=== PATIENT | female | born 1975 | race Caucasian/White ===

== ENCOUNTER 2023-11-01 10:47 | Emergency (ER) | payer OTHER, SELFPAY ==
[2023-11-01 12:23] VITALS: BP 115/62; PULSE 84; RESP 16; TEMP 35.8; O2SAT 97; BMI 22.6
--- NOTE | 2023-11-01 12:26 | ED_ITS ---
HPI - General Adult General Chief complaint: Nausea/Vomiting/Diarrhea Stated complaint: Chest pressure, vomiting Related Data Home Medications Medication Instructions Recorded Confirmed acamprosate 333 mg tablet,delayed 666 mg PO TID 11/01/23 11/01/23 release bupropion HCl 150 mg 24 hr tablet, 150 mg PO QAM 11/01/23 11/01/23 extended release cholecalciferol (vitamin D3) 50 50 mcg PO DAILY 11/01/23 11/01/23 mcg (2,000 unit) tablet citalopram 40 mg tablet 40 mg PO DAILY 11/01/23 11/01/23 clonidine HCl 0.1 mg tablet 0.1 mg PO TID PRN Anxiety 11/01/23 11/01/23 folic acid 1 mg tablet 1 mg PO DAILY 11/01/23 11/01/23 hydroxyzine HCl 25 mg tablet 25 mg PO Q6H PRN anxiety 11/01/23 11/01/23 lipase 2,600-protease 2 cap PO DAILY@1600 11/01/23 11/01/23 8,800-amylase 15,200 unit capsule, delayed rel (Pancreaze) losartan 50 mg tablet 50 mg PO DAILY 11/01/23 11/01/23 magnesium oxide 400 mg (241.3 mg 400 mg PO BID 11/01/23 11/01/23 magnesium) tablet pantoprazole 40 mg tablet,delayed 40 mg PO DAILY 11/01/23 11/01/23 release thiamine HCl (vitamin B1) 100 mg 100 mg PO DAILY 11/01/23 11/01/23 tablet trazodone 100 mg tablet 100 mg PO BEDTIME 11/01/23 11/01/23 Allergies Allergy/AdvReac Type Severity Reaction Status Date / Time No Known Allergies Allergy Verified 11/01/23 10:54 REPLACED BY [facility] Past Medical History Onset Date is defined in the Problem List Problems that require an onset date and time if occurred within 24 hrs of arrival to the ED Aortic Dissection and Rupture; Neurologic impairment; Cardiopulmonary Arrest; Endotracheal Intubation; Insertion or Replacement of Mechanical Circulatory Assist Device Medical History Pancreatic insufficiency Gastroesophageal reflux disease Essential hypertension Mood disorder Cannabis use disorder Hepatitis C Tobacco use disorder Alcohol use disorder Social History Social History Alcohol intake: current Alcohol intake frequency: 3 or more drinks per day Alcohol type: hard liquor Patient Tobacco Use Status: Never used Tobacco Smoked in Last 30 Days: Yes Use of substances other than those prescribed or required for medical reasons: Yes Substance Use Type: Crack/Cocaine and Marijuana Advance Directives: No Advance Directives Information Provided: No Nutrition Risks: No Nutritional Risk Patient : No Physical Exam ED Vital Signs: Vital Signs - 24 hr 11/01/23 12:23 Temperature 96.5 F L Pulse Rate 84 Respiratory Rate 16 Blood Pressure 115/62 Pulse Oximetry 97 Oxygen Delivery Method Room Air BMI result Body Mass Index 22.6 Course Course Course Narrative: rMe: 48-YEAR-OLD FEMALE WITH PMH OF ALCOHOL ABUSE, PANCREATITIS, HYPOMAGNEMIA, HYPOKALEMIA PRESENTS TO ED FOR VOMITING DIARRHEA FOR COUPLE OF DAYS AND ALSO EPIGASTRIC PAIN FOR A COUPLE OF DAYS. EKG READY ORDERED. LABS ORDERED. VITAL SIGNS STABLE PAIN 2:43pm: Patient labs shows transaminitis. Charge nurse Audra made aware to bring patient back into the ED. 6:06pm: Patient left the ED. patient was called and informed she should return to ED immediately due to elevated liver enzymes and also possibility or ultrasound stating cholecystitis. Patient states she will come back to the ER. Medical Decision Making Lab Data 11/01/23 13:24 11/01/23 13:24 Labs: Lab Results 11/01/23 11/01/23 Range/Units 13:24 15:45 WBC 5.8 (4.8-10.8) X10*3/uL RBC 3.88 L (4.20-5.50) X10*6/uL Hgb 12.8 (12.0-16.0) g/dl Hct 36.9 L (37.0-47.0) % MCV 95.1 (80.0-98.0) fL MCH 33.0 (27.0-33.0) pg MCHC 34.7 (31.0-35.0) g/dl RDW 14.5 (11.0-16.0) % Plt Count 189 (160-400) X10*3/uL MPV 9.5 (9.4-12.3) fL Immature Gran % (Auto) 0.2 (0.0-0.4) % Neut % (Auto) 60.5 (45-73) % Lymph % (Auto) 31.1 (20-40) % [place] % (Auto) 6.0 (2-11) % Eos % (Auto) 1.2 (0-4) % Baso % (Auto) 1.0 (0-2) % Lymph # (Auto) 1.8 (1.2-4.9) X10*3/uL [place] # (Auto) 0.4 (0.1-1.2) X10*3/uL Eos # (Auto) 0.1 (0.0-0.4) X10*3/uL Baso # (Auto) 0.1 (0.0-0.2) X10*3/uL Abs Immat Gran (auto) 0.01 (0.00-0.03) X10*3/uL Absolute Neuts (auto) 3.5 (2.0-8.3) x10*3/uL Absolute Nucleated RBC 0.000 (0.0-0.012) X10*3/uL Nucleated RBC % (auto) 0.0 (0.0-0.2) /100WBC PT 15.9 H (11.1-13.3) SEC INR 1.3 H (0.9-1.1) APTT 24.8 L (26.0-36.4) SEC Sodium 139 (135-145) mmol/L Potassium 3.7 (3.3-5.1) mmol/L Chloride 106 (96-108) mmol/L Carbon Dioxide 22 (22-29) mmol/L Anion Gap 15 (12-20) BUN 16 (9-16) mg/dL Creatinine 0.73 (0.5-1.4) mg/dL Estim Creat Clear Calc 73.7 Estimated GFR > 60 Random Glucose 114 (60-115) mg/dL Calcium 8.6 (8.4-10.2) mg/dL Magnesium 1.3 L* (1.6-2.6) mg/dL Total Bilirubin 1.9 H (0.0-1.0) mg/dL AST 1294 H (5-31) U/L ALT 1283 H (0-31) U/L Alkaline Phosphatase 225 H (39-117) U/L Total Creatine Kinase 75 (26-140) U/L Troponin I High Sens < 2.7 (<3.5-17.0) ng/L Total Protein 6.6 (6.5-8.0) g/dL Albumin 3.5 (3.5-5.0) g/dL Lipase 38 (8-78) U/L Ethyl Alcohol 172 mg/dL Hepatitis A IgM Ab Nonreactive (Nonreactive) Hep Bs Antigen Negative (Negative) Hep Bs Antibody REACTIVE (Nonreactive) Hep B Core Total Ab Nonreactive (Nonreactive) Hepatitis C Ab (EIA) Reactive H (Nonreactive) Discharge Plan Discharge Clinical Impression: Transaminitis Patient Disposition: Left W/O Completing Treatment Prescriptions: No Action losartan 50 mg tablet 50 mg PO DAILY clonidine HCl 0.1 mg tablet 0.1 mg PO TID PRN (Reason: Anxiety) citalopram 40 mg tablet 40 mg PO DAILY thiamine HCl (vitamin B1) 100 mg tablet 100 mg PO DAILY magnesium oxide 400 mg (241.3 mg magnesium) tablet 400 mg PO BID trazodone 100 mg tablet 100 mg PO BEDTIME pantoprazole 40 mg tablet,delayed release (DR/EC) 40 mg PO DAILY folic acid 1 mg tablet 1 mg PO DAILY hydroxyzine HCl 25 mg tablet 25 mg PO Q6H PRN (Reason: anxiety) bupropion HCl 150 mg tablet extended release 24 hr 150 mg PO QAM acamprosate 333 mg tablet,delayed release (DR/EC) 666 mg PO TID cholecalciferol (vitamin D3) 50 mcg (2,000 unit) tablet 50 mcg PO DAILY Pancreaze 2,600-8,800- 15,200 unit Capsule,Delayed Release(Dr/Ec) 2 cap PO DAILY@1600 Discharge Date/Time: 11/01/23 18:05
--- NOTE | 2023-11-01 13:55 | PC.NURSE ---
rec crit lab for pt Mg 1.3. Wilbert aware, Charge aware as pt is currently in [facility]
--- NOTE | 2023-11-01 18:03 | PC.NURSE ---
Spoke with patient to return to ER- wanting to hold the bed for over an hour- unable to accommodate- pt is not returning
== END 2023-11-01 18:05 | disposition left against medical advice (07) ==
PROVIDERS: Emergency Provider Emergency Medicine; PCP Internal Medicine
DX: R74.01 Elevation of levels of liver transaminase levels (principal); F10.10 Alcohol abuse, uncomplicated; Y90.6 Blood alcohol level of 120-199 mg/100 ml; R11.2 Nausea with vomiting, unspecified; B19.20 Unspecified viral hepatitis C without hepatic coma; I10 Essential (primary) hypertension; F17.200 Nicotine dependence, unspecified, uncomplicated; Z79.899 Other long term (current) drug therapy
CPT/HCPCS: 36415; 76705; 80053; 80307; 82550; 83690; 83735; 84484; 85025; 85610; 85730; 86704; 86706; 86709; 86803; 87340; 93005; 99283; 99284

== ENCOUNTER → 2023-11-01 10:54 | Outpatient (BNV) | payer OTHER, SELFPAY | PROVIDERS: PCP Internal Medicine; Visit Provider Internal Medicine Cardiovascular Disease | DX: R94.31 Abnormal electrocardiogram [ECG] [EKG] (principal); R07.9 Chest pain, unspecified | CPT/HCPCS: 93010 ==

== ENCOUNTER 2023-11-01 18:34 | Inpatient (IN) | payer OTHER, SELFPAY ==
[2023-11-01 19:20] VITALS: BP 111/77; PULSE 78; RESP 18; TEMP 36.3; O2SAT 96; BMI 22.3
--- NOTE | 2023-11-01 19:27 | ED.GENADULT ---
HPI - General Adult General Chief complaint: Recheck/Abnormal Lab/Rx Stated complaint: abnormal labs, lwt told to return Time Seen by Provider: 11/01/23 19:51 Source: patient Mode of arrival: ambulatory Limitations: no limitations History of Present Illness HPI narrative: 48 yold female with pmh of Hepataitis and Alcohol abuse presents to the ED for epigastric abdominal pain, nausea, vomitting, and diarrhea. Patient last drink was this morning. patient drinks daily. Related Data Home Medications Medication Instructions Recorded Confirmed acamprosate 333 mg tablet,delayed 666 mg PO TID 11/01/23 11/01/23 release bupropion HCl 150 mg 24 hr tablet, 150 mg PO QAM 11/01/23 11/01/23 extended release cholecalciferol (vitamin D3) 50 50 mcg PO DAILY 11/01/23 11/01/23 mcg (2,000 unit) tablet citalopram 40 mg tablet 40 mg PO DAILY 11/01/23 11/01/23 clonidine HCl 0.1 mg tablet 0.1 mg PO TID PRN Anxiety 11/01/23 11/01/23 folic acid 1 mg tablet 1 mg PO DAILY 11/01/23 11/01/23 hydroxyzine HCl 25 mg tablet 25 mg PO Q6H PRN anxiety 11/01/23 11/01/23 lipase 2,600-protease 2 cap PO DAILY@1600 11/01/23 11/01/23 8,800-amylase 15,200 unit capsule, delayed rel (Pancreaze) losartan 50 mg tablet 50 mg PO DAILY 11/01/23 11/01/23 magnesium oxide 400 mg (241.3 mg 400 mg PO BID 11/01/23 11/01/23 magnesium) tablet pantoprazole 40 mg tablet,delayed 40 mg PO DAILY 11/01/23 11/01/23 release thiamine HCl (vitamin B1) 100 mg 100 mg PO DAILY 11/01/23 11/01/23 tablet trazodone 100 mg tablet 100 mg PO BEDTIME 11/01/23 11/01/23 Allergies Allergy/AdvReac Type Severity Reaction Status Date / Time No Known Allergies Allergy Verified 11/01/23 10:54 Review of Systems Review of Systems: Epigastric pain, abdominal pain, nausea, vomitting, Yes all other systems are reviewed and are negative PMFSH Past Medical History Onset Date is defined in the Problem List Problems that require an onset date and time if occurred within 24 hrs of arrival to the ED Aortic Dissection and Rupture; Neurologic impairment; Cardiopulmonary Arrest; Endotracheal Intubation; Insertion or Replacement of Mechanical Circulatory Assist Device Medical History Pancreatic insufficiency Gastroesophageal reflux disease Essential hypertension Mood disorder Cannabis use disorder Hepatitis C Tobacco use disorder Alcohol use disorder Social History Social History Alcohol intake: current Alcohol intake frequency: 3 or more drinks per day Alcohol type: hard liquor Patient Tobacco Use Status: Never used Tobacco Smoked in Last 30 Days: Yes Use of substances other than those prescribed or required for medical reasons: Yes Substance Use Type: Crack/Cocaine and Marijuana Advance Directives: No Advance Directives Information Provided: No Nutrition Risks: No Nutritional Risk Patient : No Physical Exam ED Vital Signs: Vital Signs - 24 hr 11/01/23 19:20 11/01/23 19:50 Temperature 97.4 F 98.1 F Pulse Rate 78 77 Respiratory Rate 18 18 Blood Pressure 111/77 116/59 L Pulse Oximetry 96 98 Oxygen Delivery Method Room Air Room Air BMI result Body Mass Index 22.3 Const General: cooperative, healthy appearing, comfortable, no acute distress, well developed, alert and awake Orientation/consciousness: oriented to person, oriented to place, oriented to time and patient oriented x3 HENMT Head: Yes normal to inspection, Yes No palpable skull fracture present, Yes normocephalic and Yes atraumatic Eyes General: appearance normal, both eyes and all related structures Neck Neck: Yes normal visual inspection, Yes full ROM, Yes no lymphadenopathy, Yes no meningeal signs, Yes trachea midline, Yes supple, No anterior neck swelling and No tender Chest Chest palpation & inspection: normal inspection of the chest and normal palpation of entire chest wall Resp Effort & Inspection: normal respiratory effort and able to speak in complete sentences Auscultation: clear to auscultation bilaterally Cardio Jugular venous distension: no JVD Heart sounds: S1 normal heart sound present and S2 normal heart sound present GI Inspection: Yes normal to inspection Palpation (GI): Soft to palpation, not firm, Tenderness to palpation present (GI) in the epigastrum, no guarding and not rigid General: Yes no CVA tenderness Back/Spine/Pelvis Back: no CVA tenderness Skin General skin exam: no rashes or lesions noted, elasticity normal and turgor normal Neuro General: oriented to person, oriented to place, oriented to time, patient oriented x3, gait normal, tone normal, moves all extremities, Normal light touch and pain sensation, no meningeal signs, no focal motor deficits, CN's II-XI intact bilaterally and normal sensation to monofilament Extrem General: Yes normal to inspection and Yes full ROM Psych Appearance: grossly normal, well kempt and not disheveled Course Course Course Narrative: NILE; 48-year-old female return to the ED after being informed of elevated liver enzymes and abnormal ultrasound which shows possible cholecystitis. Patient is in transaminitis. Patient will be placed in bed. Will consult construction administrative assistant. Medications Administered Generic Name Dose Route Start Last Admin Trade Name Freq PRN Reason Stop Dose Admin Piperacillin Sod/Tazobactam 100 mls @ 200 mls/hr 11/01/23 22:00 11/02/23 04:21 Sod 4.5 gm/ Sodium Chloride IV Infused Q6H SAMANTHA Infusion Sodium Chloride 3 ml 11/02/23 00:00 11/02/23 00:57 0.9 % Sodium Chloride Flush 3 Ml Syringe IVFLUSH 3 ml QSHIFT SAMANTHA Administration Discontinued Medications Generic Name Dose Route Start Last Admin Trade Name Freq PRN Reason Stop Dose Admin Magnesium Sulfate 2 gm in 50 mls @ 25 mls/hr 11/01/23 21:03 11/01/23 23:35 Magnesium Sulfate/H2o IV 11/01/23 23:02 Infused ONCE ONE Infusion Sodium Chloride 1,000 mls @ 999 mls/hr 11/01/23 21:10 11/01/23 22:51 Ns IV 11/01/23 22:10 Infused .Q1H1M ONE Infusion Phenobarbital Sodium 200.4 mg 11/01/23 21:30 11/01/23 21:42 Phenobarbital Sodium 130 Mg/Ml Im Once IM 11/01/23 21:31 200.4 mg ONCE ONE Administration Protocol Phenobarbital Sodium 150.3 mg 11/02/23 00:30 11/02/23 03:45 Phenobarbital Sodium 130 Mg/Ml Vial Im Q3hx2 IM 11/02/23 03:31 150.3 mg Q3H SAMANTHA Administration Protocol Thiamine HCl 100 mg 11/01/23 21:04 11/01/23 21:45 Thiamine Hcl 100 Mg Tablet PO 11/01/23 21:05 100 mg ONCE ONE Administration Medical Decision Making Medical Decision Making [facility] Narrative: 48 yold female with pmh of hepatitis and alcohol abuse presents to the ED epigastric pain, nausea, vomitting, and diarrhea. Labs shows transimitis and Ultrasound shows possible cholecysitis. Case Discussed with Dr. Jerez of Technical Support Analyst who recommends patient be admitted to hospitatlists for MRCP. Spoke with Dr. Tilley of Surgery recommends patient be admitted to hospiatlists and he will follow the case. Phenobarbital and Abdominal CT scan ordered as recommend by Dr. Kam Differential Diagnosis Differential Diagnoses: The differential diagnosis associated with the presentation includes (pancreatitis, cholecytiitis, alcohol abuse, ) Admission/Observation Consideration of admission/observation: Escalation of care including admission/observation considered Consult Healthcare Provider Management of the patient was discussed with: Hospitalist (Dr. Kam) and Type Copy Examiner (Dr. tilley oF surgery, Dr. Jerez oF Gastroenterolgoy) Lab Data [facility] Lab Attestation statement: I reviewed the patient's lab results. 11/02/23 07:01 11/02/23 07:01 Labs: Lab Results 11/01/23 Range/Units 20:36 Acetaminophen < 3 (<30) mcg/mL Independent Interpretation I performed an independent interpretation of an: Ultrasound Radiology Impression Discussion of test interpretation with radiology: I have reviewed the radiologist's reading. External Record Review External record reviewed: Other (Prior ED visit) Discharge Plan Discharge Clinical Impression: Transaminitis Patient Disposition: Admitted As Inpatient
[2023-11-01 19:50] VITALS: BP 116/59; PULSE 77; RESP 18; TEMP 36.7; O2SAT 98
--- NOTE | 2023-11-01 20:45 | PM.IMHP ---
History of Present Illness Date of Service: 11/01/23 Chief Complaint: Abdominal pain This is a 48-year-old female with pertinent history of mood disorder, alcohol use disorder, tobacco use disorder, marijuana use disorder, history of hepatitis-C status post outpatient treatment, gastroesophageal reflux disease, pancreatic insufficiency on p.o. supplementation who presents to the emergency department for evaluation of generalized weakness and abdominal pain. Patient states she has been weak for the last 1 month. Also has been having epigastric and right upper quadrant abdominal pain on and off which is intermittently worse with p.o. intake. Does endorse multiple episodes of nonbloody vomiting and nonbloody diarrhea over the last 1 month. States her last alcoholic drink was on the day of presentation. Does have a history of alcohol withdrawal. Patient states she completed outpatient treatment for hepatitis-C. Denied IV drug use. Patient denies fever, chills, chest discomfort, palpitations, shortness of breath, changes in urinary habits. In the emergency department, patient was found to have elevated transaminases. Imaging concerning for acute cholecystitis. Review of Systems Constitutional: Constitutional: Reports fatigue, Reports lethargy, Reports poor appetite and Reports weakness Cardiovascular: Cardiovascular: Reports no additional cardiovascular complaints Respiratory: Respiratory: Reports no additional respiratory complaints Gastrointestinal: Gastrointestinal: Reports abdominal pain, Reports loose stools, Reports nausea and Reports vomiting Genitourinary: Genitourinary: Reports no additional female genitourinary complaints Neurologic: Reports weakness Endocrine: Endocrine: Reports fatigue [facility] Medical History Pancreatic insufficiency Gastroesophageal reflux disease Essential hypertension Mood disorder Cannabis use disorder Hepatitis C Tobacco use disorder Alcohol use disorder Pertinent family history: No family history of early CAD Social History Alcohol intake: current Alcohol intake frequency: 3 or more drinks per day Alcohol type: hard liquor Smoked in Last 30 Days: Yes Use of substances other than those prescribed or required for medical reasons: Yes Substance Use Type: Crack/Cocaine and Marijuana Advance Directives: No Advance Directives Information Provided: No Patient : No Meds Allergies Allergy/AdvReac Type Severity Reaction Status Date / Time No Known Allergies Allergy Verified 11/01/23 10:54 Home Medications Medication Instructions Recorded Confirmed Last Taken Type acamprosate 333 mg tablet,delayed 666 mg PO TID 11/01/23 11/01/23 11/01/23 History release bupropion HCl 150 mg 24 hr tablet, 150 mg PO QAM 11/01/23 11/01/23 11/01/23 History extended release cholecalciferol (vitamin D3) 50 50 mcg PO DAILY 11/01/23 11/01/23 11/01/23 History mcg (2,000 unit) tablet citalopram 40 mg tablet 40 mg PO DAILY 11/01/23 11/01/23 11/01/23 History clonidine HCl 0.1 mg tablet 0.1 mg PO TID PRN Anxiety 11/01/23 11/01/23 10/31/23 History folic acid 1 mg tablet 1 mg PO DAILY 11/01/23 11/01/23 11/01/23 History hydroxyzine HCl 25 mg tablet 25 mg PO Q6H PRN anxiety 11/01/23 11/01/23 Unknown History lipase 2,600-protease 2 cap PO DAILY@1600 11/01/23 11/01/23 10/31/23 History 8,800-amylase 15,200 unit capsule, delayed rel (Pancreaze) losartan 50 mg tablet 50 mg PO DAILY 11/01/23 11/01/23 11/01/23 History magnesium oxide 400 mg (241.3 mg 400 mg PO BID 11/01/23 11/01/23 11/01/23 History magnesium) tablet pantoprazole 40 mg tablet,delayed 40 mg PO DAILY 11/01/23 11/01/23 11/01/23 History release thiamine HCl (vitamin B1) 100 mg 100 mg PO DAILY 11/01/23 11/01/23 11/01/23 History tablet trazodone 100 mg tablet 100 mg PO BEDTIME 11/01/23 11/01/23 10/31/23 History Physical Exam Vital Signs and Narrative: Vital Signs: Last Vital Signs Temp 98.1 F 11/01/23 19:50 Pulse 77 11/01/23 19:50 Resp 18 11/01/23 19:50 BP 116/59 L 11/01/23 19:50 Pulse Ox 98 11/01/23 19:50 O2 Del Method Room Air 11/01/23 19:50 BMI result Body Mass Index 22.3 Middle-aged female lying in bed in no distress Neck supple, no JVD Regular rate and rhythm, S1-S2 heard Regular breath sounds bilaterally, no wheezing or crackles appreciated Abdomen with right upper quadrant tenderness, no guarding, no rebound tenderness, no rigidity Patient is awake, alert and oriented to self, place, time and person ; no focal motor deficit Psych: Normal mood No pedal edema Assessment and Plan (1) Abdominal pain: Status: Acute (2) Elevated AST (SGOT): Status: Acute (3) Elevated alanine aminotransferase (ALT) level: Status: Acute Plan This is a 48-year-old female with pertinent history of mood disorder, alcohol use disorder, tobacco use disorder, marijuana use disorder, history of hepatitis-C status post outpatient treatment, gastroesophageal reflux disease, pancreatic insufficiency on p.o. supplementation who presents to the emergency department for evaluation of generalized weakness and abdominal pain. #. Abdominal pain: Imaging concerning for acute cholecystitis. Will admit patient and initiate empiric IV antibiotics. No sepsis. Will obtain HIDA scan. Consulting general surgery, appreciate assistance. CBD normal #. Elevated serum aminotransferases: Unclear etiology. Obtaining Tylenol level, hepatitis viral serology, toxicology screen , autoimmune markers and CPK. Consider GI consult if continues to be elevated #. Alcohol use disorder with concerns for withdrawal: Initiated on phenobarb protocol in the ER. Consulting Addiction Team and care team. Patient is on folate and thiamine. #. Tobacco use disorder: Counseled regarding cessation. Patient refused nicotine patch. #. Hepatitis-C: States she completed outpatient treatment #. Gastroesophageal reflux disease: On PPI #. Pancreatic insufficiency: Continue enzyme supplementation #. Hypomagnesemia: Repleted Med rec pending DVT prophylaxis: Mechanical Full Code Admit as inpatient and will require two night minimum hospital stay for IV antibiotics, monitoring of liver function and evaluation for abdominal pain (as above), which is not possible in a lesser acute setting. Specialist consult pending Quality Stroke Does the patient have a stroke diagnosis?: No VTE Prior VTE?: No VTE Risk Level:: Medical - moderate - high VTE Device Contraindication: N/A - Device Ordered VTE Drug Contraindication: Treatment Not Indicated
--- NOTE | 2023-11-01 21:00 | PHA.MEDREC ---
Pharmacy Consult ? Medication Reconciliation Pharmacy has completed the medication reconciliation. Patient had rx bottles. Kimberly Ortiz, JenaroD
[2023-11-01 22:56] VITALS: BP 117/56; PULSE 85; RESP 12; TEMP 36.6; O2SAT 95
--- NOTE | 2023-11-02 01:56 | PC.NURSE ---
pt resting comfortably in bed, eyes closed, breathing even and unlabored. no apparent distress at this time. awaiting bed assignment
--- NOTE | 2023-11-02 04:55 | PC.NURSE ---
pt ambulated to bathroom independently, provided urine sample at this time
[2023-11-02 05:16] VITALS: BP 149/86; PULSE 66; RESP 16; TEMP 36.4; O2SAT 98
--- NOTE | 2023-11-02 06:28 | PC.NURSE ---
17 bottles of pills taken out of pt's bag, all non- controlled medications. meds stored in pharmacy bag and brought to pharmacy
--- NOTE | 2023-11-02 07:55 | PM.CNGS ---
History of Present Illness Consult details Consult date: 11/02/23 Requesting physician: Tabby Kam Narrative: 48-year-old female patient with history of alcohol abuse, hepatitis-C, GERD, pancreatic insufficiency present to the emergency department with complaints of generalized weakness and abdominal pain. Patient was seen in emergency department was found to be extremely sleepy but would arouse to voice. She reports the abdominal pain mainly in the right upper quadrant with associated nausea and vomiting. She also reports diarrhea for the past month. She continues to drink alcohol. She denies fever, chills, or bloody stool. Workup in the emergency department revealed markedly elevated transaminases. Total bilirubin was also elevated. CT abdomen and pelvis revealed a normal appearing gallbladder without calcified stones or evidence of wall thickening. Ultrasound however revealed possible trabeculation of the gallbladder wall again with no stones appreciated. No CBD dilatation was identified. There was however a sonographic Lockett sign. She is admitted to the hospital service and is awaiting MRCP. Review of Systems Review of Systems: Yes Unobtainable due to mental status PMFSH Past Medical History Medical History Pancreatic insufficiency Gastroesophageal reflux disease Essential hypertension Mood disorder Cannabis use disorder Hepatitis C Tobacco use disorder Alcohol use disorder Social History Social History Alcohol intake: current Alcohol intake frequency: 3 or more drinks per day Alcohol type: hard liquor Patient Tobacco Use Status: Never used Tobacco Smoked in Last 30 Days: Yes Use of substances other than those prescribed or required for medical reasons: Yes Substance Use Type: Crack/Cocaine and Marijuana Advance Directives: No Advance Directives Information Provided: No Nutrition Risks: No Nutritional Risk Patient : No Meds Allergies Allergy/AdvReac Type Severity Reaction Status Date / Time No Known Allergies Allergy Verified 11/01/23 10:54 Active Medications: Current Medications Acetaminophen (Acetaminophen 325 Mg Tablet) 650 mg PO Q6H PRN PRN Reason: Pain, Mild (Pain Scale 1-3) Bupropion HCl (Bupropion Hcl Xl 150 Mg Tab.Er.24h) 150 mg PO DAILY [facility] Enoxaparin Sodium (Enoxaparin Sodium 40 Mg/0.4 Ml Syringe) 40 mg SUBCUT Q24H [facility] Escitalopram Oxalate (Escitalopram Oxalate 20 Mg Tablet) 20 mg PO DAILY [facility] Folic Acid (Folic Acid 1 Mg Tablet) 1 mg PO DAILY [facility] Hydroxyzine HCl (Hydroxyzine Hcl 25 Mg Tablet) 25 mg PO Q6H PRN PRN Reason: anxiety Piperacillin Sod/Tazobactam (Sod 4.5 gm/ Sodium Chloride) 100 mls @ 200 mls/hr IV Q6H [facility] Last Infusion: 11/02/23 04:21 Dose: Infused Losartan Potassium (Losartan Potassium 50 Mg Tablet) 50 mg PO DAILY [facility]; Protocol Magnesium Oxide (Magnesium Oxide 400 Mg Tablet) 400 mg PO BID [facility] Melatonin (Melatonin 3 Mg Tablet) 6 mg PO BEDTIME PRN PRN Reason: Insomnia Ondansetron HCl (Ondansetron Hcl 4 Mg/2 Ml Vial) 4 mg IVPUSH Q8H PRN PRN Reason: Nausea and Vomiting Pharmacy Consult (Consult Rx Etoh Phenob Im/Po) 1 each MISCELLANE ONCE PRN; Protocol PRN Reason: Consult order Phenobarbital (Phenobarbital 15 Mg Tablet) 45 mg PO BID [facility]; Protocol Stop: 11/03/23 21:01 Phenobarbital (Phenobarbital 15 Mg Tablet) 15 mg PO BID [facility]; Protocol Stop: 11/05/23 21:01 Phenobarbital (Phenobarbital 15 Mg Tablet) 15 mg PO DAILY [facility]; Protocol Stop: 11/07/23 09:01 Sodium Chloride (0.9 % Sodium Chloride Flush 3 Ml Syringe) 3 ml IVFLUSH QSHIFT [facility] Last Admin: 11/02/23 00:57 Dose: 3 ml Thiamine HCl (Thiamine Hcl 100 Mg Tablet) 100 mg PO DAILY [facility] Trazodone HCl (Trazodone Hcl 100 Mg Tablet) 100 mg PO BEDTIME [facility] Home Medications Medication Instructions Recorded Confirmed Last Taken Type acamprosate 333 mg tablet,delayed 666 mg PO TID 11/01/23 11/01/23 11/01/23 History release bupropion HCl 150 mg 24 hr tablet, 150 mg PO QAM 11/01/23 11/01/23 11/01/23 History extended release cholecalciferol (vitamin D3) 50 50 mcg PO DAILY 11/01/23 11/01/23 11/01/23 History mcg (2,000 unit) tablet citalopram 40 mg tablet 40 mg PO DAILY 11/01/23 11/01/23 11/01/23 History clonidine HCl 0.1 mg tablet 0.1 mg PO TID PRN Anxiety 11/01/23 11/01/23 10/31/23 History folic acid 1 mg tablet 1 mg PO DAILY 11/01/23 11/01/23 11/01/23 History hydroxyzine HCl 25 mg tablet 25 mg PO Q6H PRN anxiety 11/01/23 11/01/23 Unknown History lipase 2,600-protease 2 cap PO DAILY@1600 11/01/23 11/01/23 10/31/23 History 8,800-amylase 15,200 unit capsule, delayed rel (Pancreaze) losartan 50 mg tablet 50 mg PO DAILY 11/01/23 11/01/23 11/01/23 History magnesium oxide 400 mg (241.3 mg 400 mg PO BID 11/01/23 11/01/23 11/01/23 History magnesium) tablet pantoprazole 40 mg tablet,delayed 40 mg PO DAILY 11/01/23 11/01/23 11/01/23 History release thiamine HCl (vitamin B1) 100 mg 100 mg PO DAILY 11/01/23 11/01/23 11/01/23 History tablet trazodone 100 mg tablet 100 mg PO BEDTIME 11/01/23 11/01/23 10/31/23 History Physical Exam Vital Signs: Vital Signs: Last Vital Signs Temp 97.5 F 11/02/23 05:16 Pulse 66 11/02/23 05:16 Resp 16 11/02/23 05:16 BP 149/86 H 11/02/23 05:16 Pulse Ox 98 11/02/23 05:16 O2 Del Method Room Air 11/02/23 05:16 BMI result Body Mass Index 22.3 Const: General: no acute distress and lethargic Nutritional Appearance: average body habitus Orientation/consciousness: lethargic Limitations: altered mental status HEENT: Head: Yes normocephalic and Yes atraumatic Ears: hearing grossly normal bilaterally Eyes: Sclerae: sclerae normal Resp: Effort & Inspection: normal respiratory effort, no audible wheezes, no cough and no respiratory distress GI: Inspection: Yes normal to inspection Palpation (GI): Soft to palpation, Tenderness to palpation present (GI) in the RUQ; Lockett's sign negative, no guarding, not rigid and Hepatomegaly present Percussion: Yes normal to percussion Auscultation: normal bowel sounds Rectal Exam - Female: deferred Skin: General skin exam: no rashes or lesions noted Extrem: General: Yes no clubbing, cyanosis or edema Results Labs 11/02/23 07:01 11/02/23 07:01 Labs: Abnormal lab results 11/01/23 11/02/23 11/02/23 Range/Units 22:29 05:01 07:01 WBC 4.1 L (4.8-10.8) X10*3/uL RBC 3.32 L (4.20-5.50) X10*6/uL Hgb 11.1 L (12.0-16.0) g/dl Hct 31.5 L (37.0-47.0) % MCH 33.4 H (27.0-33.0) pg MCHC 35.2 H (31.0-35.0) g/dl Plt Count 137 L D (160-400) X10*3/uL Lymph % (Auto) 42.3 H (20-40) % Absolute Neuts (auto) 1.9 L (2.0-8.3) x10*3/uL Potassium 3.1 L (3.3-5.1) mmol/L Anion Gap 11 L (12-20) Calcium 7.9 L D (8.4-10.2) mg/dL Magnesium 1.5 L (1.6-2.6) mg/dL Total Bilirubin 1.6 H (0.0-1.0) mg/dL AST 790 H (5-31) U/L ALT 889 H (0-31) U/L Alkaline Phosphatase 217 H (39-117) U/L Total Protein 5.6 L (6.5-8.0) g/dL Albumin 2.9 L (3.5-5.0) g/dL Ur Leukocyte Esterase Small (1+) H (Negative) Urine WBC 6-10 H (0-5) /HPF Ur Barbiturates Screen POSITIVE H (Not Detect) U Benzodiazepines Scrn POSITIVE H (Not Detect) U Marijuana (THC) Screen POSITIVE H (Not Detect) Hepatitis C Ab (EIA) Reactive H (Nonreactive) Short CBC 11/02/23 Range/Units 07:01 WBC 4.1 L (4.8-10.8) X10*3/uL Hgb 11.1 L (12.0-16.0) g/dl Hct 31.5 L (37.0-47.0) % Plt Count 137 L D (160-400) X10*3/uL BMP 11/02/23 07:01 Sodium 139 Potassium 3.1 L Chloride 108 Carbon Dioxide 23 BUN 13 Creatinine 0.72 Calcium 7.9 L D Cardiac Enzymes 11/01/23 Range/Units 22:29 Total Creatine Kinase 124 (26-140) U/L Liver Function 11/02/23 Range/Units 07:01 Total Bilirubin 1.6 H (0.0-1.0) mg/dL AST 790 H (5-31) U/L ALT 889 H (0-31) U/L Alkaline Phosphatase 217 H (39-117) U/L Albumin 2.9 L (3.5-5.0) g/dL Urine 11/02/23 Range/Units 05:01 Urine Color Yellow Urine Appearance Clear Urine pH 6.0 (5.0-9.0) Ur Specific [place] 1.020 (1.005-1.025) Urine Protein Negative (Neg-Trace) mg/dL Urine Glucose (UA) Negative (Negative) mg/dL All other labs normal. Imaging Abdomen CT scan report/results: image reviewed Abdominal ultrasound report/results: image reviewed Assessment and Plan (1) Transaminitis: Status: Acute (2) Pancreatic insufficiency: Status: Acute (3) Abdominal pain: Qualifiers: Abdominal location: right upper quadrant Qualified Code(s): R10.11 - Right upper quadrant pain Status: Acute Plan 48-year-old female patient presenting with history of alcohol use, hepatitis-C found to have elevated transaminase levels and abdominal pain in the right upper quadrant. Workup with CT is negative for cholelithiasis or wall thickening however ultrasound reveals trabeculation of the gallbladder wall possibly due to cholecystitis. Patient's examination at this time is unreliable due to her somnolence. There is not currently a Lockett sign to indicate acute cholecystitis. Suspect this is more related to her underlying liver disease and alcohol dependence. If cholecystitis is still suspected a recommend HIDA scan to check for normal filling of the gallbladder. Procedures Date of Service Date of Service: 11/02/23
--- NOTE | 2023-11-02 07:59 | PC.NURSE ---
pt resting, calm, coop, ciwa 5, rails padded- ok'd by boni hill. to use non-standard seizure padding as no more seizure pads left. no seizure activity
--- NOTE | 2023-11-02 08:00 | PC.NURSE ---
pt resting, calm, coop, ciwa 5, rails padded- ok'd by boni hill. to use non-standard seizure padding as no more seizure pads left. no seizure activity. pt going off floor to [facility].
--- NOTE | 2023-11-02 08:26 | PM.GICN ---
History of Present Illness Data of Consult Service Date: 11/02/23 Primary Care Provider: Ayala Patton MD [facility] Reason for consult: elevated LFTs 48 YF with mood disorder, alcohol use disorder, tobacco use disorder, marijuana use disorder, history of hepatitis-C status post outpatient treatment, gastroesophageal reflux disease, pancreatic insufficiency (on pancreatic enzyme replacement) [place] [facility] [place] with generalized weakness and abdominal pain for the past 3-4 weeks. Pt complains of epigastric and right upper quadrant abdominal pain (upto 8/10 in intesnsity) on and off which is intermittently worse with p.o. intake and when she has a BM. Pt also complains of anal discomfort which resolves after she has a BM. Does endorse multiple episodes of nonbloody vomiting and nonbloody diarrhea over the last 1 month. Patient admits to chills and sweating and denies fever, chest discomfort, palpitations, shortness of breath, changes in urinary habits. Pt is followed by Dr Sheets ([facility]) and takes Pantoprazole for GERD symptoms and pancreatic enzymes for pancreatic insufficiency. Pt reports she has been diagnosed with hemochromatosis and is not on any treatment at present. She admits to smoking 1/2 PPD of cigarettes since age 16 and also smokes marijuana. States her last alcoholic drink was at 4 pm on the day of presentation. Does have a history of alcohol withdrawal complicated by seizures in the past. Pt admits to being treated at inpatient rehab (at [facility]) several times and longest she could stay sober was 24 days. She had an appt today which has been rescheduled to Nov, 2023. Pt notes poor appetite with wt loss from 120 to 104 lbs. She admits to drinking 6 shots of vodka per day for the past 7-8 years (was drinking beer prior to that). Patient is single and lives with her son. 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 Per patient she was fired from her job and she applied for [place] due to her illness. Family hx is positive for alcoholism in her Mom and Mom's side of the family. Dad of colon or prostate cancer (?related to agent orange) in his 70s Patient states she completed outpatient treatment for hepatitis-C in 2004 or ? 2015 (interfereon and Ribavarin x 6 months). Denied IV drug use. Pt reports having a colonoscopy in January 2023 and 9 polyps were removed. In the emergency department, patient was found to have elevated transaminases. Imaging concerning for acute cholecystitis. 11/01/[address] SCAN SHOWED: 1. Mild hepatomegaly with probable hepatic steatosis. 2. Colonic diverticulosis without diverticulitis. 3. IUD in good position in the uterus. 4. Other incidental findings as described above. 5. The gallbladder appears normal on the CT scan Review of Systems Review of Systems: Yes all other systems are reviewed and are negative [facility] Past Medical History Medical History Pancreatic insufficiency Gastroesophageal reflux disease Essential hypertension Mood disorder Cannabis use disorder Hepatitis C Tobacco use disorder Alcohol use disorder Social History Social History Household Members: Family and None Housing: House Alcohol intake: current Alcohol intake frequency: 0-2 drinks per day Alcohol type: hard liquor Patient Tobacco Use Status: Current everyday Tobacco user Tobacco use type: Cigarette Cigarettes Per Day: 11 e-Cigarette/Vaping Use: Currently Using Second Hand Smoke Exposure: No Substance Use Type: Marijuana Advance Directives Date on File: 12/10/23 service: No Meds Allergies Allergy/AdvReac Type Severity Reaction Status Date / Time No Known Allergies Allergy Verified 12/09/23 22:55 Active Medications: Current Medications Acetaminophen (Acetaminophen 325 Mg Tablet) 650 mg PO Q6H PRN PRN Reason: Pain, Mild (Pain Scale 1-3) Bupropion HCl (Bupropion Hcl Xl 150 Mg Tab.Er.24h) 150 mg PO DAILY [facility] Enoxaparin Sodium (Enoxaparin Sodium 40 Mg/0.4 Ml Syringe) 40 mg SUBCUT Q24H [facility] Escitalopram Oxalate (Escitalopram Oxalate 20 Mg Tablet) 20 mg PO DAILY [facility] Folic Acid (Folic Acid 1 Mg Tablet) 1 mg PO DAILY [facility] Hydroxyzine HCl (Hydroxyzine Hcl 25 Mg Tablet) 25 mg PO Q6H PRN PRN Reason: anxiety Piperacillin Sod/Tazobactam (Sod 4.5 gm/ Sodium Chloride) 100 mls @ 200 mls/hr IV Q6H [facility] Last Infusion: 11/02/23 04:21 Dose: Infused Losartan Potassium (Losartan Potassium 50 Mg Tablet) 50 mg PO DAILY [facility]; Protocol Magnesium Oxide (Magnesium Oxide 400 Mg Tablet) 400 mg PO BID [facility] Melatonin (Melatonin 3 Mg Tablet) 6 mg PO BEDTIME PRN PRN Reason: Insomnia Ondansetron HCl (Ondansetron Hcl 4 Mg/2 Ml Vial) 4 mg IVPUSH Q8H PRN PRN Reason: Nausea and Vomiting Pharmacy Consult (Consult Rx Etoh Phenob Im/Po) 1 each MISCELLANE ONCE [facility]; Protocol PRN Reason: Consult order Phenobarbital (Phenobarbital 15 Mg Tablet) 45 mg PO BID [facility]; Protocol Stop: 11/03/23 21:01 Phenobarbital (Phenobarbital 15 Mg Tablet) 15 mg PO BID [facility]; Protocol Stop: 11/05/23 21:01 Phenobarbital (Phenobarbital 15 Mg Tablet) 15 mg PO DAILY [facility]; Protocol Stop: 11/07/23 09:01 Sodium Chloride (0.9 % Sodium Chloride Flush 3 Ml Syringe) [facility] Last Admin: 11/02/23 00:57 Dose: 3 ml Thiamine HCl (Thiamine Hcl 100 Mg Tablet) 100 mg PO DAILY [facility] Trazodone HCl (Trazodone Hcl 100 Mg Tablet) 100 mg PO BEDTIME [facility] Home Medications Medication Instructions Recorded Confirmed Last Taken Type acamprosate 333 mg tablet,delayed 666 mg PO TID 11/01/23 12/10/23 11/01/23 History release cholecalciferol (vitamin D3) 50 50 mcg PO DAILY 11/01/23 12/10/23 11/01/23 History mcg (2,000 unit) tablet folic acid 1 mg tablet 1 mg PO DAILY 11/01/23 12/10/23 11/01/23 History hydroxyzine HCl 25 mg tablet 25 mg PO Q6H PRN anxiety 11/01/23 12/10/23 Unknown History losartan 50 mg tablet 50 mg PO DAILY 11/01/23 12/10/23 11/01/23 History magnesium oxide 400 mg (241.3 mg 400 mg PO BID 11/01/23 12/10/23 11/01/23 History magnesium) tablet pantoprazole 40 mg tablet,delayed 40 mg PO DAILY 11/01/23 12/10/23 11/01/23 History release thiamine HCl (vitamin B1) 100 mg 100 mg PO DAILY 11/01/23 12/10/23 11/01/23 History tablet trazodone 100 mg tablet 100 mg PO BEDTIME 11/01/23 12/10/23 10/31/23 History clonidine HCl 0.1 mg tablet 0.1 mg PO TID PRN Anxiety 12/10/23 12/10/23 Unknown History [id number] 1 cap PO TID 12/10/23 12/10/23 Unknown History 6,000-19,000-30,000 unit capsule,delayed rel (Creon) metoprolol succinate 25 mg 100 mg PO DAILY 12/10/23 12/10/23 Unknown History tablet,extended release 24 hr Physical Exam Vital Signs: Vital Signs: Last Vital Signs Temp 97.5 F 11/02/23 05:16 Pulse 66 11/02/23 05:16 Resp 16 11/02/23 05:16 BP 149/86 H 11/02/23 05:16 Pulse Ox 98 11/02/23 05:16 O2 Del Method Room Air 11/02/23 05:16 BMI result Body Mass Index 22.3 General: AO X 3, no acute distress Resp: CTA bilateral, no accessory muscles used CVS: S1,S2,RRR GI: soft, ruq tender, non distended Neuro: motor grossly intact, alert, mild tremor Psych: appropriate affect, appropriate insight Results Labs 11/05/23 05:49 11/05/23 05:49 Labs: Short CBC 11/02/23 Range/Units 07:01 WBC 4.1 L (4.8-10.8) X10*3/uL Hgb 11.1 L (12.0-16.0) g/dl Hct 31.5 L (37.0-47.0) % Plt Count 137 L D (160-400) X10*3/uL BMP 11/02/23 07:01 Sodium 139 Potassium 3.1 L Chloride 108 Carbon Dioxide 23 BUN 13 Creatinine 0.72 Calcium 7.9 L D Cardiac Enzymes 11/01/23 Range/Units 22:29 Total Creatine Kinase 124 (26-140) U/L Liver Function 11/02/23 Range/Units 07:01 Total Bilirubin 1.6 H (0.0-1.0) mg/dL AST 790 H (5-31) U/L ALT 889 H (0-31) U/L Alkaline Phosphatase 217 H (39-117) U/L Albumin 2.9 L (3.5-5.0) g/dL Urine 11/02/23 Range/Units 05:01 Urine Color Yellow Urine Appearance Clear Urine pH 6.0 (5.0-9.0) Ur Specific [place] 1.020 (1.005-1.025) Urine Protein Negative (Neg-Trace) mg/dL Urine Glucose (UA) Negative (Negative) mg/dL Assessment and Plan (1) Abdominal pain: Qualifiers: Abdominal location: right upper quadrant Qualified Code(s): R10.11 - Right upper quadrant pain Status: Resolved (2) Pancreatic insufficiency: Status: Acute (3) Gastroesophageal reflux disease: Status: Resolved (4) Alcohol use disorder: Status: Acute (5) Elevated LFTs: Status: Resolved Plan 48 YF with mood disorder, alcohol use disorder, tobacco use disorder, marijuana use disorder, history of hepatitis-C status post outpatient treatment, gastroesophageal reflux disease, pancreatic insufficiency (on pancreatic enzyme replacement) [place] [facility] [place] with generalized weakness and abdominal pain for the past 3-4 weeks. Pt is followed by Dr Sheets ([facility]) and takes Pantoprazole for GERD symptoms and pancreatic enzymes for pancreatic insufficiency. Pt reports she has been diagnosed with hemochromatosis and is not on any treatment at present. She admits to drinking 6 shots of vodka per day for the past 7-8 years (was drinking beer prior to that States her last alcoholic drink was at 4 pm on the day of presentation. Does have a history of alcohol withdrawal complicated by seizures in the past. Pt admits to being treated at inpatient rehab (at [facility]) several times and longest she could stay sober was 24 days. She had an appt today which has been rescheduled to Nov, 2023. Patient states she completed outpatient treatment for hepatitis-C in 2004 or ? 2015 (interfereon and Ribavarin x 6 months). Denied IV drug use. Elevated LFTs likely due to a combination of ETOH abuse +/- hemochromatosis. Need to rule out viral or drug induced hepatitis (of note acetaminiphen level was not elevated on admission). Repeat LFTs today are improving. RECOMMENDATIONS: 1. Agree with IV fluids, IV antiemetics and CIWA protocol for ETOH withdrawl 2. Iron studies and Hep C Viral load (added to am labs) 3. HIDA scan as advised by General Surgery, 4. Continue pancreatic enzymes with meals ADDENDUM: 11/05/23 HOSPITAL COURSE Patient was admitted for alcohol dependence with acute alcoholic hepatitis and withdrawal. She was initially evaluated for acute cholecystitis, however felt to be clinically unlikely and height and not consistent with cholecystitis. Her LFTs improved as did her appetite and p.o. tolerance. She was given phenobarbital for withdrawal and symptoms resolved. For chronic pancreatic insufficiency she was continued on pancreatic enzymes. For hypertension was continue losartan. For hypokalemia she received replacement for hypomagnesemia she received replacement. Patient is feeling better will be discharged home. Procedures Date of Service Date of Service: 12/10/23
--- NOTE | 2023-11-02 11:15 | PC.NURSE ---
[place] [facility]
--- NOTE | 2023-11-02 11:28 | HO.PM.IMPN ---
Subjective Subjective Date of Service: 11/02/23 Interval History: ruq pain, hungry, tremor Physical Exam Vital Signs: Vital Signs: Last Vital Signs Temp 97.5 F 11/02/23 05:16 Pulse 66 11/02/23 05:16 Resp 16 11/02/23 05:16 BP 149/86 H 11/02/23 05:16 Pulse Ox 98 11/02/23 05:16 O2 Del Method Room Air 11/02/23 05:16 BMI result Body Mass Index 22.3 General: AO X 3, no acute distress Resp: CTA bilateral, no accessory muscles used CVS: S1,S2,RRR GI: soft, ruq tender, non distended Neuro: motor grossly intact, alert, mild tremor Psych: appropriate affect, appropriate insight Objective Data Active Medications Acetaminophen (Acetaminophen 325 Mg Tablet) 650 mg PO Q6H PRN PRN Reason: Pain, Mild (Pain Scale 1-3) Bupropion HCl (Bupropion Hcl Xl 150 Mg Tab.Er.24h) 150 mg PO DAILY [facility] Enoxaparin Sodium (Enoxaparin Sodium 40 Mg/0.4 Ml Syringe) 40 mg SUBCUT Q24H [facility] Escitalopram Oxalate (Escitalopram Oxalate 20 Mg Tablet) 20 mg PO DAILY [facility] Folic Acid (Folic Acid 1 Mg Tablet) 1 mg PO DAILY [facility] Hydroxyzine HCl (Hydroxyzine Hcl 25 Mg Tablet) 25 mg PO Q6H PRN PRN Reason: anxiety Piperacillin Sod/Tazobactam (Sod 4.5 gm/ Sodium Chloride) 100 mls @ 200 mls/hr IV Q6H [facility] Last Infusion: 11/02/23 04:21 Dose: Infused Documented By: JOSH Losartan Potassium (Losartan Potassium 50 Mg Tablet) 50 mg PO DAILY [facility]; Protocol Magnesium Oxide (Magnesium Oxide 400 Mg Tablet) 400 mg PO BID [facility] Melatonin (Melatonin 3 Mg Tablet) 6 mg PO BEDTIME PRN PRN Reason: Insomnia Ondansetron HCl (Ondansetron Hcl 4 Mg/2 Ml Vial) 4 mg IVPUSH Q8H PRN PRN Reason: Nausea and Vomiting Pharmacy Consult (Consult Rx Etoh Phenob Im/Po) 1 each MISCELLANE ONCE PRN; Protocol PRN Reason: Consult order Phenobarbital (Phenobarbital 15 Mg Tablet) 45 mg PO BID [facility]; Protocol Stop: 11/03/23 21:01 Phenobarbital (Phenobarbital 15 Mg Tablet) 15 mg PO BID [facility]; Protocol Stop: 11/05/23 21:01 Phenobarbital (Phenobarbital 15 Mg Tablet) 15 mg PO DAILY [facility]; Protocol Stop: 11/07/23 09:01 Potassium Chloride (Potassium Chloride Er 20 Meq Tab.Er.Prt) 40 meq PO ONCE ONE Stop: 11/02/23 11:18 Sodium Chloride (0.9 % Sodium Chloride Flush 3 Ml Syringe) 3 ml IVFLUSH QSHIFT [facility] Last Admin: 11/02/23 00:57 Dose: 3 ml Documented By: JOSH Thiamine HCl (Thiamine Hcl 100 Mg Tablet) 100 mg PO DAILY [facility] Trazodone HCl (Trazodone Hcl 100 Mg Tablet) 100 mg PO BEDTIME [facility] Labs 11/02/23 07:01 11/02/23 07:01 Labs: Laboratory Results - last 24 hr 11/01/23 11/01/23 11/02/23 20:36 22:29 05:01 MCV MCH MCHC RDW Plt Count MPV Immature Gran % (Auto) Neut % (Auto) Lymph % (Auto) [place] % (Auto) Eos % (Auto) Baso % (Auto) Lymph # (Auto) [place] # (Auto) Eos # (Auto) Baso # (Auto) Abs Immat Gran (auto) Absolute Neuts (auto) Absolute Nucleated RBC Nucleated RBC % (auto) Anion Gap Estim Creat Clear Calc Estimated GFR Random Glucose Calcium Magnesium Total Bilirubin AST ALT Alkaline Phosphatase Total Creatine Kinase 124 Total Protein Albumin Beta HCG, Quant < 2 Urine Color Yellow Urine Appearance Clear Urine pH 6.0 Ur Specific [place] 1.020 Urine Protein Negative Urine Glucose (UA) Negative Urine Ketones Negative Urine Blood Negative Urine Nitrite Negative Ur Leukocyte Esterase Small (1+) H Urine RBC 0-2 Urine WBC 6-10 H Ur Squamous Epith Cells 11-20 Urine Bacteria 2+ Hyaline Casts 0-2 Urine Opiates Screen Not Detected Urine Fentanyl Screen Not Detected Acetaminophen < 3 Ur Barbiturates Screen POSITIVE H Ur Phencyclidine Scrn Not Detected Ur Amphetamines Screen Not Detected U Benzodiazepines Scrn POSITIVE H Urine Cocaine Screen Not Detected U Marijuana (THC) Screen POSITIVE H Hepatitis A IgM Ab Nonreactive Hep Bs Antigen Negative Hep Bs Antibody REACTIVE Hep B Core Total Ab Nonreactive Hepatitis C Ab (EIA) Reactive H 11/02/23 07:01 MCV 94.9 MCH 33.4 H MCHC 35.2 H RDW 14.4 Plt Count 137 L D MPV 9.5 Immature Gran % (Auto) 0.2 Neut % (Auto) 46.3 Lymph % (Auto) 42.3 H [place] % (Auto) 6.8 Eos % (Auto) 3.4 Baso % (Auto) 1.0 Lymph # (Auto) 1.8 [place] # (Auto) 0.3 Eos # (Auto) 0.1 Baso # (Auto) 0.0 Abs Immat Gran (auto) 0.01 Absolute Neuts (auto) 1.9 L Absolute Nucleated RBC 0.000 Nucleated RBC % (auto) 0.0 Anion Gap 11 L Estim Creat Clear Calc 74.7 Estimated GFR > 60 Random Glucose 97 Calcium 7.9 L D Magnesium 1.5 L Total Bilirubin 1.6 H AST 790 H ALT 889 H Alkaline Phosphatase 217 H Total Creatine Kinase Total Protein 5.6 L Albumin 2.9 L Beta HCG, Quant Urine Color Urine Appearance Urine pH Ur Specific [place] Urine Protein Urine Glucose (UA) Urine Ketones Urine Blood Urine Nitrite Ur Leukocyte Esterase Urine RBC Urine WBC Ur Squamous Epith Cells Urine Bacteria Hyaline Casts Urine Opiates Screen Urine Fentanyl Screen Acetaminophen Ur Barbiturates Screen Ur Phencyclidine Scrn Ur Amphetamines Screen U Benzodiazepines Scrn Urine Cocaine Screen U Marijuana (THC) Screen Hepatitis A IgM Ab Hep Bs Antigen Hep Bs Antibody Hep B Core Total Ab Hepatitis C Ab (EIA) Assessment and Plan (1) Transaminitis: Status: Acute Plan 48F PMH etoh dependence, htn, chronic pancreatic insufficiency, hcv s/p treatment, mood disorder, presented with abd pain Alcohol dependence with acute alcoholic hepatitis and withdrawal Monitor LFTs, encourage p.o. intake Surgery appreciated, acute cholecystitis unlikely Will DC IV antibiotic Continue phenobarbital, monitor CIWA Chronic Pancreatic insufficiency Continue pancreatic enzymes Hypertension Losartan Hypomagnesemia Replace and monitor DVT prophylaxis with Lovenox Full Code reason for continued hospitalization: awaiting po tolerance Quality Stroke Does the patient have a stroke diagnosis?: No VTE Prior VTE?: No VTE Risk Level:: Medical - moderate - high VTE Device Contraindication: N/A - Device Ordered VTE Drug Contraindication: Treatment Not Indicated
[2023-11-02 11:49] VITALS: BP 163/97; PULSE 64; RESP 16; TEMP 36.1; O2SAT 98
--- NOTE | 2023-11-02 12:03 | PC.NURSE ---
provider sundar Bejarano
[2023-11-02 14:00] VITALS: TEMP 36.1
--- NOTE | 2023-11-02 14:36 | MHC.CM.PN ---
PATIENT IS NOT RESPONDING TO THIS PAPER SAMPLE CLERK'S ATTEMPTS TO ASSESS. SHE IS SLEEPING (EQUAL AND BILATERAL CHEST RISE AND FALL WITH NO RESPIRATORY DISTRESS NOTED) PLAN IS FOR ADMIT CASE MANAGEMENT AVAILABLE TO ASSESS AT A MORE APPROPRIATE TIME
[2023-11-02 15:10] VITALS: BP 143/78; PULSE 66; RESP 16; O2SAT 98
--- NOTE | 2023-11-02 15:37 | PC.NURSE ---
report given to kahlil
--- NOTE | 2023-11-02 15:38 | PC.NURSE ---
transport tere[address] on way
[2023-11-02 17:04] VITALS: BP 161/86; PULSE 68; RESP 18; TEMP 36.8; O2SAT 97
[2023-11-02 19:46] VITALS: BP 149/74; PULSE 66; RESP 18; TEMP 36.9; O2SAT 96
[2023-11-03 04:00] VITALS: BP 153/74; PULSE 54; RESP 14; TEMP 37.2; O2SAT 96
[2023-11-03 08:00] VITALS: BP 146/74; PULSE 60; RESP 16; TEMP 36.1; O2SAT 97
--- NOTE | 2023-11-03 10:10 | HO.PM.IMPN ---
Subjective Subjective Date of Service: 11/03/23 Interval History: improving, tolerated solids Physical Exam Vital Signs: Vital Signs: Last Vital Signs Temp 96.9 F 11/03/23 08:00 Pulse 60 11/03/23 08:00 Resp 16 11/03/23 08:00 BP 146/74 H 11/03/23 08:00 Pulse Ox 97 11/03/23 08:00 O2 Del Method Room Air 11/03/23 08:00 BMI result Body Mass Index 22.3 General: AO X 3, no acute distress Resp: CTA bilateral, no accessory muscles used CVS: S1,S2,RRR GI: soft, non tender, non distended Neuro: motor grossly intact, alert Psych: appropriate affect, appropriate insight Objective Data Active Medications Acetaminophen (Acetaminophen 325 Mg Tablet) 650 mg PO Q6H PRN PRN Reason: Pain, Mild (Pain Scale 1-3) Lipase/Protease/Amylase (Lipase/Prot/Amylase 12/38/60k Capsule.Dr) 1 cap PO TIDWM [facility] Last Admin: 11/03/23 08:34 Dose: 1 cap Documented By: JESSICA Bupropion HCl (Bupropion Hcl Xl 150 Mg Tab.Er.24h) 150 mg PO DAILY [facility] Last Admin: 11/03/23 08:34 Dose: 150 mg Documented By: JESSICA Enoxaparin Sodium (Enoxaparin Sodium 40 Mg/0.4 Ml Syringe) 40 mg SUBCUT Q24H [facility] Last Admin: 11/03/23 08:33 Dose: 40 mg Documented By: JESSICA Escitalopram Oxalate (Escitalopram Oxalate 20 Mg Tablet) 20 mg PO DAILY [facility] Last Admin: 11/03/23 08:34 Dose: 20 mg Documented By: JESSICA Folic Acid (Folic Acid 1 Mg Tablet) 1 mg PO DAILY [facility] Last Admin: 11/03/23 08:34 Dose: 1 mg Documented By: JESSICA Hydroxyzine HCl (Hydroxyzine Hcl 25 Mg Tablet) 25 mg PO Q6H PRN PRN Reason: anxiety Last Admin: 11/02/23 20:11 Dose: 25 mg Documented By: KURTIS Losartan Potassium (Losartan Potassium 50 Mg Tablet) 50 mg PO DAILY [facility]; Protocol Last Admin: 11/03/23 08:34 Dose: 50 mg Documented By: JESSICA Magnesium Oxide (Magnesium Oxide 400 Mg Tablet) 400 mg PO BID [facility] Last Admin: 11/03/23 08:34 Dose: 400 mg Documented By: JESSICA Melatonin (Melatonin 3 Mg Tablet) 6 mg PO BEDTIME PRN PRN Reason: Insomnia Ondansetron HCl (Ondansetron Hcl 4 Mg/2 Ml Vial) 4 mg IVPUSH Q8H PRN PRN Reason: Nausea and Vomiting Pharmacy Consult (Consult Rx Etoh Phenob Im/Po) 1 each MISCELLANE ONCE PRN; Protocol PRN Reason: Consult order Phenobarbital (Phenobarbital 15 Mg Tablet) 45 mg PO BID [facility]; Protocol Stop: 11/03/23 21:01 Last Admin: 11/03/23 08:34 Dose: 45 mg Documented By: JESSICA Phenobarbital (Phenobarbital 15 Mg Tablet) 15 mg PO BID [facility]; Protocol Stop: 11/05/23 21:01 Phenobarbital (Phenobarbital 15 Mg Tablet) 15 mg PO DAILY [facility]; Protocol Stop: 11/07/23 09:01 Sodium Chloride (0.9 % Sodium Chloride Flush 3 Ml Syringe) [facility] Last Admin: 11/03/23 08:35 Dose: 3 ml Documented By: JESSICA Thiamine HCl (Thiamine Hcl 100 Mg Tablet) 100 mg PO DAILY [facility] Last Admin: 11/03/23 08:34 Dose: 100 mg Documented By: JESSICA Trazodone HCl (Trazodone Hcl 100 Mg Tablet) 100 mg PO BEDTIME [facility] Last Admin: 11/02/23 22:26 Dose: 100 mg Documented By: DEONTEYESAN Labs 11/02/23 07:01 11/02/23 07:01 Assessment and Plan (1) Transaminitis: Status: Acute Plan 48F PMH etoh dependence, htn, chronic pancreatic insufficiency, hcv s/p treatment, mood disorder, presented with abd pain Alcohol dependence with acute alcoholic hepatitis and withdrawal Monitor LFTs, encourage p.o. intake Surgery appreciated, acute cholecystitis unlikely Continue phenobarbital, monitor CIWA Chronic Pancreatic insufficiency Continue pancreatic enzymes Hypertension Losartan Hypomagnesemia Replaced DVT prophylaxis with Lovenox Full Code reason for continued hospitalization: still with withdrawal Quality Stroke Does the patient have a stroke diagnosis?: No VTE Prior VTE?: No VTE Risk Level:: Medical - moderate - high VTE Device Contraindication: N/A - Device Ordered VTE Drug Contraindication: Treatment Not Indicated
--- NOTE | 2023-11-03 15:26 | MHC.RECOVRN ---
Met with pt in 351 after consult placed to Addiction Medicine for alcohol use. Pt had been in the ED, left due to wait time, and was called to come back due to abnormal liver enzymes and US. Upon evaluation, pt admitted for elevated AST/ALT and abdominal pain. Pt sitting in bed, awake, alert, easily engages in conversation. Pt reports alcohol use, 4-5 shots vodka daily x years. Pt reports she has reduced the amount she drinks over the past year, had been drinking up to 2 sleeves daily. Pt reports previous alcohol related hospital admissions as well as at least 9 ATS admissions. Pt reports she has been to [facility], [facility], [facility], and [place]. Pt denies further levels of care including CSS or TSS. Pt does report hx campral after a hospital admission, does not currently have an outpatient provider. Discussed [facility], pt would like to initiate care. Pt currently owns her home and lives with her son who also has AUD. Pt endorses family hx AUD. Pt reports she is not currently working, last worked January 2023 but lost her job due to taking too much time off. Pt tearful at times, reports she is bored in a house I can't take care of. Discussed other resources, including inpatient and outpatient treatment. Pt not currently interested in inpatient LOC. Pt reports taking campral currently, once per day. Discussed typical dosing guidelines. Pt feels as though campral has played a part in reducing the amount of alcohol she consumes and would like to be connected to the [facility]. Pt provided with written resources as well as t/w contact information. Plan for [facility] to call pt Sunday to schedule intake appt. Pt denies questions or concerns for t/w.
[2023-11-03 15:44] VITALS: BP 122/75; PULSE 80; RESP 18; TEMP 36.1; O2SAT 97
[2023-11-03 19:34] VITALS: BP 140/70; PULSE 84; RESP 16; TEMP 36.2; O2SAT 96
[2023-11-04 04:00] VITALS: BP 142/83; PULSE 76; RESP 16; TEMP 36.8; O2SAT 96
--- NOTE | 2023-11-04 04:42 | PC.NURSE ---
c/o nausea. CIWA 1 at 0430, patient requested antiemetic to [employer] [facility], patient asleep when checked on.
[2023-11-04 07:56] LABS: Alanine Aminotransferase 475 U/L (0-31); Albumin Level 3.1 g/dL (3.5-5.0); Alkaline Phosphatase 272 U/L (39-117); Anion Gap 13 (12-20); Aspartate Amino Transferase 241 U/L (5-31); Bilirubin Direct 0.7 mg/dL (0.0-0.5); Bilirubin Total 1.4 mg/dL (0.0-1.0); Blood Urea Nitrogen 9 mg/dL (9-16); Calcium 8.7 mg/dL (8.4-10.2); Carbon Dioxide 24 mmol/L (22-29); Chloride 103 mmol/L (96-108); Creatinine Clr Calc Pharmacy 88.2; Estimated Glomerular Filt Rate > 60; Glucose Fasting 89 mg/dL (60-99); Magnesium 1.5 mg/dL (1.6-2.6); Potassium 3.1 mmol/L (3.3-5.1); Sodium 137 mmol/L (135-145); Total Protein 5.8 g/dL (6.5-8.0)
[2023-11-04 08:00] VITALS: PULSE 84; O2SAT 97
[2023-11-04 08:28] VITALS: BP 136/78; PULSE 84; RESP 18; TEMP 37; O2SAT 94
--- NOTE | 2023-11-04 09:20 | HO.PM.IMPN ---
Subjective Subjective Date of Service: 11/04/23 Interval History: n/v Physical Exam Vital Signs: Vital Signs: Last Vital Signs Temp 98.6 F 11/04/23 08:28 Pulse 84 11/04/23 08:28 Resp 18 11/04/23 08:28 BP 136/78 11/04/23 08:28 Pulse Ox 94 11/04/23 08:28 O2 Del Method Room Air 11/04/23 08:28 BMI result Body Mass Index 22.3 General: AO X 3, no acute distress Resp: CTA bilateral, no accessory muscles used CVS: S1,S2,RRR GI: soft, non tender, non distended Neuro: motor grossly intact, alert Psych: appropriate affect, appropriate insight Objective Data Active Medications Acetaminophen (Acetaminophen 325 Mg Tablet) 650 mg PO Q6H PRN PRN Reason: Pain, Mild (Pain Scale 1-3) Lipase/Protease/Amylase (Lipase/Prot/Amylase 12/38/60k Capsule.Dr) 1 cap PO TIDWM [facility] Last Admin: 11/04/23 08:07 Dose: 1 cap Documented By: ERICK Bupropion HCl (Bupropion Hcl Xl 150 Mg Tab.Er.24h) 150 mg PO DAILY [facility] Last Admin: 11/04/23 08:07 Dose: 150 mg Documented By: ERICK Clonidine HCl (Clonidine Hcl 0.1 Mg Tablet) 0.1 mg PO TID PRN; Protocol PRN Reason: Anxiety Last Admin: 11/04/23 08:07 Dose: 0.1 mg Documented By: ERICK Enoxaparin Sodium (Enoxaparin Sodium 40 Mg/0.4 Ml Syringe) 40 mg SUBCUT Q24H [facility] Last Admin: 11/04/23 07:28 Dose: 40 mg Documented By: ERICK Escitalopram Oxalate (Escitalopram Oxalate 20 Mg Tablet) 20 mg PO DAILY [facility] Last Admin: 11/04/23 08:07 Dose: 20 mg Documented By: ERICK Folic Acid (Folic Acid 1 Mg Tablet) 1 mg PO DAILY [facility] Last Admin: 11/04/23 08:07 Dose: 1 mg Documented By: ERICK Hydroxyzine HCl (Hydroxyzine Hcl 25 Mg Tablet) 25 mg PO Q6H PRN PRN Reason: anxiety Last Admin: 11/03/23 14:11 Dose: 25 mg Documented By: JESSICA Losartan Potassium (Losartan Potassium 50 Mg Tablet) 50 mg PO DAILY [facility]; Protocol Last Admin: 11/04/23 08:07 Dose: 50 mg Documented By: ERICK Magnesium Oxide (Magnesium Oxide 400 Mg Tablet) 400 mg PO BID [facility] Last Admin: 11/04/23 08:07 Dose: 400 mg Documented By: ERICK Melatonin (Melatonin 3 Mg Tablet) 6 mg PO BEDTIME PRN PRN Reason: Insomnia Ondansetron HCl (Ondansetron Hcl 4 Mg/2 Ml Vial) 4 mg IVPUSH Q8H PRN PRN Reason: Nausea and Vomiting Last Admin: 11/04/23 07:27 Dose: 4 mg Documented By: ERICK Pharmacy Consult (Consult Rx Etoh Phenob Im/Po) 1 each MISCELLANE ONCE PRN; Protocol PRN Reason: Consult order Phenobarbital (Phenobarbital 15 Mg Tablet) 15 mg PO BID [facility]; Protocol Stop: 11/05/23 21:01 Last Admin: 11/04/23 08:07 Dose: 15 mg Documented By: ERICK Phenobarbital (Phenobarbital 15 Mg Tablet) 15 mg PO DAILY [facility]; Protocol Stop: 11/07/23 09:01 Sodium Chloride (0.9 % Sodium Chloride Flush 3 Ml Syringe) [facility] Last Admin: 11/04/23 07:27 Dose: 3 ml Documented By: ERICK Thiamine HCl (Thiamine Hcl 100 Mg Tablet) 100 mg PO DAILY [facility] Last Admin: 11/04/23 08:07 Dose: 100 mg Documented By: ERICK Trazodone HCl (Trazodone Hcl 100 Mg Tablet) 100 mg PO BEDTIME [facility] Last Admin: 11/03/23 21:39 Dose: 100 mg Documented By: MASONM Labs 11/04/23 06:38 11/04/23 06:38 Labs: Laboratory Results - last 24 hr 11/03/23 11/04/23 10:26 06:38 MCV 95.1 97.0 MCH 33.4 H 32.5 MCHC 35.2 H 33.5 RDW 14.6 15.1 Plt Count 122 L 97 L MPV 9.8 10.9 Absolute Nucleated RBC 0.020 H 0.000 Nucleated RBC % (auto) 0.5 H 0.0 PT 12.8 INR 1.1 Anion Gap 14 13 Estim Creat Clear Calc 85.4 88.2 Estimated GFR > 60 > 60 Fasting Glucose 107 H 89 Calcium 8.8 D 8.7 Magnesium 1.3 L* 1.5 L Iron 163 H TIBC 241 % Saturation 68 H Unsat Iron Binding 78 Ferritin 1621 H Total Bilirubin 1.6 H 1.4 H Direct Bilirubin 0.9 H 0.7 H AST 467 H 241 H ALT 676 H 475 H Alkaline Phosphatase 286 H 272 H Total Protein 6.1 L 5.8 L Albumin 3.1 L 3.1 L Microbiology Microbiology Results: Microbiology 11/02/23 Unknown Urine Culture - Final Urine clean catch - Clean Catch Midstream No growth. Assessment and Plan (1) Transaminitis: Status: Acute Plan 48F PMH etoh dependence, htn, chronic pancreatic insufficiency, hcv s/p treatment, mood disorder, presented with abd pain Alcohol dependence with acute alcoholic hepatitis and withdrawal Monitor LFTs, encourage p.o. intake Surgery appreciated, acute cholecystitis unlikely Continue phenobarbital, monitor CIWA Chronic Pancreatic insufficiency Continue pancreatic enzymes Hypertension Losartan hypokalemia replace monitor Hypomagnesemia Replaced DVT prophylaxis with Lovenox Full Code reason for continued hospitalization: not tolerating po Quality Stroke Does the patient have a stroke diagnosis?: No VTE Prior VTE?: No VTE Risk Level:: Medical - moderate - high VTE Device Contraindication: N/A - Device Ordered VTE Drug Contraindication: Treatment Not Indicated
[2023-11-04 15:12] VITALS: BP 137/74; PULSE 74; RESP 18; TEMP 36.1; O2SAT 97
[2023-11-04 20:00] VITALS: BP 147/71; PULSE 72; RESP 18; TEMP 37.1; O2SAT 96
--- NOTE | 2023-11-04 22:51 | PC.NURSE ---
pt independent in room. pt wanted IV removed despite education on keeping IV in place. Pt c/o md pablito informed and med administered as ordered.
[2023-11-05 03:00] VITALS: BP 153/92; PULSE 65; RESP 17; TEMP 36.7; O2SAT 96
[2023-11-05 07:29] LABS: Alanine Aminotransferase 349 U/L (0-31); Albumin Level 3.4 g/dL (3.5-5.0); Alkaline Phosphatase 247 U/L (39-117); Anion Gap 13 (12-20); Aspartate Amino Transferase 126 U/L (5-31); Bilirubin Direct 0.5 mg/dL (0.0-0.5); Bilirubin Total 1.1 mg/dL (0.0-1.0); Blood Urea Nitrogen 11 mg/dL (9-16); Calcium 9.1 mg/dL (8.4-10.2); Carbon Dioxide 26 mmol/L (22-29); Chloride 102 mmol/L (96-108); Creatinine Clr Calc Pharmacy 84.1; Estimated Glomerular Filt Rate > 60; Glucose Fasting 91 mg/dL (60-99); Potassium 3.7 mmol/L (3.3-5.1); Sodium 137 mmol/L (135-145); Total Protein 6.1 g/dL (6.5-8.0)
[2023-11-05 07:50] VITALS: BP 127/69; PULSE 89; RESP 16; TEMP 35.9; O2SAT 98
--- NOTE | 2023-11-05 08:28 | PM.DS ---
DS: Providers Provider Date of Service: 11/05/23 Date of admission: 11/01/23 20:44 Primary care physician: Ayala Patton MD Consults: 11/01/23 21:16 Addiction Medicine Routine Consulting Provider: Addiction Covering Reason for consultation: alcohol use disorder Consult to Care Team Routine Comment: Reason for consultation: alcohol use disorder Consult to General Surgery Routine Consulting Provider: [facility] General Surgeons Reason for consultation: ?cholecystitis DS: Diagnosis Discharge Diagnosis (1) Transaminitis: Status: Acute DS: Summary Hospital Course Hospital Course: from initial hpi: 48-year-old female with pertinent history of mood disorder, alcohol use disorder, tobacco use disorder, marijuana use disorder, history of hepatitis-C status post outpatient treatment, gastroesophageal reflux disease, pancreatic insufficiency on p.o. supplementation who presents to the emergency department for evaluation of generalized weakness and abdominal pain. Patient states she has been weak for the last 1 month. Also has been having epigastric and right upper quadrant abdominal pain on and off which is intermittently worse with p.o. intake. Does endorse multiple episodes of nonbloody vomiting and nonbloody diarrhea over the last 1 month. States her last alcoholic drink was on the day of presentation. Does have a history of alcohol withdrawal. Patient states she completed outpatient treatment for hepatitis-C. Denied IV drug use. Patient denies fever, chills, chest discomfort, palpitations, shortness of breath, changes in urinary habits. hospital course: Patient was admitted for alcohol dependence with acute alcoholic hepatitis and withdrawal. She was initially evaluated for acute cholecystitis, however felt to be clinically unlikely and height and not consistent with cholecystitis. Her LFTs improved as did her appetite and p.o. tolerance. She was given phenobarbital for withdrawal and symptoms resolved. For chronic pancreatic insufficiency she was continued on pancreatic enzymes. For hypertension was continue losartan. For hypokalemia she received replacement for hypomagnesemia she received replacement. Patient is feeling better will be discharged home. Time Attestation Discharge coordination time: Greater than 30 minutes Quality: Safe Use of Opioids Does Pt have an Active Cancer Diagnosis on the Problem List?: No Quality: Stroke Does the patient have a stroke diagnosis?: No Physical Exam Vital Signs: Vital Signs: Last Vital Signs Temp 96.6 F L 11/05/23 07:50 Pulse 89 11/05/23 07:50 Resp 16 11/05/23 07:50 BP 127/69 11/05/23 07:50 Pulse Ox 98 11/05/23 07:50 O2 Del Method Room Air 11/05/23 07:50 BMI result Body Mass Index 22.3 General: AO X 3, no acute distress Resp: CTA bilateral, no accessory muscles used CVS: S1,S2,RRR GI: soft, non tender, non distended Neuro: motor grossly intact, alert Psych: appropriate affect, appropriate insight DS: Data Data Completed and Pending Labs on day of discharge: Laboratory Results - last 24 hr 11/02/23 11/05/23 20:09 05:49 WBC 4.8 RBC 3.30 L Hgb 10.8 L Hct 32.4 L MCV 98.2 H MCH 32.7 MCHC 33.3 RDW 15.6 Plt Count 82 L MPV 10.8 Absolute Nucleated RBC 0.000 Nucleated RBC % (auto) 0.0 Sodium 137 Potassium 3.7 Chloride 102 Carbon Dioxide 26 Anion Gap 13 BUN 11 Creatinine 0.64 Estim Creat Clear Calc 84.1 Estimated GFR > 60 Fasting Glucose 91 Calcium 9.1 Total Bilirubin 1.1 H Direct Bilirubin 0.5 AST 126 H ALT 349 H Alkaline Phosphatase 247 H Total Protein 6.1 L Albumin 3.4 L Stl C. cayetanensis PCR Not Detected Stool Rotavirus A PCR Not Detected Stl Adenov F 40/41 PCR Not Detected Stool Astrovirus (PCR) Not Detected Stool Campylobacter PCR Not Detected Stool Cryptosporidium PCR Not Detected Stl Sh Tox Pr E STEC PCR Not Detected Stool E coli O157 PCR Not applicable Stl Enterotoxigenic E PCR Not Detected Stool EPEC (PCR) Not Detected Stool EAEC (PCR) Not Detected Stl E. histolytica PCR Not Detected Stool Giardia Lamblia PCR Not Detected Stl P. shigelloides PCR Not Detected Stool Salmonella PCR Not Detected Stool Sapovirus (PCR) Not Detected Stl Shigella/EIEC PCR Not Detected St Y.enterocolitica PCR Not Detected Stool Vibrio (PCR) Not Detected Stl Vibrio cholerae PCR Not Detected Stl Norovirus GI/GII PCR Not Detected Discharge Plan Discharge Anticipated Discharge Date/Time: 11/05/23 08:27 Patient Disposition: Home, Self-Care Discharge Diagnosis: etoh hepatitis, withdrawal Referrals: Ayala Patton MD [Primary Care Provider] - 1 Week Discharge Medications: Continued losartan 50 mg tablet 50 mg PO DAILY clonidine HCl 0.1 mg tablet 0.1 mg PO TID PRN (Reason: Anxiety) citalopram 40 mg tablet 40 mg PO DAILY thiamine HCl (vitamin B1) 100 mg tablet 100 mg PO DAILY magnesium oxide 400 mg (241.3 mg magnesium) tablet 400 mg PO BID trazodone 100 mg tablet 100 mg PO BEDTIME pantoprazole 40 mg tablet,delayed release (DR/EC) 40 mg PO DAILY folic acid 1 mg tablet 1 mg PO DAILY hydroxyzine HCl 25 mg tablet 25 mg PO Q6H PRN (Reason: anxiety) bupropion HCl 150 mg tablet extended release 24 hr 150 mg PO QAM acamprosate 333 mg tablet,delayed release (DR/EC) 666 mg PO TID cholecalciferol (vitamin D3) 50 mcg (2,000 unit) tablet 50 mcg PO DAILY Pancreaze 2,600-8,800- 15,200 unit Capsule,Delayed Release(Dr/Ec) 2 cap PO DAILY@1600 Discharge Orders: Discharge Order (Routine); Ordered 11/05/23 Ordered By: Carlos Lerma Diet: Advance to usual diet Activity on Discharge: As tolerated Stand Alone Forms: Patient Portal Discharge page Care Plan Goals: recovery Health Concerns: etoh Plan of Treatment: avoid etoh Assessment: see above
--- NOTE | 2023-11-05 08:45 | MHC.CM.PN ---
Patient is from home with her adult son. She is functionally independent. No services or equipment. Hx alcohol abuse - see criminal justice lawyer note. PCP: Ayala Patton MD HCP: Patient reports HCP is her son Tc Kolb [phone]. Copy requested DP: Per EMR patient is medically cleared for dc home self care. Has resources from criminal justice lawyer at bedside, and is considering outpatient services. Does not wish to meet with criminal justice lawyer again before dc. Boyfriend to transport home ~10:30am. RN aware.
[2023-11-07 07:33] LABS: Smooth Muscle Antibody <20 U (<20)
[2023-11-07 15:53] LABS: HCV Log PCR <1.18 NOT DETECTED Log IU/mL (NOT DETECTED); HepC Viral Load <15 NOT DETECTED IU/mL (NOT DETECTED)
[2023-11-09 15:39] LABS: Anti Nuclear Antibody Screen POSITIVE (NEGATIVE); Anti Nuclear Antibody Titer 1:40 titer
[2023-11-10 12:38] LABS: Liver Kidney Microsomal Ab <=20.0 U (<=20.0)
== END 2023-11-05 10:49 | disposition home or self-care (01) | DRG 280 ==
LOC: HO.ED 19:55 → HO.EDOVER 20:48 → HO.S3 11-02 14:09
PROVIDERS: Internal Medicine Gastroenterology; Admitting Provider Student in an Organized Health Care Education/Training Program; Emergency Provider Emergency Medicine; PCP Internal Medicine; Visit Provider Internal Medicine
DX: K70.10 Alcoholic hepatitis without ascites (principal); K86.89 Other specified diseases of pancreas; F17.210 Nicotine dependence, cigarettes, uncomplicated; F10.239 Alcohol dependence with withdrawal, unspecified; K21.9 Gastro-esophageal reflux disease without esophagitis; Z71.6 Tobacco abuse counseling; E83.42 Hypomagnesemia; Z20.822 Contact with and (suspected) exposure to COVID-19; Z79.899 Other long term (current) drug therapy
CPT/HCPCS: 36415; 74176; 78227; 80048; 80053; 80076; 80143; 80307; 81001; 82550; 82728; 83540; 83735; 84702; 85025; 85027; 85610; 86015; 86038; 86039; 86376; 86704; 86706; 86709; 86803; 87086; 87340; 87507; 87522; 99221; 99285; A9537; J1650; J2405; J2543; J2560; J2805; J3475

== ENCOUNTER → 2023-11-01 20:44 | Outpatient (BNV) | payer OTHER, SELFPAY | PROVIDERS: Admitting Provider Student in an Organized Health Care Education/Training Program; Emergency Provider Emergency Medicine; PCP Internal Medicine; Visit Provider Student in an Organized Health Care Education/Training Program | DX: R74.01 Elevation of levels of liver transaminase levels (principal) | CPT/HCPCS: 99223; 99232; 99233; 99239 ==

== ENCOUNTER → 2023-11-01 20:44 | Outpatient (BNV) | payer OTHER, SELFPAY | PROVIDERS: Admitting Provider Student in an Organized Health Care Education/Training Program; Emergency Provider Emergency Medicine; PCP Internal Medicine; Visit Provider Internal Medicine Gastroenterology | DX: K86.89 Other specified diseases of pancreas (principal); K21.9 Gastro-esophageal reflux disease without esophagitis; F10.90 Alcohol use, unspecified, uncomplicated; R79.89 Other specified abnormal findings of blood chemistry | CPT/HCPCS: 99222 ==

== ENCOUNTER → 2023-11-01 20:44 | Outpatient (BNV) | payer OTHER, SELFPAY | PROVIDERS: Admitting Provider Student in an Organized Health Care Education/Training Program; Emergency Provider Emergency Medicine; PCP Internal Medicine; Visit Provider Surgery | DX: R74.01 Elevation of levels of liver transaminase levels (principal); K86.89 Other specified diseases of pancreas; R10.11 Right upper quadrant pain | CPT/HCPCS: 99222 ==

== ENCOUNTER 2023-11-30 20:53 | Inpatient (IN) | payer OTHER, SELFPAY ==
--- NOTE | ~2023-11-30 | XR_ITS ---
EXAMINATION: XR CHEST CLINICAL INFORMATION: Cough COMPARISON: None available. TECHNIQUE: Frontal view of the chest was obtained. FINDINGS: No significant abnormality is noted involving the heart, lungs, mediastinum, bony thorax or soft tissues. XR/XR chest 1V IMPRESSION: Unremarkable chest examination.
[2023-11-30 20:56] VITALS: BP 155/87; PULSE 89; RESP 16; TEMP 36.9; O2SAT 96; BMI 22.5
[2023-11-30 21:31] LABS: Basophils Absolute Auto 0.1 X10*3/uL (0.0-0.2); Basophils Percent Auto 1.1 % (0-2); Eosinophils Percent Auto 0.2 % (0-4); Imm Gran Abs Auto 0.01 X10*3/uL (0.00-0.03); Imm Gran Pct Auto 0.2 % (0.0-0.4); Lymphocytes Absolute Auto 2.5 X10*3/uL (1.2-4.9); Lymphocytes Percent Auto 46.8 % (20-40); MANUAL DIFF FLAG NO; Mean Corpuscular HGB Conc 34.3 g/dl (31.0-35.0); Mean Corpuscular Hemoglobin 33.3 pg (27.0-33.0); Mean Corpuscular Volume 97.2 fL (80.0-98.0); Mean Platelet Volume 9.2 fL (9.4-12.3); Monocytes Absolute Auto 0.3 X10*3/uL (0.1-1.2); NRBC Pct Auto 0.4 /100WBC (0.0-0.2); Neutrophils Absolute Auto 2.4 x10*3/uL (2.0-8.3); Neutrophils Percent Auto 45.7 % (45-73); Platelet Count 198 X10*3/uL (160-400); Red Cell Distribution Width 15.9 % (11.0-16.0); White Blood Count 5.3 X10*3/uL (4.8-10.8)
[2023-11-30 21:52] LABS: Alanine Aminotransferase 24 U/L (0-31); Albumin Level 4.3 g/dL (3.5-5.0); Alkaline Phosphatase 111 U/L (39-117); Anion Gap 17 (12-20); Aspartate Amino Transferase 31 U/L (5-31); Bilirubin Total 0.4 mg/dL (0.0-1.0); Blood Urea Nitrogen 11 mg/dL (9-16); Calcium 9.3 mg/dL (8.4-10.2); Carbon Dioxide 26 mmol/L (22-29); Chloride 106 mmol/L (96-108); Creatinine Clr Calc Pharmacy 102.3; Estimated Glomerular Filt Rate > 60; Ethanol 210 mg/dL; Glucose Random 112 mg/dL (60-115); IDNOW Serial# 55D5AD1C; Influenza A Negative (Negative); Influenza B2 Negative (Negative); Lipase 15 U/L (8-78); Potassium 2.9 mmol/L (3.3-5.1); Sodium 146 mmol/L (135-145); Total Protein 7.4 g/dL (6.5-8.0)
[2023-11-30 21:53] LABS: COVID-19 Test Negative (Negative); IDNOW Serial# 16C4AD1C
--- NOTE | 2023-11-30 21:56 | ECG_ITS ---
Test Reason : ABD PAIN Blood Pressure : / mmHG Vent. Rate : 080 BPM Atrial Rate : 080 BPM P-R Int : 140 ms QRS Dur : 092 ms QT Int : 396 ms P-R-T Axes : 056 044 059 degrees QTc Int : 456 ms Normal sinus rhythm Normal ECG When compared with ECG of 01-NOV-2023 11:12, Criteria for Septal infarct are no longer Present Nonspecific T wave abnormality no longer evident in Anterior leads Referred By: Zainab Ramirez Electronically Signed By:DESMOND HILL MD
[2023-11-30 22:32] LABS: Magnesium 1.4 mg/dL (1.6-2.6)
[2023-11-30] MEDS: Thiamine HCL 200 MG in 0.9 % Sodium Chloride 100 ML 204 MG IV (22:35)
[2023-11-30] MEDS: ondansetron HCL 4 MG/2 ML VIAL IVPUSH (22:35)
[2023-11-30] MEDS: Midazolam HCl/PF 2 MG/2 ML VIAL IVPUSH (22:35)
[2023-11-30] MEDS: Potassium Chloride Packet 20 MEQ PACKET 40 MEQ PO (22:36)
[2023-11-30] MEDS: 0.9 % Sodium Chloride 1,000 ML 999 ML IV ×2 (22:39→23:10)
[2023-11-30] MEDS: Pantoprazole Sodium 40 MG/10 ML VIAL IVPUSH (22:59)
[2023-11-30] MEDS: Magnesium Sulfate/H2O 2 GM/50 ML PIGGYBACK IV (23:02)
--- NOTE | 2023-11-30 23:04 | ED_ITS ---
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 Has had similiar episodes in past. No GIB symptoms reported. MD elicited complaint: nausea and vomiting Pertinent past history: alcohol abuse Onset (ago): hour(s) (several) Description of vomiting: watery and bilious Associated nausea: No Associated abdominal pain: No Severity: severe Exacerbating factors: eating Relieving factors: none Context: alcohol abuse Associated symptoms: myalgias, cough, loss of appetite, malaise, nausea/vomiting and anxiety Related Data Home Medications Medication Instructions Recorded Confirmed acamprosate 333 mg tablet,delayed 666 mg PO TID 11/01/23 11/01/23 release bupropion HCl 150 mg 24 hr tablet, 150 mg PO QAM 11/01/23 11/01/23 extended release cholecalciferol (vitamin D3) 50 50 mcg PO DAILY 11/01/23 11/01/23 mcg (2,000 unit) tablet citalopram 40 mg tablet 40 mg PO DAILY 11/01/23 11/01/23 clonidine HCl 0.1 mg tablet 0.1 mg PO TID PRN Anxiety 11/01/23 11/01/23 folic acid 1 mg tablet 1 mg PO DAILY 11/01/23 11/01/23 hydroxyzine HCl 25 mg tablet 25 mg PO Q6H PRN anxiety 11/01/23 11/01/23 lipase 2,600-protease 2 cap PO DAILY@1600 11/01/23 11/01/23 8,800-amylase 15,200 unit capsule, delayed rel (Pancreaze) losartan 50 mg tablet 50 mg PO DAILY 11/01/23 11/01/23 magnesium oxide 400 mg (241.3 mg 400 mg PO BID 11/01/23 11/01/23 magnesium) tablet pantoprazole 40 mg tablet,delayed 40 mg PO DAILY 11/01/23 11/01/23 release thiamine HCl (vitamin B1) 100 mg 100 mg PO DAILY 11/01/23 11/01/23 tablet trazodone 100 mg tablet 100 mg PO BEDTIME 11/01/23 11/01/23 Allergies Allergy/AdvReac Type Severity Reaction Status Date / Time No Known Allergies Allergy Verified 11/30/23 20:56 Review of Systems 2 Review of Systems: Constitutional : No Weight loss, No Fever, No Chills ENT/Mouth : No sore throat, No Rhinorrhea Eyes: No Swelling, No Redness Cardiovascular : No Chest Pain, No SOB, NoEdema Respiratory : No Cough, No Sputum, No Wheezing Gastrointestinal : Positive Nausea, Positive Vomiting, no Diarrhea, no abdominal Pain, No Hematochezia, No Melena Genitourinary : No Dysuria, No Urinary Frequency, No Hematuria, No Urgency Musculoskeletal : No joint pain, No Myalgias, No Joint Swelling Skin : No Skin Lesions, No rash Neuro :pos Weakness, No Numbness, No Dizziness, No Headache Psych : pos Anxiety/Panic, No Depression Heme/Lymph: No Bruising, No Lymphadenopathy Endocrine : No Polyuria, No Polydipsia All other systems reviewed and are negative. Gastrointestinal: Gastrointestinal: Denies nausea PMFSH Past Medical History Attestation statement: The following information was validated with the patient. Source: old records reviewed Medical History Pancreatic insufficiency Gastroesophageal reflux disease Essential hypertension Mood disorder Cannabis use disorder Hepatitis C Tobacco use disorder Alcohol use disorder Social History Social History Household Members: Family and None Housing: House Alcohol intake: current Alcohol intake frequency: 3 or more drinks per day Alcohol type: hard liquor Patient Tobacco Use Status: Current everyday Tobacco user Tobacco use type: Cigarette Smoked in Last 30 Days: No e-Cigarette/Vaping Use: Never Used Second Hand Smoke Exposure: No Use of substances other than those prescribed or required for medical reasons: Yes Substance Use Type: Marijuana Substance Use Frequency: Daily Advance Directives: No Advance Directives Information Provided: No Patient : No service: No Physical Exam 2 Vital Signs: Vital Signs: Last Vital Signs Temp 98.4 F 11/30/23 20:56 Pulse 89 11/30/23 20:56 Resp 16 11/30/23 20:56 BP 155/87 H 11/30/23 20:56 Pulse Ox 96 11/30/23 20:56 O2 Del Method Room Air 11/30/23 20:56 BMI result Body Mass Index 22.5 Appearance: Alert. Oriented X3. Mild acute distress. despite ETOH level does not appear intoxicated, she is annoyed with questions Eyes: Pupils equal, round and reactive to light. ENT: Pharynx dry MM Neck: Normal inspection. Neck supple. CVS: Normal heart rate and rhythm. Pulses normal. Respiratory: No respiratory distress. Breath sounds normal. Abdomen: Soft and nontender. Skin: Skin warm and dry. Normal skin color. Normal skin turgor. Extremities: No lower extremity edema. No calf ttp Neuro: Oriented X 3. No motor deficit. No sensory deficit. anxious tremors noted Course Course Course Narrative: improved with IV magnesium, IV versed Medications Administered Discontinued Medications Generic Name Dose Route Start Last Admin Trade Name Freq PRN Reason Stop Dose Admin Thiamine HCl 200 mg/ Sodium 102 mls @ 204 mls/hr 11/30/23 21:55 11/30/23 22:35 Chloride IV 11/30/23 22:24 204 mls/hr ONCE ONE Administration Sodium Chloride 1,000 mls @ 999 mls/hr 11/30/23 22:00 11/30/23 22:39 Ns IV 11/30/23 23:00 999 mls/hr .Q1H1M SAMANTHA Administration Midazolam HCl 2 mg 11/30/23 21:55 11/30/23 22:35 Midazolam Hcl/Pf 2 Mg/2 Ml Vial IVPUSH 11/30/23 21:56 2 mg ONCE ONE Administration Ondansetron HCl 4 mg 11/30/23 22:08 11/30/23 22:35 Ondansetron Hcl 4 Mg/2 Ml Vial IVPUSH 11/30/23 22:09 4 mg ONCE ONE Administration Potassium Chloride 40 meq 11/30/23 21:54 11/30/23 22:36 Potassium Chloride Packet 20 Meq Packet PO 11/30/23 21:55 40 meq ONCE ONE Administration Medical Decision Making Medical Decision Making MDM Narrative: 48 yo female with PMH of hypokalemia and hypomagnesemia, HTN, ETOH abuse 5 nips a day here with c/o n/v and anxiety/tremors she is presenting with concerns for ETOH withdrawal along with hx of low K and magnesium at this time will start on IVF, phenobarb, IV versed, K and magnesium and thiamine given vomiting and she is not able to keep much down will admit for ETOH withdrawal and lyte repletion Differential Diagnosis Differential Diagnoses: The differential diagnosis associated with the presentation includes ETOH withdrawal, lyte repletion Admission/Observation Consideration of admission/observation: Escalation of care including admission/observation considered admit for lyte repletion Consult Healthcare Provider Management of the patient was discussed with: Hospitalist (will admit) Lab Data MDM Lab Attestation statement: I reviewed the patient's lab results. 11/30/23 21:22 11/30/23 21:22 Labs: Lab Results 11/30/23 Range/Units 21:22 WBC 5.3 (4.8-10.8) X10*3/uL RBC 3.60 L (4.20-5.50) X10*6/uL Hgb 12.0 (12.0-16.0) g/dl Hct 35.0 L (37.0-47.0) % MCV 97.2 (80.0-98.0) fL MCH 33.3 H (27.0-33.0) pg MCHC 34.3 (31.0-35.0) g/dl RDW 15.9 (11.0-16.0) % Plt Count 198 D (160-400) X10*3/uL MPV 9.2 L (9.4-12.3) fL Immature Gran % (Auto) 0.2 (0.0-0.4) % Neut % (Auto) 45.7 (45-73) % Lymph % (Auto) 46.8 H (20-40) % [place] % (Auto) 6.0 (2-11) % Eos % (Auto) 0.2 (0-4) % Baso % (Auto) 1.1 (0-2) % Lymph # (Auto) 2.5 (1.2-4.9) X10*3/uL [place] # (Auto) 0.3 (0.1-1.2) X10*3/uL Eos # (Auto) 0.0 (0.0-0.4) X10*3/uL Baso # (Auto) 0.1 (0.0-0.2) X10*3/uL Abs Immat Gran (auto) 0.01 (0.00-0.03) X10*3/uL Absolute Neuts (auto) 2.4 (2.0-8.3) x10*3/uL Absolute Nucleated RBC 0.020 H (0.0-0.012) X10*3/uL Nucleated RBC % (auto) 0.4 H (0.0-0.2) /100WBC Sodium 146 H (135-145) mmol/L Potassium 2.9 L* (3.3-5.1) mmol/L Chloride 106 (96-108) mmol/L Carbon Dioxide 26 (22-29) mmol/L Anion Gap 17 (12-20) BUN 11 (9-16) mg/dL Creatinine 0.55 (0.5-1.4) mg/dL Estim Creat Clear Calc 102.3 Estimated GFR > 60 Random Glucose 112 (60-115) mg/dL Calcium 9.3 (8.4-10.2) mg/dL Magnesium 1.4 L* (1.6-2.6) mg/dL Total Bilirubin 0.4 (0.0-1.0) mg/dL AST 31 (5-31) U/L ALT 24 (0-31) U/L Alkaline Phosphatase 111 (39-117) U/L Total Protein 7.4 (6.5-8.0) g/dL Albumin 4.3 (3.5-5.0) g/dL Lipase 15 (8-78) U/L Ethyl Alcohol 210 mg/dL COVID-19 (JIN) Negative (Negative) COVID-19 Clin Com See Note Influenza Type A (HOLDEN) Negative (Negative) Influenza Type B (HOLDEN) Negative (Negative) Influenza A & B Note See Note Independent Interpretation I performed an independent interpretation of an: EKG and Plain X-Ray (no pneumonia) Interpretation: Rate: 80 Rhythm: NSR [place]: normal Normal P waves. Normal OG. Normal QRS complex. ST T wave : normal no PROSPER qTC: 456 prior studies: no acute ischemia The study has been interpreted contemporaneously by me. . Radiology Impression Discussion of test interpretation with radiology: I have reviewed the radiologist's reading. Critical Care Time Critical Care Time Critical Care Time: Yes Total Critical Care Time: 60 Attestation: repletion of IV magnesium, IV potassium, IV versed improvement of symptoms I attest to this time spent taking care of the patient Discharge Plan Discharge Clinical Impression: Alcohol use disorder, Acute hypokalemia, Hypomagnesemia Vomiting Qualifiers: Vomiting type: unspecified Nausea presence: with nausea Qualified Code(s): R 11.2 - Nausea with vomiting, unspecified Patient Disposition: Admitted As Inpatient Prescriptions: No Action losartan 50 mg tablet 50 mg PO DAILY clonidine HCl 0.1 mg tablet 0.1 mg PO TID PRN (Reason: Anxiety) citalopram 40 mg tablet 40 mg PO DAILY thiamine HCl (vitamin B1) 100 mg tablet 100 mg PO DAILY magnesium oxide 400 mg (241.3 mg magnesium) tablet 400 mg PO BID trazodone 100 mg tablet 100 mg PO BEDTIME pantoprazole 40 mg tablet,delayed release (DR/EC) 40 mg PO DAILY folic acid 1 mg tablet 1 mg PO DAILY hydroxyzine HCl 25 mg tablet 25 mg PO Q6H PRN (Reason: anxiety) bupropion HCl 150 mg tablet extended release 24 hr 150 mg PO QAM acamprosate 333 mg tablet,delayed release (DR/EC) 666 mg PO TID cholecalciferol (vitamin D3) 50 mcg (2,000 unit) tablet 50 mcg PO DAILY Pancreaze 2,600-8,800- 15,200 unit Capsule,Delayed Release(Dr/Ec) 2 cap PO DAILY@1600
[2023-11-30] MEDS: Potassium Chloride/H20 10 MEQ/100 ML PIGGYBACK 66.67 MEQ IV (23:10)
--- NOTE | 2023-11-30 23:11 | P.HPHOSP_ITS ---
History of Present Illness Date of Service: 11/30/23 Chief Complaint: Alcohol use disorder This is a 48-year-old female with pertinent history of alcohol use disorder with history of alcohol withdrawal seizures, mood disorder, tobacco use disorder, marijuana use disorder, history of hepatitis-C status post outpatient treatment, chronic pancreatic insufficiency, gastroesophageal reflux disease, essential hypertension who presents to the emergency department for evaluation of nausea and vomiting. Patient states she started having nausea and vomiting, nonbloody on the day of presentation. Also complains of associated weakness and generalized abdominal discomfort. Had 1 episode of loose stools. Her last alcoholic drink was on the day of presentation. Patient states she drinks about 5 nips per day. No fever, chills, chest discomfort, palpitations, shortness of breath, changes in urinary habits. In the emergency department, patient was found to have low potassium and low magnesium. Review of Systems 2 Constitutional: Constitutional: Reports lethargy and Reports malaise Cardiovascular: Cardiovascular: Reports no additional cardiovascular complaints Respiratory: Respiratory: Reports no additional respiratory complaints Gastrointestinal: Gastrointestinal: Reports abdominal pain, Reports nausea and Reports vomiting Genitourinary: Genitourinary: Reports no additional female genitourinary complaints [facility] Medical History Pancreatic insufficiency Gastroesophageal reflux disease Essential hypertension Mood disorder Cannabis use disorder Hepatitis C Tobacco use disorder Alcohol use disorder Pertinent family history: No family history of early CAD Social History Household Members: Family and None Housing: House Alcohol intake: current Alcohol intake frequency: 3 or more drinks per day Alcohol type: hard liquor Patient Tobacco Use Status: Never used Tobacco Tobacco use type: Cigarette Cigarettes Per Day: 10 Smoked in Last 30 Days: No e-Cigarette/Vaping Use: Never Used Patient Interested in Nicotine Replacement: No Patient Given Instructions on How to Stop Smoking: No Second Hand Smoke Exposure: No Use of substances other than those prescribed or required for medical reasons: Yes Substance Use Type: Marijuana Substance Use Frequency: Daily Advance Directives: No Advance Directives Information Provided: No Patient : No service: No Meds Allergies Allergy/AdvReac Type Severity Reaction Status Date / Time No Known Allergies Allergy Verified 11/30/23 20:56 Active Medications: Current Medications Potassium Chloride (Potassium Chloride/H20) 10 meq in 100 mls @ 100 mls/hr IV Q1H [facility] Stop: 11/30/23 23:59 Last Admin: 11/30/23 23:10 Dose: 66.67 mls/hr Magnesium Sulfate (Magnesium Sulfate/H2o) 2 gm in 50 mls @ 25 mls/hr IV ONCE ONE Stop: 11/30/23 23:54 Last Admin: 11/30/23 23:02 Dose: 25 mls/hr Sodium Chloride (Ns) 1,000 mls @ 999 mls/hr IV .Q1H1M [facility] Stop: 11/30/23 23:30 Last Admin: 11/30/23 23:10 Dose: 999 mls/hr Pharmacy Consult (Consult Rx Etoh Phenob Im/Po) 1 each MISCELLANE ONCE PRN; Protocol PRN Reason: Consult order Home Medications Medication Instructions Recorded Confirmed Last Taken Type acamprosate 333 mg tablet,delayed 666 mg PO TID 11/01/23 11/01/23 11/01/23 History release bupropion HCl 150 mg 24 hr tablet, 150 mg PO QAM 11/01/23 11/01/23 11/01/23 History extended release cholecalciferol (vitamin D3) 50 50 mcg PO DAILY 11/01/23 11/01/23 11/01/23 History mcg (2,000 unit) tablet citalopram 40 mg tablet 40 mg PO DAILY 11/01/23 11/01/23 11/01/23 History clonidine HCl 0.1 mg tablet 0.1 mg PO TID PRN Anxiety 11/01/23 11/01/23 10/31/23 History folic acid 1 mg tablet 1 mg PO DAILY 11/01/23 11/01/23 11/01/23 History hydroxyzine HCl 25 mg tablet 25 mg PO Q6H PRN anxiety 11/01/23 11/01/23 Unknown History lipase 2,600-protease 2 cap PO DAILY@1600 11/01/23 11/01/23 10/31/23 History 8,800-amylase 15,200 unit capsule, delayed rel (Pancreaze) losartan 50 mg tablet 50 mg PO DAILY 11/01/23 11/01/23 11/01/23 History magnesium oxide 400 mg (241.3 mg 400 mg PO BID 11/01/23 11/01/23 11/01/23 History magnesium) tablet pantoprazole 40 mg tablet,delayed 40 mg PO DAILY 11/01/23 11/01/23 11/01/23 History release thiamine HCl (vitamin B1) 100 mg 100 mg PO DAILY 11/01/23 11/01/23 11/01/23 History tablet trazodone 100 mg tablet 100 mg PO BEDTIME 11/01/23 11/01/23 10/31/23 History Physical Exam 2 Vital Signs and Narrative: Vital Signs: Last Vital Signs Temp 98.4 F 11/30/23 20:56 Pulse 89 11/30/23 20:56 Resp 16 11/30/23 20:56 BP 155/87 H 11/30/23 20:56 Pulse Ox 96 11/30/23 20:56 O2 Del Method Room Air 11/30/23 20:56 BMI result Body Mass Index 22.5 Middle-aged female lying in bed in no distress Neck supple, no JVD Regular rate and rhythm, S1-S2 heard Regular breath sounds bilaterally, no wheezing or crackles appreciated Abdomen soft nontender, no guarding, no rigidity Patient is awake, alert and oriented to self, place, time and person ; no focal motor deficit Psych: Drowsy No pedal edema Results Labs 11/30/23 21:22 11/30/23 21:22 Labs: Laboratory Results - last 24 hr 11/30/23 21:22 MCV 97.2 MCH 33.3 H MCHC 34.3 RDW 15.9 Plt Count 198 D MPV 9.2 L Immature Gran % (Auto) 0.2 Neut % (Auto) 45.7 Lymph % (Auto) 46.8 H [place] % (Auto) 6.0 Eos % (Auto) 0.2 Baso % (Auto) 1.1 Lymph # (Auto) 2.5 [place] # (Auto) 0.3 Eos # (Auto) 0.0 Baso # (Auto) 0.1 Abs Immat Gran (auto) 0.01 Absolute Neuts (auto) 2.4 Absolute Nucleated RBC 0.020 H Nucleated RBC % (auto) 0.4 H Anion Gap 17 Estim Creat Clear Calc 102.3 Estimated GFR > 60 Random Glucose 112 Calcium 9.3 Magnesium 1.4 L* Total Bilirubin 0.4 AST 31 ALT 24 Alkaline Phosphatase 111 Total Protein 7.4 Albumin 4.3 Lipase 15 Ethyl Alcohol 210 COVID-19 (JIN) Negative COVID-19 Clin Com See Note Influenza Type A (HOLDEN) Negative Influenza Type B (HOLDEN) Negative Influenza A & B Note See Note Imaging Radiologist's Impressions: Impressions Chest X-Ray 11/30/23 22:30 IMPRESSION: Unremarkable chest examination. Assessment and Plan (1) Hypomagnesemia: Status: Acute (2) Acute hypokalemia: Status: Acute (3) Vomiting: Qualifiers: Nausea presence: with nausea Vomiting type: unspecified Qualified Code(s): R11.2 - Nausea with vomiting, unspecified Status: Acute Plan This is a 48-year-old female with pertinent history of alcohol use disorder with history of alcohol withdrawal seizures, mood disorder, tobacco use disorder, marijuana use disorder, history of hepatitis-C status post outpatient treatment, chronic pancreatic insufficiency, gastroesophageal reflux disease, essential hypertension who presents to the emergency department for evaluation of nausea and vomiting. #. Nausea/vomiting: Likely alcoholic gastritis. Supportive care for now. #. Hypokalemia and hypomagnesemia due to GI losses: Repleted #. Alcohol use disorder: Initiated on phenobarb protocol in the ER. Consulting Addiction Team. Continue thiamine and folic acid. Monitor CIWA #. Gastroesophageal reflux disease: On PPI #. Chronic pancreatic insufficiency: Continue enzyme supplementation #. Mood disorder: Continue home mood stabilizers #. Essential hypertension: On losartan #. Asymptomatic bacteriuria/pyuria: Defer treatment Med rec pending DVT prophylaxis: Lovenox Full code Quality Stroke Does the patient have a stroke diagnosis?: No VTE Prior VTE?: No VTE Risk Level:: Medical - moderate - high VTE Device Contraindication: Treatment Not Indicated VTE Drug Contraindication: N/A - Med Ordered
[2023-11-30] MEDS: Enoxaparin Sodium 40 MG/0.4 ML SYRINGE SUBCUT (23:30)
[2023-11-30] MEDS: PHENobarbitaL sodium 130 MG/ML IM ONCE 210 MG IM (23:30)
[2023-11-30 23:40] LABS: Appearance Urine Cloudy; Color Urine Yellow; Glucose Urine UA Negative (Negative); Leukocyte Esterase Urine Trace (Negative); Nitrite Urine Negative (Negative); PH 6.5 (5.0-9.0); UMIC TRIGGER UACC YES; Urine Blood Negative (Negative); Urine Ketones Negative (Negative); Urine Protein Negative (Neg-Trace)
[2023-11-30 23:42] LABS: Bacteria Urine 2+ (None Seen); Hyaline Casts Urine 0-2 /LPF (0-2); RBC Urine 0-2 /HPF (0-2); UACC Culture Trigger YES
[2023-12-01] VITALS (8 sets, daily range): BP systolic 161–190; BP diastolic 82–98; PULSE 77–91; RESP 17–20; TEMP 36.2–36.7; O2SAT 94–99; BMI 23.5
--- NOTE | 2023-12-01 00:35 | PC.NURSE ---
Pt ambulated to bathroom independently. Pt is A&Ox4, GCS 15. Pt has been resting in bed comfortably since.
[2023-12-01] MEDS: Potassium Chloride/H20 10 MEQ/100 ML PIGGYBACK 66.67 MEQ IV (01:03)
[2023-12-01] MEDS: PHENobarbitaL sodium 130 MG/ML VIAL IM Q3Hx2 157 MG IM ×2 (03:25→06:17)
[2023-12-01] MEDS: Potassium Chloride/H20 10 MEQ/100 ML PIGGYBACK 100 MEQ IV ×4 (03:26→06:16)
--- NOTE | 2023-12-01 03:35 | PC.NURSE ---
Pt admitted to [facility] for observation. A&Ox3, vague with responses and slow to respond. Needed to repeat questions multiple times for patient to answer. On CIWA, phenobarb protocol followed. Replacing potassium via IV. asked if patient needed to be monitored as electrolytes were being replaced. Per MD Kam no need for tele at this time. OOB with 1-2 assist to bathroom for void.
[2023-12-01 06:14] LABS: MANUAL DIFF FLAG NO
[2023-12-01 06:22] LABS: Basophils Absolute Auto 0.1 X10*3/uL (0.0-0.2); Basophils Percent Auto 0.9 % (0-2); Eosinophils Percent Auto 0.6 % (0-4); Hematocrit 31.4 % (37.0-47.0); Hemoglobin 10.7 g/dl (12.0-16.0); Imm Gran Abs Auto 0.02 X10*3/uL (0.00-0.03); Imm Gran Pct Auto 0.4 % (0.0-0.4); Lymphocytes Absolute Auto 2.6 X10*3/uL (1.2-4.9); Lymphocytes Percent Auto 48.8 % (20-40); Mean Corpuscular HGB Conc 34.1 g/dl (31.0-35.0); Mean Corpuscular Hemoglobin 34.3 pg (27.0-33.0); Mean Corpuscular Volume 100.6 fL (80.0-98.0); Mean Platelet Volume 9.6 fL (9.4-12.3); Monocytes Absolute Auto 0.5 X10*3/uL (0.1-1.2); Monocytes Percent Auto 8.9 % (2-11); Neutrophils Absolute Auto 2.1 x10*3/uL (2.0-8.3); Neutrophils Percent Auto 40.4 % (45-73); Platelet Count 162 X10*3/uL (160-400); Red Blood Count 3.12 X10*6/uL (4.20-5.50); Red Cell Distribution Width 15.9 % (11.0-16.0); White Blood Count 5.3 X10*3/uL (4.8-10.8)
[2023-12-01 06:53] LABS: Anion Gap 18 (12-20); Blood Urea Nitrogen 9 mg/dL (9-16); Carbon Dioxide 20 mmol/L (22-29); Chloride 108 mmol/L (96-108); Creatinine Clr Calc Pharmacy 106.2; Estimated Glomerular Filt Rate > 60; Glucose Random 83 mg/dL (60-115); Magnesium 1.5 mg/dL (1.6-2.6); Potassium 3.6 mmol/L (3.3-5.1); Sodium 142 mmol/L (135-145)
--- NOTE | 2023-12-01 07:15 | PHA.MEDREC ---
Pharmacy Consult ? Medication Reconciliation Pharmacy has completed the medication reconciliation.
--- NOTE | 2023-12-01 08:25 | MHC.CM.PN ---
CM met with Patient at bedside and addressed PERRY with her, providing Patient with the original and a copy has been placed on the chart. 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 Home/self care vs Recovery Team interventions is the tentative plan and CM has initiated and will follow for dc planning. PCP is Dr. Mala Patton.
[2023-12-01] MEDS: Omeprazole 20 MG CAPSULE.DR PO (08:32)
[2023-12-01] MEDS: Magnesium Oxide 400 MG TABLET PO ×2 (08:32→16:42)
[2023-12-01] MEDS: buPROPion HCl XL 150 MG TAB.ER.24H PO (08:32)
[2023-12-01] MEDS: Magnesium Sulfate/H2O 2 GM/50 ML PIGGYBACK IV (08:33)
[2023-12-01] MEDS: Escitalopram Oxalate 20 MG TABLET PO (08:33)
[2023-12-01] MEDS: Thiamine HCL 100 MG TABLET PO (08:33)
[2023-12-01] MEDS: Losartan Potassium 50 MG TABLET PO (08:33)
[2023-12-01] MEDS: Folic Acid 1 MG TABLET PO (08:33)
[2023-12-01] MEDS: 0.9 % Sodium Chloride Flush 3 ML SYRINGE IVFLUSH ×2 (08:33→15:33)
[2023-12-01] MEDS: Cholecalciferol (Vitamin D3) 25 MCG TABLET 50 MCG PO (08:33)
--- NOTE | 2023-12-01 08:57 | MHC.CM.PN ---
Per Nurse CM, Patient is now Inpatient.
--- NOTE | 2023-12-01 09:41 | HO.PM.IMPN ---
Subjective Subjective Date of Service: 12/01/23 Interval History: denies tremors/N/V/abd pain Mg 1.5 Review of Systems Review of Systems: Yes all other systems are reviewed and are negative Physical Exam Vital Signs: Vital Signs: Last Vital Signs Temp 97.1 F 12/01/23 07:25 Pulse 83 12/01/23 07:25 Resp 19 12/01/23 07:25 BP 190/90 H 12/01/23 07:25 Pulse Ox 94 12/01/23 07:25 O2 Del Method Room Air 12/01/23 07:25 BMI result Body Mass Index 23.5 Gen: in no acute distress HEENT: sclera anicteric, moist mucus membranes Neck: supple Lungs: clear to auscultation bilaterally Heart: regular rate and rhythm, no murmurs Abd: soft, non-tender, non-distended Ext: no edema Skin: warm/well-perfused Neuro: alert and oriented x3, no focal findings Psych: restricted affect Objective Data Active Medications Acamprosate (Acamprosate Calcium 333 Mg Tablet.) 666 mg PO TID [facility] Last Admin: 12/01/23 08:33 Dose: Not Given Documented By: ZENAIDA Non-Admin Reason: Med Not Available Acetaminophen (Acetaminophen 325 Mg Tablet) 650 mg PO Q6H PRN PRN Reason: Pain, Mild (Pain Scale 1-3) Lipase/Protease/Amylase (Lipase/Prot/Amylase 12/38/60k Capsule.) 1 cap PO TIDWM [facility] Bupropion HCl (Bupropion Hcl Xl 150 Mg Tab.Er.24h) 150 mg PO DAILY [facility] Last Admin: 12/01/23 08:32 Dose: 150 mg Documented By: ZENAIDA Clonidine HCl (Clonidine Hcl 0.1 Mg Tablet) 0.1 mg PO TID PRN; Protocol PRN Reason: Anxiety Enoxaparin Sodium (Enoxaparin Sodium 40 Mg/0.4 Ml Syringe) 40 mg SUBCUT Q24H [facility] Last Admin: 11/30/23 23:30 Dose: 40 mg Documented By: LISA Escitalopram Oxalate (Escitalopram Oxalate 20 Mg Tablet) 20 mg PO DAILY [facility] Last Admin: 12/01/23 08:33 Dose: 20 mg Documented By: ZENAIDA Folic Acid (Folic Acid 1 Mg Tablet) 1 mg PO DAILY [facility] Last Admin: 12/01/23 08:33 Dose: 1 mg Documented By: ZENAIDA Hydroxyzine HCl (Hydroxyzine Hcl 25 Mg Tablet) 25 mg PO Q6H PRN PRN Reason: anxiety Losartan Potassium (Losartan Potassium 50 Mg Tablet) 50 mg PO DAILY [facility]; Protocol Last Admin: 12/01/23 08:33 Dose: 50 mg Documented By: ZENAIDA Magnesium Oxide (Magnesium Oxide 400 Mg Tablet) 400 mg PO BIDPC [facility] Last Admin: 12/01/23 08:32 Dose: 400 mg Documented By: ZENAIDA Melatonin (Melatonin 3 Mg Tablet) 6 mg PO BEDTIME PRN PRN Reason: Insomnia Omeprazole (Omeprazole 20 Mg Capsule.Dr) 20 mg PO DAILY@0630 [facility] Last Admin: 12/01/23 08:32 Dose: 20 mg Documented By: ZENAIDA Ondansetron HCl (Ondansetron Hcl 4 Mg/2 Ml Vial) 4 mg IVPUSH Q8H PRN PRN Reason: Nausea and Vomiting Pharmacy Consult (Consult Rx Etoh Phenob Im/Po) 1 each MISCELLANE ONCE PRN; Protocol PRN Reason: Consult order Phenobarbital (Phenobarbital 15 Mg Tablet) 45 mg PO BID [facility]; Protocol Stop: 12/03/23 09:01 Phenobarbital (Phenobarbital 30 Mg Tablet) 30 mg PO BID [facility]; Protocol Stop: 12/05/23 09:01 Phenobarbital (Phenobarbital 30 Mg Tablet) 30 mg PO DAILY [facility]; Protocol Stop: 12/07/23 09:01 Sodium Chloride (0.9 % Sodium Chloride Flush 3 Ml Syringe) [address] [facility] Last Admin: 12/01/23 08:33 Dose: 3 ml Documented By: ZENAIDA Thiamine HCl (Thiamine Hcl 100 Mg Tablet) 100 mg PO DAILY [facility] Last Admin: 12/01/23 08:33 Dose: 100 mg Documented By: ZENAIDA Trazodone HCl (Trazodone Hcl 100 Mg Tablet) 100 mg PO BEDTIME [facility] Vitamin D (Cholecalciferol (Vitamin D3) 25 Mcg Tablet) 50 mcg PO DAILY [facility] Last Admin: 12/01/23 08:33 Dose: 50 mcg Documented By: ZENAIDA Labs 12/01/23 05:51 12/01/23 05:51 Labs: Laboratory Results - last 24 hr 11/30/23 11/30/23 12/01/23 21:22 23:35 05:51 MCV 97.2 100.6 H MCH 33.3 H 34.3 H MCHC 34.3 34.1 RDW 15.9 15.9 Plt Count 198 D 162 MPV 9.2 L 9.6 Immature Gran % (Auto) 0.2 0.4 Neut % (Auto) 45.7 40.4 L Lymph % (Auto) 46.8 H 48.8 H [place] % (Auto) 6.0 8.9 Eos % (Auto) 0.2 0.6 Baso % (Auto) 1.1 0.9 Lymph # (Auto) 2.5 2.6 [place] # (Auto) 0.3 0.5 Eos # (Auto) 0.0 0.0 Baso # (Auto) 0.1 0.1 Abs Immat Gran (auto) 0.01 0.02 Absolute Neuts (auto) 2.4 2.1 Absolute Nucleated RBC 0.020 H 0.000 Nucleated RBC % (auto) 0.4 H 0.0 Anion Gap 17 18 Estim Creat Clear Calc 102.3 106.2 Estimated GFR > 60 > 60 Random Glucose 112 83 Calcium 9.3 8.0 L D Magnesium 1.4 L* 1.5 L Total Bilirubin 0.4 AST 31 ALT 24 Alkaline Phosphatase 111 Total Protein 7.4 Albumin 4.3 Lipase 15 Urine Color Yellow Urine Appearance Cloudy Urine pH 6.5 Ur Specific [place] 1.020 Urine Protein Negative Urine Glucose (UA) Negative Urine Ketones Negative Urine Blood Negative Urine Nitrite Negative Ur Leukocyte Esterase Trace H Urine RBC 0-2 Urine WBC 6-10 H Ur Squamous Epith Cells 11-20 Urine Bacteria 2+ Hyaline Casts 0-2 Ethyl Alcohol 210 COVID-19 (JIN) Negative COVID-19 Clin Com See Note Influenza Type A (HOLDEN) Negative Influenza Type B (HOLDEN) Negative Influenza A & B Note See Note Assessment and Plan (1) Hypomagnesemia: Status: Acute (2) Alcohol use disorder: Status: Acute Plan d2 48yo F with AUD with hx EtOH withdrawal seizures, chronic pancreatic insufficiency, GERD, HTN presenting with N/V, high risk for EtOH withdrawal AUD with high risk for withdrawal - phenobarbital taper, Addiction Medicine, thiamine, acamprosate EtOH gastritis GERD - PPI hypoMg - replete, recheck level in AM pancreatic insufficiency - pancreatic enzymes mood disorder - trazodone, bupropion, escitalopram, hydroxyzine, clonidine HTN - losartan VTE ppx - LMWH dispo - eventual home In my clinical judgment, the patient requires continued inpatient hospitalization for the following reasons: high-risk EtOH withdrawal Total time managing care of this patient today: 35 minutes. Quality Stroke Does the patient have a stroke diagnosis?: No VTE Prior VTE?: No VTE Risk Level:: Medical - moderate - high VTE Device Contraindication: Treatment Not Indicated VTE Drug Contraindication: N/A - Med Ordered
[2023-12-01] MEDS: Lipase/Prot/Amylase 12/38/60K CAPSULE.DR 1 CAP PO ×2 (11:05→15:30)
[2023-12-01] MEDS: Acamprosate Calcium 333 MG TABLET.DR 666 MG PO ×2 (15:30→20:32)
[2023-12-01] MEDS: cloNIDine HCL 0.1 MG TABLET PO (15:33)
[2023-12-01] MEDS: hydrOXYzine HCL 25 MG TABLET PO (16:42)
[2023-12-01] MEDS: amLODIPine Besylate 5 MG TABLET PO (17:06)
[2023-12-01] MEDS: PHENobarbitaL 15 MG TABLET 45 MG PO (20:33)
[2023-12-01] MEDS: traZODone HCL 100 MG TABLET PO (20:33)
[2023-12-01] MEDS: PHENobarbitaL 30 MG TABLET PO (21:09)
[2023-12-02] MEDS: 0.9 % Sodium Chloride Flush 3 ML SYRINGE IVFLUSH ×3 (00:02→22:21)
[2023-12-02] MEDS: Enoxaparin Sodium 40 MG/0.4 ML SYRINGE SUBCUT ×2 (00:02→22:20)
[2023-12-02 03:40] VITALS: BP 167/80; PULSE 67; RESP 20; TEMP 36.3; O2SAT 95
[2023-12-02] MEDS: Omeprazole 20 MG CAPSULE.DR PO (06:40)
[2023-12-02 07:13] VITALS: BP 159/89; PULSE 76; RESP 18; TEMP 36.3; O2SAT 98
[2023-12-02 07:21] LABS: Anion Gap 15 (12-20); Blood Urea Nitrogen 7 mg/dL (9-16); Chloride 105 mmol/L (96-108); Creatinine Clr Calc Pharmacy 85.3; Estimated Glomerular Filt Rate > 60; Glucose Random 93 mg/dL (60-115); Magnesium 1.6 mg/dL (1.6-2.6); Potassium 3.6 mmol/L (3.3-5.1); Sodium 143 mmol/L (135-145)
[2023-12-02 07:35] LABS: Calcium 9.2 mg/dL (8.4-10.2); Carbon Dioxide 27 mmol/L (22-29)
[2023-12-02] MEDS: PHENobarbitaL 15 MG TABLET 45 MG PO ×2 (08:39→20:51)
[2023-12-02] MEDS: Magnesium Oxide 400 MG TABLET PO ×2 (08:39→17:19)
[2023-12-02] MEDS: Losartan Potassium 50 MG TABLET PO (08:40)
[2023-12-02] MEDS: buPROPion HCl XL 150 MG TAB.ER.24H PO (08:40)
[2023-12-02] MEDS: amLODIPine Besylate 5 MG TABLET PO (08:40)
[2023-12-02] MEDS: Thiamine HCL 100 MG TABLET PO (08:40)
[2023-12-02] MEDS: Cholecalciferol (Vitamin D3) 25 MCG TABLET 50 MCG PO (08:40)
[2023-12-02] MEDS: cloNIDine HCL 0.1 MG TABLET PO ×3 (08:40→22:20)
[2023-12-02] MEDS: Escitalopram Oxalate 20 MG TABLET PO (08:40)
[2023-12-02] MEDS: Folic Acid 1 MG TABLET PO (08:40)
[2023-12-02] MEDS: Acamprosate Calcium 333 MG TABLET.DR 666 MG PO ×3 (08:40→20:51)
[2023-12-02] MEDS: Lipase/Prot/Amylase 12/38/60K CAPSULE.DR 1 CAP PO ×3 (08:40→17:19)
--- NOTE | 2023-12-02 09:55 | P.PNIM_ITS ---
Subjective Subjective Date of Service: 12/02/23 Interval History: Complaining of persistent tremors, unsteady gait left heel pain, tolerating diet no nausea, no vomiting, no abdominal pain, no diarrhea no other acute issues overnight. Review of Systems All other system reviewed and negative Physical Exam 2 Vital Signs: Vital Signs: Last Vital Signs Temp 97.3 F 12/02/23 07:13 Pulse 76 12/02/23 07:13 Resp 18 12/02/23 07:13 BP 159/89 H 12/02/23 07:13 Pulse Ox 98 12/02/23 07:13 O2 Del Method Room Air 12/02/23 07:13 BMI result Body Mass Index 23.5 Const: Other: Gen: Resting comfortably, in no acute distress HEENT: sclera anicteric, moist mucus membranes Neck: supple Lungs: clear to auscultation bilaterally Heart: regular rate and rhythm, no murmurs Abd: soft, non-tender, non-distended, bowel sounds audible Ext: no edema, left heel tenderness to palpation, no open sores, no redness, no warmth Skin: warm/well-perfused Neuro: alert and oriented x3, no focal findings Psych: restricted affect Objective Data Active Medications Acamprosate (Acamprosate Calcium 333 Mg Tablet.) 666 mg PO TID [facility] Last Admin: 12/02/23 08:40 Dose: 666 mg Documented By: SHERIDAN Acetaminophen (Acetaminophen 325 Mg Tablet) 650 mg PO Q6H PRN PRN Reason: Pain, Mild (Pain Scale 1-3) Amlodipine Besylate (Amlodipine Besylate 5 Mg Tablet) 5 mg PO DAILY [facility]; Protocol Last Admin: 12/02/23 08:40 Dose: 5 mg Documented By: SHERIDAN Lipase/Protease/Amylase (Lipase/Prot/Amylase 12/38/60k Capsule.) 1 cap PO TIDWM [facility] Last Admin: 12/02/23 08:40 Dose: 1 cap Documented By: SHERIDAN Bupropion HCl (Bupropion Hcl Xl 150 Mg Tab.Er.24h) 150 mg PO DAILY [facility] Last Admin: 12/02/23 08:40 Dose: 150 mg Documented By: SHERIDAN Clonidine HCl (Clonidine Hcl 0.1 Mg Tablet) 0.1 mg PO TID PRN; Protocol PRN Reason: Anxiety Last Admin: 12/02/23 08:40 Dose: 0.1 mg Documented By: SHERIDAN Enoxaparin Sodium (Enoxaparin Sodium 40 Mg/0.4 Ml Syringe) 40 mg SUBCUT Q24H [facility] Last Admin: 12/02/23 00:02 Dose: 40 mg Documented By: CARLOS Escitalopram Oxalate (Escitalopram Oxalate 20 Mg Tablet) 20 mg PO DAILY [facility] Last Admin: 12/02/23 08:40 Dose: 20 mg Documented By: SHERIDAN Folic Acid (Folic Acid 1 Mg Tablet) 1 mg PO DAILY [facility] Last Admin: 12/02/23 08:40 Dose: 1 mg Documented By: SHERIDAN Hydroxyzine HCl (Hydroxyzine Hcl 25 Mg Tablet) 25 mg PO Q6H PRN PRN Reason: anxiety Last Admin: 12/01/23 16:42 Dose: 25 mg Documented By: ZENAIDA Losartan Potassium (Losartan Potassium 50 Mg Tablet) 50 mg PO DAILY [facility]; Protocol Last Admin: 12/02/23 08:40 Dose: 50 mg Documented By: SHERIDAN Magnesium Oxide (Magnesium Oxide 400 Mg Tablet) 400 mg PO BIDPC [facility] Last Admin: 12/02/23 08:39 Dose: 400 mg Documented By: SHERIDAN Melatonin (Melatonin 3 Mg Tablet) 6 mg PO BEDTIME PRN PRN Reason: Insomnia Omeprazole (Omeprazole 20 Mg Capsule.Dr) 20 mg PO DAILY@0630 [facility] Last Admin: 12/02/23 06:40 Dose: 20 mg Documented By: CARLOS Ondansetron HCl (Ondansetron Hcl 4 Mg/2 Ml Vial) 4 mg IVPUSH Q8H PRN PRN Reason: Nausea and Vomiting Pharmacy Consult (Consult Rx Etoh Phenob Im/Po) 1 each MISCELLANE ONCE PRN; Protocol PRN Reason: Consult order Phenobarbital (Phenobarbital 15 Mg Tablet) 45 mg PO BID [facility]; Protocol Stop: 12/03/23 09:01 Last Admin: 12/02/23 08:39 Dose: 45 mg Documented By: SHERIDAN Phenobarbital (Phenobarbital 30 Mg Tablet) 30 mg PO BID [facility]; Protocol Stop: 12/05/23 09:01 Phenobarbital (Phenobarbital 30 Mg Tablet) 30 mg PO DAILY [facility]; Protocol Stop: 12/07/23 09:01 Sodium Chloride (0.9 % Sodium Chloride Flush 3 Ml Syringe) 3 ml IVFLUSH QSHIFT [facility] Last Admin: 12/02/23 08:43 Dose: 3 ml Documented By: SHERIDAN Thiamine HCl (Thiamine Hcl 100 Mg Tablet) 100 mg PO DAILY [facility] Last Admin: 12/02/23 08:40 Dose: 100 mg Documented By: SHERIDAN Trazodone HCl (Trazodone Hcl 100 Mg Tablet) 100 mg PO BEDTIME [facility] Last Admin: 12/01/23 20:33 Dose: 100 mg Documented By: CARLOS Vitamin D (Cholecalciferol (Vitamin D3) 25 Mcg Tablet) 50 mcg PO DAILY [facility] Last Admin: 12/02/23 08:40 Dose: 50 mcg Documented By: SHERIDAN Labs 12/01/23 05:51 12/02/23 06:30 Labs: Laboratory Results - last 24 hr 12/02/23 06:30 Hold Purple Top SEE NOTE Anion Gap 15 Estim Creat Clear Calc 85.3 Estimated GFR > 60 Random Glucose 93 Calcium 9.2 D Magnesium 1.6 Assessment and Plan (1) Hypomagnesemia: Status: Acute (2) Alcohol use disorder: Status: Acute Plan 48yo F with AUD with hx EtOH withdrawal seizures, chronic pancreatic insufficiency, GERD, HTN presenting with N/V, high risk for EtOH withdrawal AUD with high risk for withdrawal - persistent withdrawal symptoms, continue phenobarbital taper, Addiction Medicine consult pending, continue thiamine, acamprosate tid EtOH gastritis/GERD no symptoms - PPI hypoMg - replete, repeat level 1.6 continue oral magnesium supplement pancreatic insufficiency - pancreatic enzymes mood disorder -on trazodone, bupropion, escitalopram, hydroxyzine, clonidine HTN - stable BP continue amlodipine and losartan - left heel pain question plantar fasciitis will place ice as needed NSAIDs follow clinical course VTE ppx - LMWH dispo - eventual home In my clinical judgment, the patient requires continued inpatient hospitalization for the following reasons: high-risk EtOH withdrawal Total time managing care of this patient today: 35 minutes. Quality Stroke Does the patient have a stroke diagnosis?: No VTE Prior VTE?: No VTE Risk Level:: Medical - moderate - high VTE Device Contraindication: Treatment Not Indicated VTE Drug Contraindication: N/A - Med Ordered
[2023-12-02 11:08] VITALS: BP 156/91; PULSE 78; RESP 18; TEMP 36.2; O2SAT 97
[2023-12-02] MEDS: hydrOXYzine HCL 25 MG TABLET PO ×2 (13:34→22:23)
[2023-12-02] MEDS: Butalb/Acetamin/Caff 50/325/40 TABLET 1 TAB PO (13:34)
[2023-12-02 15:13] VITALS: BP 161/85; PULSE 82; RESP 18; TEMP 36.2; O2SAT 98
--- NOTE | 2023-12-02 16:14 | MHC.RECOVRN ---
Met with pt in 482 after consult placed to Addiction Medicine for alcohol use. Pt had presented to the ED reporting vomiting, weakness, and alcohol use. Upon evaluation, pt admitted for hypomagnesemia, hypokalemia, and vomiting. Pt currently on phenobarb protocol. Pt sitting in bed, awake, alert, easily engages in conversation, appears comfortable. Pts son present with pts permission. Pt familiar with t/w from consult on 11/03/23. Pt reports alcohol use after discharge, currently drinking 6-7 vodka nips daily. Pt reports she did not take acamprosate at home due to bottle stating must abstain from alcohol for 5 days prior to starting. Pt continues to be interested in campral and [facility] services as she has had success with campral in the past. Discussed other recovery supports and provided pt with written resources. Pt denies questions or concerns at this time. Plan to make [facility] appt prior to discharge.
[2023-12-02 19:53] VITALS: BP 134/71; PULSE 84; RESP 20; TEMP 36.7; O2SAT 98
[2023-12-02] MEDS: traZODone HCL 100 MG TABLET PO (20:51)
[2023-12-02] MEDS: Simethicone 80 MG TAB.CHEW PO (22:20)
[2023-12-03 02:51] VITALS: BP 138/78; PULSE 68; RESP 16; TEMP 36; O2SAT 96
[2023-12-03] MEDS: Omeprazole 20 MG CAPSULE.DR PO (06:10)
[2023-12-03 06:54] VITALS: BP 146/79; PULSE 71; RESP 17; TEMP 36.1; O2SAT 99
[2023-12-03] MEDS: Lipase/Prot/Amylase 12/38/60K CAPSULE.DR 1 CAP PO ×2 (08:11→11:54)
[2023-12-03] MEDS: PHENobarbitaL 15 MG TABLET 45 MG PO (08:11)
[2023-12-03] MEDS: buPROPion HCl XL 150 MG TAB.ER.24H PO (08:11)
[2023-12-03] MEDS: amLODIPine Besylate 5 MG TABLET PO (08:11)
[2023-12-03] MEDS: Cholecalciferol (Vitamin D3) 25 MCG TABLET 50 MCG PO (08:11)
[2023-12-03] MEDS: Escitalopram Oxalate 20 MG TABLET PO (08:11)
[2023-12-03] MEDS: Thiamine HCL 100 MG TABLET PO (08:11)
[2023-12-03] MEDS: Losartan Potassium 50 MG TABLET PO (08:11)
[2023-12-03] MEDS: Folic Acid 1 MG TABLET PO (08:11)
[2023-12-03] MEDS: Acamprosate Calcium 333 MG TABLET.DR 666 MG PO ×2 (08:11→13:59)
[2023-12-03] MEDS: Magnesium Oxide 400 MG TABLET PO (08:11)
[2023-12-03] MEDS: 0.9 % Sodium Chloride Flush 3 ML SYRINGE IVFLUSH (08:12)
[2023-12-03] MEDS: cloNIDine HCL 0.1 MG TABLET PO (08:15)
[2023-12-03 09:29] LABS: Magnesium 1.3 mg/dL (1.6-2.6)
--- NOTE | 2023-12-03 09:39 | MHC.RECOVRN ---
Pt has [facility] appt sheduled for 12/06/23 at 1:30PM. Pt and CM aware.
[2023-12-03 10:03] LABS: Folate > 20.0 ng/mL (> or = 4.0); Vitamin B12 200 pg/mL (200-900)
[2023-12-03] MEDS: Magnesium Sulfate/H2O 2 GM/50 ML PIGGYBACK IV (10:27)
[2023-12-03] MEDS: Cyanocobalamin (Vitamin B-12) 1,000 MCG TABLET 1000 MCG PO (10:35)
--- NOTE | 2023-12-03 13:27 | MHC.CM.PN ---
Per MD rounds discharge today. DP home self care. An appointment has been scheduled for follow up @ the [facility] 12/06 1:30 pm. Patient has arranged for transport home.
[2023-12-03] MEDS: hydrOXYzine HCL 25 MG TABLET PO (13:59)
[2023-12-03 14:06] LABS: Magnesium 1.8 mg/dL (1.6-2.6)
--- NOTE | 2023-12-03 14:15 | PM.DS ---
DS: Providers Provider Date of Service: 12/03/23 Date of admission: 12/01/23 08:47 Primary care physician: Ayala Patton MD Consults: 12/01/23 02:30 Addiction Medicine Routine Consulting Provider: Addiction Covering Reason for consultation: alcohol use disorder DS: Diagnosis Discharge Diagnosis (1) Hypomagnesemia: Status: Acute (2) Alcohol use disorder: Status: Acute DS: Summary Hospital Course Hospital Course: History of presenting illness: Date of Service: 11/30/23 Chief Complaint: Alcohol use disorder This is a 48-year-old female with pertinent history of alcohol use disorder with history of alcohol withdrawal seizures, mood disorder, tobacco use disorder, marijuana use disorder, history of hepatitis-C status post outpatient treatment, chronic pancreatic insufficiency, gastroesophageal reflux disease, essential hypertension who presents to the emergency department for evaluation of nausea and vomiting. Patient states she started having nausea and vomiting, nonbloody on the day of presentation. Also complains of associated weakness and generalized abdominal discomfort. Had 1 episode of loose stools. Her last alcoholic drink was on the day of presentation. Patient states she drinks about 5 nips per day. No fever, chills, chest discomfort, palpitations, shortness of breath, changes in urinary habits. In the emergency department, patient was found to have low potassium and low magnesium. Hospital course: 48yo F with alcohol use disorder, with hx EtOH withdrawal seizures, chronic pancreatic insufficiency, GERD, HTN presenting with nausea vomiting and high risk for EtOH withdrawal and admitted to medical floor placed on phenobarb protocol, thiamine, folic acid and was continued on acamprosate tid, patient responded well to above treatment her tremors have resolved, she is walking with steady gait she was seen by Addiction team and has been scheduled to have outpatient comprehensive care appointment on December 06. EtOH gastritis/GERD no symptoms continue prilosec. Hypo magnesemia due to poor by mouth intake repleted and normalized continue magnesium supplement pancreatic insufficiency -continue pancreatic enzymes mood disorder -continue home medications trazodone, bupropion, escitalopram, hydroxyzine and clonidine. HTN - stable BP continue amlodipine and losartan Left heel pain resolved. Time Attestation Discharge coordination time: Greater than 30 minutes Quality: Safe Use of Opioids Does Pt have an Active Cancer Diagnosis on the Problem List?: No Quality: Stroke Does the patient have a stroke diagnosis?: No Physical Exam Vital Signs: Vital Signs: Last Vital Signs Temp 97 F 12/03/23 06:54 Pulse 71 12/03/23 06:54 Resp 17 12/03/23 06:54 BP 146/79 H 12/03/23 06:54 Pulse Ox 99 12/03/23 06:54 O2 Del Method Room Air 12/03/23 06:54 BMI result Body Mass Index 23.5 Const: Other: Gen: Resting comfortably, in no acute distress HEENT: sclera anicteric, moist mucus membranes Neck: supple Lungs: clear to auscultation bilaterally Heart: regular rate and rhythm, no murmurs Abd: soft, non-tender, non-distended, bowel sounds audible Ext: no edema Skin: warm/well-perfused Neuro: alert and oriented x3, no focal findings Psych: appropriate affect DS: Data Data Completed and Pending Completed studies during hospitalization [Text1]: Procedures Detoxification Services for Substance Abuse Treatment (11/01/23) Labs on day of discharge: Laboratory Results - last 24 hr 12/03/23 12/03/23 08:53 13:08 Hold Purple Top SEE NOTE Magnesium 1.3 L* 1.8 Vitamin B12 200 Folate > 20.0 Hold Yellow Top See Note Discharge Plan Discharge Anticipated Discharge Date/Time: 12/03/23 10:16 Patient Disposition: Home, Self-Care Discharge Diagnosis: Hypo magnesemia Hypokalemia Alcohol use disorder/withdrawal Referrals: [facility] [Other] - [address] [place] [address] [Other] - [address] [place] [id number] [Other] - 1 Week (You have an appointment scheduled at the [facility] 12/06/23 @ 1:30pm) Ayala Patton MD [Primary Care Provider] - 1 Week Discharge Medications: Continued losartan 50 mg tablet 50 mg PO DAILY clonidine HCl 0.1 mg tablet 0.1 mg PO TID PRN (Reason: Anxiety) citalopram 40 mg tablet 40 mg PO DAILY thiamine HCl (vitamin B1) 100 mg tablet 100 mg PO DAILY magnesium oxide 400 mg (241.3 mg magnesium) tablet 400 mg PO BID trazodone 100 mg tablet 100 mg PO BEDTIME pantoprazole 40 mg tablet,delayed release (DR/EC) 40 mg PO DAILY folic acid 1 mg tablet 1 mg PO DAILY hydroxyzine HCl 25 mg tablet 25 mg PO Q6H PRN (Reason: anxiety) bupropion HCl 150 mg tablet extended release 24 hr 150 mg PO QAM acamprosate 333 mg tablet,delayed release (DR/EC) 666 mg PO TID cholecalciferol (vitamin D3) 50 mcg (2,000 unit) tablet 50 mcg PO DAILY Pancreaze 2,600-8,800- 15,200 unit Capsule,Delayed Release(Dr/Ec) 2 cap PO DAILY@1600 Discharge Orders: Discharge Order (Routine); Ordered 12/03/23 Ordered By: Javon Moy Diet: Advance to usual diet Activity on Discharge: As tolerated Stand Alone Forms: Patient Portal Discharge page Care Plan Goals: Recommend to take diet rich in magnesium and potassium like avocado, nuts, bananas, dark chocolate, spinach, beans and legumes Health Concerns: Strongly recommend to abstain from alcohol Plan of Treatment: Outpatient follow-up with primary care physician [facility] appointment scheduled for 12/06/23 at 1:30 am Assessment: As above Discharge Date/Time: 12/03/23 14:34
== END 2023-12-03 14:34 | disposition home or self-care (01) | DRG 241 ==
LOC: HO.ED 23:06 → HO.EDOVER 23:58 → HO.IMC 12-01 00:29 → HO.S3 12-02 20:38
PROVIDERS: Family Medicine; Admitting Provider Student in an Organized Health Care Education/Training Program; Emergency Provider Emergency Medicine; PCP Internal Medicine; Visit Provider Hospitalist
DX: K29.20 Alcoholic gastritis without bleeding (principal); K86.89 Other specified diseases of pancreas; E83.42 Hypomagnesemia; E87.6 Hypokalemia; M72.2 Plantar fascial fibromatosis; F10.139 Alcohol abuse with withdrawal, unspecified; Y90.7 Blood alcohol level of 200-239 mg/100 ml; Z86.19 Personal history of other infectious and parasitic diseases; K21.9 Gastro-esophageal reflux disease without esophagitis; F39 Unspecified mood [affective] disorder; I10 Essential (primary) hypertension; R82.71 Bacteriuria; Z20.822 Contact with and (suspected) exposure to COVID-19; Z79.899 Other long term (current) drug therapy
CPT/HCPCS: 36415; 71045; 80048; 80053; 80307; 81001; 82607; 82746; 83690; 83735; 85025; 87086; 87502; 87635; 93005; 99285; C9113; J1650; J2250; J2405; J2560; J3411; J3475; J3480

== ENCOUNTER → 2023-11-30 21:56 | Outpatient (BNV) | payer OTHER, SELFPAY | PROVIDERS: Admitting Provider Student in an Organized Health Care Education/Training Program; Emergency Provider Emergency Medicine; PCP Internal Medicine; Visit Provider Internal Medicine Cardiovascular Disease | DX: R10.9 Unspecified abdominal pain (principal) | CPT/HCPCS: 93010 ==

== ENCOUNTER → 2023-11-30 23:09 | Outpatient (BNV) | payer OTHER, SELFPAY | PROVIDERS: Admitting Provider Student in an Organized Health Care Education/Training Program; Emergency Provider Emergency Medicine; PCP Internal Medicine; Visit Provider Student in an Organized Health Care Education/Training Program | DX: E83.42 Hypomagnesemia (principal); F10.90 Alcohol use, unspecified, uncomplicated | CPT/HCPCS: 99222; 99232; 99233; 99239 ==

== ENCOUNTER 2023-12-06 13:32 | Outpatient (AMB) | payer OTHER, SELFPAY ==
--- NOTE | 2023-12-06 13:39 | A.OFFVISCC_ITS ---
Intake Vital Signs 12/06/23 13:48 BP 118/74 Blood Pressure Location Lt radial Position Sitting Pulse 88 Pulse Source Pulse Oximeter Pulse Oximetry (%) 97 Oxygen Delivery Method Room Air 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: mat intake Intake Note: the patient presents for a mat visit Post Office Manager Required: No Allergies No Known Allergies Allergy (Verified 12/06/23 13:49) Do you need a note to return to daycare/school/sports/work: No HPI mat intake HPI Details Patient presents for intake Referred by [facility] PCP- Mala Palacios through [place], last appt 3 months ago She is stably housed and lives with her 27yo son She reports her boyfriend will be a support to her for recovery She identifies GI discomfort (nausea, vomiting, diarrhea) as a big barrier to recovery She started using alcohol 10 years ago, she reports 6 years ago her father and that was a trigger for her that escalated the ETOH use She drinks 4 nips daily which she reports is a recent decrease from 7 nips daily. [place] [facility] [place], she was successfully detoxed with a phenobarb taper, but reports she resumed alcohol use upon discharge. Past substance use includes: cocaine ( rarely ), occasional marijuana use, and 1/2 pack cigarettes a day for 32 years She reports she experiences stomach pain, shakes , and lethargy when she attempts to stop drinking. Longest period of recovery she can identify is for a stretch of 24 days when she was in a detox facility 2 yrs ago She reports going to detox 9 times, she has never participated in an outpatient program She has previously trialed naltrexone/vivitrol and reports she had a bad reaction to the vivitrol that required hospitalization She is currently prescribed acamprosate that she intermittently takes She has no current providers, is interested in referral for [facility] SHe reports she has depression and anxiety Was hospitalized psychiatrically one time, 3 yrs ago at [facility] Denies hx of self injurious behavior/thoughts Denies hx or current SI/HI NKA PMHx: HTN (uncontrolled runs high ), complicated ETOH withdrawal, ETOH induced pancreatitis, and Hep C (she reports she was treated and cleared of virus), she has chronic hypomagnesemia that she takes magnesium oxide for Surgical hx of , multiple cyst removals to face/wrist She has an IUD, LMP approx 6 yrs ago [facility] Medical History Pancreatic insufficiency Gastroesophageal reflux disease Essential hypertension Mood disorder Cannabis use disorder Hepatitis C Tobacco use disorder Alcohol use disorder Social History Household Members: Family and None Housing: House Alcohol intake: current Alcohol intake frequency: 3 or more drinks per day Alcohol type: hard liquor Patient Tobacco Use Status: Never used Tobacco Tobacco use type: Cigarette Cigarettes Per Day: 10 e-Cigarette/Vaping Use: Never Used Second Hand Smoke Exposure: No Substance Use Type: Marijuana service: No Review of Systems Const Reports as per HPI GI Reports abdominal pain, Denies coffee ground emesis, Reports dyspepsia, Reports nausea, Reports vomiting and Denies hematemesis Psych Reports depression Physical Exam Vital Signs: Last Vital Signs Pulse 88 12/06/23 13:48 BP 118/74 12/06/23 13:48 Pulse Ox 97 12/06/23 13:48 Oxygen Delivery Method Room Air 12/06/23 13:48 Const General: no acute distress and tired appearing Resp Effort & Inspection: normal respiratory effort Psych Appearance: grossly normal Mental Status: mental status grossly normal Speech and movement: Normal speech and movement present Affect: Sad affect present Attitude: Guarded attititude/behavior present Thought content: suicidality, no homicidality and Depressive thoughts present Assessment & Plan Assessment & Plan (1) Alcohol use disorder: Code(s): F10.90 - Alcohol use, unspecified, uncomplicated Plan: -She is not a candidate for outpatient detox due to her hx of complicated withdrawal -Discussed with her to start measuring her alcohol use and begin cutting down this week by 1 oz -Reviewed with her the risks of stopping alcohol use suddenly -Sent rx for comfort meds to address GI symptoms patient is experiencing (dicyclomine - abd cramping, zofran for n/v, and sucralfate for dyspepsia) med education provided -Referral to [facility] for AUD/Depression -Encouraged her to consider detox with a step down to [facility], she is resistant to this at this time due to not wanting to be away from her house for an extended time -Clonidine refilled upon pt request -Labwork ordered for patient to complate on Sunday to check lfts, electrolytes -Follow up 1 week Orders: Orders Comprehensive Met. Panel 12/10/23 F10.90 - Alcohol use, unspecified, uncomplicated Referrals Counseling Referral F10.90 - Alcohol use, unspecified, uncomplicated, F39 - Unspecified mood [affective] disorder Medications: New sucralfate swish in mouth and swallow; use after food/drink 10 mL PO QID 1,000 mL 0RF ondansetron 4 mg PO Q8H PRN 30 tabs 0RF nausea and vomiting clonidine HCl 0.1 mg PO TID PRN 90 tabs 0RF Anxiety dicyclomine 20 mg PO TID 90 tabs 0RF Coding Level of Care Code New Pt Level 4 (94351) Diagnoses Alcohol use disorder F10.90
[2023-12-06 13:48] VITALS: BP 118/74; PULSE 88; O2SAT 97
== END 2023-12-06 15:11 | disposition home or self-care (01) ==
PROVIDERS: PCP Internal Medicine; Visit Provider Nurse Practitioner Family
DX: F10.90 Alcohol use, unspecified, uncomplicated (principal)
CPT/HCPCS: 99204

== ENCOUNTER → 2023-12-06 13:32 | Outpatient (BNVA) | payer OTHER, SELFPAY | PROVIDERS: PCP Internal Medicine; Visit Provider Nurse Practitioner Family | DX: F10.20 Alcohol dependence, uncomplicated (principal) | CPT/HCPCS: 99202 ==

== ENCOUNTER 2023-12-09 22:36 | Inpatient (IN) | payer OTHER, SELFPAY ==
--- NOTE | ~2023-12-09 | CT_ITS ---
EXAMINATION: CT HEAD WITHOUT CONTRAST CLINICAL INFORMATION: Altered mental status. Fall. COMPARISON: None available. TECHNIQUE: Contiguous axial imaging was performed from the skull base to vertex without intravenous administration of contrast. This CT examination was performed using dose optimization techniques as appropriate, variously including the following: *Automated exposure control *Adjustment of mA and/or kV according to patient size (this includes techniques or standardized protocols for targeted exams where dose is matched to indication/reason for exam; i.e. extremities or head) *Use of iterative reconstruction technique DLP: 572 mGy-cm FINDINGS: The lateral, third and fourth ventricles are normally outlined. The cortical sulci and basal cisterns are normally outlined as well. There is no acute territorial defect, hemorrhage or midline shift. The extra-axial spaces are unremarkable. Calvarium: Intact. Maxillofacial sinuses and mastoids: Clear as visualized. CT/CT head/brain wo IV con IMPRESSION: No acute intracranial pathology.
[2023-12-09 22:51] VITALS: BP 175/88; PULSE 84; RESP 18; TEMP 36.9; O2SAT 97; BMI 21.4
--- NOTE | 2023-12-09 22:59 | PC.NURSE ---
pt yesifrienelias Min T# [phone] please call with any questions
--- NOTE | 2023-12-09 23:10 | PC.NURSE ---
This RN speaking to pts son Ken on the phone. Pts son very concerned, states this is her second episode in 4 days. Per son, she has become violent, aggressive and has been hallucinating. Son states she is a long time alcoholic and drinks a sleeve of vodka/day. Son states she has been consistently drinking, no chance of withdrawals. Per son, she was recently seen at [facility] yesterday, had a CT of head/brain but left AMA. Pt screaming in room, requesting to use the bathroom. This RN and emission technician assisted pt into the bathroom where she became uncooperative and started trying to strike staff. Pt assisted back to room 13 by staff and security, pt continued being violent with staff, hitting/kicking. Pt medicated with Haldol, Ativan and Benadryl IM (see MAR) @ 2320 and placed into restraints for staff/patient safety.
--- NOTE | 2023-12-09 23:11 | ED_ITS ---
HPI - Alcohol General Chief Complaint: ETOH/Substance Use Stated Complaint: ETOH/vomiting Time Seen by Provider: 12/09/23 23:02 Source: family and EMS Mode of arrival: EMS Limitations: other (Intoxicated) History of Present Illness HPI narrative: Patient alcoholic with history of hypertension, hyperlipidemia, anxiety been drinking heavily lately was at [facility] on 12/07/23 afternoon for hallucinations and alcoholism left against medical advise on 12/08/23 came home knocked over a space heater no head injury started drinking again per son on arrival patient is very belligerent and uncooperative. Patient's son was questioning about ammonia level but patient never had elevated ammonia level in the past , according to son patient did not fall after coming from [facility] and had CT scan of head done at [facility] Related Data Home Medications Medication Instructions Recorded Confirmed acamprosate 333 mg tablet,delayed 666 mg PO TID 11/01/23 12/01/23 release bupropion HCl 150 mg 24 hr tablet, 150 mg PO QAM 11/01/23 12/01/23 extended release cholecalciferol (vitamin D3) 50 50 mcg PO DAILY 11/01/23 12/01/23 mcg (2,000 unit) tablet citalopram 40 mg tablet 40 mg PO DAILY 11/01/23 12/01/23 folic acid 1 mg tablet 1 mg PO DAILY 11/01/23 12/01/23 hydroxyzine HCl 25 mg tablet 25 mg PO Q6H PRN anxiety 11/01/23 12/01/23 lipase 2,600-protease 2 cap PO DAILY@1600 11/01/23 12/01/23 8,800-amylase 15,200 unit capsule, delayed rel (Pancreaze) losartan 50 mg tablet 50 mg PO DAILY 11/01/23 12/01/23 magnesium oxide 400 mg (241.3 mg 400 mg PO BID 11/01/23 12/01/23 magnesium) tablet pantoprazole 40 mg tablet,delayed 40 mg PO DAILY 11/01/23 12/01/23 release thiamine HCl (vitamin B1) 100 mg 100 mg PO DAILY 11/01/23 12/01/23 tablet trazodone 100 mg tablet 100 mg PO BEDTIME 11/01/23 12/01/23 losartan 50 mg tablet 50 mg PO DAILY 12/10/23 12/10/23 metoprolol succinate 25 mg 50 mg PO BID 12/10/23 12/10/23 tablet,extended release 24 hr Previous Rx's Medication Instructions Recorded clonidine HCl 0.1 mg tablet 0.1 mg PO TID PRN Anxiety #90 tabs 12/06/23 dicyclomine 20 mg tablet 20 mg PO TID #90 tabs 12/06/23 ondansetron 4 mg disintegrating 4 mg PO Q8H PRN nausea and 12/06/23 tablet vomiting #30 tabs sucralfate 100 mg/mL oral 10 ml PO QID #1,000 mL 12/06/23 suspension Allergies Allergy/AdvReac Type Severity Reaction Status Date / Time No Known Allergies Allergy Verified 12/09/23 22:55 Review of Systems 2 Review of Systems: Yes Unobtainable due to mental condition [facility] Past Medical History Medical History Pancreatic insufficiency Gastroesophageal reflux disease Essential hypertension Mood disorder Cannabis use disorder Hepatitis C Tobacco use disorder Alcohol use disorder Social History Social History Household Members: Family and None Housing: House Alcohol intake: current Alcohol intake frequency: 0-2 drinks per day Alcohol type: hard liquor Patient Tobacco Use Status: Never used Tobacco Tobacco use type: Cigarette Cigarettes Per Day: 10 e-Cigarette/Vaping Use: Never Used Second Hand Smoke Exposure: No Substance Use Type: Marijuana Advance Directives: No Advance Directives Information Provided: Yes Nutrition Risks: No Nutritional Risk service: No Physical Exam ED Vital Signs: Vital Signs - 24 hr 12/09/23 22:51 12/09/23 23:50 12/10/23 00:05 Temperature 98.5 F 97.0 F 97.1 F Pulse Rate 84 91 79 Respiratory Rate 18 16 16 Blood Pressure 175/88 H 169/78 H 115/60 Pulse Oximetry 97 96 95 Oxygen Delivery Method Room Air Room Air Room Air 12/10/23 00:20 Temperature 97.0 F Pulse Rate 79 Respiratory Rate 16 Blood Pressure 118/63 Pulse Oximetry 94 Oxygen Delivery Method Room Air BMI result Body Mass Index 21.4 Appearance: Alert. . No acute distress intoxicated. Eyes: PERRLA, No Nystagmus ENT: Pharynx normal. Oral Mucosa moist Neck: Normal inspection. Neck supple. CVS: Normal heart rate and rhythm. Pulses normal. Respiratory: No respiratory distress. Equal air entry bilateral, no wheezing/rales/rhonchi Abdomen: Soft and nontender. Bowel sounds are present, no mass palpable, no CVA tenderness Skin: Skin warm and dry. Normal skin color. Normal skin turgor. Extremities: No lower extremity edema. No calf tenderness Neuro: Intoxicated No motor deficit. Medical Decision Making Medical Decision Making [facility] Narrative: Patient's history of alcoholism been to detox multiple times been hallucinating can confused for last few days was seen at [facility] on 12/07 at workup done including CT scan of the head which was negative ammonia was 87, on arrival in the ED patient was very agitated no recent fall workup showed ammonia level of 369 will give patient rectal lactulose Differential Diagnosis Differential Diagnoses: The differential diagnosis associated with the presentation includes Hepatic encephalopathy/alcoholic encephalopathy/Wernicke's encephalopathy/metabolic Admission/Observation Consideration of admission/observation: Escalation of care including admission/observation considered Consult Healthcare Provider Management of the patient was discussed with: Hospitalist Lab Data [facility] Lab Attestation statement: I reviewed the patient's lab results. 12/10/23 05:48 12/10/23 05:48 Labs: Lab Results 12/10/23 Range/Units 00:03 WBC 5.3 (4.8-10.8) X10*3/uL RBC 3.26 L (4.20-5.50) X10*6/uL Hgb 11.1 L (12.0-16.0) g/dl Hct 32.8 L (37.0-47.0) % MCV 100.6 H (80.0-98.0) fL MCH 34.0 H (27.0-33.0) pg MCHC 33.8 (31.0-35.0) g/dl RDW 16.2 H (11.0-16.0) % Plt Count 194 (160-400) X10*3/uL MPV 9.4 (9.4-12.3) fL Immature Gran % (Auto) 0.4 (0.0-0.4) % Neut % (Auto) 47.1 (45-73) % Lymph % (Auto) 42.6 H (20-40) % [place] % (Auto) 7.2 (2-11) % Eos % (Auto) 1.9 (0-4) % Baso % (Auto) 0.8 (0-2) % Lymph # (Auto) 2.2 (1.2-4.9) X10*3/uL [place] # (Auto) 0.4 (0.1-1.2) X10*3/uL Eos # (Auto) 0.1 (0.0-0.4) X10*3/uL Baso # (Auto) 0.0 (0.0-0.2) X10*3/uL Abs Immat Gran (auto) 0.02 (0.00-0.03) X10*3/uL Absolute Neuts (auto) 2.5 (2.0-8.3) x10*3/uL Absolute Nucleated RBC 0.000 (0.0-0.012) X10*3/uL Nucleated RBC % (auto) 0.0 (0.0-0.2) /100WBC PT 12.5 (11.1-13.3) SEC INR 1.0 (0.9-1.1) Sodium 147 H (135-145) mmol/L Potassium 3.4 (3.3-5.1) mmol/L Chloride 110 H (96-108) mmol/L Carbon Dioxide 22 (22-29) mmol/L Anion Gap 18 (12-20) BUN 9 (9-16) mg/dL Creatinine 0.68 (0.5-1.4) mg/dL Estim Creat Clear Calc 71.8 Estimated GFR > 60 Random Glucose 107 (60-115) mg/dL Calcium 9.2 (8.4-10.2) mg/dL Magnesium 1.6 (1.6-2.6) mg/dL Total Bilirubin 0.3 (0.0-1.0) mg/dL AST 75 H (5-31) U/L ALT 55 H (0-31) U/L Alkaline Phosphatase 101 (39-117) U/L Ammonia 369 H (13-55) umol/L Total Protein 6.8 (6.5-8.0) g/dL Albumin 4.0 (3.5-5.0) g/dL Lipase 18 (8-78) U/L Ethyl Alcohol 152 mg/dL Independent Interpretation I performed an independent interpretation of an: EKG and CT Scan Interpretation: Normal sinus rhythm heart rate 80 beats per minute normal interval normal axis no acute ST T wave changes Medications Administered Generic Name Dose Route Start Last Admin Trade Name Freq PRN Reason Stop Dose Admin Dextrose 1,000 mls @ 100 mls/hr 12/10/23 03:00 12/10/23 03:25 D5w IVCONT 100 mls/hr .Q10H SAMANTHA Administration Phenobarbital Sodium 69 mg 12/10/23 06:30 12/10/23 06:10 Phenobarbital Sodium 130 Mg/Ml Vial Im Q3hx2 IM 12/10/23 09:31 69 mg Q3H SAMANTHA Administration Discontinued Medications Generic Name Dose Route Start Last Admin Trade Name Darnellq PRN Reason Stop Dose Admin Diphenhydramine HCl 50 mg 12/09/23 23:17 12/09/23 23:20 Diphenhydramine Hcl 50 Mg/Ml Vial IM 12/09/23 23:18 50 mg ONCE ONE Administration Haloperidol Lactate 5 mg 12/09/23 23:17 12/09/23 23:20 Haloperidol Lactate 5 Mg/Ml Vial IM 12/09/23 23:18 5 mg STAT STA Administration Sodium Chloride 1,000 mls @ 999 mls/hr 12/09/23 23:22 12/10/23 01:21 Ns IV 12/10/23 00:22 Infused .Q1H1M ONE Infusion Thiamine HCl 500 mg/ Sodium 105 mls @ 210 mls/hr 12/10/23 03:11 12/10/23 04:58 Chloride IV 12/10/23 03:40 Infused ONCE ONE Infusion Lactulose 200 gm 12/10/23 01:46 12/10/23 02:54 Lactulose 320 Gm/480 Ml Solution CA 12/10/23 01:47 Not Given ONCE ONE Lactulose 200 gm 12/10/23 02:15 12/10/23 02:27 Lactulose 20 Gm/30 Ml Solution CA 12/10/23 02:16 200 gm ONCE ONE Administration Lorazepam 2 mg 12/09/23 23:24 12/09/23 23:20 Lorazepam 2 Mg/Ml Vial IM 12/09/23 23:25 2 mg STAT STA Administration Phenobarbital Sodium 92 mg 12/10/23 03:30 12/10/23 03:50 Phenobarbital Sodium 130 Mg/Ml Im Once IM 12/10/23 03:31 92 mg ONCE ONE Administration Critical Care Time Critical Care Time Critical Care Time: Yes Total Critical Care Time: 55 Attestation: The patient was critically ill with a high probability of imminent or life threatening deterioration. I spent greater than 60?minutes of discontinuous time evaluating the patient,delivering critical care at the bedside, discussing and evaluating pertinent data with consultants. Critical care time does not include time spent performing separately billable procedures or teaching. Total time spent performing critical care was ?55??minutes. Discharge Plan Discharge Clinical Impression: Acute hepatic encephalopathy, Alcohol use disorder Patient Disposition: Admitted As Inpatient
[2023-12-09] MEDS: Haloperidol Lactate 5 MG/ML VIAL IM (23:20)
[2023-12-09] MEDS: diphenhydrAMINE HCL 50 MG/ML VIAL IM (23:20)
[2023-12-09] MEDS: LORazepam 2 MG/ML VIAL IM (23:20)
[2023-12-09 23:50] VITALS: BP 169/78; PULSE 91; RESP 16; TEMP 36.1; O2SAT 96
[2023-12-10] VITALS (7 sets, daily range): BP systolic 115–187; BP diastolic 60–96; PULSE 69–87; RESP 15–28; TEMP 36.1–36.9; O2SAT 92–98
[2023-12-10] MEDS: 0.9 % Sodium Chloride 1,000 ML 999 ML IV (00:05)
--- NOTE | 2023-12-10 00:05 | PC.NURSE ---
Pt sleeping in bed, bilat leg restraints removed @ this time. IV established, labs obtained, IVF infusing per MAR. 1:1 sitter at bedside.
[2023-12-10 00:09] LABS: MANUAL DIFF FLAG NO
[2023-12-10 00:10] LABS: Basophils Percent Auto 0.8 % (0-2); Eosinophils Absolute Auto 0.1 X10*3/uL (0.0-0.4); Eosinophils Percent Auto 1.9 % (0-4); Hematocrit 32.8 % (37.0-47.0); Hemoglobin 11.1 g/dl (12.0-16.0); Imm Gran Abs Auto 0.02 X10*3/uL (0.00-0.03); Imm Gran Pct Auto 0.4 % (0.0-0.4); Lymphocytes Absolute Auto 2.2 X10*3/uL (1.2-4.9); Lymphocytes Percent Auto 42.6 % (20-40); Mean Corpuscular HGB Conc 33.8 g/dl (31.0-35.0); Mean Corpuscular Volume 100.6 fL (80.0-98.0); Mean Platelet Volume 9.4 fL (9.4-12.3); Monocytes Absolute Auto 0.4 X10*3/uL (0.1-1.2); Monocytes Percent Auto 7.2 % (2-11); Neutrophils Absolute Auto 2.5 x10*3/uL (2.0-8.3); Neutrophils Percent Auto 47.1 % (45-73); Platelet Count 194 X10*3/uL (160-400); Red Blood Count 3.26 X10*6/uL (4.20-5.50); Red Cell Distribution Width 16.2 % (11.0-16.0); White Blood Count 5.3 X10*3/uL (4.8-10.8)
[2023-12-10 00:15] LABS: Prothrombin Time 12.5 SEC (11.1-13.3)
--- NOTE | 2023-12-10 00:15 | PC.NURSE ---
Assumed care of pt. Pt currently restrained w/bilat wrists, VSS, 1:1 at bedside for safety. Pt eyes closed, snoring. Barring acute changes in agitation, plan to remove all restraints at 0020 per policy.
[2023-12-10 00:25] LABS: Alanine Aminotransferase 55 U/L (0-31); Alkaline Phosphatase 101 U/L (39-117); Anion Gap 18 (12-20); Aspartate Amino Transferase 75 U/L (5-31); Bilirubin Total 0.3 mg/dL (0.0-1.0); Blood Urea Nitrogen 9 mg/dL (9-16); Calcium 9.2 mg/dL (8.4-10.2); Carbon Dioxide 22 mmol/L (22-29); Chloride 110 mmol/L (96-108); Creatinine Clr Calc Pharmacy 71.8; Estimated Glomerular Filt Rate > 60; Ethanol 152 mg/dL; Glucose Random 107 mg/dL (60-115); Lipase 18 U/L (8-78); Magnesium 1.6 mg/dL (1.6-2.6); Potassium 3.4 mmol/L (3.3-5.1); Sodium 147 mmol/L (135-145); Total Protein 6.8 g/dL (6.5-8.0)
[2023-12-10 00:31] LABS: Ammonia 369 umol/L (13-55)
[2023-12-10] MEDS: Lactulose 20 GM/30 ML SOLUTION 200 GM PR (02:27)
--- NOTE | 2023-12-10 02:47 | PC.NURSE ---
Pt able to tolerate lactulose enema for approximately 15 minutes of 30-60 minute order. MD made aware.
--- NOTE | 2023-12-10 03:01 | P.HPHOSP_ITS ---
History of Present Illness Date of Service: 12/10/23 Attending physician on admission: Jimena Pina Chief Complaint: Agitation Jackelyn Bledsoe is a 48 years old woman with past medical history significant for alcohol abuse, chronic hepatitis-C infection, GERD and pancreatic insufficiency was brought to the hospital by her son due to severe agitation. HPI was provided by ED provider, ED staff and ED triage note as the patient was sedated and unable to provide her HPI at the time evaluation. It seems like the patient left [facility] against medical advice because she felt they were not helping her. She was therefore alcohol detox. It seems like the patient went home, and not over space heater and began to have visual hallucination. She started to drink again -six nips tonight. The patient needed physical and chemical restraints in order to control her agitation. In the ED, her vital signs were found to be stable. Blood workup is remarkable for elevated AST and ALT. Bilirubin and alk phos are normal. INR is normal. Ammonia is 369. Sodium level is 147. Ethanol level 152. Renal function is normal. ED tx: Haldol 5 mg IM, Benadryl 50 mg IM, Ativan 2 mg IM NS 1 L bolus. Lactulose 200 mg MT (retention enema)/ Review of Systems 2 Review of Systems: Yes Unobtainable due to mental status [facility] Medical History Pancreatic insufficiency Gastroesophageal reflux disease Essential hypertension Mood disorder Cannabis use disorder Hepatitis C Tobacco use disorder Alcohol use disorder Social History Household Members: Family and None Housing: House Alcohol intake: current Alcohol intake frequency: 0-2 drinks per day Alcohol type: hard liquor Patient Tobacco Use Status: Never used Tobacco Tobacco use type: Cigarette Cigarettes Per Day: 10 e-Cigarette/Vaping Use: Never Used Second Hand Smoke Exposure: No Substance Use Type: Marijuana Advance Directives: No Advance Directives Information Provided: Yes Nutrition Risks: No Nutritional Risk service: No Meds Allergies Allergy/AdvReac Type Severity Reaction Status Date / Time No Known Allergies Allergy Verified 12/09/23 22:55 Active Medications: Current Medications Heparin Sodium (Porcine) (Heparin Sodium,Porcine 5,000 Unit/Ml Vial) 5,000 unit SUBCUT Q8H SAMANTHA Dextrose (D5w) 1,000 mls @ 100 mls/hr IVCONT .Q10H [facility] Pharmacy Consult (Consult Rx Etoh Phenob Im/Po) 1 each MISCELLANE ONCE PRN; Protocol PRN Reason: Consult order Sodium Chloride (0.9 % Sodium Chloride Flush 3 Ml Syringe) 3 ml IVFLUSH QSHIFT [facility] Home Medications Medication Instructions Recorded Confirmed Last Taken Type acamprosate 333 mg tablet,delayed 666 mg PO TID 11/01/23 12/01/23 11/01/23 History release bupropion HCl 150 mg 24 hr tablet, 150 mg PO QAM 11/01/23 12/01/23 11/01/23 History extended release cholecalciferol (vitamin D3) 50 50 mcg PO DAILY 11/01/23 12/01/23 11/01/23 History mcg (2,000 unit) tablet citalopram 40 mg tablet 40 mg PO DAILY 11/01/23 12/01/23 11/01/23 History folic acid 1 mg tablet 1 mg PO DAILY 11/01/23 12/01/23 11/01/23 History hydroxyzine HCl 25 mg tablet 25 mg PO Q6H PRN anxiety 11/01/23 12/01/23 Unknown History lipase 2,600-protease 2 cap PO DAILY@1600 11/01/23 12/01/23 10/31/23 History 8,800-amylase 15,200 unit capsule, delayed rel (Pancreaze) losartan 50 mg tablet 50 mg PO DAILY 11/01/23 12/01/23 11/01/23 History magnesium oxide 400 mg (241.3 mg 400 mg PO BID 11/01/23 12/01/23 11/01/23 History magnesium) tablet pantoprazole 40 mg tablet,delayed 40 mg PO DAILY 11/01/23 12/01/23 11/01/23 History release thiamine HCl (vitamin B1) 100 mg 100 mg PO DAILY 11/01/23 12/01/23 11/01/23 History tablet trazodone 100 mg tablet 100 mg PO BEDTIME 11/01/23 12/01/23 10/31/23 History losartan 50 mg tablet 50 mg PO DAILY 12/10/23 12/10/23 Unknown History metoprolol succinate 25 mg 50 mg PO BID 12/10/23 12/10/23 Unknown History tablet,extended release 24 hr Physical Exam 2 Vital Signs and Narrative: Vital Signs: Last Vital Signs Temp 97.0 F 12/10/23 00:20 Pulse 79 12/10/23 00:20 Resp 16 12/10/23 00:20 BP 118/63 12/10/23 00:20 Pulse Ox 94 12/10/23 00:20 O2 Del Method Room Air 12/10/23 00:20 BMI result Body Mass Index 21.4 Const: General: other (Sedated. Awakens to painful stimuli ) HEENT: Head: Yes normocephalic and Yes atraumatic Mouth: mucous membranes dry Eyes: Sclerae: sclerae normal Direct Ophthalmoscopy: normal light reflex Resp: Auscultation: clear to auscultation bilaterally Cardio: Rate: tachycardic Rhythm: regular rhythm GI: Inspection: Yes normal to inspection and No distended Palpation (GI): H epatosplenomegaly present Auscultation: normal bowel sounds Skin: General skin exam: no rashes or lesions noted, dry skin and other (No jaundice) Neuro: General: other (Sedated. No asterixis. ) Extrem: General: Yes normal to inspection Psych: Mental Status: other (Sedated) Speech and movement: Slurred speech present Results Labs 12/10/23 00:03 12/10/23 00:03 Labs: Laboratory Results - last 24 hr 12/10/23 00:03 MCV 100.6 H MCH 34.0 H MCHC 33.8 RDW 16.2 H Plt Count 194 MPV 9.4 Immature Gran % (Auto) 0.4 Neut % (Auto) 47.1 Lymph % (Auto) 42.6 H Coal % (Auto) 7.2 Eos % (Auto) 1.9 Baso % (Auto) 0.8 Lymph # (Auto) 2.2 Coal # (Auto) 0.4 Eos # (Auto) 0.1 Baso # (Auto) 0.0 Abs Immat Gran (auto) 0.02 Absolute Neuts (auto) 2.5 Absolute Nucleated RBC 0.000 Nucleated RBC % (auto) 0.0 PT 12.5 INR 1.0 Anion Gap 18 Estim Creat Clear Calc 71.8 Estimated GFR > 60 Random Glucose 107 Calcium 9.2 Magnesium 1.6 Total Bilirubin 0.3 AST 75 H ALT 55 H Alkaline Phosphatase 101 Ammonia 369 H Total Protein 6.8 Albumin 4.0 Lipase 18 Ethyl Alcohol 152 Assessment and Plan (1) Alcoholic encephalopathy: Status: Acute (2) Hypernatremia: Status: Acute (3) Alcohol use disorder: Status: Acute (4) Essential hypertension: Status: Acute (5) Pancreatic insufficiency: Status: Acute (6) Hyperammonemia: Status: Acute (7) Hepatitis C: Qualifiers: Viral hepatitis chronicity: chronic Hepatic coma status: without hepatic coma Qualified Code(s): B18.2 - Chronic viral hepatitis C Status: Acute Plan Jackelyn Bledsoe is a 48 years old woman admitted with: * Acute encephalopathy likely secondary to alcohol withdrawal symptoms: Agitation, confusion, hallucinations. Admit to hospitalist service. Keep NPO. Telemetry. Start CIWA protocol: Thiamine, folic acid and multivitamins + phenobarbital. Start IV fluids with D5 (after Thiamine administration). Check urine drug screen. Aspiration precautions. * Hyperammonemia. Likely due to alcohol. Could be hepatic encephalopathy but no stigmata of chronic liver disease noted. No asterixis. Lactulose enema given in the ED. Continue to monitor ammonia. * Hypernatremia secondary to poor water intake. Might be contributing to patient's encephalopathy. Start IV fluids: D5. Continue to monitor sodium level. * Elevated AST and LFT likely multifactorial: Chronic hepatitis-C infection and alcoholic-induced. Continue to monitor. * GERD. Pepcid IV. * Chronic hepatitis-C infection. Treated? * History of pancreatic insufficiency. Taking Creon? * Essential hypertension. Continue losartan and metoprolol when able. BP is controlled. DVT prophylaxis: Heparin subcut Code status: Full Patient will need hospitalization for acute encephalopathy likely secondary to alcohol withdrawal symptoms. Patient will need close monitoring (CIWA), phenobarbital protocol, thiamine and IV fluids. Quality Stroke Does the patient have a stroke diagnosis?: No VTE Prior VTE?: No VTE Risk Level:: Medical - moderate - high VTE Device Contraindication: Treatment Not Indicated VTE Drug Contraindication: N/A - Med Ordered
--- NOTE | 2023-12-10 03:14 | ECG_ITS ---
Test Reason : ALT MENTAL STATUS Blood Pressure : / mmHG Vent. Rate : 080 BPM Atrial Rate : 080 BPM P-R Int : 140 ms QRS Dur : 088 ms QT Int : 402 ms P-R-T Axes : 059 052 056 degrees QTc Int : 463 ms Normal sinus rhythm Normal ECG When compared with ECG of 30-NOV-2023 22:05, No significant change was found Referred By: Luis Bernstein Electronically Signed By:Louie Last
[2023-12-10] MEDS: Dextrose 5 % 1,000 ML 100 ML IVCONT ×2 (03:25→15:10)
[2023-12-10] MEDS: PHENobarbitaL sodium 130 MG/ML IM ONCE 92 MG IM (03:50)
[2023-12-10] MEDS: Thiamine HCL 500 MG in 0.9 % Sodium Chloride 100 ML 210 MG IV (03:51)
[2023-12-10 05:54] LABS: MANUAL DIFF FLAG NO
[2023-12-10 05:55] LABS: Basophils Percent Auto 0.8 % (0-2); Eosinophils Absolute Auto 0.1 X10*3/uL (0.0-0.4); Eosinophils Percent Auto 1.2 % (0-4); Hematocrit 33.3 % (37.0-47.0); Imm Gran Abs Auto 0.01 X10*3/uL (0.00-0.03); Imm Gran Pct Auto 0.2 % (0.0-0.4); Lymphocytes Percent Auto 41.9 % (20-40); Mean Corpuscular Volume 102.8 fL (80.0-98.0); Mean Platelet Volume 9.3 fL (9.4-12.3); Monocytes Absolute Auto 0.4 X10*3/uL (0.1-1.2); Monocytes Percent Auto 7.6 % (2-11); Neutrophils Absolute Auto 2.3 x10*3/uL (2.0-8.3); Neutrophils Percent Auto 48.3 % (45-73); Platelet Count 192 X10*3/uL (160-400); Red Blood Count 3.24 X10*6/uL (4.20-5.50); White Blood Count 4.9 X10*3/uL (4.8-10.8)
[2023-12-10 06:09] LABS: Alanine Aminotransferase 50 U/L (0-31); Albumin Level 3.9 g/dL (3.5-5.0); Alkaline Phosphatase 96 U/L (39-117); Anion Gap 16 (12-20); Aspartate Amino Transferase 65 U/L (5-31); Bilirubin Total 0.2 mg/dL (0.0-1.0); Blood Urea Nitrogen 10 mg/dL (9-16); Calcium 8.7 mg/dL (8.4-10.2); Carbon Dioxide 23 mmol/L (22-29); Chloride 114 mmol/L (96-108); Creatinine Clr Calc Pharmacy 80.1; Estimated Glomerular Filt Rate > 60; Glucose Random 91 mg/dL (60-115); Magnesium 1.5 mg/dL (1.6-2.6); Potassium 3.6 mmol/L (3.3-5.1); Sodium 149 mmol/L (135-145); Total Protein 6.3 g/dL (6.5-8.0)
[2023-12-10] MEDS: PHENobarbitaL sodium 130 MG/ML VIAL IM Q3Hx2 69 MG IM ×2 (06:10→08:05)
[2023-12-10] MEDS: Multivitamin TABLET 1 TAB PO (08:06)
[2023-12-10] MEDS: Famotidine/PF 20 MG/2 ML VIAL IVPUSH ×2 (08:06→20:46)
[2023-12-10] MEDS: Heparin Sodium,Porcine 5,000 UNIT/ML VIAL 5000 UNIT SUBCUT ×2 (08:06→20:45)
[2023-12-10] MEDS: Magnesium Sulfate/H2O 2 GM/50 ML PIGGYBACK IV (08:06)
[2023-12-10] MEDS: Folic Acid 1 MG TABLET PO (08:06)
--- NOTE | 2023-12-10 09:02 | MHC.CM.PN ---
Attempted to meet with patient in regards to discharge planning. Patient currently sleeping. No family present. Will attempt to meet again. Copy of HCP obtained from [facility]. Continue to monitor for d/c needs.
--- NOTE | 2023-12-10 09:10 | PC.NURSE ---
Patient with intermittent periods of agitation when needing to go to the bathroom. Assited to bathroom multiple times, patient with multiple episodes of loose stools. 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
--- NOTE | 2023-12-10 09:14 | PHA.MEDREC ---
Pharmacy Consult ? Medication Reconciliation Pharmacy has completed the medication reconciliation. Confirmed patient medications from claim history and with son over the phone.
--- NOTE | 2023-12-10 10:28 | PC.NURSE ---
Patient resting comfortably, able to be placed on monitor. Denies pain or discomfort, son at bedside.
[2023-12-10 14:11] LABS: Amphetamine Screen Urine Not Detected (Not Detect); Barbiturates, Urine POSITIVE (Not Detect); Benzodiazepines Screen Urine Not Detected (Not Detect); Cannabinoid Screen Urine POSITIVE (Not Detect); Cocaine Screen Urine Not Detected (Not Detect); Fentanyl, urine Not Detected (Not Detect); Opiate Screen Urine Not Detected (Not Detect); Phencyclidine Screen Urine Not Detected (Not Detect)
--- NOTE | 2023-12-10 14:14 | PM.EVENT ---
Event Note Date of Service: 12/10/23 Event Note: 48 years old woman admitted with acute alcoholic encephalopathy Acute hepatic encephalopathy Agitation, confusion, hallucinations. Telemetry. Thiamine, folic acid and multivitamins phenobarbital protocol IV fluids with D5W Aspiration precautions Hyperammonemia. Likely due to alcohol use. hepatic encephalopathy but no stigmata of chronic liver disease noted. No asterixis. Lactulose enema given in the ED. Continue to monitor ammonia. Hypernatremia secondary to poor water intake. D5W. Continue to monitor sodium level. Hypomagenesemia secondary to alcohol abuse replete Transaminitis Chronic hepatitis-C infection and alcoholic-induced. Continue to monitor. GERD. Pepcid IV. Chronic hepatitis-C infection. unknown if treated History of pancreatic insufficiency Taking Creon Essential hypertension. Continue losartan and metoprolol DVT prophylaxis: Heparin subcut Attending Dr. Randhawa Code status: Full Patient will need hospitalization for acute encephalopathy likely secondary to alcohol withdrawal symptoms. Patient will need close monitoring (CIWA), phenobarbital protocol, thiamine and IV fluids. Time Spent With Patient Time: Total time managing care of this patient today ____ minutes.
[2023-12-10 15:07] LABS: Anion Gap 16 (12-20); Blood Urea Nitrogen 7 mg/dL (9-16); Calcium 9.8 mg/dL (8.4-10.2); Carbon Dioxide 25 mmol/L (22-29); Chloride 107 mmol/L (96-108); Creatinine Clr Calc Pharmacy 76.3; Estimated Glomerular Filt Rate > 60; Glucose Random 92 mg/dL (60-115); Magnesium 1.6 mg/dL (1.6-2.6); Potassium 3.3 mmol/L (3.3-5.1); Sodium 145 mmol/L (135-145)
[2023-12-10] MEDS: Losartan Potassium 50 MG TABLET PO (15:53)
[2023-12-10] MEDS: Metoprolol Succinate ER 100 MG TAB.ER.24H PO (15:53)
[2023-12-10] MEDS: Dicyclomine HCl 10 MG CAPSULE 20 MG PO ×2 (15:53→20:41)
[2023-12-10] MEDS: Sucralfate Oral Suspension 1 GM/10 ML ORAL.SUSP PO ×2 (15:54→20:41)
[2023-12-10] MEDS: Lactulose 20 GM/30 ML SOLUTION 40 GM PO ×3 (15:54→20:39)
[2023-12-10 15:56] LABS: Ammonia 38 umol/L (13-55)
[2023-12-10] MEDS: cloNIDine HCL 0.1 MG TABLET PO (16:09)
[2023-12-10] MEDS: PHENobarbitaL 15 MG TABLET 45 MG PO (20:40)
[2023-12-10] MEDS: Magnesium Oxide 400 MG TABLET PO (20:41)
[2023-12-10] MEDS: traZODone HCL 100 MG TABLET PO (21:29)
[2023-12-10] MEDS: ondansetron HCL 4 MG/2 ML VIAL IVPUSH (21:29)
[2023-12-11] VITALS (7 sets, daily range): BP systolic 147–188; BP diastolic 72–96; PULSE 55–73; RESP 16–20; TEMP 36–36.8; O2SAT 96–99
[2023-12-11] MEDS: 0.9 % Sodium Chloride Flush 3 ML SYRINGE IVFLUSH ×3 (02:03→16:53)
[2023-12-11] MEDS: cloNIDine HCL 0.1 MG TABLET PO ×3 (02:28→19:43)
[2023-12-11] MEDS: Omeprazole 20 MG CAPSULE.DR PO (04:49)
[2023-12-11] MEDS: hydrOXYzine HCL 25 MG TABLET PO ×3 (04:49→19:43)
[2023-12-11] MEDS: Dextrose 5 % 1,000 ML 100 ML IVCONT (07:27)
[2023-12-11] MEDS: Heparin Sodium,Porcine 5,000 UNIT/ML VIAL 5000 UNIT SUBCUT ×2 (08:20→20:35)
[2023-12-11] MEDS: Lactulose 20 GM/30 ML SOLUTION 40 GM PO ×3 (08:20→20:35)
[2023-12-11] MEDS: Dicyclomine HCl 10 MG CAPSULE 20 MG PO ×3 (08:21→20:35)
[2023-12-11] MEDS: Metoprolol Succinate ER 100 MG TAB.ER.24H PO (08:22)
[2023-12-11] MEDS: PHENobarbitaL 15 MG TABLET 45 MG PO ×2 (08:23→20:34)
[2023-12-11] MEDS: Magnesium Oxide 400 MG TABLET PO ×2 (08:24→20:35)
[2023-12-11] MEDS: Losartan Potassium 50 MG TABLET PO (08:24)
[2023-12-11] MEDS: Thiamine HCL 100 MG TABLET PO (08:24)
[2023-12-11] MEDS: Sucralfate Oral Suspension 1 GM/10 ML ORAL.SUSP PO ×4 (08:24→20:34)
[2023-12-11] MEDS: Cholecalciferol (Vitamin D3) 25 MCG TABLET 50 MCG PO (08:24)
[2023-12-11] MEDS: Multivitamin TABLET 1 TAB PO (08:24)
[2023-12-11] MEDS: Famotidine/PF 20 MG/2 ML VIAL IVPUSH ×2 (08:48→20:35)
[2023-12-11] MEDS: Thiamine HCL 100 MG in 0.9 % Sodium Chloride 100 ML 202 MG IV (08:48)
--- NOTE | 2023-12-11 11:25 | P.PNIM_ITS ---
Subjective Subjective Date of Service: 12/11/23 Interval History: Follow up encephalopathy, ETOH better and more awake today Review of Systems All other system reviewed and negative Physical Exam 2 Vital Signs: Vital Signs: Last Vital Signs Temp 98.2 F 12/11/23 07:32 Pulse 73 12/11/23 07:32 Resp 18 12/11/23 07:32 BP 159/77 H 12/11/23 07:32 Pulse Ox 97 12/11/23 07:32 O2 Del Method Room Air 12/11/23 07:32 BMI result Body Mass Index 21.4 Appearing in no acute distress lung sounds are clear to auscultation heart regular rate rhythm, clear S1, S2 positive bowel sounds, abdomen is soft, nontender neuro patient is alert x3, no focal deficits Objective Data Active Medications Clonidine HCl (Clonidine Hcl 0.1 Mg Tablet) 0.1 mg PO TID PRN; Protocol PRN Reason: Anxiety Last Admin: 12/11/23 02:28 Dose: 0.1 mg Documented By: KEIKO Dicyclomine HCl (Dicyclomine Hcl 10 Mg Capsule) 20 mg PO TID [facility] Last Admin: 12/11/23 08:21 Dose: 20 mg Documented By: JAROD Famotidine (Famotidine/Pf 20 Mg/2 Ml Vial) 20 mg IVPUSH BID [facility] Last Admin: 12/11/23 08:48 Dose: 20 mg Documented By: JAROD Folic Acid (Folic Acid 1 Mg Tablet) 1 mg PO DAILY [facility] Stop: 12/13/23 08:59 Last Admin: 12/11/23 08:21 Dose: Not Given Documented By: JAROD Non-Admin Reason: Physician Held Med Folic Acid (Folic Acid 1 Mg Tablet) 1 mg PO DAILY [facility] Heparin Sodium (Porcine) (Heparin Sodium,Porcine 5,000 Unit/Ml Vial) 5,000 unit SUBCUT Q12H [facility] Last Admin: 12/11/23 08:20 Dose: 5,000 unit Documented By: JAROD Hydroxyzine HCl (Hydroxyzine Hcl 25 Mg Tablet) 25 mg PO Q6H PRN PRN Reason: anxiety Last Admin: 12/11/23 04:49 Dose: 25 mg Documented By: KEIKO Thiamine HCl 100 mg/ Sodium (Chloride) 101 mls @ 202 mls/hr IV DAILY [facility] Last Infusion: 12/11/23 10:08 Dose: Infused Documented By: JAROD Lactulose (Lactulose 20 Gm/30 Ml Solution) 40 gm PO TID [facility] Last Admin: 12/11/23 08:20 Dose: 40 gm Documented By: JAROD Losartan Potassium (Losartan Potassium 50 Mg Tablet) 50 mg PO DAILY [facility]; Protocol Last Admin: 12/11/23 08:24 Dose: 50 mg Documented By: JAROD Magnesium Oxide (Magnesium Oxide 400 Mg Tablet) 400 mg PO BID [facility] Last Admin: 12/11/23 08:24 Dose: 400 mg Documented By: JAROD Metoprolol Succinate (Metoprolol Succinate Er 100 Mg Tab.Er.24h) 100 mg PO DAILY [facility]; Protocol Last Admin: 12/11/23 08:22 Dose: 100 mg Documented By: JAROD Multivitamins/Vitamin C (Multivitamin Tablet) 1 tab PO DAILY [facility] Stop: 12/13/23 08:59 Last Admin: 12/11/23 08:24 Dose: 1 tab Documented By: JAROD Non-Formulary Medication ([id number]-[id number]-Cyojkxr [Creon]) 1 cap PO TID [facility] Last Admin: 12/10/23 16:09 Dose: Not Given Documented By: MATT Non-Admin Reason: Med Not Available Omeprazole (Omeprazole 20 Mg Capsule.Dr) 20 mg PO DAILY@0630 [facility] Last Admin: 12/11/23 04:49 Dose: 20 mg Documented By: KEIKO Ondansetron HCl (Ondansetron Hcl 4 Mg/2 Ml Vial) 4 mg IVPUSH Q4H PRN PRN Reason: Nausea and Vomiting Last Admin: 12/10/23 21:29 Dose: 4 mg Documented By: KEIKO Pharmacy Consult (Consult Rx Etoh Phenob Im/Po) 1 each MISCELLANE ONCE PRN; Protocol PRN Reason: Consult order Phenobarbital (Phenobarbital 15 Mg Tablet) 45 mg PO BID [facility]; Protocol Stop: 12/12/23 09:01 Last Admin: 12/11/23 08:23 Dose: 45 mg Documented By: JAROD Phenobarbital (Phenobarbital 15 Mg Tablet) 15 mg PO BID [facility]; Protocol Stop: 12/14/23 09:01 Phenobarbital (Phenobarbital 15 Mg Tablet) 15 mg PO DAILY [facility]; Protocol Stop: 12/16/23 09:01 Sodium Chloride (0.9 % Sodium Chloride Flush 3 Ml Syringe) 3 ml IVFLUSH QSHIFT [facility] Last Admin: 12/11/23 08:26 Dose: 3 ml Documented By: JAROD Sucralfate (Sucralfate Oral Suspension 1 Gm/10 Ml Oral.Susp) 1 gm PO QID [facility] Last Admin: 12/11/23 08:24 Dose: 1 gm Documented By: JAROD Thiamine HCl (Thiamine Hcl 100 Mg Tablet) 100 mg PO DAILY [facility] Last Admin: 12/11/23 08:24 Dose: 100 mg Documented By: JAROD Trazodone HCl (Trazodone Hcl 100 Mg Tablet) 100 mg PO BEDTIME [facility] Last Admin: 12/10/23 21:29 Dose: 100 mg Documented By: KEIKO Vitamin D (Cholecalciferol (Vitamin D3) 25 Mcg Tablet) 50 mcg PO DAILY [facility] Last Admin: 12/11/23 08:24 Dose: 50 mcg Documented By: JAROD Labs 12/10/23 05:48 12/10/23 14:44 Labs: Laboratory Results - last 24 hr 12/10/23 12/10/23 13:52 14:44 Anion Gap 16 Estim Creat Clear Calc 76.3 Estimated GFR > 60 Random Glucose 92 Calcium 9.8 D Magnesium 1.6 Ammonia 38 Urine Opiates Screen Not Detected Urine Fentanyl Screen Not Detected Ur Barbiturates Screen POSITIVE H Ur Phencyclidine Scrn Not Detected Ur Amphetamines Screen Not Detected U Benzodiazepines Scrn Not Detected Urine Cocaine Screen Not Detected U Marijuana (THC) Screen POSITIVE H Assessment and Plan (1) Acute hepatic encephalopathy: Status: Acute Plan 48 years old woman admitted with acute alcoholic encephalopathy Acute hepatic encephalopathy secondary to alcohol use. Resolved Agitation, confusion, hallucinations, resolved Thiamine, folic acid and multivitamins phenobarbital protocol s/p IV fluids with D5W addiction team consultation Hyperammonemia. Likely due to alcohol use. hepatic encephalopathy but no stigmata of chronic liver disease noted. No asterixis. Lactulose enema given in the ED. ammonia down to 38 Hypernatremia . Resolved secondary to poor water intake. s/p D5W. Hypomagenesemia. Resolved secondary to alcohol abuse replete Transaminitis Chronic hepatitis-C infection and alcoholic-induced. Continue to monitor. GERD. Pepcid IV, changed to oral omeprazole Chronic hepatitis-C infection. Treated History of pancreatic insufficiency Taking Creon Essential hypertension. Continue losartan and metoprolol DVT prophylaxis: Heparin subcut Attending Dr. Randhawa Code status: Full Patient will need hospitalization for acute encephalopathy likely secondary to alcohol withdrawal symptoms. Patient will need close monitoring (CIWA), phenobarbital protocol, thiamine and IV fluids. Quality Stroke Does the patient have a stroke diagnosis?: No VTE Prior VTE?: No VTE Risk Level:: Medical - moderate - high VTE Device Contraindication: Treatment Not Indicated VTE Drug Contraindication: N/A - Med Ordered
--- NOTE | 2023-12-11 12:31 | MHC.CM.PN ---
EMR REVIEWED, PT ADMITTED W/HEPATIC ENCEPHALOPATHY, CM MET W/PT WHO REPORTS SHE LIVES W/HER ADULT SON, IS FULLY INDEP W/CARE, DENIES USE OF DME AND REPORTS SHE DID ATTEND HER INTAKE FOR MAT W/CCC ON 12/06, PT REPORTS SHE WOULD LIKE TO SPEAK W/[employer] HOWEVER IS AWARE THAT SHE IS NOT IN TODAY. PT VERIFIES HCP ON FILE IS CORRECT, PCP IS BRENNEN SOUZA NOT THE PCP ON FILE, TASK SENT TO CM OFFICE.
[2023-12-11] MEDS: LORazepam 0.5 MG TABLET PO (14:41)
[2023-12-11] MEDS: traZODone HCL 100 MG TABLET PO (21:16)
[2023-12-12 03:05] VITALS: BP 165/74; PULSE 63; RESP 18; TEMP 36.5; O2SAT 99
[2023-12-12] MEDS: Omeprazole 20 MG CAPSULE.DR PO (05:04)
[2023-12-12] MEDS: hydrOXYzine HCL 25 MG TABLET PO (05:10)
[2023-12-12] MEDS: cloNIDine HCL 0.1 MG TABLET PO (05:10)
[2023-12-12 07:43] VITALS: BP 163/76; PULSE 63; RESP 20; TEMP 36; O2SAT 98
[2023-12-12] MEDS: Cholecalciferol (Vitamin D3) 25 MCG TABLET 50 MCG PO (08:59)
[2023-12-12] MEDS: Magnesium Oxide 400 MG TABLET PO (08:59)
[2023-12-12] MEDS: Multivitamin TABLET 1 TAB PO (08:59)
[2023-12-12] MEDS: Metoprolol Succinate ER 100 MG TAB.ER.24H PO (08:59)
[2023-12-12] MEDS: Thiamine HCL 100 MG TABLET PO (08:59)
[2023-12-12] MEDS: PHENobarbitaL 15 MG TABLET 45 MG PO (08:59)
[2023-12-12] MEDS: Dicyclomine HCl 10 MG CAPSULE 20 MG PO (08:59)
[2023-12-12] MEDS: Sucralfate Oral Suspension 1 GM/10 ML ORAL.SUSP PO (09:00)
[2023-12-12] MEDS: Losartan Potassium 50 MG TABLET PO (09:00)
[2023-12-12] MEDS: Lactulose 20 GM/30 ML SOLUTION 40 GM PO (09:00)
[2023-12-12] MEDS: Heparin Sodium,Porcine 5,000 UNIT/ML VIAL 5000 UNIT SUBCUT (09:00)
[2023-12-12] MEDS: Folic Acid 1 MG TABLET PO (09:00)
[2023-12-12] MEDS: 0.9 % Sodium Chloride Flush 3 ML SYRINGE IVFLUSH (09:01)
[2023-12-12] MEDS: Famotidine/PF 20 MG/2 ML VIAL IVPUSH (09:01)
--- NOTE | 2023-12-12 09:59 | PM.DS ---
DS: Providers Provider Date of Service: 12/12/23 Date of admission: 12/10/23 02:42 Primary care physician: Ayala Patton MD Consults: 12/11/23 11:29 Addiction Medicine Routine Consulting Provider: Addiction Covering Reason for consultation: alcohol abuse DS: Diagnosis Discharge Diagnosis (1) Acute hepatic encephalopathy: Status: Acute DS: Summary Hospital Course Hospital Course: History and physical as per admitting provider. Jackelyn Bledsoe is a 48 years old woman with past medical history significant for alcohol abuse, chronic hepatitis-C infection, GERD and pancreatic insufficiency was brought to the hospital by her son due to severe agitation. HPI was provided by ED provider, ED staff and ED triage note as the patient was sedated and unable to provide her HPI at the time evaluation. It seems like the patient left [facility] against medical advice because she felt they were not helping her. She was therefore alcohol detox. It seems like the patient went home, and not over space heater and began to have visual hallucination. She started to drink again -six nips tonight. The patient needed physical and chemical restraints in order to control her agitation. In the ED, her vital signs were found to be stable. Blood workup is remarkable for elevated AST and ALT. Bilirubin and alk phos are normal. INR is normal. Ammonia is 369. Sodium level is 147. Ethanol level 152. Renal function is normal. ED tx: Haldol 5 mg IM, Benadryl 50 mg IM, Ativan 2 mg IM NS 1 L bolus. Lactulose 200 mg VA (retention enema)/ 48-year-old woman admitted for acute hepatic encephalopathy secondary to alcohol abuse. Treated with phenobarbital protocol, IV fluids, thiamine, folic acid and multivitamin. Initial ammonia was over 300, received lactulose and ammonia down to 38. Symptoms related to alcohol abuse. She also had hypernatremia likely from hypovolemia from poor oral intake. Received IV fluids and resolved. Hypomagnesemia was also repleted secondary to alcohol abuse. Transaminitis was also noted due to alcohol use. At this time patient is alert and oriented, good appetite. Seen evaluated by addiction team and plans for follow-up outpatient. She will be discharged home. GERD. Continue PPI Chronic hepatitis-C infection. Treated History of pancreatic insufficiency. Continue Creon Hypertension. Continue losartan and metoprolol Time Attestation Discharge coordination time: Greater than 30 minutes Quality: Safe Use of Opioids Does Pt have an Active Cancer Diagnosis on the Problem List?: No Quality: Stroke Does the patient have a stroke diagnosis?: No Physical Exam Vital Signs: Vital Signs: Last Vital Signs Temp 96.8 F 12/12/23 07:43 Pulse 63 12/12/23 07:43 Resp 20 12/12/23 07:43 BP 163/76 H 12/12/23 07:43 Pulse Ox 98 12/12/23 07:43 O2 Del Method Room Air 12/12/23 07:43 BMI result Body Mass Index 21.4 Appearing in no acute distress head is normocephalic atraumatic eyes pupils are PERRLA sclera is anicteric mouth throat mucous membranes are intact and moist neck is supple no lymphadenopathy, no JVD noted lung sounds are clear to auscultation heart regular rate rhythm, clear S1, S2 positive bowel sounds, abdomen is soft, nontender neuro patient is alert x3, no focal deficits DS: Data Data Completed and Pending Completed studies during hospitalization [Text1]: Procedures Detoxification Services for Substance Abuse Treatment (12/01/23) Discharge Plan Discharge Anticipated Discharge Date/Time: 12/12/23 09:57 Patient Disposition: Home, Self-Care Discharge Diagnosis: Acute hepatic encephalopathy secondary to alcohol use Hyperammonemia Hypernatremia Hypomagnesemia Transaminitis Referrals: Ayala Patton MD [Primary Care Provider] - 1 Week Discharge Medications: Continued losartan 50 mg tablet 50 mg PO DAILY thiamine HCl (vitamin B1) 100 mg tablet 100 mg PO DAILY magnesium oxide 400 mg (241.3 mg magnesium) tablet 400 mg PO BID trazodone 100 mg tablet 100 mg PO BEDTIME pantoprazole 40 mg tablet,delayed release (DR/EC) 40 mg PO DAILY folic acid 1 mg tablet 1 mg PO DAILY hydroxyzine HCl 25 mg tablet 25 mg PO Q6H PRN (Reason: anxiety) acamprosate 333 mg tablet,delayed release (DR/EC) 666 mg PO TID cholecalciferol (vitamin D3) 50 mcg (2,000 unit) tablet 50 mcg PO DAILY metoprolol succinate 25 mg tablet extended release 24 hr 100 mg PO DAILY Creon 6,000-19,000 -30,000 unit capsule,delayed release(DR/EC) 1 cap PO TID clonidine HCl 0.1 mg tablet 0.1 mg PO TID PRN (Reason: Anxiety) dicyclomine 20 mg tablet 20 mg PO TID Qty: 90 0RF sucralfate 100 mg/mL suspension 10 ml PO QID Qty: 1000 0RF Rx Instructions: swish in mouth and swallow; use after food/drink ondansetron 4 mg tablet,disintegrating 4 mg PO Q8H PRN (Reason: nausea and vomiting) Qty: 30 0RF Discharge Orders: Discharge Order (Routine); Ordered 12/12/23 Ordered By: Ellen Neumann Diet: Advance to usual diet Activity on Discharge: As tolerated Stand Alone Forms: Patient Portal Discharge page Care Plan Goals: Stop drinking alcohol Health Concerns: Acute hepatic encephalopathy secondary to alcohol use Hyperammonemia Hypernatremia Hypomagnesemia Transaminitis Plan of Treatment: Follow-up with primary care provider as needed Take all medications as prescribed Follow-up with addiction team for help with alcohol cessation Assessment: See discharge summary
--- NOTE | 2023-12-12 10:34 | MHC.CM.PN ---
Pt medically cleared for D/C home self-care, pt has arranged for her own transportation home.
--- NOTE | 2023-12-12 10:46 | MHC.RECOVRN ---
Met with pt in 483 prior to discharge after consult placed to Addiction Medicine for alcohol use. Pt had presented to the ED reporting alcohol use and visual hallucinations. Upon evaluation, pt admitted for acute encephalopathy and hyperammonemia. Pt sitting in bed, awake, alert, easily engages in conversation, preparing for discharge. Pt unsure how she wants to proceed with recovery now that acute detox is complete. Discussed inpatient and outpatient level of care. Pt interested in PHP. Pt did have intake appt at the [facility] on 10/05 and has a follow up today after discharge. Plan for pt to dc and present to [facility] to further discuss WEI/recovery plan. Pt denies questions or concerns at this time.
== END 2023-12-12 10:26 | disposition home or self-care (01) ==
LOC: HO.ED 12-10 02:43 → HO.EDOVER 12-10 02:49 → HO.IMC 12-10 17:44
PROVIDERS: Admitting Provider Internal Medicine; Emergency Provider Internal Medicine; PCP Internal Medicine; Visit Provider Nurse Practitioner Acute Care
DX: K76.82 Hepatic encephalopathy (principal); E72.20 Disorder of urea cycle metabolism, unspecified; K86.89 Other specified diseases of pancreas; Y90.6 Blood alcohol level of 120-199 mg/100 ml; F10.129 Alcohol abuse with intoxication, unspecified; F10.139 Alcohol abuse with withdrawal, unspecified; E86.1 Hypovolemia; B18.2 Chronic viral hepatitis C; I10 Essential (primary) hypertension; K21.9 Gastro-esophageal reflux disease without esophagitis; E83.42 Hypomagnesemia; F17.210 Nicotine dependence, cigarettes, uncomplicated; Z71.6 Tobacco abuse counseling; Z79.899 Other long term (current) drug therapy
CPT/HCPCS: 36415; 70450; 80048; 80053; 80307; 82140; 83690; 83735; 85025; 85610; 93005; 99285; 99499; J1200; J1630; J1644; J2060; J2405; J2560; J3411; J3475

== ENCOUNTER 2023-12-10 02:42 | Outpatient (BNV) | payer OTHER, SELFPAY | END 2023-12-10 03:14 | PROVIDERS: Admitting Provider Internal Medicine; Emergency Provider Internal Medicine; PCP Nurse Practitioner Pediatrics; Visit Provider Internal Medicine Cardiovascular Disease | DX: R41.82 Altered mental status, unspecified (principal) | CPT/HCPCS: 93010 ==

== ENCOUNTER → 2023-12-10 02:42 | Outpatient (BNV) | payer OTHER, SELFPAY | PROVIDERS: Admitting Provider Internal Medicine; Emergency Provider Internal Medicine; PCP Nurse Practitioner Pediatrics; Visit Provider Internal Medicine | DX: F10.239 Alcohol dependence with withdrawal, unspecified (principal); G31.2 Degeneration of nervous system due to alcohol; E87.0 Hyperosmolality and hypernatremia; I10 Essential (primary) hypertension; K86.89 Other specified diseases of pancreas; E72.20 Disorder of urea cycle metabolism, unspecified; B18.2 Chronic viral hepatitis C | CPT/HCPCS: 99223; 99232; 99239 ==

== ENCOUNTER 2023-12-12 10:36 | Outpatient (AMB) | payer OTHER, SELFPAY ==
--- NOTE | 2023-12-12 10:37 | MHC.AM.SUB ---
Intake Vital Signs 12/12/23 10:52 BP 130/84 Blood Pressure Location Lt radial Position Sitting Pulse 74 Pulse Source Pulse Oximeter Pulse Oximetry (%) 99 Oxygen Delivery Method Room Air 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: mat visit Intake Note: The patient is here for a mat visit Client Success Manager Required: No Allergies No Known Allergies Allergy (Verified 12/12/23 10:54) Do you need a note to return to daycare/school/sports/work: No HPI mat visit HPI Details Patient presents for follow up - AUD She was just d/c from [facility] [place] today, was hospitalized for elevated ammonia levels/hepatic encephalopathy She is currently interested PHP referral She is planning on going home and having a shot She appears less depressed today, pale, but more engaged in conversation than prior visit [facility] Medical History (Updated 12/12/23 @ 14:45 by Mikayla Smith NP) Alcohol use disorder Pancreatic insufficiency Gastroesophageal reflux disease Essential hypertension Mood disorder Cannabis use disorder Hepatitis C Tobacco use disorder Social History Household Members: Family and None Housing: House Alcohol intake: current Alcohol intake frequency: 0-2 drinks per day Alcohol type: hard liquor Patient Tobacco Use Status: Current everyday Tobacco user Tobacco use type: Cigarette Cigarettes Per Day: 11 e-Cigarette/Vaping Use: Currently Using Second Hand Smoke Exposure: No Substance Use Type: Marijuana Advance Directives Date on File: 12/10/23 service: No Review of Systems Const Reports as per HPI Physical Exam Vital Signs: Last Vital Signs Pulse 74 12/12/23 10:52 BP 130/84 12/12/23 10:52 Pulse Ox 99 12/12/23 10:52 Oxygen Delivery Method Room Air 12/12/23 10:52 Const General: no acute distress Nutritional Appearance: average body habitus Resp Effort & Inspection: normal respiratory effort Psych Appearance: grossly normal Mental Status: mental status grossly normal Speech and movement: Normal speech and movement present Affect: normal affect Attitude: cooperative Assessment & Plan Assessment & Plan (1) Alcohol use disorder, severe, dependence: Code(s): F10.20 - Alcohol dependence, uncomplicated Plan: -Provided patient with education regarding PHP program and instructed her to call for intake -Harm reduction discussed, discussed with her limiting her alcohol intake to 1 shot only if she absolutely is going to drink alcohol -Reviewed risks to restarting alcohol -Relapse prevention discussed -Follow up 1 week Coding Level of Care Code Est Pt Level 3 (88849) Diagnoses Alcohol use disorder, severe, dependence F10.20
[2023-12-12 10:52] VITALS: BP 130/84; PULSE 74; O2SAT 99
== END 2023-12-12 11:12 | disposition home or self-care (01) ==
PROVIDERS: PCP Internal Medicine; Visit Provider Nurse Practitioner Family
DX: F10.20 Alcohol dependence, uncomplicated (principal)
CPT/HCPCS: 99213

== ENCOUNTER → 2023-12-12 10:36 | Outpatient (BNVA) | payer OTHER, SELFPAY | PROVIDERS: PCP Internal Medicine; Visit Provider Nurse Practitioner Family | DX: F10.20 Alcohol dependence, uncomplicated (principal) | CPT/HCPCS: 99212 ==

== ENCOUNTER 2023-12-21 11:21 | Emergency (ER) | payer OTHER, SELFPAY ==
--- NOTE | 2023-12-21 11:30 | ED.GENADULT ---
HPI - General Adult General Chief complaint: General Medical Stated complaint: difficulty walking Related Data Home Medications Medication Instructions Recorded Confirmed acamprosate 333 mg tablet,delayed 666 mg PO TID 11/01/23 12/10/23 release cholecalciferol (vitamin D3) 50 50 mcg PO DAILY 11/01/23 12/10/23 mcg (2,000 unit) tablet folic acid 1 mg tablet 1 mg PO DAILY 11/01/23 12/10/23 hydroxyzine HCl 25 mg tablet 25 mg PO Q6H PRN anxiety 11/01/23 12/10/23 losartan 50 mg tablet 50 mg PO DAILY 11/01/23 12/10/23 magnesium oxide 400 mg (241.3 mg 400 mg PO BID 11/01/23 12/10/23 magnesium) tablet pantoprazole 40 mg tablet,delayed 40 mg PO DAILY 11/01/23 12/10/23 release thiamine HCl (vitamin B1) 100 mg 100 mg PO DAILY 11/01/23 12/10/23 tablet trazodone 100 mg tablet 100 mg PO BEDTIME 11/01/23 12/10/23 clonidine HCl 0.1 mg tablet 0.1 mg PO TID PRN Anxiety 12/10/23 12/10/23 [id number] 1 cap PO TID 12/10/23 12/10/23 6,000-19,000-30,000 unit capsule,delayed rel (Creon) metoprolol succinate 25 mg 100 mg PO DAILY 12/10/23 12/10/23 tablet,extended release 24 hr Previous Rx's Medication Instructions Recorded dicyclomine 20 mg tablet 20 mg PO TID #90 tabs 12/06/23 ondansetron 4 mg disintegrating 4 mg PO Q8H PRN nausea and 12/06/23 tablet vomiting #30 tabs sucralfate 100 mg/mL oral 10 ml PO QID #1,000 mL 12/06/23 suspension Allergies Allergy/AdvReac Type Severity Reaction Status Date / Time No Known Allergies Allergy Verified 12/21/23 11:32 [facility] [place] Past Medical History Medical History (Updated 12/21/23 @ 12:21 by VICTORIANO Sherman) Alcohol use disorder Pancreatic insufficiency Gastroesophageal reflux disease Essential hypertension Mood disorder Cannabis use disorder Hepatitis C Tobacco use disorder Social History Social History Household Members: Family and None Housing: House Alcohol intake: current Alcohol intake frequency: 0-2 drinks per day Alcohol type: hard liquor Patient Tobacco Use Status: Current everyday Tobacco user Tobacco use type: Cigarette Cigarettes Per Day: 11 e-Cigarette/Vaping Use: Currently Using Second Hand Smoke Exposure: No Substance Use Type: Marijuana Advance Directives: Yes Advance Directives on File: Yes Advance Directives Date on File: 12/10/23 service: No Physical Exam ED Vital Signs: Vital Signs - 24 hr 12/21/23 11:32 Temperature 98 F Pulse Rate 83 Respiratory Rate 16 Blood Pressure 99/57 L Pulse Oximetry 96 Oxygen Delivery Method Room Air BMI result Body Mass Index 23.1 Course Course Course Narrative: RME:?48 yo female hx of transaminitis, etoh use disorder, mood disorder, HTN, here for eval of LE weakness and pain x2 days. able to walk but has difficulty climbing up her basement stairs. admits to drinking 4 nips of vodka today. did not take any of her home meds today. admitted here from 12/09-12/12 for acute hepatic encephalopathy. discharged home. exam: appears intoxicated. ambulated into ED, now in wheel chair. /5 LE strength. 4/5 UE strength. labs, ekg ordered Full HPI, ROS and PE to be performed by the primary ED provider. Reevaluation(s) Reevaluation #1: Patient left the ED without completing treatment. Discharge Plan Discharge Clinical Impression: Generalized weakness Patient Disposition: Left W/O Completing Treatment Prescriptions: No Action losartan 50 mg tablet 50 mg PO DAILY thiamine HCl (vitamin B1) 100 mg tablet 100 mg PO DAILY magnesium oxide 400 mg (241.3 mg magnesium) tablet 400 mg PO BID trazodone 100 mg tablet 100 mg PO BEDTIME pantoprazole 40 mg tablet,delayed release (DR/EC) 40 mg PO DAILY folic acid 1 mg tablet 1 mg PO DAILY hydroxyzine HCl 25 mg tablet 25 mg PO Q6H PRN (Reason: anxiety) acamprosate 333 mg tablet,delayed release (DR/EC) 666 mg PO TID cholecalciferol (vitamin D3) 50 mcg (2,000 unit) tablet 50 mcg PO DAILY metoprolol succinate 25 mg tablet extended release 24 hr 100 mg PO DAILY Creon 6,000-19,000 -30,000 unit capsule,delayed release(DR/EC) 1 cap PO TID clonidine HCl 0.1 mg tablet 0.1 mg PO TID PRN (Reason: Anxiety) dicyclomine 20 mg tablet 20 mg PO TID Qty: 90 0RF sucralfate 100 mg/mL suspension 10 ml PO QID Qty: 1000 0RF Rx Instructions: swish in mouth and swallow; use after food/drink ondansetron 4 mg tablet,disintegrating 4 mg PO Q8H PRN (Reason: nausea and vomiting) Qty: 30 0RF
[2023-12-21 11:32] VITALS: BP 99/57; PULSE 83; RESP 16; TEMP 36.6; O2SAT 96; BMI 23.1
--- NOTE | 2023-12-21 11:43 | MHC.EDTECH ---
This pct attempted to draw labs and attempted to perform and EKG but she refused me stating she didnt want me taking care of her. RN Aware
--- NOTE | 2023-12-21 11:51 | MHC.EDTECH ---
Patient left without being seen. RN Aware
== END 2023-12-21 12:38 | disposition left against medical advice (07) ==
PROVIDERS: Emergency Provider Emergency Medicine; PCP Internal Medicine
DX: R53.1 Weakness (principal); I10 Essential (primary) hypertension; F39 Unspecified mood [affective] disorder; K76.82 Hepatic encephalopathy
CPT/HCPCS: 99281

== ENCOUNTER 2024-01-09 00:04 | Emergency (ER) | payer OTHER, SELFPAY ==
--- NOTE | ~2024-01-09 | CT_ITS ---
EXAMINATION: CT HEAD WITHOUT CONTRAST CLINICAL INFORMATION: Fall. Hallucinations. COMPARISON: 12/10/2023 TECHNIQUE: Contiguous axial imaging was performed from the skull base to vertex without intravenous administration of contrast. This CT examination was performed using dose optimization techniques as appropriate, variously including the following: *Automated exposure control *Adjustment of mA and/or kV according to patient size (this includes techniques or standardized protocols for targeted exams where dose is matched to indication/reason for exam; i.e. extremities or head) *Use of iterative reconstruction technique DLP: 554 mGy-cm FINDINGS: The lateral, third and fourth ventricles are normally outlined. The cortical sulci and basal cisterns are normally outlined as well. There is no acute territorial defect, hemorrhage or midline shift. The extra-axial spaces are unremarkable. Calvarium: Intact. Maxillofacial sinuses and mastoids: Clear as visualized. CT/CT head/brain wo IV con IMPRESSION: No acute intracranial pathology.
--- NOTE | ~2024-01-09 | XR_ITS ---
EXAMINATION: XR CHEST CLINICAL INFORMATION: Cough. COMPARISON: None available. TECHNIQUE: Frontal view of the chest was obtained. FINDINGS: No significant abnormality is noted involving the heart, lungs, mediastinum, bony thorax or soft tissues. XR/XR chest 1V IMPRESSION: Unremarkable examination.
[2024-01-09 00:23] VITALS: BP 152/71; PULSE 66; RESP 18; TEMP 36.7; O2SAT 90; BMI 22.5
[2024-01-09 01:18] LABS: COVID-19 Test Negative (Negative); IDNOW Serial# 6674DD1D
[2024-01-09 01:41] LABS: Basophils Percent Auto 0.6 % (0-2); Eosinophils Percent Auto 0.6 % (0-4); Hematocrit 33.7 % (37.0-47.0); Imm Gran Abs Auto 0.01 X10*3/uL (0.00-0.03); Imm Gran Pct Auto 0.2 % (0.0-0.4); Lymphocytes Absolute Auto 3.3 X10*3/uL (1.2-4.9); Lymphocytes Percent Auto 51.3 % (20-40); MANUAL DIFF FLAG SCAN; Mean Corpuscular Volume 97.1 fL (80.0-98.0); Mean Platelet Volume 11.5 fL (9.4-12.3); Monocytes Absolute Auto 0.2 X10*3/uL (0.1-1.2); Monocytes Percent Auto 3.3 % (2-11); Neutrophils Absolute Auto 2.8 x10*3/uL (2.0-8.3); Platelet Count 118 X10*3/uL (160-400); Red Blood Count 3.47 X10*6/uL (4.20-5.50); SCAN SMEAR FLAG 1; White Blood Count 6.4 X10*3/uL (4.8-10.8)
[2024-01-09 01:46] LABS: Hemoglobin 11.3 g/dl (12.0-16.0); Mean Corpuscular HGB Conc 33.6 g/dl (31.0-35.0); Mean Corpuscular Hemoglobin 32.6 pg (27.0-33.0)
[2024-01-09 01:55] LABS: SLIDE REVIEW VERIFIED
[2024-01-09 02:33] LABS: Alanine Aminotransferase 144 U/L (0-31); Albumin Level 3.3 g/dL (3.5-5.0); Alkaline Phosphatase 351 U/L (39-117); Anion Gap 17 (12-20); Aspartate Amino Transferase 160 U/L (5-31); Bilirubin Total 0.8 mg/dL (0.0-1.0); Blood Urea Nitrogen 7 mg/dL (9-16); Carbon Dioxide 24 mmol/L (22-29); Chloride 104 mmol/L (96-108); Creatinine Clr Calc Pharmacy 79.4; Estimated Glomerular Filt Rate > 60; Ethanol 292 mg/dL; Glucose Random 96 mg/dL (60-115); Magnesium 1.5 mg/dL (1.6-2.6); Potassium 3.8 mmol/L (3.3-5.1); Sodium 141 mmol/L (135-145); Total Protein 7.1 g/dL (6.5-8.0)
--- NOTE | 2024-01-09 02:44 | ED.ALCOHOL ---
HPI - Alcohol General Chief Complaint: ETOH/Substance Use Stated Complaint: hallucinating, cant walk, vomiting Time Seen by Provider: 01/09/24 02:39 Source: patient and old records reviewed Mode of arrival: ambulatory Limitations: other (intoxication) History of Present Illness HPI narrative: 48 yo female with PMH Of mood disorder, ETOH dependence 1 prior withdrawal seizure, here with c/o talking to a little girl today who wasn't there. She fell last week and hit her head but nothing today. She notes she normally drinks 4 nips a day and today hit is hard and drank 10 nips. She does not want detox and has no SI MD complaint: alcohol intoxication Last drink: Just prior to admission Chronic alcohol use: Yes Previous visits for alcohol intoxication: Yes Recent trauma: Yes Associated symptoms: denies other symptoms Treatments prior to arrival: none Related Data Home Medications Medication Instructions Recorded Confirmed acamprosate 333 mg tablet,delayed 666 mg PO TID 11/01/23 12/10/23 release cholecalciferol (vitamin D3) 50 50 mcg PO DAILY 11/01/23 12/10/23 mcg (2,000 unit) tablet folic acid 1 mg tablet 1 mg PO DAILY 11/01/23 12/10/23 hydroxyzine HCl 25 mg tablet 25 mg PO Q6H PRN anxiety 11/01/23 12/10/23 losartan 50 mg tablet 50 mg PO DAILY 11/01/23 12/10/23 magnesium oxide 400 mg (241.3 mg 400 mg PO BID 11/01/23 12/10/23 magnesium) tablet pantoprazole 40 mg tablet,delayed 40 mg PO DAILY 11/01/23 12/10/23 release thiamine HCl (vitamin B1) 100 mg 100 mg PO DAILY 11/01/23 12/10/23 tablet trazodone 100 mg tablet 100 mg PO BEDTIME 11/01/23 12/10/23 clonidine HCl 0.1 mg tablet 0.1 mg PO TID PRN Anxiety 12/10/23 12/10/23 [id number] 1 cap PO TID 12/10/23 12/10/23 6,000-19,000-30,000 unit capsule,delayed rel (Creon) metoprolol succinate 25 mg 100 mg PO DAILY 12/10/23 12/10/23 tablet,extended release 24 hr Previous Rx's Medication Instructions Recorded dicyclomine 20 mg tablet 20 mg PO TID #90 tabs 12/06/23 ondansetron 4 mg disintegrating 4 mg PO Q8H PRN nausea and 12/06/23 tablet vomiting #30 tabs sucralfate 100 mg/mL oral 10 ml PO QID #1,000 mL 12/06/23 suspension Allergies Allergy/AdvReac Type Severity Reaction Status Date / Time No Known Allergies Allergy Verified 01/09/24 00:27 Review of Systems Review of Systems: ROS unable to be obtained due to intoxication COUNTS INCLUDE 234 BEDS AT THE [facility] Past Medical History Attestation statement: The following information was validated with the patient. Source: old records reviewed Medical History Alcohol use disorder Pancreatic insufficiency Gastroesophageal reflux disease Essential hypertension Mood disorder Cannabis use disorder Hepatitis C Tobacco use disorder Social History Social History Household Members: Family and None Housing: House Alcohol intake: current Alcohol intake frequency: 0-2 drinks per day Alcohol type: hard liquor Patient Tobacco Use Status: Current everyday Tobacco user Tobacco use type: Cigarette Cigarettes Per Day: 11 Smoked in Last 30 Days: Yes e-Cigarette/Vaping Use: Currently Using Second Hand Smoke Exposure: No Use of substances other than those prescribed or required for medical reasons: No Substance Use Type: Marijuana Advance Directives: Yes Advance Directives on File: Yes Advance Directives Date on File: 12/10/23 Patient : No service: No Physical Exam ED Vital Signs: Vital Signs - 24 hr 01/09/24 00:23 01/09/24 03:47 Temperature 98.1 F Pulse Rate 66 68 Respiratory Rate 18 14 Blood Pressure 152/71 H 114/68 Pulse Oximetry 90 L 98 Oxygen Delivery Method Room Air Nasal Cannula Oxygen Flow Rate 2 BMI result Body Mass Index 22.5 Appearance: somnolent appears intoxicated Oriented X3. No acute distress. ETOH odor, slurred speech Eyes: Pupils equal, round and reactive to light. ENT: Pharynx normal. atraumatic Neck: Normal inspection. Neck supple. CVS: Normal heart rate and rhythm. Pulses normal. Respiratory: No respiratory distress. Breath sounds normal. Abdomen: Soft and nontender. Skin: Skin warm and dry. Normal skin color. Normal skin turgor. Extremities: No lower extremity edema. No calf ttp Neuro: Oriented X 3. No motor deficit. No sensory deficit. no tremors no tongue fasciculations Course Course Course Narrative: will place in physician observation 441am until more sober and can be reassessed Reevaluation(s) Reevaluation #1: obinna has been very sleepy since arrival no signs of withdrawal Medical Decision Making Medical Decision Making [facility] Narrative: 48 yo female with PMH of mood disorder, ETOH abuse who normally drinks 4 nips today and then drank 10 nips today. She reports a head trauma last week. States she was hallucinating and thought she was in withdrawal but in fact she appears very intoxicated. At this time labs, IVF, thiamine, magnesium, CXR for aspiration though I suspect her low O2 is due to intoxication, CT head given trauma last week to rule out ICH as cause of hallucinations. Will monitor. Her ETOH level today is the highest it has ever been Differential Diagnosis Differential Diagnoses: The differential diagnosis associated with the presentation includes intoxication, alcohol use disorder, lyte abnormality Admission/Observation Consideration of admission/observation: Escalation of care including admission/observation considered observe until more sober she refuses care team or addiction medicine input Lab Data [facility] Lab Attestation statement: I reviewed the patient's lab results. 01/09/24 01:00 01/09/24 01:00 Labs: Lab Results 01/09/24 Range/Units 01:00 WBC 6.4 (4.8-10.8) X10*3/uL RBC 3.47 L (4.20-5.50) X10*6/uL Hgb 11.3 L (12.0-16.0) g/dl Hct 33.7 L (37.0-47.0) % MCV 97.1 (80.0-98.0) fL MCH 32.6 (27.0-33.0) pg MCHC 33.6 (31.0-35.0) g/dl RDW 15.0 (11.0-16.0) % Plt Count 118 L D (160-400) X10*3/uL MPV 11.5 (9.4-12.3) fL Immature Gran % (Auto) 0.2 (0.0-0.4) % Neut % (Auto) 44.0 L (45-73) % Lymph % (Auto) 51.3 H (20-40) % Ferry % (Auto) 3.3 (2-11) % Eos % (Auto) 0.6 (0-4) % Baso % (Auto) 0.6 (0-2) % Lymph # (Auto) 3.3 (1.2-4.9) X10*3/uL Ferry # (Auto) 0.2 (0.1-1.2) X10*3/uL Eos # (Auto) 0.0 (0.0-0.4) X10*3/uL Baso # (Auto) 0.0 (0.0-0.2) X10*3/uL Abs Immat Gran (auto) 0.01 (0.00-0.03) X10*3/uL Absolute Neuts (auto) 2.8 (2.0-8.3) x10*3/uL Absolute Nucleated RBC 0.000 (0.0-0.012) X10*3/uL Nucleated RBC % (auto) 0.0 (0.0-0.2) /100WBC Smear Tech's Comments VERIFIED Sodium 141 (135-145) mmol/L Potassium 3.8 (3.3-5.1) mmol/L Chloride 104 (96-108) mmol/L Carbon Dioxide 24 (22-29) mmol/L Anion Gap 17 (12-20) BUN 7 L (9-16) mg/dL Creatinine 0.74 (0.5-1.4) mg/dL Estim Creat Clear Calc 79.4 Estimated GFR > 60 Random Glucose 96 (60-115) mg/dL Calcium 9.0 D (8.4-10.2) mg/dL Magnesium 1.5 L (1.6-2.6) mg/dL Total Bilirubin 0.8 (0.0-1.0) mg/dL AST 160 H (5-31) U/L ALT 144 H (0-31) U/L Alkaline Phosphatase 351 H (39-117) U/L Total Protein 7.1 (6.5-8.0) g/dL Albumin 3.3 L (3.5-5.0) g/dL Ethyl Alcohol 292 mg/dL COVID-19 (JIN) Negative (Negative) COVID-19 Clin Com See Note Independent Interpretation I performed an independent interpretation of an: Plain X-Ray (no pneumonia) and CT Scan Radiology Impression Discussion of test interpretation with radiology: I have reviewed the radiologist's reading. External Record Review External record reviewed: Inpatient record Medications Administered Discontinued Medications Generic Name Dose Route Start Last Admin Trade Name Freq PRN Reason Stop Dose Admin Sodium Chloride 1,000 mls @ 999 mls/hr 01/09/24 03:00 01/09/24 03:41 Ns IV 01/09/24 04:00 999 mls/hr .Q1H1M SAMANTHA Administration Thiamine HCl 200 mg/ Sodium 102 mls @ 204 mls/hr 01/09/24 02:54 01/09/24 04:11 Chloride IV 01/09/24 03:23 Infused ONCE ONE Infusion Magnesium Sulfate 2 gm in 50 mls @ 25 mls/hr 01/09/24 02:54 01/09/24 04:20 Magnesium Sulfate/H2o IV 01/09/24 04:53 25 mls/hr ONCE ONE Administration Discharge Plan Discharge Clinical Impression: Alcohol use disorder, severe, dependence, Hypomagnesemia Alcoholic intoxication Qualifiers: Complication of substance-induced condition: uncomplicated Qualified Code(s): F10.920 - Alcohol use, unspecified with intoxication, uncomplicated Patient Disposition: Still a Patient Instructions: Abuse of Alcohol (ED), Hypomagnesemia (ED), Alcohol Dependence (ED) Prescriptions: No Action losartan 50 mg tablet 50 mg PO DAILY thiamine HCl (vitamin B1) 100 mg tablet 100 mg PO DAILY magnesium oxide 400 mg (241.3 mg magnesium) tablet 400 mg PO BID trazodone 100 mg tablet 100 mg PO BEDTIME pantoprazole 40 mg tablet,delayed release (DR/EC) 40 mg PO DAILY folic acid 1 mg tablet 1 mg PO DAILY hydroxyzine HCl 25 mg tablet 25 mg PO Q6H PRN (Reason: anxiety) acamprosate 333 mg tablet,delayed release (DR/EC) 666 mg PO TID cholecalciferol (vitamin D3) 50 mcg (2,000 unit) tablet 50 mcg PO DAILY metoprolol succinate 25 mg tablet extended release 24 hr 100 mg PO DAILY Creon 6,000-19,000 -30,000 unit capsule,delayed release(DR/EC) 1 cap PO TID clonidine HCl 0.1 mg tablet 0.1 mg PO TID PRN (Reason: Anxiety) dicyclomine 20 mg tablet 20 mg PO TID Qty: 90 0RF sucralfate 100 mg/mL suspension 10 ml PO QID Qty: 1000 0RF Rx Instructions: swish in mouth and swallow; use after food/drink ondansetron 4 mg tablet,disintegrating 4 mg PO Q8H PRN (Reason: nausea and vomiting) Qty: 30 0RF
[2024-01-09] MEDS: Thiamine HCL 200 MG in 0.9 % Sodium Chloride 100 ML 204 MG IV (03:41)
[2024-01-09] MEDS: 0.9 % Sodium Chloride 1,000 ML 999 ML IV (03:41)
[2024-01-09 03:47] VITALS: BP 114/68; PULSE 68; RESP 14; O2SAT 98
[2024-01-09] MEDS: Magnesium Sulfate/H2O 2 GM/50 ML PIGGYBACK IV (04:20)
[2024-01-09 06:22] VITALS: BP 131/71; PULSE 64; RESP 14; O2SAT 98
[2024-01-09 08:04] VITALS: BP 151/86; PULSE 68; RESP 16; O2SAT 95
--- NOTE | 2024-01-09 08:27 | PC.NURSE ---
this RN resumed care of pt at this time. vss and up to date at this time. pt resting comfortably w/ eyes closed in no apparent distress. no sob/wob noted. respirations even and unlabored. plan of care ongoing. call yarbrough placed within reach.
[2024-01-09 11:07] VITALS: BP 149/98; PULSE 68; RESP 16; TEMP 36.9; O2SAT 98
== END 2024-01-09 11:24 | disposition home or self-care (01) ==
PROVIDERS: Emergency Medicine; Emergency Provider Emergency Medicine Emergency Medical Services
DX: F10.229 Alcohol dependence with intoxication, unspecified (principal); R51.9 Headache, unspecified; R11.2 Nausea with vomiting, unspecified; R05.9 Cough, unspecified; E83.42 Hypomagnesemia; R44.3 Hallucinations, unspecified; Y90.8 Blood alcohol level of 240 mg/100 ml or more; Z11.52 Encounter for screening for COVID-19; Z79.899 Other long term (current) drug therapy
CPT/HCPCS: 70450; 71045; 80053; 80307; 83735; 85025; 87635; 96361; 96365; 96375; 99284; 99285; J3411; J3475

== ENCOUNTER 2024-02-08 16:57 | Emergency (ER) | payer OTHER, SELFPAY ==
--- NOTE | 2024-02-08 17:17 | ED_ITS ---
HPI - Abdominal Pain General Chief Complaint: General Medical Stated Complaint: Abdominal pain/Vomiting Time Seen by Provider: 02/08/24 19:09 Source: patient Mode of arrival: ambulatory History of Present Illness HPI narrative: 48-year-old female who presents with bilateral upper extremity numbness and tingling also complaining of bilateral lower extremity pain and is an everyday alcohol user, has been seen by [facility] yesterday and noted at that time to have low blood pressures that resolved and patient was discharged, last drink was this morning, patient reports that she also has underlying high blood pressure but has not taken her medications today due to the nausea and vomiting and epigastric discomfort she otherwise denies any fevers or chills. Related Data Home Medications ?Medication ?Instructions ?Recorded ?Confirmed acamprosate 333 mg tablet,delayed 666 mg PO TID 11/01/23 12/10/23 release cholecalciferol (vitamin D3) 50 50 mcg PO DAILY 11/01/23 12/10/23 mcg (2,000 unit) tablet folic acid 1 mg tablet 1 mg PO DAILY 11/01/23 12/10/23 hydroxyzine HCl 25 mg tablet 25 mg PO Q6H PRN anxiety 11/01/23 12/10/23 losartan 50 mg tablet 50 mg PO DAILY 11/01/23 12/10/23 magnesium oxide 400 mg (241.3 mg 400 mg PO BID 11/01/23 12/10/23 magnesium) tablet pantoprazole 40 mg tablet,delayed 40 mg PO DAILY 11/01/23 12/10/23 release thiamine HCl (vitamin B1) 100 mg 100 mg PO DAILY 11/01/23 12/10/23 tablet trazodone 100 mg tablet 100 mg PO BEDTIME 11/01/23 12/10/23 clonidine HCl 0.1 mg tablet 0.1 mg PO TID PRN Anxiety 12/10/23 12/10/23 okutcc-[id number] 1 cap PO TID 12/10/23 12/10/23 6,000-19,000-30,000 unit capsule,delayed rel (Creon) metoprolol succinate 25 mg 100 mg PO DAILY 12/10/23 12/10/23 tablet,extended release 24 hr Previous Rx's ?Medication ?Instructions ?Recorded dicyclomine 20 mg tablet 20 mg PO TID #90 tabs 12/06/23 ondansetron 4 mg disintegrating 4 mg PO Q8H PRN nausea and 12/06/23 tablet vomiting #30 tabs sucralfate 100 mg/mL oral 10 ml PO QID #1,000 mL 12/06/23 suspension Allergies Allergy/AdvReac Type Severity Reaction Status Date / Time No Known Allergies Allergy Verified 02/08/24 17:25 Review of Systems Review of Systems Pertinent positives and negatives as stated in HPI [facility] Past Medical History Source: nursing notes reviewed Medical History Alcohol use disorder Pancreatic insufficiency Gastroesophageal reflux disease Essential hypertension Mood disorder Cannabis use disorder Hepatitis C Tobacco use disorder Social History Social History Household Members: Family and None Housing: House Alcohol intake: current Alcohol intake frequency: 3 or more drinks per day Alcohol type: hard liquor Patient Tobacco Use Status: Current everyday Tobacco user Tobacco use type: Cigarette Cigarettes Per Day: 11 Smoked in Last 30 Days: Yes e-Cigarette/Vaping Use: Currently Using Second Hand Smoke Exposure: No Use of substances other than those prescribed or required for medical reasons: Yes Substance Use Type: Marijuana Substance Use Frequency: Daily Advance Directives: Yes Advance Directives on File: Yes Advance Directives Date on File: 12/10/23 service: No Physical Exam ED Vital Signs: Vital Signs - 24 hr 02/08/24 17:18 02/08/24 19:43 02/08/24 20:32 Temperature 98.5 F 97.9 F 97.9 F Pulse Rate 88 93 105 H Respiratory Rate 20 16 19 Blood Pressure 177/91 H 196/101 H 185/94 H Pulse Oximetry 99 98 Oxygen Delivery Method Room Air Room Air Room Air 02/08/24 22:52 Temperature 98.7 F Pulse Rate 98 Respiratory Rate 24 H Blood Pressure 172/91 H Pulse Oximetry 99 Oxygen Delivery Method Room Air BMI result Body Mass Index 21.6 VITAL SIGNS: Reviewed. GENERAL: Well developed, well nourished, in no acute distress. HEAD: Normocephalic/atraumatic EYES: PERRLA, EOMI EARS: Ext canals without abnormality NOSE: Nares patent bilateral OROPHARYNX: no oral lesions noted, posterior pharynx clear NECK: Supple, no adenopathy LUNGS: Normal breath sounds. No adventitious sounds or accessory muscle use. CARDIOVASCULAR: Regular rate and rhythm without noted murmurs, no JVD or lower extremity edema. ABDOMEN: Soft, epigastric discomfort without rebound, non-distended with bowel sounds. MUSCULOSKELETAL: No tenderness, deformities, or effusions noted on gross inspection. EXTREMITIES: No cyanosis, clubbing or edema. SKIN: Inspection of the skin reveals no rashes NEUROLOGIC: Alert and oriented x 4. Strength and sensation to light touch were grossly intact x 4. Course Course Course Narrative: This is an RME: Additional HPI, ROS, PE not included below will be deferred to primary provider. Patient is a 48-year-old female who presents to the emergency department cough, upper/epigastric ABD pain, nausea, vomiting, myalgias, L arm pain/ tingling, near syncope at home, reports symptom onset approximatey 24 hours ago, has history of alcoholic pancreatitis, last drink this AM. Reports was at [facility] ED yesterday, states she was given IV Saline, potassium, magnesium and maybe an x-ray. States she took zofran [employer], no relief Plan: labs, urinalysis Medical Decision Making Medical Decision Making MDM Narrative: 48-year-old female with history and clinical presentation, DDX: Alcohol use disorder, alcoholic pancreatitis, alcoholic gastritis, no hematemesis or neuro symptoms in suspect that numbness and tingling is likely secondary to vitamin deficiency. I reviewed all investigations in patient's hematologic indices are grossly stable without leukocytosis and a noted macrocytic anemia with thrombocytopenia. Chemistry indices are significant for low magnesium/low potassium but no AMRIT and liver enzymes reflective of current alcohol use disorder and lipase is noted be within normal limits but this is likely secondary to chronic symptoms and/or that patient is presenting with alcoholic gastritis instead of alcoholic pancreatitis. INTERVENTION: IV fluids, Zofran, magnesium, and discharge, but in the meantime will place on CIWA. 2200: On re-evaluation patient reports that she still feels mildly nauseous and vomiting, she will be provide her with Reglan/Benadryl and re-evaluated, when offered a prescription for Carafate for the alcoholic gastritis she states that she has some home. Patient is no longer vomiting and will otherwise be discharged home with instructions to follow-up with her primary care doctor on Sunday morning and encouraged to use her Carafate and Zofran at home for continued hydration and stomach relief. Differential Diagnosis Differential Diagnoses: The differential diagnosis associated with the presentation includes Please see the discussion above Admission/Observation Consideration of admission/observation: Escalation of care including admission/observation considered Please see the discussion above Lab Data MDM Lab Attestation statement: I reviewed the patient's lab results. Please see the discussion above 02/08/24 17:32 02/08/24 17:32 Labs: Lab Results 02/08/24 02/08/24 Range/Units 17:32 21:21 WBC 9.0 (4.8-10.8) X10*3/uL RBC 2.96 L (4.20-5.50) X10*6/uL Hgb 10.7 L (12.0-16.0) g/dl Hct 30.2 L (37.0-47.0) % MCV 102.0 H (80.0-98.0) fL MCH 36.1 H (27.0-33.0) pg MCHC 35.4 H (31.0-35.0) g/dl RDW 16.1 H (11.0-16.0) % Plt Count 98 L (160-400) X10*3/uL MPV 9.8 (9.4-12.3) fL Immature Gran % (Auto) 0.3 (0.0-0.4) % Neut % (Auto) 75.8 H (45-73) % Lymph % (Auto) 19.2 L (20-40) % Haines % (Auto) 3.7 (2-11) % Eos % (Auto) 0.4 (0-4) % Baso % (Auto) 0.6 (0-2) % Lymph # (Auto) 1.7 (1.2-4.9) X10*3/uL Haines # (Auto) 0.3 (0.1-1.2) X10*3/uL Eos # (Auto) 0.0 (0.0-0.4) X10*3/uL Baso # (Auto) 0.1 (0.0-0.2) X10*3/uL Abs Immat Gran (auto) 0.03 (0.00-0.03) X10*3/uL Absolute Neuts (auto) 6.8 (2.0-8.3) x10*3/uL Absolute Nucleated RBC 0.030 H (0.0-0.012) X10*3/uL Nucleated RBC % (auto) 0.3 H (0.0-0.2) /100WBC Sodium 139 (135-145) mmol/L Potassium 3.2 L (3.3-5.1) mmol/L Chloride 102 (96-108) mmol/L Carbon Dioxide 20 L (22-29) mmol/L Anion Gap 20 (12-20) BUN 7 L (9-16) mg/dL Creatinine 0.64 (0.5-1.4) mg/dL Estim Creat Clear Calc 87.9 Estimated GFR > 60 Random Glucose 132 H (60-115) mg/dL Calcium 8.8 (8.4-10.2) mg/dL Magnesium 1.1 L* (1.6-2.6) mg/dL Total Bilirubin 1.1 H (0.0-1.0) mg/dL AST 57 H (5-31) U/L ALT 22 (0-31) U/L Alkaline Phosphatase 150 H (39-117) U/L Total Protein 6.9 (6.5-8.0) g/dL Albumin 4.1 (3.5-5.0) g/dL Lipase 33 (8-78) U/L Urine Color Yellow Urine Appearance Cloudy Urine pH 5.5 (5.0-9.0) Ur Specific [place]coe 1.015 (1.005-1.025) Urine Protein Negative (Neg-Trace) mg/dL Urine Glucose (UA) Negative (Negative) mg/dL Urine Ketones 15 (Negative) mg/dL Urine Blood Negative (Negative) Urine Nitrite Negative (Negative) Ur Leukocyte Esterase Small (1+) H (Negative) Urine RBC 0-2 (0-2) /HPF Urine WBC >50 H (0-5) /HPF Ur Squamous Epith Cells 3-5 (0-2) /HPF Urine Bacteria 4+ (None Seen) Hyaline Casts 0-2 (0-2) /LPF Urine Opiates Screen Not Detected (Not Detect) Urine Fentanyl Screen Not Detected (Not Detect) Ur Barbiturates Screen POSITIVE H (Not Detect) Ur Phencyclidine Scrn Not Detected (Not Detect) Ur Amphetamines Screen Not Detected (Not Detect) U Benzodiazepines Scrn POSITIVE H (Not Detect) Urine Cocaine Screen Not Detected (Not Detect) U Marijuana (THC) Screen POSITIVE H (Not Detect) Ethyl Alcohol < 10 mg/dL Influenza Type A (PCR) NEGATIVE (Negative) Influenza Type B (PCR) NEGATIVE (Negative) RSV RNA Qual (PCR) NEGATIVE (Negative) SARS-CoV-2 RNA (RT-PCR) NEGATIVE (Negative) Independent Interpretation I performed an independent interpretation of an: EKG Interpretation: Normal sinus rhythm, HR-79, no STEMI, [place]/QRS/QTC is within normal limits. External Record Review External record reviewed: Outpatient record, Prior outpatient labs and Prior outpatient radiology Chronic Conditions Patient?s care impacted by: Hypertension Social Determinants Patient?s care significantly limited by Social Determinants of Health including: Alcoholism and drug addiction in family Medications Administered Discontinued Medications Generic Name Dose Route Start Last Admin Trade Name Freq PRN Reason Stop Dose Admin Al Hydroxide/Mg Hydroxide 30 ml 02/08/24 19:22 02/08/24 20:29 Magnesium Hydrox/Alum Hydrox 30 Ml Oral.Susp PO 02/08/24 19:23 30 ml ONCE ONE Administration Diphenhydramine HCl 25 mg 02/08/24 22:13 02/08/24 22:32 Diphenhydramine Hcl 50 Mg/Ml Vial IVPUSH 02/08/24 22:14 25 mg ONCE ONE Administration Magnesium Sulfate 2 gm in 50 mls @ 150 mls/hr 02/08/24 19:09 02/08/24 19:44 Magnesium Sulfate/H2o IV 02/08/24 19:28 Infused ONCE ONE Infusion Sodium Chloride 1,000 mls @ 999 mls/hr 02/08/24 19:15 02/08/24 20:32 Ns IV 02/08/24 20:15 Infused .Q1H1M SAMANTHA Infusion Labetalol HCl 5 mg 02/08/24 20:19 02/08/24 20:32 Labetalol Hcl 100 Mg/20 Ml Vial IVPUSH 02/08/24 20:20 5 mg ONCE ONE Administration Lidocaine HCl 10 ml 02/08/24 19:22 02/08/24 20:29 Lidocaine Hcl Viscous 2 % 15 Ml Solution MUCOUS MEM 02/08/24 19:23 10 ml ONCE ONE Administration Metoclopramide HCl 10 mg 02/08/24 22:13 02/08/24 22:32 Metoclopramide Hcl 10 Mg/2 Ml Vial IVPUSH 02/08/24 22:14 10 mg ONCE ONE Administration Ondansetron HCl 4 mg 02/08/24 19:22 02/08/24 19:27 Ondansetron Hcl 4 Mg/2 Ml Vial IVPUSH 02/08/24 19:23 4 mg ONCE ONE Administration Sucralfate 1 gm 02/08/24 19:22 02/08/24 20:30 Sucralfate Oral Suspension 1 Gm/10 Ml Oral.Susp PO 02/08/24 19:23 1 gm ONCE ONE Administration Critical Care Time Critical Care Time Critical Care Time: Yes Total Critical Care Time: 60 Attestation: I personally attest to this time spent taking care of the patient. Discharge Plan Discharge Clinical Impression: Alcoholic gastritis, Alcohol use disorder Patient Disposition: Home, Self-Care Instructions: Abuse of Alcohol (ED), Diet for Stomach Ulcers and Gastritis (ED), Gastritis (ED) Additional Instructions: 1. Resume all home medications as prescribed. 2. I highly encourage you to use the Carafate that you have available at home in combination with your Zofran to help resolve the inflammation of your stomach lining that you are experiencing. Do not hesitate to return to the emergency room should you wish to pursue any detox. Prescriptions: No Action losartan 50 mg tablet 50 mg PO DAILY thiamine HCl (vitamin B1) 100 mg tablet 100 mg PO DAILY magnesium oxide 400 mg (241.3 mg magnesium) tablet 400 mg PO BID trazodone 100 mg tablet 100 mg PO BEDTIME pantoprazole 40 mg tablet,delayed release (DR/EC) 40 mg PO DAILY folic acid 1 mg tablet 1 mg PO DAILY hydroxyzine HCl 25 mg tablet 25 mg PO Q6H PRN (Reason: anxiety) acamprosate 333 mg tablet,delayed release (DR/EC) 666 mg PO TID cholecalciferol (vitamin D3) 50 mcg (2,000 unit) tablet 50 mcg PO DAILY metoprolol succinate 25 mg tablet extended release 24 hr 100 mg PO DAILY Creon 6,000-19,000 -30,000 unit capsule,delayed release(DR/EC) 1 cap PO TID clonidine HCl 0.1 mg tablet 0.1 mg PO TID PRN (Reason: Anxiety) dicyclomine 20 mg tablet 20 mg PO TID Qty: 90 0RF sucralfate 100 mg/mL suspension 10 ml PO QID Qty: 1000 0RF Rx Instructions: swish in mouth and swallow; use after food/drink ondansetron 4 mg tablet,disintegrating 4 mg PO Q8H PRN (Reason: nausea and vomiting) Qty: 30 0RF Referrals: Ayala Patton MD [Primary Care Provider] - Print Language: Telugu
[2024-02-08 17:18] VITALS: BP 177/91; PULSE 88; RESP 20; TEMP 36.9; BMI 21.6
[2024-02-08 17:37] LABS: Basophils Absolute Auto 0.1 X10*3/uL (0.0-0.2); Basophils Percent Auto 0.6 % (0-2); Eosinophils Percent Auto 0.4 % (0-4); Hematocrit 30.2 % (37.0-47.0); Hemoglobin 10.7 g/dl (12.0-16.0); Imm Gran Abs Auto 0.03 X10*3/uL (0.00-0.03); Imm Gran Pct Auto 0.3 % (0.0-0.4); Lymphocytes Absolute Auto 1.7 X10*3/uL (1.2-4.9); Lymphocytes Percent Auto 19.2 % (20-40); MANUAL DIFF FLAG NO; Mean Corpuscular HGB Conc 35.4 g/dl (31.0-35.0); Mean Corpuscular Hemoglobin 36.1 pg (27.0-33.0); Mean Platelet Volume 9.8 fL (9.4-12.3); Monocytes Absolute Auto 0.3 X10*3/uL (0.1-1.2); Monocytes Percent Auto 3.7 % (2-11); NRBC Pct Auto 0.3 /100WBC (0.0-0.2); Neutrophils Absolute Auto 6.8 x10*3/uL (2.0-8.3); Neutrophils Percent Auto 75.8 % (45-73); Red Blood Count 2.96 X10*6/uL (4.20-5.50); Red Cell Distribution Width 16.1 % (11.0-16.0)
[2024-02-08 17:53] LABS: Ethanol < 10 mg/dL
[2024-02-08 17:57] LABS: Alanine Aminotransferase 22 U/L (0-31); Albumin Level 4.1 g/dL (3.5-5.0); Alkaline Phosphatase 150 U/L (39-117); Anion Gap 20 (12-20); Aspartate Amino Transferase 57 U/L (5-31); Bilirubin Total 1.1 mg/dL (0.0-1.0); Blood Urea Nitrogen 7 mg/dL (9-16); Calcium 8.8 mg/dL (8.4-10.2); Carbon Dioxide 20 mmol/L (22-29); Chloride 102 mmol/L (96-108); Creatinine Clr Calc Pharmacy 87.9; Estimated Glomerular Filt Rate > 60; Glucose Random 132 mg/dL (60-115); Lipase 33 U/L (8-78); Magnesium 1.1 mg/dL (1.6-2.6); Platelet Count 98 X10*3/uL (160-400); Potassium 3.2 mmol/L (3.3-5.1); Sodium 139 mmol/L (135-145); Total Protein 6.9 g/dL (6.5-8.0)
--- NOTE | 2024-02-08 17:57 | ECG_ITS ---
Test Reason : ELETROLYTE ABNORMALITY Blood Pressure : / mmHG Vent. Rate : 079 BPM Atrial Rate : 079 BPM P-R Int : 132 ms QRS Dur : 090 ms QT Int : 420 ms P-R-T Axes : 037 047 055 degrees QTc Int : 481 ms Normal sinus rhythm Septal infarct , age undetermined Abnormal ECG When compared with ECG of 10-DEC-2023 03:08, Septal infarct is now Present T wave inversion now evident in Anterior leads Referred By: Goldie Noriega Electronically Signed By:Louie Last
[2024-02-08 18:19] LABS: Influenza A PCR NEGATIVE (Negative); Influenza B PCR NEGATIVE (Negative); Resp Syncy Virus RNA Qual PCR NEGATIVE (Negative); SARS COV2 PCR INHOUSE NEGATIVE (Negative)
[2024-02-08] MEDS: 0.9 % Sodium Chloride 1,000 ML 999 ML IV (19:24)
[2024-02-08] MEDS: Magnesium Sulfate/H2O 2 GM/50 ML PIGGYBACK IV (19:24)
[2024-02-08] MEDS: ondansetron HCL 4 MG/2 ML VIAL IVPUSH (19:27)
--- NOTE | 2024-02-08 19:31 | PC.NURSE ---
pt from home, a&ox4, respirations even and unlabored, reporting onset of epigastric burning, nausea, vomiting and diarrhea since this morning. pt reports having 7-8 shots of liquor this morning and reports the pain did not subside. pt reports daily etoh use and reports hx of alcohol withdrawl but denies seizures. pt denies chest pain and ambulated onto stretcher with steady gait. pt normal sinus on tele 80-85.
[2024-02-08 19:43] VITALS: BP 196/101; PULSE 93; RESP 16; TEMP 36.6; O2SAT 99
--- NOTE | 2024-02-08 20:02 | PC.NURSE ---
delay in PO medications due to pt actively throwing up and nausea.
[2024-02-08] MEDS: Lidocaine HCl Viscous 2 % 15 ML SOLUTION 10 ML MUCOUS MEM (20:29)
[2024-02-08] MEDS: Magnesium Hydrox/Alum Hydrox 30 ML ORAL.SUSP PO (20:29)
[2024-02-08] MEDS: Sucralfate Oral Suspension 1 GM/10 ML ORAL.SUSP PO (20:30)
[2024-02-08 20:32] VITALS: BP 185/94; PULSE 105; RESP 19; TEMP 36.6; O2SAT 98
[2024-02-08] MEDS: Labetalol HCL 100 MG/20 ML VIAL IVPUSH (20:32)
--- NOTE | 2024-02-08 20:34 | PC.NURSE ---
pt medicated per mar, pt tolerated well with, denies nausea.
[2024-02-08 21:28] LABS: Appearance Urine Cloudy; Color Urine Yellow; Glucose Urine UA Negative (Negative); Leukocyte Esterase Urine Small (1+) (Negative); Nitrite Urine Negative (Negative); PH 5.5 (5.0-9.0); Specific Gravity - Urine 1.015 (1.005-1.025); UMIC TRIGGER UACC YES; Urine Blood Negative (Negative); Urine Ketones 15 mg/dL (Negative); Urine Protein Negative (Neg-Trace)
[2024-02-08 21:33] LABS: Bacteria Urine 4+ (None Seen); Hyaline Casts Urine 0-2 /LPF (0-2); RBC Urine 0-2 /HPF (0-2); UACC Culture Trigger YES; WBC Urine >50 /HPF (0-5)
[2024-02-08 21:37] LABS: Amphetamine Screen Urine Not Detected (Not Detect); Barbiturates, Urine POSITIVE (Not Detect); Benzodiazepines Screen Urine POSITIVE (Not Detect); Cannabinoid Screen Urine POSITIVE (Not Detect); Cocaine Screen Urine Not Detected (Not Detect); Fentanyl, urine Not Detected (Not Detect); Opiate Screen Urine Not Detected (Not Detect); Phencyclidine Screen Urine Not Detected (Not Detect)
[2024-02-08] MEDS: diphenhydrAMINE HCL 50 MG/ML VIAL 25 MG IVPUSH (22:32)
[2024-02-08] MEDS: Metoclopramide HCl 10 MG/2 ML VIAL IVPUSH (22:32)
[2024-02-08 22:52] VITALS: BP 172/91; PULSE 98; RESP 24; TEMP 37.1; O2SAT 99
--- NOTE | 2024-02-08 23:38 | PC.NURSE ---
pt allowed to sleep, respirations even and unlabored,normal sinus on tele 98-99bpm
[2024-02-09 00:39] VITALS: BP 172/91; PULSE 98; RESP 24; TEMP 37.1; O2SAT 99
== END 2024-02-09 00:47 | disposition home or self-care (01) ==
PROVIDERS: Nurse Practitioner Family; Emergency Provider Student in an Organized Health Care Education/Training Program; PCP Internal Medicine
DX: K29.20 Alcoholic gastritis without bleeding (principal); F10.90 Alcohol use, unspecified, uncomplicated; Y90.0 Blood alcohol level of less than 20 mg/100 ml; N39.0 Urinary tract infection, site not specified; I10 Essential (primary) hypertension
CPT/HCPCS: 0241U; 36415; 80053; 80307; 81001; 83690; 83735; 85025; 87086; 87088; 87186; 93005; 96361; 96374; 96375; 99284; 99285; J1200; J1920; J2405; J2765; J3475

== ENCOUNTER → 2024-02-08 17:57 | Outpatient (BNV) | payer OTHER, SELFPAY | PROVIDERS: Emergency Provider Student in an Organized Health Care Education/Training Program; PCP Internal Medicine; Visit Provider Internal Medicine Cardiovascular Disease | DX: R94.31 Abnormal electrocardiogram [ECG] [EKG] (principal) | CPT/HCPCS: 93010 ==

== ENCOUNTER 2024-02-25 19:59 | Inpatient (IN) | payer OTHER, SELFPAY ==
[2024-02-25 20:44] VITALS: BP 175/92; PULSE 88; RESP 18; TEMP 36.6; O2SAT 96; BMI 22.9
--- NOTE | 2024-02-25 20:48 | ED_ITS ---
HPI - General Adult General Chief complaint: Nausea/Vomiting/Diarrhea Stated complaint: Vomiting blood Time Seen by Provider: 02/25/24 22:07 Source: patient, family and old records reviewed Mode of arrival: ambulatory Limitations: no limitations History of Present Illness HPI narrative: 48 yo female with ETOH abuse last drink today withdrawal seizure 2 years ago frequent admissions is supposed to be on acamprosate here with c/o last drink sometime today no trauma or falls no SI but reports n/v non stop and some pink tinge no vanesa blood but now has cramps and persistent nausea with shakes. Hx of same in past. asking about her Mag and K. MCMAHON complaint: alcohol withdrawal Onset (ago): day(s) (1) Radiation: non-radiation Severity: moderate Quality: dull Pain Consistency: intermittent Relieving factors: rest Exacerbating factors: movement Associated symptoms: loss of appetite, malaise and other (shakes, cramps, tremors) Treatments prior to arrival: none Related Data Home Medications ?Medication ?Instructions ?Recorded ?Confirmed acamprosate 333 mg tablet,delayed 666 mg PO TID 11/01/23 12/10/23 release cholecalciferol (vitamin D3) 50 50 mcg PO DAILY 11/01/23 12/10/23 mcg (2,000 unit) tablet folic acid 1 mg tablet 1 mg PO DAILY 11/01/23 12/10/23 hydroxyzine HCl 25 mg tablet 25 mg PO Q6H PRN anxiety 11/01/23 12/10/23 losartan 50 mg tablet 50 mg PO DAILY 11/01/23 12/10/23 magnesium oxide 400 mg (241.3 mg 400 mg PO BID 11/01/23 12/10/23 magnesium) tablet pantoprazole 40 mg tablet,delayed 40 mg PO DAILY 11/01/23 12/10/23 release thiamine HCl (vitamin B1) 100 mg 100 mg PO DAILY 11/01/23 12/10/23 tablet trazodone 100 mg tablet 100 mg PO BEDTIME 11/01/23 12/10/23 clonidine HCl 0.1 mg tablet 0.1 mg PO TID PRN Anxiety 12/10/23 12/10/23 vybqft-ehhrcddn-fbaihns 1 cap PO TID 12/10/23 12/10/23 6,000-19,000-30,000 unit capsule,delayed rel (Creon) metoprolol succinate 25 mg 100 mg PO DAILY 12/10/23 12/10/23 tablet,extended release 24 hr Previous Rx's ?Medication ?Instructions ?Recorded dicyclomine 20 mg tablet 20 mg PO TID #90 tabs 12/06/23 ondansetron 4 mg disintegrating 4 mg PO Q8H PRN nausea and 12/06/23 tablet vomiting #30 tabs sucralfate 100 mg/mL oral 10 ml PO QID #1,000 mL 12/06/23 suspension cefuroxime axetil 250 mg tablet 250 mg PO BID 7 days #14 tabs 02/13/24 Allergies Allergy/AdvReac Type Severity Reaction Status Date / Time No Known Allergies Allergy Verified 02/25/24 20:48 Review of Systems 2 Review of Systems: Constitutional : No Fever, No Chills, No Fatigue ENT/Mouth : No sore throat, No Rhinorrhea Eyes: No Eye Pain, No Swelling, No Redness Cardiovascular : No Chest Pain, No SOB, No Dyspnea on Exertion Respiratory : No Cough, No Sputum Gastrointestinal : pos Nausea, pos Vomiting, No Diarrhea, No abdominal Pain Genitourinary : No Dysuria, No Urinary Frequency, No Hematuria, Musculoskeletal : No joint pain, pos Myalgias, No Joint Swelling Skin : No Skin Lesions, No rash Neuro : No Weakness, No Numbness, No Dizziness, no Headache, pos tremors Psych : No Anxiety/Panic, No Depression Heme/Lymph: No Bruising, No Bleeding,No Lymphadenopathy Endocrine : No Polyuria, No Polydipsia All other systems reviewed and are negative COUNTS INCLUDE 234 BEDS AT THE [facility] Past Medical History Attestation statement: The following information was validated with the patient. Source: old records reviewed Medical History Alcohol use disorder Pancreatic insufficiency Gastroesophageal reflux disease Essential hypertension Mood disorder Cannabis use disorder Hepatitis C Tobacco use disorder Social History Social History Household Members: Family and None Housing: House Alcohol intake: current Alcohol intake frequency: 3 or more drinks per day Alcohol type: hard liquor Patient Tobacco Use Status: Current everyday Tobacco user Tobacco use type: Cigarette Cigarettes Per Day: 11 e-Cigarette/Vaping Use: Currently Using Second Hand Smoke Exposure: No Substance Use Type: Marijuana Advance Directives: Yes Advance Directives on File: Yes Advance Directives Date on File: 12/10/23 Do you have a plan to hurt others: No Plan service: No Physical Exam ED Vital Signs: Vital Signs - 24 hr 02/25/24 20:44 Temperature 97.8 F Pulse Rate 88 Respiratory Rate 18 Blood Pressure 175/92 H Pulse Oximetry 96 Oxygen Delivery Method Room Air BMI result Body Mass Index 22.9 Appearance: Alert. Oriented X3. anxious, tremors, moderate acute distress. Eyes: Pupils equal, round and reactive to light. ENT: Pharynx dry MM. atraumatic Neck: Normal inspection. Neck supple. CVS: tachycardic heart rate and rhythm. Pulses normal. Respiratory: No respiratory distress. Breath sounds normal. Abdomen: Soft and nontender. Skin: Skin warm and dry. Normal skin color. Normal skin turgor. Extremities: No lower extremity edema. No calf ttp Neuro: Oriented X 3. No motor deficit. No sensory deficit. tremors noted Course Course Course Narrative: This is an RME: Additional HPI, ROS, PE not included below will be deferred to primary provider. 48 yo f hx of alcohol abuse, cannabis use disorder, hepatic encephalopathy, alcohol w/drawl seizures presents w/ fatigue, malaise, nausea, abd pain and hallucinations X 1 day. Hx of pancreatitis. Last drink 7:30 om Plan- labs- Medications Administered Generic Name Dose Route Start Last Admin Trade Name Freq PRN Reason Stop Dose Admin Magnesium Sulfate 2 gm in 50 mls @ 50 mls/hr 02/25/24 22:08 02/25/24 22:53 Magnesium Sulfate/H2o IV 02/25/24 23:07 50 mls/hr ONCE ONE Administration Sodium Chloride 1,000 mls @ 999 mls/hr 02/25/24 22:15 02/25/24 22:38 Ns IV 02/25/24 23:15 999 mls/hr .Q1H1M SAMANTHA Administration Sodium Chloride 1,000 mls @ 999 mls/hr 02/25/24 22:15 02/25/24 22:39 Ns IV 02/25/24 23:15 999 mls/hr .Q1H1M SAMANTHA Administration Discontinued Medications Generic Name Dose Route Start Last Admin Trade Name Freq PRN Reason Stop Dose Admin Thiamine HCl 200 mg/ Sodium 102 mls @ 204 mls/hr 02/25/24 22:34 02/25/24 22:39 Chloride IV 02/25/24 23:03 204 mls/hr ONCE ONE Administration Lorazepam 2 mg 02/25/24 22:08 02/25/24 22:40 Lorazepam 2 Mg/Ml Vial IVPUSH 02/25/24 22:09 2 mg ONCE ONE Administration Ondansetron HCl 4 mg 02/25/24 20:48 02/25/24 20:51 Ondansetron Odt 4 Mg Tab.Rapdis TRANSLINGU 02/25/24 20:49 4 mg ONCE ONE Administration Pantoprazole Sodium 40 mg 02/25/24 22:08 02/25/24 22:39 Pantoprazole Sodium 40 Mg/10 Ml Vial IVPUSH 02/25/24 22:09 40 mg ONCE ONE Administration Procedures EJ/Peripheral Line Arm L: Time Out Performed: Yes Skin Cleansed in Sterile Fashion: Yes Size (gauge): 20 IV Secured and Dressing Applied: Yes Patient Tolerated Procedure: well and no complications Medical Decision Making Medical Decision Making MDM Narrative: 48 yo female well known to us with hx of ETOH withdrawal and prior seizures here with c/o tremors, n/v and concern for K and Mag abnormality given muscle cramps at this time will need labs, IVF, ativan and start on lytes, thiamine and empiric phenobarb plan to admit given presentation Differential Diagnosis Differential Diagnoses: The differential diagnosis associated with the presentation includes alcohol withdrawal, lyte abnormality, dehydration Admission/Observation Consideration of admission/observation: Escalation of care including admission/observation considered admit given low magnesium, weakness, n/v and alcohol withdrawal Consult Healthcare Provider Management of the patient was discussed with: Hospitalist (will admit) Lab Data [facility] Lab Attestation statement: I reviewed the patient's lab results. 02/25/24 20:59 02/25/24 20:59 Labs: Lab Results 02/25/24 Range/Units 20:59 WBC 7.9 (4.8-10.8) X10*3/uL RBC 3.64 L D (4.20-5.50) X10*6/uL Hgb 13.5 D (12.0-16.0) g/dl Hct 37.7 D (37.0-47.0) % MCV 103.6 H (80.0-98.0) fL MCH 37.1 H (27.0-33.0) pg MCHC 35.8 H (31.0-35.0) g/dl RDW 15.2 (11.0-16.0) % Plt Count 187 D (160-400) X10*3/uL MPV 9.8 (9.4-12.3) fL Immature Gran % (Auto) 0.3 (0.0-0.4) % Neut % (Auto) 55.0 (45-73) % Lymph % (Auto) 38.7 (20-40) % [place] % (Auto) 4.4 (2-11) % Eos % (Auto) 0.3 (0-4) % Baso % (Auto) 1.3 (0-2) % Lymph # (Auto) 3.1 (1.2-4.9) X10*3/uL [place] # (Auto) 0.4 (0.1-1.2) X10*3/uL Eos # (Auto) 0.0 (0.0-0.4) X10*3/uL Baso # (Auto) 0.1 (0.0-0.2) X10*3/uL Abs Immat Gran (auto) 0.02 (0.00-0.03) X10*3/uL Absolute Neuts (auto) 4.4 (2.0-8.3) x10*3/uL Absolute Nucleated RBC 0.020 H (0.0-0.012) X10*3/uL Nucleated RBC % (auto) 0.3 H (0.0-0.2) /100WBC Sodium 139 (135-145) mmol/L Potassium 3.3 (3.3-5.1) mmol/L Chloride 95 L (96-108) mmol/L Carbon Dioxide 19 L (22-29) mmol/L Anion Gap 28 H (12-20) BUN 9 (9-16) mg/dL Creatinine 0.66 (0.5-1.4) mg/dL Estim Creat Clear Calc 81.5 Estimated GFR > 60 Random Glucose 109 (60-115) mg/dL Calcium 9.0 (8.4-10.2) mg/dL Magnesium 1.0 L* (1.6-2.6) mg/dL Total Bilirubin 0.7 (0.0-1.0) mg/dL AST 83 H (5-31) U/L ALT 35 H (0-31) U/L Alkaline Phosphatase 169 H (39-117) U/L Total Protein 7.4 (6.5-8.0) g/dL Albumin 4.0 (3.5-5.0) g/dL Lipase 14 (8-78) U/L Salicylates < 5.0 L (15-30) mg/dL Acetaminophen < 3 (<30) mcg/mL Ethyl Alcohol 159 mg/dL Independent Interpretation I performed an independent interpretation of an: EKG Interpretation: Rate: 101 Rhythm: sinus tachycardia [place]: normal Normal P waves. Normal OG. Normal QRS complex. ST T wave : nonspecific ST T wave changes inf leads, no PROSPER qTC: 516 prior studies: no acute ischemia The study has been interpreted contemporaneously by me. . External Record Review External record reviewed: Inpatient record Critical Care Time Critical Care Time Critical Care Time: Yes Total Critical Care Time: 45 Attestation: IVF x 2L, IV magnesium, phenobarb protocol, review of records. I attest to this time spent taking care of the patient Discharge Plan Discharge Clinical Impression: Hypomagnesemia, Alcoholic ketoacidosis Alcohol withdrawal Qualifiers: Complication of substance-induced condition: uncomplicated Qualified Code(s): F 10930 - Alcohol use, unspecified with withdrawal, uncomplicated Nausea & vomiting Qualifiers: Vomiting type: unspecified Qualified Code(s): R11.2 - Nausea with vomiting, unspecified Patient Disposition: Admitted As Inpatient
[2024-02-25] MEDS: Ondansetron ODT 4 MG TAB.RAPDIS TRANSLINGU (20:51)
[2024-02-25 21:05] LABS: MANUAL DIFF FLAG NO
[2024-02-25 21:07] LABS: Basophils Absolute Auto 0.1 X10*3/uL (0.0-0.2); Basophils Percent Auto 1.3 % (0-2); Eosinophils Percent Auto 0.3 % (0-4); Hematocrit 37.7 % (37.0-47.0); Hemoglobin 13.5 g/dl (12.0-16.0); Imm Gran Abs Auto 0.02 X10*3/uL (0.00-0.03); Imm Gran Pct Auto 0.3 % (0.0-0.4); Lymphocytes Absolute Auto 3.1 X10*3/uL (1.2-4.9); Lymphocytes Percent Auto 38.7 % (20-40); Mean Corpuscular HGB Conc 35.8 g/dl (31.0-35.0); Mean Corpuscular Hemoglobin 37.1 pg (27.0-33.0); Mean Corpuscular Volume 103.6 fL (80.0-98.0); Mean Platelet Volume 9.8 fL (9.4-12.3); Monocytes Absolute Auto 0.4 X10*3/uL (0.1-1.2); Monocytes Percent Auto 4.4 % (2-11); NRBC Pct Auto 0.3 /100WBC (0.0-0.2); Neutrophils Absolute Auto 4.4 x10*3/uL (2.0-8.3); Platelet Count 187 X10*3/uL (160-400); Red Blood Count 3.64 X10*6/uL (4.20-5.50); Red Cell Distribution Width 15.2 % (11.0-16.0); White Blood Count 7.9 X10*3/uL (4.8-10.8)
[2024-02-25 21:23] LABS: Acetaminophen LAB < 3 mcg/mL (<30); Salicylate < 5.0 mg/dL (15-30)
[2024-02-25 21:27] LABS: Alanine Aminotransferase 35 U/L (0-31); Alkaline Phosphatase 169 U/L (39-117); Anion Gap 28 (12-20); Aspartate Amino Transferase 83 U/L (5-31); Bilirubin Total 0.7 mg/dL (0.0-1.0); Blood Urea Nitrogen 9 mg/dL (9-16); Carbon Dioxide 19 mmol/L (22-29); Chloride 95 mmol/L (96-108); Creatinine Clr Calc Pharmacy 81.5; Estimated Glomerular Filt Rate > 60; Ethanol 159 mg/dL; Glucose Random 109 mg/dL (60-115); Lipase 14 U/L (8-78); Potassium 3.3 mmol/L (3.3-5.1); Sodium 139 mmol/L (135-145); Total Protein 7.4 g/dL (6.5-8.0)
[2024-02-25] MEDS: 0.9 % Sodium Chloride 1,000 ML 999 ML IV ×2 (22:38→22:39)
[2024-02-25] MEDS: Thiamine HCL 200 MG in 0.9 % Sodium Chloride 100 ML 204 MG IV (22:39)
[2024-02-25] MEDS: Pantoprazole Sodium 40 MG/10 ML VIAL IVPUSH (22:39)
[2024-02-25] MEDS: LORazepam 2 MG/ML VIAL IVPUSH (22:40)
--- NOTE | 2024-02-25 22:47 | ECG_ITS ---
Test Reason : LOW MAG Blood Pressure : / mmHG Vent. Rate : 101 BPM Atrial Rate : 101 BPM P-R Int : 172 ms QRS Dur : 088 ms QT Int : 398 ms P-R-T Axes : 063 058 042 degrees QTc Int : 516 ms Sinus tachycardia Nonspecific ST abnormality Abnormal ECG When compared with ECG of 08-FEB-2024 18:15, Criteria for Septal infarct are no longer Present Nonspecific ST and T wave abnormality more prominent Referred By: Zainab Ramirez Electronically Signed By:MIKA JENNINGS
[2024-02-25] MEDS: Magnesium Sulfate/H2O 2 GM/50 ML PIGGYBACK IV (22:53)
--- NOTE | 2024-02-25 22:53 | PM.IMHP ---
History of Present Illness Date of Service: 02/25/24 Chief Complaint: Nausea/vomiting This is a 48-year-old female with pertinent history of alcohol use disorder with history of alcohol withdrawal seizures, mood disorder, tobacco use disorder, marijuana use disorder, history of hepatitis-C status post outpatient treatment, chronic pancreatic insufficiency, gastroesophageal reflux disease, essential hypertension who presents to the emergency department for concerns of alcohol withdrawal and evaluation of nausea and vomiting. Frequent admissions to the hospital with alcohol withdrawal. Her last drink was on the day of presentation. Patient has been having multiple episodes of nausea and vomiting. Her last episode of vomiting was with pink tinge, no vanesa blood. No abdominal discomfort or change in bowel habits. Patient states she drinks about 5 nips per day. No fever, chills, chest discomfort, palpitations, shortness of breath, changes in urinary habits. In the emergency department, patient was found to have low magnesium. Review of Systems Constitutional: Constitutional: Reports fatigue Cardiovascular: Cardiovascular: Reports no additional cardiovascular complaints Respiratory: Respiratory: Reports no additional respiratory complaints Gastrointestinal: Gastrointestinal: Reports nausea and Reports vomiting Endocrine: Endocrine: Reports fatigue [facility] Medical History Alcohol use disorder Pancreatic insufficiency Gastroesophageal reflux disease Essential hypertension Mood disorder Cannabis use disorder Hepatitis C Tobacco use disorder Pertinent family history: No family history of early CAD Social History Household Members: Children Housing: House Do you presently have visiting nurse or other home services: No Alcohol intake: current Alcohol intake frequency: 3 or more drinks per day Alcohol type: hard liquor Patient Tobacco Use Status: Current everyday Tobacco user Tobacco use type: Cigarette Cigarettes Per Day: 10 Smoked in Last 30 Days: Yes e-Cigarette/Vaping Use: Currently Using Patient Interested in Nicotine Replacement: No Patient Given Instructions on How to Stop Smoking: No Second Hand Smoke Exposure: No Use of substances other than those prescribed or required for medical reasons: Yes Substance Use Type: Marijuana Substance Use Frequency: Occasionally Last Used Substance: Days (ago) Currently Displaying Signs/Symptoms of Drug Intoxication Withdrawal: No Any prior treatment program specific to substance use: No Have you been hit, kicked, punched, or otherwise hurt by someone within the past year? If so, by whom?: No Do you feel safe in your current relationship?: No Current Relationship Is there a partner from a previous relationship who is making you feel unsafe now?: No Are you made to feel afraid or neglected: No Advance Directives: Yes Advance Directives on File: Yes Advance Directives Date on File: 12/10/23 Do you have a plan to hurt others: No Plan Recently lost weight without trying: No How much weight loss: Not applicable Eating poorly because of decreased appetite: No Nutrition screen score: 0 Nutrition Risks: No Nutritional Risk Patient : No : No Poor oral hygiene: No service: No Meds Allergies Allergy/AdvReac Type Severity Reaction Status Date / Time No Known Allergies Allergy Verified 02/25/24 20:48 Active Medications: Current Medications Acetaminophen (Acetaminophen 325 Mg Tablet) 650 mg PO Q6H PRN PRN Reason: Pain, Mild (Pain Scale 1-3) Magnesium Sulfate (Magnesium Sulfate/H2o) 2 gm in 50 mls @ 50 mls/hr IV ONCE ONE Stop: 02/25/24 23:07 Sodium Chloride (Ns) 1,000 mls @ 999 mls/hr IV .Q1H1M SAMANTHA Stop: 02/25/24 23:15 Last Admin: 02/25/24 22:38 Dose: 999 mls/hr Sodium Chloride (Ns) 1,000 mls @ 999 mls/hr IV .Q1H1M SAMANTHA Stop: 02/25/24 23:15 Last Admin: 02/25/24 22:39 Dose: 999 mls/hr Thiamine HCl 200 mg/ Sodium (Chloride) 102 mls @ 204 mls/hr IV ONCE ONE Stop: 02/25/24 23:03 Last Admin: 02/25/24 22:39 Dose: 204 mls/hr Melatonin (Melatonin 3 Mg Tablet) 6 mg PO BEDTIME PRN PRN Reason: Insomnia Ondansetron HCl (Ondansetron Hcl 4 Mg/2 Ml Vial) 4 mg IVPUSH Q8H PRN PRN Reason: Nausea and Vomiting Pharmacy Consult (Consult Rx Etoh Phenob Im/Po) 1 each MISCELLANE ONCE PRN; Protocol PRN Reason: Consult order Phenobarbital (Phenobarbital 30 Mg Tablet) 30 mg PO BID [facility]; Protocol Stop: 02/27/24 21:01 Phenobarbital (Phenobarbital 15 Mg Tablet) 15 mg PO BID [facility]; Protocol Stop: 05/03/24 21:01 Phenobarbital (Phenobarbital 15 Mg Tablet) 15 mg PO DAILY [facility]; Protocol Stop: 03/02/24 09:01 Phenobarbital Sodium (Phenobarbital Sodium 130 Mg/Ml Im Once) 200.2 mg IM ONCE ONE; Protocol Stop: 02/26/24 00:01 Phenobarbital Sodium (Phenobarbital Sodium 130 Mg/Ml Vial Im Q3hx2) 150.8 mg IM Q3H SAMANTHA; Protocol Stop: 02/26/24 06:01 Sodium Chloride (0.9 % Sodium Chloride Flush 3 Ml Syringe) 3 ml IVFLUSH QSHIFT [facility] Home Medications ?Medication ?Instructions ?Recorded ?Confirmed ?Last Taken ?Type acamprosate 333 mg tablet,delayed 666 mg PO TID 11/01/23 12/10/23 11/01/23 History release cholecalciferol (vitamin D3) 50 50 mcg PO DAILY 11/01/23 12/10/23 11/01/23 History mcg (2,000 unit) tablet folic acid 1 mg tablet 1 mg PO DAILY 11/01/23 12/10/23 11/01/23 History hydroxyzine HCl 25 mg tablet 25 mg PO Q6H PRN anxiety 11/01/23 12/10/23 Unknown History losartan 50 mg tablet 50 mg PO DAILY 11/01/23 12/10/23 11/01/23 History magnesium oxide 400 mg (241.3 mg 400 mg PO BID 11/01/23 12/10/23 11/01/23 History magnesium) tablet pantoprazole 40 mg tablet,delayed 40 mg PO DAILY 11/01/23 12/10/23 11/01/23 History release thiamine HCl (vitamin B1) 100 mg 100 mg PO DAILY 11/01/23 12/10/23 11/01/23 History tablet trazodone 100 mg tablet 100 mg PO BEDTIME 11/01/23 12/10/23 10/31/23 History clonidine HCl 0.1 mg tablet 0.1 mg PO TID PRN Anxiety 12/10/23 12/10/23 Unknown History vogelw-cyuzadra-ozupgws 1 cap PO TID 12/10/23 12/10/23 Unknown History 6,000-19,000-30,000 unit capsule,delayed rel (Creon) metoprolol succinate 25 mg 100 mg PO DAILY 12/10/23 12/10/23 Unknown History tablet,extended release 24 hr Physical Exam Vital Signs and Narrative: Vital Signs: Last Vital Signs Temp 97.8 F 02/25/24 20:44 Pulse 88 02/25/24 20:44 Resp 18 02/25/24 20:44 BP 175/92 H 02/25/24 20:44 Pulse Ox 96 02/25/24 20:44 O2 Del Method Room Air 02/25/24 20:44 BMI result Body Mass Index 22.9 Middle-aged female lying in bed in no distress Neck supple, no JVD Regular rate and rhythm, S1-S2 heard Regular breath sounds bilaterally, no wheezing or crackles appreciated Abdomen soft nontender, no guarding, no rigidity Patient is awake, alert and oriented to self, place, time and person ; no focal motor deficit Psych: Drowsy No pedal edema Results Labs 02/25/24 20:59 02/25/24 20:59 Labs: Laboratory Results - last 24 hr 02/25/24 20:59 MCV 103.6 H MCH 37.1 H MCHC 35.8 H RDW 15.2 Plt Count 187 D MPV 9.8 Immature Gran % (Auto) 0.3 Neut % (Auto) 55.0 Lymph % (Auto) 38.7 [place] % (Auto) 4.4 Eos % (Auto) 0.3 Baso % (Auto) 1.3 Lymph # (Auto) 3.1 [place] # (Auto) 0.4 Eos # (Auto) 0.0 Baso # (Auto) 0.1 Abs Immat Gran (auto) 0.02 Absolute Neuts (auto) 4.4 Absolute Nucleated RBC 0.020 H Nucleated RBC % (auto) 0.3 H Anion Gap 28 H Estim Creat Clear Calc 81.5 Estimated GFR > 60 Random Glucose 109 Calcium 9.0 Magnesium 1.0 L* Total Bilirubin 0.7 AST 83 H ALT 35 H Alkaline Phosphatase 169 H Total Protein 7.4 Albumin 4.0 Lipase 14 Salicylates < 5.0 L Acetaminophen < 3 Ethyl Alcohol 159 Assessment and Plan (1) Alcohol withdrawal: Qualifiers: Complication of substance-induced condition: uncomplicated Qualified Code(s): F10.930 - Alcohol use, unspecified with withdrawal, uncomplicated Status: Acute Plan This is a 48-year-old female with pertinent history of alcohol use disorder with history of alcohol withdrawal seizures, mood disorder, tobacco use disorder, marijuana use disorder, history of hepatitis-C status post outpatient treatment, chronic pancreatic insufficiency, gastroesophageal reflux disease, essential hypertension who presents to the emergency department for concerns of alcohol withdrawal and evaluation of nausea and vomiting. #. Alcohol withdrawal in a patient with alcohol use disorder: Initiated on phenobarb protocol in the ER. Consulting Addiction Team. Continue thiamine and folic acid. Monitor CIWA #. Alcoholic ketoacidosis: Ordered dextrose infused crystalloids. #. Nausea/vomiting: due to alcoholic gastritis. Supportive care for now. On PPI. Last episode of vomitus with pink tinge, no vanesa blood. Monitor H and H. Will need GI if vanesa hematemesis #. Hypomagnesemia due to GI losses: Repleted #. Chronic pancreatic insufficiency: Continue enzyme supplementation #. Mood disorder: Continue home mood stabilizers #. Essential hypertension: On losartan Med rec pending DVT prophylaxis: Lovenox Full code Admit as inpatient and will require two night minimum hospital stay for alcohol withdrawal, monitoring of electrolytes (as above), which is not possible in a lesser acute setting. Quality Stroke Does the patient have a stroke diagnosis?: No VTE Prior VTE?: No VTE Risk Level:: Medical - moderate - high VTE Device Contraindication: Treatment Not Indicated VTE Drug Contraindication: N/A - Med Ordered
--- NOTE | 2024-02-25 23:15 | PC.NURSE ---
pt from home, a&ox4, respirations even and unlabored. pt reporting nausea and vomiting since 730pm, pt reporting chronic etoh use, reports last drink was 730pm and reports she had 7 vodka nips. 20G placed in left wrist, pt medicated per dec. pt sinus tachy on tele 100-102bpm. pt reports she would not like a consult to addiction for alcohol use.
[2024-02-25 23:17] VITALS: BP 131/73; PULSE 104; RESP 21; TEMP 36.4; O2SAT 93
[2024-02-26] VITALS (9 sets, daily range): BP systolic 132–180; BP diastolic 69–95; PULSE 82–105; RESP 16–19; TEMP 36–36.8; O2SAT 93–95; BMI 22.3
[2024-02-26] MEDS: PHENobarbitaL sodium 130 MG/ML IM ONCE 200.2 MG IM (00:17)
[2024-02-26 00:33] LABS: Ammonia 41 umol/L (13-55)
[2024-02-26] MEDS: Dextrose 5 % and 0.9 % NaCl 1,000 ML 125 ML IVCONT (01:52)
[2024-02-26] MEDS: PHENobarbitaL sodium 130 MG/ML VIAL IM Q3Hx2 150.8 MG IM ×2 (02:40→05:40)
[2024-02-26 03:56] LABS: Appearance Urine Clear; Color Urine Yellow; Glucose Urine UA Negative (Negative); Leukocyte Esterase Urine Negative (Negative); Nitrite Urine Negative (Negative); PH 6.5 (5.0-9.0); Urine Blood Negative (Negative); Urine Ketones 15 mg/dL (Negative); Urine Protein Negative (Neg-Trace)
[2024-02-26] MEDS: ondansetron HCL 4 MG/2 ML VIAL IVPUSH ×2 (05:01→08:34)
--- NOTE | 2024-02-26 05:48 | PC.NURSE ---
pt is NPO and asking for ice chips, tiger text to Dr. aKm and he said OK to give pt ice chips.
[2024-02-26 07:01] LABS: MANUAL DIFF FLAG NO
[2024-02-26 07:07] LABS: Basophils Absolute Auto 0.1 X10*3/uL (0.0-0.2); Basophils Percent Auto 0.8 % (0-2); Eosinophils Percent Auto 0.2 % (0-4); Hematocrit 29.8 % (37.0-47.0); Hemoglobin 10.6 g/dl (12.0-16.0); Imm Gran Abs Auto 0.03 X10*3/uL (0.00-0.03); Imm Gran Pct Auto 0.5 % (0.0-0.4); Lymphocytes Percent Auto 31.9 % (20-40); Mean Corpuscular HGB Conc 35.6 g/dl (31.0-35.0); Mean Corpuscular Hemoglobin 37.5 pg (27.0-33.0); Mean Corpuscular Volume 105.3 fL (80.0-98.0); Mean Platelet Volume 10.2 fL (9.4-12.3); Monocytes Absolute Auto 0.4 X10*3/uL (0.1-1.2); Monocytes Percent Auto 6.1 % (2-11); Neutrophils Absolute Auto 3.9 x10*3/uL (2.0-8.3); Neutrophils Percent Auto 60.5 % (45-73); Platelet Count 114 X10*3/uL (160-400); Red Blood Count 2.83 X10*6/uL (4.20-5.50); White Blood Count 6.4 X10*3/uL (4.8-10.8)
[2024-02-26 07:54] LABS: Anion Gap 20 (12-20); Blood Urea Nitrogen 4 mg/dL (9-16); Carbon Dioxide 22 mmol/L (22-29); Chloride 100 mmol/L (96-108); Creatinine Clr Calc Pharmacy 86.8; Estimated Glomerular Filt Rate > 60; Glucose Random 123 mg/dL (60-115); Sodium 139 mmol/L (135-145)
[2024-02-26 08:20] LABS: Calcium 7.1 mg/dL (8.4-10.2); Potassium 2.6 mmol/L (3.3-5.1)
[2024-02-26 08:21] LABS: Magnesium 0.9 mg/dL (1.6-2.6)
[2024-02-26] MEDS: cloNIDine HCL 0.1 MG TABLET PO (08:35)
[2024-02-26] MEDS: PHENobarbitaL 30 MG TABLET PO ×2 (08:35→19:13)
[2024-02-26] MEDS: Magnesium Sulfate/H2O 2 GM/50 ML PIGGYBACK IV ×2 (08:39→20:20)
[2024-02-26] MEDS: Pantoprazole Sodium 40 MG/10 ML VIAL IVPUSH ×2 (08:54→16:54)
[2024-02-26] MEDS: Magnesium Oxide 400 MG TABLET 800 MG PO (08:55)
[2024-02-26] MEDS: Potassium Chloride ER 20 MEQ TAB.ER.PRT 40 MEQ PO ×2 (08:55→11:20)
--- NOTE | 2024-02-26 09:10 | PHA.MEDREC ---
Pharmacy Consult ? Medication Reconciliation Pharmacy has completed the medication reconciliation. Spoke with patient in her room. Patient knew all medicaitons.
--- NOTE | 2024-02-26 09:46 | MHC.CM.PN ---
pt lives with and son,she has no services prior to admission she has a ride home dc plan home
[2024-02-26] MEDS: Potassium Chloride/H20 10 MEQ/100 ML PIGGYBACK 100 MEQ IV ×4 (11:21→22:07)
[2024-02-26] MEDS: Dicyclomine HCl 10 MG CAPSULE 20 MG PO (13:18)
[2024-02-26] MEDS: Sucralfate Oral Suspension 1 GM/10 ML ORAL.SUSP PO ×3 (13:18→19:12)
[2024-02-26] MEDS: hydrOXYzine HCL 25 MG TABLET PO (13:18)
[2024-02-26] MEDS: Calcium Gluconate/NaCl,Iso-Osm 1 GM/50 ML PLAST..BAG IV ×3 (15:49→19:13)
--- NOTE | 2024-02-26 16:15 | P.PNIM_ITS ---
Subjective Subjective Date of Service: 02/26/24 Interval History: alcohol withdrawals , multiple electrolyte abnormalities Review of Systems possible b/l hands spasm vs tetany Physical Exam 2 Vital Signs: Vital Signs: Last Vital Signs Temp 97.4 F 02/26/24 15:04 Pulse 82 02/26/24 15:04 Resp 16 02/26/24 15:04 BP 148/85 H 02/26/24 15:04 Pulse Ox 93 02/26/24 15:04 O2 Del Method Room Air 02/26/24 15:04 BMI result Body Mass Index 22.3 Appearance: Alert.? Oriented X3.? not in distress.? cvs: [id number], [id number] , no murmur res: clear to auscultation ,no rhonchii or wheezing abd: no rebound or guarding ,nt, bs present. ext pulses present , no cyanosis, b/l hands spasm ,possible tetany. neuro: axo3 , nonfocal. Objective Data Active Medications Acetaminophen (Acetaminophen 325 Mg Tablet) 650 mg PO Q6H PRN PRN Reason: Pain, Mild (Pain Scale 1-3) Bupropion HCl (Bupropion Hcl Xl 150 Mg Tab.Er.24h) 150 mg PO DAILY [facility]A Clonidine HCl (Clonidine Hcl 0.1 Mg Tablet) 0.1 mg PO TID PRN; Protocol PRN Reason: Anxiety Cyanocobalamin (Cyanocobalamin (Vitamin B-12) 1,000 Mcg Tablet) 1,000 mcg PO DAILY [facility] Dicyclomine HCl (Dicyclomine Hcl 10 Mg Capsule) 20 mg PO TID PRN PRN Reason: Abdominal Pain Last Admin: 02/26/24 13:18 Dose: 20 mg Documented By: PAULINA Escitalopram Oxalate (Escitalopram Oxalate 20 Mg Tablet) 20 mg PO DAILY [facility]A Folic Acid (Folic Acid 1 Mg Tablet) 1 mg PO DAILY [facility] Hydroxyzine HCl (Hydroxyzine Hcl 25 Mg Tablet) 25 mg PO TID PRN PRN Reason: anxiety Last Admin: 02/26/24 13:18 Dose: 25 mg Documented By: PAULINA Thiamine HCl 100 mg/ Sodium (Chloride) 101 mls @ 202 mls/hr IV BEDTIME [facility]A Calcium Gluconate (Calcium Gluconate) 1 gm in 50 mls @ 50 mls/hr IV ONCE ONE Stop: 02/26/24 16:24 Last Admin: 02/26/24 15:49 Dose: 50 mls/hr Documented By: PAULINA Calcium Gluconate (Calcium Gluconate) 1 gm in 50 mls @ 50 mls/hr IV ONCE ONE Stop: 02/26/24 17:29 Losartan Potassium (Losartan Potassium 50 Mg Tablet) 50 mg PO DAILY [facility]; Protocol Magnesium Oxide (Magnesium Oxide 400 Mg Tablet) 800 mg PO DAILY [facility] Last Admin: 02/26/24 08:55 Dose: 800 mg Documented By: PAULINA Melatonin (Melatonin 3 Mg Tablet) 6 mg PO BEDTIME PRN PRN Reason: Insomnia Metoprolol Succinate (Metoprolol Succinate Er 100 Mg Tab.Er.24h) 100 mg PO DAILY [facility]; Protocol Ondansetron HCl (Ondansetron Hcl 4 Mg/2 Ml Vial) 4 mg IVPUSH Q8H PRN PRN Reason: Nausea and Vomiting Last Admin: 02/26/24 05:01 Dose: 4 mg Documented By: YARELI Pantoprazole Sodium (Pantoprazole Sodium 40 Mg/10 Ml Vial) 40 mg IVPUSH BID@0630,1630 [facility] Last Admin: 02/26/24 08:54 Dose: 40 mg Documented By: PAULINA Pharmacy Consult (Consult Rx Etoh Phenob Im/Po) 1 each MISCELLANE ONCE PRN; Protocol PRN Reason: Consult order Phenobarbital (Phenobarbital 30 Mg Tablet) 30 mg PO BID [facility]; Protocol Stop: 02/27/24 21:01 Last Admin: 02/26/24 08:35 Dose: 30 mg Documented By: PAULINA Phenobarbital (Phenobarbital 15 Mg Tablet) 15 mg PO BID [facility]; Protocol Stop: 02/29/24 21:01 Phenobarbital (Phenobarbital 15 Mg Tablet) 15 mg PO DAILY [facility]; Protocol Stop: 03/02/24 09:01 Sodium Chloride (0.9 % Sodium Chloride Flush 3 Ml Syringe) 3 ml IVFLUSH QSHIFT [facility] Last Admin: 02/26/24 07:51 Dose: Not Given Documented By: PAULINA Non-Admin Reason: IV Running Sucralfate (Sucralfate Oral Suspension 1 Gm/10 Ml Oral.Susp) 1 gm PO QID [facility] Last Admin: 02/26/24 13:18 Dose: 1 gm Documented By: PAULINA Trazodone HCl (Trazodone Hcl 100 Mg Tablet) 100 mg PO BEDTIME [facility] Vitamin D (Cholecalciferol (Vitamin D3) 25 Mcg Tablet) 50 mcg PO DAILY [facility] Labs 02/26/24 05:33 02/26/24 05:33 Labs: Laboratory Results - last 24 hr 02/25/24 02/25/24 02/26/24 20:59 23:21 00:13 MCV 103.6 H MCH 37.1 H MCHC 35.8 H RDW 15.2 Plt Count 187 D MPV 9.8 Immature Gran % (Auto) 0.3 Neut % (Auto) 55.0 Lymph % (Auto) 38.7 [place] % (Auto) 4.4 Eos % (Auto) 0.3 Baso % (Auto) 1.3 Lymph # (Auto) 3.1 [place] # (Auto) 0.4 Eos # (Auto) 0.0 Baso # (Auto) 0.1 Abs Immat Gran (auto) 0.02 Absolute Neuts (auto) 4.4 Absolute Nucleated RBC 0.020 H Nucleated RBC % (auto) 0.3 H Anion Gap 28 H Estim Creat Clear Calc 81.5 Estimated GFR > 60 Random Glucose 109 Calcium 9.0 Magnesium 1.0 L* Total Bilirubin 0.7 AST 83 H ALT 35 H Alkaline Phosphatase 169 H Ammonia TNP TNP 41 Total Protein 7.4 Albumin 4.0 Lipase 14 Urine Color Urine Appearance Urine pH Ur Specific [place] Urine Protein Urine Glucose (UA) Urine Ketones Urine Blood Urine Nitrite Ur Leukocyte Esterase Salicylates < 5.0 L Acetaminophen < 3 Ethyl Alcohol 159 02/26/24 02/26/24 03:49 05:33 MCV 105.3 H MCH 37.5 H MCHC 35.6 H RDW 15.0 Plt Count 114 L D MPV 10.2 Immature Gran % (Auto) 0.5 H Neut % (Auto) 60.5 Lymph % (Auto) 31.9 [place] % (Auto) 6.1 Eos % (Auto) 0.2 Baso % (Auto) 0.8 Lymph # (Auto) 2.0 [place] # (Auto) 0.4 Eos # (Auto) 0.0 Baso # (Auto) 0.1 Abs Immat Gran (auto) 0.03 Absolute Neuts (auto) 3.9 Absolute Nucleated RBC 0.000 Nucleated RBC % (auto) 0.0 Anion Gap 20 Estim Creat Clear Calc 86.8 Estimated GFR > 60 Random Glucose 123 H Calcium 7.1 L D Magnesium 0.9 L* Total Bilirubin AST ALT Alkaline Phosphatase Ammonia Total Protein Albumin Lipase Urine Color Yellow Urine Appearance Clear Urine pH 6.5 Ur Specific [place] 1.010 Urine Protein Negative Urine Glucose (UA) Negative Urine Ketones 15 Urine Blood Negative Urine Nitrite Negative Ur Leukocyte Esterase Negative Salicylates Acetaminophen Ethyl Alcohol Assessment and Plan (1) Acute hepatic encephalopathy: Status: Resolved Plan 48-year-old female with pertinent history of alcohol use disorder with history of alcohol withdrawal seizures, mood disorder, tobacco use disorder, marijuana use disorder, history of hepatitis-C status post outpatient treatment, chronic pancreatic insufficiency, gastroesophageal reflux disease, essential hypertension who presents to the emergency department for concerns of alcohol withdrawal and evaluation of nausea and vomiting. Alcohol withdrawal in a patient with alcohol use disorder: Initiated on phenobarb protocol in the ER. Consulting Addiction Team. Continue thiamine and folic acid. Monitor CIWA. Alcoholic ketoacidosis: resolved with fluids . Nausea/vomiting: due to alcoholic gastritis. Supportive care for now. On PPI. ?episode of vomitus with pink tinge, no vanesa blood. basline h/h 10 to 11 range . no bleeding or vomiting so far moniter h/h Possible Tetany: added iv calcium gluconate and po calcium carbonate. Hypomagnesemia due to GI losses: Repleted,added iv and po. Chronic pancreatic insufficiency: Continue enzyme supplementation. Mood disorder: Continue home mood stabilizers. Essential hypertension: On losartan DVT prophylaxis: Lovenox . Full code ongoing hospital stay for alcohol withdrawal, monitoring of electrolytes (as above), which is not possible in a lesser acute setting Quality Stroke Does the patient have a stroke diagnosis?: No VTE Prior VTE?: No VTE Risk Level:: Medical - moderate - high VTE Device Contraindication: Treatment Not Indicated VTE Drug Contraindication: N/A - Med Ordered
[2024-02-26] MEDS: Acetaminophen 325 MG TABLET 650 MG PO (16:54)
[2024-02-26] MEDS: 0.9 % Sodium Chloride Flush 3 ML SYRINGE IVFLUSH ×2 (16:54→19:13)
[2024-02-26] MEDS: Multivitamin TABLET 1 TAB PO (16:54)
[2024-02-26 18:09] LABS: Hematocrit 33.2 % (37.0-47.0); Hemoglobin 11.8 g/dl (12.0-16.0)
[2024-02-26 18:39] LABS: Anion Gap 18 (12-20); Blood Urea Nitrogen < 3 mg/dL (9-16); Calcium 8.7 mg/dL (8.4-10.2); Carbon Dioxide 25 mmol/L (22-29); Chloride 97 mmol/L (96-108); Creatinine Clr Calc Pharmacy 86.8; Estimated Glomerular Filt Rate > 60; Glucose Random 113 mg/dL (60-115); Phosphorus 0.8 mg/dL (2.7-4.5); Potassium 3.4 mmol/L (3.3-5.1); Sodium 137 mmol/L (135-145)
[2024-02-26] MEDS: oxyCODONE HCl Immed Release 5 MG TABLET PO (19:13)
[2024-02-26] MEDS: Sodium,Potassium Phosphates POWD.PACK 1 PACKET PO (19:14)
[2024-02-26 19:35] LABS: Magnesium 1.4 mg/dL (1.6-2.6)
[2024-02-26] MEDS: Thiamine HCL 100 MG in 0.9 % Sodium Chloride 100 ML 202 MG IV (20:20)
[2024-02-26] MEDS: traZODone HCL 100 MG TABLET PO (21:02)
--- NOTE | 2024-02-26 22:47 | PC.NURSE ---
Around 1900 pt's diet was changed from NPO to clear liquids, pt stated that when she spoke to the MD he said she could have crackers too. [place] text sent to Dr. Browning and he said OK to pt having crackers.
[2024-02-26 22:55] LABS: Anion Gap 18 (12-20); Blood Urea Nitrogen < 3 mg/dL (9-16); Calcium 8.8 mg/dL (8.4-10.2); Carbon Dioxide 25 mmol/L (22-29); Chloride 98 mmol/L (96-108); Creatinine Clr Calc Pharmacy 92.7; Estimated Glomerular Filt Rate > 60; Glucose Random 116 mg/dL (60-115); Potassium 3.5 mmol/L (3.3-5.1); Sodium 137 mmol/L (135-145)
[2024-02-27] VITALS (9 sets, daily range): BP systolic 120–177; BP diastolic 58–90; PULSE 78–88; RESP 16–18; TEMP 36–36.4; O2SAT 93–96
[2024-02-27] MEDS: Pantoprazole Sodium 40 MG/10 ML VIAL IVPUSH ×2 (05:39→15:54)
[2024-02-27 06:03] LABS: Anion Gap 15 (12-20); Blood Urea Nitrogen < 3 mg/dL (9-16); Calcium 8.8 mg/dL (8.4-10.2); Carbon Dioxide 28 mmol/L (22-29); Chloride 100 mmol/L (96-108); Creatinine Clr Calc Pharmacy 91.2; Estimated Glomerular Filt Rate > 60; Glucose Random 102 mg/dL (60-115); Sodium 139 mmol/L (135-145)
[2024-02-27 06:09] LABS: Parathyroid Hormone Intact 60.1 pg/mL (8.7-77.1)
[2024-02-27 08:02] LABS: Magnesium 1.5 mg/dL (1.6-2.6); Phosphorus 1.7 mg/dL (2.7-4.5)
[2024-02-27] MEDS: 0.9 % Sodium Chloride Flush 3 ML SYRINGE IVFLUSH ×4 (09:08→23:36)
[2024-02-27] MEDS: Sodium,Potassium Phosphates POWD.PACK 1 PACKET PO ×4 (09:14→20:57)
[2024-02-27] MEDS: Cholecalciferol (Vitamin D3) 25 MCG TABLET 50 MCG PO (09:16)
[2024-02-27] MEDS: Escitalopram Oxalate 20 MG TABLET PO (09:16)
[2024-02-27] MEDS: Folic Acid 1 MG TABLET PO (09:16)
[2024-02-27] MEDS: Cyanocobalamin (Vitamin B-12) 1,000 MCG TABLET 1000 MCG PO (09:16)
[2024-02-27] MEDS: Sucralfate Oral Suspension 1 GM/10 ML ORAL.SUSP PO ×4 (09:17→20:57)
[2024-02-27] MEDS: Magnesium Oxide 400 MG TABLET 800 MG PO (09:17)
[2024-02-27] MEDS: Losartan Potassium 50 MG TABLET PO (09:18)
[2024-02-27] MEDS: cloNIDine HCL 0.1 MG TABLET PO ×2 (09:18→17:55)
[2024-02-27] MEDS: buPROPion HCl XL 150 MG TAB.ER.24H PO (09:18)
[2024-02-27] MEDS: PHENobarbitaL 30 MG TABLET PO ×2 (09:19→20:57)
[2024-02-27] MEDS: Metoprolol Succinate ER 100 MG TAB.ER.24H PO (09:19)
[2024-02-27] MEDS: Multivitamin TABLET 1 TAB PO (09:19)
[2024-02-27] MEDS: Magnesium Sulfate/D5W 1 GM/100 ML PIGGYBACK IV (11:09)
--- NOTE | 2024-02-27 11:49 | MHC.RECOVRN ---
Met with pt to check in and provide support. Pt laying in bed, awake, alert, easily engages in conversation, reports feeling better. Pt reports prior to presentation drinking 7-8 vodka drinks daily. Pt had been to the [facility] in Dec 22, would like to return. Pt reports boyfriend or son will transport. Appt made for 03/03 at 11AM. Pt denies questions or concerns for t/w. Discussed with Heide Paul APRN.
--- NOTE | 2024-02-27 12:36 | P.PNIM_ITS ---
Subjective Subjective Date of Service: 02/27/24 Interval History: hypocalcemia ,alcohol withdrawal Review of Systems Hand spasm seems to be improved, Denies any chest pain shortness on breath or fever or chills. Physical Exam 2 Vital Signs: Vital Signs: Last Vital Signs Temp 96.8 F 02/27/24 12:00 Pulse 81 02/27/24 12:00 Resp 18 02/27/24 12:00 BP 132/73 02/27/24 12:00 Pulse Ox 95 02/27/24 12:00 O2 Del Method Room Air 02/27/24 12:00 BMI result Body Mass Index 22.3 Appearance: Alert.? Oriented X3.? anxious ,weak.? cvs: rrr, [id number] , no murmur res: clear to auscultation ,no rhonchii or wheezing abd: no rebound or guarding ,nt, bs present. ext pulses present , no cyanosis . neuro: axo3 , nonfocal. Objective Data Active Medications Acetaminophen (Acetaminophen 325 Mg Tablet) 650 mg PO Q6H PRN PRN Reason: Pain, Mild (Pain Scale 1-3) Last Admin: 02/26/24 16:54 Dose: 650 mg Documented By: PAULINA Bupropion HCl (Bupropion Hcl Xl 150 Mg Tab.Er.24h) 150 mg PO DAILY [facility] Last Admin: 02/27/24 09:18 Dose: 150 mg Documented By: JUAN A Calcium Carbonate (Calcium Carbonate 500 Mg Tablet) 500 mg PO TID [facility] Last Admin: 02/27/24 09:16 Dose: 500 mg Documented By: JUAN A Clonidine HCl (Clonidine Hcl 0.1 Mg Tablet) 0.1 mg PO TID PRN; Protocol PRN Reason: Anxiety Last Admin: 02/27/24 09:18 Dose: 0.1 mg Documented By: JUAN A Cyanocobalamin (Cyanocobalamin (Vitamin B-12) 1,000 Mcg Tablet) 1,000 mcg PO DAILY [facility] Last Admin: 02/27/24 09:16 Dose: 1,000 mcg Documented By: JUAN A Dicyclomine HCl (Dicyclomine Hcl 10 Mg Capsule) 20 mg PO TID PRN PRN Reason: Abdominal Pain Last Admin: 02/26/24 13:18 Dose: 20 mg Documented By: PAULINA Escitalopram Oxalate (Escitalopram Oxalate 20 Mg Tablet) 20 mg PO DAILY [facility] Last Admin: 02/27/24 09:16 Dose: 20 mg Documented By: JUAN A Folic Acid (Folic Acid 1 Mg Tablet) 1 mg PO DAILY [facility] Last Admin: 02/27/24 09:16 Dose: 1 mg Documented By: JUAN A Hydroxyzine HCl (Hydroxyzine Hcl 25 Mg Tablet) 25 mg PO TID PRN PRN Reason: anxiety Last Admin: 02/26/24 13:18 Dose: 25 mg Documented By: PAULINA Thiamine HCl 100 mg/ Sodium (Chloride) 101 mls @ 202 mls/hr IV BEDTIME [facility] Last Infusion: 02/26/24 21:12 Dose: Infused Documented By: YARELI Losartan Potassium (Losartan Potassium 50 Mg Tablet) 50 mg PO DAILY [facility]; Protocol Last Admin: 02/27/24 09:18 Dose: 50 mg Documented By: JUAN A Magnesium Oxide (Magnesium Oxide 400 Mg Tablet) 800 mg PO DAILY [facility] Last Admin: 02/27/24 09:17 Dose: 800 mg Documented By: JUAN A Melatonin (Melatonin 3 Mg Tablet) 6 mg PO BEDTIME PRN PRN Reason: Insomnia Metoprolol Succinate (Metoprolol Succinate Er 100 Mg Tab.Er.24h) 100 mg PO DAILY [facility]; Protocol Last Admin: 02/27/24 09:19 Dose: 100 mg Documented By: JUAN A Multivitamins/Vitamin C (Multivitamin Tablet) 1 tab PO DAILY [facility] Last Admin: 02/27/24 09:19 Dose: 1 tab Documented By: JUAN A Ondansetron HCl (Ondansetron Hcl 4 Mg/2 Ml Vial) 4 mg IVPUSH Q8H PRN PRN Reason: Nausea and Vomiting Last Admin: 02/26/24 05:01 Dose: 4 mg Documented By: YARELI Pantoprazole Sodium (Pantoprazole Sodium 40 Mg/10 Ml Vial) 40 mg IVPUSH BID@0630,1630 [facility] Last Admin: 02/27/24 05:39 Dose: 40 mg Documented By: YARELI Pharmacy Consult (Consult Rx Etoh Phenob Im/Po) 1 each MISCELLANE ONCE PRN; Protocol PRN Reason: Consult order Phenobarbital (Phenobarbital 30 Mg Tablet) 30 mg PO BID [facility]; Protocol Stop: 02/27/24 21:01 Last Admin: 02/27/24 09:19 Dose: 30 mg Documented By: JUAN A Phenobarbital (Phenobarbital 15 Mg Tablet) 15 mg PO BID [facility]; Protocol Stop: 02/29/24 21:01 Phenobarbital (Phenobarbital 15 Mg Tablet) 15 mg PO DAILY [facility]; Protocol Stop: 03/02/24 09:01 Potassium Phos/Sodium Phos (Sodium,Potassium Phosphates Powd.Pack) 1 packet PO QID [facility] Last Admin: 02/27/24 09:14 Dose: 1 packet Documented By: JUAN A Sodium Chloride (0.9 % Sodium Chloride Flush 3 Ml Syringe) 3 ml IVFLUSH QSHIFT [facility] Last Admin: 02/27/24 09:10 Dose: 3 ml Documented By: PAULINA Sucralfate (Sucralfate Oral Suspension 1 Gm/10 Ml Oral.Susp) 1 gm PO QID [facility] Last Admin: 02/27/24 09:17 Dose: 1 gm Documented By: JUAN A Trazodone HCl (Trazodone Hcl 100 Mg Tablet) 100 mg PO BEDTIME [facility] Last Admin: 02/26/24 21:02 Dose: 100 mg Documented By: YARELI Vitamin D (Cholecalciferol (Vitamin D3) 25 Mcg Tablet) 50 mcg PO DAILY [facility] Last Admin: 02/27/24 09:16 Dose: 50 mcg Documented By: JUAN A Labs 02/26/24 17:40 02/27/24 05:19 Labs: Laboratory Results - last 24 hr 02/26/24 02/26/24 02/27/24 17:40 21:59 05:19 Anion Gap 18 18 15 Estim Creat Clear Calc 86.8 92.7 91.2 Estimated GFR > 60 > 60 > 60 Random Glucose 113 116 H 102 Calcium 8.7 D 8.8 8.8 Phosphorus 0.8 L* 1.7 L Magnesium 1.4 L* 1.5 L PTH Intact 60.1 Assessment and Plan (1) Nausea & vomiting: Status: Acute (2) Hypomagnesemia: Status: Acute (3) Alcohol withdrawal: Status: Acute Plan 48-year-old female with pertinent history of alcohol use disorder with history of alcohol withdrawal seizures, mood disorder, tobacco use disorder, marijuana use disorder, history of hepatitis-C status post outpatient treatment, chronic pancreatic insufficiency, gastroesophageal reflux disease, essential hypertension who presents to the emergency department for concerns of alcohol withdrawal and evaluation of nausea and vomiting. Alcohol withdrawal in a patient with alcohol use disorder: continue phenobarb protocol , Continue thiamine and folic acid. Monitor CIWA. Alcoholic ketoacidosis: resolved with fluids . Nausea/vomiting: due to alcoholic gastritis. Supportive care for now. On PPI. ?episode of vomitus with pink tinge, no vanesa blood. basline h/h 10 to 11 range . no bleeding or vomiting so far Possible Tetany: ? related to renal/gi losses /alcohol use. pth normal vitamin d levels pwnding po calcium carbonate. Hypomagnesemia/hypophos- due to GI losses: Repleted,added iv and po. Chronic pancreatic insufficiency: Continue enzyme supplementation. Mood disorder: Continue home mood stabilizers. Essential hypertension: On losartan DVT prophylaxis: Lovenox . Full code ongoing hospital stay for alcohol withdrawal, monitoring of electrolytes (as above), which is not possible in a lesser acute setting Quality Stroke Does the patient have a stroke diagnosis?: No VTE Prior VTE?: No VTE Risk Level:: Medical - moderate - high VTE Device Contraindication: Treatment Not Indicated VTE Drug Contraindication: N/A - Med Ordered
[2024-02-27] MEDS: hydrOXYzine HCL 25 MG TABLET PO (19:26)
--- NOTE | 2024-02-27 19:55 | PM.CNNEP ---
History of Present Illness Reason for Consult Consult date: 02/27/24 Reason for consult: Electrolyte abnormalities Chief Complaint Chief complaint: Nausea/Vomiting History of Present Illness Narrative: 48-year-old female with history of alcohol use disorder with history of alcohol withdrawal seizures, chronic pancreatic insufficiency, among other morbidities presented to the emergency department for concerns of alcohol withdrawal and evaluation of nausea and vomiting. She has H/O frequent admissions to the hospital with alcohol withdrawal. Her last drink was on the day of presentation. she drinks about 5 nips per day. No fever, chills, chest discomfort, palpitations, shortness of breath, changes in urinary habits. She was also found to have multiple electrolyte abnormalities. She was admitted for further management. Nephrology has been consulted to assist in her care during her current hospital stay Review of Systems Review of Systems Yes all other systems are reviewed and are negative PMFSH Past Medical History Medical History Alcohol use disorder Pancreatic insufficiency Gastroesophageal reflux disease Essential hypertension Mood disorder Cannabis use disorder Hepatitis C Tobacco use disorder Social History Social History Household Members: Children Housing: House Do you presently have visiting nurse or other home services: No Alcohol intake: current Alcohol intake frequency: 3 or more drinks per day Alcohol type: hard liquor Patient Tobacco Use Status: Current everyday Tobacco user Tobacco use type: Cigarette Cigarettes Per Day: 10 e-Cigarette/Vaping Use: Currently Using Second Hand Smoke Exposure: No Substance Use Type: Marijuana Advance Directives Date on File: 12/10/23 service: No Meds Allergies Allergy/AdvReac Type Severity Reaction Status Date / Time No Known Allergies Allergy Verified 02/25/24 20:48 Active Medications: Current Medications Acetaminophen (Acetaminophen 325 Mg Tablet) 650 mg PO Q6H PRN PRN Reason: Pain, Mild (Pain Scale 1-3) Last Admin: 02/26/24 16:54 Dose: 650 mg Bupropion HCl (Bupropion Hcl Xl 150 Mg Tab.Er.24h) 150 mg PO DAILY [facility] Last Admin: 02/27/24 09:18 Dose: 150 mg Calcium Carbonate (Calcium Carbonate 500 Mg Tablet) 500 mg PO TID [facility] Last Admin: 02/27/24 15:54 Dose: 500 mg Clonidine HCl (Clonidine Hcl 0.1 Mg Tablet) 0.1 mg PO TID PRN; Protocol PRN Reason: Anxiety Last Admin: 02/27/24 17:55 Dose: 0.1 mg Cyanocobalamin (Cyanocobalamin (Vitamin B-12) 1,000 Mcg Tablet) 1,000 mcg PO DAILY [facility] Last Admin: 02/27/24 09:16 Dose: 1,000 mcg Dicyclomine HCl (Dicyclomine Hcl 10 Mg Capsule) 20 mg PO TID PRN PRN Reason: Abdominal Pain Last Admin: 02/26/24 13:18 Dose: 20 mg Escitalopram Oxalate (Escitalopram Oxalate 20 Mg Tablet) 20 mg PO DAILY [facility] Last Admin: 02/27/24 09:16 Dose: 20 mg Folic Acid (Folic Acid 1 Mg Tablet) 1 mg PO DAILY [facility] Last Admin: 02/27/24 09:16 Dose: 1 mg Hydroxyzine HCl (Hydroxyzine Hcl 25 Mg Tablet) 25 mg PO TID PRN PRN Reason: anxiety Last Admin: 02/27/24 19:26 Dose: 25 mg Thiamine HCl 100 mg/ Sodium (Chloride) 101 mls @ 202 mls/hr IV BEDTIME [facility] Last Infusion: 02/26/24 21:12 Dose: Infused Losartan Potassium (Losartan Potassium 50 Mg Tablet) 50 mg PO DAILY [facility]; Protocol Last Admin: 02/27/24 09:18 Dose: 50 mg Magnesium Oxide (Magnesium Oxide 400 Mg Tablet) 800 mg PO DAILY [facility] Last Admin: 02/27/24 09:17 Dose: 800 mg Melatonin (Melatonin 3 Mg Tablet) 6 mg PO BEDTIME PRN PRN Reason: Insomnia Metoprolol Succinate (Metoprolol Succinate Er 100 Mg Tab.Er.24h) 100 mg PO DAILY [facility]; Protocol Last Admin: 02/27/24 09:19 Dose: 100 mg Multivitamins/Vitamin C (Multivitamin Tablet) 1 tab PO DAILY [facility] Last Admin: 02/27/24 09:19 Dose: 1 tab Ondansetron HCl (Ondansetron Hcl 4 Mg/2 Ml Vial) 4 mg IVPUSH Q8H PRN PRN Reason: Nausea and Vomiting Last Admin: 02/26/24 05:01 Dose: 4 mg Pantoprazole Sodium (Pantoprazole Sodium 40 Mg/10 Ml Vial) 40 mg IVPUSH BID@0630,1630 [facility] Last Admin: 02/27/24 15:54 Dose: 40 mg Pharmacy Consult (Consult Rx Etoh Phenob Im/Po) 1 each MISCELLANE ONCE PRN; Protocol PRN Reason: Consult order Phenobarbital (Phenobarbital 30 Mg Tablet) 30 mg PO BID [facility]; Protocol Stop: 02/27/24 21:01 Last Admin: 02/27/24 09:19 Dose: 30 mg Phenobarbital (Phenobarbital 15 Mg Tablet) 15 mg PO BID [facility]; Protocol Stop: 02/29/24 21:01 Phenobarbital (Phenobarbital 15 Mg Tablet) 15 mg PO DAILY [facility]; Protocol Stop: 03/02/24 09:01 Potassium Phos/Sodium Phos (Sodium,Potassium Phosphates Powd.Pack) 1 packet PO QID [facility] Last Admin: 02/27/24 16:00 Dose: 1 packet Sodium Chloride (0.9 % Sodium Chloride Flush 3 Ml Syringe) 3 ml IVFLUSH QSHIFT [facility] Last Admin: 02/27/24 15:55 Dose: 3 ml Sucralfate (Sucralfate Oral Suspension 1 Gm/10 Ml Oral.Susp) 1 gm PO QID [facility] Last Admin: 02/27/24 16:00 Dose: 1 gm Trazodone HCl (Trazodone Hcl 100 Mg Tablet) 100 mg PO BEDTIME [facility] Last Admin: 02/26/24 21:02 Dose: 100 mg Vitamin D (Cholecalciferol (Vitamin D3) 25 Mcg Tablet) 50 mcg PO DAILY [facility] Last Admin: 02/27/24 09:16 Dose: 50 mcg Home Medications ?Medication ?Instructions ?Recorded ?Confirmed ?Last Taken ?Type cholecalciferol (vitamin D3) 50 50 mcg PO DAILY 11/01/23 02/26/24 02/25/24 History mcg (2,000 unit) tablet folic acid 1 mg tablet 1 mg PO DAILY 11/01/23 02/26/24 02/25/24 History hydroxyzine HCl 25 mg tablet 25 mg PO TID PRN anxiety 11/01/23 02/26/24 Unknown History losartan 50 mg tablet 50 mg PO DAILY 11/01/23 02/26/24 02/25/24 History magnesium oxide 400 mg (241.3 mg 400 mg PO DAILY 11/01/23 02/26/24 02/25/24 History magnesium) tablet pantoprazole 40 mg tablet,delayed 40 mg PO DAILY@0630 11/01/23 02/26/24 02/25/24 History release thiamine HCl (vitamin B1) 100 mg 100 mg PO DAILY 11/01/23 02/26/24 02/25/24 History tablet trazodone 100 mg tablet 100 mg PO BEDTIME 11/01/23 02/26/24 02/25/24 History clonidine HCl 0.1 mg tablet 0.1 mg PO TID PRN Anxiety 12/10/23 02/26/24 Unknown History metoprolol succinate 25 mg 100 mg PO DAILY 12/10/23 02/26/24 02/25/24 History tablet,extended release 24 hr bupropion HCl 150 mg 24 hr tablet, 150 mg PO DAILY 02/26/24 02/26/24 02/25/24 History extended release citalopram 40 mg tablet 40 mg PO DAILY 02/26/24 02/26/24 02/25/24 History cyanocobalamin (vitamin B-12) 1,000 mcg PO DAILY 02/26/24 02/26/24 02/25/24 History 1,000 mcg tablet dicyclomine 20 mg tablet 20 mg PO TID PRN Abdominal Pain 02/26/24 02/26/24 Unknown History Physical Exam Vital Signs: Last Vital Signs Temp 97 F 02/27/24 18:00 Pulse 78 02/27/24 18:00 Resp 16 02/27/24 18:00 BP 144/80 H 02/27/24 18:00 Pulse Ox 96 02/27/24 18:00 O2 Del Method Room Air 02/27/24 18:00 O2 Flow Rate 3 02/27/24 14:07 BMI result Body Mass Index 22.3 Const General: comfortable and no acute distress Orientation/consciousness: patient oriented x3 HEENT Head: Yes normocephalic Mouth: Normal oral and palatal mucosa present Eyes EOM: EOMs intact bilaterally Neck Neck: Yes supple Resp Auscultation: clear to auscultation bilaterally Cardio Jugular venous distension: no JVD Rate: regular rate GI Palpation (GI): Soft to palpation Auscultation: normal bowel sounds General: Yes no CVA tenderness Back/Spine/Pelvis Back: no CVA tenderness Skin General skin exam: no rashes or lesions noted Neuro General: patient oriented x3 and moves all extremities Extrem General: Yes no pedal edema Results Lab Results 02/26/24 17:40 02/27/24 05:19 Lab results: Chemistry 02/25/24 02/26/24 02/26/24 20:59 05:33 17:40 Sodium 139 139 137 Potassium 3.3 2.6 L* D 3.4 D Carbon Dioxide 19 L 22 25 BUN 9 4 L < 3 L Creatinine 0.66 0.62 0.62 Calcium 9.0 7.1 L D 8.7 D Phosphorus 0.8 L* 02/26/24 02/27/24 21:59 05:19 Sodium 137 139 Potassium 3.5 4.0 Carbon Dioxide 25 28 BUN < 3 L < 3 L Creatinine 0.58 0.59 Calcium 8.8 8.8 Phosphorus 1.7 L Hematology 02/25/24 02/26/24 02/26/24 20:59 05:33 17:40 WBC 7.9 6.4 Hgb 13.5 D 10.6 L D 11.8 L Plt Count 187 D 114 L D Urinalysis 02/26/24 03:49 Urine Color Yellow Urine Appearance Clear Urine pH 6.5 Ur Specific [place] 1.010 Urine Protein Negative Urine Glucose (UA) Negative Urine Ketones 15 Urine Blood Negative Urine Nitrite Negative Ur Leukocyte Esterase Negative Assessment and Plan (1) Hypomagnesemia: Status: Acute (2) Hypophosphatemia: Status: Acute Plan Electrolyte abnormalities likely due to tubular wasting Serum calcium/PTH OK. Phosphorus/ Mg improving Renal functions normal.C/W current management Shall follow up closely in office ( [facility] )after hospital D/C Procedures Date of Service Date of Service: 02/27/24
[2024-02-27] MEDS: Thiamine HCL 100 MG in 0.9 % Sodium Chloride 100 ML 202 MG IV (20:57)
[2024-02-27] MEDS: traZODone HCL 100 MG TABLET PO (20:57)
[2024-02-28] VITALS (11 sets, daily range): BP systolic 137–176; BP diastolic 68–92; PULSE 60–96; RESP 16–20; TEMP 36–36.9; O2SAT 94–96
[2024-02-28] MEDS: 0.9 % Sodium Chloride Flush 3 ML SYRINGE IVFLUSH ×3 (06:30→23:35)
[2024-02-28] MEDS: Pantoprazole Sodium 40 MG/10 ML VIAL IVPUSH ×2 (06:30→17:13)
[2024-02-28 08:50] LABS: Anion Gap 16 (12-20); Blood Urea Nitrogen 3 mg/dL (9-16); Calcium 9.4 mg/dL (8.4-10.2); Carbon Dioxide 26 mmol/L (22-29); Chloride 101 mmol/L (96-108); Creatinine Clr Calc Pharmacy 82.8; Estimated Glomerular Filt Rate > 60; Glucose Random 141 mg/dL (60-115); Sodium 140 mmol/L (135-145)
[2024-02-28] MEDS: PHENobarbitaL 15 MG TABLET PO ×2 (08:55→19:48)
[2024-02-28] MEDS: Sucralfate Oral Suspension 1 GM/10 ML ORAL.SUSP PO ×4 (08:55→19:48)
[2024-02-28] MEDS: buPROPion HCl XL 150 MG TAB.ER.24H PO (08:56)
[2024-02-28] MEDS: Cholecalciferol (Vitamin D3) 25 MCG TABLET 50 MCG PO (08:56)
[2024-02-28] MEDS: Escitalopram Oxalate 20 MG TABLET PO (08:56)
[2024-02-28] MEDS: Magnesium Oxide 400 MG TABLET 800 MG PO (08:56)
[2024-02-28] MEDS: Cyanocobalamin (Vitamin B-12) 1,000 MCG TABLET 1000 MCG PO (08:56)
[2024-02-28] MEDS: Sodium,Potassium Phosphates POWD.PACK 1 PACKET PO ×4 (08:56→19:49)
[2024-02-28] MEDS: Metoprolol Succinate ER 100 MG TAB.ER.24H PO (08:56)
[2024-02-28] MEDS: Folic Acid 1 MG TABLET PO (08:57)
[2024-02-28] MEDS: Multivitamin TABLET 1 TAB PO (08:57)
[2024-02-28] MEDS: Losartan Potassium 50 MG TABLET PO (08:57)
[2024-02-28] MEDS: cloNIDine HCL 0.1 MG TABLET PO ×2 (09:02→17:21)
[2024-02-28 11:05] LABS: Phosphorus 2.7 mg/dL (2.7-4.5)
[2024-02-28 11:07] LABS: Magnesium 1.1 mg/dL (1.6-2.6)
[2024-02-28] MEDS: Potassium Chloride ER 20 MEQ TAB.ER.PRT 40 MEQ PO (11:23)
[2024-02-28] MEDS: Magnesium Sulfate/H2O 2 GM/50 ML PIGGYBACK IV (11:24)
[2024-02-28] MEDS: hydrOXYzine HCL 25 MG TABLET PO ×2 (11:30→19:48)
--- NOTE | 2024-02-28 11:34 | P.PNNP_ITS ---
Subjective Subjective Date of Service: 02/28/24 Interval history: 48-year-old female with history of alcohol use disorder with history of alcohol withdrawal seizures, chronic pancreatic insufficienc Physical Exam 2 Vital Signs: Vital Signs: Last Vital Signs Temp 98.4 F 02/28/24 08:02 Pulse 70 02/28/24 08:56 Resp 18 02/28/24 08:02 BP 154/80 H 02/28/24 09:02 Pulse Ox 96 02/28/24 08:02 O2 Del Method Room Air 02/28/24 08:02 O2 Flow Rate 3 02/27/24 14:07 BMI result Body Mass Index 22.3 Awake. Comfortable. Neck is supple. Mucosa moist. Lungs bilateral scattered rhonchi. Heart S1-S2 heard no gallop. Abdomen soft. Extremities no edema. No involuntary movements. No myoclonus. Const: General: comfortable and no acute distress O rientation/consciousness: patient oriented x3 HEENT: Head: Yes normocephalic Mouth: Normal oral and palatal mucosa present Eyes: EOM: EOMs intact bilaterally Neck: Neck: Yes supple Resp: Auscultation: clear to auscultation bilaterally Cardio: Jugular venous distension: no JVD Rate: regular rate GI: Palpation (GI): Soft to palpation Auscultation: normal bowel sounds : General: Yes no CVA tenderness Back/Spine/Pelvis: Back: no CVA tenderness Skin: General skin exam: no rashes or lesions noted Neuro: General: patient oriented x3 and moves all extremities Extrem: General: Yes no pedal edema Objective Data Labs 02/26/24 17:40 02/28/24 07:52 Labs: Laboratory Results - last 24 hr 02/28/24 07:52 Hold Purple Top SEE NOTE Sodium 140 Potassium 3.0 L D Chloride 101 Carbon Dioxide 26 Anion Gap 16 BUN 3 L Creatinine 0.65 Estim Creat Clear Calc 82.8 Estimated GFR > 60 Random Glucose 141 H Calcium 9.4 D Phosphorus 2.7 Magnesium 1.1 L* Procedures Date of Service Date of Service: 02/28/24 Assessment & Plan Assessment and plan (1) Hypomagnesemia: Status: Acute (2) Hypophosphatemia: Status: Acute Plan Electrolyte abnormalities likely due to tubular wasting Serum calcium/PTH OK. Phosphorus/ Mg improving Renal functions normal.C/W current management Continue replacement as needed. Needs p.o. potassium and magnesium Vitamin-D levels are pending Next abstain from alcohol Shall follow up in office ( [facility] )after hospital D/C Time Spent With Patient Time: Total time managing care of this patient today ____ minutes. Progress Note: Quality Stroke Does the patient have a stroke diagnosis?: No
--- NOTE | 2024-02-28 14:01 | P.PNIM_ITS ---
Subjective Subjective Date of Service: 02/28/24 Interval History: hypokalemia/hypomagnesemia alcohol withdrawal Review of Systems denies new c/o hand spaasm improving Physical Exam 2 Vital Signs: Vital Signs: Last Vital Signs Temp 98.4 F 02/28/24 08:02 Pulse 70 02/28/24 08:56 Resp 18 02/28/24 08:02 BP 154/80 H 02/28/24 09:02 Pulse Ox 96 02/28/24 08:02 O2 Del Method Room Air 02/28/24 08:02 O2 Flow Rate 3 02/27/24 14:07 BMI result Body Mass Index 22.3 Appearance: Alert.? Oriented X3.? anxious ,weak.? cvs: rrr, [id number] , no murmur res: clear to auscultation ,no rhonchii or wheezing abd: no rebound or guarding ,nt, bs present. ext pulses present , no cyanosis . neuro: axo3 , nonfocal. Objective Data Active Medications Acetaminophen (Acetaminophen 325 Mg Tablet) 650 mg PO Q6H PRN PRN Reason: Pain, Mild (Pain Scale 1-3) Last Admin: 02/26/24 16:54 Dose: 650 mg Documented By: PAULINA Bupropion HCl (Bupropion Hcl Xl 150 Mg Tab.Er.24h) 150 mg PO DAILY [facility] Last Admin: 02/28/24 08:56 Dose: 150 mg Documented By: JAROD Calcium Carbonate (Calcium Carbonate 500 Mg Tablet) 500 mg PO TID [facility] Last Admin: 02/28/24 08:57 Dose: 500 mg Documented By: JAROD Clonidine HCl (Clonidine Hcl 0.1 Mg Tablet) 0.1 mg PO TID PRN; Protocol PRN Reason: Anxiety Last Admin: 02/28/24 09:02 Dose: 0.1 mg Documented By: JAROD Cyanocobalamin (Cyanocobalamin (Vitamin B-12) 1,000 Mcg Tablet) 1,000 mcg PO DAILY [facility] Last Admin: 02/28/24 08:56 Dose: 1,000 mcg Documented By: JAROD Dicyclomine HCl (Dicyclomine Hcl 10 Mg Capsule) 20 mg PO TID PRN PRN Reason: Abdominal Pain Last Admin: 02/26/24 13:18 Dose: 20 mg Documented By: PAULINA Escitalopram Oxalate (Escitalopram Oxalate 20 Mg Tablet) 20 mg PO DAILY [facility] Last Admin: 02/28/24 08:56 Dose: 20 mg Documented By: JAROD Folic Acid (Folic Acid 1 Mg Tablet) 1 mg PO DAILY [facility] Last Admin: 02/28/24 08:57 Dose: 1 mg Documented By: JAROD Hydroxyzine HCl (Hydroxyzine Hcl 25 Mg Tablet) 25 mg PO TID PRN PRN Reason: anxiety Last Admin: 02/28/24 11:30 Dose: 25 mg Documented By: JAROD Thiamine HCl 100 mg/ Sodium (Chloride) 101 mls @ 202 mls/hr IV BEDTIME [facility] Last Infusion: 02/27/24 21:27 Dose: Infused Documented By: EVIE Losartan Potassium (Losartan Potassium 50 Mg Tablet) 50 mg PO DAILY [facility]; Protocol Last Admin: 02/28/24 08:57 Dose: 50 mg Documented By: JAROD Magnesium Oxide (Magnesium Oxide 400 Mg Tablet) 800 mg PO DAILY [facility] Last Admin: 02/28/24 08:56 Dose: 800 mg Documented By: JAROD Melatonin (Melatonin 3 Mg Tablet) 6 mg PO BEDTIME PRN PRN Reason: Insomnia Metoprolol Succinate (Metoprolol Succinate Er 100 Mg Tab.Er.24h) 100 mg PO DAILY [facility]; Protocol Last Admin: 02/28/24 08:56 Dose: 100 mg Documented By: JAROD Multivitamins/Vitamin C (Multivitamin Tablet) 1 tab PO DAILY [facility] Last Admin: 02/28/24 08:57 Dose: 1 tab Documented By: JAROD Ondansetron HCl (Ondansetron Hcl 4 Mg/2 Ml Vial) 4 mg IVPUSH Q8H PRN PRN Reason: Nausea and Vomiting Last Admin: 02/26/24 05:01 Dose: 4 mg Documented By: YARELI Pantoprazole Sodium (Pantoprazole Sodium 40 Mg/10 Ml Vial) 40 mg IVPUSH BID@0630,1630 [facility] Last Admin: 02/28/24 06:30 Dose: 40 mg Documented By: JAROD Pharmacy Consult (Consult Rx Etoh Phenob Im/Po) 1 each MISCELLANE ONCE PRN; Protocol PRN Reason: Consult order Phenobarbital (Phenobarbital 15 Mg Tablet) 15 mg PO BID [facility]; Protocol Stop: 02/29/24 21:01 Last Admin: 02/28/24 08:55 Dose: 15 mg Documented By: JAROD Phenobarbital (Phenobarbital 15 Mg Tablet) 15 mg PO DAILY [facility]; Protocol Stop: 03/02/24 09:01 Potassium Phos/Sodium Phos (Sodium,Potassium Phosphates Powd.Pack) 1 packet PO QID [facility] Last Admin: 02/28/24 13:08 Dose: 1 packet Documented By: JAROD Sodium Chloride (0.9 % Sodium Chloride Flush 3 Ml Syringe) 3 ml IVFLUSH QSHIFT [facility] Last Admin: 02/28/24 06:30 Dose: 3 ml Documented By: JAROD Sucralfate (Sucralfate Oral Suspension 1 Gm/10 Ml Oral.Susp) 1 gm PO QID [facility] Last Admin: 02/28/24 13:08 Dose: 1 gm Documented By: JAROD Trazodone HCl (Trazodone Hcl 100 Mg Tablet) 100 mg PO BEDTIME [facility] Last Admin: 02/27/24 20:57 Dose: 100 mg Documented By: EVIE Vitamin D (Cholecalciferol (Vitamin D3) 25 Mcg Tablet) 50 mcg PO DAILY [facility] Last Admin: 02/28/24 08:56 Dose: 50 mcg Documented By: JAROD Labs 02/26/24 17:40 02/28/24 07:52 Labs: Laboratory Results - last 24 hr 02/28/24 07:52 Hold Purple Top SEE NOTE Anion Gap 16 Estim Creat Clear Calc 82.8 Estimated GFR > 60 Random Glucose 141 H Calcium 9.4 D Phosphorus 2.7 Magnesium 1.1 L* Assessment and Plan (1) Nausea & vomiting: Status: Acute (2) Hypomagnesemia: Status: Acute (3) Alcohol withdrawal: Status: Acute Plan 48-year-old female with pertinent history of alcohol use disorder with history of alcohol withdrawal seizures, mood disorder, tobacco use disorder, marijuana use disorder, history of hepatitis-C status post outpatient treatment, chronic pancreatic insufficiency, gastroesophageal reflux disease, essential hypertension who presents to the emergency department for concerns of alcohol withdrawal and evaluation of nausea and vomiting. Alcohol withdrawal in a patient with alcohol use disorder: continue phenobarb protocol , Continue thiamine and folic acid. Monitor CIWA. Alcoholic ketoacidosis: resolved with fluids . Nausea/vomiting: due to alcoholic gastritis. Supportive care for now. On PPI. ?episode of vomitus with pink tinge, no vanesa blood. basline h/h 10 to 11 range . no bleeding or vomiting so far Possible [place]: ? related to renal/gi losses /alcohol use. pth normal vitamin d levels pending po calcium carbonate. hypokalemia : repleted , moniter bmp. Hypomagnesemia/hypophos- due to GI losses: Repleted,added iv and po. Chronic pancreatic insufficiency: Continue enzyme supplementation. Mood disorder: Continue home mood stabilizers. Essential hypertension: On losartan DVT prophylaxis: Lovenox . Full code ongoing hospital stay for alcohol withdrawal, monitoring of electrolytes (as above)-need close electrolytic monitering and replacements , which is not possible in a lesser acute setting Quality Stroke Does the patient have a stroke diagnosis?: No VTE Prior VTE?: No VTE Risk Level:: Medical - moderate - high VTE Device Contraindication: Treatment Not Indicated VTE Drug Contraindication: N/A - Med Ordered
[2024-02-28] MEDS: Thiamine HCL 100 MG TABLET PO (19:48)
[2024-02-28] MEDS: traZODone HCL 100 MG TABLET PO (21:03)
[2024-02-29] VITALS (7 sets, daily range): BP systolic 162–176; BP diastolic 68–97; PULSE 64–92; RESP 16–20; TEMP 36.3; O2SAT 95–99
[2024-02-29] MEDS: Pantoprazole Sodium 40 MG/10 ML VIAL IVPUSH (06:25)
[2024-02-29] MEDS: Sucralfate Oral Suspension 1 GM/10 ML ORAL.SUSP PO ×2 (08:02→13:56)
[2024-02-29] MEDS: Magnesium Sulfate/D5W 1 GM/100 ML PIGGYBACK IV ×2 (08:02→11:27)
[2024-02-29] MEDS: Magnesium Oxide 400 MG TABLET 800 MG PO (08:02)
[2024-02-29] MEDS: PHENobarbitaL 15 MG TABLET PO (08:03)
[2024-02-29] MEDS: Cholecalciferol (Vitamin D3) 25 MCG TABLET 50 MCG PO (08:03)
[2024-02-29] MEDS: Metoprolol Succinate ER 100 MG TAB.ER.24H PO (08:03)
[2024-02-29] MEDS: Escitalopram Oxalate 20 MG TABLET PO (08:03)
[2024-02-29] MEDS: Losartan Potassium 50 MG TABLET PO (08:03)
[2024-02-29] MEDS: Multivitamin TABLET 1 TAB PO (08:04)
[2024-02-29] MEDS: 0.9 % Sodium Chloride Flush 3 ML SYRINGE IVFLUSH (08:04)
[2024-02-29] MEDS: Cyanocobalamin (Vitamin B-12) 1,000 MCG TABLET 1000 MCG PO (08:04)
[2024-02-29] MEDS: Sodium,Potassium Phosphates POWD.PACK 1 PACKET PO ×2 (08:04→13:56)
[2024-02-29] MEDS: amLODIPine Besylate 5 MG TABLET PO (08:04)
[2024-02-29] MEDS: Folic Acid 1 MG TABLET PO (08:04)
[2024-02-29] MEDS: buPROPion HCl XL 150 MG TAB.ER.24H PO (08:04)
[2024-02-29] MEDS: hydrOXYzine HCL 25 MG TABLET PO (08:18)
[2024-02-29] MEDS: Loperamide HCl 2 MG CAPSULE PO (08:18)
[2024-02-29 08:52] LABS: Blood Urea Nitrogen 6 mg/dL (9-16); Calcium 9.6 mg/dL (8.4-10.2); Creatinine Clr Calc Pharmacy 82.8; Estimated Glomerular Filt Rate > 60; Glucose Random 103 mg/dL (60-115)
[2024-02-29 09:08] LABS: Anion Gap 16 (12-20); Carbon Dioxide 30 mmol/L (22-29); Chloride 99 mmol/L (96-108); Potassium 4.1 mmol/L (3.3-5.1); Sodium 141 mmol/L (135-145)
[2024-02-29 10:19] LABS: Magnesium 1.2 mg/dL (1.6-2.6)
--- NOTE | 2024-02-29 10:36 | MHC.CM.PN ---
pt dcd home self care
[2024-02-29 11:03] LABS: Magnesium 1.5 mg/dL (1.6-2.6)
[2024-02-29] MEDS: cloNIDine HCL 0.1 MG TABLET PO (11:41)
--- NOTE | 2024-02-29 13:32 | PM.DS ---
DS: Providers Provider Date of Service: 02/29/24 Date of admission: 02/25/24 22:52 Date of discharge: 02/29/24 Primary care physician: Ayala Patton MD Consults: 02/25/24 22:53 Addiction Medicine Routine Consulting Provider: Addiction Covering Reason for consultation: alcohol use disorder 02/26/24 18:40 Consult to Nephrology Routine Consulting Provider: [facility] [place] [facility] Reason for consultation: hypocalcemia , tetany, multiple electrolytic abnormalities Has provider been notified: Yes Attending physician on discharge: Luis Carlos Browning Discharging clinician: Luis Carlos Browning DS: Diagnosis Discharge Diagnosis (1) Nausea & vomiting: Status: Acute (2) Hypomagnesemia: Status: Acute (3) Alcohol withdrawal: Status: Acute DS: Summary Hospital Course Hospital Course: 48-year-old female with pertinent history of alcohol use disorder with history of alcohol withdrawal seizures, mood disorder, tobacco use disorder, marijuana use disorder, history of hepatitis-C status post outpatient treatment, chronic pancreatic insufficiency, gastroesophageal reflux disease, essential hypertension who presents to the emergency department for concerns of alcohol withdrawal and evaluation of nausea and vomiting. Frequent admissions to the hospital with alcohol withdrawal. Her last drink was on the day of presentation. Patient has been having multiple episodes of nausea and vomiting. Her last episode of vomiting was with pink tinge, no vanesa blood. No abdominal discomfort or change in bowel habits. Patient states she drinks about 5 nips per day. No fever, chills, chest discomfort, palpitations, shortness of breath, changes in urinary habits. In the emergency department, patient was found to have low magnesium. hopsital course: alcohol withdrawals -treated with pheonbarbital,strongly advised to abstain from alcohol. Multiple electrolytic abnormalities possible related to alcohol use and decreased p.o. intake:hypokalemia ,hypophostemia ,hypomagnesemia ,hypocalcemia : repleted iv and po - seems to be improved ,still has mild hypomagnesemia . patient has mild tetany episode due to likely hypocalcemia workup -pth seems fine,vitamin D levels pending patient will go home with po calcium, potassium ,magnesium .since po intake improving and patient saying she will quit alcohol ,electrolytic abnormalities are expected to improve. moniter bmp ,magnesium levels outpatient. Htn: added amlodipine 5 mg daily in addition to atenolol. Further management outpatient with PCP, follow-up with Nephrology outpatient. plan continue calcium carbonate (oscald ) 500 mg daily ,vitamin d levels pendinf also potassium po 10 meq daily for 7 days ,magnesium 400 mg po bid . moniter bmp outpatient follow up with pcp and nephrology outpatient Above management discussed with the patient in detail length she understand and in agreement with the above plan, time spent 40 minutes and 50% time spent on counseling. Time Attestation Total time managing care of this patient today: 40 mintues. Discharge Coordination Time (in mins): 40 min Quality: Safe Use of Opioids Does Pt have an Active Cancer Diagnosis on the Problem List?: No Quality: Stroke Does the patient have a stroke diagnosis?: No Physical Exam Vital Signs: Vital Signs: Last Vital Signs Temp 97.4 F 02/29/24 10:37 Pulse 92 02/29/24 10:37 Resp 18 02/29/24 10:37 BP 172/97 H 02/29/24 11:41 Pulse Ox 98 02/29/24 10:37 O2 Del Method Room Air 02/29/24 10:37 O2 Flow Rate 3 02/27/24 14:07 BMI result Body Mass Index 22.3 Appearance: Alert.? Oriented X3.? anxious ,weak.? cvs: rrr, [id number] , no murmur res: clear to auscultation ,no rhonchii or wheezing abd: no rebound or guarding ,nt, bs present. ext pulses present , no cyanosis . neuro: axo3 , nonfocal. DS: Data Data Completed and Pending Completed studies during hospitalization [Text1]: Procedures Detoxification Services for Substance Abuse Treatment (12/10/23) Labs on day of discharge: Laboratory Results - last 24 hr 02/29/24 02/29/24 02/29/24 07:41 07:44 10:27 Hold Purple Top SEE NOTE Sodium 141 Potassium 4.1 D Chloride 99 Carbon Dioxide 30 H Anion Gap 16 BUN 6 L Creatinine 0.65 Estim Creat Clear Calc 82.8 Estimated GFR > 60 Random Glucose 103 Calcium 9.6 Magnesium 1.2 L* 1.5 L Discharge Plan Discharge Anticipated Discharge Date/Time: 02/29/24 13:13 Patient Disposition: Home, Self-Care Discharge Diagnosis: multiple electrolytic abnormalities Referrals: Rudy Garcia MD [Physician] - 1 Week Ayala Patton MD [Primary Care Provider] - 1 Week Discharge Medications: New potassium chloride 10 mEq capsule, extended release 10 meq PO DAILY Qty: 7 0RF thiamine mononitrate (vit B1) 100 mg Tablet 100 mg PO BEDTIME Qty: 30 0RF calcium carbonate [Oyster Shell Calcium 500] 500 mg calcium (1,250 mg) Tablet 500 mg PO DAILY Qty: 30 0RF amlodipine 5 mg Tablet 5 mg PO DAILY Qty: 30 0RF Protocol: Hold for SBP< HOLD for SBP < : 90 Continued losartan 50 mg tablet 50 mg PO DAILY thiamine HCl (vitamin B1) 100 mg tablet 100 mg PO DAILY trazodone 100 mg tablet 100 mg PO BEDTIME pantoprazole 40 mg tablet,delayed release (DR/EC) 40 mg PO DAILY@0630 folic acid 1 mg tablet 1 mg PO DAILY hydroxyzine HCl 25 mg tablet 25 mg PO TID PRN (Reason: anxiety) cholecalciferol (vitamin D3) 50 mcg (2,000 unit) tablet 50 mcg PO DAILY metoprolol succinate 25 mg tablet extended release 24 hr 100 mg PO DAILY clonidine HCl 0.1 mg tablet 0.1 mg PO TID PRN (Reason: Anxiety) citalopram 40 mg tablet 40 mg PO DAILY cyanocobalamin (vitamin B-12) 1,000 mcg tablet 1,000 mcg PO DAILY bupropion HCl 150 mg tablet extended release 24 hr 150 mg PO DAILY dicyclomine 20 mg tablet 20 mg PO TID PRN (Reason: Abdominal Pain) sucralfate 100 mg/mL suspension 10 ml PO QID Qty: 1000 0RF Rx Instructions: swish in mouth and swallow; use after food/drink ondansetron 4 mg tablet,disintegrating 4 mg PO Q8H PRN (Reason: nausea and vomiting) Qty: 30 0RF Changed magnesium oxide 400 mg (241.3 mg magnesium) tablet 400 mg PO BID Qty: 60 0RF Discharge Orders: Discharge Order (Routine); Ordered 02/29/24 Ordered By: Luis Carlos Browning Diet: Advance to usual diet Activity on Discharge: As tolerated Stand Alone Forms: Patient Portal Discharge page Print Language: Kyrgyz Other Ambulatory Orders: Basic Metabolic Panel (Routine) Timeframe: 1 Week Facility: [facility] - Location: Laboratory Ordered By: Luis Carlos Brownnig Magnesium (Routine) Timeframe: 1 Week Facility: [facility] - Location: Laboratory Ordered By: Luis Carlos Browning Phosphorus (Routine) Timeframe: 1 Week Facility: [facility] - Location: Laboratory Ordered By: Luis Carlos Browning Care Plan Goals: alcohol withdrawals -treated with pheonbarbital,strongly advised to abstain from alcohol. Multiple electrolytic abnormalities:hypokalemia ,hypophostemia ,hypomagnesemia ,hypocalcemia : repleted iv and po - seems to be improved ,still has mild hypomagnesemia . hypocalcemia workup -pth seems fine,vitamin D levels pending patient will go home with po calcium, potassium ,magnesium .since po intake improving and patient saying she will quit alcohol ,electrolytic abnormalities are expected to improve. moniter bmp ,magnesium levels outpatient. Htn: added amlodipine 5 mg daily in addition to atenolol. Further management outpatient with PCP, follow-up with Nephrology outpatient. Health Concerns: as above. Plan of Treatment: as above. Assessment: as above.
[2024-03-01 13:04] LABS: VITAMIN D (1,25 OH) D3 107 pg/mL; Vit D (1,25-Dihydroxy) Total 107 pg/mL (18-72); Vitamin D (1,25 OH) D2 <8 pg/mL
== END 2024-02-29 14:20 | disposition home or self-care (01) | DRG 241 ==
LOC: HO.ED 22:55 → HO.EDOVER 23:01 → HO.S3 23:50
PROVIDERS: Physician Assistant; Admitting Provider Student in an Organized Health Care Education/Training Program; Emergency Provider Emergency Medicine; PCP Internal Medicine; Visit Provider Internal Medicine
DX: K29.20 Alcoholic gastritis without bleeding (principal); E87.29 Other acidosis; E83.39 Other disorders of phosphorus metabolism; F17.210 Nicotine dependence, cigarettes, uncomplicated; F10.939 Alcohol use, unspecified with withdrawal, unspecified; Y90.6 Blood alcohol level of 120-199 mg/100 ml; I10 Essential (primary) hypertension; Z86.19 Personal history of other infectious and parasitic diseases; E83.42 Hypomagnesemia; F39 Unspecified mood [affective] disorder; K86.89 Other specified diseases of pancreas; Z71.6 Tobacco abuse counseling; Z79.899 Other long term (current) drug therapy
CPT/HCPCS: 36415; 80048; 80053; 80143; 80179; 80307; 81003; 82140; 82652; 83690; 83735; 83970; 84100; 85014; 85018; 85025; 93005; 99285; C9113; J0613; J2060; J2405; J2560; J3411; J3475; J3480

== ENCOUNTER → 2024-02-25 22:47 | Outpatient (BNV) | payer OTHER, SELFPAY | PROVIDERS: Admitting Provider Student in an Organized Health Care Education/Training Program; Emergency Provider Emergency Medicine; PCP Internal Medicine; Visit Provider Internal Medicine | DX: R00.0 Tachycardia, unspecified (principal) | CPT/HCPCS: 93010 ==

== ENCOUNTER → 2024-02-25 22:52 | Outpatient (BNV) | payer OTHER, SELFPAY | PROVIDERS: Admitting Provider Student in an Organized Health Care Education/Training Program; Emergency Provider Emergency Medicine; PCP Internal Medicine; Visit Provider Internal Medicine Nephrology | DX: E83.42 Hypomagnesemia (principal); E83.39 Other disorders of phosphorus metabolism; E87.29 Other acidosis; F10.930 Alcohol use, unspecified with withdrawal, uncomplicated | CPT/HCPCS: 99222; 99232 ==

== ENCOUNTER → 2024-02-25 22:52 | Outpatient (BNV) | payer OTHER, SELFPAY | PROVIDERS: Admitting Provider Student in an Organized Health Care Education/Training Program; Emergency Provider Emergency Medicine; PCP Internal Medicine; Visit Provider Student in an Organized Health Care Education/Training Program | DX: R11.2 Nausea with vomiting, unspecified (principal); E83.42 Hypomagnesemia; F10.930 Alcohol use, unspecified with withdrawal, uncomplicated | CPT/HCPCS: 99223; 99231; 99232; 99239 ==

== ENCOUNTER 2024-04-02 10:08 | Outpatient (AMB) | payer OTHER, SELFPAY ==
--- NOTE | 2024-03-31 09:39 | HO.NEPHOV_ITS ---
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 Allergies No Known Allergies Allergy (Verified 02/25/24 20:48) [facility] Medical History Alcohol use disorder Pancreatic insufficiency Gastroesophageal reflux disease Essential hypertension Mood disorder Cannabis use disorder Hepatitis C Tobacco use disorder Social History Household Members: Children Housing: House Do you presently have visiting nurse or other home services: No Alcohol intake: current Alcohol intake frequency: 3 or more drinks per day Alcohol type: hard liquor Patient Tobacco Use Status: Current everyday Tobacco user Tobacco use type: Cigarette Cigarettes Per Day: 10 e-Cigarette/Vaping Use: Currently Using Second Hand Smoke Exposure: No Substance Use Type: Marijuana Advance Directives Date on File: 12/10/23 service: No Results Reviewed Nephrology Results: Hgb 11.8 g/dl (12.0-16.0) L 02/26/24 WBC 6.4 X10*3/uL (4.8-10.8) 02/26/24 Plt Count 114 X10*3/uL (160-400) L 02/26/24 Sodium 141 mmol/L (135-145) 02/29/24 Potassium 4.1 mmol/L (3.3-5.1) 02/29/24 Chloride 99 mmol/L (96-108) 02/29/24 Carbon Dioxide 30 mmol/L (22-29) H 02/29/24 BUN 6 mg/dL (9-16) L 02/29/24 Creatinine 0.65 mg/dL (0.5-1.4) 02/29/24 Calcium 9.6 mg/dL (8.4-10.2) 02/29/24 Phosphorus 2.7 mg/dL (2.7-4.5) 02/28/24 PTH Intact 60.1 pg/mL (8.7-77.1) 02/27/24 Urine Protein Negative mg/dL (Neg-Trace) 02/26/24 Coding
[2024-04-02 10:11] VITALS: BP 104/74; PULSE 68; O2SAT 97; BMI 22.5
--- NOTE | 2024-04-02 10:11 | HO.NEPHOV ---
Vital Signs 04/02/24 10:11 Height 5 ft 2 in Weight 123 lb BMI 22.5 BP 104/74 Blood Pressure Location Lt brachial Position Sitting Pulse 68 Pulse Source Pulse Oximeter Pulse Oximetry (%) 97 Oxygen Delivery Method Room Air 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 [facility] Confirmed Medication Administration Professional Required: No Accompanied by: Self / Same As Patient Allergies No Known Allergies Allergy (Verified 04/02/24 10:12) Medication List - Last Reconciled 04/02/24 by Rudy Garcia MD bupropion HCl XL 150 mg PO DAILY calcium carbonate (Oyster Shell Calcium 500) 500 mg PO DAILY cholecalciferol (vitamin D3) 50 mcg PO DAILY citalopram 40 mg PO DAILY clonidine HCl 0.1 mg PO TID PRN cyanocobalamin (vitamin B-12) 1,000 mcg PO DAILY folic acid 1 mg PO DAILY hydroxyzine HCl 25 mg PO TID PRN losartan 50 mg PO DAILY magnesium oxide 400 mg PO BID metoprolol succinate ER 100 mg PO DAILY ondansetron 4 mg PO Q8H PRN pantoprazole 40 mg PO DAILY@0630 potassium chloride ER 10 mEq PO DAILY sucralfate 10 mL PO QID thiamine mononitrate (vit B1) 100 mg PO BEDTIME trazodone 100 mg PO BEDTIME HPI Comments Details: 48-year-old woman with history of alcohol use disorder with history of alcohol withdrawal seizures, chronic pancreatic insufficiency, among other morbidities presented to the emergency department for concerns of alcohol withdrawal and evaluation of nausea and vomiting. Nephrology was consulted for med will electrolyte abnormalities. At the time of discharge calcium, magnesium, phosphorus were replenished and they were close to normal range. She under went to rehab for 3 days. While in the hospital blood pressure is suboptimal. Amlodipine was added to this regimen. Prior to this she was on losartan and metoprolol. She is here for further follow-up regarding electrolyte abnormalities. Currently she is drinking 6 nips of vodka a day. She used to drink up to 12 nips in the past. [facility] Medical History Alcohol use disorder Pancreatic insufficiency Gastroesophageal reflux disease Essential hypertension Mood disorder Cannabis use disorder Hepatitis C Tobacco use disorder Social History Household Members: Children Housing: House Do you presently have visiting nurse or other home services: No Alcohol intake: current Alcohol intake frequency: 3 or more drinks per day Alcohol type: hard liquor Patient Tobacco Use Status: Current everyday Tobacco user Tobacco use type: Cigarette Cigarettes Per Day: 10 e-Cigarette/Vaping Use: Currently Using Second Hand Smoke Exposure: No Substance Use Type: Marijuana Advance Directives Date on File: 12/10/23 service: No Physical Exam Vital Signs: Last Vital Signs Pulse 68 04/02/24 10:11 BP 104/74 04/02/24 10:11 Pulse Ox 97 04/02/24 10:11 Oxygen Delivery Method Room Air 04/02/24 10:11 BMI result Body Mass Index 22.5 Last Vital Signs Temp 97.4 F 02/29/24 10:37 Pulse 92 02/29/24 10:37 Resp 18 02/29/24 10:37 BP 172/97 H 02/29/24 11:41 Pulse Ox 98 02/29/24 10:37 O2 Del Method Room Air 02/29/24 10:37 O2 Flow Rate 3 02/27/24 14:07 BMI result Body Mass Index 22.3 Appearance: Alert.? Oriented X3.? anxious ,weak.? cvs: rrr, [id number] , no murmur res: clear to auscultation ,no rhonchii or wheezing abd: no rebound or guarding ,nt, bs present. ext pulses present , no cyanosis . neuro: axo3 , nonfocal. Results Reviewed Nephrology Results: Hgb 11.8 g/dl (12.0-16.0) L 02/26/24 WBC 6.4 X10*3/uL (4.8-10.8) 02/26/24 Plt Count 114 X10*3/uL (160-400) L 02/26/24 Sodium 141 mmol/L (135-145) 02/29/24 Potassium 4.1 mmol/L (3.3-5.1) 02/29/24 Chloride 99 mmol/L (96-108) 02/29/24 Carbon Dioxide 30 mmol/L (22-29) H 02/29/24 BUN 6 mg/dL (9-16) L 02/29/24 Creatinine 0.65 mg/dL (0.5-1.4) 02/29/24 Calcium 9.6 mg/dL (8.4-10.2) 02/29/24 Phosphorus 2.7 mg/dL (2.7-4.5) 02/28/24 PTH Intact 60.1 pg/mL (8.7-77.1) 02/27/24 Urine Protein Negative mg/dL (Neg-Trace) 02/26/24 Assessment & Plan Assessment & Plan (1) Hypophosphatemia: Code(s): E83.39 - Other disorders of phosphorus metabolism Category: Medical (2) Hypomagnesemia: Code(s): E83.42 - Hypomagnesemia Category: Medical (3) HTN (hypertension): Code(s): I10 - Essential (primary) hypertension Category: Medical Plan .. 48-year-old woman with hypertension and significant electrolyte imbalance in the setting of alcohol abuse. Hypertension Blood pressure rather low today. I will discontinue amlodipine Keep her on same dose of losartan metoprolol and monitor blood pressure at home. Hypophosphatemia, hypo calcemia, hypokalemia. She will recheck all these levels today. She is currently on supplementation. The supplementation can be adjusted based on the lab values. I have encouraged her to abstain from alcohol. Orders: Orders Comprehensive Met. Panel Today E83.39 - Other disorders of phosphorus metabolism, E83.42 - Hypomagnesemia, N18.9 - Chronic kidney disease, unspecified Complete Blood Count Auto Diff Today E83.39 - Other disorders of phosphorus metabolism, E83.42 - Hypomagnesemia, N18.30 - Chronic kidney disease, stage 3 unspecified IRON PROFILE Today E83.39 - Other disorders of phosphorus metabolism, E83.42 - Hypomagnesemia, N18.5 - Chronic kidney disease, stage 5 Vitamin B12 and Folate Today E83.39 - Other disorders of phosphorus metabolism, E83.42 - Hypomagnesemia Vitamin D 25-OH (D2 and D3) Today E83.39 - Other disorders of phosphorus metabolism, E83.42 - Hypomagnesemia Magnesium Today E83.39 - Other disorders of phosphorus metabolism, E83.42 - Hypomagnesemia Phosphorus Today E83.39 - Other disorders of phosphorus metabolism, E83.42 - Hypomagnesemia Medications: Discontinued amlodipine Discontinued Reason: Doctor's Order 5 mg See Protocol PO DAILY 30 tabs 0RF Coding Level of Care Code Est Pt Level 4 (87675) Diagnoses Hypophosphatemia E83.39 Hypomagnesemia E83.42 HTN (hypertension) I10
== END 2024-04-02 10:25 | disposition home or self-care (01) ==
PROVIDERS: PCP Internal Medicine; Visit Provider Internal Medicine Hypertension Specialist
DX: E83.39 Other disorders of phosphorus metabolism (principal); E83.42 Hypomagnesemia; I10 Essential (primary) hypertension
CPT/HCPCS: 99214

== ENCOUNTER → 2024-04-02 10:08 | Outpatient (BNVA) | payer OTHER, SELFPAY | PROVIDERS: PCP Internal Medicine; Visit Provider Internal Medicine Hypertension Specialist | DX: E83.39 Other disorders of phosphorus metabolism (principal); E83.42 Hypomagnesemia; I10 Essential (primary) hypertension | CPT/HCPCS: 99212 ==

== ENCOUNTER 2024-04-02 10:36 | Outpatient (REF) | payer OTHER, SELFPAY ==
[2024-04-02 18:43] LABS: MANUAL DIFF FLAG NO
[2024-04-02 18:49] LABS: Basophils Absolute Auto 0.1 X10*3/uL (0.0-0.2); Basophils Percent Auto 0.9 % (0-2); Eosinophils Absolute Auto 0.2 X10*3/uL (0.0-0.4); Eosinophils Percent Auto 2.1 % (0-4); Hematocrit 34.9 % (37.0-47.0); Hemoglobin 11.7 g/dl (12.0-16.0); Imm Gran Abs Auto 0.02 X10*3/uL (0.00-0.03); Imm Gran Pct Auto 0.3 % (0.0-0.4); Lymphocytes Absolute Auto 2.7 X10*3/uL (1.2-4.9); Mean Corpuscular HGB Conc 33.5 g/dl (31.0-35.0); Mean Corpuscular Hemoglobin 34.5 pg (27.0-33.0); Mean Corpuscular Volume 102.9 fL (80.0-98.0); Mean Platelet Volume 10.6 fL (9.4-12.3); Monocytes Absolute Auto 0.6 X10*3/uL (0.1-1.2); Monocytes Percent Auto 7.6 % (2-11); Neutrophils Absolute Auto 4.3 x10*3/uL (2.0-8.3); Neutrophils Percent Auto 55.1 % (45-73); Platelet Count 225 X10*3/uL (160-400); Red Blood Count 3.39 X10*6/uL (4.20-5.50); Red Cell Distribution Width 14.7 % (11.0-16.0); White Blood Count 7.8 X10*3/uL (4.8-10.8)
[2024-04-02 19:04] LABS: Alanine Aminotransferase 56 U/L (0-31); Alkaline Phosphatase 119 U/L (39-117); Anion Gap 15 (12-20); Aspartate Amino Transferase 41 U/L (5-31); Bilirubin Total 0.3 mg/dL (0.0-1.0); Blood Urea Nitrogen 18 mg/dL (9-16); Calcium 9.2 mg/dL (8.4-10.2); Carbon Dioxide 26 mmol/L (22-29); Chloride 106 mmol/L (96-108); Estimated Glomerular Filt Rate > 60; Glucose Random 84 mg/dL (60-115); Iron 149 mcg/dL (30-160); Magnesium 1.5 mg/dL (1.6-2.6); Percent Iron Saturation 45 % (15-50); Phosphorus 4.7 mg/dL (2.7-4.5); Potassium 3.9 mmol/L (3.3-5.1); Sodium 143 mmol/L (135-145); Total Iron Binding Capacity 333 mcg/dL (228-428); Total Protein 6.7 g/dL (6.5-8.0); Unsaturated Iron Binding 184 ug/dL
[2024-04-02 19:30] LABS: Folate 13.1 ng/mL (> or = 4.0); Vitamin B12 416 pg/mL (200-900)
[2024-04-06 17:10] LABS: Vitamin D 25-OH, D2 <4 ng/mL; Vitamin D 25-OH, D3 51 ng/mL; Vitamin D 25-OH, Total 51 ng/mL (30-100)
== END 2024-04-02 10:37 | disposition home or self-care (01) ==
LOC: HO.HKASLDS 10:36
PROVIDERS: Visit Provider Internal Medicine Hypertension Specialist
DX: N18.30 Chronic kidney disease, stage 3 unspecified (principal); E83.39 Other disorders of phosphorus metabolism; E83.42 Hypomagnesemia; N18.9 Chronic kidney disease, unspecified; N18.5 Chronic kidney disease, stage 5
CPT/HCPCS: 36415; 80053; 82306; 82607; 82746; 83540; 83735; 84100; 85025

== ENCOUNTER 2024-05-05 13:01 | Inpatient (IN) | payer OTHER, SELFPAY ==
--- NOTE | ~2024-05-05 | US_ITS ---
EXAMINATION: US ABDOMEN LIMITED CLINICAL INFORMATION: Right upper quadrant pain, pancreatitis, question biliary disease. COMPARISON: Same day CT TECHNIQUE: Real-time imaging of the right upper quadrant abdominal viscera. FINDINGS: PANCREAS: Pancreatic body appears enlarged and pancreatic duct is prominent at 3 mm. LIVER: Liver is enlarged, right lobe measures 16.8 cm, left, 13.7 cm. Diffuse increased echogenicity to the hepatic parenchyma. Liver surface appears smooth. No focal hepatic lesion. There is no intrahepatic biliary duct dilatation seen. GALLBLADDER: Normal. The gallbladder is physiologically distended without evidence of stones, sludge, polyps, wall thickening or pericholecystic fluid. No tenderness elicited. COMMON BILE DUCT: Normal in caliber measuring between 5 and 7 mm in diameter. RIGHT KIDNEY: Normal. No hydronephrosis. No renal calculi. 1 cm upper pole renal cyst. The kidney measures 10.7 cm in maximum dimension. FREE FLUID: None. US/US abdomen limited IMPRESSION: Enlarged pancreatic body with visualization of 3 mm pancreatic duct. Together with CT findings, suspect pancreatitis. Enlarged fatty liver.
--- NOTE | ~2024-05-05 | CT_ITS ---
EXAMINATION: CT ABDOMEN AND PELVIS WITH CONTRAST CLINICAL INFORMATION: Pancreatitis COMPARISON: 11/01/2023 TECHNIQUE: Multidetector volumetric images were obtained from the superior aspect of the liver through the pubic symphysis following administration 85 mL of Omnipaque 350 intravenous contrast. Sagittal and coronal reformatted images were obtained on the technologist's workstation. Oral contrast: No This CT examination was performed using dose optimization techniques as appropriate, variously including the following: *Automated exposure control *Adjustment of mA and/or kV according to patient size (this includes techniques or standardized protocols for targeted exams where dose is matched to indication/reason for exam; i.e. extremities or head) *Use of iterative reconstruction technique DLP: 414 mGy-cm FINDINGS: INTERNAL SALESPERSON: Unremarkable. LUNG BASES: The visualized lung bases are unremarkable. LIVER, GALLBLADDER, AND BILIARY TREE: The liver is normal in size, shape, and attenuation. Multiple hepatic hypodensities, not seen previously largest in the range of 6 mm. No biliary ductal dilatation is present. The gallbladder wall is mildly thickened but no surrounding inflammatory changes or gallstones. PANCREAS: Mild stranding about the pancreatic head. SPLEEN: Unremarkable. Splenule. ADRENAL GLANDS: Unremarkable. KIDNEYS AND URETERS: The kidneys are normal in size, shape, and attenuation. No hydronephrosis, hydroureter, or calculi seen. No perinephric stranding. BLADDER: Distended but otherwise unremarkable. GASTROINTESTINAL TRACT: Stomach is not ideally distended with questionable thickened folds in the fundus and body. Mild duodenal wall thickening also questioned. Nonobstructive bowel pattern. Terminal ileum is thickened in appearance. Unremarkable appendix. Cecum is under distended likely accounting for wall thickening. Diverticulosis with stranding about the descending colon. Decompressed sigmoid and rectosigmoid likely accounting for wall thickening. ABDOMINAL WALL: No significant hernia is appreciated. LYMPH NODES: Normal. VASCULAR: Atherosclerotic calcifications nonaneurysmal aorta. Normal caliber inferior vena cava. Portal system. PELVIC VISCERA: IUD. OSSEOUS STRUCTURES: No suspicious osseous lesions. Degenerative changes. CT/CT abdomen pelvis w IV con IMPRESSION: CT findings suspicious for descending colonic diverticulitis. Mild peripancreatic head stranding could represent mild pancreatitis, correlate with laboratory values. Adjacent duodenal wall thickening may be reactive. Gastric wall thickening, possibly reactive, gastritis not excluded. Mild gallbladder wall thickening without other signs of acute cholecystitis. Interval appearing hepatic hypodensities. Consider ultrasound. Fleischner guidelines were followed.
[2024-05-05 13:47] VITALS: BP 129/81; PULSE 87; RESP 18; TEMP 36.9; O2SAT 96; BMI 22.5
[2024-05-05 14:03] LABS: MANUAL DIFF FLAG NO
[2024-05-05 14:25] LABS: Basophils Absolute Auto 0.1 X10*3/uL (0.0-0.2); Basophils Percent Auto 1.4 % (0-2); Eosinophils Absolute Auto 0.1 X10*3/uL (0.0-0.4); Eosinophils Percent Auto 1.4 % (0-4); Hematocrit 32.4 % (37.0-47.0); Imm Gran Abs Auto 0.04 X10*3/uL (0.00-0.03); Imm Gran Pct Auto 0.8 % (0.0-0.4); Lymphocytes Absolute Auto 2.3 X10*3/uL (1.2-4.9); Lymphocytes Percent Auto 47.1 % (20-40); Monocytes Absolute Auto 0.3 X10*3/uL (0.1-1.2); Monocytes Percent Auto 5.2 % (2-11); Neutrophils Absolute Auto 2.2 x10*3/uL (2.0-8.3); Neutrophils Percent Auto 44.1 % (45-73); Red Blood Count 3.24 X10*6/uL (4.20-5.50); Red Cell Distribution Width 16.2 % (11.0-16.0)
[2024-05-05 14:51] LABS: Mean Platelet Volume 10.5 fL (9.4-12.3); Platelet Count 129 X10*3/uL (160-400)
[2024-05-05 16:43] LABS: Alanine Aminotransferase 29 U/L (0-31); Albumin Level 3.9 g/dL (3.5-5.0); Alkaline Phosphatase 157 U/L (39-117); Anion Gap 20 (12-20); Aspartate Amino Transferase 99 U/L (5-31); Bilirubin Direct < 0.1 mg/dL (0.0-0.5); Bilirubin Total 0.3 mg/dL (0.0-1.0); Blood Urea Nitrogen 13 mg/dL (9-16); Calcium 9.2 mg/dL (8.4-10.2); Carbon Dioxide 18 mmol/L (22-29); Chloride 106 mmol/L (96-108); Creatinine Clr Calc Pharmacy 74.7; Estimated Glomerular Filt Rate > 60; Glucose Random 99 mg/dL (60-115); Magnesium 1.3 mg/dL (1.6-2.6); Potassium 3.1 mmol/L (3.3-5.1); Sodium 141 mmol/L (135-145)
[2024-05-05 18:32] VITALS: BP 160/87; PULSE 78; RESP 16; TEMP 36.7; O2SAT 96
--- NOTE | 2024-05-05 18:56 | ED_ITS ---
HPI - General Adult General Chief complaint: General Medical Stated complaint: Bilateral leg swelling Time Seen by Provider: 05/05/24 18:34 Source: patient Mode of arrival: ambulatory Limitations: no limitations History of Present Illness ED Provider: Dr. Aga Byers HPI narrative: Patient comes to the emergency room complaining of lower extremity edema. Patient states that for the last 3 days she has been having nausea vomiting diarrhea, admits that she has been drinking alcohol lately. Patient denies chest pain or shortness of breath. Patient states that every time she comes, her magnesium and potassium are low. Related Data Home Medications ?Medication ?Instructions ?Recorded ?Confirmed cholecalciferol (vitamin D3) 50 50 mcg PO DAILY 11/01/23 04/02/24 mcg (2,000 unit) tablet folic acid 1 mg tablet 1 mg PO DAILY 11/01/23 04/02/24 hydroxyzine HCl 25 mg tablet 25 mg PO TID PRN anxiety 11/01/23 04/02/24 losartan 50 mg tablet 50 mg PO DAILY 11/01/23 04/02/24 pantoprazole 40 mg tablet,delayed 40 mg PO DAILY@0630 11/01/23 04/02/24 release trazodone 100 mg tablet 100 mg PO BEDTIME 11/01/23 04/02/24 clonidine HCl 0.1 mg tablet 0.1 mg PO TID PRN Anxiety 12/10/23 04/02/24 metoprolol succinate 25 mg 100 mg PO DAILY 12/10/23 04/02/24 tablet,extended release 24 hr bupropion HCl 150 mg 24 hr tablet, 150 mg PO DAILY 02/26/24 04/02/24 extended release citalopram 40 mg tablet 40 mg PO DAILY 02/26/24 04/02/24 cyanocobalamin (vitamin B-12) 1,000 mcg PO DAILY 02/26/24 04/02/24 1,000 mcg tablet Previous Rx's ?Medication ?Instructions ?Recorded ondansetron 4 mg disintegrating 4 mg PO Q8H PRN nausea and 12/06/23 tablet vomiting #30 tabs sucralfate 100 mg/mL oral 10 ml PO QID #1,000 mL 12/06/23 suspension calcium carbonate (Oyster Shell 500 mg PO DAILY #30 tabs 02/29/24 Calcium 500) magnesium oxide 400 mg (241.3 mg 400 mg PO BID #60 tabs 02/29/24 magnesium) tablet potassium chloride 10 mEq 10 meq PO DAILY #7 caps 02/29/24 capsule,extended release thiamine mononitrate (vit B1) 100 100 mg PO BEDTIME #30 tabs 02/29/24 mg tablet Allergies Allergy/AdvReac Type Severity Reaction Status Date / Time No Known Allergies Allergy Verified 05/05/24 13:51 Review of Systems 2 Review of Systems: Constitutional : No Weight loss, No Fever, No Chills, No Night Sweats, No Fatigue, No Malaise ENT/Mouth : No Hearing loss, No Ear Pain, No Nasal Congestion, No Sinus Pain, No Hoarseness, No sore throat, No Rhinorrhea, No Swallowing Difficulty Eyes: No Eye Pain, No Swelling, No Redness, No Foreign Body, No Discharge, No Vision Changes Cardiovascular : No Chest Pain, No SOB, No Dyspnea on Exertion, No Orthopnea, no palpitations, complaining of lower extremity edema Respiratory : No Cough, No Sputum, No Wheezing, No Smoke Exposure, No Dyspnea Gastrointestinal : No Nausea, No Vomiting, No Diarrhea, No Constipation, No abdominal Pain, No Hematochezia, No Melena Genitourinary : no irregular bleeding, No Dysuria, No Urinary Frequency, No Hematuria, No Urinary Incontinence, No Urgency, No Flank Pain, No Urinary Flow Changes, No Hesitancy Musculoskeletal : No joint pain, No Myalgias, No Joint Swelling Skin : No Skin Lesions, No rash Neuro : No Weakness, No Numbness, No Paresthesias, No Loss of Consciousness, No Dizziness, No Headache Psych : No Anxiety/Panic, No Depression, No SI/HI/AH/VH, admits to alcohol dependence Heme/Lymph: No Bruising, No Bleeding,No Lymphadenopathy Endocrine : No Polyuria, No Polydipsia, No Temperature Intolerance PMFSH Past Medical History Medical History Alcohol use disorder Pancreatic insufficiency Gastroesophageal reflux disease Essential hypertension Mood disorder Cannabis use disorder Hepatitis C Tobacco use disorder Social History Social History Household Members: Children Housing: House Do you presently have visiting nurse or other home services: No Alcohol intake: current Alcohol intake frequency: 3 or more drinks per day Alcohol type: hard liquor Patient Tobacco Use Status: Current everyday Tobacco user Tobacco use type: Cigarette Cigarettes Per Day: 10 e-Cigarette/Vaping Use: Currently Using Second Hand Smoke Exposure: No Substance Use Type: Marijuana Advance Directives: Yes Advance Directives on File: Yes Advance Directives Date on File: 12/10/23 Do you have a plan to hurt others: No Plan Patient : No service: No Physical Exam ED Vital Signs: Vital Signs - 24 hr 05/05/24 13:47 05/05/24 18:32 05/05/24 20:48 Temperature 98.5 F 98.1 F 97.6 F Pulse Rate 87 78 78 Respiratory Rate 18 16 16 Blood Pressure 129/81 160/87 H 172/81 H Pulse Oximetry 96 96 97 Oxygen Delivery Method Room Air Room Air Room Air 05/05/24 22:45 05/06/24 01:24 Temperature 98.0 F 98.3 F Pulse Rate 72 77 Respiratory Rate 15 16 Blood Pressure 169/85 H 197/107 H Pulse Oximetry 96 100 Oxygen Delivery Method Room Air Room Air BMI result Body Mass Index 22.5 Const Other: Appearance: Alert. Oriented X3. No acute distress. Eyes: Pupils equal, round and reactive to light. ENT: Pharynx normal. Neck: Normal inspection. Neck supple. No lymph nodes noted. No crepitus CVS: Normal heart rate and rhythm. Pulses normal. Normal S1 and S2 Respiratory: No respiratory distress. Breath sounds normal. No Wheezing. No rales Abdomen: Soft and nontender. No rigidity. No distention. Skin: Skin warm and dry. Normal skin color. Normal skin turgor. Extremities: Patient has barely noticeable nonpitting edema in both legs, not even +1, no calf pain on palpation bilaterally No Lacerations. No Rash Neuro: Oriented X 3. No motor deficit. No sensory deficit. Moving all extremities. No slurred speech. CN 2 through 12 grossly intact Psych: calm, cooperative, normal affect Medications Administered Generic Name Dose Route Start Last Admin Trade Name Freq PRN Reason Stop Dose Admin Dextrose/Sodium Chloride 1,000 mls @ 999 mls/hr 05/06/24 01:15 05/06/24 01:18 D5ns IVCONT 05/06/24 02:15 999 mls/hr .Q1H1M ONE Administration Discontinued Medications Generic Name Dose Route Start Last Admin Trade Name Freq PRN Reason Stop Dose Admin Al Hydroxide/Mg Hydroxide 30 ml 05/06/24 01:27 05/06/24 01:31 Magnesium Hydrox/Alum Hydrox 30 Ml Oral.Susp PO 05/06/24 01:28 30 ml ONCE ONE Administration Magnesium Sulfate 2 gm in 50 mls @ 25 mls/hr 05/05/24 18:49 05/05/24 21:13 Magnesium Sulfate/H2o IV 05/05/24 20:48 Infused ONCE ONE Infusion Lactated Ringer's 1,000 mls @ 999 mls/hr 05/05/24 19:00 05/05/24 22:29 Lr IVCONT Not Given .Q1H1M SAMANTHA Potassium Chloride 10 meq in 100 mls @ 100 mls/hr 05/05/24 19:30 05/06/24 00:07 Potassium Chloride/H20 IV 05/05/24 23:29 Infused Q1H SAMANTHA Infusion Dextrose/Sodium Chloride 1,000 mls @ 999 mls/hr 05/06/24 00:15 05/06/24 01:18 D5ns IVCONT 05/06/24 00:16 999 mls/hr .Q1H1M SAMANTHA Administration Losartan Potassium 50 mg 05/06/24 01:28 05/06/24 01:31 Losartan Potassium 50 Mg Tablet PO 05/06/24 01:29 50 mg ONCE ONE Administration Protocol Potassium Chloride 60 meq 05/05/24 18:49 05/05/24 19:07 Potassium Chloride Packet 20 Meq Packet PO 05/05/24 18:50 60 meq ONCE ONE Administration Sodium Bicarbonate 50 meq 05/06/24 01:02 05/06/24 01:18 Sodium Bicarbonate 8.4% 50 Meq/50 Ml Syringe IVPUSH 05/06/24 01:03 50 meq ONCE ONE Administration Medical Decision Making Medical Decision Making MDM Narrative: -my interpretation of labs: Hematology at baseline, low platelet count 129, chronic to ETOH, potassium 3.1, magnesium 1.3, chronically elevated LFTs in ETOH abuse pattern -after receiving IV fluids, potassium and magnesium, labs were rechecked. Patient's potassium and magnesium improved. However, patient now has low bicarb, secondary to alcoholic ketoacidosis. Patient receiving D5 normal saline -at 03:00, we will repeat patient's labs, check for PH, bicarb, electrolytes -I spoke with Dr. Bond, pending improvement of bicarb levels and pH , if pH is above 7.2 and bicarb is improving, patient can be admitted to the floor -I discussed the patient with Dr. Bernstein Differential Diagnosis Differential Diagnoses: The differential diagnosis associated with the presentation includes (Alcoholic ketoacidosis, gastritis, gastroenteritis, alcohol intoxication) Admission/Observation Consideration of admission/observation: Escalation of care including admission/observation considered (Considering patient's 2nd set of labs, observation considered.) Consult Healthcare Provider Management of the patient was discussed with: Hospitalist Lab Data [facility] Lab Attestation statement: I reviewed the patient's lab results. 05/05/24 13:59 05/05/24 23:34 Labs: Lab Results 05/05/24 05/05/24 Range/Units 13:59 23:34 WBC 5.0 (4.8-10.8) X10*3/uL RBC 3.24 L (4.20-5.50) X10*6/uL Hgb 12.0 (12.0-16.0) g/dl Hct 32.4 L (37.0-47.0) % MCV 100.0 H (80.0-98.0) fL MCH 37.0 H (27.0-33.0) pg MCHC 37.0 H (31.0-35.0) g/dl RDW 16.2 H (11.0-16.0) % Plt Count 129 L D (160-400) X10*3/uL MPV 10.5 (9.4-12.3) fL Immature Gran % (Auto) 0.8 H (0.0-0.4) % Neut % (Auto) 44.1 L (45-73) % Lymph % (Auto) 47.1 H (20-40) % Mills % (Auto) 5.2 (2-11) % Eos % (Auto) 1.4 (0-4) % Baso % (Auto) 1.4 (0-2) % Lymph # (Auto) 2.3 (1.2-4.9) X10*3/uL Mills # (Auto) 0.3 (0.1-1.2) X10*3/uL Eos # (Auto) 0.1 (0.0-0.4) X10*3/uL Baso # (Auto) 0.1 (0.0-0.2) X10*3/uL Abs Immat Gran (auto) 0.04 H (0.00-0.03) X10*3/uL Absolute Neuts (auto) 2.2 (2.0-8.3) x10*3/uL Absolute Nucleated RBC 0.000 (0.0-0.012) X10*3/uL Nucleated RBC % (auto) 0.0 (0.0-0.2) /100WBC Sodium 141 138 (135-145) mmol/L Potassium 3.1 L D 3.6 (3.3-5.1) mmol/L Chloride 106 103 (96-108) mmol/L Carbon Dioxide 18 L 10 L* D (22-29) mmol/L Anion Gap 20 29 H (12-20) BUN 13 11 (9-16) mg/dL Creatinine 0.72 0.59 (0.5-1.4) mg/dL Estim Creat Clear Calc 74.7 91.2 Estimated GFR > 60 > 60 Random Glucose 99 87 (60-115) mg/dL Calcium 9.2 8.3 L D (8.4-10.2) mg/dL Magnesium 1.3 L* 1.6 (1.6-2.6) mg/dL Total Bilirubin 0.3 (0.0-1.0) mg/dL Direct Bilirubin < 0.1 (0.0-0.5) mg/dL AST 99 H (5-31) U/L ALT 29 (0-31) U/L Alkaline Phosphatase 157 H (39-117) U/L B-Natriuretic Peptide < 10 (<100) pg/mL Total Protein 7.0 (6.5-8.0) g/dL Albumin 3.9 (3.5-5.0) g/dL Beta HCG, Quant 3 mIU/mL Critical Care Time Critical Care Time Critical Care Time: Yes Total Critical Care Time: 75 Attestation: I have personally provided critical care time. Time includes review of lab data, radiology results, discussion with consultants, and monitoring for potential decompensation. Intervention performed as documented. Discharge Plan Discharge Clinical Impression: Alcoholic ketoacidosis, Hypomagnesemia, Acute hypokalemia Patient Disposition: Still a Patient Prescriptions: No Action losartan 50 mg tablet 50 mg PO DAILY trazodone 100 mg tablet 100 mg PO BEDTIME pantoprazole 40 mg tablet,delayed release (DR/EC) 40 mg PO DAILY@0630 folic acid 1 mg tablet 1 mg PO DAILY hydroxyzine HCl 25 mg tablet 25 mg PO TID PRN (Reason: anxiety) cholecalciferol (vitamin D3) 50 mcg (2,000 unit) tablet 50 mcg PO DAILY metoprolol succinate 25 mg tablet extended release 24 hr 100 mg PO DAILY clonidine HCl 0.1 mg tablet 0.1 mg PO TID PRN (Reason: Anxiety) citalopram 40 mg tablet 40 mg PO DAILY cyanocobalamin (vitamin B-12) 1,000 mcg tablet 1,000 mcg PO DAILY bupropion HCl 150 mg tablet extended release 24 hr 150 mg PO DAILY potassium chloride 10 mEq capsule, extended release 10 meq PO DAILY Qty: 7 0RF calcium carbonate [Oyster Shell Calcium 500] 500 mg calcium (1,250 mg) Tablet 500 mg PO DAILY Qty: 30 0RF thiamine mononitrate (vit B1) 100 mg Tablet 100 mg PO BEDTIME Qty: 30 0RF magnesium oxide 400 mg (241.3 mg magnesium) tablet 400 mg PO BID Qty: 60 0RF sucralfate 100 mg/mL suspension 10 ml PO QID Qty: 1000 0RF Rx Instructions: swish in mouth and swallow; use after food/drink ondansetron 4 mg tablet,disintegrating 4 mg PO Q8H PRN (Reason: nausea and vomiting) Qty: 30 0RF Print Language: Jordanian
[2024-05-05] MEDS: Magnesium Sulfate/H2O 2 GM/50 ML PIGGYBACK IV (19:07)
[2024-05-05] MEDS: Potassium Chloride Packet 20 MEQ PACKET 60 MEQ PO (19:07)
[2024-05-05] MEDS: Lactated Ringers 1,000 ML 999 ML IVCONT (19:16)
[2024-05-05] MEDS: Potassium Chloride/H20 10 MEQ/100 ML PIGGYBACK 100 MEQ IV ×4 (19:39→23:07)
--- NOTE | 2024-05-05 19:45 | PC.NURSE ---
pt unable to tolerate PO potassium, aware, pt requesting IV. first bag of IV potassium infusing
[2024-05-05 19:52] LABS: HCG Quantitative 3 mIU/mL
[2024-05-05 20:48] VITALS: BP 172/81; PULSE 78; RESP 16; TEMP 36.4; O2SAT 97
[2024-05-05 22:45] VITALS: BP 169/85; PULSE 72; RESP 15; TEMP 36.7; O2SAT 96
[2024-05-06] VITALS (25 sets, daily range): BP systolic 130–223; BP diastolic 64–115; PULSE 67–83; RESP 10–20; TEMP 36.2–37.1; O2SAT 92–100; BMI 22.5
[2024-05-06 00:03] LABS: B Type Natriuretic Peptide < 10 pg/mL (<100)
[2024-05-06 00:04] LABS: Anion Gap 29 (12-20); Blood Urea Nitrogen 11 mg/dL (9-16); Calcium 8.3 mg/dL (8.4-10.2); Carbon Dioxide 10 mmol/L (22-29); Chloride 103 mmol/L (96-108); Creatinine Clr Calc Pharmacy 91.2; Estimated Glomerular Filt Rate > 60; Glucose Random 87 mg/dL (60-115); Magnesium 1.6 mg/dL (1.6-2.6); Potassium 3.6 mmol/L (3.3-5.1); Sodium 138 mmol/L (135-145)
[2024-05-06] MEDS: Dextrose 5 % and 0.9 % NaCl 1,000 ML 999 ML IVCONT ×2 (01:18)
[2024-05-06] MEDS: Sodium Bicarbonate 8.4% 50 MEQ/50 ML SYRINGE IVPUSH ×2 (01:18→02:26)
[2024-05-06] MEDS: Losartan Potassium 50 MG TABLET PO ×2 (01:31→10:10)
[2024-05-06] MEDS: Magnesium Hydrox/Alum Hydrox 30 ML ORAL.SUSP PO (01:31)
--- NOTE | 2024-05-06 01:32 | PC.NURSE ---
pt reports upper abd pain 9/10 and bp 197/107. MD made aware. pt medicated per mar. pt denies CROW/dizziness/blurry vision. repeat labs after ivf infused.
[2024-05-06] MEDS: ondansetron HCL 4 MG/2 ML VIAL IVPUSH (02:09)
[2024-05-06] MEDS: Famotidine/PF 20 MG/2 ML VIAL IVPUSH (02:09)
[2024-05-06] MEDS: Labetalol HCL 100 MG/20 ML VIAL 10 MG IVPUSH ×2 (02:26→05:42)
[2024-05-06 03:15] LABS: Venous Blood Gas Refer to POC result
[2024-05-06 03:19] LABS: VBG Base Excess 9.9 mmol/L; VBG HCO3 34 mmol/L (22-26); VBG pCO2 43 mmHg; VBG pH 7.49 (7.32-7.43); VBG pO2 65 mmHg
[2024-05-06 03:37] LABS: Anion Gap 32 (12-20); Blood Urea Nitrogen 8 mg/dL (9-16); Calcium 7.6 mg/dL (8.4-10.2); Carbon Dioxide 8 mmol/L (22-29); Chloride 101 mmol/L (96-108); Creatinine Clr Calc Pharmacy 82.8; Estimated Glomerular Filt Rate > 60; Glucose Random 295 mg/dL (60-115); Potassium 2.5 mmol/L (3.3-5.1); Sodium 138 mmol/L (135-145)
[2024-05-06] MEDS: Piperacillin Sodium/Tazobactam 3.375 GM in 0.9 % Sodium Chloride 50 ML IV ×3 (03:58→20:25)
[2024-05-06 04:04] LABS: Lactic Acid 3.7 mmol/L (0.5-2.0)
[2024-05-06 04:04] LABS: Lipase 945 U/L (8-78)
--- NOTE | 2024-05-06 04:04 | PC.NURSE ---
aware of bp awaiting further orders. pt continues to report 8/10 abd pain. pt denies n/v at this time, tolerating po intake. pt educated to remain npo at this time. awaiting abd ct scan. labs sent iv abx infusing. critical lactic 3.7 Dr. Bernstein made aware.
[2024-05-06] MEDS: Sodium Bicarbonate 8.4% 150 MEQ in Dextrose 5 % 850 ML 100 MEQ IV (04:19)
[2024-05-06] MEDS: Morphine Sulfate 4 MG/ML CARTRIDGE IVPUSH ×2 (04:19→14:13)
[2024-05-06] MEDS: Potassium Chloride/H20 10 MEQ/100 ML PIGGYBACK 100 MEQ IV ×10 (04:41→23:42)
[2024-05-06] MEDS: iohexoL 350 MG/ML 100 ML INFUS..BTL 85 ML IV (04:43)
--- NOTE | 2024-05-06 04:56 | PC.NURSE ---
LATE ENTRY: assumed care of pt 2315. per providers plan of care to repeat labs upon completion of iv replacements and ?d/c. 0124 - pt reporting upper abd pain and bp 197/107. made aware. pt medicated per dec with losartan and maalox, tolerating po intake. pt denied n/v at that time. 021 - pt found to be vomiting. bp 223/109. MD made aware. pt medicated per dec with zofran, pepcid, ivp labetolol and bicarb. ivf continue infusing. 0300- repeat labs being drawn. 033 & 0403 - MD made aware of BP. no further orders at that time. 2nd iv established blood cultures and lactic acid drawn. iv abx infusing per dec 418 - pt medicated per dec for pain. sodium bicarb drip infusing per dec. pt to ct scan. 044 - delay of potassium administration d/t verification process and not stocked in pyxis. potassium iv infusing per dec. pt is axox4 independent reporting has been experiencing diarrhea daily for a long time. pt reports abd pain worsening started 05/05/24, 6 episodes since arrival to ed. abd tender to palpation. pt denies urinary sx. pt reports daily alcohol use, last drink at 1900 (3 nips). security called to bedside to ensure no alcohol on pt. held ativan at this time as pt reports she feels too sleepy after receiving morphine for pain. ciwa 0 at this time.
[2024-05-06 05:21] LABS: Venous Blood Gas Refer to POC result
[2024-05-06 05:25] LABS: VBG Base Excess 15.2 mmol/L; VBG HCO3 40 mmol/L (22-26); VBG pCO2 48 mmHg; VBG pH 7.52 (7.32-7.43); VBG pO2 100 mmHg
[2024-05-06 05:39] LABS: Alanine Aminotransferase 37 U/L (0-31); Albumin Level 3.5 g/dL (3.5-5.0); Alkaline Phosphatase 161 U/L (39-117); Anion Gap 28 (12-20); Aspartate Amino Transferase 144 U/L (5-31); Bilirubin Total 0.7 mg/dL (0.0-1.0); Blood Urea Nitrogen 7 mg/dL (9-16); Calcium 7.5 mg/dL (8.4-10.2); Carbon Dioxide 15 mmol/L (22-29); Chloride 97 mmol/L (96-108); Creatinine Clr Calc Pharmacy 99.6; Estimated Glomerular Filt Rate > 60; Glucose Random 107 mg/dL (60-115); Magnesium 1.1 mg/dL (1.6-2.6); Phosphorus 1.5 mg/dL (2.7-4.5); Potassium 2.5 mmol/L (3.3-5.1); Sodium 137 mmol/L (135-145); Total Protein 6.8 g/dL (6.5-8.0)
--- NOTE | 2024-05-06 05:41 | PC.NURSE ---
pt met addiction medicine criteria on admission sheet however pt reports she has a coordinator outpatient already and refuses meeting with addiction medicine in hospital at this time.
[2024-05-06 05:47] LABS: Reflex Lactate? Lactic Acid Added
--- NOTE | 2024-05-06 05:48 | PM.CCHP ---
History of Present Illness Date of Service: 05/06/24 Attending physician on admission: Ida Siddiqi Chief Complaint: Lower extremity edema The patient is a 48-year-old female with a past medical history of alcohol abuse, ? alcohol withdrawal seizures, hepatitis-C s/p? outpatient treatment,? pancreatic sufficiency, hypertension, GERD who presented to the emergency department with complaints of lower extremity edema. ? Patient reported last drink was before she came to the hospital ?On arrival to emergency department? patient?s vital signs stable,? laboratory data? initially showing slight decrease in potassium to 3.1 and magnesium 1.3. ? Later throughout the night, patient patient? reported worsening abdominal pain, repeat labs showing potassium 2.5, serum bicarb 8, anion gap 32, lipase 945. Vbg:? 7.49/43/65/34.? Her blood pressure became elevated to systolic over 200s despite administration of labetalol and pain medication.? IMAGING:? ?Abdominal CT concerning for pancreatitis ED Course:? ?Patient received 3 L? bolus, potassium 60 mEq p.o., magnesium 2 g, bicarb IV push, losartan 50 mg,? Ativan 2 mg? IV.? ?Patient will be admitted to ICU for? hemodynamically? management of acute pancreatitis with alcohol ketoacidosis as well as hypertensive emergency Review of Systems Review of Systems: Yes all other systems are reviewed and are negative Gastrointestinal: Gastrointestinal: Reports abdominal pain, Denies melena, Reports loose stools, Reports nausea, Reports vomiting and Denies hematemesis PMFSH Past Medical History Medical History Alcohol use disorder Pancreatic insufficiency Gastroesophageal reflux disease Essential hypertension Mood disorder Cannabis use disorder Hepatitis C Tobacco use disorder Social History Social History Household Members: Family Housing: House Do you presently have visiting nurse or other home services: No Alcohol intake: current Alcohol intake frequency: 3 or more drinks per day Alcohol type: hard liquor Patient Tobacco Use Status: Current someday Tobacco user Tobacco use type: Cigarette Cigarettes Per Day: 10 e-Cigarette/Vaping Use: Currently Using Second Hand Smoke Exposure: No Use of substances other than those prescribed or required for medical reasons: Yes Substance Use Type: Crack/Cocaine Substance Use Frequency: Occasionally Last Used Substance: Unknown Currently Displaying Signs/Symptoms of Drug Intoxication Withdrawal: No Advance Directives: Yes Advance Directives on File: Yes Advance Directives Date on File: 12/10/23 Do you have a plan to hurt others: No Plan Nutrition Risks: Acute nausea or vomiting x1 week and Poor intake 0-25% >4 days Patient : No service: No Meds Allergies Allergy/AdvReac Type Severity Reaction Status Date / Time No Known Allergies Allergy Verified 05/05/24 13:51 Active Medications: Current Medications Enoxaparin Sodium (Enoxaparin Sodium 40 Mg/0.4 Ml Syringe) 40 mg SUBCUT Q24H [facility] Potassium Chloride (Potassium Chloride/H20) 10 meq in 100 mls @ 100 mls/hr IV Q1H [facility] Stop: 05/06/24 07:59 Last Admin: 05/06/24 05:45 Dose: 100 mls/hr Sodium Bicarbonate 150 meq/ (Dextrose) 1,000 mls @ 100 mls/hr IV .Q10H [facility] Last Admin: 05/06/24 04:19 Dose: 100 mls/hr Potassium Phosphate (Kphos) 15 mmol in 250 mls @ 62.5 mls/hr IV Q4H [facility] Stop: 05/06/24 13:44 Magnesium Sulfate (Magnesium Sulfate/H2o) 2 gm in 50 mls @ 25 mls/hr IV ONCE ONE Stop: 05/06/24 07:42 Calcium Gluconate (Calcium Gluconate) 2 gm in 100 mls @ 50 mls/hr IV ONCE ONE Stop: 05/06/24 07:42 Morphine Sulfate (Morphine Sulfate 4 Mg/Ml Cartridge) 4 mg IVPUSH Q4H PRN; Protocol PRN Reason: Pain, Severe (Pain Scale 7-10) Pharmacy Consult (Consult Rx Etoh Phenob Im/Po) 1 each MISCELLANE ONCE PRN; Protocol PRN Reason: Consult order Sodium Chloride (0.9 % Sodium Chloride Flush 3 Ml Syringe) [facility] Medications ?Medication ?Instructions ?Recorded ?Confirmed ?Last Taken ?Type cholecalciferol (vitamin D3) 50 50 mcg PO DAILY 11/01/23 04/02/24 02/25/24 History mcg (2,000 unit) tablet folic acid 1 mg tablet 1 mg PO DAILY 11/01/23 04/02/24 02/25/24 History hydroxyzine HCl 25 mg tablet 25 mg PO TID PRN anxiety 11/01/23 04/02/24 Unknown History losartan 50 mg tablet 50 mg PO DAILY 11/01/23 04/02/24 02/25/24 History pantoprazole 40 mg tablet,delayed 40 mg PO DAILY@0630 11/01/23 04/02/24 02/25/24 History release trazodone 100 mg tablet 100 mg PO BEDTIME 11/01/23 04/02/24 02/25/24 History clonidine HCl 0.1 mg tablet 0.1 mg PO TID PRN Anxiety 12/10/23 04/02/24 Unknown History metoprolol succinate 25 mg 100 mg PO DAILY 12/10/23 04/02/24 02/25/24 History tablet,extended release 24 hr bupropion HCl 150 mg 24 hr tablet, 150 mg PO DAILY 02/26/24 04/02/24 02/25/24 History extended release citalopram 40 mg tablet 40 mg PO DAILY 02/26/24 04/02/24 02/25/24 History cyanocobalamin (vitamin B-12) 1,000 mcg PO DAILY 02/26/24 04/02/24 02/25/24 History 1,000 mcg tablet Physical Exam Vital Signs: Vital Signs: Last Vital Signs Temp 98.3 F 05/06/24 01:24 Pulse 72 05/06/24 05:42 Resp 20 05/06/24 04:47 BP 180/115 H 05/06/24 05:42 Pulse Ox 97 05/06/24 04:47 O2 Del Method Room Air 05/06/24 04:47 BMI result Body Mass Index 22.5 ?General:? Alert oriented x3 no acute distress. In no acute distress,? Speaking full sentences. Following all commands. ?HEENT:? Head is normocephalic, atraumatic, pupils equal round reactive to light accommodation bilaterally. Mild jaundiced in sclre? Extraocular movements appear intact.? Buccal mucosa is dry, Neck is supple ?Cardiac:? Clear S1-S2, no murmurs rubs or gallops. ?Pulmonary:? Clear to auscultation, no wheezes, rales or rhonchi. ?Abdomen:? ?Abdomen mildly distended, tender to touch in all quadrants. Normal bowel sounds. No pulsatile mass. ?Musculoskeletal:? Moving all 4 extremities upon request a major joints, there is no crepitus or tenderness.? The strength is 5/5 bilaterally and throughout all 4 extremities.? Gait not assessed at this point. ?Neurologic:? cranial nerves 2-12 are grossly intact.? No focal deficits noted.Motor strength as above.?? ?Skin:? Intact, no lesions, edema, erythema, clubbing or cyanosis.? No ulcers. Vascular:? 2+ pulses upper and lower extremities distally. Results Labs 05/05/24 13:59 05/06/24 05:15 Labs: Laboratory Results - last 24 hr 05/05/24 05/05/24 05/06/24 13:59 23:34 03:10 MCV 100.0 H MCH 37.0 H MCHC 37.0 H RDW 16.2 H Plt Count 129 L D MPV 10.5 Immature Gran % (Auto) 0.8 H Neut % (Auto) 44.1 L Lymph % (Auto) 47.1 H [place] % (Auto) 5.2 Eos % (Auto) 1.4 Baso % (Auto) 1.4 Lymph # (Auto) 2.3 [place] # (Auto) 0.3 Eos # (Auto) 0.1 Baso # (Auto) 0.1 Abs Immat Gran (auto) 0.04 H Absolute Neuts (auto) 2.2 Absolute Nucleated RBC 0.000 Nucleated RBC % (auto) 0.0 VBG pH 7.49 H VBG pCO2 43 VBG pO2 65 VBG HCO3 34 H VBG O2 Saturation 85.0 VBG Base Excess 9.9 Anion Gap 20 29 H Estim Creat Clear Calc 74.7 91.2 Estimated GFR > 60 > 60 Random Glucose 99 87 Lactic Acid Calcium 9.2 8.3 L D Phosphorus Magnesium 1.3 L* 1.6 Total Bilirubin 0.3 Direct Bilirubin < 0.1 AST 99 H ALT 29 Alkaline Phosphatase 157 H B-Natriuretic Peptide < 10 Total Protein 7.0 Albumin 3.9 Lipase Beta-Hydroxybutyrate Beta HCG, Quant 3 05/06/24 05/06/24 05/06/24 03:11 03:41 05:15 MCV MCH MCHC RDW Plt Count MPV Immature Gran % (Auto) Neut % (Auto) Lymph % (Auto) [place] % (Auto) Eos % (Auto) Baso % (Auto) Lymph # (Auto) [place] # (Auto) Eos # (Auto) Baso # (Auto) Abs Immat Gran (auto) Absolute Neuts (auto) Absolute Nucleated RBC Nucleated RBC % (auto) VBG pH VBG pCO2 VBG pO2 VBG HCO3 VBG O2 Saturation VBG Base Excess Anion Gap 32 H 28 H Estim Creat Clear Calc 82.8 99.6 Estimated GFR > 60 > 60 Random Glucose 295 H 107 Lactic Acid 3.7 H* Calcium 7.6 L D 7.5 L Phosphorus 1.5 L Magnesium 1.1 L* Total Bilirubin 0.7 Direct Bilirubin AST 144 H ALT 37 H Alkaline Phosphatase 161 H B-Natriuretic Peptide Total Protein 6.8 Albumin 3.5 Lipase 945 H Beta-Hydroxybutyrate 0.10 Beta HCG, Quant 05/06/24 05:18 MCV MCH MCHC RDW Plt Count MPV Immature Gran % (Auto) Neut % (Auto) Lymph % (Auto) [place] % (Auto) Eos % (Auto) Baso % (Auto) Lymph # (Auto) [place] # (Auto) Eos # (Auto) Baso # (Auto) Abs Immat Gran (auto) Absolute Neuts (auto) Absolute Nucleated RBC Nucleated RBC % (auto) VBG pH 7.52 H VBG pCO2 48 VBG pO2 100 VBG HCO3 40 H VBG O2 Saturation 98.0 VBG Base Excess 15.2 Anion Gap Estim Creat Clear Calc Estimated GFR Random Glucose Lactic Acid Calcium Phosphorus Magnesium Total Bilirubin Direct Bilirubin AST ALT Alkaline Phosphatase B-Natriuretic Peptide Total Protein Albumin Lipase Beta-Hydroxybutyrate Beta HCG, Quant Assessment and Plan (1) Alcoholic ketoacidosis: Status: Acute (2) Acute alcoholic pancreatitis: Status: Acute (3) Increased anion gap metabolic acidosis: Status: Acute (4) Hypertensive emergency: Status: Acute (5) Acute hypokalemia: Status: Acute (6) Hypomagnesemia: Status: Acute (7) Hypophosphatemia: Status: Acute (8) Hypomagnesemia: Status: Acute (9) Alcohol use disorder, severe, dependence: Status: Acute (10) Nausea & vomiting: Qualifiers: Vomiting type: unspecified Qualified Code(s): R11.2 - Nausea with vomiting, unspecified Status: Acute (11) Elevated lactic acid level: Status: Acute Plan 48-year-old female with a past medical history of alcohol abuse, ? alcohol withdrawal seizures, hepatitis-C s/p? outpatient treatment,? pancreatic sufficiency, hypertension, GERD who presented with concerns of alcohol ketoacidosis and acute pancreatitis Neuro:? ?No acute issues Cardiac:?? ?Elevated lactic- ? no evidence of septic shock,? elevated lactic is due to alcohol ketoacidosis. ?Hypertensive emergency:? patient was unable to tolerate home p.o. Hypertensive agents.? Received couple of doses of labetalol,? will initiate? cardene drip if patient continue to sustain systolics >180s Pulmonary:? ?No acute issue Renal:?No acute issues GI:?? ?Alcohol ketoacidosis: serum bicarb down to 8 ? with? hypokalemia, hypocalcemia, hypomagnesemia, hypophosphatemia.? Patient reports last drink was before she came to the hospital,? but according to nursing staff patient had couple nips of alcohol while in the emergency department.? EKG was stable.? She was placed on bicarb drip. We will cont to replace electrolytes.? ?Acute Pancreatitis- Lipase elevated,? patient endorsing significant amount of? diffuse, abdominal painCT of abdomen with evidence of acute pancreatitis.? We will continue with fluids.? NPO nausea and vomiting from ? alcoholic ketoacidosis. ? Continue Zofran p.r.n., Endo:?? ?No acute issues Heme/Onc:? ?No acute? issues ID:? ?No acute issues Psych:?? alcohol abuse:? patient has history of alcohol withdrawal seizures,? we will initiate phenobarb protocol Diet: NPO Prophylaxis: ? Lovenox Subcut? Code? status: ? ? FULL CODE.? Critical care time: x 60 min of critical care time?
[2024-05-06] MEDS: Magnesium Sulfate/H2O 2 GM/50 ML PIGGYBACK IV ×2 (06:26→20:25)
[2024-05-06] MEDS: Calcium Gluconate/NaCl,Iso-Osm 2 GM/100 ML PLAST..BAG IV (06:32)
[2024-05-06] MEDS: PHENobarbitaL sodium 130 MG/ML IM ONCE 240 MG IM (07:28)
[2024-05-06 07:30] LABS: MANUAL DIFF FLAG NO
[2024-05-06] MEDS: 0.9 % Sodium Chloride Flush 3 ML SYRINGE IVFLUSH ×2 (07:31→16:36)
[2024-05-06] MEDS: Enoxaparin Sodium 40 MG/0.4 ML SYRINGE SUBCUT (07:31)
[2024-05-06 07:51] LABS: Basophils Absolute Auto 0.1 X10*3/uL (0.0-0.2); Basophils Percent Auto 0.8 % (0-2); Eosinophils Percent Auto 0.4 % (0-4); Hematocrit 31.3 % (37.0-47.0); Hemoglobin 11.6 g/dl (12.0-16.0); Imm Gran Abs Auto 0.03 X10*3/uL (0.00-0.03); Imm Gran Pct Auto 0.4 % (0.0-0.4); Lymphocytes Absolute Auto 1.3 X10*3/uL (1.2-4.9); Lymphocytes Percent Auto 16.4 % (20-40); Mean Corpuscular HGB Conc 37.1 g/dl (31.0-35.0); Mean Corpuscular Hemoglobin 36.9 pg (27.0-33.0); Mean Corpuscular Volume 99.7 fL (80.0-98.0); Monocytes Absolute Auto 0.3 X10*3/uL (0.1-1.2); Monocytes Percent Auto 4.2 % (2-11); Neutrophils Absolute Auto 5.9 x10*3/uL (2.0-8.3); Neutrophils Percent Auto 77.8 % (45-73); Platelet Count 102 X10*3/uL (160-400); Red Blood Count 3.14 X10*6/uL (4.20-5.50); Red Cell Distribution Width 15.9 % (11.0-16.0); White Blood Count 7.6 X10*3/uL (4.8-10.8)
[2024-05-06 07:52] LABS: ~Lactic Acid-LAB USE ONLY 2.9 mmol/L (0.5-2.0)
[2024-05-06] MEDS: Thiamine HCL 100 MG in 0.9 % Sodium Chloride 100 ML 202 MG IV ×2 (08:57→20:54)
[2024-05-06] MEDS: Potassium Phosphate/NS 15 MMOL/250 ML PLAST..BAG 62.5 MMOL IV ×2 (08:58→13:11)
[2024-05-06 09:26] LABS: Amphetamine Screen Urine Not Detected (Not Detect); Barbiturates, Urine Not Detected (Not Detect); Benzodiazepines Screen Urine Not Detected (Not Detect); Buprenorphine Scr Not Detected (Not Detect); Cannabinoid Screen Urine Not Detected (Not Detect); Cocaine Screen Urine POSITIVE (Not Detect); Fentanyl, urine Not Detected (Not Detect); Methadone Screen, Urine Not Detected (Not Detect); Opiate Screen Urine POSITIVE (Not Detect); Oxycodone Screen Urine Not Detected (Not Detect); Phencyclidine Screen Urine Not Detected (Not Detect)
--- NOTE | 2024-05-06 09:26 | PHA.MEDREC ---
Pharmacy Consult ? Medication Reconciliation Pharmacy has completed the medication reconciliation. Confirmed medications with patient. She states she was prescribed Amlodipine 5mg but said her Dr told her to stop in the last month. She also stated she should be taking Calcium Carbonate 500mg, Vitamin B1 100mg, and a Vitamin D3 2,000 unit tabs; but for the last few weeks to over a month now she states she has had no refills and has been contacting Dr with no luck. Pt states she is taking both Clonidine 0.1mg and Hydroxizine 25 mg as needed for anxiety.
[2024-05-06 09:29] LABS: Reflex Lactate? 2 Y
[2024-05-06] MEDS: Metoprolol Succinate ER 100 MG TAB.ER.24H PO (10:10)
[2024-05-06] MEDS: Folic Acid 1 MG in 0.9 % Sodium Chloride 50 ML 100.4 MG IV (10:12)
--- NOTE | 2024-05-06 10:17 | MHC.CM.PN ---
Pt receiving care in ICU for pancreatitis, electrolyte derangement and BP issues. Pt resides w/son who assists w/care needs. He is also her HCP - on file and verified. Pt has no services or DME and may need transportation to home if son cannot. Pt very sleepy - CM will reapproach when more awake for finalization of d/c plans.
[2024-05-06] MEDS: PHENobarbitaL sodium 130 MG/ML VIAL IM Q3Hx2 180 MG IM ×2 (10:33→13:24)
[2024-05-06 10:35] LABS: ~Lactic Acid-LAB USE ONLY 3.3 mmol/L (0.5-2.0)
[2024-05-06 12:27] LABS: VBG Base Excess 13.2 mmol/L; VBG HCO3 36 mmol/L (22-26); VBG pCO2 41 mmHg; VBG pH 7.55 (7.32-7.43); VBG pO2 81 mmHg
[2024-05-06 12:28] LABS: Venous Blood Gas Refer to POC result
[2024-05-06 12:47] LABS: Anion Gap 24 (12-20); Blood Urea Nitrogen 4 mg/dL (9-16); Calcium 8.1 mg/dL (8.4-10.2); Chloride 91 mmol/L (96-108); Creatinine Clr Calc Pharmacy 92.7; Estimated Glomerular Filt Rate > 60; Glucose Random 99 mg/dL (60-115); Magnesium 1.4 mg/dL (1.6-2.6); Phosphorus 3.2 mg/dL (2.7-4.5); Sodium 135 mmol/L (135-145)
[2024-05-06] MEDS: Magnesium Sulfate/D5W 1 GM/100 ML PIGGYBACK IV (13:11)
[2024-05-06 13:16] LABS: Carbon Dioxide 22 mmol/L (22-29); Potassium 3.3 mmol/L (3.3-5.1)
[2024-05-06] MEDS: Calcium Gluconate/NaCl,Iso-Osm 1 GM/50 ML PLAST..BAG IV (13:24)
[2024-05-06] MEDS: Potassium Chloride ER 20 MEQ TAB.ER.PRT PO (14:07)
[2024-05-06 19:02] LABS: Anion Gap 23 (12-20); Blood Urea Nitrogen 4 mg/dL (9-16); Calcium 8.1 mg/dL (8.4-10.2); Carbon Dioxide 22 mmol/L (22-29); Chloride 95 mmol/L (96-108); Creatinine Clr Calc Pharmacy 75.7; Estimated Glomerular Filt Rate > 60; Glucose Random 114 mg/dL (60-115); Magnesium 1.6 mg/dL (1.6-2.6); Phosphorus 2.9 mg/dL (2.7-4.5); Sodium 137 mmol/L (135-145)
[2024-05-06 19:33] LABS: Lactic Acid 2.9 mmol/L (0.5-2.0)
[2024-05-06] MEDS: Potassium Chloride Packet 20 MEQ PACKET PO (20:24)
[2024-05-06 20:29] LABS: Reflex Lactate? Lactic Acid Added
[2024-05-06] MEDS: PHENobarbitaL 15 MG TABLET 45 MG PO (20:54)
[2024-05-06 21:07] LABS: ~Lactic Acid-LAB USE ONLY 1.6 mmol/L (0.5-2.0)
[2024-05-06] MEDS: traZODone HCL 50 MG TABLET PO (22:44)
[2024-05-07] VITALS (15 sets, daily range): BP systolic 133–178; BP diastolic 65–99; PULSE 65–95; RESP 11–18; TEMP 36.1–36.7; O2SAT 91–97; BMI 22.5
[2024-05-07] MEDS: Piperacillin Sodium/Tazobactam 3.375 GM in 0.9 % Sodium Chloride 50 ML IV ×4 (01:25→20:00)
[2024-05-07 05:51] LABS: MANUAL DIFF FLAG NO
[2024-05-07 05:53] LABS: Basophils Percent Auto 0.8 % (0-2); Eosinophils Absolute Auto 0.2 X10*3/uL (0.0-0.4); Eosinophils Percent Auto 3.4 % (0-4); Hematocrit 32.1 % (37.0-47.0); Hemoglobin 11.2 g/dl (12.0-16.0); Imm Gran Abs Auto 0.02 X10*3/uL (0.00-0.03); Imm Gran Pct Auto 0.4 % (0.0-0.4); Lymphocytes Absolute Auto 1.5 X10*3/uL (1.2-4.9); Lymphocytes Percent Auto 30.2 % (20-40); Mean Corpuscular HGB Conc 34.9 g/dl (31.0-35.0); Mean Corpuscular Hemoglobin 35.7 pg (27.0-33.0); Mean Corpuscular Volume 102.2 fL (80.0-98.0); Mean Platelet Volume 10.5 fL (9.4-12.3); Monocytes Absolute Auto 0.2 X10*3/uL (0.1-1.2); Monocytes Percent Auto 4.3 % (2-11); Neutrophils Percent Auto 60.9 % (45-73); Red Blood Count 3.14 X10*6/uL (4.20-5.50); Red Cell Distribution Width 16.6 % (11.0-16.0); White Blood Count 4.9 X10*3/uL (4.8-10.8)
[2024-05-07 05:54] LABS: Platelet Count 70 X10*3/uL (160-400)
--- NOTE | 2024-05-07 08:07 | PM.CCPN ---
Subjective Subjective Date of Service: 05/07/24 Interval History: no significant overnight events Critical Care Time (minutes): 0 Physical Exam Vital Signs: Vital Signs: Last Vital Signs Temp 97.3 F 05/07/24 04:00 Pulse 65 05/07/24 07:00 Resp 15 05/07/24 07:00 BP 161/82 H 05/07/24 07:00 Pulse Ox 95 05/07/24 07:00 O2 Del Method Room Air 05/07/24 07:00 BMI result Body Mass Index 22.5 Const: General: cooperative, healthy appearing, comfortable, no acute distress, well developed, alert, awake and Physically active Orientation/consciousness: patient oriented x3 HEENT: Head: Yes normal to inspection, Yes normocephalic and Yes atraumatic Eyes: General: appearance normal, both eyes and all related structures Neck: Neck: Yes normal visual inspection, Yes full ROM, Yes no meningeal signs, Yes trachea midline and Yes supple Chest: Chest palpation & inspection: normal inspection of the chest Resp: Other: no appreciable rales, rhonchi, wheezing Effort & Inspection: normal respiratory effort Cardio: Rate: regular rate Rhythm: regular rhythm GI: Inspection: Yes normal to inspection, No Abdominal wall edema and No distended Palpation (GI): Soft to palpation, not firm, nontender, no guarding and not rigid Skin: General skin exam: no rashes or lesions noted Neuro: General: patient oriented x3, tone normal, moves all extremities, no meningeal signs and no focal motor deficits Extrem: General: Yes normal to inspection, Yes capillary refill normal and Yes no clubbing, cyanosis or edema Psych: Appearance: grossly normal Objective Data Labs 05/07/24 05:26 05/06/24 18:25 Labs: Laboratory Results - last 24 hr 05/06/24 05/06/24 05/06/24 08:29 09:48 12:16 WBC RBC Hgb Hct MCV MCH MCHC RDW Plt Count MPV Immature Gran % (Auto) Neut % (Auto) Lymph % (Auto) [place] % (Auto) Eos % (Auto) Baso % (Auto) Lymph # (Auto) [place] # (Auto) Eos # (Auto) Baso # (Auto) Abs Immat Gran (auto) Absolute Neuts (auto) Absolute Nucleated RBC Nucleated RBC % (auto) VBG pH VBG pCO2 VBG pO2 VBG HCO3 VBG O2 Saturation VBG Base Excess Sodium 135 Potassium 3.3 D Chloride 91 L Carbon Dioxide 22 Anion Gap 24 H BUN 4 L Creatinine 0.58 Estim Creat Clear Calc 92.7 Estimated GFR > 60 Random Glucose 99 Lactic Acid Lactic Acid F/U @ 2Hr Lactic Acid F/U @ 4Hr 3.3 H* Calcium 8.1 L D Phosphorus 3.2 Magnesium 1.4 L* Urine Opiates Screen POSITIVE H Ur Buprenorphine Scrn Not Detected Ur Oxycodone Screen Not Detected Urine Methadone Screen Not Detected Urine Fentanyl Screen Not Detected Ur Barbiturates Screen Not Detected Ur Phencyclidine Scrn Not Detected Ur Amphetamines Screen Not Detected U Benzodiazepines Scrn Not Detected Urine Cocaine Screen POSITIVE H U Marijuana (THC) Screen Not Detected 05/06/24 05/06/24 05/06/24 12:19 18:25 20:51 WBC RBC Hgb Hct MCV MCH MCHC RDW Plt Count MPV Immature Gran % (Auto) Neut % (Auto) Lymph % (Auto) [place] % (Auto) Eos % (Auto) Baso % (Auto) Lymph # (Auto) [place] # (Auto) Eos # (Auto) Baso # (Auto) Abs Immat Gran (auto) Absolute Neuts (auto) Absolute Nucleated RBC Nucleated RBC % (auto) VBG pH 7.55 H VBG pCO2 41 VBG pO2 81 VBG HCO3 36 H VBG O2 Saturation 97.0 VBG Base Excess 13.2 Sodium 137 Potassium 3.0 L Chloride 95 L Carbon Dioxide 22 Anion Gap 23 H BUN 4 L Creatinine 0.71 Estim Creat Clear Calc 75.7 Estimated GFR > 60 Random Glucose 114 Lactic Acid 2.9 H* Lactic Acid F/U @ 2Hr 1.6 Lactic Acid F/U @ 4Hr Calcium 8.1 L Phosphorus 2.9 Magnesium 1.6 Urine Opiates Screen Ur Buprenorphine Scrn Ur Oxycodone Screen Urine Methadone Screen Urine Fentanyl Screen Ur Barbiturates Screen Ur Phencyclidine Scrn Ur Amphetamines Screen U Benzodiazepines Scrn Urine Cocaine Screen U Marijuana (THC) Screen 05/07/24 05:26 WBC 4.9 RBC 3.14 L Hgb 11.2 L Hct 32.1 L MCV 102.2 H MCH 35.7 H MCHC 34.9 RDW 16.6 H Plt Count 70 L D MPV 10.5 Immature Gran % (Auto) 0.4 Neut % (Auto) 60.9 Lymph % (Auto) 30.2 [place] % (Auto) 4.3 Eos % (Auto) 3.4 Baso % (Auto) 0.8 Lymph # (Auto) 1.5 [place] # (Auto) 0.2 Eos # (Auto) 0.2 Baso # (Auto) 0.0 Abs Immat Gran (auto) 0.02 Absolute Neuts (auto) 3.0 Absolute Nucleated RBC 0.000 Nucleated RBC % (auto) 0.0 VBG pH VBG pCO2 VBG pO2 VBG HCO3 VBG O2 Saturation VBG Base Excess Sodium Potassium Chloride Carbon Dioxide Anion Gap BUN Creatinine Estim Creat Clear Calc Estimated GFR Random Glucose Lactic Acid Lactic Acid F/U @ 2Hr Lactic Acid F/U @ 4Hr Calcium Phosphorus Magnesium Urine Opiates Screen Ur Buprenorphine Scrn Ur Oxycodone Screen Urine Methadone Screen Urine Fentanyl Screen Ur Barbiturates Screen Ur Phencyclidine Scrn Ur Amphetamines Screen U Benzodiazepines Scrn Urine Cocaine Screen U Marijuana (THC) Screen Microbiology Microbiology Results: Microbiology 05/06/24 03:42 Blood - Venous Blood Culture - Preliminary No growth after 24 hours. 05/06/24 03:41 Blood - Venous Blood Culture - Preliminary No growth after 24 hours. Progress Note: A&P Assessment and plan (1) Acute alcoholic pancreatitis: Status: Acute (2) Alcohol use disorder, severe, dependence: Status: Acute (3) Diverticulitis: Status: Acute (4) Hypertension: Status: Acute Plan Patient?is a 48 Y F w/ hypertension, prior hepatitis C, s/p treatment, alcohol misuse, c/b withdrawal seizure, and prior pancreatitis presenting?initially on 05/06 w/ abdominal pain, found to have pancreatitis, c/b electrolyte derangements including anion-gap metabolic acidosis; admitted ICU for further management N: no acute issues CV: hypertensive; re-started home metoprolol, losartan R: no acute issues GI: pancreatitis; possible diverticulitis; tolerating regular diet; diarrhea, to follow-up c. diff : electrolyte derangements, improving; anion gap metabolic acidosis, likely?d/t lactic acid, ketoacidosis, improving H: thrombocytopenia; to hold chemical CVT prophylaxis until PLT > 100; SCDs ID: possible?diverticulitis; zosyn E: no acute issues; to monitor glucose S: alcohol misuse, on CIWA protocol; addiction medicine consult Quality Stroke Does the patient have a stroke diagnosis?: No VTE Prior VTE?: No VTE Risk Level:: Medical - moderate - high VTE Device Contraindication: N/A - Device Ordered VTE Drug Contraindication: Treatment Not Tolerated
[2024-05-07] MEDS: Thiamine HCL 100 MG in 0.9 % Sodium Chloride 100 ML 202 MG IV (08:38)
[2024-05-07] MEDS: Losartan Potassium 50 MG TABLET PO (08:39)
[2024-05-07] MEDS: PHENobarbitaL 15 MG TABLET 45 MG PO ×2 (08:39→20:01)
[2024-05-07] MEDS: Metoprolol Succinate ER 100 MG TAB.ER.24H PO (08:39)
[2024-05-07 09:16] LABS: Anion Gap 15 (12-20); Blood Urea Nitrogen 3 mg/dL (9-16); Calcium 8.5 mg/dL (8.4-10.2); Carbon Dioxide 27 mmol/L (22-29); Chloride 98 mmol/L (96-108); Creatinine Clr Calc Pharmacy 92.7; Estimated Glomerular Filt Rate > 60; Glucose Random 105 mg/dL (60-115); Phosphorus 2.9 mg/dL (2.7-4.5); Sodium 137 mmol/L (135-145)
[2024-05-07] MEDS: Folic Acid 1 MG in 0.9 % Sodium Chloride 50 ML 100.4 MG IV (09:34)
[2024-05-07] MEDS: Potassium Chloride ER 20 MEQ TAB.ER.PRT PO (09:34)
[2024-05-07] MEDS: 0.9 % Sodium Chloride Flush 3 ML SYRINGE IVFLUSH ×2 (09:35→20:00)
[2024-05-07] MEDS: Morphine Sulfate 2 MG/ML CARTRIDGE IVPUSH ×3 (12:22→20:35)
[2024-05-07] MEDS: Lactated Ringers 1,000 ML 100 ML IVCONT ×2 (12:23→22:19)
--- NOTE | 2024-05-07 12:25 | MHC.CM.PN ---
EMR reviewed and per MD rounds, pt is not medically cleared for discharge today due to ongoing management of acute pancreatitis, and monitoring her electrolytes.
[2024-05-07] MEDS: Sucralfate Oral Suspension 1 GM/10 ML ORAL.SUSP PO ×3 (13:23→22:18)
[2024-05-07] MEDS: Magnesium Oxide 400 MG TABLET PO (20:01)
[2024-05-07] MEDS: traZODone HCL 50 MG TABLET PO (22:18)
[2024-05-08] MEDS: Piperacillin Sodium/Tazobactam 3.375 GM in 0.9 % Sodium Chloride 50 ML IV ×4 (01:08→20:07)
--- NOTE | 2024-05-08 03:36 | PC.NURSE ---
Pt is AOx3, able to make her needs known. Ambulating to bathroom, stby assist. ABD remains distended and tender. CIWAs have been zero this shift. Call yarbrough within reach. Bed alarm on.
[2024-05-08 03:40] VITALS: BP 155/65; PULSE 70; RESP 16; TEMP 36.3; O2SAT 94
[2024-05-08 07:03] VITALS: BP 152/72; PULSE 63; RESP 16; TEMP 36.1; O2SAT 96
[2024-05-08 07:13] LABS: Blood Urea Nitrogen 4 mg/dL (9-16); Calcium 8.4 mg/dL (8.4-10.2); Creatinine Clr Calc Pharmacy 91.2; Estimated Glomerular Filt Rate > 60; Glucose Random 110 mg/dL (60-115); Magnesium 1.5 mg/dL (1.6-2.6); Phosphorus 3.3 mg/dL (2.7-4.5)
[2024-05-08 07:22] LABS: Hematocrit 28.6 % (37.0-47.0); Hemoglobin 9.6 g/dl (12.0-16.0); Mean Corpuscular HGB Conc 33.6 g/dl (31.0-35.0); Mean Corpuscular Hemoglobin 35.6 pg (27.0-33.0); Mean Corpuscular Volume 105.9 fL (80.0-98.0); Mean Platelet Volume 11.6 fL (9.4-12.3); Red Cell Distribution Width 16.9 % (11.0-16.0); White Blood Count 4.9 X10*3/uL (4.8-10.8)
[2024-05-08 07:23] LABS: Platelet Count 64 X10*3/uL (160-400)
[2024-05-08 07:33] LABS: Anion Gap 12 (12-20); Carbon Dioxide 28 mmol/L (22-29); Chloride 102 mmol/L (96-108); Potassium 3.3 mmol/L (3.3-5.1); Sodium 139 mmol/L (135-145)
[2024-05-08] MEDS: Lactated Ringers 1,000 ML 100 ML IVCONT ×2 (07:58→17:03)
[2024-05-08 08:02] VITALS: BP 152/72; PULSE 63
[2024-05-08] MEDS: Magnesium Oxide 400 MG TABLET PO ×2 (08:02→20:08)
[2024-05-08] MEDS: Sucralfate Oral Suspension 1 GM/10 ML ORAL.SUSP PO ×4 (08:02→20:07)
[2024-05-08] MEDS: Cholecalciferol (Vitamin D3) 25 MCG TABLET 50 MCG PO (08:02)
[2024-05-08] MEDS: Thiamine HCL 100 MG TABLET PO (08:02)
[2024-05-08] MEDS: Losartan Potassium 50 MG TABLET PO (08:02)
[2024-05-08] MEDS: Metoprolol Succinate ER 100 MG TAB.ER.24H PO (08:02)
[2024-05-08] MEDS: buPROPion HCl XL 150 MG TAB.ER.24H PO (08:02)
[2024-05-08] MEDS: Escitalopram Oxalate 20 MG TABLET PO (08:02)
[2024-05-08] MEDS: Folic Acid 1 MG TABLET PO (08:03)
[2024-05-08] MEDS: PHENobarbitaL 15 MG TABLET 45 MG PO (08:03)
[2024-05-08] MEDS: Morphine Sulfate 2 MG/ML CARTRIDGE IVPUSH ×3 (08:18→20:16)
--- NOTE | 2024-05-08 11:43 | MHC.RECOVRN ---
Met with pt in 353 after consult placed to Addiction Medicine for alcohol use. Pt presented?initially on 05/06 w/ abdominal pain, found to have pancreatitis, c/b electrolyte derangements including anion-gap metabolic acidosis and had been admitted ICU for further management. Pt downgraded to S3 on 05/07. Pt sitting in bed, awake, alert, easily engages in conversation, pts partner Dada present with pts permission. Pt reports after last admission returning to alcohol use immediately, had been drinking 4-5 vodka shots daily with an increase to 7-8 approx 2 weeks ago. Pt also reports occasional cocaine use, approx once per month. Pt reports she has been going to [facility] x 1.5 weeks but does not plan on returning due to not being able to identify with other participants. Pt reports she had been taking acamprosate with positive effect but has run out of the medication. Pts goal is to decrease use. Discussed returning to the [facility] as pt has had a couple appts there in the past. Pt would like to return. Discussed other recovery resources and supports, including [facility]'s PHP/IOP. Provided pt with written resources as well as t/w contact information if needed. Pt denies questions or concerns at this time. [facility] appt made for 06/06/24 at 10:30AM.
--- NOTE | 2024-05-08 12:54 | HO.PM.IMPN ---
Subjective Subjective Date of Service: 05/08/24 Interval History: seen and evaluated this morning reporting abdominal pain having diarrhea no other events Review of Systems Review of Systems: Yes all other systems are reviewed and are negative Physical Exam Vital Signs: Vital Signs: Last Vital Signs Temp 97 F 05/08/24 07:03 Pulse 63 05/08/24 08:02 Resp 16 05/08/24 07:03 BP 152/72 H 05/08/24 08:02 Pulse Ox 96 05/08/24 07:03 O2 Del Method Room Air 05/08/24 07:03 BMI result Body Mass Index 22.5 Const: Other: Constitutional : Awake, interactive, not in distress Neck : Normal inspection, Supple Cardiovascular : RRR, no JVP, no lower extremity edema Respiratory : good bilateral air entry, no crackles, wheezes or rhonchi Gastrointestinal: soft, lax, Normal bowel sounds, epigastric tenderness Skin : Warm, Dry Neurological : Alert & oriented x3, No focal deficit , CN 2-12 within normal Objective Data Active Medications Acetaminophen (Acetaminophen 325 Mg Tablet) 650 mg PO Q6H PRN PRN Reason: Pain, Mild (Pain Scale 1-3) Bupropion HCl (Bupropion Hcl Xl 150 Mg Tab.Er.24h) 150 mg PO DAILY [facility] Last Admin: 05/08/24 08:02 Dose: 150 mg Documented By: DIVINE Clonidine HCl (Clonidine Hcl 0.1 Mg Tablet) 0.1 mg PO TID PRN; Protocol PRN Reason: Anxiety Escitalopram Oxalate (Escitalopram Oxalate 20 Mg Tablet) 20 mg PO DAILY [facility] Last Admin: 05/08/24 08:02 Dose: 20 mg Documented By: DIVINE Folic Acid (Folic Acid 1 Mg Tablet) 1 mg PO DAILY [facility] Last Admin: 05/08/24 08:03 Dose: 1 mg Documented By: DIVINE Hydroxyzine HCl (Hydroxyzine Hcl 25 Mg Tablet) 25 mg PO Q8H PRN PRN Reason: Anxiety Piperacillin Sod/Tazobactam (Sod 3.375 gm/ Sodium Chloride) 50 mls @ 100 mls/hr IV Q6H [facility] Last Infusion: 05/08/24 08:29 Dose: Infused Documented By: DIVINE Lactated Ringer's (Lr) 1,000 mls @ 100 mls/hr IVCONT .Q10H [facility] Last Admin: 05/08/24 07:58 Dose: 100 mls/hr Documented By: DIVINE Losartan Potassium (Losartan Potassium 50 Mg Tablet) 50 mg PO DAILY [facility]; Protocol Last Admin: 05/08/24 08:02 Dose: 50 mg Documented By: DIVINE Magnesium Oxide (Magnesium Oxide 400 Mg Tablet) 400 mg PO BID [facility] Last Admin: 05/08/24 08:02 Dose: 400 mg Documented By: DIVINE Metoprolol Succinate (Metoprolol Succinate Er 100 Mg Tab.Er.24h) 100 mg PO DAILY [facility]; Protocol Last Admin: 05/08/24 08:02 Dose: 100 mg Documented By: DIVINE Morphine Sulfate (Morphine Sulfate 2 Mg/Ml Cartridge) 2 mg IVPUSH Q4H PRN; Protocol PRN Reason: Pain, Severe (Pain Scale 7-10) Last Admin: 05/08/24 08:18 Dose: 2 mg Documented By: DIVINE Ondansetron HCl (Ondansetron Hcl 4 Mg/2 Ml Vial) 4 mg IVPUSH Q8H PRN PRN Reason: Nausea and Vomiting Pharmacy Consult (Consult Rx Etoh Phenob Im/Po) 1 each MISCELLANE ONCE PRN; Protocol PRN Reason: Consult order Phenobarbital (Phenobarbital 30 Mg Tablet) 30 mg PO BID [facility] Stop: 05/10/24 09:01 Phenobarbital (Phenobarbital 30 Mg Tablet) 30 mg PO DAILY [facility] Stop: 05/12/24 09:01 Sodium Chloride (0.9 % Sodium Chloride Flush 3 Ml Syringe) 3 ml IVFLUSH QSHIFT [facility] Last Admin: 05/08/24 07:33 Dose: Not Given Documented By: DIVINE Non-Admin Reason: IV Running Sucralfate (Sucralfate Oral Suspension 1 Gm/10 Ml Oral.Susp) 1 gm PO QID [facility] Last Admin: 05/08/24 08:02 Dose: 1 gm Documented By: DIVINE Thiamine HCl (Thiamine Hcl 100 Mg Tablet) 100 mg PO DAILY [facility] Last Admin: 05/08/24 08:02 Dose: 100 mg Documented By: DIVINE Trazodone HCl (Trazodone Hcl 50 Mg Tablet) 50 mg PO BEDTIME PRN PRN Reason: Insomnia Last Admin: 07/10/24 22:18 Dose: 50 mg Documented By: NELSY Vitamin D (Cholecalciferol (Vitamin D3) 25 Mcg Tablet) 50 mcg PO DAILY [facility] Last Admin: 05/08/24 08:02 Dose: 50 mcg Documented By: DIVINE Labs 05/08/24 05:39 05/08/24 05:39 Labs: Laboratory Results - last 24 hr 05/08/24 05:39 MCV 105.9 H MCH 35.6 H MCHC 33.6 RDW 16.9 H Plt Count 64 L MPV 11.6 Absolute Nucleated RBC 0.000 Nucleated RBC % (auto) 0.0 Anion Gap 12 Estim Creat Clear Calc 91.2 Estimated GFR > 60 Random Glucose 110 Calcium 8.4 Phosphorus 3.3 Magnesium 1.5 L Microbiology Microbiology Results: Microbiology 05/06/24 03:42 Blood Culture - Preliminary Blood - Venous No growth after 48 hours. 05/06/24 03:41 Blood Culture - Preliminary Blood - Venous No growth after 48 hours. Assessment and Plan (1) Diverticulitis: Status: Acute (2) Elevated lactic acid level: Status: Acute (3) Acute alcoholic pancreatitis: Status: Acute (4) Hypomagnesemia: Status: Acute Plan Patient?is a 48 Y F w/ hypertension, prior hepatitis C, s/p treatment, alcohol misuse, c/b withdrawal seizure, and prior pancreatitis presenting?initially on 05/06 w/ abdominal pain, found to have pancreatitis, c/b electrolyte derangements including anion-gap metabolic acidosis; monitored in ICU on IVF with improvement. Acute Pancreatitis Pain management IVF advnace diet HTN metoprolol, losartan Acute diverticulitis negative c. diff contionue Zosyn anion gap metabolic acidosis, electrolyte imbalance likely?d/t lactic acid, ketoacidosis resolved alcohol misuse on CIWA protocol; addiction medicine consult acute hypomagnesemia give replacement thrombocytopenia stable hold chemical CVT prophylaxis until PLT > 100; DVT PPx SCDs Quality Stroke Does the patient have a stroke diagnosis?: No VTE Prior VTE?: No VTE Risk Level:: Medical - moderate - high VTE Device Contraindication: N/A - Device Ordered VTE Drug Contraindication: Treatment Not Tolerated
[2024-05-08] MEDS: Magnesium Sulfate/H2O 2 GM/50 ML PIGGYBACK IV (13:28)
[2024-05-08 15:09] VITALS: BP 148/89; PULSE 65; RESP 16; TEMP 36.3; O2SAT 95
[2024-05-08] MEDS: Simethicone 80 MG TAB.CHEW 160 MG PO (15:14)
[2024-05-08 19:13] VITALS: BP 145/77; PULSE 65; RESP 16; TEMP 36.2; O2SAT 96
[2024-05-08] MEDS: PHENobarbitaL 30 MG TABLET PO (20:08)
[2024-05-08 20:16] VITALS: RESP 18
[2024-05-08] MEDS: traZODone HCL 50 MG TABLET PO (21:57)
--- NOTE | 2024-05-08 22:46 | PC.NURSE ---
Patient re educated on high fall risk precautions, patient continues to refuse bed alarm for safety. Patient is alert and oriented, ambulates with a steady gait.
[2024-05-09] MEDS: Piperacillin Sodium/Tazobactam 3.375 GM in 0.9 % Sodium Chloride 50 ML IV ×2 (01:27→07:45)
[2024-05-09] MEDS: Morphine Sulfate 2 MG/ML CARTRIDGE IVPUSH (01:33)
[2024-05-09] MEDS: Lactated Ringers 1,000 ML 100 ML IVCONT (01:58)
[2024-05-09 04:00] VITALS: BP 178/86; PULSE 66; RESP 16; TEMP 36.4; O2SAT 95
[2024-05-09 06:19] LABS: MANUAL DIFF FLAG NO
[2024-05-09 06:23] LABS: Basophils Percent Auto 0.8 % (0-2); Eosinophils Absolute Auto 0.2 X10*3/uL (0.0-0.4); Eosinophils Percent Auto 3.8 % (0-4); Hematocrit 30.4 % (37.0-47.0); Hemoglobin 10.2 g/dl (12.0-16.0); Imm Gran Abs Auto 0.02 X10*3/uL (0.00-0.03); Imm Gran Pct Auto 0.4 % (0.0-0.4); Lymphocytes Absolute Auto 1.7 X10*3/uL (1.2-4.9); Lymphocytes Percent Auto 31.6 % (20-40); Mean Corpuscular HGB Conc 33.6 g/dl (31.0-35.0); Mean Corpuscular Hemoglobin 35.9 pg (27.0-33.0); Mean Platelet Volume 11.4 fL (9.4-12.3); Monocytes Absolute Auto 0.3 X10*3/uL (0.1-1.2); Monocytes Percent Auto 4.7 % (2-11); NRBC Pct Auto 0.4 /100WBC (0.0-0.2); Neutrophils Absolute Auto 3.1 x10*3/uL (2.0-8.3); Neutrophils Percent Auto 58.7 % (45-73); Red Blood Count 2.84 X10*6/uL (4.20-5.50); Red Cell Distribution Width 16.6 % (11.0-16.0); White Blood Count 5.3 X10*3/uL (4.8-10.8)
[2024-05-09 06:29] LABS: Platelet Count 75 X10*3/uL (160-400)
[2024-05-09 06:37] VITALS: BP 170/90
[2024-05-09 06:47] LABS: Anion Gap 13 (12-20); Blood Urea Nitrogen 6 mg/dL (9-16); Calcium 8.8 mg/dL (8.4-10.2); Carbon Dioxide 29 mmol/L (22-29); Chloride 101 mmol/L (96-108); Creatinine Clr Calc Pharmacy 97.8; Estimated Glomerular Filt Rate > 60; Glucose Random 118 mg/dL (60-115); Magnesium 1.5 mg/dL (1.6-2.6); Phosphorus 3.8 mg/dL (2.7-4.5); Potassium 3.7 mmol/L (3.3-5.1); Sodium 139 mmol/L (135-145)
[2024-05-09] MEDS: Cholecalciferol (Vitamin D3) 25 MCG TABLET 50 MCG PO (07:42)
[2024-05-09] MEDS: Metoprolol Succinate ER 100 MG TAB.ER.24H PO (07:42)
[2024-05-09] MEDS: Sucralfate Oral Suspension 1 GM/10 ML ORAL.SUSP PO (07:42)
[2024-05-09] MEDS: Magnesium Oxide 400 MG TABLET PO (07:43)
[2024-05-09] MEDS: buPROPion HCl XL 150 MG TAB.ER.24H PO (07:43)
[2024-05-09] MEDS: Thiamine HCL 100 MG TABLET PO (07:43)
[2024-05-09] MEDS: Losartan Potassium 50 MG TABLET PO (07:43)
[2024-05-09] MEDS: PHENobarbitaL 30 MG TABLET PO (07:43)
[2024-05-09] MEDS: Folic Acid 1 MG TABLET PO (07:43)
[2024-05-09] MEDS: Escitalopram Oxalate 20 MG TABLET PO (07:43)
[2024-05-09 07:48] VITALS: BP 185/98; PULSE 63; RESP 16; TEMP 36.1; O2SAT 97
[2024-05-09 09:15] VITALS: BP 180/90
[2024-05-09] MEDS: traMADoL HCL 50 MG TABLET 25 MG PO (09:27)
[2024-05-09] MEDS: Magnesium Sulfate/H2O 2 GM/50 ML PIGGYBACK IV (09:28)
--- NOTE | 2024-05-09 10:43 | PM.DS ---
DS: Providers Provider Date of Service: 05/09/24 Date of admission: 05/06/24 05:11 Primary care physician: Ayala Patton MD Consults: 05/06/24 08:27 Addiction Medicine Routine Consulting Provider: Addiction Covering Reason for consultation: Alcohol Misuse, Desires to Quit DS: Diagnosis Discharge Diagnosis (1) Diverticulitis: Status: Acute (2) Elevated lactic acid level: Status: Acute (3) Acute alcoholic pancreatitis: Status: Acute (4) Hypomagnesemia: Status: Acute (5) Hypertensive emergency: Status: Acute (6) Increased anion gap metabolic acidosis: Status: Acute (7) Acute hypokalemia: Status: Acute (8) Hypertension: Status: Acute DS: Summary Hospital Course Hospital Course: Admission note HPI The patient is a 48-year-old female with a past medical history of alcohol abuse, ? alcohol withdrawal seizures, hepatitis-C s/p? outpatient treatment,? pancreatic sufficiency, hypertension, GERD who presented to the emergency department with complaints of lower extremity edema. ? Patient reported last drink was before she came to the hospital ?On arrival to emergency department? patient?s vital signs stable,? laboratory data? initially showing slight decrease in potassium to 3.1 and magnesium 1.3. ? Later throughout the night, patient patient? reported worsening abdominal pain, repeat labs showing potassium 2.5, serum bicarb 8, anion gap 32, lipase 945. Vbg:? 7.49/43/65/34.? Her blood pressure became elevated to systolic over 200s despite administration of labetalol and pain medication.? ?Abdominal CT concerning for pancreatitis.?Patient received 3 L? bolus, potassium 60 mEq p.o., magnesium 2 g, bicarb IV push, losartan 50 mg,? Ativan 2 mg? IV.? Patient will be admitted to ICU for? hemodynamically? management of acute pancreatitis with alcohol ketoacidosis as well as hypertensive emergency Hospital course The patient was admitted for treatment of Acute Pancreatitis complicated with metabolic acidosis and electrolytes imbalance requiring ICU placement for close monitoring. Treated with IV fluids, nausea meds and advancing diet as tolerated with good response. pain was fairly controlled with morphine as her diet was upgraded to regular with good tolerance. For the anion gap metabolic acidosis, electrolyte imbalance likely?d/t lactic acid, ketoacidosis all resolved with IV fluids. She was kept on CIWA protocol and started on phenobarbital with consult placed to addiciton medicine who supported her with outpatient resources. kept on Thiamine and Folic acid. She had elevated HTN readings while on her home medications of metoprolol, losartan with addition of PRN Clonidine. Treated for Acute diverticulitis as showed on CT scan with IV Zosyn. blood cultures remained negative. diarrhea resolved. she will be discharged on 3 more days of Augmentin. acute hypomagnesemia treated by giving replacement IV and PO. to be discharged on PO Magnesium. Discharge plan Advance your diet slowly over the next few days Continue Augmentin as prescribed Drink plenty of fluids Avoid alcohol Take your daily supplements and magnesium Time Attestation Discharge Coordination Time (in mins): 37 Quality: Safe Use of Opioids Does Pt have an Active Cancer Diagnosis on the Problem List?: No Quality: Stroke Does the patient have a stroke diagnosis?: No Physical Exam Vital Signs: Vital Signs: Last Vital Signs Temp 96.9 F 05/09/24 07:48 Pulse 63 05/09/24 07:48 Resp 16 05/09/24 07:48 BP 180/90 H 05/09/24 09:15 Pulse Ox 97 05/09/24 07:48 O2 Del Method Room Air 05/09/24 07:48 BMI result Body Mass Index 22.5 Const: Other: Constitutional : Awake, interactive, not in distress Neck : Normal inspection, Supple Cardiovascular : RRR, no JVP, no lower extremity edema Respiratory : good bilateral air entry, no crackles, wheezes or rhonchi Gastrointestinal: soft, lax, Normal bowel sounds, no tenderness Skin : Warm, Dry Neurological : Alert & oriented x3, No focal deficit DS: Data Data Completed and Pending Completed studies during hospitalization [Text1]: Procedures Detoxification Services for Substance Abuse Treatment (02/25/24) Labs on day of discharge: Laboratory Results - last 24 hr 05/09/24 05:13 WBC 5.3 RBC 2.84 L Hgb 10.2 L Hct 30.4 L MCV 107.0 H MCH 35.9 H MCHC 33.6 RDW 16.6 H Plt Count 75 L MPV 11.4 Immature Gran % (Auto) 0.4 Neut % (Auto) 58.7 Lymph % (Auto) 31.6 [place] % (Auto) 4.7 Eos % (Auto) 3.8 Baso % (Auto) 0.8 Lymph # (Auto) 1.7 [place] # (Auto) 0.3 Eos # (Auto) 0.2 Baso # (Auto) 0.0 Abs Immat Gran (auto) 0.02 Absolute Neuts (auto) 3.1 Absolute Nucleated RBC 0.020 H Nucleated RBC % (auto) 0.4 H Sodium 139 Potassium 3.7 Chloride 101 Carbon Dioxide 29 Anion Gap 13 BUN 6 L Creatinine 0.55 Estim Creat Clear Calc 97.8 Estimated GFR > 60 Random Glucose 118 H Calcium 8.8 Phosphorus 3.8 Magnesium 1.5 L Preliminary micro results at discharge 05/06/24 03:42 Blood Culture - Preliminary Blood - Venous No growth after 48 hours. 05/06/24 03:41 Blood Culture - Preliminary Blood - Venous No growth after [address] scan - abdomen: Radiologist's impression: ITS Impressions Abdomen/Pelvis CT 05/06/24 04:35 IMPRESSION: CT findings suspicious for descending colonic diverticulitis. Mild peripancreatic head stranding could represent mild pancreatitis, correlate with laboratory values. Adjacent duodenal wall thickening may be reactive. Gastric wall thickening, possibly reactive, gastritis not excluded. Mild gallbladder wall thickening without other signs of acute cholecystitis. Interval appearing hepatic hypodensities. Consider ultrasound. Fleischner guidelines were followed. Abdomen Ultrasound 05/06/24 10:13 IMPRESSION: Enlarged pancreatic body with visualization of 3 mm pancreatic duct. Together with CT findings, suspect pancreatitis. Enlarged fatty liver. Discharge Plan Discharge Anticipated Discharge Date/Time: 05/09/24 10:29 Patient Disposition: Home, Self-Care Discharge Diagnosis: Alcoholic pancreatitis Electrolytes imbalance Referrals: [facility] [Other] - 06/06/24 10:30 am (Appt 06/06/24 at 10:30AM) Ayala Patton MD [Primary Care Provider] - 1 Week Discharge Medications: New ondansetron 4 mg tablet,disintegrating 4 mg PO Q8H PRN (Reason: nausea and vomiting) Qty: 20 0RF amoxicillin-pot clavulanate 875-125 mg tablet 1 tab PO BID Qty: 6 0RF Continued sucralfate 100 mg/mL suspension 10 ml PO QID Rx Instructions: swish in mouth and swallow; use after food/drink thiamine mononitrate (vit B1) 100 mg tablet 100 mg PO DAILY losartan 50 mg tablet 50 mg PO DAILY trazodone 100 mg tablet 100 mg PO BEDTIME pantoprazole 40 mg tablet,delayed release (DR/EC) 40 mg PO DAILY@0630 folic acid 1 mg tablet 1 mg PO DAILY hydroxyzine HCl 25 mg tablet 25 mg PO TID PRN (Reason: anxiety) cholecalciferol (vitamin D3) 50 mcg (2,000 unit) tablet 50 mcg PO DAILY metoprolol succinate 25 mg tablet extended release 24 hr 100 mg PO DAILY clonidine HCl 0.1 mg tablet 0.1 mg PO TID PRN (Reason: Anxiety) citalopram 40 mg tablet 40 mg PO DAILY cyanocobalamin (vitamin B-12) 1,000 mcg tablet 1,000 mcg PO DAILY bupropion HCl 150 mg tablet extended release 24 hr 150 mg PO DAILY calcium carbonate [Oyster Shell Calcium 500] 500 mg calcium (1,250 mg) Tablet 500 mg PO DAILY Qty: 30 0RF magnesium oxide 400 mg (241.3 mg magnesium) tablet 400 mg PO BID Qty: 60 0RF ondansetron 4 mg tablet,disintegrating 4 mg PO Q8H PRN (Reason: nausea and vomiting) Qty: 30 0RF Discharge Orders: Discharge Order (Routine); Ordered 05/09/24 Ordered By: Inge Cleaning Diet: Advance to usual diet Activity on Discharge: As tolerated Stand Alone Forms: Patient Portal Discharge page Print Language: Lithuanian Care Plan Goals: Advance your diet slowly over the next few days Continue Augmentin as prescribed Drink plenty of fluids Avoid alcohol Take your daily supplements and magnesium Health Concerns: Read below Plan of Treatment: Read below Assessment: Read below
--- NOTE | 2024-05-09 10:46 | MHC.CM.PN ---
DP: PT HAS BEEN MEDICALLY CLEARED FOR DC HOME, NO SERVICES. SON WILL TRANSPORT HOME
[2024-05-09 10:50] VITALS: BP 180/90
[2024-05-09] MEDS: cloNIDine HCL 0.1 MG TABLET PO (10:50)
[2024-05-09 12:48] VITALS: BP 150/70
== END 2024-05-09 13:19 | disposition home or self-care (01) | DRG 282 ==
LOC: HO.ED 05-06 05:03 → HO.EDOVER 05-06 05:16 → HO.ICU 05-06 05:56 → HO.S3 05-07 11:21
PROVIDERS: Internal Medicine; Internal Medicine Critical Care Medicine; Admitting Provider Registered Nurse Community Health; Emergency Provider Emergency Medicine; PCP Internal Medicine; Visit Provider Student in an Organized Health Care Education/Training Program
DX: K85.20 Alcohol induced acute pancreatitis without necrosis or infection (principal); E87.29 Other acidosis; E83.42 Hypomagnesemia; F17.210 Nicotine dependence, cigarettes, uncomplicated; E87.6 Hypokalemia; F10.20 Alcohol dependence, uncomplicated; K57.32 Diverticulitis of large intestine without perforation or abscess without bleeding; I16.1 Hypertensive emergency; Z71.6 Tobacco abuse counseling; Z79.899 Other long term (current) drug therapy
CPT/HCPCS: 36415; 74177; 76705; 80048; 80053; 80307; 82010; 82248; 82803; 83605; 83690; 83735; 83880; 84100; 84702; 85025; 85027; 87040; 87147; 87205; 99285; J0613; J1650; J1920; J2060; J2270; J2405; J2543; J2560; J3411; J3475; J3480; J7120; Q9967

== ENCOUNTER → 2024-05-06 05:11 | Outpatient (BNV) | payer OTHER, SELFPAY | PROVIDERS: Admitting Provider Registered Nurse Community Health; Emergency Provider Emergency Medicine; PCP Internal Medicine; Visit Provider Registered Nurse Community Health | DX: K85.20 Alcohol induced acute pancreatitis without necrosis or infection (principal); F10.20 Alcohol dependence, uncomplicated; K57.92 Diverticulitis of intestine, part unspecified, without perforation or abscess without bleeding; I10 Essential (primary) hypertension | CPT/HCPCS: 99233; 99291 ==

== ENCOUNTER → 2024-05-06 05:11 | Outpatient (BNV) | payer OTHER, SELFPAY | PROVIDERS: Admitting Provider Registered Nurse Community Health; Emergency Provider Emergency Medicine; PCP Internal Medicine; Visit Provider Student in an Organized Health Care Education/Training Program | DX: K57.92 Diverticulitis of intestine, part unspecified, without perforation or abscess without bleeding (principal); R79.89 Other specified abnormal findings of blood chemistry; K85.20 Alcohol induced acute pancreatitis without necrosis or infection; E83.42 Hypomagnesemia; I16.1 Hypertensive emergency; E87.29 Other acidosis; E87.6 Hypokalemia; I10 Essential (primary) hypertension | CPT/HCPCS: 99232; 99239 ==

== ENCOUNTER 2024-05-23 13:59 | Emergency (ER) | payer OTHER, SELFPAY ==
--- NOTE | ~2024-05-23 | XR_ITS ---
EXAMINATION: XR CHEST CLINICAL INFORMATION: Shortness of breath, Covid exposure COMPARISON: Chest x-ray on 01/09/2024 TECHNIQUE: 2 views of the chest were obtained. FINDINGS: No significant abnormality is noted involving the heart, lungs, mediastinum, bony thorax or soft tissues. XR/XR chest 2V IMPRESSION: Unremarkable examination.
[2024-05-23 14:15] VITALS: BP 153/92; PULSE 76; RESP 18; TEMP 36.1; O2SAT 96; BMI 21.8
--- NOTE | 2024-05-23 14:17 | ED.GENADULT ---
HPI - General Adult General Chief complaint: Weakness Stated complaint: exposed to Covid, weakness, vomiting Time Seen by Provider: 05/23/24 17:42 Source: patient, RN notes reviewed and old records reviewed Mode of arrival: ambulatory Limitations: no limitations History of Present Illness ED Provider: Kathy HPI narrative: 48-year-old female with past medical history significant for alcohol abuse, hypertension, hypokalemia and hypomagnesemia presents for evaluation of body aches, cough Patient reports that her son had COVID last week. The patient reports waking up this morning with lower body aches, backaches and feeling fatigued. She reports drinking 4 shots of vodka today. She admits to a history of alcohol abuse and electrolyte abnormalities related to alcohol abuse. She reports occasional shortness of breath but denies chest pain The triage note documents the patient was admitting to occasional hallucinations, she denies this to me Related Data Home Medications ?Medication ?Instructions ?Recorded ?Confirmed cholecalciferol (vitamin D3) 50 50 mcg PO DAILY 11/01/23 05/06/24 mcg (2,000 unit) tablet folic acid 1 mg tablet 1 mg PO DAILY 11/01/23 05/06/24 hydroxyzine HCl 25 mg tablet 25 mg PO TID PRN anxiety 11/01/23 05/06/24 losartan 50 mg tablet 50 mg PO DAILY 11/01/23 05/06/24 pantoprazole 40 mg tablet,delayed 40 mg PO DAILY@0630 11/01/23 05/06/24 release trazodone 100 mg tablet 100 mg PO BEDTIME 11/01/23 05/06/24 clonidine HCl 0.1 mg tablet 0.1 mg PO TID PRN Anxiety 12/10/23 05/06/24 metoprolol succinate 25 mg 100 mg PO DAILY 12/10/23 05/06/24 tablet,extended release 24 hr bupropion HCl 150 mg 24 hr tablet, 150 mg PO DAILY 02/26/24 05/06/24 extended release citalopram 40 mg tablet 40 mg PO DAILY 02/26/24 05/06/24 cyanocobalamin (vitamin B-12) 1,000 mcg PO DAILY 02/26/24 05/06/24 1,000 mcg tablet sucralfate 100 mg/mL oral 10 ml PO QID 07/09/24 07/09/24 suspension thiamine mononitrate (vit B1) 100 100 mg PO DAILY 05/06/24 05/06/24 mg tablet Previous Rx's ?Medication ?Instructions ?Recorded ondansetron 4 mg disintegrating 4 mg PO Q8H PRN nausea and 12/06/23 tablet vomiting #30 tabs calcium carbonate (Oyster Shell 500 mg PO DAILY #30 tabs 02/29/24 Calcium 500) magnesium oxide 400 mg (241.3 mg 400 mg PO BID #60 tabs 02/29/24 magnesium) tablet amoxicillin 875 mg-potassium 1 tab PO BID #6 tabs 05/09/24 clavulanate 125 mg tablet ondansetron 4 mg disintegrating 4 mg PO Q8H PRN nausea and 05/09/24 tablet vomiting #20 tabs Allergies Allergy/AdvReac Type Severity Reaction Status Date / Time No Known Allergies Allergy Verified 05/23/24 14:21 Review of Systems Constitutional: Constitutional: Reports body ache(s), Reports chills, Reports fever(s), Reports headache(s), Reports lethargy, Reports malaise and Reports weakness Eyes: Eyes: Denies blurry vision ENT: Denies vertigo, Denies dizziness and Reports headache(s) Cardiovascular: Cardiovascular: Denies chest pain and Reports dyspnea Respiratory: Respiratory: Reports cough and Reports dyspnea Gastrointestinal: Gastrointestinal: Denies abdominal pain, Denies nausea and Denies vomiting Musculoskeletal: Musculoskeletal: Reports back pain and Reports muscle weakness Integumentary/Breasts: Skin/Breast: Denies rash Neurologic: Denies vertigo, Denies dizziness, Reports headache(s) and Reports weakness PMFSH Past Medical History Medical History Alcohol use disorder Pancreatic insufficiency Gastroesophageal reflux disease Essential hypertension Mood disorder Cannabis use disorder Hepatitis C Tobacco use disorder Social History Social History Household Members: Family Housing: House Do you presently have visiting nurse or other home services: No Alcohol intake: current Alcohol intake frequency: 3 or more drinks per day Alcohol type: hard liquor Comment: refused bed alarm Patient Tobacco Use Status: Current someday Tobacco user Tobacco use type: Cigarette Cigarettes Per Day: 10 Smoked in Last 30 Days: Yes e-Cigarette/Vaping Use: Currently Using Second Hand Smoke Exposure: No Use of substances other than those prescribed or required for medical reasons: Yes Substance Use Type: Marijuana Substance Use Frequency: Daily Advance Directives: Yes Advance Directives on File: Yes Advance Directives Date on File: 12/10/23 Do you have a plan to hurt others: No Plan Patient : No service: No Physical Exam ED Vital Signs: Vital Signs - 24 hr 05/23/24 14:15 05/23/24 18:39 05/23/24 20:26 Temperature 97 F 98.9 F Pulse Rate 76 72 75 Respiratory Rate 18 16 6 L Blood Pressure 153/92 H 178/106 H 173/90 H Pulse Oximetry 96 95 96 Oxygen Delivery Method Room Air Room Air Room Air 05/23/24 22:25 05/24/24 00:50 Temperature Pulse Rate 86 75 Respiratory Rate 12 14 Blood Pressure 145/76 H 174/87 H Pulse Oximetry 95 95 Oxygen Delivery Method Room Air Room Air BMI result Body Mass Index 21.8 Const General: healthy appearing, comfortable, no acute distress, alert and awake Nutritional Appearance: well nourished Orientation/consciousness: patient oriented x3 HENMT Head: Yes normocephalic and Yes atraumatic Eyes Eyelids: Yes eyelids normal Conjunctivae: conjunctivae normal Sclerae: sclerae normal Corneas: corneas normal Pupils: Equal, round and reactive pupils present EOM: EOMs intact bilaterally Neck Neck: Yes full ROM Resp Effort & Inspection: normal respiratory effort, able to speak in complete sentences, no audible wheezes and not labored Auscultation: clear to auscultation bilaterally Cardio Rate: regular rate Rhythm: regular rhythm GI Inspection: No distended Palpation (GI): Soft to palpation, not firm, nontender, no guarding and not rigid Skin General skin exam: elasticity normal Neuro General: patient oriented x3 Cranial nerves: Yes Equal, round and reactive pupils present and Yes Bilaterally intact EOM present Cognition (Neuro): normal cognition Extrem Other: Moving all extremities well without any obvious deformities Course Course Course Narrative: This is a Rapid Medical Examination (RME) performed by Vishal Maria PA-C in triage. Full HPI, ROS, assessment and treatment plan per primary provider in the Main ED. 48 yo female hx of HTN, etoh use disorder, mood disorder, cannabis use disorder, tobacco dependence here w/ generalized weakness, myalgias, cough, SOB, sore throat, nausea and one episode of vomiting this morning. endorses exposure to covid 1 week ago. did not test herself for covid at home. reports hx of magnesium deficiency secondary to etoh abuse. has been out of her magnesium supplements. Admits to 6 shots of vodka daily. endorses taking 4 shots today. patient tells me she has been out of all of her home medications x1 mo. has called her PCP regarding this and is unsure why they are not filling her prescriptions. denies chest pain, palpitations, fever, chills. Plan: labs, cxr, viral testing Medications Administered Discontinued Medications Generic Name Dose Route Start Last Admin Trade Name Frechristianne PRN Reason Stop Dose Admin Cyclobenzaprine HCl 10 mg 05/23/24 20:36 05/23/24 20:52 Cyclobenzaprine Hcl 10 Mg Tablet PO 05/23/24 20:37 10 mg ONCE ONE Administration Potassium Chloride/Sodium Chloride 20 meq in 1,000 mls @ 250 mls/hr 05/23/24 18:00 05/24/24 01:04 Kcl 20 Meq In 0.9 % Sodium Chl IVCONT Infused .Q4H SAMANTHA Infusion Magnesium Sulfate 2 gm in 50 mls @ 25 mls/hr 05/23/24 17:59 05/23/24 20:30 Magnesium Sulfate/H2o IV 05/23/24 19:58 Infused ONCE ONE Infusion Potassium Chloride/Sodium Chloride 20 meq in 1,000 mls @ 250 mls/hr 05/23/24 21:44 05/23/24 21:53 Kcl 20 Meq In 0.9 % Sodium Chl IVCONT 05/24/24 01:03 Not Given .Q4H ONE Lorazepam 1 mg 05/23/24 20:36 05/23/24 20:52 Lorazepam 2 Mg/Ml Vial IVPUSH 05/23/24 20:37 1 mg ONCE ONE Administration Ondansetron HCl 4 mg 05/23/24 19:33 05/23/24 19:39 Ondansetron Hcl 4 Mg/2 Ml Vial IVPUSH 05/23/24 19:34 4 mg ONCE ONE Administration Potassium Chloride 40 meq 05/23/24 17:59 05/23/24 18:28 Potassium Chloride Er 20 Meq Tab.Er.Prt PO 05/23/24 18:00 40 meq ONCE ONE Administration Medical Decision Making Medical Decision Making MDM Narrative: 48-year-old female with past medical history as documented above presents for evaluation of flu-like symptoms. She is in fact COVID positive. Missed explains her cough and occasional shortness of breath. The patient's potassium and magnesium were both low and will be replenished. She has mild transaminitis which is likely related to her heavy alcohol abuse. The patient's alcohol level was 220, she is not in any severe withdrawals at this time. Differential Diagnosis Differential Diagnoses: The differential diagnosis associated with the presentation includes Alcohol abuse Alcohol withdrawal Hypokalemia Hypomagnesemia COVID-19 Influenza Lab Data [facility] Lab Attestation statement: I reviewed the patient's lab results. No leukocytosis. The patient does have a chronic anemia but is actually improved compared to her baseline. A normal platelet count. Potassium magnesium are both low as documented above. Sodium is within normal limits, renal function within normal limits, mild transaminitis as documented above 05/23/24 14:43 05/23/24 14:43 Labs: Lab Results 05/23/24 Range/Units 14:43 WBC 6.2 (4.8-10.8) X10*3/uL RBC 3.50 L D (4.20-5.50) X10*6/uL Hgb 12.5 D (12.0-16.0) g/dl Hct 34.5 L (37.0-47.0) % MCV 98.6 H (80.0-98.0) fL MCH 35.7 H (27.0-33.0) pg MCHC 36.2 H (31.0-35.0) g/dl RDW 14.4 (11.0-16.0) % Plt Count 225 D (160-400) X10*3/uL MPV 9.6 (9.4-12.3) fL Immature Gran % (Auto) 0.3 (0.0-0.4) % Neut % (Auto) 58.9 (45-73) % Lymph % (Auto) 34.0 (20-40) % [place] % (Auto) 5.5 (2-11) % Eos % (Auto) 0.5 (0-4) % Baso % (Auto) 0.8 (0-2) % Lymph # (Auto) 2.1 (1.2-4.9) X10*3/uL [place] # (Auto) 0.3 (0.1-1.2) X10*3/uL Eos # (Auto) 0.0 (0.0-0.4) X10*3/uL Baso # (Auto) 0.1 (0.0-0.2) X10*3/uL Abs Immat Gran (auto) 0.02 (0.00-0.03) X10*3/uL Absolute Neuts (auto) 3.6 (2.0-8.3) x10*3/uL Absolute Nucleated RBC 0.000 (0.0-0.012) X10*3/uL Nucleated RBC % (auto) 0.0 (0.0-0.2) /100WBC Sodium 142 (135-145) mmol/L Potassium 2.9 L* D (3.3-5.1) mmol/L Chloride 105 (96-108) mmol/L Carbon Dioxide 21 L (22-29) mmol/L Anion Gap 19 (12-20) BUN 13 (9-16) mg/dL Creatinine 0.64 (0.5-1.4) mg/dL Estim Creat Clear Calc 87.9 Estimated GFR > 60 Random Glucose 108 (60-115) mg/dL Calcium 8.7 (8.4-10.2) mg/dL Magnesium 1.2 L* (1.6-2.6) mg/dL Total Bilirubin 0.4 (0.0-1.0) mg/dL AST 91 H (5-31) U/L ALT 41 H (0-31) U/L Alkaline Phosphatase 130 H (39-117) U/L Total Protein 6.8 (6.5-8.0) g/dL Albumin 4.0 (3.5-5.0) g/dL Lipase 24 (8-78) U/L Ethyl Alcohol 220 mg/dL Influenza Type A (PCR) NEGATIVE (Negative) Influenza Type B (PCR) NEGATIVE (Negative) RSV RNA Qual (PCR) NEGATIVE (Negative) SARS-CoV-2 RNA (RT-PCR) POSITIVE A (Negative) Discharge Plan Discharge Clinical Impression: Alcohol use disorder, Acute hypokalemia, Hypomagnesemia, COVID-19 Patient Disposition: Home, Self-Care Instructions: Hypokalemia (ED), Abuse of Alcohol (ED), Hypomagnesemia (ED) Additional Instructions: Avoid excessive consumption of alcohol Follow-up with your primary doctor, return for new or worsening symptoms You tested positive for COVID-19 Your potassium and magnesium were low today and these were repleted You should have repeat labs next work at your primary doctor Prescriptions: No Action sucralfate 100 mg/mL suspension 10 ml PO QID Rx Instructions: swish in mouth and swallow; use after food/drink thiamine mononitrate (vit B1) 100 mg tablet 100 mg PO DAILY ondansetron 4 mg tablet,disintegrating 4 mg PO Q8H PRN (Reason: nausea and vomiting) Qty: 20 0RF amoxicillin-pot clavulanate 875-125 mg tablet 1 tab PO BID Qty: 6 0RF losartan 50 mg tablet 50 mg PO DAILY trazodone 100 mg tablet 100 mg PO BEDTIME pantoprazole 40 mg tablet,delayed release (DR/EC) 40 mg PO DAILY@0630 folic acid 1 mg tablet 1 mg PO DAILY hydroxyzine HCl 25 mg tablet 25 mg PO TID PRN (Reason: anxiety) cholecalciferol (vitamin D3) 50 mcg (2,000 unit) tablet 50 mcg PO DAILY metoprolol succinate 25 mg tablet extended release 24 hr 100 mg PO DAILY clonidine HCl 0.1 mg tablet 0.1 mg PO TID PRN (Reason: Anxiety) citalopram 40 mg tablet 40 mg PO DAILY cyanocobalamin (vitamin B-12) 1,000 mcg tablet 1,000 mcg PO DAILY bupropion HCl 150 mg tablet extended release 24 hr 150 mg PO DAILY calcium carbonate [Oyster Shell Calcium 500] 500 mg calcium (1,250 mg) Tablet 500 mg PO DAILY Qty: 30 0RF magnesium oxide 400 mg (241.3 mg magnesium) tablet 400 mg PO BID Qty: 60 0RF ondansetron 4 mg tablet,disintegrating 4 mg PO Q8H PRN (Reason: nausea and vomiting) Qty: 30 0RF Print Language: Vietnamese
--- NOTE | 2024-05-23 14:22 | ECG_ITS ---
Test Reason : weakness Blood Pressure : / mmHG Vent. Rate : 073 BPM Atrial Rate : 073 BPM P-R Int : 154 ms QRS Dur : 090 ms QT Int : 410 ms P-R-T Axes : 063 025 041 degrees QTc Int : 451 ms Normal sinus rhythm Nonspecific ST abnormality Abnormal ECG When compared with ECG of 25-FEB-2024 22:59, ST no longer depressed in Anterior leads QT has shortened Referred By: Angeline Maria Electronically Signed By:MIKA JENNINGS
[2024-05-23 14:52] LABS: MANUAL DIFF FLAG NO
[2024-05-23 14:54] LABS: Basophils Absolute Auto 0.1 X10*3/uL (0.0-0.2); Basophils Percent Auto 0.8 % (0-2); Eosinophils Percent Auto 0.5 % (0-4); Hematocrit 34.5 % (37.0-47.0); Hemoglobin 12.5 g/dl (12.0-16.0); Imm Gran Abs Auto 0.02 X10*3/uL (0.00-0.03); Imm Gran Pct Auto 0.3 % (0.0-0.4); Lymphocytes Absolute Auto 2.1 X10*3/uL (1.2-4.9); Mean Corpuscular HGB Conc 36.2 g/dl (31.0-35.0); Mean Corpuscular Hemoglobin 35.7 pg (27.0-33.0); Mean Corpuscular Volume 98.6 fL (80.0-98.0); Mean Platelet Volume 9.6 fL (9.4-12.3); Monocytes Absolute Auto 0.3 X10*3/uL (0.1-1.2); Monocytes Percent Auto 5.5 % (2-11); Neutrophils Absolute Auto 3.6 x10*3/uL (2.0-8.3); Neutrophils Percent Auto 58.9 % (45-73); Platelet Count 225 X10*3/uL (160-400); Red Cell Distribution Width 14.4 % (11.0-16.0); White Blood Count 6.2 X10*3/uL (4.8-10.8)
[2024-05-23 15:04] LABS: Ethanol 220 mg/dL
[2024-05-23 15:13] LABS: Alanine Aminotransferase 41 U/L (0-31); Alkaline Phosphatase 130 U/L (39-117); Anion Gap 19 (12-20); Aspartate Amino Transferase 91 U/L (5-31); Bilirubin Total 0.4 mg/dL (0.0-1.0); Blood Urea Nitrogen 13 mg/dL (9-16); Calcium 8.7 mg/dL (8.4-10.2); Carbon Dioxide 21 mmol/L (22-29); Chloride 105 mmol/L (96-108); Creatinine Clr Calc Pharmacy 87.9; Estimated Glomerular Filt Rate > 60; Glucose Random 108 mg/dL (60-115); Lipase 24 U/L (8-78); Sodium 142 mmol/L (135-145); Total Protein 6.8 g/dL (6.5-8.0)
[2024-05-23 15:15] LABS: Magnesium 1.2 mg/dL (1.6-2.6); Potassium 2.9 mmol/L (3.3-5.1)
[2024-05-23 15:31] LABS: Influenza A PCR NEGATIVE (Negative); Influenza B PCR NEGATIVE (Negative); Resp Syncy Virus RNA Qual PCR NEGATIVE (Negative); SARS COV2 PCR INHOUSE POSITIVE (Negative)
--- NOTE | 2024-05-23 18:20 | PC.NURSE ---
Pt. on crester at this time.
[2024-05-23] MEDS: Magnesium Sulfate/H2O 2 GM/50 ML PIGGYBACK IV (18:28)
[2024-05-23] MEDS: Potassium Chloride ER 20 MEQ TAB.ER.PRT 40 MEQ PO (18:28)
[2024-05-23 18:39] VITALS: BP 178/106; PULSE 72; RESP 16; O2SAT 95
--- NOTE | 2024-05-23 18:40 | PC.NURSE ---
Awaiting 18:00 Potassium order per pharmacy.
--- NOTE | 2024-05-23 19:30 | PC.NURSE ---
Patient reports nausea with 1 episode of vomiting around 18:30. Colt, ED provider notified, verbal order received for Zofran 4 mg IV push.
[2024-05-23] MEDS: ondansetron HCL 4 MG/2 ML VIAL IVPUSH (19:39)
[2024-05-23 20:26] VITALS: BP 173/90; PULSE 75; RESP 6; TEMP 37.2; O2SAT 96
[2024-05-23] MEDS: LORazepam 2 MG/ML VIAL 1 MG IVPUSH (20:52)
[2024-05-23] MEDS: Cyclobenzaprine HCl 10 MG TABLET PO (20:52)
[2024-05-23] MEDS: KCl 20 mEq in 0.9 % Sodium ChL 20 MEQ/1,000 ML IV.SOLN 250 MEQ IVCONT (21:04)
[2024-05-23 22:25] VITALS: BP 145/76; PULSE 86; RESP 12; O2SAT 95
[2024-05-24 00:50] VITALS: BP 174/87; PULSE 75; RESP 14; O2SAT 95
[2024-05-24 02:07] VITALS: BP 190/106; PULSE 83; RESP 14; O2SAT 97
[2024-05-24 03:22] VITALS: BP 178/91; PULSE 79; RESP 16; TEMP 37.1; O2SAT 97
== END 2024-05-24 03:26 | disposition home or self-care (01) ==
PROVIDERS: Physician Assistant Medical; Emergency Provider Internal Medicine; PCP Internal Medicine
DX: U07.1 COVID-19 (principal); F10.10 Alcohol abuse, uncomplicated; Y90.7 Blood alcohol level of 200-239 mg/100 ml; E87.6 Hypokalemia; E83.42 Hypomagnesemia; R06.02 Shortness of breath; R11.2 Nausea with vomiting, unspecified; R51.9 Headache, unspecified
CPT/HCPCS: 0241U; 36415; 71046; 80053; 80307; 83690; 83735; 85025; 93005; 96365; 96366; 96367; 96375; 99285; J2060; J2405; J3475; J3480

== ENCOUNTER → 2024-05-23 14:22 | Outpatient (BNV) | payer OTHER, SELFPAY | PROVIDERS: PCP Internal Medicine; Visit Provider Internal Medicine | DX: R94.31 Abnormal electrocardiogram [ECG] [EKG] (principal) | CPT/HCPCS: 93010 ==

== ENCOUNTER 2024-06-07 17:01 | Inpatient (IN) | payer OTHER, SELFPAY ==
--- NOTE | ~2024-06-07 | XR_ITS ---
EXAMINATION: XR CHEST CLINICAL INFORMATION: Cough COMPARISON: 05/23/2024 TECHNIQUE: Frontal view of the chest was obtained. FINDINGS: No significant abnormality is noted involving the heart, lungs, mediastinum, bony thorax or soft tissues. XR/XR chest 1V IMPRESSION: Unremarkable examination.
--- NOTE | ~2024-06-07 | CT_ITS ---
EXAMINATION: CT ABDOMEN AND PELVIS WITH CONTRAST CLINICAL INFORMATION: Abdominal pain, nausea vomiting, history COMPARISON: 05/06/2024 TECHNIQUE: Multidetector volumetric images were obtained from the superior aspect of the liver through the pubic symphysis following administration 85 mL of Omnipaque 350 intravenous contrast. Sagittal and coronal reformatted images were obtained on the technologist's workstation. Oral contrast: No This CT examination was performed using dose optimization techniques as appropriate, variously including the following: *Automated exposure control *Adjustment of mA and/or kV according to patient size (this includes techniques or standardized protocols for targeted exams where dose is matched to indication/reason for exam; i.e. extremities or head) *Use of iterative reconstruction technique DLP: 384 mGy-cm FINDINGS: LUNG BASES: Unremarkable. ABDOMINAL AND PELVIC WALL: Unremarkable. LIVER AND BILIARY TREE: Hepatic steatosis. Multiple hepatic hypoattenuating subcentimeter lesions are too small to characterize but remain unchanged. GALLBLADDER: Unremarkable. PANCREAS: Unremarkable. SPLEEN: Unremarkable. ADRENAL GLANDS: Unremarkable. KIDNEYS AND URETERS: Unremarkable. GASTROINTESTINAL TRACT: Focal thickening and stranding of the distal rectosigmoid colon with mildly prominent vasa recta. There is scattered colonic diverticulosis without discrete evidence of diverticulitis. Sagittal infiltration of the ileocecal valve. Appendix is within normal limits. VASCULAR: Unremarkable. LYMPH NODES/PERITONEUM: No lymphadenopathy. FREE FLUID: None. BLADDER: Unremarkable. PELVIC VISCERA: Intrauterine device is centered within the endometrium. OSSEOUS STRUCTURES: Degenerative changes of the spine. CT/CT abdomen pelvis w IV con IMPRESSION: * Focal thickening and stranding of the distal rectosigmoid colon with mildly prominent vasa recta. Appearance is favored to reflect colitis, including inflammatory or infectious. Diverticulitis may be considered in the setting of diverticulosis, but is favored to be less likely. * Hepatic steatosis.
[2024-06-07 17:14] VITALS: BP 106/62; PULSE 106; RESP 18; TEMP 36.4; O2SAT 94; BMI 19.8
--- NOTE | 2024-06-07 17:14 | ED_ITS ---
HPI - General Adult General Chief complaint: Nausea/Vomiting/Diarrhea Stated complaint: mag def/not feeling well Time Seen by Provider: 06/07/24 17:55 Source: patient, EMS, RN notes reviewed and old records reviewed Mode of arrival: EMS History of Present Illness ED Provider: Jaqueline Bryson PA-C HPI narrative: 48-year-old female with a past medical history of EtOH abuse, EtOH withdrawal seizures, hepatitis-C, pancreatic insufficiency, HTN, GERD, mood disorder, presenting to ED complaining of myalgias, generalized fatigue, epigastric abdominal pain, nausea, vomiting, diarrhea and inability to tolerate p.o. x 4 days. Also reports brbpr when wiping. Was recently diagnosed with COVID-19 on 05/23. Admits to drinking 6 shots today, is daily drinker, last drink 4 hours [employer]. Reports THC use, denies other illicit drugs. Denies fever, dysuria/hematuria, CP Related Data Home Medications ?Medication ?Instructions ?Recorded ?Confirmed cholecalciferol (vitamin D3) 50 50 mcg PO DAILY 11/01/23 05/06/24 mcg (2,000 unit) tablet folic acid 1 mg tablet 1 mg PO DAILY 11/01/23 05/06/24 hydroxyzine HCl 25 mg tablet 25 mg PO TID PRN anxiety 11/01/23 05/06/24 losartan 50 mg tablet 50 mg PO DAILY 11/01/23 05/06/24 pantoprazole 40 mg tablet,delayed 40 mg PO DAILY@0630 11/01/23 05/06/24 release trazodone 100 mg tablet 100 mg PO BEDTIME 11/01/23 05/06/24 clonidine HCl 0.1 mg tablet 0.1 mg PO TID PRN Anxiety 12/10/23 05/06/24 metoprolol succinate 25 mg 100 mg PO DAILY 12/10/23 05/06/24 tablet,extended release 24 hr bupropion HCl 150 mg 24 hr tablet, 150 mg PO DAILY 02/26/24 05/06/24 extended release citalopram 40 mg tablet 40 mg PO DAILY 02/26/24 05/06/24 cyanocobalamin (vitamin B-12) 1,000 mcg PO DAILY 02/26/24 05/06/24 1,000 mcg tablet sucralfate 100 mg/mL oral 10 ml PO QID 05/06/24 05/06/24 suspension thiamine mononitrate (vit B1) 100 100 mg PO DAILY 05/06/24 05/06/24 mg tablet Previous Rx's ?Medication ?Instructions ?Recorded ondansetron 4 mg disintegrating 4 mg PO Q8H PRN nausea and 12/06/23 tablet vomiting #30 tabs calcium carbonate (Oyster Shell 500 mg PO DAILY #30 tabs 02/29/24 Calcium 500) magnesium oxide 400 mg (241.3 mg 400 mg PO BID #60 tabs 02/29/24 magnesium) tablet amoxicillin 875 mg-potassium 1 tab PO BID #6 tabs 05/09/24 clavulanate 125 mg tablet ondansetron 4 mg disintegrating 4 mg PO Q8H PRN nausea and 05/09/24 tablet vomiting #20 tabs benzonatate 200 mg capsule 200 mg PO TID PRN cough #20 caps 05/24/24 Allergies Allergy/AdvReac Type Severity Reaction Status Date / Time No Known Allergies Allergy Verified 06/07/24 17:17 Review of Systems 2 Review of Systems: Constitutional: No Fever, No Chills ENT/Mouth: No Ear Pain, No Nasal Congestion, No sore throat, + Rhinorrhea, No Swallowing Difficulty Cardiovascular: No Chest Pain, + SOB Respiratory: No Cough, No Sputum, No Wheezing Gastrointestinal:+ Nausea, +Vomiting, +Diarrhea, No Constipation, +Abdominal pain Genitourinary: No Dysuria, No Urinary Frequency, No Hematuria, No Urinary Incontinence/retention, No Urgency, No Flank Pain Musculoskeletal: +joint pain, + Myalgias, No Joint Swelling Skin: No Skin Lesions, No rash Neuro: + Weakness, No Numbness, No Paresthesias Yes all other systems are reviewed and are negative Constitutional: Constitutional: Reports as per [facility] Past Medical History Attestation statement: The following information was validated with the patient. Source: old records reviewed Medical History Hypertension Alcohol use disorder, severe, dependence Alcohol use disorder Pancreatic insufficiency Gastroesophageal reflux disease Essential hypertension Mood disorder Cannabis use disorder Hepatitis C Tobacco use disorder Social History Social History Household Members: Family Housing: House Do you presently have visiting nurse or other home services: No Alcohol intake: current Alcohol intake frequency: 3 or more drinks per day Alcohol type: hard liquor Comment: refused bed alarm Patient Tobacco Use Status: Current everyday Tobacco user Tobacco use type: Cigarette Cigarettes Per Day: 10 e-Cigarette/Vaping Use: Currently Using Second Hand Smoke Exposure: No Substance Use Type: Marijuana Advance Directives Date on File: 12/10/23 service: No Physical Exam ED Vital Signs: Vital Signs - 24 hr 06/07/24 17:14 06/07/24 17:48 06/07/24 18:31 Temperature 97.5 F 97.1 F 98.1 F Pulse Rate 106 H 102 H 97 Respiratory Rate 18 20 15 Blood Pressure 106/62 119/76 144/78 H Pulse Oximetry 94 94 92 Oxygen Delivery Method Room Air Room Air Room Air BMI result Body Mass Index 19.8 Const Other: + EtOH odor on breath General: cooperative and no acute distress Orientation/consciousness: patient oriented x3 HENMT Head: Yes normal to inspection and Yes atraumatic Ears: hearing grossly normal bilaterally General nose exam: Normal external nose present Face and sinus: Yes normal facial exam Eyes General: appearance normal, both eyes and all related structures EOM: EOMs intact bilaterally Neck Neck: Yes normal visual inspection and Yes no meningeal signs Resp Effort & Inspection: normal respiratory effort and no respiratory distress Auscultation: clear to auscultation bilaterally Cardio Rate: regular rate Heart sounds: S1 normal heart sound present and S2 normal heart sound present GI Inspection: Yes normal to inspection Palpation (GI): Soft to palpation, Tenderness to palpation present (GI) in the epigastrum; with no rebound tenderness, no guarding and not rigid Other: refused rectal exam General: Yes no CVA tenderness Back/Spine/Pelvis Back: no CVA tenderness Skin Rashes: no rashes Wounds: no wounds Neuro General: patient oriented x3, tone normal and no meningeal signs Cranial nerves: Yes CN's II-XII intact bilaterally Gait exam (Neuro): Normal gait present Extrem General: Yes normal to inspection Course Course Course Narrative: This is a rapid medical exam performed by Lew Mcgee NP: Additional HPI, ROS, PE not included below will be deferred to primary provider. Patient is a 48-year-old female with history of alcohol use disorder, cannabis use disorder, HTN, pancreatic insufficiency, GERD, mood disorder, hepatitis C presenting to the emergency department with complaint of vomiting, diarrhea and leg pain. Seen here on 05/23 and diagnosed with Covid. States her magnesium and potassium were low at that visit. Plan: EKG, labs -1845--no leukocytosis. H&H at patient's baseline. Potassium low at 3.1 will give p.o. repletion. Magnesium low 1.4 > will give 2 g IV. No anion gap -T bili mildly elevated. Troponin 4.1 -ethanol 243 > no evidence of withdrawal -2004--lactic acidosis of 3.5 > likely alcoholic ketosis rather than severe sepsis XR chest 1V IMPRESSION: Unremarkable examination. -2058--CT abdomen pelvis w IV con IMPRESSION: * Focal thickening and stranding of the distal rectosigmoid colon with mildly prominent vasa recta. Appearance is favored to reflect colitis, including inflammatory or infectious. Diverticulitis may be considered in the setting of diverticulosis, but is favored to be less likely. * Hepatic steatosis. > patient is still complaining of abdominal pain/diffusely tender. Unable to tolerate p.o. >> Plan to admit for further management. Medications Administered Generic Name Dose Route Start Last Admin Trade Name Freq PRN Reason Stop Dose Admin Enoxaparin Sodium 40 mg 06/07/24 22:00 06/07/24 21:47 Enoxaparin Sodium 40 Mg/0.4 Ml Syringe SUBCUT 40 mg Q24H SAMANTHA Administration Morphine Sulfate 2 mg 06/08/24 00:48 06/08/24 01:14 Morphine Sulfate 2 Mg/Ml Cartridge IVPUSH 2 mg Q4H PRN Administration Pain, Severe (Pain Scale 7-10) Protocol Phenobarbital Sodium 157 mg 06/08/24 01:00 06/08/24 01:13 Phenobarbital Sodium 130 Mg/Ml Vial Im Q3hx2 IM 06/08/24 04:01 157 mg Q3H SAMANTHA Administration Sodium Chloride 3 ml 06/08/24 00:00 06/08/24 01:14 0.9 % Sodium Chloride Flush 3 Ml Syringe IVFLUSH 3 ml QSHIFT SAMANTHA Administration Discontinued Medications Generic Name Dose Route Start Last Admin Trade Name Freq PRN Reason Stop Dose Admin Famotidine 20 mg 06/07/24 18:26 06/07/24 18:43 Famotidine/Pf 20 Mg/2 Ml Vial IVPUSH 06/07/24 18:27 20 mg ONCE ONE Administration Sodium Chloride 1,000 mls @ 999 mls/hr 06/07/24 18:15 06/07/24 19:57 Ns IV 06/07/24 19:15 Infused .Q1H1M SAMANTHA Infusion Lactated Ringer's 1,000 mls @ 999 mls/hr 06/07/24 18:30 06/07/24 20:00 Lr IV 06/07/24 19:30 Infused .Q1H1M SAMANTHA Infusion Magnesium Sulfate 2 gm in 50 mls @ 25 mls/hr 06/07/24 18:38 06/07/24 20:45 Magnesium Sulfate/H2o IV 06/07/24 20:37 Infused ONCE ONE Infusion Piperacillin Sod/Tazobactam 50 mls @ 100 mls/hr 06/07/24 20:57 06/07/24 21:43 Sod 3.375 gm/ Sodium Chloride IV 06/07/24 21:26 Infused ONCE ONE Infusion Thiamine HCl 100 mg/ Sodium 101 mls @ 202 mls/hr 06/07/24 22:33 06/07/24 23:12 Chloride IV 06/07/24 23:02 Infused ONCE ONE Infusion Iohexol 85 ml 06/07/24 19:11 06/07/24 19:11 Iohexol 350 Mg/Ml 100 Ml Infus..Btl IV 06/07/24 19:12 85 ml ONCE ONE Administration Ketorolac Tromethamine 15 mg 06/07/24 18:26 06/07/24 18:42 Ketorolac Tromethamine 15 Mg/Ml Vial IVPUSH 06/07/24 18:27 15 mg ONCE ONE Administration Ondansetron HCl 4 mg 06/07/24 18:47 06/07/24 18:55 Ondansetron Hcl 4 Mg/2 Ml Vial IVPUSH 06/07/24 18:48 4 mg ONCE ONE Administration Phenobarbital Sodium 209 mg 06/07/24 21:30 06/07/24 21:47 Phenobarbital Sodium 130 Mg/Ml Im Once IM 06/07/24 21:31 209 mg ONCE ONE Administration Potassium Chloride 60 meq 06/07/24 18:47 06/07/24 18:55 Potassium Chloride Er 20 Meq Tab.Er.Prt PO 06/07/24 18:48 60 meq ONCE ONE Administration Medical Decision Making Medical Decision Making MDM Narrative: 48-year-old female with a past medical history of EtOH abuse, EtOH withdrawal seizures, hepatitis-C, pancreatic insufficiency, HTN, GERD, mood disorder, presenting to ED complaining of myalgias, generalized fatigue, epigastric abdominal pain, nausea, vomiting, diarrhea and inability to tolerate p.o. x 4 days. On exam initially tachycardic, EtOH odor on breath, abdomen soft with epigastric tenderness, no rebound or guarding. Concern for ETOH intoxication/dependence vs pancreatitis vs metabolic abnormalities. No evidence of ETOH withdrawal at this time. Low suspicion for severe sepsis. Concern for GI bleed vs hemorrhoidal bleeding. Patient refused rectal exam, will try to get stool sample Plan: EKG, labs, UA, tox screen, CT AP, viral studies, IVF, re-evaluate, +/- admission Please refer to course for remaining clinical decision making, interpretation of labs/imaging results, and discussions with consultants and/or family members. Differential Diagnosis Differential Diagnoses: The differential diagnosis associated with the presentation includes As above Admission/Observation Consideration of admission/observation: Escalation of care including admission/observation considered Lab Data [facility] Lab Attestation statement: I reviewed the patient's lab results. 06/07/24 17:43 06/07/24 17:43 Labs: Lab Results 06/07/24 06/07/24 06/07/24 Range/Units 17:42 17:43 19:30 WBC 5.0 (4.8-10.8) X10*3/uL RBC 3.23 L (4.20-5.50) X10*6/uL Hgb 11.7 L (12.0-16.0) g/dl Hct 32.8 L (37.0-47.0) % MCV 101.5 H (80.0-98.0) fL MCH 36.2 H (27.0-33.0) pg MCHC 35.7 H (31.0-35.0) g/dl RDW 14.8 (11.0-16.0) % Plt Count 113 L D (160-400) X10*3/uL MPV 9.8 (9.4-12.3) fL Immature Gran % (Auto) 0.4 (0.0-0.4) % Neut % (Auto) 48.8 (45-73) % Lymph % (Auto) 41.7 H (20-40) % [place] % (Auto) 8.3 (2-11) % Eos % (Auto) 0.2 (0-4) % Baso % (Auto) 0.6 (0-2) % Lymph # (Auto) 2.1 (1.2-4.9) X10*3/uL [place] # (Auto) 0.4 (0.1-1.2) X10*3/uL Eos # (Auto) 0.0 (0.0-0.4) X10*3/uL Baso # (Auto) 0.0 (0.0-0.2) X10*3/uL Abs Immat Gran (auto) 0.02 (0.00-0.03) X10*3/uL Absolute Neuts (auto) 2.4 (2.0-8.3) x10*3/uL Absolute Nucleated RBC 0.050 H (0.0-0.012) X10*3/uL Nucleated RBC % (auto) 1.0 H (0.0-0.2) /100WBC VBG pH (7.32-7.43) VBG pCO2 mmHg VBG pO2 mmHg VBG HCO3 (22-26) mmol/L VBG O2 Saturation % VBG Base Excess mmol/L Sodium 141 (135-145) mmol/L Potassium 3.1 L (3.3-5.1) mmol/L Chloride 99 (96-108) mmol/L Carbon Dioxide 26 (22-29) mmol/L Anion Gap 19 (12-20) BUN 5 L (9-16) mg/dL Creatinine 0.69 (0.5-1.4) mg/dL Estim Creat Clear Calc 81.5 Estimated GFR > 60 Random Glucose 102 (60-115) mg/dL Lactic Acid 3.5 H* (0.5-2.0) mmol/L Calcium 8.8 (8.4-10.2) mg/dL Magnesium 1.4 L* (1.6-2.6) mg/dL Total Bilirubin 1.1 H (0.0-1.0) mg/dL AST 37 H (5-31) U/L ALT 19 (0-31) U/L Alkaline Phosphatase 164 H (39-117) U/L Ammonia 34 (13-55) umol/L Total Creatine Kinase 79 (26-140) U/L Troponin I High Sens 4.1 D (<3.5-17.0) ng/L Total Protein 6.7 (6.5-8.0) g/dL Albumin 4.0 (3.5-5.0) g/dL Amylase 8 L (28-100) U/L Lipase 13 (8-78) U/L Beta HCG, Quant < 2 mIU/mL Urine Color Yellow Urine Appearance Clear Urine pH 6.5 (5.0-9.0) Ur Specific [place] 1.010 (1.005-1.025) Urine Protein Negative (Neg-Trace) mg/dL Urine Glucose (UA) Negative (Negative) mg/dL Urine Ketones Negative (Negative) mg/dL Urine Blood Negative (Negative) Urine Nitrite Negative (Negative) Ur Leukocyte Esterase Negative (Negative) Urine Opiates Screen Not Detected (Not Detect) Ur Buprenorphine Scrn Not Detected (Not Detect) ng/mL Ur Oxycodone Screen Not Detected (Not Detect) ng/mL Urine Methadone Screen Not Detected (Not Detect) ng/mL Urine Fentanyl Screen Not Detected (Not Detect) Ur Barbiturates Screen Not Detected (Not Detect) Ur Phencyclidine Scrn Not Detected (Not Detect) Ur Amphetamines Screen Not Detected (Not Detect) U Benzodiazepines Scrn Not Detected (Not Detect) Urine Cocaine Screen Not Detected (Not Detect) U Marijuana (THC) Screen POSITIVE H (Not Detect) Ethyl Alcohol 243 mg/dL 06/07/24 Range/Units 19:48 WBC (4.8-10.8) X10*3/uL RBC (4.20-5.50) X10*6/uL Hgb (12.0-16.0) g/dl Hct (37.0-47.0) % MCV (80.0-98.0) fL MCH (27.0-33.0) pg MCHC (31.0-35.0) g/dl RDW (11.0-16.0) % Plt Count (160-400) X10*3/uL MPV (9.4-12.3) fL Immature Gran % (Auto) (0.0-0.4) % Neut % (Auto) (45-73) % Lymph % (Auto) (20-40) % [place] % (Auto) (2-11) % Eos % (Auto) (0-4) % Baso % (Auto) (0-2) % Lymph # (Auto) (1.2-4.9) X10*3/uL [place] # (Auto) (0.1-1.2) X10*3/uL Eos # (Auto) (0.0-0.4) X10*3/uL Baso # (Auto) (0.0-0.2) X10*3/uL Abs Immat Gran (auto) (0.00-0.03) X10*3/uL Absolute Neuts (auto) (2.0-8.3) x10*3/uL Absolute Nucleated RBC (0.0-0.012) X10*3/uL Nucleated RBC % (auto) (0.0-0.2) /100WBC VBG pH 7.42 (7.32-7.43) VBG pCO2 40 mmHg VBG pO2 65 mmHg VBG HCO3 26 (22-26) mmol/L VBG O2 Saturation 89.0 % VBG Base Excess 2.3 mmol/L Sodium (135-145) mmol/L Potassium (3.3-5.1) mmol/L Chloride (96-108) mmol/L Carbon Dioxide (22-29) mmol/L Anion Gap (12-20) BUN (9-16) mg/dL Creatinine (0.5-1.4) mg/dL Estim Creat Clear Calc Estimated GFR Random Glucose (60-115) mg/dL Lactic Acid (0.5-2.0) mmol/L Calcium (8.4-10.2) mg/dL Magnesium (1.6-2.6) mg/dL Total Bilirubin (0.0-1.0) mg/dL AST (5-31) U/L ALT (0-31) U/L Alkaline Phosphatase (39-117) U/L Ammonia (13-55) umol/L Total Creatine Kinase (26-140) U/L Troponin I High Sens (<3.5-17.0) ng/L Total Protein (6.5-8.0) g/dL Albumin (3.5-5.0) g/dL Amylase (28-100) U/L Lipase (8-78) U/L Beta HCG, Quant mIU/mL Urine Color Urine Appearance Urine pH (5.0-9.0) Ur Specific [place] (1.005-1.025) Urine Protein (Neg-Trace) mg/dL Urine Glucose (UA) (Negative) mg/dL Urine Ketones (Negative) mg/dL Urine Blood (Negative) Urine Nitrite (Negative) Ur Leukocyte Esterase (Negative) Urine Opiates Screen (Not Detect) Ur Buprenorphine Scrn (Not Detect) ng/mL Ur Oxycodone Screen (Not Detect) ng/mL Urine Methadone Screen (Not Detect) ng/mL Urine Fentanyl Screen (Not Detect) Ur Barbiturates Screen (Not Detect) Ur Phencyclidine Scrn (Not Detect) Ur Amphetamines Screen (Not Detect) U Benzodiazepines Scrn (Not Detect) Urine Cocaine Screen (Not Detect) U Marijuana (THC) Screen (Not Detect) Ethyl Alcohol mg/dL Independent Interpretation I performed an independent interpretation of an: EKG, Plain X-Ray and CT Scan Radiology Impression Discussion of test interpretation with radiology: I have reviewed the radiologist's reading. External Record Review External record reviewed: Inpatient record, Office record, Outpatient record, Prior outpatient labs, Prior outpatient radiology, Primary care record and Outside ED record Tests considered The following testing was considered but not selected: As above Prescription Management I considered prescription management with: Pain Medication Chronic Conditions Patient?s care impacted by: Other Social Determinants Patient?s care significantly limited by Social Determinants of Health including: Low income, Alcoholism and drug addiction in family and Problems related to primary support group Critical Care Time Critical Care Time Critical Care Time: Yes Total Critical Care Time: 40 Attestation: I have personally provided critical care time exclusive of time spent on separately billable procedures. Time includes review of lab data, radiology results, discussion with consultants, and monitoring for potential decompensation. Intervention performed as documented. Discharge Plan Discharge Clinical Impression: Acute colitis, Hypokalemia, Hypomagnesemia, Alcohol dependence Patient Disposition: Admitted As Inpatient Interventions: Admission Worksheet (ED) Last Done: 06/07/24 23:29 Discharge Date/Time: 06/07/24 23:58
--- NOTE | 2024-06-07 17:17 | ECG_ITS ---
Test Reason : nausea/vomiting Blood Pressure : / mmHG Vent. Rate : 096 BPM Atrial Rate : 096 BPM P-R Int : 146 ms QRS Dur : 100 ms QT Int : 386 ms P-R-T Axes : 063 026 049 degrees QTc Int : 487 ms Normal sinus rhythm Minimal voltage criteria for LVH, may be normal variant ( [place] product ) Prolonged QT Abnormal ECG When compared with ECG of 23-MAY-2024 14:31, No significant change was found Referred By: Lorrie Mcgee Electronically Signed By:DESMOND HILL MD
--- NOTE | 2024-06-07 17:36 | MHC.EDTECH ---
Patient ekg taken and was read by Provider .
[2024-06-07 17:48] VITALS: BP 119/76; PULSE 102; RESP 20; TEMP 36.2; O2SAT 94
[2024-06-07 17:54] LABS: MANUAL DIFF FLAG NO
[2024-06-07 18:02] LABS: Basophils Percent Auto 0.6 % (0-2); Eosinophils Percent Auto 0.2 % (0-4); Hematocrit 32.8 % (37.0-47.0); Hemoglobin 11.7 g/dl (12.0-16.0); Imm Gran Abs Auto 0.02 X10*3/uL (0.00-0.03); Imm Gran Pct Auto 0.4 % (0.0-0.4); Lymphocytes Absolute Auto 2.1 X10*3/uL (1.2-4.9); Lymphocytes Percent Auto 41.7 % (20-40); Mean Corpuscular HGB Conc 35.7 g/dl (31.0-35.0); Mean Corpuscular Hemoglobin 36.2 pg (27.0-33.0); Mean Corpuscular Volume 101.5 fL (80.0-98.0); Mean Platelet Volume 9.8 fL (9.4-12.3); Monocytes Absolute Auto 0.4 X10*3/uL (0.1-1.2); Monocytes Percent Auto 8.3 % (2-11); Neutrophils Absolute Auto 2.4 x10*3/uL (2.0-8.3); Neutrophils Percent Auto 48.8 % (45-73); Platelet Count 113 X10*3/uL (160-400); Red Blood Count 3.23 X10*6/uL (4.20-5.50); Red Cell Distribution Width 14.8 % (11.0-16.0)
--- NOTE | 2024-06-07 18:12 | PC.NURSE ---
Patient reports drank 6 nips today , remote hx of etoh withdrawal seizures
[2024-06-07 18:15] LABS: Amylase 8 U/L (28-100)
[2024-06-07] MEDS: 0.9 % Sodium Chloride 1,000 ML 999 ML IV (18:17)
[2024-06-07 18:21] LABS: Ammonia 34 umol/L (13-55)
[2024-06-07 18:31] VITALS: BP 144/78; PULSE 97; RESP 15; TEMP 36.7; O2SAT 92
[2024-06-07 18:31] LABS: Troponin-I High Sensitivity 4.1 ng/L (<3.5-17.0)
[2024-06-07 18:36] LABS: Alanine Aminotransferase 19 U/L (0-31); Alkaline Phosphatase 164 U/L (39-117); Anion Gap 19 (12-20); Aspartate Amino Transferase 37 U/L (5-31); Bilirubin Total 1.1 mg/dL (0.0-1.0); Blood Urea Nitrogen 5 mg/dL (9-16); Calcium 8.8 mg/dL (8.4-10.2); Carbon Dioxide 26 mmol/L (22-29); Chloride 99 mmol/L (96-108); Creatinine Clr Calc Pharmacy 81.5; Estimated Glomerular Filt Rate > 60; Ethanol 243 mg/dL; Glucose Random 102 mg/dL (60-115); HCG Quantitative < 2 mIU/mL; Lipase 13 U/L (8-78); Magnesium 1.4 mg/dL (1.6-2.6); Potassium 3.1 mmol/L (3.3-5.1); Sodium 141 mmol/L (135-145); Total Protein 6.7 g/dL (6.5-8.0)
[2024-06-07] MEDS: Ketorolac Tromethamine 15 MG/ML VIAL IVPUSH (18:42)
[2024-06-07] MEDS: Famotidine/PF 20 MG/2 ML VIAL IVPUSH (18:43)
[2024-06-07] MEDS: Magnesium Sulfate/H2O 2 GM/50 ML PIGGYBACK IV (18:45)
[2024-06-07] MEDS: Lactated Ringers 1,000 ML 999 ML IV (18:52)
[2024-06-07] MEDS: Potassium Chloride ER 20 MEQ TAB.ER.PRT 60 MEQ PO (18:55)
[2024-06-07] MEDS: ondansetron HCL 4 MG/2 ML VIAL IVPUSH (18:55)
[2024-06-07] MEDS: iohexoL 350 MG/ML 100 ML INFUS..BTL 85 ML IV (19:11)
[2024-06-07 19:39] LABS: Appearance Urine Clear; Color Urine Yellow; Glucose Urine UA Negative (Negative); Leukocyte Esterase Urine Negative (Negative); Nitrite Urine Negative (Negative); PH 6.5 (5.0-9.0); Urine Blood Negative (Negative); Urine Ketones Negative (Negative); Urine Protein Negative (Neg-Trace)
[2024-06-07 19:49] LABS: Amphetamine Screen Urine Not Detected (Not Detect); Barbiturates, Urine Not Detected (Not Detect); Benzodiazepines Screen Urine Not Detected (Not Detect); Buprenorphine Scr Not Detected (Not Detect); Cannabinoid Screen Urine POSITIVE (Not Detect); Cocaine Screen Urine Not Detected (Not Detect); Fentanyl, urine Not Detected (Not Detect); Methadone Screen, Urine Not Detected (Not Detect); Opiate Screen Urine Not Detected (Not Detect); Oxycodone Screen Urine Not Detected (Not Detect); Phencyclidine Screen Urine Not Detected (Not Detect)
[2024-06-07 19:56] LABS: VBG Base Excess 2.3 mmol/L; VBG HCO3 26 mmol/L (22-26); VBG pCO2 40 mmHg; VBG pH 7.42 (7.32-7.43); VBG pO2 65 mmHg
[2024-06-07 19:57] LABS: Lactic Acid 3.5 mmol/L (0.5-2.0)
[2024-06-07 19:59] LABS: Venous Blood Gas Refer to POC result
[2024-06-07] MEDS: Piperacillin Sodium/Tazobactam 3.375 GM in 0.9 % Sodium Chloride 50 ML IV (21:13)
--- NOTE | 2024-06-07 21:15 | PM.IMHP ---
History of Present Illness Date of Service: 06/07/24 Chief Complaint: Abdominal pain This is a 48-year-old female with pertinent history of alcohol use disorder with history of alcohol withdrawal seizures, mood disorder, tobacco use disorder, marijuana use disorder, history of hepatitis-C status post outpatient treatment, chronic pancreatic insufficiency, gastroesophageal reflux disease, essential hypertension who presents to the emergency department for evaluation of abdominal pain. Patient states her symptoms started 2 days prior to presentation. She has been having upper abdominal discomfort that has been constant, progressive and without any relieving factors. Also has associated nausea and multiple episodes of nonbloody emesis. Does report multiple episodes of nonbloody diarrhea. Unable to tolerate p.o. intake. States her last drink was on the day of presentation. Frequent admissions to the hospital with alcohol withdrawal. Patient states she drinks about 5 nips per day. No fever, chills, chest discomfort, palpitations, shortness of breath, changes in urinary habits. In the emergency department, imaging with colitis and questionable diverticulitis. Serum magnesium and potassium found to be low. Lactic acid found to be elevated Review of Systems Constitutional: Constitutional: Reports fatigue, Reports malaise, Reports poor appetite and Reports weakness Cardiovascular: Cardiovascular: Reports no additional cardiovascular complaints Respiratory: Respiratory: Reports no additional respiratory complaints Gastrointestinal: Gastrointestinal: Reports abdominal pain, Reports loose stools, Reports nausea and Reports vomiting Genitourinary: Genitourinary: Reports no additional female genitourinary complaints Neurologic: Reports weakness Endocrine: Endocrine: Reports fatigue [facility] Medical History Hypertension Alcohol use disorder, severe, dependence Alcohol use disorder Pancreatic insufficiency Gastroesophageal reflux disease Essential hypertension Mood disorder Cannabis use disorder Hepatitis C Tobacco use disorder Social History Household Members: Family Housing: House Do you presently have visiting nurse or other home services: No Alcohol intake: current Alcohol intake frequency: 3 or more drinks per day Alcohol type: hard liquor Comment: refused bed alarm Patient Tobacco Use Status: Current someday Tobacco user Tobacco use type: Cigarette Cigarettes Per Day: 10 Smoked in Last 30 Days: Yes e-Cigarette/Vaping Use: Currently Using Second Hand Smoke Exposure: No Use of substances other than those prescribed or required for medical reasons: Yes Substance Use Type: Marijuana Substance Use Frequency: Chronic Longstanding Advance Directives: Yes Advance Directives on File: Yes Advance Directives Date on File: 12/10/23 Do you have a plan to hurt others: No Plan service: No Meds Allergies Allergy/AdvReac Type Severity Reaction Status Date / Time No Known Allergies Allergy Verified 06/07/24 17:17 Active Medications: Current Medications Acetaminophen (Acetaminophen 325 Mg Tablet) 650 mg PO Q6H PRN PRN Reason: Pain, Mild (Pain Scale 1-3), fever or headache Calcium Carbonate (Calcium Carbonate 750 Mg Tab.Chew) 750 mg PO Q4H PRN PRN Reason: Heartburn Piperacillin Sod/Tazobactam (Sod 3.375 gm/ Sodium Chloride) 50 mls @ 100 mls/hr IV ONCE ONE Stop: 06/07/24 21:26 Last Admin: 06/07/24 21:13 Dose: 100 mls/hr Magnesium Hydroxide (Milk Of Magnesia 30 Ml Oral.Susp) 30 ml PO DAILY PRN PRN Reason: Constipation Melatonin (Melatonin 3 Mg Tablet) 6 mg PO BEDTIME PRN PRN Reason: Insomnia Sodium Chloride (0.9 % Sodium Chloride Flush 3 Ml Syringe) [address] [facility] Home Medications ?Medication ?Instructions ?Recorded ?Confirmed ?Last Taken ?Type cholecalciferol (vitamin D3) 50 50 mcg PO DAILY 11/01/23 05/06/24 02/25/24 History mcg (2,000 unit) tablet folic acid 1 mg tablet 1 mg PO DAILY 11/01/23 05/06/24 05/05/24 History hydroxyzine HCl 25 mg tablet 25 mg PO TID PRN anxiety 11/01/23 05/06/24 Unknown History losartan 50 mg tablet 50 mg PO DAILY 11/01/23 05/06/24 05/05/24 History pantoprazole 40 mg tablet,delayed 40 mg PO DAILY@0630 11/01/23 05/06/24 05/05/24 History release trazodone 100 mg tablet 100 mg PO BEDTIME 11/01/23 05/06/24 05/05/24 History clonidine HCl 0.1 mg tablet 0.1 mg PO TID PRN Anxiety 12/10/23 05/06/24 Unknown History metoprolol succinate 25 mg 100 mg PO DAILY 12/10/23 05/06/24 05/05/24 History tablet,extended release 24 hr bupropion HCl 150 mg 24 hr tablet, 150 mg PO DAILY 02/26/24 05/06/24 05/05/24 History extended release citalopram 40 mg tablet 40 mg PO DAILY 02/26/24 05/06/24 05/05/24 History cyanocobalamin (vitamin B-12) 1,000 mcg PO DAILY 02/26/24 05/06/24 05/05/24 History 1,000 mcg tablet sucralfate 100 mg/mL oral 10 ml PO QID 05/06/24 05/06/24 05/05/24 History suspension thiamine mononitrate (vit B1) 100 100 mg PO DAILY 05/06/24 05/06/24 Unknown History mg tablet Physical Exam Vital Signs and Narrative: Vital Signs: Last Vital Signs Temp 98.1 F 06/07/24 18:31 Pulse 97 06/07/24 18:31 Resp 15 06/07/24 18:31 BP 144/78 H 06/07/24 18:31 Pulse Ox 92 06/07/24 18:31 O2 Del Method Room Air 06/07/24 18:31 BMI result Body Mass Index 19.8 Middle-aged female lying in bed in no distress Neck supple, no JVD Regular rate and rhythm, S1-S2 heard Regular breath sounds bilaterally, no wheezing or crackles appreciated Abdomen with generalized tenderness, no guarding, no rebound tenderness Patient is awake, alert and oriented to self, place, time and person ; no focal motor deficit Psych: Drowsy No pedal edema Results Labs 06/07/24 17:43 06/07/24 17:43 Labs: Laboratory Results - last 24 hr 06/07/24 06/07/24 06/07/24 17:42 17:43 19:30 MCV 101.5 H MCH 36.2 H MCHC 35.7 H RDW 14.8 Plt Count 113 L D MPV 9.8 Immature Gran % (Auto) 0.4 Neut % (Auto) 48.8 Lymph % (Auto) 41.7 H Ford % (Auto) 8.3 Eos % (Auto) 0.2 Baso % (Auto) 0.6 Lymph # (Auto) 2.1 Ford # (Auto) 0.4 Eos # (Auto) 0.0 Baso # (Auto) 0.0 Abs Immat Gran (auto) 0.02 Absolute Neuts (auto) 2.4 Absolute Nucleated RBC 0.050 H Nucleated RBC % (auto) 1.0 H VBG pH VBG pCO2 VBG pO2 VBG HCO3 VBG O2 Saturation VBG Base Excess Anion Gap 19 Estim Creat Clear Calc 81.5 Estimated GFR > 60 Random Glucose 102 Lactic Acid 3.5 H* Calcium 8.8 Magnesium 1.4 L* Total Bilirubin 1.1 H AST 37 H ALT 19 Alkaline Phosphatase 164 H Ammonia 34 Total Creatine Kinase 79 Troponin I High Sens 4.1 D Total Protein 6.7 Albumin 4.0 Amylase 8 L Lipase 13 Beta HCG, Quant < 2 Urine Color Yellow Urine Appearance Clear Urine pH 6.5 Ur Specific [place] 1.010 Urine Protein Negative Urine Glucose (UA) Negative Urine Ketones Negative Urine Blood Negative Urine Nitrite Negative Ur Leukocyte Esterase Negative Urine Opiates Screen Not Detected Ur Buprenorphine Scrn Not Detected Ur Oxycodone Screen Not Detected Urine Methadone Screen Not Detected Urine Fentanyl Screen Not Detected Ur Barbiturates Screen Not Detected Ur Phencyclidine Scrn Not Detected Ur Amphetamines Screen Not Detected U Benzodiazepines Scrn Not Detected Urine Cocaine Screen Not Detected U Marijuana (THC) Screen POSITIVE H Ethyl Alcohol 243 06/07/24 19:48 MCV MCH MCHC RDW Plt Count MPV Immature Gran % (Auto) Neut % (Auto) Lymph % (Auto) [place] % (Auto) Eos % (Auto) Baso % (Auto) Lymph # (Auto) [place] # (Auto) Eos # (Auto) Baso # (Auto) Abs Immat Gran (auto) Absolute Neuts (auto) Absolute Nucleated RBC Nucleated RBC % (auto) VBG pH 7.42 VBG pCO2 40 VBG pO2 65 VBG HCO3 26 VBG O2 Saturation 89.0 VBG Base Excess 2.3 Anion Gap Estim Creat Clear Calc Estimated GFR Random Glucose Lactic Acid Calcium Magnesium Total Bilirubin AST ALT Alkaline Phosphatase Ammonia Total Creatine Kinase Troponin I High Sens Total Protein Albumin Amylase Lipase Beta HCG, Quant Urine Color Urine Appearance Urine pH Ur Specific [place] Urine Protein Urine Glucose (UA) Urine Ketones Urine Blood Urine Nitrite Ur Leukocyte Esterase Urine Opiates Screen Ur Buprenorphine Scrn Ur Oxycodone Screen Urine Methadone Screen Urine Fentanyl Screen Ur Barbiturates Screen Ur Phencyclidine Scrn Ur Amphetamines Screen U Benzodiazepines Scrn Urine Cocaine Screen U Marijuana (THC) Screen Ethyl Alcohol Imaging Radiologist's Impressions: Impressions Chest X-Ray 06/07/24 19:00 IMPRESSION: Unremarkable examination. Abdomen/Pelvis CT 06/07/24 19:15 IMPRESSION: * Focal thickening and stranding of the distal rectosigmoid colon with mildly prominent vasa recta. Appearance is favored to reflect colitis, including inflammatory or infectious. Diverticulitis may be considered in the setting of diverticulosis, but is favored to be less likely. * Hepatic steatosis. Assessment and Plan (1) Acute colitis: Status: Acute Plan This is a 48-year-old female with pertinent history of alcohol use disorder with history of alcohol withdrawal seizures, mood disorder, tobacco use disorder, marijuana use disorder, history of hepatitis-C status post outpatient treatment, chronic pancreatic insufficiency, gastroesophageal reflux disease, essential hypertension who presents to the emergency department for concerns of alcohol withdrawal and evaluation of nausea and vomiting. #. Sepsis due to acute colitis: Resuscitated with IV crystalloids. Lactic acid and blood culture obtained. Initiating empiric IV Zosyn. Also question of diverticulitis on imaging. Will keep patient NPO for bowel rest. GI panel and C diff pending #. Alcohol withdrawal in a patient with alcohol use disorder: Initiated on phenobarb protocol in the ER. Consulting Addiction Team. Continue thiamine and folic acid. Monitor CIWA #. Hypomagnesemia and hypokalemia due to GI losses: Repleted #. Acute lactic acidosis due to sepsis #. Chronic pancreatic insufficiency: Continue enzyme supplementation #. Mood disorder: Continue home mood stabilizers #. Essential hypertension: On losartan Med rec pending DVT prophylaxis: Lovenox Full code Admit as inpatient and will require two night minimum hospital stay for IV antibiotics, alcohol withdrawal, monitoring of electrolytes (as above), which is not possible in a lesser acute setting. Quality Stroke Does the patient have a stroke diagnosis?: No VTE Prior VTE?: No VTE Risk Level:: Medical - moderate - high VTE Device Contraindication: Treatment Not Indicated VTE Drug Contraindication: N/A - Med Ordered
[2024-06-07 21:35] LABS: Reflex Lactate? Lactic Acid Added
[2024-06-07 21:40] VITALS: BP 136/90; PULSE 78; RESP 16; O2SAT 93
[2024-06-07] MEDS: PHENobarbitaL sodium 130 MG/ML IM ONCE 209 MG IM (21:47)
[2024-06-07] MEDS: Enoxaparin Sodium 40 MG/0.4 ML SYRINGE SUBCUT (21:47)
[2024-06-07 21:53] VITALS: O2SAT 100
--- NOTE | 2024-06-07 21:53 | PC.NURSE ---
Pt satting 89-90 % while sleeping. Pt placed on NC at 2L with good effect to 100%.
[2024-06-07 22:09] LABS: ~Lactic Acid-LAB USE ONLY 3.3 mmol/L (0.5-2.0)
[2024-06-07 22:35] VITALS: BP 123/64; PULSE 84; RESP 14; O2SAT 99
[2024-06-07] MEDS: Thiamine HCL 100 MG in 0.9 % Sodium Chloride 100 ML 202 MG IV (22:42)
[2024-06-07 23:51] LABS: Reflex Lactate? 2 Y
[2024-06-08] VITALS: BP 180/90; PULSE 82; RESP 16; TEMP 36.1; O2SAT 98
[2024-06-08 00:05] VITALS: BMI 19.6
[2024-06-08 00:52] LABS: ~Lactic Acid-LAB USE ONLY 2.2 mmol/L (0.5-2.0)
[2024-06-08] MEDS: PHENobarbitaL sodium 130 MG/ML VIAL IM Q3Hx2 157 MG IM ×2 (01:13→04:11)
[2024-06-08] MEDS: 0.9 % Sodium Chloride Flush 3 ML SYRINGE IVFLUSH ×2 (01:14→14:41)
[2024-06-08] MEDS: Morphine Sulfate 2 MG/ML CARTRIDGE IVPUSH ×3 (01:14→14:38)
[2024-06-08] MEDS: Piperacillin Sodium/Tazobactam 4.5 GM in 0.9 % Sodium Chloride 100 ML IV ×4 (02:19→21:15)
[2024-06-08 02:35] LABS: CDiff Gene PCR POSITIVE (Negative)
[2024-06-08 03:26] LABS: CDIFF Internal ctrl Dots and bkg OK (V); CDiff Toxin Negative (Negative)
[2024-06-08 06:55] LABS: MANUAL DIFF FLAG NO
[2024-06-08 07:06] LABS: Basophils Percent Auto 0.9 % (0-2); Eosinophils Percent Auto 1.2 % (0-4); Hematocrit 28.6 % (37.0-47.0); Hemoglobin 9.8 g/dl (12.0-16.0); Imm Gran Abs Auto 0.03 X10*3/uL (0.00-0.03); Imm Gran Pct Auto 0.9 % (0.0-0.4); Lymphocytes Absolute Auto 0.9 X10*3/uL (1.2-4.9); Lymphocytes Percent Auto 26.2 % (20-40); Mean Corpuscular HGB Conc 34.3 g/dl (31.0-35.0); Mean Corpuscular Hemoglobin 36.2 pg (27.0-33.0); Mean Corpuscular Volume 105.5 fL (80.0-98.0); Mean Platelet Volume 9.9 fL (9.4-12.3); Monocytes Absolute Auto 0.3 X10*3/uL (0.1-1.2); Monocytes Percent Auto 7.9 % (2-11); NRBC Pct Auto 0.6 /100WBC (0.0-0.2); Neutrophils Absolute Auto 2.1 x10*3/uL (2.0-8.3); Neutrophils Percent Auto 62.9 % (45-73); Red Blood Count 2.71 X10*6/uL (4.20-5.50); Red Cell Distribution Width 14.6 % (11.0-16.0); White Blood Count 3.3 X10*3/uL (4.8-10.8)
[2024-06-08 07:17] LABS: Platelet Count 82 X10*3/uL (160-400)
[2024-06-08 07:25] LABS: Anion Gap 14 (12-20); Blood Urea Nitrogen 3 mg/dL (9-16); Calcium 8.2 mg/dL (8.4-10.2); Carbon Dioxide 26 mmol/L (22-29); Chloride 106 mmol/L (96-108); Creatinine Clr Calc Pharmacy 84.2; Estimated Glomerular Filt Rate > 60; Glucose Random 97 mg/dL (60-115); Magnesium 1.5 mg/dL (1.6-2.6); Sodium 143 mmol/L (135-145)
[2024-06-08] MEDS: Potassium Chloride ER 20 MEQ TAB.ER.PRT 40 MEQ PO (07:39)
[2024-06-08] MEDS: Potassium Chloride/H20 10 MEQ/100 ML PIGGYBACK 100 MEQ IV ×4 (07:39→10:31)
[2024-06-08] MEDS: Lactated Ringers 1,000 ML 100 ML IVCONT ×2 (07:39→14:39)
[2024-06-08] MEDS: Magnesium Oxide 400 MG TABLET PO ×2 (07:39→16:31)
[2024-06-08 07:52] LABS: Potassium 2.7 mmol/L (3.3-5.1)
[2024-06-08 07:57] VITALS: BP 142/78; PULSE 84; RESP 16; TEMP 35.9; O2SAT 94
[2024-06-08 08:14] LABS: C Reactive Protein 0.63 mg/dL (< or = 0.50)
[2024-06-08] MEDS: PHENobarbitaL 15 MG TABLET 45 MG PO ×2 (08:26→19:39)
[2024-06-08 09:41] LABS: Adenovirus F 40/41 Not Detected (Not Detect.); Astrovirus Not Detected (Not Detect.); Campylobacter Not Detected (Not Detect.); Cryptosporidium Not Detected (Not Detect.); Cyclospora cayetanensis Not Detected (Not Detect.); E. coli EAEC Not Detected (Not Detect.); E. coli EPEC Not Detected (Not Detect.); E. coli ETEC Not Detected (Not Detect.); E. coli STEC Not Detected (Not Detect.); Entamoeba histolytica Not Detected (Not Detect.); Giardia lamblia Not Detected (Not Detect.); Norovirus GI/GII Not Detected (Not Detect.); Plesiomonas shigelloides Not Detected (Not Detect.); Rotavirus A Not Detected (Not Detect.); Salmonella Not Detected (Not Detect.); Sapovirus Not Detected (Not Detect.); Shigella sp./EIEC Not Detected (Not Detect.); Vibrio Not Detected (Not Detect.); Vibrio Cholerae Not Detected (Not Detect.); Yersinia enterocolitica Not Detected (Not Detect.)
[2024-06-08] MEDS: Thiamine HCL 100 MG in 0.9 % Sodium Chloride 100 ML 202 MG IV (09:59)
--- NOTE | 2024-06-08 10:52 | PHA.MEDREC ---
Addendum entered by Mala Johnson RPh 06/08/24 12:09: MED REC COMPLETE BY PROGRAM PROPOSALS COORDINATOR, REVIEWED BY ILIR Original Note: Pharmacy Consult ? Medication Reconciliation Pharmacy has completed the medication reconciliation.
[2024-06-08 10:58] LABS: Leukocytes Stool Qualitative NEGATIVE (NEGATIVE)
[2024-06-08 11:13] VITALS: BP 162/80; PULSE 73
[2024-06-08] MEDS: Folic Acid 1 MG TABLET PO (11:20)
[2024-06-08] MEDS: Losartan Potassium 50 MG TABLET PO (11:20)
[2024-06-08] MEDS: buPROPion HCl XL 150 MG TAB.ER.24H PO (11:20)
[2024-06-08] MEDS: Cyanocobalamin (Vitamin B-12) 1,000 MCG TABLET 1000 MCG PO (11:20)
[2024-06-08] MEDS: Sucralfate Oral Suspension 1 GM/10 ML ORAL.SUSP PO ×3 (11:20→19:39)
[2024-06-08] MEDS: Metoprolol Succinate ER 100 MG TAB.ER.24H PO (11:20)
[2024-06-08] MEDS: Escitalopram Oxalate 5 MG TABLET PO (11:20)
--- NOTE | 2024-06-08 13:43 | HO.PM.IMPN ---
Subjective Subjective Date of Service: 06/08/24 Interval History: c/o abd pain + diarrhea nausea improved K 2.7, Mg 1.5 Review of Systems Review of Systems: Yes all other systems are reviewed and are negative Physical Exam Vital Signs: Vital Signs: Last Vital Signs Temp 96.7 F L 06/08/24 07:57 Pulse 73 06/08/24 11:13 Resp 16 06/08/24 07:57 BP 162/80 H 06/08/24 11:13 Pulse Ox 94 06/08/24 07:57 O2 Del Method Nasal Cannula 06/08/24 07:57 O2 Flow Rate 2 06/08/24 07:57 BMI result Body Mass Index 19.6 Gen: in no acute distress HEENT: sclera anicteric, moist mucus membranes Neck: supple Lungs: clear to auscultation bilaterally Heart: regular rate and rhythm, no murmurs Abd: soft, LLQ tender, non-distended Ext: no edema Skin: warm/well-perfused Neuro: alert and oriented x3, no focal findings Psych: appropriate affect Objective Data Active Medications Acetaminophen (Acetaminophen 325 Mg Tablet) 650 mg PO Q6H PRN PRN Reason: Pain, Mild (Pain Scale 1-3), fever or headache Benzonatate (Benzonatate 100 Mg Capsule) 200 mg PO TID PRN PRN Reason: cough Bupropion HCl (Bupropion Hcl Xl 150 Mg Tab.Er.24h) 150 mg PO DAILY [facility] Last Admin: 06/08/24 11:20 Dose: 150 mg Documented By: KATY Calcium Carbonate (Calcium Carbonate 750 Mg Tab.Chew) 750 mg PO Q4H PRN PRN Reason: Heartburn Clonidine HCl (Clonidine Hcl 0.1 Mg Tablet) 0.1 mg PO TID PRN; Protocol PRN Reason: Anxiety Cyanocobalamin (Cyanocobalamin (Vitamin B-12) 1,000 Mcg Tablet) 1,000 mcg PO DAILY [facility] Last Admin: 06/08/24 11:20 Dose: 1,000 mcg Documented By: KATY Enoxaparin Sodium (Enoxaparin Sodium 40 Mg/0.4 Ml Syringe) 40 mg SUBCUT Q24H [facility] Last Admin: 06/07/24 21:47 Dose: 40 mg Documented By: JENNI Escitalopram Oxalate (Escitalopram Oxalate 5 Mg Tablet) 5 mg PO DAILY [facility] Last Admin: 06/08/24 11:20 Dose: 5 mg Documented By: KATY Folic Acid (Folic Acid 1 Mg Tablet) 1 mg PO DAILY [facility] Last Admin: 06/08/24 11:20 Dose: 1 mg Documented By: KATY Hydroxyzine HCl (Hydroxyzine Hcl 25 Mg Tablet) 25 mg PO TID PRN PRN Reason: anxiety Piperacillin Sod/Tazobactam (Sod 4.5 gm/ Sodium Chloride) 100 mls @ 200 mls/hr IV Q6H [facility] Last Infusion: 06/08/24 10:06 Dose: Infused Documented By: KATY Lactated Ringer's (Lr) 1,000 mls @ 100 mls/hr IVCONT .Q10H [facility] Last Admin: 06/08/24 07:39 Dose: 100 mls/hr Documented By: KATY Thiamine HCl 100 mg/ Sodium (Chloride) 101 mls @ 202 mls/hr IV DAILY [facility] Last Infusion: 06/08/24 10:31 Dose: Infused Documented By: KATY Losartan Potassium (Losartan Potassium 50 Mg Tablet) 50 mg PO DAILY [facility]; Protocol Last Admin: 06/08/24 11:20 Dose: 50 mg Documented By: KATY Magnesium Hydroxide (Milk Of Magnesia 30 Ml Oral.Susp) 30 ml PO DAILY PRN PRN Reason: Constipation Magnesium Oxide (Magnesium Oxide 400 Mg Tablet) 400 mg PO BIDPC [facility] Last Admin: 06/08/24 07:39 Dose: 400 mg Documented By: KATY Melatonin (Melatonin 3 Mg Tablet) 6 mg PO BEDTIME PRN PRN Reason: Insomnia Metoprolol Succinate (Metoprolol Succinate Er 100 Mg Tab.Er.24h) 100 mg PO DAILY [facility]; Protocol Last Admin: 06/08/24 11:20 Dose: 100 mg Documented By: KATY Morphine Sulfate (Morphine Sulfate 2 Mg/Ml Cartridge) 2 mg IVPUSH Q4H PRN; Protocol PRN Reason: Pain, Severe (Pain Scale 7-10) Last Admin: 06/08/24 05:28 Dose: 2 mg Documented By: PING Omeprazole (Omeprazole 20 Mg Capsule.Dr) 20 mg PO DAILY@0630 [facility] Ondansetron HCl (Ondansetron Hcl 4 Mg/2 Ml Vial) 4 mg IVPUSH Q8H PRN PRN Reason: Nausea and Vomiting Pharmacy Consult (Consult Rx Etoh Phenob Im/Po) 1 each MISCELLANE ONCE PRN; Protocol PRN Reason: Consult order Phenobarbital (Phenobarbital 15 Mg Tablet) 45 mg PO BID [facility] Stop: 06/09/24 21:01 Last Admin: 06/08/24 08:26 Dose: 45 mg Documented By: KATY Phenobarbital (Phenobarbital 30 Mg Tablet) 30 mg PO BID [facility] Stop: 06/11/24 21:01 Phenobarbital (Phenobarbital 15 Mg Tablet) 15 mg PO DAILY [facility] Stop: 06/13/24 09:01 Sodium Chloride (0.9 % Sodium Chloride Flush 3 Ml Syringe) 3 ml IVFLUSH QSHIFT [facility] Last Admin: 06/08/24 07:39 Dose: Not Given Documented By: KATY Non-Admin Reason: IV Running Sucralfate (Sucralfate Oral Suspension 1 Gm/10 Ml Oral.Susp) 1 gm PO QIDACHS [facility] Last Admin: 06/08/24 11:20 Dose: 1 gm Documented By: KATY Trazodone HCl (Trazodone Hcl 50 Mg Tablet) 50 mg PO BEDTIME PRN PRN Reason: Insomnia Vitamin D (Cholecalciferol (Vitamin D3) 25 Mcg Tablet) 50 mcg PO DAILY [facility] Labs 06/08/24 06:33 06/08/24 06:33 Labs: Laboratory Results - last 24 hr 06/07/24 06/07/24 06/07/24 17:42 17:43 19:30 MCV 101.5 H MCH 36.2 H MCHC 35.7 H RDW 14.8 Plt Count 113 L D MPV 9.8 Immature Gran % (Auto) 0.4 Neut % (Auto) 48.8 Lymph % (Auto) 41.7 H [place] % (Auto) 8.3 Eos % (Auto) 0.2 Baso % (Auto) 0.6 Lymph # (Auto) 2.1 [place] # (Auto) 0.4 Eos # (Auto) 0.0 Baso # (Auto) 0.0 Abs Immat Gran (auto) 0.02 Absolute Neuts (auto) 2.4 Absolute Nucleated RBC 0.050 H Nucleated RBC % (auto) 1.0 H VBG pH VBG pCO2 VBG pO2 VBG HCO3 VBG O2 Saturation VBG Base Excess Anion Gap 19 Estim Creat Clear Calc 81.5 Estimated GFR > 60 Random Glucose 102 Lactic Acid 3.5 H* Lactic Acid F/U @ 2Hr Lactic Acid F/U @ 4Hr Calcium 8.8 Magnesium 1.4 L* Total Bilirubin 1.1 H AST 37 H ALT 19 Alkaline Phosphatase 164 H Ammonia 34 Total Creatine Kinase 79 Troponin I High Sens 4.1 D C-Reactive Protein Total Protein 6.7 Albumin 4.0 Amylase 8 L Lipase 13 Beta HCG, Quant < 2 Urine Color Yellow Urine Appearance Clear Urine pH 6.5 Ur Specific [place] 1.010 Urine Protein Negative Urine Glucose (UA) Negative Urine Ketones Negative Urine Blood Negative Urine Nitrite Negative Ur Leukocyte Esterase Negative Stool Leukocytes, Qual Stl C. cayetanensis PCR Stool Rotavirus A PCR Stl Adenov F 40/41 PCR Stool Astrovirus (PCR) Stool Campylobacter PCR Stool Cryptosporidium PCR Stl Sh Tox Pr E STEC PCR Stool E coli O157 PCR Stl Enterotoxigenic E PCR Stool EPEC (PCR) Stool EAEC (PCR) Stl E. histolytica PCR Stool Giardia Lamblia PCR Stl P. shigelloides PCR Stool Salmonella PCR Stool Sapovirus (PCR) Stl Shigella/EIEC PCR St Y.enterocolitica PCR Stool Vibrio (PCR) Stl Vibrio cholerae PCR Stl Norovirus GI/GII PCR Urine Opiates Screen Not Detected Ur Buprenorphine Scrn Not Detected Ur Oxycodone Screen Not Detected Urine Methadone Screen Not Detected Urine Fentanyl Screen Not Detected Ur Barbiturates Screen Not Detected Ur Phencyclidine Scrn Not Detected Ur Amphetamines Screen Not Detected U Benzodiazepines Scrn Not Detected Urine Cocaine Screen Not Detected U Marijuana (THC) Screen POSITIVE H Ethyl Alcohol 243 C. difficile Tox B Gene C. difficile Toxin A&B C. difficile Interpret 06/07/24 06/07/24 06/08/24 19:48 21:46 00:20 MCV MCH MCHC RDW Plt Count MPV Immature Gran % (Auto) Neut % (Auto) Lymph % (Auto) [place] % (Auto) Eos % (Auto) Baso % (Auto) Lymph # (Auto) [place] # (Auto) Eos # (Auto) Baso # (Auto) Abs Immat Gran (auto) Absolute Neuts (auto) Absolute Nucleated RBC Nucleated RBC % (auto) VBG pH 7.42 VBG pCO2 40 VBG pO2 65 VBG HCO3 26 VBG O2 Saturation 89.0 VBG Base Excess 2.3 Anion Gap Estim Creat Clear Calc Estimated GFR Random Glucose Lactic Acid Lactic Acid F/U @ 2Hr 3.3 H* Lactic Acid F/U @ 4Hr 2.2 H* Calcium Magnesium Total Bilirubin AST ALT Alkaline Phosphatase Ammonia Total Creatine Kinase Troponin I High Sens C-Reactive Protein Total Protein Albumin Amylase Lipase Beta HCG, Quant Urine Color Urine Appearance Urine pH Ur Specific [place] Urine Protein Urine Glucose (UA) Urine Ketones Urine Blood Urine Nitrite Ur Leukocyte Esterase Stool Leukocytes, Qual Stl C. cayetanensis PCR Stool Rotavirus A PCR Stl Adenov F 40 PCR Stool Astrovirus (PCR) Stool Campylobacter PCR Stool Cryptosporidium PCR Stl Sh Tox Pr E STEC PCR Stool E coli O157 PCR Stl Enterotoxigenic E PCR Stool EPEC (PCR) Stool EAEC (PCR) Stl E. histolytica PCR Stool Giardia Lamblia PCR Stl P. shigelloides PCR Stool Salmonella PCR Stool Sapovirus (PCR) Stl Shigella/EIEC PCR St Y.enterocolitica PCR Stool Vibrio (PCR) Stl Vibrio cholerae PCR Stl Norovirus GI/GII PCR Urine Opiates Screen Ur Buprenorphine Scrn Ur Oxycodone Screen Urine Methadone Screen Urine Fentanyl Screen Ur Barbiturates Screen Ur Phencyclidine Scrn Ur Amphetamines Screen U Benzodiazepines Scrn Urine Cocaine Screen U Marijuana (THC) Screen Ethyl Alcohol C. difficile Tox B Gene C. difficile Toxin A&B C. difficile Interpret 06/08/24 06/08/24 06/08/24 01:11 06:33 Unknown MCV 105.5 H MCH 36.2 H MCHC 34.3 RDW 14.6 Plt Count 82 L D MPV 9.9 Immature Gran % (Auto) 0.9 H Neut % (Auto) 62.9 Lymph % (Auto) 26.2 [place] % (Auto) 7.9 Eos % (Auto) 1.2 Baso % (Auto) 0.9 Lymph # (Auto) 0.9 L [place] # (Auto) 0.3 Eos # (Auto) 0.0 Baso # (Auto) 0.0 Abs Immat Gran (auto) 0.03 Absolute Neuts (auto) 2.1 Absolute Nucleated RBC 0.020 H Nucleated RBC % (auto) 0.6 H VBG pH VBG pCO2 VBG pO2 VBG HCO3 VBG O2 Saturation VBG Base Excess Anion Gap 14 Estim Creat Clear Calc 84.2 Estimated GFR > 60 Random Glucose 97 Lactic Acid Lactic Acid F/U @ 2Hr Lactic Acid F/U @ 4Hr Calcium 8.2 L D Magnesium 1.5 L Total Bilirubin AST ALT Alkaline Phosphatase Ammonia Total Creatine Kinase Troponin I High Sens C-Reactive Protein 0.63 H Total Protein Albumin Amylase Lipase Beta HCG, Quant Urine Color Urine Appearance Urine pH Ur Specific [place] Urine Protein Urine Glucose (UA) Urine Ketones Urine Blood Urine Nitrite Ur Leukocyte Esterase Stool Leukocytes, Qual NEGATIVE Stl C. cayetanensis PCR Not Detected Stool Rotavirus A PCR Not Detected Stl Adenov F 40/41 PCR Not Detected Stool Astrovirus (PCR) Not Detected Stool Campylobacter PCR Not Detected Stool Cryptosporidium PCR Not Detected Stl Sh Tox Pr E STEC PCR Not Detected Stool E coli O157 PCR Not applicable Stl Enterotoxigenic E PCR Not Detected Stool EPEC (PCR) Not Detected Stool EAEC (PCR) Not Detected Stl E. histolytica PCR Not Detected Stool Giardia Lamblia PCR Not Detected Stl P. shigelloides PCR Not Detected Stool Salmonella PCR Not Detected Stool Sapovirus (PCR) Not Detected Stl Shigella/EIEC PCR Not Detected St Y.enterocolitica PCR Not Detected Stool Vibrio (PCR) Not Detected Stl Vibrio cholerae PCR Not Detected Stl Norovirus GI/GII PCR Not Detected Urine Opiates Screen Ur Buprenorphine Scrn Ur Oxycodone Screen Urine Methadone Screen Urine Fentanyl Screen Ur Barbiturates Screen Ur Phencyclidine Scrn Ur Amphetamines Screen U Benzodiazepines Scrn Urine Cocaine Screen U Marijuana (THC) Screen Ethyl Alcohol C. difficile Tox B Gene POSITIVE A* C. difficile Toxin A&B Negative C. difficile Interpret SEE NOTE Assessment and Plan (1) Alcohol dependence: Status: Acute Plan d2 48yo F with AUD + hx withdrawal seizures, tobacco abuse + marijuana use, mood disorder, hx HCV s/p treatment, chronic pancreatic insufficiency, HTN, GERD admitted for EtOH withdrawal but also found to be septic due to colitis sepsis due to colitis - 06/07- pip-chay, advance to clears, GI panel negative Cdiff colonization - start vanco 06/08- given on pip-chay hypoK - replete IV/PO, recheck level in AM hypoMg - replete PO, recheck level in AM acute lactic acidosis - improved after fluid resuscitation EtOH withdrawal/AUD - phenobarbital taper, thiamine, folic acid, Addiction Medicine HTN - losartan mood disorder - continue bupropion, escitalopram, trazodone, clonidine, hydroxyzine VTE ppx - enoxaparin dispo - eventual home In my clinical judgment, the patient requires continued inpatient hospitalization for the following reasons: IV ABX + electrolyte repletion + inpt EtOH withdrawal treatment Total time managing care of this patient today: 45 minutes. Quality Stroke Does the patient have a stroke diagnosis?: No VTE Prior VTE?: No VTE Risk Level:: Medical - moderate - high VTE Device Contraindication: Treatment Not Indicated VTE Drug Contraindication: N/A - Med Ordered
[2024-06-08] MEDS: vancomycin HCL 125 MG CAPSULE PO ×2 (14:38→19:39)
[2024-06-08] MEDS: hydrOXYzine HCL 25 MG TABLET PO (14:54)
[2024-06-08 15:50] VITALS: BP 142/78; PULSE 70; RESP 16; TEMP 36.1; O2SAT 95
--- NOTE | 2024-06-08 16:14 | MHC.CM.PN ---
PT REPORTS SHE LIVES AT HOME WITH HER ADULT SON SHE IS INDEPENDENT WITH CARE AND USES NO DME HCP ON FILE PCP: BRENNEN SOUZA DCP: HOME NO SERVICES VIA PRIVATE TRANSPORT
[2024-06-08] MEDS: Calcium Carbonate 750 MG TAB.CHEW PO (18:23)
[2024-06-08] MEDS: cloNIDine HCL 0.1 MG TABLET PO (18:25)
[2024-06-08] MEDS: Enoxaparin Sodium 40 MG/0.4 ML SYRINGE SUBCUT (21:04)
[2024-06-08] MEDS: traZODone HCL 50 MG TABLET PO (22:29)
[2024-06-08 23:37] VITALS: BP 127/68; PULSE 63; RESP 20; TEMP 36.2; O2SAT 96
[2024-06-09] MEDS: 0.9 % Sodium Chloride Flush 3 ML SYRINGE IVFLUSH ×2 (01:07→19:37)
[2024-06-09] MEDS: vancomycin HCL 125 MG CAPSULE PO ×4 (02:05→19:36)
[2024-06-09] MEDS: Piperacillin Sodium/Tazobactam 4.5 GM in 0.9 % Sodium Chloride 100 ML IV ×4 (02:06→21:39)
--- NOTE | 2024-06-09 02:31 | PC.NURSE ---
Pt resting quietly, tolerating crackers and daneil-juani. Denies N/V at this time, still reporting loose stools. Respirations even an non-labored, no apparent distress noted. Pt calm and cooperative. Call yarbrough within reach.
[2024-06-09] MEDS: Lactated Ringers 1,000 ML 100 ML IVCONT (02:42)
[2024-06-09] MEDS: Omeprazole 20 MG CAPSULE.DR PO (06:14)
[2024-06-09 07:47] VITALS: BP 176/86; PULSE 74; RESP 12; TEMP 36.4; O2SAT 97
[2024-06-09] MEDS: Metoprolol Succinate ER 100 MG TAB.ER.24H PO (08:05)
[2024-06-09] MEDS: Losartan Potassium 50 MG TABLET PO (08:05)
[2024-06-09] MEDS: Sucralfate Oral Suspension 1 GM/10 ML ORAL.SUSP PO ×4 (08:05→21:39)
[2024-06-09] MEDS: PHENobarbitaL 15 MG TABLET 45 MG PO ×2 (08:05→21:39)
[2024-06-09] MEDS: Folic Acid 1 MG TABLET PO (08:06)
[2024-06-09] MEDS: Cholecalciferol (Vitamin D3) 25 MCG TABLET 50 MCG PO (08:06)
[2024-06-09] MEDS: Cyanocobalamin (Vitamin B-12) 1,000 MCG TABLET 1000 MCG PO (08:06)
[2024-06-09] MEDS: Magnesium Oxide 400 MG TABLET PO ×2 (08:06→09:13)
[2024-06-09] MEDS: buPROPion HCl XL 150 MG TAB.ER.24H PO (08:06)
[2024-06-09] MEDS: Thiamine HCL 100 MG in 0.9 % Sodium Chloride 100 ML 202 MG IV (08:06)
[2024-06-09] MEDS: Escitalopram Oxalate 5 MG TABLET PO (08:06)
[2024-06-09] MEDS: Morphine Sulfate 2 MG/ML CARTRIDGE IVPUSH ×3 (08:07→19:36)
[2024-06-09 08:17] LABS: Alanine Aminotransferase 16 U/L (0-31); Alkaline Phosphatase 134 U/L (39-117); Anion Gap 13 (12-20); Aspartate Amino Transferase 37 U/L (5-31); Bilirubin Total 0.8 mg/dL (0.0-1.0); Blood Urea Nitrogen < 3 mg/dL (9-16); Calcium 8.4 mg/dL (8.4-10.2); Carbon Dioxide 25 mmol/L (22-29); Chloride 107 mmol/L (96-108); Creatinine Clr Calc Pharmacy 97.4; Estimated Glomerular Filt Rate > 60; Glucose Random 85 mg/dL (60-115); Magnesium 1.2 mg/dL (1.6-2.6); Potassium 3.4 mmol/L (3.3-5.1); Sodium 142 mmol/L (135-145); Total Protein 5.2 g/dL (6.5-8.0)
[2024-06-09] MEDS: Magnesium Sulfate/H2O 2 GM/50 ML PIGGYBACK IV (09:13)
--- NOTE | 2024-06-09 10:13 | HO.PM.IMPN ---
Subjective Subjective Date of Service: 06/09/24 Interval History: watery, non-bloody diarrhea; abd pain improved; tremulousness improved tolerating clears; no N/V Review of Systems Review of Systems: Yes all other systems are reviewed and are negative Physical Exam Vital Signs: Vital Signs: Last Vital Signs Temp 97.6 F 06/09/24 07:47 Pulse 74 06/09/24 07:47 Resp 12 06/09/24 07:47 BP 176/86 H 06/09/24 07:47 Pulse Ox 97 06/09/24 07:47 O2 Del Method Room Air 06/09/24 07:47 O2 Flow Rate 2 06/08/24 15:50 BMI result Body Mass Index 19.6 Gen: in no acute distress HEENT: sclera anicteric, moist mucus membranes Neck: supple Lungs: clear to auscultation bilaterally Heart: regular rate and rhythm, no murmurs Abd: soft, LLQ tender, non-distended Ext: no edema Skin: warm/well-perfused Neuro: alert and oriented x3, no focal findings Psych: appropriate affect Objective Data Active Medications Acetaminophen (Acetaminophen 325 Mg Tablet) 650 mg PO Q6H PRN PRN Reason: Pain, Mild (Pain Scale 1-3), fever or headache Benzonatate (Benzonatate 100 Mg Capsule) 200 mg PO TID PRN PRN Reason: cough Bupropion HCl (Bupropion Hcl Xl 150 Mg Tab.Er.24h) 150 mg PO DAILY [facility] Last Admin: 06/09/24 08:06 Dose: 150 mg Documented By: PAPI Calcium Carbonate (Calcium Carbonate 750 Mg Tab.Chew) 750 mg PO Q4H PRN PRN Reason: Heartburn Last Admin: 06/08/24 18:23 Dose: 750 mg Documented By: KATY Clonidine HCl (Clonidine Hcl 0.1 Mg Tablet) 0.1 mg PO TID PRN; Protocol PRN Reason: Anxiety Last Admin: 06/08/24 18:25 Dose: 0.1 mg Documented By: KATY Cyanocobalamin (Cyanocobalamin (Vitamin B-12) 1,000 Mcg Tablet) 1,000 mcg PO DAILY [facility] Last Admin: 06/09/24 08:06 Dose: 1,000 mcg Documented By: PAPI Enoxaparin Sodium (Enoxaparin Sodium 40 Mg/0.4 Ml Syringe) 40 mg SUBCUT Q24H [facility] Last Admin: 06/08/24 21:04 Dose: 40 mg Documented By: PING Escitalopram Oxalate (Escitalopram Oxalate 5 Mg Tablet) 5 mg PO DAILY [facility] Last Admin: 06/09/24 08:06 Dose: 5 mg Documented By: PAPI Folic Acid (Folic Acid 1 Mg Tablet) 1 mg PO DAILY [facility] Last Admin: 06/09/24 08:06 Dose: 1 mg Documented By: PAPI Hydroxyzine HCl (Hydroxyzine Hcl 25 Mg Tablet) 25 mg PO TID PRN PRN Reason: anxiety Last Admin: 06/08/24 14:54 Dose: 25 mg Documented By: KATY Piperacillin Sod/Tazobactam (Sod 4.5 gm/ Sodium Chloride) 100 mls @ 200 mls/hr IV Q6H [facility] Last Infusion: 06/09/24 08:53 Dose: Infused Documented By: PAPI Thiamine HCl 100 mg/ Sodium (Chloride) 101 mls @ 202 mls/hr IV DAILY [facility] Last Infusion: 06/09/24 08:53 Dose: Infused Documented By: PAPI Losartan Potassium (Losartan Potassium 50 Mg Tablet) 50 mg PO DAILY [facility]; Protocol Last Admin: 06/09/24 08:05 Dose: 50 mg Documented By: PAPI Magnesium Hydroxide (Milk Of Magnesia 30 Ml Oral.Susp) 30 ml PO DAILY PRN PRN Reason: Constipation Magnesium Oxide (Magnesium Oxide 400 Mg Tablet) 800 mg PO BIDPC [facility] Last Admin: 06/09/24 09:17 Dose: Not Given Documented By: PAPI Non-Admin Reason: Physician Approved Melatonin (Melatonin 3 Mg Tablet) 6 mg PO BEDTIME PRN PRN Reason: Insomnia Metoprolol Succinate (Metoprolol Succinate Er 100 Mg Tab.Er.24h) 100 mg PO DAILY [facility]; Protocol Last Admin: 06/09/24 08:05 Dose: 100 mg Documented By: PAPI Morphine Sulfate (Morphine Sulfate 2 Mg/Ml Cartridge) 2 mg IVPUSH Q4H PRN; Protocol PRN Reason: Pain, Severe (Pain Scale 7-10) Last Admin: 06/09/24 08:07 Dose: 2 mg Documented By: PAPI Omeprazole (Omeprazole 20 Mg Capsule.) 20 mg PO DAILY@0630 [facility] Last Admin: 06/09/24 06:14 Dose: 20 mg Documented By: PING Ondansetron HCl (Ondansetron Hcl 4 Mg/2 Ml Vial) 4 mg IVPUSH Q8H PRN PRN Reason: Nausea and Vomiting Pharmacy Consult (Consult Rx Etoh Phenob Im/Po) 1 each MISCELLANE ONCE PRN; Protocol PRN Reason: Consult order Phenobarbital (Phenobarbital 15 Mg Tablet) 45 mg PO BID [facility] Stop: 06/09/24 21:01 Last Admin: 06/09/24 08:05 Dose: 45 mg Documented By: PAPI Phenobarbital (Phenobarbital 30 Mg Tablet) 30 mg PO BID [facility] Stop: 06/11/24 21:01 Phenobarbital (Phenobarbital 15 Mg Tablet) 15 mg PO DAILY [facility] Stop: 06/13/24 09:01 Sodium Chloride (0.9 % Sodium Chloride Flush 3 Ml Syringe) 3 ml IVFLUSH QSHIFT [facility] Last Admin: 06/09/24 08:20 Dose: Not Given Documented By: PAPI Non-Admin Reason: IV Running Sucralfate (Sucralfate Oral Suspension 1 Gm/10 Ml Oral.Susp) 1 gm PO QIDACHS [facility] Last Admin: 06/09/24 08:05 Dose: 1 gm Documented By: PAPI Trazodone HCl (Trazodone Hcl 50 Mg Tablet) 50 mg PO BEDTIME PRN PRN Reason: Insomnia Last Admin: 06/08/24 22:29 Dose: 50 mg Documented By: PING Vancomycin HCl (Vancomycin Hcl 125 Mg Capsule) 125 mg PO Q6H [facility] Last Admin: 06/09/24 08:05 Dose: 125 mg Documented By: PAPI Vitamin D (Cholecalciferol (Vitamin D3) 25 Mcg Tablet) 50 mcg PO DAILY [facility] Last Admin: 06/09/24 08:06 Dose: 50 mcg Documented By: PAPI Labs 06/08/24 06:33 06/09/24 05:13 Labs: Laboratory Results - last 24 hr 06/08/24 06/08/24 06/09/24 01:11 Unknown 05:13 Anion Gap 13 Estim Creat Clear Calc 97.4 Estimated GFR > 60 Random Glucose 85 Calcium 8.4 Magnesium 1.2 L* Total Bilirubin 0.8 AST 37 H ALT 16 Alkaline Phosphatase 134 H Total Protein 5.2 L Albumin 3.0 L Stool Leukocytes, Qual NEGATIVE C. difficile Interpret SEE NOTE Microbiology Microbiology Results: Microbiology 06/07/24 15:40 Blood Culture - Preliminary Blood - Venous No growth after 24 hours. 06/07/24 19:30 Blood Culture - Preliminary Blood - Venous No growth after 24 hours. Assessment and Plan (1) Alcohol dependence: Status: Acute Plan d3 48yo F with AUD + hx withdrawal seizures, tobacco abuse + marijuana use, mood disorder, hx HCV s/p treatment, chronic pancreatic insufficiency, HTN, GERD admitted for EtOH withdrawal but also found to be septic due to colitis sepsis due to colitis - pip-chay 06/07-, GI panel negative, stool WBCs negative; advance to regular diet Cdiff colonization - started vanco 06/08- while on pip-chay hypoK - repleted hypoMg - replete IV + increase PO maintenance; recheck level in AM acute lactic acidosis - improved after fluid resuscitation EtOH withdrawal/AUD - phenobarbital taper, thiamine, folic acid, Addiction Medicine HTN - losartan mood disorder - continue bupropion, escitalopram, trazodone, clonidine, hydroxyzine VTE ppx - enoxaparin dispo - eventual home In my clinical judgment, the patient requires continued inpatient hospitalization for the following reasons: IV ABX + electrolyte repletion + inpt EtOH withdrawal treatment Total time managing care of this patient today: 35 minutes. Quality Stroke Does the patient have a stroke diagnosis?: No VTE Prior VTE?: No VTE Risk Level:: Medical - moderate - high VTE Device Contraindication: Treatment Not Indicated VTE Drug Contraindication: N/A - Med Ordered
[2024-06-09] MEDS: cloNIDine HCL 0.1 MG TABLET PO ×2 (10:23→19:36)
[2024-06-09 15:27] VITALS: BP 177/99; PULSE 71; RESP 16; TEMP 36.4; O2SAT 98
[2024-06-09] MEDS: hydrOXYzine HCL 25 MG TABLET PO (15:33)
--- NOTE | 2024-06-09 15:59 | MHC.RECOVRN ---
AUDIT-C Brief Intervention Pt had positive screen for unhealthy alcohol use on admission, subsequently met with t/w to discuss alcohol use and recovery supports/options. Pt voices concern regarding alcohol use and is aware that drinking at unhealthy levels is known to increase risk of alcohol related health problems. Pt reports 6 mixed drinks daily since last admission. Pt expresses how alcohol use has impacted health, including negative impact on physical wellbeing. Discussed risk reduction strategies including drinking below the recommended limit. Provided pt with written resources including information on inpatient and outpatient treatment, WEI, harm reduction, and recovery coaching. Pt plans to present to [facility] as a walk in after discharge. Pt provided with t/w contact information if questions or concerns arise. Denies other questions or concerns at this time.
--- NOTE | 2024-06-09 16:23 | MHC.CM.PN ---
PT NOT YET MEDICALLY CLEARED DCP: HOME VIA PRIVATE TRANSPORT
[2024-06-09] MEDS: Magnesium Oxide 400 MG TABLET 800 MG PO (16:51)
[2024-06-09] MEDS: Enoxaparin Sodium 40 MG/0.4 ML SYRINGE SUBCUT (21:42)
[2024-06-09] MEDS: traZODone HCL 50 MG TABLET PO (21:42)
[2024-06-09 23:21] VITALS: BP 178/87; PULSE 74; RESP 18; TEMP 36.1; O2SAT 96
[2024-06-10] MEDS: vancomycin HCL 125 MG CAPSULE PO ×4 (03:12→20:51)
[2024-06-10] MEDS: Piperacillin Sodium/Tazobactam 4.5 GM in 0.9 % Sodium Chloride 100 ML IV ×3 (03:12→14:06)
[2024-06-10] MEDS: Omeprazole 20 MG CAPSULE.DR PO (05:45)
[2024-06-10] MEDS: cloNIDine HCL 0.1 MG TABLET PO ×2 (06:34→18:16)
[2024-06-10 06:50] LABS: Hematocrit 31.2 % (37.0-47.0); Hemoglobin 10.5 g/dl (12.0-16.0); Mean Corpuscular HGB Conc 33.7 g/dl (31.0-35.0); Mean Corpuscular Hemoglobin 35.7 pg (27.0-33.0); Mean Corpuscular Volume 106.1 fL (80.0-98.0); Mean Platelet Volume 10.7 fL (9.4-12.3); NRBC Pct Auto 0.4 /100WBC (0.0-0.2); Red Blood Count 2.94 X10*6/uL (4.20-5.50); Red Cell Distribution Width 13.9 % (11.0-16.0); White Blood Count 5.5 X10*3/uL (4.8-10.8)
[2024-06-10 06:53] LABS: Platelet Count 85 X10*3/uL (160-400)
[2024-06-10] MEDS: Morphine Sulfate 2 MG/ML CARTRIDGE IVPUSH ×4 (07:19→20:52)
[2024-06-10 07:31] LABS: Anion Gap 14 (12-20); Blood Urea Nitrogen < 3 mg/dL (9-16); Calcium 9.1 mg/dL (8.4-10.2); Carbon Dioxide 29 mmol/L (22-29); Chloride 100 mmol/L (96-108); Creatinine Clr Calc Pharmacy 94.1; Estimated Glomerular Filt Rate > 60; Glucose Random 99 mg/dL (60-115); Magnesium 1.2 mg/dL (1.6-2.6); Sodium 140 mmol/L (135-145)
[2024-06-10] MEDS: Sucralfate Oral Suspension 1 GM/10 ML ORAL.SUSP PO ×4 (07:37→20:50)
[2024-06-10] MEDS: Cholecalciferol (Vitamin D3) 25 MCG TABLET 50 MCG PO (07:37)
[2024-06-10] MEDS: Escitalopram Oxalate 5 MG TABLET PO (07:37)
[2024-06-10] MEDS: buPROPion HCl XL 150 MG TAB.ER.24H PO (07:37)
[2024-06-10] MEDS: Magnesium Sulfate/H2O 2 GM/50 ML PIGGYBACK IV (07:37)
[2024-06-10] MEDS: Folic Acid 1 MG TABLET PO (07:37)
[2024-06-10] MEDS: Magnesium Oxide 400 MG TABLET 800 MG PO ×2 (07:37→18:01)
[2024-06-10] MEDS: Cyanocobalamin (Vitamin B-12) 1,000 MCG TABLET 1000 MCG PO (07:38)
[2024-06-10] MEDS: Losartan Potassium 50 MG TABLET PO (07:38)
[2024-06-10] MEDS: Metoprolol Succinate ER 100 MG TAB.ER.24H PO (07:38)
[2024-06-10] MEDS: 0.9 % Sodium Chloride Flush 3 ML SYRINGE IVFLUSH ×2 (07:38→21:44)
[2024-06-10] MEDS: PHENobarbitaL 30 MG TABLET PO ×2 (07:38→20:52)
[2024-06-10 07:47] VITALS: BP 190/90; PULSE 69; RESP 14; TEMP 36.6; O2SAT 100
[2024-06-10] MEDS: Thiamine HCL 100 MG in 0.9 % Sodium Chloride 100 ML 202 MG IV (09:27)
[2024-06-10] MEDS: Potassium Chloride Packet 20 MEQ PACKET 40 MEQ PO ×2 (09:28→20:50)
--- NOTE | 2024-06-10 10:16 | P.PNIM_ITS ---
Subjective Subjective Date of Service: 06/10/24 Interval History: Still with diarrhea, c/o abdominal pain, anxious, tremulous Physical Exam 2 Vital Signs: Vital Signs: Selected Entries 06/10/24 16:00 Temperature 98 F Pulse Rate 67 Respiratory Rate 14 Blood Pressure 180/80 H Pulse Oximetry 98 Oxygen Delivery Me thod Room Air Const: Other: alert, no distress seemed anxious abdomen--non-specific tenderness, no guarding Objective Data Active Medications Acetaminophen (Acetaminophen 325 Mg Tablet) 650 mg PO Q6H PRN PRN Reason: Pain, Mild (Pain Scale 1-3), fever or headache Benzonatate (Benzonatate 100 Mg Capsule) 200 mg PO TID PRN PRN Reason: cough Bupropion HCl (Bupropion Hcl Xl 150 Mg Tab.Er.24h) 150 mg PO DAILY [facility] Last Admin: 06/10/24 07:37 Dose: 150 mg Documented By: PAPI Calcium Carbonate (Calcium Carbonate 750 Mg Tab.Chew) 750 mg PO Q4H PRN PRN Reason: Heartburn Last Admin: 06/08/24 18:23 Dose: 750 mg Documented By: KATY Clonidine HCl (Clonidine Hcl 0.1 Mg Tablet) 0.1 mg PO TID PRN; Protocol PRN Reason: Anxiety Last Admin: 06/10/24 06:34 Dose: 0.1 mg Documented By: NELSY Cyanocobalamin (Cyanocobalamin (Vitamin B-12) 1,000 Mcg Tablet) 1,000 mcg PO DAILY [facility] Last Admin: 06/10/24 07:38 Dose: 1,000 mcg Documented By: PAPI Enoxaparin Sodium (Enoxaparin Sodium 40 Mg/0.4 Ml Syringe) 40 mg SUBCUT Q24H [facility] Last Admin: 06/09/24 21:42 Dose: 40 mg Documented By: NELSY Escitalopram Oxalate (Escitalopram Oxalate 5 Mg Tablet) 5 mg PO DAILY [facility] Last Admin: 06/10/24 07:37 Dose: 5 mg Documented By: PAPI Folic Acid (Folic Acid 1 Mg Tablet) 1 mg PO DAILY [facility] Last Admin: 06/10/24 07:37 Dose: 1 mg Documented By: PAPI Hydroxyzine HCl (Hydroxyzine Hcl 25 Mg Tablet) 25 mg PO TID PRN PRN Reason: anxiety Last Admin: 06/09/24 15:33 Dose: 25 mg Documented By: PAPI Piperacillin Sod/Tazobactam (Sod 4.5 gm/ Sodium Chloride) 100 mls @ 200 mls/hr IV Q6H [facility] Last Infusion: 06/10/24 10:12 Dose: Infused Documented By: PAPI Thiamine HCl 100 mg/ Sodium (Chloride) 101 mls @ 202 mls/hr IV DAILY [facility] Last Infusion: 06/10/24 10:12 Dose: Infused Documented By: PAPI Losartan Potassium (Losartan Potassium 50 Mg Tablet) 50 mg PO DAILY [facility]; Protocol Last Admin: 06/10/24 07:38 Dose: 50 mg Documented By: PAPI Magnesium Hydroxide (Milk Of Magnesia 30 Ml Oral.Susp) 30 ml PO DAILY PRN PRN Reason: Constipation [facility]esium [facility] ([facility] 400 Mg [facility]t) [facility] Last Admin: 06/10/24 07:37 Dose: 800 mg Documented By: PAPI Melatonin (Melatonin 3 Mg Tablet) 6 mg PO BEDTIME PRN PRN Reason: Insomnia Metoprolol Succinate (Metoprolol Succinate Er 100 Mg Tab.Er.24h) 100 mg PO DAILY [facility]; Protocol Last Admin: 06/10/24 07:38 Dose: 100 mg Documented By: PAPI Morphine Sulfate (Morphine Sulfate 2 Mg/Ml Cartridge) 2 mg IVPUSH Q4H PRN; Protocol PRN Reason: Pain, Severe (Pain Scale 7-10) Last Admin: 06/10/24 07:19 Dose: 2 mg Documented By: PAPI Omeprazole (Omeprazole 20 Mg Capsule.) 20 mg PO DAILY@0630 [facility] Last Admin: 06/10/24 05:45 Dose: 20 mg Documented By: NELSY Ondansetron HCl (Ondansetron Hcl 4 Mg/2 Ml Vial) 4 mg IVPUSH Q8H PRN PRN Reason: Nausea and Vomiting Pharmacy Consult (Consult Rx Etoh Phenob Im/Po) 1 each MISCELLANE ONCE PRN; Protocol PRN Reason: Consult order Phenobarbital (Phenobarbital 30 Mg Tablet) 30 mg PO BID [facility] Stop: 06/11/24 21:01 Last Admin: 06/10/24 07:38 Dose: 30 mg Documented By: PAPI Phenobarbital (Phenobarbital 15 Mg Tablet) 15 mg PO DAILY [facility] Stop: 06/13/24 09:01 Potassium Chloride (Potassium Chloride Packet 20 Meq Packet) 40 meq PO BID [facility] Stop: 06/11/24 09:01 Last Admin: 06/10/24 09:28 Dose: 40 meq Documented By: PAPI Sodium Chloride (0.9 % Sodium Chloride Flush 3 Ml Syringe) 3 ml IVFLUSH QSHIFT [facility] Last Admin: 06/10/24 07:38 Dose: 3 ml Documented By: PAPI Sucralfate (Sucralfate Oral Suspension 1 Gm/10 Ml Oral.Susp) 1 gm PO QIDACHS [facility] Last Admin: 06/10/24 07:37 Dose: 1 gm Documented By: PAPI Trazodone HCl (Trazodone Hcl 50 Mg Tablet) 50 mg PO BEDTIME PRN PRN Reason: Insomnia Last Admin: 06/09/24 21:42 Dose: 50 mg Documented By: NELSY Vancomycin HCl (Vancomycin Hcl 125 Mg Capsule) 125 mg PO Q6H [facility] Last Admin: 06/10/24 07:37 Dose: 125 mg Documented By: PAPI Vitamin D (Cholecalciferol (Vitamin D3) 25 Mcg Tablet) 50 mcg PO DAILY [facility] Last Admin: 06/10/24 07:37 Dose: 50 mcg Documented By: PAPI Labs 06/10/24 05:45 06/10/24 05:45 Labs: Laboratory Results - last 24 hr 06/10/24 05:45 MCV 106.1 H MCH 35.7 H MCHC 33.7 RDW 13.9 Plt Count 85 L MPV 10.7 Absolute Nucleated RBC 0.020 H Nucleated RBC % (auto) 0.4 H Anion Gap 14 Estim Creat Clear Calc 94.1 Estimated GFR > 60 Random Glucose 99 Calcium 9.1 D Magnesium 1.2 L* Microbiology Microbiology Results: Microbiology 06/07/24 15:40 Blood Culture - Preliminary Blood - Venous No growth after 48 hours. 06/07/24 19:30 Blood Culture - Preliminary Blood - Venous No growth after 48 hours. Assessment and Plan (1) Alcohol dependence: Status: Acute Plan 48yo F with AUD + hx withdrawal seizures, tobacco abuse + marijuana use, mood disorder, hx HCV s/p treatment, chronic pancreatic insufficiency, HTN, GERD admitted for EtOH withdrawal but also found to be septic due to colitis sepsis due to colitis, still with symptoms Severe sepsis on 06/07 as evidenced by lactate of 3.5 @ 1930 on 06/07 - continue Zosyn 06/07-, GI panel negative, stool WBCs negative, advance diet Cdiff colonization - started vanco 06/08- while on zosyn, stop zosyn, continue vanco hypoK - repleted, recehck Chronic thrmobocytopenia--d/t chronic liver disease, level may have dropped from IvF and Lovenox hypoMg - replete with IV + PO; recheck level in AM acute lactic acidosis - improved after fluid resuscitation EtOH withdrawal/AUD - phenobarbital taper, thiamine, folic acid, Addiction Medicine HTN - losartan mood disorder - continue bupropion, escitalopram, trazodone, clonidine, hydroxyzine VTE ppx - enoxaparin dispo - eventual home In my clinical judgment, the patient requires continued inpatient hospitalization for the following reasons: IV ABX + electrolyte repletion + inpt EtOH withdrawal treatment Total time managing care of this patient today: 35 minutes. Total time managing care of this patient today: 35 minutes. Quality Stroke Does the patient have a stroke diagnosis?: No VTE Prior VTE?: No VTE Risk Level:: Medical - moderate - high VTE Device Contraindication: Treatment Not Indicated VTE Drug Contraindication: N/A - Med Ordered
[2024-06-10 11:27] VITALS: BP 177/79; PULSE 67; RESP 14; TEMP 36.4; O2SAT 97
--- NOTE | 2024-06-10 13:25 | MHC.CM.PN ---
EMR reviewed and per MD rounds, pt is not medically cleared for discharge due to management of ETOH W/D electrolyte repletion, and IV antibiotics.
--- NOTE | 2024-06-10 15:22 | P.CDIM_ITS ---
PROVIDER RESPONSE TEXT: To clarify, the appropriate diagnosis supported by the clinical indicators: Underweight QUERY TEXT: PHYSICIAN'S DOCUMENTATION REQUEST Date of Query: 06/10/2024 11:52 AM EDT Patient Name: Jackelyn Bldesoe Admit Date: 06/08/2024 Dear Gavino Epperson MD, A review of the medical record indicates additional documentation may be needed. Please review below and update the documentation accordingly. Clinical Indicators: Height: ( ) 5'4 Weight: ( ) 51.7 kg BMI: ( ) 19.6 Other Clinical Notes Supporting Significance of the BMI: Per Nutritional Risk Assessment 06/09/24: PO intake < 50% x5 days If possible, please provide an associated diagnosis related to the abnormal BMI, such as: Underweight Weight loss Cachexia Anorexia BMI is not significant Other (explain) Clinically unable to determine (explain) Thank you, Patricia Szymanski RN Use of terms such as suspected, likely, concern for, or probable (associated with a specific diagnosi s that is being evaluated, monitored, or treated as if it exists) are acceptable and can be coded in the inpatient se tting, when documented at the time of discharge. Please use your independent medical judgment in providing your response. THIS QUERY IS PART OF THE PERMANENT MEDICAL RECORD
[2024-06-10 16:00] VITALS: BP 180/80; PULSE 67; RESP 14; TEMP 36.6; O2SAT 98
[2024-06-10] MEDS: amLODIPine Besylate 5 MG TABLET PO (16:46)
[2024-06-10] MEDS: Enoxaparin Sodium 40 MG/0.4 ML SYRINGE SUBCUT (20:49)
[2024-06-10] MEDS: traZODone HCL 50 MG TABLET PO (21:44)
[2024-06-10 22:08] VITALS: BP 163/81; PULSE 65; RESP 18; O2SAT 95
--- NOTE | 2024-06-10 23:35 | PC.NURSE ---
This RN assumed care at 1900, pt reporting some pain 8/ abd & legs, Meds given per DEC. Pt calm. cooperative, resting quietly in room. Denies N/V, still having diarrhea at this time. Call yarbrough within reach.
[2024-06-10 23:45] VITALS: BP 178/80; PULSE 73; RESP 16; TEMP 36; O2SAT 93
[2024-06-11 00:01] VITALS: BP 178/80
[2024-06-11] MEDS: cloNIDine HCL 0.1 MG TABLET PO ×2 (00:01→12:42)
[2024-06-11] MEDS: vancomycin HCL 125 MG CAPSULE PO ×4 (01:10→20:01)
[2024-06-11] MEDS: Omeprazole 20 MG CAPSULE.DR PO (06:20)
[2024-06-11 07:34] VITALS: BP 174/82; PULSE 62; RESP 16; TEMP 36; O2SAT 96
[2024-06-11] MEDS: PHENobarbitaL 30 MG TABLET PO ×2 (08:23→20:01)
[2024-06-11] MEDS: Morphine Sulfate 2 MG/ML CARTRIDGE IVPUSH ×3 (08:23→20:02)
[2024-06-11] MEDS: Losartan Potassium 50 MG TABLET PO (08:23)
[2024-06-11] MEDS: Sucralfate Oral Suspension 1 GM/10 ML ORAL.SUSP PO ×4 (08:23→20:01)
[2024-06-11] MEDS: Thiamine HCL 100 MG in 0.9 % Sodium Chloride 100 ML 202 MG IV (08:23)
[2024-06-11] MEDS: buPROPion HCl XL 150 MG TAB.ER.24H PO (08:24)
[2024-06-11] MEDS: Cyanocobalamin (Vitamin B-12) 1,000 MCG TABLET 1000 MCG PO (08:24)
[2024-06-11] MEDS: Metoprolol Succinate ER 100 MG TAB.ER.24H PO (08:24)
[2024-06-11] MEDS: Escitalopram Oxalate 5 MG TABLET PO (08:24)
[2024-06-11] MEDS: Cholecalciferol (Vitamin D3) 25 MCG TABLET 50 MCG PO (08:24)
[2024-06-11] MEDS: Folic Acid 1 MG TABLET PO (08:24)
[2024-06-11] MEDS: amLODIPine Besylate 5 MG TABLET PO (08:24)
[2024-06-11] MEDS: Magnesium Oxide 400 MG TABLET 800 MG PO ×2 (08:24→18:23)
[2024-06-11] MEDS: Potassium Chloride Packet 20 MEQ PACKET 40 MEQ PO (08:25)
[2024-06-11] MEDS: 0.9 % Sodium Chloride Flush 3 ML SYRINGE IVFLUSH ×3 (08:25→20:01)
--- NOTE | 2024-06-11 09:40 | P.PNIM_ITS ---
Subjective Subjective Date of Service: 06/11/24 Interval History: still with diarrhea, withdrawal improved Physical Exam 2 Vital Signs: Vital Signs: Last Vital Signs Temp 96.8 F 06/11/24 07:34 Pulse 62 06/11/24 07:34 Resp 16 06/11/24 07:34 BP 174/82 H 06/11/24 07:34 Pulse Ox 96 06/11/24 07:34 O2 Del Method Room Air 06/11/24 07:34 O2 Flow Rate 2 06/10/24 07:47 BMI result Body Mass Index 19.6 Const: Other: alert, no distress abdomen--non-specific tenderness, no guarding Objective Data Active Medications Acetaminophen (Acetaminophen 325 Mg Tablet) 650 mg PO Q6H PRN PRN Reason: Pain, Mild (Pain Scale 1-3), fever or headache Amlodipine Besylate (Amlodipine Besylate 5 Mg Tablet) 5 mg PO DAILY [facility]; Protocol Last Admin: 06/11/24 08:24 Dose: 5 mg Documented By: HARI Benzonatate (Benzonatate 100 Mg Capsule) 200 mg PO TID PRN PRN Reason: cough Bupropion HCl (Bupropion Hcl Xl 150 Mg Tab.Er.24h) 150 mg PO DAILY [facility] Last Admin: 06/11/24 08:24 Dose: 150 mg Documented By: HARI Calcium Carbonate (Calcium Carbonate 750 Mg Tab.Chew) 750 mg PO Q4H PRN PRN Reason: Heartburn Last Admin: 06/08/24 18:23 Dose: 750 mg Documented By: KATY Clonidine HCl (Clonidine Hcl 0.1 Mg Tablet) 0.1 mg PO TID PRN; Protocol PRN Reason: Anxiety Last Admin: 06/11/24 00:01 Dose: 0.1 mg Documented By: PING Cyanocobalamin (Cyanocobalamin (Vitamin B-12) 1,000 Mcg Tablet) 1,000 mcg PO DAILY [facility] Last Admin: 06/11/24 08:24 Dose: 1,000 mcg Documented By: HARI Enoxaparin Sodium (Enoxaparin Sodium 40 Mg/0.4 Ml Syringe) 40 mg SUBCUT Q24H [facility] Last Admin: 06/10/24 20:49 Dose: 40 mg Documented By: PING Escitalopram Oxalate (Escitalopram Oxalate 5 Mg Tablet) 5 mg PO DAILY [facility] Last Admin: 06/11/24 08:24 Dose: 5 mg Documented By: HARI Folic Acid (Folic Acid 1 Mg Tablet) 1 mg PO DAILY [facility] Last Admin: 06/11/24 08:24 Dose: 1 mg Documented By: HARI Hydroxyzine HCl (Hydroxyzine Hcl 25 Mg Tablet) 25 mg PO TID PRN PRN Reason: anxiety Last Admin: 06/09/24 15:33 Dose: 25 mg Documented By: PAPI Thiamine HCl 100 mg/ Sodium (Chloride) 101 mls @ 202 mls/hr IV DAILY [facility] Last Admin: 06/11/24 08:23 Dose: 202 mls/hr Documented By: HARI Losartan Potassium (Losartan Potassium 50 Mg Tablet) 50 mg PO DAILY [facility]; Protocol Last Admin: 06/11/24 08:23 Dose: 50 mg Documented By: HARI Magnesium Hydroxide (Milk Of Magnesia 30 Ml Oral.Susp) 30 ml PO DAILY PRN PRN Reason: Constipation Magnesium Oxide (Magnesium Oxide 400 Mg Tablet) 800 mg PO BIDPC [facility] Last Admin: 06/11/24 08:24 Dose: 800 mg Documented By: HARI Melatonin (Melatonin 3 Mg Tablet) 6 mg PO BEDTIME PRN PRN Reason: Insomnia Metoprolol Succinate (Metoprolol Succinate Er 100 Mg Tab.Er.24h) 100 mg PO DAILY [facility]; Protocol Last Admin: 06/11/24 08:24 Dose: 100 mg Documented By: HARI Morphine Sulfate (Morphine Sulfate 2 Mg/Ml Cartridge) 2 mg IVPUSH Q4H PRN; Protocol PRN Reason: Pain, Severe (Pain Scale 7-10) Last Admin: 06/11/24 08:23 Dose: 2 mg Documented By: HARI Omeprazole (Omeprazole 20 Mg Capsule.Dr) 20 mg PO DAILY@0630 [facility] Last Admin: 06/11/24 06:20 Dose: 20 mg Documented By: PING Ondansetron HCl (Ondansetron Hcl 4 Mg/2 Ml Vial) 4 mg IVPUSH Q8H PRN PRN Reason: Nausea and Vomiting Pharmacy Consult (Consult Rx Etoh Phenob Im/Po) 1 each MISCELLANE ONCE PRN; Protocol PRN Reason: Consult order Phenobarbital (Phenobarbital 30 Mg Tablet) 30 mg PO BID [facility] Stop: 06/11/24 21:01 Last Admin: 06/11/24 08:23 Dose: 30 mg Documented By: HARI Phenobarbital (Phenobarbital 15 Mg Tablet) 15 mg PO DAILY [facility] Stop: 06/13/24 09:01 Sodium Chloride (0.9 % Sodium Chloride Flush 3 Ml Syringe) 3 ml IVFLUSH QSHIFT [facility] Last Admin: 06/11/24 08:25 Dose: 3 ml Documented By: HARI Sucralfate (Sucralfate Oral Suspension 1 Gm/10 Ml Oral.Susp) 1 gm PO QIDACHS [facility] Last Admin: 06/11/24 08:23 Dose: 1 gm Documented By: HARI Trazodone HCl (Trazodone Hcl 50 Mg Tablet) 50 mg PO BEDTIME PRN PRN Reason: Insomnia Last Admin: 06/10/24 21:44 Dose: 50 mg Documented By: PING Vancomycin HCl (Vancomycin Hcl 125 Mg Capsule) 125 mg PO Q6H [facility] Last Admin: 06/11/24 08:24 Dose: 125 mg Documented By: HARI Vitamin D (Cholecalciferol (Vitamin D3) 25 Mcg Tablet) 50 mcg PO DAILY [facility] Last Admin: 06/11/24 08:24 Dose: 50 mcg Documented By: HARI Labs 06/10/24 05:45 06/10/24 05:45 Assessment and Plan (1) Alcohol dependence: Status: Acute Plan 48yo F with AUD + hx withdrawal seizures, tobacco abuse + marijuana use, mood disorder, hx HCV s/p treatment, chronic pancreatic insufficiency, HTN, GERD admitted for EtOH withdrawal but also found to be septic due to colitis sepsis due to cdif colitis, still with diarrhea initially treated with zosyn and po vanc, ID appreciated, zosyn stopped, continue vanco hypoK - repleted, recehck Chronic thrmobocytopenia--d/t chronic liver disease, level may have dropped from IvF and Lovenox hypoMg - replete with IV + PO; recheck level in AM acute lactic acidosis - improved after fluid resuscitation EtOH withdrawal/AUD - phenobarbital taper, thiamine, folic acid, Addiction Medicine HTN - losartan mood disorder - continue bupropion, escitalopram, trazodone, clonidine, hydroxyzine VTE ppx - enoxaparin dispo - eventual home reason for continued hospitalization:awaiting formed stools Total time managing care of this patient today: 35 minutes. Quality Stroke Does the patient have a stroke diagnosis?: No VTE Prior VTE?: No VTE Risk Level:: Medical - moderate - high VTE Device Contraindication: Treatment Not Indicated VTE Drug Contraindication: N/A - Med Ordered
[2024-06-11 09:58] LABS: Anion Gap 15 (12-20); Blood Urea Nitrogen 3 mg/dL (9-16); Calcium 9.1 mg/dL (8.4-10.2); Carbon Dioxide 30 mmol/L (22-29); Chloride 97 mmol/L (96-108); Creatinine Clr Calc Pharmacy 99.1; Estimated Glomerular Filt Rate > 60; Glucose Random 142 mg/dL (60-115); Potassium 3.7 mmol/L (3.3-5.1); Sodium 138 mmol/L (135-145)
[2024-06-11 10:01] LABS: Magnesium 1.3 mg/dL (1.6-2.6)
[2024-06-11] MEDS: Magnesium Sulfate/H2O 2 GM/50 ML PIGGYBACK IV (12:51)
[2024-06-11 15:28] VITALS: BP 155/75; PULSE 57; RESP 18; TEMP 36.3; O2SAT 96
--- NOTE | 2024-06-11 15:58 | W.PM.IDCN ---
History of Present Illness Data of Consult Service Date: 06/10/24 Requesting physician: Gavino Epperson Primary Care Provider: Ayala Patton MD HPI Reason for consult: nausea,vomiting ,diarrhea She presents with nausea,vomiting and diarrhea for four days. She drinks alcohol to excess. She has positive Cdiff gene,but negative toxin. Review of Systems Review of Systems: Yes all other systems are reviewed and are negative [facility] Past Medical History Medical History (Updated 06/11/24 @ 16:00 by Yojana Nation MD) Clostridium difficile colitis Hypertension Alcohol use disorder, severe, dependence Alcohol use disorder Pancreatic insufficiency Gastroesophageal reflux disease Essential hypertension Mood disorder Cannabis use disorder Hepatitis C Tobacco use disorder Family History Family history: reviewed and not pertinent Social History Social History Household Members: Family Housing: House Do you presently have visiting nurse or other home services: No Alcohol intake: current Alcohol intake frequency: 3 or more drinks per day Alcohol type: hard liquor Comment: refused bed alarm Patient Tobacco Use Status: Current everyday Tobacco user Tobacco use type: Cigarette Cigarettes Per Day: 10 e-Cigarette/Vaping Use: Currently Using Second Hand Smoke Exposure: No Substance Use Type: Marijuana Advance Directives Date on File: 12/10/23 service: No Meds Allergies Allergy/AdvReac Type Severity Reaction Status Date / Time No Known Allergies Allergy Verified 06/07/24 17:17 Active Medications: Current Medications Acetaminophen (Acetaminophen 325 Mg Tablet) 650 mg PO Q6H PRN PRN Reason: Pain, Mild (Pain Scale 1-3), fever or headache Amlodipine Besylate (Amlodipine Besylate 5 Mg Tablet) 5 mg PO DAILY [facility]; Protocol Last Admin: 06/11/24 08:24 Dose: 5 mg Benzonatate (Benzonatate 100 Mg Capsule) 200 mg PO TID PRN PRN Reason: cough Bupropion HCl (Bupropion Hcl Xl 150 Mg Tab.Er.24h) 150 mg PO DAILY [facility] Last Admin: 06/11/24 08:24 Dose: 150 mg Calcium Carbonate (Calcium Carbonate 750 Mg Tab.Chew) 750 mg PO Q4H PRN PRN Reason: Heartburn Last Admin: 06/08/24 18:23 Dose: 750 mg Clonidine HCl (Clonidine Hcl 0.1 Mg Tablet) 0.1 mg PO TID PRN; Protocol PRN Reason: Anxiety Last Admin: 06/11/24 12:42 Dose: 0.1 mg Cyanocobalamin (Cyanocobalamin (Vitamin B-12) 1,000 Mcg Tablet) 1,000 mcg PO DAILY [facility] Last Admin: 06/11/24 08:24 Dose: 1,000 mcg Enoxaparin Sodium (Enoxaparin Sodium 40 Mg/0.4 Ml Syringe) 40 mg SUBCUT Q24H [facility] Last Admin: 06/10/24 20:49 Dose: 40 mg Escitalopram Oxalate (Escitalopram Oxalate 5 Mg Tablet) 5 mg PO DAILY [facility] Last Admin: 06/11/24 08:24 Dose: 5 mg Folic Acid (Folic Acid 1 Mg Tablet) 1 mg PO DAILY [facility] Last Admin: 06/11/24 08:24 Dose: 1 mg Hydroxyzine HCl (Hydroxyzine Hcl 25 Mg Tablet) 25 mg PO TID PRN PRN Reason: anxiety Last Admin: 06/09/24 15:33 Dose: 25 mg Thiamine HCl 100 mg/ Sodium (Chloride) 101 mls @ 202 mls/hr IV DAILY [facility] Last Infusion: 06/11/24 09:49 Dose: Infused Losartan Potassium (Losartan Potassium 50 Mg Tablet) 50 mg PO DAILY [facility]; Protocol Last Admin: 06/11/24 08:23 Dose: 50 mg Magnesium Hydroxide (Milk Of Magnesia 30 Ml Oral.Susp) 30 ml PO DAILY PRN PRN Reason: Constipation Magnesium Oxide (Magnesium Oxide 400 Mg Tablet) 800 mg PO BIDPC [facility] Last Admin: 06/11/24 08:24 Dose: 800 mg Melatonin (Melatonin 3 Mg Tablet) 6 mg PO BEDTIME PRN PRN Reason: Insomnia Metoprolol Succinate (Metoprolol Succinate Er 100 Mg Tab.Er.24h) 100 mg PO DAILY [facility]; Protocol Last Admin: 06/11/24 08:24 Dose: 100 mg Morphine Sulfate (Morphine Sulfate 2 Mg/Ml Cartridge) 2 mg IVPUSH Q4H PRN; Protocol PRN Reason: Pain, Severe (Pain Scale 7-10) Last Admin: 06/11/24 15:06 Dose: 2 mg Omeprazole (Omeprazole 20 Mg Capsule.Dr) 20 mg PO DAILY@0630 [facility] Last Admin: 06/11/24 06:20 Dose: 20 mg Ondansetron HCl (Ondansetron Hcl 4 Mg/2 Ml Vial) 4 mg IVPUSH Q8H PRN PRN Reason: Nausea and Vomiting Pharmacy Consult (Consult Rx Etoh Phenob Im/Po) 1 each MISCELLANE ONCE PRN; Protocol PRN Reason: Consult order Phenobarbital (Phenobarbital 30 Mg Tablet) 30 mg PO BID [facility] Stop: 06/11/24 21:01 Last Admin: 06/11/24 08:23 Dose: 30 mg Phenobarbital (Phenobarbital 15 Mg Tablet) 15 mg PO DAILY [facility] Stop: 06/13/24 09:01 Sodium Chloride (0.9 % Sodium Chloride Flush 3 Ml Syringe) 3 ml IVFLUSH QSHIFT [facility] Last Admin: 06/11/24 08:25 Dose: 3 ml Sucralfate (Sucralfate Oral Suspension 1 Gm/10 Ml Oral.Susp) 1 gm PO QIDACHS [facility] Last Admin: 06/11/24 12:52 Dose: 1 gm Trazodone HCl (Trazodone Hcl 50 Mg Tablet) 50 mg PO BEDTIME PRN PRN Reason: Insomnia Last Admin: 06/10/24 21:44 Dose: 50 mg Vancomycin HCl (Vancomycin Hcl 125 Mg Capsule) 125 mg PO Q6H [facility] Last Admin: 06/11/24 15:06 Dose: 125 mg Vitamin D (Cholecalciferol (Vitamin D3) 25 Mcg Tablet) 50 mcg PO DAILY [facility] Last Admin: 06/11/24 08:24 Dose: 50 mcg Home Medications ?Medication ?Instructions ?Recorded ?Confirmed ?Last Taken ?Type cholecalciferol (vitamin D3) 50 50 mcg PO DAILY 11/01/23 06/08/24 06/06/24 History mcg (2,000 unit) tablet folic acid 1 mg tablet 1 mg PO DAILY 11/01/23 06/08/24 06/06/24 History hydroxyzine HCl 25 mg tablet 25 mg PO TID PRN anxiety 11/01/23 06/08/24 Unknown History losartan 50 mg tablet 50 mg PO DAILY 11/01/23 06/08/24 06/06/24 History pantoprazole 40 mg tablet,delayed 40 mg PO DAILY@0630 11/01/23 06/08/24 06/06/24 History release trazodone 100 mg tablet 50 mg PO BEDTIME PRN Insomnia 11/01/23 06/08/24 05/05/24 History clonidine HCl 0.1 mg tablet 0.1 mg PO TID PRN Anxiety 12/10/23 06/08/24 Unknown History metoprolol succinate 25 mg 100 mg PO DAILY 12/10/23 06/08/24 06/06/24 History tablet,extended release 24 hr bupropion HCl 150 mg 24 hr tablet, 150 mg PO DAILY 02/26/24 06/08/24 06/06/24 History extended release citalopram 40 mg tablet 40 mg PO DAILY 02/26/24 06/08/24 06/06/24 History cyanocobalamin (vitamin B-12) 1,000 mcg PO DAILY 02/26/24 06/08/24 06/06/24 History 1,000 mcg tablet sucralfate 100 mg/mL oral 10 ml PO QIDACHS 05/06/24 06/08/24 06/06/24 History suspension thiamine mononitrate (vit B1) 100 100 mg PO DAILY 05/06/24 06/08/24 06/06/24 History mg tablet Physical Exam Vital Signs: Vital Signs: Last Vital Signs Temp 97.4 F 06/11/24 15:28 Pulse 57 06/11/24 15:28 Resp 18 06/11/24 15:28 BP 155/75 H 06/11/24 15:28 Pulse Ox 96 06/11/24 15:28 O2 Del Method Room Air 06/11/24 15:28 O2 Flow Rate 2 06/10/24 07:47 BMI result Body Mass Index 19.6 Const: General: cooperative HEENT: Head: Yes normal to inspection Face and sinus: Yes normal facial exam Mouth: Normal oral and palatal mucosa present Teeth and gingiva: dentition normal Eyes: General: appearance normal, both eyes and all related structures Pupils: Equal, round and reactive pupils present Resp: Effort & Inspection: normal respiratory effort Cardio: Rate: regular rate Rhythm: regular rhythm GI: Palpation (GI): Soft to palpation and nontender : General: Yes no CVA tenderness Back/Spine/Pelvis: Back: no CVA tenderness Skin: General skin exam: no rashes or lesions noted Neuro: General: moves all extremities Cranial nerves: Yes Equal, round and reactive pupils present Extrem: General: Yes normal to inspection Psych: Appearance: grossly normal Results Labs 06/10/24 05:45 06/11/24 09:23 Labs: BMP 06/11/24 09:23 Sodium 138 Potassium 3.7 D Chloride 97 Carbon Dioxide 30 H BUN 3 L Creatinine 0.56 Calcium 9.1 Microbiology Microbiology Results: Microbiology 06/07/24 15:40 Blood - Venous Blood Culture - Preliminary No growth after 48 hours. 06/07/24 19:30 Blood - Venous Blood Culture - Preliminary No growth after 48 hours. Assessment and Plan (1) Alcohol dependence: Status: Acute (2) Clostridium difficile colitis: Status: Acute Plan There is Cdiff gene and possible toxin too low for detection. She has diarrhea more likely due to alcohol withdrawal ,but would treat for Cdiff anyway cover all, This is first episode Would give po Vancomycin 125 mg qid for 10 days. Consider check HIV test.
--- NOTE | 2024-06-11 16:17 | P.CNID_ITS ---
History of Present Illness Data of Consult Service Date: 06/10/24 Requesting physician: Gavino Epperson Primary Care Provider: Ayala Patton MD HPI Reason for consult: diarrhea,nausea vomiting She has diarrhea,nausea,vomiting for four days. She has no fever or chills. She has Cdiff positive but negative toxin Review of Systems 2 Review of Systems: Yes all other systems are reviewed and are negative [facility] Past Medical History Medical History Clostridium difficile colitis Hypertension Alcohol use disorder, severe, dependence Alcohol use disorder Pancreatic insufficiency Gastroesophageal reflux disease Essential hypertension Mood disorder Cannabis use disorder Hepatitis C Tobacco use disorder Social History Social History Household Members: Family Housing: House Do you presently have visiting nurse or other home services: No Alcohol intake: current Alcohol intake frequency: 3 or more drinks per day Alcohol type: hard liquor Comment: refused bed alarm Patient Tobacco Use Status: Current everyday Tobacco user Tobacco use type: Cigarette Cigarettes Per Day: 10 e-Cigarette/Vaping Use: Currently Using Second Hand Smoke Exposure: No Substance Use Type: Marijuana Advance Directives Date on File: 12/10/23 service: No Meds Allergies Allergy/AdvReac Type Severity Reaction Status Date / Time No Known Allergies Allergy Verified 06/07/24 17:17 Active Medications: Current Medications Acetaminophen (Acetaminophen 325 Mg Tablet) 650 mg PO Q6H PRN PRN Reason: Pain, Mild (Pain Scale 1-3), fever or headache Amlodipine Besylate (Amlodipine Besylate 5 Mg Tablet) 5 mg PO DAILY SAMANTHA; Protocol Last Admin: 06/11/24 08:24 Dose: 5 mg Benzonatate (Benzonatate 100 Mg Capsule) 200 mg PO TID PRN PRN Reason: cough Bupropion HCl (Bupropion Hcl Xl 150 Mg Tab.Er.24h) 150 mg PO DAILY SAMANTHA Last Admin: 06/11/24 08:24 Dose: 150 mg Calcium Carbonate (Calcium Carbonate 750 Mg Tab.Chew) 750 mg PO Q4H PRN PRN Reason: Heartburn Last Admin: 06/08/24 18:23 Dose: 750 mg Clonidine HCl (Clonidine Hcl 0.1 Mg Tablet) 0.1 mg PO TID PRN; Protocol PRN Reason: Anxiety Last Admin: 06/11/24 12:42 Dose: 0.1 mg Cyanocobalamin (Cyanocobalamin (Vitamin B-12) 1,000 Mcg Tablet) 1,000 mcg PO DAILY [facility] Last Admin: 06/11/24 08:24 Dose: 1,000 mcg Enoxaparin Sodium (Enoxaparin Sodium 40 Mg/0.4 Ml Syringe) 40 mg SUBCUT Q24H [facility] Last Admin: 06/10/24 20:49 Dose: 40 mg Escitalopram Oxalate (Escitalopram Oxalate 5 Mg Tablet) 5 mg PO DAILY [facility] Last Admin: 06/11/24 08:24 Dose: 5 mg Folic Acid (Folic Acid 1 Mg Tablet) 1 mg PO DAILY [facility] Last Admin: 06/11/24 08:24 Dose: 1 mg Hydroxyzine HCl (Hydroxyzine Hcl 25 Mg Tablet) 25 mg PO TID PRN PRN Reason: anxiety Last Admin: 06/09/24 15:33 Dose: 25 mg Thiamine HCl 100 mg/ Sodium (Chloride) 101 mls @ 202 mls/hr IV DAILY [facility] Last Infusion: 06/11/24 09:49 Dose: Infused Losartan Potassium (Losartan Potassium 50 Mg Tablet) 50 mg PO DAILY [facility]; Protocol Last Admin: 06/11/24 08:23 Dose: 50 mg Magnesium Hydroxide (Milk Of Magnesia 30 Ml Oral.Susp) 30 ml PO DAILY PRN PRN Reason: Constipation Magnesium Oxide (Magnesium Oxide 400 Mg Tablet) 800 mg PO BIDPC [facility] Last Admin: 06/11/24 08:24 Dose: 800 mg Melatonin (Melatonin 3 Mg Tablet) 6 mg PO BEDTIME PRN PRN Reason: Insomnia Metoprolol Succinate (Metoprolol Succinate Er 100 Mg Tab.Er.24h) 100 mg PO DAILY [facility]; Protocol Last Admin: 06/11/24 08:24 Dose: 100 mg Morphine Sulfate (Morphine Sulfate 2 Mg/Ml Cartridge) 2 mg IVPUSH Q4H PRN; Protocol PRN Reason: Pain, Severe (Pain Scale 7-10) Last Admin: 06/11/24 15:06 Dose: 2 mg Omeprazole (Omeprazole 20 Mg Capsule.Dr) 20 mg PO DAILY@0630 [facility] Last Admin: 06/11/24 06:20 Dose: 20 mg Ondansetron HCl (Ondansetron Hcl 4 Mg/2 Ml Vial) 4 mg IVPUSH Q8H PRN PRN Reason: Nausea and Vomiting Pharmacy Consult (Consult Rx Etoh Phenob Im/Po) 1 each MISCELLANE ONCE PRN; Protocol PRN Reason: Consult order Phenobarbital (Phenobarbital 30 Mg Tablet) 30 mg PO BID [facility] Stop: 06/11/24 21:01 Last Admin: 06/11/24 08:23 Dose: 30 mg Phenobarbital (Phenobarbital 15 Mg Tablet) 15 mg PO DAILY [facility] Stop: 06/13/24 09:01 Sodium Chloride (0.9 % Sodium Chloride Flush 3 Ml Syringe) 3 ml IVFLUSH QSHIFT [facility] Last Admin: 06/11/24 08:25 Dose: 3 ml Sucralfate (Sucralfate Oral Suspension 1 Gm/10 Ml Oral.Susp) 1 gm PO QIDACHS [facility] Last Admin: 06/11/24 12:52 Dose: 1 gm Trazodone HCl (Trazodone Hcl 50 Mg Tablet) 50 mg PO BEDTIME PRN PRN Reason: Insomnia Last Admin: 06/10/24 21:44 Dose: 50 mg Vancomycin HCl (Vancomycin Hcl 125 Mg Capsule) 125 mg PO Q6H [facility] Last Admin: 06/11/24 15:06 Dose: 125 mg Vitamin D (Cholecalciferol (Vitamin D3) 25 Mcg Tablet) 50 mcg PO DAILY [facility] Last Admin: 06/11/24 08:24 Dose: 50 mcg Home Medications ?Medication ?Instructions ?Recorded ?Confirmed ?Last Taken ?Type cholecalciferol (vitamin D3) 50 50 mcg PO DAILY 11/01/23 06/08/24 06/06/24 History mcg (2,000 unit) tablet folic acid 1 mg tablet 1 mg PO DAILY 11/01/23 06/08/24 06/06/24 History hydroxyzine HCl 25 mg tablet 25 mg PO TID PRN anxiety 11/01/23 06/08/24 Unknown History losartan 50 mg tablet 50 mg PO DAILY 11/01/23 06/08/24 06/06/24 History pantoprazole 40 mg tablet,delayed 40 mg PO DAILY@0630 11/01/23 06/08/24 06/06/24 History release trazodone 100 mg tablet 50 mg PO BEDTIME PRN Insomnia 11/01/23 06/08/24 05/05/24 History clonidine HCl 0.1 mg tablet 0.1 mg PO TID PRN Anxiety 12/10/23 06/08/24 Unknown History metoprolol succinate 25 mg 100 mg PO DAILY 12/10/23 06/08/24 06/06/24 History tablet,extended release 24 hr bupropion HCl 150 mg 24 hr tablet, 150 mg PO DAILY 02/26/24 06/08/24 06/06/24 History extended release citalopram 40 mg tablet 40 mg PO DAILY 02/26/24 06/08/24 06/06/24 History cyanocobalamin (vitamin B-12) 1,000 mcg PO DAILY 02/26/24 06/08/24 06/06/24 History 1,000 mcg tablet sucralfate 100 mg/mL oral 10 ml PO QIDACHS 05/06/24 06/08/24 06/06/24 History suspension thiamine mononitrate (vit B1) 100 100 mg PO DAILY 05/06/24 06/08/24 06/06/24 History mg tablet Physical Exam 2 Vital Signs: Vital Signs: Last Vital Signs Temp 97.4 F 06/11/24 15:28 Pulse 57 06/11/24 15:28 Resp 18 06/11/24 15:28 BP 155/75 H 06/11/24 15:28 Pulse Ox 96 06/11/24 15:28 O2 Del Method Room Air 06/11/24 15:28 O2 Flow Rate 2 06/10/24 07:47 BMI result Body Mass Index 19.6 Const: General: cooperative HEENT: Head: Yes normal to inspection Face and sinus: Yes normal facial exam Mouth: Normal oral and palatal mucosa present Teeth and gingiva: d entition normal Eyes: General: appearance normal, both eyes and all related structures P upils: Equal, round and reactive pupils present Resp: Effort & Inspection: normal respiratory effort Cardio: Rate: regular rate Rhythm: regular rhythm GI: Palpation (GI): Soft to palpation and nontender : General: Yes no CVA tenderness Back/Spine/Pelvis: Back: no CVA tenderness Skin: General skin exam: no rashes or lesions noted Neuro: General: moves all extremities Cranial nerves: Yes Equal, round and reactive pupils present Extrem: General: Yes normal to inspection Psych: Appearance: grossly normal Results Labs 06/10/24 05:45 06/11/24 09:23 Labs: BMP 06/11/24 09:23 Sodium 138 Potassium 3.7 D Chloride 97 Carbon Dioxide 30 H BUN 3 L Creatinine 0.56 Calcium 9.1 Microbiology Microbiology Results: Microbiology 06/07/24 15:40 Blood - Venous Blood Culture - Preliminary No growth after 48 hours. 06/07/24 19:30 Blood - Venous Blood Culture - Preliminary No growth after 48 hours. Assessment and Plan (1) Clostridium difficile colitis: Status: Acute (2) Alcohol dependence: Status: Acute Plan She may have toxin below limit detection. She has positive alcohol score Would continue po Vancomycin 125 mg qid for 10 days. Consider check HIV test.
--- NOTE | 2024-06-11 16:41 | P.DS_ITS ---
DS: Providers Provider Date of Service: 06/12/24 Date of admission: 06/07/24 21:13 Date of discharge: 06/12/24 Primary care physician: Ayala Patton MD Consults: 06/07/24 22:56 Addiction Medicine Routine Consulting Provider: Addiction Covering Reason for consultation: alcohol use disorder 06/10/24 12:45 Consult to Infectious Diseases Routine Consulting Provider: [facility] [place] [facility] Reason for consultation: colitis, c dif Has provider been notified: No DS: Diagnosis Discharge Diagnosis (1) Clostridium difficile colitis: Status: Acute (2) Alcohol dependence: Status: Acute DS: Summary Hospital Course Hospital Course: from initial hpi: 48-year-old female with pertinent history of alcohol use disorder with history of alcohol withdrawal seizures, mood disorder, tobacco use disorder, marijuana use disorder, history of hepatitis-C status post outpatient treatment, chronic pancreatic insufficiency, gastroesophageal reflux disease, essential hypertension who presents to the emergency department for evaluation of abdominal pain. Patient states her symptoms started 2 days prior to presentation. She has been having upper abdominal discomfort that has been constant, progressive and without any relieving factors. Also has associated nausea and multiple episodes of nonbloody emesis. Does report multiple episodes of nonbloody diarrhea. Unable to tolerate p.o. intake. States her last drink was on the day of presentation. Frequent admissions to the hospital with alcohol withdrawal. Patient states she drinks about 5 nips per day. No fever, chills, chest discomfort, palpitations, shortness of breath, changes in urinary habits. In the emergency department, imaging with colitis and questionable divertic ulitis. Serum magnesium and potassium found to be low. Lactic acid found to be elevated hospital course: Patient was admitted for sepsis secondary to Clostridium difficile colitis. She was initially treated with IV Zosyn and p.o. vancomycin, seen by infectious disease who recommended completing course of p.o. vancomycin only. Patient's diarrhea resolved. She will complete course outpatient. For acute hypokalemia and hypomagnesemia she received replacement and will continue with magnesium supplements on discharge. For alcoholic fatty liver with chronic thrombocytopenia she remained stable. For alcohol dependence with withdrawal she was treated with phenobarbital protocol and withdrawal symptoms resolved. For hypertension she was continued on losartan but remained hypotensive so a mlodipine 5 mg daily was added. For mood disorder was continued on bupropion, Lexapro, trazodone, clonidine, hydroxyzine. Patient is feeling better will be discharged home. Time Attestation Discharge Coordination Time (in mins): 37 Quality: Safe Use of Opioids Does Pt have an Active Cancer Diagnosis on the Problem List?: No Quality: Stroke Does the patient have a stroke diagnosis?: No Physical Exam Vital Signs: Vital Signs: Last Vital Signs Temp 97.4 F 06/11/24 15:28 Pulse 57 06/11/24 15:28 Resp 18 06/11/24 15:28 BP 155/75 H 06/11/24 15:28 Pulse Ox 96 06/11/24 15:28 O2 Del Method Room Air 06/11/24 15:28 O2 Flow Rate 2 06/10/24 07:47 BMI result Body Mass Index 19.6 Const: General: cooperative HEENT: Head: Yes normal to inspection Face and sinus: Yes normal facial exam Mouth: Normal oral and palatal mucosa present Teeth and gingiva: dentition normal Eyes: General: appearance normal, both eyes and all related structures Pupils: Equal, round and reactive pupils present Resp: Effort & Inspection: normal respiratory effort Cardio: Rate: regular rate Rhythm: regular rhythm GI: Palpation (GI): Soft to palpation and nontender : General: Yes no CVA tenderness Back/Spine/Pelvis: Back: no CVA tenderness Skin: General skin exam: no rashes or lesions noted Neuro: General: moves all extremities Cranial nerves: Yes Equal, round and reactive pupils present Extrem: General: Yes normal to inspection Psych: Appearance: grossly normal DS: Data Data Completed and Pending Completed studies during hospitalization [Text1]: Procedures Detoxification Services for Substance Abuse Treatment (05/06/24) Labs on day of discharge: Laboratory Results - last 24 hr 06/11/24 09:23 Sodium 138 Potassium 3.7 D Chloride 97 Carbon Dioxide 30 H Anion Gap 15 BUN 3 L Creatinine 0.56 Estim Creat Clear Calc 99.1 Estimated GFR > 60 Random Glucose 142 H Calcium 9.1 Magnesium 1.3 L* Preliminary micro results at discharge 06/07/24 15:40 Blood Culture - Preliminary Blood - Venous No growth after 48 hours. 06/07/24 19:30 Blood Culture - Preliminary Blood - Venous No growth after 48 hours. Discharge Plan Discharge Anticipated Discharge Date/Time: 06/11/24 16:38 Patient Disposition: Home, Self-Care Discharge Diagnosis: cdif, low mag, alcohol dependence Referrals: Ayala Patton MD [Primary Care Provider] - 1 Week Discharge Medications: New amlodipine 5 mg Tablet 5 mg PO DAILY Qty: 90 0RF Protocol: Hold for SBP< HOLD for SBP < : 90 vancomycin 125 mg Capsule 125 mg PO Q6H Qty: 40 0RF Continued sucralfate 100 mg/mL suspension 10 ml PO QIDACHS Rx Instructions: swish in mouth and swallow thiamine mononitrate (vit B1) 100 mg tablet 100 mg PO DAILY ondansetron 4 mg tablet,disintegrating 4 mg PO Q8H PRN (Reason: nausea and vomiting) Qty: 20 0RF benzonatate 200 mg capsule 200 mg PO TID PRN (Reason: cough) Qty: 20 0RF losartan 50 mg tablet 50 mg PO DAILY trazodone 100 mg tablet 50 mg PO BEDTIME PRN (Reason: Insomnia) pantoprazole 40 mg tablet,delayed release (DR/EC) 40 mg PO DAILY@0630 folic acid 1 mg tablet 1 mg PO DAILY hydroxyzine HCl 25 mg tablet 25 mg PO TID PRN (Reason: anxiety) cholecalciferol (vitamin D3) 50 mcg (2,000 unit) tablet 50 mcg PO DAILY metoprolol succinate 25 mg tablet extended release 24 hr 100 mg PO DAILY clonidine HCl 0.1 mg tablet 0.1 mg PO TID PRN (Reason: Anxiety) citalopram 40 mg tablet 40 mg PO DAILY cyanocobalamin (vitamin B-12) 1,000 mcg tablet 1,000 mcg PO DAILY bupropion HCl 150 mg tablet extended release 24 hr 150 mg PO DAILY magnesium oxide 400 mg (241.3 mg magnesium) tablet 400 mg PO BID Qty: 60 0RF Discharge Orders: Discharge Order (Routine); Ordered 06/11/24 Ordered By: Carlos Lerma Diet: Advance to usual diet Activity on Discharge: As tolerated Stand Alone Forms: Patient Portal Discharge page Print Language: Mongolian Care Plan Goals: recovery Health Concerns: cdif, etoh, low mag Plan of Treatment: 10 more days po vancomycin, continue mag supplement, avoid alcohol Assessment: see above
[2024-06-11] MEDS: hydrOXYzine HCL 25 MG TABLET PO (17:17)
[2024-06-11] MEDS: traZODone HCL 50 MG TABLET PO (21:57)
[2024-06-12] VITALS: BP 124/78; PULSE 68; RESP 16; TEMP 36.9; O2SAT 97
[2024-06-12] MEDS: vancomycin HCL 125 MG CAPSULE PO ×3 (02:47→13:39)
[2024-06-12] MEDS: Omeprazole 20 MG CAPSULE.DR PO (05:34)
[2024-06-12] MEDS: Morphine Sulfate 2 MG/ML CARTRIDGE IVPUSH ×2 (05:56→10:22)
[2024-06-12 06:46] LABS: Hematocrit 33.5 % (37.0-47.0); Hemoglobin 11.1 g/dl (12.0-16.0); Mean Corpuscular HGB Conc 33.1 g/dl (31.0-35.0); Mean Corpuscular Hemoglobin 35.5 pg (27.0-33.0); Mean Platelet Volume 10.2 fL (9.4-12.3); NRBC Pct Auto 0.6 /100WBC (0.0-0.2); Platelet Count 130 X10*3/uL (160-400); Red Blood Count 3.13 X10*6/uL (4.20-5.50); Red Cell Distribution Width 14.5 % (11.0-16.0); White Blood Count 5.1 X10*3/uL (4.8-10.8)
[2024-06-12 07:01] LABS: Anion Gap 11 (12-20); Blood Urea Nitrogen 9 mg/dL (9-16); Calcium 9.6 mg/dL (8.4-10.2); Carbon Dioxide 32 mmol/L (22-29); Chloride 102 mmol/L (96-108); Creatinine Clr Calc Pharmacy 89.5; Estimated Glomerular Filt Rate > 60; Glucose Fasting 111 mg/dL (60-99); Magnesium 1.4 mg/dL (1.6-2.6); Potassium 3.4 mmol/L (3.3-5.1); Sodium 142 mmol/L (135-145)
[2024-06-12 07:33] VITALS: BP 132/80; PULSE 68; RESP 16; TEMP 36.3; O2SAT 98
[2024-06-12] MEDS: Magnesium Sulfate/H2O 2 GM/50 ML PIGGYBACK IV (08:08)
[2024-06-12] MEDS: Metoprolol Succinate ER 100 MG TAB.ER.24H PO (08:08)
[2024-06-12] MEDS: Escitalopram Oxalate 5 MG TABLET PO (08:08)
[2024-06-12] MEDS: Magnesium Oxide 400 MG TABLET 800 MG PO (08:08)
[2024-06-12] MEDS: PHENobarbitaL 15 MG TABLET PO (08:08)
[2024-06-12] MEDS: Cyanocobalamin (Vitamin B-12) 1,000 MCG TABLET 1000 MCG PO (08:08)
[2024-06-12] MEDS: Cholecalciferol (Vitamin D3) 25 MCG TABLET 50 MCG PO (08:08)
[2024-06-12] MEDS: Sucralfate Oral Suspension 1 GM/10 ML ORAL.SUSP PO ×2 (08:08→10:22)
[2024-06-12] MEDS: Folic Acid 1 MG TABLET PO (08:09)
[2024-06-12] MEDS: buPROPion HCl XL 150 MG TAB.ER.24H PO (08:09)
[2024-06-12] MEDS: Losartan Potassium 50 MG TABLET PO (08:09)
[2024-06-12] MEDS: amLODIPine Besylate 5 MG TABLET PO (08:09)
[2024-06-12] MEDS: 0.9 % Sodium Chloride Flush 3 ML SYRINGE IVFLUSH (08:09)
[2024-06-12] MEDS: cloNIDine HCL 0.1 MG TABLET PO (08:15)
--- NOTE | 2024-06-12 08:26 | MHC.CM.PN ---
PT WILL DC HOME TODAY WITH NO SERVICES VIA PRIVATE TRANSPORT
[2024-06-12] MEDS: Thiamine HCL 100 MG in 0.9 % Sodium Chloride 100 ML 202 MG IV (09:45)
--- NOTE | 2024-06-12 10:44 | HO.PM.IMPN ---
Subjective Subjective Date of Service: 06/12/24 Interval History: still with diarrhea, withdrawal improved Physical Exam Vital Signs: Vital Signs: Last Vital Signs Temp 97.4 F 06/12/24 07:33 Pulse 68 06/12/24 07:33 Resp 16 06/12/24 07:33 BP 132/80 06/12/24 07:33 Pulse Ox 98 06/12/24 07:33 O2 Del Method Room Air 06/12/24 07:33 O2 Flow Rate 2 06/10/24 07:47 BMI result Body Mass Index 19.6 Const: General: cooperative HEENT: Head: Yes normal to inspection Face and sinus: Yes normal facial exam Mouth: Normal oral and palatal mucosa present Teeth and gingiva: dentition normal Eyes: General: appearance normal, both eyes and all related structures Pupils: Equal, round and reactive pupils present Resp: Effort & Inspection: normal respiratory effort Cardio: Rate: regular rate Rhythm: regular rhythm GI: Palpation (GI): Soft to palpation and nontender : General: Yes no CVA tenderness Back/Spine/Pelvis: Back: no CVA tenderness Skin: General skin exam: no rashes or lesions noted Neuro: General: moves all extremities Cranial nerves: Yes Equal, round and reactive pupils present Extrem: General: Yes normal to inspection Psych: Appearance: grossly normal Objective Data Active Medications Acetaminophen (Acetaminophen 325 Mg Tablet) 650 mg PO Q6H PRN PRN Reason: Pain, Mild (Pain Scale 1-3), fever or headache Amlodipine Besylate (Amlodipine Besylate 5 Mg Tablet) 5 mg PO DAILY SAMANTHA; Protocol Last Admin: 06/12/24 08:09 Dose: 5 mg Documented By: KATY Benzonatate (Benzonatate 100 Mg Capsule) 200 mg PO TID PRN PRN Reason: cough Bupropion HCl (Bupropion Hcl Xl 150 Mg Tab.Er.24h) 150 mg PO DAILY SAMANTHA Last Admin: 06/12/24 08:09 Dose: 150 mg Documented By: KATY Calcium Carbonate (Calcium Carbonate 750 Mg Tab.Chew) 750 mg PO Q4H PRN PRN Reason: Heartburn Last Admin: 06/08/24 18:23 Dose: 750 mg Documented By: KATY Clonidine HCl (Clonidine Hcl 0.1 Mg Tablet) 0.1 mg PO TID PRN; Protocol PRN Reason: Anxiety Last Admin: 06/12/24 08:15 Dose: 0.1 mg Documented By: KATY Cyanocobalamin (Cyanocobalamin (Vitamin B-12) 1,000 Mcg Tablet) 1,000 mcg PO DAILY [facility] Last Admin: 06/12/24 08:08 Dose: 1,000 mcg Documented By: KATY Enoxaparin Sodium (Enoxaparin Sodium 40 Mg/0.4 Ml Syringe) 40 mg SUBCUT Q24H [facility] Last Admin: 06/11/24 18:26 Dose: Not Given Documented By: HARI Non-Admin Reason: hold per md Comments: plt low Escitalopram Oxalate (Escitalopram Oxalate 5 Mg Tablet) 5 mg PO DAILY [facility] Last Admin: 06/12/24 08:08 Dose: 5 mg Documented By: KATY Folic Acid (Folic Acid 1 Mg Tablet) 1 mg PO DAILY [facility] Last Admin: 06/12/24 08:09 Dose: 1 mg Documented By: KATY Hydroxyzine HCl (Hydroxyzine Hcl 25 Mg Tablet) 25 mg PO TID PRN PRN Reason: anxiety Last Admin: 06/11/24 17:17 Dose: 25 mg Documented By: HARI Thiamine HCl 100 mg/ Sodium (Chloride) 101 mls @ 202 mls/hr IV DAILY [facility] Last Infusion: 06/12/24 10:25 Dose: Infused Documented By: KATY Losartan Potassium (Losartan Potassium 50 Mg Tablet) 50 mg PO DAILY [facility]; Protocol Last Admin: 06/12/24 08:09 Dose: 50 mg Documented By: KATY Magnesium Hydroxide (Milk Of Magnesia 30 Ml Oral.Susp) 30 ml PO DAILY PRN PRN Reason: Constipation Magnesium Oxide (Magnesium Oxide 400 Mg Tablet) 800 mg PO BIDPC [facility] Last Admin: 06/12/24 08:08 Dose: 800 mg Documented By: KATY Melatonin (Melatonin 3 Mg Tablet) 6 mg PO BEDTIME PRN PRN Reason: Insomnia Metoprolol Succinate (Metoprolol Succinate Er 100 Mg Tab.Er.24h) 100 mg PO DAILY [facility]; Protocol Last Admin: 06/12/24 08:08 Dose: 100 mg Documented By: KATY Morphine Sulfate (Morphine Sulfate 2 Mg/Ml Cartridge) 2 mg IVPUSH Q4H PRN; Protocol PRN Reason: Pain, Severe (Pain Scale 7-10) Last Admin: 06/12/24 10:22 Dose: 2 mg Documented By: KATY Omeprazole (Omeprazole 20 Mg Capsule.) 20 mg PO DAILY@0630 [facility] Last Admin: 06/12/24 05:34 Dose: 20 mg Documented By: TONY Ondansetron HCl (Ondansetron Hcl 4 Mg/2 Ml Vial) 4 mg IVPUSH Q8H PRN PRN Reason: Nausea and Vomiting Pharmacy Consult (Consult Rx Etoh Phenob Im/Po) 1 each MISCELLANE ONCE PRN; Protocol PRN Reason: Consult order Phenobarbital (Phenobarbital 15 Mg Tablet) 15 mg PO DAILY [facility] Stop: 06/13/24 09:01 Last Admin: 06/12/24 08:08 Dose: 15 mg Documented By: KATY Sodium Chloride (0.9 % Sodium Chloride Flush 3 Ml Syringe) 3 ml IVFLUSH QSHIFT [facility] Last Admin: 06/12/24 08:09 Dose: 3 ml Documented By: KATY Sucralfate (Sucralfate Oral Suspension 1 Gm/10 Ml Oral.Susp) 1 gm PO QIDACHS [facility] Last Admin: 06/12/24 10:22 Dose: 1 gm Documented By: KATY Trazodone HCl (Trazodone Hcl 50 Mg Tablet) 50 mg PO BEDTIME PRN PRN Reason: Insomnia Last Admin: 06/11/24 21:57 Dose: 50 mg Documented By: TONY Vancomycin HCl (Vancomycin Hcl 125 Mg Capsule) 125 mg PO Q6H [facility] Last Admin: 06/12/24 08:09 Dose: 125 mg Documented By: KATY Vitamin D (Cholecalciferol (Vitamin D3) 25 Mcg Tablet) 50 mcg PO DAILY [facility] Last Admin: 06/12/24 08:08 Dose: 50 mcg Documented By: KATY Labs 06/12/24 05:37 06/12/24 05:37 Labs: Laboratory Results - last 24 hr 06/12/24 05:37 MCV 107.0 H MCH 35.5 H MCHC 33.1 RDW 14.5 Plt Count 130 L D MPV 10.2 Absolute Nucleated RBC 0.030 H Nucleated RBC % (auto) 0.6 H Anion Gap 11 L Estim Creat Clear Calc 89.5 Estimated GFR > 60 Fasting Glucose 111 H Calcium 9.6 Magnesium 1.4 L* Assessment and Plan (1) Alcohol dependence: Status: Acute Plan 48yo F with AUD + hx withdrawal seizures, tobacco abuse + marijuana use, mood disorder, hx HCV s/p treatment, chronic pancreatic insufficiency, HTN, GERD admitted for EtOH withdrawal but also found to be septic due to colitis sepsis due to cdif colitis, still with diarrhea initially treated with zosyn and po vanc, ID appreciated, zosyn stopped, continue vanco hypoK - repleted, recehck Chronic thrmobocytopenia--d/t chronic liver disease, level may have dropped from IvF and Lovenox hypoMg - replete with IV + PO; recheck level in AM acute lactic acidosis - improved after fluid resuscitation EtOH withdrawal/AUD - phenobarbital taper, thiamine, folic acid, Addiction Medicine HTN - losartan mood disorder - continue bupropion, escitalopram, trazodone, clonidine, hydroxyzine VTE ppx - enoxaparin dispo - eventual home reason for continued hospitalization:awaiting formed stools, low mag Total time managing care of this patient today: 35 minutes. Quality Stroke Does the patient have a stroke diagnosis?: No VTE Prior VTE?: No VTE Risk Level:: Medical - moderate - high VTE Device Contraindication: Treatment Not Indicated VTE Drug Contraindication: N/A - Med Ordered
[2024-06-12 14:06] LABS: Appearance Urine Cloudy; Color Urine Dark Yellow; Glucose Urine UA Negative (Negative); Leukocyte Esterase Urine Small (1+) (Negative); Nitrite Urine Negative (Negative); UMIC TRIGGER UA YES; Urine Blood Negative (Negative); Urine Ketones Trace mg/dL (Negative); Urine Protein Trace mg/dL (Neg-Trace)
[2024-06-12 14:22] LABS: Bacteria Urine 1+ (None Seen); Hyaline Casts Urine 0-2 /LPF (0-2); RBC Urine 0-2 /HPF (0-2); WBC Urine 0-5 /HPF (0-5)
== END 2024-06-12 15:31 | disposition home or self-care (01) | DRG 720 ==
LOC: HO.ED 21:13 → HO.EDOVER 21:19 → HO.S3 23:12
PROVIDERS: Family Medicine; Physician Assistant; Registered Nurse Emergency; Admitting Provider Student in an Organized Health Care Education/Training Program; Emergency Provider Emergency Medicine Emergency Medical Services; PCP Internal Medicine; Visit Provider Internal Medicine
DX: A41.4 Sepsis due to anaerobes (principal); E87.21 Acute metabolic acidosis; A04.72 Enterocolitis due to Clostridium difficile, not specified as recurrent; K70.0 Alcoholic fatty liver; K86.89 Other specified diseases of pancreas; D69.59 Other secondary thrombocytopenia; E83.42 Hypomagnesemia; Z22.1 Carrier of other intestinal infectious diseases; F10.239 Alcohol dependence with withdrawal, unspecified; R63.6 Underweight; Z68.1 Body mass index [BMI] 19.9 or less, adult; F17.210 Nicotine dependence, cigarettes, uncomplicated; Y90.8 Blood alcohol level of 240 mg/100 ml or more; E87.6 Hypokalemia; I10 Essential (primary) hypertension; F39 Unspecified mood [affective] disorder; Z71.6 Tobacco abuse counseling; Z79.899 Other long term (current) drug therapy
CPT/HCPCS: 36415; 71045; 74177; 80048; 80053; 80307; 81001; 81003; 82140; 82150; 82550; 82803; 83605; 83690; 83735; 84484; 84702; 85025; 85027; 86140; 87040; 87324; 87493; 87507; 89055; 93005; 99285; J1650; J1885; J2270; J2405; J2543; J2560; J3411; J3475; J3480; J7120; Q9967

== ENCOUNTER → 2024-06-07 17:17 | Outpatient (BNV) | payer OTHER, SELFPAY | PROVIDERS: Admitting Provider Student in an Organized Health Care Education/Training Program; Emergency Provider Emergency Medicine Emergency Medical Services; PCP Internal Medicine; Visit Provider Internal Medicine Cardiovascular Disease | DX: R94.31 Abnormal electrocardiogram [ECG] [EKG] (principal) | CPT/HCPCS: 93010 ==

== ENCOUNTER → 2024-06-07 21:13 | Outpatient (BNV) | payer OTHER, SELFPAY | PROVIDERS: Admitting Provider Student in an Organized Health Care Education/Training Program; Emergency Provider Emergency Medicine Emergency Medical Services; PCP Internal Medicine; Visit Provider Student in an Organized Health Care Education/Training Program | DX: A04.72 Enterocolitis due to Clostridium difficile, not specified as recurrent (principal); F10.20 Alcohol dependence, uncomplicated | CPT/HCPCS: 99223; 99232; 99239 ==

== ENCOUNTER → 2024-06-07 21:13 | Outpatient (BNV) | payer OTHER, SELFPAY | PROVIDERS: Admitting Provider Student in an Organized Health Care Education/Training Program; Emergency Provider Emergency Medicine Emergency Medical Services; PCP Internal Medicine; Visit Provider Internal Medicine | DX: A04.72 Enterocolitis due to Clostridium difficile, not specified as recurrent (principal); F10.20 Alcohol dependence, uncomplicated | CPT/HCPCS: 99222 ==

== ENCOUNTER 2024-06-25 00:45 | Emergency (ER) | payer OTHER, SELFPAY ==
[2024-06-25 00:53] VITALS: BP 114/67; PULSE 114; RESP 18; TEMP 36.6; O2SAT 93; BMI 20.9
[2024-06-25 01:13] LABS: MANUAL DIFF FLAG NO
[2024-06-25 01:14] LABS: Basophils Absolute Auto 0.1 X10*3/uL (0.0-0.2); Basophils Percent Auto 1.4 % (0-2); Eosinophils Absolute Auto 0.1 X10*3/uL (0.0-0.4); Eosinophils Percent Auto 0.9 % (0-4); Hematocrit 32.4 % (37.0-47.0); Hemoglobin 11.8 g/dl (12.0-16.0); Imm Gran Abs Auto 0.01 X10*3/uL (0.00-0.03); Imm Gran Pct Auto 0.2 % (0.0-0.4); Lymphocytes Absolute Auto 2.7 X10*3/uL (1.2-4.9); Lymphocytes Percent Auto 42.2 % (20-40); Mean Corpuscular HGB Conc 36.4 g/dl (31.0-35.0); Mean Corpuscular Hemoglobin 36.2 pg (27.0-33.0); Mean Corpuscular Volume 99.4 fL (80.0-98.0); Mean Platelet Volume 8.9 fL (9.4-12.3); Monocytes Absolute Auto 0.3 X10*3/uL (0.1-1.2); Monocytes Percent Auto 4.3 % (2-11); Neutrophils Absolute Auto 3.3 x10*3/uL (2.0-8.3); Platelet Count 142 X10*3/uL (160-400); Red Blood Count 3.26 X10*6/uL (4.20-5.50); Red Cell Distribution Width 14.2 % (11.0-16.0); White Blood Count 6.5 X10*3/uL (4.8-10.8)
--- NOTE | 2024-06-25 01:20 | ED_ITS ---
HPI - Dizziness General Chief Complaint: Dizziness Stated Complaint: dizzy, leg pain Time Seen by Provider: 06/25/24 01:19 Source: patient and old records reviewed Mode of arrival: ambulatory Limitations: no limitations History of Present Illness ED Provider: JORGE A GALDAMEZ Narrative: 49 yo female with PMH of ETOH abuse, mood disorder, hypomagnesemia, here with c/o dizziness, poor PO intake, leg cramps has hx of low K and magnesium. She has chronic diarrhea. She has cut down her drinking. She has not vomited. She denies withdrawal symptoms she is drinking daily. Her partner and her deny falls. She is not eating as much as she should. She feels weak and dizzy when she stands because she is mostly just drinking. MD elicited complaint: dizziness and lightheadedness Onset (ago): day(s) (Sunday) Timing: gradual onset and intermittent Severity: moderate Description: lightheadedness Context: change in body position History of similar symptoms: Yes Exacerbating factors: movement/ambulation and change in body position Relieving factors: remaining still Associated symptoms: malaise and weakness Related Data Home Medications ?Medication ?Instructions ?Recorded ?Confirmed cholecalciferol (vitamin D3) 50 50 mcg PO DAILY 11/01/23 06/08/24 mcg (2,000 unit) tablet folic acid 1 mg tablet 1 mg PO DAILY 11/01/23 06/08/24 hydroxyzine HCl 25 mg tablet 25 mg PO TID PRN anxiety 11/01/23 06/08/24 losartan 50 mg tablet 50 mg PO DAILY 11/01/23 06/08/24 pantoprazole 40 mg tablet,delayed 40 mg PO DAILY@0630 11/01/23 06/08/24 release trazodone 100 mg tablet 50 mg PO BEDTIME PRN Insomnia 11/01/23 06/08/24 clonidine HCl 0.1 mg tablet 0.1 mg PO TID PRN Anxiety 12/10/23 06/08/24 metoprolol succinate 25 mg 100 mg PO DAILY 12/10/23 06/08/24 tablet,extended release 24 hr bupropion HCl 150 mg 24 hr tablet, 150 mg PO DAILY 02/26/24 06/08/24 extended release citalopram 40 mg tablet 40 mg PO DAILY 02/26/24 06/08/24 cyanocobalamin (vitamin B-12) 1,000 mcg PO DAILY 02/26/24 06/08/24 1,000 mcg tablet sucralfate 100 mg/mL oral 10 ml PO QIDACHS 05/06/24 06/08/24 suspension thiamine mononitrate (vit B1) 100 100 mg PO DAILY 05/06/24 06/08/24 mg tablet Previous Rx's ?Medication ?Instructions ?Recorded magnesium oxide 400 mg (241.3 mg 400 mg PO BID #60 tabs 02/29/24 magnesium) tablet ondansetron 4 mg disintegrating 4 mg PO Q8H PRN nausea and 05/09/24 tablet vomiting #20 tabs benzonatate 200 mg capsule 200 mg PO TID PRN cough #20 caps 05/24/24 amlodipine 5 mg tablet 5 mg PO DAILY #90 tabs 06/11/24 vancomycin 125 mg capsule 125 mg PO Q6H #40 caps 06/11/24 Allergies Allergy/AdvReac Type Severity Reaction Status Date / Time No Known Allergies Allergy Verified 06/25/24 00:58 Review of Systems 2 Review of Systems: Constitutional : No Fever, No Chills, No Fatigue ENT/Mouth : No sore throat, No Rhinorrhea Eyes: No Eye Pain, No Swelling, No Redness Cardiovascular : No Chest Pain, No SOB, No Dyspnea on Exertion Respiratory : No Cough, No Sputum Gastrointestinal : No Nausea, No Vomiting, pos Diarrhea, No abdominal Pain Genitourinary : No Dysuria, No Urinary Frequency, No Hematuria, Musculoskeletal : No joint pain, pos Myalgias, No Joint Swelling Skin : No Skin Lesions, No rash Neuro : No Weakness, No Numbness, pos Dizziness, no Headache Psych : No Anxiety/Panic, No Depression All other systems reviewed and are negative [facility] Past Medical History Attestation statement: The following information was validated with the patient. Source: old records reviewed Medical History Clostridium difficile colitis Hypertension Alcohol use disorder, severe, dependence Alcohol use disorder Pancreatic insufficiency Gastroesophageal reflux disease Essential hypertension Mood disorder Cannabis use disorder Hepatitis C Tobacco use disorder Social History Social History Household Members: Family Housing: House Do you presently have visiting nurse or other home services: No Alcohol intake: current Alcohol intake frequency: 3 or more drinks per day Alcohol type: hard liquor Comment: refused bed alarm Patient Tobacco Use Status: Current everyday Tobacco user Tobacco use type: Cigarette Cigarettes Per Day: 10 Smoked in Last 30 Days: Yes e-Cigarette/Vaping Use: Currently Using Second Hand Smoke Exposure: No Use of substances other than those prescribed or required for medical reasons: Yes Substance Use Type: Crack/Cocaine and Marijuana Last Used Substance: Hours (ago) Advance Directives: Yes Advance Directives on File: Yes Advance Directives Date on File: 12/10/23 service: No Physical Exam 2 Vital Signs: Vital Signs: Last Vital Signs Temp 98.0 F 06/25/24 04:56 Pulse 97 06/25/24 04:56 Resp 16 06/25/24 04:56 BP 133/69 06/25/24 04:56 Pulse Ox 95 06/25/24 04:56 O2 Del Method Room Air 06/25/24 04:56 BMI result Body Mass Index 20.9 Appearance: Alert. Oriented X3. No acute distress. no signs of withdrawal, steady gait Eyes: Pupils equal, round and reactive to light. ENT: Pharynx normal. atraumatic Neck: Normal inspection. Neck supple. CVS: mildly tachycardic heart rate and rhythm. Pulses normal. Respiratory: No respiratory distress. Abdomen: Soft and atraumatic Skin: Skin warm and dry. Normal skin color. Normal skin turgor. Extremities: No lower extremity edema. Neuro: Oriented X 3. No motor deficit. No sensory deficit. Course Course Course Narrative: steady gait to and from bathroom Medications Administered Discontinued Medications Generic Name Dose Route Start Last Admin Trade Name Freq PRN Reason Stop Dose Admin Magnesium Sulfate 2 gm in 50 mls @ 25 mls/hr 06/25/24 01:31 06/25/24 03:45 Magnesium Sulfate/H2o IV 06/25/24 03:30 Infused ONCE ONE Infusion Sodium Chloride 1,000 mls @ 999 mls/hr 06/25/24 01:43 06/25/24 02:56 Ns IV 06/25/24 02:43 Infused .Q1H1M ONE Infusion Thiamine HCl 200 mg/ Sodium 102 mls @ 204 mls/hr 06/25/24 01:47 06/25/24 03:24 Chloride IV 06/25/24 02:16 Infused ONCE ONE Infusion Potassium Chloride 40 meq 06/25/24 01:38 06/25/24 01:44 Potassium Chloride Packet 20 Meq Packet PO 06/25/24 01:39 40 meq ONCE ONE Administration Medical Decision Making Medical Decision Making [facility] Narrative: 49 yo female with PMH of ETOH abuse, mood disorder, hypomagnesemia, here with c/o positional dizziness, not feeling well, muscle cramps - she is not in withdrawal right now she likely has low K and magnesium. She has had this multiple times, no trauma reported, no SI. At this time labs, IVF, thiamine ordered. Suspect poor PO intake in setting of ETOH abuse. Repletion and hydration ordered. No GIB symptoms or infectious symptoms reported. Has magnesium at home. Patient at 1.3 IV 2 grams will get her loaded and her qtc is normal. Patient will get repleted and DC home. Does not want detox. Differential Diagnosis Differential Diagnoses: The differential diagnosis associated with the presentation includes hypomag and hypokalemia, ETOH abuse, dehydration Admission/Observation Consideration of admission/observation: Escalation of care including admission/observation considered feels better stable for DC, steady gait, clinically sober Lab Data [facility] Lab Attestation statement: I reviewed the patient's lab results. 06/25/24 01:09 06/25/24 01:09 Labs: Lab Results 06/25/24 Range/Units 01:09 WBC 6.5 (4.8-10.8) X10*3/uL RBC 3.26 L (4.20-5.50) X10*6/uL Hgb 11.8 L (12.0-16.0) g/dl Hct 32.4 L (37.0-47.0) % MCV 99.4 H (80.0-98.0) fL MCH 36.2 H (27.0-33.0) pg MCHC 36.4 H (31.0-35.0) g/dl RDW 14.2 (11.0-16.0) % Plt Count 142 L (160-400) X10*3/uL MPV 8.9 L (9.4-12.3) fL Immature Gran % (Auto) 0.2 (0.0-0.4) % Neut % (Auto) 51.0 (45-73) % Lymph % (Auto) 42.2 H (20-40) % Carver % (Auto) 4.3 (2-11) % Eos % (Auto) 0.9 (0-4) % Baso % (Auto) 1.4 (0-2) % Lymph # (Auto) 2.7 (1.2-4.9) X10*3/uL Carver # (Auto) 0.3 (0.1-1.2) X10*3/uL Eos # (Auto) 0.1 (0.0-0.4) X10*3/uL Baso # (Auto) 0.1 (0.0-0.2) X10*3/uL Abs Immat Gran (auto) 0.01 (0.00-0.03) X10*3/uL Absolute Neuts (auto) 3.3 (2.0-8.3) x10*3/uL Absolute Nucleated RBC 0.000 (0.0-0.012) X10*3/uL Nucleated RBC % (auto) 0.0 (0.0-0.2) /100WBC Sodium 134 L (135-145) mmol/L Potassium 3.0 L (3.3-5.1) mmol/L Chloride 100 (96-108) mmol/L Carbon Dioxide 19 L (22-29) mmol/L Anion Gap 18 (12-20) BUN 11 (9-16) mg/dL Creatinine 0.68 (0.5-1.4) mg/dL Estim Creat Clear Calc 81.9 Estimated GFR > 60 Random Glucose 91 (60-115) mg/dL Calcium 8.6 D (8.4-10.2) mg/dL Magnesium 1.3 L* (1.6-2.6) mg/dL Total Bilirubin 0.2 (0.0-1.0) mg/dL AST 109 H (5-31) U/L ALT 44 H (0-31) U/L Alkaline Phosphatase 163 H (39-117) U/L Total Protein 7.3 (6.5-8.0) g/dL Albumin 4.0 (3.5-5.0) g/dL Ethyl Alcohol 215 mg/dL Independent Interpretation I performed an independent interpretation of an: EKG Interpretation: Rate: 96 Rhythm: NSR [place]: normal Normal P waves. Normal OG. Normal QRS complex. ST T wave : normal no PROSPER qTC: 475 prior studies: no acute ischemia The study has been interpreted contemporaneously by me. . Independent Historian Clinical information obtained from an independent historian. History obtained from or confirmed by: Spouse External Record Review External record reviewed: Inpatient record Critical Care Time Critical Care Time Critical Care Time: Yes Total Critical Care Time: 45 Attestation: IV magnesium to repletion, review of records, IV thiamine, IVF bolus I attest to this time spent taking care of the patient Discharge Plan Discharge Clinical Impression: Hypomagnesemia, Acute hypokalemia Alcohol dependence Qualifiers: Substance use status: with intoxication Complication of substance-induced condition: uncomplicated Qualified Code(s): F10.220 - Alcohol dependence with intoxication, uncomplicated Patient Disposition: Home, Self-Care Instructions: Hypokalemia (ED), Abuse of Alcohol (ED), Hypomagnesemia (ED) Additional Instructions: continue your medications please follow up with your primary care doctor return for any worsening symptoms or concerns decrease your alcohol intake Prescriptions: No Action sucralfate 100 mg/mL suspension 10 ml PO QIDACHS Rx Instructions: swish in mouth and swallow thiamine mononitrate (vit B1) 100 mg tablet 100 mg PO DAILY ondansetron 4 mg tablet,disintegrating 4 mg PO Q8H PRN (Reason: nausea and vomiting) Qty: 20 0RF benzonatate 200 mg capsule 200 mg PO TID PRN (Reason: cough) Qty: 20 0RF losartan 50 mg tablet 50 mg PO DAILY trazodone 100 mg tablet 50 mg PO BEDTIME PRN (Reason: Insomnia) pantoprazole 40 mg tablet,delayed release (DR/EC) 40 mg PO DAILY@0630 folic acid 1 mg tablet 1 mg PO DAILY hydroxyzine HCl 25 mg tablet 25 mg PO TID PRN (Reason: anxiety) cholecalciferol (vitamin D3) 50 mcg (2,000 unit) tablet 50 mcg PO DAILY metoprolol succinate 25 mg tablet extended release 24 hr 100 mg PO DAILY clonidine HCl 0.1 mg tablet 0.1 mg PO TID PRN (Reason: Anxiety) citalopram 40 mg tablet 40 mg PO DAILY cyanocobalamin (vitamin B-12) 1,000 mcg tablet 1,000 mcg PO DAILY bupropion HCl 150 mg tablet extended release 24 hr 150 mg PO DAILY magnesium oxide 400 mg (241.3 mg magnesium) tablet 400 mg PO BID Qty: 60 0RF amlodipine 5 mg Tablet 5 mg PO DAILY Qty: 90 0RF Protocol: Hold for SBP< HOLD for SBP < : 90 vancomycin 125 mg Capsule 125 mg PO Q6H Qty: 40 0RF Interventions: ED Discharge Assessment Last Done: 06/25/24 04:56 Discharge Date/Time: 06/25/24 04:57 Print Language: Paraguayan
--- NOTE | 2024-06-25 01:20 | ECG_ITS ---
Test Reason : hypomagnesemia Blood Pressure : / mmHG Vent. Rate : 096 BPM Atrial Rate : 096 BPM P-R Int : 160 ms QRS Dur : 094 ms QT Int : 376 ms P-R-T Axes : 050 047 055 degrees QTc Int : 475 ms Normal sinus rhythm Normal ECG When compared with ECG of 07-JUN-2024 17:27, No significant change was found Referred By: Zainab Ramirez Electronically Signed By:SINGH PELAEZ
[2024-06-25 01:31] LABS: Alanine Aminotransferase 44 U/L (0-31); Alkaline Phosphatase 163 U/L (39-117); Anion Gap 18 (12-20); Aspartate Amino Transferase 109 U/L (5-31); Bilirubin Total 0.2 mg/dL (0.0-1.0); Blood Urea Nitrogen 11 mg/dL (9-16); Calcium 8.6 mg/dL (8.4-10.2); Carbon Dioxide 19 mmol/L (22-29); Chloride 100 mmol/L (96-108); Creatinine Clr Calc Pharmacy 81.9; Estimated Glomerular Filt Rate > 60; Glucose Random 91 mg/dL (60-115); Magnesium 1.3 mg/dL (1.6-2.6); Sodium 134 mmol/L (135-145); Total Protein 7.3 g/dL (6.5-8.0)
[2024-06-25] MEDS: Magnesium Sulfate/H2O 2 GM/50 ML PIGGYBACK IV (01:44)
[2024-06-25] MEDS: 0.9 % Sodium Chloride 1,000 ML 999 ML IV (01:44)
[2024-06-25] MEDS: Potassium Chloride Packet 20 MEQ PACKET 40 MEQ PO (01:44)
[2024-06-25 01:54] LABS: Ethanol 215 mg/dL
--- NOTE | 2024-06-25 01:56 | PC.NURSE ---
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 pt also reports used marijuana and cocaine earlier today, reports has narcan at home. refuses detox for all above. pt denies si/hi. pt is axox4, fiance at bedside. placed on heart monitor nsr 96 bpm. iv established, ivf and mag infusing per mar. call yarbrough within reach.
[2024-06-25] MEDS: Thiamine HCL 200 MG in 0.9 % Sodium Chloride 100 ML 204 MG IV (02:54)
[2024-06-25 04:31] VITALS: BP 133/69; PULSE 97; RESP 16; TEMP 36.7; O2SAT 95
--- NOTE | 2024-06-25 04:54 | PC.NURSE ---
pt is axox4 ambulatory with steady gait. pt educated on d/c by RN and MD. pt stated concerns to this RN as i cant believe im being discharged right now when my magnesium is low. pt educated as received IV replenishment and has Magnesium supplements at home. pt educated to stop drinking alcohol and offered detox help, pt refused. asked if wanted to speak to MD again about discharge/further testing/interventions and pt refused. pt stated just take the IV out im leaving. educated pt to return to ED if any worsening or new symptoms. pt verbalized understanding. d/c with jose david.
[2024-06-25 04:56] VITALS: BP 133/69; PULSE 97; RESP 16; TEMP 36.7; O2SAT 95
== END 2024-06-25 04:57 | disposition home or self-care (01) ==
PROVIDERS: Emergency Provider Emergency Medicine; PCP Internal Medicine
DX: E83.42 Hypomagnesemia (principal); E87.6 Hypokalemia; F10.220 Alcohol dependence with intoxication, uncomplicated; Y90.7 Blood alcohol level of 200-239 mg/100 ml; R42 Dizziness and giddiness; I10 Essential (primary) hypertension; Z79.899 Other long term (current) drug therapy
CPT/HCPCS: 36415; 80053; 80307; 83735; 85025; 93005; 96361; 96365; 99284; J3411; J3475

== ENCOUNTER 2024-07-03 22:45 | Inpatient (IN) | payer OTHER, SELFPAY ==
--- NOTE | ~2024-07-03 | CT_ITS ---
EXAMINATION: CT ABDOMEN AND PELVIS WITH CONTRAST CLINICAL INFORMATION: Reason for Exam upper abdo pain, pls eval for pancreatitis COMPARISON: 06/07/2024 TECHNIQUE: Multidetector volumetric images were obtained from the superior aspect of the liver through the pubic symphysis following administration 85 mL of Omnipaque 350 intravenous contrast. Sagittal and coronal reformatted images were obtained on the technologist's workstation. Oral contrast: No This CT examination was performed using dose optimization techniques as appropriate, variously including the following: *Automated exposure control *Adjustment of mA and/or kV according to patient size (this includes techniques or standardized protocols for targeted exams where dose is matched to indication/reason for exam; i.e. extremities or head) *Use of iterative reconstruction technique DLP: 355 mGy-cm FINDINGS: LUNG BASES: The visualized lung bases are unremarkable. LIVER, GALLBLADDER, AND BILIARY TREE: The liver demonstrates hypoattenuation consistent with steatosis. There is redemonstration of a few scattered small hypoattenuating foci in the liver, too small to adequately characterize. No biliary ductal dilatation is identified. The gallbladder is unremarkable with no evidence of radiopaque gallstones, gallbladder wall thickening, or obvious pericholecystic inflammatory changes. PANCREAS: Unremarkable. SPLEEN: Unremarkable. ADRENAL GLANDS: Unremarkable. KIDNEYS AND URETERS: Bilateral nephrograms are symmetric. No hydronephrosis or obstructing calculus identified. BLADDER: Unremarkable. GASTROINTESTINAL TRACT: No evidence of bowel obstruction. Colonic diverticulosis is noted. Although suboptimally assessed due to incomplete distention, there is mural prominence throughout most of the colon, which could reflect a mild colitis in the proper clinical setting. The appendix is unremarkable. No free air or significant free fluid is identified. ABDOMINAL WALL: No significant hernia is appreciated. LYMPH NODES: Normal. VASCULAR: There is atherosclerotic calcification along the aorta. PELVIC VISCERA: IUD is present in the uterus. OSSEOUS STRUCTURES: Facet arthropathy of the lower lumbar spine. Degenerative endplate changes of the lower thoracic spine. CT/CT abdomen pelvis w IV con IMPRESSION: Although not well distended, there is mural prominence throughout most of the colon, which could reflect a mild colitis in the proper clinical setting. No findings of pancreatitis. Electronically signed by: Louie Iqbal MD 07/04/2024 06:10 AM EDT
[2024-07-03 22:50] VITALS: BP 162/87; PULSE 103; RESP 20; TEMP 36.3; O2SAT 99; BMI 20.6
[2024-07-03 23:32] LABS: MANUAL DIFF FLAG NO
[2024-07-03 23:35] LABS: Basophils Percent Auto 0.5 % (0-2); Eosinophils Percent Auto 0.5 % (0-4); Hematocrit 33.1 % (37.0-47.0); Hemoglobin 11.6 g/dl (12.0-16.0); Imm Gran Abs Auto 0.03 X10*3/uL (0.00-0.03); Imm Gran Pct Auto 0.5 % (0.0-0.4); Lymphocytes Absolute Auto 1.1 X10*3/uL (1.2-4.9); Lymphocytes Percent Auto 20.1 % (20-40); Mean Corpuscular Hemoglobin 35.3 pg (27.0-33.0); Mean Corpuscular Volume 100.6 fL (80.0-98.0); Mean Platelet Volume 10.3 fL (9.4-12.3); Monocytes Absolute Auto 0.4 X10*3/uL (0.1-1.2); Monocytes Percent Auto 6.7 % (2-11); NRBC Pct Auto 0.7 /100WBC (0.0-0.2); Neutrophils Absolute Auto 3.9 x10*3/uL (2.0-8.3); Neutrophils Percent Auto 71.7 % (45-73); Platelet Count 123 X10*3/uL (160-400); Red Blood Count 3.29 X10*6/uL (4.20-5.50); Red Cell Distribution Width 15.6 % (11.0-16.0); White Blood Count 5.5 X10*3/uL (4.8-10.8)
[2024-07-03 23:55] LABS: Alanine Aminotransferase 17 U/L (0-31); Albumin Level 4.2 g/dL (3.5-5.0); Alkaline Phosphatase 163 U/L (39-117); Anion Gap 20 (12-20); Aspartate Amino Transferase 32 U/L (5-31); Blood Urea Nitrogen 4 mg/dL (9-16); Calcium 9.7 mg/dL (8.4-10.2); Carbon Dioxide 25 mmol/L (22-29); Chloride 98 mmol/L (96-108); Creatinine Clr Calc Pharmacy 75.1; Estimated Glomerular Filt Rate > 60; Glucose Random 149 mg/dL (60-115); Lipase 13 U/L (8-78); Potassium 2.7 mmol/L (3.3-5.1); Sodium 140 mmol/L (135-145); Total Protein 7.4 g/dL (6.5-8.0)
[2024-07-04] VITALS (13 sets, daily range): BP systolic 113–205; BP diastolic 70–100; PULSE 75–102; RESP 14–20; TEMP 35.8–37; O2SAT 93–100; BMI 20.9
--- NOTE | 2024-07-04 02:00 | PC.NURSE ---
pt from [facility], with c/o of abd pain. Pt states, she has been short of breath at times, states she had c diff recently, she has been having loose dark brown stools, at times. Pt requested pain medicine. Pt states she was at [facility] about a week and half ago, and they gave her po mag, and potassium and sent her home.
--- NOTE | 2024-07-04 02:28 | PC.NURSE ---
pt requested crackers, ok by , pt given crackers, and gingerale. Waiting on US results
--- NOTE | 2024-07-04 03:53 | PC.NURSE ---
pt asking how much longer and states she is in pain, informed the pt, the doctor was working through the patients and would be in to see her as soon as he could. Understanding voiced
--- NOTE | 2024-07-04 05:06 | ED.GENADULT ---
HPI - General Adult General Chief complaint: Abdominal Pain Stated complaint: abd pain ,vomiting Time Seen by Provider: 07/04/24 05:06 History of Present Illness ED Provider: Gray GALDAMEZ narrative: The patient is a 49-year-old woman with a history of alcoholism. She says that she often has problems with the low magnesium. She says she has also had problems with pancreatitis. She says that for the past 2 weeks she has had pains in her legs. She went to [facility] and was prescribed oral magnesium. She comes to the emergency room today because over the last 24 hours she has developed abdominal pain that she feels is similar to previous pancreatitis. She has also had nausea and vomiting. Related Data Home Medications ?Medication ?Instructions ?Recorded ?Confirmed cholecalciferol (vitamin D3) 50 50 mcg PO DAILY 11/01/23 06/08/24 mcg (2,000 unit) tablet folic acid 1 mg tablet 1 mg PO DAILY 11/01/23 06/08/24 hydroxyzine HCl 25 mg tablet 25 mg PO TID PRN anxiety 11/01/23 06/08/24 losartan 50 mg tablet 50 mg PO DAILY 11/01/23 06/08/24 pantoprazole 40 mg tablet,delayed 40 mg PO DAILY@0630 11/01/23 06/08/24 release trazodone 100 mg tablet 50 mg PO BEDTIME PRN Insomnia 11/01/23 06/08/24 clonidine HCl 0.1 mg tablet 0.1 mg PO TID PRN Anxiety 12/10/23 06/08/24 metoprolol succinate 25 mg 100 mg PO DAILY 12/10/23 06/08/24 tablet,extended release 24 hr bupropion HCl 150 mg 24 hr tablet, 150 mg PO DAILY 02/26/24 06/08/24 extended release citalopram 40 mg tablet 40 mg PO DAILY 02/26/24 06/08/24 cyanocobalamin (vitamin B-12) 1,000 mcg PO DAILY 02/26/24 06/08/24 1,000 mcg tablet sucralfate 100 mg/mL oral 10 ml PO QIDACHS 05/06/24 06/08/24 suspension thiamine mononitrate (vit B1) 100 100 mg PO DAILY 05/06/24 06/08/24 mg tablet Previous Rx's ?Medication ?Instructions ?Recorded magnesium oxide 400 mg (241.3 mg 400 mg PO BID #60 tabs 02/29/24 magnesium) tablet ondansetron 4 mg disintegrating 4 mg PO Q8H PRN nausea and 05/09/24 tablet vomiting #20 tabs benzonatate 200 mg capsule 200 mg PO TID PRN cough #20 caps 05/24/24 amlodipine 5 mg tablet 5 mg PO DAILY #90 tabs 06/11/24 vancomycin 125 mg capsule 125 mg PO Q6H #40 caps 06/11/24 Allergies Allergy/AdvReac Type Severity Reaction Status Date / Time No Known Allergies Allergy Verified 07/03/24 22:52 Review of Systems Review of Systems: Yes all other systems are reviewed and are negative [facility] Past Medical History Medical History Clostridium difficile colitis Hypertension Alcohol use disorder, severe, dependence Alcohol use disorder Pancreatic insufficiency Gastroesophageal reflux disease Essential hypertension Mood disorder Cannabis use disorder Hepatitis C Tobacco use disorder Social History Social History Household Members: Family Housing: House Do you presently have visiting nurse or other home services: No Alcohol intake: current Alcohol intake frequency: 3 or more drinks per day Alcohol type: hard liquor Comment: refused bed alarm Patient Tobacco Use Status: Current everyday Tobacco user Tobacco use type: Cigarette Cigarettes Per Day: 10 Smoked in Last 30 Days: Yes e-Cigarette/Vaping Use: Currently Using Second Hand Smoke Exposure: No Use of substances other than those prescribed or required for medical reasons: Yes Substance Use Type: Crack/Cocaine and Marijuana Substance Use Frequency: Chronic Longstanding Advance Directives: Yes Advance Directives on File: Yes Advance Directives Date on File: 12/10/23 Do you have a plan to hurt others: No Plan Patient : No (IUD) service: No Physical Exam ED Vital Signs: Vital Signs - 24 hr 07/03/24 22:50 07/04/24 01:49 07/04/24 04:35 Temperature 97.4 F 98.6 F 98.3 F Pulse Rate 103 H 91 90 Respiratory Rate 20 14 16 Blood Pressure 162/87 H 205/100 H 153/82 H Pulse Oximetry 99 96 98 Oxygen Delivery Method Room Air Room Air Room Air Oxygen Flow Rate 07/04/24 05:46 07/04/24 06:31 07/04/24 08:00 Temperature 98.6 F Pulse Rate 102 H 95 94 Respiratory Rate 15 20 18 Blood Pressure 187/97 H 158/90 H 162/92 H Pulse Oximetry 99 93 100 Oxygen Delivery Method Room Air Room Air Nasal Cannula Oxygen Flow Rate 2 BMI result Body Mass Index 20.6 Const Other: The patient is a chronically ill looking 49-year-old woman. She looks older than her age. She was retching. HENMT Head: Yes normal to inspection Face and sinus: Yes normal facial exam Mouth: Normal oral and palatal mucosa present and moist mucous membranes Eyes General: appearance normal, both eyes and all related structures Neck Neck: Yes no JVD Resp Effort & Inspection: normal respiratory effort Auscultation: clear to auscultation bilaterally Cardio Rate: regular rate Rhythm: regular rhythm Heart sounds: S1 normal heart sound present and S2 normal heart sound present GI Other: There is some mild generalized abdominal tenderness without focal tenderness or rebound Skin Other: Skin is pale and dry Neuro Other: The patient is awake and alert. She seems reasonably well oriented. Cranial nerves are grossly intact. She moves her extremities symmetrically. She seems grossly neurologically intact although she is mildly tremulous. Extrem Other: No calf swelling or tenderness. No peripheral edema. Medications Administered Generic Name Dose Route Start Last Admin Trade Name Freq PRN Reason Stop Dose Admin Lactated Ringer's 1,000 mls @ 100 mls/hr 07/04/24 08:45 07/04/24 08:51 Lr IVCONT 07/05/24 04:44 100 mls/hr .Q10H SAMANTHA Administration Morphine Sulfate 2 mg 07/04/24 08:41 07/04/24 08:54 Morphine Sulfate 4 Mg/Ml Cartridge IVPUSH 2 mg Q4H PRN Administration Pain, Severe (Pain Scale 7-10) Protocol Discontinued Medications Generic Name Dose Route Start Last Admin Trade Name Freq PRN Reason Stop Dose Admin Droperidol 1.25 mg 07/04/24 05:10 07/04/24 05:37 Droperidol 5 Mg/2 Ml Vial IVPUSH 07/04/24 05:11 1.25 mg ONCE ONE Administration Magnesium Sulfate 2 gm in 50 mls @ 25 mls/hr 07/04/24 05:15 07/04/24 06:44 Magnesium Sulfate/H2o IV 07/04/24 07:14 Infused ONCE ONE Infusion Potassium Chloride 10 meq in 100 mls @ 100 mls/hr 07/04/24 05:15 07/04/24 07:56 Potassium Chloride/H20 IV 07/04/24 07:14 Infused Q1H SAMANTHA Infusion Sodium Chloride 1,000 mls @ 999 mls/hr 07/04/24 05:30 07/04/24 07:56 Ns IV 07/04/24 06:30 Infused .Q1H1M SAMANTHA Infusion Iohexol 85 ml 07/04/24 05:23 07/04/24 05:23 Iohexol 350 Mg/Ml 100 Ml Infus..Btl IV 07/04/24 05:24 85 ml ONCE ONE Administration Morphine Sulfate 4 mg 07/04/24 05:10 07/04/24 05:38 Morphine Sulfate 4 Mg/Ml Cartridge IVPUSH 07/04/24 05:11 4 mg ONCE ONE Administration Protocol Pantoprazole Sodium 80 mg 07/04/24 06:19 07/04/24 06:35 Pantoprazole Sodium 40 Mg/10 Ml Vial IVPUSH 07/04/24 06:20 80 mg ONCE ONE Administration Phenobarbital Sodium 260 mg 07/04/24 08:00 07/04/24 08:08 Phenobarbital Sodium 130 Mg/Ml Im Once IM 07/04/24 08:01 260 mg ONCE ONE Administration Protocol Medical Decision Making Medical Decision Making [facility] Narrative: The patient is a 49-year-old woman with a history of alcoholism who has had alcoholic pancreatitis in the past. She also has had multiple episodes of potassium and magnesium disturbances related to her alcohol use. She presents today complaining of epigastric pain, nausea, and vomiting. Her abdominal exam does not seem surgical. Her lipase is normal. A CT of the abdomen and pelvis does not show any acute findings. Perhaps she has gastritis as a cause of her abdominal discomfort and nausea. The patient was treated with 4 mg of morphine IV and 1.25 mg of droperidol IV. This seemed to stop the retching. Her CT scan was negative. I re-examined the patient. She seemed more tremulous. Her potassium is low. Her magnesium was low. She was given 2 g of IV magnesium. I have also ordered supplemental potassium. I think given her electrolyte disorder she will likely need hospitalization. The patient was admitted to the hospitalist service. Lab Data 07/03/24 23:27 07/03/24 23:27 Labs: Lab Results 07/03/24 Range/Units 23:27 WBC 5.5 (4.8-10.8) X10*3/uL RBC 3.29 L (4.20-5.50) X10*6/uL Hgb 11.6 L (12.0-16.0) g/dl Hct 33.1 L (37.0-47.0) % MCV 100.6 H (80.0-98.0) fL MCH 35.3 H (27.0-33.0) pg MCHC 35.0 (31.0-35.0) g/dl RDW 15.6 (11.0-16.0) % Plt Count 123 L (160-400) X10*3/uL MPV 10.3 (9.4-12.3) fL Immature Gran % (Auto) 0.5 H (0.0-0.4) % Neut % (Auto) 71.7 (45-73) % Lymph % (Auto) 20.1 (20-40) % [place] % (Auto) 6.7 (2-11) % Eos % (Auto) 0.5 (0-4) % Baso % (Auto) 0.5 (0-2) % Lymph # (Auto) 1.1 L (1.2-4.9) X10*3/uL [place] # (Auto) 0.4 (0.1-1.2) X10*3/uL Eos # (Auto) 0.0 (0.0-0.4) X10*3/uL Baso # (Auto) 0.0 (0.0-0.2) X10*3/uL Abs Immat Gran (auto) 0.03 (0.00-0.03) X10*3/uL Absolute Neuts (auto) 3.9 (2.0-8.3) x10*3/uL Absolute Nucleated RBC 0.040 H (0.0-0.012) X10*3/uL Nucleated RBC % (auto) 0.7 H (0.0-0.2) /100WBC Sodium 140 (135-145) mmol/L Potassium 2.7 L* (3.3-5.1) mmol/L Chloride 98 (96-108) mmol/L Carbon Dioxide 25 (22-29) mmol/L Anion Gap 20 (12-20) BUN 4 L (9-16) mg/dL Creatinine 0.77 (0.5-1.4) mg/dL Estim Creat Clear Calc 75.1 Estimated GFR > 60 Random Glucose 149 H (60-115) mg/dL Calcium 9.7 D (8.4-10.2) mg/dL Magnesium 1.1 L* (1.6-2.6) mg/dL Total Bilirubin 1.0 (0.0-1.0) mg/dL AST 32 H (5-31) U/L ALT 17 (0-31) U/L Alkaline Phosphatase 163 H (39-117) U/L Total Protein 7.4 (6.5-8.0) g/dL Albumin 4.2 (3.5-5.0) g/dL Lipase 13 (8-78) U/L Ethyl Alcohol < 10 mg/dL Discharge Plan Discharge Clinical Impression: Acute hypokalemia, Hypomagnesemia, Alcoholism, Abdominal pain with vomiting Patient Disposition: Admitted As Inpatient
[2024-07-04] MEDS: iohexoL 350 MG/ML 100 ML INFUS..BTL 85 ML IV (05:23)
[2024-07-04 05:26] LABS: Ethanol < 10 mg/dL; Magnesium 1.1 mg/dL (1.6-2.6)
[2024-07-04] MEDS: droPERidol 5 MG/2 ML VIAL 1.25 MG IVPUSH (05:37)
[2024-07-04] MEDS: Morphine Sulfate 4 MG/ML CARTRIDGE IVPUSH (05:38)
[2024-07-04] MEDS: 0.9 % Sodium Chloride 1,000 ML 999 ML IV (05:38)
[2024-07-04] MEDS: Magnesium Sulfate/H2O 2 GM/50 ML PIGGYBACK IV (05:39)
[2024-07-04] MEDS: Potassium Chloride/H20 10 MEQ/100 ML PIGGYBACK 100 MEQ IV ×6 (05:40→13:59)
--- NOTE | 2024-07-04 06:03 | PC.NURSE ---
pt's O2 sat kept dropping to 88-89%, pt placed on O2/2L/NC, informed MD
[2024-07-04] MEDS: Pantoprazole Sodium 40 MG/10 ML VIAL 80 MG IVPUSH (06:35)
--- NOTE | 2024-07-04 07:02 | PC.NURSE ---
report given to Muna RAY
[2024-07-04] MEDS: PHENobarbitaL sodium 130 MG/ML IM ONCE 260 MG IM (08:08)
--- NOTE | 2024-07-04 08:45 | P.HPHOSP_ITS ---
History of Present Illness Date of Service: 07/04/24 Chief Complaint: nausea/vomiting/abdominal pain The patient is a 49-year-old female with a past medical history of hypertension, depression/anxiety, alcohol abuse and dependence who presents to the emergency room with a several day history of intractable nausea and vomiting plus epigastric sharp abdominal pain. Patient denies any hematemesis or coffee- grounds. She reports no rectal bleeding. She reports that her last drink was on the day prior to admission. She reports drinking 5 shots of spirits this past week, which is decreased from her typical 10 drinks daily. She reports prior pancreatitis as well as prior alcohol withdrawal. She indicates desire for alcohol cessation. In the emergency room the patient was found to have multiple electrolyte abnormalities including hypomagnesemia and hypokalemia both of which have been repleted with IV. Her lipase is within normal limits and her CT imaging does not show concerns for pancreatitis. She has been treated with IV fluids, IV analgesics and antiemetics. She continues to endorse epigastric abdominal pain. Her CIWA is starting to rise and she has been initiated on phenobarbital for alcohol withdrawal. She will now be admitted for further care. Review of Systems 2 Review of Systems: Negative except HPI/interval history. [facility] Medical History Clostridium difficile colitis Hypertension Alcohol use disorder, severe, dependence Alcohol use disorder Pancreatic insufficiency Gastroesophageal reflux disease Essential hypertension Mood disorder Cannabis use disorder Hepatitis C Tobacco use disorder Social History Household Members: Family Housing: House Do you presently have visiting nurse or other home services: No Alcohol intake: current Alcohol intake frequency: 3 or more drinks per day Alcohol type: hard liquor Comment: refused bed alarm Patient Tobacco Use Status: Current everyday Tobacco user Tobacco use type: Cigarette Cigarettes Per Day: 10 Smoked in Last 30 Days: Yes e-Cigarette/Vaping Use: Currently Using Second Hand Smoke Exposure: No Use of substances other than those prescribed or required for medical reasons: Yes Substance Use Type: Crack/Cocaine and Marijuana Substance Use Frequency: Chronic Longstanding Advance Directives: Yes Advance Directives on File: Yes Advance Directives Date on File: 12/10/23 Do you have a plan to hurt others: No Plan Patient : No (IUD) service: No Meds Allergies Allergy/AdvReac Type Severity Reaction Status Date / Time No Known Allergies Allergy Verified 07/03/24 22:52 Active Medications: Current Medications Pharmacy Consult (Consult Rx Etoh Phenob Im/Po) 1 each MISCELLANE ONCE PRN; Protocol PRN Reason: Consult order Phenobarbital (Phenobarbital 15 Mg Tablet) 45 mg PO BID SAMANTHA; Protocol Stop: 07/06/24 09:01 Phenobarbital (Phenobarbital 15 Mg Tablet) 15 mg PO BID SAMANTHA; Protocol Stop: 07/08/24 09:01 Phenobarbital (Phenobarbital 15 Mg Tablet) 15 mg PO DAILY SAMANTHA; Protocol Stop: 07/10/24 09:01 Phenobarbital Sodium (Phenobarbital Sodium 130 Mg/Ml Vial Im Q3hx2) 195 mg IM Q3H SAMANTHA; Protocol Stop: 07/04/24 14:01 Home Medications ?Medication ?Instructions ?Recorded ?Confirmed ?Last Taken ?Type cholecalciferol (vitamin D3) 50 50 mcg PO DAILY 11/01/23 06/08/24 06/06/24 History mcg (2,000 unit) tablet folic acid 1 mg tablet 1 mg PO DAILY 11/01/23 06/08/24 06/06/24 History hydroxyzine HCl 25 mg tablet 25 mg PO TID PRN anxiety 11/01/23 06/08/24 Unknown History losartan 50 mg tablet 50 mg PO DAILY 11/01/23 06/08/24 06/06/24 History pantoprazole 40 mg tablet,delayed 40 mg PO DAILY@0630 11/01/23 06/08/24 06/06/24 History release trazodone 100 mg tablet 50 mg PO BEDTIME PRN Insomnia 11/01/23 06/08/24 05/05/24 History clonidine HCl 0.1 mg tablet 0.1 mg PO TID PRN Anxiety 12/10/23 06/08/24 Unknown History metoprolol succinate 25 mg 100 mg PO DAILY 12/10/23 06/08/24 06/06/24 History tablet,extended release 24 hr bupropion HCl 150 mg 24 hr tablet, 150 mg PO DAILY 02/26/24 06/08/24 06/06/24 History extended release citalopram 40 mg tablet 40 mg PO DAILY 02/26/24 06/08/24 06/06/24 History cyanocobalamin (vitamin B-12) 1,000 mcg PO DAILY 02/26/24 06/08/24 06/06/24 History 1,000 mcg tablet sucralfate 100 mg/mL oral 10 ml PO QIDACHS 05/06/24 06/08/24 06/06/24 History suspension thiamine mononitrate (vit B1) 100 100 mg PO DAILY 05/06/24 06/08/24 06/06/24 History mg tablet Physical Exam 2 Vital Signs and Narrative: Vital Signs: Last Vital Signs Temp 98.6 F 07/04/24 06:31 Pulse 94 07/04/24 08:00 Resp 18 07/04/24 08:00 BP 162/92 H 07/04/24 08:00 Pulse Ox 100 07/04/24 08:00 O2 Del Method Nasal Cannula 07/04/24 08:00 O2 Flow Rate 2 07/04/24 08:00 BMI result Body Mass Index 20.6 Const: Other: Constitutional - Awake and Alert, No apparent distress Eyes - PERRLA, EOMI Cardiovascular - S1S2, RRR, No edema Respiratory - Normal lung expansion, Normal respiratory effort, No respiratory distress, CTA bilaterally Gastrointestinal - +ttp epigastric region; without rebound or guarding - No CVA tenderness Extremities - no calf tenderness bilaterally, no swelling Musculoskeletal - Normal inspection, normal ROM Skin - Warm/Dry Neurological - Alert & oriented x3, No focal deficit Psychological - Appropriate affect Results Labs 07/03/24 23:27 07/03/24 23:27 Labs: Laboratory Results - last 24 hr 07/03/24 23:27 MCV 100.6 H MCH 35.3 H MCHC 35.0 RDW 15.6 Plt Count 123 L MPV 10.3 Immature Gran % (Auto) 0.5 H Neut % (Auto) 71.7 Lymph % (Auto) 20.1 [place] % (Auto) 6.7 Eos % (Auto) 0.5 Baso % (Auto) 0.5 Lymph # (Auto) 1.1 L [place] # (Auto) 0.4 Eos # (Auto) 0.0 Baso # (Auto) 0.0 Abs Immat Gran (auto) 0.03 Absolute Neuts (auto) 3.9 Absolute Nucleated RBC 0.040 H Nucleated RBC % (auto) 0.7 H Anion Gap 20 Estim Creat Clear Calc 75.1 Estimated GFR > 60 Random Glucose 149 H Calcium 9.7 D Magnesium 1.1 L* Total Bilirubin 1.0 AST 32 H ALT 17 Alkaline Phosphatase 163 H Total Protein 7.4 Albumin 4.2 Lipase 13 Ethyl Alcohol < 10 Imaging Radiologist's Impressions: Impressions Abdomen/Pelvis CT 07/04/24 05:10 IMPRESSION: Although not well distended, there is mural prominence throughout most of the colon, which could reflect a mild colitis in the proper clinical setting. No findings of pancreatitis. Electronically signed by: Louie Iqbal MD 07/04/2024 06:10 AM EDT Assessment and Plan (1) Abdominal pain with vomiting: Status: Acute (2) Hypomagnesemia: Status: Acute (3) Acute hypokalemia: Status: Acute Plan 49-year-old female with a past medical history of hypertension, depression/anxiety, alcohol abuse and dependence who presents with a several day history of intractable nausea and vomiting with associated epigastric abdominal pain. She is also exhibiting signs of alcohol withdrawal and is found to have multiple electrolyte abnormalities. She was admitted for further treatment. 1. Epigastric abdominal pain, likely secondary to alcoholic gastritis We will treat with PPI and antiemetics IV fluids Diet as tolerated, we will start with clears If not improved may need a GI evaluation 2. Hypokalemia/hypomagnesemia Given 20 mEq of IV K and 2 g of IV Mag in the ED; will repeat labs now and suspect she will need further replacement 3. Alcohol abuse and dependence with acute alcohol withdrawal Patient's CIWA rising, has been initiated on phenobarb Continue phenobarb per protocol, monitor for electrolyte abnormalities Patient has been educated on alcohol cessation 4. HTN continue baseline meds 5. Mood continue baseline meds 6. Thrombocytopenia chronic and intermittently low - likely due to alcoholic liver disease monitor Full Code DVT pptx -- mechanical due to #1 and concern over GI bleed (if h/h stable, consider pharmacologic Pt with alcoholic gastritis and intractable n/v resulting in severe electrolyte abnormalities + signs of alcohol withdrawal -- therefore expected to require at least 2 midnights in the hospital, hence will be admitted as inpatient. Quality Stroke Does the patient have a stroke diagnosis?: No VTE Prior VTE?: No VTE Risk Level:: Medical - moderate - high VTE Device Contraindication: Treatment Not Indicated VTE Drug Contraindication: N/A - Med Ordered
[2024-07-04] MEDS: Lactated Ringers 1,000 ML 100 ML IVCONT ×2 (08:51→18:48)
[2024-07-04] MEDS: Morphine Sulfate 4 MG/ML CARTRIDGE 2 MG IVPUSH ×3 (08:54→20:34)
[2024-07-04] MEDS: Thiamine HCL 100 MG TABLET PO (09:28)
[2024-07-04] MEDS: Folic Acid 1 MG TABLET PO (09:28)
--- NOTE | 2024-07-04 09:33 | PC.NURSE ---
SPO2 on RA noted to be 90-94, does report hx of smoking daily, no known COPD hx. Denies SOB. Admitting provider alerted, no changes
[2024-07-04 09:50] LABS: Potassium 2.1 mmol/L (3.3-5.1)
[2024-07-04] MEDS: Potassium Chloride ER 20 MEQ TAB.ER.PRT 40 MEQ PO (10:11)
--- NOTE | 2024-07-04 10:25 | MHC.CM.PN ---
PT REPORTS SHE LIVES AT HOME WITH HER ADULT SON AND IS INDEPENDENT WITH CARE PT HAS NO DME AND NO SERVICES HCP ON FILE PCP: BRENNEN SOUZA DCP: HOME NO SERVICES VIA PRIVATE TRANSPORT
--- NOTE | 2024-07-04 10:33 | PC.NURSE ---
Admitting provider alerted about potassium critical lab, 2.1. Orders placed by provider and followed
--- NOTE | 2024-07-04 11:01 | PHA.MEDREC ---
Addendum entered by Bharath Figueroa [facility] 07/04/24 11:49: Med Rec checked by [facility] Original Note: Pharmacy Consult ? Medication Reconciliation Pharmacy has completed the medication reconciliation. Confirmed medications with patient. Patient confirmed she is still taking Clonidine 0.1mg 1 tab TID prn Anxiety confirmed with [facility] she last got that filled 03/12 qty 90 for 15 days, and she states she ran out of that medication last Saturday 06/23. She confirmed Folic Acid 1mg 1 tab daily, I confirmed with [facility] and they state she picked that up 03/24/24 for 90 qty for 90 days. Patient confirmed she is still taking Hydroxizine 25mg TID PRN for Anxiety and she states she ran out of that 3 weeks ago, [facility] confirmed she has not filled that with them since 12/27/23. Patient states she is still on Metoprolol 100mg 1 tab daily, [facility] states she has not picked that up since 02/28 qty 360 for 90 days. Patient states she is till on Pantoprazole 40mg 1 tab daily and in claims and per [facility] she last got that 03/20 qty 90 for 90 days. Patient confirmed she is taking Sucralfate 100mg/mL patient taking 10mg QIDACHS, [facility] confirmed she last got that 04/17 under the name brand Carafate 04/17/24 for 30 days. Patient confirmed she started Vancymycin 125mg originally suppose to go it 1 tab Q6H and patient is taking it once a day, [facility] had no history of it so I called [facility] and they confirmed we filled that for the patient on her Discharge 06/12 qty 40 for 10 days and patient confirmed she started this medication 06/12 when she was discharged from us. She states she last took her medications Monday 07/02.
[2024-07-04] MEDS: PHENobarbitaL sodium 130 MG/ML VIAL IM Q3Hx2 195 MG IM ×2 (11:33→14:01)
[2024-07-04] MEDS: Escitalopram Oxalate 20 MG TABLET PO (12:25)
[2024-07-04] MEDS: cloNIDine HCL 0.1 MG TABLET PO ×2 (13:21→22:26)
[2024-07-04 17:09] LABS: Potassium 3.4 mmol/L (3.3-5.1)
[2024-07-04] MEDS: Sucralfate Oral Suspension 1 GM/10 ML ORAL.SUSP PO ×2 (17:20→20:33)
[2024-07-04] MEDS: Omeprazole 20 MG CAPSULE.DR PO (17:20)
[2024-07-04] MEDS: PHENobarbitaL 15 MG TABLET 45 MG PO (20:33)
[2024-07-04] MEDS: Magnesium Oxide 400 MG TABLET PO (20:33)
[2024-07-04] MEDS: traZODone HCL 100 MG TABLET PO (22:28)
[2024-07-05] VITALS (7 sets, daily range): BP systolic 136–173; BP diastolic 52–92; PULSE 69–81; RESP 16–18; TEMP 35.7–36.6; O2SAT 92–99
[2024-07-05] MEDS: Sucralfate Oral Suspension 1 GM/10 ML ORAL.SUSP PO ×4 (05:47→20:39)
[2024-07-05] MEDS: Omeprazole 20 MG CAPSULE.DR PO ×2 (05:47→16:06)
[2024-07-05 07:29] LABS: PLT CLUMP 1
[2024-07-05 07:33] LABS: Hematocrit 27.9 % (37.0-47.0); Hemoglobin 9.8 g/dl (12.0-16.0); Mean Corpuscular HGB Conc 35.1 g/dl (31.0-35.0); Mean Corpuscular Volume 102.6 fL (80.0-98.0); Mean Platelet Volume 11.4 fL (9.4-12.3); Red Blood Count 2.72 X10*6/uL (4.20-5.50); Red Cell Distribution Width 16.4 % (11.0-16.0)
[2024-07-05 07:34] LABS: Platelet Count 93 X10*3/uL (160-400)
[2024-07-05 07:52] LABS: Alanine Aminotransferase 14 U/L (0-31); Albumin Level 3.2 g/dL (3.5-5.0); Alkaline Phosphatase 123 U/L (39-117); Anion Gap 14 (12-20); Aspartate Amino Transferase 28 U/L (5-31); Bilirubin Total 0.4 mg/dL (0.0-1.0); Blood Urea Nitrogen < 3 mg/dL (9-16); Calcium 8.9 mg/dL (8.4-10.2); Carbon Dioxide 28 mmol/L (22-29); Chloride 105 mmol/L (96-108); Creatinine Clr Calc Pharmacy 101.9; Estimated Glomerular Filt Rate > 60; Glucose Random 98 mg/dL (60-115); Potassium 3.4 mmol/L (3.3-5.1); Sodium 144 mmol/L (135-145); Total Protein 5.6 g/dL (6.5-8.0)
[2024-07-05] MEDS: 0.9 % Sodium Chloride Flush 3 ML SYRINGE IVFLUSH ×3 (08:33→20:39)
[2024-07-05] MEDS: Thiamine HCL 100 MG TABLET PO (08:35)
[2024-07-05] MEDS: Cyanocobalamin (Vitamin B-12) 1,000 MCG TABLET 1000 MCG PO (08:35)
[2024-07-05] MEDS: buPROPion HCl XL 150 MG TAB.ER.24H PO (08:35)
[2024-07-05] MEDS: Escitalopram Oxalate 20 MG TABLET PO (08:35)
[2024-07-05] MEDS: PHENobarbitaL 15 MG TABLET 45 MG PO ×2 (08:35→20:39)
[2024-07-05] MEDS: Cholecalciferol (Vitamin D3) 25 MCG TABLET 50 MCG PO (08:35)
[2024-07-05] MEDS: Folic Acid 1 MG TABLET PO (08:35)
[2024-07-05] MEDS: amLODIPine Besylate 5 MG TABLET PO (08:35)
[2024-07-05] MEDS: Magnesium Oxide 400 MG TABLET PO ×2 (08:35→20:38)
[2024-07-05] MEDS: cloNIDine HCL 0.1 MG TABLET PO ×3 (08:52→20:38)
[2024-07-05 12:12] LABS: Folate > 20.0 ng/mL (> or = 4.0); Vitamin B12 1386 pg/mL (200-900)
--- NOTE | 2024-07-05 12:28 | HO.PM.IMPN ---
Subjective Subjective Date of Service: 07/05/24 Interval History: seen and examined this morning follow up for etoh withdrawal, electrolyte abnormalities reporting b/l leg cramping, pain from both hips down front of legs, back to the heels and to the top of the foot and all 5 toes Review of Systems Review of Systems: Yes all other systems are reviewed and are negative Constitutional Constitutional: Denies chills and Denies fever(s) Cardiovascular Cardiovascular: Denies chest pain and Denies palpitations Endocrine Endocrine: Denies palpitations Physical Exam Vital Signs: Vital Signs: Last Vital Signs Temp 97.8 F 07/05/24 11:41 Pulse 76 07/05/24 11:41 Resp 18 07/05/24 11:41 BP 158/52 H 07/05/24 11:41 Pulse Ox 99 07/05/24 11:41 O2 Del Method Room Air 07/05/24 11:41 O2 Flow Rate 2 07/04/24 08:00 BMI result Body Mass Index 20.9 Const: General: alert and awake Nutritional Appearance: average body habitus Orientation/consciousness: patient oriented x3 Resp: Effort & Inspection: normal respiratory effort, able to speak in complete sentences, no respiratory distress and no use of accessory muscles Cardio: Rate: regular rate GI: Inspection: No distended Palpation (GI): Soft to palpation Neuro: General: patient oriented x3, moves all extremities and CN's II-XI intact bilaterally Objective Data Active Medications Acetaminophen (Acetaminophen 325 Mg Tablet) 650 mg PO Q6H PRN PRN Reason: Pain, Mild (Pain Scale 1-3), fever or headache Amlodipine Besylate (Amlodipine Besylate 5 Mg Tablet) 5 mg PO DAILY SAMANTHA; Protocol Last Admin: 07/05/24 08:35 Dose: 5 mg Documented By: MOLINA Bupropion HCl (Bupropion Hcl Xl 150 Mg Tab.Er.24h) 150 mg PO DAILY SAMANTHA Last Admin: 07/05/24 08:35 Dose: 150 mg Documented By: MOLINA Calcium Carbonate (Calcium Carbonate 750 Mg Tab.Chew) 750 mg PO Q4H PRN PRN Reason: Heartburn Clonidine HCl (Clonidine Hcl 0.1 Mg Tablet) 0.1 mg PO TID PRN; Protocol PRN Reason: Anxiety Last Admin: 07/05/24 08:52 Dose: 0.1 mg Documented By: MOLINA Cyanocobalamin (Cyanocobalamin (Vitamin B-12) 1,000 Mcg Tablet) 1,000 mcg PO DAILY [facility] Last Admin: 07/05/24 08:35 Dose: 1,000 mcg Documented By: MOLINA Escitalopram Oxalate (Escitalopram Oxalate 20 Mg Tablet) 20 mg PO DAILY [facility] Last Admin: 07/05/24 08:35 Dose: 20 mg Documented By: MOLINA Folic Acid (Folic Acid 1 Mg Tablet) 1 mg PO DAILY [facility] Last Admin: 07/05/24 08:35 Dose: 1 mg Documented By: MOLINA Hydroxyzine HCl (Hydroxyzine Hcl 25 Mg Tablet) 25 mg PO TID PRN PRN Reason: anxiety Magnesium Hydroxide (Milk Of Magnesia 30 Ml Oral.Susp) 30 ml PO DAILY PRN PRN Reason: Constipation Magnesium Oxide (Magnesium Oxide 400 Mg Tablet) 400 mg PO BID [facility] Last Admin: 07/05/24 08:35 Dose: 400 mg Documented By: MOLINA Melatonin (Melatonin 3 Mg Tablet) 6 mg PO BEDTIME PRN PRN Reason: Insomnia Omeprazole (Omeprazole 20 Mg Capsule.Dr) 20 mg PO BID@0630,1630 [facility] Last Admin: 07/05/24 05:47 Dose: 20 mg Documented By: SKYLAR Ondansetron HCl (Ondansetron Hcl 4 Mg/2 Ml Vial) 4 mg IVPUSH Q8H PRN PRN Reason: Nausea and Vomiting Pharmacy Consult (Consult Rx Etoh Phenob Im/Po) 1 each MISCELLANE ONCE PRN; Protocol PRN Reason: Consult order Phenobarbital (Phenobarbital 15 Mg Tablet) 45 mg PO BID [facility]; Protocol Stop: 07/06/24 09:01 Last Admin: 07/05/24 08:35 Dose: 45 mg Documented By: MOLINA Phenobarbital (Phenobarbital 15 Mg Tablet) 15 mg PO BID [facility]; Protocol Stop: 07/08/24 09:01 Phenobarbital (Phenobarbital 15 Mg Tablet) 15 mg PO DAILY [facility]; Protocol Stop: 07/10/24 09:01 Sodium Chloride (0.9 % Sodium Chloride Flush 3 Ml Syringe) 3 ml IVFLUSH QSHI Last Admin: 07/05/24 08:33 Dose: 3 ml Documented By: MOLINA Sucralfate (Sucralfate Oral Suspension 1 Gm/10 Ml Oral.Susp) 1 gm PO QIDACHS [facility] Last Admin: 07/05/24 11:43 Dose: 1 gm Documented By: MOLINA Thiamine HCl (Thiamine Hcl 100 Mg Tablet) 100 mg PO DAILY [facility] Last Admin: 07/05/24 08:35 Dose: 100 mg Documented By: MOLINA Trazodone HCl (Trazodone Hcl 100 Mg Tablet) 100 mg PO BEDTIME [facility] Last Admin: 07/04/24 22:28 Dose: 100 mg Documented By: SKYLAR Comments: pt requested for insomnia Vitamin D (Cholecalciferol (Vitamin D3) 25 Mcg Tablet) 50 mcg PO DAILY [facility] Last Admin: 07/05/24 08:35 Dose: 50 mcg Documented By: MOLINA Labs 07/05/24 06:59 07/05/24 06:59 Labs: Laboratory Results - last 24 hr 07/05/24 07/05/24 06:59 10:59 MCV 102.6 H MCH 36.0 H MCHC 35.1 H RDW 16.4 H Plt Count 93 L MPV 11.4 Absolute Nucleated RBC 0.030 H Nucleated RBC % (auto) 1.0 H Anion Gap 14 Estim Creat Clear Calc 101.9 Estimated GFR > 60 Random Glucose 98 Calcium 8.9 D Total Bilirubin 0.4 AST 28 ALT 14 Alkaline Phosphatase 123 H Total Protein 5.6 L Albumin 3.2 L Vitamin B12 1386 H Folate > 20.0 Assessment and Plan (1) Alcoholism: Status: Acute (2) Hypomagnesemia: Status: Acute (3) Acute hypokalemia: Status: Acute Plan 49-year-old female with a past medical history of hypertension, depression/anxiety, alcohol abuse and dependence who presents with a several day history of intractable nausea and vomiting with associated epigastric abdominal pain. She is also exhibiting signs of alcohol withdrawal and is found to have multiple electrolyte abnormalities. She was admitted for further treatment. Epigastric abdominal pain, likely secondary to alcoholic gastritis improving PPI and antiemetics requesting diet advancement Hypokalemia/hypomagnesemia resolved with replacement Alcohol abuse and dependence with acute alcohol withdrawal continue phenobarbital protocol follow CIWA Continue supplementation with thiamine, folic acid HTN continue baseline meds Mood continue baseline meds Thrombocytopenia chronic likely due to alcoholic liver disease Full Code DVT pptx -- mechanical Pt requires ongoing inpatient stay for ongoing signs of acitve alcohol withdrawal with alcoholic gastritis and intractable n/v resulting in severe electrolyte abnormalities + signs of alcohol withdrawal nt. Quality Stroke Does the patient have a stroke diagnosis?: No VTE Prior VTE?: No VTE Risk Level:: Medical - moderate - high VTE Device Contraindication: Treatment Not Indicated VTE Drug Contraindication: N/A - Med Ordered
[2024-07-05] MEDS: hydrOXYzine HCL 25 MG TABLET PO (16:37)
[2024-07-05] MEDS: oxyCODONE HCl Immed Release 5 MG TABLET PO (18:04)
[2024-07-05] MEDS: traZODone HCL 100 MG TABLET PO (21:09)
[2024-07-06 03:18] VITALS: BP 160/100; PULSE 63; RESP 19; TEMP 35.8; O2SAT 95
[2024-07-06 05:24] LABS: Hematocrit 30.8 % (37.0-47.0); Hemoglobin 10.4 g/dl (12.0-16.0); Mean Corpuscular HGB Conc 33.8 g/dl (31.0-35.0); Mean Corpuscular Hemoglobin 35.1 pg (27.0-33.0); Mean Corpuscular Volume 104.1 fL (80.0-98.0); Mean Platelet Volume 10.4 fL (9.4-12.3); NRBC Pct Auto 0.5 /100WBC (0.0-0.2); Red Blood Count 2.96 X10*6/uL (4.20-5.50); Red Cell Distribution Width 16.4 % (11.0-16.0); White Blood Count 3.7 X10*3/uL (4.8-10.8)
[2024-07-06 05:25] LABS: Platelet Count 99 X10*3/uL (160-400)
[2024-07-06] MEDS: cloNIDine HCL 0.1 MG TABLET PO (05:26)
[2024-07-06] MEDS: Sucralfate Oral Suspension 1 GM/10 ML ORAL.SUSP PO (05:26)
[2024-07-06 08:00] VITALS: BP 138/86; PULSE 59; RESP 18; TEMP 35.8; O2SAT 94
[2024-07-06] MEDS: Folic Acid 1 MG TABLET PO (08:30)
[2024-07-06] MEDS: Thiamine HCL 100 MG TABLET PO (08:30)
[2024-07-06] MEDS: Cholecalciferol (Vitamin D3) 25 MCG TABLET 50 MCG PO (08:30)
[2024-07-06] MEDS: buPROPion HCl XL 150 MG TAB.ER.24H PO (08:30)
[2024-07-06] MEDS: amLODIPine Besylate 5 MG TABLET PO (08:30)
[2024-07-06] MEDS: Magnesium Oxide 400 MG TABLET PO (08:30)
[2024-07-06] MEDS: 0.9 % Sodium Chloride Flush 3 ML SYRINGE IVFLUSH (08:31)
[2024-07-06] MEDS: Cyanocobalamin (Vitamin B-12) 1,000 MCG TABLET 1000 MCG PO (08:31)
[2024-07-06] MEDS: Escitalopram Oxalate 20 MG TABLET PO (08:31)
[2024-07-06] MEDS: PHENobarbitaL 15 MG TABLET 45 MG PO (08:31)
[2024-07-06] MEDS: oxyCODONE HCl Immed Release 5 MG TABLET PO (09:32)
--- NOTE | 2024-07-06 09:42 | P.DS_ITS ---
DS: Providers Provider Date of Service: 07/06/24 Date of admission: 07/04/24 08:41 Date of discharge: 07/06/24 Primary care physician: Ayala Patton MD Consults: 07/04/24 20:18 Addiction Medicine Routine Consulting Provider: Addiction Covering Reason for consultation: Alcohol Has provider been notified: Yes Attending physician on discharge: Javon Moy Discharging clinician: Casandra Birmingham DS: Diagnosis Discharge Diagnosis (1) Alcoholism: Status: Acute (2) Hypomagnesemia: Status: Acute (3) Acute hypokalemia: Status: Acute DS: Summary Hospital Course Hospital Course: From H&P on the day of admission The patient is a 49-year-old female with a past medical history of hypertension, depression/anxiety, alcohol abuse and dependence who presents to the emergency room with a several day history of intractable nausea and vomiting plus epigastric sharp abdominal pain. Patient denies any hematemesis or coffee-grounds. She reports no rectal bleeding. She reports that her last drink was on the day prior to admission. She reports drinking 5 shots of spirits this past week, which is decreased from her typical 10 drinks daily. She reports prior pancreatitis as well as prior alcohol withdrawal. She indicates desire for alcohol cessation. In the emergency room the patient was found to have multiple electrolyte abnormalities including hypomagnesemia and hypokalemia both of which have been repleted with IV. Her lipase is within normal limits and her CT imaging does not show concerns for pancreatitis. She has been treated with IV fluids, IV analgesics and antiemetics. She continues to endorse epigastric abdominal pain. Her CIWA is starting to rise and she has been initiated on phenobarbital for alcohol withdrawal. She will now be admitted for further care. Epigastric abdominal pain, likely secondary to alcoholic gastritis improved with PPI and antiemetics. Now tolerating regular diet Hypokalemia/hypomagnesemia Likely due to underlying alcoholism. resolved with replacement. repeat levels in one wek Alcohol abuse and dependence with acute alcohol withdrawal Treated with phenobarbital protocol. CIWA score low this a.m. Continue supplementation with thiamine, folic acid. Has been seen in [facility]. Discussed with the Addiction medicine provider they will contact her early next week for follow-up discussed importance of alcohol cessation. Thrombocytopenia chronic likely due to alcoholic liver disease. recommend outpatient follow up Time Attestation Discharge Coordination Time (in mins): 35 Quality: Safe Use of Opioids Does Pt have an Active Cancer Diagnosis on the Problem List?: No Quality: Stroke Does the patient have a stroke diagnosis?: No Physical Exam Vital Signs: Vital Signs: Last Vital Signs Temp 96.4 F L 07/06/24 08:00 Pulse 59 07/06/24 08:00 Resp 18 07/06/24 08:00 BP 138/86 07/06/24 08:00 Pulse Ox 94 07/06/24 08:00 O2 Del Method Room Air 07/06/24 08:00 O2 Flow Rate 2 07/04/24 08:00 BMI result Body Mass Index 20.9 Const: General: alert and awake Nutritional Appearance: average body habitus Orientation/consciousness: patient oriented x3 Resp: Effort & Inspection: normal respiratory effort, able to speak in complete sentences, no respiratory distress and no use of accessory muscles Cardio: Rate: regular rate GI: Inspection: No distended Palpation (GI): Soft to palpation Neuro: General: patient oriented x3, moves all extremities and CN's II-XI intact bilaterally Extrem: Other: strength 5/5 b/l LE, sensation intact, no edema DS: Data Data Completed and Pending Completed studies during hospitalization [Text1]: Procedures Detoxification Services for Substance Abuse Treatment (06/07/24) Labs on day of discharge: Laboratory Results - last 24 hr 07/05/24 07/06/24 10:59 05:07 WBC 3.7 L RBC 2.96 L Hgb 10.4 L Hct 30.8 L MCV 104.1 H MCH 35.1 H MCHC 33.8 RDW 16.4 H Plt Count 99 L MPV 10.4 Absolute Nucleated RBC 0.020 H Nucleated RBC % (auto) 0.5 H Vitamin B12 1386 H Folate > 20.0 Discharge Plan Discharge Anticipated Discharge Date/Time: 07/06/24 10:10 Patient Disposition: Home, Self-Care Discharge Diagnosis: Hypomagnesemia via/hypokalemia Alcohol use disorder Abdominal pain due to Probable alcoholic gastritis Referrals: Ayala Patton MD [Primary Care Provider] - 1 Week Discharge Medications: New tramadol 25 mg tablet 25 mg PO BID PRN (Reason: pain) Qty: 14 0RF potassium chloride 10 mEq capsule, extended release 10 meq PO DAILY Qty: 7 0RF Continued thiamine mononitrate (vit B1) 100 mg tablet 100 mg PO DAILY ondansetron 4 mg tablet,disintegrating 4 mg PO Q8H PRN (Reason: nausea and vomiting) Qty: 20 0RF benzonatate 200 mg capsule 200 mg PO TID PRN (Reason: cough) Qty: 20 0RF trazodone 100 mg tablet 50 mg PO BEDTIME PRN (Reason: Insomnia) pantoprazole 40 mg tablet,delayed release (DR/EC) 40 mg PO DAILY@0630 folic acid 1 mg tablet 1 mg PO DAILY hydroxyzine HCl 25 mg tablet 25 mg PO TID PRN (Reason: anxiety) cholecalciferol (vitamin D3) 50 mcg (2,000 unit) tablet 50 mcg PO DAILY clonidine HCl 0.1 mg tablet 0.1 mg PO TID PRN (Reason: Anxiety) citalopram 40 mg tablet 40 mg PO DAILY bupropion HCl 150 mg tablet extended release 24 hr 150 mg PO DAILY magnesium oxide 400 mg (241.3 mg magnesium) tablet 400 mg PO BID Qty: 60 0RF amlodipine 5 mg Tablet 5 mg PO DAILY Qty: 90 0RF Protocol: Hold for SBP< HOLD for SBP < : 90 sucralfate [Carafate] 100 mg/mL suspension 10 ml PO QIDACHS Held cyanocobalamin (vitamin B-12) 1,000 mcg tablet 1,000 mcg PO DAILY Hold Instructions: b12 levels 1386, hold until follow up with PCP Discontinued losartan 50 mg tablet 50 mg PO DAILY metoprolol succinate 25 mg tablet extended release 24 hr 100 mg PO DAILY vancomycin 125 mg capsule 125 mg PO Q6H Discharge Orders: Discharge Order (Routine); Ordered 07/06/24 Ordered By: Casandra Birmingham Activity on Discharge: As tolerated Stand Alone Forms: Patient Portal Discharge page Print Language: Bulgarian Other Ambulatory Orders: Basic Metabolic Panel (Routine) Timeframe: 1 Week Facility: [facility] - Location: Laboratory Ordered By: Casandra Birmingham Magnesium (Routine) Timeframe: 1 Week Facility: [facility] - Location: Laboratory Ordered By: Casandra Birmingham Care Plan Goals: see below Health Concerns: low potassium low magnesium abdominal pain due to alcoholic gastritis Alcohol use disorder with withdrawal Plan of Treatment: Take magnesium supplementation as prescribed Take potassium supplementation as prescribed Repeat labs in 1 week Call to schedule follow-up appointment with PCP Call to schedule follow-up appointment in [facility] Recommend to abstain from alcohol you should have completed course of vancomycin take norvasc for blood pressure - stop losartan and metoprolol and follow up with PCP take all medications as prescribed Assessment: see discharge summary
--- NOTE | 2024-07-06 10:27 | MHC.CM.PN ---
PT WILL DC HOME TODAY, WITH NO SERVICES, VIA PRIVATE TRANSPORT
--- NOTE | 2024-07-07 14:45 | MHC.RECOVRN ---
Briefly spoke with pt on the phone to follow up after discharge. Pt reports she is doing well, is currently drinking 4-5 mixed drinks daily and has been decreasing use. Pt reports she would like to come to the [facility] as a walk in sometime next week. Pt provided with [facility] information and will call if questions or concerns arise.
== END 2024-07-06 11:03 | disposition home or self-care (01) | DRG 241 ==
LOC: HO.ED 07-04 07:58 → HO.EDOVER 07-04 08:49 → HO.IMC 07-04 19:28
PROVIDERS: Student in an Organized Health Care Education/Training Program; Admitting Provider Family Medicine; Emergency Provider Emergency Medicine; PCP Internal Medicine; Visit Provider Physician Assistant Medical
DX: K29.20 Alcoholic gastritis without bleeding (principal); D69.59 Other secondary thrombocytopenia; E87.6 Hypokalemia; F39 Unspecified mood [affective] disorder; F41.9 Anxiety disorder, unspecified; F10.239 Alcohol dependence with withdrawal, unspecified; F17.210 Nicotine dependence, cigarettes, uncomplicated; I10 Essential (primary) hypertension; Z71.6 Tobacco abuse counseling; Z79.899 Other long term (current) drug therapy
CPT/HCPCS: 36415; 74177; 80053; 80307; 82607; 82746; 83690; 83735; 84132; 85025; 85027; 99285; J1790; J2270; J2470; J2560; J3475; J3480; J7120; Q9967

== ENCOUNTER → 2024-07-04 08:41 | Outpatient (BNV) | payer OTHER, SELFPAY | PROVIDERS: Admitting Provider Family Medicine; Emergency Provider Emergency Medicine; PCP Internal Medicine; Visit Provider Family Medicine | DX: E83.42 Hypomagnesemia (principal); E87.6 Hypokalemia; F10.20 Alcohol dependence, uncomplicated | CPT/HCPCS: 99223; 99232; 99239 ==

== ENCOUNTER 2024-07-09 11:30 | Outpatient (AMB) | payer OTHER, SELFPAY ==
--- NOTE | 2024-07-09 11:31 | HO.NEPHOV ---
Vital Signs 07/09/24 11:32 Height 5 ft 4 in Weight 121 lb BMI 20.8 BP 140/86 H Blood Pressure Location Lt brachial Position Sitting Pulse 76 Pulse Source Pulse Oximeter Pulse Oximetry (%) 96 Oxygen Delivery Method Room Air 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: Follow up/ Conf Special Procedure Tech Required: No Accompanied by: Self / Same As Patient Allergies No Known Allergies Allergy (Verified 07/09/24 11:34) Medication List - Last Reconciled 07/09/24 by Rudy Garcia MD amlodipine 5 mg See Protocol PO DAILY benzonatate 200 mg PO TID PRN bupropion HCl XL 150 mg PO DAILY cholecalciferol (vitamin D3) 50 mcg PO DAILY citalopram 40 mg PO DAILY clonidine HCl 0.1 mg PO BID PRN clonidine HCl 0.1 mg PO TID PRN cyanocobalamin (vitamin B-12) 1,000 mcg PO DAILY folic acid 1 mg PO DAILY magnesium oxide 400 mg PO BID ondansetron 4 mg PO Q8H PRN pantoprazole 40 mg PO DAILY@0630 potassium chloride ER 10 mEq PO DAILY sucralfate (Carafate) 10 mL PO QIDACHS tramadol 25 mg PO BID PRN trazodone 50 mg PO BEDTIME PRN HPI Comments Details: 48-year-old woman with history of alcohol use disorder with history of alcohol withdrawal seizures, chronic pancreatic insufficiency, among other morbidities presented to the emergency department for concerns of alcohol withdrawal and evaluation of nausea and vomiting. Nephrology was consulted for med will electrolyte abnormalities. At the time of discharge calcium, magnesium, phosphorus were replenished and they were close to normal range. She under went to rehab for 3 days. While in the hospital blood pressure is suboptimal. Amlodipine was added to this regimen. Prior to this she was on losartan and metoprolol. She is here for further follow-up regarding electrolyte abnormalities. Currently she is drinking 6 nips of vodka a day. She used to drink up to 12 nips in the past. 07/09/2024. Recently hospitalized for electrolyte abnormality and severe vomiting. She uses pot every day. [facility] Medical History Clostridium difficile colitis Hypertension Alcohol use disorder, severe, dependence Alcohol use disorder Pancreatic insufficiency Gastroesophageal reflux disease Essential hypertension Mood disorder Cannabis use disorder Hepatitis C Tobacco use disorder Surgical History (Updated 07/09/24 @ 11:34 by ANTELMO Carlson) H/O colonoscopy (~01/2023) Social History Household Members: Children Household Members Other:: Adult son Housing: House Do you presently have visiting nurse or other home services: No Alcohol intake: current Alcohol intake frequency: 3 or more drinks per day Alcohol type: hard liquor Comment: refused bed alarm Patient Tobacco Use Status: Current everyday Tobacco user Tobacco use type: Cigarette Cigarettes Per Day: 5 e-Cigarette/Vaping Use: Currently Using Second Hand Smoke Exposure: No Substance Use Type: Crack/Cocaine Advance Directives Date on File: 12/10/23 service: No Physical Exam Vital Signs: Last Vital Signs Pulse 76 07/09/24 11:32 BP 140/86 H 07/09/24 11:32 Pulse Ox 96 07/09/24 11:32 Oxygen Delivery Method Room Air 07/09/24 11:32 BMI result Body Mass Index 20.8 Last Vital Signs Temp 97.4 F 02/29/24 10:37 Pulse 92 02/29/24 10:37 Resp 18 02/29/24 10:37 BP 172/97 H 02/29/24 11:41 Pulse Ox 98 02/29/24 10:37 O2 Del Method Room Air 02/29/24 10:37 O2 Flow Rate 3 02/27/24 14:07 BMI result Body Mass Index 22.3 Appearance: Alert.? Oriented X3.? anxious ,weak.? cvs: rrr, [id number] , no murmur res: clear to auscultation ,no rhonchii or wheezing abd: no rebound or guarding ,nt, bs present. ext pulses present , no cyanosis . neuro: axo3 , nonfocal. Results Reviewed Nephrology Results: Hgb 10.4 g/dl (12.0-16.0) L 07/06/24 WBC 3.7 X10*3/uL (4.8-10.8) L 07/06/24 Plt Count 99 X10*3/uL (160-400) L 07/06/24 Sodium 144 mmol/L (135-145) 07/05/24 Potassium 3.4 mmol/L (3.3-5.1) 07/05/24 Chloride 105 mmol/L (96-108) 07/05/24 Carbon Dioxide 28 mmol/L (22-29) 07/05/24 BUN < 3 mg/dL (9-16) L 07/05/24 Creatinine 0.57 mg/dL (0.5-1.4) 07/05/24 Calcium 8.9 mg/dL (8.4-10.2) 07/05/24 Phosphorus 3.8 mg/dL (2.7-4.5) 05/09/24 Urine Protein Trace mg/dL (Neg-Trace) 06/12/24 Assessment & Plan Assessment & Plan (1) Hypophosphatemia: Code(s): E83.39 - Other disorders of phosphorus metabolism Category: Medical (2) Hypomagnesemia: Code(s): E83.42 - Hypomagnesemia Category: Medical (3) HTN (hypertension): Code(s): I10 - Essential (primary) hypertension Category: Medical Plan .. 48-year-old woman with hypertension and significant electrolyte imbalance in the setting of alcohol abuse. Hypertension Blood pressure well controlled. No change in medication Hypophosphatemia, hypo calcemia, hypokalemia. She is currently on supplementation. The supplementation can be adjusted based on the lab values. I have encouraged her to abstain from alcohol. Avoid marijuana Coding Level of Care Code Est Pt Level 4 (20188) Diagnoses Hypophosphatemia E83.39 Hypomagnesemia E83.42 HTN (hypertension) I10
[2024-07-09 11:32] VITALS: BP 140/86; PULSE 76; O2SAT 96; BMI 20.8
== END 2024-07-09 11:53 | disposition home or self-care (01) ==
PROVIDERS: PCP Internal Medicine; Visit Provider Internal Medicine Hypertension Specialist
DX: E83.39 Other disorders of phosphorus metabolism (principal); E83.42 Hypomagnesemia; I10 Essential (primary) hypertension
CPT/HCPCS: 99214

== ENCOUNTER → 2024-07-09 11:30 | Outpatient (BNVA) | payer OTHER, SELFPAY | PROVIDERS: PCP Internal Medicine; Visit Provider Internal Medicine Hypertension Specialist | DX: E83.39 Other disorders of phosphorus metabolism (principal); E83.42 Hypomagnesemia; I10 Essential (primary) hypertension | CPT/HCPCS: 99212 ==

== ENCOUNTER 2024-09-25 20:05 | Inpatient (IN) | payer OTHER, SELFPAY ==
--- NOTE | ~2024-09-25 | US_ITS ---
EXAMINATION: US ABDOMEN LIMITED CLINICAL INFORMATION: Right upper quadrant abdominal pain. Elevated LFTs. COMPARISON: CT abdomen/pelvis dated 09/25/2024. TECHNIQUE: Real-time imaging of the right upper quadrant abdominal viscera. FINDINGS: PANCREAS: Visualized portions are unremarkable. LIVER: Mildly enlarged measuring up to 18.2 cm. The liver contour is normal. Increased parenchymal echogenicity, consistent with steatosis. No focal hepatic lesion. There is no intrahepatic biliary duct dilatation seen. GALLBLADDER: Mildly contracted. No gallstones. No gallbladder wall thickening or pericholecystic free fluid to suggest acute cholecystitis. Positive sonographic Lockett's sign. COMMON BILE DUCT: Normal in caliber measuring 0.3 cm in diameter. RIGHT KIDNEY: No hydronephrosis. No renal calculi or focal parenchymal lesions. The kidney measures 11 cm in maximum dimension. FREE FLUID: None. US/US abdomen limited IMPRESSION: 1. Mild hepatomegaly. Hepatic steatosis. No hepatic parenchymal lesion or biliary ductal dilatation. 2. Contracted gallbladder without cholelithiasis, wall thickening, or pericholecystic free fluid to suggest acute cholecystitis. Positive sonographic Lockett's sign. Electronically signed by: Shay Abbasi MD 09/28/2024 01:59 PM [facility] [place]
--- NOTE | ~2024-09-25 | US_ITS ---
EXAMINATION: US TRIPLEX LOWER EXTREMITY, BILATERAL CLINICAL INFORMATION: Pain. Evaluate for deep vein thrombosis. COMPARISON: None available. TECHNIQUE: Color-flow triplex imaging with spectral analysis and compression Doppler were performed on the bilateral lower extremities. FINDINGS: Respiratory variation, normal compression and augmented flow are noted throughout the bilateral lower extremities. The visualized common femoral vein, superficial femoral vein, profunda femoral vein, popliteal vein and midcalf peroneal and posterior tibial venous segments show no evidence of deep venous thrombosis bilaterally. There is no Wu's cyst. Unremarkable left inguinal lymph node. US/US venous duplex LE BI IMPRESSION: No evidence of deep venous thrombosis involving the bilateral lower extremities. Electronically signed by: Shay Abbasi MD 09/27/2024 12:09 PM [facility]
--- NOTE | ~2024-09-25 | CT_ITS ---
EXAMINATION: CT ABDOMEN AND PELVIS WITH CONTRAST CLINICAL INFORMATION: Abdominal pain. Right upper quadrant tenderness. Abnormal LFTs. COMPARISON: CT abdomen pelvis dated July 04, 2024. TECHNIQUE: Multidetector volumetric images were obtained from the superior aspect of the liver through the pubic symphysis following administration 85 mL of Omnipaque 350 intravenous contrast. Sagittal and coronal reformatted images were obtained on the technologist's workstation. Oral contrast: No This CT examination was performed using dose optimization techniques as appropriate, variously including the following: *Automated exposure control *Adjustment of mA and/or kV according to patient size (this includes techniques or standardized protocols for targeted exams where dose is matched to indication/reason for exam; i.e. extremities or head) *Use of iterative reconstruction technique DLP: 509 mGy-cm FINDINGS: LUNG BASES: The visualized lung bases are unremarkable. LIVER, GALLBLADDER, AND BILIARY TREE: The liver is enlarged and steatotic. No biliary ductal dilatation is present. There is a stable 5 mm low-attenuation lesion within the medial aspect of the right lobe, too small for definitive characterization. The gallbladder is unremarkable with no evidence of radiopaque gallstones, gallbladder wall thickening, or obvious pericholecystic inflammatory changes. PANCREAS: Unremarkable. SPLEEN: Unremarkable. ADRENAL GLANDS: Unremarkable. KIDNEYS AND URETERS: The kidneys are normal in size, shape, and attenuation. No hydronephrosis, hydroureter, or calculi seen. No perinephric stranding. BLADDER: Unremarkable. GASTROINTESTINAL TRACT: The small and large bowel are normal in caliber. There is mild, scattered colonic diverticulosis. There is no evidence of acute diverticulitis. The appendix is unremarkable. ABDOMINAL WALL: No significant hernia is appreciated. LYMPH NODES: No lymphadenopathy. VASCULAR: No abdominal aortic aneurysm. There is moderate atherosclerotic disease. PELVIC VISCERA: There is an intrauterine device, unchanged in position when compared with the prior study. No adnexal mass. OSSEOUS STRUCTURES: There is mild multilevel degenerative disease of the spine. CT/CT abdomen pelvis w IV con IMPRESSION: No acute intra-abdominal/intrapelvic abnormality. The liver is enlarged and steatotic. Fleischner guidelines were followed. Electronically signed by: Kai Mahmood DO 09/25/2024 11:07 PM [facility]
--- NOTE | ~2024-09-25 | CT_ITS ---
EXAMINATION: CT HEAD WITHOUT CONTRAST CT FACIAL BONES WITHOUT CONTRAST CLINICAL INFORMATION: Trauma. Left ecchymoses/tenderness. COMPARISON: January 09, 2024 TECHNIQUE: Contiguous axial imaging was performed through the head and facial bones without intravenous administration of contrast. Sagittal and coronal reformatted images also obtained. This CT examination was performed using dose optimization techniques as appropriate, variously including the following: *Automated exposure control *Adjustment of mA and/or kV according to patient size (this includes techniques or standardized protocols for targeted exams where dose is matched to indication/reason for exam; i.e. extremities or head) *Use of iterative reconstruction technique DLP: 833 mGy-cm FINDINGS: The lateral, third and fourth ventricles are normally outlined. The cortical sulci and basal cisterns are normally outlined as well. There is no acute territorial defects, hemorrhage or midline shift. The extra-axial spaces are unremarkable. Calvarium/scalp: Intact. Facial bones/maxillofacial sinuses: No facial bone fracture is seen. The maxillofacial sinuses are clear. There is mild left periorbital soft tissue swelling. Intraorbital structures are within normal limits. The mastoids are clear. CT/CT facial bones wo IV con IMPRESSION: 1. No acute intracranial pathology. 2. No facial bone fracture. 3. Mild left periorbital soft tissue swelling. Electronically signed by: Daniel Albert MD 09/25/2024 11:25 PM [facility]
--- NOTE | ~2024-09-25 | NM_ITS ---
EXAMINATION: BILIARY TRACT IMAGING STUDY CLINICAL INDICATION: Question of acute cholecystitis. Right upper quadrant abdominal pain and elevated LFT. COMPARISON: Right upper quadrant abdominal ultrasound done on 09/28/2024 and scintigraphic biliary imaging/HIDA scan done on 11/02/2023. TECHNIQUE: Scintillation camera images were obtained over the abdomen for an observation of 60 minutes following the intravenous administration of 5.0 millicuries technetium 99m mebrofenin. The radiotracer was injected through a right antecubital superficial vein without complications. Subsequent delayed images were also obtained up to 2 hours post injection. FINDINGS: There is good concentration of activity in the liver by 5 minutes post injection. Biliary activity is well visualized by 5 minutes, and there is good visualization of small bowel activity by 10 minutes. The gallbladder is well visualized by 55 minutes. NM/NM hepatobiliary w pharm IMPRESSION: Normal biliary scan. Visualization of the gallbladder is evidence of a patent cystic duct and strong evidence against the diagnosis of acute cholecystitis. The common bile duct is patent. Liver function appears normal. Please note that CCK was not administered at the gallbladder appears contracted on the initial images, appear concordant with prior right upper quadrant abdominal ultrasound done on 09/28/2024. Electronically signed by: Shi Vilchis MD 09/30/2024 03:59 PM [facility]
--- NOTE | ~2024-09-25 | XR_ITS ---
EXAMINATION: XR CHEST CLINICAL INFORMATION: Lateral chest wall pain. COMPARISON: Most recent chest radiograph dated 06/07/2024. TECHNIQUE: Frontal view of the chest was obtained. FINDINGS: The lungs are clear. The cardiomediastinal silhouette is normal in size. There is no pleural effusion or pneumothorax. No acute osseous abnormality. XR/XR chest 1V IMPRESSION: No acute cardiopulmonary findings. Electronically signed by: Shay Abbasi MD 09/28/2024 09:43 AM [facility] [place]
--- NOTE | ~2024-09-25 | CT_ITS ---
EXAMINATION: CT HEAD WITHOUT CONTRAST CT FACIAL BONES WITHOUT CONTRAST CLINICAL INFORMATION: Trauma. Left ecchymoses/tenderness. COMPARISON: January 09, 2024 TECHNIQUE: Contiguous axial imaging was performed through the head and facial bones without intravenous administration of contrast. Sagittal and coronal reformatted images also obtained. This CT examination was performed using dose optimization techniques as appropriate, variously including the following: *Automated exposure control *Adjustment of mA and/or kV according to patient size (this includes techniques or standardized protocols for targeted exams where dose is matched to indication/reason for exam; i.e. extremities or head) *Use of iterative reconstruction technique DLP: 833 mGy-cm FINDINGS: The lateral, third and fourth ventricles are normally outlined. The cortical sulci and basal cisterns are normally outlined as well. There is no acute territorial defects, hemorrhage or midline shift. The extra-axial spaces are unremarkable. Calvarium/scalp: Intact. Facial bones/maxillofacial sinuses: No facial bone fracture is seen. The maxillofacial sinuses are clear. There is mild left periorbital soft tissue swelling. Intraorbital structures are within normal limits. The mastoids are clear. CT/CT head/brain wo IV con IMPRESSION: 1. No acute intracranial pathology. 2. No facial bone fracture. 3. Mild left periorbital soft tissue swelling. Electronically signed by: Daniel Albert MD 09/25/2024 11:25 PM [facility]
--- NOTE | 2024-09-25 20:07 | ECG_ITS ---
Test Reason : CHEST PAIN Blood Pressure : / mmHG Vent. Rate : 116 BPM Atrial Rate : 116 BPM P-R Int : 130 ms QRS Dur : 086 ms QT Int : 326 ms P-R-T Axes : 060 029 057 degrees QTc Int : 453 ms Sinus tachycardia Nonspecific ST abnormality Abnormal ECG When compared with ECG of 25-JUN-2024 01:29, No significant change was found Referred By: Generic ED Physician Electronically Signed By:MIKA JENNINGS
[2024-09-25 20:20] VITALS: BP 137/86; PULSE 126; RESP 18; TEMP 37.1; O2SAT 98; BMI 19.6
--- NOTE | 2024-09-25 20:26 | ED_ITS ---
HPI - General Adult General Chief complaint: ETOH/Substance Use Stated complaint: vomiting ,body aches,chest pain Time Seen by Provider: 09/25/24 21:48 History of Present Illness ED Provider: Gray GALDAMEZ narrative: The patient is a 49-year-old female with a history of alcoholism who says that she woke up this morning feeling unwell. She had nausea and abdominal pain. She was unable to drink her a custom the mount of alcohol. She also developed tremors that she feels are a result of alcohol withdrawal because she has had some little alcohol today. She has had vomiting. No definite fever. The patient has a history of pancreatitis and says that her abdominal discomfort feels similar to previous episodes of pancreatitis. She has had C-sections but no other surgeries. The patient has ecchymotic skin changes the skin under her left eye. She says that she hit her head about 3 days ago. She does not think that she had loss of consciousness at the time. She says that she has pain in the left eye when she moves her eyes. Related Data Home Medications ?Medication ?Instructions ?Recorded ?Confirmed cholecalciferol (vitamin D3) 50 50 mcg PO DAILY 11/01/23 07/09/24 mcg (2,000 unit) tablet folic acid 1 mg tablet 1 mg PO DAILY 11/01/23 07/09/24 pantoprazole 40 mg tablet,delayed 40 mg PO DAILY@0630 11/01/23 07/09/24 release trazodone 100 mg tablet 50 mg PO BEDTIME PRN Insomnia 11/01/23 07/09/24 clonidine HCl 0.1 mg tablet 0.1 mg PO TID PRN Anxiety 12/10/23 07/09/24 bupropion HCl 150 mg 24 hr tablet, 150 mg PO DAILY 02/26/24 07/09/24 extended release citalopram 40 mg tablet 40 mg PO DAILY 02/26/24 07/09/24 cyanocobalamin (vitamin B-12) 1,000 mcg PO DAILY 02/26/24 07/09/24 1,000 mcg tablet sucralfate 100 mg/mL oral 10 ml PO QIDACHS 07/04/24 07/09/24 suspension (Carafate) Previous Rx's ?Medication ?Instructions ?Recorded magnesium oxide 400 mg (241.3 mg 400 mg PO BID #60 tabs 02/29/24 magnesium) tablet ondansetron 4 mg disintegrating 4 mg PO Q8H PRN nausea and 05/09/24 tablet vomiting #20 tabs benzonatate 200 mg capsule 200 mg PO TID PRN cough #20 caps 05/24/24 amlodipine 5 mg tablet 5 mg PO DAILY #90 tabs 06/11/24 clonidine HCl 0.1 mg tablet 0.1 mg PO BID PRN anxiety #14 tabs 07/06/24 potassium chloride 10 mEq 10 meq PO DAILY #7 caps 07/06/24 capsule,extended release tramadol 25 mg tablet 25 mg PO BID PRN pain #14 tabs 07/06/24 Allergies Allergy/AdvReac Type Severity Reaction Status Date / Time No Known Allergies Allergy Verified 09/25/24 20:22 Review of Systems 2 Review of Systems: Yes all other systems are reviewed and are negative [facility] Past Medical History Medical History (Updated 09/26/24 @ 00:43 by Lucas Castellano MD) Clostridium difficile colitis Hypertension Alcohol use disorder, severe, dependence Alcohol use disorder Pancreatic insufficiency Gastroesophageal reflux disease Essential hypertension Mood disorder Cannabis use disorder Hepatitis C Tobacco use disorder Surgical History (Updated 07/09/24 @ 11:34 by ANTELMO Carlson) H/O colonoscopy (~01/2023) Social History Social History Household Members: Children Household Members Other:: Adult son Housing: House Do you presently have visiting nurse or other home services: No Alcohol intake: current Alcohol intake frequency: 3 or more drinks per day Alcohol type: hard liquor Comment: refused bed alarm Patient Tobacco Use Status: Current everyday Tobacco user Tobacco use type: Cigarette Cigarettes Per Day: 5 Smoked in Last 30 Days: Yes e-Cigarette/Vaping Use: Currently Using Second Hand Smoke Exposure: No Use of substances other than those prescribed or required for medical reasons: Yes Substance Use Type: Crack/Cocaine and Marijuana Substance Use Frequency: Chronic Longstanding Last Used Substance: Unknown Advance Directives: Yes Advance Directives on File: Yes Advance Directives Date on File: 12/10/23 Patient : No service: No Physical Exam ED Vital Signs: Vital Signs - 24 hr 09/25/24 20:20 09/26/24 00:21 Temperature 98.7 F 98.6 F Pulse Rate 126 H 105 H Respiratory Rate 18 15 Blood Pressure 137/86 166/86 H Pulse Oximetry 98 94 Oxygen Delivery Method Room Air Room Air BMI result Body Mass Index 19.6 Const Other: The patient is a chronically ill-appearing 49-year-old woman who was awake and alert. Mental status is clear. She looks chronically ill and mildly acutely unwell. HENMT Other: Face is symmetrical. There is ecchymosis to the left cheek below the left eye. She reports tenderness to the bones of the left cheek. Eyes Other: Pupils are round equal. She is able to put her eyes through a full range of motion including full upward gaze. She reports discomfort with moving her eyes but does not seem to have any limitation of range of motion of the eyes. Conjunctivae are clear. Neck Other: No posterior midline C-spine tenderness. No pain with moving the neck. C-spine is clinically clear. Resp Effort & Inspection: normal respiratory effort Auscultation: clear to auscultation bilaterally Cardio Rate: tachycardic Rhythm: regular rhythm Heart sounds: S1 normal heart sound present and S2 normal heart sound present GI Other: Patient has diffuse abdominal tenderness that seems most prominent in the right upper quadrant. Skin Other: The skin is pale and dry. She has a ecchymosis to the skin below left eye. Neuro Other: The patient is awake and alert. Mental status is clear. She seems appropriately oriented. She seems somewhat tremulous. Cranial nerves are intact. She has symmetrical strength in her extremities. Aside from her tremulousness she seems neurologically intact. Extrem Other: No trauma to the extremities. No peripheral edema. Course Course Course Narrative: This is a rapid medical exam performed by Lew Mcgee NP: Additional HPI, ROS, PE not included below will be deferred to primary provider. Patient is a 49-year-old female with history of alcohol use disorder, HTN, withdrawal seizures presenting with complaint of abdominal pain, nausea and vomiting since this morning. Feels like prior episodes of pancreatitis. Drinks vodka daily, last drink 3 hrs [employer]. Plan: labs Medications Administered Discontinued Medications Generic Name Dose Route Start Last Admin Trade Name Freq PRN Reason Stop Dose Admin Diphenhydramine HCl 25 mg 09/25/24 22:01 09/25/24 22:45 Diphenhydramine Hcl 50 Mg/Ml Vial IVPUSH 09/25/24 22:02 25 mg ONCE ONE Administration Magnesium Sulfate 2 gm in 50 mls @ 25 mls/hr 09/25/24 22:01 09/26/24 00:20 Magnesium Sulfate/H2o IV 09/26/24 00:00 Infused ONCE ONE Infusion Sodium Chloride 1,000 mls @ 999 mls/hr 09/25/24 22:15 09/26/24 00:20 Ns IV 09/25/24 23:15 Infused .Q1H1M SAMANTHA Infusion Iohexol 85 ml 09/25/24 22:32 09/25/24 22:32 Iohexol 350 Mg/Ml 100 Ml Infus..Btl IV 09/25/24 22:33 85 ml ONCE ONE Administration Lorazepam 2 mg 09/25/24 22:01 09/25/24 22:45 Lorazepam 2 Mg/Ml Vial IVPUSH 09/25/24 22:02 2 mg ONCE ONE Administration Ondansetron HCl 4 mg 09/25/24 21:34 09/25/24 21:38 Ondansetron Hcl 4 Mg/2 Ml Vial IVPUSH 09/25/24 21:35 4 mg ONCE ONE Administration Medical Decision Making Medical Decision Making [facility] Narrative: The patient is a 49-year-old woman with significant alcoholism. She reports a history of alcohol withdrawal seizures although not recently. She has been hospitalized for alcohol withdrawal. She reports a history of alcoholic pancreatitis in the past. The patient seemed to be quite tender in her upper abdomen. She has abnormal LFTs. A CT scan was done to evaluate for possible cholecystitis. The CT scan did not show any acute findings. Given her alcoholism I suspect that perhaps her abdominal pain may be alcoholic gastritis. The patient had facial bruising that she attributes to a fall a few days ago. This is mostly in the left cheek area under the left eye. She reports facial tenderness and she also reported pain with eye movements although there was no clinical entrapment. A CT of the brain and a CT of the facial bones is negative. I felt the patient has cervical spine was clinically clear. The patient has mild hypokalemia with a potassium at 3.0 and hypomagnesemia with a magnesium of 1.4. She was given magnesium replacement potassium replacement. The patient was initially given 2 mg of IV lorazepam with some improvement in her subjective symptoms and some improvement (but not resolution) of her tachycardia. However she did develop worsening hypertension. In case the patient's abdominal pain is related to gastritis she was given a dose of pantoprazole. I felt she was showing ongoing signs of alcohol withdrawal and so she was also started on intramuscular phenobarbital. The patient will be admitted for further care. Lab Data 09/25/24 21:14 09/25/24 21:14 Labs: Lab Results 09/25/24 09/25/24 Range/Units 20:45 21:14 WBC 9.4 (4.8-10.8) X10*3/uL RBC 3.65 L D (4.20-5.50) X10*6/uL Hgb 12.6 D (12.0-16.0) g/dl Hct 35.8 L (37.0-47.0) % MCV 98.1 H (80.0-98.0) fL MCH 34.5 H (27.0-33.0) pg MCHC 35.2 H (31.0-35.0) g/dl RDW 14.7 (11.0-16.0) % Plt Count 136 L D (160-400) X10*3/uL MPV 10.0 (9.4-12.3) fL Immature Gran % (Auto) 0.2 (0.0-0.4) % Neut % (Auto) 78.8 H (45-73) % Lymph % (Auto) 16.0 L (20-40) % Henderson % (Auto) 4.4 (2-11) % Eos % (Auto) 0.1 (0-4) % Baso % (Auto) 0.5 (0-2) % Lymph # (Auto) 1.5 (1.2-4.9) X10*3/uL Henderson # (Auto) 0.4 (0.1-1.2) X10*3/uL Eos # (Auto) 0.0 (0.0-0.4) X10*3/uL Baso # (Auto) 0.1 (0.0-0.2) X10*3/uL Abs Immat Gran (auto) 0.02 (0.00-0.03) X10*3/uL Absolute Neuts (auto) 7.4 (2.0-8.3) x10*3/uL Absolute Nucleated RBC 0.000 (0.0-0.012) X10*3/uL Nucleated RBC % (auto) 0.0 (0.0-0.2) /100WBC PT 13.3 H (10.9-12.4) SEC INR 1.1 (0.9-1.1) Sodium 139 (135-145) mmol/L Potassium 3.0 L (3.3-5.1) mmol/L Chloride 98 (96-108) mmol/L Carbon Dioxide 23 (22-29) mmol/L Anion Gap 21 H (12-20) BUN 8 L (9-16) mg/dL Creatinine 0.84 (0.5-1.4) mg/dL Estim Creat Clear Calc 65.4 Estimated GFR > 60 Random Glucose 128 H (60-115) mg/dL Calcium 9.2 (8.4-10.2) mg/dL Magnesium 1.4 L* (1.6-2.6) mg/dL Total Bilirubin 1.7 H (0.0-1.0) mg/dL Direct Bilirubin 0.7 H (0.0-0.5) mg/dL AST 226 H (5-31) U/L ALT 126 H (0-31) U/L Alkaline Phosphatase 256 H (39-117) U/L Ammonia 46 (13-55) umol/L Troponin I High Sens < 2.7 (<3.5-17.0) ng/L Total Protein 7.4 (6.5-8.0) g/dL Albumin 4.3 (3.5-5.0) g/dL Amylase Cancelled 16 L Lipase 29 (8-78) U/L Ethyl Alcohol < 10 mg/dL Influenza Type A (PCR) NEGATIVE (Negative) Influenza Type B (PCR) NEGATIVE (Negative) RSV RNA Qual (PCR) NEGATIVE (Negative) SARS-CoV-2 RNA (RT-PCR) NEGATIVE (Negative) Independent Interpretation I performed an independent interpretation of an: EKG Interpretation: EKG at 20:03 shows sinus tachycardia at 116 beats per minute. QTC is 453. Nonspecific ST abnormalities. No significant change from previous. Critical Care Time Critical Care Time Critical Care Time: Yes Total Critical Care Time: 35 Attestation: The patient was critically ill with a high probability of imminent or life- threatening deterioration. ?I spent greater than 30 minutes of discontinuous time evaluating the patient, delivering critical care at the bedside, discussing evaluating data with consultants. ?Critical care time does not include time spent performing separately billable procedures or teaching. ?Time spent performing critical care with 35 minutes. Discharge Plan Discharge Patient Disposition: Admitted As Inpatient Prescriptions: No Action ondansetron 4 mg tablet,disintegrating 4 mg PO Q8H PRN (Reason: nausea and vomiting) Qty: 20 0RF benzonatate 200 mg capsule 200 mg PO TID PRN (Reason: cough) Qty: 20 0RF trazodone 100 mg tablet 50 mg PO BEDTIME PRN (Reason: Insomnia) pantoprazole 40 mg tablet,delayed release (DR/EC) 40 mg PO DAILY@0630 folic acid 1 mg tablet 1 mg PO DAILY cholecalciferol (vitamin D3) 50 mcg (2,000 unit) tablet 50 mcg PO DAILY clonidine HCl 0.1 mg tablet 0.1 mg PO TID PRN (Reason: Anxiety) citalopram 40 mg tablet 40 mg PO DAILY cyanocobalamin (vitamin B-12) 1,000 mcg tablet 1,000 mcg PO DAILY bupropion HCl 150 mg tablet extended release 24 hr 150 mg PO DAILY magnesium oxide 400 mg (241.3 mg magnesium) tablet 400 mg PO BID Qty: 60 0RF amlodipine 5 mg Tablet 5 mg PO DAILY Qty: 90 0RF Protocol: Hold for SBP< HOLD for SBP < : 90 sucralfate [Carafate] 100 mg/mL suspension 10 ml PO QIDACHS tramadol 25 mg tablet 25 mg PO BID PRN (Reason: pain) Qty: 14 0RF potassium chloride 10 mEq capsule, extended release 10 meq PO DAILY Qty: 7 0RF clonidine HCl 0.1 mg tablet 0.1 mg PO BID PRN (Reason: anxiety ) Qty: 14 0RF Print Language: Kyrgyz
[2024-09-25 21:22] LABS: Basophils Absolute Auto 0.1 X10*3/uL (0.0-0.2); Basophils Percent Auto 0.5 % (0-2); Eosinophils Percent Auto 0.1 % (0-4); Hematocrit 35.8 % (37.0-47.0); Hemoglobin 12.6 g/dl (12.0-16.0); Imm Gran Abs Auto 0.02 X10*3/uL (0.00-0.03); Imm Gran Pct Auto 0.2 % (0.0-0.4); Lymphocytes Absolute Auto 1.5 X10*3/uL (1.2-4.9); Mean Corpuscular HGB Conc 35.2 g/dl (31.0-35.0); Mean Corpuscular Hemoglobin 34.5 pg (27.0-33.0); Mean Corpuscular Volume 98.1 fL (80.0-98.0); Monocytes Absolute Auto 0.4 X10*3/uL (0.1-1.2); Monocytes Percent Auto 4.4 % (2-11); Neutrophils Absolute Auto 7.4 x10*3/uL (2.0-8.3); Neutrophils Percent Auto 78.8 % (45-73); Platelet Count 136 X10*3/uL (160-400); Red Blood Count 3.65 X10*6/uL (4.20-5.50); Red Cell Distribution Width 14.7 % (11.0-16.0); White Blood Count 9.4 X10*3/uL (4.8-10.8)
[2024-09-25 21:28] LABS: INTERNATIONAL NORM RATIO 1.1 (0.9-1.1); Prothrombin Time 13.3 SEC (10.9-12.4)
[2024-09-25 21:29] LABS: MANUAL DIFF FLAG NO
[2024-09-25] MEDS: ondansetron HCL 4 MG/2 ML VIAL IVPUSH (21:38)
[2024-09-25 21:41] LABS: Alanine Aminotransferase 126 U/L (0-31); Albumin Level 4.3 g/dL (3.5-5.0); Alkaline Phosphatase 256 U/L (39-117); Amylase 16 U/L (28-100); Anion Gap 21 (12-20); Aspartate Amino Transferase 226 U/L (5-31); Bilirubin Total 1.7 mg/dL (0.0-1.0); Blood Urea Nitrogen 8 mg/dL (9-16); Calcium 9.2 mg/dL (8.4-10.2); Carbon Dioxide 23 mmol/L (22-29); Chloride 98 mmol/L (96-108); Creatinine Clr Calc Pharmacy 65.4; Estimated Glomerular Filt Rate > 60; Ethanol < 10 mg/dL; Glucose Random 128 mg/dL (60-115); Lipase 29 U/L (8-78); Magnesium 1.4 mg/dL (1.6-2.6); Sodium 139 mmol/L (135-145); Total Protein 7.4 g/dL (6.5-8.0)
[2024-09-25 21:46] LABS: Troponin-I High Sensitivity < 2.7 ng/L (<3.5-17.0)
[2024-09-25 21:49] LABS: Influenza A PCR NEGATIVE (Negative); Influenza B PCR NEGATIVE (Negative); Resp Syncy Virus RNA Qual PCR NEGATIVE (Negative); SARS COV2 PCR INHOUSE NEGATIVE (Negative)
[2024-09-25 22:01] LABS: Ammonia 46 umol/L (13-55)
[2024-09-25 22:09] LABS: Bilirubin Direct 0.7 mg/dL (0.0-0.5)
[2024-09-25] MEDS: iohexoL 350 MG/ML 100 ML INFUS..BTL 85 ML IV (22:32)
[2024-09-25] MEDS: 0.9 % Sodium Chloride 1,000 ML 999 ML IV (22:44)
[2024-09-25] MEDS: diphenhydrAMINE HCL 50 MG/ML VIAL 25 MG IVPUSH (22:45)
[2024-09-25] MEDS: Magnesium Sulfate/H2O 2 GM/50 ML PIGGYBACK IV (22:45)
[2024-09-25] MEDS: LORazepam 2 MG/ML VIAL IVPUSH (22:45)
[2024-09-26] VITALS (9 sets, daily range): BP systolic 115–166; BP diastolic 70–95; PULSE 81–108; RESP 13–18; TEMP 36.1–37; O2SAT 91–98; BMI 19.6
[2024-09-26] MEDS: Pantoprazole Sodium 40 MG/10 ML VIAL IVPUSH (00:25)
--- NOTE | 2024-09-26 00:46 | PM.IMHP ---
History of Present Illness Date of Service: 09/26/24 Chief Complaint: Abdominal pain, alcohol withdrawal A 49-year-old female with a medical history of hypertension, depression/anxiety, and alcohol abuse/dependence, who reports consuming approximately 10 drinks daily, presents with abdominal pain that started this morning. The pain has prevented her from consuming her usual amount of alcohol, resulting in symptoms of alcohol withdrawal, including tremors, tachycardia, and elevated blood pressure. She was treated with Ativan, leading to an improvement in her symptoms, and was subsequently started on a phenobarbital protocol. Laboratory results reveal a potassium level of 3.0 and magnesium level of 1.4 , for which she has received supplementation. A CT scan of the abdomen shows no acute findings. Of note, she sustained a fall several days prior, resulting in facial bruising. CT imaging of the head and face reveals no acute findings or fractures. Review of Systems Review of Systems: Gen: no fever Resp: no sob, no cough CV: no chest, no GONZALES, no leg edema GI: No n/v, + abd pain Neuro: No confusion. no seizure, tremors Yes all other systems are reviewed and are negative [facility] Medical History Clostridium difficile colitis Hypertension Alcohol use disorder, severe, dependence Alcohol use disorder Pancreatic insufficiency Gastroesophageal reflux disease Essential hypertension Mood disorder Cannabis use disorder Hepatitis C Tobacco use disorder Surgical History H/O colonoscopy (~01/2023) Social History Household Members: Children Household Members Other:: Adult son Housing: House Do you presently have visiting nurse or other home services: No Alcohol intake: current Alcohol intake frequency: 3 or more drinks per day Alcohol type: hard liquor Comment: Pt refusing alarms, steady gait Patient Tobacco Use Status: Current everyday Tobacco user Tobacco use type: Cigarette Cigarettes Per Day: 9 e-Cigarette/Vaping Use: Currently Using Second Hand Smoke Exposure: No Substance Use Type: Crack/Cocaine and Marijuana Advance Directives Date on File: 12/10/23 service: No Meds Allergies Allergy/AdvReac Type Severity Reaction Status Date / Time No Known Allergies Allergy Verified 09/25/24 20:22 Active Medications: Current Medications Potassium Chloride/Dextrose/Sod Cl (Kcl 40 Meq In 5% Dex/0.9% Sod) 40 meq in 1,000 mls @ 250 mls/hr IV .Q4H SAMANTHA Stop: 09/26/24 03:44 Pharmacy Consult (Consult Rx Etoh Phenob Im/Po) 1 each MISCELLANE ONCE PRN; Protocol PRN Reason: Consult order Home Medications ?Medication ?Instructions ?Recorded ?Confirmed ?Last Taken ?Type cholecalciferol (vitamin D3) 50 50 mcg PO DAILY 11/01/23 09/26/24 09/25/24 History mcg (2,000 unit) tablet folic acid 1 mg tablet 1 mg PO DAILY 11/01/23 09/26/24 09/25/24 History pantoprazole 40 mg tablet,delayed 40 mg PO DAILY@0630 11/01/23 09/26/24 09/25/24 History release trazodone 100 mg tablet 50 mg PO BEDTIME PRN Insomnia 11/01/23 09/26/24 07/02/24 History clonidine HCl 0.1 mg tablet 0.1 mg PO TID PRN Anxiety 12/10/23 09/26/24 06/23/24 History citalopram 40 mg tablet 40 mg PO DAILY 02/26/24 09/26/24 09/25/24 History cyanocobalamin (vitamin B-12) 1,000 mcg PO DAILY 02/26/24 09/26/24 09/25/24 History 1,000 mcg tablet losartan 50 mg tablet 50 mg PO DAILY 09/26/24 09/26/24 09/25/24 History thiamine HCl (vitamin B1) 100 mg 100 mg PO DAILY 09/26/24 09/26/24 09/25/24 History tablet Physical Exam Vital Signs and Narrative: Vital Signs: Last Vital Signs Temp 98.6 F 09/26/24 00:21 Pulse 105 H 09/26/24 00:21 Resp 15 09/26/24 00:21 BP 166/86 H 09/26/24 00:21 Pulse Ox 94 09/26/24 00:21 O2 Del Method Room Air 09/26/24 00:21 BMI result Body Mass Index 19.6 Const: Other: General: AO X 3, no acute distress Heent: normal eye movment, no sclerea icteris, she has periorbital echymosis most prominent on the left side Resp: CTA bilateral CVS: S1,S2,RRR GI: +BS, NT, no distention Skin: No rash Neuro: motor grossly intact, no Psychomotor agitation, has some tremors, no confusion, CN 2 to 12 intact Psych: appropriate affect Results Labs 09/25/24 21:14 09/28/24 07:22 Labs: Laboratory Results - last 24 hr 09/25/24 09/25/24 20:45 21:14 MCV 98.1 H MCH 34.5 H MCHC 35.2 H RDW 14.7 Plt Count 136 L D MPV 10.0 Immature Gran % (Auto) 0.2 Neut % (Auto) 78.8 H Lymph % (Auto) 16.0 L Barton % (Auto) 4.4 Eos % (Auto) 0.1 Baso % (Auto) 0.5 Lymph # (Auto) 1.5 Barton # (Auto) 0.4 Eos # (Auto) 0.0 Baso # (Auto) 0.1 Abs Immat Gran (auto) 0.02 Absolute Neuts (auto) 7.4 Absolute Nucleated RBC 0.000 Nucleated RBC % (auto) 0.0 PT 13.3 H INR 1.1 Anion Gap 21 H Estim Creat Clear Calc 65.4 Estimated GFR > 60 Random Glucose 128 H Calcium 9.2 Magnesium 1.4 L* Total Bilirubin 1.7 H Direct Bilirubin 0.7 H AST 226 H ALT 126 H Alkaline Phosphatase 256 H Ammonia 46 Troponin I High Sens < 2.7 Total Protein 7.4 Albumin 4.3 Amylase Cancelled 16 L Lipase 29 Ethyl Alcohol < 10 Influenza Type A (PCR) NEGATIVE Influenza Type B (PCR) NEGATIVE RSV RNA Qual (PCR) NEGATIVE SARS-CoV-2 RNA (RT-PCR) NEGATIVE Imaging Radiologist's Impressions: Impressions Head CT 09/25/24 22:07 IMPRESSION: 1. No acute intracranial pathology. 2. No facial bone fracture. 3. Mild left periorbital soft tissue swelling. Electronically signed by: Daniel Albert MD 09/25/2024 11:25 PM [facility] Abdomen/Pelvis CT 09/25/24 22:37 IMPRESSION: No acute intra-abdominal/intrapelvic abnormality. The liver is enlarged and steatotic. Fleischner guidelines were followed. Electronically signed by: Kai Mahmood DO 09/25/2024 11:07 PM EST RP Face CT 09/25/24 22:38 IMPRESSION: 1. No acute intracranial pathology. 2. No facial bone fracture. 3. Mild left periorbital soft tissue swelling. Electronically signed by: Daniel Albert MD 09/25/2024 11:25 PM EST RP Assessment and Plan (1) Hypomagnesemia: Status: Acute (2) Acute hypokalemia: Status: Acute (3) Alcohol withdrawal: Status: Acute Plan A 49-year-old female with a history of alcohol abuse and dependence presents with alcohol withdrawal and abdominal pain likely secondary to alcoholic gastritis. Labs reveal hypokalemia (K: 3.0) and hypomagnesemia (M.4) , for which supplementation has been initiated. Alcohol withdrawal, high risk for DTs phenobarbital protocol folic acid and thiamine supplement addiction med consult HypOkalemia IV replacement and repeat level HypOmagenesemia IV Mag sulfate replacement and repeat level Alcoholic gastritis as cause of abdominal pain -PPI HTN, resume home meds once verified Mood disorder resume meds once verified DVT prophylaxis--lovenox, monitor platlets full code admission for at least 2 midnights for management of acute alcohol withdrawal Quality Stroke Does the patient have a stroke diagnosis?: No VTE Prior VTE?: No VTE Risk Level:: Medical - moderate - high VTE Device Contraindication: Treatment Not Indicated VTE Drug Contraindication: N/A - Med Ordered
[2024-09-26] MEDS: KCl 40 mEq in 5% Dex/0.9% Sod 40 MEQ/1,000 ML IV.SOLN 250 MEQ IV (01:02)
[2024-09-26] MEDS: PHENobarbitaL sodium 130 MG/ML VIAL 207 MG IM (01:16)
[2024-09-26] MEDS: PHENobarbitaL sodium 130 MG/ML VIAL 155 MG IM ×2 (05:38→08:28)
[2024-09-26] MEDS: ondansetron HCL 4 MG/2 ML VIAL IVPUSH (06:19)
[2024-09-26 06:50] LABS: Appearance Urine Clear; Color Urine Yellow; Glucose Urine UA Negative (Negative); Leukocyte Esterase Urine Negative (Negative); Nitrite Urine Negative (Negative); PH 6.5 (5.0-9.0); Specific Gravity - Urine >= 1.030 (1.005-1.025); Urine Blood Negative (Negative); Urine Ketones Trace mg/dL (Negative); Urine Protein Trace mg/dL (Neg-Trace)
[2024-09-26 07:03] LABS: Amphetamine Screen Urine Not Detected (Not Detect); Barbiturates, Urine POSITIVE (Not Detect); Benzodiazepines Screen Urine Not Detected (Not Detect); Buprenorphine Scr Not Detected (Not Detect); Cannabinoid Screen Urine POSITIVE (Not Detect); Cocaine Screen Urine POSITIVE (Not Detect); Fentanyl, urine Not Detected (Not Detect); Methadone Screen, Urine Not Detected (Not Detect); Opiate Screen Urine Not Detected (Not Detect); Oxycodone Screen Urine Not Detected (Not Detect); Phencyclidine Screen Urine Not Detected (Not Detect)
[2024-09-26 07:08] LABS: Anion Gap 16 (12-20); Blood Urea Nitrogen 4 mg/dL (9-16); Calcium 8.4 mg/dL (8.4-10.2); Carbon Dioxide 23 mmol/L (22-29); Chloride 108 mmol/L (96-108); Creatinine Clr Calc Pharmacy 72.3; Estimated Glomerular Filt Rate > 60; Glucose Random 86 mg/dL (60-115); Potassium 3.6 mmol/L (3.3-5.1); Sodium 143 mmol/L (135-145)
[2024-09-26 08:16] LABS: Alanine Aminotransferase 102 U/L (0-31); Albumin Level 3.7 g/dL (3.5-5.0); Aspartate Amino Transferase 177 U/L (5-31); Bilirubin Direct 0.6 mg/dL (0.0-0.5); Bilirubin Total 1.4 mg/dL (0.0-1.0); Total Protein 6.3 g/dL (6.5-8.0)
[2024-09-26] MEDS: Enoxaparin Sodium 40 MG/0.4 ML SYRINGE SUBCUT (08:29)
[2024-09-26] MEDS: 0.9 % Sodium Chloride Flush 3 ML SYRINGE IVFLUSH ×3 (08:29→21:07)
[2024-09-26] MEDS: Folic Acid 1 MG in 0.9 % Sodium Chloride 50 ML 100.4 MG IV (08:29)
[2024-09-26] MEDS: Thiamine HCL 100 MG in 0.9 % Sodium Chloride 100 ML 202 MG IV (08:30)
[2024-09-26 08:40] LABS: Alkaline Phosphatase 213 U/L (39-117)
[2024-09-26] MEDS: Famotidine 20 MG TABLET PO ×2 (08:55→19:34)
--- NOTE | 2024-09-26 10:41 | PHA.MEDREC ---
Addendum entered by Hazel Meyer [facility] 09/26/24 11:31: OF NOTE: patient splits trazodone in half when needed. Addendum entered by Hazel Meyer RP 09/26/24 11:30: reviewed Original Note: Pharmacy Consult ? Medication Reconciliation Pharmacy has completed the medication reconciliation. Spoke with patient and she states she has been in and out of the hospitals around here for the last few months now but she was able to confirm her medications. She confirmed she stopped taking the Bupropion 150mg tab about 1 month ago and states she stopped that per a [facility]. She confirmed her Vitamin B-12 tablet was put on hold 07/07 until she had a follow up appt with her Dr, and she confirmed she saw the Dr within the week of being discharged then and he put her back on the Vitamin B-12 once daily. She confirmed was taking the Sucralfate 1GM/10mL and stated it made her feel better but has not taken it since 09/06 due to running out and the patient states no Dr's will refill it for her. She also states she never started nor picked up the Tramadol 25mg tabs when they were prescribed to her. She confirmed she took her medications yesterday morning.
--- NOTE | 2024-09-26 12:45 | PM.EVENT ---
Event Note Date of Service: 09/26/24 Event Note: Patient seen and examined by hospitalist team this morning seen and exmained again-denies new c/o,seems anxious Physical exam and assessment and plan coordinated in h&P note, Agree with the plan in addition: alcohol withdrawal: continue ciwa , phenobarbital elevated lft,as well as abd pain( likely due to alcohol use.) :improving hypoklameia/hypomagnesium: s/p replcements will continue to moniter Time Spent With Patient Time: Total time managing care of this patient today ____ minutes.
--- NOTE | 2024-09-26 12:52 | MHC.CM.PN ---
PT REPORTS SHE LIVES WITH HER SON AND IS INDEPENDENT WITH CARE PT HAS NO DME AND NO SERVICES HCP ON FILE PCP: BRENNEN SOUZA DCP: HOME NO SERVICES VIA PRIVATE TRANSPORT
--- NOTE | 2024-09-26 14:24 | MHC.RECOVRN ---
AUDIT-C Brief Intervention Pt had positive screen for unhealthy alcohol use on admission, subsequently met with t/w to discuss alcohol use and recovery supports/options. This proposal writer met with patient to discuss current alcohol use and concerns related to increased risk of alcohol related problems.? Pt reports 3-5 vodka drinks daily since discharge from [facility] on September 06. Discussed how alcohol use has impacted health, including negative impact on overall physical wellbeing. Withdrawal History: reports history of withdrawal seizures Treatment History: numerous hospitalizations related to alcohol use, has tried naltrexone and Vivitrol-does not like the injection due to pain at the injection site Supports:?jose david Discussed risk reduction strategies including drinking below the recommended limit. Provided pt with written resources including information on inpatient and outpatient treatment, WEI, harm reduction, and recovery coaching. Pt plans to review resources and follow [facility]. Pt provided with t/w contact information if questions or concerns arise. Denies other questions or concerns at this time.?
[2024-09-26] MEDS: cloNIDine HCL 0.1 MG TABLET PO ×2 (14:33→19:34)
[2024-09-26] MEDS: PHENobarbitaL 30 MG, PHENobarbitaL 15 MG 45 MG PO ×2 (14:35→19:34)
[2024-09-26] MEDS: oxyCODONE HCl Immed Release 5 MG TABLET PO ×2 (14:38→23:38)
[2024-09-26] MEDS: Sucralfate Oral Suspension 1 GM/10 ML ORAL.SUSP PO (21:06)
[2024-09-26] MEDS: traZODone HCL 50 MG TABLET PO (21:06)
[2024-09-26] MEDS: Magnesium Oxide 400 MG TABLET PO (21:06)
[2024-09-27 03:34] VITALS: BP 124/75; PULSE 80; RESP 17; TEMP 36.9; O2SAT 95
[2024-09-27] MEDS: Melatonin 3 MG TABLET 6 MG PO (04:08)
[2024-09-27 07:01] LABS: Magnesium 1.5 mg/dL (1.6-2.6)
[2024-09-27 08:00] VITALS: BP 113/68; PULSE 77; RESP 20; TEMP 37.6; O2SAT 95
[2024-09-27 08:54] LABS: Alanine Aminotransferase 80 U/L (0-31); Albumin Level 3.6 g/dL (3.5-5.0); Alkaline Phosphatase 214 U/L (39-117); Anion Gap 14 (12-20); Aspartate Amino Transferase 114 U/L (5-31); Bilirubin Total 1.1 mg/dL (0.0-1.0); Blood Urea Nitrogen 4 mg/dL (9-16); Calcium 8.5 mg/dL (8.4-10.2); Carbon Dioxide 28 mmol/L (22-29); Chloride 101 mmol/L (96-108); Creatinine Clr Calc Pharmacy 88.7; Estimated Glomerular Filt Rate > 60; Glucose Random 113 mg/dL (60-115); Sodium 140 mmol/L (135-145); Total Protein 6.1 g/dL (6.5-8.0)
[2024-09-27] MEDS: Thiamine HCL 100 MG in 0.9 % Sodium Chloride 100 ML 202 MG IV (09:36)
[2024-09-27] MEDS: Magnesium Sulfate/D5W 1 GM/100 ML PIGGYBACK IV (09:36)
[2024-09-27] MEDS: Folic Acid 1 MG in 0.9 % Sodium Chloride 50 ML 100.4 MG IV (09:36)
[2024-09-27] MEDS: Escitalopram Oxalate 20 MG TABLET PO (09:37)
[2024-09-27] MEDS: Enoxaparin Sodium 40 MG/0.4 ML SYRINGE SUBCUT (09:37)
[2024-09-27] MEDS: Cholecalciferol (Vitamin D3) 25 MCG TABLET 50 MCG PO (09:37)
[2024-09-27] MEDS: 0.9 % Sodium Chloride Flush 3 ML SYRINGE IVFLUSH ×3 (09:37→21:19)
[2024-09-27] MEDS: Cyanocobalamin (Vitamin B-12) 1,000 MCG TABLET 1000 MCG PO (09:37)
[2024-09-27] MEDS: Sucralfate Oral Suspension 1 GM/10 ML ORAL.SUSP PO ×2 (09:37→21:15)
[2024-09-27] MEDS: Famotidine 20 MG TABLET PO ×2 (09:37→21:15)
[2024-09-27] MEDS: PHENobarbitaL 30 MG, PHENobarbitaL 15 MG 45 MG PO ×2 (09:37→21:15)
[2024-09-27] MEDS: Magnesium Oxide 400 MG TABLET PO ×2 (09:37→21:15)
[2024-09-27] MEDS: amLODIPine Besylate 5 MG TABLET PO (09:37)
[2024-09-27] MEDS: cloNIDine HCL 0.1 MG TABLET PO ×3 (10:02→22:52)
[2024-09-27] MEDS: Gabapentin 100 MG CAPSULE PO ×2 (10:03→21:15)
[2024-09-27] MEDS: oxyCODONE HCl Immed Release 5 MG TABLET PO ×3 (10:03→22:52)
[2024-09-27] MEDS: Potassium Chloride ER 20 MEQ TAB.ER.PRT 40 MEQ PO (10:03)
[2024-09-27 11:33] VITALS: BP 112/59; PULSE 68; RESP 20; TEMP 36.7; O2SAT 93
--- NOTE | 2024-09-27 13:32 | HO.PM.IMPN ---
Subjective Subjective Date of Service: 09/27/24 Interval History: alcohol withdrawal hypokalemia /hypomagnesemia Review of Systems seems anxious has leg pain s Physical Exam Vital Signs: Vital Signs: Last Vital Signs Temp 98.1 F 09/27/24 11:33 Pulse 68 09/27/24 11:33 Resp 20 09/27/24 11:33 BP 112/59 L 09/27/24 11:33 Pulse Ox 93 09/27/24 11:33 O2 Del Method Room Air 09/27/24 11:33 BMI result Body Mass Index 19.6 Appearance: Alert.? Oriented X3. cvs: rrr, [id number]. res: clear to auscultation ,no rhonchii or wheezing abd: no rebound or guarding ,nt, bs present. ext pulses present , no cyanosis. ms: has leg/calf pains neuro: axo3 , nonfocal. Objective Data Active Medications Acetaminophen (Acetaminophen 325 Mg Tablet) 650 mg PO Q6H PRN PRN Reason: Pain, Mild (Pain Scale 1-3), fever or headache Amlodipine Besylate (Amlodipine Besylate 5 Mg Tablet) 5 mg PO DAILY [facility]; Protocol Last Admin: 09/27/24 09:37 Dose: 5 mg Documented By: RAJESH Calcium Carbonate (Calcium Carbonate 750 Mg Tab.Chew) 750 mg PO Q4H PRN PRN Reason: Heartburn Clonidine HCl (Clonidine Hcl 0.1 Mg Tablet) 0.1 mg PO TID PRN; Protocol PRN Reason: Anxiety Last Admin: 09/27/24 10:02 Dose: 0.1 mg Documented By: YAIR Cyanocobalamin (Cyanocobalamin (Vitamin B-12) 1,000 Mcg Tablet) 1,000 mcg PO DAILY [facility] Last Admin: 09/27/24 09:37 Dose: 1,000 mcg Documented By: RAJESH Enoxaparin Sodium (Enoxaparin Sodium 40 Mg/0.4 Ml Syringe) 40 mg SUBCUT DAILY [facility] Last Admin: 09/27/24 09:37 Dose: 40 mg Documented By: RAJESH Escitalopram Oxalate (Escitalopram Oxalate 20 Mg Tablet) 20 mg PO DAILY [facility] Last Admin: 09/27/24 09:37 Dose: 20 mg Documented By: RAJESH Famotidine (Famotidine 20 Mg Tablet) 20 mg PO BID [facility] Last Admin: 09/27/24 09:37 Dose: 20 mg Documented By: RAJESH Gabapentin (Gabapentin 100 Mg Capsule) 100 mg PO BID [facility] Last Admin: 09/27/24 10:03 Dose: 100 mg Documented By: YAIR Folic Acid 1 mg/ Sodium (Chloride) 50.2 mls @ 100.4 mls/hr IV DAILY [facility] Last Infusion: 09/27/24 10:07 Dose: Infused Documented By: YAIR Thiamine HCl 100 mg/ Sodium (Chloride) 101 mls @ 202 mls/hr IV DAILY [facility] Last Infusion: 09/27/24 11:09 Dose: Infused Documented By: RAJESH Magnesium Hydroxide (Milk Of Magnesia 30 Ml Oral.Susp) 30 ml PO DAILY PRN PRN Reason: Constipation Magnesium Oxide (Magnesium Oxide 400 Mg Tablet) 400 mg PO BID [facility] Last Admin: 09/27/24 09:37 Dose: 400 mg Documented By: RAJESH Melatonin (Melatonin 3 Mg Tablet) 6 mg PO BEDTIME PRN PRN Reason: Insomnia Last Admin: 09/27/24 04:08 Dose: 6 mg Documented By: NELSY Ondansetron HCl (Ondansetron Hcl 4 Mg/2 Ml Vial) 4 mg IVPUSH Q8H PRN PRN Reason: Nausea and Vomiting Last Admin: 09/26/24 06:19 Dose: 4 mg Documented By: RAMON Oxycodone HCl (Oxycodone Hcl Immed Release 5 Mg Tablet) 5 mg PO Q6H PRN PRN Reason: Pain, Severe (Pain Scale 7-10) Last Admin: 09/27/24 10:03 Dose: 5 mg Documented By: YAIR Pharmacy Consult (Consult Rx Etoh Phenob Im/Po) 1 each MISCELLANE ONCE PRN; Protocol PRN Reason: Consult order Phenobarbital 30 mg/ (Phenobarbital 15 mg) 45 mg PO BID [facility] Stop: 09/27/24 21:01 Last Admin: 09/27/24 09:37 Dose: 45 mg Documented By: RAJESH Phenobarbital (Phenobarbital 15 Mg Tablet) 15 mg PO BID [facility] Stop: 09/29/24 21:01 Phenobarbital (Phenobarbital 15 Mg Tablet) 15 mg PO DAILY [facility] Polyethylene Glycol (Polyethylene Glycol 3350 17 Gm Powd.Pack) 17 gm PO DAILY PRN PRN Reason: Constipation Sodium Chloride (0.9 % Sodium Chloride Flush 3 Ml Syringe) 3 ml IVFLUSH QSHIFT [facility] Last Admin: 09/27/24 10:03 Dose: 3 ml Documented By: YAIR Sucralfate (Sucralfate Oral Suspension 1 Gm/10 Ml Oral.Susp) 1 gm PO BID [facility] Last Admin: 09/27/24 09:37 Dose: 1 gm Documented By: RAJESH Trazodone HCl (Trazodone Hcl 50 Mg Tablet) 50 mg PO BEDTIME PRN PRN Reason: Insomnia Last Admin: 09/26/24 21:06 Dose: 50 mg Documented By: NELSY Vitamin D (Cholecalciferol (Vitamin D3) 25 Mcg Tablet) 50 mcg PO DAILY [facility] Last Admin: 09/27/24 09:37 Dose: 50 mcg Documented By: RAJESH Labs 09/25/24 21:14 09/27/24 08:13 Labs: Laboratory Results - last 24 hr 09/27/24 09/27/24 06:15 08:13 Anion Gap 14 Estim Creat Clear Calc 88.7 Estimated GFR > 60 Random Glucose 113 Calcium 8.5 Magnesium 1.5 L Total Bilirubin 1.1 H AST 114 H ALT 80 H Alkaline Phosphatase 214 H Total Protein 6.1 L Albumin 3.6 Assessment and Plan (1) Alcoholism: Status: Acute (2) Hypomagnesemia: Status: Acute (3) Acute hypokalemia: Status: Acute Plan 49-year-old female with a past medical history of hypertension, depression/anxiety, alcohol abuse and dependence who presents with a several day history of intractable nausea and vomiting with associated epigastric abdominal pain. She is also exhibiting signs of alcohol withdrawal and is found to have multiple electrolyte abnormalities. She was admitted for further treatment. Epigastric abdominal pain, likely secondary to alcoholic gastritis improving PPI and antiemetics requesting diet advancement Hypokalemia/hypomagnesemia added replacements Alcohol abuse and dependence with acute alcohol withdrawal continue phenobarbital protocol follow CIWA Continue supplementation with thiamine, folic acid HTN continue baseline meds Mood:continue baseline meds Thrombocytopenia:chronic likely due to alcoholic liver disease. leg pains : dvt studies -negative encouarged to ambualte. Full Code. DVT pptx -- mechanical Pt requires ongoing inpatient stay for ongoing signs of acitve alcohol withdrawal with alcoholic gastritis and intractable n/v resulting in severe electrolyte abnormalities + signs of alcohol withdrawal nt. Quality Stroke Does the patient have a stroke diagnosis?: No VTE Prior VTE?: No VTE Risk Level:: Medical - moderate - high VTE Device Contraindication: N/A - Device Ordered VTE Drug Contraindication: N/A - Med Ordered
[2024-09-27 15:17] VITALS: BP 127/55; PULSE 72; RESP 20; TEMP 36.4; O2SAT 95
[2024-09-27 19:34] VITALS: BP 118/57; PULSE 73; RESP 16; TEMP 36.3; O2SAT 97
[2024-09-27] MEDS: traZODone HCL 50 MG TABLET PO (21:15)
[2024-09-27 22:53] VITALS: BP 128/66; PULSE 77; RESP 20; TEMP 36.5; O2SAT 96
[2024-09-28 03:05] VITALS: BP 116/58; PULSE 69; RESP 18; TEMP 36.3; O2SAT 97
[2024-09-28] MEDS: oxyCODONE HCl Immed Release 5 MG TABLET PO ×3 (06:13→20:47)
[2024-09-28 08:00] VITALS: BP 129/68; PULSE 64; RESP 18; TEMP 36.3; O2SAT 96
[2024-09-28 08:18] LABS: Anion Gap 13 (12-20)
[2024-09-28 08:21] LABS: Blood Urea Nitrogen 5 mg/dL (9-16); Carbon Dioxide 27 mmol/L (22-29); Chloride 101 mmol/L (96-108); Creatinine Clr Calc Pharmacy 101.9; Estimated Glomerular Filt Rate > 60; Glucose Random 103 mg/dL (60-115); Potassium 3.3 mmol/L (3.3-5.1); Sodium 138 mmol/L (135-145)
[2024-09-28 08:27] LABS: Magnesium 1.4 mg/dL (1.6-2.6)
[2024-09-28 08:49] LABS: Alanine Aminotransferase 67 U/L (0-31); Albumin Level 3.5 g/dL (3.5-5.0); Alkaline Phosphatase 232 U/L (39-117); Aspartate Amino Transferase 85 U/L (5-31); Bilirubin Direct 0.2 mg/dL (0.0-0.5); Bilirubin Total 0.4 mg/dL (0.0-1.0); Lipase 45 U/L (8-78); Total Protein 6.1 g/dL (6.5-8.0)
[2024-09-28] MEDS: Magnesium Sulfate/H2O 2 GM/50 ML PIGGYBACK IV (09:18)
[2024-09-28] MEDS: Sucralfate Oral Suspension 1 GM/10 ML ORAL.SUSP PO ×4 (09:40→20:47)
[2024-09-28] MEDS: Enoxaparin Sodium 40 MG/0.4 ML SYRINGE SUBCUT (09:40)
[2024-09-28] MEDS: Folic Acid 1 MG TABLET PO (09:41)
[2024-09-28] MEDS: Escitalopram Oxalate 20 MG TABLET PO (09:41)
[2024-09-28] MEDS: Cholecalciferol (Vitamin D3) 25 MCG TABLET 50 MCG PO (09:41)
[2024-09-28] MEDS: cloNIDine HCL 0.1 MG TABLET PO ×2 (09:41→17:20)
[2024-09-28] MEDS: Magnesium Oxide 400 MG TABLET PO ×2 (09:41→20:47)
[2024-09-28] MEDS: Gabapentin 100 MG CAPSULE PO ×2 (09:41→20:47)
[2024-09-28] MEDS: amLODIPine Besylate 5 MG TABLET PO (09:41)
[2024-09-28] MEDS: Potassium Chloride ER 20 MEQ TAB.ER.PRT PO (09:41)
[2024-09-28] MEDS: Cyanocobalamin (Vitamin B-12) 1,000 MCG TABLET 1000 MCG PO (09:41)
[2024-09-28] MEDS: PHENobarbitaL 15 MG TABLET PO ×2 (09:41→20:47)
[2024-09-28] MEDS: Famotidine 20 MG TABLET PO ×2 (09:41→20:47)
[2024-09-28] MEDS: 0.9 % Sodium Chloride Flush 3 ML SYRINGE IVFLUSH ×2 (09:42→15:11)
[2024-09-28] MEDS: Thiamine HCL 100 MG TABLET PO (09:42)
[2024-09-28 12:00] VITALS: BP 123/66; PULSE 60; RESP 20; TEMP 36.7; O2SAT 98
--- NOTE | 2024-09-28 12:00 | HO.PM.IMPN ---
Subjective Subjective Date of Service: 09/28/24 Interval History: diarrhae ,hypomagnesmia Review of Systems patient has some abd pain Physical Exam Vital Signs: Vital Signs: Last Vital Signs Temp 97.4 F 09/28/24 08:00 Pulse 64 09/28/24 08:00 Resp 18 09/28/24 08:00 BP 129/68 09/28/24 08:00 Pulse Ox 96 09/28/24 08:00 O2 Del Method Room Air 09/28/24 08:00 BMI result Body Mass Index 19.6 Appearance: Alert.? Oriented X3. cvs: rrr, [id number]. res: clear to auscultation ,no rhonchii or wheezing abd: no rebound or guarding ,lateral right upper quadrent pain, bs present. ext pulses present , no cyanosis. ms:pain improving neuro: axo3 , nonfocal. Objective Data Active Medications Acetaminophen (Acetaminophen 325 Mg Tablet) 650 mg PO Q6H PRN PRN Reason: Pain, Mild (Pain Scale 1-3), fever or headache Amlodipine Besylate (Amlodipine Besylate 5 Mg Tablet) 5 mg PO DAILY [facility]; Protocol Last Admin: 09/28/24 09:41 Dose: 5 mg Documented By: RAJESH Calcium Carbonate (Calcium Carbonate 750 Mg Tab.Chew) 750 mg PO Q4H PRN PRN Reason: Heartburn Clonidine HCl (Clonidine Hcl 0.1 Mg Tablet) 0.1 mg PO TID PRN; Protocol PRN Reason: Anxiety Last Admin: 09/28/24 09:41 Dose: 0.1 mg Documented By: RAJESH Cyanocobalamin (Cyanocobalamin (Vitamin B-12) 1,000 Mcg Tablet) 1,000 mcg PO DAILY [facility] Last Admin: 09/28/24 09:41 Dose: 1,000 mcg Documented By: RAJESH Enoxaparin Sodium (Enoxaparin Sodium 40 Mg/0.4 Ml Syringe) 40 mg SUBCUT DAILY [facility] Last Admin: 09/28/24 09:40 Dose: 40 mg Documented By: RAJESH Escitalopram Oxalate (Escitalopram Oxalate 20 Mg Tablet) 20 mg PO DAILY [facility] Last Admin: 09/28/24 09:41 Dose: 20 mg Documented By: RAJESH Famotidine (Famotidine 20 Mg Tablet) 20 mg PO BID [facility] Last Admin: 09/28/24 09:41 Dose: 20 mg Documented By: RAJESH Folic Acid (Folic Acid 1 Mg Tablet) 1 mg PO DAILY [facility] Last Admin: 09/28/24 09:41 Dose: 1 mg Documented By: RAJESH Gabapentin (Gabapentin 100 Mg Capsule) 100 mg PO BID [facility] Last Admin: 09/28/24 09:41 Dose: 100 mg Documented By: RAJESH Magnesium Hydroxide (Milk Of Magnesia 30 Ml Oral.Susp) 30 ml PO DAILY PRN PRN Reason: Constipation Magnesium Oxide (Magnesium Oxide 400 Mg Tablet) 400 mg PO BID [facility] Last Admin: 09/28/24 09:41 Dose: 400 mg Documented By: RAJESH Melatonin (Melatonin 3 Mg Tablet) 6 mg PO BEDTIME PRN PRN Reason: Insomnia Last Admin: 09/27/24 04:08 Dose: 6 mg Documented By: NELSY Ondansetron HCl (Ondansetron Hcl 4 Mg/2 Ml Vial) 4 mg IVPUSH Q8H PRN PRN Reason: Nausea and Vomiting Last Admin: 09/26/24 06:19 Dose: 4 mg Documented By: RAMON Oxycodone HCl (Oxycodone Hcl Immed Release 5 Mg Tablet) 5 mg PO Q6H PRN PRN Reason: Pain, Severe (Pain Scale 7-10) Last Admin: 09/28/24 06:13 Dose: 5 mg Documented By: SKYLAR Pharmacy Consult (Consult Rx Etoh Phenob Im/Po) 1 each MISCELLANE ONCE PRN; Protocol PRN Reason: Consult order Phenobarbital (Phenobarbital 15 Mg Tablet) 15 mg PO BID [facility] Stop: 09/29/24 21:01 Last Admin: 09/28/24 09:41 Dose: 15 mg Documented By: RAJESH Phenobarbital (Phenobarbital 15 Mg Tablet) 15 mg PO DAILY [facility] Polyethylene Glycol (Polyethylene Glycol 3350 17 Gm Powd.Pack) 17 gm PO DAILY PRN PRN Reason: Constipation Sodium Chloride (0.9 % Sodium Chloride Flush 3 Ml Syringe) 3 ml IVFLUSH QSHIFT [facility] Last Admin: 09/28/24 09:42 Dose: 3 ml Documented By: RAJESH Sucralfate (Sucralfate Oral Suspension 1 Gm/10 Ml Oral.Susp) 1 gm PO QID [facility] Thiamine HCl (Thiamine Hcl 100 Mg Tablet) 100 mg PO DAILY [facility] Last Admin: 09/28/24 09:42 Dose: 100 mg Documented By: RAJESH Trazodone HCl (Trazodone Hcl 50 Mg Tablet) 50 mg PO BEDTIME PRN PRN Reason: Insomnia Last Admin: 09/27/24 21:15 Dose: 50 mg Documented By: SKYLAR Comments: requested for sleep Vitamin D (Cholecalciferol (Vitamin D3) 25 Mcg Tablet) 50 mcg PO DAILY [facility] Last Admin: 09/28/24 09:41 Dose: 50 mcg Documented By: RAJESH Labs 09/25/24 21:14 09/28/24 07:22 Labs: Laboratory Results - last 24 hr 09/27/24 09/28/24 08:13 07:22 Anion Gap 13 Estim Creat Clear Calc 101.9 Estimated GFR > 60 Random Glucose 103 Calcium 9.0 Magnesium 1.4 L* Total Bilirubin 0.4 Direct Bilirubin 0.2 AST 85 H ALT 67 H Alkaline Phosphatase 232 H Total Creatine Kinase 171 H Total Protein 6.1 L Albumin 3.5 Lipase 45 Assessment and Plan (1) Hypomagnesemia: Status: Acute (2) Abdominal pain: Status: Acute (3) Diarrhea: Status: Acute Plan 49-year-old female with a history of alcohol abuse and dependence presents with alcohol withdrawal and abdominal pain likely secondary to alcoholic gastritis. Labs reveal hypokalemia (K: 3.0) and hypomagnesemia (M.4) , for which supplementation has been initiated. Alcohol withdrawal, high risk for DTs phenobarbital protocol folic acid and thiamine supplement addiction med consult HypOkalemia/HypOmagenesemia IV Mag sulfate replacement and repeat level also added po potassium abd pain ? ruq lateral cxr negative eleavted lft/alk phos,normal lipase abd us added surgery eval. diarrhae :? component of will check cdiff /gippanel was in [facility] recently for above ,? left ama Alcoholic gastritis as cause of abdominal pain -PPI HTN, resume home meds once verified Mood disorder resume meds once verified DVT prophylaxis--lovenox, monitor platlets full code ongoing need for hospitlisation for management of acute alcohol withdrawal, abd pain -need further workup, lft's monitering ,aggressive electrolytic replacements and monitering of renal function as well as electrolytes , surgery eval. Quality Stroke Does the patient have a stroke diagnosis?: No VTE Prior VTE?: No VTE Risk Level:: Medical - moderate - high VTE Device Contraindication: N/A - Device Ordered VTE Drug Contraindication: N/A - Med Ordered
[2024-09-28 14:17] LABS: CDiff Gene PCR POSITIVE (Negative); CDiff Toxin Negative (Negative)
[2024-09-28 14:38] LABS: CDIFF Internal ctrl Dots and bkg OK (V)
[2024-09-28 15:00] LABS: Adenovirus F 40/41 Not Detected (Not Detect.); Astrovirus Not Detected (Not Detect.); Campylobacter Not Detected (Not Detect.); Cryptosporidium Not Detected (Not Detect.); Cyclospora cayetanensis Not Detected (Not Detect.); E. coli EAEC Not Detected (Not Detect.); E. coli EPEC Not Detected (Not Detect.); E. coli ETEC Not Detected (Not Detect.); E. coli STEC Not Detected (Not Detect.); Entamoeba histolytica Not Detected (Not Detect.); Giardia lamblia Not Detected (Not Detect.); Norovirus GI/GII Not Detected (Not Detect.); Plesiomonas shigelloides Not Detected (Not Detect.); Rotavirus A Not Detected (Not Detect.); Salmonella Not Detected (Not Detect.); Sapovirus Not Detected (Not Detect.); Shigella sp./EIEC Not Detected (Not Detect.); Vibrio Not Detected (Not Detect.); Vibrio Cholerae Not Detected (Not Detect.); Yersinia enterocolitica Not Detected (Not Detect.)
[2024-09-28 15:28] VITALS: BP 137/69; PULSE 56; RESP 18; TEMP 36.4; O2SAT 96
--- NOTE | 2024-09-28 17:18 | P.CONGS_ITS ---
History of Present Illness Consult details Consult date: 09/28/24 Narrative: the pt is a 49 year old female with known etoh issues and substance abuse and hx of Hep C and who comes in with ruq pain. She has had this in the past and ? GB issues - HIDA done last time and showed no acute guillermina but 0% EF of GB. Pt improved without any need for surgical intervention. Comes in now with similar complaints. also with nausea dn vomiting. Improved now. no fevers or chills, no sick contacts. Review of Systems 2 Review of Systems: Yes all other systems are reviewed and are negative [facility] Past Medical History Medical History Clostridium difficile colitis Hypertension Alcohol use disorder, severe, dependence Alcohol use disorder Pancreatic insufficiency Gastroesophageal reflux disease Essential hypertension Mood disorder Cannabis use disorder Hepatitis C Tobacco use disorder Surgical History Surgical History H/O colonoscopy (~01/2023) Social History Social History Household Members: Children Household Members Other:: Adult son Housing: House Do you presently have visiting nurse or other home services: No Alcohol intake: current Alcohol intake frequency: 3 or more drinks per day Alcohol type: hard liquor Comment: Pt refusing alarms, steady gait Patient Tobacco Use Status: Current everyday Tobacco user Tobacco use type: Cigarette Cigarettes Per Day: 9 e-Cigarette/Vaping Use: Currently Using Second Hand Smoke Exposure: No Substance Use Type: Crack/Cocaine and Marijuana Advance Directives Date on File: 12/10/23 service: No Meds Allergies Allergy/AdvReac Type Severity Reaction Status Date / Time No Known Allergies Allergy Verified 09/25/24 20:22 Active Medications: Current Medications Acetaminophen (Acetaminophen 325 Mg Tablet) 650 mg PO Q6H PRN PRN Reason: Pain, Mild (Pain Scale 1-3), fever or headache Amlodipine Besylate (Amlodipine Besylate 5 Mg Tablet) 5 mg PO DAILY SAMANTHA; Protocol Last Admin: 09/28/24 09:41 Dose: 5 mg Calcium Carbonate (Calcium Carbonate 750 Mg Tab.Chew) 750 mg PO Q4H PRN PRN Reason: Heartburn Clonidine HCl (Clonidine Hcl 0.1 Mg Tablet) 0.1 mg PO TID PRN; Protocol PRN Reason: Anxiety Last Admin: 09/28/24 09:41 Dose: 0.1 mg Cyanocobalamin (Cyanocobalamin (Vitamin B-12) 1,000 Mcg Tablet) 1,000 mcg PO DAILY [facility] Last Admin: 09/28/24 09:41 Dose: 1,000 mcg Enoxaparin Sodium (Enoxaparin Sodium 40 Mg/0.4 Ml Syringe) 40 mg SUBCUT DAILY [facility] Last Admin: 09/28/24 09:40 Dose: 40 mg Escitalopram Oxalate (Escitalopram Oxalate 20 Mg Tablet) 20 mg PO DAILY [facility] Last Admin: 09/28/24 09:41 Dose: 20 mg Famotidine (Famotidine 20 Mg Tablet) 20 mg PO BID [facility] Last Admin: 09/28/24 09:41 Dose: 20 mg Folic Acid (Folic Acid 1 Mg Tablet) 1 mg PO DAILY [facility] Last Admin: 09/28/24 09:41 Dose: 1 mg Gabapentin (Gabapentin 100 Mg Capsule) 100 mg PO BID [facility] Last Admin: 09/28/24 09:41 Dose: 100 mg Magnesium Hydroxide (Milk Of Magnesia 30 Ml Oral.Susp) 30 ml PO DAILY PRN PRN Reason: Constipation Magnesium Oxide (Magnesium Oxide 400 Mg Tablet) 400 mg PO BID [facility] Last Admin: 09/28/24 09:41 Dose: 400 mg Melatonin (Melatonin 3 Mg Tablet) 6 mg PO BEDTIME PRN PRN Reason: Insomnia Last Admin: 09/27/24 04:08 Dose: 6 mg Ondansetron HCl (Ondansetron Hcl 4 Mg/2 Ml Vial) 4 mg IVPUSH Q8H PRN PRN Reason: Nausea and Vomiting Last Admin: 09/26/24 06:19 Dose: 4 mg Oxycodone HCl (Oxycodone Hcl Immed Release 5 Mg Tablet) 5 mg PO Q6H PRN PRN Reason: Pain, Severe (Pain Scale 7-10) Last Admin: 09/28/24 13:50 Dose: 5 mg Pharmacy Consult (Consult Rx Etoh Phenob Im/Po) 1 each MISCELLANE ONCE PRN; Protocol PRN Reason: Consult order Phenobarbital (Phenobarbital 15 Mg Tablet) 15 mg PO BID [facility] Stop: 09/29/24 21:01 Last Admin: 09/28/24 09:41 Dose: 15 mg Phenobarbital (Phenobarbital 15 Mg Tablet) 15 mg PO DAILY [facility] Polyethylene Glycol (Polyethylene Glycol 3350 17 Gm Powd.Pack) 17 gm PO DAILY PRN PRN Reason: Constipation Sodium Chloride (0.9 % Sodium Chloride Flush 3 Ml Syringe) 3 ml IVFLUSH QSHIFT [facility] Last Admin: 09/28/24 15:11 Dose: 3 ml Sucralfate (Sucralfate Oral Suspension 1 Gm/10 Ml Oral.Susp) 1 gm PO QID [facility] Last Admin: 09/28/24 13:50 Dose: 1 gm Thiamine HCl (Thiamine Hcl 100 Mg Tablet) 100 mg PO DAILY [facility] Last Admin: 09/28/24 09:42 Dose: 100 mg Trazodone HCl (Trazodone Hcl 50 Mg Tablet) 50 mg PO BEDTIME PRN PRN Reason: Insomnia Last Admin: 09/27/24 21:15 Dose: 50 mg Vancomycin HCl (Vancomycin Hcl 125 Mg Capsule) 125 mg PO Q6H [facility] Vitamin D (Cholecalciferol (Vitamin D3) 25 Mcg Tablet) 50 mcg PO DAILY [facility] Last Admin: 09/28/24 09:41 Dose: 50 mcg Home Medications ?Medication ?Instructions ?Recorded ?Confirmed ?Last Taken ?Type cholecalciferol (vitamin D3) 50 50 mcg PO DAILY 11/01/23 09/26/24 09/25/24 History mcg (2,000 unit) tablet folic acid 1 mg tablet 1 mg PO DAILY 11/01/23 09/26/24 09/25/24 History pantoprazole 40 mg tablet,delayed 40 mg PO DAILY@0630 11/01/23 09/26/24 09/25/24 History release trazodone 100 mg tablet 50 mg PO BEDTIME PRN Insomnia 11/01/23 09/26/24 07/02/24 History clonidine HCl 0.1 mg tablet 0.1 mg PO TID PRN Anxiety 12/10/23 09/26/24 06/23/24 History citalopram 40 mg tablet 40 mg PO DAILY 02/26/24 09/26/24 09/25/24 History cyanocobalamin (vitamin B-12) 1,000 mcg PO DAILY 02/26/24 09/26/24 09/25/24 History 1,000 mcg tablet losartan 50 mg tablet 50 mg PO DAILY 09/26/24 09/26/24 09/25/24 History thiamine HCl (vitamin B1) 100 mg 100 mg PO DAILY 09/26/24 09/26/24 09/25/24 History tablet Physical Exam 2 Vital Signs: Vital Signs: Last Vital Signs Temp 97.6 F 09/28/24 15:28 Pulse 56 09/28/24 15:28 Resp 18 09/28/24 15:28 BP 137/69 09/28/24 15:28 Pulse Ox 96 09/28/24 15:28 O2 Del Method Room Air 09/28/24 15:28 BMI result Body Mass Index 19.6 Const: General: cooperative, healthy appearing, comfortable and no acute distress Eyes: Other: nonicteric GI: Other: abdomen soft nondistended some tenderness right upper quadrant with mild guarding Results Labs 09/25/24 21:14 09/28/24 07:22 Labs: Abnormal lab results 09/28/24 09/28/24 Range/Units 07:22 10:23 BUN 5 L (9-16) mg/dL Magnesium 1.4 L* (1.6-2.6) mg/dL AST 85 H (5-31) U/L ALT 67 H (0-31) U/L Alkaline Phosphatase 232 H (39-117) U/L Total Protein 6.1 L (6.5-8.0) g/dL C. difficile Tox B Gene POSITIVE A* (Negative) BMP 09/28/24 07:22 Sodium 138 Potassium 3.3 Chloride 101 Carbon Dioxide 27 BUN 5 L Creatinine 0.54 Calcium 9.0 Liver Function 09/28/24 Range/Units 07:22 Total Bilirubin 0.4 (0.0-1.0) mg/dL Direct Bilirubin 0.2 (0.0-0.5) mg/dL AST 85 H (5-31) U/L ALT 67 H (0-31) U/L Alkaline Phosphatase 232 H (39-117) U/L Albumin 3.5 (3.5-5.0) g/dL Urine 09/26/24 Range/Units 06:15 Urine Color Yellow Urine Appearance Clear Urine pH 6.5 (5.0-9.0) Ur Specific [place] >= 1.030 H (1.005-1.025) Urine Protein Trace (Neg-Trace) mg/dL Urine Glucose (UA) Negative (Negative) mg/dL All other labs normal. Imaging Abdomen CT scan report/results: report reviewed and image reviewed CT scan - pelvis: report reviewed and image reviewed Additional studies: Chart - [facility] ? Diagnostics Subcategory All Activity ??:?? All Time ??:?? All Subcategories Filter Laboratory Imaging Microbiology Pathology Blood Bank Tests Cardiovascular Other Specialty DATE TYPE STATUS REF RANGE/AUTHOR Hx Today 12:43 Abdomen Ultrasound Signed Shay Abbasi Today 08:40 Chest X-Ray Signed Shay Abbasi 09/27/24 11:15 Venous Duplex Signed Shay Abbasi 09/25/24 22:[address] Signed Daniel Albert 09/25/24 22:37 Abdomen/Pelvis CT Signed Kai Mahmood Jr 09/25/24 22:[address] Signed Daniel Albert 07/04/24 05:10 Abdomen/Pelvis CT Signed Louie Iqbal 06/07/24 19:15 Abdomen/Pelvis CT Signed Pattie Burk 06/07/24 19:00 Chest X-Ray Signed Pattie Burk 05/23/24 15:10 Chest X-Ray Signed Samantha Hart 05/06/24 10:13 Abdomen Ultrasound Signed Adriana Abbott 05/06/24 04:35 Abdomen/Pelvis CT Signed Adriana Abbott 01/09/24 03:[address] Signed Daniel Albert 01/09/24 03:02 Chest X-Ray Signed Daniel Albert 12/10/23 03:[address] Signed Daniel Albert 11/30/23 22:30 Chest X-Ray Signed Yaw Jimenez 11/02/23 10:00 Hepatobiliary Scan Nuclear Medicine Signed Yaw Jimenez 11/01/23 21:15 Abdomen/Pelvis CT Signed Carlos Flower 11/01/23 15:33 Abdomen Ultrasound Signed Kai Mahmood Jr, Shannon Acute 49, F?1975 MRN#? [id number] ADM IN,?HO.IMC??453?-1? 5ft 4in 114lb 3.191oz BSA: 1.53m? BMI: 19.6kg/m? Acc#? [id number] Full Code Allergies No Known Allergies Problems ? ONSET Diarrhea Hypokalemia Nausea & vomiting Abdominal pain Hypomagnesemia Alcohol withdrawal Abdominal pain with vomiting Alcoholism Hypomagnesemia Acute hypokalemia Clostridium difficile colitis Alcohol dependence Hypomagnesemia COVID-19 HTN (hypertension) Alcohol withdrawal Mood disorder Cannabis use disorder Tobacco use disorder Vital Signs Today 19:35 BP 138/64? Pulse 62? Resp 18? Temp 97.5 F? O2 Sat 96? Delivery Room Air? Home Meds Confirmed Prescription Monitoring Program MEDICATIONS (INSTRUCTIONS) LAST TAKEN Active amlodipine 5 mgPODAILY#90 tabs 09/25/24 benzonatate 200 mgPOTIDPRNcough#20 caps Unknown cholecalciferol (vitamin D3) 50 mcgPODAILY 09/25/24 citalopram 40 mgPODAILY 09/25/24 clonidine HCl 0.1 mgPOTIDPRNAnxiety Unknown cyanocobalamin (vitamin B-12) 1,000 mcgPODAILY On Hold 09/25/24 folic acid 1 mgPODAILY 09/25/24 losartan 50 mgPODAILY 09/25/24 magnesium oxide 400 mgPOBID#60 tabs 09/25/24 ondansetron 4 [id number] and vomiting#20 tabs Unknown pantoprazole 40 mgPODAILY@0630 09/25/24 thiamine HCl (vitamin B1) 100 mgPODAILY 09/25/24 trazodone 50 mgPOBEDTIMEPRNInsomnia Unknown My Widget No Data to Display Diagnostics Reports Jackelyn Bledsoe??49??F??1975 ? Allergy/Adv: No Known Allergies Close Abdomen Ultrasound (Signed) Shay Abbasi - 09/28/24 Chest X-Ray (Signed) Shay Abbasi - 09/28/24 Venous Duplex (Signed) Shay Abbasi - 09/27/[address] (Signed) Daniel Albert - 09/25/24 Abdomen/Pelvis CT (Signed) Kai Mahmood Jr - 09/25/[address] (Signed) Daniel Albert - 09/25/24 Abdomen/Pelvis CT (Signed) Louie Iqbal - 07/04/24 Abdomen/Pelvis CT (Signed) Pattie Burk - 06/07/24 Chest X-Ray (Signed) Pattie Burk - 06/07/24 Chest X-Ray (Signed) Samantha Hart - 05/23/24 Abdomen Ultrasound (Signed) Adriana Abbott - 05/06/24 Abdomen/Pelvis CT (Signed) Adriana Abbott - 05/06/[address] (Signed) Daniel Albert - 01/09/24 Chest X-Ray (Signed) Daniel Albert - 01/09/[address] (Signed) Daniel Albert - 12/10/23 Chest X-Ray (Signed) Yaw Jimenez - 11/30/23 Hepatobiliary Scan Nuclear Medicine (Signed) Dawna Jimeneznal - 11/02/23 Abdomen/Pelvis CT (Signed) Carlos Flower - 11/01/23 Abdomen Ultrasound (Signed) Kai Mahmood Jr - 11/01/23 Launch?Image [address] [address] XRay Report Signed Patient: Jackelyn Bledsoe MR#: [id number] : 1975 Acct:[id number] Age/Sex: 49 / F ADM Date: 09/26/24 Loc: [facility] 453-[address]: Luis Carlos Browning MD Ordering Physician: Luis Carlos Browning MD Date of Service: 09/28/24 Procedure(s): XR chest 1V Accession Number(s): [id number] cc: Ayala Patton MD; Luis Carlos Browning MD~ EXAMINATION: XR CHEST CLINICAL INFORMATION: Lateral chest wall pain. COMPARISON: Most recent chest radiograph dated 06/07/2024. TECHNIQUE: Frontal view of the chest was obtained. FINDINGS: The lungs are clear. The cardiomediastinal silhouette is normal in size. There is no pleural effusion or pneumothorax. No acute osseous abnormality. XR/XR chest 1V IMPRESSION: No acute cardiopulmonary findings. Electronically signed by: Shay Abbasi MD 09/28/2024 09:43 AM EST Dictated By: Shay Abbasi MD Signed By: <Electronically signed by Shay Abbasi MD in OV> 09/28/24942 DD/ 0840 TD/TT: 09/28/24 0852 Senior User Experience Architect: [facility] ? Diagnostics Subcategory All Activity ??:?? All Time ??:?? All Subcategories Filter Laboratory Imaging Microbiology Pathology Blood Bank Tests Cardiovascular Other Specialty DATE TYPE STATUS REF RANGE/AUTHOR Hx Today 12:43 Abdomen Ultrasound Signed Shay Abbasi Today 08:40 Chest X-Ray Signed Shay Abbasi 09/27/24 11:15 Venous Duplex Signed Shay Abbasi 09/25/24 22:[address] Signed Daniel Albert 09/25/24 22:37 Abdomen/Pelvis CT Signed aKi Mahmood Jr 09/25/24 22:[address] Signed Daniel Albert 07/04/24 05:10 Abdomen/Pelvis CT Signed Louie Iqbal 06/07/24 19:15 Abdomen/Pelvis CT Signed Pattie Burk 06/07/24 19:00 Chest X-Ray Signed Pattie Burk 05/23/24 15:10 Chest X-Ray Signed Samantha Hart 05/06/24 10:13 Abdomen Ultrasound Signed Adriana Abbott 05/06/24 04:35 Abdomen/Pelvis CT Signed Adriana Abbott 01/09/24 03:[address] Signed Daniel Albert 01/09/24 03:02 Chest X-Ray Signed Daniel Albert 12/10/23 03:[address] Signed Daniel Albert 11/30/23 22:30 Chest X-Ray Signed Yaw Jimenez 11/02/23 10:00 Hepatobiliary Scan Nuclear Medicine Signed Yaw Jimenez 11/01/23 21:15 Abdomen/Pelvis CT Signed Carlos Flower 11/01/23 15:33 Abdomen Ultrasound Signed Kai Mahmood Jr, Shannon Acute 49, F?1975 MRN#? [id number] ADM IN,?HO.IMC??453?-1? 5ft 4in 114lb 3.191oz BSA: 1.53m? BMI: 19.6kg/m? Acc#? [id number] Full Code Allergies No Known Allergies Problems ? ONSET Diarrhea Hypokalemia Nausea & vomiting Abdominal pain Hypomagnesemia Alcohol withdrawal Abdominal pain with vomiting Alcoholism Hypomagnesemia Acute hypokalemia Clostridium difficile colitis Alcohol dependence Hypomagnesemia COVID-19 HTN (hypertension) Alcohol withdrawal Mood disorder Cannabis use disorder Tobacco use disorder Vital Signs Today 19:35 BP 138/64? Pulse 62? Resp 18? Temp 97.5 F? O2 Sat 96? Delivery Room Air? Home Meds Confirmed Prescription Monitoring Program MEDICATIONS (INSTRUCTIONS) LAST TAKEN Active amlodipine 5 mgPODAILY#90 tabs 09/25/24 benzonatate 200 mgPOTIDPRNcough#20 caps Unknown cholecalciferol (vitamin D3) 50 mcgPODAILY 09/25/24 citalopram 40 mgPODAILY 09/25/24 clonidine HCl 0.1 mgPOTIDPRNAnxiety Unknown cyanocobalamin (vitamin B-12) 1,000 mcgPODAILY On Hold 09/25/24 folic acid 1 mgPODAILY 09/25/24 losartan 50 mgPODAILY 09/25/24 magnesium oxide 400 mgPOBID#60 tabs 09/25/24 ondansetron 4 [id number] and vomiting#20 tabs Unknown pantoprazole 40 mgPODAILY@0630 09/25/24 thiamine HCl (vitamin B1) 100 mgPODAILY 09/25/24 trazodone 50 mgPOBEDTIMEPRNInsomnia Unknown My Widget No Data to Display Diagnostics Reports Jackelyn Bledsoe??49??F??1975 ? Allergy/Adv: No Known Allergies Close Abdomen Ultrasound (Signed) Shay Abbasi - 09/28/24 Chest X-Ray (Signed) Shay Abbasi - 09/28/24 Venous Duplex (Signed) Shay Abbasi - 09/27/[address] (Signed) Daniel Albert - 09/25/24 Abdomen/Pelvis CT (Signed) Kai Mahmood Jr - 09/25/[address] (Signed) Daniel Albert - 09/25/24 Abdomen/Pelvis CT (Signed) Louie Iqbal - 07/04/24 Abdomen/Pelvis CT (Signed) Pattie Burk - 06/07/24 Chest X-Ray (Signed) Pattie Burk - 06/07/24 Chest X-Ray (Signed) Samantha Hart - 05/23/24 Abdomen Ultrasound (Signed) Adriana Abbott - 05/06/24 Abdomen/Pelvis CT (Signed) Adriana Abbott - 05/06/[address] (Signed) Daniel Albert - 01/09/24 Chest X-Ray (Signed) Daniel Albert - 01/09/[address] (Signed) Daniel Albert - 12/10/23 Chest X-Ray (Signed) Yaw Jimenez - 11/30/23 Hepatobiliary Scan Nuclear Medicine (Signed) Yaw Jimenez - 11/02/23 Abdomen/Pelvis CT (Signed) Carlos Flower - 11/01/23 Abdomen Ultrasound (Signed) Kai Mahmood - 11/01/23 Launch?Image [address] [address] Ultrasound Report Signed Patient: Jackelyn Bledsoe MR#: [id number] : 1975 Acct:[id number] Age/Sex: 49 / F ADM Date: 09/26/24 Loc: [facility] 453-[address]: Luis Carlos Browning MD Ordering Physician: Luis Carlos Browning MD Date of Service: 09/28/24 Procedure(s): US abdomen limited Accession Number(s): [id number] cc: Ayala Patton MD; Luis Carlos Browning MD~ EXAMINATION: US ABDOMEN LIMITED CLINICAL INFORMATION: Right upper quadrant abdominal pain. Elevated LFTs. COMPARISON: CT abdomen/pelvis dated 09/25/2024. TECHNIQUE: Real-time imaging of the right upper quadrant abdominal viscera. FINDINGS: PANCREAS: Visualized portions are unremarkable. LIVER: Mildly enlarged measuring up to 18.2 cm. The liver contour is normal. Increased parenchymal echogenicity, consistent with steatosis. No focal hepatic lesion. There is no intrahepatic biliary duct dilatation seen. GALLBLADDER: Mildly contracted. No gallstones. No gallbladder wall thickening or pericholecystic free fluid to suggest acute cholecystitis. Positive sonographic Lockett's sign. COMMON BILE DUCT: Normal in caliber measuring 0.3 cm in diameter. RIGHT KIDNEY: No hydronephrosis. No renal calculi or focal parenchymal lesions. The kidney measures 11 cm in maximum dimension. FREE FLUID: None. US/US abdomen limited IMPRESSION: 1. Mild hepatomegaly. Hepatic steatosis. No hepatic parenchymal lesion or biliary ductal dilatation. 2. Contracted gallbladder without cholelithiasis, wall thickening, or pericholecystic free fluid to suggest acute cholecystitis. Positive sonographic Lockett's sign. Electronically signed by: Shay Abbasi MD 09/28/2024 01:59 PM EST Dictated By: Shay Abbasi MD Signed By: <Electronically signed by Shay Abbasi MD in OV> 09/28/24 1359 DD/ 1243 TD/TT: 09/28/24 1248 Senior User Experience Architect: Assessment and Plan (1) Abdominal pain with vomiting: Status: Acute Plan 49 yo female with etoh and hep C hx substance abuse issues - ruq pain-? liver/hep issues vs GB - last time similar sx - plan repeat HIDA in am and eval function. will follow along . Procedures Date of Service Date of Service: 09/28/24
[2024-09-28] MEDS: vancomycin HCL 125 MG CAPSULE PO (17:19)
[2024-09-28 19:35] VITALS: BP 138/64; PULSE 62; RESP 18; TEMP 36.4; O2SAT 96
[2024-09-28] MEDS: traZODone HCL 50 MG TABLET PO (20:50)
[2024-09-28 23:15] VITALS: BP 147/76; PULSE 70; RESP 16; TEMP 36.4; O2SAT 98
[2024-09-29] MEDS: cloNIDine HCL 0.1 MG TABLET PO ×3 (00:53→18:08)
[2024-09-29] MEDS: vancomycin HCL 125 MG CAPSULE PO ×4 (00:53→18:08)
[2024-09-29] MEDS: Melatonin 3 MG TABLET 6 MG PO ×2 (00:54→22:16)
[2024-09-29 03:47] VITALS: BP 110/57; PULSE 56; RESP 16; TEMP 36.8; O2SAT 97
[2024-09-29] MEDS: oxyCODONE HCl Immed Release 5 MG TABLET PO ×3 (04:25→18:08)
[2024-09-29] MEDS: 0.9 % Sodium Chloride Flush 3 ML SYRINGE IVFLUSH ×4 (06:08→20:11)
[2024-09-29 07:14] LABS: Magnesium 1.4 mg/dL (1.6-2.6)
[2024-09-29 07:38] VITALS: BP 160/86; PULSE 55; RESP 18; TEMP 36; O2SAT 98
[2024-09-29] MEDS: Thiamine HCL 100 MG TABLET PO (08:56)
[2024-09-29] MEDS: Escitalopram Oxalate 20 MG TABLET PO (08:56)
[2024-09-29] MEDS: amLODIPine Besylate 5 MG TABLET PO (08:56)
[2024-09-29] MEDS: Famotidine 20 MG TABLET PO ×2 (08:56→20:11)
[2024-09-29] MEDS: Gabapentin 100 MG CAPSULE PO ×2 (08:56→20:11)
[2024-09-29] MEDS: Folic Acid 1 MG TABLET PO (08:57)
[2024-09-29] MEDS: Cyanocobalamin (Vitamin B-12) 1,000 MCG TABLET 1000 MCG PO (08:57)
[2024-09-29] MEDS: Cholecalciferol (Vitamin D3) 25 MCG TABLET 50 MCG PO (08:57)
[2024-09-29] MEDS: Magnesium Oxide 400 MG TABLET PO ×2 (08:57→20:11)
[2024-09-29] MEDS: PHENobarbitaL 15 MG TABLET PO ×2 (08:57→20:11)
[2024-09-29] MEDS: Magnesium Sulfate/H2O 2 GM/50 ML PIGGYBACK IV (08:58)
[2024-09-29] MEDS: Sucralfate Oral Suspension 1 GM/10 ML ORAL.SUSP PO ×4 (08:58→20:11)
[2024-09-29] MEDS: Enoxaparin Sodium 40 MG/0.4 ML SYRINGE SUBCUT (08:58)
--- NOTE | 2024-09-29 10:44 | HO.PM.IMPN ---
Subjective Subjective Date of Service: 09/29/24 Physical Exam Vital Signs: Vital Signs: Last Vital Signs Temp 96.8 F 09/29/24 07:38 Pulse 55 09/29/24 07:38 Resp 18 09/29/24 07:38 BP 160/86 H 09/29/24 07:38 Pulse Ox 98 09/29/24 07:38 O2 Del Method Room Air 09/29/24 07:38 BMI result Body Mass Index 19.6 Const: Other: General: AO X 3, no acute distress Resp: CTA bilateral CVS: S1,S2,RRR GI: +BS, NT, no distention Skin: No rash Neuro: motor grossly intact Psych: appropriate affect Objective Data Active Medications Acetaminophen (Acetaminophen 325 Mg Tablet) 650 mg PO Q6H PRN PRN Reason: Pain, Mild (Pain Scale 1-3), fever or headache Amlodipine Besylate (Amlodipine Besylate 5 Mg Tablet) 5 mg PO DAILY [facility]; Protocol Last Admin: 09/29/24 08:56 Dose: 5 mg Documented By: PARVEEN Calcium Carbonate (Calcium Carbonate 750 Mg Tab.Chew) 750 mg PO Q4H PRN PRN Reason: Heartburn Clonidine HCl (Clonidine Hcl 0.1 Mg Tablet) 0.1 mg PO TID PRN; Protocol PRN Reason: Anxiety Last Admin: 09/29/24 08:57 Dose: 0.1 mg Documented By: PARVEEN Cyanocobalamin (Cyanocobalamin (Vitamin B-12) 1,000 Mcg Tablet) 1,000 mcg PO DAILY [facility] Last Admin: 09/29/24 08:57 Dose: 1,000 mcg Documented By: PARVEEN Enoxaparin Sodium (Enoxaparin Sodium 40 Mg/0.4 Ml Syringe) 40 mg SUBCUT DAILY [facility] Last Admin: 09/29/24 08:58 Dose: 40 mg Documented By: PARVEEN Escitalopram Oxalate (Escitalopram Oxalate 20 Mg Tablet) 20 mg PO DAILY [facility] Last Admin: 09/29/24 08:56 Dose: 20 mg Documented By: PARVEEN Famotidine (Famotidine 20 Mg Tablet) 20 mg PO BID [facility] Last Admin: 09/29/24 08:56 Dose: 20 mg Documented By: PARVEEN Folic Acid (Folic Acid 1 Mg Tablet) 1 mg PO DAILY [facility] Last Admin: 09/29/24 08:57 Dose: 1 mg Documented By: PARVEEN Gabapentin (Gabapentin 100 Mg Capsule) 100 mg PO BID [facility] Last Admin: 09/29/24 08:56 Dose: 100 mg Documented By: PARVEEN Magnesium Hydroxide (Milk Of Magnesia 30 Ml Oral.Susp) 30 ml PO DAILY PRN PRN Reason: Constipation Magnesium Oxide (Magnesium Oxide 400 Mg Tablet) 400 mg PO BID [facility] Last Admin: 09/29/24 08:57 Dose: 400 mg Documented By: PARVEEN Melatonin (Melatonin 3 Mg Tablet) 6 mg PO BEDTIME PRN PRN Reason: Insomnia Last Admin: 09/29/24 00:54 Dose: 6 mg Documented By: SKYLAR Ondansetron HCl (Ondansetron Hcl 4 Mg/2 Ml Vial) 4 mg IVPUSH Q8H PRN PRN Reason: Nausea and Vomiting Last Admin: 09/26/24 06:19 Dose: 4 mg Documented By: RAMON Oxycodone HCl (Oxycodone Hcl Immed Release 5 Mg Tablet) 5 mg PO Q6H PRN PRN Reason: Pain, Severe (Pain Scale 7-10) Last Admin: 09/29/24 04:25 Dose: 5 mg Documented By: SKYLAR Pharmacy Consult (Consult Rx Etoh Phenob Im/Po) 1 each MISCELLANE ONCE PRN; Protocol PRN Reason: Consult order Phenobarbital (Phenobarbital 15 Mg Tablet) 15 mg PO BID [facility] Stop: 09/29/24 21:01 Last Admin: 09/29/24 08:57 Dose: 15 mg Documented By: PARVEEN Phenobarbital (Phenobarbital 15 Mg Tablet) 15 mg PO DAILY [facility] Polyethylene Glycol (Polyethylene Glycol 3350 17 Gm Powd.Pack) 17 gm PO DAILY PRN PRN Reason: Constipation Sodium Chloride (0.9 % Sodium Chloride Flush 3 Ml Syringe) 3 ml IVFLUSH QSHIFT [facility] Last Admin: 09/29/24 08:58 Dose: 3 ml Documented By: PARVEEN Sucralfate (Sucralfate Oral Suspension 1 Gm/10 Ml Oral.Susp) 1 gm PO QID [facility] Last Admin: 09/29/24 08:58 Dose: 1 gm Documented By: PARVEEN Thiamine HCl (Thiamine Hcl 100 Mg Tablet) 100 mg PO DAILY [facility] Last Admin: 09/29/24 08:56 Dose: 100 mg Documented By: PARVEEN Trazodone HCl (Trazodone Hcl 50 Mg Tablet) 50 mg PO BEDTIME PRN PRN Reason: Insomnia Last Admin: 09/28/24 20:50 Dose: 50 mg Documented By: SKYLAR Comments: requested for sleep Vancomycin HCl (Vancomycin Hcl 125 Mg Capsule) 125 mg PO Q6H [facility] Last Admin: 09/29/24 06:07 Dose: 125 mg Documented By: SKYLAR Vitamin D (Cholecalciferol (Vitamin D3) 25 Mcg Tablet) 50 mcg PO DAILY [facility] Last Admin: 09/29/24 08:57 Dose: 50 mcg Documented By: PARVEEN Labs 09/25/24 21:14 09/28/24 07:22 Labs: Laboratory Results - last 24 hr 09/28/24 09/29/24 10:23 06:29 Hold Purple Top SEE NOTE Magnesium 1.4 L* Stl C. cayetanensis PCR Not Detected Stool Rotavirus A PCR Not Detected Stl Adenov F 40/41 PCR Not Detected Stool Astrovirus (PCR) Not Detected Stool Campylobacter PCR Not Detected Stool Cryptosporidium PCR Not Detected Stl Sh Tox Pr E STEC PCR Not Detected Stool E coli O157 PCR Not applicable Stl Enterotoxigenic E PCR Not Detected Stool EPEC (PCR) Not Detected Stool EAEC (PCR) Not Detected Stl E. histolytica PCR Not Detected Stool Giardia Lamblia PCR Not Detected Stl P. shigelloides PCR Not Detected Stool Salmonella PCR Not Detected Stool Sapovirus (PCR) Not Detected Stl Shigella/EIEC PCR Not Detected St Y.enterocolitica PCR Not Detected Stool Vibrio (PCR) Not Detected Stl Vibrio cholerae PCR Not Detected Stl Norovirus GI/GII PCR Not Detected C. difficile Tox B Gene POSITIVE A* C. difficile Toxin A&B Negative C. difficile Interpret SEE NOTE Assessment and Plan (1) Hypomagnesemia: Status: Acute (2) Abdominal pain: Status: Acute (3) Diarrhea: Status: Acute Plan 49-year-old female with a history of alcohol abuse and dependence presents with alcohol withdrawal and abdominal pain likely secondary to alcoholic gastritis. Labs reveal hypokalemia (K: 3.0) and hypomagnesemia (M.4) , for which supplementation has been initiated. Alcohol withdrawal, high risk for DTs phenobarbital protocol folic acid and thiamine supplement addiction med consult HypOkalemia/HypOmagenesemia IV Mag sulfate replacement and repeat level Oral mag as well abd pain ? ruq lateral cxr negative eleavted lft/alk phos,normal lipase surgery recommend HIDA planned for today diarrhae :? component of ch will check cdiff /gippanel was in [facility] recently for above ,? left ama Alcoholic gastritis as cause of abdominal pain -PPI HTN, norvasc Mood disorder continue home meds DVT prophylaxis--lovenox, monitor platlets full code ongoing need for hospitlisation for management of acute alcohol withdrawal, abd pain -need further workup, lft's monitering ,aggressive electrolytic replacements and monitering of renal function as well as electrolytes , surgery eval. Quality Stroke Does the patient have a stroke diagnosis?: No VTE Prior VTE?: No VTE Risk Level:: Medical - moderate - high VTE Device Contraindication: N/A - Device Ordered VTE Drug Contraindication: N/A - Med Ordered
[2024-09-29 11:37] VITALS: BP 135/60; PULSE 58; RESP 20; TEMP 36.1; O2SAT 97
[2024-09-29] MEDS: hydrOXYzine HCL 25 MG TABLET PO ×2 (12:45→20:11)
[2024-09-29] MEDS: ondansetron HCL 4 MG/2 ML VIAL IVPUSH (15:27)
[2024-09-29 15:38] VITALS: BP 159/71; PULSE 57; RESP 17; TEMP 37; O2SAT 99
--- NOTE | 2024-09-29 15:40 | MHC.CM.PN ---
EMR reviewed and per MD rounds, pt is not medically cleared for discharge due to management of ETOH W/D.
--- NOTE | 2024-09-29 16:03 | MHC.RECOVRN ---
Met with pt to check in and provide support. Pts fiance and son present with pts permission. Pt reports feeling okay, reports abdominal pain. Continued discussion regarding [facility], pt would like to return to [facility] upon discharge. Denies other questions or concerns at this time. Discussed with Hedie Paul APRN.
[2024-09-29 19:18] VITALS: BP 128/62; PULSE 68; RESP 16; TEMP 36.4; O2SAT 99
[2024-09-29] MEDS: traZODone HCL 50 MG TABLET PO (22:16)
[2024-09-29] MEDS: Magnesium Sulfate/D5W 1 GM/100 ML PIGGYBACK IV (22:22)
[2024-09-29 23:37] VITALS: BP 123/67; PULSE 55; RESP 18; TEMP 36; O2SAT 98
[2024-09-30] MEDS: cloNIDine HCL 0.1 MG TABLET PO ×3 (00:04→20:14)
[2024-09-30] MEDS: oxyCODONE HCl Immed Release 5 MG TABLET PO ×2 (00:04→06:24)
[2024-09-30] MEDS: vancomycin HCL 125 MG CAPSULE PO ×4 (00:05→18:06)
[2024-09-30 03:01] VITALS: BP 114/71; PULSE 65; RESP 18; TEMP 36; O2SAT 98
--- NOTE | 2024-09-30 05:25 | PC.NURSE ---
per pt request new working iv removed d/t position change discomfort she will let us know when ready for new iv
[2024-09-30] MEDS: hydrOXYzine HCL 25 MG TABLET PO ×3 (06:25→20:14)
[2024-09-30 07:35] VITALS: BP 148/70; PULSE 54; RESP 14; TEMP 36.7; O2SAT 98
[2024-09-30] MEDS: Sucralfate Oral Suspension 1 GM/10 ML ORAL.SUSP PO ×4 (08:42→20:14)
[2024-09-30] MEDS: Cyanocobalamin (Vitamin B-12) 1,000 MCG TABLET 1000 MCG PO (08:42)
[2024-09-30] MEDS: PHENobarbitaL 15 MG TABLET PO (08:42)
[2024-09-30] MEDS: Folic Acid 1 MG TABLET PO (08:42)
[2024-09-30] MEDS: Famotidine 20 MG TABLET PO ×2 (08:42→20:14)
[2024-09-30] MEDS: Magnesium Oxide 400 MG TABLET PO ×2 (08:43→20:14)
[2024-09-30] MEDS: Thiamine HCL 100 MG TABLET PO (08:43)
[2024-09-30] MEDS: Enoxaparin Sodium 40 MG/0.4 ML SYRINGE SUBCUT (08:43)
[2024-09-30] MEDS: Gabapentin 100 MG CAPSULE PO ×2 (08:43→20:14)
[2024-09-30] MEDS: Escitalopram Oxalate 20 MG TABLET PO (08:43)
[2024-09-30] MEDS: Cholecalciferol (Vitamin D3) 25 MCG TABLET 50 MCG PO (08:43)
[2024-09-30] MEDS: amLODIPine Besylate 5 MG TABLET PO (08:43)
[2024-09-30 11:59] VITALS: BP 133/71; PULSE 61; RESP 20; TEMP 36.3; O2SAT 97
[2024-09-30 13:07] LABS: Magnesium 1.6 mg/dL (1.6-2.6)
--- NOTE | 2024-09-30 14:47 | P.PNIM_ITS ---
Subjective Subjective Date of Service: 10/01/24 Interval History: abd pain Review of Systems seems abd and diarrhae improving no fevers Physical Exam 2 Vital Signs: Vital Signs: Last Vital Signs Temp 97.3 F 09/30/24 11:59 Pulse 61 09/30/24 11:59 Resp 20 09/30/24 11:59 BP 133/71 09/30/24 11:59 Pulse Ox 97 09/30/24 11:59 O2 Del Method Room Air 09/30/24 11:59 BMI result Body Mass Index 19.6 General: AO X 3, no acute distress Resp: CTA bilateral CVS: S1,S2,RRR GI: +BS, NT, no distention Skin: No rash Neuro: motor grossly intact Psych: appropriate affect Objective Data Active Medications Acetaminophen (Acetaminophen 325 Mg Tablet) 650 mg PO Q6H PRN PRN Reason: Pain, Mild (Pain Scale 1-3), fever or headache Amlodipine Besylate (Amlodipine Besylate 5 Mg Tablet) 5 mg PO DAILY [facility]; Protocol Last Admin: 09/30/24 08:43 Dose: 5 mg Documented By: LANETTE Calcium Carbonate (Calcium Carbonate 750 Mg Tab.Chew) 750 mg PO Q4H PRN PRN Reason: Heartburn Clonidine HCl (Clonidine Hcl 0.1 Mg Tablet) 0.1 mg PO TID PRN; Protocol PRN Reason: Anxiety Last Admin: 09/30/24 10:59 Dose: 0.1 mg Documented By: LANETTE Cyanocobalamin (Cyanocobalamin (Vitamin B-12) 1,000 Mcg Tablet) 1,000 mcg PO DAILY [facility] Last Admin: 09/30/24 08:42 Dose: 1,000 mcg Documented By: LANETTE Enoxaparin Sodium (Enoxaparin Sodium 40 Mg/0.4 Ml Syringe) 40 mg SUBCUT DAILY [facility] Last Admin: 09/30/24 08:43 Dose: 40 mg Documented By: LANETTE Escitalopram Oxalate (Escitalopram Oxalate 20 Mg Tablet) 20 mg PO DAILY [facility] Last Admin: 09/30/24 08:43 Dose: 20 mg Documented By: LANETTE Famotidine (Famotidine 20 Mg Tablet) 20 mg PO BID [facility] Last Admin: 09/30/24 08:42 Dose: 20 mg Documented By: LANETTE Folic Acid (Folic Acid 1 Mg Tablet) 1 mg PO DAILY [facility] Last Admin: 09/30/24 08:42 Dose: 1 mg Documented By: LANETTE Gabapentin (Gabapentin 100 Mg Capsule) 100 mg PO BID [facility] Last Admin: 09/30/24 08:43 Dose: 100 mg Documented By: LANETTE Hydroxyzine HCl (Hydroxyzine Hcl 25 Mg Tablet) 25 mg PO Q6H PRN PRN Reason: Anxiety Last Admin: 09/30/24 12:51 Dose: 25 mg Documented By: LANETTE Magnesium Hydroxide (Milk Of Magnesia 30 Ml Oral.Susp) 30 ml PO DAILY PRN PRN Reason: Constipation Magnesium Oxide (Magnesium Oxide 400 Mg Tablet) 400 mg PO BID [facility] Last Admin: 09/30/24 08:43 Dose: 400 mg Documented By: LANETTE Melatonin (Melatonin 3 Mg Tablet) 6 mg PO BEDTIME PRN PRN Reason: Insomnia Last Admin: 09/29/24 22:16 Dose: 6 mg Documented By: JORGE Ondansetron HCl (Ondansetron Hcl 4 Mg/2 Ml Vial) 4 mg IVPUSH Q8H PRN PRN Reason: Nausea and Vomiting Last Admin: 09/29/24 15:27 Dose: 4 mg Documented By: LESSARAdrienne Oxycodone HCl (Oxycodone Hcl Immed Release 5 Mg Tablet) 5 mg PO Q6H PRN PRN Reason: Pain, Severe (Pain Scale 7-10) Last Admin: 09/30/24 06:24 Dose: 5 mg Documented By: JORGE Pharmacy Consult (Consult Rx Etoh Phenob Im/Po) 1 each MISCELLANE ONCE PRN; Protocol PRN Reason: Consult order Phenobarbital (Phenobarbital 15 Mg Tablet) 15 mg PO DAILY [facility] Last Admin: 09/30/24 08:42 Dose: 15 mg Documented By: LANETTE Polyethylene Glycol (Polyethylene Glycol 3350 17 Gm Powd.Pack) 17 gm PO DAILY PRN PRN Reason: Constipation Sodium Chloride (0.9 % Sodium Chloride Flush 3 Ml Syringe) 3 ml IVFLUSH QSHIFT [facility] Last Admin: 09/30/24 08:43 Dose: Not Given Documented By: LANETTE Non-Admin Reason: No Access Sucralfate (Sucralfate Oral Suspension 1 Gm/10 Ml Oral.Susp) 1 gm PO QID [facility] Last Admin: 09/30/24 12:51 Dose: 1 gm Documented By: LANETTE Thiamine HCl (Thiamine Hcl 100 Mg Tablet) 100 mg PO DAILY [facility] Last Admin: 09/30/24 08:43 Dose: 100 mg Documented By: LANETTE Trazodone HCl (Trazodone Hcl 50 Mg Tablet) 50 mg PO BEDTIME PRN PRN Reason: Insomnia Last Admin: 09/29/24 22:16 Dose: 50 mg Documented By: JORGE Vancomycin HCl (Vancomycin Hcl 125 Mg Capsule) 125 mg PO Q6H [facility] Last Admin: 09/30/24 12:51 Dose: 125 mg Documented By: LANETTE Vitamin D (Cholecalciferol (Vitamin D3) 25 Mcg Tablet) 50 mcg PO DAILY [facility] Last Admin: 09/30/24 08:43 Dose: 50 mcg Documented By: LANETTE Labs 09/25/24 21:14 10/01/24 06:24 Labs: Laboratory Results - last 24 hr 09/30/24 09/30/24 12:25 12:46 Hold Purple Top SEE NOTE Magnesium 1.6 Assessment and Plan (1) Diarrhea: Status: Acute (2) Hypokalemia: Status: Acute (3) Abdominal pain: Status: Acute Assessment and Plan: 49-year-old female with a history of alcohol abuse and dependence presents with alcohol withdrawal and abdominal pain likely secondary to alcoholic gastritis. Labs reveal hypokalemia (K: 3.0) and hypomagnesemia (M.4) , for which supplementation has been initiated. Alcohol withdrawal, high risk for DTs phenobarbital protocol folic acid and thiamine supplement addiction med consult HypOkalemia/HypOmagenesemia IV Mag sulfate replacement and repeat level Oral mag as well abd pain ? ruq lateral cxr negative eleavted lft/alk phos,normal lipase HIDA scan pending suregry followup diarrhae :? component of will check cdiff /gippanel was in [facility] recently for above ,? left ama Alcoholic gastritis as cause of abdominal pain -PPI HTN, norvasc Mood disorder continue home meds DVT prophylaxis--lovenox, monitor platlets full code ongoing need for hospitlisation for management of acute alcohol withdrawal, abd pain -need further workup, lft's monitering ,aggressive electrolytic replacements and monitering of renal function as well as electrolytes , surgery eval. Quality Stroke Does the patient have a stroke diagnosis?: No VTE Prior VTE?: No VTE Risk Level:: Medical - moderate - high VTE Device Contraindication: N/A - Device Ordered VTE Drug Contraindication: N/A - Med Ordered
[2024-09-30 15:33] VITALS: BP 142/70; PULSE 62; RESP 18; TEMP 36.7; O2SAT 97
[2024-09-30] MEDS: Magnesium Sulfate/D5W 1 GM/100 ML PIGGYBACK IV (16:14)
[2024-09-30 20:00] VITALS: BP 140/79; PULSE 57; RESP 16; TEMP 36.2; O2SAT 98
[2024-09-30] MEDS: Melatonin 3 MG TABLET 6 MG PO (22:04)
[2024-09-30] MEDS: traZODone HCL 50 MG TABLET PO (22:05)
[2024-10-01] VITALS: BP 113/64; PULSE 62; RESP 16; TEMP 36.8; O2SAT 96
[2024-10-01] MEDS: vancomycin HCL 125 MG CAPSULE PO ×3 (01:19→12:07)
[2024-10-01 04:00] VITALS: BP 153/87; PULSE 54; RESP 16; TEMP 36.6; O2SAT 98
[2024-10-01] MEDS: hydrOXYzine HCL 25 MG TABLET PO (06:13)
[2024-10-01 06:58] LABS: Alanine Aminotransferase 58 U/L (0-31); Albumin Level 3.8 g/dL (3.5-5.0); Alkaline Phosphatase 185 U/L (39-117); Anion Gap 16 (12-20); Aspartate Amino Transferase 51 U/L (5-31); Bilirubin Total 0.2 mg/dL (0.0-1.0); Blood Urea Nitrogen 12 mg/dL (9-16); Calcium 9.7 mg/dL (8.4-10.2); Carbon Dioxide 24 mmol/L (22-29); Chloride 106 mmol/L (96-108); Creatinine Clr Calc Pharmacy 87.3; Estimated Glomerular Filt Rate > 60; Glucose Random 126 mg/dL (60-115); Potassium 4.3 mmol/L (3.3-5.1); Sodium 142 mmol/L (135-145); Total Protein 6.7 g/dL (6.5-8.0)
[2024-10-01 07:17] VITALS: BP 128/60; PULSE 60; RESP 18; TEMP 36.4; O2SAT 100
--- NOTE | 2024-10-01 07:48 | MHC.CM.PN ---
Patient has been medically cleared for dc to home today, self care.
[2024-10-01] MEDS: Famotidine 20 MG TABLET PO (08:43)
[2024-10-01] MEDS: Escitalopram Oxalate 20 MG TABLET PO (08:44)
[2024-10-01] MEDS: Folic Acid 1 MG TABLET PO (08:44)
[2024-10-01] MEDS: Thiamine HCL 100 MG TABLET PO (08:44)
[2024-10-01] MEDS: Sucralfate Oral Suspension 1 GM/10 ML ORAL.SUSP PO ×2 (08:44→12:07)
[2024-10-01] MEDS: Cyanocobalamin (Vitamin B-12) 1,000 MCG TABLET 1000 MCG PO (08:44)
[2024-10-01] MEDS: Cholecalciferol (Vitamin D3) 25 MCG TABLET 50 MCG PO (08:44)
[2024-10-01] MEDS: PHENobarbitaL 15 MG TABLET PO (08:44)
[2024-10-01] MEDS: Magnesium Oxide 400 MG TABLET PO (08:44)
[2024-10-01] MEDS: Gabapentin 100 MG CAPSULE PO (08:44)
[2024-10-01] MEDS: amLODIPine Besylate 5 MG TABLET PO (08:44)
[2024-10-01] MEDS: Enoxaparin Sodium 40 MG/0.4 ML SYRINGE SUBCUT (08:45)
--- NOTE | 2024-10-01 09:41 | PM.DS ---
DS: Providers Provider Date of Service: 10/01/24 Date of admission: 09/26/24 01:26 Date of discharge: 10/01/24 Primary care physician: Ayala Patton MD Consults: 09/26/24 01:25 Addiction Medicine Routine Consulting Provider: Addiction Covering Reason for consultation: alcohol dependence Has provider been notified: No 09/28/24 12:03 Consult to General Surgery Routine Consulting [place] [facility] Reason for consultation: ruq pain, elevated lft Has provider been notified: No Attending physician on discharge: Luis Carlos Browning Discharging clinician: Luis Carlos Browning DS: Diagnosis Discharge Diagnosis (1) Diarrhea: Status: Acute (2) Hypokalemia: Status: Acute (3) Abdominal pain: Status: Acute DS: Summary Hospital Course Hospital Course: hpi:49-year-old female with a medical history of hypertension, depression/anxiety, and alcohol abuse/dependence, who reports consuming approximately 10 drinks daily, presents with abdominal pain that started this morning. The pain has prevented her from consuming her usual amount of alcohol, resulting in symptoms of alcohol withdrawal, including tremors, tachycardia, and elevated blood pressure. She was treated with Ativan, leading to an improvement in her symptoms, and was subsequently started on a phenobarbital protocol. Laboratory results reveal a potassium level of 3.0 and magnesium level of 1.4 , for which she has received supplementation. A CT scan of the abdomen shows no acute findings. Of note, she sustained a fall several days prior, resulting in facial bruising. CT imaging of the head and face reveals no acute findings or fractures. Hospital course: 49-year-old female who was admitted to the hospital because of alcohol withdrawal, electrolyte abnormalities and abdominal pain with diarrhea: Patient was treated with phenobarb protocol, aggressive electrolyte replacement and monitoring, in addition her stool studies came out to be possible C diff started on vanco-diarrhea improving as well as abdominal pain. Patient will be going home with p.o. vanco 125 mg po qid for 10 days . elevated lfts-likely in the setting of alcohol use, improving, monitor LFT outpatient and further management as per PCP. Patient was strongly advised to abstain from alcohol. Initially patient had some question of abdominal pain which is resolved after started on p.o. vanco for C diff treatment, ultrasound initially showed question of cholecystitis but HIDA scan was done which is negative. Patient was advised to follow-up with PCP if he has new pains than may need further evaluation for above. Electrolytic abnormalities improved, will give limited supply potassium 10 mEq daily for 4 more days. Repeat BMP outpatient in 1 week. plan: Patient was strongly advised to abstain from alcohol. limited supply potassium 10 mEq daily for 4 more days. Repeat BMP and lft's outpatient in 1 week. p.o. vanco 125 mg po qid for 10 days . moniter bmp . Above management discussed with the patient detail length she understand and in agreement with the above plan, time spent 40 minute. Time Attestation Total time managing care of this patient today: 40 mintues. Discharge Coordination Time (in mins): 40 min Quality: Safe Use of Opioids Does Pt have an Active Cancer Diagnosis on the Problem List?: No Quality: Stroke Does the patient have a stroke diagnosis?: No Physical Exam Vital Signs: Vital Signs: Last Vital Signs Temp 97.5 F 10/01/24 07:17 Pulse 60 10/01/24 07:17 Resp 18 10/01/24 07:17 BP 128/60 10/01/24 07:17 Pulse Ox 100 10/01/24 07:17 O2 Del Method Room Air 10/01/24 07:17 BMI result Body Mass Index 19.6 General: AO X 3, no acute distress Resp: CTA bilateral CVS: S1,S2,RRR GI: +BS, NT, no distention Skin: No rash Neuro: motor grossly intact Psych: appropriate affect DS: Data Data Completed and Pending Completed studies during hospitalization [Text1]: Procedures Detoxification Services for Substance Abuse Treatment (06/07/24) Labs on day of discharge: Laboratory Results - last 24 hr 09/30/24 09/30/24 10/01/24 12:25 12:46 06:24 Hold Purple Top SEE NOTE Sodium 142 Potassium 4.3 D Chloride 106 Carbon Dioxide 24 Anion Gap 16 BUN 12 Creatinine 0.63 Estim Creat Clear Calc 87.3 Estimated GFR > 60 Random Glucose 126 H Calcium 9.7 D Magnesium 1.6 Total Bilirubin 0.2 AST 51 H ALT 58 H Alkaline Phosphatase 185 H Total Protein 6.7 Albumin 3.8 Imaging Chest x-ray: Radiologist's impression: ITS Impressions Head CT 09/25/24 22:07 IMPRESSION: 1. No acute intracranial pathology. 2. No facial bone fracture. 3. Mild left periorbital soft tissue swelling. Electronically signed by: Daniel Albert MD 09/25/2024 11:25 PM EST RP Abdomen/Pelvis CT 09/25/24 22:37 IMPRESSION: No acute intra-abdominal/intrapelvic abnormality. The liver is enlarged and steatotic. Fleischner guidelines were followed. Electronically signed by: Kai Mahmood DO 09/25/2024 11:07 PM EST RP Face CT 09/25/24 22:38 IMPRESSION: 1. No acute intracranial pathology. 2. No facial bone fracture. 3. Mild left periorbital soft tissue swelling. Electronically signed by: Daniel Albert MD 09/25/2024 11:25 PM EST RP Venous Duplex 09/27/24 11:15 IMPRESSION: No evidence of deep venous thrombosis involving the bilateral lower extremities. Electronically signed by: Shay Abbasi MD 09/27/2024 12:09 PM EST RP Chest X-Ray 09/28/24 08:40 IMPRESSION: No acute cardiopulmonary findings. Electronically signed by: Shay Abbasi MD 09/28/2024 09:43 AM EST RP Abdomen Ultrasound 09/28/24 12:43 IMPRESSION: 1. Mild hepatomegaly. Hepatic steatosis. No hepatic parenchymal lesion or biliary ductal dilatation. 2. Contracted gallbladder without cholelithiasis, wall thickening, or pericholecystic free fluid to suggest acute cholecystitis. Positive sonographic Lockett's sign. Electronically signed by: Shay Abbasi MD 09/28/2024 01:59 PM EST RP Hepatobiliary Scan Nuclear Medicine 09/29/24 15:30 IMPRESSION: Normal biliary scan. Visualization of the gallbladder is evidence of a patent cystic duct and strong evidence against the diagnosis of acute cholecystitis. The common bile duct is patent. Liver function appears normal. Please note that CCK was not administered at the gallbladder appears contracted on the initial images, appear concordant with prior right upper quadrant abdominal ultrasound done on 09/28/2024. Electronically signed by: Shi Vilchis MD 09/30/2024 03:59 PM EST RP Discharge Plan Discharge Anticipated Discharge Date/Time: 10/01/24 07:38 Patient Disposition: Home, Self-Care Discharge Diagnosis: possible cdiff diarrhae, abd pain,hypokalemia/hypomagnesemia Referrals: Ayala Patton MD [Primary Care Provider] - 1 Week Discharge Medications: New vancomycin 125 mg Capsule 125 mg PO Q6H Qty: 40 0RF potassium chloride 10 mEq capsule, extended release 10 meq PO DAILY Qty: 4 0RF sucralfate 100 mg/mL Suspension 1 g PO BID Qty: 50 0RF Continued ondansetron 4 mg tablet,disintegrating 4 mg PO Q8H PRN (Reason: nausea and vomiting) Qty: 20 0RF benzonatate 200 mg capsule 200 mg PO TID PRN (Reason: cough) Qty: 20 0RF trazodone 100 mg tablet 50 mg PO BEDTIME PRN (Reason: Insomnia) pantoprazole 40 mg tablet,delayed release (DR/EC) 40 mg PO DAILY@0630 folic acid 1 mg tablet 1 mg PO DAILY cholecalciferol (vitamin D3) 50 mcg (2,000 unit) tablet 50 mcg PO DAILY clonidine HCl 0.1 mg tablet 0.1 mg PO TID PRN (Reason: Anxiety) citalopram 40 mg tablet 40 mg PO DAILY cyanocobalamin (vitamin B-12) 1,000 mcg tablet 1,000 mcg PO DAILY magnesium oxide 400 mg (241.3 mg magnesium) tablet 400 mg PO BID Qty: 60 0RF amlodipine 5 mg Tablet 5 mg PO DAILY Qty: 90 0RF Protocol: Hold for SBP< HOLD for SBP < : 90 losartan 50 mg tablet 50 mg PO DAILY thiamine HCl (vitamin B1) 100 mg tablet 100 mg PO DAILY Discharge Orders: Discharge Order (Routine); Ordered 10/01/24 Ordered By: Luis Carlos Browning Diet: Advance to usual diet Activity on Discharge: As tolerated Stand Alone Forms: Patient Portal Discharge page Print Language: Japanese Care Plan Goals: 49-year-old female who was admitted to the hospital because of alcohol withdrawal, electrolyte abnormalities and abdominal pain with diarrhea: Patient was treated with phenobarb protocol, aggressive electrolyte replacement and monitoring, in addition her stool studies came out to be possible C diff started on vanco-diarrhea improving as well as abdominal pain. HIDA scan was done which is negative. Patient will be going home with p.o. vanco 125 mg po qid for 10 days . elevated lfts-likely in the setting of alcohol use, improving, monitor LFT outpatient and further management as per PCP. Patient was strongly advised to abstain from alcohol. Electrolytic abnormalities improved, will give limited supply potassium 10 mEq daily for 4 more days. Repeat BMP outpatient in 1 week. Health Concerns: as above. If diarrhea or abdominal pain worsen or new fever please go to nearest emergency room. Plan of Treatment: p.o. vanco 125 mg po qid for 10 days . moniter bmp . Assessment: as above. Patient Instructions: C. Diff (Clostridioides Difficile) Infection (DC), Abdominal Pain (ED)
== END 2024-10-01 14:01 | disposition home or self-care (01) | DRG 241 ==
LOC: HO.ED 09-26 00:42 → HO.EDOVER 09-26 01:32 → HO.IMC 09-26 17:11
PROVIDERS: Registered Nurse Emergency; Admitting Provider Internal Medicine; Emergency Provider Emergency Medicine; PCP Internal Medicine; Visit Provider Internal Medicine
DX: K29.20 Alcoholic gastritis without bleeding (principal); A04.72 Enterocolitis due to Clostridium difficile, not specified as recurrent; D69.59 Other secondary thrombocytopenia; F10.239 Alcohol dependence with withdrawal, unspecified; F17.210 Nicotine dependence, cigarettes, uncomplicated; E83.42 Hypomagnesemia; I10 Essential (primary) hypertension; E87.6 Hypokalemia; Z71.6 Tobacco abuse counseling; Z79.899 Other long term (current) drug therapy
CPT/HCPCS: 0241U; 36415; 70450; 70486; 71045; 74177; 76705; 78227; 80048; 80053; 80076; 80307; 81003; 82140; 82150; 82248; 82550; 83690; 83735; 84484; 85025; 85610; 87324; 87493; 87507; 93005; 93970; 99285; A9537; J1200; J1650; J2060; J2405; J2470; J2560; J3411; J3475; J3480; Q9967

== ENCOUNTER → 2024-09-25 20:07 | Outpatient (BNV) | payer OTHER, SELFPAY | PROVIDERS: Admitting Provider Internal Medicine; Emergency Provider Emergency Medicine; PCP Internal Medicine; Visit Provider Internal Medicine | DX: R00.0 Tachycardia, unspecified (principal) | CPT/HCPCS: 93010 ==

== ENCOUNTER → 2024-09-26 01:26 | Outpatient (BNV) | payer OTHER, SELFPAY | PROVIDERS: Admitting Provider Internal Medicine; Emergency Provider Emergency Medicine; PCP Internal Medicine; Visit Provider Internal Medicine | DX: R19.7 Diarrhea, unspecified (principal); E87.6 Hypokalemia; R10.9 Unspecified abdominal pain | CPT/HCPCS: 99223; 99231; 99232; 99239; 99499 ==

== ENCOUNTER → 2024-09-26 01:26 | Outpatient (BNV) | payer OTHER, SELFPAY | PROVIDERS: Admitting Provider Internal Medicine; Emergency Provider Emergency Medicine; PCP Internal Medicine; Visit Provider Surgery | DX: R10.9 Unspecified abdominal pain (principal); R11.10 Vomiting, unspecified | CPT/HCPCS: 99222 ==

== ENCOUNTER 2024-10-12 11:35 | Emergency (ER) | payer OTHER, SELFPAY ==
--- NOTE | 2024-10-12 11:48 | ED_ITS ---
HPI - General Adult General Chief complaint: Recheck/Abnormal Lab/Rx Stated complaint: Abnormal labs Time Seen by Provider: 10/12/24 12:43 Source: patient and old records reviewed Mode of arrival: ambulatory Limitations: no limitations History of Present Illness ED Provider: JORGE A GALDAMEZ narrative: 49 yo female with PMH of ETOH abuse, mood disorder, hypomagnesemia, here with c/o recent n/v/d which happens frequently in setting of continued ETOH use disorder though she does drink less. No trauma, has baseline intermittent abdominal pain, no fevers, no GIB reported came today after her PCP told her on routine labs Sunday were low though I do not see them in the system she states her K and magnesium were low. She came in today to get them repleted. She does take magnesium at home. She states she is not in ETOH withdrawal MD complaint: abnormal lab Onset (ago): day(s) (2) Radiation: non-radiation Severity: moderate Relieving factors: none Exacerbating factors: none Associated symptoms: malaise, nausea/vomiting and other (diarrhea, intermittent abdominal pain) Treatments prior to arrival: none Related Data Home Medications ?Medication ?Instructions ?Recorded ?Confirmed cholecalciferol (vitamin D3) 50 50 mcg PO DAILY 11/01/23 09/26/24 mcg (2,000 unit) tablet folic acid 1 mg tablet 1 mg PO DAILY 11/01/23 09/26/24 pantoprazole 40 mg tablet,delayed 40 mg PO DAILY@0630 11/01/23 09/26/24 release trazodone 100 mg tablet 50 mg PO BEDTIME PRN Insomnia 11/01/23 09/26/24 clonidine HCl 0.1 mg tablet 0.1 mg PO TID PRN Anxiety 12/10/23 09/26/24 citalopram 40 mg tablet 40 mg PO DAILY 02/26/24 09/26/24 cyanocobalamin (vitamin B-12) 1,000 mcg PO DAILY 02/26/24 09/26/24 1,000 mcg tablet losartan 50 mg tablet 50 mg PO DAILY 09/26/24 09/26/24 thiamine HCl (vitamin B1) 100 mg 100 mg PO DAILY 09/26/24 09/26/24 tablet Previous Rx's ?Medication ?Instructions ?Recorded magnesium oxide 400 mg (241.3 mg 400 mg PO BID #60 tabs 02/29/24 magnesium) tablet ondansetron 4 mg disintegrating 4 mg PO Q8H PRN nausea and 05/09/24 tablet vomiting #20 tabs benzonatate 200 mg capsule 200 mg PO TID PRN cough #20 caps 05/24/24 amlodipine 5 mg tablet 5 mg PO DAILY #90 tabs 06/11/24 potassium chloride 10 mEq 10 meq PO DAILY #4 caps 10/01/24 capsule,extended release sucralfate 100 mg/mL oral 1 g (10 mL) PO BID #50 mL 10/01/24 suspension vancomycin 125 mg capsule 125 mg PO Q6H #40 caps 10/01/24 naltrexone 50 mg tablet 50 mg PO DAILY #90 tabs 10/07/24 potassium chloride 10 mEq 10 meq PO DAILY #20 caps 10/12/24 capsule,extended release Allergies Allergy/AdvReac Type Severity Reaction Status Date / Time No Known Allergies Allergy Verified 10/12/24 11:51 Review of Systems 2 Review of Systems: Constitutional : No Weight loss, No Fever, No Chills ENT/Mouth : No sore throat, No Rhinorrhea Eyes: No Swelling, No Redness Cardiovascular : No Chest Pain, No SOB, NoEdema Respiratory : No Cough, No Sputum, No Wheezing Gastrointestinal : Positive Nausea, Positive Vomiting, positive Diarrhea, positive abdominal Pain, No Hematochezia, No Melena Genitourinary : No Dysuria, No Urinary Frequency, No Hematuria, No Urgency Musculoskeletal : No joint pain, No Myalgias, No Joint Swelling Skin : No Skin Lesions, No rash Neuro : No Weakness, No Numbness, No Dizziness, No Headache All other systems reviewed and are negative. [facility] Past Medical History Attestation statement: The following information was validated with the patient. Source: old records reviewed Medical History Clostridium difficile colitis Hypertension Alcohol use disorder, severe, dependence Alcohol use disorder Pancreatic insufficiency Gastroesophageal reflux disease Essential hypertension Mood disorder Cannabis use disorder Hepatitis C Tobacco use disorder Surgical History H/O colonoscopy (~01/2023) Social History Social History Household Members: Children Household Members Other:: Adult son Housing: House Do you presently have visiting nurse or other home services: No Alcohol intake: current Alcohol intake frequency: 3 or more drinks per day Alcohol type: hard liquor Comment: Pt refusing alarms, steady gait Patient Tobacco Use Status: Current everyday Tobacco user Tobacco use type: Cigarette Cigarettes Per Day: 9 Smoked in Last 30 Days: No e-Cigarette/Vaping Use: Currently Using Second Hand Smoke Exposure: No Use of substances other than those prescribed or required for medical reasons: No Substance Use Type: Crack/Cocaine and Marijuana Advance Directives: Yes Advance Directives on File: Yes Advance Directives Date on File: 12/10/23 Do you have a plan to hurt others: No Plan Patient : No service: No Physical Exam ED Vital Signs: Vital Signs - 24 hr 10/12/24 11:49 Temperature 97.9 F Pulse Rate 110 H Respiratory Rate 18 Blood Pressure 123/70 Pulse Oximetry 95 Oxygen Delivery Method Room Air BMI result Body Mass Index 20.6 Appearance: Alert. Oriented X3. No acute distress. Eyes: Pupils equal, round and reactive to light. ENT: Pharynx mild dry mouth no fasciculations Neck: Normal inspection. Neck supple. CVS: Normal heart rate and rhythm. Pulses normal. Respiratory: No respiratory distress. Breath sounds normal. Abdomen: Soft and mild epigastric ttp no rebound Skin: Skin warm and dry. Normal skin color. Normal skin turgor. Extremities: No lower extremity edema. No calf ttp Neuro: Oriented X 3. No motor deficit. No sensory deficit. no tremors Course Course Course Narrative: This is an RME performed by Harry Noriega CNP: Additional HPI, ROS, PE not included below will be deferred to primary provider. patient is a 49-year-old female who presents emergency department for evaluation. she reports that she saw her primary care doctor Ayala Patton through [place] on Sunday for hospital follow-up (discharge from [facility] 10/01), she was called Sunday night and was advised that her potassium and magnesium were very low and was advised to go to the emergency department. She states that she has been experiencing diarrhea, is feeling quite unwell at this point which prompted her coming to emergency department at this time plan: Serum labs, EKG Medications Administered Generic Name Dose Route Start Last Admin Trade Name Freq PRN Reason Stop Dose Admin Magnesium Sulfate 2 gm in 50 mls @ 25 mls/hr 10/12/24 12:33 10/12/24 13:10 Magnesium Sulfate/H2o IV 10/12/24 14:32 25 mls/hr ONCE ONE Administration Discontinued Medications Generic Name Dose Route Start Last Admin Trade Name Aminah PRN Reason Stop Dose Admin Famotidine 20 mg 10/12/24 12:57 10/12/24 13:07 Famotidine/Pf 20 Mg/2 Ml Vial IVPUSH 10/12/24 12:58 20 mg ONCE ONE Administration Thiamine HCl 200 mg/ Sodium 102 mls @ 204 mls/hr 10/12/24 12:43 10/12/24 13:06 Chloride IV 10/12/24 13:12 Infused ONCE ONE Infusion Ondansetron HCl 4 mg 10/12/24 12:57 10/12/24 13:07 Ondansetron Hcl 4 Mg/2 Ml Vial IVPUSH 10/12/24 12:58 4 mg ONCE ONE Administration Medical Decision Making Medical Decision Making MDM Narrative: 49 yo female with PMH of ETOH abuse, mood disorder, hypomagnesemia, here with c/o abnormal lytes on Sunday came today to get them checked out she has mild upper abdominal pain which she states is not abnormal, intermittent n/v/d in setting of continued vomiting. At this time repeat labs, IVF, zofran, thiamine and empiric magnesium Differential Diagnosis Differential Diagnoses: The differential diagnosis associated with the presentation includes chronic lyte abnormality, ETOH use disorder, dehydration, gastritis, pancreatitis Admission/Observation Consideration of admission/observation: Escalation of care including admission/observation considered labs repleted states she feels much better Lab Data [facility] Lab Attestation statement: I reviewed the patient's lab results. K normal mag 1.5 10/12/24 12:07 10/12/24 12:07 Labs: Lab Results 10/12/24 Range/Units 12:07 WBC 7.3 (4.8-10.8) X10*3/uL RBC 3.87 L (4.20-5.50) X10*6/uL Hgb 13.6 (12.0-16.0) g/dl Hct 38.9 (37.0-47.0) % MCV 100.5 H (80.0-98.0) fL MCH 35.1 H (27.0-33.0) pg MCHC 35.0 (31.0-35.0) g/dl RDW 14.0 (11.0-16.0) % Plt Count 290 D (160-400) X10*3/uL MPV 9.3 L (9.4-12.3) fL Immature Gran % (Auto) 0.3 (0.0-0.4) % Neut % (Auto) 55.7 (45-73) % Lymph % (Auto) 35.7 (20-40) % Wirt % (Auto) 4.3 (2-11) % Eos % (Auto) 2.5 (0-4) % Baso % (Auto) 1.5 (0-2) % Lymph # (Auto) 2.6 (1.2-4.9) X10*3/uL Wirt # (Auto) 0.3 (0.1-1.2) X10*3/uL Eos # (Auto) 0.2 (0.0-0.4) X10*3/uL Baso # (Auto) 0.1 (0.0-0.2) X10*3/uL Abs Immat Gran (auto) 0.02 (0.00-0.03) X10*3/uL Absolute Neuts (auto) 4.0 (2.0-8.3) x10*3/uL Absolute Nucleated RBC 0.000 (0.0-0.012) X10*3/uL Nucleated RBC % (auto) 0.0 (0.0-0.2) /100WBC Sodium 142 (135-145) mmol/L Potassium 3.8 (3.3-5.1) mmol/L Chloride 104 (96-108) mmol/L Carbon Dioxide 26 (22-29) mmol/L Anion Gap 16 (12-20) BUN 11 (9-16) mg/dL Creatinine 0.71 (0.5-1.4) mg/dL Estim Creat Clear Calc 75.0 Estimated GFR > 60 Random Glucose 83 (60-115) mg/dL Calcium 9.3 (8.4-10.2) mg/dL Magnesium 1.5 L (1.6-2.6) mg/dL Total Bilirubin 0.4 (0.0-1.0) mg/dL AST 108 H (5-31) U/L ALT 80 H (0-31) U/L Alkaline Phosphatase 167 H (39-117) U/L Total Protein 7.7 (6.5-8.0) g/dL Albumin 4.3 (3.5-5.0) g/dL Lipase 14 (8-78) U/L Independent Interpretation I performed an independent interpretation of an: EKG Interpretation: Rate: 98 Rhythm: NSR [place]: normal Normal P waves. Normal OG. Normal QRS complex. ST T wave : inverted t wave V1, flat t waves aVL qTC: 469 prior studies: no acute ischemia The study has been interpreted contemporaneously by me. . Independent Historian Clinical information obtained from an independent historian. History obtained from or confirmed by: Spouse External Record Review External record reviewed: Inpatient record, Outpatient record and Prior outpatient labs Prescription Management I considered prescription management with: Other Critical Care Time Critical Care Time Critical Care Time: Yes Total Critical Care Time: 35 Attestation: review of records, discussion, IV magnesium for hypomagnesemia I attest to this time spent taking care of the patient Discharge Plan Discharge Clinical Impression: Hypomagnesemia Nausea & vomiting Qualifiers: Vomiting type: unspecified Qualified Code(s): R11.2 - Nausea with vomiting, unspecified Alcohol dependence Qualifiers: Substance use status: unspecified alcohol-induced disorder Qualified Code(s): F 10.29 - Alcohol dependence with unspecified alcohol-induced disorder Patient Disposition: Home, Self-Care Instructions: Abuse of Alcohol (ED), Acute Nausea and Vomiting (ED), Hypomagnesemia (ED) Additional Instructions: stay hydrated, continue to eat well try to avoid alcohol take all of your medications as prescribed. return for any fevers, bleeding, worsening pain or any other concerns. Prescriptions: New potassium chloride 10 mEq capsule, extended release 10 meq PO DAILY Qty: 20 0RF No Action naltrexone 50 mg tablet 50 mg PO DAILY Qty: 90 0RF ondansetron 4 mg tablet,disintegrating 4 mg PO Q8H PRN (Reason: nausea and vomiting) Qty: 20 0RF benzonatate 200 mg capsule 200 mg PO TID PRN (Reason: cough) Qty: 20 0RF trazodone 100 mg tablet 50 mg PO BEDTIME PRN (Reason: Insomnia) pantoprazole 40 mg tablet,delayed release (DR/EC) 40 mg PO DAILY@0630 folic acid 1 mg tablet 1 mg PO DAILY cholecalciferol (vitamin D3) 50 mcg (2,000 unit) tablet 50 mcg PO DAILY clonidine HCl 0.1 mg tablet 0.1 mg PO TID PRN (Reason: Anxiety) citalopram 40 mg tablet 40 mg PO DAILY cyanocobalamin (vitamin B-12) 1,000 mcg tablet 1,000 mcg PO DAILY magnesium oxide 400 mg (241.3 mg magnesium) tablet 400 mg PO BID Qty: 60 0RF amlodipine 5 mg Tablet 5 mg PO DAILY Qty: 90 0RF Protocol: Hold for SBP< HOLD for SBP < : 90 losartan 50 mg tablet 50 mg PO DAILY thiamine HCl (vitamin B1) 100 mg tablet 100 mg PO DAILY vancomycin 125 mg Capsule 125 mg PO Q6H Qty: 40 0RF potassium chloride 10 mEq capsule, extended release 10 meq PO DAILY Qty: 4 0RF sucralfate 100 mg/mL Suspension 1 g PO BID Qty: 50 0RF Print Language: [place]
[2024-10-12 11:49] VITALS: BP 123/70; PULSE 110; RESP 18; TEMP 36.6; O2SAT 95; BMI 20.6
--- NOTE | 2024-10-12 11:51 | ECG_ITS ---
Test Reason : hypokalemia Blood Pressure : / mmHG Vent. Rate : 098 BPM Atrial Rate : 098 BPM P-R Int : 136 ms QRS Dur : 086 ms QT Int : 368 ms P-R-T Axes : 065 041 048 degrees QTc Int : 469 ms Normal sinus rhythm Normal ECG When compared with ECG of 25-SEP-2024 20:03, No significant change was found Referred By: Goldie Noriega Electronically Signed By:MIKA JENNINGS
[2024-10-12 12:12] LABS: MANUAL DIFF FLAG NO
[2024-10-12 12:17] LABS: Basophils Absolute Auto 0.1 X10*3/uL (0.0-0.2); Basophils Percent Auto 1.5 % (0-2); Eosinophils Absolute Auto 0.2 X10*3/uL (0.0-0.4); Eosinophils Percent Auto 2.5 % (0-4); Hematocrit 38.9 % (37.0-47.0); Hemoglobin 13.6 g/dl (12.0-16.0); Imm Gran Abs Auto 0.02 X10*3/uL (0.00-0.03); Imm Gran Pct Auto 0.3 % (0.0-0.4); Lymphocytes Absolute Auto 2.6 X10*3/uL (1.2-4.9); Lymphocytes Percent Auto 35.7 % (20-40); Mean Corpuscular Hemoglobin 35.1 pg (27.0-33.0); Mean Corpuscular Volume 100.5 fL (80.0-98.0); Mean Platelet Volume 9.3 fL (9.4-12.3); Monocytes Absolute Auto 0.3 X10*3/uL (0.1-1.2); Monocytes Percent Auto 4.3 % (2-11); Neutrophils Percent Auto 55.7 % (45-73); Red Blood Count 3.87 X10*6/uL (4.20-5.50); White Blood Count 7.3 X10*3/uL (4.8-10.8)
[2024-10-12 12:26] LABS: Alanine Aminotransferase 80 U/L (0-31); Albumin Level 4.3 g/dL (3.5-5.0); Alkaline Phosphatase 167 U/L (39-117); Anion Gap 16 (12-20); Aspartate Amino Transferase 108 U/L (5-31); Bilirubin Total 0.4 mg/dL (0.0-1.0); Blood Urea Nitrogen 11 mg/dL (9-16); Calcium 9.3 mg/dL (8.4-10.2); Carbon Dioxide 26 mmol/L (22-29); Chloride 104 mmol/L (96-108); Estimated Glomerular Filt Rate > 60; Glucose Random 83 mg/dL (60-115); Lipase 14 U/L (8-78); Magnesium 1.5 mg/dL (1.6-2.6); Potassium 3.8 mmol/L (3.3-5.1); Sodium 142 mmol/L (135-145); Total Protein 7.7 g/dL (6.5-8.0)
[2024-10-12 12:27] LABS: Platelet Count 290 X10*3/uL (160-400)
[2024-10-12] MEDS: Thiamine HCL 200 MG in 0.9 % Sodium Chloride 100 ML 204 MG IV (12:56)
[2024-10-12] MEDS: ondansetron HCL 4 MG/2 ML VIAL IVPUSH (13:07)
[2024-10-12] MEDS: Famotidine/PF 20 MG/2 ML VIAL IVPUSH (13:07)
[2024-10-12] MEDS: Magnesium Sulfate/H2O 2 GM/50 ML PIGGYBACK IV (13:10)
--- NOTE | 2024-10-12 13:41 | PC.NURSE ---
Pt comes to ED today for care in relation to reported low magnesium by her PCP. A&Ox3, VSS, afebrile. Skin is warm and dry Breaths and speech are even and unlabored. Facial symmetry noted. Pt c/o cramping/pain to bilat lower legs and abd. Mag level 1.5 20g to RAC Pt medicated per DEC.
[2024-10-12 14:56] VITALS: BP 116/75; PULSE 83; RESP 16; TEMP 36.8; O2SAT 96
[2024-10-12 15:13] VITALS: BP 116/75; PULSE 83; RESP 16; TEMP 36.8; O2SAT 96
== END 2024-10-12 15:14 | disposition home or self-care (01) ==
PROVIDERS: Nurse Practitioner Family; Emergency Provider Emergency Medicine; PCP Internal Medicine
DX: E83.42 Hypomagnesemia (principal); R79.89 Other specified abnormal findings of blood chemistry; F10.29 Alcohol dependence with unspecified alcohol-induced disorder; Y90.9 Presence of alcohol in blood, level not specified; R11.2 Nausea with vomiting, unspecified; R10.9 Unspecified abdominal pain; R53.81 Other malaise; R19.7 Diarrhea, unspecified; Z79.899 Other long term (current) drug therapy; Z71.41 Alcohol abuse counseling and surveillance of alcoholic
CPT/HCPCS: 36415; 80053; 83690; 83735; 85025; 93005; 96365; 96367; 96375; 99284; 99285; J2405; J3411; J3475

== ENCOUNTER → 2024-10-12 11:51 | Outpatient (BNV) | payer OTHER, SELFPAY | PROVIDERS: Emergency Provider Emergency Medicine; PCP Internal Medicine; Visit Provider Internal Medicine | DX: E87.6 Hypokalemia (principal) | CPT/HCPCS: 93010 ==

== ENCOUNTER 2024-10-27 09:17 | Inpatient (IN) | payer OTHER, SELFPAY ==
--- NOTE | ~2024-10-27 | CT_ITS ---
EXAMINATION: CT ABDOMEN AND PELVIS WITH CONTRAST CLINICAL INFORMATION: Diffuse, severe abdominal pain COMPARISON: None available. TECHNIQUE: Multidetector volumetric images were obtained from the superior aspect of the liver through the pubic symphysis following administration 85 mL of Omnipaque 350 intravenous contrast. Sagittal and coronal reformatted images were obtained on the technologist's workstation. Oral contrast: No This CT examination was performed using dose optimization techniques as appropriate, variously including the following: *Automated exposure control *Adjustment of mA and/or kV according to patient size (this includes techniques or standardized protocols for targeted exams where dose is matched to indication/reason for exam; i.e. extremities or head) *Use of iterative reconstruction technique DLP: 299 mGy-cm FINDINGS: LUNG BASES: There is dependent bibasilar atelectasis. LIVER, GALLBLADDER, AND BILIARY TREE: The liver is normal in size, shape, and attenuation. No focal hepatic lesion or biliary ductal dilatation is present. The gallbladder is unremarkable with no evidence of radiopaque gallstones, gallbladder wall thickening, or obvious pericholecystic inflammatory changes. PANCREAS: Unremarkable. SPLEEN: Unremarkable. ADRENAL GLANDS: Unremarkable. KIDNEYS AND URETERS: The kidneys are normal in size, shape, and attenuation. No hydronephrosis, hydroureter, or calculi seen. No perinephric stranding. BLADDER: Unremarkable. GASTROINTESTINAL TRACT: There is scattered stool, gas and diverticuli in colon without diverticulitis is mild mural thickening involving the sigmoid and and rest of colon but no pericolic fat stranding seen. Findings are suspicious for inflammatory or infectious colitis. There is nonspecific mild submucosal fat deposits in the cecum and ascending colon, a nonspecific finding. There is mild fat stranding surrounding the duodenum with mural thickening and the head of the pancreas suggestive of inflammatory process. There is no free air or free fluid seen. ABDOMINAL WALL: No significant hernia is appreciated. LYMPH NODES: Normal. VASCULAR: Unremarkable. PELVIC VISCERA: The uterus is midline with an IUD located within the endometrial canal. No adnexal mass or free fluid seen. OSSEOUS STRUCTURES: No aggressive lytic or sclerotic process seen. There is left L5-S1 facet joint arthropathy and hypertrophy. CT/CT abdomen pelvis w IV con IMPRESSION: Colonic mural thickening likely colitis from inflammatory infectious etiology. No obstruction seen. Submucosal fatty deposits in ascending colon and cecum, a nonspecific finding. Mild fat stranding surrounding the C-loop and head of the pancreas with mild mural thickening of the C-loop. Question duodenal inflammatory process versus pancreatitis. Correlate with serum lipase. Small pancreatic lesion, new since the previous study. Recommend follow-up. Fleischner guidelines were followed. Electronically signed by: Yaw Jimenez MD 10/27/2024 02:04 PM EST
[2024-10-27 09:28] VITALS: BP 137/77; PULSE 85; RESP 20; TEMP 36.7; O2SAT 96; BMI 21.0
[2024-10-27] MEDS: Ondansetron ODT 4 MG TAB.RAPDIS TRANSLINGU (09:32)
[2024-10-27 10:01] LABS: MANUAL DIFF FLAG NO
[2024-10-27 10:06] LABS: Basophils Absolute Auto 0.1 X10*3/uL (0.0-0.2); Basophils Percent Auto 0.9 % (0-2); Eosinophils Absolute Auto 0.1 X10*3/uL (0.0-0.4); Eosinophils Percent Auto 1.6 % (0-4); Hematocrit 34.3 % (37.0-47.0); Hemoglobin 12.4 g/dl (12.0-16.0); Imm Gran Abs Auto 0.03 X10*3/uL (0.00-0.03); Imm Gran Pct Auto 0.5 % (0.0-0.4); Lymphocytes Absolute Auto 1.5 X10*3/uL (1.2-4.9); Lymphocytes Percent Auto 27.7 % (20-40); Mean Corpuscular HGB Conc 36.2 g/dl (31.0-35.0); Mean Corpuscular Hemoglobin 35.4 pg (27.0-33.0); Mean Platelet Volume 10.2 fL (9.4-12.3); Monocytes Absolute Auto 0.4 X10*3/uL (0.1-1.2); Monocytes Percent Auto 6.4 % (2-11); Neutrophils Absolute Auto 3.4 x10*3/uL (2.0-8.3); Neutrophils Percent Auto 62.9 % (45-73); Platelet Count 120 X10*3/uL (160-400); Red Cell Distribution Width 14.8 % (11.0-16.0); White Blood Count 5.5 X10*3/uL (4.8-10.8)
--- NOTE | 2024-10-27 10:14 | ED_ITS ---
HPI - General Adult General Chief complaint: Abdominal Pain Stated complaint: Gallbladder Attack Time Seen by Provider: 10/27/24 10:13 Source: patient Mode of arrival: ambulatory Limitations: no limitations History of Present Illness ED Provider: Tamy Spivey PA-C HPI narrative: Patient is a 49 year old assigned female at with a history of alcohol use disorder (last drink 0130 today), HTN, and mood disorder presenting to the emergency department today with abdominal pain, nausea, and vomiting. Patient states that over the last few hours she has had significant abdominal pain, nausea, and vomiting. Patient denies any dizziness, lightheadedness, fever, chills, blurry vision, double vision, loss of vision, chest pain, difficulty breathing, shortness of breath, back pain, night sweats, pain with urination, increased urinary frequency, increased urinary urgency, blood in her urine or stool, syncope or a near syncopal episode, recent trauma or falls, bowel incontinence, bladder incontinence, or any other complaints at this time. Onset (ago): hour(s) Location: abdomen Relieving factors: none Exacerbating factors: none Associated symptoms: nausea/vomiting Treatments prior to arrival: none Related Data Home Medications ?Medication ?Instructions ?Recorded ?Confirmed cholecalciferol (vitamin D3) 50 50 mcg PO DAILY 11/01/23 09/26/24 mcg (2,000 unit) tablet folic acid 1 mg tablet 1 mg PO DAILY 11/01/23 09/26/24 pantoprazole 40 mg tablet,delayed 40 mg PO DAILY@0630 11/01/23 09/26/24 release clonidine HCl 0.1 mg tablet 0.1 mg PO TID PRN Anxiety 12/10/23 09/26/24 citalopram 40 mg tablet 40 mg PO DAILY 02/26/24 09/26/24 cyanocobalamin (vitamin B-12) 1,000 mcg PO DAILY 02/26/24 09/26/24 1,000 mcg tablet losartan 50 mg tablet 50 mg PO DAILY 09/26/24 09/26/24 thiamine HCl (vitamin B1) 100 mg 100 mg PO DAILY 09/26/24 09/26/24 tablet sucralfate 100 mg/mL oral 10 ml PO QID 10/27/24 suspension trazodone 100 mg tablet 100 mg PO BEDTIME PRN insomnia 10/27/24 Previous Rx's ?Medication ?Instructions ?Recorded magnesium oxide 400 mg (241.3 mg 400 mg PO BID #60 tabs 02/29/24 magnesium) tablet ondansetron 4 mg disintegrating 4 mg PO Q8H PRN nausea and 05/09/24 tablet vomiting #20 tabs amlodipine 5 mg tablet 5 mg PO DAILY #90 tabs 06/11/24 vancomycin 125 mg capsule 125 mg PO Q6H #40 caps 10/01/24 naltrexone 50 mg tablet 50 mg PO DAILY #90 tabs 10/07/24 potassium chloride 10 mEq 10 meq PO DAILY #20 caps 10/12/24 capsule,extended release Allergies Allergy/AdvReac Type Severity Reaction Status Date / Time No Known Allergies Allergy Verified 10/27/24 09:29 Review of Systems 2 Constitutional: Constitutional: Reports no additional constitutional complaints, Denies chills, Denies fever(s) and Denies night sweats Eyes: Eyes: Reports no additional eye complaints, Denies blurry vision, Denies change in vision, Denies diplopia, Denies eye discharge, Denies loss of vision and Denies eye pain ENT: Denies dizziness Cardiovascular: Cardiovascular: Reports no additional cardiovascular complaints, Denies chest pain, Denies lightheadedness, Denies Loss of Consciousness and Denies dyspnea Respiratory: Respiratory: Reports no additional respiratory complaints and Denies dyspnea Gastrointestinal: Gastrointestinal: Reports no additional gastrointestinal complaints, Reports abdominal pain, Denies melena, Denies hematochezia, Denies change in bowel habits, Denies change in stool character, Reports nausea and Reports vomiting Genitourinary: Genitourinary: Denies hematuria, Denies urinary frequency, Denies dysuria, Denies urinary incontinence, Denies urinary hesitancy and Denies urinary urgency Musculoskeletal: Musculoskeletal: Reports no additional musculoskeletal complaints, Denies numbness and Denies tingling Neurologic: Denies dizziness, Denies loss of vision, Denies numbness and Denies tingling Psychiatric: Psychiatric: Reports no additional psychiatric complaints Endocrine: Endocrine: Reports no additional endocrine complaints Hematologic/Lymphatic: Hematologic/Lymphatic: Reports no additional hematologic/lymphatic complaints Allergic/Immunologic: Allergic/Immunologic: Reports no additional allergic/immunologic complaints PMFSH Past Medical History Attestation statement: The following information was validated with the patient. Source: old records reviewed and nursing notes reviewed Medical History Clostridium difficile colitis Hypertension Alcohol use disorder, severe, dependence Alcohol use disorder Pancreatic insufficiency Gastroesophageal reflux disease Essential hypertension Mood disorder Cannabis use disorder Hepatitis C Tobacco use disorder Surgical History H/O colonoscopy (~01/2023) Social History Social History Household Members: Children Household Members Other:: Adult son Housing: House Do you presently have visiting nurse or other home services: No Alcohol intake: current Alcohol intake frequency: 3 or more drinks per day Alcohol type: hard liquor Comment: Pt refusing alarms, steady gait Patient Tobacco Use Status: Current everyday Tobacco user Tobacco use type: Cigarette Cigarettes Per Day: 9 e-Cigarette/Vaping Use: Currently Using Second Hand Smoke Exposure: No Substance Use Type: Crack/Cocaine and Marijuana Advance Directives: Yes Advance Directives on File: Yes Advance Directives Date on File: 12/10/23 service: No Physical Exam ED Vital Signs: Vital Signs - 24 hr 10/27/24 09:28 10/27/24 14:23 Temperature 98.1 F 98.2 F Pulse Rate 85 97 Respiratory Rate 20 16 Blood Pressure 137/77 156/87 H Pulse Oximetry 96 95 Oxygen Delivery Method Room Air Room Air BMI result Body Mass Index 21.0 Const General: cooperative, no acute distress, alert and awake Nutritional Appearance: well nourished Orientation/consciousness: patient oriented x3 Limitations: no limitations [facility] Head: Yes normal to inspection and Yes atraumatic Ears: hearing grossly normal bilaterally and external ears normal General nose exam: Normal external nose present, no nasal discharge noted and no epistaxis Face and sinus: Yes normal facial exam, No abrasion and No laceration Mouth: Normal oral and palatal mucosa present, no drooling and no muffled voice Eyes General: appearance normal, both eyes and all related structures Periorbital: periorbital findings normal Eyelids: Yes eyelids normal Conjunctivae: conjunctivae normal Pupils: Equal, round and reactive pupils present EOM: EOMs intact bilaterally Neck Neck: Yes normal visual inspection, Yes full ROM and Yes no lymphadenopathy Chest Chest palpation & inspection: normal inspection of the chest Resp Effort & Inspection: normal respiratory effort and able to speak in complete sentences GI Inspection: Yes normal to inspection Palpation (GI): Soft to palpation, not firm, Tenderness to palpation present (GI) (diffuse), no guarding and not rigid Neuro General: patient oriented x3 and moves all extremities Cranial nerves: Yes Equal, round and reactive pupils present Cognition (Neuro): normal cognition Extrem General: Yes normal to inspection, Yes full ROM and Yes capillary refill normal Psych Appearance: grossly normal Mental Status: mental status grossly normal Affect: normal affect Attitude: cooperative Thought process: Normal thought process present Thought content: Normal thought content present Insight: Good insight present (Psych) Medications Administered Generic Name Dose Route Start Last Admin Trade Name Freq PRN Reason Stop Dose Admin Ceftriaxone Sodium 2 gm 10/27/24 14:45 10/27/24 15:02 Ceftriaxone Sodium 2 Gm Vial IVPUSH 2 gm Q24H SAMANTHA Administration Enoxaparin Sodium 40 mg 10/27/24 15:00 10/27/24 15:02 Enoxaparin Sodium 40 Mg/0.4 Ml Syringe SUBCUT 40 mg Q24H SAMANTHA Administration Hydromorphone HCl 1 mg 10/27/24 14:34 10/27/24 15:16 Hydromorphone Hcl 0.5 Mg/0.5 Ml Syringe IVPUSH 1 mg Q4H PRN Administration Pain, Severe (Pain Scale 7-10) Protocol Lactated Ringer's 1,000 mls @ 125 mls/hr 10/27/24 14:45 10/27/24 15:04 Lr IVCONT 125 mls/hr .Q8H SAMANTHA Administration Metronidazole 500 mg in 100 mls @ 100 mls/hr 10/27/24 14:45 10/27/24 15:02 Flagyl IV 100 mls/hr Q8H SAMANTHA Administration Discontinued Medications Generic Name Dose Route Start Last Admin Trade Name Freq PRN Reason Stop Dose Admin Hydromorphone HCl 1 mg 10/27/24 10:29 10/27/24 11:05 Hydromorphone Hcl 1 Mg/Ml Syringe IVPUSH 10/27/24 10:30 1 mg ONCE ONE Administration Protocol Hydromorphone HCl 1 mg 10/27/24 13:42 10/27/24 14:13 Hydromorphone Hcl 1 Mg/Ml Syringe IVPUSH 10/27/24 13:43 1 mg ONCE ONE Administration Protocol Potassium Chloride 10 meq in 100 mls @ 100 mls/hr 10/27/24 10:45 10/27/24 14:51 Potassium Chloride/H20 IV 10/27/24 14:44 100 mls/hr Q1H SAMANTHA Administration Magnesium Sulfate 2 gm in 50 mls @ 25 mls/hr 10/27/24 11:01 10/27/24 13:43 Magnesium Sulfate/H2o IV 10/27/24 13:00 Infused ONCE ONE Infusion Sodium Chloride 1,000 mls @ 999 mls/hr 10/27/24 14:15 10/27/24 15:26 Ns IV 10/27/24 15:15 Infused .Q1H1M SAMANTHA Infusion Iohexol 100 ml 10/27/24 11:56 10/27/24 11:56 Iohexol 350 Mg/Ml 100 Ml Infus..Btl IV 10/27/24 11:57 85 ml ONCE ONE Administration Ondansetron HCl 4 mg 10/27/24 09:30 10/27/24 09:32 Ondansetron Odt 4 Mg Tab.Rapdis TRANSLINGU 10/27/24 09:31 4 mg ONCE ONE Administration Ondansetron HCl 4 mg 10/27/24 10:29 10/27/24 11:05 Ondansetron Hcl 4 Mg/2 Ml Vial IVPUSH 10/27/24 10:30 4 mg ONCE ONE Administration Pantoprazole Sodium 40 mg 10/27/24 10:29 10/27/24 11:05 Pantoprazole Sodium 40 Mg/10 Ml Vial IVPUSH 10/27/24 10:30 40 mg ONCE ONE Administration Potassium Chloride 40 meq 10/27/24 14:34 10/27/24 15:02 Potassium Chloride Er 20 Meq Tab.Er.Prt PO 10/27/24 14:35 40 meq ONCE ONE Administration Medical Decision Making Medical Decision Making MDM Narrative: Patient is a 49 year old assigned female at with a history of alcohol use disorder (last drink 129 today), HTN, and mood disorder presenting to the emergency department today with abdominal pain, nausea, and vomiting. Patient's physical exam was as noted in the physical exam portion of this note. Patient's blood work showed hypokalemia at 2.3, hypomagnesemia at 1.0, and pancreatitis with a lipase of 617. Patient's CT abdomen/pelvis showed evidence of colitis and fat stranding around the pancreas with a small pancreatic lesion that is new since the previous study. I spoke to the hospitalist team who agreed to admission. I explained my physical exam findings as well as all test results to the patient. I answered all questions asked by the patient. Patient received multiple doses of IV dilaudid as well as IV fluids which, upon re-evaluation, she stated it helped her symptoms significantly. Patient verbalized agreement and understanding with this treatment plan and admission. Differential Diagnosis Differential Diagnoses: The differential diagnosis associated with the presentation includes Pancreatitis Colitis Abdominal pain Intractable pain Admission/Observation Consideration of admission/observation: Escalation of care including admission/observation considered Patient admitted as noted in the MDM Rationale portion of this note. Consult Healthcare Provider Management of the patient was discussed with: Hospitalist (agreed to admission as noted in the MDM Rationale portion of this note.) Lab Data [facility] Lab Attestation statement: I reviewed the patient's lab results. My interpretation of these results are in the MDM Rationale portion of this note. 10/27/24 09:57 10/27/24 14:55 Labs: Lab Results 10/27/24 Range/Units 09:57 WBC 5.5 (4.8-10.8) X10*3/uL RBC 3.50 L (4.20-5.50) X10*6/uL Hgb 12.4 (12.0-16.0) g/dl Hct 34.3 L (37.0-47.0) % MCV 98.0 (80.0-98.0) fL MCH 35.4 H (27.0-33.0) pg MCHC 36.2 H (31.0-35.0) g/dl RDW 14.8 (11.0-16.0) % Plt Count 120 L D (160-400) X10*3/uL MPV 10.2 (9.4-12.3) fL Immature Gran % (Auto) 0.5 H (0.0-0.4) % Neut % (Auto) 62.9 (45-73) % Lymph % (Auto) 27.7 (20-40) % [place] % (Auto) 6.4 (2-11) % Eos % (Auto) 1.6 (0-4) % Baso % (Auto) 0.9 (0-2) % Lymph # (Auto) 1.5 (1.2-4.9) X10*3/uL [place] # (Auto) 0.4 (0.1-1.2) X10*3/uL Eos # (Auto) 0.1 (0.0-0.4) X10*3/uL Baso # (Auto) 0.1 (0.0-0.2) X10*3/uL Abs Immat Gran (auto) 0.03 (0.00-0.03) X10*3/uL Absolute Neuts (auto) 3.4 (2.0-8.3) x10*3/uL Absolute Nucleated RBC 0.000 (0.0-0.012) X10*3/uL Nucleated RBC % (auto) 0.0 (0.0-0.2) /100WBC Sodium 142 (135-145) mmol/L Potassium 2.3 L* D (3.3-5.1) mmol/L Chloride 106 (96-108) mmol/L Carbon Dioxide 24 (22-29) mmol/L Anion Gap 14 (12-20) BUN 5 L (9-16) mg/dL Creatinine 0.57 (0.5-1.4) mg/dL Estim Creat Clear Calc 93.3 Estimated GFR > 60 Random Glucose 147 H (60-115) mg/dL Calcium 9.3 (8.4-10.2) mg/dL Magnesium 1.0 L* (1.6-2.6) mg/dL Total Bilirubin 0.5 (0.0-1.0) mg/dL AST 79 H (5-31) U/L ALT 27 (0-31) U/L Alkaline Phosphatase 159 H (39-117) U/L Total Protein 6.8 (6.5-8.0) g/dL Albumin 3.9 (3.5-5.0) g/dL Lipase 617 H (8-78) U/L Independent Interpretation I performed an independent interpretation of an: CT Scan Interpretation: My interpretation is in agreement with the radiologist's impression of this imaging study. L Report Number: [id number]: Total DLP = 299.00 mGy-cm EXAMINATION: CT ABDOMEN AND PELVIS WITH CONTRAST CLINICAL INFORMATION: Diffuse, severe abdominal pain COMPARISON: None available. TECHNIQUE: Multidetector volumetric images were obtained from the superior aspect of the liver through the pubic symphysis following administration 85 mL of Omnipaque 350 intravenous contrast. Sagittal and coronal reformatted images were obtained on the technologist's workstation. Oral contrast: No This CT examination was performed using dose optimization techniques as appropriate, variously including the following: *Automated exposure control *Adjustment of mA and/or kV according to patient size (this includes techniques or standardized protocols for targeted exams where dose is matched to indication/reason for exam; i.e. extremities or head) *Use of iterative reconstruction technique DLP: 299 mGy-cm FINDINGS: LUNG BASES: There is dependent bibasilar atelectasis. LIVER, GALLBLADDER, AND BILIARY TREE: The liver is normal in size, shape, and attenuation. No focal hepatic lesion or biliary ductal dilatation is present. The gallbladder is unremarkable with no evidence of radiopaque gallstones, gallbladder wall thickening, or obvious pericholecystic inflammatory changes. PANCREAS: Unremarkable. SPLEEN: Unremarkable. ADRENAL GLANDS: Unremarkable. KIDNEYS AND URETERS: The kidneys are normal in size, shape, and attenuation. No hydronephrosis, hydroureter, or calculi seen. No perinephric stranding. BLADDER: Unremarkable. GASTROINTESTINAL TRACT: There is scattered stool, gas and diverticuli in colon without diverticulitis is mild mural thickening involving the sigmoid and and rest of colon but no pericolic fat stranding seen. Findings are suspicious for inflammatory or infectious colitis. There is nonspecific mild submucosal fat deposits in the cecum and ascending colon, a nonspecific finding. There is mild fat stranding surrounding the duodenum with mural thickening and the head of the pancreas suggestive of inflammatory process. There is no free air or free fluid seen. ABDOMINAL WALL: No significant hernia is appreciated. LYMPH NODES: Normal. VASCULAR: Unremarkable. PELVIC VISCERA: The uterus is midline with an IUD located within the endometrial canal. No adnexal mass or free fluid seen. OSSEOUS STRUCTURES: No aggressive lytic or sclerotic process seen. There is left L5-S1 facet joint arthropathy and hypertrophy. CT/CT abdomen pelvis w IV con IMPRESSION: Colonic mural thickening likely colitis from inflammatory infectious etiology. No obstruction seen. Submucosal fatty deposits in ascending colon and cecum, a nonspecific finding. Mild fat stranding surrounding the C-loop and head of the pancreas with mild mural thickening of the C-loop. Question duodenal inflammatory process versus pancreatitis. Correlate with serum lipase. Small pancreatic lesion, new since the previous study. Recommend follow-up. Fleischner guidelines were followed. Electronically signed by: Yaw Jimenez MD 10/27/2024 02:04 PM EST Dictated By: Yaw Jimenez MD Signed By: Electronically signed by Yaw Jimenez MD 10/27/24 1409 Radiology Impression Discussion of test interpretation with radiology: I have reviewed the radiologist's reading. Critical Care Time Critical Care Time Critical Care Time: Yes Total Critical Care Time: 47 Attestation: I spent 47 minutes of Critical Care Time with this patient. This does not include time spent on separately reported billable procedures. Discharge Plan Discharge Clinical Impression: Pancreatitis, Abdominal pain, Nausea Patient Disposition: Admitted As Inpatient
[2024-10-27 10:26] LABS: Albumin Level 3.9 g/dL (3.5-5.0); Alkaline Phosphatase 159 U/L (39-117); Aspartate Amino Transferase 79 U/L (5-31); Bilirubin Total 0.5 mg/dL (0.0-1.0); Blood Urea Nitrogen 5 mg/dL (9-16); Calcium 9.3 mg/dL (8.4-10.2); Creatinine Clr Calc Pharmacy 93.3; Estimated Glomerular Filt Rate > 60; Glucose Random 147 mg/dL (60-115); Total Protein 6.8 g/dL (6.5-8.0)
[2024-10-27 10:45] LABS: Alanine Aminotransferase 27 U/L (0-31); Anion Gap 14 (12-20); Carbon Dioxide 24 mmol/L (22-29); Chloride 106 mmol/L (96-108); Potassium 2.3 mmol/L (3.3-5.1); Sodium 142 mmol/L (135-145)
[2024-10-27 10:59] LABS: Lipase 617 U/L (8-78)
[2024-10-27] MEDS: Potassium Chloride/H20 10 MEQ/100 ML PIGGYBACK 100 MEQ IV ×4 (11:05→16:20)
[2024-10-27] MEDS: ondansetron HCL 4 MG/2 ML VIAL IVPUSH ×2 (11:05→19:46)
[2024-10-27] MEDS: Pantoprazole Sodium 40 MG/10 ML VIAL IVPUSH (11:05)
[2024-10-27] MEDS: Magnesium Sulfate/H2O 2 GM/50 ML PIGGYBACK IV (11:05)
[2024-10-27] MEDS: HYDROmorphone HCl 1 MG/ML SYRINGE IVPUSH ×2 (11:05→14:13)
[2024-10-27] MEDS: iohexoL 350 MG/ML 100 ML INFUS..BTL IV (11:56)
[2024-10-27] MEDS: 0.9 % Sodium Chloride 1,000 ML 999 ML IV (14:14)
[2024-10-27 14:23] VITALS: BP 156/87; PULSE 97; RESP 16; TEMP 36.8; O2SAT 95
--- NOTE | 2024-10-27 14:43 | PM.IMHP ---
History of Present Illness Date of Service: 10/27/24 Chief Complaint: Abd pain, diarrhea A 49 years old lady with PMH of alcohol abuse, ? alcohol withdrawal seizures, hepatitis-C s/p?outpatient treatment,? pancreatic sufficiency, hypertension, GERD among others presenting to the hospital with 2 days of abdominal pain and diarrhea. The patient reports worsening pain since yesterday associated with nausea, vomiting and diarrhea. pain is all over her abdomen but mainly epigastric area rotating around and radiating back with no relieving factors. last drink last night. In ED found K of 2.3 and Mg of 1. CT scan showed evidence of pancreatitis and colitis. Lipase of 617. Started on Electrolytes replacement , IV fluids and pain medications. Will be admitted for further work up and treatment. Review of Systems Review of Systems: No fever, chills or weakness No chest pain, palpitation No shortness of breath or coughing reporting abdominal pain, nausea and vomiting No urinary symptoms No any rash or wounds PMFSH Medical History Clostridium difficile colitis Hypertension Alcohol use disorder, severe, dependence Alcohol use disorder Pancreatic insufficiency Gastroesophageal reflux disease Essential hypertension Mood disorder Cannabis use disorder Hepatitis C Tobacco use disorder Surgical History H/O colonoscopy (~01/2023) Social History Household Members: Children Household Members Other:: Adult son Housing: House Do you presently have visiting nurse or other home services: No Alcohol intake: current Alcohol intake frequency: 3 or more drinks per day Alcohol type: hard liquor Comment: Pt refusing alarms, steady gait Patient Tobacco Use Status: Current everyday Tobacco user Tobacco use type: Cigarette Cigarettes Per Day: 9 e-Cigarette/Vaping Use: Currently Using Second Hand Smoke Exposure: No Substance Use Type: Crack/Cocaine and Marijuana Advance Directives: Yes Advance Directives on File: Yes Advance Directives Date on File: 12/10/23 service: No Meds Allergies Allergy/AdvReac Type Severity Reaction Status Date / Time No Known Allergies Allergy Verified 10/27/24 09:29 Active Medications: Current Medications Potassium Chloride (Potassium Chloride/H20) 10 meq in 100 mls @ 100 mls/hr IV Q1H SAMANTHA Stop: 10/27/24 14:44 Last Admin: 10/27/24 13:13 Dose: 100 mls/hr Sodium Chloride (Ns) 1,000 mls @ 999 mls/hr IV .Q1H1M SAMANTHA Stop: 10/27/24 15:15 Last Admin: 10/27/24 14:14 Dose: 999 mls/hr Home Medications ?Medication ?Instructions ?Recorded ?Confirmed ?Last Taken ?Type cholecalciferol (vitamin D3) 50 50 mcg PO DAILY 11/01/23 09/26/24 09/25/24 History mcg (2,000 unit) tablet folic acid 1 mg tablet 1 mg PO DAILY 11/01/23 09/26/24 09/25/24 History pantoprazole 40 mg tablet,delayed 40 mg PO DAILY@0630 11/01/23 09/26/24 09/25/24 History release clonidine HCl 0.1 mg tablet 0.1 mg PO TID PRN Anxiety 12/10/23 09/26/24 06/23/24 History citalopram 40 mg tablet 40 mg PO DAILY 02/26/24 09/26/24 09/25/24 History cyanocobalamin (vitamin B-12) 1,000 mcg PO DAILY 02/26/24 09/26/24 09/25/24 History 1,000 mcg tablet losartan 50 mg tablet 50 mg PO DAILY 09/26/24 09/26/24 09/25/24 History thiamine HCl (vitamin B1) 100 mg 100 mg PO DAILY 09/26/24 09/26/24 09/25/24 History tablet sucralfate 100 mg/mL oral 10 ml PO QID 10/27/24 Unknown History suspension trazodone 100 mg tablet 100 mg PO BEDTIME PRN insomnia 10/27/24 Unknown History Physical Exam Vital Signs and Narrative: Vital Signs: Last Vital Signs Temp 98.2 F 10/27/24 14:23 Pulse 97 10/27/24 14:23 Resp 16 10/27/24 14:23 BP 156/87 H 10/27/24 14:23 Pulse Ox 95 10/27/24 14:23 O2 Del Method Room Air 10/27/24 14:23 BMI result Body Mass Index 21.0 Const: Other: Constitutional : Awake, interactive, looks in mild distress Neck : Normal inspection, Supple Cardiovascular : RRR, no JVP, no lower extremity edema Respiratory : good bilateral air entry, no crackles, wheezes or rhonchi Gastrointestinal: soft, lax, decreased bowel sounds, all over tenderness with no surgical signs Skin : Warm, Dry Neurological : Alert & oriented x3, No focal deficit Results Labs 10/27/24 09:57 10/27/24 09:57 Labs: Laboratory Results - last 24 hr 10/27/24 09:57 MCV 98.0 MCH 35.4 H MCHC 36.2 H RDW 14.8 Plt Count 120 L D MPV 10.2 Immature Gran % (Auto) 0.5 H Neut % (Auto) 62.9 Lymph % (Auto) 27.7 [place] % (Auto) 6.4 Eos % (Auto) 1.6 Baso % (Auto) 0.9 Lymph # (Auto) 1.5 [place] # (Auto) 0.4 Eos # (Auto) 0.1 Baso # (Auto) 0.1 Abs Immat Gran (auto) 0.03 Absolute Neuts (auto) 3.4 Absolute Nucleated RBC 0.000 Nucleated RBC % (auto) 0.0 Anion Gap 14 Estim Creat Clear Calc 93.3 Estimated GFR > 60 Random Glucose 147 H Calcium 9.3 Magnesium 1.0 L* Total Bilirubin 0.5 AST 79 H ALT 27 Alkaline Phosphatase 159 H Total Protein 6.8 Albumin 3.9 Lipase 617 H Imaging Radiologist's Impressions: Impressions Abdomen/Pelvis CT 10/27/24 11:49 IMPRESSION: Colonic mural thickening likely colitis from inflammatory infectious etiology. No obstruction seen. Submucosal fatty deposits in ascending colon and cecum, a nonspecific finding. Mild fat stranding surrounding the C-loop and head of the pancreas with mild mural thickening of the C-loop. Question duodenal inflammatory process versus pancreatitis. Correlate with serum lipase. Small pancreatic lesion, new since the previous study. Recommend follow-up. Fleischner guidelines were followed. Electronically signed by: Yaw Jimenez MD 10/27/2024 02:04 PM [facility] Assessment and Plan (1) Nausea: Status: Acute (2) Abdominal pain: Status: Acute (3) Pancreatitis: Status: Acute (4) Hypokalemia: Status: Acute (5) Hypomagnesemia: Status: Acute (6) Alcoholism: Status: Acute Plan A 49 years old lady with PMH of alcohol abuse, ? alcohol withdrawal seizures, hepatitis-C s/p?outpatient treatment,? pancreatic sufficiency, hypertension, GERD among others presenting to the hospital with 2 days of abdominal pain and diarrhea. Acute alcoholic Pancreatitis CT scan as reported, will need a follow up after resolution of inflammation to eval small reported lesion Pain management with Dilaudid IVF advnace diet as tolerated, NPO for now Acute colitis Not septic CT reporting Colonic mural thickening likely colitis from inflammatory infectious etiology. Unclear if bacterial\viral or C.Diff related check c. diff Start Flagyl and Ceftriaxone Keep on PO Vancomycin as prophylaxis alcohol abuse w history of withdrawal and withdrawal seizure on CIWA protocol; addiction medicine consult PHenobarb protocol acute hypomagnesemia give replacement IV and PO follow level Acute Hypokalemia IV and PO replacement follow BMP HTN metoprolol, losartan thrombocytopenia stable hold chemical CVT prophylaxis until PLT > 100; DVT PPx Lovenox The patient will need 2 overnight hospital stay for treatment of Acute pancreatitis, Colitis and electrolytes imbalance with IV fluids and Narcotics and need of blood work and electrolytes monitoring Quality Stroke Does the patient have a stroke diagnosis?: No VTE Prior VTE?: No VTE Risk Level:: Medical - moderate - high VTE Device Contraindication: Treatment Not Indicated VTE Drug Contraindication: N/A - Med Ordered
[2024-10-27] MEDS: metroNIDAZOLE/NS 500 MG/100 ML PIGGYBACK 100 MG IV ×2 (15:02→22:53)
[2024-10-27] MEDS: cefTRIAXone sodium 2 GM VIAL IVPUSH (15:02)
[2024-10-27] MEDS: Potassium Chloride ER 20 MEQ TAB.ER.PRT 40 MEQ PO (15:02)
[2024-10-27] MEDS: Enoxaparin Sodium 40 MG/0.4 ML SYRINGE SUBCUT (15:02)
[2024-10-27] MEDS: Lactated Ringers 1,000 ML 125 ML IVCONT ×2 (15:04→22:53)
[2024-10-27] MEDS: HYDROmorphone HCl 0.5 MG/0.5 ML SYRINGE 1 MG IVPUSH ×2 (15:16→19:44)
[2024-10-27 15:18] LABS: Anion Gap 16 (12-20); Blood Urea Nitrogen 5 mg/dL (9-16); Calcium 8.3 mg/dL (8.4-10.2); Carbon Dioxide 24 mmol/L (22-29); Chloride 105 mmol/L (96-108); Estimated Glomerular Filt Rate > 60; Glucose Random 146 mg/dL (60-115); Potassium 2.7 mmol/L (3.3-5.1); Sodium 142 mmol/L (135-145)
[2024-10-27 16:16] VITALS: BP 164/83; PULSE 95; RESP 22; TEMP 36.2; O2SAT 93
[2024-10-27] MEDS: PHENobarbitaL sodium 130 MG/ML IM ONCE 160 MG IM (16:20)
--- NOTE | 2024-10-27 16:40 | PC.NURSE ---
continues to endorse abdominal pain. resting quietly in room. bilateral IVs. patient able to ambulate independently to commode in room. LR and final bag of potassium infusing.
--- NOTE | 2024-10-27 19:40 | PHA.MEDREC ---
Addendum entered by Kristen Russell [facility] 10/27/24 19:57: REVIEWED Original Note: Pharmacy Consult ? Medication Reconciliation Pharmacy has completed the medication reconciliation. Spoke to Patient son to confirm med list. Son states patient is no longer taking Vitamin B-12 1,000 mg, Losartan 50 mg, Magnesium Oxide 400 mg, Ondansetron 4 mg, Vancomycin 125 mg.
[2024-10-27] MEDS: PHENobarbitaL sodium 130 MG/ML VIAL IM Q3Hx2 120 MG IM ×2 (19:45→22:55)
[2024-10-27 20:14] VITALS: BP 174/92; PULSE 96; RESP 19; O2SAT 94
[2024-10-27 21:28] VITALS: BP 180/86; PULSE 99; RESP 20; TEMP 37; O2SAT 94
[2024-10-27] MEDS: Sucralfate Oral Suspension 1 GM/10 ML ORAL.SUSP PO (21:52)
[2024-10-27] MEDS: vancomycin HCL 125 MG CAPSULE PO (21:52)
[2024-10-27 23:04] VITALS: BP 177/88; PULSE 92; RESP 19; TEMP 36.8; O2SAT 96
[2024-10-27] MEDS: traZODone HCL 100 MG TABLET PO (23:55)
--- NOTE | 2024-10-28 01:46 | ECG_ITS ---
Test Reason : CP Blood Pressure : / mmHG Vent. Rate : 094 BPM Atrial Rate : 094 BPM P-R Int : 136 ms QRS Dur : 090 ms QT Int : 410 ms P-R-T Axes : 066 041 046 degrees QTc Int : 512 ms Normal sinus rhythm Prolonged QT Abnormal ECG When compared with ECG of 12-OCT-2024 12:02, No significant change was found Referred By: Inge Cleaning Electronically Signed By:DESMOND HILL MD
[2024-10-28 03:04] LABS: CDiff Gene PCR NEGATIVE (Negative)
[2024-10-28 03:47] VITALS: BP 187/90; PULSE 79; RESP 18; TEMP 37.1; O2SAT 92
[2024-10-28 05:19] VITALS: BMI 21.0
[2024-10-28] MEDS: Omeprazole 20 MG CAPSULE.DR PO (06:09)
[2024-10-28] MEDS: Morphine Sulfate 4 MG/ML CARTRIDGE IVPUSH ×4 (06:12→20:53)
[2024-10-28] MEDS: Lactated Ringers 1,000 ML 125 ML IVCONT ×3 (06:19→23:25)
[2024-10-28 06:33] LABS: MANUAL DIFF FLAG NO
[2024-10-28 06:41] LABS: Basophils Percent Auto 0.3 % (0-2); Eosinophils Percent Auto 0.5 % (0-4); Hematocrit 30.6 % (37.0-47.0); Imm Gran Abs Auto 0.03 X10*3/uL (0.00-0.03); Imm Gran Pct Auto 0.5 % (0.0-0.4); Lymphocytes Absolute Auto 1.3 X10*3/uL (1.2-4.9); Mean Corpuscular HGB Conc 35.9 g/dl (31.0-35.0); Mean Corpuscular Hemoglobin 34.9 pg (27.0-33.0); Mean Corpuscular Volume 97.1 fL (80.0-98.0); Monocytes Absolute Auto 0.4 X10*3/uL (0.1-1.2); Monocytes Percent Auto 6.5 % (2-11); Neutrophils Absolute Auto 4.5 x10*3/uL (2.0-8.3); Neutrophils Percent Auto 71.2 % (45-73); Platelet Count 102 X10*3/uL (160-400); Red Blood Count 3.15 X10*6/uL (4.20-5.50); Red Cell Distribution Width 15.1 % (11.0-16.0); White Blood Count 6.3 X10*3/uL (4.8-10.8)
[2024-10-28] MEDS: metroNIDAZOLE/NS 500 MG/100 ML PIGGYBACK 100 MG IV ×3 (06:55→23:26)
[2024-10-28 07:08] LABS: Alanine Aminotransferase 25 U/L (0-31); Albumin Level 3.5 g/dL (3.5-5.0); Alkaline Phosphatase 136 U/L (39-117); Anion Gap 14 (12-20); Aspartate Amino Transferase 70 U/L (5-31); Bilirubin Total 0.8 mg/dL (0.0-1.0); Blood Urea Nitrogen 3 mg/dL (9-16); Carbon Dioxide 26 mmol/L (22-29); Chloride 101 mmol/L (96-108); Creatinine Clr Calc Pharmacy 98.5; Estimated Glomerular Filt Rate > 60; Glucose Random 108 mg/dL (60-115); Sodium 139 mmol/L (135-145)
[2024-10-28 07:14] LABS: Potassium 2.1 mmol/L (3.3-5.1)
[2024-10-28 08:00] VITALS: BP 167/84; PULSE 85; RESP 18; TEMP 36.8; O2SAT 92
[2024-10-28] MEDS: Magnesium Sulfate/H2O 2 GM/50 ML PIGGYBACK IV ×2 (08:07→16:52)
[2024-10-28] MEDS: Cholecalciferol (Vitamin D3) 25 MCG TABLET 50 MCG PO (08:12)
[2024-10-28] MEDS: amLODIPine Besylate 5 MG TABLET PO (08:12)
[2024-10-28] MEDS: Potassium Chloride ER 10 MEQ TABLET.ER PO (08:12)
[2024-10-28] MEDS: Magnesium Oxide 400 MG TABLET PO ×2 (08:12→16:43)
[2024-10-28] MEDS: PHENobarbitaL 15 MG TABLET 45 MG PO ×2 (08:12→20:13)
[2024-10-28] MEDS: Escitalopram Oxalate 20 MG TABLET PO (08:12)
[2024-10-28] MEDS: Sucralfate Oral Suspension 1 GM/10 ML ORAL.SUSP PO ×4 (08:12→20:14)
[2024-10-28] MEDS: Thiamine HCL 100 MG TABLET PO (08:13)
[2024-10-28] MEDS: Folic Acid 1 MG TABLET PO (08:13)
[2024-10-28] MEDS: Potassium Chloride/H20 10 MEQ/100 ML PIGGYBACK 100 MEQ IV ×4 (08:39→12:11)
[2024-10-28] MEDS: vancomycin HCL 125 MG CAPSULE PO ×3 (09:43→20:54)
--- NOTE | 2024-10-28 09:54 | MHC.CM.PN ---
EMR REVIEWED, PT W/ABD PAIN/ELECTROLYTE IMBALANCE/PANCREATITIS, CM MET W/PTWHO REPORTS SHE LIVES [place], IS FULLY INDEP, NO DME/SERVICES, PT WILL NEED RECOVERY TEAM PRIOR TO DC, PT'S GOAL IS HOME. PCP/HCP ON FILE VERIFIED.
--- NOTE | 2024-10-28 09:58 | P.PNIM_ITS ---
Subjective Subjective Date of Service: 10/28/24 Interval History: Seen and evaluated feels weak and reporting abd pain tolerating water sips low K and Mg Review of Systems Review of Systems: Yes all other systems are reviewed and are negative Physical Exam 2 Vital Signs: Vital Signs: Last Vital Signs Temp 98.3 F 10/28/24 08:00 Pulse 85 10/28/24 08:00 Resp 18 10/28/24 08:00 BP 167/84 H 10/28/24 08:00 Pulse Ox 92 10/28/24 08:00 O2 Del Method Room Air 10/28/24 08:00 BMI result Body Mass Index 21.0 Const: Other: Constitutional : Awake, interactive, looks in mild distress Neck : Normal inspection, Supple Cardiovascular : RRR, no JVP, no lower extremity edema Respiratory : good bilateral air entry, no crackles, wheezes or rhonchi Gastrointestinal: soft, lax, decreased bowel sounds, all over tenderness with no surgical signs Skin : Warm, Dry Neurological : Alert & oriented x3, No focal deficit Objective Data Active Medications Acetaminophen (Acetaminophen 325 Mg Tablet) 650 mg PO Q6H PRN PRN Reason: Pain, Mild 1-3,fever,headache Al Hydroxide/Mg Hydroxide (Magnesium Hydrox/Alum Hydrox 30 Ml Oral.Susp) 30 ml PO Q4H PRN PRN Reason: Heartburn Amlodipine Besylate (Amlodipine Besylate 5 Mg Tablet) 5 mg PO DAILY [facility]; Protocol Last Admin: 10/28/24 08:12 Dose: 5 mg Documented By: LANETTE Calcium Carbonate (Calcium Carbonate 750 Mg Tab.Chew) 750 mg PO Q4H PRN PRN Reason: Heartburn Ceftriaxone Sodium (Ceftriaxone Sodium 2 Gm Vial) 2 gm IVPUSH Q24H [facility] Last Admin: 10/27/24 15:02 Dose: 2 gm Documented By: MYCHAL Clonidine HCl (Clonidine Hcl 0.1 Mg Tablet) 0.1 mg PO TID PRN; Protocol PRN Reason: Anxiety Enoxaparin Sodium (Enoxaparin Sodium 40 Mg/0.4 Ml Syringe) 40 mg SUBCUT Q24H [facility] Last Admin: 10/27/24 15:02 Dose: 40 mg Documented By: MYCHAL Escitalopram Oxalate (Escitalopram Oxalate 20 Mg Tablet) 20 mg PO DAILY [facility] Last Admin: 10/28/24 08:12 Dose: 20 mg Documented By: LANETTE Folic Acid (Folic Acid 1 Mg Tablet) 1 mg PO DAILY [facility] Last Admin: 10/28/24 08:13 Dose: 1 mg Documented By: LANETTE Hydromorphone HCl (Hydromorphone Hcl 0.5 Mg/0.5 Ml Syringe) 0.5 mg SUBCUT Q6H PRN; Protocol PRN Reason: Pain, Moderate(Pain Scale 4-6) Lactated Ringer's (Lr) 1,000 mls @ 125 mls/hr IVCONT .Q8H [facility] Last Admin: 10/28/24 06:19 Dose: 125 mls/hr Documented By: KRYS Metronidazole (Flagyl) 500 mg in 100 mls @ 100 mls/hr IV Q8H [facility] Last Infusion: 10/28/24 08:07 Dose: Infused Documented By: LANETTE Potassium Chloride (Potassium Chloride/H20) 10 meq in 100 mls @ 100 mls/hr IV Q1H [facility] Stop: 10/28/24 11:14 Last Admin: 10/28/24 09:37 Dose: 100 mls/hr Documented By: LANETTE Magnesium Oxide (Magnesium Oxide 400 Mg Tablet) [facility] Last Admin: 10/28/24 08:12 Dose: 400 mg Documented By: LANETTE Morphine Sulfate (Morphine Sulfate 4 Mg/Ml Cartridge) 4 mg IVPUSH Q4H PRN; Protocol PRN Reason: Pain, Severe (Pain Scale 7-10) Last Admin: 10/28/24 06:12 Dose: 4 mg Documented By: KRYS Omeprazole (Omeprazole 20 Mg Capsule.) 20 mg PO DAILY@0630 [facility] Last Admin: 10/28/24 06:09 Dose: 20 mg Documented By: KRYS Ondansetron HCl (Ondansetron Hcl 4 Mg/2 Ml Vial) 4 mg IVPUSH Q8H PRN PRN Reason: Nausea and Vomiting Last Admin: 10/27/24 19:46 Dose: 4 mg Documented By: LESLEE Pharmacy Consult (Consult Rx Etoh Phenob Im/Po) 1 each MISCELLANE ONCE PRN; Protocol PRN Reason: Consult order Phenobarbital (Phenobarbital 15 Mg Tablet) 45 mg PO BID [facility]; Protocol Stop: 10/29/24 21:01 Last Admin: 10/28/24 08:12 Dose: 45 mg Documented By: LANETTE Phenobarbital (Phenobarbital 30 Mg Tablet) 30 mg PO BID [facility]; Protocol Stop: 10/31/24 21:01 Phenobarbital (Phenobarbital 30 Mg Tablet) 30 mg PO DAILY [facility]; Protocol Stop: 11/02/24 09:01 Potassium Chloride (Potassium Chloride Er 10 Meq Tablet.Er) 10 meq PO DAILY [facility] Last Admin: 10/28/24 08:12 Dose: 10 meq Documented By: LANETTE Sucralfate (Sucralfate Oral Suspension 1 Gm/10 Ml Oral.Susp) 1 gm PO QID [facility] Last Admin: 10/28/24 08:12 Dose: 1 gm Documented By: LANETTE Thiamine HCl (Thiamine Hcl 100 Mg Tablet) 100 mg PO DAILY [facility] Last Admin: 10/28/24 08:13 Dose: 100 mg Documented By: LANETTE Trazodone HCl (Trazodone Hcl 100 Mg Tablet) 100 mg PO BEDTIME PRN PRN Reason: insomnia Last Admin: 10/27/24 23:55 Dose: 100 mg Documented By: KRYS Vancomycin HCl (Vancomycin Hcl 125 Mg Capsule) 125 mg PO Q6H [facility] Last Admin: 10/28/24 09:43 Dose: 125 mg Documented By: LANETTE Vitamin D (Cholecalciferol (Vitamin D3) 25 Mcg Tablet) 50 mcg PO DAILY [facility] Last Admin: 10/28/24 08:12 Dose: 50 mcg Documented By: LANETTE Labs 10/28/24 06:23 10/28/24 06:23 Labs: Laboratory Results - last 24 hr 10/27/24 10/27/24 10/28/24 09:57 14:55 02:00 MCV 98.0 MCH 35.4 H MCHC 36.2 H RDW 14.8 Plt Count 120 L D MPV 10.2 Immature Gran % (Auto) 0.5 H Neut % (Auto) 62.9 Lymph % (Auto) 27.7 [place] % (Auto) 6.4 Eos % (Auto) 1.6 Baso % (Auto) 0.9 Lymph # (Auto) 1.5 [place] # (Auto) 0.4 Eos # (Auto) 0.1 Baso # (Auto) 0.1 Abs Immat Gran (auto) 0.03 Absolute Neuts (auto) 3.4 Absolute Nucleated RBC 0.000 Nucleated RBC % (auto) 0.0 Anion Gap 14 16 Estim Creat Clear Calc 93.3 95.0 Estimated GFR > 60 > 60 Random Glucose 147 H 146 H Calcium 9.3 8.3 L D Magnesium 1.0 L* Total Bilirubin 0.5 AST 79 H ALT 27 Alkaline Phosphatase 159 H Total Protein 6.8 Albumin 3.9 Lipase 617 H C. difficile Tox B Gene NEGATIVE 10/28/24 06:23 MCV 97.1 MCH 34.9 H MCHC 35.9 H RDW 15.1 Plt Count 102 L MPV 10.0 Immature Gran % (Auto) 0.5 H Neut % (Auto) 71.2 Lymph % (Auto) 21.0 [place] % (Auto) 6.5 Eos % (Auto) 0.5 Baso % (Auto) 0.3 Lymph # (Auto) 1.3 [place] # (Auto) 0.4 Eos # (Auto) 0.0 Baso # (Auto) 0.0 Abs Immat Gran (auto) 0.03 Absolute Neuts (auto) 4.5 Absolute Nucleated RBC 0.000 Nucleated RBC % (auto) 0.0 Anion Gap 14 Estim Creat Clear Calc 98.5 Estimated GFR > 60 Random Glucose 108 Calcium 8.0 L Magnesium 1.0 L* Total Bilirubin 0.8 AST 70 H ALT 25 Alkaline Phosphatase 136 H Total Protein 6.0 L Albumin 3.5 Lipase C. difficile Tox B Gene Assessment and Plan (1) Abdominal pain: Status: Acute (2) Pancreatitis: Status: Acute (3) Diarrhea: Status: Acute (4) Nausea & vomiting: Status: Acute (5) Hypokalemia: Status: Acute (6) Hypomagnesemia: Status: Acute (7) Alcohol withdrawal: Status: Acute Plan A 49 years old lady with PMH of alcohol abuse, ? alcohol withdrawal seizures, hepatitis-C s/p?outpatient treatment,? pancreatic sufficiency, hypertension, GERD among others presenting to the hospital with 2 days of abdominal pain and diarrhea. Acute alcoholic Pancreatitis CT scan as reported, will need a follow up after resolution of inflammation to eval small reported lesion Pain management with Dilaudid continue IVF advnace diet as tolerated, NPO for now Acute colitis Not septic CT reporting Colonic mural thickening likely colitis from inflammatory infectious etiology. Unclear if bacterial\viral or C.Diff related negative c. diff Start Flagyl and Ceftriaxone Keep on PO Vancomycin as prophylaxis alcohol abuse w history of withdrawal and withdrawal seizure on CIWA protocol; addiction medicine consult PHenobarb protocol acute hypomagnesemia Mg of 1 give replacement IV and PO follow level Acute Hypokalemia K of 2.1 this morning IV and PO replacement follow BMP HTN metoprolol, losartan thrombocytopenia stable hold chemical CVT prophylaxis until PLT > 100; DVT PPx Lovenox The patient will need overnight hospital stay for treatment of Acute pancreatitis, Colitis and electrolytes imbalance with IV fluids and Narcotics and need of blood work and electrolytes monitoring Quality Stroke Does the patient have a stroke diagnosis?: No VTE Prior VTE?: No VTE Risk Level:: Medical - moderate - high VTE Device Contraindication: Treatment Not Indicated VTE Drug Contraindication: N/A - Med Ordered
--- NOTE | 2024-10-28 10:07 | MHC.RECOVRN ---
Attempted to meet with pt. following a positive screen for unhealthy alcohol use on admission.? ?Intention was to discuss alcohol use and recovery/support options. Pt declined to meet but did accept a folder with resources including information on inpt. and outpt. treatment, WEI, harm reduction and recovery coaching. Pt also stated interest in scheduling an appt. in [facility] once she finds out when her D/C is. She declined scheduling the appt. today with t/w. Information passed along to [facility] Team as well as [facility]. T/W available as needed.
[2024-10-28 12:00] VITALS: BP 160/84; PULSE 93; RESP 18; TEMP 36.4; O2SAT 96
[2024-10-28] MEDS: ondansetron HCL 4 MG/2 ML VIAL IVPUSH (12:28)
[2024-10-28 13:46] LABS: Anion Gap 12 (12-20); Blood Urea Nitrogen < 3 mg/dL (9-16); Calcium 8.1 mg/dL (8.4-10.2); Carbon Dioxide 29 mmol/L (22-29); Chloride 101 mmol/L (96-108); Creatinine Clr Calc Pharmacy 106.4; Estimated Glomerular Filt Rate > 60; Glucose Random 113 mg/dL (60-115); Magnesium 1.5 mg/dL (1.6-2.6); Potassium 2.7 mmol/L (3.3-5.1); Sodium 139 mmol/L (135-145)
[2024-10-28] MEDS: Enoxaparin Sodium 40 MG/0.4 ML SYRINGE SUBCUT (14:50)
[2024-10-28] MEDS: cefTRIAXone sodium 2 GM VIAL IVPUSH (14:50)
[2024-10-28 15:24] VITALS: BP 165/84; PULSE 83; RESP 18; TEMP 36.4; O2SAT 93
[2024-10-28] MEDS: Potassium Chloride Packet 20 MEQ PACKET 40 MEQ PO ×2 (16:52→18:14)
[2024-10-28 19:50] VITALS: BP 159/77; PULSE 82; RESP 18; TEMP 36.7; O2SAT 94
[2024-10-28] MEDS: Calcium Carbonate 750 MG TAB.CHEW PO (20:14)
[2024-10-28 23:04] VITALS: BP 139/72; PULSE 79; RESP 18; TEMP 36.6; O2SAT 95
[2024-10-28] MEDS: traZODone HCL 100 MG TABLET PO (23:34)
[2024-10-29] MEDS: Morphine Sulfate 4 MG/ML CARTRIDGE IVPUSH ×6 (00:56→23:43)
[2024-10-29 03:38] VITALS: BP 140/78; PULSE 82; RESP 18; TEMP 36.3; O2SAT 96
[2024-10-29] MEDS: Omeprazole 20 MG CAPSULE.DR PO (05:12)
[2024-10-29] MEDS: vancomycin HCL 125 MG CAPSULE PO ×4 (05:12→22:06)
[2024-10-29] MEDS: metroNIDAZOLE/NS 500 MG/100 ML PIGGYBACK 100 MG IV ×3 (05:48→22:06)
[2024-10-29 06:39] LABS: Imm Gran Abs Auto 0.02 X10*3/uL (0.00-0.03); Imm Gran Pct Auto 0.4 % (0.0-0.4); Lymphocytes Absolute Auto 1.2 X10*3/uL (1.2-4.9); MANUAL DIFF FLAG SCAN; PLT CLUMP 1; SCAN SMEAR FLAG 1
[2024-10-29 06:41] LABS: Basophils Percent Auto 0.8 % (0-2); Eosinophils Absolute Auto 0.3 X10*3/uL (0.0-0.4); Eosinophils Percent Auto 5.2 % (0-4); Hematocrit 29.2 % (37.0-47.0); Lymphocytes Percent Auto 22.9 % (20-40); Mean Corpuscular HGB Conc 34.2 g/dl (31.0-35.0); Mean Corpuscular Hemoglobin 34.8 pg (27.0-33.0); Mean Corpuscular Volume 101.7 fL (80.0-98.0); Mean Platelet Volume 10.8 fL (9.4-12.3); Monocytes Absolute Auto 0.4 X10*3/uL (0.1-1.2); Monocytes Percent Auto 6.9 % (2-11); NRBC Pct Auto 0.4 /100WBC (0.0-0.2); Neutrophils Absolute Auto 3.4 x10*3/uL (2.0-8.3); Neutrophils Percent Auto 63.8 % (45-73); Red Blood Count 2.87 X10*6/uL (4.20-5.50); Red Cell Distribution Width 15.3 % (11.0-16.0)
[2024-10-29 06:50] LABS: White Blood Count 5.2 X10*3/uL (4.8-10.8)
[2024-10-29 06:51] LABS: Platelet Count 86 X10*3/uL (160-400)
[2024-10-29 06:58] LABS: Blood Urea Nitrogen < 3 mg/dL (9-16); Creatinine Clr Calc Pharmacy 96.7; Estimated Glomerular Filt Rate > 60; Glucose Random 109 mg/dL (60-115)
[2024-10-29 07:10] VITALS: BP 135/65; PULSE 79; RESP 18; TEMP 36.7; O2SAT 97
[2024-10-29 07:11] LABS: SLIDE REVIEW VERIFIED
[2024-10-29 07:27] LABS: Anion Gap 14 (12-20); Carbon Dioxide 26 mmol/L (22-29); Chloride 102 mmol/L (96-108); Sodium 139 mmol/L (135-145)
[2024-10-29 07:33] LABS: Potassium 2.8 mmol/L (3.3-5.1)
[2024-10-29] MEDS: Sucralfate Oral Suspension 1 GM/10 ML ORAL.SUSP PO ×4 (07:59→20:47)
[2024-10-29] MEDS: PHENobarbitaL 15 MG TABLET 45 MG PO ×2 (08:00→20:47)
[2024-10-29] MEDS: Potassium Chloride ER 20 MEQ TAB.ER.PRT 40 MEQ PO (08:00)
[2024-10-29] MEDS: Magnesium Oxide 400 MG TABLET PO ×2 (08:00→16:36)
[2024-10-29] MEDS: amLODIPine Besylate 5 MG TABLET PO (08:00)
[2024-10-29] MEDS: Thiamine HCL 100 MG TABLET PO (08:01)
[2024-10-29] MEDS: Magnesium Sulfate/H2O 2 GM/50 ML PIGGYBACK IV (08:01)
[2024-10-29] MEDS: Lactated Ringers 1,000 ML 125 ML IVCONT (08:01)
[2024-10-29] MEDS: Cholecalciferol (Vitamin D3) 25 MCG TABLET 50 MCG PO (08:01)
[2024-10-29] MEDS: Potassium Chloride ER 10 MEQ TABLET.ER PO (08:01)
[2024-10-29] MEDS: Folic Acid 1 MG TABLET PO (08:01)
[2024-10-29] MEDS: Escitalopram Oxalate 20 MG TABLET PO (08:01)
[2024-10-29 11:21] VITALS: BP 121/62; PULSE 72; RESP 18; TEMP 36.4; O2SAT 96
--- NOTE | 2024-10-29 11:46 | HO.PM.IMPN ---
Subjective Subjective Date of Service: 10/29/24 Interval History: Still with epigastric pain but wants to try some solids Physical Exam Vital Signs: Vital Signs: Last Vital Signs Temp 97.5 F 10/29/24 11:21 Pulse 72 10/29/24 11:21 Resp 18 10/29/24 11:21 BP 121/62 10/29/24 11:21 Pulse Ox 96 10/29/24 11:21 O2 Del Method Room Air 10/29/24 11:21 BMI result Body Mass Index 21.0 Const: Other: Constitutional : Awake, interactive, looks in mild distress Neck : Normal inspection, Supple Cardiovascular : RRR, no JVP, no lower extremity edema Respiratory : good bilateral air entry, no crackles, wheezes or rhonchi Gastrointestinal: soft, lax, decreased bowel sounds, all over tenderness with no surgical signs Skin : Warm, Dry Neurological : Alert & oriented x3, No focal deficit Objective Data Active Medications Acetaminophen (Acetaminophen 325 Mg Tablet) 650 mg PO Q6H PRN PRN Reason: Pain, Mild 1-3,fever,headache Al Hydroxide/Mg Hydroxide (Magnesium Hydrox/Alum Hydrox 30 Ml Oral.Susp) 30 ml PO Q4H PRN PRN Reason: Heartburn Amlodipine Besylate (Amlodipine Besylate 5 Mg Tablet) 5 mg PO DAILY [facility]; Protocol Last Admin: 10/29/24 08:00 Dose: 5 mg Documented By: LANETTE Calcium Carbonate (Calcium Carbonate 750 Mg Tab.Chew) 750 mg PO Q4H PRN PRN Reason: Heartburn Last Admin: 10/28/24 20:14 Dose: 750 mg Documented By: KRYS Ceftriaxone Sodium (Ceftriaxone Sodium 2 Gm Vial) 2 gm IVPUSH Q24H [facility] Last Admin: 10/28/24 14:50 Dose: 2 gm Documented By: LANETTE Clonidine HCl (Clonidine Hcl 0.1 Mg Tablet) 0.1 mg PO TID PRN; Protocol PRN Reason: Anxiety Enoxaparin Sodium (Enoxaparin Sodium 40 Mg/0.4 Ml Syringe) 40 mg SUBCUT Q24H [facility] Last Admin: 10/28/24 14:50 Dose: 40 mg Documented By: LANETTE Escitalopram Oxalate (Escitalopram Oxalate 20 Mg Tablet) 20 mg PO DAILY [facility] Last Admin: 10/29/24 08:01 Dose: 20 mg Documented By: LANETTE Folic Acid (Folic Acid 1 Mg Tablet) 1 mg PO DAILY [facility] Last Admin: 10/29/24 08:01 Dose: 1 mg Documented By: LANETTE Hydromorphone HCl (Hydromorphone Hcl 0.5 Mg/0.5 Ml Syringe) 0.5 mg SUBCUT Q6H PRN; Protocol PRN Reason: Pain, Moderate(Pain Scale 4-6) Lactated Ringer's (Lr) 1,000 mls @ 125 mls/hr IVCONT .Q8H [facility] Last Admin: 10/29/24 08:01 Dose: 125 mls/hr Documented By: LANETTE Metronidazole (Flagyl) 500 mg in 100 mls @ 100 mls/hr IV Q8H [facility] Last Infusion: 10/29/24 07:21 Dose: Infused Documented By: KRYS Magnesium Oxide (Magnesium Oxide 400 Mg Tablet) 400 mg PO BIDPC [facility] Last Admin: 10/29/24 08:00 Dose: 400 mg Documented By: LANETTE Morphine Sulfate (Morphine Sulfate 4 Mg/Ml Cartridge) 4 mg IVPUSH Q4H PRN; Protocol PRN Reason: Pain, Severe (Pain Scale 7-10) Last Admin: 10/29/24 09:46 Dose: 4 mg Documented By: LANETTE Omeprazole (Omeprazole 20 Mg Capsule.Dr) 20 mg PO DAILY@0630 [facility] Last Admin: 10/29/24 05:12 Dose: 20 mg Documented By: KRYS Ondansetron HCl (Ondansetron Hcl 4 Mg/2 Ml Vial) 4 mg IVPUSH Q8H PRN PRN Reason: Nausea and Vomiting Last Admin: 10/28/24 12:28 Dose: 4 mg Documented By: RACHEL Pharmacy Consult (Consult Rx Etoh Phenob Im/Po) 1 each MISCELLANE ONCE PRN; Protocol PRN Reason: Consult order Phenobarbital (Phenobarbital 15 Mg Tablet) 45 mg PO BID [facility]; Protocol Stop: 10/29/24 21:01 Last Admin: 10/29/24 08:00 Dose: 45 mg Documented By: LANETTE Phenobarbital (Phenobarbital 30 Mg Tablet) 30 mg PO BID [facility]; Protocol Stop: 10/31/24 21:01 Phenobarbital (Phenobarbital 30 Mg Tablet) 30 mg PO DAILY [facility]; Protocol Stop: 11/02/24 09:01 Potassium Chloride (Potassium Chloride Er 10 Meq Tablet.Er) 10 meq PO DAILY [facility] Last Admin: 10/29/24 08:01 Dose: 10 meq Documented By: LANETTE Sucralfate (Sucralfate Oral Suspension 1 Gm/10 Ml Oral.Susp) 1 gm PO QID [facility] Last Admin: 10/29/24 07:59 Dose: 1 gm Documented By: LANETTE Thiamine HCl (Thiamine Hcl 100 Mg Tablet) 100 mg PO DAILY [facility] Last Admin: 10/29/24 08:01 Dose: 100 mg Documented By: LANETTE Trazodone HCl (Trazodone Hcl 100 Mg Tablet) 100 mg PO BEDTIME PRN PRN Reason: insomnia Last Admin: 10/28/24 23:34 Dose: 100 mg Documented By: KRYS Vancomycin HCl (Vancomycin Hcl 125 Mg Capsule) 125 mg PO Q6H [facility] Last Admin: 10/29/24 09:46 Dose: 125 mg Documented By: LANETTE Vitamin D (Cholecalciferol (Vitamin D3) 25 Mcg Tablet) 50 mcg PO DAILY [facility] Last Admin: 10/29/24 08:01 Dose: 50 mcg Documented By: LANETTE Labs 10/29/24 06:24 10/29/24 06:24 Labs: Laboratory Results - last 24 hr 10/28/24 10/29/24 13:14 06:24 MCV 101.7 H MCH 34.8 H MCHC 34.2 RDW 15.3 Plt Count 86 L MPV 10.8 Immature Gran % (Auto) 0.4 Neut % (Auto) 63.8 Lymph % (Auto) 22.9 [place] % (Auto) 6.9 Eos % (Auto) 5.2 H Baso % (Auto) 0.8 Lymph # (Auto) 1.2 [place] # (Auto) 0.4 Eos # (Auto) 0.3 Baso # (Auto) 0.0 Abs Immat Gran (auto) 0.02 Absolute Neuts (auto) 3.4 Absolute Nucleated RBC 0.020 H Nucleated RBC % (auto) 0.4 H Smear Tech's Comments VERIFIED Anion Gap 12 14 Estim Creat Clear Calc 106.4 96.7 Estimated GFR > 60 > 60 Random Glucose 113 109 Calcium 8.1 L 8.0 L Magnesium 1.5 L Assessment and Plan (1) Abdominal pain: Status: Acute (2) Pancreatitis: Status: Acute (3) Diarrhea: Status: Acute (4) Nausea & vomiting: Status: Acute (5) Hypokalemia: Status: Acute (6) Hypomagnesemia: Status: Acute (7) Alcohol withdrawal: Status: Acute Plan 49F PMH of alcohol abuse, alcohol withdrawal seizures, hepatitis-C s/p?outpatient treatment,? pancreatic sufficiency, hypertension, GERD presented with abdominal pain and diarrhea Alcohol dependence with acute pancreatitis and acute withdrawal CT scan as reported, will need a follow up after resolution of inflammation to eval small reported lesion Pain management with Dilaudid continue IVF advnace diet to solids Acute colitis Not septic CT reporting Colonic mural thickening likely colitis from inflammatory infectious etiology. Unclear if bacterial\viral or C.Diff related negative c. diff Started Flagyl and Ceftriaxone Keep on PO Vancomycin as prophylaxis acute hypomagnesemia acute hypokalemia replace and monitor HTN metoprolol, losartan DVT PPx Lovenox reason for continued hospitalization:hypokalemia Quality Stroke Does the patient have a stroke diagnosis?: No VTE Prior VTE?: No VTE Risk Level:: Medical - moderate - high VTE Device Contraindication: Treatment Not Indicated VTE Drug Contraindication: N/A - Med Ordered
[2024-10-29] MEDS: cefTRIAXone sodium 2 GM VIAL IVPUSH (14:24)
[2024-10-29] MEDS: Enoxaparin Sodium 40 MG/0.4 ML SYRINGE SUBCUT (14:25)
[2024-10-29 15:18] VITALS: BP 144/76; PULSE 82; RESP 18; TEMP 36.4; O2SAT 97
[2024-10-29] MEDS: cloNIDine HCL 0.1 MG TABLET PO (17:36)
[2024-10-29 19:42] VITALS: BP 130/80; PULSE 77; RESP 16; TEMP 36.4; O2SAT 98
[2024-10-29 23:43] VITALS: BP 168/83; PULSE 80; RESP 16; TEMP 37.1; O2SAT 99
[2024-10-30] VITALS (7 sets, daily range): BP systolic 129–185; BP diastolic 66–93; PULSE 64–102; RESP 16–18; TEMP 36–36.8; O2SAT 95–99
[2024-10-30] MEDS: traZODone HCL 100 MG TABLET PO ×2 (00:33→23:04)
[2024-10-30] MEDS: cloNIDine HCL 0.1 MG TABLET PO ×3 (02:23→18:43)
[2024-10-30] MEDS: vancomycin HCL 125 MG CAPSULE PO ×4 (03:55→23:01)
[2024-10-30] MEDS: Morphine Sulfate 4 MG/ML CARTRIDGE IVPUSH ×5 (04:40→22:55)
[2024-10-30] MEDS: Magnesium Hydrox/Alum Hydrox 30 ML ORAL.SUSP PO ×3 (04:44→18:46)
[2024-10-30] MEDS: metroNIDAZOLE/NS 500 MG/100 ML PIGGYBACK 100 MG IV (06:46)
[2024-10-30] MEDS: Omeprazole 20 MG CAPSULE.DR PO (06:46)
[2024-10-30 07:17] LABS: Hematocrit 30.3 % (37.0-47.0); Mean Corpuscular Hemoglobin 34.7 pg (27.0-33.0); Mean Corpuscular Volume 105.2 fL (80.0-98.0); Mean Platelet Volume 10.8 fL (9.4-12.3); NRBC Pct Auto 0.4 /100WBC (0.0-0.2); Platelet Count 99 X10*3/uL (160-400); Red Blood Count 2.88 X10*6/uL (4.20-5.50); Red Cell Distribution Width 15.4 % (11.0-16.0); White Blood Count 5.3 X10*3/uL (4.8-10.8)
[2024-10-30 08:02] LABS: Alanine Aminotransferase 14 U/L (0-31); Albumin Level 3.2 g/dL (3.5-5.0); Alkaline Phosphatase 127 U/L (39-117); Anion Gap 10 (12-20); Aspartate Amino Transferase 34 U/L (5-31); Bilirubin Direct 0.1 mg/dL (0.0-0.5); Bilirubin Total 0.3 mg/dL (0.0-1.0); Blood Urea Nitrogen < 3 mg/dL (9-16); Calcium 8.5 mg/dL (8.4-10.2); Carbon Dioxide 32 mmol/L (22-29); Chloride 103 mmol/L (96-108); Creatinine Clr Calc Pharmacy 102.3; Estimated Glomerular Filt Rate > 60; Glucose Random 103 mg/dL (60-115); Magnesium 1.4 mg/dL (1.6-2.6); Potassium 3.1 mmol/L (3.3-5.1); Sodium 142 mmol/L (135-145); Total Protein 5.4 g/dL (6.5-8.0)
[2024-10-30] MEDS: amLODIPine Besylate 5 MG TABLET PO (08:10)
[2024-10-30] MEDS: Escitalopram Oxalate 20 MG TABLET PO (08:10)
[2024-10-30] MEDS: Folic Acid 1 MG TABLET PO (08:10)
[2024-10-30] MEDS: Thiamine HCL 100 MG TABLET PO (08:10)
[2024-10-30] MEDS: Potassium Chloride ER 10 MEQ TABLET.ER PO (08:10)
[2024-10-30] MEDS: Cholecalciferol (Vitamin D3) 25 MCG TABLET 50 MCG PO (08:10)
[2024-10-30] MEDS: PHENobarbitaL 30 MG TABLET PO ×2 (08:10→20:18)
[2024-10-30] MEDS: Sucralfate Oral Suspension 1 GM/10 ML ORAL.SUSP PO ×4 (08:10→20:18)
[2024-10-30] MEDS: Magnesium Oxide 400 MG TABLET PO ×2 (08:10→16:56)
--- NOTE | 2024-10-30 08:58 | HO.PM.IMPN ---
Subjective Subjective Date of Service: 10/30/24 Interval History: Was able to eat some solids but with pain and diarrhea Physical Exam Vital Signs: Vital Signs: Last Vital Signs Temp 97.3 F 10/30/24 06:52 Pulse 80 10/30/24 06:52 Resp 18 10/30/24 06:52 BP 172/81 H 10/30/24 06:52 Pulse Ox 95 10/30/24 06:52 O2 Del Method Room Air 10/30/24 06:52 BMI result Body Mass Index 21.0 Const: Other: Constitutional : Awake, interactive, looks in mild distress Neck : Normal inspection, Supple Cardiovascular : RRR, no JVP, no lower extremity edema Respiratory : good bilateral air entry, no crackles, wheezes or rhonchi Gastrointestinal: soft, lax, decreased bowel sounds, all over tenderness with no surgical signs Skin : Warm, Dry Neurological : Alert & oriented x3, No focal deficit Objective Data Active Medications Acetaminophen (Acetaminophen 325 Mg Tablet) 650 mg PO Q6H PRN PRN Reason: Pain, Mild 1-3,fever,headache Al Hydroxide/Mg Hydroxide (Magnesium Hydrox/Alum Hydrox 30 Ml Oral.Susp) 30 ml PO Q4H PRN PRN Reason: Heartburn Last Admin: 10/30/24 08:47 Dose: 30 ml Documented By: BROColt Amlodipine Besylate (Amlodipine Besylate 5 Mg Tablet) 5 mg PO DAILY [facility]; Protocol Last Admin: 10/30/24 08:10 Dose: 5 mg Documented By: KAYLEE Calcium Carbonate (Calcium Carbonate 750 Mg Tab.Chew) 750 mg PO Q4H PRN PRN Reason: Heartburn Last Admin: 10/28/24 20:14 Dose: 750 mg Documented By: KRYS Ceftriaxone Sodium (Ceftriaxone Sodium 2 Gm Vial) 2 gm IVPUSH Q24H SAMANTHA Last Admin: 10/29/24 14:24 Dose: 2 gm Documented By: LANETTE Clonidine HCl (Clonidine Hcl 0.1 Mg Tablet) 0.1 mg PO TID PRN; Protocol PRN Reason: Anxiety Last Admin: 10/30/24 02:23 Dose: 0.1 mg Documented By: JONEL Enoxaparin Sodium (Enoxaparin Sodium 40 Mg/0.4 Ml Syringe) 40 mg SUBCUT Q24H [facility] Last Admin: 10/29/24 14:25 Dose: 40 mg Documented By: LANETTE Escitalopram Oxalate (Escitalopram Oxalate 20 Mg Tablet) 20 mg PO DAILY [facility] Last Admin: 10/30/24 08:10 Dose: 20 mg Documented By: KAYLEE Folic Acid (Folic Acid 1 Mg Tablet) 1 mg PO DAILY [facility] Last Admin: 10/30/24 08:10 Dose: 1 mg Documented By: KAYLEE Hydromorphone HCl (Hydromorphone Hcl 0.5 Mg/0.5 Ml Syringe) 0.5 mg SUBCUT Q6H PRN; Protocol PRN Reason: Pain, Moderate(Pain Scale 4-6) Metronidazole (Flagyl) 500 mg in 100 mls @ 100 mls/hr IV Q8H [facility] Last Infusion: 10/30/24 08:15 Dose: Infused Documented By: KAYLEE Magnesium Sulfate (Magnesium Sulfate/H2o) 2 gm in 50 mls @ 25 mls/hr IV ONCE ONE Stop: 10/30/24 10:52 Magnesium Oxide ([facility] 400 Mg [facility] Last Admin: 10/30/24 08:10 Dose: 400 mg Documented By: KAYLEE Morphine Sulfate (Morphine Sulfate 4 Mg/Ml Cartridge) 4 mg IVPUSH Q4H PRN; Protocol PRN Reason: Pain, Severe (Pain Scale 7-10) Last Admin: 10/30/24 08:15 Dose: 4 mg Documented By: KAYLEE Omeprazole (Omeprazole 20 Mg Capsule.Dr) 20 mg PO DAILY@0630 [facility] Last Admin: 10/30/24 06:46 Dose: 20 mg Documented By: JONEL Ondansetron HCl (Ondansetron Hcl 4 Mg/2 Ml Vial) 4 mg IVPUSH Q8H PRN PRN Reason: Nausea and Vomiting Last Admin: 10/28/24 12:28 Dose: 4 mg Documented By: RACHEL Pharmacy Consult (Consult Rx Etoh Phenob Im/Po) 1 each MISCELLANE ONCE PRN; Protocol PRN Reason: Consult order Phenobarbital (Phenobarbital 30 Mg Tablet) 30 mg PO BID [facility]; Protocol Stop: 10/31/24 21:01 Last Admin: 10/30/24 08:10 Dose: 30 mg Documented By: KAYLEE Phenobarbital (Phenobarbital 30 Mg Tablet) 30 mg PO DAILY [facility]; Protocol Stop: 11/02/24 09:01 Potassium Chloride (Potassium Chloride Er 10 Meq Tablet.Er) 10 meq PO DAILY [facility] Last Admin: 10/30/24 08:10 Dose: 10 meq Documented By: KAYLEE Sucralfate (Sucralfate Oral Suspension 1 Gm/10 Ml Oral.Susp) 1 gm PO QID [facility] Last Admin: 10/30/24 08:10 Dose: 1 gm Documented By: KAYLEE Thiamine HCl (Thiamine Hcl 100 Mg Tablet) 100 mg PO DAILY [facility] Last Admin: 10/30/24 08:10 Dose: 100 mg Documented By: KAYLEE Trazodone HCl (Trazodone Hcl 100 Mg Tablet) 100 mg PO BEDTIME PRN PRN Reason: insomnia Last Admin: 10/30/24 00:33 Dose: 100 mg Documented By: JONEL Vancomycin HCl (Vancomycin Hcl 125 Mg Capsule) 125 mg PO Q6H [facility] Last Admin: 10/30/24 03:55 Dose: 125 mg Documented By: JONEL Vitamin D (Cholecalciferol (Vitamin D3) 25 Mcg Tablet) 50 mcg PO DAILY [facility] Last Admin: 10/30/24 08:10 Dose: 50 mcg Documented By: KAYLEE Labs 10/30/24 06:52 10/30/24 06:52 Labs: Laboratory Results - last 24 hr 10/30/24 06:52 MCV 105.2 H MCH 34.7 H MCHC 33.0 RDW 15.4 Plt Count 99 L MPV 10.8 Absolute Nucleated RBC 0.020 H Nucleated RBC % (auto) 0.4 H Anion Gap 10 L Estim Creat Clear Calc 102.3 Estimated GFR > 60 Random Glucose 103 Calcium 8.5 D Magnesium 1.4 L* Total Bilirubin 0.3 Direct Bilirubin 0.1 AST 34 H ALT 14 Alkaline Phosphatase 127 H Total Protein 5.4 L Albumin 3.2 L Assessment and Plan (1) Abdominal pain: Status: Acute (2) Pancreatitis: Status: Acute (3) Diarrhea: Status: Acute (4) Nausea & vomiting: Status: Acute (5) Hypokalemia: Status: Acute (6) Hypomagnesemia: Status: Acute (7) Alcohol withdrawal: Status: Acute Plan 49F PMH of alcohol abuse, alcohol withdrawal seizures, hepatitis-C s/p?outpatient treatment,? pancreatic sufficiency, hypertension, GERD presented with abdominal pain and diarrhea Alcohol dependence with acute pancreatitis and acute withdrawal CT scan as reported, will need a follow up after resolution of inflammation to eval small reported lesion Pain management with Dilaudid continue IVF Continued solids and monitor for tolerance Acute colitis Not septic CT reporting Colonic mural thickening likely colitis from inflammatory infectious etiology. Unclear if bacterial\viral or C.Diff related negative c. diff Started Flagyl and Ceftriaxone Keep on PO Vancomycin as prophylaxis acute hypomagnesemia acute hypokalemia replace and monitor HTN metoprolol, losartan DVT PPx Lovenox reason for continued hospitalization:hypokalemia Quality Stroke Does the patient have a stroke diagnosis?: No VTE Prior VTE?: No VTE Risk Level:: Medical - moderate - high VTE Device Contraindication: Treatment Not Indicated VTE Drug Contraindication: N/A - Med Ordered
[2024-10-30] MEDS: Magnesium Sulfate/H2O 2 GM/50 ML PIGGYBACK IV (10:30)
[2024-10-30] MEDS: Potassium Chloride ER 20 MEQ TAB.ER.PRT 40 MEQ PO (10:30)
[2024-10-30] MEDS: cefTRIAXone sodium 2 GM VIAL IVPUSH (14:26)
[2024-10-30] MEDS: Enoxaparin Sodium 40 MG/0.4 ML SYRINGE SUBCUT (14:26)
[2024-10-30] MEDS: metroNIDAZOLE 500 MG TABLET PO ×2 (14:26→23:01)
[2024-10-31] VITALS (8 sets, daily range): BP systolic 115–173; BP diastolic 62–88; PULSE 62–63; RESP 18–20; TEMP 36.1–36.6; O2SAT 96–98
[2024-10-31] MEDS: cloNIDine HCL 0.1 MG TABLET PO ×3 (03:09→21:58)
[2024-10-31] MEDS: Morphine Sulfate 4 MG/ML CARTRIDGE IVPUSH ×4 (03:09→20:56)
[2024-10-31] MEDS: vancomycin HCL 125 MG CAPSULE PO ×4 (03:21→20:56)
[2024-10-31] MEDS: metroNIDAZOLE 500 MG TABLET PO ×3 (06:20→21:58)
[2024-10-31] MEDS: Omeprazole 20 MG CAPSULE.DR PO (06:20)
[2024-10-31 07:27] LABS: Hemoglobin 10.5 g/dl (12.0-16.0); Mean Corpuscular HGB Conc 32.8 g/dl (31.0-35.0); Mean Corpuscular Volume 106.7 fL (80.0-98.0); Mean Platelet Volume 10.7 fL (9.4-12.3); Platelet Count 111 X10*3/uL (160-400); Red Cell Distribution Width 15.7 % (11.0-16.0)
[2024-10-31 07:31] LABS: Prothrombin Time 11.9 SEC (10.9-12.4)
[2024-10-31] MEDS: amLODIPine Besylate 5 MG TABLET PO (07:35)
[2024-10-31] MEDS: Sucralfate Oral Suspension 1 GM/10 ML ORAL.SUSP PO ×4 (07:35→20:56)
[2024-10-31] MEDS: Magnesium Oxide 400 MG TABLET PO ×2 (07:36→17:00)
[2024-10-31] MEDS: Cholecalciferol (Vitamin D3) 25 MCG TABLET 50 MCG PO (07:36)
[2024-10-31] MEDS: Escitalopram Oxalate 20 MG TABLET PO (07:37)
[2024-10-31] MEDS: Thiamine HCL 100 MG TABLET PO (07:37)
[2024-10-31] MEDS: Potassium Chloride ER 20 MEQ TAB.ER.PRT 40 MEQ PO (07:37)
[2024-10-31] MEDS: Folic Acid 1 MG TABLET PO (07:37)
[2024-10-31] MEDS: PHENobarbitaL 30 MG TABLET PO ×2 (07:37→20:56)
[2024-10-31] MEDS: Magnesium Sulfate/H2O 2 GM/50 ML PIGGYBACK IV ×2 (07:38→17:00)
[2024-10-31 07:57] LABS: Alanine Aminotransferase 15 U/L (0-31); Albumin Level 3.3 g/dL (3.5-5.0); Alkaline Phosphatase 137 U/L (39-117); Anion Gap 13 (12-20); Aspartate Amino Transferase 33 U/L (5-31); Bilirubin Direct < 0.2 mg/dL (0.0-0.5); Bilirubin Total 0.2 mg/dL (0.0-1.0); Blood Urea Nitrogen 4 mg/dL (9-16); Calcium 8.6 mg/dL (8.4-10.2); Carbon Dioxide 29 mmol/L (22-29); Chloride 100 mmol/L (96-108); Creatinine Clr Calc Pharmacy 93.3; Estimated Glomerular Filt Rate > 60; Glucose Random 149 mg/dL (60-115); Sodium 139 mmol/L (135-145); Total Protein 5.8 g/dL (6.5-8.0)
[2024-10-31 07:59] LABS: Magnesium 1.2 mg/dL (1.6-2.6); Potassium 2.9 mmol/L (3.3-5.1)
[2024-10-31] MEDS: Potassium Chloride ER 10 MEQ TABLET.ER PO (07:59)
--- NOTE | 2024-10-31 10:17 | HO.PM.IMPN ---
Subjective Subjective Date of Service: 10/31/24 Interval History: Was able to eat some solids but with pain and diarrhea Physical Exam Vital Signs: Vital Signs: Last Vital Signs Temp 97.2 F 10/31/24 07:12 Pulse 63 10/31/24 07:12 Resp 18 10/31/24 07:12 BP 173/83 H 10/31/24 07:35 Pulse Ox 98 10/31/24 07:12 O2 Del Method Room Air 10/31/24 07:12 BMI result Body Mass Index 21.0 Const: Other: Constitutional : Awake, interactive, looks in mild distress Neck : Normal inspection, Supple Cardiovascular : RRR, no JVP, no lower extremity edema Respiratory : good bilateral air entry, no crackles, wheezes or rhonchi Gastrointestinal: soft, lax, decreased bowel sounds, all over tenderness with no surgical signs Skin : Warm, Dry Neurological : Alert & oriented x3, No focal deficit Objective Data Active Medications Acetaminophen (Acetaminophen 325 Mg Tablet) 650 mg PO Q6H PRN PRN Reason: Pain, Mild 1-3,fever,headache Al Hydroxide/Mg Hydroxide (Magnesium Hydrox/Alum Hydrox 30 Ml Oral.Susp) 30 ml PO Q4H PRN PRN Reason: Heartburn Last Admin: 10/30/24 18:46 Dose: 30 ml Documented By: KAYLEE Amlodipine Besylate (Amlodipine Besylate 5 Mg Tablet) 5 mg PO DAILY [facility]; Protocol Last Admin: 10/31/24 07:35 Dose: 5 mg Documented By: IVY Calcium Carbonate (Calcium Carbonate 750 Mg Tab.Chew) 750 mg PO Q4H PRN PRN Reason: Heartburn Last Admin: 10/28/24 20:14 Dose: 750 mg Documented By: KRYS Ceftriaxone Sodium (Ceftriaxone Sodium 2 Gm Vial) 2 gm IVPUSH Q24H SAMANTHA Last Admin: 10/30/24 14:26 Dose: 2 gm Documented By: KAYLEE Clonidine HCl (Clonidine Hcl 0.1 Mg Tablet) 0.1 mg PO TID PRN; Protocol PRN Reason: Anxiety Last Admin: 10/31/24 03:09 Dose: 0.1 mg Documented By: JONEL Enoxaparin Sodium (Enoxaparin Sodium 40 Mg/0.4 Ml Syringe) 40 mg SUBCUT Q24H [facility] Last Admin: 10/30/24 14:26 Dose: 40 mg Documented By: BROColt Escitalopram Oxalate (Escitalopram Oxalate 20 Mg Tablet) 20 mg PO DAILY [facility] Last Admin: 10/31/24 07:37 Dose: 20 mg Documented By: IVY Folic Acid (Folic Acid 1 Mg Tablet) 1 mg PO DAILY [facility] Last Admin: 10/31/24 07:37 Dose: 1 mg Documented By: IVY Hydromorphone HCl (Hydromorphone Hcl 0.5 Mg/0.5 Ml Syringe) 0.5 mg SUBCUT Q6H PRN; Protocol PRN Reason: Pain, Moderate(Pain Scale 4-6) Magnesium Sulfate (Magnesium Sulfate/H2o) 2 gm in 50 mls @ 25 mls/hr IV ONCE ONE Stop: 10/31/24 20:05 Loperamide HCl (Loperamide Hcl 2 Mg Capsule) 2 mg PO Q4H PRN PRN Reason: Diarrhea Magnesium Oxide (Magnesium Oxide 400 Mg Tablet) [facility] Last Admin: 10/31/24 07:36 Dose: 400 mg Documented By: IVY Metronidazole (Metronidazole 500 Mg Tablet) 500 mg PO Q8H [facility] Last Admin: 10/31/24 06:20 Dose: 500 mg Documented By: JONEL Morphine Sulfate (Morphine Sulfate 4 Mg/Ml Cartridge) 4 mg IVPUSH Q4H PRN; Protocol PRN Reason: Pain, Severe (Pain Scale 7-10) Last Admin: 10/31/24 07:41 Dose: 4 mg Documented By: IVY Omeprazole (Omeprazole 20 Mg Capsule.) 20 mg PO DAILY@0630 [facility] Last Admin: 10/31/24 06:20 Dose: 20 mg Documented By: JONEL Ondansetron HCl (Ondansetron Hcl 4 Mg/2 Ml Vial) 4 mg IVPUSH Q8H PRN PRN Reason: Nausea and Vomiting Last Admin: 10/28/24 12:28 Dose: 4 mg Documented By: Corby Pharmacy Consult (Consult Rx Etoh Phenob Im/Po) 1 each MISCELLANE ONCE PRN; Protocol PRN Reason: Consult order Phenobarbital (Phenobarbital 30 Mg Tablet) 30 mg PO BID [facility]; Protocol Stop: 10/31/24 21:01 Last Admin: 10/31/24 07:37 Dose: 30 mg Documented By: IVY Phenobarbital (Phenobarbital 30 Mg Tablet) 30 mg PO DAILY [facility]; Protocol Stop: 11/02/24 09:01 Potassium Chloride (Potassium Chloride Er 10 Meq Tablet.Er) 10 meq PO DAILY [facility] Last Admin: 10/31/24 07:59 Dose: 10 meq Documented By: IVY Sucralfate (Sucralfate Oral Suspension 1 Gm/10 Ml Oral.Susp) 1 gm PO QID [facility] Last Admin: 10/31/24 07:35 Dose: 1 gm Documented By: IVY Thiamine HCl (Thiamine Hcl 100 Mg Tablet) 100 mg PO DAILY [facility] Last Admin: 10/31/24 07:37 Dose: 100 mg Documented By: IVY Trazodone HCl (Trazodone Hcl 100 Mg Tablet) 100 mg PO BEDTIME PRN PRN Reason: insomnia Last Admin: 10/30/24 23:04 Dose: 100 mg Documented By: JONEL Vancomycin HCl (Vancomycin Hcl 125 Mg Capsule) 125 mg PO Q6H [facility] Last Admin: 10/31/24 03:21 Dose: 125 mg Documented By: JONEL Vitamin D (Cholecalciferol (Vitamin D3) 25 Mcg Tablet) 50 mcg PO DAILY [facility] Last Admin: 10/31/24 07:36 Dose: 50 mcg Documented By: IVY Labs 10/31/24 06:34 10/31/24 06:34 Labs: Laboratory Results - last 24 hr 10/31/24 06:34 MCV 106.7 H MCH 35.0 H MCHC 32.8 RDW 15.7 Plt Count 111 L MPV 10.7 Absolute Nucleated RBC 0.000 Nucleated RBC % (auto) 0.0 PT 11.9 INR 1.0 Anion Gap 13 Estim Creat Clear Calc 93.3 Estimated GFR > 60 Random Glucose 149 H Calcium 8.6 Magnesium 1.2 L* Total Bilirubin 0.2 Direct Bilirubin < 0.2 AST 33 H ALT 15 Alkaline Phosphatase 137 H Total Protein 5.8 L Albumin 3.3 L Assessment and Plan (1) Abdominal pain: Status: Acute (2) Pancreatitis: Status: Acute (3) Diarrhea: Status: Acute (4) Nausea & vomiting: Status: Acute (5) Hypokalemia: Status: Acute (6) Hypomagnesemia: Status: Acute (7) Alcohol withdrawal: Status: Acute Plan 49F PMH of alcohol abuse, alcohol withdrawal seizures, hepatitis-C s/p?outpatient treatment,? pancreatic sufficiency, hypertension, GERD presented with abdominal pain and diarrhea Alcohol dependence with acute pancreatitis and acute withdrawal CT scan as reported, will need a follow up after resolution of inflammation to eval small reported lesion Pain management with Dilaudid Able to keep down solids but having profound imodium Acute colitis Not septic CT reporting Colonic mural thickening likely colitis from inflammatory infectious etiology. Unclear if bacterial\viral negative c. diff Started Flagyl and Ceftriaxone Keep on PO Vancomycin as prophylaxis acute hypomagnesemia acute hypokalemia replace and monitor HTN metoprolol, losartan DVT PPx Lovenox reason for continued hospitalization:hypokalemia Quality Stroke Does the patient have a stroke diagnosis?: No VTE Prior VTE?: No VTE Risk Level:: Medical - moderate - high VTE Device Contraindication: Treatment Not Indicated VTE Drug Contraindication: N/A - Med Ordered
--- NOTE | 2024-10-31 10:30 | MHC.CM.PN ---
Per ROUNDS discussion, Patient is not yet medically cleared for dc (electrolyte issues/diarrhea); home is the goal and CM will continue to follow.
--- NOTE | 2024-10-31 10:59 | MHC.RECOVRN ---
Met with pt to check in and provide support. Pt sitting in bed, awake, alert, easily engages in conversation, familiar with t/w from previous consults. Pt reports since initiating naltrexone after [facility] appt she has been able to reduce amount of alcohol. Pt reports she used to wake up and immediately want a shot and now is able to wait until 3-4PM to drink. Pt reports stress related to trying to sell her house, plan her wedding for 04/23/26, apply for social security, and re-establish SNAP benefits. Pt reports abdominal pain is improving, continues to have diarrhea. Pt looking forward to discharge, potentially tomorrow. Pt plans to present as walk in to the [facility] next week to follow up. Denies questions or concerns at this time. Discussed with Heide Paul APRN.
[2024-10-31] MEDS: cefTRIAXone sodium 2 GM VIAL IVPUSH (14:08)
[2024-10-31] MEDS: Enoxaparin Sodium 40 MG/0.4 ML SYRINGE SUBCUT (14:08)
[2024-10-31] MEDS: traZODone HCL 100 MG TABLET PO (23:35)
[2024-11-01] VITALS: BP 159/79; PULSE 63; RESP 20; TEMP 36.4; O2SAT 97
[2024-11-01 00:29] VITALS: BP 159/79; PULSE 63; RESP 20; TEMP 36.4; O2SAT 97
[2024-11-01] MEDS: Morphine Sulfate 4 MG/ML CARTRIDGE IVPUSH ×3 (02:55→12:43)
[2024-11-01] MEDS: vancomycin HCL 125 MG CAPSULE PO ×2 (02:56→10:36)
[2024-11-01 04:00] VITALS: BP 166/77; PULSE 58; RESP 20; TEMP 36.6; O2SAT 98
[2024-11-01 07:41] LABS: Hemoglobin 11.7 g/dl (12.0-16.0); Mean Corpuscular HGB Conc 32.5 g/dl (31.0-35.0); Mean Corpuscular Hemoglobin 34.9 pg (27.0-33.0); Mean Corpuscular Volume 107.5 fL (80.0-98.0); Mean Platelet Volume 10.5 fL (9.4-12.3); Platelet Count 148 X10*3/uL (160-400); Red Blood Count 3.35 X10*6/uL (4.20-5.50); White Blood Count 5.5 X10*3/uL (4.8-10.8)
[2024-11-01] MEDS: metroNIDAZOLE 500 MG TABLET PO (07:42)
[2024-11-01] MEDS: Omeprazole 20 MG CAPSULE.DR PO (07:42)
[2024-11-01 07:56] LABS: Blood Urea Nitrogen 4 mg/dL (9-16); Estimated Glomerular Filt Rate > 60; Glucose Random 98 mg/dL (60-115); Magnesium 1.6 mg/dL (1.6-2.6)
[2024-11-01 08:10] LABS: Anion Gap 12 (12-20); Carbon Dioxide 34 mmol/L (22-29); Chloride 103 mmol/L (96-108); Potassium 4.9 mmol/L (3.3-5.1); Sodium 144 mmol/L (135-145)
[2024-11-01 08:12] VITALS: BP 176/83; PULSE 61; RESP 20; TEMP 36.1; O2SAT 97
[2024-11-01] MEDS: Potassium Chloride ER 10 MEQ TABLET.ER PO (08:14)
[2024-11-01] MEDS: cloNIDine HCL 0.1 MG TABLET PO (08:15)
[2024-11-01] MEDS: Thiamine HCL 100 MG TABLET PO (08:15)
[2024-11-01] MEDS: amLODIPine Besylate 5 MG TABLET PO (08:15)
[2024-11-01] MEDS: Cholecalciferol (Vitamin D3) 25 MCG TABLET 50 MCG PO (08:15)
[2024-11-01] MEDS: Folic Acid 1 MG TABLET PO (08:15)
[2024-11-01] MEDS: Magnesium Oxide 400 MG TABLET PO (08:15)
[2024-11-01] MEDS: PHENobarbitaL 30 MG TABLET PO (08:15)
[2024-11-01] MEDS: Escitalopram Oxalate 20 MG TABLET PO (08:15)
[2024-11-01] MEDS: Sucralfate Oral Suspension 1 GM/10 ML ORAL.SUSP PO ×2 (08:15→12:44)
--- NOTE | 2024-11-01 08:54 | PM.DS ---
DS: Providers Provider Date of Service: 11/01/24 Date of admission: 10/27/24 14:35 Date of discharge: 11/01/24 Primary care physician: Ayala Patton MD Consults: 10/27/24 15:13 Addiction Medicine Routine Consulting Provider: Addiction Covering Reason for consultation: Alcoholism DS: Diagnosis Discharge Diagnosis (1) Abdominal pain: Status: Acute (2) Pancreatitis: Status: Acute (3) Diarrhea: Status: Acute (4) Nausea & vomiting: Status: Acute (5) Hypokalemia: Status: Acute (6) Hypomagnesemia: Status: Acute (7) Alcohol withdrawal: Status: Acute DS: Summary Hospital Course Hospital Course: from initial hpi: 49 years old lady with PMH of alcohol abuse, ? alcohol withdrawal seizures, hepatitis-C s/p?outpatient treatment,? pancreatic sufficiency, hypertension, GERD among others presenting to the hospital with 2 days of abdominal pain and diarrhea. The patient reports worsening pain since yesterday associated with nausea, vomiting and diarrhea. pain is all over her abdomen but mainly epigastric area rotating around and radiating back with no relieving factors. last drink last night. In ED found K of 2.3 and Mg of 1. CT scan showed evidence of pancreatitis and colitis. Lipase of 617. Started on Electrolytes replacement , IV fluids and pain medications. Will be admitted for further work up and treatment. hospital course: Patient was admitted for alcohol dependence with acute pancreatitis and acute withdrawal. She was treated with IV fluids and pain meds. Of note CT abdomen showed a small pancreatic lesion and should have follow-up dedicated pancreatic imaging in a few months. Diet was slowly advanced and she is now tolerating solids. Also noted to have acute colitis was treated with course of ceftriaxone and Flagyl, also given prophylactic p.o. vancomycin due to history of C diff. stool PCR was negative. We will hold off on further antibiotics on discharge. Course complicated by acute hypomagnesemia and acute hypokalemia due to alcohol use, this was replaced. Patient will continue supplement as outpatient. For hypertension was continued on metoprolol and losartan. Patient is feeling better and will be discharged home. Time Attestation Discharge Coordination Time (in mins): 34 Quality: Safe Use of Opioids Does Pt have an Active Cancer Diagnosis on the Problem List?: No Quality: Stroke Does the patient have a stroke diagnosis?: No Physical Exam Vital Signs: Vital Signs: Last Vital Signs Temp 97 F 11/01/24 08:12 Pulse 61 11/01/24 08:12 Resp 20 11/01/24 08:12 BP 176/83 H 11/01/24 08:12 Pulse Ox 97 11/01/24 08:12 O2 Del Method Room Air 11/01/24 08:12 BMI result Body Mass Index 21.0 General: AO X 3, no acute distress Resp: CTA bilateral, no accessory muscles used CVS: S1,S2,RRR GI: soft, non tender, non distended Neuro: motor grossly intact, alert Psych: appropriate affect, appropriate insight DS: Data Data Completed and Pending Completed studies during hospitalization [Text1]: Procedures Detoxification Services for Substance Abuse Treatment (09/26/24) Labs on day of discharge: Laboratory Results - last 24 hr 11/01/24 07:02 WBC 5.5 RBC 3.35 L Hgb 11.7 L Hct 36.0 L MCV 107.5 H MCH 34.9 H MCHC 32.5 RDW 16.0 Plt Count 148 L D MPV 10.5 Absolute Nucleated RBC 0.000 Nucleated RBC % (auto) 0.0 Sodium 144 Potassium 4.9 D Chloride 103 Carbon Dioxide 34 H Anion Gap 12 BUN 4 L Creatinine 0.56 Estim Creat Clear Calc 95.0 Estimated GFR > 60 Random Glucose 98 Calcium 10.0 D Magnesium 1.6 Discharge Plan Discharge Anticipated Discharge Date/Time: 11/01/24 08:50 Patient Disposition: Home, Self-Care Discharge Diagnosis: etoh pancreatitis Referrals: Ayala Patton MD [Primary Care Provider] - 1 Week Discharge Medications: New magnesium oxide 400 mg (241.3 mg magnesium) Tablet 400 mg PO BIDPC Qty: 180 0RF Continued naltrexone 50 mg tablet 50 mg PO DAILY Qty: 90 0RF pantoprazole 40 mg tablet,delayed release (DR/EC) 40 mg PO DAILY@0630 folic acid 1 mg tablet 1 mg PO DAILY cholecalciferol (vitamin D3) 50 mcg (2,000 unit) tablet 50 mcg PO DAILY clonidine HCl 0.1 mg tablet 0.1 mg PO TID PRN (Reason: Anxiety) citalopram 40 mg tablet 40 mg PO DAILY amlodipine 5 mg Tablet 5 mg PO DAILY Qty: 90 0RF Protocol: Hold for SBP< HOLD for SBP < : 90 thiamine HCl (vitamin B1) 100 mg tablet 100 mg PO DAILY potassium chloride 10 mEq capsule, extended release 10 meq PO DAILY Qty: 20 0RF sucralfate 100 mg/mL suspension 10 ml PO QID trazodone 100 mg tablet 100 mg PO BEDTIME PRN (Reason: insomnia) Discharge Orders: Discharge Order (Routine); Ordered 11/01/24 Ordered By: Carlos Lerma Diet: Low fat, low cholesterol Activity on Discharge: As tolerated Stand Alone Forms: Patient Portal Discharge page Print Language: [place]er Care Plan Goals: recovery Health Concerns: etoh Plan of Treatment: avoid etoh, low fat diet, dedicated pancreatic imaging in a few months to follow up lesion mentioned on CT abd Assessment: see above
--- NOTE | 2024-11-01 09:17 | MHC.CM.PN ---
PT TO DC HOME TODAY WITH NO SERVICES VIA PRIVATE TRANSPORT
[2024-11-01 11:35] VITALS: BP 140/70; PULSE 64; RESP 16; TEMP 36.3; O2SAT 99
== END 2024-11-01 13:19 | disposition home or self-care (01) | DRG 282 ==
LOC: HO.ED 14:09 → HO.EDOVER 14:53 → HO.IMC 19:35
PROVIDERS: Physician Assistant Medical; Admitting Provider Student in an Organized Health Care Education/Training Program; Emergency Provider Emergency Medicine; PCP Internal Medicine; Visit Provider Internal Medicine
DX: K85.20 Alcohol induced acute pancreatitis without necrosis or infection (principal); D69.6 Thrombocytopenia, unspecified; E83.42 Hypomagnesemia; F10.239 Alcohol dependence with withdrawal, unspecified; F17.210 Nicotine dependence, cigarettes, uncomplicated; A09 Infectious gastroenteritis and colitis, unspecified; E87.6 Hypokalemia; I10 Essential (primary) hypertension; Z71.6 Tobacco abuse counseling; Z79.899 Other long term (current) drug therapy
CPT/HCPCS: 36415; 74177; 80048; 80053; 80076; 83690; 83735; 85025; 85027; 85610; 87493; 93005; 99285; J0696; J1171; J1650; J1836; J2270; J2405; J2470; J2560; J3475; J3480; J7120; Q9967

== ENCOUNTER → 2024-10-27 10:30 | Outpatient (BNV) | payer OTHER, SELFPAY | PROVIDERS: Admitting Provider Student in an Organized Health Care Education/Training Program; Emergency Provider Emergency Medicine; PCP Internal Medicine; Visit Provider Radiology Diagnostic Radiology | DX: K86.9 Disease of pancreas, unspecified (principal) | CPT/HCPCS: 74177 ==

== ENCOUNTER 2024-10-27 14:35 | Outpatient (BNV) | payer OTHER, SELFPAY | END 2024-10-28 01:46 | PROVIDERS: Admitting Provider Student in an Organized Health Care Education/Training Program; Emergency Provider Emergency Medicine; PCP Internal Medicine; Visit Provider Internal Medicine Cardiovascular Disease | DX: R94.31 Abnormal electrocardiogram [ECG] [EKG] (principal) | CPT/HCPCS: 93010 ==

== ENCOUNTER → 2024-10-27 14:35 | Outpatient (BNV) | payer OTHER, SELFPAY | PROVIDERS: Admitting Provider Student in an Organized Health Care Education/Training Program; Emergency Provider Emergency Medicine; PCP Internal Medicine; Visit Provider Student in an Organized Health Care Education/Training Program | DX: R11.0 Nausea (principal); R10.9 Unspecified abdominal pain; K85.90 Acute pancreatitis without necrosis or infection, unspecified; E87.6 Hypokalemia; E83.42 Hypomagnesemia; F10.20 Alcohol dependence, uncomplicated | CPT/HCPCS: 99223 ==

== ENCOUNTER 2024-11-20 22:05 | Inpatient (IN) | payer OTHER, SELFPAY ==
--- NOTE | ~2024-11-20 | CT_ITS ---
EXAMINATION: CT ABDOMEN AND PELVIS WITHOUT CONTRAST CLINICAL INFORMATION: Reevaluate for colitis. COMPARISON: 10/27/2024. 09/25/2024. TECHNIQUE: Multidetector volumetric imaging was performed from the superior aspect of the liver through the pubic symphysis. Sagittal and coronal reformatted images were obtained on the technologist's workstation. This CT examination was performed using dose optimization techniques as appropriate, variously including the following: *Automated exposure control *Adjustment of mA and/or kV according to patient size (this includes techniques or standardized protocols for targeted exams where dose is matched to indication/reason for exam; i.e. extremities or head) *Use of iterative reconstruction technique FINDINGS: LUNG BASES: The visualized lung bases are unremarkable. LIVER, GALLBLADDER, AND BILIARY TREE: The liver is mildly enlarged, unchanged. Previously seen fatty infiltration has resolved. Allowing for noncontrast exam, no focal hepatic lesion or biliary ductal dilatation is present. The gallbladder is unremarkable with no evidence of radiopaque gallstones, gallbladder wall thickening, or obvious pericholecystic inflammatory changes. PANCREAS: Previously seen inflammation surrounding the head and uncinate process of the pancreas has resolved. Pancreas now has a normal noncontrast appearance. No lesion identified. SPLEEN: Normal noncontrast appearance. Small splenule anteriorly. ADRENAL GLANDS: Unremarkable. KIDNEYS AND URETERS: The kidneys are normal in size, shape, and attenuation. No hydronephrosis, hydroureter, or calculi seen. No perinephric stranding. BLADDER: Poorly distended but grossly normal. GASTROINTESTINAL TRACT: -Previously seen thickening of the colon is no longer evident. Colon has a normal course and caliber without wall thickening or inflammation. There are a few scattered diverticula, most notable in the descending and sigmoid regions. Normal rectum. -Normal appendix visualized. -Small bowel is normal in caliber and course without wall thickening or inflammation. -The stomach is distended with a recent meal. No duodenal abnormalities. ABDOMINAL WALL: -Sequela of subcutaneous injection inferior lateral ventral abdominal wall. -No hernia. LYMPH NODES: Normal. VASCULAR: Moderate atheromatous calcification of the aorta and iliac arteries without aneurysm. PELVIC VISCERA: -Uterus demonstrates a well-positioned IUD device. No adnexal masses. Trace free pelvic fluid, nonspecific. OSSEOUS STRUCTURES: -No suspicious lytic or blastic bone lesions. Stable degenerative spinal changes most notable at T10-T11, with facet changes most notable L5-S1. There is mild degenerative hip joint changes. CT/CT abdomen pelvis wo IV con IMPRESSION: 1. Resolution of previously seen mild acute pancreatitis of the head and uncinate process. 2. Resolution of previously present fatty infiltration of the liver. There is mild persistent hepatomegaly without focal lesion. 3. Resolution of previously described colonic wall thickening. No current evidence of colonic inflammation. Mild diverticulosis. Electronically signed by: Dallas Dxion MD 11/25/2024 11:58 AM EST
[2024-11-20 22:06] VITALS: BP 182/105; PULSE 117; RESP 18; TEMP 36.9; O2SAT 98; BMI 18.9
[2024-11-20 22:18] LABS: MANUAL DIFF FLAG NO
[2024-11-20 22:19] LABS: Basophils Percent Auto 0.4 % (0-2); Eosinophils Percent Auto 0.1 % (0-4); Hemoglobin 14.4 g/dl (12.0-16.0); Imm Gran Abs Auto 0.03 X10*3/uL (0.00-0.03); Imm Gran Pct Auto 0.4 % (0.0-0.4); Lymphocytes Absolute Auto 1.5 X10*3/uL (1.2-4.9); Lymphocytes Percent Auto 17.8 % (20-40); Mean Corpuscular HGB Conc 36.9 g/dl (31.0-35.0); Mean Corpuscular Hemoglobin 35.3 pg (27.0-33.0); Mean Corpuscular Volume 95.6 fL (80.0-98.0); Mean Platelet Volume 9.3 fL (9.4-12.3); Monocytes Absolute Auto 0.4 X10*3/uL (0.1-1.2); Monocytes Percent Auto 4.8 % (2-11); Neutrophils Absolute Auto 6.4 x10*3/uL (2.0-8.3); Neutrophils Percent Auto 76.5 % (45-73); Platelet Count 172 X10*3/uL (160-400); Red Blood Count 4.08 X10*6/uL (4.20-5.50); Red Cell Distribution Width 14.2 % (11.0-16.0); White Blood Count 8.3 X10*3/uL (4.8-10.8)
[2024-11-20 22:55] LABS: Alanine Aminotransferase 19 U/L (0-31); Albumin Level 4.1 g/dL (3.5-5.0); Alkaline Phosphatase 162 U/L (39-117); Anion Gap 27 (12-20); Aspartate Amino Transferase 83 U/L (5-31); Bilirubin Total 0.6 mg/dL (0.0-1.0); Blood Urea Nitrogen 10 mg/dL (9-16); Calcium 9.4 mg/dL (8.4-10.2); Carbon Dioxide 14 mmol/L (22-29); Chloride 102 mmol/L (96-108); Creatinine Clr Calc Pharmacy 86.9; Estimated Glomerular Filt Rate > 60; Glucose Random 126 mg/dL (60-115); Lipase 17 U/L (8-78); Potassium 2.7 mmol/L (3.3-5.1); Sodium 140 mmol/L (135-145); Total Protein 7.6 g/dL (6.5-8.0)
--- NOTE | 2024-11-20 22:57 | ECG_ITS ---
Test Reason : ELECTROLYTE ABNORMALITY Blood Pressure : */* mmHG Vent. Rate : 96 BPM Atrial Rate : 96 BPM P-R Int : 202 ms QRS Dur : 86 ms QT Int : 380 ms P-R-T Axes : 71 44 50 degrees QTcB Int : 480 ms Normal sinus rhythm Prolonged QT Abnormal ECG When compared with ECG of 28-Oct-2024 01:46, No significant change was found Referred By: Eleazar Mason Electronically Signed By: DESMOND HILL MD
[2024-11-20] MEDS: Magnesium Sulfate/H2O 2 GM/50 ML PIGGYBACK IV (23:01)
[2024-11-20] MEDS: LORazepam 2 MG/ML VIAL IVPUSH (23:01)
[2024-11-20] MEDS: ondansetron HCL 4 MG/2 ML VIAL IVPUSH (23:01)
[2024-11-20 23:08] VITALS: BP 183/102; PULSE 95; RESP 20; O2SAT 97
[2024-11-20 23:08] LABS: Ethanol < 10 mg/dL
[2024-11-20 23:25] VITALS: BP 153/95; PULSE 99
--- OUTSIDE RECORDS SUMMARY | 2024-11-20 23:44 | XMS_ITS | Data Portability ---
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 14:59:12 On examination - a rash Completed 200507/13/2010 Clara Jeff NP [address] [place], [address], [facility] 6 14:59:12 Abnormal weight loss 051260948 Completed 200607/13/2010 Clara Jeff NP [address] [place], [address], [facility] 6 14:59:12 Abnormal cervical Papanicolao u smear [id number] Completed 200508/03/2011 Clara Jeff NP [address] [place], [address], [facility] 6 14:59:12 Contusion of multiple sites [id number] Completed 07/13/2010 Clara Jeff NP [facility] [address], [place], [address], [facility] 6 14:59:12 Underweight 891343502 Completed 07/13/2010 Leonel Jeff NP [facility] [address], [place], [address], [facility] 6 14:59:12 Abnormal cervical Papanicolao u smear 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 [id number] Completed 200007/13/2010 Clara Jeff NP [facility] [address], [place], [address], [facility] 6 14:59:12 Elevated blood-press ure reading without diagnosis of hypertensio n [id number] Completed 200307/13/2010 Clara Jeff NP [facility] [address], [place], [address], [facility] 6 14:59:12 Low back pain 432682299 Completed 200307/13/2010 Clara Jeff NP [address] [place], [place] [address]Bern[place], [place], [address], [facility] 6 14:59:12 Dysuria [id number] Completed 200407/13/2010 Clara Jeff NP [facility] [address], [place], [address], [facility] 6 14:59:12 Injury of elbow 464822931 Completed 200407/13/2010 Clara Jeff NP [facility] [address], [place], [address], [facility] 6 14:59:12 Backache [id number] Completed 07/13/2010 Clara Jeff NP [facility] [address], [place], [address], [facility] 6 14:59:12 Streptococc al sore throat 17109625 Completed 200207/13/2010 Clara Jeff NP [address] [place], [address], [facility] 6 14:59:12 Blood in urine [id number] Completed 200307/13/2010 Clara Jeff NP [address] [place], [place] [address], [address], [facility] 6 14:59:12 Vaginitis and vulvovagini tis Completed 200007/13/2010 Clara Jeff NP [address] [place], [place] [address], [address], [facility] 6 14:59:12 Problem Notes None recorded. Procedures Surgical History Date Name Laterality Status Provider Name and Address Organization Details Recorded Time 7 Smoking cessation counseling completed Casandra Callejas MA [facility] 12/06/2016 14:05:33 7 POC Urinalysis Testing completed Casandra Callejas MA [facility] 12/06/2016 14:24:26 7 Smoking cessation counseling completed Casandra Callejas MA [facility] 11/15/2016 15:41:56 7 Carbon Monoxide Testing completed Casandra Callejas MA [facility] 11/15/2016 15:49:39 6 Smoking cessation counseling completed Casandra Callejas MA [facility] 12/21/2015 14:52:51 5 Smoking cessation counseling completed Casandra Callejas MA [facility] 05/20/2015 11:15:08 5 Smoking cessation counseling completed Casandra Callejas MA [facility] 03/09/2015 08:02:25 5 Smoking cessation counseling completed Adriana Whitten LPN [facility] 02/09/2015 13:58:20 5 Smoking cessation counseling completed Casandra Falcon LPN [facility] 01/14/2015 10:47:34 5 Smoking cessation counseling completed Muna Lawton [facility] 11/02/2014 09:34:45 4 Smoking cessation counseling completed Adriana Whitten [employer] [facility] 03/10/2014 14:42:34 4 Smoking cessation counseling completed Hien Cole [facility] 02/06/2014 15:26:49 3 Smoking cessation counseling completed Adriana Whitten [facility] 07/15/2013 15:06:59 3 Smoking cessation counseling completed Carla Sadler [facility] 05/13/2013 12:03:25 3 Smoking cessation counseling completed Libertad Machado [facility] 04/11/2013 13:37:41 3 Smoking cessation counseling completed Libertad Machado [facility] 12/27/2012 13:34:59 3 Smoking cessation counseling completed Libertad Machado [facility] 11/08/2012 13:32:15 1 Smoking cessation counseling completed Luli Thompson [facility] 08/04/2011 14:06:05 1 Smoking cessation counseling completed Adriana Whitten [facility] 04/26/2011 15:13:13 Imaging Results Imaging Date Name Status LastModified by Organization Details LastModified Time 12/28/2015 ultrasound, abdominal completed [address] (Imaging) [address] [place], [address], 12/30/2015 08:31:48 12/28/2015 ultrasound, pelvic transvaginal completed [address] (Imaging) [address] [place], [address], 12/30/2015 08:31:49 02/14/2016 x-ray, chest completed [facility] (Imaging) [address] [place], [address], 11/15/2016 15:54:45 05/03/2016 screening-bilate ral mammography completed [facility] [address] [place], [address], 11/15/2016 15:54:45 05/10/2016 MAMMO, diagnostic, digital, unilateral completed [facility] [address] [place], [address], 11/15/2016 15:54:45 05/10/2016 MAMMO, diagnostic, digital, unilateral completed [facility] [address] [place], [address], 11/15/2016 15:54:45 11/13/2016 US, gallbladder completed [facility] [address] [place], [address], 11/15/2016 15:54:45 Procedure Notes None recorded. Medical Equipment None Reported. Allergies No known drug allergies Medications Name Sig Start Date Stop Date Status Note LastModified by Organization Details LastModified Time losartan 50 mg tablet TAKE 1 TABLET BY MOUTH EVERY DAY active Not Available Not Available No t Available carisopro dol 350 mg tablet Take 1 tablet twice a day by oral route as needed. active Not Available Not Available No t Available cyclobenz aprine 10 mg tablet TAKE 1 TABLET BY MOUTH TWICE DAILY NEEDED active Not Available Not Available No t Available buspirone 5 mg tablet active Not Available Not Available Not Available bupropion HCl SR 150 mg tablet,12 hr sustained -release TK 1 T PO BID active Not Available Not Available No t Available citalopra m 40 mg tablet TK 1 T PO D active Not Available Not Available No t Available trazodone 50 mg tablet Take 1-2 tablet(s ) QHS by oral route prn. active Not Available Not Available No t Available Necon 35 (28) 1 mg-35 mcg tablet 2006 active Take 1.00 tabs daily Not Available Not Available Not Available fluconazo le 150 mg tablet Take 1 tab (150 mg ) by oral route as single dose as directed ; may repeat in 5 days if symptoms not resolved . 12/06 completed Not Available Not Available Not Available citalopra m 10 mg tablet Take 1 tablet every day by oral route as directed for 30 days. 2012 active Not Available Not Available Not Avai lable ketotifen 0.025 % (0.035 %) eye drops INSTILL 1 DROP INTO BOTH EYES BID active Not Available Not Available No t Available fluocinol one 0.01 % topical cream Apply a thin film topicall y to affected area bid. 2012 active Not Available Not Available Not Avai lable metronida zole 0.75 % (37.5 mg/5 gram) vaginal gel active Not Available Not Available Not Available ciproflox acin 500 mg tablet Take 1 tablet twice a day by oral route for 3 days. active Not Available Not Available No t Available sulfameth oxazole 800 mg-trimet hoprim 160 mg tablet TK 1 T PO BID FOR 7 DAYS UTD active Not Available Not Available No t Available tramadol 50 mg tablet TK 1 T PO Q 6 H PRN 11/15 completed Not Available Not Available Not Available triamcino lone acetonide 0.1 % topical cream 12/22 completed Take 1.00 applics twice daily Not Available Not Available Not Available ketorolac 30 mg/mL (1 mL) injection solution Inject 1 mL x 1 by intramus cular route. 2014 active Not Available Not Available Not Avai lable nortripty line 25 mg capsule TAKE ONE CAPSULE BY MOUTH EVERY EVENING FOR 30 DAYS 02/09 completed LAST DM PHA 02/06/14 LAST DM 08/28/14 LABS 06/02/14 Not Available Not Available Not Available oxycodone -acetamin ophen 5 mg-325 mg tablet Take 1 tablet every 6 hours by oral route for 15 days. 11/11 completed Not Available Not Available Not Available citalopra m 20 mg tablet Take 1 tablet every day by oral route as directed for 30 days. 2012 active Not Available Not Available Not Avai lable Deep Sea Nasal 0.65 % spray aerosol INSTILL 1 SPRAY IEN PRF CONGESTI ON active Not Available Not Available No t Available prednisol one acetate 1 % eye drops,linsey pension active Not Available Not Available Not Available lorazepam 0.5 mg tablet TAKE 1 TABLET BY MOUTH THREE TIMES DAILY NEEDED active Not Available Not Available No t Available trazodone 100 mg tablet TK 1 T PO QHS active Not Available Not Available No t Available cephalexi n 500 mg capsule TK 1 C PO BID FOR 5 DAYS UTD active Not Available Not Available No t Available pantopraz ole 40 mg tablet,de layed release TK 1 T PO D active Not Available Not Available No t Available nortripty line 10 mg capsule Take 2 capsules 4 times a day by oral route. 02/06 completed Not Available Not Available Not Available lisinopri l 10 mg tablet TAKE 1 TABLET BY MOUTH EVERY DAY DIRECTED active Not Available Not Available No t Available ibuprofen 200 mg tablet Take 4 tablets twice a day by oral route. active Not Available Not Available No t Available omeprazol e 20 mg capsule,d elayed release TAKE 1 CAPSULE BY MOUTH EVERY DAY IN THE MORNING ON AN EMPTY STOMACH WITH WATER 20 MINUTES BEFORE EATING active Not Available Not Available No t Available hydroxyzi ne HCl 25 mg tablet TK 1 T PO TID PRN 12/06 completed Not Available Not Available Not Available mupirocin 2 % topical ointment active Not Available Not Available Not Available ondansetr on 4 mg disintegr ating tablet 1 tablet as needed active Not Available Not Available No t Available naproxen 500 mg tablet TK 1 T PO BID PRN active Not Available Not Available No t Available Artificia l Tears (polyviny l alcohol) 1.4 % eye drops active Not Available Not Available Not Available tobramyci n 0.3 %-dexamet hasone 0.1 % eye drops,linsey pension active Not Available Not Available Not Available oxycodone 5 mg tablet Take 1 tablet 3 times a day by oral route as needed. 2012 active Not Available Not Available Not Avai lable neomycin 3.5 mg/g-poly myxin B 10,000 unit/g-de xameth 0.1 % eye oint active Not Available Not Available Not Available Adilene-BE 0.35 mg tablet TK 1 T PO D active Not Available Not Available No t Available ribavirin 200 mg tablet Take 2 tablets twice a day by oral route. active Not Available Not Available No t Available cyclobenz aprine 5 mg tablet Take 1 - 2 tabs po tid prn pain. May take at hs only if causes drowsine ss prn back spasms 07/16 completed Not Available Not Available Not Available Readi-Cat 2 2.1 % (w/v), 2.0 % (w/w) oral suspensio n TAKE DIRECTED BY THE RADIOLOG Y DEPARTME NT 11/15 completed Not Available Not Available Not Available nitrofura ntoin monohydra te/macroc rystals 100 mg capsule active Not Available Not Available Not Available interfero n zachary-2b takes about 180 mcg's injectio n active Not Available Not Available No t Available Chantix Starting Month Gerald 0.5 mg (11)-1 mg (42) tablets in dose pack 2007 active Take 1.00 tabs as directed Not Available Not Available Not Available Chantix Continuin g Month Gerald 1 mg tablet 2007 active Take 1.00 tabs twice daily Not Available Not Available Not Available Vitals Date Recorded Body height Provider Name an d Address Organization Details Last Updated DateTime 11/15/2016 160.02 cm Casandra Callejas MA [facility] 11/15/2016 15:39:23 Date Recorded Body weight Provider Name an d Address Organization Details Last Updated DateTime 11/15/2016 43467.42 g Casandra Callejas MA [facility] 11/15/2016 15:41:33 Date Recorded Body mass index (BMI) Provider Name and Address Organization Details Last Updated DateTime 11/15/2016 21.7 kg/m2 Casandra Callejas MA [facility] 11/15/2016 15:41:34 Date Recorded Heart rate Provider Name an d Address Organization Details Last Updated DateTime 11/15/2016 68 /min Casandra Callejas MA [facility] 11/15/2016 15:47:04 Date Recorded Body height Provider Name an d Address Organization Details Last Updated DateTime 12/06/2016 160.02 cm Casandra Callejas MA [facility] 12/06/2016 14:02:58 Date Recorded Body weight Provider Name an d Address Organization Details Last Updated DateTime 12/06/2016 32843.89 g Casandra Callejas MA [facility] 12/06/2016 14:04:31 Date Recorded Body mass index (BMI) Provider Name and Address Organization Details Last Updated DateTime 12/06/2016 22 kg/m2 Casandra Callejas MA [facility] 12/06/2016 14:04:32 Date Recorded Heart rate Provider Name an d Address Organization Details Last Updated DateTime 12/06/2016 68 /min Casandra Callejas MA [facility] 12/06/2016 14:06:36 Date Recorded Body height Provider Name an d Address Organization Details Last Updated DateTime 08/16/2015 160.02 cm Hien Cole MA [facility] 08/16/2015 15:57:56 Date Recorded Body weight Body mass index (BMI) Provider Name and Address Organization Details Last Updated DateTime 08/16/2015 91684.043360 g 23.6 kg/m2 Hien ElyKelseySUMAYA [facility] 08/16/2015 16:00:35 Date Recorded Heart rate Systolic blood pressure Diastolic blood pressure Provider Name and Address Organization Details Last Updated DateTime 08/16/2015 70 /min 110 mm[Hg] 64 mm[Hg] Hien MercedesdoSUMAYA [facility] 08/16/2015 16:09:24 Date Recorded Body height Provider Name an d Address Organization Details Last Updated DateTime 12/21/2015 160.02 cm Casandracolby Callejas MA [facility] 12/21/2015 14:49:10 Date Recorded Body mass index (BMI) Body weight Provider Name and Address Organization Details Last Updated DateTime 12/21/2015 23.3 kg/m2 84051.156957 g Casandra CallejasSUMAYA [facility] 12/21/2015 14:51:06 Date Recorded Oxygen saturation Oxygen saturation in Arterial blood by Pulse oximetry Heart rate Provider Name and Address Organization Details Last Updated DateTime 12/21/2015 98 % 98 % 80 /min Casandra CallejasSUMAYA [facility] 12/21/2015 14:55:04 Date Recorded Body height Provider Name an d Address Organization Details Last Updated DateTime 02/14/2016 160.02 cm Casandra CallejasSUMAYA [facility] 02/14/2016 13:42:23 Date Recorded Body mass index (BMI) Body weight Provider Name and Address Organization Details Last Updated DateTime 02/14/2016 23 kg/m2 74998.0081 g Casandra Callejas MA [facility] 02/14/2016 13:43:52 Date Recorded Heart rate Systolic blood pressure Diastolic blood pressure Provider Name and Address Organization Details Last Updated DateTime 02/14/2016 60 /min 138 mm[Hg] 86 mm[Hg] Casandra Callejas MA [facility] 02/14/2016 13:46:31 Date Recorded Systolic blood pressure Diastolic blood pressure Provider Name and Address Organization Details Last Updated DateTime 11/15/2016 116 mm[Hg] 70 mm[Hg] Casandra Callejas MA [facility] 11/15/2016 15:46:00 Date Recorded Systolic blood pressure Diastolic blood pressure Provider Name and Address Organization Details Last Updated DateTime 12/06/2016 114 mm[Hg] 72 mm[Hg] Casandra Callejas MA [facility] 12/06/2016 14:06:11 Date Recorded Systolic blood pressure Diastolic blood pressure Provider Name and Address Organization Details Last Updated DateTime 12/21/2015 122 mm[Hg] 70 mm[Hg] Casandra Callejas MA [facility] 12/21/2015 14:52:20 Social History Question Answer Notes LastModified by Organizat ion Details LastModified Time Tobacco Smoking Status Current Every Day Smoker 1 ppd Clara Jeff NP [address] [place] [address], [id number], [facility] 02/10/2011 13:57:04 Do You Have An Advance Directive? No Given 08/04/11 [email or web address] Information not available 07/14/2010 What Is Your Level Of Alcohol Consumption? Heavy Six Pack Daily . Information not available 12/27/2012 Do You Wear A Helmet When Biking? Yes Information not available 02/14/2016 What Is Your Level Of Caffeine Consumption? Occasional Information not available 02/14/2016 How Much Tobacco Do You Chew? None [email or web address] Information not available 08/16/2015 What Type Of Diet Are You Following? 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 4 Information not available 12/27/2012 Are There Any Guns Present In Your Home? No Information not available 02/09/2015 Live Alone Or With Others? With Others Father, Son Information not available 08/04/2011 Does The Patient Have Difficulty Speaking Spanish? No Information not available 08/30/2014 Does The Patient Have Difficulty Reading Spanish? No Information not available 08/30/2014 Patient Has Health Care Proxy Signed And In Chart No Form Given To Pt 12/27/12, 02/09/15, 02/14/16 [email or web address] Information not available 12/27/2012 Marital Status Single Engaged Informatio n not available 08/30/2014 Mosquito Repellent Used Routinely Yes Information not available 02/09/2015 How Many Children Do You Have? 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 10-19packyears Information not available 02/09/2015 Seat Belts Used Routinely Yes Information not available 02/09/2015 Smoke Alarm In Home Yes Information not available 02/09/2015 General Stress Level High Information not available 02/14/2016 Do You Use Sunscreen Routinely? Yes Information not available 02/09/2015 How Many Years Have You Smoked Tobacco? 15 Information not available 02/09/2015 Sex: Unknown Functional Status None recorded. Mental Status None recorded. Family History Relationship Description Onset Age of this Age Resolved Age Notes LastModified by Organization Details LastModified Time Father Cerebrovascu lar accident [email or web address] Not available 14:59:20 Father Hypertensive disorder [email or web address] Not available 2015 14:59:20 Mother Hypertensive disorder 60 [email or web address] Not available 2015 14:59:20 Notes:Last Family History Re corded by [email or web address] on 26-JUN-08 Cardiovascular: Family history is remarkable for hypertension. Psychiatric: Family history is remarkable for drug abuse. Cancer: Family history is remarkable for lung cancer. maternal aunt Family history is remarkable for breast cancer. She has 1 maternal aunts who had breast cancer. Dx at 48 y.o. Medical History Condition Response Hepatitis C Y Anxiety Y GASTROINTESTINAL Y Hypertension Y Depression Y Gynecological HistoryNo gynecological history recorded. Obstetrics History GPAL:G 0 P 0 0 0 0 Immunizations Vaccine Type Date Status Note Provider Nam e and Address Organization Details Recorded Time Hep B, unspecified formulation 4 completed Not Available [facility] 09/13/2011 05:21:07 pneumococcal polysaccharide PPV23 1 completed Not Available [facility] 11/15/2019 02:25:02 Tdap 8 completed Not Available [facility] 09/13/2011 05:22:52 Past Encounters Encounter ID Performer Location Encounter Start Date Encounter Closed Date Diagnosis/Indication Diagnosis SNOMED-CT Code Diagnosis ICD10 Code Diagnosis Note [id number] [place] [facility] [place] [address] [place] [address] 11/16/2000 10:00:00 11/18/2008 02:02:29 [id number] [place] [facility] [place] [address] [place] [address] 01/10/2001 14:00:00 11/18/2008 02:02:29 [id number] [place] [facility] [place] [address] [place] [address] 05/10/2001 10:00:00 11/18/2008 02:02:29 [id number] [place] [facility] [place] [address] [place] [address] 05/28/2001 16:00:00 11/18/2008 02:02:29 [id number] [place] [facility] [place] [address] [place] [id number] 07/10/2001 17:45:00 11/18/2008 02:02:29 [id number] [place] [facility] [place] [address] [place] [address] 01/17/2002 12:15:00 11/18/2008 02:02:29 [id number] [place] [facility] [place] [address] [place] [address] 04/17/2002 10:20:07 11/18/2008 02:02:29 [id number] [place] [facility] [place] [address] [place] [address] 12/18/2002 14:54:56 11/18/2008 02:02:29 [id number] [facility] [place] [facility] [place] [address] [place] [address] 12/18/2002 00:00:00 11/18/2008 02:02:29 [id number] [facility] [place] [address] [place] [id number] 08/17/2003 14:05:05 08/19/2003 16:27:37 [id number] [facility] [place] [address] [place] [address] 08/17/2003 00:00:00 11/18/2008 02:02:29 [id number] [facility] [place] [address] [place] [id number] 11/11/2003 15:26:51 11/12/2003 09:09:15 [id number] [facility] [place] [address] [place] [id number] 11/26/2003 12:59:26 11/27/2003 09:31:46 [id number] FP [facility] [place] [address] [place] [id number] 12/09/2003 14:15:08 12/10/2003 09:13:45 [id number] [facility] [place] [address] [id number] 01/08/2004 14:12:01 01/11/2004 09:36:31 [id number] [facility] , [facility] [place] [address] [place] [address] 12/23/2004 12:44:21 12/26/2004 08:03:16 [id number] FP [facility] [address] [place] [address] 1 12/23/2004 11:49:50 12/23/2004 17:48:11 [id number] [facility] , [facility] [address] [place] [address] 01/23/2005 16:09:16 01/23/2005 16:13:38 [id number] FP [facility] [address] [place] [address] 1 01/23/2005 15:20:56 01/24/2005 08:55:33 [id number] FP [facility] [address] MARLIJeanSUMAYA [address] 1 02/10/2005 15:21:10 02/13/2005 08:51:43 [id number] FP [facility] [address] KAURAMANDAJean SUMAYA [address] 1 07/14/2005 14:30:31 07/17/2005 10:48:35 [id number] FP, [facility] [address] [place] [address] 1 09/05/2005 16:37:12 09/15/2005 13:46:23 [id number] FP [facility] [address] [place] [address] 1 02/12/2006 10:22:06 02/13/2006 09:06:45 [id number] FP [facility] [place] [address] 1 02/26/2006 16:07:53 02/27/2006 08:49:54 [id number] FP [facility] [address] [place] [address] 1 02/28/2006 13:51:39 03/02/2006 08:24:12 [id number] FP [facility] [place] [place] [address] 1 03/16/2006 14:09:59 03/19/2006 08:27:36 [id number] FP [facility] [place] [address] 1 08/10/2006 13:51:26 08/13/2006 08:47:12 [id number] FP, [facility] [place] [address] 1 08/22/2006 14:40:10 08/23/2006 08:16:41 [id number] FP, [facility] [place] [address] 1 09/26/2006 13:41:51 09/27/2006 08:25:14 [id number] FP [facility] [place] [address] 1 02/22/2007 15:09:10 02/25/2007 07:56:58 [id number] FP, [facility] [place] [address] 1 04/02/2007 13:05:30 04/04/2007 07:38:40 [id number] FP [facility] [address] QUINONEZJean SUMAYA [address] 1 06/11/2007 13:52:41 06/11/2007 17:08:59 [id number] [facility] [place] [address] [place] [address] 1 06/11/2007 14:23:28 06/11/2007 14:52:40 [id number] FP, [facility] [place] [address], SUMAYA [address] 1 09/02/2007 14:05:55 09/04/2007 15:36:31 [id number] FP, [facility] [address] [place], SUMAYA [address] 1 11/08/2007 09:23:38 11/18/2008 02:02:29 [id number] FP, [facility] [address] [place] [address] [place] [address] 1 06/26/2008 10:08:15 11/18/2008 02:02:29 [id number] FP, [facility] [address] [place] [address] [place] [address] 1 12/22/2008 16:09:59 12/24/2008 11:24:18 [id number] Iliana LAU [facility] [place] [address] [place] [address] [place] [address] 1 07/02/2009 15:39:57 07/06/2009 14:56:08 [id number] Iliana LAU [facility] [address] 1 07/14/2010 10:47:54 07/14/2010 12:01:21 [id number] [facility] [place] [address] 1 10/27/2010 15:08:19 10/27/2010 16:50:23 [id number] FP [facility] [address] [place] [address] [address] [place], SUMAYA [address] 1 01/20/2011 14:33:02 01/20/2011 16:06:09 [id number] [facility] [place] [address] 1 02/10/2011 13:43:48 02/10/2011 15:41:27 [id number] , [facility] [place] [address] 1 03/24/2011 15:41:59 03/24/2011 16:51:40 [id number] [facility] , [facility] [address] [place] [address] 1 04/13/2011 12:33:47 04/14/2011 11:16:32 [id number] FP [facility] [address] [place] [address] [place] [address] 1 04/26/2011 15:06:38 04/26/2011 17:02:47 [id number] [facility], OFFICE [address] [place] [address] 1 08/04/2011 13:43:47 08/04/2011 14:26:29 [id number] Clara Jeff NP [facility], OFFICE [address] [place] [address] 1 11/08/2012 13:26:37 11/08/2012 13:49:54 [id number] Carla Sadler LPN [facility], OFFICE [address] [place] [address] 1 12/27/2012 13:08:11 12/27/2012 14:02:22 [id number] Adriana Whitten LPN , [facility] [address] [place] [address] 1 04/11/2013 13:30:43 04/11/2013 14:01:36 [id number] Adriana Whitten LPN , [facility] [place] [address] [place] [address] 1 05/13/2013 11:50:23 05/13/2013 12:31:13 [id number] Hien Cole MA [facility], OFFICE [address] [place] [address] 1 06/10/2013 14:09:11 06/11/2013 07:29:21 Epigastric pain 75032472 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 She was encouraged to cut back her ibuprifen. Simple, bland diet, foods to avoid reviewed. Med use reviewed. If pain persists, h/ pylori may be considered . Reassuranc e this is not her liver. LFT's normal, completed Hep C treatment with sustained, undetactab le viral load. Urinary tr act infectious disease 42580881 Continue to hydrate. Flank pain after pyelonephr itis can last several weeks. Spasm of back muscles 394155713 MOist heat followed by stretchign and massage encouraged . Trial of muscle relaxer--c aution may cuase drowsiness . [id number] [facility] [address] [place] [address] 1 07/15/2013 14:40:44 07/15/2013 15:24:14 Benign essential hypertension 4284847 Blood pressure at goal C/W lisinopril DIscussed importance of smoking cessation Tobacco user 572198195 D iscussed importance of smoking cessation. Pt not ready to quit. Spasm of back muscles 739493813 Backache 681495589 Persi stent upper back/cervi augustine pain. Little improvemen t with PT, exercises. Will get XRAY. RF on flexeril. May need to consider PSS consult. F/U prn. Panic attack 821743511 S table. RF [id number] Casandra Callejas MA , [facility] [address] [place] [address] 1 02/06/2014 15:18:04 02/06/2014 15:54:32 Benign essential hypertension 6330772 Blood pressure at goal C/W lisinopril Adult heal th examination 399911001 see Risk Assessment and Lifestyle Change Counseling section above Pap today Immunizati ons UTD> Counseling [id number] Tobacco user 181066445 D iscussed importance of smoking cessation. Pt not ready to quit. Screening for malignant neoplasm of cervix 017146058 Spasm of back muscles 118665294 Persistent . Will increase nortriptyl ine to 25 mg qpm Will call PSS for f/u appt Generalize d anxiety disorder 55645768 Persistent anxiety C/W citalopram 40 mg RF on lorazepam 0.5 mg tid prn Dysmenorrhea 202136493 3 months heavy, painful periods WIll get pelvic U/S r/o fibroids Cannot do estrogen d/t smoking Will schedule appt with [facility] PHYSICAL THERAPIST to discuss Mirena. [id number] Brenda Asencio , [facility] [place] [address] [place] [address] 03/10/2014 14:28:19 03/10/2014 14:54:39 Spasm of back muscles 775081762 Symptomato logy indicative of muscle spasm, pt already on muscle relaxant and pain medication s, on previous visit PCP recommende d she called [facility] for evaluation . Today she tells me she will do this. Right uppe r quadrant pain 161616839 Pt with c/o new onset of RUQ pain, intensity 5/10 no real radiation or any other symptoms etiology? will need to r/o cholelithi asis, [ancreatit is. Pt agreable with plan. [id number] Clara Jeff NP , [facility] [address] [place] [address] 1 08/28/2014 14:43:38 08/28/2014 15:17:12 Benign essential hypertension 0196978 Blood pressure at goal RF today Generalize d anxiety disorder 96580336 Persistent anxiety C/W citalopram 40 mg RF on lorazepam 0.5 mg tid prn Gastroesop hageal reflux disease 039079244 restart Major depr essive disorder 566559566 stable on citalopram [id number] MD JUDI Hopson, [facility] [place] [address] [place] [address] 11/02/2014 09:09:16 11/02/2014 10:03:23 Muscle pain 71691661 I believe her pains are all muscular see order separately placed this day reassurred Benign ess ential hypertension 4621366 Blood pressure near goal cont current regimen Generalize d anxiety disorder 34921666 Persistent anxiety C/W citalopram 40 mg RF on lorazepam 0.5 mg tid prn Gastroesop hageal reflux disease 170740216 asymptomat ic on PPI Major depr essive disorder 355773264 tearful in office fears etoh related liver dz but unable to quit stable on citalopram Alcohol dependence 33017493 ongoing moderation encouraged [id number] Keyonna LAU, [facility] [place] [address] [place] [address] 1 01/14/2015 10:35:17 01/20/2015 15:11:06 Generalized anxiety disorder 42379990 Low back pain 910788117 has done PT in the past but reports relief is only temporary. CT of the abdomen and pelvis in Oct 2014 was normal- U/A negative today. Will refer to physiatry for further care. trial of nsaid with muscle relaxer. Declined narcotic pain reliever- ? addiction hx. she was not interested in PT though I think it would be beneficial for her to employ PT strategies routinely to manage her pain [id number] SUMAYA Guzman, [facility] [address] [place] [address] 1 02/09/2015 13:37:24 02/09/2015 14:39:09 Adult health examination 226783919 see Risk Assessment and Lifestyle Change Counseling section above HM: [facility] 02/09 with 3 yr repeat. Immunizati ons UTD> Counseling 518880001 Benign ess ential hypertension 6823275 Blood pressure at goal C/w lisinopril Tobacco user 164542037 D iscussed importance of smoking cessation. Pt not ready to quit. Viral hepatitis C 23703829 Stable Completed treatment Alcohol dependence 41373114 denies any problem does not want to decrease intake Major depr essive disorder 641702471 Sxs worse past several weeks Will start wellbutrin 150 mg bid- start with qd dosing; reviewed potential side effects will c/w celexa 40 mg RTO 4 weeks for f/u Insomnia 943472244 [id number] Casandra Callejas MA , [facility] [place] [address] [place] [address] 03/09/2015 07:49:06 03/09/2015 08:23:54 Tobacco user 223061706 Discussed importance of smoking cessation. Pt not ready to quit. Major depr essive disorder 186894096 First week difficult with menses but past 3 weeks little change Will c/w wellbutrin BID; if menses is again bad will d/c. If little change after 4 weeks will consider change in SSRI. will c/w celexa 40 mg RTO 4 weeks for f/u [id number] Clara Jeff NP [facility], OFFICE [address] [place] [address] 05/20/2015 11:12:26 05/20/2015 11:43:38 Tobacco user 059744507 Discussed importance of smoking cessation. Pt not ready to quit. Major depr essive disorder 378946982 doing well on wellbutrin but does have some increase in sleep problems will c/w med RF on lorazepam Generalize d anxiety disorder 74564152 Persistent anxiety C/W citalopram 40 mg, lorazepam RF on lorazepam 0.5 mg tid prn Low back pain 093605725 will d/c flexeril start soma 350 mg bid prn; reviewed possible side effects Insomnia 207508608 woren ing sleep past 3 weeks will incease trazodone to 150-200 mg qhs Dysuria 68247843 increas e odor, concentrat ion check UA, cx Night sweats 27563698 ch joon labs below [id number] [facility], OFFICE [address] [place] [address] 06/09/2015 10:34:59 06/09/2015 11:05:38 Low back pain 764925454 chronic lbp with worsening x week will d/c soma as not helpful return to cyclobenza jessica will stop ibuprofen and start Naprosyn 500 mg bid Encouraged alternate heat/ice. Declines PT- not helpful in past if no improvemen t in lbp will refer back to PSS. Dysuria 17865053 UA look s fine but did previously and was + e. coli increase odor, concentrat ion will tx with Cipro 500 mg bid x 7 days submit for cx [id number] RANDI Hayward, [facility] [place] [address] [place] [address] 1 08/16/2015 15:55:26 08/16/2015 16:37:59 Insomnia 708683177 G47.00 Major depr essive disorder 830980212 F32.9 will refill this since seems to be infrequent , but informed in future controlled substances need to be through PCP Low back pain 525184632 M54.5 Acute on chronic. Udip neg here. Toradol for pain here and refer to [facility]- had bad experience at [facility] in past [id number] Clara Jeff NP , [facility] [place] [address] [place] [address] 1 12/21/2015 14:46:43 12/21/2015 15:09:15 Nicotine dependence 64889172 Z87.891 not considerin g quitting Tobacco user 709766207 Z 72.0 Discussed importance of smoking cessation. Pt not ready to quit. Excessive and frequent menstruation 823848739 N92.1 will check labs and Pelvic U/S Abdominal pain 32332433 R10.9 hx adn tx for hep c check labs and U/S Benign ess ential hypertension 9665671 I10 BP at goal Alcohol dependence 95173 003 F10.20 cut down drinking 3 drinks 4 nights a week [id number] Clara Jeff NP , [facility] [place] [address] [place] [address] 02/14/2016 13:33:25 02/14/2016 14:28:12 Major depressive disorder 328874550 F32.9 doing well on wellbutrin will c/w med RF on lorazepam Backache 285968039 M54.9 likely rhomboid strain advised heat/ice, given hand out will try tramadol for pain d/c flexeril as not helpful Cough 29771782 R05 R sided rhonchi cough in smoker will get CXR Adult heal th examination 387780807 Z00.00 see Risk Assessment and Lifestyle Change Counseling section above HM: [facility] 02/09 with 3 yr repeat; had menses today will rto 2 weeks Immunizati ons UTD> Benign ess ential hypertension 1478517 I10 BP at goal will c/w lisinopril Alcohol dependence 29848 003 F10.20 cut down drinking 3 drinks 4 nights a week Nicotine dependence 5629 4008 Z87.891 not considerin g quitting [id number] Clara Jeff, MICHELA FP, [facility] [place] [address] [place] [address] 11/15/2016 15:38:05 11/16/2016 12:14:14 Screening for malignant neoplasm of cervix 359705661 Z12.4 Cigarette smoker 2702034 7 F17.210 not ready to quitunders tands we will c/t address Tobacco user 612336122 Z 72.0 Discussed importance of smoking cessation. Pt not ready to quit. Generalize d anxiety disorder 58097018 F41.1 Persistent , worsening anxietydis cussed possibly d/c wellbutrin but she declinesdi scussed change of celexa but she declinesdi scussed therapy but pt declines- done before and did not like itdo not want to go back on lorazapam since she has been off benzos for monthswill see if any benefit with hydroxyzin e, Gastroesop hageal reflux disease 523990616 K21.9 RF Vaginitis 29739576 N76.0 yeast on examwill tx with Diflucan Menorrhagia 468441242 N9 2.0 heavy, periods q 2 weeksus nml in Febwill refer to [facility] PHYSICAL THERAPIST- Possibly consider Mirenacann ot do estrogen given smoking Alcohol dependence 41877 003 F10.20 C/t to drink 4-5 drinks a week which is a cut down from previouspt does not feel she has a problems with ETOH bc she does not need to drink and states she drinks out of boredomdis cussed the wide variety of presentati ons of ETOH dependence will c/t address Recurrent major depression 18932344 F33.9 mood low but stableanxi ety more of an issuesdisc uss some changes in meds (wellbutri n and celexa) but she declines. [id number] Clara Jeff NP , [facility] [place] [address] [place] [address] 12/06/2016 13:52:05 12/06/2016 14:41:29 Cigarette smoker 98754694 F17.210 not ready to quitunders tands we will c/t address Tobacco user 304608562 Z 72.0 Discussed importance of smoking cessation. Pt not ready to quit. Acute urin doc tract infection 391635922 N39.0 UA + nitswill submit for cxwill tx with Bactrim DS bid x 7 dayspush fluids. Panic diso rder without agoraphobia 48922878 F41.0 did not find vistaril helpfulwil l return to lorazepam 0.5 mg bid Benzodiaze pine dependence 075385987 F13.20 using dailytried vistaril- not helpfulret urn to same dose lorazepama dvised will not increase dose Menorrhagia 323400311 N9 2.[facility] Health Concerns Section Related Observation LastModified by Organization Detai ls LastModified Time None Recorded Concern Status LastModified by Organization Details LastModified Time None Recorded Advance Directives Directive N: given 08/04/11 Payers Encounter Date Sequence Insurance Name Policy Number Policy Castelan Covered Member ID Castelan Member ID Guarantor Name 08/16/2015 1 [facility] [employer] [facility] PLAN (MEDICAID HMO) [id number] Jackelyn Bledsoe [id number] Jackelyn Bledsoe 12/21/2015 1 [facility] [employer] [facility] PLAN (MEDICAID HMO) [id number] Jackelyn Bledsoe [id number] Jackelyn Bledsoe 02/14/2016 1 [facility] [employer] [facility] PLAN (MEDICAID HMO) [id number] Jackelyn Bledsoe [id number] Jackelyn Bledsoe 11/15/2016 1 [facility] [employer] [facility] PLAN (MEDICAID HMO) [id number] Jackelyn Blesdoe [id number] Jackelyn Bledsoe 12/06/2016 1 [facility] [employer] [facility] PLAN (MEDICAID HMO) [id number] Jackelyn Plascenciatte [id number] Jackelyn Robles Ladi Notes Date Note Type Note Provider Name and Address Organization Details Recorded Time 08/16/2015 text/html Chronic back sergey n. Worse for past 7 days. No new trauma. Gets this sort of flaring on naproxen and flexeril without help. In past when this occurs, has taken one of her dad's percocet, like today, which provided some help. No b/b incont. Maximiliano Vo PA-C [address] [place], [address], [facility] 08/16/2015 16:57:26 12/21/2015 text/html a/VMG-Dysuria/ur inary symptomsReported bypatient.Associated Symptoms:No burning sensation on urination; No urinary frequency; No pressure on urination; No urinary hesitancy; Normal urine stream; No fever; No flank pain; No abdominal pain; No blisters on genitals; No rash on genitalsNotes:Period end of October, again on 12/12 for 4 days adn then again last week under stress- no car, no job. 2) coughing a lot more. No sinus pain or headaches. Runny nose. No fever. 3) RUQ abd pain. Intermittent. no weight loss.a/vmg-smoking [id number] bypatient.Physiologica l Dependence/Health RiskCurrently smoking 20 cigarettes per day Clara Jeff NP [address] [place] [address], [address], [facility] 12/22/2015 12:40:42 02/14/2016 text/html Physical Exam/FemaleReported bypatient.PHAPatient is here for a Personal Health Appraisal. She describes her health status as good. Patient's health is the same as last year.Notes:Jackelyn is here for health maintanence exam. Last PHA was 02/09 HM: [facility] 02/09 with 3 yr repeat; declines to day d/t menses Immunizations UTD>Risk Assessment and Lifestyle Change Counseling-female 27-39Reported bypatient.Coronary Artery Disease Risk Assesment:No Family history of coronary artery disease; Regular exercise program; Eats a diet low in fats and high in fiber;Personal history of hypertension;Uses tobacco; No history of peripheral vascular disease, AAA, or carotid disease; No personal history of coronary artery disease Breast Cancer Risk Assessment:No family history of breast cancer (maternal aunt);Menarche: age less than 12; Has been to term; No history of female hormone exposure Cervical Cancer Risk Assessment:Has had abnormal pap smear;Positive HPV infection Lung Cancer Risk Assessment:Has used cigarettes Cognitive/Behavioral Risk Assessment:Personal history of depression Diet:Counseled about appropriate portion size; Counseled about eating a diet low in trans and saturated fats and high in fiber, fruits and vegetables; Counseled about appropriate calcium intake and good dietary sources of calcium. Exercise counseling:Discussed the importance of daily physical activity; Discussed the importance of weight bearing exercise Safety:Counseled about protecting skin from the sun and lowering the risk of skin cancer; Counseled about avoiding excessive and unsafe alcohol intake; Counseled about home safety including use of smoke detectors, CO detectors, keeping home water temperature less than 120; Counseled about use of seat belts Smoking Cessation Counseling:Counseled about smoking cessation; Patient is not ready to quit smoking Advanced Directives:Discussed the importance of a health care proxy and advanced directives Family Planning:Not using control (not sexually active) Emergency Department and Urgent Care:Counseled about appropriate use of the emergency room and availability of urgent care at [facility] Assessment and Lifestyle Change Counseling-female 40-49Reported bypatient.Diet:Remote Sensing Specialist ed about eating a diet low in trans and saturated fats and high in fiber, fruits and vegetables; Discussed the value of a Mediterranean diet , and eating more fruits and vegetables Exercise counseling:Discussed the importance of daily physical activity; Discussed the importance of weight bearing exercise Safety:Counseled about protecting skin from the sun and lowering the risk of skin cancer; Counseled about avoiding excessive and unsafe alcohol intakea/VMG-Hypertensi onReported bypatient.Duration:Chr onic Control:Well-controlle d; BP Goal Less [id number]; Treated with medications Compliance:Compliant with medications;Noncomplia nt with diet;Noncompliant with exercise Barriers to Carefinancial status; under stress; lack of social support ; history of depression Self Care:not doing home bp monitoring Associated Symptoms:No chest pain; No shortness of breath; No edema; No fatigue; No palpitations; No decline in exercise capacity; No snoring Ability to Manage Self CareOn how confident the patient feels in ability to self manage condition the patient selects 7 with 10 being very confident and 1 being very low confidence; Patient feels confident in ability to self manage conditiona/vmg-Smoking CessationReported bypatient.Readiness to quit smokingPatient is not considering stopping smoking in the next 6 months. Duration:Currently smoking 20 cigarettes per loli/vmg-smoking [id number] bypatient.Readiness to quit smokingOn a scale of 1-10 with 1 being not ready and 10 being very ready the patient rates readiness to stop smoking as 2 Physiological Dependence/Health RiskCurrently smoking 20 cigarettes per day Clara Jeff NP [address] [place], [address], [facility] 02/14/2016 14:32:37 11/15/2016 text/html a/vmg-smoking [id number] bypatient.Readiness to quit smokingOn a scale of 1-10 with 1 being not ready and 10 being very ready the patient rates readiness to stop smoking as 3 Physiological Dependence/Health RiskCurrently smoking 20 cigarettes per dayNotes:not thinking about quittingnot ready to think about quitting Here for pap. Pha 01/2016heavy mensesER visit 2 days ago- weird episode of hot flash, shaking, sweaty and then difficult swallow food. NO LOC. ER evaluated and dx with UTI.anxiety has been worse- not taking lorazepam for past several months b/c she has not been able to come in for OV.period c/t be heavy- bleeding q 2 weeks.had pelvic us in Nov and was nml with ovarian cystdrinking 4 beers a day- cut down from 7-8 days past year.Pt does not feel she has a problem with ETOH because she does not need to drink when she firts gets up in the morning. Clara Jeff NP [address] [place], [address], [facility] 11/16/2016 08:16:28 12/06/2016 text/html Feeling more anx ious now that she is on hydroxyzine 25 TID. Davy that the anxiety was controlled better with the lorazepam when she was on it Stated she had an attack on November 20 where she was taken to the hospital via EMS because she was tense, couldn? t breathe, hands were curled, felt nausea, feels hot flashy. Unsure if she? s having anxiety. Had another episode that was almost the same after she got out, but took 3 hydrazine all at once and was able to relax and calm down. States she feels like she has a UTI. Feels urgency, foul odor in urine, when voiding only able to void small amounts at a time. Denies having fever or dysuria. Does drink 5 beers a day. Has cut back from 12 a day. Feels that she doesn? t need support for quitting. Reports she is having periods every 2 weeks, reports that she has not seen a SPORTS PHYSICAL THERAPIST yet for this has an appointment with [facility] SPORTS PHYSICAL THERAPIST on 01/04. States she think her mother may have had menopause when she was early 40s. Is sexually active, not using control as her partner has a vasectomy. Clara Jeff NP [address] [place], [address], [facility] 12/06/2016 16:34:32 12/06/2016 text/html a/vmg-smoking [id number] bypatient.Readiness to quit smokingOn a scale of 1-10 with 1 being not ready and 10 being very ready the patient rates readiness to stop smoking as 3 Physiological Dependence/Health RiskCurrently smoking 20 cigarettes per dayNotes:not thinking about quittingnot ready to think about quitting Clara Jeff NP [address] [place], [address], [facility] 12/06/2016 16:34:32 OBGyn Episode No OBEpisode recorded.
--- OUTSIDE RECORDS SUMMARY | 2024-11-20 23:45 | XMS_ITS | Encounter Summary ---
Author Organization [facility] Address [address] [place] [address] Care Team Providers Care Media Analyst Name Role Phone Ayala Patton MD Primary Care Provider [phone] Encounter Details Date Type Department Care Team Description 07/04/2024 Hospital Medical Records [address] [place] [address] [facility] Social History Tobacco Use Types Packs/Day Years Used Date Smoking Tobacco: Every Day Cigarettes 0.3 30 Smokeless Tobacco: Never Comments:less than ppk/dy Alcohol Use Standard Drinks/Week Comments Yes 3 (1 standard drink = 0.6 oz pur e alcohol) sober since 10/26/2021 Sex Assigned at Date Recorded Not on file Job Start Date Occupation Industry Not on file Not on file Not on file documented as of this encounter Plan of Treatment Not on file documented as of this encounter Visit Diagnoses Not on filedocumented in this encounter Care Teams Media Analyst Relationship Specialty Start Date End Date Ayala Patton MD [address] [place] [address] [id number] PCP - General Internal Medicine 07/04/23 documented as of this encounter
--- OUTSIDE RECORDS SUMMARY | 2024-11-20 23:45 | XMS_ITS | Encounter Summary ---
Author Organization [facility] Address [address] [place] [address] Care Team Providers Care Rate Inserter Name Role Phone Mable Flynn MD Primary Care Provider Unavail Velma Driver Primary Care Provider Ayala Mora MD Primary Care Provider [phone] Darrius Cross MD Primary Care Provider [phone] Ayala Patton MD Primary Care Provider [phone] Encounter Details Date Type Department Care Team Description 02/01/2017 Transfer Records Medical Records [address] [place] [address] Abstract, Provider Social History Tobacco Use Types Packs/Day Years Used Date Smoking Tobacco: Every Day Cigarettes 10 Smokeless Tobacco: Never Alcohol Use Standard Drinks/Week Comments Yes 10 (1 standard drink = 0.6 oz pu re alcohol) daily use Sex Assigned at Date Recorded Not on file Job Start Date Occupation Industry Not on file Not on file Not on file documented as of this encounter Plan of Treatment Not on file documented as of this encounter Visit Diagnoses Not on filedocumented in this encounter Care Teams Rate Inserter Relationship Specialty Start Date End Date Mable Flynn MD PCP - General Internal Medicine 03/27/17 10/23/21 Velma Graves PCP - General 11/13/16 03/26/17 Ayala Patton MD [address] [place] [address] PCP - General Internal Medicine 10/24/21 03/20/23 Darrius Cross MD 175 [facility] [address] [place] [address] PCP - General Internal Medicine 03/21/23 07/03/23 Ayala Patton MD [address] [place] [address] PCP - General Internal Medicine 07/04/23 documented as of this encounter
--- OUTSIDE RECORDS SUMMARY | 2024-11-20 23:45 | XMS_ITS | Encounter Summary ---
Author Organization [employer] [facility] Address [address] [place] [address] Care Team Providers Care Sand Screener Operator Name Role Phone Ayala Patton MD Primary Care Provider [phone] Encounter Details Date Type Department Care Team Description 12/20/2023 Orders Only Medical Records [address] [place] [address] [place] [facility] Social History Tobacco Use Types [...] on file documented as of this encounter Procedures Procedure Name Priority Date/Time Associated Diagnosis Comments OUTSIDE ULTRASOUND Routine 10/14/2022 documented in this encounter Results * OUTSIDE ULTRASOUND (10/14/2022) [facility] RADIOLOGY documented in this encounter Visit Diagnoses Not on filedocumented in this encounter Care Teams Sand Screener Operator Relationship Specialty Start Date End Date Ayala Patton MD [address] [place] [address] PCP - General Internal Medicine 07/04/23 documented as of this encounter
--- OUTSIDE RECORDS SUMMARY | 2024-11-20 23:45 | XMS_ITS | Encounter Summary ---
Author Organization [facility] Address [address] [place] [address] Care Team Providers Care Industrial Paramedic Name Role Phone Ayala Patton MD Primary Care Provider [phone] Encounter Details Date Type Department Care Team Description 01/20/2024 Hospital Medical Records [address] [place] [address] Social History Tobacco Use Types Packs/Day Years [...] on filedocumented in this encounter Care Teams Industrial Paramedic Relationship Specialty Start Date End Date Ayala Patton MD [address] [place] [address] PCP - General Internal Medicine 07/04/23 documented as of this encounter
--- OUTSIDE RECORDS SUMMARY | 2024-11-20 23:45 | XMS_ITS | Encounter Summary ---
Author Organization [facility] Address [address] [place] [address] Care Team Providers Care Non Licensed Operator Name Role Phone Mable Flynn MD Primary Care Provider Unavail able Ayala Patton MD Primary Care Provider Darrius Cross MD Primary Care Provider [phone] Ayala Patton MD Primary Care Provider [phone] Encounter Details Date Type Department Care Team Description 04/05/2018 Orders Only Adult Medicine [address] [place] [address] [id number] Mable Flynn MD Social History Tobacco Use Types Packs/Day Years Used Date Smoking Tobacco: Every Day Cigarettes 10 Smokeless Tobacco: Never Alcohol Use Standard Drinks/Week Comments Yes 3 (1 standard drink = 0.6 oz pur e alcohol) daily use Sex Assigned at Date Recorded Not on file Job Start Date Occupation Industry Not on file Not on file Not on file documented as of this encounter Plan of Treatment Not on file documented as of this encounter Visit Diagnoses Not on filedocumented in this encounter Care Teams Non Licensed Operator Relationship Specialty Start Date End Date Mable Flynn MD PCP - General Internal Medicine 03/27/17 10/23/21 Ayala Patton MD [address] [place] [address] [phone] PCP - General Internal Medicine 10/24/21 03/20/23 Darrius Cross MD [address] [place] [phone] PCP - General Internal Medicine 03/21/23 07/03/23 Ayala Patton MD [address] [place] [address] PCP - General Internal Medicine 07/04/23 documented as of this encounter
--- OUTSIDE RECORDS SUMMARY | 2024-11-20 23:45 | XMS_ITS | Encounter Summary ---
Author Organization [facility] Address [address] [place] [address] Care Team Providers Care Senior Ui Ux Designer Name Role Phone Mable Flynn MD Primary Care Provider Unavail Velma Driver Primary Care Provider Ayala Mora MD Primary Care Provider [phone] Darrius Cross MD Primary Care Provider [phone] Ayala Patton MD Primary Care Provider [phone] Reason for Visit * Reason Onset Date Comments TEST RESULTS 01/16/2017 Encounter Details Date Type Department Care Team Description 01/16/2017 Telephone OBGYN - 271 [facility] [address] [place] [address] Jesica Patel CNM [address] [place] [address] TEST RESULTS Social History Tobacco Use Types Packs/Day Years Used Date Smoking Tobacco: Every Day Cigarettes 10 Smokeless Tobacco: Never Alcohol Use Standard Drinks/Week Comments Yes 10 (1 standard drink = 0.6 oz pu re alcohol) daily use Sex Assigned at Date Recorded Not on file Job Start Date Occupation Industry Not on file Not on file Not on file documented as of this encounter Miscellaneous Notes * Telephone Encounter - Jesica Patel CNM - 01/23/2017 1:22 PM EDT Call to patient, no answer, left VM She will need EMB trinity with MD due to perimenopausal bleeding, this is for eval of malignancy of theuterus. , and she does have uterine fibroids as well. Jesica Patel CNM * Telephone Encounter - Jesica Patel CNM - 01/19/2017 9:22 AM EDT Telephone Information: call to pt, no answer, left VM, i have results of recent ultrasound and labs, * Telephone Encounter - Amrita Cornejo - 01/16/2017 2:15 PM EDT Inform patient: ANY URGENT OR ABNORMAL RESULTS WIILL RESULT IN A CALL BACK TO THE PATIENT DAYDAY. Type of test: :Lab results Date test was performed: 01/04/2017 Where was the test performed: in office Who ordered this test?: Jesica Patel Is the doctor here today?: YES Can the message wait until the doctor returns?: NO IF PATIENT'S PCP IS NOT IN INSTRUCT PATIENT THAT THEY WILL RECEIVE A CALL BACK WHEN THE PCP IS IN THE OFFICE NEXT. documented in this encounter Plan of Treatment Not on file documented as of this encounter Visit Diagnoses Not on filedocumented in this encounter Care Teams Senior Ui Ux Designer Relationship Specialty Start Date End Date Mable Flynn MD PCP - General Internal Medicine 03/27/17 10/23/21 Velma Graves PCP - General 11/13/16 03/26/17 Ayala Patton MD [address] [place] [address] PCP - General Internal Medicine 10/24/21 03/20/23 Darrius Cross MD [address] [place] [phone] PCP - General Internal Medicine 03/21/23 07/03/23 Ayala Patton MD [address] [place] [address] PCP - General Internal Medicine 07/04/23 documented as of this encounter
--- OUTSIDE RECORDS SUMMARY | 2024-11-20 23:45 | XMS_ITS | Encounter Summary ---
Author Organization [facility] Address [address] [place] [address] Care Team Providers Care Flux Core Welder Name Role Phone Ayala Patton MD Primary Care Provider [phone] Encounter Details Date Type Department Care Team Description 02/25/2024 Hospital Medical Records [address] [place] [address] Luis Carlos Browning Social History Tobacco Use Types Packs/Day Years [...] on filedocumented in this encounter Care Teams Flux Core Welder Relationship Specialty Start Date End Date Ayala Patton MD [address] [place] [address] PCP - General Internal Medicine 07/04/23 documented as of this encounter
--- OUTSIDE RECORDS SUMMARY | 2024-11-20 23:45 | XMS_ITS | Encounter Summary ---
Author Organization [facility] Address [address] [place] [address] Care Team Providers Care Turkey Pinner Name Role Phone Ayala Patton MD Primary Care Provider [phone] Encounter Details Date Type Department Care Team Description 12/24/2023 Cash Sales Audit Clerk Report Medical Records [address] [place] [address] Social History Tobacco Use Types Packs/Day Years [...] on filedocumented in this encounter Care Teams Turkey Pinner Relationship Specialty Start Date End Date Ayala Patton MD [address] [place] [address] PCP - General Internal Medicine 07/04/23 documented as of this encounter
--- OUTSIDE RECORDS SUMMARY | 2024-11-20 23:45 | XMS_ITS | Encounter Summary ---
Author Organization [facility] Address [address] [place] [address] Care Team Providers Care Roller Stainer Name Role Phone Mable Flynn MD Primary Care Provider Unavail able Ayala Patton MD Primary Care Provider [phone] Darrius Cross MD Primary Care Provider [phone] Ayala Patton MD Primary Care Provider [phone] Reason for Visit * Reason Comments E-prescribe Rx Request Encounter Details Date Type Department Care Team Description 03/23/2019 Refill Adult Medicine [address] [address] Mable Flynn MD E-prescribe Rx Request Social History Tobacco Use Types Packs/Day Years Used Date Smoking Tobacco: Every Day Cigarettes 10 Smokeless Tobacco: Never Comments:less than ppk/dy Alcohol Use Standard Drinks/Week Comments Yes 3 (1 standard drink = 0.6 oz pur e alcohol) daily use Sex Assigned at Date Recorded Not on file Job Start Date Occupation Industry Not on file Not on file Not on file documented as of this encounter Miscellaneous Notes * Telephone Encounter - Aparna Elidia - 03/25/2019 7:09 AM EDT Patient would like script to be: E-PRESCRIBED/FAXED TO PHARMACY WHEN WAS THE PATIENT'S LAST APPOINTMENT IN ADULT MEDICINE? 01/03/19 WHEN WAS THE LAST TIME THE PATIENT SAW THEIR PCP? Does patient have an upcoming appointment? No-patient refused appointment, will call back to book appointment (THE MEDICATION REQUESTED IS ON THE MED LIST ABOVE) All of the medications requested were on the CURRENT MEDS list Did you check the Pharmacy information above?: YES Patient wants: 90 -day supply Is this a mail order prescription request ? NO If the refill is from a FAXED refill request what is the RX # listed on the fax? N/A Patients current insurance carrier is: [facility] / Plan: CC-[employer] [place] TYPE 2 / Product Type: HMO [id number] documented in this encounter Plan of Treatment Not on file documented as of this encounter Visit Diagnoses Not on filedocumented in this encounter Care Teams Roller Stainer Relationship Specialty Start Date End Date Mable Flynn MD PCP - General Internal Medicine 03/27/17 10/23/21 Ayala Patton MD [address] [place] [address] [phone] PCP - General Internal Medicine 10/24/21 03/20/23 Darrius Cross MD [address] [place] [phone] PCP - General Internal Medicine 03/21/23 07/03/23 Ayala Patton MD [address] [place] [address] [phone] PCP - General Internal Medicine 07/04/23 documented as of this encounter
--- OUTSIDE RECORDS SUMMARY | 2024-11-20 23:45 | XMS_ITS | Clinical Summary ---
Author Organization [facility] Address [address] [facility] [address] [place] [address] Phone Care Team Providers Care Clerical Manager Name Role Phone Ayala Patton MD Primary Care Provider [phone] Medications traZODone (DESYREL) 100 MG tablet Take 1 tablet (100 mg total) by mouth at bed time 30 tablet 09/01/2022 Active citalopram (CeleXA) 40 MG tablet Take 1 tablet (40 mg total) by mouth 1 (one) time each day 90 tablet 3 09/13/2022 Active metoprolol succinate XL (TOPROL XL) 25 MG 24 hr tabletIndicatio ns:Hypertension TAKE 4 TABLETS BY MOUTH 1 TIME EACH DAY DO NOT CRUSH OR CHEW. 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 Hypertension 03/08/2022 Family History Medical History Relation Comments No Known Problems Brother Alcohol abuse Father Cancer Father Hypertension Father No Known Problems Maternal Grandfather No Known Problems Maternal Grandmother Alcohol abuse Mother Cancer Mother Hepatitis Mother Hypertension Mother No Known Problems Paternal Grandfather No Known Problems Paternal Grandmother No Known Problems Sister Relation Status Comments Brother Father Maternal Grandfather Maternal Grandmother Mother Paternal Grandfather Paternal Grandmother Sister Social History Tobacco Use Types Packs/Day Years Used Date Smoking Tobacco: Never Assessed Comments Unknown Sex and Gender Information Value Date Recorded Sex Assigned at Not on file Legal Sex Female 9:25 AM EDT Gender Identity Not on file Sexual Orientation Not on file Plan of Treatment Health Maintenance Due Date Last Done Comments Breast Cancer Screening 1975 Hepatitis B Vaccine (2 of 3 - Hep B Twinrix 3-dose series) 09/18/2011 08/21/2011 Pneumococcal Vaccine: Pediat rics (0 to 5 Years) and At-Risk Patients (6 to 64 Years) (2 of 2 - PCV) 08/04/2012 08/04/2011 Colorectal Cancer Screening: Annual FOBT 2023 Colorectal Cancer Screening: Colonoscopy 2023 Colorectal Cancer Screening: Sigmoidoscopy 2023 Influenza Vaccine (#1) 2024 Insurance Care Teams Clerical Manager Relationship Specialty Start Date End Date Ayala Patton MD PCP - General Internal Medicine 04/11/22
--- OUTSIDE RECORDS SUMMARY | 2024-11-20 23:45 | XMS_ITS | Encounter Summary ---
Author Organization [facility] Address [address] [place] [address] Care Team Providers Care Edi Architect Name Role Phone Ayala Patton MD Primary Care Provider [phone] Encounter Details Date Type Department Care Team Description 07/20/2023 Orders Only Medical Records [address] [place] [address] Abstract, Provider Social History Tobacco Use Types [...] file Not on file Not on file COVID-19 Exposure Response Date Recorded In the last 10 days, have yo u been in contact with someone who was confirmed or suspected to have Coronavirus/COVID-19? Unable to assess 06/28/2023 12:37 PM EDT documented as of this encounter Plan of Treatment Not on file documented as of this encounter Procedures Procedure Name Priority Date/Time Associated Diagnosis Comments OUTSIDE ULTRASOUND Routine 07/17/2023 documented in this encounter Results * OUTSIDE ULTRASOUND (07/17/2023) Provider Abstract RADIOLOGY documented in this encounter Visit Diagnoses Not on filedocumented in this encounter Care Teams Edi Architect Relationship Specialty Start Date End Date Ayala Patton MD [address] [place] [address] [phone] PCP - General Internal Medicine 07/04/23 documented as of this encounter
--- OUTSIDE RECORDS SUMMARY | 2024-11-20 23:45 | XMS_ITS | Encounter Summary ---
Author Organization [facility] Address [address] [place] [address] Care Team Providers Care Serger Name Role Phone Ayala Patton MD Primary Care Provider [phone] Encounter Details Date Type Department Care Team Description 11/02/2023 Hospital Medical Records [address] [place] [address] Akil Tilley MD Social History Tobacco Use Types Packs/Day [...] on filedocumented in this encounter Care Teams Serger Relationship Specialty Start Date End Date Ayala Patton MD [address] [place] [address] PCP - General Internal Medicine 07/04/23 documented as of this encounter
--- OUTSIDE RECORDS SUMMARY | 2024-11-20 23:45 | XMS_ITS | Encounter Summary ---
Author Organization [facility] Address [address] [place] [address] Care Team Providers Care Solar System Installer Name Role Phone Darrius Cross MD Primary Care Provider [phone] Ayala Patton MD Primary Care Provider [phone] Encounter Details Date Type Department Care Team Description 06/28/2023 Telephone Internal Medicine - [place] 175 [facility], [address] [place] [address] Darrius Cross MD [address] [place] [phone] Social History Tobacco Use Types Packs/Day Years [...] on filedocumented in this encounter Care Teams Solar System Installer Relationship Specialty Start Date End Date Darrius Cross MD [address] [phone] PCP - General Internal Medicine 03/21/23 07/03/23 Ayala Patton MD [address] [place] [address] PCP - General Internal Medicine 07/04/23 documented as of this encounter
--- OUTSIDE RECORDS SUMMARY | 2024-11-20 23:45 | XMS_ITS | Encounter Summary ---
Author Organization [facility] Address [address] [place] [address] Care Team Providers Care Food Technologist Name Role Phone Ayala Patton MD Primary Care Provider [phone] Encounter Details Date Type Department Care Team Description 12/07/2023 Hospital Medical Records [address] [place], [place] [phone] [place] [address] Social History Tobacco Use Types Packs/Day Years [...] on filedocumented in this encounter Care Teams Food Technologist Relationship Specialty Start Date End Date Ayala Patton MD [address] [place] [address] [phone] PCP - General Internal Medicine 07/04/23 documented as of this encounter
--- OUTSIDE RECORDS SUMMARY | 2024-11-20 23:45 | XMS_ITS | Encounter Summary ---
Author Organization [facility] Address [address] [place] [address] Care Team Providers Care Residential Program Manager Name Role Phone Darrius Cross MD Primary Care Provider [phone] Ayala Patton MD Primary Care Provider [phone] Encounter Details Date Type Department Care Team Description 05/24/2023 Telephone Internal Medicine - [place] 175 [facility], [address] [place] [address] Darrius Cross MD [address] [place] [phone] Social History Tobacco Use Types Packs/Day [...] was confirmed or suspected to have Coronavirus/COVID-19? No / Unsure 05/25/2023 12:39 PM EDT documented as of this encounter Plan of Treatment Not on file documented as of this encounter Visit Diagnoses Not on filedocumented in this encounter Care Teams Residential Program Manager Relationship Specialty Start Date End Date Darrius Cross MD [address] [phone] PCP - General Internal Medicine 03/21/23 07/03/23 Ayala Patton MD [address] [place] [address] PCP - General Internal Medicine 07/04/23 documented as of this encounter
--- OUTSIDE RECORDS SUMMARY | 2024-11-20 23:45 | XMS_ITS | Encounter Summary ---
Author Organization [facility] Address [address] [place] [address] Care Team Providers Care Photographer Aerial Name Role Phone Mable Flynn MD Primary Care Provider Unavail able Ayala Patton MD Primary Care Provider [phone] Darrius Cross MD Primary Care Provider [phone] Ayala Patton MD Primary Care Provider [phone] Encounter Details Date Type Department Care Team Description 10/24/2017 Hospital Medical Records [address] [place] [address] Uri Tompkins MD [address] [place] [address] [phone] Social History Tobacco Use Types Packs/Day Years [...] on filedocumented in this encounter Care Teams Photographer Aerial Relationship Specialty Start Date End Date Mable Flynn MD PCP - General Internal Medicine 03/27/17 10/23/21 Ayala Patton MD [address] [place] [address] PCP - General Internal Medicine 10/24/21 03/20/23 Darrius Cross MD [address] [place] [address] [address] [place] [phone] PCP - General Internal Medicine 03/21/23 07/03/23 Ayala Patton MD [address] [place] [address] PCP - General Internal Medicine 07/04/23 documented as of this encounter
--- OUTSIDE RECORDS SUMMARY | 2024-11-20 23:45 | XMS_ITS | Encounter Summary ---
Author Organization [facility] Address [address] [place] [address] Care Team Providers Care Lab Animal Technologist Name Role Phone Ayala Patton MD Primary Care Provider [phone] Encounter Details Date Type Department Care Team Description 09/18/2023 Orders Only Medical Records [address] [place] [address] Rhoda Donald Social History Tobacco Use Types Packs/Day Years [...] suspected to have Coronavirus/COVID-19? No / Unsure 08/21/2023 2:02 PM EDT documented as of this encounter Plan of Treatment Not on file documented as of this encounter Procedures Procedure Name Priority Date/Time Associated Diagnosis Comments OUTSIDE CT Routine 08/07/2023 documented in this encounter Results * OUTSIDE CT (08/07/2023) Rhoda Donald RADIOLOGY documented in this encounter Visit Diagnoses Not on filedocumented in this encounter Care Teams Lab Animal Technologist Relationship Specialty Start Date End Date Ayala Patton MD [address] [place] [address] PCP - General Internal Medicine 07/04/23 documented as of this encounter
--- OUTSIDE RECORDS SUMMARY | 2024-11-20 23:45 | XMS_ITS | Encounter Summary ---
Author Organization [facility] Address [address] [place] [address] Care Team Providers Care Senior Oracle Pl Sql Developer Name Role Phone Carol Flynn MD Primary Care Provider Unavail able Ayala Patton MD Primary Care Provider [phone] Darrius Cross MD Primary Care Provider [phone] Ayala Patton MD Primary Care Provider [phone] Reason for Visit * Reason Onset Date Comments TEST RESULTS 04/13/2021 Encounter Details Date Type Department Care Team Description 04/13/2021 Telephone Adult [address] [address] Carol Flynn MD TEST RESULTS Social History Tobacco Use Types [...] Exposure Response Date Recorded In the last month, have you been in contact with someone who was confirmed or suspected to have Coronavirus / COVID-19? No / Unsure 03/24/2021 10:25 AM EDT documented as of this encounter Miscellaneous Notes * Telephone Encounter - Carol Flynn MD - 04/13/2021 3:59 PM EDT Benign findings, she was contacted by radiology * Telephone Encounter - Luís Alarcon C.M.A. - 04/13/2021 3:09 PM EDT Pt looking for results for apt 04/06/21 * Telephone Encounter - Susy Tenorio - 04/13/2021 2:52 PM EDT Inform patient: ANY URGENT OR ABNORMAL RESULTS WIILL RESULT IN A CALL BACK TO THE PATIENT DAYDAY. Type of test: :Labs and xrays Date test was performed: 04/06/21 Where was the test performed: thone Who ordered this test?: CAROL FLYNN Is the doctor here today?: YES Can [...] filedocumented in this encounter Care Teams Senior Oracle Pl Sql Developer Relationship Specialty Start Date End Date Carol Flynn MD PCP - General Internal Medicine 03/27/17 10/23/21 Ayala Patton MD [address] [place] [address] [id number] PCP - General Internal Medicine 10/24/21 03/20/23 Darrius Cross MD [address] [facility] [address] [place] [phone] PCP - General Internal Medicine 03/21/23 07/03/23 Ayala Patton MD [address] [place] [address] [phone] PCP - General Internal Medicine 07/04/23 documented as of this encounter
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
--- OUTSIDE RECORDS SUMMARY | 2024-11-20 23:45 | XMS_ITS | Encounter Summary ---
Author Organization [facility] Address [address] [place] [address] Care Team Providers Care Kindergartner Name Role Phone Darrius Cross MD Primary Care Provider [phone] Ayala Patton MD Primary Care Provider [phone] Encounter Details Date Type Department Care Team Description 06/19/2023 Telephone Internal Medicine - [place] [address] [facility], [address] [place] [address] Darrius Cross MD [address] [place] [phone] Social History Tobacco Use Types Packs/Day [...] suspected to have Coronavirus/COVID-19? Unable to assess 06/20/2023 8:47 AM EDT documented as of this encounter Plan of Treatment Not on file documented as of this encounter Visit Diagnoses Not on filedocumented in this encounter Care Teams Kindergartner Relationship Specialty Start Date End Date Darrius Cross MD [address] [phone] PCP - General Internal Medicine 03/21/23 07/03/23 Ayala Patton MD [address] [place] [address] PCP - General Internal Medicine 07/04/23 documented as of this encounter
--- OUTSIDE RECORDS SUMMARY | 2024-11-20 23:45 | XMS_ITS | Encounter Summary ---
Author Organization [facility] Address [address] [place] [address] Care Team Providers Care Vp Legal Affairs Name Role Phone Ayala Patton MD Primary Care Provider [phone] Encounter Details Date Type Department Care Team Description 12/19/2023 Orders Only Medical Records [address] [place] [address] [facility] Social History Tobacco Use Types Packs/Day Years [...] Date/Time Associated Diagnosis Comments OUTSIDE CT Routine 12/07/2023 OUTSIDE NUCLEAR MEDICINE Routine 11/02/2023 OUTSIDE ULTRASOUND Routine 11/01/[address] Routine 11/01/2023 documented in this encounter Results * OUTSIDE CT (12/07/2023) Naun Reid PA-C RADIOLOGY * OUTSIDE NUCLEAR MEDICINE (11/02/2023) [facility] RADIOLOGY * [facility]11[facility]01/2023[facility] * OUTSIDE CT (11/01/2023) Narrative Authorizing Provider Result [facility] RADIOLOGY documented in this encounter Visit Diagnoses Not on filedocumented in this encounter Care Teams Vp Legal Affairs Relationship Specialty Start Date End Date Ayala Patton MD [address] [place] [phone] PCP - General Internal Medicine 07/04/23 documented as of this encounter
--- OUTSIDE RECORDS SUMMARY | 2024-11-20 23:45 | XMS_ITS | Encounter Summary ---
Author Organization [facility] Address [address] [place] [address] Care Team Providers Care Working Manager Name Role Phone Ayala Patton MD Primary Care Provider [phone] Encounter Details Date Type Department Care Team Description 12/10/2023 Hospital Medical Records [address] [place] [address] [facility] Social History Tobacco Use Types Packs/Day Years [...] on filedocumented in this encounter Care Teams Working Manager Relationship Specialty Start Date End Date Ayala Patton MD [address] [place] [address] [phone] PCP - General Internal Medicine 07/04/23 documented as of this encounter
--- OUTSIDE RECORDS SUMMARY | 2024-11-20 23:45 | XMS_ITS | Encounter Summary ---
Author Organization [facility] Address [address] [place] [address] Care Team Providers Care Drawer In Name Role Phone Ayala Patton MD Primary Care Provider Encounter Details Date Type Department Care Team Description 01/21/2024 Hospital Medical Records [address] [place] [address] India Warren MD Social History Tobacco Use Types Packs/Day [...] on filedocumented in this encounter Care Teams Drawer In Relationship Specialty Start Date End Date Ayala Patton MD [address] [place] [address] PCP - General Internal Medicine 07/04/23 documented as of this encounter
--- OUTSIDE RECORDS SUMMARY | 2024-11-20 23:45 | XMS_ITS | Encounter Summary ---
Author Organization [facility] Address [address] [place] [address] Care Team Providers Care Special Officer Automat Name Role Phone Ayala Patton MD Primary Care Provider [phone] Reason for Visit * Reason Onset Date Comments refill request 05/16/2024 Encounter Details Date Type Department Care Team Description 05/16/2024 Refill Adult Medicine [address] [phone] Ayala Patton MD [address] [place] [address] [phone] refill request Social History Tobacco Use Types Packs/Day Years [...] encounter Miscellaneous Notes * Telephone Encounter - Jaz Vanegas M.A. - 05/16/2024 12:25 PM EDT Lab Results Component Value Date NA 144 12/17/2023 K 4.0 12/17/2023 CO2 30 12/17/2023 CL 105 12/17/2023 BUN 22 12/17/2023 CREAT 0.61 12/17/2023 GLU 104 12/17/2023 CA 9.7 12/17/2023 GFR 110 12/17/2023 Pending appt 10/10/24 Last appt 04/08/24 * Telephone Encounter - Audra Richardson - 05/16/2024 12:16 PM EDT Patient would like script to be: E-PRESCRIBED/FAXED TO PHARMACY WHEN WAS THE PATIENT'S LAST APPOINTMENT IN ADULT MEDICINE? 04/08/24 WHEN WAS THE LAST TIME THE PATIENT SAW THEIR PCP? Same as above Does patient have an upcoming appointment? Yes 10/10/24 (THE MEDICATION REQUESTED IS ON THE MED [...] N/A Patients current insurance carrier is: Payor: [employer] / Plan: [employer] HMO F 1+/$0 / Product Type: [id number] documented in this encounter Plan of Treatment Not on file documented as of this encounter Visit Diagnoses Not on filedocumented in this encounter Care Teams Special Officer Automat Relationship Specialty Start Date End Date Ayala Patton MD [address] [place] [address] PCP - General Internal Medicine 07/04/23 documented as of this encounter
--- OUTSIDE RECORDS SUMMARY | 2024-11-20 23:45 | XMS_ITS | Encounter Summary ---
Author Organization [facility] Address [address] [place] [address] Care Team Providers Care Inside Steward/Stewardess Name Role Phone Ayala Patton MD Primary Care Provider [phone] Darrius Cross MD Primary Care Provider [phone] Ayala Patton MD Primary Care Provider Encounter Details Date Type Department Care Team Description 05/17/2022 Telephone Adult Medicine [address] [phone] Ayala Patton MD [address] [place] [address] [phone] Social History Tobacco Use Types Packs/Day Years [...] encounter Miscellaneous Notes * Telephone Encounter - Eloise Renteria R.N. - 05/17/2022 11:38 AM EDT Pt requesting to reschedule her 05/05/2022 appt Appt rescheduled for 07/28/2022 at 2:15 pm Attempted to call [phone] - no answer- did not want to leave a VM on work phone. Will send a My chart message documented in this encounter Plan of Treatment Not on file documented as of this encounter Visit Diagnoses Not on filedocumented in this encounter Care Teams Inside Steward/Stewardess Relationship Specialty Start Date End Date Ayala Patton MD [address] [place] [phone] PCP - General Internal Medicine 10/24/21 03/20/23 Darrius Cross MD [address] [place] [phone] PCP - General Internal Medicine 03/21/23 07/03/23 Ayala Patton MD [address] [place] [address] PCP - General Internal Medicine 07/04/23 documented as of this encounter
--- OUTSIDE RECORDS SUMMARY | 2024-11-20 23:45 | XMS_ITS | Referral Summary ---
Author Organization [facility] Address [address] [place] [address] Care Team Providers Care Aircraft Machinist Name Role Phone Ayala Patton Primary Care Provider [phone] Allergies No known active allergies Medications No known medications Social History Tobacco Use Types Packs/Day Years Used Date Smoking Tobacco: Every Day Cigarettes Smokeless Tobacco: Never Tobacco Cessation:Ready to Q uit: Not Asked; Counseling Given: Not Answered Alcohol Use Standard Drinks/Week Comments Yes 0 (1 standard drink = 0.6 oz pur e alcohol) 12 nips/shots per day Comments Unknown Sex and Gender Information Value Date Recorded Sex Assigned at Female 03/17/2024 12:50 PM EDT Legal Sex Female 12:07 AM EDT Gender Identity Female 03/17/2024 12:50 PM EDT Sexual Orientation Not on file Last Filed Vital Signs Vital Sign Reading Time Taken Comments Blood Pressure 152/107 03/17/2024 3:45 PM EDT Pulse 70 03/17/2024 3:45 PM EDT Temperature 36.1 ??C (97 ??F) 03/17/2024 11:10 AM EDT Respiratory Rate 18 03/17/2024 3:45 PM EDT Oxygen Saturation 97% 03/17/2024 3:45 PM EDT Inhaled Oxygen Concentration - - Weight 50.8 kg (112 lb) 09/01/2023 2:30 PM EDT Height 160 cm (5' 3 ) 09/01/2023 2:30 PM EDT Body Mass Index 19.84 09/01/2023 2:30 PM EDT Plan of Treatment Not on file Insurance [employer] Care Teams Aircraft Machinist Relationship Specialty Start Date End Date Ayala Patton PCP - General Internal Medicine 09/01/23
--- OUTSIDE RECORDS SUMMARY | 2024-11-20 23:45 | XMS_ITS | Encounter Summary ---
Author Organization [facility] Address [address] [place] [address] Care Team Providers Care Airbrush Painter Name Role Phone Ayala Patton MD Primary Care Provider [phone] Encounter Details Date Type Department Care Team ([facility] st Contact Info) Description 10/28/2024 Telephone Adult Medicine [address] [phone] Jessika Michelle, CORY Social History Tobacco Use Types Packs/Day Years Used Date Smoking Tobacco: Every Day Cigarettes Smokeless Tobacco: Never Alcohol Use Standard Drinks/Week Comments Yes 6 [...] care for your loved ones. For example, child day care center worker or elderly care for an older adult? [...] on file documented as of this encounter Progress Notes * Jessika Michelle RN - 10/28/2024 9:52 AM EST I left a message for the pt to call the office at . Pt was sent to the ER on 10/10/24 r/t magnesium level of 1.2. Pt is in need of an ER or Hospital follow up appointment. documented in this encounter Plan of Treatment Upcoming Encounters Date Type Department Care Team (Late st Contact Info) Description 04/13/2025 11:30 AM EDT Office Visit Adult Medicine [facility] [address] [place] [phone] Laura Nj PA [address] [place] [address] documented as of this encounter Visit Diagnoses Not on filedocumented in this encounter Additional Health Concerns Assessment Noted Time PHQ-9 Depression Total Score: 0 09/02/20 24 9:48 AM EST documented as of this encounter Care Teams Airbrush Painter Relationship Specialty Start Date End Date Ayala Patton MD [address] [place] [address] PCP - General Internal Medicine 10/24/21 documented as of this encounter
--- OUTSIDE RECORDS SUMMARY | 2024-11-20 23:45 | XMS_ITS | Encounter Summary ---
Author Organization [facility] Address [address] [place] [address] Care Team Providers Care Health Assistant Name Role Phone Ayala Patton MD Primary Care Provider [phone] Encounter Details Date Type Department Care Team Description 12/05/2023 Hospital Medical Records [address] [place] [address] Javon Moy Social History Tobacco Use Types Packs/Day Years [...] on filedocumented in this encounter Care Teams Health Assistant Relationship Specialty Start Date End Date Ayala Patton MD [address] [place] [phone] PCP - General Internal Medicine 07/04/23 documented as of this encounter
--- OUTSIDE RECORDS SUMMARY | 2024-11-20 23:45 | XMS_ITS | Encounter Summary ---
Author Organization [facility] Address [address] [place] [address] Care Team Providers Care Vault Worker Name Role Phone Ayala Patton MD Primary Care Provider [phone] Encounter Details Date Type Department Care Team Description 01/30/2024 Orders Only Medical Records [address] [place] [address] Social History Tobacco Use Types Packs/Day Years [...] Name Priority Date/Time Associated Diagnosis Comments OUTSIDE ECHO Routine 01/21/2024 OUTSIDE LAB Routine 01/21/2024 OUTSIDE PLAIN FILM Routine 01/19/2024 OUTSIDE VASCULAR STUDY Routine 01/18/[address] Routine 01/18/2024 OUTSIDE PLAIN FILM Routine 01/18/2024 documented in this encounter Results * OUTSIDE LAB (01/21/2024) [facility] LAB * OUTSIDE ECHO (01/21/2024) [facility] CARDIOLOGY * OUTSIDE PLAIN FILM (01/19/2024) [facility] RADIOLOGY * OUTSIDE CT (01/18/2024) [facility] RADIOLOGY * OUTSIDE PLAIN FILM (01/18/2024) [facility] RADIOLOGY * OUTSIDE VASCULAR STUDY (01/18/2024) [facility] CARDIOLOGY documented in this encounter Visit Diagnoses Not on filedocumented in this encounter Care Teams Vault Worker Relationship Specialty Start Date End Date Ayala Patton MD [address] [place] [phone] PCP - General Internal Medicine 07/04/23 documented as of this encounter
--- OUTSIDE RECORDS SUMMARY | 2024-11-20 23:45 | XMS_ITS | Encounter Summary ---
Author Organization [facility] Address [address] [place] [address] Care Team Providers Care Cloth Boil Off Machine Operator Name Role Phone Mable Flynn MD Primary Care Provider Unavail able Ayala Patton MD Primary Care Provider [phone] Darrius Cross MD Primary Care Provider [phone] Ayala Patton MD Primary Care Provider [phone] Reason for Visit * Reason Onset Date Comments TEST RESULTS 05/06/2019 result notes Encounter Details Date Type Department Care Team Description 05/06/2019 Telephone Adult Medicine [address] [address] Belinda Johnson PA-C TEST RESULTS (result notes) Social History Tobacco Use Types Packs/Day Years [...] encounter Miscellaneous Notes * Telephone Encounter - Jonn Mason M.A. - 05/06/2019 9:34 AM EDT Left message for patient to return call. 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 We discussed options in the office including either following up with orthopedics or physical therapy. I will place a referral to whichever when she prefers first documented in this encounter Plan of Treatment Not on file documented as of this encounter Visit Diagnoses Not on filedocumented in this encounter Care Teams Cloth Boil Off Machine Operator Relationship Specialty Start Date End Date Mable Flynn MD PCP - General Internal Medicine 03/27/17 10/23/21 Ayala Patton MD [address] [place] [address] [phone] PCP - General Internal Medicine 10/24/21 03/20/23 Darrius Cross MD [address] [place] [phone] PCP - General Internal Medicine 03/21/23 07/03/23 Ayala Patton MD [address] [place] [phone] PCP - General Internal Medicine 07/04/23 documented as of this encounter
--- OUTSIDE RECORDS SUMMARY | 2024-11-20 23:45 | XMS_ITS | Encounter Summary ---
Author Organization [facility] Address [address] [place] [address] Care Team Providers Care Director Of Neurology Name Role Phone Mable Flynn MD Primary Care Provider Unavail Velma Driver Primary Care Provider Ayala Mora MD Primary Care Provider [phone] Darrius Cross MD Primary Care Provider [phone] Ayala Patton MD Primary Care Provider [phone] Encounter Details Date Type Department Care Team Description 01/25/2017 Orders Only OBGYN - 271 [facility] [address] [place] [address] Jesica Patel, [facility] [address] [place] [address] Excessive bleeding in premenopausal period; Hep C w/o coma, chronic (HCC) Social History Tobacco Use Types Packs/Day Years [...] Procedure Name Priority Date/Time Associated Diagnosis Comments SONO PELVIS COMPLETE Routine 01/16/2017 Excessive bleeding in premenopausal period Hep C w/o coma, chronic (HCC) documented in this encounter Results * SONO PELVIS COMPLETE (01/16/2017) Jesica Patel CNJaye ULTRASOUND documented in this encounter Visit Diagnoses Diagnosis Excessive bleeding in premenopausal period Premenopausal menorrhagia Hep C w/o coma, chronic (HCC) Chronic hepatitis C without mention of hepatic coma documented in this encounter Care Teams Director Of Neurology Relationship Specialty Start Date End Date Mable Flynn MD PCP - General Internal Medicine 03/27/17 10/23/21 Velma Graves PCP - General 11/13/16 03/26/17 Ayala Patton MD [address] [place] [phone] PCP - General Internal Medicine 10/24/21 03/20/23 Darrius Cross MD [address] [place] [phone] PCP - General Internal Medicine 03/21/23 07/03/23 Ayala Patton MD [address] [place] [phone] PCP - General Internal Medicine 07/04/23 documented as of this encounter
--- OUTSIDE RECORDS SUMMARY | 2024-11-20 23:45 | XMS_ITS | Encounter Summary ---
Author Organization [facility] Address [address] [place] [address] Care Team Providers Care Health Professor Name Role Phone Ayala Patton MD Primary Care Provider [phone] Reason for Visit * Reason Onset Date Comments hospital follow up 02/19/2024 Encounter Details Date Type Department Care Team Description 02/19/2024 Telephone Adult Medicine [facility] [address] [place] [address] [phone] Ayala Patton MD [address] [place] [address] [phone] hospital follow up Social History Tobacco Use Types Packs/Day Years [...] encounter Miscellaneous Notes * Telephone Encounter - Emelia Laisha - 02/20/2024 3:11 PM EDT Called and spoke with patient. She stated that she went to [facility], [facility], and [facility] all in one week for gastroenteritis. She does not remember the dates, but it was about 2 weeks ago she was in & out of the hospitals. Booked hospital follow up for 02/29/[address] Patton. * Telephone Encounter - Sandra Woodward - 02/19/2024 3:52 PM EDT Hospital follow up appointment needed Hospital patient was treated at: [facility], [place] Was this only an ER visit or was the patient admitted to the hospital? Admitted to hospital Date of visit if ER visit only: N/A If patient was admitted what was the date of discharge? N/A Reason/diagnosis for visit or stay: I called pt on 02/19/24 to confirm appt with Laura Nj forfollow up , pt stated she was admitted to the 3 different hospitals and when I asked pt For dates she was in the hospital pt stated she didn't have them I was to pull the records and get them , pt stated she was only going to speak to the nurse and she hang up the phone . When was the patient told to follow up? DAYDAY Was visit or stay related to an injury? NO If yes, what was the date of injury (DOI)? N/A If yes, was the injury due to N/A documented in this encounter Plan of Treatment Not on file documented as of this encounter Visit Diagnoses Not on filedocumented in this encounter Care Teams Health Professor Relationship Specialty Start Date End Date Ayala Patton MD [address] [place] [phone] PCP - General Internal Medicine 07/04/23 documented as of this encounter
--- OUTSIDE RECORDS SUMMARY | 2024-11-20 23:45 | XMS_ITS | Clinical Summary ---
Author Organization [facility] Address [address] [place] [address] Care Team Providers Care Php Wordpress Developer Name Role Phone Ayala Patton Primary Care Provider [phone] Allergies No known active allergies Medications No [...] 09/01/2023 2:30 PM EDT Plan of Treatment Health Maintenance Due Date Last Done Comments Cologuard 1974 Colon Cancer Screening 1974 Colonoscopy 1974 FOBT / Fit Test 1974 HIV Screening 1974 HPV and Pap Smear 1974 Hepatitis C Screening 1974 Sigmoidoscopy 1974 Hepatitis B Vaccines (2 of 3 - 19+ 3-dose series) 09/18/2011 08/21/2011, 11/11/2003 Pneumococcal Vaccine: Pediat malorie (0-5 Years) and At-Risk Patients (6-64 Years) (2 of 2 - PCV) 08/04/2012 08/04/[address] Lung Cancer Screening (Baseline) 2024 Zoster Vaccines (1 of 2) 2024 COVID-19 Vaccine ( season) 2024 10/27/2021, 03/22/2021, 03/01/2021 Influenza Vaccine (#1) 2024 , 08/03/2022, 10/27/2021 Alcohol/Substance Use Screening 10/29/2024 Depression Screening and Follow-Up 10/29/2024 Social Drivers of Health Mala ual Screening 10/29/2024 Cervical Cancer Screening 12/16/2024 Pap Smear 12/16/2024 12/16/2021 DTaP,Tdap,and Td Vaccines (3 - Td or Tdap) 03/08/2028 03/08/2018, 06/26/2008 RSV Vaccine (60+ years old a nd patients) (1 - 1-dose 75+ series) 2049 Insurance [employer] Care Teams Php Wordpress Developer Relationship Specialty Start Date End Date Ayala Patton PCP - General Internal Medicine 09/01/23
--- OUTSIDE RECORDS SUMMARY | 2024-11-20 23:45 | XMS_ITS | Encounter Summary ---
Author Organization [facility] Address [address] [place] [address] Care Team Providers Care Yarn Comber Name Role Phone Ayala Patton MD Primary Care Provider [phone] Encounter Details Date Type Department Care Team Description 02/25/2024 Hospital Medical Records [address] [place] [address] [facility] Social History Tobacco Use Types Packs/Day [...] on filedocumented in this encounter Care Teams Yarn Comber Relationship Specialty Start Date End Date Ayala Patton MD [address] [place] [address] [phone] PCP - General Internal Medicine 07/04/23 documented as of this encounter
--- OUTSIDE RECORDS SUMMARY | 2024-11-20 23:45 | XMS_ITS | Clinical Summary ---
Author Organization [address] Address [address] [place] [phone] Phone Care Team Providers Care Counter Intelligence Technician Name Role Phone Unavailable Primary Care Provider Unavailabl e Allergies No known active allergies Social History Tobacco Use Types Packs/Day Years Used Date Smoking Tobacco: Some Days Smokeless Tobacco: Never Alcohol Use Standard Drinks/Week Comments Yes 5 (1 standard drink = 0.6 oz pur e alcohol) AUDIT-C Answer Date Recorded Q1: How often do you have a drink containing alcohol? 4 or more times a week 04/20/2021 Q2: How many drinks containi ng alcohol do you have on a typical day when you are drinking? 3 or 4 Q3: How often do you have si x or more drinks on one occasion? Daily or almost daily 04/20/2021 PHQ-2 Answer Date Recorded PHQ-2 Total Score 1 04/20/2021 Comments Unknown Sex and Gender Information Value Date Recorded Sex Assigned at Not on file Legal Sex Female 3:24 PM EDT Gender Identity Not on file Sexual Orientation Not on file Last Filed Vital Signs Vital Sign Reading Time Taken Comments Blood Pressure 170/70 04/20/2021 10:54 PM EDT Pulse 62 04/20/2021 10:54 PM EDT Temperature 36.4 ??C (97.6 ??F) 04/20/2021 5:09 PM ED T Respiratory Rate 15 04/20/2021 9:08 PM EDT Oxygen Saturation 99% 04/20/2021 10:54 PM EDT Inhaled Oxygen Concentration - - Weight 53.1 kg (117 lb 1 oz) 04/20/2021 3:27 PM EDT Height 162.6 cm (5' 4 ) 04/20/2021 3:27 PM EDT Body Mass Index 20.09 04/20/2021 3:27 PM EDT Plan of Treatment Health Maintenance Due Date Last Done Comments HIV screening 1987 Hepatitis C screening 1992 Cervical cancer screening 1995 Lipid disorder screening 2014 Colon cancer screening, Colonoscopy 2019 Breast cancer screening 04/06/2023 04/06/2021 Diabetes screening 04/20/2024 04/20/2021 Influenza vaccine 05/29/2024 Shingles vaccine (Shingrix) (1 of 2 - Shingrix (RZV) 2 Dose Standard Series) 2024 Covid-19 vaccine series (3 - season) 2024 03/22/2021, 03/01/2021 Tetanus adult (Td q 10,TDAP once) 03/08/2028 03/08/2018 RSV Discussion (1 - 1-dose 7 5+ series) 2049 Meningococcal Vaccine Aged Out No marisol sixto eligible based on patient's age to complete this topic Pneumococcal Vaccine Aged Out No long er eligible based on patient's age to complete this topic Procedures Procedure Name Priority Date/Time Associated Diagnosis Comments COMPREHENSIVE METABOLIC PANEL STAT 04/20/2021 4:09 PM EDT from Last 3 Months or Most Recently Relevant to Health Maintenance Results * (ABNORMAL) Comprehensive metabolic panel (04/20/2021 4:09 PM EDT) Sodium 139 136 - 145 mmol/L 04/20/2021 4:42 PM [facility] Potassium 3.1(L) 3.5 - 5.1 mmol/L 04/20/2021 4:42 PM [facility] Chloride 103 98 - 107 mmol/L 04/20/2021 4:42 PM [facility] CO2 24 21 - 32 mmol/L 04/20/2021 4:42 PM [facility] Anion Gap 12 5 - 15 mmol/L 04/20/2021 4:42 PM [facility] Glucose 127(H) 65 - 110 mg/dL 04/20/2021 4:42 PM [facility] Comment: Non-fasting: ??65-110 mg/dL Fasting (minimum 6 hrs): ??65-99 mg/dL BUN 13 7 - 18 mg/dL 04/20/2021 4:42 PM [facility] Creatinine 0.55 0.55 - 1.02 mg/dL 04/20/2021 4:42 PM [facility] eGFR (-MOROCCAN) >60 >60 mL/min/1. 73m2 04/20/2021 4:42 PM [facility] eGFR (NON -French) >60 >60 mL/min/1. 73m2 04/20/2021 4:42 PM [facility] Comment: (NOTE) ? These are estimated GFR values resulting from ? utilization of a calculation incorporating ? the best data available for input, but all ? assumptions may not be correct in every ? case. ??In addition, there are several ? situations (elderly over 70 years, , ? serious co morbidities, extremes ? of body size or nutritional status) which ? could contribute to a misleading result. ? Therefore, clinical correlation is advised ? to prevent arriving at an erroneous ? conclusion based solely on the calculation ? utilized. Calcium 10.0 8.5 - 10.1 mg/dL 04/20/2021 4:42 PM [facility] Total Protein 7.3 6.4 - 8.2 g/dL 04/20/2021 4:42 PM [facility] Albumin 3.9 3.4 - 5.0 g/dL 04/20/2021 4:42 PM [facility] Globulin 3.4 2.5 - 5.0 g/dL 04/20/2021 4:42 PM [facility] Total Bilirubin 1.0 0.2 - 1.0 mg/dL 04/20/2021 4:42 PM [facility] Comment:Use of this assay is not recommended for patients undergoing treatment with Eltrombopag due to the potential for falsely elevated results. Alkaline Phosphatase 113 45 - 117 U/L 04/20/2021 4:42 PM EDT [facility] Alanine Aminotransferase (ALT) 22 12 - 78 U/L 04/20/2021 4:42 PM EDT [facility] Aspartate Aminotransferase (AST) 22 15 - 37 U/L 04/20/2021 4:42 PM EDT [facility] Blood Venipuncture / Unknown 04/20/2021 4:09 PM EDT 04/20/2021 4:09 PM EDT Dallas Momin MD LAB BLOOD ORDERABLES [place] [address], [facility] [phone] from Last 3 Months or Most Recently Relevant to Health Maintenance Insurance [id number] MEDICAID [id number] MEDICAID [id number] MEDICAID
--- OUTSIDE RECORDS SUMMARY | 2024-11-20 23:45 | XMS_ITS | Encounter Summary ---
Author Organization [facility] Address [address] [place] [address] Care Team Providers Care Application Technical Designer Name Role Phone Ayala Patton MD Primary Care Provider [phone] Encounter Details Date Type Department Care Team Description 12/12/2023 Hospital Medical Records [address] [place] [address] Ellen Neumann, MICHELA Social History Tobacco Use Types Packs/Day Years [...] on filedocumented in this encounter Care Teams Application Technical Designer Relationship Specialty Start Date End Date Ayala Patton MD [address] [place] [phone] PCP - General Internal Medicine 07/04/23 documented as of this encounter
--- OUTSIDE RECORDS SUMMARY | 2024-11-20 23:45 | XMS_ITS | Encounter Summary ---
Author Organization [facility] [place] [address] Care Team Providers Care Voip Engineer Name Role Phone Ayala Patton MD Primary Care Provider Reason for Visit * Reason Onset Date Comments ER follow up 11/18/2024 Encounter Details Date Type Department Care Team ([facility] st Contact Info) Description 11/18/2024 Telephone Adult Medicine [address] [phone] Joseline Martin RN ER follow up Social History Tobacco Use Types [...] for your loved ones. For example, child psychiatrist or elderly care for an older adult? [...] as of this encounter Progress Notes * Joseline Martin RN - 11/18/2024 7:16 AM EST Pt seen at [facility] 11/01 for abd pain Left vm for pt to return my call. documented in this encounter Plan of Treatment Upcoming Encounters Date Type Department Care Team (Late st Contact Info) Description 04/13/2025 11:30 AM EDT Office Visit Adult Medicine [facility] [address] [place] [address] Laura Nj PA [address] [place] [address] documented as of this encounter Visit Diagnoses Not on filedocumented in this encounter Additional Health Concerns Assessment Noted Time PHQ-9 Depression Total Score: 0 09/02/20 24 9:48 AM EST documented as of this encounter Care Teams Voip Engineer Relationship Specialty Start Date End Date Ayala Patton MD [address] [place] [address] PCP - General Internal Medicine 10/24/21 documented as of this encounter
--- OUTSIDE RECORDS SUMMARY | 2024-11-20 23:45 | XMS_ITS | Encounter Summary ---
Author Organization [facility] Address [address] [place] [address] Care Team Providers Care Specialty Sales Representative Name Role Phone Ayala Patton MD Primary Care Provider [phone] Reason for Visit * Reason Onset Date Comments hospital follow up 07/04/2023 [facility] Encounter Details Date Type Department Care Team Description 07/04/2023 Telephone Adult Medicine [facility] [address] [place] [address] [phone] Ayala Patton MD [address] [place] [address] [phone] hospital follow up ([facility] Social History Tobacco Use Types Packs/Day Years [...] PM EDT documented as of this encounter Miscellaneous Notes * Telephone Encounter - Nita Sneed - 08/20/2023 11:59 AM EDT Called and spoke with pt , appt booked for 08/21 at 2pm with * Telephone Encounter - Patti Mensah M.A. - 08/20/2023 11:40 AM EDT Pt DID have appt at 1:15 on 08/23; however, Dr. Patton is already double-booked at that time & pt nds hospital f/u rather than just a med review. Spoke w/pt, she was actually hospitalized at [facility]. Pt aware 08/23 appt has been cancelled. I do not have the authority to schedule a hospital f/u, will forward to correct parties to have this addressed. Pt aware she will be receiving a call from hospital f/u mill order scheduler. * Telephone Encounter - Nita Sneed - 07/04/2023 1:12 PM EDT Attempted to contact pt , phone line just rings unable to leave vm. * Telephone Encounter - Kay Patel R.N. - 07/04/2023 12:21 PM EDT Sending to Hospital follow -up coordinator Nita Billings * Telephone Encounter - Audra Richardson - 07/04/2023 11:56 AM EDT Hospital follow up appointment needed Hospital patient was treated at: [facility] Was this only an ER visit or was the patient admitted to the hospital? Admitted to hospital Date of visit if ER visit only: N/A If patient was admitted what was the date of discharge? 06/28 thru 06/29 Reason/diagnosis for visit or stay: alcohol withdrawal, low potassium and magnesium, electrolyte depletion When was the patient told to follow up? Needs appt early next week stating patient will need to have labs done to check potassium and magnesium Was visit or stay related to an injury? NO If yes, what was the date of injury (DOI)? N/A If yes, was the injury due to N/A documented in this encounter Plan of Treatment Not on file documented as of this encounter Visit Diagnoses Not on filedocumented in this encounter Care Teams Specialty Sales Representative Relationship Specialty Start Date End Date Ayala Patton MD [address] [place] [phone] PCP - General Internal Medicine 07/04/23 documented as of this encounter
--- OUTSIDE RECORDS SUMMARY | 2024-11-20 23:45 | XMS_ITS | Encounter Summary ---
Author Organization [facility] Address [address] [place] [address] Care Team Providers Care Log Driver Name Role Phone Mable Flynn MD Primary Care Provider Unavail able Ayala Patton MD Primary Care Provider [phone] Darrius Cross MD Primary Care Provider [phone] Ayala Patton MD Primary Care Provider Reason for Visit * Reason Onset Date Comments REFERRAL 03/11/2018 Encounter Details Date Type Department Care Team Description 03/11/2018 Telephone Physiatry - [address] [address] David Horne DO REFERRAL Social History Tobacco Use Types Packs/Day Years [...] encounter Miscellaneous Notes * Telephone Encounter - Anahy Garcia - 03/11/2018 12:42 PM EDT Patient was referred to Physiatry for back pain. Patient canceled appointment with and declined to reschedule. Patient will not be placed back on referrals report.FYI documented in this encounter Plan of Treatment Not on file documented as of this encounter Visit Diagnoses Not on filedocumented in this encounter Care Teams Log Driver Relationship Specialty Start Date End Date Mable Flynn MD PCP - General Internal Medicine 03/27/17 10/23/21 Ayala Patton MD [address] [place] [address] [phone] PCP - General Internal Medicine 10/24/21 03/20/23 Darrius Cross MD [address] [place] [phone] PCP - General Internal Medicine 03/21/23 07/03/23 Ayala Patton MD [address] [place] [address] [phone] PCP - General Internal Medicine 07/04/23 documented as of this encounter
--- OUTSIDE RECORDS SUMMARY | 2024-11-20 23:45 | XMS_ITS | Encounter Summary ---
Author Organization [facility] Address [address] [place] [address] Care Team Providers Care Shotblast Operator Name Role Phone Mable Flynn MD Primary Care Provider Unavail able Ayala Patton MD Primary Care Provider [phone] Darrius Cross MD Primary Care Provider [phone] Ayala Patton MD Primary Care Provider [phone] Encounter Details Date Type Department Care Team Description 03/30/2020 Lard Bleacher Report Medical Records [address] [place] [phone] Jax Ramesh Social History Tobacco Use Types Packs/Day Years [...] on filedocumented in this encounter Care Teams Shotblast Operator Relationship Specialty Start Date End Date Mable Flynn MD PCP - General Internal Medicine 03/27/17 10/23/21 Ayala Patton MD [address] [place] [address] [phone] PCP - General Internal Medicine 10/24/21 03/20/23 Darrius Cross MD [address] [place] [address] [place] [phone] PCP - General Internal Medicine 03/21/23 07/03/23 Ayala Patton MD [address] [place] [phone] PCP - General Internal Medicine 07/04/23 documented as of this encounter
--- OUTSIDE RECORDS SUMMARY | 2024-11-20 23:46 | XMS_ITS | Encounter Summary ---
Author Organization [facility] Address [address] [place] [address] Care Team Providers Care Software Design Manager Name Role Phone Ayala Patton MD Primary Care Provider [phone] Darrius Cross MD Primary Care Provider [phone] Ayala Patton MD Primary Care Provider Reason for Visit * Reason Onset Date Comments refill request 03/23/2022 Encounter Details Date Type Department Care Team Description 03/23/2022 Refill Adult Medicine [address] [phone] Ayala Patton MD [address] [place] [address] [phone] refill request Social History Tobacco Use Types [...] suspected to have Coronavirus/COVID-19? No / Unsure 03/08/2022 12:45 PM EDT documented as of this encounter Miscellaneous Notes * Telephone Encounter - Carito Olson - 03/23/2022 2:57 PM EDT Hernandez 01/27/22 Ov 05/05/22 Lab Results Component Value Date NA 140 03/17/2021 K 3.7 03/17/2021 CO2 27 03/17/2021 CL 104 03/17/2021 BUN 11 03/17/2021 CREAT 0.58 03/17/2021 GLU 96 03/17/2021 CA 10.0 03/17/2021 GFR > 60 03/17/2021 * Telephone Encounter - Glenis Mueller - 03/23/2022 1:32 PM EDT Patient would like script to be: E-PRESCRIBED/FAXED TO PHARMACY - pt is out of medication WHEN WAS THE PATIENT'S LAST APPOINTMENT IN ADULT MEDICINE? 01-27-22 WHEN WAS THE LAST TIME THE PATIENT SAW THEIR PCP? 11-28-21 Does patient have an upcoming appointment? Yes 05-05-22 (THE MEDICATION REQUESTED IS ON THE MED LIST ABOVE) All of the medications requested were on the CURRENT MEDS list Did you check the Pharmacy information above?: YES Patient wants: 90 -day supply with 1 refill per pt request Is this a mail order prescription request ? NO If the refill is from a FAXED refill request what is the RX # listed on the fax? N/A Patients current insurance carrier is: Payor: [employer] / Plan: [employer] / Product Type: MEDICAID [id number] documented in this encounter Plan of Treatment Not on file documented as of this encounter Visit Diagnoses Not on filedocumented in this encounter Care Teams Software Design Manager Relationship Specialty Start Date End Date Ayala Patton MD [address] [place] [phone] PCP - General Internal Medicine 10/24/21 03/20/23 Darrius Cross MD [address] [place] [phone] PCP - General Internal Medicine 03/21/23 07/03/23 Ayala Patton MD [address] [place] [address] PCP - General Internal Medicine 07/04/23 documented as of this encounter
--- OUTSIDE RECORDS SUMMARY | 2024-11-20 23:46 | XMS_ITS | Encounter Summary ---
Author Organization [facility] Address [address] [place] [address] Care Team Providers Care Trolley Operator Name Role Phone Ayala Patton MD Primary Care Provider [phone] Darrius Cross MD Primary Care Provider [phone] Ayala Patton MD Primary Care Provider [phone] Encounter Details Date Type Department Care Team Description 03/01/2023 Telephone Internal Medicine - [facility], [address] [place] [phone] Darrius Cross MD [address] [phone] Social History Tobacco Use Types Packs/Day [...] suspected to have Coronavirus/COVID-19? No / Unsure 03/02/2023 12:42 PM EDT documented as of this encounter Plan of Treatment Not on file documented as of this encounter Visit Diagnoses Not on filedocumented in this encounter Care Teams Trolley Operator Relationship Specialty Start Date End Date Ayala Patton MD [address] [place] [address] PCP - General Internal Medicine 10/24/21 03/20/23 Darrius Cross MD [address] [place] [phone] PCP - General Internal Medicine 03/21/23 07/03/23 Ayala Patton MD [address] [place] [address] PCP - General Internal Medicine 07/04/23 documented as of this encounter
--- OUTSIDE RECORDS SUMMARY | 2024-11-20 23:46 | XMS_ITS | Encounter Summary ---
Author Organization [facility] Address [address] [place] [address] Care Team Providers Care Body Make Up Artist Name Role Phone Darrius Cross MD Primary Care Provider [phone] Ayala Patton MD Primary Care Provider [phone] Encounter Details Date Type Department Care Team Description 03/21/2023 Telephone Adult Medicine [address] [address] Darrius Cross MD [address] [phone] Social History Tobacco Use Types [...] suspected to have Coronavirus/COVID-19? No / Unsure 03/21/2023 1:05 PM EDT documented as of this encounter Plan of Treatment Not on file documented as of this encounter Visit Diagnoses Not on filedocumented in this encounter Care Teams Body Make Up Artist Relationship Specialty Start Date End Date Darrius Cross MD [address] [facility] [address] [place] [phone] PCP - General Internal Medicine 03/21/23 07/03/23 Ayala Patton MD [address] [place] [phone] PCP - General Internal Medicine 07/04/23 documented as of this encounter
--- OUTSIDE RECORDS SUMMARY | 2024-11-20 23:46 | XMS_ITS | Encounter Summary ---
Author Organization [facility] Address [address] [place] [address] Care Team Providers Care Clerical Administrative Assistant Name Role Phone Mable Flynn MD Primary Care Provider Unavail able Ayala Patton MD Primary Care Provider [phone] Darrius Cross MD Primary Care Provider [phone] Ayala Patton MD Primary Care Provider [phone] Encounter Details Date Type Department Care Team Description 04/08/2018 Orders Only Adult Medicine [address] [phone] Mable Flynn MD Social History Tobacco Use [...] on filedocumented in this encounter Care Teams Clerical Administrative Assistant Relationship Specialty Start Date End Date Mable Flynn MD PCP - General Internal Medicine 03/27/17 10/23/21 Ayala Patton MD [address] [place] [address] [phone] PCP - General Internal Medicine 10/24/21 03/20/23 Darrius Cross MD [address] [place] [phone] PCP - General Internal Medicine 03/21/23 07/03/23 Ayala Patton MD [address] [place] [address] PCP - General Internal Medicine 07/04/23 documented as of this encounter
--- OUTSIDE RECORDS SUMMARY | 2024-11-20 23:46 | XMS_ITS | Encounter Summary ---
Author Organization [facility] Address [address] [place] [address] Care Team Providers Care Emotionally Impaired Teacher Name Role Phone Ayala Patton MD Primary Care Provider [phone] Darrius Cross MD Primary Care Provider [phone] Ayala Patton MD Primary Care Provider [phone] Encounter Details Date Type Department Care Team Description 06/28/2022 Orders Only Adult Medicine [address] [phone] Laura Nj PA-C [address] [place] [address] [phone] Social History Tobacco Use Types Packs/Day Years [...] on filedocumented in this encounter Care Teams Emotionally Impaired Teacher Relationship Specialty Start Date End Date Ayala Patton MD [address] [place] [address] [phone] PCP - General Internal Medicine 10/24/21 03/20/23 Darrius Cross MD [address] [place] [address] [address] [place] [phone] PCP - General Internal Medicine 03/21/23 07/03/23 Ayala Patton MD [address] [place] [phone] PCP - General Internal Medicine 07/04/23 documented as of this encounter
--- OUTSIDE RECORDS SUMMARY | 2024-11-20 23:46 | XMS_ITS | Encounter Summary ---
Author Organization [facility] Address [address] [place] [address] Care Team Providers Care Feed In Worker Name Role Phone Ayala Patton MD Primary Care Provider [phone] Darrius Cross MD Primary Care Provider [phone] Ayala Patton MD Primary Care Provider [phone] Encounter Details Date Type Department Care Team Description 03/16/2023 Hospital Medical Records [address] [place] [phone] [facility] Social History Tobacco Use Types [...] on filedocumented in this encounter Care Teams Feed In Worker Relationship Specialty Start Date End Date Ayala Patton MD [address] [place] [phone] PCP - General Internal Medicine 10/24/21 03/20/23 Darrius Cross MD [address] [place] [address] [address] [place] [phone] PCP - General Internal Medicine 03/21/23 07/03/23 Ayala Patton MD [address] [place] [phone] PCP - General Internal Medicine 07/04/23 documented as of this encounter
--- OUTSIDE RECORDS SUMMARY | 2024-11-20 23:46 | XMS_ITS | Encounter Summary ---
Author Organization [facility] Address [address] [place] [address] Care Team Providers Care Sales And Merchandising Associate Name Role Phone Mable Flynn MD Primary Care Provider Unavail able Ayala Patton MD Primary Care Provider [phone] Darrius Cross MD Primary Care Provider [phone] Ayala Patton MD Primary Care Provider [phone] Reason for Visit * Reason Onset Date Comments TEST RESULTS 07/17/2018 result notes Encounter Details Date Type Department Care Team Description 07/17/2018 Telephone Adult Medicine [address] [address] Belinda Johnson PA-C TEST RESULTS (result notes) [...] Telephone Encounter - Jonn Mason M.A. - 07/17/2018 9:57 AM EDT Numerous attempt trying to call patient can we send a letter please. There are no antibiotics needed as her urine sample did not grow any infection. documented in this encounter Plan of Treatment Not on file documented as of this encounter Visit Diagnoses Not on filedocumented in this encounter Care Teams Sales And Merchandising Associate Relationship Specialty Start Date End Date Mable Flynn MD PCP - General Internal Medicine 03/27/17 10/23/21 Ayala Patton MD [address] [place] [address] PCP - General Internal Medicine 10/24/21 03/20/23 Darrius Cross MD [address] [place] [phone] PCP - General Internal Medicine 03/21/23 07/03/23 Ayala Patton MD [address] [place] [phone] PCP - General Internal Medicine 07/04/23 documented as of this encounter
--- OUTSIDE RECORDS SUMMARY | 2024-11-20 23:46 | XMS_ITS | Encounter Summary ---
Author Organization [facility] Address [address] [place] [address] Care Team Providers Care Diesel Service Journeyman Name Role Phone Mable Flynn MD Primary Care Provider Unavail able Ayala Patton MD Primary Care Provider [phone] Darrius Cross MD Primary Care Provider [phone] Ayala Patton MD Primary Care Provider [phone] Encounter Details Date Type Department Care Team Description 08/28/2018 Athletic Coordinator Report Medical Records [address] [place] [id number] Steve Fontaine MD Social History Tobacco Use Types Packs/Day [...] on filedocumented in this encounter Care Teams Diesel Service Journeyman Relationship Specialty Start Date End Date Mable Flynn MD PCP - General Internal Medicine 03/27/17 10/23/21 Ayala Patton MD [address] [place] [address] [phone] PCP - General Internal Medicine 10/24/21 03/20/23 Darrius Cross MD [address] [place] [address] [place] [phone] PCP - General Internal Medicine 03/21/23 07/03/23 Ayala Patton MD [address] [place] [phone] PCP - General Internal Medicine 07/04/23 documented as of this encounter
--- OUTSIDE RECORDS SUMMARY | 2024-11-20 23:46 | XMS_ITS | Clinical Summary ---
Author Organization [facility] Address [address] [place] [address] Care Team Providers Care Chief Of Pediatric Urology Name Role Phone Ayala Patton MD Primary Care Provider [phone] Allergies No known active allergies Medications Medication Sig Dispensed Refills Start Date End Date Status Multiple Vitamins-Minerals (MULTIVITAMIN OR) Take 1 Tablet by mouth daily. 0 Active dicyclomine (BENTYL) 20 MG tablet TAKE 1 TABLET BY MOUTH THREE TIMES A DAY 0 12/06/2023 Active Ondansetron HCl (ZOFRAN OR) Take by mouth. 0 Active Magnesium 400 MG Tab Take 400 mg by mouth 2 times daily. 0 12/19/2023 Active Pancrelipase, Tfm-Lemp-Rdam, 8767-7785 units CAPSULE ENTERIC COATED PARTICLES Take 1 Capsule by mouth 3 times daily. 270 Capsule 1 04/08/2024 Active Carafate 1 GM/10ML suspension Take 10 mL by mouth 4 times daily (before meals and nightly). 1200 mL 5 04/08/2024 Active betamethasone dipropionate (DIPROLENE) 0.05 % cream Apply bid to affected area 30 g 3 04/08/2024 Active acamprosate (CAMPRAL) 333 MG tablet TAKE 1 TABLET BY MOUTH THREE TIMES A DAY 0 03/13/2024 Active amlodipine (NORVASC) 5 MG tablet Take 1 Tablet by mouth daily. 90 Tablet 1 07/10/2024 Active thiamine 100 MG tablet Take 1 Tablet by mouth daily for 360 days. 90 Tablet 3 07/10/2024 07/05/2025 Active trazodone (DESYREL) 100 MG tablet Take 1 Tablet by mouth at bedtime as needed for Sleep. 90 Tablet 1 07/10/2024 Active pantoprazole (PROTONIX) 40 MG tablet Take 1 Tablet by mouth daily. 90 Tablet 1 07/10/2024 Active folic acid (FOLVITE) 1 MG tablet Take 1 Tablet by mouth daily. 90 Tablet 1 07/10/2024 Active Cholecalciferol (Vitamin D3) 50 MCG (2000 UT) Tab Take 1 Tablet by mouth daily. 90 Tablet 2 07/10/2024 Active clonidine (CATAPRES) 0.1 MG tablet Take 1 Tablet by mouth 3 times daily as needed for Other (restlessness and anxiety) for up to 180 days. 270 Tablet 1 07/10/2024 01/06/2025 Active buPROPion (Wellbutrin XL) 150 MG 24 hr tablet Take 1 Tablet by mouth every morning for 180 days. 90 Tablet 1 07/10/2024 Active citalopram (CELEXA) 40 MG tablet Take 1 Tablet by mouth daily. 90 Tablet 1 07/10/2024 Active Active Problems Problem Noted Date Pancreatitis 01/28/2024 Overview: 01/19 Pancreatic insufficiency 12/17/2023 Diarrhea 03/21/2023 Overview: 03/21/2023 Had colonoscopy with negative biopsy other than multiple adenomas Suspect alcohol irritation of the Lining as etiology We will monitor Colon polyposis 03/02/2023 Overview: 03/02/2023 9 removed 02/18. 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 Vitamin D deficiency 04/24/2022 ASCUS with positive high risk HPV cervic al 01/03/2022 Overview: 03/02/202312/2021 PAP ASCUS + HPV ( neg 16/18/45) Colpo negative 02/2022 Repeat pap 1 year COVID-19 virus infection 11/22/2021 Overview: 12.8.21 Seizure 02/11/2021 Hyperlipidemia 03/13/2018 Anxiety and depression 08/13/2017 Overview: 05/25/2023 No SI/HI still more depressed On wellbutrin and Celexa Clonidine and hydroxyzine as needed Encourage patient to reconnect with [facility] for psychiatry work on therapy and psychiatry referrals Hospitalized July 2020 with suicidal ideations Liver lesion 05/11/2017 Overview: 3.0 x 2.1 x 3.1 cm right lobe liver lesion felt to be similar to 2.7 cm lesion described on CAT scan of 05/22/2011 similar on US 04/2018. MRI 05/2018 likely benign. Hep C w/o coma, chronic 01/04/2017 Overview: 03/02/2023 Reports treatment with with Peg IFN and cleared Repeat viral load Followed by Dr. Sheets @ [facility] GI Tobacco use 01/04/2017 GERD (gastroesophageal reflux disease) Hypertension Overview: Insomnia EtOH dependence Overview: Resolved Problems Problem Noted Date Resolved Date Hypokalemia 03/21/2023 08/16/2023 Overview: 05/25/2023 Had lab work done today Falls 03/02/2023 08/16/2023 Overview: 03/02/2023 ? 2/2 electrolyte abnormality Increase Magnesium dose Repeat labs Hit her head with fall but no headache and neuro exam WNL Did hit tailbone, but able to walk fine Check xray Tailbone injury 03/02/2023 08/16/2023 Depression 04/24/2018 04/26/2018 Abnormal uterine bleeding (AUB) 08/24/2017 08/10/2023 Overview: 08/16/[address] since 12/2017, AUB resolved Anxiety and depression 08/13/2017 8 Alcohol abuse 01/04/2017 04/26/2018 Benign hypertension 01/04/2017 2017 Depression 01/04/2017 08/13/2017 Anxiety 04/26/2018 Encounters Date Type Specialty Care Team Description 08/26/2024 Telephone Adult Med Ayala Patton MD hospital follow up from Last 3 Months Immunizations Name Administration Dates Next Due COVID-19 (Pfizer) 10/27/2021,03/22/2021,03/01/20 21 COVID-19 (Pfizer) Pt Reported 10/27/2021, 021 Hepatitis B > 19yrs 11/11/2003 Influenza (> 6 Months) 07/10/2024,08/21/2023,03/2022 Influenza Vaccine-preservati ve Free-quadrivalent 4 Years 08/21/2023 Influenza Vaccine-quadrivalent 4 Years Plus 09/30 Pneumoccoccal(Adult) Polysaccharide PPSV23 08/04 Tdap 03/08/2018,06/26/2008 Twinrix 08/21/2011 Family History Medical History Relation Name Comments TIA Father HTN, HLD Unclear etiology Mother HTN, Hep C Bipolar Disorder Sister Alcoholic CA Breast Negative Hx CA Ovarian Negative Hx Relation Name Status Comments Father Mother Sister Alive Social History Tobacco Use Types Packs/Day Years Used Date Smoking Tobacco: Every Day Cigarettes 0.3 30 Smokeless Tobacco: Never Tobacco Cessation:Ready to Q uit: Not Asked; Counseling Given: Not Answered Comments:less than ppk/dy Alcohol Use Standard Drinks/Week Comments Yes 3 (1 standard drink = 0.6 oz pur e alcohol) sober since 10/26/2021 Sex Assigned at Date Recorded Not on file Job Start Date Occupation Industry Not on file Not on file Not on file Last Filed Vital Signs Vital Sign Reading Time Taken Comments Blood Pressure 124/74 07/10/2024 1:40 PM EDT Pulse 78 07/10/2024 1:40 PM EDT Temperature 36.3 ??C (97.4 ??F) 07/10/2024 1:40 PM ED T Respiratory Rate 14 07/10/2024 1:40 PM EDT Oxygen Saturation 99% 05/25/2023 1:25 PM EDT Inhaled Oxygen Concentration - - Weight 56.1 kg (123 lb 11.2 oz) 07/10/2024 1:40 PM EDT Height 157.5 cm (5' 2 ) 07/10/2024 1:40 PM EDT Body Mass Index 22.63 07/10/2024 1:40 PM EDT Plan of Treatment Health Maintenance Due Date Last Done Comments MAMMOGRAM 04/06/2022 04/06/2021, 06/2021 (External Completion), 05/17/2018 (External Completion), Additional history exists CERVICAL CANCER SCREENING 12/16/20222021, 08/16/2018, 11/16/2016 (External Completion), Additional history exists BASELINE HEALTH EXAM 40-64 03/17/202303/17, 03/14/2021, 03/14/2021 (Completed), Additional history exists SHINGLES VACCINE (1 of 2) 2024 Covid-19 Vaccine (2022-11 4 season) 2024 10/27/2021, 10/27/2021, 03/22/2021, Additional history exists DEPRESSION SCREENING/FOLLOWUP 10/29/2024, 07/10/2024, 05/16/2024, Additional history exists SOCIAL NEEDS SCREENING 10/29/2024 , 11/24/2019 (Completed) COLON CANCER SCREENING 01/30/2025 3 (External Completion) TOBACCO CHECK/ADVISE 07/25/2026 07/25/2024, 07/10/2024, 07/07/2024, Additional history exists CHOLESTEROL SCREENING 10/20/2027 10/20/2022 , 03/17/2021, 03/08/2018, Additional history exists DTAP/TDAP/TD (3 - Td or Tdap) 03/08/2028, 03/08/2018, 06/26/2008 PNEUMOCOCCAL VACCINE FOR HIG H RISK PATIENTS (#1) 2039 08/04/2011 INFLUENZA Completed 07/10/2024, 07/30, 08/21/2023, Additional history exists Procedures Procedure Name Priority Date/Time Associated Diagnosis Comments AR CCIIV3 VACCINE PRESERVATIVE FREE 0.5 ML IM USE Routine 08/21/2024 10:24 AM EDT Need for prophylactic vaccination and inoculation against influenza from Last 3 Months Care Teams Chief Of Pediatric Urology Relationship Specialty Start Date End Date Ayala Patton MD [address] [place] [phone] PCP - General Internal Medicine 07/04/23
--- OUTSIDE RECORDS SUMMARY | 2024-11-20 23:46 | XMS_ITS | Encounter Summary ---
Author Organization [facility] Address [address] [place] [address] Care Team Providers Care Visual Artist Name Role Phone Ayala Patton MD Primary Care Provider Darrius Cross MD Primary Care Provider Ayala Patton MD Primary Care Provider [phone] Reason for Visit * Reason Onset Date Comments APPOINTMENT 07/27/2022 Encounter Details Date Type Department Care Team Description 07/27/2022 Telephone Adult Medicine [address] [phone] Ayala Patton MD [address] [place] [address] [phone] APPOINTMENT Social History Tobacco Use Types Packs/Day Years [...] encounter Miscellaneous Notes * Telephone Encounter - Maria G Winkler M.A. - 07/27/2022 1:26 PM EDT Left message for patient to call back. Her appt scheduled with Laura Nj tomorrow 07/28/22 fora f/u is not needed janee she has an apt with PCP on 08/11/2022 for the same thing. documented in this encounter Plan of Treatment Not on file documented as of this encounter Visit Diagnoses Not on filedocumented in this encounter Care Teams Visual Artist Relationship Specialty Start Date End Date Ayala Patton MD [address] [place] [phone] PCP - General Internal Medicine 10/24/21 03/20/23 Darrius Cross MD [address] [place] [phone] PCP - General Internal Medicine 03/21/23 07/03/23 Ayala Patton MD [address] [place] [phone] PCP - General Internal Medicine 07/04/23 documented as of this encounter
--- OUTSIDE RECORDS SUMMARY | 2024-11-20 23:46 | XMS_ITS | Encounter Summary ---
Author Organization [facility] Address [address] [place] [address] Care Team Providers Care Packer Inspector Name Role Phone Ayala Patton MD Primary Care Provider [phone] Darrius Cross MD Primary Care Provider [phone] Ayala Patton MD Primary Care Provider [phone] Encounter Details Date Type Department Care Team Description 11/09/2022 Furnace Roaster Report Medical Records [address] [place] [id number] Lilliana Sheets MD Social History Tobacco Use Types Packs/Day [...] suspected to have Coronavirus/COVID-19? No / Unsure 10/20/2022 1:51 PM EST documented as of this encounter Plan of Treatment Not on file documented as of this encounter Visit Diagnoses Not on filedocumented in this encounter Care Teams Packer Inspector Relationship Specialty Start Date End Date Ayala Patton MD [address] [place] [address] [phone] PCP - General Internal Medicine 10/24/21 03/20/23 Darrius Cross MD [address] [facility] [address] [place] [phone] PCP - General Internal Medicine 03/21/23 07/03/23 Ayala Patton MD [address] [place] [phone] PCP - General Internal Medicine 07/04/23 documented as of this encounter
[2024-11-20 23:50] VITALS: BP 147/94; PULSE 93; RESP 17; TEMP 36.4; O2SAT 99
[2024-11-21] VITALS (8 sets, daily range): BP systolic 128–167; BP diastolic 72–122; PULSE 75–102; RESP 16–20; TEMP 36.3–37.1; O2SAT 96–99; BMI 18.9
[2024-11-21] LABS: HCG Quantitative 4 mIU/mL
--- NOTE | 2024-11-21 00:21 | ED_ITS ---
HPI - General Adult General Chief complaint: Nausea/Vomiting/Diarrhea Stated complaint: vomiting , abd pain Time Seen by Provider: 11/20/24 22:54 Source: patient Mode of arrival: ambulatory Limitations: no limitations History of Present Illness ED Provider: Eleazar Mason HPI narrative: [place] 49-year-old female with past medical history of alcohol abuse, pancreatitis, hypokalemia hypomagnesemia presents to ED for abdominal pain, nausea, vomiting. Patient states she has been cutting down her alcohol drinking on her own. Patient states usually drinks a lot of alcohol but only had 2 drinks today. Patient was admitted this past September for acute on chronic pancreatitis with hypokalemia and hypomagnesemia. At CT scan did show lesion on pancreas at that time. Patient admits also having tremors. Patient is not having any hallucinations. Related Data Home Medications ?Medication ?Instructions ?Recorded ?Confirmed cholecalciferol (vitamin D3) 50 50 mcg PO DAILY 11/01/23 10/27/24 mcg (2,000 unit) tablet folic acid 1 mg tablet 1 mg PO DAILY 11/01/23 10/27/24 pantoprazole 40 mg tablet,delayed 40 mg PO DAILY@0630 11/01/23 10/27/24 release clonidine HCl 0.1 mg tablet 0.1 mg PO TID PRN Anxiety 12/10/23 10/27/24 citalopram 40 mg tablet 40 mg PO DAILY 02/26/24 10/27/24 thiamine HCl (vitamin B1) 100 mg 100 mg PO DAILY 09/26/24 10/27/24 tablet sucralfate 100 mg/mL oral 10 ml PO QID 10/27/24 10/27/24 suspension trazodone 100 mg tablet 100 mg PO BEDTIME PRN insomnia 10/27/24 10/27/24 Previous Rx's ?Medication ?Instructions ?Recorded amlodipine 5 mg tablet 5 mg PO DAILY #90 tabs 06/11/24 naltrexone 50 mg tablet 50 mg PO DAILY #90 tabs 10/07/24 potassium chloride 10 mEq 10 meq PO DAILY #20 caps 10/12/24 capsule,extended release magnesium oxide 400 mg (241.3 mg 400 mg PO BIDPC #180 tabs 11/01/24 magnesium) tablet Allergies Allergy/AdvReac Type Severity Reaction Status Date / Time No Known Allergies Allergy Verified 11/20/24 22:07 Review of Systems 2 Review of Systems: Abdominal pain, diarrhea, vomiting Yes all other systems are reviewed and are negative [facility] Past Medical History Medical History Clostridium difficile colitis Hypertension Alcohol use disorder, severe, dependence Alcohol use disorder Pancreatic insufficiency Gastroesophageal reflux disease Essential hypertension Mood disorder Cannabis use disorder Hepatitis C Tobacco use disorder Surgical History H/O colonoscopy (~01/2023) Social History Social History Household Members: Family Household Members Other:: Adult son Housing: House Do you presently have visiting nurse or other home services: No Alcohol intake: current Alcohol intake frequency: 3 or more drinks per day Alcohol type: hard liquor Comment: Pt refusing alarms, steady gait Patient Tobacco Use Status: Current everyday Tobacco user Tobacco use type: Cigarette Cigarette Packs Per Day: 0.5 Cigarettes Per Day: 10.0 Smoked in Last 30 Days: Yes e-Cigarette/Vaping Use: Currently Using Second Hand Smoke Exposure: No Use of substances other than those prescribed or required for medical reasons: Yes Substance Use Type: Crack/Cocaine and Marijuana Advance Directives: Yes Advance Directives on File: Yes Advance Directives Date on File: 12/10/23 Do you have a plan to hurt others: No Plan service: No Physical Exam ED Vital Signs: Vital Signs - 24 hr 11/20/24 22:06 11/20/24 23:08 11/20/24 23:25 Temperature 98.4 F Pulse Rate 117 H 95 99 Respiratory Rate 18 20 Blood Pressure 182/105 H 183/102 H 153/95 H Pulse Oximetry 98 97 Oxygen Delivery Method Room Air Nasal Cannula Oxygen Flow Rate 2 11/20/24 23:50 Temperature 97.6 F Pulse Rate 93 Respiratory Rate 17 Blood Pressure 147/94 H Pulse Oximetry 99 Oxygen Delivery Method Room Air Oxygen Flow Rate BMI result Body Mass Index 18.9 Const General: cooperative, healthy appearing, comfortable, no acute distress, well developed, alert, awake and Physically active Orientation/consciousness: patient oriented x3 HENMT Head: Yes normal to inspection, Yes No palpable skull fracture present, Yes normocephalic and Yes atraumatic Throat: Yes posterior oropharynx normal, Yes tonsils normal and Yes uvula midline Eyes General: appearance normal, both eyes and all related structures Neck Neck: Yes normal visual inspection, Yes full ROM, Yes no lymphadenopathy, Yes no meningeal signs, Yes trachea midline, Yes supple, No anterior neck swelling and No tender Chest Chest palpation & inspection: normal inspection of the chest and normal palpation of entire chest wall Resp Effort & Inspection: normal respiratory effort and able to speak in complete sentences Auscultation: clear to auscultation bilaterally Cardio Jugular venous distension: no JVD Heart sounds: S1 normal heart sound present and S2 normal heart sound present GI Palpation (GI): Soft to palpation, not firm, Tenderness to palpation present (GI) in the epigastrum, no guarding and not rigid General: Yes no CVA tenderness Back/Spine/Pelvis Back: no CVA tenderness and No back tenderness Skin General skin exam: no rashes or lesions noted, elasticity normal and turgor normal Neuro General: patient oriented x3, gait normal, tone normal, moves all extremities, Normal light touch and pain sensation, no meningeal signs, no focal motor deficits, CN's II-XI intact bilaterally and normal sensation to monofilament Extrem Other: tremors General: Yes normal to inspection, Yes full ROM and Yes capillary refill normal Psych Appearance: grossly normal, well kempt and not disheveled Medications Administered Discontinued Medications Generic Name Dose Route Start Last Admin Trade Name Freq PRN Reason Stop Dose Admin Magnesium Sulfate 2 gm in 50 mls @ 25 mls/hr 11/20/24 22:54 11/21/24 00:55 Magnesium Sulfate/H2o IV 11/21/24 00:53 Infused ONCE ONE Infusion Potassium Chloride 10 meq in 100 mls @ 100 mls/hr 11/20/24 22:54 11/21/24 00:56 Potassium Chloride/H20 IV 11/20/24 23:53 100 mls/hr ONCE ONE Administration Lorazepam 2 mg 11/20/24 22:56 11/20/24 23:01 Lorazepam 2 Mg/Ml Vial IVPUSH 11/20/24 22:57 2 mg ONCE ONE Administration Ondansetron HCl 4 mg 11/20/24 22:56 11/20/24 23:01 Ondansetron Hcl 4 Mg/2 Ml Vial IVPUSH 11/20/24 22:57 4 mg ONCE ONE Administration Potassium Chloride 40 meq 11/20/24 22:54 11/21/24 00:55 Potassium Chloride Packet 20 Meq Packet PO 11/20/24 22:55 40 meq ONCE ONE Administration Medical Decision Making Medical Decision Making [facility] Narrative: 49 yold female presents to ED for alcohol withdrawal, abdominal pain, and tremors. Patient is hypokalemic and hypomagnesemia. Patient is hypertensive and tachycardic most likely withdrawal. Patient given Ativan potassium and magnesium. Alcohol level less than 10 Fluids ordered. Lipase 17. Lipase when admitted in September for pancreatitis was 671. Most likely this is alcohol withdrawal malnutrition alcoholic ketoacidosis presentation. Case presents to hospitalist. 1:30am: Phenobarb protocol started for patient. EKG normal sinus rhythm. Differential Diagnosis Differential Diagnoses: The differential diagnosis associated with the presentation includes (Alcohol withdrawal, pancreatitis, hypomagnesemia hypokalemia) Admission/Observation Consideration of admission/observation: Escalation of care including admission/observation considered Consult Healthcare Provider Management of the patient was discussed with: Hospitalist (Dr. Bond) Lab Data [facility] Lab Attestation statement: I reviewed the patient's lab results. 11/20/24 22:11 11/20/24 22:11 Labs: Lab Results 11/20/24 11/20/24 Range/Units 22:11 23:48 WBC 8.3 (4.8-10.8) X10*3/uL RBC 4.08 L D (4.20-5.50) X10*6/uL Hgb 14.4 D (12.0-16.0) g/dl Hct 39.0 (37.0-47.0) % MCV 95.6 (80.0-98.0) fL MCH 35.3 H (27.0-33.0) pg MCHC 36.9 H (31.0-35.0) g/dl RDW 14.2 (11.0-16.0) % Plt Count 172 (160-400) X10*3/uL MPV 9.3 L (9.4-12.3) fL Immature Gran % (Auto) 0.4 (0.0-0.4) % Neut % (Auto) 76.5 H (45-73) % Lymph % (Auto) 17.8 L (20-40) % [place] % (Auto) 4.8 (2-11) % Eos % (Auto) 0.1 (0-4) % Baso % (Auto) 0.4 (0-2) % Lymph # (Auto) 1.5 (1.2-4.9) X10*3/uL [place] # (Auto) 0.4 (0.1-1.2) X10*3/uL Eos # (Auto) 0.0 (0.0-0.4) X10*3/uL Baso # (Auto) 0.0 (0.0-0.2) X10*3/uL Abs Immat Gran (auto) 0.03 (0.00-0.03) X10*3/uL Absolute Neuts (auto) 6.4 (2.0-8.3) x10*3/uL Absolute Nucleated RBC 0.000 (0.0-0.012) X10*3/uL Nucleated RBC % (auto) 0.0 (0.0-0.2) /100WBC Sodium 140 (135-145) mmol/L Potassium 2.7 L* D (3.3-5.1) mmol/L Chloride 102 (96-108) mmol/L Carbon Dioxide 14 L (22-29) mmol/L Anion Gap 27 H (12-20) BUN 10 (9-16) mg/dL Creatinine 0.61 (0.5-1.4) mg/dL Estim Creat Clear Calc 86.9 Estimated GFR > 60 Random Glucose 126 H (60-115) mg/dL Calcium 9.4 (8.4-10.2) mg/dL Magnesium 1.0 L* (1.6-2.6) mg/dL Total Bilirubin 0.6 (0.0-1.0) mg/dL AST 83 H (5-31) U/L ALT 19 (0-31) U/L Alkaline Phosphatase 162 H (39-117) U/L Total Protein 7.6 (6.5-8.0) g/dL Albumin 4.1 (3.5-5.0) g/dL Lipase 17 (8-78) U/L Beta HCG, Quant 4 mIU/mL Ethyl Alcohol < 10 mg/dL Influenza Type A (PCR) NEGATIVE (Negative) Influenza Type B (PCR) NEGATIVE (Negative) RSV RNA Qual (PCR) NEGATIVE (Negative) SARS-CoV-2 RNA (RT-PCR) NEGATIVE (Negative) Independent Interpretation I performed an independent interpretation of an: EKG (Normal sinus) Independent Historian Clinical information obtained from an independent historian. History obtained from or confirmed by: Other (patient) Critical Care Time Critical Care Time Critical Care Time: Yes Total Critical Care Time: 60 Attestation: Patient's alcohol withdrawal with alcoholic ketoacidosis and electrolyte deficiencies. Ativan, magnesium, potassium, ordered. Case accepted by hospitalist. Discharge Plan Discharge Clinical Impression: Alcohol withdrawal, Acute hypokalemia, Hypomagnesemia Patient Disposition: Admitted As Inpatient Print Language: [place] Citizen
[2024-11-21 00:32] LABS: Influenza A PCR NEGATIVE (Negative); Influenza B PCR NEGATIVE (Negative); Resp Syncy Virus RNA Qual PCR NEGATIVE (Negative); SARS COV2 PCR INHOUSE NEGATIVE (Negative)
[2024-11-21] MEDS: Potassium Chloride Packet 20 MEQ PACKET 40 MEQ PO (00:55)
[2024-11-21] MEDS: Potassium Chloride/H20 10 MEQ/100 ML PIGGYBACK 100 MEQ IV (00:56)
[2024-11-21] MEDS: PHENobarbitaL sodium 130 MG/ML VIAL 240 MG IM (01:39)
--- NOTE | 2024-11-21 01:45 | P.HPHOSP_ITS ---
History of Present Illness Date of Service: 11/21/24 Attending physician on admission: Jimena Pina Chief Complaint: Abdominal pain, vomiting and diarrhea Jackelyn Bledsoe is a 49 years old woman with past medical history significant alcohol abuse, C diff colitis, electrolyte imbalances (hypokalemia, hypomagnesemia), pancreatic insufficiency, chronic hep C infection and GERD cannabis use disorder, essential hypertension, mood disorder and multiple hospitalization due to GI symptoms (nausea, vomiting + abdominal pain) mostly attributed to gastritis secondary to alcohol abuse presents department complaining of generalized abdominal pain, nausea, vomiting and diarrhea. HPI was very difficult to obtain because at the time of evaluation the patient was very sedated (received Ativan 2 mg by ED). Patient stated that she continue to drink alcohol (4 nips daily) and smoke marijuana. In the ED, she was found to have stable vital signs, however blood pressure has been in the high side last blood pressure was 167/105. There is no tachycardia, fever or hypotension. Blood workup showed no leukocytosis. Hemoglobin is 14.4 platelets 172. There is significant hypokalemia, 2.7 and hypomagnesemia of 1.0. Bicarb is 14 BUN 10 and creatinine 0.61. AST and alk-phos slightly elevated with normal bilirubin and ALT. Lipase is also normal. test is 4. ETOH level is less than 10. Urine drug screen is not available. COVID-19, influenza and RSV are negative. Per chart review patient has had multiple abdominal testing (11 tests) over the last year including abdominal ultrasounds abdominal pelvis CT scans and HIDA scans. In summary this study showed findings such as: Hepatic steatosis, colonic diverticulitis, presence of IUD, mild colitis and normal bilateral scan (on last HIDA). ED tx: Magnesium 2 g IV, potassium 10 mEq IV, potassium chloride 40 mEq p.o., Ativan 2 mg IV, Zofran 4 mg IV, phenobarbital 240 mg IM Review of Systems 2 Review of Systems: All 12 systems were reviewed and normal except as noted in HPI. [facility] Medical History Clostridium difficile colitis Hypertension Alcohol use disorder, severe, dependence Alcohol use disorder Pancreatic insufficiency Gastroesophageal reflux disease Essential hypertension Mood disorder Cannabis use disorder Hepatitis C Tobacco use disorder Surgical History H/O colonoscopy (~01/2023) Social History Household Members: Family Household Members Other:: Adult son Housing: House Do you presently have visiting nurse or other home services: No Alcohol intake: current Alcohol intake frequency: 3 or more drinks per day Alcohol type: hard liquor Comment: Pt refusing alarms, steady gait Patient Tobacco Use Status: Current everyday Tobacco user Tobacco use type: Cigarette Cigarette Packs Per Day: 0.5 Cigarettes Per Day: 10.0 Smoked in Last 30 Days: Yes e-Cigarette/Vaping Use: Currently Using Second Hand Smoke Exposure: No Use of substances other than those prescribed or required for medical reasons: Yes Substance Use Type: Crack/Cocaine and Marijuana Advance Directives: Yes Advance Directives on File: Yes Advance Directives Date on File: 12/10/23 Do you have a plan to hurt others: No Plan service: No Meds Allergies Allergy/AdvReac Type Severity Reaction Status Date / Time No Known Allergies Allergy Verified 11/20/24 22:07 Active Medications: Current Medications Enoxaparin Sodium (Enoxaparin Sodium 40 Mg/0.4 Ml Syringe) 40 mg SUBCUT Q24H SAMANTHA Folic Acid (Folic Acid 1 Mg Tablet) 1 mg PO DAILY SAMANTHA Potassium Chloride/Sodium Chloride (Kcl 40 Meq In 0.9 % Sodium Chl) 40 meq in 1,000 mls @ 150 mls/hr IVCONT .Q6H40M SAMANTHA Acetaminophen (Ofirmev) 1,000 mg in 100 mls @ 400 mls/hr IV Q8H SAMATNHA Stop: 11/21/24 17:59 Thiamine HCl 100 mg/ Sodium (Chloride) 101 mls @ 202 mls/hr IV ONCE STA Stop: 11/21/24 02:11 Thiamine HCl 100 mg/ Sodium (Chloride) 101 mls @ 202 mls/hr IV DAILY SAMANTHA Ketorolac Tromethamine (Ketorolac Tromethamine 15 Mg/Ml Vial) 15 mg IVPUSH Q6H PRN PRN Reason: Pain, Severe (Pain Scale 7-10) Multivitamins/Vitamin C (Multivitamin Tablet) 1 tab PO DAILY SAMANTHA Ondansetron HCl (Ondansetron Hcl 4 Mg/2 Ml Vial) 4 mg IVPUSH Q8H PRN PRN Reason: Nausea and Vomiting Pharmacy Consult (Consult Rx Etoh Phenob Im/Po) 1 each MISCELLANE ONCE PRN; Protocol PRN Reason: Consult order Phenobarbital Sodium (Phenobarbital Sodium 130 Mg/Ml Vial) 180 mg IM Q3H [facility] Stop: 11/21/24 08:01 Sodium Chloride (0.9 % Sodium Chloride Flush 3 Ml Syringe) 3 ml IVFLUSH QSHIFT [facility] Home Medications ?Medication ?Instructions ?Recorded ?Confirmed ?Last Taken ?Type cholecalciferol (vitamin D3) 50 50 mcg PO DAILY 11/01/23 10/27/24 10/26/24 History mcg (2,000 unit) tablet folic acid 1 mg tablet 1 mg PO DAILY 11/01/23 10/27/24 10/26/24 History pantoprazole 40 mg tablet,delayed 40 mg PO DAILY@0630 11/01/23 10/27/24 10/26/24 History release clonidine HCl 0.1 mg tablet 0.1 mg PO TID PRN Anxiety 12/10/23 10/27/24 06/23/24 History citalopram 40 mg tablet 40 mg PO DAILY 02/26/24 10/27/24 10/26/24 History thiamine HCl (vitamin B1) 100 mg 100 mg PO DAILY 09/26/24 10/27/24 10/26/24 History tablet sucralfate 100 mg/mL oral 10 ml PO QID 10/27/24 10/27/24 10/26/24 History suspension trazodone 100 mg tablet 100 mg PO BEDTIME PRN insomnia 10/27/24 10/27/24 Unknown History Physical Exam 2 Vital Signs and Narrative: Vital Signs: Last Vital Signs Temp 97.6 F 11/20/24 23:50 Pulse 95 11/21/24 01:39 Resp 19 11/21/24 01:39 BP 167/105 H 11/21/24 01:39 Pulse Ox 98 11/21/24 01:39 O2 Del Method Nasal Cannula 11/21/24 01:39 O2 Flow Rate 2 11/21/24 01:39 BMI result Body Mass Index 18.9 Constitutional - sleeping, fall asleep immediately but answering some questions. No distress. HEENT - PERRL, EOMI. Normal sclerae. Dry oral mucosa. Heart - S1S2, RRR, No edema Abdomen - Normal lung expansion, Normal respiratory effort, No respiratory distress, CTA bilaterally Gastrointestinal - NT / ND; +BS; No rebound or guarding - No CVA tenderness Extremities - no calf tenderness bilaterally, no swelling Musculoskeletal - Normal inspection, normal ROM Skin - Warm/Dry Neurological - Sleeping. Psychological - depressed affect Results Labs 11/20/24 22:11 11/20/24 22:11 Labs: Laboratory Results - last 24 hr 11/20/24 11/20/24 22:11 23:48 MCV 95.6 MCH 35.3 H MCHC 36.9 H RDW 14.2 Plt Count 172 MPV 9.3 L Immature Gran % (Auto) 0.4 Neut % (Auto) 76.5 H Lymph % (Auto) 17.8 L [place] % (Auto) 4.8 Eos % (Auto) 0.1 Baso % (Auto) 0.4 Lymph # (Auto) 1.5 [place] # (Auto) 0.4 Eos # (Auto) 0.0 Baso # (Auto) 0.0 Abs Immat Gran (auto) 0.03 Absolute Neuts (auto) 6.4 Absolute Nucleated RBC 0.000 Nucleated RBC % (auto) 0.0 Anion Gap 27 H Estim Creat Clear Calc 86.9 Estimated GFR > 60 Random Glucose 126 H Calcium 9.4 Magnesium 1.0 L* Total Bilirubin 0.6 AST 83 H ALT 19 Alkaline Phosphatase 162 H Total Protein 7.6 Albumin 4.1 Lipase 17 Beta HCG, Quant 4 Ethyl Alcohol < 10 Influenza Type A (PCR) NEGATIVE Influenza Type B (PCR) NEGATIVE RSV RNA Qual (PCR) NEGATIVE SARS-CoV-2 RNA (RT-PCR) NEGATIVE Assessment and Plan (1) Acute hypokalemia: Status: Acute (2) Alcohol withdrawal: Qualifiers: Complication of substance-induced condition: uncomplicated Qualified Code(s): F10.930 - Alcohol use, unspecified with withdrawal, uncomplicated Status: Acute (3) Diarrhea: Qualifiers: Diarrhea type: presumed infectious Qualified Code(s): R19.7 - Diarrhea, unspecified Status: Acute (4) Abdominal pain with vomiting: Status: Acute Plan Jackelyn Bledsoe is a 49 y/o woman with PMHx significant alcohol abuse, C diff colitis, pancreatic insufficiency, chronic hep C infection, GERD, cannabis use disorder and multiple hospitalization due to GI symptoms admitted with: * Generalized abdominal pain, nausea, vomiting and diarrhea + history of C diff. Cannabinoid vomiting syndrome? C diff infection? Likely associated underlying gastritis secondary to alcohol. Admit to hospitalist service. NPO except for medications. Continue IV hydration. Avoid antidiarrhea medications for now. Check C diff and GI panel. We will start empiric treatment with vancomycin. Antiemetic therapy as needed. Pain control with Tylenol and Toradol IV. Of note: Patient has undergone about 11 imaging/testing for gastrointestinal system including abdominal pelvis CT scan, abdominal ultrasound and HIDA scans: All basically unremarkable except for fatty liver, colonic diverticulosis without diverticulitis and the presence of IUD. * Alcohol withdrawal/alcohol abuse. First dose phenobarbital started in the ED. continue CIWA and phenobarbital protocol as well as thiamine, folic acid and multivitamins. Check urine drug screen to assess for concomitant use of other drugs. * Multiple electrolyte imbalances: Hypomagnesemia, hypokalemia secondary to vomiting and diarrhea. Replete as needed. IV fluids with 40 mEq of KCl ordered. Continue to monitor electrolytes levels. * Essential hypertension. Continue home medications. * Mood disorder. Continue home medications. * GERD. On PPI. DVT prophylaxis: Lovenox Code status: Full Patient will need hospitalization for at least 2 midnights for gastrointestinal symptoms treatment evaluation with IV fluids, empiric antibiotic therapy and further investigation. Quality Stroke Does the patient have a stroke diagnosis?: No VTE Prior VTE?: No VTE Risk Level:: Medical - moderate - high VTE Device Contraindication: Treatment Not Indicated VTE Drug Contraindication: N/A - Med Ordered
[2024-11-21] MEDS: Thiamine HCL 100 MG in 0.9 % Sodium Chloride 100 ML 202 MG IV ×2 (02:09→09:21)
[2024-11-21] MEDS: vancomycin HCL 125 MG CAPSULE 250 MG PO ×3 (02:28→13:24)
--- NOTE | 2024-11-21 03:24 | PC.NURSE ---
patient resting quietly in room w/ no obvious signs/symptoms of distress noted. remains NSR on monitor. call yarbrough within reach.
[2024-11-21] MEDS: KCl 20 mEq in 5% Dex/0.9% Sod 20 MEQ/1,000 ML IV.SOLN 125 MEQ IVCONT ×3 (04:52→20:08)
[2024-11-21] MEDS: PHENobarbitaL sodium 130 MG/ML VIAL 180 MG IM ×2 (04:52→09:20)
--- NOTE | 2024-11-21 05:01 | PC.NURSE ---
patient stating that she cannot take acetaminophen or ibuprofen due to kidney and liver issues. stating she has received morphine in the past. IV fluids infusing, medicated per the MAR. call yarbrough placed within reach
--- NOTE | 2024-11-21 05:19 | MHC.EDTECH ---
This pct assumed care of Patient at 0445am ,vitals taken ,Patient asleep ,no apparent distress noted ,Still waiting to collect urine sample ,Call yarbrough within Pt reach .
[2024-11-21] MEDS: Multivitamin TABLET 1 TAB PO (09:21)
[2024-11-21] MEDS: Enoxaparin Sodium 40 MG/0.4 ML SYRINGE SUBCUT (09:21)
[2024-11-21] MEDS: Magnesium Oxide 400 MG TABLET PO ×2 (09:21→17:27)
[2024-11-21] MEDS: Folic Acid 1 MG TABLET PO (09:21)
[2024-11-21] MEDS: 0.9 % Sodium Chloride Flush 3 ML SYRINGE IVFLUSH (09:22)
[2024-11-21 10:20] LABS: MANUAL DIFF FLAG NO
[2024-11-21 10:28] LABS: Basophils Percent Auto 0.6 % (0-2); Eosinophils Absolute Auto 0.1 X10*3/uL (0.0-0.4); Eosinophils Percent Auto 1.3 % (0-4); Hematocrit 37.4 % (37.0-47.0); Hemoglobin 12.9 g/dl (12.0-16.0); Imm Gran Abs Auto 0.03 X10*3/uL (0.00-0.03); Imm Gran Pct Auto 0.4 % (0.0-0.4); Lymphocytes Absolute Auto 1.8 X10*3/uL (1.2-4.9); Lymphocytes Percent Auto 24.8 % (20-40); Mean Corpuscular HGB Conc 34.5 g/dl (31.0-35.0); Mean Corpuscular Hemoglobin 34.2 pg (27.0-33.0); Mean Corpuscular Volume 99.2 fL (80.0-98.0); Mean Platelet Volume 10.1 fL (9.4-12.3); Monocytes Absolute Auto 0.5 X10*3/uL (0.1-1.2); Monocytes Percent Auto 6.4 % (2-11); Neutrophils Absolute Auto 4.8 x10*3/uL (2.0-8.3); Neutrophils Percent Auto 66.5 % (45-73); Platelet Count 149 X10*3/uL (160-400); Red Blood Count 3.77 X10*6/uL (4.20-5.50); Red Cell Distribution Width 14.1 % (11.0-16.0); White Blood Count 7.2 X10*3/uL (4.8-10.8)
--- NOTE | 2024-11-21 10:53 | MHC.CM.PN ---
PT REPORTS SHE LIVES WITH HER SON AND IS INDEPENDENT WITH CARE SHE HAS NO DME AND NO SERVICES HCP ON FILE PCP: BRENNEN SOUZA DCP: HOME NO SERVICES VIA PRIVATE TRANSPORT
[2024-11-21 11:11] LABS: Alanine Aminotransferase 13 U/L (0-31); Albumin Level 3.7 g/dL (3.5-5.0); Anion Gap 15 (12-20); Aspartate Amino Transferase 85 U/L (5-31); Bilirubin Total 0.8 mg/dL (0.0-1.0); Blood Urea Nitrogen 9 mg/dL (9-16); Calcium 8.7 mg/dL (8.4-10.2); Carbon Dioxide 24 mmol/L (22-29); Chloride 108 mmol/L (96-108); Creatinine Clr Calc Pharmacy 91.4; Estimated Glomerular Filt Rate > 60; Glucose Random 133 mg/dL (60-115); Magnesium 1.6 mg/dL (1.6-2.6); Potassium 3.8 mmol/L (3.3-5.1); Sodium 143 mmol/L (135-145); Total Protein 6.7 g/dL (6.5-8.0)
--- NOTE | 2024-11-21 11:30 | PHA.MEDREC ---
Addendum entered by Hazel Meyer [facility] 11/21/24 12:19: Tried to speak to patient x 3 but patient is lethargic. Chose to keep welbutrin and naltrexone as patient just recenetly picked these up. However Potassium chloride was only for 20 days in september of 2024 and sucralfate was for surgery. Original Note: Pharmacy Consult ? Medication Reconciliation Pharmacy has completed the medication reconciliation. Went to speak with patient and she was very sleepy and in and out of consciousness but was able to tell me she took her medications last about 2 days ago and stated her son at home Tc should be able to confirm the medications. I called and spoke with the son and he was able to confirm the patients medications except the Bupropion HCL 150mg tab, Magnesium Oxide 400mg, Naltrexone 50mg, Potassium Chloride 10meq or Sucralfate 100 mg/mL 10 and stated he is not sure if his mom is taking them or not; once the patient is more awake we will go back and confirm if she is taking those medications.
[2024-11-21] MEDS: Acetaminophen 1,000 MG/100 ML PIGGYBACK 400 MG IV (13:23)
[2024-11-21] MEDS: cloNIDine HCL 0.1 MG TABLET PO ×2 (13:23→20:04)
[2024-11-21] MEDS: Ketorolac Tromethamine 15 MG/ML VIAL IVPUSH ×2 (13:24→18:30)
--- NOTE | 2024-11-21 14:00 | MHC.CLN ---
NUTRITION CURRENTLY NPO. 10% SIGNIFICANT WEIGHT LOSS X 6 MONTHS. HX C-DIFF COLITIS, ABDOMINAL PAIN. ETOH ABUSE AND GI SYMPTOMS LIKELY CAUSALS OF WEIGHT LOSS. BMI=18.9, UNDERWEIGHT. FOLLOW FOR DIET ADVANCEMENT AND PO INTAKE. PROVIDE SUPPLEMENT IF PREFERRED. SEE CLINICAL NUTRITION ASSESSMENT 11/21/24.
[2024-11-21 14:10] LABS: Alkaline Phosphatase 148 U/L (39-117)
[2024-11-21 14:30] LABS: CDiff Gene PCR POSITIVE (Negative)
[2024-11-21 14:55] LABS: Adenovirus F 40/41 Not Detected (Not Detect.); Astrovirus Not Detected (Not Detect.); Campylobacter Not Detected (Not Detect.); Cryptosporidium Not Detected (Not Detect.); Cyclospora cayetanensis Not Detected (Not Detect.); E. coli EAEC Not Detected (Not Detect.); E. coli EPEC Not Detected (Not Detect.); E. coli ETEC Not Detected (Not Detect.); E. coli STEC Not Detected (Not Detect.); Entamoeba histolytica Not Detected (Not Detect.); Giardia lamblia Not Detected (Not Detect.); Norovirus GI/GII Not Detected (Not Detect.); Plesiomonas shigelloides Not Detected (Not Detect.); Rotavirus A Not Detected (Not Detect.); Salmonella Not Detected (Not Detect.); Sapovirus Not Detected (Not Detect.); Shigella sp./EIEC Not Detected (Not Detect.); Vibrio Not Detected (Not Detect.); Vibrio Cholerae Not Detected (Not Detect.); Yersinia enterocolitica Not Detected (Not Detect.)
[2024-11-21 15:09] LABS: CDIFF Internal ctrl Dots and bkg OK (V); CDiff Toxin Positive (Negative)
--- NOTE | 2024-11-21 17:24 | PM.EVENT ---
Event Note Date of Service: 11/21/24 Event Note: Seen and examined this morning Follow-up for diarrhea, C diff, alcohol withdrawal Reporting epigastric abdominal pain, nausea, diarrhea This is a 49 y/o woman with PMHx significant alcohol abuse, C diff colitis, pancreatic insufficiency, chronic hep C infection, GERD, cannabis use disorder and multiple hospitalization due to GI symptoms admitted with: Generalized abdominal pain, nausea, vomiting and diarrhea likely due to cdif and possible associated underlying gastritis due to alcohol use cdif pcr and toxin a + continue po vanco GI panel negative Continue IV hydration Pain control with Tylenol and Toradol IV. reviewing chart - patient has been treated for cdif in the past, 06/21 and 10/21 pcr +but toxin negative but treated with po vanco; will consult ID for ?recurrent cdif Alcohol withdrawal/alcohol abuse. continue phenobarbitol continue CIWA and phenobarbital protocol continue thiamine, folic acid and multivitamins seen by addiction medicine earlier this month Multiple electrolyte imbalances: Hypomagnesemia, hypokalemia secondary to vomiting and diarrhea resolved with replacement continue IV fluids with Continue to monitor electrolytes levels. Essential hypertension. Continue norvasc Mood disorder. Continue home medications. GERD. On PPI. DVT prophylaxis: Lovenox Code status: Full Patient will need hospitalization for at least 2 midnights for gastrointestinal symptoms treatment evaluation with IV fluids, empiric antibiotic therapy and further investigation. Time Spent With Patient Time: Total time managing care of this patient today ____ minutes.
[2024-11-21] MEDS: PHENobarbitaL 30 MG TABLET PO (17:27)
[2024-11-21] MEDS: vancomycin HCL 125 MG CAPSULE PO ×2 (17:27→23:30)
--- NOTE | 2024-11-21 20:25 | HO.ADDICT_ITS ---
History of Present Illness Date of Service: 11/21/2024 Chief Complaint: acute colitis Reason for Consult: AUD Sources of Information: patient interviewed and chart reviewed HPI Narrative: Patient is a 49 year old female who presented to [facility] ED reporting abdominal pain, admitted with alcohol withdrawal and electrolyte imbalance. Patient with severe alcohol use disorder, known to [facility] via previous admissions including one earlier this month. Seen in room 387. Patient awake, laying in bed, ill appearing. She reports she has been cutting down alcohol intake on her own. States most recently she drank 2 nips. She verbalized frustration and disappointment at being hospitalized again. Withdrawal well managed with phenobarb at this time Patient thanked this rfp writer for checking in and stated, I know where to find you guys, one day I will get there . Review of Systems Constitutional: Reports as per HPI Diagnostics Vital Signs (24Hr): Vital Signs - 24 hr 11/20/24 22:06 11/20/24 23:08 11/20/24 23:25 Temperature 98.4 F Pulse Rate 117 H 95 99 Respiratory Rate 18 20 Blood Pressure 182/105 H 183/102 H 153/95 H Pulse Oximetry 98 97 Oxygen Delivery Method Room Air Nasal Cannula Oxygen Flow Rate 2 11/20/24 23:50 11/21/24 01:39 11/21/24 02:27 Temperature 97.6 F Pulse Rate 93 95 94 Respiratory Rate 17 19 16 Blood Pressure 147/94 H 167/105 H 129/80 Pulse Oximetry 99 98 99 Oxygen Delivery Method Room Air Nasal Cannula Nasal Cannula Oxygen Flow Rate 2 2 11/21/24 05:18 11/21/24 08:57 11/21/24 12:19 Temperature 98.6 F 97.4 F Pulse Rate 82 102 H 80 Respiratory Rate 16 18 Blood Pressure 151/82 H 161/122 H 128/72 Pulse Oximetry 96 96 Oxygen Delivery Method Nasal Cannula Room Air Oxygen Flow Rate 3 11/21/24 15:26 11/21/24 19:36 11/21/24 20:04 Temperature 98.8 F 97.4 F Pulse Rate 77 75 Respiratory Rate 20 20 Blood Pressure 142/72 H 159/80 H 159/80 H Pulse Oximetry 98 97 Oxygen Delivery Method Room Air Room Air Oxygen Flow Rate BMI result Body Mass Index 18.9 Labs 11/21/24 09:57 11/21/24 09:57 Labs: Laboratory Results - last 48 hr 11/20/24 11/20/24 11/21/24 22:11 23:48 09:57 WBC 8.3 7.2 RBC 4.08 L D 3.77 L Hgb 14.4 D 12.9 Hct 39.0 37.4 MCV 95.6 99.2 H MCH 35.3 H 34.2 H MCHC 36.9 H 34.5 RDW 14.2 14.1 Plt Count 172 149 L MPV 9.3 L 10.1 Immature Gran % (Auto) 0.4 0.4 Neut % (Auto) 76.5 H 66.5 Lymph % (Auto) 17.8 L 24.8 [place] % (Auto) 4.8 6.4 Eos % (Auto) 0.1 1.3 Baso % (Auto) 0.4 0.6 Lymph # (Auto) 1.5 1.8 [place] # (Auto) 0.4 0.5 Eos # (Auto) 0.0 0.1 Baso # (Auto) 0.0 0.0 Abs Immat Gran (auto) 0.03 0.03 Absolute Neuts (auto) 6.4 4.8 Absolute Nucleated RBC 0.000 0.000 Nucleated RBC % (auto) 0.0 0.0 Sodium 140 143 Potassium 2.7 L* D 3.8 D Chloride 102 108 Carbon Dioxide 14 L 24 Anion Gap 27 H 15 BUN 10 9 Creatinine 0.61 0.58 Estim Creat Clear Calc 86.9 91.4 Estimated GFR > 60 > 60 Random Glucose 126 H 133 H Calcium 9.4 8.7 D Magnesium 1.0 L* 1.6 Total Bilirubin 0.6 0.8 AST 83 H 85 H ALT 19 13 Alkaline Phosphatase 162 H 148 H Total Protein 7.6 6.7 Albumin 4.1 3.7 Lipase 17 Beta HCG, Quant 4 Stl C. cayetanensis PCR Stool Rotavirus A PCR Stl Adenov F 40/41 PCR Stool Astrovirus (PCR) Stool Campylobacter PCR Stool Cryptosporidium PCR Stl Sh Tox Pr E STEC PCR Stool E coli O157 PCR Stl Enterotoxigenic E PCR Stool EPEC (PCR) Stool EAEC (PCR) Stl E. histolytica PCR Stool Giardia Lamblia PCR Stl P. shigelloides PCR Stool Salmonella PCR Stool Sapovirus (PCR) Stl Shigella/EIEC PCR St Y.enterocolitica PCR Stool Vibrio (PCR) Stl Vibrio cholerae PCR Stl Norovirus GI/GII PCR Ethyl Alcohol < 10 C. difficile Tox B Gene C. difficile Toxin A&B C. difficile Interpret Influenza Type A (PCR) NEGATIVE Influenza Type B (PCR) NEGATIVE RSV RNA Qual (PCR) NEGATIVE SARS-CoV-2 RNA (RT-PCR) NEGATIVE 11/21/24 11:12 WBC RBC Hgb Hct MCV MCH MCHC RDW Plt Count MPV Immature Gran % (Auto) Neut % (Auto) Lymph % (Auto) [place] % (Auto) Eos % (Auto) Baso % (Auto) Lymph # (Auto) [place] # (Auto) Eos # (Auto) Baso # (Auto) Abs Immat Gran (auto) Absolute Neuts (auto) Absolute Nucleated RBC Nucleated RBC % (auto) Sodium Potassium Chloride Carbon Dioxide Anion Gap BUN Creatinine Estim Creat Clear Calc Estimated GFR Random Glucose Calcium Magnesium Total Bilirubin AST ALT Alkaline Phosphatase Total Protein Albumin Lipase Beta HCG, Quant Stl C. cayetanensis PCR Not Detected Stool Rotavirus A PCR Not Detected Stl Adenov F 40/41 PCR Not Detected Stool Astrovirus (PCR) Not Detected Stool Campylobacter PCR Not Detected Stool Cryptosporidium PCR Not Detected Stl Sh Tox Pr E STEC PCR Not Detected Stool E coli O157 PCR TNP Stl Enterotoxigenic E PCR Not Detected Stool EPEC (PCR) Not Detected Stool EAEC (PCR) Not Detected Stl E. histolytica PCR Not Detected Stool Giardia Lamblia PCR Not Detected Stl P. shigelloides PCR Not Detected Stool Salmonella PCR Not Detected Stool Sapovirus (PCR) Not Detected Stl Shigella/EIEC PCR Not Detected St Y.enterocolitica PCR Not Detected Stool Vibrio (PCR) Not Detected Stl Vibrio cholerae PCR Not Detected Stl Norovirus GI/GII PCR Not Detected Ethyl Alcohol C. difficile Tox B Gene POSITIVE A* C. difficile Toxin A&B Positive A* C. difficile Interpret SEE NOTE Influenza Type A (PCR) Influenza Type B (PCR) RSV RNA Qual (PCR) SARS-CoV-2 RNA (RT-PCR) Mental Status Exam Mental Status Exam Patient Behavior: Appropriate Mood Description: Flat Affect Description: Flat Speech Pattern: Clear Thought Process: Intact Thought Content: positive for Intact Medications Medications Current Medications Amlodipine Besylate (Amlodipine Besylate 5 Mg Tablet) 5 mg PO DAILY [facility]THA; Protocol Bupropion HCl (Bupropion Hcl Xl 150 Mg Tab.Er.24h) 150 mg PO DAILY [facility] Clonidine HCl (Clonidine Hcl 0.1 Mg Tablet) 0.1 mg PO TID PRN; Protocol PRN Reason: Anxiety Last Admin: 11/21/24 20:04 Dose: 0.1 mg Enoxaparin Sodium (Enoxaparin Sodium 40 Mg/0.4 Ml Syringe) 40 mg SUBCUT Q24H [facility] Last Admin: 11/21/24 09:21 Dose: 40 mg Escitalopram Oxalate (Escitalopram Oxalate 20 Mg Tablet) 20 mg PO DAILY [facility] Folic Acid (Folic Acid 1 Mg Tablet) 1 mg PO DAILY [facility] Last Admin: 11/21/24 09:21 Dose: 1 mg Thiamine HCl 100 mg/ Sodium (Chloride) 101 mls @ 202 mls/hr IV DAILY [facility] Last Infusion: 11/21/24 09:58 Dose: Infused Acetaminophen (Ofirmev) 1,000 mg in 100 mls @ 400 mls/hr IV Q8H [facility] Stop: 11/21/24 22:14 Last Infusion: 11/21/24 13:45 Dose: Infused Potassium Chloride/Dextrose/Sod Cl (Kcl 20 Meq In 5% Dex/0.9% Sod) 20 meq in 1,000 mls @ 125 mls/hr IVCONT .Q8H [facility] Last Admin: 11/21/24 20:08 Dose: 125 mls/hr Ketorolac Tromethamine (Ketorolac Tromethamine 15 Mg/Ml Vial) 15 mg IVPUSH Q6H PRN PRN Reason: Pain, Severe (Pain Scale 7-10) Last Admin: 11/21/24 18:30 Dose: 15 mg Magnesium Oxide (Magnesium Oxide 400 Mg Tablet) 400 mg PO BIDPC [facility] Last Admin: 11/21/24 17:27 Dose: 400 mg Multivitamins/Vitamin C (Multivitamin Tablet) 1 tab PO DAILY [facility] Last Admin: 11/21/24 09:21 Dose: 1 tab Ondansetron HCl (Ondansetron Hcl 4 Mg/2 Ml Vial) 4 mg IVPUSH Q8H PRN PRN Reason: Nausea and Vomiting Pantoprazole Sodium (Pantoprazole Sodium 40 Mg/10 Ml Vial) 40 mg IVPUSH DAILY@0630 [facility] Last Admin: 11/21/24 09:23 Dose: Not Given Pharmacy Consult (Consult Rx Etoh Phenob Im/Po) 1 each MISCELLANE ONCE PRN; Protocol PRN Reason: Consult order Phenobarbital (Phenobarbital 30 Mg Tablet) 30 mg PO BID@0600,1800 [facility] Stop: 11/23/24 06:01 Last Admin: 11/21/24 17:27 Dose: 30 mg Phenobarbital (Phenobarbital 15 Mg Tablet) 15 mg PO BID [facility] Stop: 11/25/24 09:01 Phenobarbital (Phenobarbital 15 Mg Tablet) 15 mg PO DAILY [facility] Stop: 11/27/24 09:01 Sodium Chloride (0.9 % Sodium Chloride Flush 3 Ml Syringe) 3 ml IVFLUSH QSHIFT [facility] Last Admin: 11/21/24 14:04 Dose: Not Given Trazodone HCl (Trazodone Hcl 100 Mg Tablet) 100 mg PO BEDTIME PRN PRN Reason: insomnia Vancomycin HCl (Vancomycin Hcl 125 Mg Capsule) 125 mg PO Q6H [facility] Last Admin: 11/21/24 17:27 Dose: 125 mg Allergies Allergies Allergy/AdvReac Type Severity Reaction Status Date / Time No Known Allergies Allergy Verified 11/20/24 22:07 Assessment & Plan Assessment & Plan (1) Alcohol use disorder, severe, dependence: Status: Acute Code(s): F10.20 - Alcohol dependence, uncomplicated Assessment and Plan: * withdrawal managed with phenobarbitol * patient to follow up with [facility] outpatient when ready * will follow up after the weekend Total time managing care of this patient today _25___ minutes. [facility] Past Medical History Medical History (Updated 11/21/24 @ 20:46 by Heide Paul CNP) Alcohol use disorder, severe, dependence Clostridium difficile colitis Hypertension Alcohol use disorder Pancreatic insufficiency Gastroesophageal reflux disease Essential hypertension Mood disorder Cannabis use disorder Hepatitis C Tobacco use disorder Surgical History Surgical History H/O colonoscopy (~01/2023) Social History Social History Household Members: Children Household Members Other:: Adult son Housing: House Do you presently have visiting nurse or other home services: No Alcohol intake: current Alcohol intake frequency: 3 or more drinks per day Alcohol type: hard liquor Comment: Pt refusing alarms, steady gait Patient Tobacco Use Status: Current everyday Tobacco user Tobacco use type: Cigarette Cigarette Packs Per Day: 0.5 Cigarettes Per Day: 10.0 e-Cigarette/Vaping Use: Never Used Second Hand Smoke Exposure: No Substance Use Type: Crack/Cocaine and Marijuana Advance Directives Date on File: 12/10/23 service: No
[2024-11-21] MEDS: PHENobarbitaL sodium 130 MG/ML VIAL IM (21:01)
[2024-11-21] MEDS: traZODone HCL 100 MG TABLET PO (23:29)
[2024-11-22] VITALS (7 sets, daily range): BP systolic 126–167; BP diastolic 66–89; PULSE 70–77; RESP 12–18; TEMP 36–36.2; O2SAT 97–99
[2024-11-22] MEDS: KCl 20 mEq in 5% Dex/0.9% Sod 20 MEQ/1,000 ML IV.SOLN 125 MEQ IVCONT ×3 (03:38→22:02)
--- NOTE | 2024-11-22 04:53 | PC.NURSE ---
Pt seen on bed at the start of the shift, alert and oriented, pt is very anxious, fidgety, asking for food even after reiterated her diet order, crying for food, CIWA=9, prn Clonidine was given but no effect, Dr. Bond was made aware, Phenobarbital 130 mg IM given, pt diet advance to full liquid diet,pt tolerated, no vomiting noted, pt calmed down and was able to sleep after.
[2024-11-22 05:08] LABS: Amphetamine Screen Urine Not Detected (Not Detect); Barbiturates, Urine POSITIVE (Not Detect); Benzodiazepines Screen Urine Not Detected (Not Detect); Buprenorphine Scr Not Detected (Not Detect); Cannabinoid Screen Urine POSITIVE (Not Detect); Cocaine Screen Urine POSITIVE (Not Detect); Fentanyl, urine Not Detected (Not Detect); Methadone Screen, Urine Not Detected (Not Detect); Opiate Screen Urine Not Detected (Not Detect); Oxycodone Screen Urine Not Detected (Not Detect); Phencyclidine Screen Urine Not Detected (Not Detect)
[2024-11-22] MEDS: PHENobarbitaL 30 MG TABLET PO ×2 (05:46→17:44)
[2024-11-22] MEDS: Pantoprazole Sodium 40 MG/10 ML VIAL IVPUSH (05:46)
[2024-11-22] MEDS: vancomycin HCL 125 MG CAPSULE PO ×3 (05:46→17:44)
[2024-11-22] MEDS: Ketorolac Tromethamine 15 MG/ML VIAL IVPUSH (06:43)
[2024-11-22] MEDS: Magnesium Oxide 400 MG TABLET PO ×2 (08:14→17:44)
[2024-11-22] MEDS: buPROPion HCl XL 150 MG TAB.ER.24H PO (08:14)
[2024-11-22] MEDS: Folic Acid 1 MG TABLET PO (08:15)
[2024-11-22] MEDS: Multivitamin TABLET 1 TAB PO (08:15)
[2024-11-22] MEDS: cloNIDine HCL 0.1 MG TABLET PO ×3 (08:15→20:54)
[2024-11-22] MEDS: amLODIPine Besylate 5 MG TABLET PO (08:16)
[2024-11-22] MEDS: Escitalopram Oxalate 20 MG TABLET PO (08:16)
[2024-11-22] MEDS: Enoxaparin Sodium 40 MG/0.4 ML SYRINGE SUBCUT (08:17)
[2024-11-22] MEDS: Thiamine HCL 100 MG in 0.9 % Sodium Chloride 100 ML 202 MG IV (08:21)
[2024-11-22 09:21] LABS: Anion Gap 13 (12-20); Blood Urea Nitrogen < 3 mg/dL (9-16); Calcium 8.1 mg/dL (8.4-10.2); Carbon Dioxide 21 mmol/L (22-29); Chloride 108 mmol/L (96-108); Creatinine Clr Calc Pharmacy 112.7; Estimated Glomerular Filt Rate > 60; Glucose Random 101 mg/dL (60-115); Potassium 4.3 mmol/L (3.3-5.1); Sodium 138 mmol/L (135-145)
[2024-11-22] MEDS: Magnesium Sulfate/H2O 2 GM/50 ML PIGGYBACK IV (09:44)
[2024-11-22 12:36] LABS: Magnesium 1.3 mg/dL (1.6-2.6)
[2024-11-22] MEDS: Morphine Sulfate 2 MG/ML CARTRIDGE IVPUSH ×3 (13:14→21:58)
--- NOTE | 2024-11-22 16:13 | HO.PM.IMPN ---
Subjective Subjective Date of Service: 11/22/24 Interval History: Seen and examined this morning Follow-up for alcohol withdrawal, C diff Diarrhea slowing down, complains of widespread pain especially in the legs (chronic) and doesn't feel good at all despite abdominal pain, requested liquid diet overnight and she is happy about this Received an extra dose of IM phenobarbital overnight Review of Systems Review of Systems: Yes all other systems are reviewed and are negative Constitutional Constitutional: Denies chills and Denies fever(s) Physical Exam Vital Signs: Vital Signs: Last Vital Signs Temp 97.0 F 11/22/24 15:48 Pulse 77 11/22/24 15:48 Resp 18 11/22/24 15:48 BP 138/82 11/22/24 15:48 Pulse Ox 98 11/22/24 15:48 O2 Del Method Room Air 11/22/24 15:48 O2 Flow Rate 3 11/21/24 05:18 BMI result Body Mass Index 18.9 Const: General: alert and awake Nutritional Appearance: average body habitus Orientation/consciousness: patient oriented x3 Resp: Effort & Inspection: normal respiratory effort, able to speak in complete sentences, no respiratory distress and no use of accessory muscles Cardio: Rate: regular rate GI: Inspection: No distended Palpation (GI): Soft to palpation Neuro: General: patient oriented x3, moves all extremities and CN's II-XI intact bilaterally Objective Data Active Medications Amlodipine Besylate (Amlodipine Besylate 5 Mg Tablet) 5 mg PO DAILY [facility]; Protocol Last Admin: 11/22/24 08:16 Dose: 5 mg Documented By: PAULINA Bupropion HCl (Bupropion Hcl Xl 150 Mg Tab.Er.24h) 150 mg PO DAILY [facility] Last Admin: 11/22/24 08:14 Dose: 150 mg Documented By: PAULINA Clonidine HCl (Clonidine Hcl 0.1 Mg Tablet) 0.1 mg PO TID PRN; Protocol PRN Reason: Anxiety Last Admin: 11/22/24 15:56 Dose: 0.1 mg Documented By: PAULINA Enoxaparin Sodium (Enoxaparin Sodium 40 Mg/0.4 Ml Syringe) 40 mg SUBCUT Q24H [facility] Last Admin: 11/22/24 08:17 Dose: 40 mg Documented By: PAULINA Escitalopram Oxalate (Escitalopram Oxalate 20 Mg Tablet) 20 mg PO DAILY [facility] Last Admin: 11/22/24 08:16 Dose: 20 mg Documented By: PAULINA Folic Acid (Folic Acid 1 Mg Tablet) 1 mg PO DAILY [facility] Last Admin: 11/22/24 08:15 Dose: 1 mg Documented By: PAULINA Thiamine HCl 100 mg/ Sodium (Chloride) 101 mls @ 202 mls/hr IV DAILY [facility] Last Infusion: 11/22/24 09:30 Dose: Infused Documented By: PAULINA Potassium Chloride/Dextrose/Sod Cl (Kcl 20 Meq In 5% Dex/0.9% Sod) 20 meq in 1,000 mls @ 125 mls/hr IVCONT .Q8H [facility] Last Admin: 11/22/24 13:17 Dose: 125 mls/hr Documented By: PAULINA Magnesium Oxide (Magnesium Oxide 400 Mg Tablet) [facility] Last Admin: 11/22/24 08:14 Dose: 400 mg Documented By: PAULINA Morphine Sulfate (Morphine Sulfate 2 Mg/Ml Cartridge) 2 mg IVPUSH Q4H PRN; Protocol PRN Reason: Pain, Severe (Pain Scale 7-10) Last Admin: 11/22/24 13:14 Dose: 2 mg Documented By: PAULINA Multivitamins/Vitamin C (Multivitamin Tablet) 1 tab PO DAILY [facility] Last Admin: 11/22/24 08:15 Dose: 1 tab Documented By: PAULINA Ondansetron HCl (Ondansetron Hcl 4 Mg/2 Ml Vial) 4 mg IVPUSH Q8H PRN PRN Reason: Nausea and Vomiting Pantoprazole Sodium (Pantoprazole Sodium 40 Mg/10 Ml Vial) 40 mg IVPUSH DAILY@0630 [facility] Last Admin: 11/22/24 05:46 Dose: 40 mg Documented By: BELINDA Pharmacy Consult (Consult Rx Etoh Phenob Im/Po) 1 each MISCELLANE ONCE PRN; Protocol PRN Reason: Consult order Phenobarbital (Phenobarbital 30 Mg Tablet) 30 mg PO BID@0600,1800 [facility] Stop: 11/23/24 06:01 Last Admin: 11/22/24 05:46 Dose: 30 mg Documented By: BELINDA Phenobarbital (Phenobarbital 15 Mg Tablet) 15 mg PO BID [facility] Stop: 11/25/24 09:01 Phenobarbital (Phenobarbital 15 Mg Tablet) 15 mg PO DAILY [facility] Stop: 11/27/24 09:01 Sodium Chloride (0.9 % Sodium Chloride Flush 3 Ml Syringe) 3 ml IVFLUSH QSHIFT [facility] Last Admin: 11/22/24 15:57 Dose: Not Given Documented By: PAULINA Non-Admin Reason: IV Running Trazodone HCl (Trazodone Hcl 100 Mg Tablet) 100 mg PO BEDTIME PRN PRN Reason: insomnia Last Admin: 11/21/24 23:29 Dose: 100 mg Documented By: BELINDA Vancomycin HCl (Vancomycin Hcl 125 Mg Capsule) 125 mg PO Q6H [facility] Last Admin: 11/22/24 12:17 Dose: 125 mg Documented By: PAULINA Labs 11/21/24 09:57 11/22/24 08:30 Labs: Laboratory Results - last 24 hr 11/22/24 11/22/24 04:49 08:30 Anion Gap 13 Estim Creat Clear Calc 112.7 Estimated GFR > 60 Random Glucose 101 Calcium 8.1 L D Magnesium 1.3 L* Urine Opiates Screen Not Detected Ur Buprenorphine Scrn Not Detected Ur Oxycodone Screen Not Detected Urine Methadone Screen Not Detected Urine Fentanyl Screen Not Detected Ur Barbiturates Screen POSITIVE H Ur Phencyclidine Scrn Not Detected Ur Amphetamines Screen Not Detected U Benzodiazepines Scrn Not Detected Urine Cocaine Screen POSITIVE H U Marijuana (THC) Screen POSITIVE H Assessment and Plan (1) Alcohol withdrawal: Status: Acute (2) Clostridioides difficile diarrhea: Status: Acute Plan This is a 49 y/o woman with PMHx significant alcohol abuse, C diff colitis, pancreatic insufficiency, chronic hep C infection, GERD, cannabis use disorder and multiple hospitalization due to GI symptoms admitted with: Generalized abdominal pain, nausea, vomiting and diarrhea likely due to cdif and possible associated underlying gastritis due to alcohol use cdif pcr and toxin a + continue po vanco GI panel negative Continue IV hydration pain control reviewing chart - patient has been treated for cdif in the past, 06/21 and 10/21 pcr +but toxin negative but treated with po vanco; will consult ID for ?recurrent cdif diarrhea improving Alcohol withdrawal/alcohol abuse. continue phenobarbitol continue CIWA and phenobarbital protocol continue thiamine, folic acid and multivitamins seen by addiction medicine earlier this month Multiple electrolyte imbalances: Hypomagnesemia, hypokalemia secondary to vomiting and diarrhea resolved with replacement continue IV fluids with Continue to monitor electrolytes levels. Essential hypertension. Continue norvasc Mood disorder. Continue home medications. GERD. On PPI. DVT prophylaxis: Lovenox Code status: Full Requires ongoing inpatient hospital stay for IV fluids, empiric antibiotic therapy and further investigation. Quality Stroke Does the patient have a stroke diagnosis?: No VTE Prior VTE?: No VTE Risk Level:: Medical - moderate - high VTE Device Contraindication: Treatment Not Indicated VTE Drug Contraindication: N/A - Med Ordered
[2024-11-22] MEDS: traZODone HCL 100 MG TABLET PO (22:58)
[2024-11-23] MEDS: vancomycin HCL 125 MG CAPSULE PO ×5 (00:21→23:53)
[2024-11-23] MEDS: Morphine Sulfate 2 MG/ML CARTRIDGE IVPUSH ×5 (01:56→21:43)
[2024-11-23 03:15] VITALS: BP 133/66; PULSE 62; RESP 16; TEMP 36.9; O2SAT 97
[2024-11-23] MEDS: Pantoprazole Sodium 40 MG/10 ML VIAL IVPUSH (05:44)
[2024-11-23] MEDS: PHENobarbitaL 30 MG TABLET PO (05:44)
[2024-11-23 08:07] VITALS: BP 126/78; PULSE 73; RESP 12; TEMP 36.8; O2SAT 97
[2024-11-23] MEDS: Magnesium Oxide 400 MG TABLET PO ×2 (08:13→17:38)
[2024-11-23] MEDS: amLODIPine Besylate 5 MG TABLET PO (08:13)
[2024-11-23] MEDS: Escitalopram Oxalate 20 MG TABLET PO (08:13)
[2024-11-23] MEDS: Multivitamin TABLET 1 TAB PO (08:14)
[2024-11-23] MEDS: Folic Acid 1 MG TABLET PO (08:14)
[2024-11-23] MEDS: Enoxaparin Sodium 40 MG/0.4 ML SYRINGE SUBCUT (08:14)
[2024-11-23] MEDS: buPROPion HCl XL 150 MG TAB.ER.24H PO (08:14)
[2024-11-23] MEDS: cloNIDine HCL 0.1 MG TABLET PO ×2 (08:14→20:06)
[2024-11-23] MEDS: Thiamine HCL 100 MG in 0.9 % Sodium Chloride 100 ML 202 MG IV (08:16)
[2024-11-23] MEDS: 0.9 % Sodium Chloride Flush 3 ML SYRINGE IVFLUSH ×2 (08:23→20:06)
[2024-11-23] MEDS: Magnesium Sulfate/H2O 2 GM/50 ML PIGGYBACK IV (11:52)
--- NOTE | 2024-11-23 14:19 | P.PNIM_ITS ---
Subjective Subjective Date of Service: 11/23/24 Interval History: seen and examined this morning follow up for cdif, abdominal pain, etoh withdrawal requesting diet advancement no nausea or vomiting; diarrhea improving Review of Systems Review of Systems: Yes all other systems are reviewed and are negative Constitutional Constitutional: Denies chills and Denies fever(s) Cardiovascular Cardiovascular: Denies chest pain Gastrointestinal Gastrointestinal: Denies abdominal pain Physical Exam 2 Vital Signs: Vital Signs: Last Vital Signs Temp 98.2 F 11/23/24 08:07 Pulse 73 11/23/24 08:07 Resp 12 11/23/24 08:07 BP 126/78 11/23/24 08:07 Pulse Ox 97 11/23/24 08:07 O2 Del Method Room Air 11/23/24 08:07 O2 Flow Rate 3 11/21/24 05:18 BMI result Body Mass Index 18.9 Const: General: alert and awake Nutritional Appearance: average body habitus Orientation/consciousness: patient oriented x3 Resp: Effort & Inspection: normal respiratory effort, able to speak in complete sentences, no respiratory distress and no use of accessory muscles Cardio: Rate: regular rate GI: Inspection: No distended Palpation (GI): Soft to palpation Neuro: General: patient oriented x3, moves all extremities and CN's II-XI intact bilaterally Objective Data Active Medications Amlodipine Besylate (Amlodipine Besylate 5 Mg Tablet) 5 mg PO DAILY [facility]; Protocol Last Admin: 11/23/24 08:13 Dose: 5 mg Documented By: PAULINA Bupropion HCl (Bupropion Hcl Xl 150 Mg Tab.Er.24h) 150 mg PO DAILY [facility] Last Admin: 11/23/24 08:14 Dose: 150 mg Documented By: PAULINA Clonidine HCl (Clonidine Hcl 0.1 Mg Tablet) 0.1 mg PO TID PRN; Protocol PRN Reason: Anxiety Last Admin: 11/23/24 08:14 Dose: 0.1 mg Documented By: PAULINA Enoxaparin Sodium (Enoxaparin Sodium 40 Mg/0.4 Ml Syringe) 40 mg SUBCUT Q24H [facility] Last Admin: 11/23/24 08:14 Dose: 40 mg Documented By: PAULINA Escitalopram Oxalate (Escitalopram Oxalate 20 Mg Tablet) 20 mg PO DAILY [facility] Last Admin: 11/23/24 08:13 Dose: 20 mg Documented By: PAULINA Folic Acid (Folic Acid 1 Mg Tablet) 1 mg PO DAILY [facility] Last Admin: 11/23/24 08:14 Dose: 1 mg Documented By: PAULINA Magnesium Oxide (Magnesium Oxide 400 Mg Tablet) 400 mg PO BIDPC [facility] Last Admin: 11/23/24 08:13 Dose: 400 mg Documented By: PAULINA Morphine Sulfate (Morphine Sulfate 2 Mg/Ml Cartridge) 2 mg IVPUSH Q4H PRN; Protocol PRN Reason: Pain, Severe (Pain Scale 7-10) Last Admin: 11/23/24 10:49 Dose: 2 mg Documented By: PAULINA Multivitamins/Vitamin C (Multivitamin Tablet) 1 tab PO DAILY [facility] Last Admin: 11/23/24 08:14 Dose: 1 tab Documented By: PAULINA Non-Formulary Medication (Pantoprazole) 40 mg PO DAILY@0630 [facility] Ondansetron HCl (Ondansetron Hcl 4 Mg/2 Ml Vial) 4 mg IVPUSH Q8H PRN PRN Reason: Nausea and Vomiting Pharmacy Consult (Consult Rx Etoh Phenob Im/Po) 1 each MISCELLANE ONCE PRN; Protocol PRN Reason: Consult order Phenobarbital (Phenobarbital 15 Mg Tablet) 15 mg PO BID [facility] Stop: 11/25/24 09:01 Phenobarbital (Phenobarbital 15 Mg Tablet) 15 mg PO DAILY [facility] Stop: 11/27/24 09:01 Simethicone (Simethicone 80 Mg Tab.Chew) 80 mg PO QIDWMHS PRN PRN Reason: Gas Sodium Chloride (0.9 % Sodium Chloride Flush 3 Ml Syringe) 3 ml IVFLUSH QSHIFT [facility] Last Admin: 11/23/24 08:23 Dose: 3 ml Documented By: PAULINA Thiamine HCl (Thiamine Hcl 100 Mg Tablet) 100 mg PO DAILY [facility] Trazodone HCl (Trazodone Hcl 100 Mg Tablet) 100 mg PO BEDTIME PRN PRN Reason: insomnia Last Admin: 11/22/24 22:58 Dose: 100 mg Documented By: CASTILJaye Vancomycin HCl (Vancomycin Hcl 125 Mg Capsule) 125 mg PO Q6H [facility] Last Admin: 11/23/24 11:52 Dose: 125 mg Documented By: PAULINA Labs 11/21/24 09:57 01/25/25 08:30 Assessment and Plan (1) Clostridioides difficile diarrhea: Status: Acute (2) Alcohol use disorder, severe, dependence: Status: Acute Plan This is a 49 y/o woman with PMHx significant alcohol abuse, C diff colitis, pancreatic insufficiency, chronic hep C infection, GERD, cannabis use disorder and multiple hospitalization due to GI symptoms admitted with: Generalized abdominal pain, nausea, vomiting and diarrhea likely due to cdif and possible associated underlying gastritis due to alcohol use cdif pcr and toxin a positive- continue po vanco GI panel negative reviewing chart - patient has been treated for cdif in the past, 06/21 and 10/21 pcr +but toxin negative but treated with po vanco; will consult ID for ?recurrent cdif diarrhea improving on current management Alcohol withdrawal/alcohol abuse. continue phenobarbitol continue CIWA and phenobarbital protocol continue thiamine, folic acid and multivitamins seen by addiction medicine earlier this month Multiple electrolyte imbalances: Hypomagnesemia, hypokalemia secondary to vomiting and diarrhea resolved with replacement Essential hypertension. Continue norvasc Mood disorder. Continue home medications. GERD. On PPI. DVT prophylaxis: Lovenox Code status: Full Requires ongoing inpatient hospital stay for specialist evaluation Quality Stroke Does the patient have a stroke diagnosis?: No VTE Prior VTE?: No VTE Risk Level:: Medical - moderate - high VTE Device Contraindication: Treatment Not Indicated VTE Drug Contraindication: N/A - Med Ordered
[2024-11-23 16:16] VITALS: BP 135/76; PULSE 67; RESP 18; TEMP 36.1; O2SAT 97
[2024-11-23 19:56] VITALS: BP 132/64; PULSE 64; RESP 18; TEMP 36.2; O2SAT 98
[2024-11-23] MEDS: PHENobarbitaL 15 MG TABLET PO (20:06)
[2024-11-23] MEDS: Simethicone 80 MG TAB.CHEW PO (20:09)
[2024-11-24] VITALS (7 sets, daily range): BP systolic 123–161; BP diastolic 60–82; PULSE 64–76; RESP 16–20; TEMP 36.1–36.4; O2SAT 94–98
[2024-11-24] MEDS: traZODone HCL 100 MG TABLET PO (00:02)
[2024-11-24] MEDS: Morphine Sulfate 2 MG/ML CARTRIDGE IVPUSH ×5 (02:12→20:34)
[2024-11-24] MEDS: Omeprazole 20 MG CAPSULE.DR PO (06:14)
[2024-11-24] MEDS: vancomycin HCL 125 MG CAPSULE PO ×4 (06:14→23:37)
[2024-11-24] MEDS: Enoxaparin Sodium 40 MG/0.4 ML SYRINGE SUBCUT (08:50)
[2024-11-24] MEDS: Thiamine HCL 100 MG TABLET PO (08:51)
[2024-11-24] MEDS: Folic Acid 1 MG TABLET PO (08:51)
[2024-11-24] MEDS: PHENobarbitaL 15 MG TABLET PO ×2 (08:51→20:33)
[2024-11-24] MEDS: Magnesium Oxide 400 MG TABLET PO ×2 (08:51→16:34)
[2024-11-24] MEDS: buPROPion HCl XL 150 MG TAB.ER.24H PO (08:51)
[2024-11-24] MEDS: amLODIPine Besylate 5 MG TABLET PO (08:51)
[2024-11-24] MEDS: Escitalopram Oxalate 20 MG TABLET PO (08:51)
[2024-11-24] MEDS: 0.9 % Sodium Chloride Flush 3 ML SYRINGE IVFLUSH ×3 (09:00→23:39)
[2024-11-24 09:45] LABS: Anion Gap 15 (12-20); Blood Urea Nitrogen 4 mg/dL (9-16); Calcium 8.9 mg/dL (8.4-10.2); Carbon Dioxide 28 mmol/L (22-29); Chloride 99 mmol/L (96-108); Estimated Glomerular Filt Rate > 60; Glucose Random 123 mg/dL (60-115); Potassium 3.4 mmol/L (3.3-5.1); Sodium 139 mmol/L (135-145)
[2024-11-24] MEDS: cloNIDine HCL 0.1 MG TABLET PO ×2 (09:46→17:47)
[2024-11-24] MEDS: Multivitamin TABLET 1 TAB PO (09:46)
--- NOTE | 2024-11-24 11:06 | PM.DS ---
DS: Providers Provider Date of Service: 11/24/24 Date of admission: 11/21/24 01:33 Date of discharge: 11/24/24 Primary care physician: Ayala Patton MD Consults: 11/21/24 02:17 Addiction Medicine Routine Consulting Provider: Addiction Covering Reason for consultation: Alcohol abuse Has provider been notified: No 11/21/24 15:11 Consult to Infectious Diseases Routine Consulting Provider: [facility] Reason for consultation: recurrent cdif Has provider been notified: No DS: Diagnosis Discharge Diagnosis (1) Clostridioides difficile diarrhea: Status: Acute (2) Alcohol use disorder, severe, dependence: Status: Acute DS: Summary Hospital Course Hospital Course: History and physical as per admitting provider Jackelyn Bledsoe is a 49 years old woman with past medical history significant alcohol abuse, C diff colitis, electrolyte imbalances (hypokalemia, hypomagnesemia), pancreatic insufficiency, chronic hep C infection and GERD cannabis use disorder, essential hypertension, mood disorder and multiple hospitalization due to GI symptoms (nausea, vomiting + abdominal pain) mostly attributed to gastritis secondary to alcohol abuse presents department complaining of generalized abdominal pain, nausea, vomiting and diarrhea. HPI was very difficult to obtain because at the time of evaluation the patient was very sedated (received Ativan 2 mg by ED). Patient stated that she continue to drink alcohol (4 nips daily) and smoke marijuana. In the ED, she was found to have stable vital signs, however blood pressure has been in the high side last blood pressure was 167/105. There is no tachycardia, fever or hypotension. Blood workup showed no leukocytosis. Hemoglobin is 14.4 platelets 172. There is significant hypokalemia, 2.7 and hypomagnesemia of 1.0. Bicarb is 14 BUN 10 and creatinine 0.61. AST and alk-phos slightly elevated with normal bilirubin and ALT. Lipase is also normal. test is 4. ETOH level is less than 10. Urine drug screen is not available. COVID-19, influenza and RSV are negative. Per chart review patient has had multiple abdominal testing (11 tests) over the last year including abdominal ultrasounds abdominal pelvis CT scans and HIDA scans. In summary this study showed findings such as: Hepatic steatosis, colonic diverticulitis, presence of IUD, mild colitis and normal bilateral scan (on last HIDA). ED tx: Magnesium 2 g IV, potassium 10 mEq IV, potassium chloride 40 mEq p.o., Ativan 2 mg IV, Zofran 4 mg IV, phenobarbital 240 mg IM Generalized abdominal pain, nausea, vomiting and diarrhea likely due to cdif and possible associated underlying gastritis due to alcohol use, cdiff pcr and toxin a positive- continue po vanco, complete 10 days therapy, GI panel negative , reviewing chart - patient has been treated for cdiff in the past, 06/21 and 10/21 pcr +but toxin negative but treated with po vanco; will consult ID for ?recurrent cdif , diarrhea improving on current management Alcohol withdrawal/alcohol abuse. treated with phenobarbitol, CIWA, continue thiamine, folic acid and multivitamins. seen by addiction medicine earlier this month Multiple electrolyte imbalances. Hypomagnesemia (acute on chronic), hypokalemia secondary to vomiting and diarrhea. resolved with replacement . continue mag replacement at home Essential hypertension. Continue norvasc Mood disorder. . Continue home medications. GERD. On PPI. Time Attestation Discharge Coordination Time (in mins): 40 Quality: Safe Use of Opioids Does Pt have an Active Cancer Diagnosis on the Problem List?: No Quality: Stroke Does the patient have a stroke diagnosis?: No Physical Exam Vital Signs: Vital Signs: Last Vital Signs Temp 97.3 F 11/24/24 07:44 Pulse 76 11/24/24 09:13 Resp 16 11/24/24 07:44 BP 153/73 H 11/24/24 09:13 Pulse Ox 98 11/24/24 07:44 O2 Del Method Room Air 11/24/24 07:44 O2 Flow Rate 3 11/21/24 05:18 BMI result Body Mass Index 18.9 Appearing in no acute distress head is normocephalic atraumatic eyes pupils are PERRLA sclera is anicteric mouth throat mucous membranes are intact and moist neck is supple no lymphadenopathy, no JVD noted lung sounds are clear to auscultation heart regular rate rhythm, clear S1, S2 positive bowel sounds, abdomen is soft, nontender neuro patient is alert x3, no focal deficits DS: Data Data Completed and Pending Completed studies during hospitalization [Text1]: Procedures Detoxification Services for Substance Abuse Treatment (09/26/24) Labs on day of discharge: Laboratory Results - last 24 hr 11/24/24 08:48 Sodium 139 Potassium 3.4 D Chloride 99 Carbon Dioxide 28 Anion Gap 15 BUN 4 L Creatinine 0.57 Estim Creat Clear Calc 93.0 Estimated GFR > 60 Random Glucose 123 H Calcium 8.9 D Discharge Plan Discharge Anticipated Discharge Date/Time: 11/24/24 08:08 Patient Disposition: Home, Self-Care Discharge Diagnosis: C diff Hypomagnesemia Referrals: Yojana Nation MD [Physician] - None Ayala Patton MD [Primary Care Provider] - 1 Week Discharge Medications: New magnesium oxide 400 mg magnesium tablet 400 mg PO BID Qty: 60 0RF vancomycin 125 mg Capsule 125 mg PO Q6H Qty: 24 0RF Continued naltrexone 50 mg tablet 50 mg PO DAILY Qty: 90 0RF pantoprazole 40 mg tablet,delayed release (DR/EC) 40 mg PO DAILY@0630 folic acid 1 mg tablet 1 mg PO DAILY cholecalciferol (vitamin D3) 50 mcg (2,000 unit) tablet 50 mcg PO DAILY clonidine HCl 0.1 mg tablet 0.1 mg PO TID PRN (Reason: Anxiety) citalopram 40 mg tablet 40 mg PO DAILY amlodipine 5 mg Tablet 5 mg PO DAILY Qty: 90 0RF Protocol: Hold for SBP< HOLD for SBP < : 90 thiamine HCl (vitamin B1) 100 mg tablet 100 mg PO DAILY trazodone 100 mg tablet 100 mg PO BEDTIME PRN (Reason: insomnia) bupropion HCl 150 mg tablet extended release 24 hr 150 mg PO DAILY Discontinued magnesium oxide 400 mg (241.3 mg magnesium) Tablet 400 mg PO BIDPC Qty: 180 0RF Discharge Orders: Discharge Order (Routine); Ordered 11/25/24 Ordered By: Ellen Neumann Diet: Advance to usual diet Activity on Discharge: As tolerated Stand Alone Forms: Patient Portal Discharge page Print Language: Moldovan Other Ambulatory Orders: Basic Metabolic Panel (Routine) Timeframe: 1 Week Facility: [facility] - Location: Laboratory Ordered By: Ellen Neumann Magnesium (Routine) Timeframe: 1 Week Facility: [facility] - Location: Laboratory Ordered By: Ellen Neumann Care Plan Goals: Eat foods high in magnesium stop drinking alcohol Health Concerns: C diff Hypomagnesemia Plan of Treatment: Follow up with primary care provider as needed Take all medications as prescribed Assessment: See discharge summary Discharge Date/Time: 11/25/24 16:40
[2024-11-24] MEDS: Simethicone 80 MG TAB.CHEW PO ×2 (11:08→17:35)
[2024-11-24 11:32] LABS: Magnesium 1.3 mg/dL (1.6-2.6)
[2024-11-24] MEDS: Magnesium Sulfate/H2O 2 GM/50 ML PIGGYBACK IV (12:22)
--- NOTE | 2024-11-24 13:02 | MHC.CM.PN ---
PER MD ROUNDS PATIENT AWAITING ID CONSULT PRIOR TO DC. CM WILL CONTINUE TO FOLLOW.
--- NOTE | 2024-11-24 13:49 | MHC.CLN ---
F/U DIET=REGULAR. PO 50-100%, ADDING ENSURE TID (1050 KCALS, 60 G PROTEIN). 10% SIGNIFICANT WEIGHT LOSS X 6 MONTHS. BMI=18.9, UNDERWEIGHT. FOLLOW FOR PO INTAKE.
--- NOTE | 2024-11-24 16:20 | P.PNIM_ITS ---
Subjective Subjective Date of Service: 11/24/24 Interval History: seen and examined this morning follow up for cdif, abdominal pain, etoh withdrawal requesting diet advancement no nausea or vomiting; diarrhea improving Review of Systems Review of Systems: Yes all other systems are reviewed and are negative Constitutional Constitutional: Denies chills and Denies fever(s) Cardiovascular Cardiovascular: Denies chest pain Gastrointestinal Gastrointestinal: Denies abdominal pain Physical Exam 2 Vital Signs: Vital Signs: Last Vital Signs Temp 96.9 F 11/24/24 15:30 Pulse 67 11/24/24 15:30 Resp 2 L 11/24/24 15:30 BP 123/60 11/24/24 15:30 Pulse Ox 8 L 11/24/24 15:30 O2 Del Method Room Air 11/24/24 15:30 O2 Flow Rate 3 11/21/24 05:18 BMI result Body Mass Index 18.9 Objective Data Active Medications Amlodipine Besylate (Amlodipine Besylate 5 Mg Tablet) 5 mg PO DAILY [facility]; Protocol Last Admin: 11/24/24 08:51 Dose: 5 mg Documented By: GABRIELLE Bupropion HCl (Bupropion Hcl Xl 150 Mg Tab.Er.24h) 150 mg PO DAILY [facility] Last Admin: 11/24/24 08:51 Dose: 150 mg Documented By: GABRIELLE Clonidine HCl (Clonidine Hcl 0.1 Mg Tablet) 0.1 mg PO TID PRN; Protocol PRN Reason: Anxiety Last Admin: 11/24/24 09:46 Dose: 0.1 mg Documented By: GABRIELLE Enoxaparin Sodium (Enoxaparin Sodium 40 Mg/0.4 Ml Syringe) 40 mg SUBCUT Q24H [facility] Last Admin: 11/24/24 08:50 Dose: 40 mg Documented By: GABRIELLE Escitalopram Oxalate (Escitalopram Oxalate 20 Mg Tablet) 20 mg PO DAILY [facility] Last Admin: 11/24/24 08:51 Dose: 20 mg Documented By: GABRIELLE Folic Acid (Folic Acid 1 Mg Tablet) 1 mg PO DAILY [facility] Last Admin: 11/24/24 08:51 Dose: 1 mg Documented By: GABRIELLE Magnesium Oxide (Magnesium Oxide 400 Mg Tablet) 400 mg PO BIDPC [facility] Last Admin: 11/24/24 08:51 Dose: 400 mg Documented By: GABRIELLE Morphine Sulfate (Morphine Sulfate 2 Mg/Ml Cartridge) 2 mg IVPUSH Q4H PRN; Protocol PRN Reason: Pain, Severe (Pain Scale 7-10) Last Admin: 11/24/24 11:08 Dose: 2 mg Documented By: GABRIELLE Multivitamins/Vitamin C (Multivitamin Tablet) 1 tab PO DAILY [facility] Last Admin: 11/24/24 09:46 Dose: 1 tab Documented By: GABRIELLE Omeprazole (Omeprazole 20 Mg Capsule.Dr) 20 mg PO DAILY@0630 [facility] Last Admin: 11/24/24 06:14 Dose: 20 mg Documented By: CORNELIUS Ondansetron HCl (Ondansetron Hcl 4 Mg/2 Ml Vial) 4 mg IVPUSH Q8H PRN PRN Reason: Nausea and Vomiting Pharmacy Consult (Consult Rx Etoh Phenob Im/Po) 1 each MISCELLANE ONCE PRN; Protocol PRN Reason: Consult order Phenobarbital (Phenobarbital 15 Mg Tablet) 15 mg PO BID [facility] Stop: 11/25/24 09:01 Last Admin: 11/24/24 08:51 Dose: 15 mg Documented By: GABRIELLE Phenobarbital (Phenobarbital 15 Mg Tablet) 15 mg PO DAILY [facility] Stop: 11/27/24 09:01 Simethicone (Simethicone 80 Mg Tab.Chew) 80 mg PO QIDWMHS PRN PRN Reason: Gas Last Admin: 11/24/24 11:08 Dose: 80 mg Documented By: GABRIELLE Sodium Chloride (0.9 % Sodium Chloride Flush 3 Ml Syringe) 3 ml IVFLUSH QSHIFT [facility] Last Admin: 11/24/24 09:00 Dose: 3 ml Documented By: GABRIELLE Thiamine HCl (Thiamine Hcl 100 Mg Tablet) 100 mg PO DAILY [facility] Last Admin: 11/24/24 08:51 Dose: 100 mg Documented By: GABRIELLE Trazodone HCl (Trazodone Hcl 100 Mg Tablet) 100 mg PO BEDTIME PRN PRN Reason: insomnia Last Admin: 11/24/24 00:02 Dose: 100 mg Documented By: CORNELIUS Vancomycin HCl (Vancomycin Hcl 125 Mg Capsule) 125 mg PO Q6H [facility] Last Admin: 11/24/24 12:21 Dose: 125 mg Documented By: GABRIELLE Labs 11/21/24 09:57 11/24/24 08:48 Labs: Laboratory Results - last 24 hr 11/24/24 11/24/24 08:48 15:00 Anion Gap 15 Estim Creat Clear Calc 93.0 Estimated GFR > 60 Random Glucose 123 H Calcium 8.9 D Magnesium 1.3 L* 2.0 Assessment and Plan (1) Clostridioides difficile diarrhea: Status: Acute (2) Alcohol use disorder, severe, dependence: Status: Acute Plan This is a 49 y/o woman with PMHx significant alcohol abuse, C diff colitis, pancreatic insufficiency, chronic hep C infection, GERD, cannabis use disorder and multiple hospitalization due to GI symptoms admitted with Generalized abdominal pain, nausea, vomiting and diarrhea likely due to cdif and possible associated underlying gastritis due to alcohol use cdif pcr and toxin a positive- continue po vanco GI panel negative reviewing chart - patient has been treated for cdif in the past, 06/21 and 10/21 pcr +but toxin negative but treated with po vanco; will consult ID for ?recurrent cdif diarrhea improving on current management ID rec GI consult Alcohol withdrawal/alcohol abuse. continue phenobarbitol continue CIWA and phenobarbital protocol continue thiamine, folic acid and multivitamins seen by addiction medicine earlier this month Multiple electrolyte imbalances Hypomagnesemia, hypokalemia secondary to vomiting and diarrhea resolved with replacement Essential hypertension. Continue norvasc Mood disorder. Continue home medications. GERD. On PPI. DVT prophylaxis: Lovenox Code status: Full Requires ongoing inpatient hospital stay for specialist evaluation Quality Stroke Does the patient have a stroke diagnosis?: No VTE Prior VTE?: No VTE Risk Level:: Medical - moderate - high VTE Device Contraindication: Treatment Not Indicated VTE Drug Contraindication: N/A - Med Ordered
[2024-11-25] MEDS: Morphine Sulfate 2 MG/ML CARTRIDGE IVPUSH ×4 (00:28→15:17)
[2024-11-25] MEDS: traZODone HCL 100 MG TABLET PO (01:18)
[2024-11-25] MEDS: cloNIDine HCL 0.1 MG TABLET PO ×2 (01:43→11:13)
[2024-11-25 04:44] VITALS: PULSE 67; TEMP 36.8; O2SAT 97
[2024-11-25] MEDS: vancomycin HCL 125 MG CAPSULE PO ×2 (05:44→11:13)
[2024-11-25] MEDS: Omeprazole 20 MG CAPSULE.DR PO (05:44)
[2024-11-25 06:35] VITALS: BP 160/90
[2024-11-25 08:00] VITALS: BP 140/71; PULSE 72; RESP 16; TEMP 36.7; O2SAT 95
[2024-11-25 09:14] VITALS: BP 140/71
[2024-11-25] MEDS: amLODIPine Besylate 5 MG TABLET PO (09:14)
[2024-11-25] MEDS: Magnesium Oxide 400 MG TABLET PO (09:14)
[2024-11-25] MEDS: Escitalopram Oxalate 20 MG TABLET PO (09:14)
[2024-11-25] MEDS: buPROPion HCl XL 150 MG TAB.ER.24H PO (09:14)
[2024-11-25] MEDS: PHENobarbitaL 15 MG TABLET PO (09:14)
[2024-11-25] MEDS: Multivitamin TABLET 1 TAB PO (09:14)
[2024-11-25] MEDS: Folic Acid 1 MG TABLET PO (09:15)
[2024-11-25] MEDS: Enoxaparin Sodium 40 MG/0.4 ML SYRINGE SUBCUT (09:15)
[2024-11-25] MEDS: Thiamine HCL 100 MG TABLET PO (09:15)
[2024-11-25] MEDS: 0.9 % Sodium Chloride Flush 3 ML SYRINGE IVFLUSH (09:15)
[2024-11-25] MEDS: Simethicone 80 MG TAB.CHEW PO (11:17)
[2024-11-25 12:00] VITALS: BP 123/73; PULSE 60; RESP 17; TEMP 36.7; O2SAT 97
[2024-11-25 12:36] LABS: Magnesium 1.3 mg/dL (1.6-2.6)
[2024-11-25] MEDS: Magnesium Sulfate/H2O 2 GM/50 ML PIGGYBACK IV (14:02)
[2024-11-25 15:41] VITALS: BP 128/61; PULSE 63; RESP 30; TEMP 36.3; O2SAT 97
--- NOTE | 2024-11-25 16:17 | W.PM.IDCN ---
History of Present Illness Data of Consult Service Date: 11/24/24 Requesting physician: Ellen Neumann Primary Care Provider: Ayala Patton MD HPI Reason for consult: possible recurrent Cdiff She presents with weakness and fatigue and diarrhea,worse over last two days. SHe has no fever or chills at this time. She has had Cdiff in past eval and diarrhea is improving. Review of Systems Review of Systems: Yes all other systems are reviewed and are negative PMFSH Past Medical History Medical History Alcohol use disorder, severe, dependence Clostridium difficile colitis Hypertension Alcohol use disorder Pancreatic insufficiency Gastroesophageal reflux disease Essential hypertension Mood disorder Cannabis use disorder Hepatitis C Tobacco use disorder Surgical History Surgical History H/O colonoscopy (~01/2023) Social History Social History Household Members: Children Household Members Other:: Adult son Housing: House Do you presently have visiting nurse or other home services: No Alcohol intake: current Alcohol intake frequency: 3 or more drinks per day Alcohol type: hard liquor Comment: Pt refusing alarms, steady gait Patient Tobacco Use Status: Current everyday Tobacco user Tobacco use type: Cigarette Cigarette Packs Per Day: 0.5 Cigarettes Per Day: 10.0 e-Cigarette/Vaping Use: Never Used Second Hand Smoke Exposure: No Substance Use Type: Crack/Cocaine and Marijuana Advance Directives Date on File: 12/10/23 service: No Meds Allergies Allergy/AdvReac Type Severity Reaction Status Date / Time No Known Allergies Allergy Verified 11/20/24 22:07 Active Medications: Current Medications Amlodipine Besylate (Amlodipine Besylate 5 Mg Tablet) 5 mg PO DAILY [facility]; Protocol Last Admin: 11/25/24 09:14 Dose: 5 mg Bupropion HCl (Bupropion Hcl Xl 150 Mg Tab.Er.24h) 150 mg PO DAILY [facility] Last Admin: 11/25/24 09:14 Dose: 150 mg Clonidine HCl (Clonidine Hcl 0.1 Mg Tablet) 0.1 mg PO TID PRN; Protocol PRN Reason: Anxiety Last Admin: 11/25/24 11:13 Dose: 0.1 mg Enoxaparin Sodium (Enoxaparin Sodium 40 Mg/0.4 Ml Syringe) 40 mg SUBCUT Q24H [facility] Last Admin: 11/25/24 09:15 Dose: 40 mg Escitalopram Oxalate (Escitalopram Oxalate 20 Mg Tablet) 20 mg PO DAILY [facility] Last Admin: 11/25/24 09:14 Dose: 20 mg Folic Acid (Folic Acid 1 Mg Tablet) 1 mg PO DAILY [facility] Last Admin: 11/25/24 09:15 Dose: 1 mg Magnesium Oxide (Magnesium Oxide 400 Mg Tablet) 800 mg PO BIDPC [facility] Morphine Sulfate (Morphine Sulfate 2 Mg/Ml Cartridge) 2 mg IVPUSH Q6H PRN; Protocol PRN Reason: Pain, Severe (Pain Scale 7-10) Last Admin: 11/25/24 15:17 Dose: 2 mg Multivitamins/Vitamin C (Multivitamin Tablet) 1 tab PO DAILY [facility] Last Admin: 11/25/24 09:14 Dose: 1 tab Omeprazole (Omeprazole 20 Mg Capsule.Dr) 20 mg PO DAILY@0630 [facility] Last Admin: 11/25/24 05:44 Dose: 20 mg Ondansetron HCl (Ondansetron Hcl 4 Mg/2 Ml Vial) 4 mg IVPUSH Q8H PRN PRN Reason: Nausea and Vomiting Pharmacy Consult (Consult Rx Etoh Phenob Im/Po) 1 each MISCELLANE ONCE PRN; Protocol PRN Reason: Consult order Phenobarbital (Phenobarbital 15 Mg Tablet) 15 mg PO DAILY [facility] Stop: 11/27/24 09:01 Simethicone (Simethicone 80 Mg Tab.Chew) 80 mg PO QIDWMHS PRN PRN Reason: Gas Last Admin: 11/25/24 11:17 Dose: 80 mg Sodium Chloride (0.9 % Sodium Chloride Flush 3 Ml Syringe) 3 ml IVFLUSH QSHIFT [facility] Last Admin: 11/25/24 15:00 Dose: Not Given Thiamine HCl (Thiamine Hcl 100 Mg Tablet) 100 mg PO DAILY [facility] Last Admin: 11/25/24 09:15 Dose: 100 mg Trazodone HCl (Trazodone Hcl 100 Mg Tablet) 100 mg PO BEDTIME PRN PRN Reason: insomnia Last Admin: 11/25/24 01:18 Dose: 100 mg Vancomycin HCl (Vancomycin Hcl 125 Mg Capsule) 125 mg PO Q6H [facility] Last Admin: 11/25/24 11:13 Dose: 125 mg Home Medications ?Medication ?Instructions ?Recorded ?Confirmed ?Last Taken ?Type cholecalciferol (vitamin D3) 50 50 mcg PO DAILY 11/01/23 11/21/24 10/26/24 History mcg (2,000 unit) tablet folic acid 1 mg tablet 1 mg PO DAILY 11/01/23 11/21/24 10/26/24 History pantoprazole 40 mg tablet,delayed 40 mg PO DAILY@0630 11/01/23 11/21/24 10/26/24 History release clonidine HCl 0.1 mg tablet 0.1 mg PO TID PRN Anxiety 12/10/23 11/21/24 06/23/24 History citalopram 40 mg tablet 40 mg PO DAILY 02/26/24 11/21/24 10/26/24 History thiamine HCl (vitamin B1) 100 mg 100 mg PO DAILY 09/26/24 11/21/24 10/26/24 History tablet trazodone 100 mg tablet 100 mg PO BEDTIME PRN insomnia 10/27/24 11/21/24 Unknown History bupropion HCl 150 mg 24 hr tablet, 150 mg PO DAILY 11/21/24 11/21/24 Unknown History extended release Physical Exam Vital Signs: Vital Signs: Last Vital Signs Temp 97.4 F 11/25/24 15:41 Pulse 63 11/25/24 15:41 Resp 30 H 11/25/24 15:41 BP 128/61 11/25/24 15:41 Pulse Ox 97 11/25/24 15:41 O2 Del Method Room Air 11/25/24 15:41 O2 Flow Rate 3 11/21/24 05:18 BMI result Body Mass Index 18.9 Const: General: cooperative HEENT: Head: Yes normal to inspection Face and sinus: Yes normal facial exam Mouth: Normal oral and palatal mucosa present Teeth and gingiva: dentition normal Eyes: General: appearance normal, both eyes and all related structures Pupils: Equal, round and reactive pupils present Resp: Effort & Inspection: normal respiratory effort Cardio: Rate: regular rate Rhythm: regular rhythm GI: Palpation (GI): Soft to palpation and nontender : General: Yes no CVA tenderness Back/Spine/Pelvis: Back: no CVA tenderness Skin: General skin exam: no rashes or lesions noted Neuro: General: moves all extremities Cranial nerves: Yes Equal, round and reactive pupils present Extrem: General: Yes normal to inspection Psych: Appearance: grossly normal Results Labs 11/21/24 09:57 11/24/24 08:48 Assessment and Plan (1) Clostridioides difficile diarrhea: Status: Acute (2) Alcohol use disorder, severe, dependence: Status: Acute Plan Cdiff and alcohol use contributing to concerns of diarrhea Would give taper Vancomycin with full dose for ten days and then tid for a week,bid for a week and daily for a week and then every other day for a week and then every M.,Sunday. Try to eliminate alcohol and dairy as much as possible.
== END 2024-11-25 16:40 | disposition home or self-care (01) | DRG 241 ==
LOC: HO.ED 11-21 00:34 → HO.EDOVER 11-21 01:49 → HO.S3 11-21 07:27
PROVIDERS: Physician Assistant; Physician Assistant Medical; Admitting Provider Internal Medicine; Emergency Provider Emergency Medicine Emergency Medical Services; PCP Internal Medicine; Visit Provider Nurse Practitioner Acute Care
DX: K29.20 Alcoholic gastritis without bleeding (principal); A04.71 Enterocolitis due to Clostridium difficile, recurrent; E87.6 Hypokalemia; B18.2 Chronic viral hepatitis C; E83.42 Hypomagnesemia; F10.239 Alcohol dependence with withdrawal, unspecified; F17.210 Nicotine dependence, cigarettes, uncomplicated; Z71.6 Tobacco abuse counseling; K21.9 Gastro-esophageal reflux disease without esophagitis; I10 Essential (primary) hypertension; F39 Unspecified mood [affective] disorder; Z79.899 Other long term (current) drug therapy
CPT/HCPCS: 0241U; 36415; 74176; 80048; 80053; 80307; 83690; 83735; 84702; 85025; 87324; 87493; 87507; 93005; 99285; J0131; J1650; J1885; J2060; J2270; J2405; J2470; J2560; J3411; J3475; J3480

== ENCOUNTER → 2024-11-20 22:57 | Outpatient (BNV) | payer OTHER, SELFPAY | PROVIDERS: Admitting Provider Internal Medicine; Emergency Provider Emergency Medicine Emergency Medical Services; PCP Internal Medicine; Visit Provider Internal Medicine Cardiovascular Disease | DX: R94.31 Abnormal electrocardiogram [ECG] [EKG] (principal) | CPT/HCPCS: 93010 ==

== ENCOUNTER 2024-11-21 01:33 | Outpatient (BNV) | payer OTHER, SELFPAY | END 2024-11-25 10:54 | PROVIDERS: Admitting Provider Internal Medicine; Emergency Provider Emergency Medicine Emergency Medical Services; PCP Internal Medicine; Visit Provider Radiology Diagnostic Radiology | DX: K52.9 Noninfective gastroenteritis and colitis, unspecified (principal) | CPT/HCPCS: 74176 ==

== ENCOUNTER → 2024-11-21 01:33 | Outpatient (BNV) | payer OTHER, SELFPAY | PROVIDERS: Admitting Provider Internal Medicine; Emergency Provider Emergency Medicine Emergency Medical Services; PCP Internal Medicine; Visit Provider Internal Medicine | DX: A04.72 Enterocolitis due to Clostridium difficile, not specified as recurrent (principal); F10.20 Alcohol dependence, uncomplicated | CPT/HCPCS: 99232; 99239 ==

== ENCOUNTER → 2024-11-21 01:33 | Outpatient (BNV) | payer OTHER, SELFPAY | PROVIDERS: Admitting Provider Internal Medicine; Emergency Provider Emergency Medicine Emergency Medical Services; PCP Internal Medicine; Visit Provider Nurse Practitioner Psychiatric/Mental Health | DX: F10.20 Alcohol dependence, uncomplicated (principal) | CPT/HCPCS: 99221 ==

== ENCOUNTER → 2024-11-21 01:33 | Outpatient (BNV) | payer OTHER, SELFPAY | PROVIDERS: Admitting Provider Internal Medicine; Emergency Provider Emergency Medicine Emergency Medical Services; PCP Internal Medicine; Visit Provider Internal Medicine | DX: A04.72 Enterocolitis due to Clostridium difficile, not specified as recurrent (principal); F10.20 Alcohol dependence, uncomplicated | CPT/HCPCS: 99222 ==

== ENCOUNTER 2024-12-03 13:29 | Outpatient (REF) | payer OTHER, SELFPAY ==
[2024-12-03 14:32] LABS: Anion Gap 13 (12-20); Blood Urea Nitrogen 4 mg/dL (9-16); Calcium 9.1 mg/dL (8.4-10.2); Carbon Dioxide 27 mmol/L (22-29); Chloride 103 mmol/L (96-108); Estimated Glomerular Filt Rate > 60; Glucose Random 95 mg/dL (60-115); Magnesium 1.6 mg/dL (1.6-2.6); Phosphorus 1.7 mg/dL (2.7-4.5); Potassium 3.2 mmol/L (3.3-5.1); Sodium 140 mmol/L (135-145)
--- OUTSIDE RECORDS SUMMARY | 2024-12-03 14:52 | XMS_ITS | Encounter Summary ---
Author Organization [facility] Address [address] [place] [address] Care Team Providers Care Sand Caster Name Role Phone Ayala Patton MD Primary Care Provider [phone] Reason for Visit * Reason Onset Date Comments Hospital Follow-up 11/28/2024 Encounter Details Date Type Department Care Team (Late st Contact Info) Description 11/28/2024 Telephone Adult Medicine [facility] [address] [place] [address] Ayala Patton MD [address] [place] [address] Hospital Follow-up Social History Tobacco Use Types Packs/Day Years [...] loved ones. For example, child day care teacher or elderly care for an older adult? [...] as of this encounter Progress Notes * Johnny Moreno RN - 11/28/2024 1:48 PM EST Called pt hosp fu for 12/04 with pcp * Audra Richadrson - 11/28/2024 1:22 PM EST Hospital/ER follow up appointment needed Hospital patient was treated at: [facility] Was this only an ER visit or was the patient admitted to the hospital? Admitted to the hospital/kept overnight Date of visit if ER visit only: n/a If patient was admitted what was the date of discharge? 11/26/24 Reason/diagnosis for visit or stay: vomiting and weakness When was the patient told to follow up? 2 wks Was visit or stay related to an injury? If yes, what was the date of injury (DOI)? No If yes, was the injury due to: Not 3rd green party related documented in this encounter Plan of Treatment Upcoming Encounters Date Type Department Care Team (Late st Contact Info) Description 12/04/2024 1:30 PM EST Office Visit Adult Medicine [address] [phone] Ayala Patton MD [address] [place] [address] 04/13/2025 11:30 AM EDT Office Visit Adult Medicine [address] [phone] Laura Nj PA [address] [place] [address] documented as of this encounter Visit Diagnoses Not on filedocumented in this encounter Additional Health Concerns Assessment Noted Time PHQ-9 Depression Total Score: 0 09/02/20 24 9:48 AM EST documented as of this encounter Care Teams Sand Caster Relationship Specialty Start Date End Date Ayala Patton MD [address] [place] [address] PCP - General Internal Medicine 10/24/21 documented as of this encounter
--- OUTSIDE RECORDS SUMMARY | 2024-12-03 14:52 | XMS_ITS | Encounter Summary ---
Author Organization [facility] Address [address] [place] [address] Phone Care Team Providers Care Weblogic Developer Name Role Phone Ayala Patton MD Primary Care Provider [phone] Encounter Details Date Type Department Care Team (Late st Contact Info) Description 03/07/2022 Documentation Only [facility] [address] [place] [id number] Naun Long MD [address] [place] [address], [facility] [address] [place] [address] Social History Tobacco Use Types Packs/Day Years Used Date Smoking Tobacco: Never Assessed Comments Unknown Sex and Gender Information Value Date Recorded Sex Assigned at Not on file Legal Sex Female 9:25 AM EDT Gender Identity Not on file Sexual Orientation Not on file COVID-19 Exposure Response Date Recorded In the last month, have you been in contact with someone who was confirmed or suspected to have Coronavirus / COVID-19? No / Unsure 03/07/2022 1:45 PM EDT documented as of this encounter Plan of Treatment Not on file documented as of this encounter Visit Diagnoses Not on filedocumented in this encounter Care Teams Weblogic Developer Relationship Specialty Start Date End Date Ayala Patton MD PCP - General Internal Medicine 04/11/22 documented as of this encounter
--- OUTSIDE RECORDS SUMMARY | 2024-12-03 14:53 | XMS_ITS | Clinical Summary ---
Author Organization [facility] Address [address] [place] [address] Care Team Providers Care Community Health Program Coordinator Name Role Phone Ayala Patton Primary Care Provider [phone] Allergies No known active allergies Medications No [...] series) 2049 Insurance [employer] Care Teams Community Health Program Coordinator Relationship Specialty Start Date End Date Ayala Patton PCP - General Internal Medicine 09/01/23
--- OUTSIDE RECORDS SUMMARY | 2024-12-03 14:53 | XMS_ITS | Referral Summary ---
Author Organization [facility] Address [address] [place] [address] Care Team Providers Care Leadership Recruiter Name Role Phone Ayala Patton Primary Care Provider [phone] Allergies No known active allergies Medications No [...] on file Insurance [employer] Care Teams Leadership Recruiter Relationship Specialty Start Date End Date Ayala Patton PCP - General Internal Medicine 09/01/23
--- OUTSIDE RECORDS SUMMARY | 2024-12-03 14:53 | XMS_ITS | Clinical Summary ---
Author Organization [facility] Address [address] [facility] [place] [address] [place] [address] Phone Care Team Providers Care Lcac Radar Operator/Navigator Name Role Phone Ayala Patton MD Primary Care Provider [phone] Medications traZODone (DESYREL) 100 MG tablet Take [...] Influenza Vaccine (#1) 2024 Insurance Care Teams Lcac Radar Operator/Navigator Relationship Specialty Start Date End Date Ayala Patton MD PCP - General Internal Medicine 04/11/22
--- OUTSIDE RECORDS SUMMARY | 2024-12-03 14:53 | XMS_ITS | Encounter Summary ---
Author Organization [facility] Address [address] [place] [address] Care Team Providers Care Sheetmetal Patternmaker Name Role Phone Darrius Cross MD Primary Care Provider [phone] Ayala Patton MD Primary Care Provider [phone] Encounter Details Date Type Department Care Team Description 03/27/2023 Telephone Internal Medicine - [place] [address] [facility], [address] [place] [phone] Darrius Cross MD [address] [place] [phone] Social History Tobacco Use Types Packs/Day [...] suspected to have Coronavirus/COVID-19? No / Unsure 03/28/2023 3:48 PM EDT documented as of this encounter Plan of Treatment Not on file documented as of this encounter Visit Diagnoses Not on filedocumented in this encounter Care Teams Sheetmetal Patternmaker Relationship Specialty Start Date End Date Darrius Cross MD [address] [phone] PCP - General Internal Medicine 03/21/23 07/03/23 Ayala Patton MD [address] [place] [id number] PCP - General Internal Medicine 07/04/23 documented as of this encounter
--- OUTSIDE RECORDS SUMMARY | 2024-12-03 14:53 | XMS_ITS | Encounter Summary ---
Author Organization [facility] Address [address] [place] [address] Care Team Providers Care Incident Response Consultant Name Role Phone Ayala Patton MD Primary Care Provider Encounter Details Date Type Department Care Team Description 07/20/2023 Orders Only Medical Records [address] [place] [id number] Abstract, Provider Social History Tobacco Use Types [...] on filedocumented in this encounter Care Teams Incident Response Consultant Relationship Specialty Start Date End Date Ayala Patton MD [address] [place] [phone] PCP - General Internal Medicine 07/04/23 documented as of this encounter
--- OUTSIDE RECORDS SUMMARY | 2024-12-03 14:53 | XMS_ITS | Data Portability ---
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 12/27/2012 Are There Any Guns Present In Your Home? No Information not available 02/09/2015 Live Alone Or With Others? With Others Father, Son Information not available 08/04/2011 Does The Patient Have Difficulty Speaking Peruvian? No Information not available 08/30/2014 Does The Patient Have Difficulty Reading Peruvian? No Information not available 08/30/2014 Patient Has Health Care Proxy Signed And In Chart No Form Given To Pt 12/27/12, 02/09/15, 02/14/16 [email or web address] Information not available 12/27/2012 Marital Status Single Engaged Informatio n not available 08/30/2014 Mosquito Repellent Used Routinely Yes Information not available 02/09/2015 How Many Children Do You Have? 1 18 Yo Son-corporate director Information not available 08/04/2011 What Is Your [...] Medical History Condition Response Hepatitis C Y Hypertension Y Anxiety Y GASTROINTESTINAL Y Depression Y Gynecological HistoryNo gynecological history recorded. Obstetrics History GPAL:G 0 P 0 0 0 0 Immunizations Vaccine Type Date Status Note Provider Nam e and Address Organization Details Recorded Time Hep B, unspecified formulation 4 completed Not Available [facility] 09/13/2011 05:21:07 pneumococcal polysaccharide PPV23 1 completed Not Available [facility] 11/15/2019 02:25:02 Tdap 8 completed Not Available [facility] 09/13/2011 05:22:52 Past Encounters Encounter ID Performer Location Encounter Start Date Encounter Closed Date Diagnosis/Indication Diagnosis SNOMED-CT Code Diagnosis ICD10 Code Diagnosis Note [id number] [place] [address] [place] [address] 11/16/2000 10:00:00 11/18/2008 02:02:29 [id number] JUDI [facility] [address] [place] [address] 01/10/2001 14:00:00 11/18/2008 02:02:29 [id number] JUDI [facility] [address] [place] [address] 05/10/2001 10:00:00 11/18/2008 02:02:29 [id number] JUDI [facility] [place] [address] [place] [address] 05/28/2001 16:00:00 11/18/2008 02:02:29 [id number] JUDI [facility] [place] [address] [place] [address] 07/10/2001 17:45:00 11/18/2008 02:02:29 [id number] JUDI [facility] [address] [place] [address] 01/17/2002 12:15:00 11/18/2008 02:02:29 [id number] JUDI [facility] [place] [address] [place] [address] 04/17/2002 10:20:07 11/18/2008 02:02:29 [id number] JUDI [facility] [place] [address] [place] [address] 12/18/2002 14:54:56 11/18/2008 02:02:29 [id number] LAB [place] [facility] [address] [place] [id number] 12/18/2002 00:00:00 11/18/2008 02:02:29 [id number] JUDI [facility] [place] [address] [place] [address] 08/17/2003 14:05:05 08/19/2003 16:27:37 [id number] [place] [facility] [address] [place] [id number] 08/17/2003 00:00:00 11/18/2008 02:02:29 [id number] JUDI [facility] [place] [address] [place] [address] 1 11/11/2003 15:26:51 11/12/2003 09:09:15 [id number] FP [facility] [place] [address] [place] [id number] 1 11/26/2003 12:59:26 11/27/2003 09:31:46 [id number] FP [facility] [place] [address] [place] [id number] 1 12/09/2003 14:15:08 12/10/2003 09:13:45 [id number] FP [facility] [place] [address] [place], [place] [address] 1 01/08/2004 14:12:01 01/11/2004 09:36:31 [id number] [facility] , [facility] [address] [place] [id number] 12/23/2004 12:44:21 12/26/2004 08:03:16 [id number] FP [facility] [place] [address] [place] [address] MAR[place]JeanSUMAYA [address] 1 12/23/2004 11:49:50 12/23/2004 17:48:11 [id number] Radiology , [facility] [address] [place] [address] 01/23/2005 16:09:16 01/23/2005 16:13:38 [id number] FP [facility] [place] [address] [place] [id number] 1 01/23/2005 15:20:56 01/24/2005 08:55:33 [id number] FP [facility] [place] [address] [place] [address] DR KA[place]AMANDAJeanSUMAYA [id number] 1 02/10/2005 15:21:10 02/13/2005 08:51:43 [id number] FP, [facility] [place] [address] [place] [address] MAR[place]JeanSUMAYA [address] 1 07/14/2005 14:30:31 07/17/2005 10:48:35 [id number] FP [facility] [place] [address] [place] [id number] 1 09/05/2005 16:37:12 09/15/2005 13:46:23 [id number] FP [facility] [place] [address] [place] [address] DR KAURAMANDA[address] [place] [id number] 1 02/12/2006 10:22:06 02/13/2006 09:06:45 [id number] FP [facility] [place] [address] [place] [address] [address] [place] [id number] 1 02/26/2006 16:07:53 02/27/2006 08:49:54 [id number] JUDI [facility] [place] [address] [place] [address] 1 02/28/2006 13:51:39 03/02/2006 08:24:12 [id number] FP [facility] [place] [address] [place] [address] 1 03/16/2006 14:09:59 03/19/2006 08:27:36 [id number] FP [facility] [place] [address] [place] [address] 08/10/2006 13:51:26 08/13/2006 08:47:12 [id number] FP [facility] [place] [address] [place]ONE[place] [id number] 1 08/22/2006 14:40:10 08/23/2006 08:16:41 [id number] FP [facility] [place] [address] [place] [id number] 1 09/26/2006 13:41:51 09/27/2006 08:25:14 [id number] FP [facility] [place] [address] [place] [address] 02/22/2007 15:09:10 02/25/2007 07:56:58 [id number] FP [facility] [place] [address] [place] [id number] 1 04/02/2007 13:05:30 04/04/2007 07:38:40 [id number] FP [facility] [place] [address] [place] [id number] 1 06/11/2007 13:52:41 06/11/2007 17:08:59 [id number] [facility] [address] [address] 1 06/11/2007 14:23:28 06/11/2007 14:52:40 [id number] FP [facility] [place] [address] KAURAMANDAJean [place] [id number] 1 09/02/2007 14:05:55 09/04/2007 15:36:31 [id number] FP [facility] [place] [address] [place] [id number] 1 11/08/2007 09:23:38 11/18/2008 02:02:29 [id number] FP [facility] [place] [address] K[place]AMANDAJean [place] [id number] 1 06/26/2008 10:08:15 11/18/2008 02:02:29 [id number] FP, [facility] [place] [address] [place] [address] [place] [id number] 1 12/22/2008 16:09:59 12/24/2008 11:24:18 [id number] Iliana Mccracken FP, [facility] [place] [address] [place] [address] [place] [id number] 1 07/02/2009 15:39:57 07/06/2009 14:56:08 [id number] Iliana Mccracken FP, [facility] [place] [address] [place] [address] [place] [id number] 07/14/2010 10:47:54 07/14/2010 12:01:21 [id number] , [facility] [place] [address] [place] [address] [place] [id number] 1 10/27/2010 15:08:19 10/27/2010 16:50:23 [id number] FP, [facility] [place] [address] [place] [address] [place] [id number] 1 01/20/2011 14:33:02 01/20/2011 16:06:09 [id number] FP, [facility] [place] [address] [place] [address] DR [place], [place] [address] 1 02/10/2011 13:43:48 02/10/2011 15:41:27 [id number] , [facility] [address] [place], [place] [address] 03/24/2011 15:41:59 03/24/2011 16:51:40 [id number] [facility] , [facility] [address] [address] 04/13/2011 12:33:47 04/14/2011 11:16:32 [id number] FP, [facility] [place] [address] [place] [address] [place] [id number] 1 04/26/2011 15:06:38 04/26/2011 17:02:47 [id number] , [facility] [place] [address] [place] [address] [place] [address] 1 08/04/2011 13:43:47 08/04/2011 14:26:29 [id number] Clara Jeff NP FP, [facility] [place] [address] [place] [address] [place] [address] 1 11/08/2012 13:26:37 11/08/2012 13:49:54 [id number] Carla Sadler LPN [facility], [address] [place] [address] 12/27/2012 13:08:11 12/27/2012 14:02:22 [id number] Adriana Whitten LPN [facility], OFFICE [address] [place] [address] 04/11/2013 13:30:43 04/11/2013 14:01:36 [id number] Adriana Whitten LPN [facility], OFFICE [address] [place] [address] 1 05/13/2013 11:50:23 05/13/2013 12:31:13 [id number] Hien Cole MA [facility], OFFICE [address] [place] [address] 1 06/10/2013 14:09:11 06/11/2013 07:29:21 Epigastric pain 10545064 Likely muti-facto rial gastritis- smoker, not eating [...] viral load. Urinary tr act infectious disease 38328657 Continue to hydrate. Flank pain after pyelonephr itis can last several weeks. Spasm of back muscles 635110780 MOist heat followed by stretchign and massage encouraged . Trial of muscle relaxer--c aution may cuase drowsiness . [id number] [facility], OFFICE [address] [place] [address] 07/15/2013 14:40:44 07/15/2013 15:24:14 Benign essential hypertension 4100843 Blood pressure at goal C/W lisinopril DIscussed importance of smoking cessation Tobacco user 255418273 D iscussed importance of smoking cessation. Pt not ready to quit. Spasm of back muscles 400276333 Backache 059432419 Persi stent upper back/cervi augustine pain. Little improvemen t with PT, exercises. Will get XRAY. RF on flexeril. May need to consider [facility]SS consult. F/U prn. Panic attack 123510813 S table. RF [id number] Casandra Callejas MA , [facility] [place] [address] [place] [address] 02/06/2014 15:18:04 02/06/2014 15:54:32 Benign essential hypertension 1380690 Blood pressure at goal C/W lisinopril Adult heal th examination 534410347 see Risk Assessment and Lifestyle Change Counseling section above Pap today Immunizati ons UTD> Counseling 235222604 Tobacco user 841304310 D iscussed importance of smoking cessation. Pt not ready to quit. Screening for malignant neoplasm of cervix 373403639 Spasm of back muscles 801471565 Persistent . Will increase nortriptyl ine to 25 mg qpm Will call [facility] for f/u appt Generalize d anxiety disorder 17436825 Persistent anxiety C/W citalopram 40 mg RF on lorazepam 0.5 mg tid prn Dysmenorrhea 829480018 3 months heavy, painful periods WIll get pelvic U/S r/o fibroids Cannot do estrogen d/t smoking Will schedule appt with [facility] to discuss Mirena. [id number] Brenda Asencio , [facility] [place] [address] [place] [address] 03/10/2014 14:28:19 03/10/2014 14:54:39 Spasm of back muscles 258533318 Symptomato logy indicative of muscle spasm, pt already on muscle relaxant and pain medication s, on previous visit PCP recommende d she called [facility] for evaluation . Today she tells me she will do this. Right uppe r quadrant pain 948594141 Pt with c/o new onset of RUQ pain, intensity 5/10 no real radiation or any other symptoms etiology? will need to r/o cholelithi asis, [ancreatit is. Pt agreable with plan. [id number] Clara Jeff NP , [facility] [place] [address] [place] [address] 08/28/2014 14:43:38 08/28/2014 15:17:12 Benign essential hypertension 0758025 Blood pressure at goal RF today Generalize d anxiety disorder 33038569 Persistent anxiety C/W citalopram 40 mg RF on lorazepam 0.5 mg tid prn Gastroesop hageal reflux disease 177395508 restart Major depr essive disorder 494925285 stable on citalopram [id number] MD JUDI Hopson, [facility] [place] [address] [place] [address] 11/02/2014 09:09:16 11/02/2014 10:03:23 Muscle pain 51662569 I believe her pains are all muscular see order separately placed this day reassurred Benign ess ential hypertension 4218050 Blood pressure near goal cont current regimen Generalize d anxiety disorder 13759950 Persistent anxiety C/W citalopram 40 mg RF on lorazepam 0.5 mg tid prn Gastroesop hageal reflux disease 809849002 asymptomat ic on PPI Major depr essive disorder 661455453 tearful in office fears etoh related liver dz but unable to quit stable on citalopram Alcohol dependence 10611063 ongoing moderation encouraged [id number] Keyonna Damon , [facility] [place] [address] [place] [address] 01/14/2015 10:35:17 01/20/2015 15:11:06 Generalized anxiety disorder 20371275 Low back pain 660248810 has done PT in the past but [...] PT strategies routinely to manage her pain [id number] Casandra Callejas MA , [facility] [place] [address] [place] [address] 02/09/2015 13:37:24 02/09/2015 14:39:09 Adult health examination 883617845 see Risk Assessment and Lifestyle Change Counseling section above HM: [facility] 02/09 with 3 yr repeat. Immunizati ons UTD> Counseling 020417306 Benign ess ential hypertension 2022182 Blood pressure at goal C/w lisinopril Tobacco user 996539128 D iscussed importance of smoking cessation. Pt not ready to quit. Viral hepatitis C 81840911 Stable Completed treatment Alcohol dependence 70858179 denies any problem does not want to decrease intake Major depr essive disorder 693456832 Sxs worse past several weeks Will start wellbutrin 150 mg bid- start with qd dosing; reviewed potential side effects will c/w celexa 40 mg RTO 4 weeks for f/u Insomnia 386302558 [id number] Casandra Callejas MA , [facility] [place] [address] [place] [address] 03/09/2015 07:49:06 03/09/2015 08:23:54 Tobacco user 870659306 Discussed importance of smoking cessation. Pt not ready to quit. Major depr essive disorder 529642682 First week difficult with menses but past 3 weeks little change Will c/w wellbutrin BID; if menses is again bad will d/c. If little change after 4 weeks will consider change in SSRI. will c/w celexa 40 mg RTO 4 weeks for f/u [id number] Clara Jeff NP [facility], OFF[address] [place] [address] 05/20/2015 11:12:26 05/20/2015 11:43:38 Tobacco user 540195755 Discussed importance of smoking cessation. Pt not ready to quit. Major depr essive disorder 715363291 doing well on wellbutrin but does have some increase in sleep problems will c/w med RF on lorazepam Generalize d anxiety disorder 43425977 Persistent anxiety C/W citalopram 40 mg, lorazepam RF on lorazepam 0.5 mg tid prn Low back pain 756621290 will d/c flexeril start soma 350 mg bid prn; reviewed possible side effects Insomnia 778588001 woren ing sleep past 3 weeks will incease trazodone to 150-200 mg qhs Dysuria 48348117 increas e odor, concentrat ion check UA, cx Night sweats 65406355 ch joon labs below [id number] [facility], OFFICE [address] [place] [address] 06/09/2015 10:34:59 06/09/2015 11:05:38 Low back pain 236501696 chronic lbp with worsening x week will d/c soma as not helpful return to cyclobenza jessica will stop ibuprofen and start Naprosyn 500 mg bid Encouraged alternate heat/ice. Declines PT- not helpful in past if no improvemen t in lbp will refer back to [facility]SS. Dysuria 00180574 UA look s fine but did previously and was + e. coli increase odor, concentrat ion will tx with Cipro 500 mg bid x 7 days submit for cx [id number] RANDI Hayward, [facility] [place] [address] [place] [address] 08/16/2015 15:55:26 08/16/2015 16:37:59 Insomnia 300611209 G47.00 Major depr essive disorder 785618013 F32.9 will refill this since seems to be infrequent , but informed in future controlled substances need to be through PCP Low back pain 581818455 M54.5 Acute on chronic. Udip neg here. Toradol for pain here and refer to [facility]- had bad experience at [facility] in past [id number] Clara Jeff NP , [facility] [place] [address] [place] [address] 12/21/2015 14:46:43 12/21/2015 15:09:15 Nicotine dependence 29511751 Z87.891 not considerin g quitting Tobacco user 561064957 Z 72.0 Discussed importance of smoking cessation. Pt not ready to quit. Excessive and frequent menstruation 421662634 N92.1 will check labs and Pelvic U/S Abdominal pain 54613078 R10.9 hx adn tx for hep c check labs and U/S Benign ess ential hypertension 4412386 I10 BP at goal Alcohol dependence 82177 003 F10.20 cut down drinking 3 drinks 4 nights a week [id number] Clara Jeff NP , [facility] [place] [address] [place] [address] 02/14/2016 13:33:25 02/14/2016 14:28:12 Major depressive disorder 512740642 F32.9 doing well on wellbutrin will c/w med RF on lorazepam Backache 622329967 M54.9 likely rhomboid strain advised heat/ice, given hand out will try tramadol for pain d/c flexeril as not helpful Cough 90739261 R05 R sided rhonchi cough in smoker will get CXR Adult heal th examination 572797129 Z00.00 see Risk Assessment and Lifestyle Change Counseling section above HM: [facility] 02/09 with 3 yr repeat; had menses today will rto 2 weeks Immunizati ons UTD> Benign ess ential hypertension 6134510 I10 BP at goal will c/w lisinopril Alcohol dependence 51776 003 F10.20 cut down drinking 3 drinks 4 nights a week Nicotine dependence 5629 4008 Z87.891 not considerin g quitting [id number] MICHELA Lopez, [facility] [place] [address] [place] [address] 1 11/15/2016 15:38:05 11/16/2016 12:14:14 Screening for malignant neoplasm of cervix 268774762 Z12.4 Cigarette smoker 2619287 7 F17.210 not ready to quitunders tands we will c/t address Tobacco user 156692606 Z 72.0 Discussed importance of smoking cessation. Pt not ready to quit. Generalize d anxiety disorder 38265652 F41.1 Persistent , worsening anxietydis cussed possibly d/c wellbutrin but she declinesdi scussed change of celexa but she declinesdi scussed therapy but pt declines- done before and did not like itdo not want to go back on lorazapam since she has been off benzos for monthswill see if any benefit with hydroxyzin e, Gastroesop hageal reflux disease 257301599 K21.9 RF Vaginitis 01195993 N76.0 yeast on examwill tx with Diflucan Menorrhagia 170577361 N9 2.0 heavy, periods q 2 weeksus nml [facility] to [facility]- Possibly consider Mirenacann ot do estrogen given smoking Alcohol dependence 70893 003 F10.20 C/t to drink 4-5 drinks a week which is a cut down from previouspt does not feel she has a problems with ETOH bc she does not need to drink and states she drinks out of boredomdis cussed the wide variety of presentati ons of ETOH dependence will c/t address Recurrent major depression 51662912 F33.9 mood low but stableanxi ety more of an issuesdisc uss some changes in meds (wellbutri n and celexa) but she declines. [id number] Clara Jeff NP , [facility] [place] [address] [place] [address] 12/06/2016 13:52:05 12/06/2016 14:41:29 Cigarette smoker 16152607 F17.210 not ready to quitunders tands we will c/t address Tobacco user 296492661 Z 72.0 Discussed importance of smoking cessation. Pt not ready to quit. Acute urin doc tract infection 858552189 N39.0 UA + nitswill submit for cxwill tx with Bactrim DS bid x 7 dayspush fluids. Panic diso rder without agoraphobia 13978982 F41.0 did not find vistaril helpfulwil l return to lorazepam 0.5 mg bid Benzodiaze pine dependence 597347974 F13.20 using dailytried vistaril- not helpfulret urn to same dose lorazepama dvised will not increase dose Menorrhagia 501124659 N9 2.0 [facility] for December Health Concerns Section Related Observation LastModified by Organization Detai ls LastModified Time None Recorded Concern Status LastModified by Organization Details LastModified Time None Recorded Advance Directives Directive N: given 08/04/11 Payers Encounter Date Sequence Insurance Name Policy Number Policy Castelan Covered Member ID Castelan Member ID Guarantor Name 08/16/2015 1 [facility] PLAN (MEDICAID HMO) [id number] Jackelyn Bledsoe [id number] Jackelyn Bledsoe 12/21/2015 1 [facility] [employer] [facility] PL[facility] (MEDICAID HMO) [id number] Jackelyn Bledsoe [id number] Jackelyn Bledsoe 02/14/2016 1 [facility] (MEDICAID HMO) [id number] Jackelyn Plascenciatte [id number] Jackelyn Plascenciatte 11/15/2016 1 [facility] [employer] [facility] PLAN (MEDICAID HMO) [id number] Jackelyn Plascenciatte [id number] Jackelyn Plascenciatte 12/06/2016 1 [facility] PL[facility] (MEDICAID HMO) [id number] Jackelyn Bledsoe [id number] Jackelyn Bledsoe Notes Date Note Type Note Provider Name and Address Organization Details Recorded Time 08/16/2015 text/html Chronic back sergey n. Worse for past 7 days. No new trauma. Gets this sort of flaring on naproxen and flexeril without help. In past when this occurs, has taken one of her dad's percocet, like today, which provided some help. No b/b incont. Maximiliano Vo PA-C [address] [place], [address], [facility] 08/16/2015 16:57:26 12/21/2015 text/html a/VMG-Dysuria/ur inary symptomsReported [...] RUQ abd pain. Intermittent. no weight loss.a/vmg-smoking [id number] bypatient.Physiologica l Dependence/Health RiskCurrently smoking 20 cigarettes per day Clara Jeff NP [address] [place], [address], [facility] 12/22/2015 12:40:42 02/14/2016 text/html Physical Exam/FemaleReported bypatient.PHAPatient is here for a Personal Health Appraisal. She describes her health status as good. Patient's health is the same as last year.Notes:Jackelyn is here for health maintanence exam. Last PHA was 02/09 HM: [facility] 02/09 with 3 yr repeat; declines to [...] room and availability of urgent care at [facility] Assessment and Lifestyle Change Counseling-female 40-49Reported bypatient.Diet:Coupon Collection Clerk ed about eating a diet low in [...] bypatient.Duration:Chr onic Control:Well-controlle d; BP Goal Less zmrm278/90; Treated with medications Compliance:Compliant with medications;Noncomplia nt [...] months. Duration:Currently smoking 20 cigarettes per loli/vmg-smoking [id number] bypatient.Readiness to quit smokingOn a scale of 1-10 with 1 being not ready and 10 being very ready the patient rates readiness to stop smoking as 2 Physiological Dependence/Health RiskCurrently smoking 20 cigarettes per day Clara Jeff NP [address] [place], [address], [facility] 02/14/2016 14:32:37 11/15/2016 text/html a/vmg-smoking ogcogpizk8Guvorrko bypatient.Readiness to quit smokingOn a scale of [...] in the morning. Clara Jeff NP [address] [place], [address], [facility] 11/16/2016 08:16:28 12/06/2016 text/html Feeling more anx ious now that she is on hydroxyzine 25 TID. [place] that the anxiety was controlled better with [...] reports that she has not seen a POND SAWYER yet for this has an appointment with ELVIRA POND SAWYER on 01/04. States she think her mother may have had menopause when she was early 40s. Is sexually active, not using control as her partner has a vasectomy. Clara Jeff NP [address] [place] [address], [phone], [facility] 12/06/2016 16:34:32 12/06/2016 text/html a/vmg-smoking ovxmjdhzl5Eimaonqb bypatient.Readiness to quit smokingOn a scale of 1-10 with 1 being not ready and 10 being very ready the patient rates readiness to stop smoking as 3 Physiological Dependence/Health RiskCurrently smoking 20 cigarettes per dayNotes:not thinking about quittingnot ready to think about quitting Clara Jeff NP [address] [place] [address], [phone], [facility] 12/06/2016 16:34:32 OBGyn Episode No OBEpisode recorded.
--- OUTSIDE RECORDS SUMMARY | 2024-12-03 14:53 | XMS_ITS | Clinical Summary ---
Author Organization [address] Address [address] [place] [phone] Phone Care Team Providers Care Associate Store Director Name Role Phone Unavailable Primary Care Provider [...] & [facility] eGFR (-LEBANESE) >60 >60 mL/min/1. 73m2 04/20/2021 4:42 PM [facility] eGFR (NON -Samoan) >60 >60 mL/min/1. 73m2 04/20/2021 4:42 PM [...] MD LAB BLOOD ORDERABLES [place] [address], [facility] [phone] from Last 3 Months or Most Recently Relevant to Health Maintenance Insurance [id number] MEDICAID [id number] MEDICAID [id number] MEDICAID
--- OUTSIDE RECORDS SUMMARY | 2024-12-03 14:53 | XMS_ITS | Encounter Summary ---
Author Organization [facility] [place] [address] Care Team Providers Care Aerosol Line Operator Name Role Phone Ayala Patton MD Primary Care Provider [phone] Reason for Visit * Reason Onset Date Comments ER follow up 11/18/2024 Encounter Details Date Type Department Care Team ([facility] st Contact Info) Description 11/18/2024 Telephone Adult Medicine [address] [phone] Joseline Martin RN ER follow up Social [...] care for your loved ones. For example, early childhood educator aide or elderly care for an older adult? [...] 11/18/2024 7:16 AM EST Pt seen [facility] 11/01 for abd pain Left vm for pt to return my call. documented in this encounter Plan of Treatment Upcoming Encounters Date Type Department Care Team (Late st Contact Info) Description 12/04/2024 1:30 PM EST Office Visit Adult Medicine [facility] [address] [place] [address] Ayala Patton MD [address] [place] [address] 04/13/2025 11:30 AM EDT Office Visit Adult Medicine [facility] [address] [place] [address] Laura Nj PA [address] [place] [address] documented as of this encounter Visit Diagnoses Not on filedocumented in this encounter Additional Health Concerns Assessment Noted Time PHQ-9 Depression Total Score: 0 09/02/20 24 9:48 AM EST documented as of this encounter Care Teams Aerosol Line Operator Relationship Specialty Start Date End Date Ayala Patton MD [address] [place] [address] PCP - General Internal Medicine 10/24/21 documented as of this encounter
--- OUTSIDE RECORDS SUMMARY | 2024-12-03 14:53 | XMS_ITS | Encounter Summary ---
Author Organization [facility] Address [address] [place] [address] Care Team Providers Care Cement Mixer Name Role Phone Mable Flynn MD Primary Care Provider Unavail able Ayala Patton MD Primary Care Provider [phone] Darrius Cross MD Primary Care Provider [phone] Ayala Patton MD Primary Care Provider [phone] Reason for Visit * Reason Onset Date Comments TEST RESULTS 05/06/2019 result notes Encounter Details Date Type Department Care Team Description 05/06/2019 Telephone Adult Medicine [address] [address] Belinda Johnson PA-C TEST RESULTS (result notes) [...] on filedocumented in this encounter Care Teams Cement Mixer Relationship Specialty Start Date End Date Mable Flynn MD PCP - General Internal Medicine 03/27/17 10/23/21 Ayala Patton MD [address] [place] [address] [phone] PCP - General Internal Medicine 10/24/21 03/20/23 Darrius Cross MD [address] [place] [phone] PCP - General Internal Medicine 03/21/23 07/03/23 Ayala Patton MD [address] [place] [address] PCP - General Internal Medicine 07/04/23 documented as of this encounter
--- OUTSIDE RECORDS SUMMARY | 2024-12-03 14:53 | XMS_ITS | Encounter Summary ---
Author Organization [facility] Address [address] [place] [address] Care Team Providers Care Property Coordinator Name Role Phone Ayala Patton MD Primary Care Provider [phone] Encounter Details Date Type Department Care Team Description 11/02/2023 Hospital Medical Records [address] [place] [address] [facility] Social History Tobacco Use Types Packs/Day [...] on filedocumented in this encounter Care Teams Property Coordinator Relationship Specialty Start Date End Date Ayala Patton MD [address] [place] [address] [phone] PCP - General Internal Medicine 07/04/23 documented as of this encounter
--- OUTSIDE RECORDS SUMMARY | 2024-12-03 14:53 | XMS_ITS | Encounter Summary ---
Author Organization [facility] Address [address] [place] [address] Care Team Providers Care Teller Manager Name Role Phone Ayala Patton MD Primary Care Provider [phone] Encounter Details Date Type Department Care Team Description 11/02/2023 Hospital Medical Records [address] [place] [address] Akil Tilley MD Social History Tobacco Use [...] on filedocumented in this encounter Care Teams Teller Manager Relationship Specialty Start Date End Date Ayala Patton MD [address] [place] [address] PCP - General Internal Medicine 07/04/23 documented as of this encounter
--- OUTSIDE RECORDS SUMMARY | 2024-12-03 14:54 | XMS_ITS | Encounter Summary ---
Author Organization [facility] Address [address] [place] [address] Care Team Providers Care Senior Foreman Name Role Phone Mable Flynn MD Primary Care Provider Unavail able Ayala Patton MD Primary Care Provider [phone] Darrius Cross MD Primary Care Provider [phone] Ayala Patton MD Primary Care Provider [phone] Encounter Details Date Type Department Care Team Description 06/01/2020 [employer] Report Medical Records [address] [place] [address] Jax Ramesh Social History Tobacco Use Types [...] filedocumented in this encounter Care Teams Senior Foreman Relationship Specialty Start Date End Date Mable Flynn MD PCP - General Internal Medicine 03/27/17 10/23/21 Ayala Patton MD [address] [place] [address] [phone] PCP - General Internal Medicine 10/24/21 03/20/23 Darrius Cross MD [address] [place] [address] [place] [phone] PCP - General Internal Medicine 03/21/23 07/03/23 Ayala Patton MD [address] [place] [address] PCP - General Internal Medicine 07/04/23 documented as of this encounter
--- OUTSIDE RECORDS SUMMARY | 2024-12-03 14:54 | XMS_ITS | Encounter Summary ---
Author Organization [facility] Address [address] [place] [address] Care Team Providers Care Math Tutor Name Role Phone Ayala Patton MD Primary Care Provider [phone] Encounter Details Date Type Department Care Team Description 01/21/2024 Hospital Medical Records [address] [place] [address] India Warren MD Social History Tobacco Use [...] on filedocumented in this encounter Care Teams Math Tutor Relationship Specialty Start Date End Date Ayala Patton MD [address] [place] [address] PCP - General Internal Medicine 07/04/23 documented as of this encounter
--- OUTSIDE RECORDS SUMMARY | 2024-12-03 14:54 | XMS_ITS | Encounter Summary ---
Author Organization [facility] Address [address] [place] [address] Care Team Providers Care Business Analytics Faculty Member Name Role Phone Ayala Patton MD Primary Care Provider [phone] Encounter Details Date Type Department Care Team Description 01/30/2024 Orders Only Medical Records [address] [place] [address] Social History Tobacco Use Types Packs/Day Years [...] this encounter Results * OUTSIDE LAB (01/21/2024) [facility] LAB * OUTSIDE ECHO (01/21/2024) [facility] CARDIOLOGY * OUTSIDE PLAIN FILM (01/19/2024) [facility] RADIOLOGY * OUTSIDE CT (01/18/2024) [facility] RADIOLOGY * OUTSIDE PLAIN FILM (01/18/2024) [facility] RADIOLOGY * OUTSIDE VASCULAR STUDY (01/18/2024) [facility] CARDIOLOGY documented in this encounter Visit Diagnoses Not on filedocumented in this encounter Care Teams Business Analytics Faculty Member Relationship Specialty Start Date End Date Ayala Patton MD [address] [place] [address] PCP - General Internal Medicine 07/04/23 documented as of this encounter
--- OUTSIDE RECORDS SUMMARY | 2024-12-03 14:54 | XMS_ITS | Encounter Summary ---
Author Organization [facility] Address [address] [place] [address] Care Team Providers Care Body Shop Floorperson Name Role Phone Ayala Patton MD Primary Care Provider [phone] Encounter Details Date Type Department Care Team Description 01/18/2024 Hospital Medical Records [address] [place] [address] Social History Tobacco Use Types Packs/Day Years [...] filedocumented in this encounter Care Teams Body Shop Floorperson Relationship Specialty Start Date End Date Ayala Patton MD [address] [place] [address] PCP - General Internal Medicine 07/04/23 documented as of this encounter
--- OUTSIDE RECORDS SUMMARY | 2024-12-03 14:54 | XMS_ITS | Encounter Summary ---
Author Organization [facility] Address [address] [place] [address] Care Team Providers Care Continuity Reader Name Role Phone Mable Flynn MD Primary Care Provider Unavail able Ayala Patton MD Primary Care Provider [phone] Darrius Cross MD Primary Care Provider [phone] Ayala Patton MD Primary Care Provider [phone] Reason for Visit * Reason Onset Date Comments APPOINTMENT 05/03/2021 Encounter Details Date Type Department Care Team Description 05/03/2021 Telephone Physiatry - [address] [address] Carlso Adair PA-C APPOINTMENT Social History Tobacco Use Types Packs/Day [...] Miscellaneous Notes * Telephone Encounter - Jaz Ceballos - 05/03/2021 9:54 AM EDT Patient is referred to: physiatry. Reason for referral: h/o alcoholism. Paresthesias and pain in hands and wrists FYI Patient no showed her appointment with Carlos Adair on 04/26/21. Phone is a busy signal. We couldnot leave a voice mail to reschedule. I sent an unable to reach letter and no response from the patient. documented in this encounter Plan of Treatment Not on file documented as of this encounter Visit Diagnoses Not on filedocumented in this encounter Care Teams Continuity Reader Relationship Specialty Start Date End Date Mable Flynn MD PCP - General Internal Medicine 03/27/17 10/23/21 Ayala Patton MD [address] [place] [address] PCP - General Internal Medicine 10/24/21 03/20/23 Darrius Cross MD [address] [place] [phone] PCP - General Internal Medicine 03/21/23 07/03/23 Ayala Patton MD [address] [place] [address] PCP - General Internal Medicine 07/04/23 documented as of this encounter
--- OUTSIDE RECORDS SUMMARY | 2024-12-03 14:54 | XMS_ITS | Encounter Summary ---
Author Organization [facility] Address [address] [place] [address] Care Team Providers Care Web Applications Administrator Name Role Phone Mable Flynn MD Primary Care Provider Unavail able Ayala Patton MD Primary Care Provider [phone] Darrius Cross MD Primary Care Provider [phone] Ayala Patton MD Primary Care Provider [phone] Encounter Details Date Type Department Care Team Description 05/15/2017 Release of Information Medical Records [address] [place] [address] Abstract, Provider Social History Tobacco Use Types [...] on filedocumented in this encounter Care Teams Web Applications Administrator Relationship Specialty Start Date End Date Mable Flynn MD PCP - General Internal Medicine 03/27/17 10/23/21 Ayala Patton MD [address] [place] [address] PCP - General Internal Medicine 10/24/21 03/20/23 Darrius Cross MD [address] [place] [phone] PCP - General Internal Medicine 03/21/23 07/03/23 Ayala Patton MD [address] [place] [address] PCP - General Internal Medicine 07/04/23 documented as of this encounter
--- OUTSIDE RECORDS SUMMARY | 2024-12-03 14:54 | XMS_ITS | Encounter Summary ---
Author Organization [facility] Address [address] [place] [address] Care Team Providers Care New Car Get Ready Mechanic Name Role Phone Mable Flynn MD Primary Care Provider Unavail able Ayala Patton MD Primary Care Provider [phone] Darrius Cross MD Primary Care Provider [phone] Ayala Patton MD Primary Care Provider [phone] Encounter Details Date Type Department Care Team Description 03/30/2020 Sr Technical Sales Consultant Report Medical Records [address] [place] [address] Jax Ramesh Social History Tobacco Use Types [...] on filedocumented in this encounter Care Teams New Car Get Ready Mechanic Relationship Specialty Start Date End Date Mable Flynn MD PCP - General Internal Medicine 03/27/17 10/23/21 Ayala Patton MD [address] [place] [address] [phone] PCP - General Internal Medicine 10/24/21 03/20/23 Darrius Cross MD [address] [place] [address] [place] [phone] PCP - General Internal Medicine 03/21/23 07/03/23 Ayala Patton MD [address] [place] [address] PCP - General Internal Medicine 07/04/23 documented as of this encounter
--- OUTSIDE RECORDS SUMMARY | 2024-12-03 14:54 | XMS_ITS | Encounter Summary ---
Author Organization [facility] Address [address] [place] [address] Care Team Providers Care Residential Support Worker Name Role Phone Ayala Patton MD Primary Care Provider [phone] Encounter Details Date Type Department Care Team Description 11/05/2023 Hospital Medical Records [address] [place] [address] Carlos Lerma Social History Tobacco Use Types Packs/Day Years [...] filedocumented in this encounter Care Teams Residential Support Worker Relationship Specialty Start Date End Date Ayala Patton MD [address] [place] [address] [phone] PCP - General Internal Medicine 07/04/23 documented as of this encounter
--- OUTSIDE RECORDS SUMMARY | 2024-12-03 14:54 | XMS_ITS | Encounter Summary ---
Author Organization [facility] Address [address] [place] [address] Care Team Providers Care Meat Washer Name Role Phone Ayala Patton MD Primary Care Provider [phone] Encounter Details Date Type Department Care Team Description 01/18/2024 Hospital Medical Records [address] [place] [address] Social History Tobacco Use Types Packs/Day Years [...] on filedocumented in this encounter Care Teams Meat Washer Relationship Specialty Start Date End Date Ayala Patton MD [address] [place] [address] PCP - General Internal Medicine 07/04/23 documented as of this encounter
--- OUTSIDE RECORDS SUMMARY | 2024-12-03 14:54 | XMS_ITS | Encounter Summary ---
Author Organization [facility] Address [address] [place] [address] Care Team Providers Care Bench Grinder Name Role Phone Darrius Cross MD Primary Care Provider [phone] Ayala Patton MD Primary Care Provider [phone] Encounter Details Date Type Department Care Team Description 05/24/2023 Telephone Internal Medicine - [place] [address] [facility], [address] [place] [address] Darrius Cross MD [address] [place] [phone] Social History Tobacco Use Types Packs/Day [...] on filedocumented in this encounter Care Teams Bench Grinder Relationship Specialty Start Date End Date Darrius Cross MD [address] [phone] PCP - General Internal Medicine 03/21/23 07/03/23 Ayala Patton MD [address] [place] [address] PCP - General Internal Medicine 07/04/23 documented as of this encounter
--- OUTSIDE RECORDS SUMMARY | 2024-12-03 14:54 | XMS_ITS | Encounter Summary ---
Author Organization [facility] Address [address] [place] [address] Care Team Providers Care Route Aide Name Role Phone Mable Flynn MD Primary Care Provider Unavail able yAala Patton MD Primary Care Provider [phone] Darrius Cross MD Primary Care Provider [phone] Ayala Patton MD Primary Care Provider [phone] Reason for Visit * Reason Comments E-prescribe Rx Request Encounter Details Date Type Department Care Team Description 09/07/2019 Refill Adult Medicine [address] [address] Belinda Johnson PA-C E-prescribe Rx Request Social History Tobacco Use [...] encounter Miscellaneous Notes * Telephone Encounter - Theresa Marie M.A. - 09/08/2019 3:21 PM EST Lab Results Component Value Date ALB 4.5 03/08/2018 SGOT 24 03/08/2018 SGPT 26 03/08/2018 TBILI 0.4 03/08/2018 ALKPHOS 99 03/08/2018 TP 7.2 03/08/2018 * Telephone Encounter - Maria Alejandra Desir - 09/08/2019 9:58 AM EST Patient would like script to be: E-PRESCRIBED/FAXED TO PHARMACY WHEN WAS THE PATIENT'S LAST APPOINTMENT IN ADULT MEDICINE? 05/05/19 WHEN WAS THE LAST TIME THE PATIENT SAW THEIR PCP? 04/26/18 Does patient have an upcoming appointment? Patient was sent a letter to call and set up an appointment as they are due. (THE MEDICATION REQUESTED IS ON THE MED LIST ABOVE) All of the medications requested were on the CURRENT MEDS list Did you check the Pharmacy information above?: YES Patient wants: 30 -day supply Is this a mail order prescription request ? NO If the refill is from a FAXED refill request what is the RX # listed on the fax? N/A Patients current insurance carrier is: Payor: [employer] / Plan: [employer] / Product Type: MEDICAID RISK documented in this encounter Plan of Treatment Not on file documented as of this encounter Visit Diagnoses Not on filedocumented in this encounter Care Teams Route Aide Relationship Specialty Start Date End Date Mable Flynn MD PCP - General Internal Medicine 03/27/17 10/23/21 Ayala Patton MD [address] [place] [address] PCP - General Internal Medicine 10/24/21 03/20/23 Darrius Cross MD [address] [place] [phone] PCP - General Internal Medicine 03/21/23 07/03/23 Ayala Patton MD [address] [place] [address] PCP - General Internal Medicine 07/04/23 documented as of this encounter
--- OUTSIDE RECORDS SUMMARY | 2024-12-03 14:54 | XMS_ITS | Clinical Summary ---
Author Organization [facility] [address] [place] [address] [place] [address] Phone Care Team Providers Care Electronic Organ Mechanic Name Role Phone Ayala Patton MD Primary Care Provider [phone] Allergies Active Allergy Reactions Criticality Noted Date Comments Bupropion Seizures High 09/02/2024 In combination with alcohol use disorder, low magnesium, low potassium, cocaine use Medications Medication Sig Dispensed Refills Start Date End Date Status magnesium oxide (MAG-OX) 400 mg magnesium tablet Take 1 tablet (400 mg total) by mouth. 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 difficile colitis (Primary Dx); Alcohol dependence with other alcohol-induced disorder (CMS/HCC); Anxiety and depression; Diarrhea of presumed infectious origin; Hypertension, unspecified type 09/02/2024 9:30 AM EST Office Visit Adult Medicine [address] [phone] Amelia Grier PA Seizure (CMS/HCC) (Primary Dx); [...] (Twinrix) 18yo and older 08/21/2011 Hepatitis B (Bpdivhy-E-Dleha , Recombivax HB-Adult) 19yo and older 11/11/2003 [...] treatment [address] Sheets @ [facility] GI Insomnia Anxiety and depression 08/13/2017 Hyperlipidemia [...] your loved ones. For example, early childhood worker or elderly care for an older [...] PM EST Office Visit Adult Medicine [address] [phone] Ayala Patton MD [address] [place] [address] 04/13/2025 11:30 AM EDT Office Visit Adult [address] [phone] Laura Nj PA [address] [place], [place] Health Maintenance Due Date Last Done Comments [...] Vaccine ( season) 2024 10/27/2021, 03/22/2021, 03/01/2021 Colorectal Cancer Screening: Colonoscopy 01/30/2025 01/30/2023 Social Influencers of Health Screening 09/02/2025 09/02/2024 Hypertension/CHF/CAD Annual BMP Blood Test 10/10/2025 10/10/2024, 03/17/2024 Depression Screening 11/30/2025 11/30/2024, 09/02/20 Cholesterol Screening (Lipid Panel) 10/20/2027 10/20/2022 DTaP,Tdap,and [...] LAB CHEMISTRY METHOD 10/10/2024 4:21 PM EST [facility] Blood Venous blood specimen / Unknown Venipuncture / Unknown 10/10/2024 11:35 AM EST 10/10/2024 11:35 AM EST Amelia PASTRANA LAB BLOOD ORDERABLES [facility] [address] [place] [address], * (ABNORMAL) Comprehensive metabolic panel (10/10/2024 11:35 AM EST) Sodium 138 133 - 145 mmol/L LAB CHEMISTRY METHOD 10/10/2024 4:21 PM [facility] Potassium 3.5 3.5 - 5.5 mmol/L LAB CHEMISTRY METHOD 10/10/2024 4:21 PM [facility] Chloride 101 96 - 110 mmol/L LAB CHEMISTRY METHOD 10/10/2024 4:21 PM [facility] CO2 25 21 - 32 mmol/L LAB CHEMISTRY METHOD 10/10/2024 4:21 PM [facility] Anion Gap 12(H) 3 - 11 LAB CHEMISTRY METHOD 10/10/2024 4:21 PM [facility] Glucose 110(H) 70 - 100 mg/dL LAB CHEMISTRY METHOD 10/10/2024 4:21 PM [facility] BUN 12 5 - 25 mg/dL LAB CHEMISTRY METHOD 10/10/2024 4:21 PM [facility] Creatinine 0.77 0.50 - 1.10 mg/dL LAB CHEMISTRY METHOD 10/10/2024 4:21 PM [facility] eGFR 94 >=60 mL/min/1. 73m2 LAB CHEMISTRY METHOD 10/10/2024 4:21 PM [facility] Comment:Calculation based on the??Chronic Kidney Disease Epidemiology Collaboration (CKD-EPI) equation refit??without adjustment for race. BUN/Creatinine Ratio 15.6 LAB CHEMISTRY METHOD 10/10/2024 4:21 PM [facility] Calcium 9.3 8.5 - 10.5 mg/dL LAB CHEMISTRY METHOD 10/10/2024 4:21 PM [facility] AST (SGOT) 140(H) 10 - 42 unit/L LAB CHEMISTRY METHOD 10/10/2024 4:21 PM [facility] ALT (SGPT) 94(H) 10 - 60 unit/L LAB CHEMISTRY METHOD 10/10/2024 4:21 PM [facility] Alkaline Phosphatase 174(H) 42 - 121 unit/L LAB CHEMISTRY METHOD 10/10/2024 4:21 PM [facility] Total Protein 6.8 6.0 - 8.0 g/dL LAB CHEMISTRY METHOD 10/10/2024 4:21 PM [facility] Albumin 3.7 3.2 - 5.0 g/dL LAB CHEMISTRY METHOD 10/10/2024 4:21 PM [facility] Total Bilirubin 0.3 0.0 - 1.4 mg/dL LAB CHEMISTRY METHOD 10/10/2024 4:21 PM [facility] Blood Venous blood specimen / Unknown Venipuncture / Unknown 10/10/2024 11:35 AM EST 10/10/2024 11:35 AM EST Ayala Patton MD LAB BLOOD ORDERABLES [facility] [address] [place] [address], * Pap smear (12/16/2021) 12/16/2021 Narrative HISTORICAL TESTING LAB RESULTING AGENCY - 01/02/2022 4:00 PM EST [id number] THINPREP PAP, IMAGED: ATYPICAL SQUAMOUS CELLS OF [...] ASCUS, UNKNOWN HPV, [Z12.4, Z01.419]. Jesica Patel [facility] CYTOLOGY ORDERAB LES HISTORICAL TESTING LAB RESULTING AGENCY * OLMAN SCREENING DIGITAL (04/06/2021 1:38 PM EDT) Anatomical Region Laterality Modality Mammography 04/06/2021 11:0 3 AM EDT Narrative 04/06/2021 1:38 PM EDT [facility] Diagnostic Imaging Department [address] [place] [address] [id number] Patient: ??JACKELYN BLEDSOE ?/Age/Sex: 1975 - 45 - F Unit#: ??[id number] ? Location/Status: ??SPDIMAM/REG CLI ? Mnemonic/Ordering Site: ??DIGSC/SPMAM Ordering Physician: ??CAROL FLYNN MD [facility] Screening Digital - 04/06/21 - 1117 EXAM: [facility] Screening Digital EXAM DATE AND TIME: 04/06/2021 11:18 AM HISTORY: ??Screening. Left breast biopsy in 2014, pathology benign (fibroadenoma). Maternal aunt had breast carcinoma. COMPARISON: ??05/17/18, 05/11/17, 05/03/16 TECHNIQUE: CC and MLO views of both breasts were obtained using full field digital mammography. Bilateral digital breast tomosynthesis was performed in the MLO projection. Computer aided detection with the Stupil 7.2-H was employed. TISSUE DENSITY: c. The breasts [...] Routine screening mammogram BILATERAL in 1 year. 14552, 95596 3342F, 7025F Dictating Physician: ??RAISA GUTIÉRREZ MD Electronically Signed by: ??RAISA GUTIÉRREZ MD Dic Date/Time: ??04/06/21 1337 Sign date/Time: ??04/06/21 1338 Procedure Note Raisa Gutiérrez MD - 10/17/2022 [facility] Diagnostic Imaging Department [address] [place] [id number] Patient: JACKELYN BLEDSOE Travis /Age/Sex: 1975 - 45 - F Unit#: [id number] Location/Status: SPDIMAM/REG CLI Mnemonic/Ordering Site: [facility] Ordering Physician: CAROL FLYNN MD [facility] Screening Digital - 04/06/21 - 1118 EXAM: [facility] Screening Digital EXAM DATE AND TIME: 04/06/2021 11:18 AM HISTORY: Screening. Left breast biopsy in 2014, pathology benign (fibroadenoma). Maternal aunt had breast carcinoma. COMPARISON: 05/17/18, 05/11/17, 05/03/16 TECHNIQUE: CC and MLO views of both breasts were obtained using fullfield digital mammography. Bilateral digital breast tomosynthesis was performedin the MLO projection. Computer aided detection with the Stupil 7.2-TUBEas employed. TISSUE DENSITY: c. The breasts are [...] Routine screening mammogram BILATERAL in 1 year. 35718, 40555 3342F, 7025F Dictating Physician: RAISA GUTIÉRREZ MD Electronically Signed by: RAISA GUTIÉRREZ MD Dic Date/Time: 04/06/21 1337 Sign date/Time: 04/06/21 1338 Carol Flynn MD IMG BI PROCEDURES from Last 3 Months or Most Recently Relevant to Health Maintenance Care Teams Electronic Organ Mechanic Relationship Specialty Start Date End Date Ayala Patton MD [address] [place] [address] PCP - General Internal Medicine 10/24/21
--- OUTSIDE RECORDS SUMMARY | 2024-12-03 14:54 | XMS_ITS | Encounter Summary ---
Author Organization [facility] Address [address] [place] [address] Care Team Providers Care Bull Fiddle Player Name Role Phone Ayala Patton MD Primary Care Provider [phone] Encounter Details Date Type Department Care Team Description 12/20/2023 Orders Only Medical Records [address] [place] [address] [facility] Social History Tobacco Use Types [...] this encounter Results * OUTSIDE ULTRASOUND (10/14/2022) [facility] RADIOLOGY documented in this encounter Visit Diagnoses Not on filedocumented in this encounter Care Teams Bull Fiddle Player Relationship Specialty Start Date End Date Ayala Patton MD [address] [place] [address] PCP - General Internal Medicine 07/04/23 documented as of this encounter
--- OUTSIDE RECORDS SUMMARY | 2024-12-03 14:54 | XMS_ITS | Encounter Summary ---
Author Organization [facility] Address [address] [place] [address] Care Team Providers Care Directory Operator Name Role Phone Mable Flynn MD Primary Care Provider Unavail able Ayala Patton MD Primary Care Provider [phone] Darrius Cross MD Primary Care Provider [phone] Ayala Patton MD Primary Care Provider [phone] Encounter Details Date Type Department Care Team Description 02/08/2021 Hospital Medical Records [address] [place] [address] Rakan Villalba MD Social History Tobacco Use Types Packs/Day [...] on filedocumented in this encounter Care Teams Directory Operator Relationship Specialty Start Date End Date Mable Flynn MD PCP - General Internal Medicine 03/27/17 10/23/21 Ayala Patton MD [address] [place] [address] PCP - General Internal Medicine 10/24/21 03/20/23 Darrius Cross MD [address] [phone] PCP - General Internal Medicine 03/21/23 07/03/23 Ayala Patton MD [address] [place] [address] PCP - General Internal Medicine 07/04/23 documented as of this encounter
--- OUTSIDE RECORDS SUMMARY | 2024-12-03 14:54 | XMS_ITS | Encounter Summary ---
Author Organization [facility] Address [address] [place] [address] Care Team Providers Care Oil Rigger Name Role Phone Ayala Patton MD Primary Care Provider [phone] Reason for Visit * Reason Onset Date Comments hospital follow up 02/19/2024 Encounter Details Date Type Department Care Team Description 02/19/2024 Telephone Adult Medicine [facility] [address] [place] [address] [phone] Ayala Patton MD [address] [place] [address] [phone] hospital follow up Social History Tobacco Use [...] patient. She stated that she went to [facility], [facility], and [facility] all in one week for gastroenteritis. She does not remember the dates, but it was about 2 weeks ago she was in & out of the hospitals. Booked hospital follow up for 02/29/[address] Patton. * Telephone Encounter - Sandra Woodward - 02/19/2024 3:52 PM EDT Hospital follow up appointment needed Hospital patient was treated at: [facility], [place] Was this only an ER visit [...] on filedocumented in this encounter Care Teams Oil Rigger Relationship Specialty Start Date End Date Ayala Patton MD [address] [place] [address] PCP - General Internal Medicine 07/04/23 documented as of this encounter
--- OUTSIDE RECORDS SUMMARY | 2024-12-03 14:54 | XMS_ITS | Encounter Summary ---
Author Organization [facility] Address [address] [place] [address] Care Team Providers Care Radio Machinist Name Role Phone Mable Flynn MD Primary Care Provider Unavail able Ayala Patton MD Primary Care Provider [phone] Darrius Cross MD Primary Care Provider [phone] Ayala Patton MD Primary Care Provider [phone] Reason for Visit * Reason Onset Date Comments REFERRAL 03/11/2018 Encounter Details Date Type Department Care Team Description 03/11/2018 Telephone Physiatry - [address] [address] David Horne DO REFERRAL Social History Tobacco [...] on filedocumented in this encounter Care Teams Radio Machinist Relationship Specialty Start Date End Date Mable Flynn MD PCP - General Internal Medicine 03/27/17 10/23/21 Ayala Patton MD [address] [place] [address] [phone] PCP - General Internal Medicine 10/24/21 03/20/23 Darrius Cross MD [address] [place] [phone] PCP - General Internal Medicine 03/21/23 07/03/23 Ayala Patton MD [address] [place] [address] [phone] PCP - General Internal Medicine 07/04/23 documented as of this encounter
--- OUTSIDE RECORDS SUMMARY | 2024-12-03 14:54 | XMS_ITS | Encounter Summary ---
Author Organization [facility] Address [address] [place] [address] Care Team Providers Care Timber Skidder Name Role Phone Ayala Patton MD Primary Care Provider [phone] Encounter Details Date Type Department Care Team Description 12/19/2023 Orders Only Medical Records [address] [place], [place] [id number] [place] [address] Inc Social History Tobacco Use Types Packs/Day [...] PA-C RADIOLOGY * OUTSIDE NUCLEAR MEDICINE (11/02/2023) [facility] RADIOLOGY * OUTSIDE ULTRASOUND (11/01/2023) [facility] RAD[facility]OLOGY * OUTSIDE CT (11/01/2023) Narrative Authorizing Provider Result [facility] RADIOLOGY documented in this encounter Visit Diagnoses Not on filedocumented in this encounter Care Teams Timber Skidder Relationship Specialty Start Date End Date Ayala Patton MD [address] [place] [id number] PCP - General Internal Medicine 07/04/23 documented as of this encounter
--- OUTSIDE RECORDS SUMMARY | 2024-12-03 14:54 | XMS_ITS | Encounter Summary ---
Author Organization [facility] Address [address] [place] [address] Care Team Providers Care Stock Preparation Operator Name Role Phone Mable Flynn MD Primary Care Provider Unavail Velma Driver Primary Care Provider Ayala Mora MD Primary Care Provider [phone] Darrius Cross MD Primary Care Provider [phone] Ayala Patton MD Primary Care Provider [phone] Reason for Visit * Reason Onset Date Comments TEST RESULTS 01/16/2017 Encounter Details Date Type Department Care Team Description 01/16/2017 Telephone OBGYN - 271 [facility] [address] [place] [address] Jesica Patel CNM [address] [place] [address] TEST RESULTS Social History Tobacco [...] on filedocumented in this encounter Care Teams Stock Preparation Operator Relationship Specialty Start Date End Date Mable Flynn MD PCP - General Internal Medicine 03/27/17 10/23/21 Velma Graves PCP - General 11/13/16 03/26/17 Ayala Patton MD [address] [place] [address] PCP - General Internal Medicine 10/24/21 03/20/23 Darrius Cross MD [address] [place] [phone] PCP - General Internal Medicine 03/21/23 07/03/23 Ayala Patton MD [address] [place] [address] PCP - General Internal Medicine 07/04/23 documented as of this encounter
--- OUTSIDE RECORDS SUMMARY | 2024-12-03 14:54 | XMS_ITS | Encounter Summary ---
Author Organization [facility] Address [address] [place] [address] Care Team Providers Care Residential Program Manager Name Role Phone Mable Flynn MD Primary Care Provider Unavail Velma Driver Primary Care Provider Ayala Mora MD Primary Care Provider [phone] Darrius Cross MD Primary Care Provider [phone] Ayala Patton MD Primary Care Provider [phone] Encounter Details Date Type Department Care Team Description 02/01/2017 Transfer Records Medical Records [address] [place] [address] Abstract, Provider Social History Tobacco Use Types [...] Manager Relationship Specialty Start Date End Date Mable Flynn MD PCP - General Internal Medicine 03/27/17 10/23/21 Velma Graves PCP - General 11/13/16 03/26/17 Ayala Patton MD [address] [place] [address] PCP - General Internal Medicine 10/24/21 03/20/23 Darrius Cross MD 175 [facility] [address] [place] [phone] PCP - General Internal Medicine 03/21/23 07/03/23 Ayala Patton MD [address] [place] [address] PCP - General Internal Medicine 07/04/23 documented as of this encounter
--- OUTSIDE RECORDS SUMMARY | 2024-12-03 14:54 | XMS_ITS | Encounter Summary ---
Author Organization [facility] Address [address] [place] [address] Care Team Providers Care Farm Machinery Engine Mechanic Name Role Phone Ayala Patton MD Primary Care Provider [phone] Encounter Details Date Type Department Care Team Description 12/10/2023 Hospital Medical Records [address] [place] [address] [facility] Social History Tobacco Use Types [...] on filedocumented in this encounter Care Teams Farm Machinery Engine Mechanic Relationship Specialty Start Date End Date Ayala Patton MD [address] [place] [address] [phone] PCP - General Internal Medicine 07/04/23 documented as of this encounter
--- OUTSIDE RECORDS SUMMARY | 2024-12-03 14:54 | XMS_ITS | Encounter Summary ---
Author Organization [facility] Address [address] [place] [address] Care Team Providers Care Manager Endoscopy Name Role Phone Ayala Patton MD Primary Care Provider [phone] Encounter Details Date Type Department Care Team Description 02/25/2024 Hospital Medical Records [address] [place] [address] Luis Carlos Browning Social History Tobacco Use [...] on filedocumented in this encounter Care Teams Manager Endoscopy Relationship Specialty Start Date End Date Ayala Patton MD [address] [place] [address] PCP - General Internal Medicine 07/04/23 documented as of this encounter
--- OUTSIDE RECORDS SUMMARY | 2024-12-03 14:55 | XMS_ITS | Encounter Summary ---
Author Organization [facility] Address [address] [place] [address] Care Team Providers Care Local Sales Associate Name Role Phone Ayala Patton MD Primary Care Provider [phone] Reason for Visit * Reason Onset Date Comments refill request 05/16/2024 Encounter Details Date Type Department Care Team Description 05/16/2024 Refill Adult Medicine [address] [phone] Ayala Patton MD [address] [place] [address] [phone] refill request Social History Tobacco Use Types [...] [employer] HMO F 1+/$0 / Product Type: [id number] documented in this encounter Plan of Treatment Not on file documented as of this encounter Visit Diagnoses Not on filedocumented in this encounter Care Teams Local Sales Associate Relationship Specialty Start Date End Date Ayala Patton MD [address] [place] [address] PCP - General Internal Medicine 07/04/23 documented as of this encounter
--- OUTSIDE RECORDS SUMMARY | 2024-12-03 14:55 | XMS_ITS | Encounter Summary ---
Author Organization [facility] Address [address] [place] [address] Care Team Providers Care Addiction Therapist Name Role Phone Mable Flynn MD Primary Care Provider Unavail able Ayala Patton MD Primary Care Provider [phone] Darrius Cross MD Primary Care Provider [phone] Ayala Patton MD Primary Care Provider [phone] Encounter Details Date Type Department Care Team Description 04/08/2018 Orders Only Adult Medicine [address] [phone] Mable Flynn MD Social History Tobacco Use [...] on filedocumented in this encounter Care Teams Addiction Therapist Relationship Specialty Start Date End Date Mable Flynn MD PCP - General Internal Medicine 03/27/17 10/23/21 Ayala Patton MD [address] [place] [address] [phone] PCP - General Internal Medicine 10/24/21 03/20/23 Darrius Cross MD [address] [place] [phone] PCP - General Internal Medicine 03/21/23 07/03/23 Ayala Patton MD [address] [place] [phone] PCP - General Internal Medicine 07/04/23 documented as of this encounter
--- OUTSIDE RECORDS SUMMARY | 2024-12-03 14:55 | XMS_ITS | Encounter Summary ---
Author Organization [facility] Address [address] [place] [address] Care Team Providers Care Personnel Security Specialist Name Role Phone Mable Flynn MD Primary Care Provider Unavail able Ayala Patton MD Primary Care Provider [phone] Darrius Cross MD Primary Care Provider [phone] Ayala Patton MD Primary Care Provider Reason for Visit * Reason Onset Date Comments TEST RESULTS 07/08/2018 Encounter Details Date Type Department Care Team Description 07/08/2018 Telephone Adult [address] [address] Mendy Palmer PA-C TEST RESULTS Social History Tobacco Use Types [...] encounter Miscellaneous Notes * Telephone Encounter - Tia Gonzales - 07/08/2018 3:52 PM EDT Inform patient: ANY URGENT OR ABNORMAL RESULTS WIILL RESULT IN A CALL BACK TO THE PATIENT DAYDAY. Pt would like to review her us of liver and kidneys From a previous provider Type of test: : urine culture Date test was performed: 07/05/18 Where was the test performed: [facility] Who ordered this test?: mendy palmer Is the doctor here today?: yes Can the message wait until the doctor returns?: NO IF PATIENT'S PCP IS NOT IN INSTRUCT PATIENT THAT THEY WILL RECEIVE A CALL BACK WHEN THE PCP IS IN THE OFFICE NEXT. documented in this encounter Plan of Treatment Not on file documented as of this encounter Visit Diagnoses Not on filedocumented in this encounter Care Teams Personnel Security Specialist Relationship Specialty Start Date End Date Mable Flynn MD PCP - General Internal Medicine 03/27/17 10/23/21 Ayala Patton MD [address] [place] [address] PCP - General Internal Medicine 10/24/21 03/20/23 Darrius Cross MD [address] [place] [phone] PCP - General Internal Medicine 03/21/23 07/03/23 Ayala Patton MD [address] [place] [address] PCP - General Internal Medicine 07/04/23 documented as of this encounter
--- OUTSIDE RECORDS SUMMARY | 2024-12-03 14:55 | XMS_ITS | Encounter Summary ---
Author Organization [facility] Address [address] [place] [address] Care Team Providers Care Soft Boarder Name Role Phone Mable Flynn MD Primary Care Provider Unavail able Ayala Patton MD Primary Care Provider [phone] Darrius Cross MD Primary Care Provider [phone] Ayala Patton MD Primary Care Provider [phone] Reason for Visit * Reason Onset Date Comments TEST RESULTS 07/17/2018 result notes Encounter Details Date Type Department Care Team Description 07/17/2018 Telephone Adult Medicine [address] [address] Belinda Johnson PA-C TEST RESULTS (result notes) [...] on filedocumented in this encounter Care Teams Soft Boarder Relationship Specialty Start Date End Date Mable Flynn MD PCP - General Internal Medicine 03/27/17 10/23/21 Ayala Patton MD [address] [place] [address] PCP - General Internal Medicine 10/24/21 03/20/23 Darrius Cross MD [address] [place] [phone] PCP - General Internal Medicine 03/21/23 07/03/23 Ayala Patton MD [address] [place] [phone] PCP - General Internal Medicine 07/04/23 documented as of this encounter
--- OUTSIDE RECORDS SUMMARY | 2024-12-03 14:55 | XMS_ITS | Encounter Summary ---
Author Organization [facility] Address [address] [place] [address] Care Team Providers Care Vacuum Cleaner Mechanic Name Role Phone Ayala Patton MD Primary Care Provider [phone] Reason for Visit * Reason Onset Date Comments medication problems 08/08/2024 Call From Pharmacy 08/08/2024 [facility] Encounter Details Date Type Department Care Team Description 08/08/2024 Telephone Adult Medicine [facility] [address] [place] [address] [phone] Ayala Patton MD [address] [place] [address] [phone] medication problems; Call From Pharmacy ([facility] ) Social History Tobacco Use Types Packs/Day Years [...] encounter Miscellaneous Notes * Telephone Encounter - Kaleb Evans M.A. - 08/12/2024 10:42 AM EDT PA submitted on [facility] Dx Code - K29.20 acute gastritis Running a PA it comes back as drug is covered by plan. Pharmacy might have to call and coordinate with the insurance company for a paid claim. * Telephone Encounter - Ayala Patton MD - 08/12/2024 10:18 AM EDT She is already on protonix, needs sucralfate as well; please send in for PA for generic sucralfate * Telephone Encounter - Whitney Contreras - 08/12/2024 10:07 AM EDT Alternative: Omeprazole Please review, thank you. * Telephone Encounter - Tylor Jiang - 08/08/2024 3:00 PM EDT Who is calling? A pharmacist: Pharmacy: [facility] Pharmacist Name: [facility] Name of the medication Carafate 1 GM/10ML suspension What is the specific problem or interaction? Kamilah states this medication is on back order at [facility] and has been for a while and due to this is requesting the pcp to either put a prior authorization in for the generic version of this medication or send an alternate medication script . If the patient is having a problem with taking the med - how long has the problem been going on? N/A documented in this encounter Plan of Treatment Not on file documented as of this encounter Visit Diagnoses Not on filedocumented in this encounter Care Teams Vacuum Cleaner Mechanic Relationship Specialty Start Date End Date Ayala Patton MD [address] [place] [phone] PCP - General Internal Medicine 07/04/23 documented as of this encounter
--- OUTSIDE RECORDS SUMMARY | 2024-12-03 14:55 | XMS_ITS | Encounter Summary ---
Author Organization [facility] Address [address] [place] [address] Care Team Providers Care Fourth Hand Name Role Phone Ayala Patton MD Primary Care Provider [phone] Darrius Cross MD Primary Care Provider [phone] Ayala Patton MD Primary Care Provider Reason for Visit * Reason Onset Date Comments APPOINTMENT 07/27/2022 Encounter Details Date Type Department Care Team Description 07/27/2022 Telephone Adult Medicine [address] [phone] Ayala Patton MD [address] [place] [address] [phone] APPOINTMENT Social History Tobacco Use Types Packs/Day [...] on filedocumented in this encounter Care Teams Fourth Hand Relationship Specialty Start Date End Date Ayala Patton MD [address] [place] [phone] PCP - General Internal Medicine 10/24/21 03/20/23 Darrius Cross MD [address] [place] [phone] PCP - General Internal Medicine 03/21/23 07/03/23 Ayala Patton MD [address] [place] [phone] PCP - General Internal Medicine 07/04/23 documented as of this encounter
--- OUTSIDE RECORDS SUMMARY | 2024-12-03 14:55 | XMS_ITS | Encounter Summary ---
Author Organization [facility] Address [address] [place] [address] Care Team Providers Care Linux Server Administrator Name Role Phone Ayala Patton MD Primary Care Provider [phone] Darrius Cross MD Primary Care Provider [phone] Ayala Patton MD Primary Care Provider [phone] Reason for Visit * Reason Onset Date Comments refill request 03/23/2022 Encounter Details Date Type Department Care Team Description 03/23/2022 Refill Adult Medicine [address] [phone] Ayala Patton MD [address] [place] [address] [phone] refill request Social History Tobacco Use Types [...] N/A Patients current insurance carrier is: Payor: [employer] FFS / Plan: [employer] / Product Type: MEDICAID RISK documented in this encounter Plan of Treatment Not on file documented as of this encounter Visit Diagnoses Not on filedocumented in this encounter Care Teams Linux Server Administrator Relationship Specialty Start Date End Date Ayala Patton MD [address] [place] [phone] PCP - General Internal Medicine 10/24/21 03/20/23 Darrius Cross MD [address] [place] [phone] PCP - General Internal Medicine 03/21/23 07/03/23 Ayala Patton MD [address] [place] [address] PCP - General Internal Medicine 07/04/23 documented as of this encounter
--- OUTSIDE RECORDS SUMMARY | 2024-12-03 14:55 | XMS_ITS | Encounter Summary ---
Author Organization [facility] Address [address] [place] [address] Care Team Providers Care Press Manager Name Role Phone Ayala Patton MD Primary Care Provider [phone] Darrius Cross MD Primary Care Provider [phone] Ayala Patton MD Primary Care Provider [phone] Encounter Details Date Type Department Care Team Description 03/15/2023 Telephone Internal Medicine - [place] [address] [facility], [address] [place] [address] Darrius Cross MD [address] [phone] Social History Tobacco Use Types [...] on filedocumented in this encounter Care Teams Press Manager Relationship Specialty Start Date End Date Ayala Patton MD [address] [place] [phone] PCP - General Internal Medicine 10/24/21 03/20/23 Darrius Cross MD [address] [place] [phone] PCP - General Internal Medicine 03/21/23 07/03/23 Ayala Patton MD [address] [place] [address] PCP - General Internal Medicine 07/04/23 documented as of this encounter
--- OUTSIDE RECORDS SUMMARY | 2024-12-03 14:55 | XMS_ITS | Encounter Summary ---
Author Organization [facility] Address [address] [place] [address] Care Team Providers Care Parts Clerk Name Role Phone Ayala Patton MD Primary Care Provider [phone] Encounter Details Date Type Department Care Team Description 07/04/2024 Hospital Medical Records [address] [place] [address] [facility] Social History Tobacco Use Types Packs/Day [...] on filedocumented in this encounter Care Teams Parts Clerk Relationship Specialty Start Date End Date Ayala Patton MD [address] [place] [address] [phone] PCP - General Internal Medicine 07/04/23 documented as of this encounter
--- OUTSIDE RECORDS SUMMARY | 2024-12-03 14:55 | XMS_ITS | Encounter Summary ---
Author Organization [facility] Address [address] [place] [address] Care Team Providers Care Terrazzo Helper Name Role Phone Mable Flynn MD Primary Care Provider Unavail able Ayala Patton MD Primary Care Provider [phone] Darrius Cross MD Primary Care Provider [phone] Ayala Patton MD Primary Care Provider [phone] Reason for Visit * Reason Onset Date Comments Appointment-Internal Referral 10/07/2018 Encounter Details Date Type Department Care Team Description 10/07/2018 Telephone [facility] [address] [place] [phone] Mable Flynn MD Appointment-Internal Referral Social History Tobacco Use Types Packs/Day Years [...] encounter Miscellaneous Notes * Telephone Encounter - Minnie Garcia NP - 10/07/2018 10:36 AM EST Noted. Letter sent also. * Telephone Encounter - Eugenia Tarango - 10/07/2018 9:08 AM EST All attempts have been exhausted to reach the patient to schedule a consultation in the [facility] Pharmacy Department documented in this encounter Plan of Treatment Not on file documented as of this encounter Visit Diagnoses Not on filedocumented in this encounter Care Teams Terrazzo Helper Relationship Specialty Start Date End Date Mable Flynn MD PCP - General Internal Medicine 03/27/17 10/23/21 Ayala Patton MD [address] [place] [address] [phone] PCP - General Internal Medicine 10/24/21 03/20/23 Darrius Cross MD [address] [place] [phone] PCP - General Internal Medicine 03/21/23 07/03/23 Ayala Patton MD [address] [place] [address] [phone] PCP - General Internal Medicine 07/04/23 documented as of this encounter
--- OUTSIDE RECORDS SUMMARY | 2024-12-03 14:55 | XMS_ITS | Encounter Summary ---
Author Organization [facility] Address [address] [place] [address] Care Team Providers Care Acquisitions Librarian Name Role Phone Mable Flynn MD Primary Care Provider Unavail able Ayala Patton MD Primary Care Provider Darrius Cross MD Primary Care Provider [phone] Ayala Patton MD Primary Care Provider [phone] Encounter Details Date Type Department Care Team Description 01/20/2019 Telephone Adult [address] [address] Mable Flynn MD Social History Tobacco Use [...] encounter Miscellaneous Notes * Telephone Encounter - Torres White - 01/22/2019 12:48 PM EDT Message received from [employer] Picker regarding patient being concerned about test results-- attempted to call patient-- message left at number listed. * Telephone Encounter - Randi Garcia - 01/21/2019 1:31 PM EDT Noted thank you * Telephone Encounter - Shayy Worrell R.N. - 01/21/2019 1:07 PM EDT Pt is upset that this place is so casual about test results , she got a result of a positive testing for hep C and no further information . She had to wait 3 weeks and has been calling constantly and no one has had the courtesy to get back to her, she discussed this with pt services and is upsetthat I am jut calling her now. She ended the call * Telephone Encounter - Stephany Ramirez - 01/21/2019 9:02 AM EDT Patient is returning triage phone call. Please call her at [phone] . * Telephone Encounter - Shayy Worrell R.N. - 01/21/2019 8:58 AM EDT I left a message for the patient to return my call. * Telephone Encounter - Ramonita Callejas - 01/21/2019 8:50 AM EDT Patient is returning triage phone call. Please call her at [phone] . * Telephone Encounter - Shayy Worrell R.N. - 01/21/2019 8:34 AM EDT I left a message for the patient to return my call. Messages left at home and work * Telephone Encounter - Shayy Worrell R.N. - 01/20/2019 10:04 AM EDT Message left for jackelyn at work number , will speak to her when she calls back She is requesting test reaultd Patient Result Comments Entered by Belinda Johnson PA-C at 01/15/2019 12:03 PM Your follow-up hepatitis C testing has returned back negative showing that there is no evidence of any reinfection. If you have any questions please contact my office. documented in this encounter Plan of Treatment Not on file documented as of this encounter Visit Diagnoses Not on filedocumented in this encounter Care Teams Acquisitions Librarian Relationship Specialty Start Date End Date Mable Flynn MD PCP - General Internal Medicine 03/27/17 10/23/21 Ayala Patton MD [address] [place] [address] [phone] PCP - General Internal Medicine 10/24/21 03/20/23 Darrius Cross MD [address] [place] [phone] PCP - General Internal Medicine 03/21/23 07/03/23 Ayala Patton MD [address] [place] [address] [phone] PCP - General Internal Medicine 07/04/23 documented as of this encounter
--- OUTSIDE RECORDS SUMMARY | 2024-12-03 14:55 | XMS_ITS | Encounter Summary ---
Author Organization [facility] Address [address] [place] [address] Care Team Providers Care Locker Operator Name Role Phone Ayala Patton MD Primary Care Provider Darrius Cross MD Primary Care Provider [phone] Ayala Patton MD Primary Care Provider [phone] Encounter Details Date Type Department Care Team Description 11/09/2022 Rn Ortho Report Medical Records [address] [place] [phone] Lilliana Sheets MD Social History Tobacco Use [...] on filedocumented in this encounter Care Teams Locker Operator Relationship Specialty Start Date End Date Ayala Patton MD [address] [place] [address] [phone] PCP - General Internal Medicine 10/24/21 03/20/23 Darrius Cross MD [address] [facility] [address] [place] [phone] PCP - General Internal Medicine 03/21/23 07/03/23 Ayala Patton MD [address] [place] [phone] PCP - General Internal Medicine 07/04/23 documented as of this encounter
--- OUTSIDE RECORDS SUMMARY | 2024-12-03 14:55 | XMS_ITS | Encounter Summary ---
Author Organization [facility] Address [address] [place] [address] Care Team Providers Care Scheduling Agent Name Role Phone Mable Flynn MD Primary Care Provider Unavail able Ayala Patton MD Primary Care Provider Darrius Cross MD Primary Care Provider [phone] Ayala Patton MD Primary Care Provider [phone] Reason for Visit * Reason Onset Date Comments TEST RESULTS 07/10/2018 result notes Encounter Details Date Type Department Care Team Description 07/10/2018 Telephone Adult Medicine [address] [address] Belinda Johnson PA-C TEST RESULTS (result notes) [...] Telephone Encounter - Jonn Mason M.A. - 07/10/2018 4:31 PM EDT Left message for patient to return call, ext [phone]. There are no antibiotics needed as her urine sample did not grow any infection. documented in this encounter Plan of Treatment Not on file documented as of this encounter Visit Diagnoses Not on filedocumented in this encounter Care Teams Scheduling Agent Relationship Specialty Start Date End Date Mable Flynn MD PCP - General Internal Medicine 03/27/17 10/23/21 Ayala Patton MD [address] [place] [address] [phone] PCP - General Internal Medicine 10/24/21 03/20/23 Darrius Cross MD [address] [place] [phone] PCP - General Internal Medicine 03/21/23 07/03/23 Ayala Patton MD [address] [place] [address] [phone] PCP - General Internal Medicine 07/04/23 documented as of this encounter
--- OUTSIDE RECORDS SUMMARY | 2024-12-03 14:55 | XMS_ITS | Encounter Summary ---
Author Organization [facility] Address [address] [place] [address] Care Team Providers Care Configuration Management Architect Name Role Phone Ayala Patton MD Primary Care Provider [phone] Reason for Visit * Reason Onset Date Comments medication problems 08/07/2024 Encounter Details Date Type Department Care Team Description 08/07/2024 Telephone Adult Medicine [facility] [address] [place] [address] [phone] Ayala Patton MD [address] [place] [address] [phone] medication problems Social History Tobacco Use Types Packs/Day Years [...] encounter Miscellaneous Notes * Telephone Encounter - Berna Olson - 08/07/2024 3:18 PM EDT Pharmacy called sucralfate 10ml qid 1200ml 5 refills * Telephone Encounter - Ayala Patton MD - 08/07/2024 3:09 PM EDT Ok to substitute * Telephone Encounter - Berna Olson - 08/07/2024 2:47 PM EDT Pharmacy called substitute Is Sucralfate Please advise * Telephone Encounter - Liudmila Britton - 08/07/2024 2:36 PM EDT Who is calling? [facility] via fax Name of the medication Carafate 1 GM/10ML suspension What is the specific problem or interaction? Brand name discontinued and not available, please substitute for generic or change therapy If the patient is having a problem with taking the med - how long has the problem been going on? N/A documented in this encounter Plan of Treatment Not on file documented as of this encounter Visit Diagnoses Not on filedocumented in this encounter Care Teams Configuration Management Architect Relationship Specialty Start Date End Date Ayala Patton MD [address] [place] [phone] PCP - General Internal Medicine 07/04/23 documented as of this encounter
--- OUTSIDE RECORDS SUMMARY | 2024-12-03 14:55 | XMS_ITS | Encounter Summary ---
Author Organization [facility] Address [address] [place] [address] Care Team Providers Care Advertising Intern Name Role Phone Ayala Patton MD Primary Care Provider [phone] Darrius Cross MD Primary Care Provider [phone] Ayala Patton MD Primary Care Provider [phone] Reason for Visit * Reason Comments E-prescribe Rx Request Encounter Details Date Type Department Care Team Description 04/24/2022 Refill Adult Medicine [address] [address] Laura Nj PA-C [address] [place] [address] [phone] E-prescribe Rx Request Social History Tobacco Use [...] encounter Miscellaneous Notes * Telephone Encounter - Laura Nj PA-C - 04/24/2022 12:18 PM EDT Needs 8-hour fasting labs prior to appt. Please advise patient. Laura Nj PA-C * Telephone Encounter - Carito Olson - 04/24/2022 10:52 AM EDT Hernandez 01/27/22 Ov 05/05/22 Lab Results Component Value Date NA 140 03/17/2021 K 3.7 03/17/2021 CO2 27 03/17/2021 CL 104 03/17/2021 BUN 11 03/17/2021 CREAT 0.58 03/17/2021 GLU 96 03/17/2021 CA 10.0 03/17/2021 GFR > 60 03/17/2021 * Telephone Encounter - Maria Alejandra Quinteros - 04/24/2022 9:19 AM EDT Patient would like script to be: E-PRESCRIBED/FAXED TO PHARMACY WHEN WAS THE PATIENT'S LAST APPOINTMENT IN ADULT MEDICINE? 01/27/22 WHEN WAS THE LAST TIME THE PATIENT SAW THEIR PCP? 11/28/21 Does patient have an upcoming appointment? Yes 05/05/22 (THE MEDICATION REQUESTED IS ON THE MED [...] N/A Patients current insurance carrier is: Payor: [employer] FFS / Plan: CoverMyMeds / Product Type: MEDICAID RISK documented in this encounter Plan of Treatment Not on file documented as of this encounter Results * (ABNORMAL) 25 HYDROXY INCLUDES FRACTIONS IF PERFORMED (10/20/2022 2:34 PM EST) VITAMIN D, 25-HYDROXY 19(L) 30 - 80 ng/mL 10/20/2022 6:49 PM EST [facility] 10/20/2022 2:34 PM EST 10/20/2022 2:35 PM EST Narrative [facility] - 10/20/2022 6:49 PM EST Release to patient->Immediate Laura Nj PA-C LAB [facility] * (ABNORMAL) LIPID PROFILE (10/20/2022 2:34 PM EST) Pathologist [facility] Cholesterol 217(H) 0 - 200 mg/dL 10/20/2022 6:41 PM EST [facility] TRIGLYCERIDES 127 0 - 150 mg/dL 10/20/2022 6:41 PM EST [facility] HDL CHOLESTEROL 69 >40 mg/dL 6:44 PM EST [facility] LDL CALCULATED 123(H) 0 - 100 mg/dL 10/20/2022 6:44 PM EST [facility] TC-HDLC RATIO 3.1 0 - 4.4 mg/dL 10/20/2022 6:44 PM EST [facility] 10/20/2022 2:34 PM EST 10/20/2022 2:35 PM EST Narrative [facility] - 10/20/2022 6:44 PM EST Release to patient->Immediate Laura Nj PA-C LAB [facility] * (ABNORMAL) CBC (AUTO DIFF PLATELET) (10/20/2022 2:34 PM EST) Pathologist [facility] WHITE BLOOD COUNT 5.8 4.8 - 10.8 x10-3/uL 10/20/2022 6:26 PM EST [facility] RED BLOOD COUNT 3.0(L) 3.8 - 4.8 x10-6/uL 10/20/2022 6:26 PM EST [facility] Hemoglobin 10.7(L) 11.5 - 16.0 g/dL 10/20/2022 6:26 PM EST [facility] Hematocrit 33.4(L) 35 - 47 % 10/20/2022 6:26 PM EST [facility] MEAN CORPUSCULAR VOLUME 112.1(H) 79 - 98 fL 10/20/2022 6:26 PM EST [facility] MEAN CORPUSCULAR HEMOGLOBIN 35.9(H) 27 - 32 pg 10/20/2022 6:26 PM EST [facility] MEAN CORPUSCULAR HGB CONC 32.0 32 - 37 g/dL 10/20/2022 6:26 PM EST [facility] RED CELL DISTRIBUTION WIDTH 16.5(H) 11 - 15 % 10/20/2022 6:26 PM EST [facility] PLT COUNT 184 130 - 400 x10-3/uL 10/20/2022 6:26 PM EST [facility] MEAN PLATELET VOLUME 10.3 7 - 11 fL 10/20/2022 6:26 PM EST [facility] NRBC % AUTO 0.5 <1 % 10/20/2022 6:26 PM EST [facility] NEUTROPHILS % 61.5 % 10/20/2022 6:26 PM EST [facility] LYMPH % 27.2 % 10/20/2022 6:26 PM EST [facility] MONO % 8.7 % 10/20/2022 6:26 PM EST [facility] EOS % 1.0 % 10/20/2022 6:26 PM EST [facility] BASO % 0.7 % 10/20/2022 6:26 PM EST [facility] IMMATURE GRANULOCYTES % 0.9 % 10/20/2022 6:26 PM EST [facility] NRBC # AUTO 0.03 <0.1 x10-3/uL 10/20/2022 6:26 PM EST [facility] NEUT # 3.55 1.5 - 7.0 x10-3/uL 10/20/2022 6:26 PM EST [facility] LYMPH # 1.57 1 - 5.0 x10-3/uL 10/20/2022 6:26 PM EST [facility] MONO # 0.50 0.2 - 1.0 x10-3/uL 10/20/2022 6:26 PM EST [facility] EOS # 0.06 0 - 0.5 x10-3/uL 10/20/2022 6:26 PM EST [facility] BASO # 0.04 0 - 0.2 x10-3/uL 10/20/2022 6:26 PM EST [facility] IMMATURE GRANULOCYTES # 0.05(H) 0 - 0.03 x10-3/uL 10/20/2022 6:26 PM EST [facility] 10/20/2022 2:34 PM EST 10/20/2022 2:35 PM EST Narrative [facility] - 10/20/2022 6:26 PM EST Release to patient->Immediate Laura Nj PA-C LAB [facility] * (ABNORMAL) COMPREHENSIVE METABOLIC PANEL (10/20/2022 2:34 PM EST) Pathologist [facility] GLUCOSE 94 70 - 100 mg/dL 10/20/2022 6:41 PM EST [facility] Comment:Reference range appl icable to fasting specimens only Blood Urea Nitrogen 19 5 - 25 mg/dL 10/20/2022 6:41 PM EST [facility] CREAT 0.69 0.5 - 1.1 mg/dL 10/20/2022 6:41 PM EST [facility] GLOMERULAR FILTRATION RATE 107 >60 10/20/2022 6:41 PM EST [facility] Comment: This eGFR result was calculated using the CKD-EPI 2020 Creatinine Equation NA 142 135 - 145 mEq/L 10/20/2022 6:41 PM EST [facility] K 3.6 3.5 - 5.5 mmol/L 10/20/2022 6:41 PM EST [facility] CL 104 96 - 110 mmol/L 10/20/2022 6:41 PM EST [facility] CARBON DIOXIDE (CO2) 33(H) 21 - 32 mmol/L 10/20/2022 6:41 PM EST [facility] ANION GAP 5 3 - 11 10/20/2022 6:41 PM EST [facility] CALCIUM 9.0 8.5 - 10.5 mg/dL 10/20/2022 6:41 PM EST [facility] TOTAL PROTEIN (TP) 5.8(L) 6.0 - 8.0 G/dL 10/20/2022 6:41 PM EST [facility] Albumin 3.1(L) 3.2 - 5.0 G/dL 10/20/2022 6:41 PM EST [facility] BILIRUBIN TOTAL 0.4 0.0 - 1.4 mg/dL 10/20/2022 6:41 PM EST [facility] SGOT 60(H) 10 - 42 U/L 10/20/2022 6:41 PM EST [facility] SGPT 61(H) 10 - 60 U/L 10/20/2022 6:41 PM EST [facility] ALK PHOS 124(H) 42 - 121 U/L 10/20/2022 6:44 PM EST [facility] 10/20/2022 2:34 PM EST 10/20/2022 2:35 PM EST Narrative [facility] - 10/20/2022 6:44 PM EST Release to patient->Immediate Laura Nj PA-C LAB [facility] documented in this encounter Visit Diagnoses Diagnosis Primary hypertension- Primary Unspecified essential hypertension Mixed hyperlipidemia Vitamin D deficiency Unspecified vitamin D deficiency Alcohol dependence with unspecified alcohol-induced disorder (HCC) Primary hypertension Unspecified essential hypertension Alcohol dependence with unspecified alcohol-induced disorder (HCC) Vitamin D deficiency Unspecified vitamin D deficiency Mixed hyperlipidemia Cigarette smoker Tobacco use disorder Upper respiratory tract infection, unspecified type Diarrhea, unspecified type Alcoholic ketoacidosis Acidosis Alcohol withdrawal syndrome without complication (HCC) Hypomagnesemia Disorders of magnesium metabolism documented in this encounter Care Teams Advertising Intern Relationship Specialty Start Date End Date Ayala Patton MD [address] [place] [address] PCP - General Internal Medicine 10/24/21 03/20/23 Darrius Cross MD [address] [place] [phone] PCP - General Internal Medicine 03/21/23 07/03/23 Ayala Patton MD [address] [place] [phone] PCP - General Internal Medicine 07/04/23 documented as of this encounter
--- OUTSIDE RECORDS SUMMARY | 2024-12-03 14:55 | XMS_ITS | Encounter Summary ---
Author Organization [facility] Address [address] [place] [address] Care Team Providers Care Interior Design Director Name Role Phone Ayala Patton MD Primary Care Provider [phone] Darrius Cross MD Primary Care Provider [phone] Ayala Patton MD Primary Care Provider [phone] Encounter Details Date Type Department Care Team Description 01/23/2023 Hospital Medical Records [address] [place] [id number] Rakan Villalba MD Social History Tobacco Use [...] on filedocumented in this encounter Care Teams Interior Design Director Relationship Specialty Start Date End Date Ayala Patton MD [address] [place] [address] [phone] PCP - General Internal Medicine 10/24/21 03/20/23 Darrius Cross MD [address] [place] [phone] PCP - General Internal Medicine 03/21/23 07/03/23 Ayala Patton MD [address] [place] [phone] PCP - General Internal Medicine 07/04/23 documented as of this encounter
--- OUTSIDE RECORDS SUMMARY | 2024-12-03 14:55 | XMS_ITS | Clinical Summary ---
Author Organization [facility] Address [address] [place] [address] Care Team Providers Care Rn Case Mgr Name Role Phone Ayala Patton MD Primary Care Provider [phone] Allergies No known active allergies Medications Medication [...] 2 times daily. 0 12/19/2023 Active Pancrelipase, Lrn-Ntil-Yenl, 8171-0879 units CAPSULE ENTERIC COATED PARTICLES Take 1 [...] viral load Followed by Dr. Sheets @ [facility] GI Tobacco use 01/04/2017 GERD [...] 01/04/2017 2017 Depression 01/04/2017 08/13/2017 Anxiety 04/26/2018 Immunizations Name Administration Dates Next Due COVID-19 [...] Date Last Done Comments MAMMOGRAM 04/06/2022 04/06/2021, 06/0 06/2021 (External Completion), 05/17/2018 (External Completion), Additional history exists CERVICAL CANCER SCREENING 12/16/20222021, 08/16/2018, 11/16/2016 (External Completion), Additional history exists BASELINE HEALTH EXAM 40-64 03/17/202303/17, 03/14/2021, 03/14/2021 (Completed), Additional history exists SHINGLES VACCINE (1 of 2) 2024 Covid-19 Vaccine (2022-2 4 season) 2024 10/27/2021, 10/27/2021, 03/22/2021, Additional history exists DEPRESSION SCREENING/FOLLOWUP 10/29/2024, 07/10/2024, 05/16/2024, Additional history exists SOCIAL NEEDS SCREENING 10/29/2024 1, 11/24/2019 (Completed) COLON CANCER SCREENING 01/30/2025 3 (External Completion) TOBACCO CHECK/ADVISE 07/25/2026 07/25/2024, 07/10/2024, 07/07/2024, Additional history exists CHOLESTEROL SCREENING 10/20/2027 10/20/2022 , 03/17/2021, 03/08/2018, Additional history exists DTAP/TDAP/TD (3 - Td or Tdap) 03/08/2028, 03/08/2018, 06/26/2008 PNEUMOCOCCAL VACCINE FOR HIG H RISK PATIENTS (#1) 2039 08/04/2011 INFLUENZA Completed 07/10/2024, 07/30, 08/21/2023, Additional history exists Care Teams Rn Case Mgr Relationship Specialty Start Date End Date Ayala Patton MD [address] [place] [phone] PCP - General Internal Medicine 07/04/23
--- OUTSIDE RECORDS SUMMARY | 2024-12-03 14:55 | XMS_ITS | Encounter Summary ---
Author Organization [facility] Address [address] [place] [address] Care Team Providers Care Steam Clothes Press Operator Name Role Phone Ayala Patton MD Primary Care Provider [phone] Darrius Cross MD Primary Care Provider [phone] Ayala Patton MD Primary Care Provider [phone] Encounter Details Date Type Department Care Team Description 10/16/2022 Hospital Medical Records [address] [place] [phone] [facility] Social History [...] suspected to have Coronavirus/COVID-19? No / Unsure 10/09/2022 1:36 PM EST documented as of this encounter Plan of Treatment Not on file documented as of this encounter Visit Diagnoses Not on filedocumented in this encounter Care Teams Steam Clothes Press Operator Relationship Specialty Start Date End Date Ayala Patton MD [address] [place] [phone] PCP - General Internal Medicine 10/24/21 03/20/23 Darrius Cross MD [address] [place] [address] [address] [place] [phone] PCP - General Internal Medicine 03/21/23 07/03/23 Ayala Patton MD [address] [place] [id number] PCP - General Internal Medicine 07/04/23 documented as of this encounter
--- OUTSIDE RECORDS SUMMARY | 2024-12-03 14:55 | XMS_ITS | Encounter Summary ---
Author Organization [facility] Address [address] [place] [address] Care Team Providers Care Bandage Maker Name Role Phone Ayala Patton MD Primary Care Provider [phone] Reason for Visit * Reason Onset Date Comments APPOINTMENT 06/16/2024 Encounter Details Date Type Department Care Team Description 06/16/2024 Telephone Adult Medicine [facility] [address] [place] [address] [phone] Ayala Patton MD [address] [place] [address] [phone] APPOINTMENT Social History Tobacco Use Types Packs/Day [...] encounter Miscellaneous Notes * Telephone Encounter - Hansel Reis - 06/16/2024 2:46 PM EDT Hi, I'm the paper rewinder who is working with this patient. She was admitted at [facility] from 06/07-06/12 - Dx's: Noninfective gastroenteritis/Colitis, Alcohol dependence and Enterocolitis due to Clostridium Difficile. Can you reach out to her to schedule a hospital discharge follow up appointment? She can be reached at [phone]. Thanks documented in this encounter Plan of Treatment Not on file documented as of this encounter Visit Diagnoses Not on filedocumented in this encounter Care Teams Bandage Maker Relationship Specialty Start Date End Date Ayala Patton MD [address] [place] [phone] PCP - General Internal Medicine 07/04/23 documented as of this encounter
--- OUTSIDE RECORDS SUMMARY | 2024-12-03 14:55 | XMS_ITS | Encounter Summary ---
Author Organization [facility] Address [address] [place] [address] Care Team Providers Care Icebox Man Name Role Phone Mable Flynn MD Primary Care Provider Unavail able Ayala Patton MD Primary Care Provider [phone] Darrius Cross MD Primary Care Provider [phone] Ayala Patton MD Primary Care Provider [phone] Encounter Details Date Type Department Care Team Description 08/28/2018 Drawer In [facility]oom Report Medical Records [address] [place] [phone] Steve Fontaine MD Social History Tobacco Use [...] on filedocumented in this encounter Care Teams Icebox Man Relationship Specialty Start Date End Date Mable Flynn MD PCP - General Internal Medicine 03/27/17 10/23/21 Ayala Patton MD [address] [place] [address] [phone] PCP - General Internal Medicine 10/24/21 03/20/23 Darrius Cross MD [address] [place] [address] [place] [phone] PCP - General Internal Medicine 03/21/23 07/03/23 Ayala Patton MD [address] [place] [phone] PCP - General Internal Medicine 07/04/23 documented as of this encounter
== END 2024-12-03 13:30 | disposition home or self-care (01) ==
LOC: HO.LAB 13:29
PROVIDERS: PCP Internal Medicine; Visit Provider Nurse Practitioner Acute Care
DX: E87.6 Hypokalemia (principal); E83.42 Hypomagnesemia; E83.39 Other disorders of phosphorus metabolism
CPT/HCPCS: 36415; 80048; 83735; 84100

== ENCOUNTER 2025-01-25 15:16 | Inpatient (IN) | payer OTHER, SELFPAY ==
[2025-01-25] VITALS (9 sets, daily range): BP systolic 108–184; BP diastolic 57–96; PULSE 70–109; RESP 12–20; TEMP 36.6–36.9; O2SAT 92–99; BMI 18.2
--- NOTE | 2025-01-25 | ECG_ITS ---
Test Reason : CHEST PAIN Blood Pressure : */* mmHG Vent. Rate : 98 BPM Atrial Rate : 98 BPM P-R Int : 188 ms QRS Dur : 96 ms QT Int : 306 ms P-R-T Axes : 73 39 183 degrees QTcB Int : 390 ms Artifact in tracing Sinus rhythm with sinus arrhythmia with frequent Premature ventricular complexes Left ventricular hypertrophy with repolarization abnormality ( Russell product ) Abnormal ECG When compared with ECG of 20-Nov-2024 23:35, Premature ventricular complexes are now Present ST now depressed in Inferior leads ST now depressed in Lateral leads T wave inversion now evident in Inferior leads Nonspecific T wave abnormality now evident in Lateral leads QT has shortened Referred By: Generic ED Physician Electronically Signed By: MIKA JENNINGS
--- NOTE | 2025-01-25 15:25 | ED.GENADULT ---
HPI - General Adult General Chief complaint: Nausea/Vomiting/Diarrhea Stated complaint: Pain in breast bone, vomiting and diarrhea Time Seen by Provider: 01/25/25 15:56 History of Present Illness ED Provider: Gray GALDAMEZ narrative: the patient is a 49-year-old woman with a history of alcoholism. She says that she has been feeling very bad over the last 2 days with upper abdominal discomfort, nausea, and diarrhea. She says that she has felt somewhat unwell for a few weeks with decreased oral intake but acutely unwell over the last 48 hours. She says that she normally drinks 4 or 5 shots of vodka per day. She was feeling to unwell today to drink anything. Her last alcohol was last night. She also uses marijuana 3 or 4 times a day. She denies any IV drug use. She does not know if she has had a fever. She says that anything she eats goes right through me. . Related Data Home Medications ?Medication ?Instructions ?Recorded ?Confirmed cholecalciferol (vitamin D3) 50 50 mcg PO DAILY 11/01/23 11/21/24 mcg (2,000 unit) tablet folic acid 1 mg tablet 1 mg PO DAILY 11/01/23 11/21/24 pantoprazole 40 mg tablet,delayed 40 mg PO DAILY@0630 11/01/23 11/21/24 release clonidine HCl 0.1 mg tablet 0.1 mg PO TID PRN Anxiety 12/10/23 11/21/24 citalopram 40 mg tablet 40 mg PO DAILY 02/26/24 11/21/24 thiamine HCl (vitamin B1) 100 mg 100 mg PO DAILY 09/26/24 11/21/24 tablet trazodone 100 mg tablet 100 mg PO BEDTIME PRN insomnia 10/27/24 11/21/24 bupropion HCl 150 mg 24 hr tablet, 150 mg PO DAILY 11/21/24 11/21/24 extended release Previous Rx's ?Medication ?Instructions ?Recorded amlodipine 5 mg tablet 5 mg PO DAILY #90 tabs 06/11/24 naltrexone 50 mg tablet 50 mg PO DAILY #90 tabs 10/07/24 magnesium oxide 400 mg PO BID #60 tabs 11/25/24 vancomycin 125 mg capsule 125 mg PO Q6H #24 caps 11/25/24 Allergies Allergy/AdvReac Type Severity Reaction Status Date / Time No Known Allergies Allergy Verified 01/25/25 15:30 Review of Systems Review of Systems: Yes all other systems are reviewed and are negative [facility] Past Medical History Medical History Alcohol use disorder, severe, dependence Clostridium difficile colitis Hypertension Alcohol use disorder Pancreatic insufficiency Gastroesophageal reflux disease Essential hypertension Mood disorder Cannabis use disorder Hepatitis C Tobacco use disorder Surgical History H/O colonoscopy (~01/2023) Social History Social History Household Members: Children Household Members Other:: Adult son Housing: House Do you presently have visiting nurse or other home services: No Alcohol intake: current Alcohol intake frequency: 3 or more drinks per day Alcohol type: hard liquor Comment: Pt refusing alarms, steady gait Patient Tobacco Use Status: Tobacco use Unknown Tobacco use type: Cigarette Cigarette Packs Per Day: 0.5 Cigarettes Per Day: 10.0 e-Cigarette/Vaping Use: Never Used Second Hand Smoke Exposure: No Use of substances other than those prescribed or required for medical reasons: Refusing to respond Substance Use Type: Crack/Cocaine and Marijuana Advance Directives: Yes Advance Directives on File: Yes Advance Directives Date on File: 12/10/23 Do you have a plan to hurt others: No Plan Nutrition Risks: Acute nausea or vomiting x1 week Patient : No service: No Physical Exam ED Vital Signs: Vital Signs - 24 hr 01/25/25 15:27 01/25/25 16:58 01/25/25 17:08 Temperature 97.8 F Pulse Rate 109 H 95 Respiratory Rate 18 16 Blood Pressure 147/96 H 184/79 H Pulse Oximetry 98 95 Oxygen Delivery Method Room Air BMI result Body Mass Index 18.2 Const Other: The patient is a chronically ill-appearing 49-year-old woman who looks older than her age. She looks as though she does not feel very well but she does not seem acutely toxic. HENMT Other: Face is symmetrical. Mucous membranes moist. Eyes General: appearance normal, both eyes and all related structures Conjunctivae: conjunctivae normal Sclerae: sclerae normal Pupils: Equal, round and reactive pupils present EOM: EOMs intact bilaterally Neck Neck: Yes normal visual inspection and Yes full ROM Resp Effort & Inspection: normal respiratory effort Auscultation: clear to auscultation bilaterally Cardio Rate: regular rate Rhythm: regular rhythm Heart sounds: S1 normal heart sound present and S2 normal heart sound present GI Other: The abdomen is flat and soft. There is tenderness in the epigastrium. Skin Other: Skin is dry and unremarkable. Neuro Other: The patient is awake and alert. She seems tired but has a normal mental status. Cranial nerves are grossly intact. She moves her extremities symmetrically. Cranial nerves: Yes Equal, round and reactive pupils present Extrem Other: No peripheral edema. Course Course Course Narrative: This is an RME performed by Harry Noriega CNP: Additional HPI, ROS, PE not included below will be deferred to primary provider. patient is a 49-year-old female who presents emergency department for evaluation. She states she has been experiencing a diarrheal illness and appetite. Generalized abdominal pain now radiating into her chest as well as the back. ETOH use, last consumed 21:00 yesterday Plan: Serum labs, EKG, viral serologies, CIWA Medications Administered Generic Name Dose Route Start Last Admin Trade Name Freq PRN Reason Stop Dose Admin Enoxaparin Sodium 40 mg 01/25/25 18:00 01/25/25 17:51 Enoxaparin Sodium 40 Mg/0.4 Ml Syringe SUBCUT 40 mg Q24H SAMANTHA Administration Lactated Ringer's 1,000 mls @ 150 mls/hr 01/25/25 17:30 01/25/25 18:48 Lr IVCONT 150 mls/hr .Q6H40M SAMANTHA Administration Potassium Chloride 10 meq in 100 mls @ 100 mls/hr 01/25/25 17:30 01/25/25 18:59 Potassium Chloride/H20 IV 01/25/25 21:29 100 mls/hr Q1H SAMANTHA Administration Thiamine HCl 100 mg/ Sodium 101 mls @ 202 mls/hr 01/25/25 17:30 01/25/25 18:42 Chloride IV Infused DAILY SAMANTHA Infusion Folic Acid 1 mg/ Sodium 50.2 mls @ 100.4 mls/hr 01/25/25 19:00 01/25/25 19:19 Chloride IV Infused DAILY SAMANTHA Infusion Discontinued Medications Generic Name Dose Route Start Last Admin Trade Name Freq PRN Reason Stop Dose Admin Diphenhydramine HCl 25 mg 01/25/25 16:41 01/25/25 16:55 Diphenhydramine Hcl 50 Mg/Ml Vial IVPUSH 01/25/25 16:42 25 mg ONCE ONE Administration Magnesium Sulfate 2 gm in 50 mls @ 150 mls/hr 01/25/25 16:12 01/25/25 17:29 Magnesium Sulfate/H2o IV 01/25/25 16:31 Infused ONCE ONE Infusion Lactated Ringer's 1,000 mls @ 999 mls/hr 01/25/25 17:30 01/25/25 18:50 Lr IV 01/25/25 18:30 Infused .Q1H1M SAMANTHA Infusion Magnesium Sulfate 2 gm in 50 mls @ 25 mls/hr 01/25/25 17:24 01/25/25 17:47 Magnesium Sulfate/H2o IV 01/25/25 19:23 25 mls/hr ONCE ONE Administration Metoclopramide HCl 10 mg 01/25/25 16:41 01/25/25 16:54 Metoclopramide Hcl 10 Mg/2 Ml Vial IVPUSH 01/25/25 16:42 10 mg ONCE ONE Administration Morphine Sulfate 4 mg 01/25/25 16:48 01/25/25 17:19 Morphine Sulfate 4 Mg/Ml Cartridge IVPUSH 01/25/25 16:49 4 mg ONCE ONE Administration Protocol Phenobarbital Sodium 192 mg 01/25/25 18:00 01/25/25 17:47 Phenobarbital Sodium 130 Mg/Ml Im Once IM 01/25/25 18:01 192 mg ONCE ONE Administration Protocol Medical Decision Making Medical Decision Making [facility] Narrative: the patient is a 49-year-old woman with a history of alcoholism and multiple hospitalizations for complications of her alcoholism. She has also tested positive for cocaine in the past. She presents with the abdominal symptoms that has been bothering her for a few days. She is testing positive for an elevated lipase suggestive of recurrent pancreatitis. She is also hypomagnesemic and hypokalemic. Her ethanol level today is 0. Her last drink was yesterday. She says she gets significant withdrawal symptoms. She will be started on the phenobarbital protocol, she will be given IV magnesium and potassium and admitted to the hospitalist service for further care. Lab Data 01/25/25 15:42 01/25/25 15:42 Labs: Lab Results 01/25/25 Range/Units 15:42 WBC 15.1 H (4.8-10.8) X10*3/uL RBC 3.93 L (4.20-5.50) X10*6/uL Hgb 13.5 (12.0-16.0) g/dl Hct 36.6 L (37.0-47.0) % MCV 93.1 (80.0-98.0) fL MCH 34.4 H (27.0-33.0) pg MCHC 36.9 H (31.0-35.0) g/dl RDW 14.3 (11.0-16.0) % Plt Count 283 D (160-400) X10*3/uL MPV 9.9 (9.4-12.3) fL Immature Gran % (Auto) 0.3 (0.0-0.4) % Neut % (Auto) 82.0 H (45-73) % Lymph % (Auto) 12.7 L (20-40) % Kidder % (Auto) 4.5 (2-11) % Eos % (Auto) 0.1 (0-4) % Baso % (Auto) 0.4 (0-2) % Lymph # (Auto) 1.9 (1.2-4.9) X10*3/uL Kidder # (Auto) 0.7 (0.1-1.2) X10*3/uL Eos # (Auto) 0.0 (0.0-0.4) X10*3/uL Baso # (Auto) 0.1 (0.0-0.2) X10*3/uL Abs Immat Gran (auto) 0.05 H (0.00-0.03) X10*3/uL Absolute Neuts (auto) 12.4 H (2.0-8.3) x10*3/uL Absolute Nucleated RBC 0.000 (0.0-0.012) X10*3/uL Nucleated RBC % (auto) 0.0 (0.0-0.2) /100WBC Sodium 145 (135-145) mmol/L Potassium 2.4 L* D (3.3-5.1) mmol/L Chloride 103 (96-108) mmol/L Carbon Dioxide 24 (22-29) mmol/L Anion Gap 20 (12-20) BUN 6 L (9-16) mg/dL Creatinine 0.61 (0.5-1.4) mg/dL Estim Creat Clear Calc 83.7 Estimated GFR > 60 Random Glucose 157 H (60-115) mg/dL Calcium 8.9 (8.4-10.2) mg/dL Magnesium 0.9 L* (1.6-2.6) mg/dL Total Bilirubin 0.7 (0.0-1.0) mg/dL AST 62 H (5-31) U/L ALT < 6 (0-31) U/L Alkaline Phosphatase 179 H (39-117) U/L Troponin I High Sens 4.2 D (<3.5-17.0) ng/L C-Reactive Protein 0.14 (< or = 0.50) mg/dL Total Protein 6.6 (6.5-8.0) g/dL Albumin 3.7 (3.5-5.0) g/dL Lipase 440 H (8-78) U/L Ethyl Alcohol < 10 mg/dL Influenza Type A (PCR) NEGATIVE (Negative) Influenza Type B (PCR) NEGATIVE (Negative) RSV RNA Qual (PCR) NEGATIVE (Negative) SARS-CoV-2 RNA (RT-PCR) NEGATIVE (Negative) Discharge Plan Discharge Clinical Impression: Acute alcoholic pancreatitis, Hypomagnesemia, Alcoholism, Hypokalemia Patient Disposition: Admitted As Inpatient
[2025-01-25 15:47] LABS: MANUAL DIFF FLAG NO
[2025-01-25 15:48] LABS: Basophils Absolute Auto 0.1 X10*3/uL (0.0-0.2); Basophils Percent Auto 0.4 % (0-2); Eosinophils Percent Auto 0.1 % (0-4); Hematocrit 36.6 % (37.0-47.0); Hemoglobin 13.5 g/dl (12.0-16.0); Imm Gran Abs Auto 0.05 X10*3/uL (0.00-0.03); Imm Gran Pct Auto 0.3 % (0.0-0.4); Lymphocytes Absolute Auto 1.9 X10*3/uL (1.2-4.9); Lymphocytes Percent Auto 12.7 % (20-40); Mean Corpuscular HGB Conc 36.9 g/dl (31.0-35.0); Mean Corpuscular Hemoglobin 34.4 pg (27.0-33.0); Mean Corpuscular Volume 93.1 fL (80.0-98.0); Mean Platelet Volume 9.9 fL (9.4-12.3); Monocytes Absolute Auto 0.7 X10*3/uL (0.1-1.2); Monocytes Percent Auto 4.5 % (2-11); Neutrophils Absolute Auto 12.4 x10*3/uL (2.0-8.3); Platelet Count 283 X10*3/uL (160-400); Red Blood Count 3.93 X10*6/uL (4.20-5.50); Red Cell Distribution Width 14.3 % (11.0-16.0); White Blood Count 15.1 X10*3/uL (4.8-10.8)
[2025-01-25 16:07] LABS: Troponin-I High Sensitivity 4.2 ng/L (<3.5-17.0)
[2025-01-25 16:12] LABS: Alanine Aminotransferase < 6 U/L (0-31); Albumin Level 3.7 g/dL (3.5-5.0); Alkaline Phosphatase 179 U/L (39-117); Anion Gap 20 (12-20); Aspartate Amino Transferase 62 U/L (5-31); Bilirubin Total 0.7 mg/dL (0.0-1.0); Blood Urea Nitrogen 6 mg/dL (9-16); Calcium 8.9 mg/dL (8.4-10.2); Carbon Dioxide 24 mmol/L (22-29); Chloride 103 mmol/L (96-108); Creatinine Clr Calc Pharmacy 83.7; Estimated Glomerular Filt Rate > 60; Glucose Random 157 mg/dL (60-115); Magnesium 0.9 mg/dL (1.6-2.6); Potassium 2.4 mmol/L (3.3-5.1); Sodium 145 mmol/L (135-145); Total Protein 6.6 g/dL (6.5-8.0)
[2025-01-25 16:24] LABS: Influenza A PCR NEGATIVE (Negative); Influenza B PCR NEGATIVE (Negative); Resp Syncy Virus RNA Qual PCR NEGATIVE (Negative); SARS COV2 PCR INHOUSE NEGATIVE (Negative)
[2025-01-25 16:26] LABS: C Reactive Protein 0.14 mg/dL (< or = 0.50); Ethanol < 10 mg/dL; Lipase 440 U/L (8-78)
[2025-01-25] MEDS: Metoclopramide HCl 10 MG/2 ML VIAL IVPUSH (16:54)
[2025-01-25] MEDS: diphenhydrAMINE HCL 50 MG/ML VIAL 25 MG IVPUSH (16:55)
[2025-01-25] MEDS: Magnesium Sulfate/H2O 2 GM/50 ML PIGGYBACK IV ×2 (17:09→17:47)
[2025-01-25] MEDS: Morphine Sulfate 4 MG/ML CARTRIDGE IVPUSH (17:19)
--- NOTE | 2025-01-25 17:25 | P.HPHOSP_ITS ---
History of Present Illness Date of Service: 01/25/25 Attending physician on admission: Priyanka Martinez Chief Complaint: abd pain, n/v 49-year-old female with history of alcohol use disorder, C diff colitis, polysubstance abuse, recurrent pancreatitis, chronic hepatitis-C infection, heard, hypertension, mood disorder presents to the ED complaining of severe epigastric pain radiating around the left side associated with nausea and nonbloody vomiting x5 with decreased appetite progressively worsening over the last 2 weeks. She also states that she has had nonbloody diarrhea ongoing for weeks. Also reports feeling of incomplete bladder emptying but no dysuria or hematuria or increased frequency. No fevers or chills. No sick contacts. Denies eating any bad foods. No recent antibiotics except for the p.o. vancomycin which she completed during admission with discharge on 11/01. She reports drinking 4-5 shots on a daily basis, last drink was last night at 21:00. She does have history of severe alcohol withdrawal including withdrawal seizures. Currently reporting tremors, nausea, vomiting, reports some confusion but is oriented x3 As well as anxiety / agitation. Denies any AH/VH. She denies any other substance use. She does currently smoke 1/2 pack of cigarettes on a daily basis. On arrival, patient hypertensive to 184/79 148/64 on admission. She is afebrile. She has a leukocytosis of 15.1. Renal function baseline. Hypokalemia with potassium 2.4. Hypomagnesemia with Mag level 0.9. Otherwise electrolytes within normal limits. Total bilirubin 0.7, AST 62, ALT undetectable, alkaline phosphatase 179. Lipase elevated at 440. Ethyl alcohol level undetectable. Urine drug screen pending. CT abdomen/pelvis deferred given patient has known hx of pancreatitis and has had [address] in the last year. Given clinical picture and elevated lipase with acute alcohol withdrawal, pt will be admitted for further management. FORMERLY [facility], [facility]–1983 Medical History Alcohol use disorder, severe, dependence Clostridium difficile colitis Hypertension Alcohol use disorder Pancreatic insufficiency Gastroesophageal reflux disease Essential hypertension Mood disorder Cannabis use disorder Hepatitis C Tobacco use disorder Surgical History H/O colonoscopy (~01/2023) Social History Household Members: Children Household Members Other:: Adult son Housing: House Do you presently have visiting nurse or other home services: No Alcohol intake: current Alcohol intake frequency: 3 or more drinks per day Alcohol type: hard liquor Comment: Pt refusing alarms, steady gait Patient Tobacco Use Status: Current everyday Tobacco user Tobacco use type: Cigarette Cigarette Packs Per Day: 0.5 Cigarettes Per Day: 10.0 e-Cigarette/Vaping Use: Never Used Second Hand Smoke Exposure: No Use of substances other than those prescribed or required for medical reasons: Refusing to respond Substance Use Type: Crack/Cocaine and Marijuana Advance Directives: Yes Advance Directives on File: Yes Advance Directives Date on File: 12/10/23 Do you have a plan to hurt others: No Plan Patient : No service: No Meds Allergies Allergy/AdvReac Type Severity Reaction Status Date / Time No Known Allergies Allergy Verified 01/25/25 15:30 Active Medications: Current Medications Acetaminophen (Acetaminophen 325 Mg Tablet) 650 mg PO Q6H PRN PRN Reason: Pain, Mild 1-3,fever,headache Calcium Carbonate (Calcium Carbonate 750 Mg Tab.Chew) 750 mg PO Q4H PRN PRN Reason: Heartburn Enoxaparin Sodium (Enoxaparin Sodium 40 Mg/0.4 Ml Syringe) 40 mg SUBCUT Q24H SAMANTHA Hydromorphone HCl (Hydromorphone Hcl 1 Mg/Ml Syringe) 0.5 mg IVPUSH Q4H PRN; Protocol PRN Reason: Pain, Severe (Pain Scale 7-10) Lactated Ringer's (Lr) 1,000 mls @ 150 mls/hr IVCONT .Q6H40M SAMANTHA Lactated Ringer's (Lr) 1,000 mls @ 999 mls/hr IV .Q1H1M SAMANTHA Stop: 01/25/25 18:30 Potassium Chloride (Potassium Chloride/H20) 10 meq in 100 mls @ 100 mls/hr IV Q1H SAMANTHA Stop: 01/25/25 21:29 Magnesium Sulfate (Magnesium Sulfate/H2o) 2 gm in 50 mls @ 25 mls/hr IV ONCE ONE Stop: 01/25/25 19:23 Magnesium Hydroxide (Milk Of Magnesia 30 Ml Oral.Susp) 30 ml PO DAILY PRN PRN Reason: Constipation Melatonin (Melatonin 3 Mg Tablet) 6 mg PO BEDTIME PRN PRN Reason: Insomnia Ondansetron HCl (Ondansetron Hcl 4 Mg/2 Ml Vial) 4 mg IVPUSH Q8H PRN PRN Reason: Nausea and Vomiting Oxycodone HCl (Oxycodone Hcl Immed Release 5 Mg Tablet) 5 mg PO Q6H PRN PRN Reason: Pain, Moderate(Pain Scale 4-6) Pharmacy Consult (Consult Rx Etoh Phenob Im/Po) 1 each MISCELLANE ONCE PRN; Protocol PRN Reason: Consult order Phenobarbital (Phenobarbital 30 Mg Tablet) 30 mg PO BID [facility]; Protocol Stop: 01/27/25 21:01 Phenobarbital (Phenobarbital 15 Mg Tablet) 15 mg PO BID [facility]; Protocol Stop: 01/29/25 21:01 Phenobarbital (Phenobarbital 15 Mg Tablet) 15 mg PO DAILY [facility]; Protocol Stop: 01/31/25 09:01 Phenobarbital Sodium (Phenobarbital Sodium 130 Mg/Ml Im Once) 192 mg IM ONCE ONE; Protocol Stop: 01/25/25 18:01 Phenobarbital Sodium (Phenobarbital Sodium 130 Mg/Ml Vial Im Q3hx2) 144 mg IM Q3H SAMANTHA; Protocol Stop: 01/26/25 00:01 Sodium Chloride (0.9 % Sodium Chloride Flush 3 Ml Syringe) [facility] Medications ?Medication ?Instructions ?Recorded ?Confirmed ?Last Taken ?Type cholecalciferol (vitamin D3) 50 50 mcg PO DAILY 11/01/23 11/21/24 10/26/24 History mcg (2,000 unit) tablet folic acid 1 mg tablet 1 mg PO DAILY 11/01/23 11/21/24 10/26/24 History pantoprazole 40 mg tablet,delayed 40 mg PO DAILY@0630 11/01/23 11/21/24 10/26/24 History release clonidine HCl 0.1 mg tablet 0.1 mg PO TID PRN Anxiety 12/10/23 11/21/24 06/23/24 History citalopram 40 mg tablet 40 mg PO DAILY 02/26/24 11/21/24 10/26/24 History thiamine HCl (vitamin B1) 100 mg 100 mg PO DAILY 09/26/24 11/21/24 10/26/24 History tablet trazodone 100 mg tablet 100 mg PO BEDTIME PRN insomnia 10/27/24 11/21/24 Unknown History bupropion HCl 150 mg 24 hr tablet, 150 mg PO DAILY 11/21/24 11/21/24 Unknown History extended release Physical Exam 2 Vital Signs and Narrative: Vital Signs: Last Vital Signs Temp 98.1 F 01/25/25 17:22 Pulse 99 01/25/25 17:22 Resp 20 01/25/25 17:22 BP 148/64 H 01/25/25 17:22 Pulse Ox 94 01/25/25 17:22 O2 Del Method Room Air 01/25/25 17:22 BMI result Body Mass Index 18.2 Constitutional - Awake but weak and uncomfortable appearing Eyes - PERRLA, EOMI Cardiovascular - S1S2, RRR, No edema Respiratory - Normal lung expansion, Normal respiratory effort, No respiratory distress, CTA bilaterally Gastrointestinal - upper abd pain, greatest in epigastrium with guarding but no rebound. ND; +BS Extremities - no calf tenderness bilaterally, no swelling Skin - Warm/Dry Neurological - Alert & oriented x3 Psychological - no ah/vh Results Labs 01/25/25 15:42 01/25/25 15:42 Labs: Laboratory Results - last 24 hr 01/25/25 15:42 MCV 93.1 MCH 34.4 H MCHC 36.9 H RDW 14.3 Plt Count 283 D MPV 9.9 Immature Gran % (Auto) 0.3 Neut % (Auto) 82.0 H Lymph % (Auto) 12.7 L Dickens % (Auto) 4.5 Eos % (Auto) 0.1 Baso % (Auto) 0.4 Lymph # (Auto) 1.9 Dickens # (Auto) 0.7 Eos # (Auto) 0.0 Baso # (Auto) 0.1 Abs Immat Gran (auto) 0.05 H Absolute Neuts (auto) 12.4 H Absolute Nucleated RBC 0.000 Nucleated RBC % (auto) 0.0 Anion Gap 20 Estim Creat Clear Calc 83.7 Estimated GFR > 60 Random Glucose 157 H Calcium 8.9 Magnesium 0.9 L* Total Bilirubin 0.7 AST 62 H ALT < 6 Alkaline Phosphatase 179 H C-Reactive Protein 0.14 Total Protein 6.6 Albumin 3.7 Lipase 440 H Ethyl Alcohol < 10 Influenza Type A (PCR) NEGATIVE Influenza Type B (PCR) NEGATIVE RSV RNA Qual (PCR) NEGATIVE SARS-CoV-2 RNA (RT-PCR) NEGATIVE Assessment and Plan (1) Hypokalemia: Status: Acute (2) Alcoholism: Status: Acute (3) Hypomagnesemia: Status: Acute (4) Acute alcoholic pancreatitis: Status: Acute (5) Alcohol withdrawal: Qualifiers: Complication of substance-induced condition: uncomplicated Qualified Code(s): F10.930 - Alcohol use, unspecified with withdrawal, uncomplicated Status: Acute Plan 49-year-old female with history of alcohol use disorder, C diff colitis, polysubstance abuse, recurrent pancreatitis, chronic hepatitis-C infection, GERD, hypertension, mood disorder admitted for further management of acute alcohol withdrawal with acute alcoholic pancreatitis acute alcoholic pancreatitis prior history of pancreatitis on CT scan. Lipase 440 aggressive IV fluid resuscitation with LR at 150 mL/hr pain management p.r.n. with IV Dilaudid and oxycodone using pain scale antiemetics p.r.n. NPO for now, advance as tolerated trend lipase alcohol use disorder and acute withdrawal ethyl alcohol level undetectable. Last drink at 21:00. Drinks 4-5 vodka shots on a daily basis monitor on CIWA phenobarbital per protocol IV thiamine and folic acid addiction medicine consult acute hypomagnesemia related to alcohol use given 2 mg IV Mag in the ED. Repeat to mg IV Mag ordered follow electrolytes acute hypokalemia related to alcohol use KCL 10 mEq IV x4 in addition to magnesium repletion EKG with ST depressions in inferior and lateral leads. Troponin WNL Monitor on telemetry follow lytes acute leukocytosis reactive in the setting of vomiting. No sepsis / severe sepsis incomplete bladder emptying UA/UC pending history of polysubstance abuse U tox pending history of hepatitis-C check viral load GERD PPI mood disorder continue home medications hypertension continue amlodipine DVT prophylaxis-Lovenox full code patient requires inpatient stay at least 2 midnights for management of acute alcoholic pancreatitis and acute alcohol withdrawal with known history of seizure activity related to alcohol withdrawal on phenobarbital per protocol with close monitoring on CIWA as well as aggressive IV fluids and IV pain management with diet advancement as symptoms improve Quality Stroke Does the patient have a stroke diagnosis?: No VTE Prior VTE?: No VTE Risk Level:: Medical - moderate - high VTE Device Contraindication: Treatment Not Indicated VTE Drug Contraindication: N/A - Med Ordered
[2025-01-25] MEDS: Lactated Ringers 1,000 ML 999 ML IV (17:46)
[2025-01-25] MEDS: PHENobarbitaL sodium 130 MG/ML IM ONCE 192 MG IM (17:47)
[2025-01-25] MEDS: Enoxaparin Sodium 40 MG/0.4 ML SYRINGE SUBCUT (17:51)
[2025-01-25] MEDS: Potassium Chloride/H20 10 MEQ/100 ML PIGGYBACK 100 MEQ IV ×4 (17:54→21:07)
[2025-01-25] MEDS: Thiamine HCL 100 MG in 0.9 % Sodium Chloride 100 ML 202 MG IV (18:07)
--- NOTE | 2025-01-25 18:25 | PC.NURSE ---
Pt desat to 87% on RA. Placed on 2L NC O2 with good effect- maintaining O2 sat mid 90s, provider aware. Respirations even and unlabored, no increased wob/sob noted. 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 IV fluids/medications infusing per MAR. Call yarbrough within reach, all needs met at this time.
[2025-01-25] MEDS: Folic Acid 1 MG in 0.9 % Sodium Chloride 50 ML 100.4 MG IV (18:48)
[2025-01-25] MEDS: Lactated Ringers 1,000 ML 150 ML IVCONT (18:48)
[2025-01-25] MEDS: PHENobarbitaL sodium 130 MG/ML VIAL IM Q3Hx2 144 MG IM ×2 (21:04→23:49)
[2025-01-25] MEDS: HYDROmorphone HCl 1 MG/ML SYRINGE 0.5 MG IVPUSH (22:19)
[2025-01-25 22:23] LABS: Appearance Urine Clear; Color Urine Yellow; Glucose Urine UA Negative (Negative); Leukocyte Esterase Urine Negative (Negative); Nitrite Urine Negative (Negative); PH 6.5 (5.0-9.0); Urine Blood Negative (Negative); Urine Ketones Negative (Negative); Urine Protein Trace mg/dL (Neg-Trace)
[2025-01-25 23:14] LABS: Amphetamine Screen Urine Not Detected (Not Detect); Barbiturates, Urine POSITIVE (Not Detect); Benzodiazepines Screen Urine Not Detected (Not Detect); Buprenorphine Scr Not Detected (Not Detect); Cannabinoid Screen Urine POSITIVE (Not Detect); Cocaine Screen Urine POSITIVE (Not Detect); Fentanyl, urine Not Detected (Not Detect); Methadone Screen, Urine Not Detected (Not Detect); Opiate Screen Urine POSITIVE (Not Detect); Oxycodone Screen Urine Positive (Not Detect); Phencyclidine Screen Urine Not Detected (Not Detect)
[2025-01-26] MEDS: Lactated Ringers 1,000 ML 150 ML IVCONT ×3 (01:17→16:26)
[2025-01-26 03:45] VITALS: BP 148/71; PULSE 89; RESP 20; TEMP 36.4; O2SAT 93
[2025-01-26] MEDS: HYDROmorphone HCl 1 MG/ML SYRINGE 0.5 MG IVPUSH ×3 (06:22→14:32)
[2025-01-26 06:35] LABS: MANUAL DIFF FLAG NO
[2025-01-26 06:38] LABS: CDiff Gene PCR POSITIVE (Negative)
[2025-01-26 06:43] LABS: Basophils Percent Auto 0.3 % (0-2); Eosinophils Absolute Auto 0.1 X10*3/uL (0.0-0.4); Eosinophils Percent Auto 0.7 % (0-4); Hematocrit 30.9 % (37.0-47.0); Hemoglobin 11.2 g/dl (12.0-16.0); Imm Gran Abs Auto 0.06 X10*3/uL (0.00-0.03); Imm Gran Pct Auto 0.6 % (0.0-0.4); Mean Corpuscular HGB Conc 36.2 g/dl (31.0-35.0); Mean Corpuscular Hemoglobin 34.7 pg (27.0-33.0); Mean Corpuscular Volume 95.7 fL (80.0-98.0); Mean Platelet Volume 10.1 fL (9.4-12.3); Monocytes Absolute Auto 0.4 X10*3/uL (0.1-1.2); Monocytes Percent Auto 4.2 % (2-11); Neutrophils Absolute Auto 7.4 x10*3/uL (2.0-8.3); Neutrophils Percent Auto 74.2 % (45-73); Platelet Count 185 X10*3/uL (160-400); Red Blood Count 3.23 X10*6/uL (4.20-5.50); Red Cell Distribution Width 14.1 % (11.0-16.0)
[2025-01-26 06:51] VITALS: BP 131/70; PULSE 79; RESP 20; TEMP 36.4; O2SAT 96
[2025-01-26 07:15] LABS: Anion Gap 12 (12-20); Blood Urea Nitrogen 3 mg/dL (9-16); Carbon Dioxide 29 mmol/L (22-29); Chloride 105 mmol/L (96-108); Creatinine Clr Calc Pharmacy 108.7; Estimated Glomerular Filt Rate > 60; Glucose Random 97 mg/dL (60-115); Magnesium 1.5 mg/dL (1.6-2.6); Sodium 144 mmol/L (135-145)
[2025-01-26 07:24] LABS: Lipase 960 U/L (8-78)
[2025-01-26] MEDS: PHENobarbitaL 30 MG TABLET PO ×2 (08:06→20:06)
[2025-01-26] MEDS: Thiamine HCL 100 MG in 0.9 % Sodium Chloride 100 ML 202 MG IV (08:06)
[2025-01-26] MEDS: Folic Acid 1 MG in 0.9 % Sodium Chloride 50 ML 100.4 MG IV (09:13)
[2025-01-26] MEDS: Potassium Chloride/H20 10 MEQ/100 ML PIGGYBACK 100 MEQ IV ×4 (09:13→14:39)
[2025-01-26 09:35] LABS: CDIFF Internal ctrl Dots and bkg OK (V); CDiff Toxin Negative (Negative)
--- NOTE | 2025-01-26 09:43 | PHA.MEDREC ---
Addendum entered by Roni Haynes 01/26/25 09:46: reviewed Original Note: Pharmacy Consult ? Medication Reconciliation Pharmacy has completed the medication reconciliation. Spoke to patient to confirm med list.
[2025-01-26] MEDS: oxyCODONE HCl Immed Release 5 MG TABLET PO ×3 (09:56→23:36)
[2025-01-26 10:52] VITALS: BP 151/77; PULSE 74; RESP 18; TEMP 36.7; O2SAT 95
--- NOTE | 2025-01-26 11:21 | MHC.CM.PN ---
Pt lives with her son, she is independent, no home health services or DME. PCP confirmed: Ayala Marshall, HCP on file and confirmed, her son Tc. Pt. can arrange a ride home at [place]. DCP: home, self care. CM to follow for DC needs.
[2025-01-26 14:27] VITALS: BMI 19.4
--- NOTE | 2025-01-26 15:14 | MHC.RECOVRN ---
Attempted to meet with pt after receiving Addiction Medicine consult for alcohol use disorder. Pt laying in bed, eyes closed, room completely dark. Pt reports feeling exhausted and requests t/w return at another time. Heide Paul APRN, aware.
--- NOTE | 2025-01-26 15:32 | PM.GICN ---
History of Present Illness Data of Consult Service Date: 01/26/25 Requesting physician: Dilip Sherwood Primary Care Provider: Ayala Patton MD HPI Reason for consult: Pancreatitis 49 YF with alcohol use disorder, C diff colitis, polysubstance abuse, recurrent pancreatitis, chronic hepatitis-C infection, hypertension, mood disorder seen at [facility] on 01/25/25 with a 2 week hx of epigastric pain radiating around the left side associated with nausea and non-bloody vomiting x5-6 times with decreased appetite. She also states that she has had nonbloody diarrhea ongoing for weeks with up to 9 non-bloody loose to watery stools daily. Pt reports feeling of incomplete bladder emptying but no dysuria or hematuria or increased frequency. Pt denied fevers, chills or sick contacts. Denies eating any bad foods. No recent antibiotics except for the p.o. vancomycin which she completed during admission with discharge on 11/01. She reports drinking 4-5 shots on a daily basis, last drink was night of 01/25/25 at 21:00. Pt has a a history of severe alcohol withdrawal including withdrawal seizures. Currently reporting tremors, nausea, vomiting, reports some confusion but is oriented x3 As well as anxiety / agitation. Denies any AH/VH. She denies any other substance use. Pt admits to wt loss (119 to 105 lbs) over the past month Pt is followed by Dr Sheets ([facility]) and takes Pantoprazole for GERD symptoms and pancreatic enzymes for pancreatic insufficiency. Pt reports she has been diagnosed with hemochromatosis and is not on any treatment at present. She admits to smoking 1/2 PPD of cigarettes since age 16 and also smokes marijuana. Pt admits to being treated at inpatient rehab (at [facility]) several times and longest she could stay sober was 24 days. Patient is single and lives with her son. 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 Per patient she was fired from her job and she applied for [place] due to her illness. Family hx is positive for alcoholism in her Mom and Mom's side of the family. Dad of colon or prostate cancer (?related to agent orange) in his 70s Patient states she completed outpatient treatment for hepatitis-C in 2004 or ? 2015 (interfereon and Ribavarin x 6 months). Denied IV drug use. Pt reports having a colonoscopy in January 2023 and 9 polyps were removed. She states she is due for a FU colon On arrival, patient hypertensive to 184/79 148/64 on admission. She is afebrile. She has a leukocytosis of 15.1. Renal function baseline. Hypokalemia with potassium 2.4. Hypomagnesemia with Mag level 0.9. Otherwise electrolytes within normal limits. Total bilirubin 0.7, AST 62, ALT undetectable, alkaline phosphatase 179. Lipase elevated at 440. Ethyl alcohol level undetectable. Urine drug screen was positive for cocaine, marijuana, opiates, oxycodone and barbiturates. CT abdomen/pelvis deferred given patient has known hx of pancreatitis and has had [address]'s in the last year. Pt was admitted for further management. Review of Systems Review of Systems: Yes all other systems are reviewed and are negative [facility] Past Medical History Medical History (Updated 01/27/25 @ 17:00 by Paul Jerez MD) Alcohol use disorder, severe, dependence Clostridium difficile colitis Hypertension Alcohol use disorder Pancreatic insufficiency Gastroesophageal reflux disease Essential hypertension Mood disorder Cannabis use disorder Hepatitis C Tobacco use disorder Surgical History Surgical History H/O colonoscopy (~01/2023) Social History Social History Household Members: Significant Other and Other Household Members Other:: son Housing: House Do you presently have visiting nurse or other home services: No Alcohol intake: current Alcohol intake frequency: 3 or more drinks per day Alcohol type: hard liquor Comment: Pt refusing alarms, steady gait Patient Tobacco Use Status: Current everyday Tobacco user Tobacco use type: Cigarette Cigarette Packs Per Day: 0.5 Cigarettes Per Day: 10.0 e-Cigarette/Vaping Use: Never Used Patient Interested in Nicotine Replacement: No Second Hand Smoke Exposure: No Use of substances other than those prescribed or required for medical reasons: Yes Substance Use Type: Crack/Cocaine Substance Use Frequency: Occasionally Last Used Substance: Days (ago) Currently Displaying Signs/Symptoms of Drug Intoxication Withdrawal: No Have you been hit, kicked, punched, or otherwise hurt by someone within the past year? If so, by whom?: No Do you feel safe in your current relationship?: Yes Is there a partner from a previous relationship who is making you feel unsafe now?: No Are you made to feel afraid or neglected: No Advance Directives: Yes Advance Directives on File: Yes Advance Directives Date on File: 12/10/23 Do you have a plan to hurt others: No Plan Recently lost weight without trying: Yes How much weight loss: 2-13 pounds Eating poorly because of decreased appetite: Yes Nutrition screen score: 4 Nutrition Risks: Acute nausea or vomiting x1 week Patient : No service: No Meds Allergies Allergy/AdvReac Type Severity Reaction Status Date / Time No Known Allergies Allergy Verified 01/25/25 15:30 Active Medications: Current Medications Acetaminophen (Acetaminophen 325 Mg Tablet) 650 mg PO Q6H PRN PRN Reason: Pain, Mild 1-3,fever,headache Calcium Carbonate (Calcium Carbonate 750 Mg Tab.Chew) 750 mg PO Q4H PRN PRN Reason: Heartburn Enoxaparin Sodium (Enoxaparin Sodium 40 Mg/0.4 Ml Syringe) 40 mg SUBCUT Q24H [facility] Last Admin: 01/25/25 17:51 Dose: 40 mg Hydromorphone HCl (Hydromorphone Hcl 0.5 Mg/0.5 Ml Syringe) 0.5 mg IVPUSH Q3H PRN; Protocol PRN Reason: Pain, Severe (Pain Scale 7-10) Lactated Ringer's (Lr) 1,000 mls @ 150 mls/hr IVCONT .Q6H40M [facility] Last Admin: 01/26/25 09:56 Dose: 150 mls/hr Thiamine HCl 100 mg/ Sodium (Chloride) 101 mls @ 202 mls/hr IV DAILY [facility] Last Infusion: 01/26/25 09:04 Dose: Infused Folic Acid 1 mg/ Sodium (Chloride) 50.2 mls @ 100.4 mls/hr IV DAILY [facility] Last Infusion: 01/26/25 10:00 Dose: Infused Magnesium Hydroxide (Milk Of Magnesia 30 Ml Oral.Susp) 30 ml PO DAILY PRN PRN Reason: Constipation Melatonin (Melatonin 3 Mg Tablet) 6 mg PO BEDTIME PRN PRN Reason: Insomnia Nicotine (Nicotine 21 Mg Patch.Td24) 21 mg TRANSDERMA DAILY PRN PRN Reason: Nicotine Cravings Ondansetron HCl (Ondansetron Hcl 4 Mg/2 Ml Vial) 4 mg IVPUSH Q8H PRN PRN Reason: Nausea and Vomiting Oxycodone HCl (Oxycodone Hcl Immed Release 5 Mg Tablet) 5 mg PO Q6H PRN PRN Reason: Pain, Moderate(Pain Scale 4-6) Last Admin: 01/26/25 09:56 Dose: 5 mg Pharmacy Consult (Consult Rx Etoh Phenob Im/Po) 1 each MISCELLANE ONCE PRN; Protocol PRN Reason: Consult order Phenobarbital (Phenobarbital 30 Mg Tablet) 30 mg PO BID [facility]; Protocol Stop: 01/27/25 21:01 Last Admin: 01/26/25 08:06 Dose: 30 mg Phenobarbital (Phenobarbital 15 Mg Tablet) 15 mg PO BID [facility]; Protocol Stop: 01/29/25 21:01 Phenobarbital (Phenobarbital 15 Mg Tablet) 15 mg PO DAILY [facility]; Protocol Stop: 01/31/25 09:01 Sodium Chloride (0.9 % Sodium Chloride Flush 3 Ml Syringe) [facility] Last Admin: 01/26/25 09:14 Dose: Not Given Home Medications ?Medication ?Instructions ?Recorded ?Confirmed ?Last Taken ?Type cholecalciferol (vitamin D3) 50 50 mcg PO DAILY 11/01/23 01/26/25 01/23/25 History mcg (2,000 unit) tablet folic acid 1 mg tablet 1 mg PO DAILY 11/01/23 01/26/25 01/23/25 History pantoprazole 40 mg tablet,delayed 40 mg PO DAILY@0630 11/01/23 01/26/25 01/23/25 History release clonidine HCl 0.1 mg tablet 0.1 mg PO TID PRN Anxiety 12/10/23 01/26/25 06/23/24 History citalopram 40 mg tablet 40 mg PO DAILY 02/26/24 01/26/25 01/23/25 History thiamine HCl (vitamin B1) 100 mg 100 mg PO DAILY 09/26/24 01/26/25 01/23/25 History tablet trazodone 100 mg tablet 100 mg PO BEDTIME PRN insomnia 10/27/24 01/26/25 Unknown History bupropion HCl 150 mg 24 hr tablet, 150 mg PO DAILY 11/21/24 01/26/25 01/23/25 History extended release sucralfate 100 mg/mL oral 10 ml PO QID 01/26/25 01/26/25 01/23/25 History suspension Physical Exam Vital Signs: Vital Signs: Last Vital Signs Temp 98.1 F 01/26/25 10:52 Pulse 74 01/26/25 10:52 Resp 18 01/26/25 10:52 BP 151/77 H 01/26/25 10:52 Pulse Ox 95 01/26/25 10:52 O2 Del Method Room Air 01/26/25 10:52 O2 Flow Rate 2 01/26/25 06:51 BMI result Body Mass Index 19.4 Const: General: no acute distress and other (uncomfortable due to abdominal pain) Nutritional Appearance: underweight Orientation/consciousness: patient oriented x3 Limitations: no limitations HEENT: Head: Yes normal to inspection Ears: hearing grossly normal bilaterally Eyes: Sclerae: sclerae normal Pupils: Equal, round and reactive pupils present Neck: Neck: Yes normal visual inspection Chest: Chest palpation & inspection: normal inspection of the chest Resp: Effort & Inspection: normal respiratory effort Auscultation: clear to auscultation bilaterally Cardio: Palpation: normal PMI Rate: regular rate Rhythm: regular rhythm Heart sounds: S1 normal heart sound present, S2 normal heart sound present and no murmurs GI: Palpation (GI): Soft to palpation, nontender and No hepatosplenomegaly present Auscultation: normal bowel sounds Rectal Exam - Female: deferred Skin: General skin exam: no rashes or lesions noted Neuro: General: patient oriented x3, gait normal and moves all extremities Cranial nerves: Yes Equal, round and reactive pupils present Psych: Appearance: grossly normal Mental Status: mental status grossly normal Results Labs 01/27/25 05:31 01/27/25 05:31 Labs: Short CBC 01/25/25 01/26/25 Range/Units 15:42 06:16 WBC 15.1 H 10.0 (4.8-10.8) X10*3/uL Hgb 13.5 11.2 L (12.0-16.0) g/dl Hct 36.6 L 30.9 L (37.0-47.0) % Plt Count 283 D 185 D (160-400) X10*3/uL BMP 01/25/25 01/26/25 15:42 06:16 Sodium 145 144 Potassium 2.4 L* D 2.0 L* Chloride 103 105 Carbon Dioxide 24 29 BUN 6 L 3 L Creatinine 0.61 0.47 L Calcium 8.9 8.0 L D Liver Function 01/25/25 Range/Units 15:42 Total Bilirubin 0.7 (0.0-1.0) mg/dL AST 62 H (5-31) U/L ALT < 6 (0-31) U/L Alkaline Phosphatase 179 H (39-117) U/L Albumin 3.7 (3.5-5.0) g/dL Urine 01/25/25 Range/Units 22:13 Urine Color Yellow Urine Appearance Clear Urine pH 6.5 (5.0-9.0) Ur Specific [place] 1.010 (1.005-1.025) Urine Protein Trace (Neg-Trace) mg/dL Urine Glucose (UA) Negative (Negative) mg/dL Assessment and Plan (1) Alcoholism: Status: Acute (2) Pancreatitis: Qualifiers: Pancreatitis type: alcohol induced Status: Acute Plan 49 YF with alcohol use disorder, C diff colitis, polysubstance abuse, recurrent pancreatitis, chronic hepatitis-C infection, hypertension, mood disorder admitted [place] [facility] [place] 01/25/25 with a 2 week hx of epigastric pain radiating around the left side associated with nausea and non-bloody vomiting x5-6 times with decreased appetite. She complained of nonbloody diarrhea for weeks with up to 9 non-bloody loose to watery stools daily. No recent antibiotics except for the p.o. vancomycin which she completed during admission with discharge on 11/01. She reports drinking 4-5 shots on a daily basis, last drink was night of 01/25/25 at 21:00. Pt has a a history of severe alcohol withdrawal including withdrawal seizures. Currently reporting tremors, nausea, vomiting, reports some confusion but is oriented x3 As well as anxiety / agitation. Denies any AH/VH. She denies any other substance use. Pt admits to wt loss (119 to 105 lbs) over the past month Labs showed total bilirubin 0.7, AST 62, ALT undetectable, alkaline phosphatase 179. Lipase elevated at 440 and increased to 960 on 01/26/25. Ethyl alcohol level undetectable. Urine drug screen was positive for cocaine, marijuana, opiates, oxycodone and barbiturates. Stool was positive for C Diff (Toxin B) indicating C diff colonization CT abdomen/pelvis deferred given patient has known hx of pancreatitis and has had [address]'s in the last year. Acute pancreatitis likely related to alcohol abuse. Pt was admitted with an episode of pancreatitis in Oct, 2024 and HIDA scan was negative for biliary obstruction 11/25/[address] SCAN SHOWED: 1. Resolution of previously seen mild acute pancreatitis of the head and uncinate process. 2. Resolution of previously present fatty infiltration of the liver. There is mild persistent hepatomegaly without focal lesion. 3. Resolution of previously described colonic wall thickening. No current evidence of colonic inflammation. Mild diverticulosis. RECOMMENDATIONS: 1. Agree with IV fluids, IV PPI antiemetics and CIWA protocol for ETOH withdrawl 2. Agree with advancing to a full liquid and then regular diet once abdominal pain has resolved Referral to Addiction Medicine to help her quit drinking Procedures Date of Service Date of Service: 01/27/25
[2025-01-26 15:36] VITALS: BP 138/76; PULSE 76; RESP 18; TEMP 36.5; O2SAT 94
--- NOTE | 2025-01-26 15:41 | HO.PM.IMPN ---
Subjective Subjective Date of Service: 01/26/25 Interval History: Pain control poor. Still unable to eat. Lipase rising Review of Systems Denies chest pain Denies shortness of breath Admits nausea without vomiting diarrhea Denies fever chills Physical Exam Vital Signs: Vital Signs: Last Vital Signs Temp 97.7 F 01/26/25 15:36 Pulse 76 01/26/25 15:36 Resp 18 01/26/25 15:36 BP 138/76 01/26/25 15:36 Pulse Ox 94 01/26/25 15:36 O2 Del Method Room Air 01/26/25 15:36 O2 Flow Rate 2 01/26/25 06:51 BMI result Body Mass Index 19.4 Const: Other: Awake alert uncomfortable appearing Resp: Other: Clear to auscultation bilaterally no rales rhonchi or wheezes Cardio: Other: No S4; positive S1-S2; no S3 murmurs rubs or gallops GI: Other: Soft tender across epigastrium. Quiet bowel sounds Extrem: Other: No edema bilaterally Objective Data Active Medications Acetaminophen (Acetaminophen 325 Mg Tablet) 650 mg PO Q6H PRN PRN Reason: Pain, Mild 1-3,fever,headache Calcium Carbonate (Calcium Carbonate 750 Mg Tab.Chew) 750 mg PO Q4H PRN PRN Reason: Heartburn Enoxaparin Sodium (Enoxaparin Sodium 40 Mg/0.4 Ml Syringe) 40 mg SUBCUT Q24H [facility] Last Admin: 01/25/25 17:51 Dose: 40 mg Documented By: GRACE Hydromorphone HCl (Hydromorphone Hcl 0.5 Mg/0.5 Ml Syringe) 0.5 mg IVPUSH Q3H PRN; Protocol PRN Reason: Pain, Severe (Pain Scale 7-10) Lactated Ringer's (Lr) 1,000 mls @ 150 mls/hr IVCONT .Q6H40M [facility] Last Admin: 01/26/25 09:56 Dose: 150 mls/hr Documented By: JANY Thiamine HCl 100 mg/ Sodium (Chloride) 101 mls @ 202 mls/hr IV DAILY [facility] Last Infusion: 01/26/25 09:04 Dose: Infused Documented By: JANY Folic Acid 1 mg/ Sodium (Chloride) 50.2 mls @ 100.4 mls/hr IV DAILY [facility] Last Infusion: 01/26/25 10:00 Dose: Infused Documented By: JANY Magnesium Hydroxide (Milk Of Magnesia 30 Ml Oral.Susp) 30 ml PO DAILY PRN PRN Reason: Constipation Melatonin (Melatonin 3 Mg Tablet) 6 mg PO BEDTIME PRN PRN Reason: Insomnia Nicotine (Nicotine 21 Mg Patch.Td24) 21 mg TRANSDERMA DAILY PRN PRN Reason: Nicotine Cravings Ondansetron HCl (Ondansetron Hcl 4 Mg/2 Ml Vial) 4 mg IVPUSH Q8H PRN PRN Reason: Nausea and Vomiting Oxycodone HCl (Oxycodone Hcl Immed Release 5 Mg Tablet) 5 mg PO Q6H PRN PRN Reason: Pain, Moderate(Pain Scale 4-6) Last Admin: 01/26/25 09:56 Dose: 5 mg Documented By: JANY Comments: pt aware of pain scale Pharmacy Consult (Consult Rx Etoh Phenob Im/Po) 1 each MISCELLANE ONCE PRN; Protocol PRN Reason: Consult order Phenobarbital (Phenobarbital 30 Mg Tablet) 30 mg PO BID [facility]; Protocol Stop: 01/27/25 21:01 Last Admin: 01/26/25 08:06 Dose: 30 mg Documented By: JANY Phenobarbital (Phenobarbital 15 Mg Tablet) 15 mg PO BID [facility]; Protocol Stop: 01/29/25 21:01 Phenobarbital (Phenobarbital 15 Mg Tablet) 15 mg PO DAILY [facility]; Protocol Stop: 01/31/25 09:01 Sodium Chloride (0.9 % Sodium Chloride Flush 3 Ml Syringe) [facility] Last Admin: 01/26/25 09:14 Dose: Not Given Documented By: JANY Non-Admin Reason: IV Running Labs 01/26/25 06:16 01/26/25 06:16 Labs: Laboratory Results - last 24 hr 01/25/25 01/25/25 01/26/25 15:42 22:13 05:15 MCV 93.1 MCH 34.4 H MCHC 36.9 H RDW 14.3 Plt Count 283 D MPV 9.9 Immature Gran % (Auto) 0.3 Neut % (Auto) 82.0 H Lymph % (Auto) 12.7 L [place] % (Auto) 4.5 Eos % (Auto) 0.1 Baso % (Auto) 0.4 Lymph # (Auto) 1.9 [place] # (Auto) 0.7 Eos # (Auto) 0.0 Baso # (Auto) 0.1 Abs Immat Gran (auto) 0.05 H Absolute Neuts (auto) 12.4 H Absolute Nucleated RBC 0.000 Nucleated RBC % (auto) 0.0 Anion Gap 20 Estim Creat Clear Calc 83.7 Estimated GFR > 60 Random Glucose 157 H Calcium 8.9 Magnesium 0.9 L* Total Bilirubin 0.7 AST 62 H ALT < 6 Alkaline Phosphatase 179 H C-Reactive Protein 0.14 Total Protein 6.6 Albumin 3.7 Lipase 440 H Urine Color Yellow Urine Appearance Clear Urine pH 6.5 Ur Specific [place] 1.010 Urine Protein Trace Urine Glucose (UA) Negative Urine Ketones Negative Urine Blood Negative Urine Nitrite Negative Ur Leukocyte Esterase Negative Urine Opiates Screen POSITIVE H Ur Buprenorphine Scrn Not Detected Ur Oxycodone Screen Positive H Urine Methadone Screen Not Detected Urine Fentanyl Screen Not Detected Ur Barbiturates Screen POSITIVE H Ur Phencyclidine Scrn Not Detected Ur Amphetamines Screen Not Detected U Benzodiazepines Scrn Not Detected Urine Cocaine Screen POSITIVE H U Marijuana (THC) Screen POSITIVE H Ethyl Alcohol < 10 C. difficile Tox B Gene POSITIVE A* C. difficile Toxin A&B Negative C. difficile Interpret SEE NOTE Influenza Type A (PCR) NEGATIVE Influenza Type B (PCR) NEGATIVE RSV RNA Qual (PCR) NEGATIVE SARS-CoV-2 RNA (RT-PCR) NEGATIVE 01/26/25 06:16 MCV 95.7 MCH 34.7 H MCHC 36.2 H RDW 14.1 Plt Count 185 D MPV 10.1 Immature Gran % (Auto) 0.6 H Neut % (Auto) 74.2 H Lymph % (Auto) 20.0 [place] % (Auto) 4.2 Eos % (Auto) 0.7 Baso % (Auto) 0.3 Lymph # (Auto) 2.0 [place] # (Auto) 0.4 Eos # (Auto) 0.1 Baso # (Auto) 0.0 Abs Immat Gran (auto) 0.06 H Absolute Neuts (auto) 7.4 Absolute Nucleated RBC 0.000 Nucleated RBC % (auto) 0.0 Anion Gap 12 Estim Creat Clear Calc 108.7 Estimated GFR > 60 Random Glucose 97 Calcium 8.0 L D Magnesium 1.5 L Total Bilirubin AST ALT Alkaline Phosphatase C-Reactive Protein Total Protein Albumin Lipase 960 H Urine Color Urine Appearance Urine pH Ur Specific [place] Urine Protein Urine Glucose (UA) Urine Ketones Urine Blood Urine Nitrite Ur Leukocyte Esterase Urine Opiates Screen Ur Buprenorphine Scrn Ur Oxycodone Screen Urine Methadone Screen Urine Fentanyl Screen Ur Barbiturates Screen Ur Phencyclidine Scrn Ur Amphetamines Screen U Benzodiazepines Scrn Urine Cocaine Screen U Marijuana (THC) Screen Ethyl Alcohol C. difficile Tox B Gene C. difficile Toxin A&B C. difficile Interpret Influenza Type A (PCR) Influenza Type B (PCR) RSV RNA Qual (PCR) SARS-CoV-2 RNA (RT-PCR) Assessment and Plan (1) Acute alcoholic pancreatitis: Status: Acute (2) Hypomagnesemia: Status: Acute (3) Hypokalemia: Status: Acute Plan 49-year-old female with history of alcohol use disorder, C diff colitis, polysubstance abuse, recurrent pancreatitis, chronic hepatitis-C infection, GERD, hypertension, mood disorder admitted for further management of acute alcohol withdrawal with acute alcoholic pancreatitis 1.Acute alcoholic pancreatitis -recurrent pancreatitis; lipase doubled -continue NPO status -adjust Dilaudid for pain management -GI consult pending 2.Alcohol use disorder and acute withdrawal - monitor on CIWA -phenobarbital per protocol -thiamine and folic acid addiction medicine consult 3.Acute hypomagnesemia/hypokalemia -replete as indicated -follow renals/divalent 4.Hypertension -acceptable control on current therapies -adjust as indicated Lovenox Full code Requires ongoing hospitalization for IV fluids in the backdrop of acute pancreatitis along with IV divalent repletion Quality Stroke Does the patient have a stroke diagnosis?: No VTE Prior VTE?: No VTE Risk Level:: Medical - moderate - high VTE Device Contraindication: Treatment Not Indicated VTE Drug Contraindication: N/A - Med Ordered
[2025-01-26 16:20] LABS: Adenovirus F 40/41 Not Detected (Not Detect.); Astrovirus Not Detected (Not Detect.); Campylobacter Not Detected (Not Detect.); Cryptosporidium Not Detected (Not Detect.); Cyclospora cayetanensis Not Detected (Not Detect.); E. coli EAEC Not Detected (Not Detect.); E. coli EPEC Not Detected (Not Detect.); E. coli ETEC Not Detected (Not Detect.); E. coli STEC Not Detected (Not Detect.); Entamoeba histolytica Not Detected (Not Detect.); Giardia lamblia Not Detected (Not Detect.); Norovirus GI/GII Not Detected (Not Detect.); Plesiomonas shigelloides Not Detected (Not Detect.); Rotavirus A Not Detected (Not Detect.); Salmonella Not Detected (Not Detect.); Sapovirus Not Detected (Not Detect.); Shigella sp./EIEC Not Detected (Not Detect.); Vibrio Not Detected (Not Detect.); Vibrio Cholerae Not Detected (Not Detect.); Yersinia enterocolitica Not Detected (Not Detect.)
[2025-01-26] MEDS: Enoxaparin Sodium 40 MG/0.4 ML SYRINGE SUBCUT (16:24)
[2025-01-26] MEDS: 0.9 % Sodium Chloride Flush 3 ML SYRINGE IVFLUSH ×2 (16:25→19:33)
[2025-01-26] MEDS: HYDROmorphone HCl 0.5 MG/0.5 ML SYRINGE IVPUSH ×2 (19:28→22:41)
[2025-01-26 20:00] VITALS: BP 134/74; PULSE 74; RESP 18; TEMP 36.7; O2SAT 97
[2025-01-26 23:40] VITALS: BP 128/72; PULSE 75; RESP 16; TEMP 36.4; O2SAT 96
[2025-01-27] MEDS: Lactated Ringers 1,000 ML 150 ML IVCONT ×3 (00:27→15:18)
[2025-01-27] MEDS: traZODone HCL 100 MG TABLET PO ×2 (00:27→20:47)
[2025-01-27] MEDS: HYDROmorphone HCl 0.5 MG/0.5 ML SYRINGE IVPUSH ×3 (02:18→10:34)
[2025-01-27 03:32] VITALS: BP 128/68; PULSE 75; RESP 16; TEMP 36.3; O2SAT 92
[2025-01-27 06:04] LABS: MANUAL DIFF FLAG NO
[2025-01-27 06:11] LABS: Basophils Percent Auto 0.7 % (0-2); Eosinophils Absolute Auto 0.2 X10*3/uL (0.0-0.4); Eosinophils Percent Auto 2.5 % (0-4); Hematocrit 32.4 % (37.0-47.0); Hemoglobin 11.6 g/dl (12.0-16.0); Imm Gran Abs Auto 0.02 X10*3/uL (0.00-0.03); Imm Gran Pct Auto 0.3 % (0.0-0.4); Lymphocytes Absolute Auto 2.3 X10*3/uL (1.2-4.9); Lymphocytes Percent Auto 39.1 % (20-40); Mean Corpuscular HGB Conc 35.8 g/dl (31.0-35.0); Mean Corpuscular Hemoglobin 34.4 pg (27.0-33.0); Mean Corpuscular Volume 96.1 fL (80.0-98.0); Mean Platelet Volume 9.9 fL (9.4-12.3); Monocytes Absolute Auto 0.4 X10*3/uL (0.1-1.2); Monocytes Percent Auto 5.8 % (2-11); Neutrophils Absolute Auto 3.1 x10*3/uL (2.0-8.3); Neutrophils Percent Auto 51.6 % (45-73); Platelet Count 160 X10*3/uL (160-400); Red Blood Count 3.37 X10*6/uL (4.20-5.50); Red Cell Distribution Width 14.4 % (11.0-16.0)
[2025-01-27 06:39] LABS: Alkaline Phosphatase 127 U/L (39-117)
[2025-01-27 07:02] VITALS: BP 172/82; PULSE 84; RESP 18; TEMP 36.7; O2SAT 95
[2025-01-27 07:18] LABS: Alanine Aminotransferase 7 U/L (0-31); Albumin Level 2.8 g/dL (3.5-5.0); Anion Gap 13 (12-20); Aspartate Amino Transferase 38 U/L (5-31); Bilirubin Total 0.6 mg/dL (0.0-1.0); Blood Urea Nitrogen < 3 mg/dL (9-16); Calcium 7.9 mg/dL (8.4-10.2); Carbon Dioxide 30 mmol/L (22-29); Chloride 103 mmol/L (96-108); Creatinine Clr Calc Pharmacy 121.6; Estimated Glomerular Filt Rate > 60; Glucose Fasting 78 mg/dL (60-99); Lipase 59 U/L (8-78); Potassium 1.9 mmol/L (3.3-5.1); Sodium 144 mmol/L (135-145); Total Protein 5.2 g/dL (6.5-8.0)
[2025-01-27] MEDS: Potassium Chloride/H20 10 MEQ/100 ML PIGGYBACK 100 MEQ IV ×4 (07:50→13:46)
[2025-01-27] MEDS: Magnesium Sulfate/H2O 2 GM/50 ML PIGGYBACK IV ×2 (07:50→15:18)
[2025-01-27] MEDS: 0.9 % Sodium Chloride Flush 3 ML SYRINGE IVFLUSH ×2 (07:51→17:21)
[2025-01-27] MEDS: Potassium Chloride Packet 20 MEQ PACKET 40 MEQ PO ×4 (07:51→20:42)
[2025-01-27 07:56] LABS: Magnesium 1.1 mg/dL (1.6-2.6)
[2025-01-27] MEDS: oxyCODONE HCl Immed Release 5 MG TABLET PO ×4 (08:10→20:51)
--- NOTE | 2025-01-27 09:40 | HO.ADDICTCON ---
History of Present Illness Date of Service: 01/27/2025 Chief Complaint: ETOH withdrawal and Pancreatitis Reason for Consult: AUD Sources of Information: patient interviewed and chart reviewed HPI Narrative: Patient is a 49 year old female with AUD and recurrent pancreatitis medically admitted with acute pancreatitis and alcohol withdrawal Known to [facility] and [facility] via previous admissions. Patient seen in room 468. She is laying in bed, awake, alert, reports feeling terrible . Stating that pain is continuous. She reports she has cut down on alcohol use --previously drinking 10 nips daily, now down to 5 nips daily States she has been taking Naltrexone at home, but not currently engaged with any providers. Denies withdrawal sx. CIWA scores have been low--1 since admission. Labs reviewed low K and Mg UDS +cocaine AUDIT-C Brief Intervention This parts data writer met with patient to discuss current alcohol use and concerns related to increased risk of alcohol related problems. Discussed how alcohol use has impacted health, including negative impact on mental health and overall physical wellbeing. Discussed risk reduction strategies including drinking below the recommended limit. Review of Systems Constitutional: Reports as per HPI, Reports difficulty sleeping, Reports lethargy and Reports malaise Gastrointestinal: Reports abdominal pain and Reports nausea Diagnostics Vital Signs (24Hr): Vital Signs - 24 hr 01/26/25 10:52 01/26/25 15:36 01/26/25 20:00 Temperature 98.1 F 97.7 F 98.1 F Pulse Rate 74 76 74 Respiratory Rate 18 18 18 Blood Pressure 151/77 H 138/76 134/74 Pulse Oximetry 95 94 97 Oxygen Delivery Method Room Air Room Air Room Air 01/26/25 23:40 01/27/25 03:32 01/27/25 07:02 Temperature 97.5 F 97.4 F 98.0 F Pulse Rate 75 75 84 Respiratory Rate 16 16 18 Blood Pressure 128/72 128/68 172/82 H Pulse Oximetry 96 92 95 Oxygen Delivery Method Room Air Room Air Room Air BMI result Body Mass Index 19.4 Labs 01/27/25 05:31 01/27/25 05:31 Labs: Laboratory Results - last 48 hr 01/25/25 01/25/25 01/26/25 15:42 22:13 05:15 WBC 15.1 H RBC 3.93 L Hgb 13.5 Hct 36.6 L MCV 93.1 MCH 34.4 H MCHC 36.9 H RDW 14.3 Plt Count 283 D MPV 9.9 Immature Gran % (Auto) 0.3 Neut % (Auto) 82.0 H Lymph % (Auto) 12.7 L [place] % (Auto) 4.5 Eos % (Auto) 0.1 Baso % (Auto) 0.4 Lymph # (Auto) 1.9 [place] # (Auto) 0.7 Eos # (Auto) 0.0 Baso # (Auto) 0.1 Abs Immat Gran (auto) 0.05 H Absolute Neuts (auto) 12.4 H Absolute Nucleated RBC 0.000 Nucleated RBC % (auto) 0.0 Sodium 145 Potassium 2.4 L* D Chloride 103 Carbon Dioxide 24 Anion Gap 20 BUN 6 L Creatinine 0.61 Estim Creat Clear Calc 83.7 Estimated GFR > 60 Random Glucose 157 H Fasting Glucose Calcium 8.9 Magnesium 0.9 L* Total Bilirubin 0.7 AST 62 H ALT < 6 Alkaline Phosphatase 179 H Troponin I High Sens 4.2 D C-Reactive Protein 0.14 Total Protein 6.6 Albumin 3.7 Lipase 440 H Urine Color Yellow Urine Appearance Clear Urine pH 6.5 Ur Specific [place] 1.010 Urine Protein Trace Urine Glucose (UA) Negative Urine Ketones Negative Urine Blood Negative Urine Nitrite Negative Ur Leukocyte Esterase Negative Stl C. cayetanensis PCR Stool Rotavirus A PCR Stl Adenov F 40/41 PCR Stool Astrovirus (PCR) Stool Campylobacter PCR Stool Cryptosporidium PCR Stl Sh Tox Pr E STEC PCR Stool E coli O157 PCR Stl Enterotoxigenic E PCR Stool EPEC (PCR) Stool EAEC (PCR) Stl E. histolytica PCR Stool Giardia Lamblia PCR Stl P. shigelloides PCR Stool Salmonella PCR Stool Sapovirus (PCR) Stl Shigella/EIEC PCR St Y.enterocolitica PCR Stool Vibrio (PCR) Stl Vibrio cholerae PCR Stl Norovirus GI/GII PCR Urine Opiates Screen POSITIVE H Ur Buprenorphine Scrn Not Detected Ur Oxycodone Screen Positive H Urine Methadone Screen Not Detected Urine Fentanyl Screen Not Detected Ur Barbiturates Screen POSITIVE H Ur Phencyclidine Scrn Not Detected Ur Amphetamines Screen Not Detected U Benzodiazepines Scrn Not Detected Urine Cocaine Screen POSITIVE H U Marijuana (THC) Screen POSITIVE H Ethyl Alcohol < 10 C. difficile Tox B Gene POSITIVE A* C. difficile Toxin A&B Negative C. difficile Interpret SEE NOTE Influenza Type A (PCR) NEGATIVE Influenza Type B (PCR) NEGATIVE RSV RNA Qual (PCR) NEGATIVE SARS-CoV-2 RNA (RT-PCR) NEGATIVE 01/26/25 01/26/25 01/27/25 06:16 13:45 05:31 WBC 10.0 6.0 RBC 3.23 L 3.37 L Hgb 11.2 L 11.6 L Hct 30.9 L 32.4 L MCV 95.7 96.1 MCH 34.7 H 34.4 H MCHC 36.2 H 35.8 H RDW 14.1 14.4 Plt Count 185 D 160 MPV 10.1 9.9 Immature Gran % (Auto) 0.6 H 0.3 Neut % (Auto) 74.2 H 51.6 Lymph % (Auto) 20.0 39.1 [place] % (Auto) 4.2 5.8 Eos % (Auto) 0.7 2.5 Baso % (Auto) 0.3 0.7 Lymph # (Auto) 2.0 2.3 [place] # (Auto) 0.4 0.4 Eos # (Auto) 0.1 0.2 Baso # (Auto) 0.0 0.0 Abs Immat Gran (auto) 0.06 H 0.02 Absolute Neuts (auto) 7.4 3.1 Absolute Nucleated RBC 0.000 0.000 Nucleated RBC % (auto) 0.0 0.0 Sodium 144 144 Potassium 2.0 L* 1.9 L* Chloride 105 103 Carbon Dioxide 29 30 H Anion Gap 12 13 BUN 3 L < 3 L Creatinine 0.47 L 0.42 L Estim Creat Clear Calc 108.7 121.6 Estimated GFR > 60 > 60 Random Glucose 97 Fasting Glucose 78 Calcium 8.0 L D 7.9 L Magnesium 1.5 L 1.1 L* Total Bilirubin 0.6 AST 38 H ALT 7 Alkaline Phosphatase 127 H Troponin I High Sens C-Reactive Protein Total Protein 5.2 L Albumin 2.8 L Lipase 960 H 59 Urine Color Urine Appearance Urine pH Ur Specific [place] Urine Protein Urine Glucose (UA) Urine Ketones Urine Blood Urine Nitrite Ur Leukocyte Esterase Stl C. cayetanensis PCR Not Detected Stool Rotavirus A PCR Not Detected Stl Adenov F 40/41 PCR Not Detected Stool Astrovirus (PCR) Not Detected Stool Campylobacter PCR Not Detected Stool Cryptosporidium PCR Not Detected Stl Sh Tox Pr E STEC PCR Not Detected Stool E coli O157 PCR Not applicable Stl Enterotoxigenic E PCR Not Detected Stool EPEC (PCR) Not Detected Stool EAEC (PCR) Not Detected Stl E. histolytica PCR Not Detected Stool Giardia Lamblia PCR Not Detected Stl P. shigelloides PCR Not Detected Stool Salmonella PCR Not Detected Stool Sapovirus (PCR) Not Detected Stl Shigella/EIEC PCR Not Detected St Y.enterocolitica PCR Not Detected Stool Vibrio (PCR) Not Detected Stl Vibrio cholerae PCR Not Detected Stl Norovirus GI/GII PCR Not Detected Urine Opiates Screen Ur Buprenorphine Scrn Ur Oxycodone Screen Urine Methadone Screen Urine Fentanyl Screen Ur Barbiturates Screen Ur Phencyclidine Scrn Ur Amphetamines Screen U Benzodiazepines Scrn Urine Cocaine Screen U Marijuana (THC) Screen Ethyl Alcohol C. difficile Tox B Gene C. difficile Toxin A&B C. difficile Interpret Influenza Type A (PCR) Influenza Type B (PCR) RSV RNA Qual (PCR) SARS-CoV-2 RNA (RT-PCR) Mental Status Exam Mental Status Exam Patient Appearance: Appropriate Level of Consciousness: Awake and Appropriate Patient Behavior: Appropriate Affect Description: Flat Speech Pattern: Clear Hallucinations: None Judgement: Good Medications Medications Current Medications Acetaminophen (Acetaminophen 325 Mg Tablet) 650 mg PO Q6H PRN PRN Reason: Pain, Mild 1-3,fever,headache Amlodipine Besylate (Amlodipine Besylate 5 Mg Tablet) 5 mg PO DAILY [facility]; Protocol Bupropion HCl (Bupropion Hcl Xl 150 Mg Tab.Er.24h) 150 mg PO DAILY [facility] Calcium Carbonate (Calcium Carbonate 750 Mg Tab.Chew) 750 mg PO Q4H PRN PRN Reason: Heartburn Clonidine HCl (Clonidine Hcl 0.1 Mg Tablet) 0.1 mg PO TID PRN; Protocol PRN Reason: Anxiety Enoxaparin Sodium (Enoxaparin Sodium 40 Mg/0.4 Ml Syringe) 40 mg SUBCUT Q24H [facility] Last Admin: 01/26/25 16:24 Dose: 40 mg Escitalopram Oxalate (Escitalopram Oxalate 20 Mg Tablet) 20 mg PO DAILY [facility] Hydromorphone HCl (Hydromorphone Hcl 0.5 Mg/0.5 Ml Syringe) 0.5 mg IVPUSH Q3H PRN; Protocol PRN Reason: Pain, Severe (Pain Scale 7-10) Last Admin: 01/27/25 05:47 Dose: 0.5 mg Lactated Ringer's (Lr) 1,000 mls @ 150 mls/hr IVCONT .Q6H40M [facility] Last Admin: 01/27/25 07:51 Dose: 150 mls/hr Thiamine HCl 100 mg/ Sodium (Chloride) 101 mls @ 202 mls/hr IV DAILY [facility] Last Infusion: 01/26/25 09:04 Dose: Infused Folic Acid 1 mg/ Sodium (Chloride) 50.2 mls @ 100.4 mls/hr IV DAILY [facility] Last Infusion: 01/26/25 10:00 Dose: Infused Potassium Chloride (Potassium Chloride/H20) 10 meq in 100 mls @ 100 mls/hr IV Q1H [facility] Stop: 01/27/25 11:14 Last Infusion: 01/27/25 08:05 Dose: 0 mls/hr Magnesium Hydroxide (Milk Of Magnesia 30 Ml Oral.Susp) 30 ml PO DAILY PRN PRN Reason: Constipation Magnesium Oxide (Magnesium Oxide 400 Mg Tablet) 800 mg PO DAILY [facility] Melatonin (Melatonin 3 Mg Tablet) 6 mg PO BEDTIME PRN PRN Reason: Insomnia Nicotine (Nicotine 21 Mg Patch.Td24) 21 mg TRANSDERMA DAILY PRN PRN Reason: Nicotine Cravings Omeprazole (Omeprazole 40 Mg Capsule.Dr) 40 mg PO DAILY@0630 [facility] Ondansetron HCl (Ondansetron Hcl 4 Mg/2 Ml Vial) 4 mg IVPUSH Q8H PRN PRN Reason: Nausea and Vomiting Oxycodone HCl (Oxycodone Hcl Immed Release 5 Mg Tablet) 5 mg PO Q6H PRN PRN Reason: Pain, Moderate(Pain Scale 4-6) Last Admin: 01/27/25 08:10 Dose: 5 mg Pharmacy Consult (Consult Rx Etoh Phenob Im/Po) 1 each MISCELLANE ONCE PRN; Protocol PRN Reason: Consult order Phenobarbital (Phenobarbital 30 Mg Tablet) 30 mg PO BID [facility]; Protocol Stop: 01/27/25 21:01 Last Admin: 01/26/25 20:06 Dose: 30 mg Phenobarbital (Phenobarbital 15 Mg Tablet) 15 mg PO BID [facility]; Protocol Stop: 01/29/25 21:01 Phenobarbital (Phenobarbital 15 Mg Tablet) 15 mg PO DAILY [facility]; Protocol Stop: 01/31/25 09:01 Potassium Chloride (Potassium Chloride Packet 20 Meq Packet) 40 meq PO Q4H [facility] Stop: 01/27/25 19:16 Last Admin: 01/27/25 07:51 Dose: 40 meq Sodium Chloride (0.9 % Sodium Chloride Flush 3 Ml Syringe) 3 ml IVFLUSH QSHIFT [facility] Last Admin: 01/27/25 07:51 Dose: 3 ml Sucralfate (Sucralfate Oral Suspension 1 Gm/10 Ml Oral.Susp) 1 gm PO QID SAMANTHA Trazodone HCl (Trazodone Hcl 100 Mg Tablet) 100 mg PO BEDTIME PRN PRN Reason: Insomnia Last Admin: 01/27/25 00:27 Dose: 100 mg Allergies Allergies Allergy/AdvReac Type Severity Reaction Status Date / Time No Known Allergies Allergy Verified 01/25/25 15:30 Assessment & Plan Assessment & Plan (1) Alcohol use disorder, severe, dependence: Status: Acute Code(s): F10.20 - Alcohol dependence, uncomplicated Assessment and Plan: pheno taper in place, thiamine and folate will follow up in AM, or once pain has improved to discuss WEI Total time managing care of this patient today _25___ minutes. [facility] Past Medical History Medical History (Updated 01/27/25 @ 11:43 by Heide Paul CNP) Alcohol use disorder, severe, dependence Clostridium difficile colitis Hypertension Alcohol use disorder Pancreatic insufficiency Gastroesophageal reflux disease Essential hypertension Mood disorder Cannabis use disorder Hepatitis C Tobacco use disorder Surgical History Surgical History H/O colonoscopy (~01/2023) Social History Social History Household Members: Significant Other and Other Household Members Other:: son Housing: House Do you presently have visiting nurse or other home services: No Alcohol intake: current Alcohol intake frequency: 3 or more drinks per day Alcohol type: hard liquor Comment: Pt refusing alarms, steady gait Patient Tobacco Use Status: Current everyday Tobacco user Tobacco use type: Cigarette Cigarette Packs Per Day: 0.5 Cigarettes Per Day: 10.0 e-Cigarette/Vaping Use: Never Used Patient Interested in Nicotine Replacement: No Second Hand Smoke Exposure: No Use of substances other than those prescribed or required for medical reasons: Yes Substance Use Type: Crack/Cocaine Substance Use Frequency: Occasionally Last Used Substance: Days (ago) Currently Displaying Signs/Symptoms of Drug Intoxication Withdrawal: No Have you been hit, kicked, punched, or otherwise hurt by someone within the past year? If so, by whom?: No Do you feel safe in your current relationship?: Yes Is there a partner from a previous relationship who is making you feel unsafe now?: No Are you made to feel afraid or neglected: No Advance Directives: Yes Advance Directives on File: Yes Advance Directives Date on File: 12/10/23 Do you have a plan to hurt others: No Plan Recently lost weight without trying: Yes How much weight loss: 2-13 pounds Eating poorly because of decreased appetite: Yes Nutrition screen score: 4 Nutrition Risks: Acute nausea or vomiting x1 week Patient : No service: No
[2025-01-27] MEDS: amLODIPine Besylate 5 MG TABLET PO (10:29)
[2025-01-27] MEDS: Magnesium Oxide 400 MG TABLET 800 MG PO (10:29)
[2025-01-27] MEDS: buPROPion HCl XL 150 MG TAB.ER.24H PO (10:29)
[2025-01-27] MEDS: PHENobarbitaL 30 MG TABLET PO ×2 (10:29→20:42)
[2025-01-27] MEDS: Escitalopram Oxalate 20 MG TABLET PO (10:30)
[2025-01-27] MEDS: Sucralfate Oral Suspension 1 GM/10 ML ORAL.SUSP PO ×4 (10:30→20:42)
[2025-01-27] MEDS: cloNIDine HCL 0.1 MG TABLET PO ×2 (10:42→21:38)
[2025-01-27 11:06] VITALS: BP 130/65; PULSE 73; RESP 18; TEMP 36.6; O2SAT 94
[2025-01-27] MEDS: Folic Acid 1 MG in 0.9 % Sodium Chloride 50 ML 100.4 MG IV (12:44)
[2025-01-27] MEDS: Thiamine HCL 100 MG in 0.9 % Sodium Chloride 100 ML 202 MG IV (12:45)
--- NOTE | 2025-01-27 13:56 | HO.PM.IMPN ---
Subjective Subjective Date of Service: 01/27/25 Interval History: complaining of abdominal discomfort/ back pain and diarrhea. has diarrhea for last couple months, denies nausea, no vomiting, noted to have significant hypo magnesemia and hypokalemia due to decreased by mouth intake persistent diarrhea and alcohol use. Review of Systems all other system reviewed and are negative Physical Exam Vital Signs: Vital Signs: Last Vital Signs Temp 97.8 F 01/27/25 11:06 Pulse 73 01/27/25 11:06 Resp 18 01/27/25 11:06 BP 130/65 01/27/25 11:06 Pulse Ox 94 01/27/25 11:06 O2 Del Method Room Air 01/27/25 11:06 O2 Flow Rate 2 01/26/25 06:51 BMI result Body Mass Index 19.4 Const: Other: Gen: in no acute distress HEENT: sclera anicteric, moist mucus membranes Neck: supple Lungs: clear to auscultation bilaterally Heart: regular rate and rhythm, no murmurs Abd: soft, non-distended,bs + Ext: no edema Skin: warm/well-perfused Neuro: alert and oriented x3, no focal findings Psych: appropriate affect Objective Data Active Medications Acetaminophen (Acetaminophen 325 Mg Tablet) 650 mg PO Q6H PRN PRN Reason: Pain, Mild 1-3,fever,headache Amlodipine Besylate (Amlodipine Besylate 5 Mg Tablet) 5 mg PO DAILY [facility]; Protocol Last Admin: 01/27/25 10:29 Dose: 5 mg Documented By: KAYLEE Bupropion HCl (Bupropion Hcl Xl 150 Mg Tab.Er.24h) 150 mg PO DAILY [facility] Last Admin: 01/27/25 10:29 Dose: 150 mg Documented By: KAYLEE Calcium Carbonate (Calcium Carbonate 750 Mg Tab.Chew) 750 mg PO Q4H PRN PRN Reason: Heartburn Clonidine HCl (Clonidine Hcl 0.1 Mg Tablet) 0.1 mg PO TID PRN; Protocol PRN Reason: Anxiety Last Admin: 01/27/25 10:42 Dose: 0.1 mg Documented By: KAYLEE Enoxaparin Sodium (Enoxaparin Sodium 40 Mg/0.4 Ml Syringe) 40 mg SUBCUT Q24H [facility] Last Admin: 01/26/25 16:24 Dose: 40 mg Documented By: RAJESH Escitalopram Oxalate (Escitalopram Oxalate 20 Mg Tablet) 20 mg PO DAILY [facility] Last Admin: 01/27/25 10:30 Dose: 20 mg Documented By: KAYLEE Hydromorphone HCl (Hydromorphone Hcl 0.5 Mg/0.5 Ml Syringe) 0.5 mg IVPUSH Q3H PRN; Protocol PRN Reason: Pain, Severe (Pain Scale 7-10) Last Admin: 01/27/25 10:34 Dose: 0.5 mg Documented By: KAYLEE Lactated Ringer's (Lr) 1,000 mls @ 150 mls/hr IVCONT .Q6H40M [facility] Last Admin: 01/27/25 10:39 Dose: Not Given Documented By: KAYLEE Non-Admin Reason: IV Running Thiamine HCl 100 mg/ Sodium (Chloride) 101 mls @ 202 mls/hr IV DAILY [facility] Last Infusion: 01/27/25 12:47 Dose: 0 mls/hr Documented By: KAYLEE Folic Acid 1 mg/ Sodium (Chloride) 50.2 mls @ 100.4 mls/hr IV DAILY [facility] Last Infusion: 01/27/25 13:54 Dose: Infused Documented By: KAYLEE Magnesium Hydroxide (Milk Of Magnesia 30 Ml Oral.Susp) 30 ml PO DAILY PRN PRN Reason: Constipation Magnesium Oxide (Magnesium Oxide 400 Mg Tablet) 800 mg PO DAILY [facility] Last Admin: 01/27/25 10:29 Dose: 800 mg Documented By: KAYLEE Melatonin (Melatonin 3 Mg Tablet) 6 mg PO BEDTIME PRN PRN Reason: Insomnia Nicotine (Nicotine 21 Mg Patch.Td24) 21 mg TRANSDERMA DAILY PRN PRN Reason: Nicotine Cravings Omeprazole (Omeprazole 40 Mg Capsule.Dr) 40 mg PO DAILY@0630 [facility] Ondansetron HCl (Ondansetron Hcl 4 Mg/2 Ml Vial) 4 mg IVPUSH Q8H PRN PRN Reason: Nausea and Vomiting Oxycodone HCl (Oxycodone Hcl Immed Release 5 Mg Tablet) 5 mg PO Q6H PRN PRN Reason: Pain, Moderate(Pain Scale 4-6) Last Admin: 01/27/25 08:10 Dose: 5 mg Documented By: KAYLEE Pharmacy Consult (Consult Rx Etoh Phenob Im/Po) 1 each MISCELLANE ONCE PRN; Protocol PRN Reason: Consult order Phenobarbital (Phenobarbital 30 Mg Tablet) 30 mg PO BID [facility]; Protocol Stop: 01/27/25 21:01 Last Admin: 01/27/25 10:29 Dose: 30 mg Documented By: KAYLEE Phenobarbital (Phenobarbital 15 Mg Tablet) 15 mg PO BID [facility]; Protocol Stop: 01/29/25 21:01 Phenobarbital (Phenobarbital 15 Mg Tablet) 15 mg PO DAILY [facility]; Protocol Stop: 01/31/25 09:01 Potassium Chloride (Potassium Chloride Packet 20 Meq Packet) 40 meq PO Q4H [facility] Stop: 01/27/25 19:16 Last Admin: 01/27/25 12:56 Dose: 40 meq Documented By: KAYLEE Sodium Chloride (0.9 % Sodium Chloride Flush 3 Ml Syringe) 3 ml IVFLUSH QSHIFT [facility] Last Admin: 01/27/25 07:51 Dose: 3 ml Documented By: KAYLEE Sucralfate (Sucralfate Oral Suspension 1 Gm/10 Ml Oral.Susp) 1 gm PO QID [facility] Last Admin: 01/27/25 12:56 Dose: 1 gm Documented By: KAYLEE Trazodone HCl (Trazodone Hcl 100 Mg Tablet) 100 mg PO BEDTIME PRN PRN Reason: Insomnia Last Admin: 01/27/25 00:27 Dose: 100 mg Documented By: BORA Labs 01/27/25 05:31 01/27/25 05:31 Labs: Laboratory Results - last 24 hr 01/26/25 01/27/25 13:45 05:31 MCV 96.1 MCH 34.4 H MCHC 35.8 H RDW 14.4 Plt Count 160 MPV 9.9 Immature Gran % (Auto) 0.3 Neut % (Auto) 51.6 Lymph % (Auto) 39.1 [place] % (Auto) 5.8 Eos % (Auto) 2.5 Baso % (Auto) 0.7 Lymph # (Auto) 2.3 [place] # (Auto) 0.4 Eos # (Auto) 0.2 Baso # (Auto) 0.0 Abs Immat Gran (auto) 0.02 Absolute Neuts (auto) 3.1 Absolute Nucleated RBC 0.000 Nucleated RBC % (auto) 0.0 Anion Gap 13 Estim Creat Clear Calc 121.6 Estimated GFR > 60 Fasting Glucose 78 Calcium 7.9 L Magnesium 1.1 L* Total Bilirubin 0.6 AST 38 H ALT 7 Alkaline Phosphatase 127 H Total Protein 5.2 L Albumin 2.8 L Lipase 59 Stl C. cayetanensis PCR Not Detected Stool Rotavirus A PCR Not Detected Stl Adenov F 40/41 PCR Not Detected Stool Astrovirus (PCR) Not Detected Stool Campylobacter PCR Not Detected Stool Cryptosporidium PCR Not Detected Stl Sh Tox Pr E STEC PCR Not Detected Stool E coli O157 PCR Not applicable Stl Enterotoxigenic E PCR Not Detected Stool EPEC (PCR) Not Detected Stool EAEC (PCR) Not Detected Stl E. histolytica PCR Not Detected Stool Giardia Lamblia PCR Not Detected Stl P. shigelloides PCR Not Detected Stool Salmonella PCR Not Detected Stool Sapovirus (PCR) Not Detected Stl Shigella/EIEC PCR Not Detected St Y.enterocolitica PCR Not Detected Stool Vibrio (PCR) Not Detected Stl Vibrio cholerae PCR Not Detected Stl Norovirus GI/GII PCR Not Detected Assessment and Plan (1) Alcohol use disorder, severe, dependence: Status: Acute (2) Hypokalemia: Status: Acute (3) Hypomagnesemia: Status: Acute Plan 49-year-old female with history of alcohol use disorder, C diff colitis, polysubstance abuse, recurrent pancreatitis, chronic hepatitis-C infection, GERD, hypertension, mood disorder admitted for further management of acute alcohol withdrawal with acute alcoholic pancreatitis Acute alcoholic pancreatitis -recurrent pancreatitis likely due to alcohol; lipase normalized will advance diet to low-fat full liquids add protein supplemen chills, decrease rate of IV fluid will follow GI recommendation .Alcohol use disorder and acute withdrawal - monitor on CIWA -phenobarbital per protocol - on IV thiamine and folic acid, will transition to by mouth addiction medicine consult pending Acute hypomagnesemia/hypokalemia -replete aggressively likely due to diarrhea poor nutrition alcohol use -follow renals/divalent Hypertension resume amlodipine and as needed clonidine acute leukocytosis reactive in the setting of vomiting. No sepsis ,WBC normalized history of polysubstance abuse U tox positive for opiates, oxycodone, barbiturates, cocaine and marijuana. history of hepatitis-C viral load pending GERD PPI mood disorder continue home medications Chronic diarrhea likely C diff colonization, continue contact precautions, WBC normalized DVT prophylaxis-Lovenox full code patient requires inpatient stay for management of acute alcoholic pancreatitis and acute alcohol withdrawal with known history of seizure activity related to alcohol withdrawal on phenobarbital per protocol with close monitoring on CIWA and aggressive electrolyte replacement. Quality Stroke Does the patient have a stroke diagnosis?: No VTE Prior VTE?: No VTE Risk Level:: Medical - moderate - high VTE Device Contraindication: Treatment Not Indicated VTE Drug Contraindication: N/A - Med Ordered
[2025-01-27 15:22] VITALS: BP 162/73; PULSE 70; RESP 20; TEMP 36.5; O2SAT 98
[2025-01-27] MEDS: Enoxaparin Sodium 40 MG/0.4 ML SYRINGE SUBCUT (17:17)
[2025-01-27 19:57] VITALS: BP 137/71; PULSE 72; RESP 16; TEMP 36.1; O2SAT 98
[2025-01-27 21:38] VITALS: BP 118/69
[2025-01-27] MEDS: oxyCODONE HCl Immed Release 5 MG TABLET 10 MG PO (22:55)
[2025-01-27] MEDS: Melatonin 3 MG TABLET 6 MG PO (23:31)
[2025-01-28] VITALS (7 sets, daily range): BP systolic 123–149; BP diastolic 65–78; PULSE 58–70; RESP 16–18; TEMP 36–36.9; O2SAT 96–99
[2025-01-28] MEDS: Lactated Ringers 1,000 ML 100 ML IVCONT ×2 (01:32→15:06)
[2025-01-28] MEDS: Omeprazole 40 MG CAPSULE.DR PO (06:13)
[2025-01-28] MEDS: oxyCODONE HCl Immed Release 5 MG TABLET PO ×4 (06:50→20:25)
[2025-01-28 07:37] LABS: Anion Gap 12 (12-20); Blood Urea Nitrogen < 3 mg/dL (9-16); Calcium 8.3 mg/dL (8.4-10.2); Carbon Dioxide 34 mmol/L (22-29); Chloride 101 mmol/L (96-108); Creatinine Clr Calc Pharmacy 108.7; Estimated Glomerular Filt Rate > 60; Glucose Random 118 mg/dL (60-115); Magnesium 1.2 mg/dL (1.6-2.6); Potassium 3.6 mmol/L (3.3-5.1); Sodium 143 mmol/L (135-145)
[2025-01-28] MEDS: PHENobarbitaL 15 MG TABLET PO ×2 (08:13→20:25)
[2025-01-28] MEDS: buPROPion HCl XL 150 MG TAB.ER.24H PO (08:14)
[2025-01-28] MEDS: Magnesium Oxide 400 MG TABLET PO (08:14)
[2025-01-28] MEDS: Escitalopram Oxalate 20 MG TABLET PO (08:14)
[2025-01-28] MEDS: amLODIPine Besylate 5 MG TABLET PO (08:14)
[2025-01-28] MEDS: Folic Acid 1 MG in 0.9 % Sodium Chloride 50 ML 100 MG IV (08:14)
[2025-01-28] MEDS: 0.9 % Sodium Chloride Flush 3 ML SYRINGE IVFLUSH ×3 (08:15→20:26)
[2025-01-28] MEDS: Sucralfate Oral Suspension 1 GM/10 ML ORAL.SUSP PO ×4 (08:16→20:25)
[2025-01-28] MEDS: Magnesium Sulfate/H2O 2 GM/50 ML PIGGYBACK IV ×2 (09:04→17:18)
[2025-01-28] MEDS: cloNIDine HCL 0.1 MG TABLET PO ×3 (10:23→20:25)
--- NOTE | 2025-01-28 12:39 | MHC.CM.PN ---
EMR reviewed and per MD rounds, pt is not medically cleared for discharge due to management of ETOH withdrawal.
--- NOTE | 2025-01-28 13:31 | MHC.CLN ---
PDA REPORTED PT DISLIKED ENSURE SUPPLEMENTS WILL CHANGE SUPPLEMENT TO ENSURE CLEAR TID PER PT REQUEST
--- NOTE | 2025-01-28 16:58 | HO.PM.IMPN ---
Subjective Subjective Date of Service: 01/28/25 Interval History: Being followed for acute pancreatitis/alcohol withdrawal. Feels better this morning less frequent stools. Review of Systems All other system reviewed and are negative Physical Exam Vital Signs: Vital Signs: Last Vital Signs Temp 98.4 F 01/28/25 15:38 Pulse 70 01/28/25 15:38 Resp 18 01/28/25 15:38 BP 137/69 01/28/25 15:38 Pulse Ox 96 01/28/25 15:38 O2 Del Method Room Air 01/28/25 15:38 O2 Flow Rate 2 01/26/25 06:51 BMI result Body Mass Index 19.4 Const: Other: Gen: in no acute distress HEENT: sclera anicteric, moist mucus membranes Neck: supple Lungs: clear to auscultation bilaterally Heart: regular rate and rhythm, no murmurs Abd: soft, non-distended,bs + Ext: no edema Skin: warm/well-perfused Neuro: alert and oriented x3, no focal findings Psych: appropriate affect Objective Data Active Medications Acetaminophen (Acetaminophen 325 Mg Tablet) 650 mg PO Q6H PRN PRN Reason: Pain, Mild 1-3,fever,headache Amlodipine Besylate (Amlodipine Besylate 5 Mg Tablet) 5 mg PO DAILY [facility]; Protocol Last Admin: 01/28/25 08:14 Dose: 5 mg Documented By: JANY Bupropion HCl (Bupropion Hcl Xl 150 Mg Tab.Er.24h) 150 mg PO DAILY [facility] Last Admin: 01/28/25 08:14 Dose: 150 mg Documented By: JANY Calcium Carbonate (Calcium Carbonate 750 Mg Tab.Chew) 750 mg PO Q4H PRN PRN Reason: Heartburn Clonidine HCl (Clonidine Hcl 0.1 Mg Tablet) 0.1 mg PO TID PRN; Protocol PRN Reason: Anxiety Last Admin: 01/28/25 15:03 Dose: 0.1 mg Documented By: JANY Enoxaparin Sodium (Enoxaparin Sodium 40 Mg/0.4 Ml Syringe) 40 mg SUBCUT Q24H [facility] Last Admin: 01/27/25 17:17 Dose: 40 mg Documented By: KAYLEE Escitalopram Oxalate (Escitalopram Oxalate 20 Mg Tablet) 20 mg PO DAILY [facility] Last Admin: 01/28/25 08:14 Dose: 20 mg Documented By: JANY Lactated Ringer's (Lr) 1,000 mls @ 100 mls/hr IVCONT .Q10H [facility] Last Admin: 01/28/25 15:06 Dose: 100 mls/hr Documented By: JANY Thiamine HCl 100 mg/ Sodium (Chloride) 101 mls @ 202 mls/hr IV DAILY [facility] Last Admin: 01/28/25 10:03 Dose: Not Given Documented By: JANY Non-Admin Reason: switched to PO Folic Acid 1 mg/ Sodium (Chloride) 50.2 mls @ 100.4 mls/hr IV DAILY [facility] Last Infusion: 01/28/25 08:58 Dose: Infused Documented By: JANY Magnesium Hydroxide (Milk Of Magnesia 30 Ml Oral.Susp) 30 ml PO DAILY PRN PRN Reason: Constipation Magnesium Oxide (Magnesium Oxide 400 Mg Tablet) 400 mg PO DAILY [facility] Last Admin: 01/28/25 08:14 Dose: 400 mg Documented By: JANY Melatonin (Melatonin 3 Mg Tablet) 6 mg PO BEDTIME PRN PRN Reason: Insomnia Last Admin: 01/27/25 23:31 Dose: 6 mg Documented By: RASHAAD Nicotine (Nicotine 21 Mg Patch.Td24) 21 mg TRANSDERMA DAILY PRN PRN Reason: Nicotine Cravings Omeprazole (Omeprazole 40 Mg Capsule.Dr) 40 mg PO DAILY@0630 [facility] Last Admin: 01/28/25 06:13 Dose: 40 mg Documented By: RASHAAD Ondansetron HCl (Ondansetron Hcl 4 Mg/2 Ml Vial) 4 mg IVPUSH Q8H PRN PRN Reason: Nausea and Vomiting Oxycodone HCl (Oxycodone Hcl Immed Release 5 Mg Tablet) 5 mg PO Q4H PRN PRN Reason: Pain, Moderate(Pain Scale 4-6) Last Admin: 01/28/25 15:02 Dose: 5 mg Documented By: JANY Oxycodone HCl (Oxycodone Hcl Immed Release 5 Mg Tablet) 10 mg PO ONCE PRN PRN Reason: Pain, Severe (Pain Scale 7-10) Last Admin: 01/27/25 22:55 Dose: 10 mg Documented By: THAIS Pharmacy Consult (Consult Rx Etoh Phenob Im/Po) 1 each MISCELLANE ONCE PRN; Protocol PRN Reason: Consult order Phenobarbital (Phenobarbital 15 Mg Tablet) 15 mg PO BID [facility]; Protocol Stop: 01/29/25 21:01 Last Admin: 01/28/25 08:13 Dose: 15 mg Documented By: JANY Phenobarbital (Phenobarbital 15 Mg Tablet) 15 mg PO DAILY [facility]; Protocol Stop: 01/31/25 09:01 Sodium Chloride (0.9 % Sodium Chloride Flush 3 Ml Syringe) 3 ml IVFLUSH QSHIFT [facility] Last Admin: 01/28/25 08:15 Dose: 3 ml Documented By: JANY Sucralfate (Sucralfate Oral Suspension 1 Gm/10 Ml Oral.Susp) 1 gm PO QID [facility] Last Admin: 01/28/25 13:17 Dose: 1 gm Documented By: JANY Trazodone HCl (Trazodone Hcl 100 Mg Tablet) 100 mg PO BEDTIME PRN PRN Reason: Insomnia Last Admin: 01/27/25 20:47 Dose: 100 mg Documented By: RASHAAD Labs 01/27/25 05:31 01/28/25 06:32 Labs: Laboratory Results - last 24 hr 01/28/25 06:32 Hold Purple Top SEE NOTE Anion Gap 12 Estim Creat Clear Calc 108.7 Estimated GFR > 60 Random Glucose 118 H Calcium 8.3 L Magnesium 1.2 L* Assessment and Plan (1) Alcohol use disorder, severe, dependence: Status: Acute (2) Hypokalemia: Status: Acute (3) Alcoholism: Status: Acute (4) Hypomagnesemia: Status: Acute Plan 49-year-old female with history of alcohol use disorder, C diff colitis, polysubstance abuse, recurrent pancreatitis, chronic hepatitis-C infection, GERD, hypertension, mood disorder admitted for further management of acute alcohol withdrawal with acute alcoholic pancreatitis Acute alcoholic pancreatitis -recurrent pancreatitis likely due to alcohol; lipase normalized Tolerating low-fat diet/ protein supplements, dc IV fluid GI agree with current treatment plan .Alcohol use disorder and acute withdrawal - no withdrawal symptoms -phenobarbital per protocol -change IV thiamine and folic acid, to by mouth Seen by Addiction Team Acute hypomagnesemia/hypokalemia -replete aggressively likely due to diarrhea poor nutrition alcohol use -follow renals/divalent Hypertension Continue +soup + amlodipine and as needed clonidine acute leukocytosis reactive in the setting of vomiting. No sepsis ,WBC normalized history of polysubstance abuse U tox positive for opiates, oxycodone, barbiturates, cocaine and marijuana. history of hepatitis-C viral load pending GERD PPI mood disorder continue home medications Chronic diarrhea likely C diff colonization, continue contact precautions, WBC normalized DVT prophylaxis-Lovenox full code patient requires inpatient stay for management of acute alcoholic pancreatitis and acute alcohol withdrawal with known history of seizure activity related to alcohol withdrawal on phenobarbital per protocol with close monitoring on CIWA and aggressive electrolyte replacement. Quality Stroke Does the patient have a stroke diagnosis?: No VTE Prior VTE?: No VTE Risk Level:: Medical - moderate - high VTE Device Contraindication: Treatment Not Indicated VTE Drug Contraindication: N/A - Med Ordered
[2025-01-28 16:59] LABS: HCV Log PCR <1.18 NOT DETECTED Log IU/mL (NOT DETECTED); HepC Viral Load <15 NOT DETECTED IU/mL (NOT DETECTED)
[2025-01-28] MEDS: Enoxaparin Sodium 40 MG/0.4 ML SYRINGE SUBCUT (17:18)
[2025-01-28] MEDS: traZODone HCL 100 MG TABLET PO (22:33)
[2025-01-29 03:49] VITALS: BP 163/71; PULSE 58; RESP 16; TEMP 36.2; O2SAT 97
[2025-01-29] MEDS: Omeprazole 40 MG CAPSULE.DR PO (06:02)
[2025-01-29] MEDS: oxyCODONE HCl Immed Release 5 MG TABLET PO (06:03)
[2025-01-29 07:24] LABS: Magnesium 1.5 mg/dL (1.6-2.6)
[2025-01-29 07:50] VITALS: BP 142/71; PULSE 62; RESP 18; TEMP 36.2; O2SAT 98
[2025-01-29] MEDS: Sucralfate Oral Suspension 1 GM/10 ML ORAL.SUSP PO (09:03)
[2025-01-29] MEDS: Magnesium Oxide 400 MG TABLET PO (09:03)
[2025-01-29] MEDS: amLODIPine Besylate 5 MG TABLET PO (09:04)
[2025-01-29] MEDS: Escitalopram Oxalate 20 MG TABLET PO (09:05)
[2025-01-29] MEDS: PHENobarbitaL 15 MG TABLET PO (09:05)
[2025-01-29] MEDS: buPROPion HCl XL 150 MG TAB.ER.24H PO (09:05)
[2025-01-29] MEDS: Magnesium Sulfate/H2O 2 GM/50 ML PIGGYBACK IV (09:05)
[2025-01-29] MEDS: 0.9 % Sodium Chloride Flush 3 ML SYRINGE IVFLUSH (09:06)
[2025-01-29] MEDS: cloNIDine HCL 0.1 MG TABLET PO (09:19)
[2025-01-29 11:00] VITALS: BP 110/57; PULSE 68; RESP 18; TEMP 36.5; O2SAT 98
--- NOTE | 2025-01-29 12:18 | PM.DS ---
DS: Providers Provider Date of Service: 01/29/25 Date of admission: 01/25/25 17:18 Date of discharge: 01/29/25 Primary care physician: Ayala Patton MD Consults: 01/25/25 17:37 Addiction Medicine Provider Routine Consulting Provider: Addiction Covering Reason for consultation: aud 01/25/25 17:41 Inpt - Recovery Team Routine Comment: Reason for consultation: JAM eval 01/26/25 11:35 Consult to Gastroenterology Routine Consulting Provider: Paul Jerez Reason for consultation: Acute Pancreatitis Has provider been notified: No 01/28/25 08:12 Inpt - Recovery Team Routine Comment: Reason for consultation: JAM eval DS: Diagnosis Discharge Diagnosis (1) Alcohol use disorder, severe, dependence: Status: Acute (2) Hypokalemia: Status: Acute (3) Alcoholism: Status: Acute (4) Hypomagnesemia: Status: Acute DS: Summary Hospital Course Hospital Course: History of presenting illness: Date of Service: 01/25/25 Attending physician on admission: Priyanka Martinez Chief Complaint: abd pain, n/v 49-year-old female with history of alcohol use disorder, C diff colitis, polysubstance abuse, recurrent pancreatitis, chronic hepatitis-C infection, hypertension, mood disorder presents to the ED complaining of severe epigastric pain radiating around the left side associated with nausea and nonbloody vomiting x5 with decreased appetite progressively worsening over the last 2 weeks. She also states that she has had nonbloody diarrhea ongoing for weeks. Also reports feeling of incomplete bladder emptying but no dysuria or hematuria or increased frequency. No fevers or chills. No sick contacts. Denies eating any bad foods. No recent antibiotics except for the p.o. vancomycin which she completed during admission with discharge on 11/01. She reports drinking 4-5 shots on a daily basis, last drink was last night at 21:00. She does have history of severe alcohol withdrawal including withdrawal seizures. Currently reporting tremors, nausea, vomiting, reports some confusion but is oriented x3 As well as anxiety / agitation. Denies any AH/VH. She denies any other substance use. She does currently smoke 1/2 pack of cigarettes on a daily basis. On arrival, patient hypertensive to 184/79 148/64 on admission. She is afebrile. She has a leukocytosis of 15.1. Renal function baseline. Hypokalemia with potassium 2.4. Hypomagnesemia with Mag level 0.9. Otherwise electrolytes within normal limits. Total bilirubin 0.7, AST 62, ALT undetectable, alkaline phosphatase 179. Lipase elevated at 440. Ethyl alcohol level undetectable. Urine drug screen pending. CT abdomen/pelvis deferred given patient has known hx of pancreatitis and has had [address] in the last year. Given clinical picture and elevated lipase with acute alcohol withdrawal, pt will be admitted for further management. Leukocytosis resolved. Hospital course: 49-year-old female with history of alcohol use disorder, C diff colitis, polysubstance abuse, recurrent pancreatitis, chronic hepatitis-C infection, GERD, hypertension, mood disorder admitted for further management of acute alcohol withdrawal with acute alcoholic pancreatitis Acute alcoholic recurrent pancreatitis, likely due to alcohol use, patient treated with bowel rest IV fluid IV analgesics and IV fluids lipase normalized abdominal pain improved currently tolerating low-fat diet strongly recommend to abstain from alcohol, seen by GI and they agreed with the above treatment plan. Alcohol use disorder and acute withdrawal treated with phenobarb protocol, IV thiamine and folic acid, patient ambulating with steady gait no tremors seen by Addiction Team outpatient referral for [facility] and strongly advise patient to have completely abstain from alcohol. Acute hypomagnesemia/hypokalemia likely due to poor nutrition repleted and normalized, recommend to continue magnesium supplement and eat food rich in magnesium. Hypertension stable BP continue home medications History of polysubstance abuse U tox positive for opiates, oxycodone, barbiturates, cocaine and marijuana, as per patient she took only 1 dose of Percocet and had 1 time cocaine.. history of hepatitis-C viral load less than 15 not detected GERD PPI Mood Disorder continue home medications Chronic diarrhea likely C diff colonization, continue contact precautions, WBC normalized and diarrhea resolved. Done Time Attestation Discharge Coordination Time (in mins): 40 Quality: Safe Use of Opioids Does Pt have an Active Cancer Diagnosis on the Problem List?: No Quality: Stroke Does the patient have a stroke diagnosis?: No Physical Exam Vital Signs: Vital Signs: Last Vital Signs Temp 97.7 F 01/29/25 11:00 Pulse 68 01/29/25 11:00 Resp 18 01/29/25 11:00 BP 110/57 L 01/29/25 11:00 Pulse Ox 98 01/29/25 11:00 O2 Del Method Room Air 01/29/25 11:00 O2 Flow Rate 2 01/26/25 06:51 BMI result Body Mass Index 19.4 Const: Other: Gen: in no acute distress HEENT: sclera anicteric, moist mucus membranes Neck: supple Lungs: clear to auscultation bilaterally Heart: regular rate and rhythm, no murmurs Abd: soft, non-distended,bs +, nontender Ext: no edema Skin: warm/well-perfused Neuro: alert and oriented x3, no focal findings Psych: appropriate affect DS: Data Data Completed and Pending Completed studies during hospitalization [Text1]: Procedures Detoxification Services for Substance Abuse Treatment (11/21/24) Labs on day of discharge: Laboratory Results - last 24 hr 01/26/25 01/29/25 06:16 06:39 Hold Purple Top SEE NOTE Magnesium 1.5 L Hep C Viral Load <15 NOT DETECTED Hep C Viral Load Log <1.18 NOT DETECTED Discharge Plan Discharge Anticipated Discharge Date/Time: 01/29/25 08:47 Patient Disposition: Home, Self-Care Discharge Diagnosis: Acute alcoholic pancreatitis Alcohol use disorder/withdrawal Acute hypo magnesemia/hypokalemia Referrals: [facility] [Provider Group] - 1 Day ([facility] will call to schedule an appointment. Please reach out to them if needed. ) Ayala Patton MD [Primary Care Provider] - 1 Week Discharge Medications: Continued naltrexone 50 mg tablet 50 mg PO DAILY Qty: 90 0RF pantoprazole 40 mg tablet,delayed release (DR/EC) 40 mg PO DAILY@0630 folic acid 1 mg tablet 1 mg PO DAILY cholecalciferol (vitamin D3) 50 mcg (2,000 unit) tablet 50 mcg PO DAILY clonidine HCl 0.1 mg tablet 0.1 mg PO TID PRN (Reason: Anxiety) citalopram 40 mg tablet 40 mg PO DAILY amlodipine 5 mg Tablet 5 mg PO DAILY Qty: 90 0RF Protocol: Hold for SBP< HOLD for SBP < : 90 thiamine HCl (vitamin B1) 100 mg tablet 100 mg PO DAILY trazodone 100 mg tablet 100 mg PO BEDTIME PRN (Reason: insomnia) bupropion HCl 150 mg tablet extended release 24 hr 150 mg PO DAILY magnesium oxide 400 mg magnesium tablet 400 mg PO BID Qty: 60 0RF sucralfate 100 mg/mL suspension 10 ml PO QID Discharge Orders: Discharge Order (Routine); Ordered 01/29/25 Ordered By: Javon Moy Diet: Advance to usual diet Activity on Discharge: As tolerated Stand Alone Forms: Patient Portal Discharge page Print Language: Cymraes Care Plan Goals: Recommend follow-up at [facility], follow written resources Strongly recommend to abstain from alcohol Recommend high-protein diet including dairy products , Lentils,meat , protein shakes, protein bars Recommend foods rich in magnesium including banana, dark chocolate and nuts Acute pancreatitis due to alcohol use resolved, high risk for recurrent pancreatitis if continued to drink therefore strongly recommend complete abstinence from alcohol. Health Concerns: Take all home medications as before Plan of Treatment: Outpatient follow-up with primary care physician call for appointment in 1-2 weeks Assessment: as above
[2025-01-29 12:37] LABS: Magnesium 2.3 mg/dL (1.6-2.6)
--- NOTE | 2025-01-29 13:52 | MHC.CM.PN ---
Patient has been medically cleared for dc to home today, self care.
== END 2025-01-29 14:20 | disposition home or self-care (01) | DRG 282 ==
LOC: HO.ED 17:04 → HO.EDOVER 17:39 → HO.IMC 01-26 02:25
PROVIDERS: Hospitalist; Nurse Practitioner Family; Admitting Provider Physician Assistant; Emergency Provider Emergency Medicine; PCP Internal Medicine; Visit Provider Hospitalist
DX: K85.20 Alcohol induced acute pancreatitis without necrosis or infection (principal); E83.42 Hypomagnesemia; E87.6 Hypokalemia; F19.10 Other psychoactive substance abuse, uncomplicated; F10.239 Alcohol dependence with withdrawal, unspecified; F17.210 Nicotine dependence, cigarettes, uncomplicated; K52.9 Noninfective gastroenteritis and colitis, unspecified; K21.9 Gastro-esophageal reflux disease without esophagitis; Z20.822 Contact with and (suspected) exposure to COVID-19; Z86.19 Personal history of other infectious and parasitic diseases; Z71.6 Tobacco abuse counseling; Z79.899 Other long term (current) drug therapy
CPT/HCPCS: 0241U; 36415; 80048; 80053; 80307; 81003; 83690; 83735; 84484; 85025; 86140; 87324; 87493; 87507; 87522; 93005; 99285; J1171; J1200; J1650; J2270; J2560; J2765; J3411; J3475; J3480; J7120; S9485

== ENCOUNTER → 2025-01-25 15:21 | Outpatient (BNV) | payer OTHER, SELFPAY | PROVIDERS: Admitting Provider Physician Assistant; Emergency Provider Emergency Medicine; PCP Internal Medicine; Visit Provider Internal Medicine | DX: I49.3 Ventricular premature depolarization (principal) | CPT/HCPCS: 93010 ==

== ENCOUNTER → 2025-01-25 17:18 | Outpatient (BNV) | payer OTHER, SELFPAY | PROVIDERS: Admitting Provider Physician Assistant; Emergency Provider Emergency Medicine; PCP Internal Medicine; Visit Provider Internal Medicine Gastroenterology | DX: K85.90 Acute pancreatitis without necrosis or infection, unspecified (principal); F10.20 Alcohol dependence, uncomplicated | CPT/HCPCS: 99222 ==

== ENCOUNTER → 2025-01-25 17:18 | Outpatient (BNV) | payer OTHER, SELFPAY | PROVIDERS: Admitting Provider Physician Assistant; Emergency Provider Emergency Medicine; PCP Internal Medicine; Visit Provider Physician Assistant | DX: F10.20 Alcohol dependence, uncomplicated (principal); E87.6 Hypokalemia; E83.42 Hypomagnesemia | CPT/HCPCS: 99223; 99233; 99239 ==

== ENCOUNTER → 2025-01-25 17:18 | Outpatient (BNV) | payer OTHER, SELFPAY | PROVIDERS: Admitting Provider Physician Assistant; Emergency Provider Emergency Medicine; PCP Internal Medicine; Visit Provider Nurse Practitioner Psychiatric/Mental Health | DX: F10.20 Alcohol dependence, uncomplicated (principal) | CPT/HCPCS: 99231 ==

== ENCOUNTER 2025-04-14 20:43 | Inpatient (IN) | payer OTHER, SELFPAY ==
--- NOTE | ~2025-04-14 | US_ITS ---
EXAMINATION: US TRIPLEX LOWER EXTREMITY, BILATERAL CLINICAL INFORMATION: Pain, bilateral lower extremities. COMPARISON: None available. TECHNIQUE: Color-flow triplex imaging with spectral analysis and compression Doppler were performed on the bilateral lower extremities. FINDINGS: Respiratory variation, normal compression and augmented flow are present throughout the interrogated common femoral vein, superficial femoral vein, profunda femoral vein, popliteal vein and midcalf peroneal and posterior tibial venous segments, bilaterally. There is no Wu's cyst. US/US venous duplex LE BI IMPRESSION: No acute deep venous thrombosis interrogated veins, bilateral lower extremities. Negative for DVT. Electronically signed by: Basil Dickey MD 04/15/2025 08:08 AM EDT
--- NOTE | ~2025-04-14 | CT_ITS ---
EXAMINATION: CT ABDOMEN AND PELVIS WITH CONTRAST CLINICAL INFORMATION: Abdominal pain, diarrhea, C diff +, h/o pancreatitis DLP: 397 mGY*cm COMPARISON: November 17, 2024 TECHNIQUE: Multidetector volumetric images were obtained from the superior aspect of the liver through the pubic symphysis following administration 85 mL of Omnipaque 350 intravenous contrast. Sagittal and coronal reformatted images were obtained on the technologist's workstation. Oral contrast: No This CT examination was performed using dose optimization techniques as appropriate, variously including the following: *Automated exposure control *Adjustment of mA and/or kV according to patient size (this includes techniques or standardized protocols for targeted exams where dose is matched to indication/reason for exam; i.e. extremities or head) *Use of iterative reconstruction technique FINDINGS: LUNG BASES: Trace right pleural effusion is noted along with minimal dependent atelectasis. LIVER, GALLBLADDER, AND BILIARY TREE: Diffuse fatty changes are present in the liver. There is evidence of the gallbladder wall without wall thickening or visible stones. No biliary ductal dilation. PANCREAS: Pancreas is well-defined without Peripancreatic fat stranding or fluid. Pancreatic duct is visible. SPLEEN: Unremarkable. ADRENAL GLANDS: Unremarkable. KIDNEYS AND URETERS: The kidneys are normal in size, shape, and attenuation. No hydronephrosis, hydroureter, or calculi seen. No perinephric stranding. BLADDER: Unremarkable. GASTROINTESTINAL TRACT: The gastric antrum appears thick walled which could be due to nondistention or wall edema. Jejunal loops appear thick walled as well. Terminal ileum appears subjectively thick-walled. There is wall thickening in the right colon from cecum to the transverse colon, just left of midline. There is also likely thickening of the rectosigmoid junction and rectal mucosa. There is trace free fluid in the pelvis. There are pseudodiverticula in the region of the cecum, descending colon, and sigmoid colon. ABDOMINAL WALL: There is focal gas in the deep and superficial subcutaneous soft tissues in the left lower abdomen, superficial to the rectus abdominis muscle. This was present on the prior examination in likely due to insulin injection. LYMPH NODES: Normal. VASCULAR: Moderate atherosclerotic calcifications are visible in the abdominal aorta, common iliac, and common femoral arteries. Contrast opacifies the celiac, SMA, and OLE. PELVIC VISCERA: There is an IUD within the uterus. Adnexa are unremarkable. OSSEOUS STRUCTURES: T10-11 demonstrates severe disc space narrowing with endplate sclerosis and osteophytes. There is a sacralized L5 segment with incomplete disc space at L5-S1. CT/CT abdomen pelvis w IV con IMPRESSION: There is bowel wall thickening. Involvement includes, likely the gastric antrum, proximal jejunum, terminal ileum, right colon through the mid transverse colon, rectosigmoid junction, and rectum. Etiologies could include infection, inflammatory bowel disease/Crohn's disease, ischemia, and less likely neoplasm. There is trace ascites. No free air was evident. Fatty liver. Trace right pleural effusion. Moderate atherosclerotic disease. Visible blood flow was present in the celiac artery, SMA, and OLE. IUD. Dr. Dilip Sherwood contacted. Electronically signed by: Clinton Dodson MD 04/15/2025 01:54 PM EDT
[2025-04-14 21:19] VITALS: BP 87/47; PULSE 57; RESP 16; TEMP 36.8; O2SAT 95; BMI 18.4
--- NOTE | 2025-04-14 21:22 | ECG_ITS ---
Test Reason : LOW K/ETOH Blood Pressure : */* mmHG Vent. Rate : 54 BPM Atrial Rate : 54 BPM P-R Int : 134 ms QRS Dur : 94 ms QT Int : 662 ms P-R-T Axes : -17 36 19 degrees QTcB Int : 627 ms Sinus bradycardia Nonspecific ST abnormality Prolonged QT Abnormal ECG When compared with ECG of 25-Jan-2025 15:21, Premature ventricular complexes are no longer Present Vent. rate has decreased by 44 bpm Nonspecific T wave abnormality no longer evident in Lateral leads QT has lengthened Referred By: Zainab Ramirez Electronically Signed By: Louie Last
--- NOTE | 2025-04-14 21:23 | ED.RECABL ---
HPI - Recheck/Abnormal Lab/Rx General Chief Complaint: Recheck/Abnormal Lab/Rx Stated Complaint: Abnormal labs/ Potassium at 1.9 as per PCP Time Seen by Provider: 04/14/25 21:37 Source: patient and old records reviewed Mode of arrival: ambulatory Limitations: no limitations History of Present Illness ED Provider: Dr. Milly Whipple HPI narrative: 49-year-old female with history of alcohol use disorder, cocaine abuse presenting with reportedly low potassium and magnesium levels. Patient reports that she had been seeing her primary care doctor in follow-up from a previous admission to the hospital. Had blood work drawn and was told to come to the emergency department at 8:00 p.m. tonight when her potassium was found to be 1.9 and her magnesium was also reportedly low. Admits that this has been a chronic issue for her. She has been drinking alcohol daily for years. Drinks approximately 5-6 shots of hard liquor daily. Admits that this is actually cutting back from her previous 10 shots of liquor per day. She does have some symptoms of withdrawal but has not had an alcohol withdrawal seizure. Admits to having poor appetite and food intake for the last several weeks. Preferentially drinks alcohol instead of eating nutrition. Describes epigastric discomfort, nausea and vomiting, daily diarrhea. No hematochezia or melena. Last use of cocaine was earlier today. Also uses marijuana. Related Data Home Medications ?Medication ?Instructions ?Recorded ?Confirmed cholecalciferol (vitamin D3) 50 50 mcg PO DAILY 11/01/23 01/26/25 mcg (2,000 unit) tablet folic acid 1 mg tablet 1 mg PO DAILY 11/01/23 01/26/25 pantoprazole 40 mg tablet,delayed 40 mg PO DAILY@0630 11/01/23 01/26/25 release clonidine HCl 0.1 mg tablet 0.1 mg PO TID PRN Anxiety 12/10/23 01/26/25 citalopram 40 mg tablet 40 mg PO DAILY 02/26/24 01/26/25 thiamine HCl (vitamin B1) 100 mg 100 mg PO DAILY 09/26/24 01/26/25 tablet trazodone 100 mg tablet 100 mg PO BEDTIME PRN insomnia 10/27/24 01/26/25 bupropion HCl 150 mg 24 hr tablet, 150 mg PO DAILY 11/21/24 01/26/25 extended release sucralfate 100 mg/mL oral 10 ml PO QID 01/26/25 01/26/25 suspension Previous Rx's ?Medication ?Instructions ?Recorded amlodipine 5 mg tablet 5 mg PO DAILY #90 tabs 06/11/24 naltrexone 50 mg tablet 50 mg PO DAILY #90 tabs 10/07/24 magnesium oxide 400 mg PO BID #60 tabs 11/25/24 Allergies Allergy/AdvReac Type Severity Reaction Status Date / Time No Known Allergies Allergy Verified 04/14/25 21:24 Review of Systems Review of Systems: Yes all other systems are reviewed and are negative [facility] Past Medical History Attestation statement: The following information was validated with the patient. Source: old records reviewed Medical History Alcohol use disorder, severe, dependence Clostridium difficile colitis Hypertension Alcohol use disorder Pancreatic insufficiency Gastroesophageal reflux disease Essential hypertension Mood disorder Cannabis use disorder Hepatitis C Tobacco use disorder Surgical History H/O colonoscopy (~01/2023) Social History Social History Household Members: Significant Other and Other Household Members Other:: son Housing: House Do you presently have visiting nurse or other home services: No Alcohol intake: current Alcohol intake frequency: other Alcohol type: hard liquor Comment: Pt refusing alarms, steady gait Patient Tobacco Use Status: Current everyday Tobacco user Tobacco use type: Cigarette Cigarette Packs Per Day: 0.5 Cigarettes Per Day: 10.0 Smoked in Last 30 Days: Yes e-Cigarette/Vaping Use: Never Used Second Hand Smoke Exposure: No Use of substances other than those prescribed or required for medical reasons: Yes Substance Use Type: Crack/Cocaine and Marijuana Advance Directives: Yes Advance Directives on File: Yes Advance Directives Date on File: 12/10/23 Do you have a plan to hurt others: No Plan service: No Physical Exam Vital Signs: Vital Signs: Last Vital Signs Temp 98.4 F 04/15/25 06:16 Pulse 58 04/15/25 06:16 Resp 19 04/15/25 06:16 BP 150/72 H 04/15/25 06:16 Pulse Ox 97 04/15/25 06:16 O2 Del Method Room Air 04/15/25 06:16 BMI result Body Mass Index 18.4 GENERAL: Appears intoxicated, GCS 13, eyes open to voice, slurred speech, no acute distress. SKIN: Normal skin color for ethnicity, warm, dry, no rashes noted. HEENT: Normocephalic, atraumatic, no stridor, posterior oropharynx nonerythematous, dentition intact, EOMI. NECK: Soft, supple, no step-offs, no deformities, no lymphadenopathy. CHEST: Heart regular rhythm, no murmurs, symmetric chest rise and fall. PULMONARY: Clear to auscultation bilaterally, diminished at the bases, no labored breathing, no wheezes/rhales/rhonchi. ABDOMINAL: Soft, nondistended, positive bowel sounds in all quadrants. : Deferred. MUSCULOSKELETAL: Normal tone, full range of motion, no deformities, no peripheral edema. NEURO: GCS 13, eyes open to voice, slightly slurred speech, CN II through XII intact, equal strength and sensation bilateral upper and lower extremities, no focal neurologic deficits. PSYCHIATRIC: Flat affect, poor eye contact. Course Course Course Narrative: 49 yo female with PMH of alcohol use disorder who drinks 5 or 6 drinks a day, hypokalemia and hypomagnesemia, pancreatitis, mood disoder, cocaine abuse disorder who reports she feels tired and weak for a few weeks and finally went to her PCP today and they noted low mag and a K of 1.9. She hasn't been compliant with all of her medications. She has had black stools as well. She notes she did not take any of her medications tonight. She feels weak/tired/cramps. At this time will obtain labs, EKG, start on IV magnesium. this is a RAPID medical screening exam the rest of the history and physical exam is to be done by the main provider. JORGE A 924pm 04/14/25 Reevaluation(s) Reevaluation #1: Signing out to oncoming provider pending repeat potassium levels, ambulatory trial and final disposition. Patient is currently sleeping after a dose of Valium. Time: 02:30 Medications Administered Discontinued Medications Generic Name Dose Route Start Last Admin Trade Name Freq PRN Reason Stop Dose Admin Diazepam 2.5 mg 04/15/25 00:17 04/15/25 00:32 Diazepam 10 Mg/2 Ml Cartridge IVPUSH 04/15/25 00:18 2.5 mg STAT STA Administration Magnesium Sulfate 2 gm in 50 mls @ 25 mls/hr 04/14/25 21:22 04/14/25 23:22 Magnesium Sulfate/H2o IV 04/14/25 23:21 Infused ONCE ONE Infusion Thiamine HCl 200 mg/ Sodium 102 mls @ 204 mls/hr 04/14/25 21:22 04/14/25 22:33 Chloride IV 04/14/25 21:51 Infused ONCE ONE Infusion Lactated Ringer's 1,000 mls @ 999 mls/hr 04/14/25 21:25 04/15/25 00:36 Lr IV 04/14/25 22:25 Infused .Q1H1M ONE Infusion Potassium Chloride 10 meq in 100 mls @ 100 mls/hr 04/14/25 22:45 04/15/25 04:00 Potassium Chloride/H20 IV 04/15/25 02:44 Infused Q1H SAMANTHA Infusion Pantoprazole Sodium 40 mg 04/14/25 21:26 04/14/25 21:55 Pantoprazole Sodium 40 Mg/10 Ml Vial IVPUSH 04/14/25 21:27 40 mg ONCE ONE Administration Medical Decision Making Medical Decision Making MDM Narrative: 49-year-old female with alcohol use disorder, cocaine abuse presenting with abnormal blood work from an outpatient source. She is hypotensive though the patient is chronically hypotensive due to her size and general poor nutritional status. She is somewhat cachectic. She will receive IV fluids, repletion of magnesium and potassium. She is complaining of muscle cramps in her legs a an epigastric discomfort. No active vomiting here in the emergency department. Please see paper chart for down time documentation Initially, patient's potassium was 1.9, improved to 2.2. Magnesium initially 1.4 then 1.3 Overall, not much improvement. However, patient is receiving another dose of p.o. potassium and IV magnesium. Orders were written in paper. Unlikely to be visible in the electronic medical record. Second run of repletion includes 80 mEq of potassium p.o. and 2 g of magnesium IV Vitals stable I discussed the patient with Dr. Heath, patient being admitted Differential Diagnosis Differential Diagnoses: The differential diagnosis associated with the presentation includes (Lab error, hypokalemia, hypomagnesemia, alcohol use disorder, alcoholic gastritis, renal insufficiency, GI losses, among many others) Lab Data MDM Lab Attestation statement: I reviewed the patient's lab results. 04/14/25 21:50 04/15/25 05:00 Labs: Lab Results 04/14/25 04/14/25 04/15/25 Range/Units 21:50 21:58 05:00 WBC 7.4 (4.8-10.8) X10*3/uL RBC 3.53 L (4.20-5.50) X10*6/uL Hgb 12.1 (12.0-16.0) g/dl Hct 33.5 L (37.0-47.0) % MCV 94.9 (80.0-98.0) fL MCH 34.3 H (27.0-33.0) pg MCHC 36.1 H (31.0-35.0) g/dl RDW 13.8 (11.0-16.0) % Plt Count 181 (160-400) X10*3/uL MPV 10.2 (9.4-12.3) fL Immature Gran % (Auto) 0.3 (0.0-0.4) % Neut % (Auto) 55.9 (45-73) % Lymph % (Auto) 36.8 (20-40) % Ray % (Auto) 5.6 (2-11) % Eos % (Auto) 0.9 (0-4) % Baso % (Auto) 0.5 (0-2) % Lymph # (Auto) 2.7 (1.2-4.9) X10*3/uL Ray # (Auto) 0.4 (0.1-1.2) X10*3/uL Eos # (Auto) 0.1 (0.0-0.4) X10*3/uL Baso # (Auto) 0.0 (0.0-0.2) X10*3/uL Abs Immat Gran (auto) 0.02 (0.00-0.03) X10*3/uL Absolute Neuts (auto) 4.1 (2.0-8.3) x10*3/uL Absolute Nucleated RBC 0.000 (0.0-0.012) X10*3/uL Nucleated RBC % (auto) 0.0 (0.0-0.2) /100WBC Sodium 144 147 H (135-145) mmol/L Potassium 1.9 L* D 2.2 L* (3.3-5.1) mmol/L Chloride 108 114 H (96-108) mmol/L Carbon Dioxide 27 23 (22-29) mmol/L Anion Gap 11 L 12 (12-20) BUN 3 L < 3 L (9-16) mg/dL Creatinine 0.47 L (0.5-1.4) mg/dL Estim Creat Clear Calc 109.8 Estimated GFR > 60 Random Glucose 76 89 (60-115) mg/dL Calcium 8.2 L 7.4 L D (8.4-10.2) mg/dL Magnesium 1.4 L* 1.3 L* (1.6-2.6) mg/dL Total Bilirubin 0.6 (0.0-1.0) mg/dL Direct Bilirubin 0.3 (0.0-0.5) mg/dL AST 181 H (5-31) U/L ALT 64 H (0-31) U/L Alkaline Phosphatase 173 H (39-117) U/L Total Protein 5.3 L (6.5-8.0) g/dL Albumin 3.1 L (3.5-5.0) g/dL Lipase 23 (8-78) U/L Hold Green Top See Note Ethyl Alcohol 131 mg/dL Blood Type O Positive Antibody Screen NEGATIVE Critical Care Time Critical Care Time Critical Care Time: Yes Total Critical Care Time: 75 Attestation: I have personally provided critical care time. Time includes review of lab data, radiology results, discussion with consultants, and monitoring for potential decompensation. Intervention performed as documented. Discharge Plan Discharge Clinical Impression: Hypomagnesemia, Acute hypokalemia Patient Disposition: Admitted As Inpatient Print Language: Marshallese
[2025-04-14] MEDS: Lactated Ringers 1,000 ML 999 ML IV (21:52)
[2025-04-14] MEDS: Thiamine HCL 200 MG in 0.9 % Sodium Chloride 100 ML 204 MG IV (21:55)
[2025-04-14] MEDS: Pantoprazole Sodium 40 MG/10 ML VIAL IVPUSH (21:55)
[2025-04-14 21:56] LABS: MANUAL DIFF FLAG NO
[2025-04-14 21:58] LABS: Basophils Percent Auto 0.5 % (0-2); Eosinophils Absolute Auto 0.1 X10*3/uL (0.0-0.4); Eosinophils Percent Auto 0.9 % (0-4); Hematocrit 33.5 % (37.0-47.0); Hemoglobin 12.1 g/dl (12.0-16.0); Imm Gran Abs Auto 0.02 X10*3/uL (0.00-0.03); Imm Gran Pct Auto 0.3 % (0.0-0.4); Lymphocytes Absolute Auto 2.7 X10*3/uL (1.2-4.9); Lymphocytes Percent Auto 36.8 % (20-40); Mean Corpuscular HGB Conc 36.1 g/dl (31.0-35.0); Mean Corpuscular Hemoglobin 34.3 pg (27.0-33.0); Mean Corpuscular Volume 94.9 fL (80.0-98.0); Mean Platelet Volume 10.2 fL (9.4-12.3); Monocytes Absolute Auto 0.4 X10*3/uL (0.1-1.2); Monocytes Percent Auto 5.6 % (2-11); Neutrophils Absolute Auto 4.1 x10*3/uL (2.0-8.3); Neutrophils Percent Auto 55.9 % (45-73); Platelet Count 181 X10*3/uL (160-400); Red Blood Count 3.53 X10*6/uL (4.20-5.50); Red Cell Distribution Width 13.8 % (11.0-16.0); White Blood Count 7.4 X10*3/uL (4.8-10.8)
[2025-04-14] MEDS: Magnesium Sulfate/H2O 2 GM/50 ML PIGGYBACK IV (22:00)
[2025-04-14 22:12] LABS: Ethanol 131 mg/dL
[2025-04-14 22:29] LABS: Alanine Aminotransferase 64 U/L (0-31); Albumin Level 3.1 g/dL (3.5-5.0); Alkaline Phosphatase 173 U/L (39-117); Anion Gap 11 (12-20); Aspartate Amino Transferase 181 U/L (5-31); Bilirubin Direct 0.3 mg/dL (0.0-0.5); Bilirubin Total 0.6 mg/dL (0.0-1.0); Blood Urea Nitrogen 3 mg/dL (9-16); Calcium 8.2 mg/dL (8.4-10.2); Carbon Dioxide 27 mmol/L (22-29); Chloride 108 mmol/L (96-108); Creatinine Clr Calc Pharmacy 109.8; Estimated Glomerular Filt Rate > 60; Glucose Random 76 mg/dL (60-115); Lipase 23 U/L (8-78); Magnesium 1.4 mg/dL (1.6-2.6); Potassium 1.9 mmol/L (3.3-5.1); Sodium 144 mmol/L (135-145); Total Protein 5.3 g/dL (6.5-8.0)
[2025-04-14] MEDS: Potassium Chloride/H20 10 MEQ/100 ML PIGGYBACK 100 MEQ IV (23:21)
[2025-04-15 00:29] VITALS: BP 110/64; PULSE 58; RESP 14; O2SAT 97
[2025-04-15] MEDS: diazePAM 10 MG/2 ML CARTRIDGE 2.5 MG IVPUSH (00:32)
[2025-04-15] MEDS: Potassium Chloride/H20 10 MEQ/100 ML PIGGYBACK 100 MEQ IV ×7 (01:06→23:59)
[2025-04-15 06:16] VITALS: BP 150/72; PULSE 58; RESP 19; TEMP 36.9; O2SAT 97
[2025-04-15 06:16] LABS: Anion Gap 12 (12-20); Blood Urea Nitrogen < 3 mg/dL (9-16); Calcium 7.4 mg/dL (8.4-10.2); Carbon Dioxide 23 mmol/L (22-29); Chloride 114 mmol/L (96-108); Glucose Random 89 mg/dL (60-115); Magnesium 1.3 mg/dL (1.6-2.6); Potassium 2.2 mmol/L (3.3-5.1); Sodium 147 mmol/L (135-145)
--- NOTE | 2025-04-15 06:24 | PM.IMHP ---
History of Present Illness Date of Service: 04/15/25 Attending physician on admission: Jeremias Heath Chief Complaint: Abnormal labs Patient is a 49-year-old female with a past medical history significant for alcohol use disorder with history of alcohol withdrawal and seizures, cocaine use disorder, history C diff, pancreatitis, hypertension, and mood disorder, who presented to the ED by her PCP due to abnormal labs. The patient reports that she has had diarrhea and lower abdominal pain for the past few days and has been having diarrhea at least 8 times a day, loose without any blood or melena. She denies any nausea or vomiting. Her pain is mostly in the epigastric region. She also complains of bilateral leg pain which she describes as aching. She denies any recent injuries or falls. She also denies any recent antibiotics or travel. She usually drinks about 5-6 shots of hard liquor daily, last drink was yesterday. She reports poor appetite and p.o. intake for the past few weeks. Last cocaine use was earlier today. The patient does report nausea and vomiting to the ED provider but denied this when asked by me. The patient is a very poor historian. Review of Systems Constitutional: Constitutional: Denies chills, Denies fatigue, Denies fever(s) and Reports headache(s) Eyes: Eyes: Denies blurry vision and Denies change in vision ENT: Denies dizziness, Reports headache(s) and Denies sinus pressure Cardiovascular: Cardiovascular: Denies chest pain, Denies rapid heart rate, Denies leg edema, Denies lightheadedness and Denies dyspnea Respiratory: Respiratory: Denies chest congestion, Denies cough, Denies dyspnea and Denies wheezing Gastrointestinal: Gastrointestinal: Reports as per HPI Genitourinary: Genitourinary: Denies dysuria and Denies urinary urgency Musculoskeletal: Comments: bilateral leg pain Neurologic: Denies confusion, Denies dizziness and Reports headache(s) Psychiatric: Psychiatric: Denies confusion Endocrine: Endocrine: Denies fatigue Hematologic/Lymphatic: Hematologic/Lymphatic: Denies easy bleeding and Denies easy bruising Allergic/Immunologic: Allergic/Immunologic: Denies wheezing [facility] Medical History Alcohol use disorder, severe, dependence Clostridium difficile colitis Hypertension Alcohol use disorder Pancreatic insufficiency Gastroesophageal reflux disease Essential hypertension Mood disorder Cannabis use disorder Hepatitis C Tobacco use disorder Functional capacity: independent ambulation Surgical History H/O colonoscopy (~01/2023) Social History Household Members: Significant Other and Other Household Members Other:: son Housing: House Do you presently have visiting nurse or other home services: No Alcohol intake: current Alcohol intake frequency: other Alcohol type: hard liquor Comment: Pt refusing alarms, steady gait Patient Tobacco Use Status: Current everyday Tobacco user Tobacco use type: Cigarette Cigarette Packs Per Day: 0.5 Cigarettes Per Day: 10.0 Smoked in Last 30 Days: Yes e-Cigarette/Vaping Use: Never Used Second Hand Smoke Exposure: No Use of substances other than those prescribed or required for medical reasons: Yes Substance Use Type: Crack/Cocaine and Marijuana Advance Directives: Yes Advance Directives on File: Yes Advance Directives Date on File: 12/10/23 Do you have a plan to hurt others: No Plan service: No Narrative: 5-6 shots/day. cocaine use, last [employer]. no smoking. Meds Allergies Allergy/AdvReac Type Severity Reaction Status Date / Time No Known Allergies Allergy Verified 04/14/25 21:24 Active Medications: Current Medications Acetaminophen (Acetaminophen 325 Mg Tablet) 975 mg PO Q6H PRN PRN Reason: Pain, Mild 1-3,fever,headache Calcium Carbonate (Calcium Carbonate 750 Mg Tab.Chew) 750 mg PO Q4H PRN PRN Reason: Heartburn Enoxaparin Sodium (Enoxaparin Sodium 40 Mg/0.4 Ml Syringe) 40 mg SUBCUT Q24H SAMANTHA Magnesium Hydroxide (Milk Of Magnesia 30 Ml Oral.Susp) 30 ml PO DAILY PRN PRN Reason: Constipation Melatonin (Melatonin 3 Mg Tablet) 6 mg PO BEDTIME PRN PRN Reason: Insomnia Morphine Sulfate (Morphine Sulfate 4 Mg/Ml Cartridge) 2 mg IVPUSH Q4H PRN; Protocol PRN Reason: Pain, Severe (Pain Scale 7-10) Oxycodone HCl (Oxycodone Hcl Immed Release 5 Mg Tablet) 5 mg PO Q6H PRN PRN Reason: Pain, Moderate(Pain Scale 4-6) Pantoprazole Sodium (Pantoprazole Sodium 40 Mg/10 Ml Vial) 40 mg IVPUSH BID@0630,1630 [facility] Sodium Chloride (0.9 % Sodium Chloride Flush 3 Ml Syringe) 3 ml IVFLUSH QSHIFT [facility] Home Medications ?Medication ?Instructions ?Recorded ?Confirmed ?Last Taken ?Type cholecalciferol (vitamin D3) 50 50 mcg PO DAILY 11/01/23 01/26/25 01/23/25 History mcg (2,000 unit) tablet folic acid 1 mg tablet 1 mg PO DAILY 11/01/23 01/26/25 01/23/25 History pantoprazole 40 mg tablet,delayed 40 mg PO DAILY@0630 11/01/23 01/26/25 01/23/25 History release clonidine HCl 0.1 mg tablet 0.1 mg PO TID PRN Anxiety 12/10/23 01/26/25 06/23/24 History citalopram 40 mg tablet 40 mg PO DAILY 02/26/24 01/26/25 01/23/25 History thiamine HCl (vitamin B1) 100 mg 100 mg PO DAILY 09/26/24 01/26/25 01/23/25 History tablet trazodone 100 mg tablet 100 mg PO BEDTIME PRN insomnia 10/27/24 01/26/25 Unknown History bupropion HCl 150 mg 24 hr tablet, 150 mg PO DAILY 11/21/24 01/26/25 01/23/25 History extended release sucralfate 100 mg/mL oral 10 ml PO QID 01/26/25 01/26/25 01/23/25 History suspension Physical Exam Vital Signs and Narrative: Vital Signs: Last Vital Signs Temp 98.4 F 04/15/25 06:16 Pulse 58 04/15/25 06:16 Resp 19 04/15/25 06:16 BP 150/72 H 04/15/25 06:16 Pulse Ox 97 04/15/25 06:16 O2 Del Method Room Air 04/15/25 06:16 BMI result Body Mass Index 18.4 General: AOx3, patient crying out in pain over IV hurting but declines new IV Resp: CTA bilaterally CVS: S1, S2, RRR GI: +BS, epiagastric pain, no distention Skin: Warm, dry Neuro: Cranial nerves II-XII grossly intact bilaterally. Motor grossly intact bilaterally. mild tremor. Extremities: No LE edema Psych: slight agitation Const: General: No confusion Orientation/consciousness: No confusion Neuro: General: No confusion Results Labs 04/14/25 21:50 04/15/25 05:00 Labs: Laboratory Results - last 24 hr 04/14/25 04/14/25 04/15/25 21:50 21:58 05:00 MCV 94.9 MCH 34.3 H MCHC 36.1 H RDW 13.8 Plt Count 181 MPV 10.2 Immature Gran % (Auto) 0.3 Neut % (Auto) 55.9 Lymph % (Auto) 36.8 [place] % (Auto) 5.6 Eos % (Auto) 0.9 Baso % (Auto) 0.5 Lymph # (Auto) 2.7 [place] # (Auto) 0.4 Eos # (Auto) 0.1 Baso # (Auto) 0.0 Abs Immat Gran (auto) 0.02 Absolute Neuts (auto) 4.1 Absolute Nucleated RBC 0.000 Nucleated RBC % (auto) 0.0 Anion Gap 11 L 12 Estim Creat Clear Calc 109.8 Estimated GFR > 60 Random Glucose 76 89 Calcium 8.2 L 7.4 L D Magnesium 1.4 L* 1.3 L* Total Bilirubin 0.6 Direct Bilirubin 0.3 AST 181 H ALT 64 H Alkaline Phosphatase 173 H Total Protein 5.3 L Albumin 3.1 L Lipase 23 Hold Green Top See Note Ethyl Alcohol 131 Blood Type O Positive Antibody Screen NEGATIVE Assessment and Plan (1) Acute hypokalemia: Status: Acute (2) Hypomagnesemia: Status: Acute (3) Abdominal pain: Status: Acute (4) Diarrhea: Qualifiers: Diarrhea type: presumed infectious Qualified Code(s): R19.7 - Diarrhea, unspecified Status: Acute (5) Bilateral leg pain: Status: Acute (6) Alcohol use disorder, severe, dependence: Status: Acute (7) Prolonged QT interval: Status: Acute Plan Patient is a 49-year-old female with a past medical history significant for alcohol use disorder with history of alcohol withdrawal and seizures, cocaine use disorder, history C diff, pancreatitis, hypertension, and mood disorder, who presented to the ED by her PCP due to abnormal labs. Acute hypokalemia and hypomagnesemia with abdominal pain and diarrhea - WBC 7.4, vitals stable, no fever, no infection identified - A/P CT ordered, not yet done - GI panel and c diff ordered - UA ordered - lipase normal - elevated LFTs secondary to alcohol use disorder - K 1.9, mag 1.4, given k 40 meq IV and 2g IV mag in ED - patient had significant pain with IV K, attempt PO repletion for further K - Na 147 and chloride 114, due to poor PO intake and diarrhea - monitor on tele - follow CBC and BMP bilateral leg pain - check CPK - bilateral LE venous US ordered alcohol use disorder - monitor CIWA - given IV thiamine in ED - continue PO thiamine, folate, and multivitamin - addiction med consult - ativan protocol, consider adding phenobarb if CIWA scores elevated prolonged QT - EKG with prolonged QT, likely due to lyte abnormalities - avoid QT prolonging agents HTN - continue home meds when appropriate mood disorder - continue home meds med rec not complete upon admission full code VTE prophy: lovenox Pt with acute electrolyte abnormalities, abd pain, diarrhea, and alcohol use disorder, requiring admission for at least 2 midnights stay for electrolyte repletion and further evaluation. Quality Stroke Does the patient have a stroke diagnosis?: No VTE Prior VTE?: No VTE Risk Level:: Medical - moderate - high VTE Device Contraindication: Treatment Not Indicated VTE Drug Contraindication: N/A - Med Ordered
[2025-04-15 06:34] LABS: Creatinine Clr Calc Pharmacy 114.8; Estimated Glomerular Filt Rate > 60
[2025-04-15] MEDS: Enoxaparin Sodium 40 MG/0.4 ML SYRINGE SUBCUT (06:43)
[2025-04-15] MEDS: Pantoprazole Sodium 40 MG/10 ML VIAL IVPUSH (06:44)
[2025-04-15 08:01] VITALS: BP 102/58; PULSE 56; RESP 15; TEMP 36.7; O2SAT 97
[2025-04-15] MEDS: LORazepam 1 MG TABLET 2 MG PO (08:07)
[2025-04-15] MEDS: Thiamine HCL 100 MG TABLET PO (08:08)
[2025-04-15] MEDS: Folic Acid 1 MG TABLET PO (08:08)
[2025-04-15] MEDS: Multivitamin TABLET 1 TAB PO (08:08)
--- NOTE | 2025-04-15 08:09 | PHA.MEDREC ---
Pharmacy Consult ? Medication Reconciliation Pharmacy has completed the medication reconciliation. Spoke to patient at bedside, able to verbally confirm her medications unprompted. Noted she only takes her magnesium once daily in the morning, and no longer takes Wellbutrin or naltrexone (filled 11/12/24 and 10/07/24 respectively).
[2025-04-15] MEDS: Magnesium Sulfate/H2O 2 GM/50 ML PIGGYBACK IV (08:11)
--- NOTE | 2025-04-15 09:00 | PC.NURSE ---
R wrist #22 IV painful with flushing, IV removed by this RN, New #20 in back of L FA placed at this time, MD aware, PICC line discussion started. Primary nurse aware.
--- NOTE | 2025-04-15 09:06 | MHC.CM.PN ---
Addendum entered by Audra Samuel 04/15/25 10:36: DC plan is TBD; PICC ordered today and CM will follow. Original Note: Patient lives with her Son/HCP/Tc and is functionally independent. Home/self care vs Recovery Team intervention R/T ETOH & Cocaine is the tentative plan and CM has initiated and will follow for dc planning. PCP is Dr. Ayala Patton and Son will transport to home at time of dc.
--- NOTE | 2025-04-15 09:11 | PC.NURSE ---
Report received at this time. Taken over care at this time.
[2025-04-15 09:50] LABS: CDiff Gene PCR POSITIVE (Negative)
--- NOTE | 2025-04-15 09:50 | PC.NURSE ---
Spoke to Pharmacy, Erin, was informed medication time to be changed.
[2025-04-15] MEDS: LORazepam 1 MG TABLET 0.5 MG PO ×4 (10:15→20:33)
--- NOTE | 2025-04-15 10:27 | PC.NURSE ---
Pt. went to restroom after being informed to use call yarbrough d/t iv medication infusing and needing ua. Pt. did not listen and left to restroom, almost losing iv and did not grab urine cup provided, so no ua collected at this time.
[2025-04-15 10:57] LABS: Adenovirus F 40/41 Not Detected (Not Detect.); Astrovirus Not Detected (Not Detect.); Campylobacter Not Detected (Not Detect.); Cryptosporidium Not Detected (Not Detect.); Cyclospora cayetanensis Not Detected (Not Detect.); E. coli EAEC Not Detected (Not Detect.); E. coli EPEC Not Detected (Not Detect.); E. coli ETEC Not Detected (Not Detect.); E. coli STEC Not Detected (Not Detect.); Entamoeba histolytica Not Detected (Not Detect.); Giardia lamblia Not Detected (Not Detect.); Norovirus GI/GII Not Detected (Not Detect.); Plesiomonas shigelloides Not Detected (Not Detect.); Rotavirus A Not Detected (Not Detect.); Salmonella Not Detected (Not Detect.); Sapovirus Not Detected (Not Detect.); Shigella sp./EIEC Not Detected (Not Detect.); Vibrio Not Detected (Not Detect.); Vibrio Cholerae Not Detected (Not Detect.); Yersinia enterocolitica Not Detected (Not Detect.)
[2025-04-15 11:36] LABS: CDiff Toxin Positive (Negative)
[2025-04-15 11:37] LABS: CDIFF Internal ctrl Dots and bkg OK (V)
--- NOTE | 2025-04-15 11:41 | PC.NURSE ---
Informed MD Sherwood of pt's + c.diff toxin. Precautions to be placed.
--- NOTE | 2025-04-15 12:25 | PC.NURSE ---
Pt. off unit to get PICCl line placed.
[2025-04-15] MEDS: iohexoL 350 MG/ML 100 ML INFUS..BTL IV (12:53)
--- NOTE | 2025-04-15 13:03 | HO.PICC ---
PICC Line Insertion NPICC Diagnosis: Dehydration, NPO Indication: TPN Pertinent Labs: Reviewed Technique: Following informed consent including risks, benefits and alternatives and using sterile technique including cap and mask, sterile gown, glove and drape, the right arm was prepped and draped in the usual sterile fashion of full barrier technique with CHG. Following completion of Haskell Protocol the skin and soft tissues were anesthetized with 1% Lidocaine plain. Using ultrasound guidance, right basilic vein access was obtained. Over an 0.018 wire through peel-away sheath, a 5FR triple lumen PASV PICC line was positioned. Catheter length is 37cm internal length, 0cm external length, for a total trimmed length of 37cm. The procedure was performed in rm 272. Tip verification was performed by Olive Modi with Sherlock 3CG. Tip located in SVC. Ultrasound was used to document vein patency and for needle entry. A formal ultrasound picture and cardiac rhythm strip was recorded. Vascular Deck[employer] has released the line for use and it is currently dressed with a StatLock, Tegaderm, and CHG disc. Verification has been performed for blood return and line patency. Arm Circumference: 22cm Equipment: [employer] Mobile POWERPICC SOLO HF catheter with Sherlock 3CG TIP Catheter Type: 5FR triple lumen PASV Catheter Lot #: [id number]
--- NOTE | 2025-04-15 13:07 | PC.NURSE ---
Pt. got up again without assistance, unable to retrieve ua sample.
--- NOTE | 2025-04-15 13:18 | PC.NURSE ---
Pt. back in room.
[2025-04-15 13:43] VITALS: BP 161/85; PULSE 66; RESP 16; TEMP 36.6; O2SAT 98
[2025-04-15 13:45] VITALS: BMI 18.4
--- NOTE | 2025-04-15 14:09 | MHC.CLN ---
NUTRITION DIET=CLEAR LIQUID. UNDERWEIGHT WITH HX ETOH ABUSE, COCAINE USE, C-DIFF DIARRHEA. WEIGHT STABLE X 3 MONTHS. WEIGHT LOSS TREND X 6 MONTHS AND ONE YEAR, NOT SIGNIFICANT. REPORTED POOR PO AND APPETITE X WEEKS PRIOR TO ADM. FOLLOW FOR DIET ADVANCEMENT AND PO INTAKE. PROVIDE SUPPLEMENT IF DESIRED. SEE CLINICAL NUTRITION ASSESSMENT 04/15/25.
--- NOTE | 2025-04-15 17:14 | PM.EVENT ---
Event Note Date of Service: 04/15/25 Event Note: Chart reviewed patient examined. Agree with H&P and I assessment as outlined. Patient extremely hypokalemic with poor intake for several weeks. PICC line placed this a.m.. We will ask nutrition to institute TPN. Replete potassium aggressively through PICC line. Further treatments based on clinical progress and outcomes Time Spent With Patient Time: Total time managing care of this patient today ____ minutes.
[2025-04-15 18:35] VITALS: BP 173/93; PULSE 66; RESP 18; TEMP 36.2; O2SAT 99
[2025-04-15] MEDS: Morphine Sulfate 4 MG/ML CARTRIDGE 2 MG IVPUSH ×2 (18:36→23:58)
[2025-04-15 20:00] VITALS: BP 144/67; PULSE 57; RESP 16; TEMP 36; O2SAT 95
[2025-04-16] VITALS (8 sets, daily range): BP systolic 131–149; BP diastolic 60–86; PULSE 54–75; RESP 16–18; TEMP 36.2–37.7; O2SAT 95–98
[2025-04-16] MEDS: LORazepam 1 MG TABLET 0.5 MG PO ×5 (02:44→20:54)
[2025-04-16] MEDS: Morphine Sulfate 4 MG/ML CARTRIDGE 2 MG IVPUSH ×3 (06:28→22:33)
[2025-04-16] MEDS: Enoxaparin Sodium 40 MG/0.4 ML SYRINGE SUBCUT (06:29)
[2025-04-16] MEDS: Pantoprazole Sodium 40 MG/10 ML VIAL IVPUSH ×2 (06:30→18:04)
[2025-04-16 07:34] LABS: MANUAL DIFF FLAG NO
[2025-04-16 07:51] LABS: Basophils Percent Auto 0.4 % (0-2); Eosinophils Absolute Auto 0.1 X10*3/uL (0.0-0.4); Eosinophils Percent Auto 1.9 % (0-4); Hematocrit 31.7 % (37.0-47.0); Imm Gran Abs Auto 0.02 X10*3/uL (0.00-0.03); Imm Gran Pct Auto 0.3 % (0.0-0.4); Lymphocytes Absolute Auto 2.3 X10*3/uL (1.2-4.9); Lymphocytes Percent Auto 30.5 % (20-40); Mean Corpuscular HGB Conc 34.7 g/dl (31.0-35.0); Mean Corpuscular Hemoglobin 34.5 pg (27.0-33.0); Mean Corpuscular Volume 99.4 fL (80.0-98.0); Mean Platelet Volume 10.9 fL (9.4-12.3); Monocytes Absolute Auto 0.5 X10*3/uL (0.1-1.2); Neutrophils Absolute Auto 4.6 x10*3/uL (2.0-8.3); Neutrophils Percent Auto 60.9 % (45-73); Platelet Count 148 X10*3/uL (160-400); Red Blood Count 3.19 X10*6/uL (4.20-5.50); Red Cell Distribution Width 13.5 % (11.0-16.0); White Blood Count 7.5 X10*3/uL (4.8-10.8)
[2025-04-16 08:08] LABS: Anion Gap 12 (12-20); Blood Urea Nitrogen < 3 mg/dL (9-16); Calcium 7.7 mg/dL (8.4-10.2); Carbon Dioxide 27 mmol/L (22-29); Chloride 108 mmol/L (96-108); Creatinine Clr Calc Pharmacy 130.4; Estimated Glomerular Filt Rate > 60; Glucose Random 87 mg/dL (60-115); Magnesium 1.3 mg/dL (1.6-2.6); Potassium 2.3 mmol/L (3.3-5.1); Sodium 145 mmol/L (135-145)
[2025-04-16] MEDS: Escitalopram Oxalate 20 MG TABLET PO (09:41)
[2025-04-16] MEDS: Sucralfate Oral Suspension 1 GM/10 ML ORAL.SUSP PO ×4 (09:41→20:53)
[2025-04-16] MEDS: Magnesium Oxide 400 MG TABLET PO (09:41)
[2025-04-16] MEDS: Thiamine HCL 100 MG TABLET PO (09:41)
[2025-04-16] MEDS: Magnesium Sulfate/H2O 2 GM/50 ML PIGGYBACK IV (09:41)
[2025-04-16] MEDS: amLODIPine Besylate 5 MG TABLET PO (09:41)
[2025-04-16] MEDS: Multivitamin TABLET 1 TAB PO (09:41)
[2025-04-16] MEDS: Folic Acid 1 MG TABLET PO (09:41)
[2025-04-16] MEDS: Cholecalciferol (Vitamin D3) 25 MCG TABLET 50 MCG PO (09:41)
[2025-04-16] MEDS: Potassium Chloride/H20 10 MEQ/100 ML PIGGYBACK 100 MEQ IV ×4 (09:42→13:17)
[2025-04-16] MEDS: 0.9 % Sodium Chloride Flush 3 ML SYRINGE IVFLUSH ×2 (09:42→18:03)
[2025-04-16] MEDS: Potassium Chloride Packet 20 MEQ PACKET 40 MEQ PO ×3 (09:43→20:53)
[2025-04-16 09:45] LABS: Phosphorus 3.7 mg/dL (2.7-4.5)
[2025-04-16] MEDS: vancomycin HCL 125 MG CAPSULE PO ×3 (09:47→18:03)
--- NOTE | 2025-04-16 10:20 | MHC.CLN ---
CONSULT PT REQUIRES NUTRITION SUPPORT VIA TPN C/L DIET IN PLACE PICC LINE PLACED REVIEWED LABS DISCUSSED WITH PHARMACY RECOMMEND TPN AT 35ML/HR TO PROVIDE 596KCALS, 126G DEXTROSE, 42G PROTEIN (.8G/KG) REPLETE K+ AGGRESSIVELY PER MD (PHARM AWARE) PT IS AT RISK FOR RE-FEEDING R/T ETOH ABUSE, DRUG ABUSE AND CHRONIC POOR PO INTAKE MONITOR K+, MG AND PHOS CLOSELY SEE ALSO FULL CLINICAL NUTRITION ASSESSMENT
--- NOTE | 2025-04-16 10:45 | MHC.CM.PN ---
Pt lives with her fiance, she does not have home health services. PCP is confirmed: Ayala Patton, HCP on file and confirmed: her son Tc. Pt.'s jose david will drive her home at DC, DCP: home, self care. CM to follow for DC needs.
[2025-04-16] MEDS: LORazepam 1 MG TABLET PO (11:21)
--- NOTE | 2025-04-16 14:59 | HO.ADDICTCON ---
History of Present Illness Date of Service: 04/16/2025 Chief Complaint: abnormal labs Reason for Consult: AUD /withdrawal management Sources of Information: chart reviewed HPI Narrative: Patient is a 49 year old female with AUD medically admitted with acute hypokalemia and hypomagnesemia. Also being treated for alcohol withdrawal. Chart reviewed, and patient known to t/w via previous admissions, most recently January 2025. At time of admission she reported drinking 5 shots daily with last drink prior to presenting to ED. She also reported poor PO intake and frequent vomiting. She is resting comfortably, after having just received IV pain meds--requesting to be allowed to sleep. Chart review shows patient was started on Lorazepam 1mg Q6H for alcohol withdrawal with 1mg Q4H PRN for breakthrough withdrawal sx. She has required one dose of PRN since admission on 04/15. CIWA score 4's. VSS Evaluated by breast trimmer and recommendation for TPN due to nutritional deficiencies. Medical Evaluation Reviewed: Yes Review of Systems Review of Systems Yes Unobtainable due to mental status (patient sleeping) Diagnostics Vital Signs (24Hr): Vital Signs - 24 hr 04/15/25 18:35 04/15/25 20:00 04/16/25 00:00 Temperature 97.2 F 96.8 F 98.2 F Pulse Rate 66 57 61 Respiratory Rate 18 16 16 Blood Pressure 173/93 H 144/67 H 131/66 Pulse Oximetry 99 95 98 Oxygen Delivery Method Room Air Room Air Room Air 04/16/25 03:36 04/16/25 07:01 04/16/25 09:41 Temperature 98.1 F 97.2 F Pulse Rate 54 63 Respiratory Rate 16 18 Blood Pressure 135/63 149/79 H 149/79 H Pulse Oximetry 98 98 Oxygen Delivery Method Room Air Room Air 04/16/25 11:43 Temperature 97.9 F Pulse Rate 60 Respiratory Rate 18 Blood Pressure 144/70 H Pulse Oximetry 97 Oxygen Delivery Method Room Air BMI result Body Mass Index 20.0 Labs 04/16/25 06:25 04/16/25 06:25 Labs: Laboratory Results - last 48 hr 04/14/25 04/14/25 04/15/25 21:50 21:58 05:00 WBC 7.4 RBC 3.53 L Hgb 12.1 Hct 33.5 L MCV 94.9 MCH 34.3 H MCHC 36.1 H RDW 13.8 Plt Count 181 MPV 10.2 Immature Gran % (Auto) 0.3 Neut % (Auto) 55.9 Lymph % (Auto) 36.8 [place] % (Auto) 5.6 Eos % (Auto) 0.9 Baso % (Auto) 0.5 Lymph # (Auto) 2.7 [place] # (Auto) 0.4 Eos # (Auto) 0.1 Baso # (Auto) 0.0 Abs Immat Gran (auto) 0.02 Absolute Neuts (auto) 4.1 Absolute Nucleated RBC 0.000 Nucleated RBC % (auto) 0.0 Sodium 144 147 H Potassium 1.9 L* D 2.2 L* Chloride 108 114 H Carbon Dioxide 27 23 Anion Gap 11 L 12 BUN 3 L < 3 L Creatinine 0.47 L 0.45 L Estim Creat Clear Calc 109.8 114.8 Estimated GFR > 60 > 60 Random Glucose 76 89 Calcium 8.2 L 7.4 L D Phosphorus Magnesium 1.4 L* 1.3 L* Total Bilirubin 0.6 Direct Bilirubin 0.3 AST 181 H ALT 64 H Alkaline Phosphatase 173 H Total Creatine Kinase 83 Total Protein 5.3 L Albumin 3.1 L Lipase 23 Hold Green Top See Note Stl C. cayetanensis PCR Stool Rotavirus A PCR Stl Adenov F 40/41 PCR Stool Astrovirus (PCR) Stool Campylobacter PCR Stool Cryptosporidium PCR Stl Sh Tox Pr E STEC PCR Stool E coli O157 PCR Stl Enterotoxigenic E PCR Stool EPEC (PCR) Stool EAEC (PCR) Stl E. histolytica PCR Stool Giardia Lamblia PCR Stl P. shigelloides PCR Stool Salmonella PCR Stool Sapovirus (PCR) Stl Shigella/EIEC PCR St Y.enterocolitica PCR Stool Vibrio (PCR) Stl Vibrio cholerae PCR Stl Norovirus GI/GII PCR Ethyl Alcohol 131 C. difficile Tox B Gene C. difficile Toxin A&B C. difficile Interpret Blood Type O Positive Antibody Screen NEGATIVE 04/15/25 04/16/25 08:19 06:25 WBC 7.5 RBC 3.19 L Hgb 11.0 L Hct 31.7 L MCV 99.4 H MCH 34.5 H MCHC 34.7 RDW 13.5 Plt Count 148 L MPV 10.9 Immature Gran % (Auto) 0.3 Neut % (Auto) 60.9 Lymph % (Auto) 30.5 [place] % (Auto) 6.0 Eos % (Auto) 1.9 Baso % (Auto) 0.4 Lymph # (Auto) 2.3 [place] # (Auto) 0.5 Eos # (Auto) 0.1 Baso # (Auto) 0.0 Abs Immat Gran (auto) 0.02 Absolute Neuts (auto) 4.6 Absolute Nucleated RBC 0.000 Nucleated RBC % (auto) 0.0 Sodium 145 Potassium 2.3 L* Chloride 108 Carbon Dioxide 27 Anion Gap 12 BUN < 3 L Creatinine 0.43 L Estim Creat Clear Calc 130.4 Estimated GFR > 60 Random Glucose 87 Calcium 7.7 L Phosphorus 3.7 Magnesium 1.3 L* Total Bilirubin Direct Bilirubin AST ALT Alkaline Phosphatase Total Creatine Kinase Total Protein Albumin Lipase Hold Green Top Stl C. cayetanensis PCR Not Detected Stool Rotavirus A PCR Not Detected Stl Adenov F 40/41 PCR Not Detected Stool Astrovirus (PCR) Not Detected Stool Campylobacter PCR Not Detected Stool Cryptosporidium PCR Not Detected Stl Sh Tox Pr E STEC PCR Not Detected Stool E coli O157 PCR Not applicable Stl Enterotoxigenic E PCR Not Detected Stool EPEC (PCR) Not Detected Stool EAEC (PCR) Not Detected Stl E. histolytica PCR Not Detected Stool Giardia Lamblia PCR Not Detected Stl P. shigelloides PCR Not Detected Stool Salmonella PCR Not Detected Stool Sapovirus (PCR) Not Detected Stl Shigella/EIEC PCR Not Detected St Y.enterocolitica PCR Not Detected Stool Vibrio (PCR) Not Detected Stl Vibrio cholerae PCR Not Detected Stl Norovirus GI/GII PCR Not Detected Ethyl Alcohol C. difficile Tox B Gene POSITIVE A* C. difficile Toxin A&B Positive A* C. difficile Interpret SEE NOTE Blood Type Antibody Screen Imaging Radiology Impressions: ITS Impressions Venous Duplex 04/15/25 07:24 IMPRESSION: No acute deep venous thrombosis interrogated veins, bilateral lower extremities. Negative for DVT. Electronically signed by: Basil Dickey MD 04/15/2025 08:08 AM EDT Abdomen/Pelvis CT 04/15/25 11:50 IMPRESSION: There is bowel wall thickening. Involvement includes, likely the gastric antrum, proximal jejunum, terminal ileum, right colon through the mid transverse colon, rectosigmoid junction, and rectum. Etiologies could include infection, inflammatory bowel disease/Crohn's disease, ischemia, and less likely neoplasm. There is trace ascites. No free air was evident. Fatty liver. Trace right pleural effusion. Moderate atherosclerotic disease. Visible blood flow was present in the celiac artery, SMA, and OLE. IUD. Dr. Dilip Sherwood contacted. Electronically signed by: Clinton Dodson MD 04/15/2025 01:54 PM EDT Mental Status Exam Mental Status Exam Level of Consciousness: Lethargic (appears weak) Affect Description: Blunted Medications Medications Current Medications Acetaminophen (Acetaminophen 325 Mg Tablet) 975 mg PO Q6H PRN PRN Reason: Pain, Mild 1-3,fever,headache Amlodipine Besylate (Amlodipine Besylate 5 Mg Tablet) 5 mg PO DAILY [facility]; Protocol Last Admin: 04/16/25 09:41 Dose: 5 mg Calcium Carbonate (Calcium Carbonate 750 Mg Tab.Chew) 750 mg PO Q4H PRN PRN Reason: Heartburn Clonidine HCl (Clonidine Hcl 0.1 Mg Tablet) 0.1 mg PO TID PRN; Protocol PRN Reason: Anxiety Enoxaparin Sodium (Enoxaparin Sodium 40 Mg/0.4 Ml Syringe) 40 mg SUBCUT Q24H [facility]A Last Admin: 04/16/25 06:29 Dose: 40 mg Escitalopram Oxalate (Escitalopram Oxalate 20 Mg Tablet) 20 mg PO DAILY [facility] Last Admin: 04/16/25 09:41 Dose: 20 mg Folic Acid (Folic Acid 1 Mg Tablet) 1 mg PO DAILY [facility] Stop: 04/18/25 08:59 Last Admin: 04/16/25 09:41 Dose: 1 mg Nutrition (Parenteral) (Parenteral Nutrition) 840 mls @ 35 mls/hr IV .Q24H [facility]; Protocol Stop: 04/17/25 20:59 Lorazepam (Lorazepam 1 Mg Tablet) 1 mg PO Q4H PRN PRN Reason: Breakthrough alcohol withdrawa Stop: 04/19/25 06:33 Last Admin: 04/16/25 11:21 Dose: 1 mg Lorazepam (Lorazepam 1 Mg Tablet) 1 mg PO Q6H [facility]ANTHA; Taper Stop: 04/19/25 09:59 Last Admin: 04/16/25 11:17 Dose: 1 mg Magnesium Hydroxide (Milk Of Magnesia 30 Ml Oral.Susp) 30 ml PO DAILY PRN PRN Reason: Constipation Magnesium Oxide (Magnesium Oxide 400 Mg Tablet) 400 mg PO DAILY [facility] Last Admin: 04/16/25 09:41 Dose: 400 mg Melatonin (Melatonin 3 Mg Tablet) 6 mg PO BEDTIME PRN PRN Reason: Insomnia Morphine Sulfate (Morphine Sulfate 4 Mg/Ml Cartridge) 2 mg IVPUSH Q4H PRN; Protocol PRN Reason: Pain, Severe (Pain Scale 7-10) Last Admin: 04/16/25 11:18 Dose: 2 mg Multivitamins/Vitamin C (Multivitamin Tablet) 1 tab PO DAILY [facility] Stop: 04/18/25 08:59 Last Admin: 04/16/25 09:41 Dose: 1 tab Oxycodone HCl (Oxycodone Hcl Immed Release 5 Mg Tablet) 5 mg PO Q6H PRN PRN Reason: Pain, Moderate(Pain Scale 4-6) Pantoprazole Sodium (Pantoprazole Sodium 40 Mg/10 Ml Vial) 40 mg IVPUSH BID@0630,1630 [facility] Last Admin: 04/16/25 06:30 Dose: 40 mg Pharmacy Consult (Consult Rx Parenteral Nutrition Ordering) 1 each MISCELLANE DAILY PRN PRN Reason: Consult order Potassium Chloride (Potassium Chloride Packet 20 Meq Packet) 40 meq PO Q6H [facility] Stop: 04/17/25 02:16 Last Admin: 04/16/25 14:25 Dose: 40 meq Sodium Chloride (0.9 % Sodium Chloride Flush 3 Ml Syringe) 3 ml IVFLUSH QSHIFT [facility] Last Admin: 04/16/25 09:42 Dose: 3 ml Sucralfate (Sucralfate Oral Suspension 1 Gm/10 Ml Oral.Susp) 1 gm PO QID [facility] Last Admin: 04/16/25 14:25 Dose: 1 gm Thiamine HCl (Thiamine Hcl 100 Mg Tablet) 100 mg PO DAILY [facility] Stop: 04/18/25 08:59 Last Admin: 04/16/25 09:41 Dose: 100 mg Trazodone HCl (Trazodone Hcl 100 Mg Tablet) 100 mg PO BEDTIME PRN PRN Reason: Insomnia Vancomycin HCl (Vancomycin Hcl 125 Mg Capsule) 125 mg PO Q6H [facility] Stop: 04/23/25 07:14 Last Admin: 04/16/25 14:25 Dose: 125 mg Vitamin D (Cholecalciferol (Vitamin D3) 25 Mcg Tablet) 50 mcg PO DAILY [facility] Last Admin: 04/16/25 09:41 Dose: 50 mcg Allergies Allergies Allergy/AdvReac Type Severity Reaction Status Date / Time No Known Allergies Allergy Verified 04/14/25 21:24 Assessment & Plan Assessment & Plan (1) Alcohol use disorder, severe, dependence: Status: Acute Code(s): F10.20 - Alcohol dependence, uncomplicated Assessment and Plan: If patient does well overnight with current orders (not needing extra doses of lorazepam for withdrawal) can taper to 1mg q8H in the morning continue to monitor CIWA -if appropriate PRN doses are available for withdrawal sx will continue to follow Total time managing care of this patient today __25__ minutes. PMFSH Past Medical History Medical History Alcohol use disorder, severe, dependence Clostridium difficile colitis Hypertension Alcohol use disorder Pancreatic insufficiency Gastroesophageal reflux disease Essential hypertension Mood disorder Cannabis use disorder Hepatitis C Tobacco use disorder Surgical History Surgical History H/O colonoscopy (~01/2023) Social History Social History Household Members: Spouse Household Members Other:: son Housing: Apartment Do you presently have visiting nurse or other home services: No Alcohol intake: current Alcohol intake frequency: other Alcohol type: hard liquor Comment: Pt refusing alarms, steady gait Patient Tobacco Use Status: Current everyday Tobacco user Tobacco use type: Cigarette Cigarette Packs Per Day: 0.5 Cigarettes Per Day: 10 e-Cigarette/Vaping Use: Currently Using Second Hand Smoke Exposure: No Substance Use Type: Crack/Cocaine and Marijuana Advance Directives Date on File: 12/10/23 service: No
--- NOTE | 2025-04-16 18:42 | P.PNIM_ITS ---
Subjective Subjective Date of Service: 04/16/25 Interval History: Potassium and magnesium continue to be severely depleted despite aggressive supplementation Poor appetite, some nausea, though reports has been able to tolerate some p.o. intake, including daniel juani Continues to have diarrhea Denies abdominal pain Increased anxiety Denies auditory or visual hallucinations Review of Systems Negative except for that which is stated in the HPI. Physical Exam 2 Vital Signs: Vital Signs: Last Vital Signs Temp 98.7 F 04/16/25 15:15 Pulse 75 04/16/25 15:15 Resp 18 04/16/25 15:15 BP 136/86 04/16/25 15:15 Pulse Ox 98 04/16/25 15:15 O2 Del Method Room Air 04/16/25 15:15 BMI result Body Mass Index 20.0 General: AOx3, looks weak, chronically ill. no acute distress Resp: CTA bilaterally CVS: S1, S2, RRR GI: +BS, NT, no distention Skin: Warm, dry Neuro: Cranial nerves II-XII grossly intact bilaterally. Motor grossly intact bilaterally. Mild upper extremity tremors Extremities: No edema Psych: Slightly anxious, but cooperative Objective Data Active Medications Acetaminophen (Acetaminophen 325 Mg Tablet) 975 mg PO Q6H PRN PRN Reason: Pain, Mild 1-3,fever,headache Amlodipine Besylate (Amlodipine Besylate 5 Mg Tablet) 5 mg PO DAILY [facility]; Protocol Last Admin: 04/16/25 09:41 Dose: 5 mg Documented By: RACHEL Calcium Carbonate (Calcium Carbonate 750 Mg Tab.Chew) 750 mg PO Q4H PRN PRN Reason: Heartburn Clonidine HCl (Clonidine Hcl 0.1 Mg Tablet) 0.1 mg PO TID PRN; Protocol PRN Reason: Anxiety Enoxaparin Sodium (Enoxaparin Sodium 40 Mg/0.4 Ml Syringe) 40 mg SUBCUT Q24H [facility] Last Admin: 04/16/25 06:29 Dose: 40 mg Documented By: BELKYS Escitalopram Oxalate (Escitalopram Oxalate 20 Mg Tablet) 20 mg PO DAILY [facility] Last Admin: 04/16/25 09:41 Dose: 20 mg Documented By: RACHEL Folic Acid (Folic Acid 1 Mg Tablet) 1 mg PO DAILY [facility] Stop: 04/18/25 08:59 Last Admin: 04/16/25 09:41 Dose: 1 mg Documented By: RACHEL Nutrition (Parenteral) (Parenteral Nutrition) 840 mls @ 35 mls/hr IV .Q24H [facility]; Protocol Stop: 04/17/25 20:59 Lorazepam (Lorazepam 1 Mg Tablet) 1 mg PO Q4H PRN PRN Reason: Breakthrough alcohol withdrawa Stop: 04/19/25 06:33 Last Admin: 04/16/25 11:21 Dose: 1 mg Documented By: RACHEL Lorazepam (Lorazepam 1 Mg Tablet) 1 mg PO Q6H [facility]; Taper Stop: 04/19/25 09:59 Last Admin: 04/16/25 18:04 Dose: 1 mg Documented By: RACHEL Magnesium Hydroxide (Milk Of Magnesia 30 Ml Oral.Susp) 30 ml PO DAILY PRN PRN Reason: Constipation Magnesium Oxide (Magnesium Oxide 400 Mg Tablet) 400 mg PO DAILY [facility] Last Admin: 04/16/25 09:41 Dose: 400 mg Documented By: RACHEL Melatonin (Melatonin 3 Mg Tablet) 6 mg PO BEDTIME PRN PRN Reason: Insomnia Morphine Sulfate (Morphine Sulfate 4 Mg/Ml Cartridge) 2 mg IVPUSH Q4H PRN; Protocol PRN Reason: Pain, Severe (Pain Scale 7-10) Last Admin: 04/16/25 11:18 Dose: 2 mg Documented By: RACHEL Multivitamins/Vitamin C (Multivitamin Tablet) 1 tab PO DAILY [facility] Stop: 04/18/25 08:59 Last Admin: 04/16/25 09:41 Dose: 1 tab Documented By: RACHEL Oxycodone HCl (Oxycodone Hcl Immed Release 5 Mg Tablet) 5 mg PO Q6H PRN PRN Reason: Pain, Moderate(Pain Scale 4-6) Pantoprazole Sodium (Pantoprazole Sodium 40 Mg/10 Ml Vial) 40 mg IVPUSH BID@0630,1630 [facility] Last Admin: 04/16/25 18:04 Dose: 40 mg Documented By: RACHEL Pharmacy Consult (Consult Rx Parenteral Nutrition Ordering) 1 each MISCELLANE DAILY PRN PRN Reason: Consult order Potassium Chloride (Potassium Chloride Packet 20 Meq Packet) 40 meq PO Q6H [facility] Stop: 04/17/25 02:16 Last Admin: 04/16/25 14:25 Dose: 40 meq Documented By: RACHEL Sodium Chloride (0.9 % Sodium Chloride Flush 3 Ml Syringe) 3 ml IVFLUSH QSHIFT [facility] Last Admin: 04/16/25 18:03 Dose: 3 ml Documented By: RACHEL Sucralfate (Sucralfate Oral Suspension 1 Gm/10 Ml Oral.Susp) 1 gm PO QID [facility] Last Admin: 04/16/25 18:03 Dose: 1 gm Documented By: RACHEL Thiamine HCl (Thiamine Hcl 100 Mg Tablet) 100 mg PO DAILY [facility] Stop: 04/18/25 08:59 Last Admin: 04/16/25 09:41 Dose: 100 mg Documented By: RACHEL Trazodone HCl (Trazodone Hcl 100 Mg Tablet) 100 mg PO BEDTIME PRN PRN Reason: Insomnia Vancomycin HCl (Vancomycin Hcl 125 Mg Capsule) 125 mg PO Q6H [facility] Stop: 04/23/25 07:14 Last Admin: 04/16/25 18:03 Dose: 125 mg Documented By: RACHEL Vitamin D (Cholecalciferol (Vitamin D3) 25 Mcg Tablet) 50 mcg PO DAILY [facility] Last Admin: 04/16/25 09:41 Dose: 50 mcg Documented By: RACHEL Labs 04/16/25 06:25 04/16/25 06:25 Labs: Laboratory Results - last 24 hr 04/16/25 06:25 MCV 99.4 H MCH 34.5 H MCHC 34.7 RDW 13.5 Plt Count 148 L MPV 10.9 Immature Gran % (Auto) 0.3 Neut % (Auto) 60.9 Lymph % (Auto) 30.5 [place] % (Auto) 6.0 Eos % (Auto) 1.9 Baso % (Auto) 0.4 Lymph # (Auto) 2.3 [place] # (Auto) 0.5 Eos # (Auto) 0.1 Baso # (Auto) 0.0 Abs Immat Gran (auto) 0.02 Absolute Neuts (auto) 4.6 Absolute Nucleated RBC 0.000 Nucleated RBC % (auto) 0.0 Anion Gap 12 Estim Creat Clear Calc 130.4 Estimated GFR > 60 Random Glucose 87 Calcium 7.7 L Phosphorus 3.7 Magnesium 1.3 L* Assessment and Plan (1) Alcohol withdrawal: Status: Acute (2) Hypomagnesemia: Status: Acute (3) Acute hypokalemia: Status: Acute (4) Clostridium difficile colitis: Status: Acute Plan Patient is a 49-year-old female with a past medical history significant for alcohol use disorder with history of alcohol withdrawal and seizures, cocaine use disorder, history C diff, pancreatitis, hypertension, and mood disorder, who presented to the ED by her PCP due to abnormal labs. Acute C diff colitis P.o. vancomycin for now ID consult Acute hypokalemia and hypomagnesemia In the setting of above as well as poor po intake and alcohol use disorder Continue aggressive repletion with IV and p.o. supplements Monitor on tele Follow CBC and BMP Bilateral leg pain CPK WNL, bilateral LE venous US negative for DVT Alcohol use disorder Monitor CIWA Given IV thiamine in ED Continue PO thiamine, folate, and multivitamin Addiction med consult Doing well on Ativan protocol, continue for now Prolonged QT EKG with prolonged QT, likely due to lyte abnormalities Avoid QT prolonging agents Replenish electrolytes as above HTN Continue home meds when appropriate Mood disorder Continue home meds Full code VTE prophy: lovenox Pt requires continued hospitalization due to continued electrolyte abnormalities and inability to tolerate full p.o. Quality Stroke Does the patient have a stroke diagnosis?: No VTE Prior VTE?: No VTE Risk Level:: Medical - moderate - high VTE Device Contraindication: Treatment Not Indicated VTE Drug Contraindication: N/A - Med Ordered
[2025-04-16 18:56] LABS: Anion Gap 11 (12-20); Blood Urea Nitrogen < 3 mg/dL (9-16); Calcium 7.9 mg/dL (8.4-10.2); Carbon Dioxide 27 mmol/L (22-29); Chloride 111 mmol/L (96-108); Creatinine Clr Calc Pharmacy 127.5; Estimated Glomerular Filt Rate > 60; Glucose Random 109 mg/dL (60-115); Magnesium 1.5 mg/dL (1.6-2.6); Phosphorus 3.2 mg/dL (2.7-4.5); Potassium 3.2 mmol/L (3.3-5.1); Sodium 146 mmol/L (135-145)
[2025-04-16] MEDS: Parenteral Nutrition 840 ML 35 ML IV (20:53)
[2025-04-16] MEDS: traZODone HCL 100 MG TABLET PO (22:33)
[2025-04-17] MEDS: 0.9 % Sodium Chloride Flush 3 ML SYRINGE IVFLUSH ×2 (02:17→09:32)
[2025-04-17] MEDS: Potassium Chloride Packet 20 MEQ PACKET 40 MEQ PO (02:17)
[2025-04-17] MEDS: vancomycin HCL 125 MG CAPSULE PO ×4 (02:17→18:01)
[2025-04-17 03:45] VITALS: BP 140/75; PULSE 75; RESP 14; TEMP 37.1; O2SAT 96
[2025-04-17] MEDS: LORazepam 1 MG TABLET 0.5 MG PO ×3 (03:45→16:54)
[2025-04-17] MEDS: Pantoprazole Sodium 40 MG/10 ML VIAL IVPUSH ×2 (06:12→16:54)
[2025-04-17] MEDS: Enoxaparin Sodium 40 MG/0.4 ML SYRINGE SUBCUT (06:12)
[2025-04-17 07:01] LABS: MANUAL DIFF FLAG NO
[2025-04-17 07:13] LABS: Basophils Absolute Auto 0.1 X10*3/uL (0.0-0.2); Basophils Percent Auto 0.8 % (0-2); Eosinophils Absolute Auto 0.2 X10*3/uL (0.0-0.4); Eosinophils Percent Auto 2.4 % (0-4); Hematocrit 34.4 % (37.0-47.0); Hemoglobin 11.8 g/dl (12.0-16.0); Imm Gran Abs Auto 0.03 X10*3/uL (0.00-0.03); Imm Gran Pct Auto 0.5 % (0.0-0.4); Lymphocytes Absolute Auto 2.2 X10*3/uL (1.2-4.9); Lymphocytes Percent Auto 35.2 % (20-40); Mean Corpuscular HGB Conc 34.3 g/dl (31.0-35.0); Mean Corpuscular Hemoglobin 34.5 pg (27.0-33.0); Mean Corpuscular Volume 100.6 fL (80.0-98.0); Mean Platelet Volume 10.2 fL (9.4-12.3); Monocytes Absolute Auto 0.4 X10*3/uL (0.1-1.2); Monocytes Percent Auto 7.2 % (2-11); Neutrophils Absolute Auto 3.3 x10*3/uL (2.0-8.3); Neutrophils Percent Auto 53.9 % (45-73); Platelet Count 142 X10*3/uL (160-400); Red Blood Count 3.42 X10*6/uL (4.20-5.50); Red Cell Distribution Width 13.7 % (11.0-16.0); White Blood Count 6.1 X10*3/uL (4.8-10.8)
[2025-04-17 07:44] LABS: Albumin Level 2.8 g/dL (3.5-5.0); Blood Urea Nitrogen < 3 mg/dL (9-16); Calcium 8.3 mg/dL (8.4-10.2); Creatinine Clr Calc Pharmacy 133.5; Estimated Glomerular Filt Rate > 60; Glucose Random 139 mg/dL (60-115); Magnesium 1.3 mg/dL (1.6-2.6)
[2025-04-17 07:49] VITALS: BP 165/79; PULSE 75; RESP 17; TEMP 36.2; O2SAT 100
[2025-04-17 07:58] LABS: Anion Gap 14 (12-20); Carbon Dioxide 25 mmol/L (22-29); Chloride 109 mmol/L (96-108); Potassium 3.8 mmol/L (3.3-5.1); Sodium 144 mmol/L (135-145)
--- NOTE | 2025-04-17 08:11 | P.PNIM_ITS ---
Subjective Subjective Date of Service: 04/17/25 Interval History: Started TPN last night, tolerated it well Pt reports feeling hungry and wanting to transition to a full diet Some continued nausea, no vomiting Mild abd pain/discomfort Hand and leg cramping slightly improved Review of Systems Denies SOB No SOB no chest pain/pressure, palpitations Physical Exam 2 Vital Signs: Vital Signs: Last Vital Signs Temp 97.1 F 04/17/25 07:49 Pulse 75 04/17/25 07:49 Resp 17 04/17/25 07:49 BP 165/79 H 04/17/25 07:49 Pulse Ox 100 04/17/25 07:49 O2 Del Method Room Air 04/17/25 07:49 BMI result Body Mass Index 20.0 General: AOx3, no acute distress Resp: CTA bilaterally CVS: S1, S2, RRR GI: +BS, NT, no distention Skin: Warm, dry Neuro: Cranial nerves II-XII grossly intact bilaterally. Motor grossly intact bilaterally Extremities: No edema. Upper hands slightly contracted, reduced active ROM. Psych: Appropriate affect. Calm, cooperative Objective Data Active Medications Acetaminophen (Acetaminophen 325 Mg Tablet) 975 mg PO Q6H PRN PRN Reason: Pain, Mild 1-3,fever,headache Amlodipine Besylate (Amlodipine Besylate 5 Mg Tablet) 5 mg PO DAILY [facility]; Protocol Last Admin: 04/16/25 09:41 Dose: 5 mg Documented By: RACHEL Calcium Carbonate (Calcium Carbonate 750 Mg Tab.Chew) 750 mg PO Q4H PRN PRN Reason: Heartburn Clonidine HCl (Clonidine Hcl 0.1 Mg Tablet) 0.1 mg PO TID PRN; Protocol PRN Reason: Anxiety Enoxaparin Sodium (Enoxaparin Sodium 40 Mg/0.4 Ml Syringe) 40 mg SUBCUT Q24H [facility] Last Admin: 04/17/25 06:12 Dose: 40 mg Documented By: TOSHA Escitalopram Oxalate (Escitalopram Oxalate 20 Mg Tablet) 20 mg PO DAILY [facility] Last Admin: 04/16/25 09:41 Dose: 20 mg Documented By: RACHEL Folic Acid (Folic Acid 1 Mg Tablet) 1 mg PO DAILY [facility] Stop: 04/18/25 08:59 Last Admin: 04/16/25 09:41 Dose: 1 mg Documented By: RACHEL Nutrition (Parenteral) (Parenteral Nutrition) 840 mls @ 35 mls/hr IV .Q24H [facility]; Protocol Stop: 04/17/25 20:59 Last Admin: 04/16/25 20:53 Dose: 35 mls/hr Documented By: TOSHA Lorazepam (Lorazepam 1 Mg Tablet) 1 mg PO Q4H PRN PRN Reason: Breakthrough alcohol withdrawa Stop: 04/19/25 06:33 Last Admin: 04/16/25 11:21 Dose: 1 mg Documented By: RACHEL Lorazepam (Lorazepam 1 Mg Tablet) 1 mg PO Q6H [facility]; Taper Stop: 04/19/25 09:59 Last Admin: 04/17/25 03:45 Dose: 1 mg Documented By: TOSHA Magnesium Hydroxide (Milk Of Magnesia 30 Ml Oral.Susp) 30 ml PO DAILY PRN PRN Reason: Constipation Magnesium Oxide (Magnesium Oxide 400 Mg Tablet) 400 mg PO DAILY [facility] Last Admin: 04/16/25 09:41 Dose: 400 mg Documented By: RACHEL Melatonin (Melatonin 3 Mg Tablet) 6 mg PO BEDTIME PRN PRN Reason: Insomnia Morphine Sulfate (Morphine Sulfate 4 Mg/Ml Cartridge) 2 mg IVPUSH Q4H PRN; Protocol PRN Reason: Pain, Severe (Pain Scale 7-10) Last Admin: 04/16/25 22:33 Dose: 2 mg Documented By: TOSHA Multivitamins/Vitamin C (Multivitamin Tablet) 1 tab PO DAILY [facility] Stop: 04/18/25 08:59 Last Admin: 04/16/25 09:41 Dose: 1 tab Documented By: RACHEL Oxycodone HCl (Oxycodone Hcl Immed Release 5 Mg Tablet) 5 mg PO Q6H PRN PRN Reason: Pain, Moderate(Pain Scale 4-6) Pantoprazole Sodium (Pantoprazole Sodium 40 Mg/10 Ml Vial) 40 mg IVPUSH BID@0630,1630 [facility] Last Admin: 04/17/25 06:12 Dose: 40 mg Documented By: TOSHA Pharmacy Consult (Consult Rx Parenteral Nutrition Ordering) 1 each MISCELLANE DAILY PRN PRN Reason: Consult order Sodium Chloride (0.9 % Sodium Chloride Flush 3 Ml Syringe) 3 ml IVFLUSH QSHIFT [facility] Last Admin: 04/17/25 02:17 Dose: 3 ml Documented By: TOSHA Sucralfate (Sucralfate Oral Suspension 1 Gm/10 Ml Oral.Susp) 1 gm PO QID [facility] Last Admin: 04/16/25 20:53 Dose: 1 gm Documented By: TOSHA Thiamine HCl (Thiamine Hcl 100 Mg Tablet) 100 mg PO DAILY [facility] Stop: 04/18/25 08:59 Last Admin: 04/16/25 09:41 Dose: 100 mg Documented By: RACHEL Trazodone HCl (Trazodone Hcl 100 Mg Tablet) 100 mg PO BEDTIME PRN PRN Reason: Insomnia Last Admin: 04/16/25 22:33 Dose: 100 mg Documented By: TOSHA Vancomycin HCl (Vancomycin Hcl 125 Mg Capsule) 125 mg PO Q6H [facility] Stop: 04/23/25 07:14 Last Admin: 04/17/25 06:13 Dose: 125 mg Documented By: TOSHA Vitamin D (Cholecalciferol (Vitamin D3) 25 Mcg Tablet) 50 mcg PO DAILY [facility] Last Admin: 04/16/25 09:41 Dose: 50 mcg Documented By: RACHEL Labs 04/17/25 06:49 04/17/25 06:49 Labs: Laboratory Results - last 24 hr 04/16/25 04/16/25 04/17/25 06:25 18:10 06:49 MCV 100.6 H MCH 34.5 H MCHC 34.3 RDW 13.7 Plt Count 142 L MPV 10.2 Immature Gran % (Auto) 0.5 H Neut % (Auto) 53.9 Lymph % (Auto) 35.2 [place] % (Auto) 7.2 Eos % (Auto) 2.4 Baso % (Auto) 0.8 Lymph # (Auto) 2.2 [place] # (Auto) 0.4 Eos # (Auto) 0.2 Baso # (Auto) 0.1 Abs Immat Gran (auto) 0.03 Absolute Neuts (auto) 3.3 Absolute Nucleated RBC 0.000 Nucleated RBC % (auto) 0.0 Anion Gap 11 L 14 Estim Creat Clear Calc 127.5 133.5 Estimated GFR > 60 > 60 Random Glucose 109 139 H Calcium 7.9 L 8.3 L Phosphorus 3.7 3.2 3.0 Magnesium 1.5 L 1.3 L* Albumin 2.8 L Assessment and Plan (1) Alcohol withdrawal: Status: Acute (2) Clostridium difficile colitis: Status: Acute Plan Patient is a 49-year-old female with a past medical history significant for alcohol use disorder with history of alcohol withdrawal and seizures, cocaine use disorder, history C diff, pancreatitis, hypertension, and mood disorder, who presented to the ED by her PCP due to abnormal labs. Acute C diff colitis Vancomycin 125 mg p.o. q.i.d. x14 days ID consult Acute hypokalemia and hypomagnesemia In the setting of above as well as poor po intake and alcohol use disorder Continue aggressive repletion with IV and p.o. supplements Monitor on tele Follow CBC and BMP Bilateral leg pain and hand cramping CPK WNL, bilateral LE venous US negative for DVT Calcium WNL Likely secondary to hypomagnesmia Aggressive Mag replenishment as above Alcohol use disorder Monitor CIWA Given IV thiamine in ED Continue PO thiamine, folate, and multivitamin Addiction med consult Doing well on Ativan protocol, continue for now Diet Pt receiving TPN due to severe electroyte abnormalities Pt requesting advancing diet to full Continue TPN today, re-evaluate tomorrow and discontinue if tolerating full diet Prolonged QT EKG with prolonged QT, likely due to lyte abnormalities Avoid QT prolonging agents Replenish electrolytes as above HTN Continue home meds when appropriate Mood disorder Continue home meds Full code VTE prophy: Lovenox Pt requires continued hospitalization due to continued electrolyte abnormalities and inability to tolerate full p.o. Quality Stroke Does the patient have a stroke diagnosis?: No VTE Prior VTE?: No VTE Risk Level:: Medical - moderate - high VTE Device Contraindication: Treatment Not Indicated VTE Drug Contraindication: N/A - Med Ordered
[2025-04-17] MEDS: Folic Acid 1 MG TABLET PO (09:17)
[2025-04-17] MEDS: Cholecalciferol (Vitamin D3) 25 MCG TABLET 50 MCG PO (09:18)
[2025-04-17] MEDS: Multivitamin TABLET 1 TAB PO (09:18)
[2025-04-17] MEDS: amLODIPine Besylate 5 MG TABLET PO (09:18)
[2025-04-17] MEDS: Magnesium Oxide 400 MG TABLET PO (09:18)
[2025-04-17] MEDS: Escitalopram Oxalate 20 MG TABLET PO (09:18)
[2025-04-17] MEDS: Thiamine HCL 100 MG TABLET PO (09:18)
[2025-04-17] MEDS: Magnesium Sulfate/H2O 2 GM/50 ML PIGGYBACK IV (09:19)
[2025-04-17] MEDS: Sucralfate Oral Suspension 1 GM/10 ML ORAL.SUSP PO ×4 (09:33→21:58)
[2025-04-17] MEDS: Morphine Sulfate 4 MG/ML CARTRIDGE 2 MG IVPUSH ×4 (09:33→21:59)
--- NOTE | 2025-04-17 10:37 | MHC.CM.PN ---
EMR REVIEWED, PT W/ELECTROLYTE IMBALANCE AND STARTED ON TPN 04/16, P.T. RECOMMENDING STR HOWEVER PT WILL NEED TO BE OFF TPN, PER HOSPITALIST PT WILL REMAIN INPT THROUGH W/E, CM WILL CONT TO FOLLOW DC NEEDS.
--- NOTE | 2025-04-17 11:00 | MHC.CLN ---
F/U PT REQUIRES NUTRITION SUPPORT VIA TPN DIET ADVANCED TO F/L REVIEWED LABS DISCUSSED WITH PHARMACY RECOMMEND TPN INCREASE TO 55ML/HR TO PROVIDE 937KCALS, 198G DEXTROSE, 66G PROTEIN (1.2G/KG) CHECK TRIGS REPLETE LYTES NEEDED 04/18/25 RECOMMEND CONTINUE TPN AT MAX GOAL RATE 55ML/HR WITH 52G LIPIDS TO PROVIDE 1457KCALS (30KCALS/KG), 198G DEXTROSE, 66G PROTEIN (1.2G/KG) REPLETE LYTES NEEDED PT IS AT RISK FOR RE-FEEDING R/T ETOH ABUSE, DRUG ABUSE AND CHRONIC POOR PO INTAKE MONITOR K+, MG AND PHOS CLOSELY RD CAN BE REACHED DURING OFF HOURS VIA TIGER CONNECT IF NEEDED
[2025-04-17 11:14] LABS: Triglycerides 115 mg/dL (<150)
[2025-04-17 11:53] VITALS: BP 162/81; PULSE 72; RESP 17; TEMP 36.1; O2SAT 95
[2025-04-17 12:26] LABS: Appearance Urine Clear; Color Urine Yellow; Glucose Urine UA Negative (Negative); Leukocyte Esterase Urine Negative (Negative); Nitrite Urine Negative (Negative); PH 7.5 (5.0-9.0); Urine Blood Negative (Negative); Urine Ketones Negative (Negative); Urine Protein Negative (Neg-Trace)
--- NOTE | 2025-04-17 15:50 | MHC.RECOVRN ---
Addiction Consult Met with pt in 485-1 after receiving addiction consult to discuss EtOH use, recovery supports, and other resources. Identified and reaffirmed existing recovery supports; Discussed strategies for continued engagement in treatment. Pt declined outpatient JAM appointment for tx of her AUD at this time. Pt declined to speak with provider in regards to WEI initiation at this time. Written materials provided and reviewed with pt. CCC pamphlet offered per pt inquiry. No questions/concerns offered at this time. Discussed with Manuelito Paul, NAIL [employer]ER
[2025-04-17 15:56] VITALS: BP 130/75; PULSE 70; RESP 16; TEMP 36.3; O2SAT 96
--- NOTE | 2025-04-17 16:51 | W.PM.IDCN ---
History of Present Illness Data of Consult Service Date: 04/17/25 Requesting physician: Megan Seo Primary Care Provider: Ayala Patton MD HPI Reason for consult: diarrhea,Cdiff She has h/o etoh disorder and low potassium and magnesium. She has Cdiff Review of Systems Review of Systems: Yes all other systems are reviewed and are negative [facility] Past Medical History Medical History Alcohol use disorder, severe, dependence Clostridium difficile colitis Hypertension Alcohol use disorder Pancreatic insufficiency Gastroesophageal reflux disease Essential hypertension Mood disorder Cannabis use disorder Hepatitis C Tobacco use disorder Surgical History Surgical History H/O colonoscopy (~01/2023) Social History Social History Household Members: Spouse Household Members Other:: son Housing: Apartment Do you presently have visiting nurse or other home services: No Alcohol intake: current Alcohol intake frequency: other Alcohol type: hard liquor Comment: Pt refusing alarms, steady gait Patient Tobacco Use Status: Current everyday Tobacco user Tobacco use type: Cigarette Cigarette Packs Per Day: 0.5 Cigarettes Per Day: 10 e-Cigarette/Vaping Use: Currently Using Second Hand Smoke Exposure: No Substance Use Type: Crack/Cocaine and Marijuana Advance Directives Date on File: 12/10/23 service: No Meds Allergies Allergy/AdvReac Type Severity Reaction Status Date / Time No Known Allergies Allergy Verified 04/14/25 21:24 Active Medications: Current Medications Acetaminophen (Acetaminophen 325 Mg Tablet) 975 mg PO Q6H PRN PRN Reason: Pain, Mild 1-3,fever,headache Amlodipine Besylate (Amlodipine Besylate 5 Mg Tablet) 5 mg PO DAILY [facility]; Protocol Last Admin: 04/17/25 09:18 Dose: 5 mg Calcium Carbonate (Calcium Carbonate 750 Mg Tab.Chew) 750 mg PO Q4H PRN PRN Reason: Heartburn Clonidine HCl (Clonidine Hcl 0.1 Mg Tablet) 0.1 mg PO TID PRN; Protocol PRN Reason: Anxiety Enoxaparin Sodium (Enoxaparin Sodium 40 Mg/0.4 Ml Syringe) 40 mg SUBCUT Q24H [facility] Last Admin: 04/17/25 06:12 Dose: 40 mg Escitalopram Oxalate (Escitalopram Oxalate 20 Mg Tablet) 20 mg PO DAILY [facility] Last Admin: 04/17/25 09:18 Dose: 20 mg Folic Acid (Folic Acid 1 Mg Tablet) 1 mg PO DAILY [facility] Stop: 04/18/25 08:59 Last Admin: 04/17/25 09:17 Dose: 1 mg Nutrition (Parenteral) (Parenteral Nutrition) 840 mls @ 35 mls/hr IV .Q24H [facility]; Protocol Stop: 04/17/25 20:59 Last Admin: 04/16/25 20:53 Dose: 35 mls/hr Nutrition (Parenteral) (Parenteral Nutrition) 1,320 mls @ 55 mls/hr IV .Q24H [facility]; Protocol Stop: 04/18/25 20:59 Lorazepam (Lorazepam 1 Mg Tablet) 1 mg PO Q4H PRN PRN Reason: Breakthrough alcohol withdrawa Stop: 04/19/25 06:33 Last Admin: 04/16/25 11:21 Dose: 1 mg Lorazepam (Lorazepam 1 Mg Tablet) 0.5 mg PO Q6H [facility]; Taper Stop: 04/19/25 09:59 Last Admin: 04/17/25 09:18 Dose: 0.5 mg Magnesium Hydroxide (Milk Of Magnesia 30 Ml Oral.Susp) 30 ml PO DAILY PRN PRN Reason: Constipation Magnesium Oxide (Magnesium Oxide 400 Mg Tablet) 400 mg PO DAILY [facility] Last Admin: 04/17/25 09:18 Dose: 400 mg Melatonin (Melatonin 3 Mg Tablet) 6 mg PO BEDTIME PRN PRN Reason: Insomnia Morphine Sulfate (Morphine Sulfate 4 Mg/Ml Cartridge) 2 mg IVPUSH Q4H PRN; Protocol PRN Reason: Pain, Severe (Pain Scale 7-10) Last Admin: 04/17/25 13:31 Dose: 2 mg Multivitamins/Vitamin C (Multivitamin Tablet) 1 tab PO DAILY [facility] Stop: 04/18/25 08:59 Last Admin: 04/17/25 09:18 Dose: 1 tab Oxycodone HCl (Oxycodone Hcl Immed Release 5 Mg Tablet) 5 mg PO Q6H PRN PRN Reason: Pain, Moderate(Pain Scale 4-6) Pantoprazole Sodium (Pantoprazole Sodium 40 Mg/10 Ml Vial) 40 mg IVPUSH BID@0630,1630 [facility] Last Admin: 04/17/25 06:12 Dose: 40 mg Pharmacy Consult (Consult Rx Parenteral Nutrition Ordering) 1 each MISCELLANE DAILY PRN PRN Reason: Consult order Sodium Chloride (0.9 % Sodium Chloride Flush 3 Ml Syringe) 3 ml IVFLUSH QSHIFT [facility] Last Admin: 04/17/25 14:54 Dose: Not Given Sucralfate (Sucralfate Oral Suspension 1 Gm/10 Ml Oral.Susp) 1 gm PO QID [facility] Last Admin: 04/17/25 13:30 Dose: 1 gm Thiamine HCl (Thiamine Hcl 100 Mg Tablet) 100 mg PO DAILY [facility] Stop: 04/18/25 08:59 Last Admin: 04/17/25 09:18 Dose: 100 mg Trazodone HCl (Trazodone Hcl 100 Mg Tablet) 100 mg PO BEDTIME PRN PRN Reason: Insomnia Last Admin: 04/16/25 22:33 Dose: 100 mg Vancomycin HCl (Vancomycin Hcl 125 Mg Capsule) 125 mg PO Q6H [facility] Stop: 04/23/25 07:14 Last Admin: 04/17/25 13:30 Dose: 125 mg Vitamin D (Cholecalciferol (Vitamin D3) 25 Mcg Tablet) 50 mcg PO DAILY [facility] Last Admin: 04/17/25 09:18 Dose: 50 mcg Home Medications ?Medication ?Instructions ?Recorded ?Confirmed ?Last Taken ?Type cholecalciferol (vitamin D3) 50 50 mcg PO DAILY 11/01/23 04/15/25 01/23/25 History mcg (2,000 unit) tablet folic acid 1 mg tablet 1 mg PO DAILY 11/01/23 04/15/25 01/23/25 History pantoprazole 40 mg tablet,delayed 40 mg PO DAILY@0630 11/01/23 04/15/25 01/23/25 History release clonidine HCl 0.1 mg tablet 0.1 mg PO TID PRN Anxiety 12/10/23 04/15/25 06/23/24 History citalopram 40 mg tablet 40 mg PO DAILY 02/26/24 04/15/25 01/23/25 History thiamine HCl (vitamin B1) 100 mg 100 mg PO DAILY 09/26/24 04/15/25 01/23/25 History tablet trazodone 100 mg tablet 100 mg PO BEDTIME PRN insomnia 10/27/24 04/15/25 Unknown History sucralfate 100 mg/mL oral 10 ml PO QID 01/26/25 04/15/25 01/23/25 History suspension magnesium oxide 400 mg PO DAILY 04/15/25 04/15/25 Unknown History Physical Exam Vital Signs: Vital Signs: Last Vital Signs Temp 97.3 F 04/17/25 15:56 Pulse 70 04/17/25 15:56 Resp 16 04/17/25 15:56 BP 130/75 04/17/25 15:56 Pulse Ox 96 04/17/25 15:56 O2 Del Method Room Air 04/17/25 15:56 BMI result Body Mass Index 20.0 Const: General: cooperative HEENT: Head: Yes normal to inspection Face and sinus: Yes normal facial exam Mouth: Normal oral and palatal mucosa present Teeth and gingiva: dentition normal Eyes: General: appearance normal, both eyes and all related structures Pupils: Equal, round and reactive pupils present Resp: Effort & Inspection: normal respiratory effort Cardio: Rate: regular rate Rhythm: regular rhythm GI: Palpation (GI): Soft to palpation and nontender : General: Yes no CVA tenderness Back/Spine/Pelvis: Back: no CVA tenderness Skin: General skin exam: no rashes or lesions noted Neuro: General: moves all extremities Cranial nerves: Yes Equal, round and reactive pupils present Extrem: General: Yes normal to inspection Psych: Appearance: grossly normal Results Labs 04/18/25 07:09 04/18/25 07:09 Labs: Short CBC 04/17/25 Range/Units 06:49 WBC 6.1 (4.8-10.8) X10*3/uL Hgb 11.8 L (12.0-16.0) g/dl Hct 34.4 L (37.0-47.0) % Plt Count 142 L (160-400) X10*3/uL BMP 04/16/25 04/17/25 18:10 06:49 Sodium 146 H 144 Potassium 3.2 L D 3.8 Chloride 111 H 109 H Carbon Dioxide 27 25 BUN < 3 L < 3 L Creatinine 0.44 L 0.42 L Calcium 7.9 L 8.3 L Liver Function 04/17/25 Range/Units 06:49 Albumin 2.8 L (3.5-5.0) g/dL Urine 04/17/25 Range/Units 11:58 Urine Color Yellow Urine Appearance Clear Urine pH 7.5 (5.0-9.0) Ur Specific [place] 1.010 (1.005-1.025) Urine Protein Negative (Neg-Trace) mg/dL Urine Glucose (UA) Negative (Negative) mg/dL Assessment and Plan (1) Alcohol use disorder, severe, dependence: Status: Acute (2) Clostridium difficile colitis: Status: Acute Plan Treat Cdiff 125 qid for 14 days,then taper 125 tid for a week,125 bid for a week,125 every other day for a week and then 125 mg every ,,Sunday. Would give this three times a week indefinitely
[2025-04-17 19:59] VITALS: BP 140/69; PULSE 74; RESP 16; TEMP 36.2; O2SAT 94
[2025-04-17] MEDS: Parenteral Nutrition 1,320 ML 55 ML IV (21:58)
[2025-04-17] MEDS: traZODone HCL 100 MG TABLET PO (21:58)
[2025-04-17] MEDS: LORazepam 0.5 MG TABLET PO (21:58)
[2025-04-18] VITALS: BP 146/78; PULSE 72; RESP 16; TEMP 36.6; O2SAT 96
[2025-04-18] MEDS: Morphine Sulfate 4 MG/ML CARTRIDGE 2 MG IVPUSH ×5 (02:12→22:38)
[2025-04-18] MEDS: vancomycin HCL 125 MG CAPSULE PO ×4 (02:13→18:09)
[2025-04-18] MEDS: LORazepam 0.5 MG TABLET PO ×4 (04:00→22:37)
[2025-04-18] MEDS: Pantoprazole Sodium 40 MG/10 ML VIAL IVPUSH ×2 (06:29→16:26)
[2025-04-18] MEDS: Enoxaparin Sodium 40 MG/0.4 ML SYRINGE SUBCUT (06:29)
[2025-04-18 07:21] LABS: MANUAL DIFF FLAG NO
[2025-04-18 07:26] LABS: Basophils Percent Auto 0.5 % (0-2); Eosinophils Absolute Auto 0.2 X10*3/uL (0.0-0.4); Eosinophils Percent Auto 2.4 % (0-4); Hematocrit 35.3 % (37.0-47.0); Imm Gran Abs Auto 0.02 X10*3/uL (0.00-0.03); Imm Gran Pct Auto 0.3 % (0.0-0.4); Lymphocytes Absolute Auto 2.5 X10*3/uL (1.2-4.9); Lymphocytes Percent Auto 37.6 % (20-40); Mean Corpuscular Hemoglobin 34.5 pg (27.0-33.0); Mean Corpuscular Volume 101.4 fL (80.0-98.0); Monocytes Absolute Auto 0.5 X10*3/uL (0.1-1.2); Monocytes Percent Auto 7.8 % (2-11); Neutrophils Absolute Auto 3.4 x10*3/uL (2.0-8.3); Neutrophils Percent Auto 51.4 % (45-73); Platelet Count 126 X10*3/uL (160-400); Red Blood Count 3.48 X10*6/uL (4.20-5.50); Red Cell Distribution Width 13.5 % (11.0-16.0); White Blood Count 6.6 X10*3/uL (4.8-10.8)
[2025-04-18 07:44] LABS: Albumin Level 3.1 g/dL (3.5-5.0); Anion Gap 11 (12-20); Blood Urea Nitrogen < 3 mg/dL (9-16); Calcium 9.1 mg/dL (8.4-10.2); Carbon Dioxide 30 mmol/L (22-29); Chloride 106 mmol/L (96-108); Creatinine Clr Calc Pharmacy 124.6; Estimated Glomerular Filt Rate > 60; Glucose Random 110 mg/dL (60-115); Lipase 37 U/L (8-78); Phosphorus 5.1 mg/dL (2.7-4.5); Potassium 3.9 mmol/L (3.3-5.1); Sodium 143 mmol/L (135-145)
[2025-04-18 07:54] VITALS: BP 130/72; PULSE 88; RESP 20; TEMP 36.3; O2SAT 95
[2025-04-18 07:57] LABS: Magnesium 1.3 mg/dL (1.6-2.6)
[2025-04-18] MEDS: Escitalopram Oxalate 20 MG TABLET PO (09:23)
[2025-04-18] MEDS: amLODIPine Besylate 5 MG TABLET PO (09:24)
[2025-04-18] MEDS: Magnesium Oxide 400 MG TABLET PO (09:24)
[2025-04-18] MEDS: Cholecalciferol (Vitamin D3) 25 MCG TABLET 50 MCG PO (09:24)
[2025-04-18] MEDS: Sucralfate Oral Suspension 1 GM/10 ML ORAL.SUSP PO ×4 (09:24→22:37)
[2025-04-18] MEDS: Magnesium Sulfate/H2O 2 GM/50 ML PIGGYBACK IV ×2 (09:27→22:38)
[2025-04-18 11:52] VITALS: BP 151/74; PULSE 75; RESP 18; TEMP 36.6; O2SAT 97
[2025-04-18 15:18] VITALS: BP 147/72; PULSE 73; RESP 18; TEMP 36.6; O2SAT 96
--- NOTE | 2025-04-18 15:27 | P.PNIM_ITS ---
Subjective Subjective Date of Service: 04/18/25 Interval History: Feeling much better Tolerating full diet Diarrhea significantly improved, only 1 bowel movement since last night Pain and muscle spasms in hands and legs improved No nausea, vomiting, abdominal pain Less anxious Review of Systems negative except for that which is stated in the HPI Physical Exam 2 Vital Signs: Vital Signs: Last Vital Signs Temp 97.9 F 04/18/25 15:18 Pulse 73 04/18/25 15:18 Resp 18 04/18/25 15:18 BP 147/72 H 04/18/25 15:18 Pulse Ox 96 04/18/25 15:18 O2 Del Method Room Air 04/18/25 15:18 BMI result Body Mass Index 20.0 General: AOx3, no acute distress. More responsive than yesterday Resp: CTA bilaterally CVS: S1, S2, RRR GI: +BS, NT, no distention Skin: Warm, dry Neuro: Cranial nerves II-XII grossly intact bilaterally. Motor grossly intact bilaterally Extremities: No edema. Bilateral hands with preserved ROM, no contracture noted Psych: Appropriate affect. Calm, cooperative Objective Data Active Medications Acetaminophen (Acetaminophen 325 Mg Tablet) 975 mg PO Q6H PRN PRN Reason: Pain, Mild 1-3,fever,headache Amlodipine Besylate (Amlodipine Besylate 5 Mg Tablet) 5 mg PO DAILY [facility]; Protocol Last Admin: 04/18/25 09:24 Dose: 5 mg Documented By: VENKATA Calcium Carbonate (Calcium Carbonate 750 Mg Tab.Chew) 750 mg PO Q4H PRN PRN Reason: Heartburn Clonidine HCl (Clonidine Hcl 0.1 Mg Tablet) 0.1 mg PO TID PRN; Protocol PRN Reason: Anxiety Enoxaparin Sodium (Enoxaparin Sodium 40 Mg/0.4 Ml Syringe) 40 mg SUBCUT Q24H [facility] Last Admin: 04/18/25 06:29 Dose: 40 mg Documented By: KEVIN Escitalopram Oxalate (Escitalopram Oxalate 20 Mg Tablet) 20 mg PO DAILY [facility] Last Admin: 04/18/25 09:23 Dose: 20 mg Documented By: VENKATA Nutrition (Parenteral) (Parenteral Nutrition) 1,320 mls @ 55 mls/hr IV .Q24H [facility]; Protocol Stop: 04/18/25 20:59 Last Admin: 04/17/25 21:58 Dose: 55 mls/hr Documented By: KEVIN Lorazepam (Lorazepam 1 Mg Tablet) 1 mg PO Q4H PRN PRN Reason: Breakthrough alcohol withdrawa Stop: 04/19/25 06:33 Last Admin: 04/16/25 11:21 Dose: 1 mg Documented By: RACHEL Lorazepam (Lorazepam 0.5 Mg Tablet) 0.5 mg PO Q6H [facility] Stop: 04/19/25 09:59 Last Admin: 04/18/25 14:55 Dose: 0.5 mg Documented By: VENKATA Magnesium Hydroxide (Milk Of Magnesia 30 Ml Oral.Susp) 30 ml PO DAILY PRN PRN Reason: Constipation Magnesium Oxide (Magnesium Oxide 400 Mg Tablet) 400 mg PO DAILY [facility] Last Admin: 04/18/25 09:24 Dose: 400 mg Documented By: VENKATA Melatonin (Melatonin 3 Mg Tablet) 6 mg PO BEDTIME PRN PRN Reason: Insomnia Morphine Sulfate (Morphine Sulfate 4 Mg/Ml Cartridge) 2 mg IVPUSH Q4H PRN; Protocol PRN Reason: Pain, Severe (Pain Scale 7-10) Last Admin: 04/18/25 14:55 Dose: 2 mg Documented By: VENKATA Oxycodone HCl (Oxycodone Hcl Immed Release 5 Mg Tablet) 5 mg PO Q6H PRN PRN Reason: Pain, Moderate(Pain Scale 4-6) Pantoprazole Sodium (Pantoprazole Sodium 40 Mg/10 Ml Vial) 40 mg IVPUSH BID@0630,1630 [facility] Last Admin: 04/18/25 06:29 Dose: 40 mg Documented By: KEVIN Sodium Chloride (0.9 % Sodium Chloride Flush 3 Ml Syringe) 3 ml IVFLUSH QSHIFT [facility] Last Admin: 04/18/25 14:47 Dose: Not Given Documented By: VENKATA Non-Admin Reason: IV Running Sucralfate (Sucralfate Oral Suspension 1 Gm/10 Ml Oral.Susp) 1 gm PO QID [facility] Last Admin: 04/18/25 12:29 Dose: 1 gm Documented By: VENKATA Trazodone HCl (Trazodone Hcl 100 Mg Tablet) 100 mg PO BEDTIME PRN PRN Reason: Insomnia Last Admin: 04/17/25 21:58 Dose: 100 mg Documented By: KEVIN Vancomycin HCl (Vancomycin Hcl 125 Mg Capsule) 125 mg PO Q6H [facility] Stop: 04/30/25 07:14 Last Admin: 04/18/25 12:30 Dose: 125 mg Documented By: VENKATA Vitamin D (Cholecalciferol (Vitamin D3) 25 Mcg Tablet) 50 mcg PO DAILY [facility] Last Admin: 04/18/25 09:24 Dose: 50 mcg Documented By: VENKATA Labs 04/18/25 07:09 04/18/25 07:09 Labs: Laboratory Results - last 24 hr 04/18/25 07:09 MCV 101.4 H MCH 34.5 H MCHC 34.0 RDW 13.5 Plt Count 126 L MPV 10.0 Immature Gran % (Auto) 0.3 Neut % (Auto) 51.4 Lymph % (Auto) 37.6 [place] % (Auto) 7.8 Eos % (Auto) 2.4 Baso % (Auto) 0.5 Lymph # (Auto) 2.5 [place] # (Auto) 0.5 Eos # (Auto) 0.2 Baso # (Auto) 0.0 Abs Immat Gran (auto) 0.02 Absolute Neuts (auto) 3.4 Absolute Nucleated RBC 0.000 Nucleated RBC % (auto) 0.0 Anion Gap 11 L Estim Creat Clear Calc 124.6 Estimated GFR > 60 Random Glucose 110 Calcium 9.1 D Phosphorus 5.1 H Magnesium 1.3 L* Albumin 3.1 L Lipase 37 Assessment and Plan (1) Clostridium difficile colitis: Status: Acute Plan Patient is a 49-year-old female with a past medical history significant for alcohol use disorder with history of alcohol withdrawal and seizures, cocaine use disorder, history C diff, pancreatitis, hypertension, and mood disorder, who presented to the ED by her PCP due to abnormal labs. Acute C diff colitis Vancomycin 125 mg p.o. q.i.d. x14 days (day 3) ID consult Acute hypokalemia and hypomagnesemia In the setting of above as well as poor po intake and alcohol use disorder Potassium WNL today, Mag still low at 1.3 Continue aggressive repletion with IV and p.o. supplements Monitor on tele Follow CBC and BMP Bilateral leg pain and hand cramping Resolved in hands, improving in legs CPK WNL, bilateral LE venous US negative for DVT, Calcium WNL Likely secondary to hypomagnesmia Aggressive Mag replenishment as above Alcohol use disorder Monitor CIWA Given IV thiamine in ED Continue PO thiamine, folate, and multivitamin Addiction med consult Doing well on Ativan protocol, continue for now Diet Initially receiving TPN due to severe electroyte abnormalities Pt tolerating full diet, will stop TPN Prolonged QT EKG with prolonged QT, likely due to lyte abnormalities Avoid QT prolonging agents Replenish electrolytes as above HTN Continue amlodipine Mood disorder Continue citalopram and clonidine Full code VTE prophy: Lovenox Pt requires continued hospitalization due to continued electrolyte abnormalities. Quality Stroke Does the patient have a stroke diagnosis?: No VTE Prior VTE?: No VTE Risk Level:: Medical - moderate - high VTE Device Contraindication: Treatment Not Indicated VTE Drug Contraindication: N/A - Med Ordered
[2025-04-18 20:00] VITALS: BP 144/68; PULSE 81; RESP 16; TEMP 36.3; O2SAT 96
[2025-04-18] MEDS: Melatonin 3 MG TABLET 6 MG PO (22:37)
[2025-04-18] MEDS: traZODone HCL 100 MG TABLET PO (22:37)
[2025-04-19] VITALS: BP 109/63; PULSE 66; RESP 16; TEMP 36.7; O2SAT 96
[2025-04-19 04:00] VITALS: BP 126/61; PULSE 65; RESP 16; TEMP 36.7; O2SAT 95
[2025-04-19] MEDS: Pantoprazole Sodium 40 MG/10 ML VIAL IVPUSH (04:11)
[2025-04-19] MEDS: LORazepam 0.5 MG TABLET PO (04:11)
[2025-04-19] MEDS: Enoxaparin Sodium 40 MG/0.4 ML SYRINGE SUBCUT (04:11)
[2025-04-19] MEDS: vancomycin HCL 125 MG CAPSULE PO ×2 (04:11→08:46)
[2025-04-19] MEDS: Morphine Sulfate 4 MG/ML CARTRIDGE 2 MG IVPUSH ×3 (04:12→13:13)
[2025-04-19 07:14] LABS: Anion Gap 12 (12-20); Blood Urea Nitrogen 4 mg/dL (9-16); Calcium 9.2 mg/dL (8.4-10.2); Carbon Dioxide 32 mmol/L (22-29); Chloride 106 mmol/L (96-108); Creatinine Clr Calc Pharmacy 140.3; Estimated Glomerular Filt Rate > 60; Glucose Random 120 mg/dL (60-115); Magnesium 1.7 mg/dL (1.6-2.6); Phosphorus 4.1 mg/dL (2.7-4.5); Potassium 3.3 mmol/L (3.3-5.1); Sodium 147 mmol/L (135-145)
[2025-04-19 07:25] VITALS: BP 158/76; PULSE 68; RESP 18; TEMP 36.4; O2SAT 96
[2025-04-19] MEDS: Escitalopram Oxalate 20 MG TABLET PO (08:45)
[2025-04-19] MEDS: Cholecalciferol (Vitamin D3) 25 MCG TABLET 50 MCG PO (08:45)
[2025-04-19] MEDS: Sucralfate Oral Suspension 1 GM/10 ML ORAL.SUSP PO ×2 (08:45→08:48)
[2025-04-19] MEDS: Magnesium Oxide 400 MG TABLET PO (08:46)
[2025-04-19] MEDS: amLODIPine Besylate 5 MG TABLET PO (08:46)
[2025-04-19] MEDS: 0.9 % Sodium Chloride Flush 3 ML SYRINGE IVFLUSH (08:46)
[2025-04-19] MEDS: cloNIDine HCL 0.1 MG TABLET PO (08:55)
[2025-04-19 11:19] VITALS: BP 111/59; PULSE 64; RESP 16; TEMP 36.3; O2SAT 92
--- NOTE | 2025-04-19 13:49 | P.DS_ITS ---
DS: Providers Provider Date of Service: 04/19/25 Date of admission: 04/15/25 06:17 Date of discharge: 04/19/25 Primary care physician: Ayala Patton MD Consults: 04/15/25 06:14 Addiction Medicine Provider Routine Consulting Provider: Addiction Covering Reason for consultation: etoh Has provider been notified: No 04/15/25 23:13 Consult to Infectious Diseases Routine Consulting Provider: [facility] Reason for consultation: recurrent c diff Has provider been notified: No DS: Diagnosis Discharge Diagnosis (1) Clostridium difficile colitis: Status: Acute DS: Summary Hospital Course Hospital Course: From admission HPI: Date of Service: 04/15/25 Attending physician on admission: Jeremias Heath Chief Complaint: Abnormal labs Patient is a 49-year-old female with a past medical history significant for alcohol use disorder with history of alcohol withdrawal and seizures, cocaine use disorder, history C diff, pancreatitis, hypertension, and mood disorder, who presented to the ED by her PCP due to abnormal labs. The patient reports that she has had diarrhea and lower abdominal pain for the past few days and has been having diarrhea at least 8 times a day, loose without any blood or melena. She denies any nausea or vomiting. Her pain is mostly in the epigastric region. She also complains of bilateral leg pain which she describes as aching. She denies any recent injuries or falls. She also denies any recent antibiotics or travel. She usually drinks about 5-6 shots of hard liquor daily, last drink was yesterday. She reports poor appetite and p.o. intake for the past few weeks. Last cocaine use was earlier today. The patient does report nausea and vomiting to the ED provider but denied this when asked by me. The patient is a very poor historian. 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 Pt was seen and evaluated by ID and s tarted on p.o. vancomycin 125 mg q.i.d. Hospital course was complicated by continued significant hypomagnesemia and hypokalemia despite aggressive supplementation. Pt had PICC line inserted by IR and was started on TPN which was continued for 2 days. Pt also experienced bilateral leg pain and upper extremity tetany likely secondary to hypomagnesemia. Pt was monitored on CIWA and treated with Ativan protocol to good effect. Patient's nausea, vomiting, diarrhea, and appetite eventually improved, and she was able to tolerate a full diet. Upper extremity tentany resolved, though continued to experience some lower leg pain and tingling. Pt was offered Addiction medicine services which she declined. Patient's last diarrhea was over 36 hours ago; last bowel movement earlier this morning which was formed and at baseline. This morning patient's electrolytes WNL. Pt is set to be discharged on a short 7-day course of gabapentin 300 mg t.i.d. for poor for neuropathy, increase of magnesium supplementation to 400 mg b.i.d., and a complex vancomycin 125 mg p.o. taper: Take one capsule 4 times a day x10 days, then one capsule 3 times a day x7 days, one capsule twice a day x7 days, one capsule every other day x7 days. After taper, take one capsule every Mon/Wed/Fri indefinitely. For alcohol use disorder, pt is strongly encouraged to abstain from alcohol and seek both social, family, and professional services for Addiction management. Continue folic acid and thiamine. For GERD with hx of alcoholic gastritis and pancreatitis, continue pantoprazole and sucralfate For HTN continue amlodipine For mood disorder continue citalopram and clonidine Time Attestation Discharge Coordination Time (in mins): 38 Quality: Safe Use of Opioids Does Pt have an Active Cancer Diagnosis on the Problem List?: No Quality: Stroke Does the patient have a stroke diagnosis?: No Physical Exam Vital Signs: Vital Signs: Last Vital Signs Temp 97.3 F 04/19/25 11:19 Pulse 64 04/19/25 11:19 Resp 16 04/19/25 11:19 BP 111/59 L 04/19/25 11:19 Pulse Ox 92 04/19/25 11:19 O2 Del Method Room Air 04/19/25 11:19 BMI result Body Mass Index 20.0 General: AOx3, no acute distress Resp: CTA bilaterally CVS: S1, S2, RRR GI: +BS, NT, no distention Skin: Warm, dry Neuro: Cranial nerves II-XII grossly intact bilaterally. Motor grossly intact bilaterally Extremities: No edema Psych: Appropriate affect DS: Data Data Completed and Pending Completed studies during hospitalization [Text1]: Procedures Detoxification Services for Substance Abuse Treatment (01/25/25) Labs on day of discharge: Laboratory Results - last 24 hr 04/19/25 06:31 Sodium 147 H Potassium 3.3 Chloride 106 Carbon Dioxide 32 H Anion Gap 12 BUN 4 L Creatinine 0.40 L Estim Creat Clear Calc 140.3 Estimated GFR > 60 Random Glucose 120 H Calcium 9.2 Phosphorus 4.1 Magnesium 1.7 Albumin 3.0 L Discharge Plan Discharge Anticipated Discharge Date/Time: 04/19/25 11:36 Patient Disposition: Home, Self-Care Discharge Diagnosis: Acute C Diff Colitis Referrals: Ayala Patton MD [Primary Care Provider, Internal Medicine] - 1 Week Discharge Medications: New gabapentin 300 mg capsule 300 mg PO TID Qty: 21 0RF Rx Instructions: Take one capsule three times daily for neuropathy vancomycin 125 mg capsule 125 mg PO QID Qty: 120 0RF Rx Instructions: Complex taper: Take one capsule 4 times a day x10 days, then one capsule 3 times a day x7 days, one capsule twice a day x7 days, one capsule every other day x7 days. After taper, take one capsule every Mon/Wed/Fri indefinitely. Continued pantoprazole 40 mg tablet,delayed release (DR/EC) 40 mg PO DAILY@0630 folic acid 1 mg tablet 1 mg PO DAILY cholecalciferol (vitamin D3) 50 mcg (2,000 unit) tablet 50 mcg PO DAILY clonidine HCl 0.1 mg tablet 0.1 mg PO TID PRN (Reason: Anxiety) citalopram 40 mg tablet 40 mg PO DAILY amlodipine 5 mg Tablet 5 mg PO DAILY Qty: 90 0RF Protocol: Hold for SBP< HOLD for SBP < : 90 thiamine HCl (vitamin B1) 100 mg tablet 100 mg PO DAILY trazodone 100 mg tablet 100 mg PO BEDTIME PRN (Reason: insomnia) sucralfate 100 mg/mL suspension 10 ml PO QID magnesium oxide 400 mg magnesium tablet 400 mg PO BID Qty: 180 0RF Rx Instructions: Take one capsule twice a day Discharge Orders: Discharge Order (Routine); Ordered 04/19/25 Ordered By: Megan Seo Activity on Discharge: As tolerated Stand Alone Forms: Patient Portal Discharge page Print Language: [place] Care Plan Goals: Take oral vancomycin 125 mg as indicated for C-Diff colitis Abstain from alcohol Resume home meds Health Concerns: Electrolyte abnormalities Intractable diarrhea Plan of Treatment: Pt should follow a complex taper of Vancomycin 125mg for recurrent C-Diff colitis: Take one capsule 4 times a day x10 days, then one capsule 3 times a day x7 days, one capsule twice a day x7 days, one capsule every other day x7 days. After taper, take one capsule every Mon/Wed/Fri indefinitely. Take gabapentin 300 mg up to 3 times daily for neuropathic pain Increase magnesium supplementation to 400 mg twice a day Follow up with PCP in 1 week for routine post-hospitalization follow up and repeat labs Follow up with Infectious Disease in 3 weeks Pt is strongly recommended to abstain from alcohol Pt is strongly encouraged to use both home/family/social and professional services for alcohol use disorder Assessment: See discharge summary
--- NOTE | 2025-04-19 14:10 | MHC.CM.PN ---
Pt has been medically cleared to [place], she will go home via private transport, plan is self care.
== END 2025-04-19 14:26 | disposition home or self-care (01) | DRG 248 ==
LOC: HO.ED 04-15 06:27 → HO.EDOVER 04-15 06:38 → HO.IMC 04-15 16:25
PROVIDERS: Emergency Medicine; Hospitalist; Admitting Provider Physician Assistant; Emergency Provider Emergency Medicine; PCP Internal Medicine; Visit Provider Student in an Organized Health Care Education/Training Program
DX: A04.72 Enterocolitis due to Clostridium difficile, not specified as recurrent (principal); E83.42 Hypomagnesemia; F10.20 Alcohol dependence, uncomplicated; F14.10 Cocaine abuse, uncomplicated; I10 Essential (primary) hypertension; F17.210 Nicotine dependence, cigarettes, uncomplicated; E87.6 Hypokalemia; Z71.6 Tobacco abuse counseling; R94.31 Abnormal electrocardiogram [ECG] [EKG]; Z79.899 Other long term (current) drug therapy
CPT/HCPCS: 36415; 36573; 74177; 80048; 80076; 80307; 81003; 82040; 82550; 83690; 83735; 84100; 84478; 85025; 86850; 86900; 86901; 87324; 87493; 87507; 93005; 93970; 99285; C1751; J1650; J2270; J2470; J3360; J3411; J3475; J3480; J7120; Q9967; S9485

== ENCOUNTER → 2025-04-14 21:22 | Outpatient (BNV) | payer OTHER, SELFPAY | PROVIDERS: Admitting Provider Physician Assistant; Emergency Provider Emergency Medicine; PCP Internal Medicine; Visit Provider Internal Medicine Cardiovascular Disease | DX: R00.1 Bradycardia, unspecified (principal) | CPT/HCPCS: 93010 ==

== ENCOUNTER 2025-04-15 06:17 | Outpatient (BNV) | payer OTHER, SELFPAY | END 2025-04-15 07:24 | PROVIDERS: Admitting Provider Physician Assistant; Emergency Provider Emergency Medicine; PCP Internal Medicine; Visit Provider Radiology Diagnostic Radiology | DX: K63.89 Other specified diseases of intestine (principal); M79.606 Pain in leg, unspecified | CPT/HCPCS: 93970 ==

== ENCOUNTER → 2025-04-15 06:17 | Outpatient (BNV) | payer OTHER, SELFPAY | PROVIDERS: Admitting Provider Physician Assistant; Emergency Provider Emergency Medicine; PCP Internal Medicine; Visit Provider Hospitalist | DX: F10.930 Alcohol use, unspecified with withdrawal, uncomplicated (principal); E83.42 Hypomagnesemia; E87.6 Hypokalemia; A04.72 Enterocolitis due to Clostridium difficile, not specified as recurrent | CPT/HCPCS: 99223; 99232; 99233; 99499 ==

== ENCOUNTER → 2025-04-15 06:17 | Outpatient (BNV) | payer OTHER, SELFPAY | PROVIDERS: Admitting Provider Physician Assistant; Emergency Provider Emergency Medicine; PCP Internal Medicine; Visit Provider Internal Medicine | DX: A04.72 Enterocolitis due to Clostridium difficile, not specified as recurrent (principal); F10.20 Alcohol dependence, uncomplicated | CPT/HCPCS: 99232 ==

== ENCOUNTER → 2025-04-15 06:17 | Outpatient (BNV) | payer OTHER, SELFPAY | PROVIDERS: Admitting Provider Physician Assistant; Emergency Provider Emergency Medicine; PCP Internal Medicine; Visit Provider Nurse Practitioner Psychiatric/Mental Health | DX: F10.20 Alcohol dependence, uncomplicated (principal) | CPT/HCPCS: 99222 ==

== ENCOUNTER 2025-05-13 14:01 | Outpatient (AMB) | payer OTHER, SELFPAY ==
--- NOTE | 2025-05-13 14:01 | A.OFFVIS_ITS ---
Vital Signs 05/13/25 14:08 Height 5 ft 4 in Weight 109 lb BMI 18.7 Pulse 83 Pulse Source Pulse Oximeter Pulse Oximetry (%) 98 Oxygen Delivery Method Room Air 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: [place] [facility] [place] reff/Vanco Cdiff ok verbal from Allergies No Known Allergies Allergy (Verified 05/13/25 14:08) HPI Comments Details: She has no concerns and feels well. [facility] Medical History Alcohol use disorder, severe, dependence Clostridium difficile colitis Hypertension Alcohol use disorder Pancreatic insufficiency Gastroesophageal reflux disease Essential hypertension Mood disorder Cannabis use disorder Hepatitis C Tobacco use disorder Surgical History H/O colonoscopy (~01/2023) Social History Household Members: Spouse Household Members Other:: son Housing: Apartment Do you presently have visiting nurse or other home services: No Alcohol intake: current Alcohol intake frequency: other Alcohol type: hard liquor Comment: Pt refusing alarms, steady gait Patient Tobacco Use Status: Current everyday Tobacco user Tobacco use type: Cigarette Cigarette Packs Per Day: 0.5 Cigarettes Per Day: 10 e-Cigarette/Vaping Use: Currently Using Second Hand Smoke Exposure: No Substance Use Type: Crack/Cocaine and Marijuana Advance Directives Date on File: 12/10/23 service: No Review of Systems Const All systems reviewed & are unremarkable except as noted in HPI and below Physical Exam Vital Signs: Last Vital Signs Pulse 83 05/13/25 14:08 Pulse Ox 98 05/13/25 14:08 Oxygen Delivery Method Room Air 05/13/25 14:08 BMI result Body Mass Index 18.7 Const General: cooperative Assessment & Plan Assessment & Plan (1) Alcohol dependence: Code(s): F10.20 - Alcohol dependence, uncomplicated Category: Medical Qualifiers: Substance use status: unspecified alcohol-induced disorder Qualified Code(s): F10.29 - Alcohol dependence with unspecified alcohol-induced disorder Plan See us as needed. No further medication at this time. Coding Level of Care Code Est Pt Level 3 (50710) Diagnoses Alcohol dependence F10.29 Substance use status: unspecified alcohol-induced disorder
[2025-05-13 14:08] VITALS: PULSE 83; O2SAT 98; BMI 18.7
--- OUTSIDE RECORDS SUMMARY | 2025-05-13 14:48 | XMS_ITS | Clinical Summary ---
Author Organization [address] Address [address] [place] [phone] Phone Care Team Providers Care Recreation Therapy Director Name Role Phone Unavailable Primary Care [...] 62 04/20/2021 10:54 PM EDT Temperature 36.4 C (97.6 F) 04/20/2021 5:09 PM EDT Respiratory Rate 15 04/20/2021 9:08 PM EDT [...] screening 04/06/2023 04/06/2021 Diabetes screening 04/20/2024 04/20/2021 Pneumococcal Vaccine (50+ years) (1 of 1 - PCV) 2024 Shingles vaccine (Shingrix) (1 of 2 - Shingrix (RZV) 2 Dose Standard Series) 2024 Covid-19 vaccine series (3 - season) 2024 03/22/2021, 03/01/2021 Influenza vaccine 06/29/2025 Tetanus adult (Td q 10,TDAP once) 03/08/2028 03/08/2018 RSV Immunization (1 - 1-dose 75+ series) 2049 Meningococcal Vaccine Aged Out No [...] 136 - 145 mmol/L 04/20/2021 4:42 PM [facility] Potassium 3.1(L) 3.5 - 5.1 mmol/L 04/20/2021 4:42 PM [facility] Chloride 103 98 - 107 mmol/L 04/20/2021 4:42 PM [facility] CO2 24 21 - 32 mmol/L 04/20/2021 4:42 PM [facility] Anion Gap 12 5 - 15 mmol/L 04/20/2021 4:42 PM [facility] Glucose 127(H) 65 - 110 mg/dL 04/20/2021 4:42 PM [facility] Comment: Non-fastin-110 mg/dL Fasting (minimum 6 hrs): 65-99 mg/dL BUN 13 7 - 18 mg/dL 04/20/2021 4:42 PM [facility] Creatinine 0.55 0.55 - 1.02 mg/dL 04/20/2021 4:42 PM [facility] eGFR (-MALDIVIAN) >60 >60 mL/min/1. 73m2 04/20/2021 4:42 PM [facility] eGFR (NON -Polish) >60 >60 mL/min/1. 73m2 04/20/2021 4:42 PM [facility] Comment: (NOTE) These are estimated GFR values resulting from utilization of a calculation incorporating the best data available for input, but all assumptions may not be correct in every case. In addition, there are several situations (elderly over 70 years, , serious co morbidities, extremes of body size or nutritional status) which could contribute to a misleading result. Therefore, clinical correlation is advised to prevent arriving at an erroneous conclusion based solely on the calculation utilized. Calcium 10.0 8.5 - 10.1 mg/dL 04/20/2021 4:42 PM [facility] Total Protein 7.3 6.4 - 8.2 g/dL 04/20/2021 4:42 PM [facility] Albumin 3.9 3.4 - 5.0 g/dL 04/20/2021 4:42 PM [facility] Globulin 3.4 2.5 - 5.0 g/dL 04/20/2021 4:42 PM [facility] Total Bilirubin 1.0 0.2 - 1.0 mg/dL 04/20/2021 4:42 PM [facility] Comment:Use of this assay is not recommended for patients undergoing treatment with Eltrombopag due to the potential for falsely elevated results. Alkaline Phosphatase 113 45 - 117 U/L 04/20/2021 4:42 PM [facility] Alanine Aminotransferase (ALT) 22 12 - 78 U/L 04/20/2021 4:42 PM [facility] Aspartate Aminotransferase (AST) 22 15 - 37 U/L 04/20/2021 4:42 PM [facility] Blood Venipuncture / Unknown 04/20/2021 4:09 PM EDT 04/20/2021 4:09 PM EDT Dallas Momin MD LAB BLOOD ORDERABLES Lisset ladi Result [address] [address], [facility] [phone] from Last 3 Months or Most Recently Relevant to Health Maintenance Insurance [id number] MED[id number] MEDICAID [id number] MEDICAID
--- OUTSIDE RECORDS SUMMARY | 2025-05-13 14:48 | XMS_ITS | Referral Summary ---
Author Organization [facility] Address [address] [place] [address] Care Team Providers Care Technical Publications Manager Name Role Phone Ayala Patton Primary Care Provider [phone] Allergies No known active allergies Medications No [...] 70 03/17/2024 3:45 PM EDT Temperature 36.1 C (97 F) 03/17/2024 11:10 AM EDT Respiratory Rate 18 03/17/2024 3:45 PM EDT Oxygen Saturation 97% 03/17/2024 3:45 PM EDT Inhaled Oxygen Concentration - - Weight 50.8 kg (112 lb) 09/01/2023 2:30 PM EDT Height 160 cm (5' 3 ) 09/01/2023 2:30 PM EDT Body Mass Index 19.84 09/01/2023 2:30 PM EDT Plan of Treatment Not on file Insurance [facility] MEDICAID Care Teams Technical Publications Manager Relationship Specialty Start Date End Date Ayala Patton PCP - General Internal Medicine 09/01/23
--- OUTSIDE RECORDS SUMMARY | 2025-05-13 14:48 | XMS_ITS | Encounter Summary ---
Author Organization [facility] Address [address] [place] [address] Phone Care Team Providers Care Animal Attendants And Trainers Name Role Phone Ayala Patton MD Primary Care Provider [phone] Encounter Details Date Type Department Care Team (Late st Contact Info) Description 03/07/2022 Documentation Only [facility] [address] [place] [phone] Naun Long MD [address] [place] [address], [facility] [address] [place] [address] Social History Tobacco Use Types Packs/Day Years [...] on filedocumented in this encounter Care Teams Animal Attendants And Trainers Relationship Specialty Start Date End Date Ayala Patton MD PCP - General Internal Medicine 04/11/22 documented as of this encounter
--- OUTSIDE RECORDS SUMMARY | 2025-05-13 14:49 | XMS_ITS | Data Portability ---
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 12/27/2012 Are There Any Guns Present In Your Home? No Information not available 02/09/2015 Live Alone Or With Others? With Others Father, Son Information not available 08/04/2011 Patient Has Health Care Proxy Signed And In Chart No Form Given To Pt 12/27/12, 02/09/15, 02/14/16 [email or web address] Information not available 12/27/2012 Marital Status Single Engaged Informatio n not available 08/30/2014 Mosquito Repellent Used Routinely Yes Information not available 02/09/2015 How Many Children Do You Have? 1 18 Yo Son-baseba ll Player Information not available 08/04/2011 What Is Your Current Pack Years? 10-19packyear s Information not available 02/09/2015 Seat Belts Used Routinely Yes Information not available 02/09/2015 Smoke Alarm In Home Yes Information not available 02/09/2015 General Stress Level High Information not available 02/14/2016 Do You Use Sunscreen Routinely? Yes Information not available 02/09/2015 How Many Years Have You Smoked Tobacco? 15 Information not available 02/09/2015 Sex: Unknown Functional Status Question Answer Note LastModified by Organizat ion Details LastModified Time What is your level of alcohol consumption? Heavy six pack daily . 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 Family History Relationship [...] at 47 y.o. Medical History Condition Response Depression Y Anxiety Y GASTROINTESTINAL Y Hepatitis C Y Hypertension Y Gynecological HistoryNo gynecological history recorded. Obstetrics History GPAL:G 0 P 0 0 0 0 Immunizations Vaccine Type Date Status Note Provider Nam e and Address Organization Details Recorded Time Hep B, unspecified formulation [address] [facility] 09/13/2011 05:21:07 pneumococcal polysaccharide PPV23 1 completed Not Available [facility] 11/15/2019 02:25:02 Tdap 8 completed Not Available [facility] 09/13/2011 05:22:52 Past Encounters Encounter ID Performer Location Encounter Start Date Encounter Closed Date Diagnosis/Indication Diagnosis SNOMED-CT Code Diagnosis ICD10 Code Diagnosis Note [id number] Tawnya Clinton NP , [facility], OFFICE [address] [place] [address] 11/16/2000 10:00:00 11/18/2008 02:02:29 [id number] Tawnya Clinton NP , [facility], OFFICE [address] [place] [address] 01/10/2001 14:00:00 11/18/2008 02:02:29 [id number] Tawnya Clinton NP , [facility], OFFICE [address] [place] [address] 05/10/2001 10:00:00 11/18/2008 02:02:29 [id number] Jaz Finn MD , [facility], OFFICE [address] [place] [address] 05/28/2001 16:00:00 11/18/2008 02:02:29 [id number] Jaz Finn MD , [facility], OFFICE [address] [place] [address] 07/10/2001 17:45:00 11/18/2008 02:02:29 [id number] Jaz Arias , [facility], OFFICE [address] [place] [address] 01/17/2002 12:15:00 11/18/2008 02:02:29 [id number] Kai Jason III, MD , [facility], OFFICE [address] [place] [address] 04/17/2002 10:20:07 11/18/2008 02:02:29 [id number] Lilli PASTRANA , [facility], OFFICE [address] [place] [address] 12/18/2002 14:54:56 11/18/2008 02:02:29 [id number] [facility] - [facility] [address] [place] [address] 12/18/2002 00:00:00 11/18/2008 02:02:29 [id number] Manuelito Vick , [facility], OFFICE [address] [place] [address] 08/17/2003 14:05:05 08/19/2003 16:27:37 [id number] [facility] - [facility] [address] [place] [address] 08/17/2003 00:00:00 11/18/2008 02:02:29 [id number] Lilli LAU, [facility], OFFICE [address] [place] [address] 11/11/2003 15:26:51 11/12/2003 09:09:15 [id number] Rodrigo LAU, [facility], OFFICE [address] [place] [address] 11/26/2003 12:59:26 11/27/2003 09:31:46 [id number] Lilli LAU, [facility], OFFICE [address] [place] [address] 12/09/2003 14:15:08 12/10/2003 09:13:45 [id number] Lilli LAU, [facility], OFFICE [address] [place] [address] 01/08/2004 14:12:01 01/11/2004 09:36:31 [id number] [facility] RADIOLOGY Techn[facility] st Radiology , [facility] [address] [place] [address] 12/23/2004 12:44:21 12/26/2004 08:03:16 [id number] Luanne Beaulieu MD , [address] [place] [address] 12/23/2004 11:49:50 12/23/2004 17:48:11 [id number] [facility] [address] [place] [address] 01/23/2005 16:09:16 01/23/2005 16:13:38 [id number] Maneulito Vick , [address] [place] [address] 01/23/2005 15:20:56 01/24/2005 08:55:33 [id number] Jaz Finn MD , [address] [place] [address] 02/10/2005 15:21:10 02/13/2005 08:51:43 [id number] Jaz Finn MD , [address] [place] [address] 07/14/2005 14:30:31 07/17/2005 10:48:35 [id number] Lilli PASTRANA , [address] [place] [address] 09/05/2005 16:37:12 09/15/2005 13:46:23 [id number] Rodrigo Ayala , [address] [place] [address] 02/12/2006 10:22:06 02/13/2006 09:06:45 [id number] Jaz Finn MD , [address] [place] [address] 02/26/2006 16:07:53 02/27/2006 08:49:54 [id number] Manuelito Vick , [address] [place] [address] 02/28/2006 13:51:39 03/02/2006 08:24:12 [id number] Jaz Finn MD , [address] [place] [address] 03/16/2006 14:09:59 03/19/2006 08:27:36 [id number] MD JUDI Zuniga, [facility], [address] [place] [address] 08/10/2006 13:51:26 08/13/2006 08:47:12 [id number] MD JUDI Zuniga, [address] [place] [address] 08/22/2006 14:40:10 08/23/2006 08:16:41 [id number] Rodrigo LAU, [address] [place] [address] 09/26/2006 13:41:51 09/27/2006 08:25:14 [id number] Rodrigo LAU, [address] [place] [address] 02/22/2007 15:09:10 02/25/2007 07:56:58 [id number] Manuelito Vick, [address] [place] [address] 04/02/2007 13:05:30 04/04/2007 07:38:40 [id number] Tawnya Clinton NP , [address] [place] [address] 06/11/2007 13:52:41 06/11/2007 17:08:59 [id number] [facility] - [address] [place] [address] 06/11/2007 14:23:28 06/11/2007 14:52:40 [id number] Rodrigo LAU, [address] [place] [address] 09/02/2007 14:05:55 09/04/2007 15:36:31 [id number] Jaz LAU, [address] [place] [address] 11/08/2007 09:23:38 11/18/2008 02:02:29 [id number] MICHELA Lopez, [address] [place] [address] 1 06/26/2008 10:08:15 11/18/2008 02:02:29 [id number] Ariel Gray NP , [facility] [address] [place] [address] 12/22/2008 16:09:59 12/24/2008 11:24:18 [id number] MICHELA Lopez, [facility], OFFICE [address] [place], [place] [address] 07/02/2009 15:39:57 07/06/2009 14:56:08 [id number] MICHELA Lopez, [facility], OFFICE [address] [place] [address] [place], [place] [address] 07/14/2010 10:47:54 07/14/2010 12:01:21 [id number] Velma LAU, [facility], OFFICE [address] [place] [address] [place] [address] 10/27/2010 15:08:19 10/27/2010 16:50:23 [id number] MICHELA Lopez, [facility], OFFICE [address] [place] [address] [place] [address] 01/20/2011 14:33:02 01/20/2011 16:06:09 [id number] MICHELA Lopez, [facility], OFFICE [address] [place] [address] [place] [address] 02/10/2011 13:43:48 02/10/2011 15:41:27 [id number] Velma LAU, [facility], OFFICE [address] [place] [address] [address] [place], [place] [address] 03/24/2011 15:41:59 03/24/2011 16:51:40 [id number] [facility] ULTRASOUND [employer] [employer] Radiology , [address] [place] [address] 04/13/2011 12:33:47 04/14/2011 11:16:32 [id number] MICHELA Lopez, [facility], OFFICE [address] [place] [address] [address] [place], [place] [address] 04/26/2011 15:06:38 04/26/2011 17:02:47 [id number] MICHELA Lopez, [facility], OFFICE [address] [place] [address] [address] [place], [place] [address] 08/04/2011 13:43:47 08/04/2011 14:26:29 [id number] Velma LAU [facility], OFFICE [address] [place] [address] [address] [place], [place] [address] 11/08/2012 13:26:37 11/08/2012 13:49:54 [id number] Velma Graves D.O. [facility], OFFICE [address] [place] [address] 12/27/2012 13:08:11 12/27/2012 14:02:22 [id number] Velma Graves D.O. [facility], OFFICE [address] [place] [address] 04/11/2013 13:30:43 04/11/2013 14:01:36 [id number] Barbie Booth PA-C [facility], OFFICE [address] [place] [address] 05/13/2013 11:50:23 05/13/2013 12:31:13 [id number] Singh Rowland MD [facility], OFFICE [address] [place] [address] 1 06/10/2013 14:09:11 06/11/2013 07:29:21 Epigastric pain 35823109 Likely muti-facto rial gastritis- smoker, not eating [...] viral load. Urinary tr act infectious disease 63461236 Continue to hydrate. Flank pain after pyelonephr itis can last several weeks. Spasm of back muscles 807401633 MOist heat followed by stretchign and massage encouraged . Trial of muscle relaxer--c aution may cuase drowsiness . [id number] Velma Graves D.O. [facility], OFFICE [address] [place] [address] 07/15/2013 14:40:44 07/15/2013 15:24:14 Benign essential hypertension 1302123 Blood pressure at goal C/W lisinopril DIscussed importance of smoking cessation Tobacco user 355234500 D iscussed importance of smoking cessation. Pt not ready to quit. Spasm of back muscles 184949043 Backache 270487828 Persi stent upper back/cervi augustine pain. Little improvemen t with PT, exercises. Will get XRAY. RF on flexeril. May need to consider PSS consult. F/U prn. Panic attack 364377554 S table. RF [id number] Velma Griffin.OCesar , [facility], OFFICE [address] [place] [address] 02/06/2014 15:18:04 02/06/2014 15:54:32 Benign essential hypertension 1324722 Blood pressure at goal C/W lisinopril Adult heal th examination 340845054 see Risk Assessment and Lifestyle Change Counseling section above Pap today Immunizati ons UTD> Counseling 829790126 Tobacco user 105583345 D iscussed importance of smoking cessation. Pt not ready to quit. Screening for malignant neoplasm of cervix 982054432 Spasm of back muscles 330519893 Persistent . Will increase nortriptyl ine to 25 mg qpm Will call PSS for f/u appt Generalize d anxiety disorder 82473687 Persistent anxiety C/W citalopram 40 mg RF on lorazepam 0.5 mg tid prn Dysmenorrhea 741749693 3 months heavy, painful periods WIll get pelvic U/S r/o fibroids Cannot do estrogen d/t smoking Will schedule appt with [facility] to discuss Mirena. [id number] Trever vargas MD , [facility], OFFICE [address] [place] [address] 03/10/2014 14:28:19 03/10/2014 14:54:39 Spasm of back muscles 547493760 Symptomato logy indicative of muscle spasm, pt already on muscle relaxant and pain medication s, on previous visit PCP recommende d she called PSSP for evaluation . Today she tells me she will do this. Right uppe r quadrant pain 921035225 Pt with c/o new onset of RUQ pain, intensity 5/10 no real radiation or any other symptoms etiology? will need to r/o cholelithi asis, [ancreatit is. Pt agreable with plan. [id number] Velma Graves D.O. , [facility], OFFICE [address] [place] [address] 08/28/2014 14:43:38 08/28/2014 15:17:12 Benign essential hypertension 9158210 Blood pressure at goal RF today Generalize d anxiety disorder 74544617 Persistent anxiety C/W citalopram 40 mg RF on lorazepam 0.5 mg tid prn Gastroesop hageal reflux disease 194869254 restart Major depr essive disorder 330101498 stable on citalopram [id number] Singh Rowland MD , [facility], OFFICE [address] [place] [address] 11/02/2014 09:09:16 11/02/2014 10:03:23 Muscle pain 59865399 I believe her pains are all muscular see order separately placed this day reassurred Benign ess ential hypertension 0646753 Blood pressure near goal cont current regimen Generalize d anxiety disorder 20484548 Persistent anxiety C/W citalopram 40 mg RF on lorazepam 0.5 mg tid prn Gastroesop hageal reflux disease 730959272 asymptomat ic on PPI Major depr essive disorder 861408901 tearful in office fears etoh related liver dz but unable to quit stable on citalopram Alcohol dependence 94187739 ongoing moderation encouraged [id number] Maximiliano Vo PA-C , [facility], OFFICE [address] [place] [address] 01/14/2015 10:35:17 01/20/2015 15:11:06 Generalized anxiety disorder 60933868 Low back pain 440873952 has done PT in the past but [...] PT strategies routinely to manage her pain [id number] Velma Graves D.O. , [facility], OFFICE [address] [place] [address] 02/09/2015 13:37:24 02/09/2015 14:39:09 Adult health examination 406504247 see Risk Assessment and Lifestyle Change Counseling section above HM: [facility] 02/09 with 3 yr repeat. Immunizati ons UTD> Counseling 456341477 Benign ess ential hypertension 9846266 Blood pressure at goal C/w lisinopril Tobacco user 368160490 D iscussed importance of smoking cessation. Pt not ready to quit. Viral hepatitis C 76901293 Stable Completed treatment Alcohol dependence 88021709 denies any problem does not want to decrease intake Major depr essive disorder 629930924 Sxs worse past several weeks Will start wellbutrin 150 mg bid- start with qd dosing; reviewed potential side effects will c/w celexa 40 mg RTO 4 weeks for f/u Insomnia 894257987 [id number] Clara Jeff NP , [facility], OFFICE [address] [place] [address] 03/09/2015 07:49:06 03/09/2015 08:23:54 Tobacco user 281449075 Discussed importance of smoking cessation. Pt not ready to quit. Major depr essive disorder 990414517 First week difficult with menses but past 3 weeks little change Will c/w wellbutrin BID; if menses is again bad will d/c. If little change after 4 weeks will consider change in SSRI. will c/w celexa 40 mg RTO 4 weeks for f/u [id number] Velma Furcolo D.O. , [facility], OFFICE [address] [place] [address] 05/20/2015 11:12:26 05/20/2015 11:43:38 Tobacco user 658674334 Discussed importance of smoking cessation. Pt not ready to quit. Major depr essive disorder 966848225 doing well on wellbutrin but does have some increase in sleep problems will c/w med RF on lorazepam Generalize d anxiety disorder 00644349 Persistent anxiety C/W citalopram 40 mg, lorazepam RF on lorazepam 0.5 mg tid prn Low back pain 804479160 will d/c flexeril start soma 350 mg bid prn; reviewed possible side effects Insomnia 941080427 woren ing sleep past 3 weeks will incease trazodone to 150-200 mg qhs Dysuria 81307234 increas e odor, concentrat ion check UA, cx Night sweats 31142614 ch joon labs below [id number] Clara Jeff NP , [facility], OFFICE [address] [place] [address] 06/09/2015 10:34:59 06/09/2015 11:05:38 Low back pain 734596858 chronic lbp with worsening x week will d/c soma as not helpful return to cyclobenza jessica will stop ibuprofen and start Naprosyn 500 mg bid Encouraged alternate heat/ice. Declines PT- not helpful in past if no improvemen t in lbp will refer back to PSS. Dysuria 73248395 UA look s fine but did previously and was + e. coli increase odor, concentrat ion will tx with Cipro 500 mg bid x 7 days submit for cx [id number] Dexter Johnson MD , [facility], [address] [place] [address] 08/16/2015 15:55:26 08/16/2015 16:37:59 Insomnia 816074705 G47.00 Major depr essive disorder 409009875 F32.9 will refill this since seems to be infrequent , but informed in future controlled substances need to be through PCP Low back pain 224098725 M54.5 Acute on chronic. Udip neg here. Toradol for pain here and refer to [facility]- had bad experience at [facility] in past [id number] Velma Graves D.O. , [facility], OFFICE [address] [place] [address] 12/21/2015 14:46:43 12/21/2015 15:09:15 Nicotine dependence 81949409 Z87.891 not considerin g quitting Tobacco user 198107452 Z 72.0 Discussed importance of smoking cessation. Pt not ready to quit. Excessive and frequent menstruation 580355124 N92.1 will check labs and Pelvic U/S Abdominal pain 81174479 R10.9 hx adn tx for hep c check labs and U/S Benign ess ential hypertension 5704801 I10 BP at goal Alcohol dependence 87449 003 F10.20 cut down drinking 3 drinks 4 nights a week [id number] Velma Graves D.O. , [facility], OFFICE [address] [place] [address] 02/14/2016 13:33:25 02/14/2016 14:28:12 Major depressive disorder 566460412 F32.9 doing well on wellbutrin will c/w med RF on lorazepam Backache 012360245 M54.9 likely rhomboid strain advised heat/ice, given hand out will try tramadol for pain d/c flexeril as not helpful Cough 20547543 R05 R sided rhonchi cough in smoker will get CXR Adult heal th examination 477353699 Z00.00 see Risk Assessment and Lifestyle Change Counseling section above HM: [facility] 02/09 with 3 yr repeat; had menses today will rto 2 weeks Immunizati ons UTD> Benign ess ential hypertension 1729070 I10 BP at goal will c/w lisinopril Alcohol dependence 97910 003 F10.20 cut down drinking 3 drinks 4 nights a week Nicotine dependence 5629 4008 Z87.891 not considerin g quitting [id number] Velma Graves D.O. , [facility], OFFICE [address] [place] [address] 11/15/2016 15:38:05 11/16/2016 12:14:14 Screening for malignant neoplasm of cervix 288582188 Z12.4 Cigarette smoker 5244820 7 F17.210 not ready to quitunders tands we will c/t address Tobacco user 494351849 Z 72.0 Discussed importance of smoking cessation. Pt not ready to quit. Generalize d anxiety disorder 87471074 F41.1 Persistent , worsening anxietydis cussed possibly d/c wellbutrin but she declinesdi scussed change of celexa but she declinesdi scussed therapy but pt declines- done before and did not like itdo not want to go back on lorazapam since she has been off benzos for monthswill see if any benefit with hydroxyzin e, Gastroesop hageal reflux disease 060224882 K21.9 RF Vaginitis 30565894 N76.0 yeast on examwill tx with Diflucan Menorrhagia 629994534 N9 2.0 heavy, periods q 2 weeksus nml in Febwill refer to [facility]- Possibly consider Mirenacann ot do estrogen given smoking Alcohol dependence 92305 003 F10.20 C/t to drink 4-5 drinks a week which is a cut down from previouspt does not feel she has a problems with ETOH bc she does not need to drink and states she drinks out of boredomdis cussed the wide variety of presentati ons of ETOH dependence will c/t address Recurrent major depression 10159270 F33.9 mood low but stableanxi ety more of an issuesdisc uss some changes in meds (wellbutri n and celexa) but she declines. [id number] Velma Graves D.O. , [facility], OFFICE [address] [place] [address] 12/06/2016 13:52:05 12/06/2016 14:41:29 Cigarette smoker 24737673 F17.210 not ready to quitunders tands we will c/t address Tobacco user 603010466 Z 72.0 Discussed importance of smoking cessation. Pt not ready to quit. Acute urin doc tract infection 337446762 N39.0 UA + nitswill submit for cxwill tx with Bactrim DS bid x 7 dayspush fluids. Panic diso rder without agoraphobia 51830248 F41.0 did not find vistaril helpfulwil l return to lorazepam 0.5 mg bid Benzodiaze pine dependence 686023546 F13.20 using dailytried vistaril- not helpfulret urn to same dose lorazepama dvised will not increase dose Menorrhagia 436480887 N9 2.0 [facility] appt schedule for December Health Concerns Section Related Observation LastModified by Organization Detai ls LastModified Time None Recorded Concern Status LastModified by Organization Details LastModified Time None Recorded Advance Directives Directive N: given 08/04/11 Payers Insurance Date Sequence Insurance Name Policy Number Policy Castelan Covered Member ID Castelan Member ID Guarantor Name 06/10/2013 1 [place] [facility] Jackelyn Bledsoe [id number] Jackelyn Bledsoe 12/27/2012 [employer] Jackelyn Bledsoe [id number] Jackelyn Bledsoe 10/23/2000 1 *SELF PAY* julissa Bledsoe 12/27/2012 [employer] Jackelyn Bledsoe 12/27/2012 [facility] [employer] Jackelyn Bledsoe [id number] Jackelyn Bledsoe 12/27/[address] [facility] [id number] 001 Jackelyn Bledsoe [id number] Jackelyn Bledsoe 05/13/2013 1 [facility] (POS) [id number] Jackelyn Bledsoe [id number] Jackelyn Bledsoe 12/27/2012 [employer] Jackelyn Bledsoe 01/16/2020 1 [facility] - HEALTH NET PLAN (MEDICAID HMO) [facility]00 1 Jackelyn Bledsoe [id number] Jackelyn Bledsoe Notes Date Note Type Note [...] No b/b incont. Maximiliano Vo PA-C [address] [place], [address], [facility] 08/16/2015 [...] RUQ abd pain. Intermittent. no weight loss.a/vmg-smoking [id number] bypatient.Physiologica l Dependence/Health RiskCurrently smoking 20 cigarettes per day Clara Jeff NP [address] [place], [address], [facility] 12/22/2015 [...] room and availability of urgent care at [facility] Assessment and Lifestyle Change Counseling-female 40-49Reported bypatient.Diet:Data Control Clerk ed about eating a diet low [...] Counseled about avoiding excessive and unsafe alcohol intakea/G-Hypertensi onReported bypatient.Duration:Chr onic Control:Well-controlle d; BP Goal Less qamx541/90; Treated with medications Compliance:Compliant with medications;Noncomplia nt [...] months. Duration:Currently smoking 20 cigarettes per loli/vmg-smoking [id number] bypatient.Readiness to quit smokingOn a scale of 1-10 with 1 being not ready and 10 being very ready the patient rates readiness to stop smoking as 2 Physiological Dependence/Health RiskCurrently smoking 20 cigarettes per day Clara Jeff NP [address] [place], [address], [facility] 02/14/2016 14:32:37 11/15/2016 text/html a/vmg-smoking [id number] bypatient.Readiness to quit smokingOn a scale of [...] in the morning. Clara Jeff NP [address] [place], [address], [facility] 11/16/2016 08:16:28 12/06/2016 text/html a/vmg-smoking [id number] bypatient.Readiness to quit smokingOn a scale of 1-10 with 1 being not ready and 10 being very ready the patient rates readiness to stop smoking as 3 Physiological Dependence/Health RiskCurrently smoking 20 cigarettes per dayNotes:not thinking about quittingnot ready to think about quitting Feeling more anxious now that she is on hydroxyzine 25 TID. [place] that the anxiety was controlled better with the lorazepam when she was on it Stated she had an attack on November 20 where she was taken to the hospital via EMS because she was tense, couldn t breathe, hands were curled, felt nausea, feels hot flashy. Unsure if she s having anxiety. Had another episode that [...] from 12 a day. Feels that she doesn t need support for quitting. Reports she is having periods every 2 weeks, reports that she has not seen a WALL COVERING INSTALLER yet for this has an appointment with [facility] C[employer] INST[facility] on 01/04. States she think her mother may have had menopause when she was early 40s. Is sexually active, not using control as her partner has a vasectomy. Clara Jeff NP [address] [place] [address], [place], [address], [facility] 12/06/2016 16:34:32 OBGyn Episode No OBEpisode recorded.
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
== END 2025-05-13 14:44 | disposition home or self-care (01) ==
LOC: HO.HID 14:01
PROVIDERS: PCP Internal Medicine; Visit Provider Internal Medicine
DX: F10.29 Alcohol dependence with unspecified alcohol-induced disorder (principal)
CPT/HCPCS: 99213

== ENCOUNTER → 2025-05-13 14:01 | Outpatient (BNVA) | payer OTHER, SELFPAY | PROVIDERS: PCP Internal Medicine; Visit Provider Internal Medicine | DX: F10.29 Alcohol dependence with unspecified alcohol-induced disorder (principal) | CPT/HCPCS: 99212 ==

== ENCOUNTER 2025-05-20 22:42 | Inpatient (IN) | payer OTHER, SELFPAY ==
--- NOTE | ~2025-05-20 | XR_ITS ---
CLINICAL HISTORY: Cough; Adventitious LS on R --- Additional Notes or Special Instructions: busy-2:48am 2 view chest x-ray Comparison: CR/SR - XR CHEST 1V - 09/28/24 08:37 EST Findings: No consolidation or effusion. Normal size heart. No acute fracture. IMPRESSION: 1. No acute findings. This document has been electronically signed by: Reggie Valle MD, PHD on 05/21/2025 03:39:25
--- NOTE | ~2025-05-20 | CT_ITS ---
EXAMINATION: CT ABDOMEN PELVIS WITH IV CONTRAST HISTORY: abd pain h/o pancreatitis COMPARISON: Comparison is made with the prior examination dated 04/15/2025. TECHNIQUE: CT scan of the abdomen and pelvis was performed following administration of 85 mL Omnipaque 350 using standard departmental protocol. Coronal and sagittal reformatted images were generated and reviewed. Oral contrast material was not administered at the request of the referring physician. This CT exam was performed with one or more of the following dose reduction techniques: automated exposure control, adjustment of the mA and/or kV according to patient size, use of iterative reconstruction technique. DLP: 290 mGy-cm FINDINGS: LOWER CHEST: The visualized lung bases are clear. There is no pleural effusion. CARDIOVASCULATURE: The heart is normal in size. There is no pericardial effusion. LIVER: The liver is normal in size and contour, but demonstrates heterogeneously decreased attenuation, consistent with steatosis. No liver mass is identified. The hepatic and portal veins are patent. GALLBLADDER / BILE DUCTS: The gallbladder is unremarkable. There is no intra or extrahepatic biliary ductal dilatation. SPLEEN: The spleen is normal in size. No focal splenic lesion is identified. PANCREAS: The pancreas is unremarkable in appearance. No peripancreatic inflammatory changes are identified to suggest acute pancreatitis. ADRENAL GLANDS: Within normal limits. KIDNEYS/RETROPERITONEUM: No renal calculi are identified. There is no hydronephrosis. No renal masses are identified. LYMPH NODES: No abdominal or pelvic lymphadenopathy. VASCULATURE: The abdominal aorta demonstrates atherosclerotic calcification, but is normal in caliber. MESENTERY/PERITONEUM: No free fluid. No masses. There is no free intraperitoneal gas. STOMACH: The stomach is collapsed, limiting evaluation. SMALL BOWEL: The small bowel is normal in caliber. COLON: There is diffuse mild to moderate wall thickening of the colon consistent with colitis. There is diverticulosis of the descending and sigmoid colon, without evidence of diverticulitis. APPENDIX: Normal. URINARY BLADDER/PELVIC ORGANS: The urinary bladder is unremarkable. An IUD is noted in the endometrial cavity of the uterus. The ovaries are unremarkable. BONES / SOFT TISSUES: No suspicious bony or soft tissue abnormalities. CT/CT abdomen pelvis w IV con IMPRESSION: 1. No CT evidence of acute pancreatitis. 2. Diffuse mild to moderate colonic wall thickening as seen previously, consistent with colitis. 3. Hepatic steatosis. Electronically signed by: Tarun Villagran MD 05/21/2025 07:10 AM EDT
[2025-05-20 22:56] VITALS: BP 116/61; PULSE 80; RESP 16; TEMP 36.4; O2SAT 98; BMI 18.7
--- NOTE | 2025-05-20 23:01 | ECG_ITS ---
Test Reason : ABNORMAL LABS Blood Pressure : */* mmHG Vent. Rate : 75 BPM Atrial Rate : 75 BPM P-R Int : 144 ms QRS Dur : 88 ms QT Int : 436 ms P-R-T Axes : 57 39 43 degrees QTcB Int : 486 ms Normal sinus rhythm Nonspecific ST abnormality Prolonged QT Abnormal ECG When compared with ECG of 14-Apr-2025 21:30, ST no longer depressed in Lateral leads QT has shortened Referred By: Generic ED Physician Electronically Signed By: Louie Last
[2025-05-20 23:31] LABS: Hematocrit 38.9 % (37.0-47.0); Hemoglobin 14.1 g/dl (12.0-16.0); Imm Gran Abs Auto 0.02 X10*3/uL (0.00-0.03); Imm Gran Pct Auto 0.2 % (0.0-0.4); Lymphocytes Absolute Auto 2.9 X10*3/uL (1.2-4.9); MANUAL DIFF FLAG NO; Mean Corpuscular HGB Conc 36.2 g/dl (31.0-35.0); Mean Corpuscular Hemoglobin 34.2 pg (27.0-33.0); Mean Corpuscular Volume 94.4 fL (80.0-98.0); NRBC Abs Auto 0.000 X10*3/uL (0.0-0.012); NRBC Pct Auto 0.0 /100WBC (0.0-0.2); Platelet Count 195 X10*3/uL (160-400); Red Blood Count 4.12 X10*6/uL (4.20-5.50); White Blood Count 9.1 X10*3/uL (4.8-10.8)
[2025-05-20 23:48] LABS: Alanine Aminotransferase 93 U/L (0-31); Albumin Level 4.0 g/dL (3.5-5.0); Alkaline Phosphatase 203 U/L (39-117); Anion Gap 12 (12-20); Aspartate Amino Transferase 280 U/L (5-31); Blood Urea Nitrogen 6 mg/dL (9-16); Calcium 8.8 mg/dL (8.4-10.2); Carbon Dioxide 28 mmol/L (22-29); Chloride 104 mmol/L (96-108); Creatinine Clr Calc Pharmacy 101.9; Estimated Glomerular Filt Rate > 60; Magnesium 1.3 mg/dL (1.6-2.6); Potassium 2.9 mmol/L (3.3-5.1); Sodium 141 mmol/L (135-145); Total Protein 6.7 g/dL (6.5-8.0)
[2025-05-20 23:52] LABS: Troponin-I High Sensitivity 5.3 ng/L (<3.5-17.0)
[2025-05-21 00:55] VITALS: BP 119/69; PULSE 62; RESP 18; TEMP 36.7; O2SAT 97
--- OUTSIDE RECORDS SUMMARY | 2025-05-21 01:04 | XMS_ITS | Referral Summary ---
Author Organization [facility] Address [address] [place] [address] Care Team Providers Care Monument Erector Name Role Phone Ayala Patton Primary Care Provider [phone] Allergies No known active allergies Medications No [...] Plan of Treatment Not on file Insurance [facility] MEDICAID Care Teams Monument Erector Relationship Specialty Start Date End Date Ayala Patton PCP - General Internal Medicine 09/01/23
--- OUTSIDE RECORDS SUMMARY | 2025-05-21 01:04 | XMS_ITS ---
Author Name [facility] Organization Unknown Care Team Organization Name Specialty Phone Email Start Date End Da te [facility] Ayala Patton Primary Care 09/05/2022 4
--- OUTSIDE RECORDS SUMMARY | 2025-05-21 01:04 | XMS_ITS | Encounter Summary ---
Author Organization [facility] Address [address] [place] [address] Phone Care Team Providers Care Marine Resource Economist Name Role Phone Ayala Patton MD Primary Care Provider [phone] Encounter Details Date Type Department Care Team (Late st Contact Info) Description 03/07/2022 Documentation Only [facility] [address] [place] [id number] Naun Long MD [address] [place] [address], [facility] [address] [place] [address] Social History Tobacco Use Types Packs/Day Years [...] on filedocumented in this encounter Care Teams Marine Resource Economist Relationship Specialty Start Date End Date Ayala Patton MD PCP - General Internal Medicine 04/11/22 documented as of this encounter
--- OUTSIDE RECORDS SUMMARY | 2025-05-21 01:05 | XMS_ITS | Clinical Summary ---
Author Organization [facility] [address] [place] [address] Address [address] [place] [address] Phone Care Team Providers Care Slip Dumper Name Role Phone Ayala Patton MD Primary Care Provider [phone] Allergies No known active allergies Medications folic [...] tablet 1 10/10/20 24 025 Discontinued(Re order) magnesium oxide (MAG-OX) 400 mg (241.3 elemental [...] Problem Noted Date Diagnosed Date Polysubstance abuse ([facility] V24, [facility] V28) 0 04/16/2025 Overview (04/16/2025): EtOH, cocaine, Percocet, marijuana Benign essential hypertension 04/16/2025 Contusion of multiple sites 04/16/2025 Underweight 04/16/2025 Major depressive disorder 04/16/2025 EtOH dependence ([facility] V24, [facility] V28) 09/02 GERD (gastroesophageal reflux disease) Hypertension 09/02/2024 Insomnia 09/02/2024 Cocaine abuse ([facility] V24, [facility] V28) 024 Pancreatitis 01/28/2024 Overview (09/02/2024): 01/19 [...] virus infection 11/22/2021 Overview (09/02/2024): 12.8.21 Seizure (CMS/HCC V24, CMS/HCC V28) 02/11/2021 Hyperlipidemia 03/13/2018 Anxiety and depression [...] episode of recurren t major depressive disorder ([facility] V24, [facility] V28) 09/02/2024 04/29/2025 Abnormal weight loss [...] Care Team Description 05/07/2025 Telephone Adult Medicine [address] [phone] Ayala Patton MD Provider call back 05/05/2025 1:00 PM EDT Office Visit Adult Medicine [address] [phone] Ayala Patton MD C. difficile colitis (Primary Dx); Benign essential hypertension; Diarrhea of presumed infectious origin; Hypokalemia; Hypomagnesemia; Alcohol dependence with other alcohol-induced disorder ([facility] V24, [facility] V28) 04/28/2025 1:36 PM EDT - 04/28/2025 11:59 PM EDT Hospital Encounter Radiology Department - [address] [phone] Screening mammogram for breast cancer Discharge Disposition: Home or Self Care 04/20/2025 Telephone Adult Medicine [facility] [address] [place] [address] Melina Nelson [place] Hospital Follow-up 04/14/2025 3:45 PM EDT Office Visit Adult Medicine [facility] [address] [place] [phone] Laura Nj PA Hypertension, unspecified type (Primary Dx); Bilateral hip pain; Acute bilateral knee pain; Vitamin D deficiency; Gastroesophageal reflux disease, unspecified whether esophagitis present; Mixed hyperlipidemia; Alcohol dependence with other alcohol-induced disorder (CMS/HCC V24, CMS/HCC V28); Polysubstance abuse (CMS/HCC V24, CMS/HCC V28) 04/14/2025 Telephone Adult Medicine [address] [phone] Amanda Martinez MD from Last 3 Months Immunizations Name Administration Dates Next Due Hepatitis A-Hepatitis B Adult (Twinrix) 18yo and older 08/21/2011 Hepatitis B (Ugnchcu-Z-Qkfok , Recombivax HB-Adult) 19yo and older 11/11/2003 [...] History Medical History Date Comments EtOH dependence (CMS/HCC V24 , CMS/HCC V28) Hypertension GERD (gastroesophageal reflux disease) Hep C w/o coma, chronic (CMS /HCC V24, CMS/HCC V28) 01/04/2017 s/p treatment [address] Sheets @ [facility] GI Insomnia Anxiety and depression [...] for your loved ones. For example, child care assistant or elderly care for an older adult? [...] Office Visit Gastroenterology - [address] [place] [address] Rachael Antonio PA [address] [place] [address] 09/14/2025 3:45 PM EST Office Visit Adult Medicine [facility] [address] [place] [address] Ayala Patton MD [address] [place] [address] Health Maintenance Due Date Last Done Comments [...] hyperlipidemia Alcohol dependence with other alcohol-induced disorder ([facility] V24, [facility] V28) VITAMIN D 25 HYDROXY Routine 05/05/2025 1:27 PM EDT Vitamin D deficiency Gastroesophageal reflux disease, unspecified whether esophagitis present Hypertension, unspecified type Mixed hyperlipidemia Alcohol dependence with other alcohol-induced disorder ([facility] V24, [facility] V28) COMPLETE BLOOD COUNT Routine 05/05/2025 1:27 PM EDT Vitamin D deficiency Gastroesophageal reflux disease, unspecified whether esophagitis present Hypertension, unspecified type Mixed hyperlipidemia Alcohol dependence with other alcohol-induced disorder ([facility] V24, CMS/HCC V28) LIPID PANEL WITH REFLEX TO DIRECT LDL Routine 05/05/2025 1:27 PM EDT Vitamin D deficiency Gastroesophageal reflux disease, unspecified whether esophagitis present Hypertension, unspecified type Mixed hyperlipidemia Alcohol dependence with other alcohol-induced disorder (CMS/HCC V24, CMS/HCC V28) MAGNESIUM Routine 05/05/2025 1:27 PM EDT [...] to direct LDL (05/05/2025 1:27 PM EDT) Cholesterol 110 0 - 200 mg/dL LAB CHEMISTRY METHOD 05/05/2025 9:54 PM EDT [facility] Triglycerides 291(H) 0 - 150 mg/dL LAB CHEMISTRY METHOD 05/05/2025 9:54 PM EDT [facility] HDL 31(L) >=40 mg/dL LAB CHEMISTRY METHOD 05/05/2025 9:54 PM EDT [facility] LDL Calculated 21 0 - 100 mg/dL LAB CHEMISTRY METHOD 05/05/2025 9:54 PM EDT [facility] VLDL Cholesterol Julien 58.2 mg/dL LAB CHEMISTRY METHOD 05/05/2025 9:54 PM EDT [facility] Non HDL Chol. (LDL+VLDL) 79 <145 mg/dL LAB CHEMISTRY METHOD 05/05/2025 9:54 PM EDT [facility] Chol/HDL Ratio 3.5 0.0 - 4.4 LAB CHEMISTRY METHOD 05/05/2025 9:54 PM EDT [facility] Blood Venous blood specimen / Unknown Venipuncture / Unknown 05/05/2025 1:27 PM EDT 05/05/2025 1:34 PM EDT us Laura PASTRANA LAB BLOOD ORDERABLES Final Re sult Performing Organization Address [facility]/ZIP Co de Phone Number [facility] [address] [place] [address], [place] [phone] * Vitamin D 25 hydroxy (05/05/2025 1:27 PM EDT) [facility] Vit D, 25-Hydroxy 69.8 30.0 - 80.0 ng/mL LAB CHEMISTRY METHOD 05/05/2025 11:09 PM EDT [facility] Blood Venous blood specimen / Unknown Venipuncture / Unknown 05/05/2025 1:27 PM EDT 05/05/2025 1:34 PM EDT us Laura PASTRANA LAB BLOOD ORDERABLES Final Re sult [facility] [address] [place] [address], [place] [phone] * (ABNORMAL) Complete blood count (05/05/2025 1:27 PM EDT) Pathologist [facility] WBC 9.5 4.8 - 10.8 K/[facility] LAB HEMETOLOGY METHOD 05/05/2025 5:07 PM EDT [facility] RBC 4.20 3.80 - 4.80 M/[facility] LAB HEMETOLOGY METHOD 05/05/2025 5:07 PM EDT [facility] Hemoglobin 13.9 11.5 - 16.0 g/dL LAB HEMETOLOGY METHOD 05/05[facility]2025 [facility] Hematocrit 40.9 35.0 - 47.0 % LAB HEMETOLOGY METHOD 05/05/2025 5:[facility] MCV 98.6(H) 79.0 - 98.0 FL LAB HEMETOLOGY METHOD 05/05/2025 5:[facility] MCH 33.5(H) 27.0 - 32.0 pcg LAB HEMETOLOGY METHOD 05/05/2025 5:07 PM [facility] MCHC 34.0 32.0 - 37.0 g/dL LAB HEMETOLOGY METHOD 05/05/2025 5:07 PM [facility] RDW 12.7 11.0 - 15.0 % LAB HEMETOLOGY METHOD 05/05/2025 5:07 PM [facility] Platelets 232 130 - 400 K/mcL LAB HEMETOLOGY METHOD 05/05/2025 5:07 PM [facility] MPV 11.1(H) 7.0 - 11.0 FL LAB HEMETOLOGY METHOD 05/05/2025 5:07 PM [facility] NRBC 0.0 <1.0 % LAB HEMETOLOGY METHOD 05/05/2025 5:07 PM [facility] NRBC Absolute 0.00 <0.10 K/mcL LAB HEMETOLOGY METHOD 05/05/2025 5:07 PM [facility] Blood Venous blood specimen / Unknown Venipuncture / Unknown 05/05/2025 1:27 PM EDT 05/05/2025 1:34 PM EDT us Laura PASTRANA LAB BLOOD ORDERABLES Final Re sult Performing Organization Address [facility] Co de Phone Number [facility] [address] [place] [address], * (ABNORMAL) Magnesium (05/05/2025 1:27 PM EDT) Only the most recent of2 resultswithin the time period is included. [facility] Magnesium 1.2(L) 1.9 - 2.6 mg/dL LAB CHEMISTRY METHOD 05/05/2025 9:31 PM EDT [facility] Blood Venous blood specimen / Unknown Venipuncture / Unknown 05/05/2025 1:27 PM EDT 05/05/2025 1:34 PM EDT Ayala Patton MD LAB BLOOD ORDERABLES Final Resul t Performing Organization Address [facility]/ZIP Co de Phone Number [facility] [address] [place] [address], * Vitamin B12 (05/05/2025 1:27 PM EDT) [facility] Vitamin B-12 521 250 - 900 pcg/mL LAB CHEMISTRY METHOD 05/05/2025 9:54 PM EDT [facility] Blood Venous blood specimen / Unknown Venipuncture / Unknown 05/05/2025 1:27 PM EDT 05/05/2025 1:34 PM EDT Laura PASTRANA LAB BLOOD ORDERABLES Final Re sult Performing Organization Address City/[facility]/ZIP Co de Phone Number [facility] [address] [place] [address], * (ABNORMAL) Basic metabolic panel (05/05/2025 1:27 PM EDT) [facility] Sodium 141 133 - 145 mmol/L LAB CHEMISTRY METHOD 05/05/2025 9:37 PM [facility] Potassium 3.2(L) 3.5 - 5.5 mmol/L LAB CHEMISTRY METHOD 05/05/2025 9:37 PM [facility] Chloride 103 96 - 110 mmol/L LAB CHEMISTRY METHOD 05/05/2025 9:37 PM [facility] CO2 32 21 - 32 mmol/L LAB CHEMISTRY METHOD 05/05/2025 9:37 PM [facility] Anion Gap 6 3 - 11 LAB CHEMISTRY METHOD 05/05/2025 9:37 PM [facility] Glucose 96 70 - 100 mg/dL LAB CHEMISTRY METHOD 05/05/2025 9:37 PM [facility] BUN 3(L) 5 - 25 mg/dL LAB CHEMISTRY METHOD 05/05/2025 9:37 PM [facility] Creatinine 0.50 0.50 - 1.10 mg/dL LAB CHEMISTRY METHOD 05/05/2025 9:37 PM [facility] eGFR 114 >=60 mL/min/1. 73m2 LAB CHEMISTRY METHOD 05/05/2025 9:37 PM [facility] Comment:Calculation based on the Chronic Kidney Disease Epidemiology Collaboration (CKD-EPI) equation refit without adjustment for race. BUN/Creatinine Ratio 6.0 LAB CHEMISTRY METHOD 05/05/2025 9:37 PM [facility] Calcium 9.4 8.5 - 10.5 mg/dL LAB CHEMISTRY METHOD 05/05/2025 9:37 PM [facility] Blood Venous blood specimen / Unknown Venipuncture / Unknown 05/05/2025 1:27 PM EDT 05/05/2025 1:34 PM EDT us Ayala Patton MD LAB BLOOD ORDERABLES Final Resul t [facility] [address] [place] [address], * MG Mammo Digital Screening w Raheel bilat (04/28/2025 1:41 PM EDT) Anatomical Region Laterality Modality Breast Bilateral Mammography 04/29/2025 5:07 PM EDT Impressions 04/29/2025 5:10 PM EDT Benign. BI-RADS CATEGORY: 1 - NEGATIVE RECOMMENDATION: Screening bilateral mammogram is recommended in 1 year. Mammo Location: [facility], [address] [place] [address], [id number], . -------- FINAL REPORT -------- Dictated By: Christiane Mendes Dictated Date: 04/29/2025 17:07 ET Assigned Physician: Christiane Mendes Reviewed and Electronically Signed By: Christiane Mendes Signed Date: 04/29/2025 17:10 ET Workstation ID: [id number] Transcribed By: Self Edit Transcribed Date: 04/29/2025 [...] is recommended in 1 year. Mammo Location: [facility], [address] [place] [address], [id number], . -------- FINAL REPORT -------- Dictated By: Christiane Mendes Dictated Date: 04/29/2025 17:07 ET Assigned Physician: Christiane Mendes Reviewed and Electronically Signed By: Christiane Mendes Signed Date: 04/29/2025 17:10 ET Workstation ID: [id number] Transcribed By: Self Edit Transcribed Date: 04/29/2025 17:07 ET Ayala Patton MD IM BI PROCEDURES Final Result * (ABNORMAL) Comprehensive metabolic panel (04/14/2025 4:30 PM EDT) Sodium 142 133 - 145 mmol/L LAB CHEMISTRY METHOD 04/14/2025 7:46 PM [facility] Potassium 1.9(LL) 3.5 - 5.5 mmol/L LAB CHEMISTRY METHOD 04/14/2025 7:46 PM [facility] Chloride 104 96 - 110 mmol/L LAB CHEMISTRY METHOD 04/14/2025 7:46 PM [facility] CO2 29 21 - 32 mmol/L LAB CHEMISTRY METHOD 04/14/2025 7:46 PM [facility] Anion Gap 9 3 - 11 LAB CHEMISTRY METHOD 04/14/2025 7:46 PM [facility] Glucose 142(H) 70 - 100 mg/dL LAB CHEMISTRY METHOD 04/14/2025 7:46 PM [facility] BUN 4(L) 5 - 25 mg/dL LAB CHEMISTRY METHOD 04/14/2025 7:46 PM [facility] Creatinine 0.45(L) 0.50 - 1.10 mg/dL LAB CHEMISTRY METHOD 04/14/2025 7:46 PM [facility] eGFR 117 >=60 mL/min/1. 73m2 LAB CHEMISTRY METHOD 04/14/2025 7:46 PM [facility] Comment:Calculation based on the Chronic Kidney Disease Epidemiology Collaboration (CKD-EPI) equation refit without adjustment for race. BUN/Creatinine Ratio 8.9 LAB CHEMISTRY METHOD 04/14/2025 7:46 PM [facility] Calcium 8.7 8.5 - 10.5 mg/dL LAB CHEMISTRY METHOD 04/14/2025 7:46 PM [facility] AST (SGOT) 195(H) 10 - 42 unit/L LAB CHEMISTRY METHOD 04/14/2025 7:46 PM [facility] ALT (SGPT) 75(H) 10 - 60 unit/L LAB CHEMISTRY METHOD 04/14/2025 7:46 PM [facility] Alkaline Phosphatase 210(H) 42 - 121 unit/L LAB CHEMISTRY METHOD 04/14/2025 7:46 PM [facility] Total Protein 5.7(L) 6.0 - 8.0 g/dL LAB CHEMISTRY METHOD 04/14/2025 7:46 PM [facility] Albumin 2.7(L) 3.2 - 5.0 g/dL LAB CHEMISTRY METHOD 04/14/2025 7:46 PM [facility] Total Bilirubin 0.5 0.0 - 1.4 mg/dL LAB CHEMISTRY METHOD 04/14/2025 7:46 PM [facility] Blood Venous blood specimen / Unknown Venipuncture / Unknown 04/14/2025 4:30 PM EDT 04/14/2025 4:30 PM EDT Ayala Patton MD LAB BLOOD ORDERABLES Final Resul t [facility] [address] [place] [address], [place] [phone] * Pap smear (12/16/2021) 12/16/2021 Narrative HISTORICAL TESTING LAB RESULTING AGENCY - 01/02/2022 4:00 PM EST [id number] THINPREP PAP, IMAGED: ATYPICAL SQUAMOUS CELLS OF [...] HX: 2018 ASCUS, UNKNOWN HPV, [Z12.4, Z01.419]. us Jesica Patel CNM LAB CYTOLOGY ORDERABLES Final Result HISTORICAL TESTING LAB RESULTING AGENCY from Last 3 Months or Most Recently Relevant to Health Maintenance Insurance * Guarantor: Jackelyn Bledsoe Account Type Relation to Patient Date of Phone Billing Address Personal/Family Self 1975 [phone] (Work) [address] [place] [address] [facility] Care Teams Slip Dumper Relationship Specialty Start Date End Date Ayala Patton MD [address] [place] [address] PCP - General Internal Medicine 10/24/21
--- NOTE | 2025-05-21 02:35 | ED.RECABL ---
HPI - Recheck/Abnormal Lab/Rx General Chief Complaint: Recheck/Abnormal Lab/Rx Stated Complaint: magnesium/tasium levels are low Time Seen by Provider: 05/21/25 02:25 Source: patient Mode of arrival: ambulatory Limitations: no limitations History of Present Illness ED Provider: [place] PASTRANA HPI narrative: The patient is a 49-year-old female with a history of daily alcohol use, approximately 5-6 alcoholic drinks daily, as well as occasional cocaine use, presenting to the ED reporting she was contacted by her PCP office at [facility] and advised she had extremely low potassium and magnesium levels, was advised to present to a local ED. the patient reports she has been suffering from C diff diarrhea which was diagnosed 3 months ago, is still taking p.o. vancomycin every other day, reports compliance with the antibiotics. Patient denies associated chest pain, shortness of breath, palpitations, abdominal pain, vomiting, urinary symptoms, or recent trauma. Patient reports she did use cocaine last night, reports last alcoholic drink was approximately 1-2 hours prior to arrival in the ED. Related Data Home Medications ?Medication ?Instructions ?Recorded ?Confirmed cholecalciferol (vitamin D3) 50 50 mcg PO DAILY 11/01/23 05/21/25 mcg (2,000 unit) tablet folic acid 1 mg tablet 1 mg PO DAILY 11/01/23 05/21/25 pantoprazole 40 mg tablet,delayed 40 mg PO DAILY@0630 11/01/23 05/21/25 release clonidine HCl 0.1 mg tablet 0.1 mg PO TID PRN Anxiety 12/10/23 05/21/25 citalopram 40 mg tablet 40 mg PO DAILY 02/26/24 05/21/25 thiamine HCl (vitamin B1) 100 mg 100 mg PO DAILY 09/26/24 05/21/25 tablet trazodone 100 mg tablet 100 mg PO BEDTIME PRN insomnia 10/27/24 05/21/25 sucralfate 100 mg/mL oral 10 ml PO QID 01/26/25 05/21/25 suspension vancomycin 125 mg capsule 125 mg PO Q48H 05/21/25 05/21/25 Previous Rx's ?Medication ?Instructions ?Recorded amlodipine 5 mg tablet 5 mg PO DAILY #90 tabs 06/11/24 magnesium oxide 400 mg PO BID #180 tabs 04/19/25 Allergies Allergy/AdvReac Type Severity Reaction Status Date / Time No Known Allergies Allergy Verified 05/20/25 22:59 Review of Systems Review of Systems: Yes all other systems are reviewed and are negative PMFSH Past Medical History Medical History Alcohol use disorder, severe, dependence Clostridium difficile colitis Hypertension Alcohol use disorder Pancreatic insufficiency Gastroesophageal reflux disease Essential hypertension Mood disorder Cannabis use disorder Hepatitis C Tobacco use disorder Surgical History H/O colonoscopy (~01/2023) Social History Social History Household Members: Significant Other Household Members Other:: son Housing: Apartment Do you presently have visiting nurse or other home services: No Alcohol intake: current Alcohol intake frequency: 3 or more drinks per day Alcohol type: hard liquor Comment: Pt refusing alarms, steady gait Patient Tobacco Use Status: Current everyday Tobacco user Tobacco use type: Cigarette Cigarette Packs Per Day: 0.5 Cigarettes Per Day: 10.0 e-Cigarette/Vaping Use: Currently Using Second Hand Smoke Exposure: No Substance Use Type: Crack/Cocaine and Marijuana Advance Directives Date on File: 12/10/23 service: No Physical Exam Vital Signs: Vital Signs: Last Vital Signs Temp 98.4 F 05/21/25 16:00 Pulse 70 05/21/25 16:00 Resp 16 05/21/25 16:00 BP 135/74 05/21/25 16:00 Pulse Ox 97 05/21/25 16:00 O2 Del Method Room Air 05/21/25 16:00 BMI result Body Mass Index 18.7 CONSTITUTIONAL: The patient appears mildly unkempt but otherwise non-toxic, well nourished and in no acute distress. Vital signs as documented. HEAD: Atraumatic, normocephalic. EYES: EOMs grossly intact, pupils equal, conjunctiva clear, no exudate. ENT: Nares patent, no discharge. Airway patent, no audible stridor, visible mucosa is pink and moist without noted lesions. NECK: Trachea is midline, no obvious masses or gross abnormalities. CHEST: Symmetric movement, normal appearance. LUNGS: LS present, left lung sounds are clear to auscultation, there is rhonchi versus rales noted in the right lower lung brooks. Non-labored work of breathing. CARDIAC: Regular Rhythm, S1/S2 appreciated, no murmurs, rubs or gallops. ABDOMEN: Abdomen soft x4 quadrants, positive bilateral upper quadrant tenderness, patient reports this is baseline. No palpable masses or organomegaly. : Deferred. EXTREMITIES: Normal tone, moves all extremities spontaneously without reported pain. No obvious acute injury or deformity noted. NEURO: Alert and oriented x3, CN II-XII appear grossly intact. Cerebellar Functioning grossly intact, no tremor. No obvious sensory or motor deficits. Speech clear and appropriate. PSYCH: normal affect, appropriate eye contact, fluid speech, with appropriate response to questioning. No reported suicidality or homicidality. SKIN: Warm, dry, color appropriate, normal turgor. No rashes noted. Medications Administered Generic Name Dose Route Start Last Admin Trade Name Freq PRN Reason Stop Dose Admin Enoxaparin Sodium 40 mg 05/21/25 06:30 05/21/25 07:07 Enoxaparin Sodium 40 Mg/0.4 Ml Syringe SUBCUT 40 mg Q24H SAMANTHA Administration Pantoprazole Sodium 40 mg 05/21/25 16:30 05/21/25 17:00 Pantoprazole Sodium 40 Mg/10 Ml Vial IVPUSH 40 mg BID@0630,1630 SAMANTHA Administration Potassium Chloride 80 meq 05/21/25 09:00 05/21/25 10:30 Potassium Chloride Packet 20 Meq Packet PO 80 meq BID SAMANTHA Administration Sodium Chloride 3 ml 05/21/25 08:00 05/21/25 17:00 0.9 % Sodium Chloride Flush 3 Ml Syringe IVFLUSH 3 ml QSHIFT SAMANTHA Administration Sucralfate 1 gm 05/21/25 17:00 05/21/25 17:00 Sucralfate Oral Suspension 1 Gm/10 Ml Oral.Susp PO 1 gm QID SAMANTHA Administration Vancomycin HCl 125 mg 05/21/25 17:00 05/21/25 17:00 Vancomycin Hcl 125 Mg Capsule PO 125 mg Q48H SAMANTHA Administration Discontinued Medications Generic Name Dose Route Start Last Admin Trade Name Freq PRN Reason Stop Dose Admin Potassium Chloride 10 meq in 100 mls @ 100 mls/hr 05/21/25 02:30 05/21/25 09:35 Potassium Chloride/H20 IV 05/21/25 06:29 Infused Q1H SAMANTHA Infusion Magnesium Sulfate 2 gm in 50 mls @ 150 mls/hr 05/21/25 02:30 05/21/25 03:09 Magnesium Sulfate/H2o IV 05/21/25 02:49 Infused ONCE ONE Infusion Sodium Chloride 1,000 mls @ 999 mls/hr 05/21/25 02:45 05/21/25 07:00 Ns IV 05/21/25 03:45 Infused .Q1H1M SAMANTHA Infusion Thiamine HCl 200 mg/ Sodium 102 mls @ 204 mls/hr 05/21/25 06:18 05/21/25 09:06 Chloride IV 05/21/25 06:47 Infused ONCE ONE Infusion Iohexol 85 ml 05/21/25 06:51 05/21/25 06:51 Iohexol 350 Mg/Ml 100 Ml Infus..Btl IV 05/21/25 06:52 85 ml ONCE ONE Administration Magnesium Oxide 400 mg 05/21/25 02:30 05/21/25 02:48 Magnesium Oxide 400 Mg Tablet PO 05/21/25 02:31 400 mg ONCE ONE Administration Pantoprazole Sodium 40 mg 05/21/25 06:35 05/21/25 08:37 Pantoprazole Sodium 40 Mg/10 Ml Vial IVPUSH 05/21/25 06:36 40 mg ONCE ONE Administration Phenobarbital Sodium 230 mg 05/21/25 06:30 05/21/25 08:36 Phenobarbital Sodium 130 Mg/Ml Im Once IM 05/21/25 06:31 230 mg ONCE ONE Administration Protocol Phenobarbital Sodium 173 mg 05/21/25 09:30 05/21/25 12:38 Phenobarbital Sodium 130 Mg/Ml Vial Im Q3hx2 IM 05/21/25 12:31 173 mg Q3H SAMANTHA Administration Protocol Potassium Chloride 40 meq 05/21/25 02:30 05/21/25 02:48 Potassium Chloride Er 20 Meq Tab.Er.Prt PO 05/21/25 02:31 40 meq ONCE ONE Administration Potassium Chloride 80 meq 05/21/25 06:10 05/21/25 07:07 Potassium Chloride Packet 20 Meq Packet PO 05/21/25 06:11 80 meq ONCE ONE Administration Potassium Chloride 40 meq 05/21/25 08:38 05/21/25 08:39 Potassium Chloride Packet 20 Meq Packet PO 05/21/25 08:39 40 meq ONCE ONE Administration Medical Decision Making Medical Decision Making [facility] Narrative: 3:06 AM 05/21/2025 (Vishal PASTRANA): The patient is a 49-year-old female presenting to the ED for evaluation of hypomagnesemia and hypokalemia in the setting of frequent diarrhea secondary to C diff diagnosis made 3 months ago. The patient's exam is notable for upper abdominal tenderness which patient states is unchanged from baseline, as well as right lower lung field rales versus rhonchi. We will add on chest x-ray to rule out pneumonia. The patient's laboratory evaluation reveals potassium 2.9 and magnesium 1.3. Remainder of laboratory evaluation is largely unremarkable, no anemia, leukocytosis, AMRIT, or other electrolyte abnormality. The patient will be treated with IV and p.o. repletion of potassium and magnesium. The patient does have a history of alcohol withdrawal seizures, currently the patient has no evidence of alcohol withdrawal. Patient has been advised to notify nursing if she develops any new symptoms concerning for alcohol withdrawal. I received sign-out from my colleague VICTORIANO Valentine -patient's electrolytes did not improve much. Patient will need more p.o. potassium. Patient was started on the phenobarb protocol I discussed the patient with Dr. Kam from the Medicine team, patient being admitted Differential Diagnosis Differential Diagnoses: The differential diagnosis associated with the presentation includes (As above) Admission/Observation Consideration of admission/observation: Escalation of care including admission/observation considered Lab Data [facility] Lab Attestation statement: I reviewed the patient's lab results. 05/20/25 23:26 05/21/25 05:19 Labs: Lab Results 05/20/25 05/21/25 Range/Units 23:26 05:19 WBC 9.1 (4.8-10.8) X10*3/uL RBC 4.12 L (4.20-5.50) X10*6/uL Hgb 14.1 (12.0-16.0) g/dl Hct 38.9 (37.0-47.0) % MCV 94.4 (80.0-98.0) fL MCH 34.2 H (27.0-33.0) pg MCHC 36.2 H (31.0-35.0) g/dl RDW 13.2 (11.0-16.0) % Plt Count 195 D (160-400) X10*3/uL MPV 9.5 (9.4-12.3) fL Immature Gran % (Auto) 0.2 (0.0-0.4) % Neut % (Auto) 60.9 (45-73) % Lymph % (Auto) 31.5 (20-40) % [place] % (Auto) 4.7 (2-11) % Eos % (Auto) 1.9 (0-4) % Baso % (Auto) 0.8 (0-2) % Lymph # (Auto) 2.9 (1.2-4.9) X10*3/uL [place] # (Auto) 0.4 (0.1-1.2) X10*3/uL Eos # (Auto) 0.2 (0.0-0.4) X10*3/uL Baso # (Auto) 0.1 (0.0-0.2) X10*3/uL Abs Immat Gran (auto) 0.02 (0.00-0.03) X10*3/uL Absolute Neuts (auto) 5.5 (2.0-8.3) x10*3/uL Absolute Nucleated RBC 0.000 (0.0-0.012) X10*3/uL Nucleated RBC % (auto) 0.0 (0.0-0.2) /100WBC Sodium 141 143 (135-145) mmol/L Potassium 2.9 L* 2.6 L* (3.3-5.1) mmol/L Chloride 104 105 (96-108) mmol/L Carbon Dioxide 28 26 (22-29) mmol/L Anion Gap 12 15 (12-20) BUN 6 L (9-16) mg/dL Creatinine 0.50 (0.5-1.4) mg/dL Estim Creat Clear Calc 101.9 Estimated GFR > 60 Random Glucose 125 H (60-115) mg/dL Calcium 8.8 (8.4-10.2) mg/dL Magnesium 1.3 L* 1.9 (1.6-2.6) mg/dL Total Bilirubin 0.8 (0.0-1.0) mg/dL AST 280 H (5-31) U/L ALT 93 H (0-31) U/L Alkaline Phosphatase 203 H (39-117) U/L Total Creatine Kinase 32 (26-140) U/L Troponin I High Sens 5.3 (<3.5-17.0) ng/L Total Protein 6.7 (6.5-8.0) g/dL Albumin 4.0 (3.5-5.0) g/dL Lipase 93 H (8-78) U/L Ethyl Alcohol 133 mg/dL Critical Care Time Critical Care Time Critical Care Time: Yes Total Critical Care Time: 45 Attestation: I have personally provided critical care time. Time includes review of lab data, radiology results, discussion with consultants, and monitoring for potential decompensation. Intervention performed as documented. Discharge Plan Discharge Clinical Impression: Acute hypokalemia, Hypomagnesemia, Alcohol dependence Patient Disposition: Home, Self-Care Interventions: Admission Worksheet (ED) Last Done: 05/21/25 14:08 Discharge Date/Time: 05/21/25 14:48
[2025-05-21] MEDS: Potassium Chloride ER 20 MEQ TAB.ER.PRT 40 MEQ PO (02:48)
[2025-05-21] MEDS: Magnesium Sulfate/H2O 2 GM/50 ML PIGGYBACK IV (02:49)
[2025-05-21] MEDS: Potassium Chloride/H20 10 MEQ/100 ML PIGGYBACK 100 MEQ IV ×4 (04:12→08:35)
[2025-05-21 05:18] VITALS: BP 122/73; PULSE 60; RESP 16; TEMP 36.7; O2SAT 98
[2025-05-21 05:46] LABS: Magnesium 1.9 mg/dL (1.6-2.6); Potassium 2.6 mmol/L (3.3-5.1)
--- NOTE | 2025-05-21 06:21 | PM.IMHP ---
History of Present Illness Date of Service: 05/21/25 Chief Complaint: Abnormal labs This is a 49-year-old female with pertinent history of alcohol use disorder with history of alcohol withdrawal seizures, mood disorder, tobacco use disorder, marijuana use disorder, history of hepatitis-C status post outpatient treatment, chronic pancreatic insufficiency, gastroesophageal reflux disease, hypertension, cocaine use disorder who presents to the emergency department for evaluation and management of low potassium and magnesium. Patient states she got blood work done outpatient at her PCP's office and she was called 1 day prior to presentation to go to the ER for evaluation of low potassium and magnesium. Admits she continues to drink alcohol every day, her last drink being 1 day prior to presentation. Patient also reports of ongoing loose stools, nonbloody and multiple episodes in the day. She is having epigastric pain which is intermittent, nonradiating and without any relieving factors. Does have a history of alcoholic pancreatitis. No fever, chills, chest pain, palpitations, shortness of breath, changes in urinary habits. In the emergency department, patient was found to have hypokalemia and hypomagnesemia. She was initiated on phenobarb protocol. Review of Systems Constitutional: Constitutional: Reports fatigue, Reports lethargy, Reports malaise and Reports weakness Gastrointestinal: Gastrointestinal: Reports abdominal pain, Reports diarrhea, Reports loose stools, Reports nausea and Reports vomiting Neurologic: Reports weakness Endocrine: Endocrine: Reports fatigue PMFSH Medical History Alcohol use disorder, severe, dependence Clostridium difficile colitis Hypertension Alcohol use disorder Pancreatic insufficiency Gastroesophageal reflux disease Essential hypertension Mood disorder Cannabis use disorder Hepatitis C Tobacco use disorder Surgical History H/O colonoscopy (~01/2023) Social History Household Members: Spouse Household Members Other:: son Housing: Apartment Do you presently have visiting nurse or other home services: No Alcohol intake: current Alcohol intake frequency: 3 or more drinks per day Alcohol type: hard liquor Comment: Pt refusing alarms, steady gait Patient Tobacco Use Status: Current everyday Tobacco user Tobacco use type: Cigarette Cigarette Packs Per Day: 0.5 Cigarettes Per Day: 10 Smoked in Last 30 Days: Yes e-Cigarette/Vaping Use: Currently Using Second Hand Smoke Exposure: No Substance Use Type: Crack/Cocaine and Marijuana Advance Directives: Yes Advance Directives on File: Yes Advance Directives Date on File: 12/10/23 Do you have a plan to hurt others: No Plan service: No Meds Allergies Allergy/AdvReac Type Severity Reaction Status Date / Time No Known Allergies Allergy Verified 05/20/25 22:59 Active Medications: Current Medications Acetaminophen (Acetaminophen 325 Mg Tablet) 650 mg PO Q6H PRN PRN Reason: Pain, Mild 1-3,fever,headache Calcium Carbonate (Calcium Carbonate 750 Mg Tab.Chew) 750 mg PO Q4H PRN PRN Reason: Heartburn Enoxaparin Sodium (Enoxaparin Sodium 40 Mg/0.4 Ml Syringe) 40 mg SUBCUT Q24H SAMANTHA Potassium Chloride (Potassium Chloride/H20) 10 meq in 100 mls @ 100 mls/hr IV Q1H SAMANTHA Stop: 05/21/25 06:29 Last Admin: 05/21/25 06:12 Dose: 100 mls/hr Thiamine HCl 200 mg/ Sodium (Chloride) 102 mls @ 204 mls/hr IV ONCE ONE Stop: 05/21/25 06:47 Magnesium Hydroxide (Milk Of Magnesia 30 Ml Oral.Susp) 30 ml PO DAILY PRN PRN Reason: Constipation Melatonin (Melatonin 3 Mg Tablet) 6 mg PO BEDTIME PRN PRN Reason: Insomnia Ondansetron HCl (Ondansetron Hcl 4 Mg/2 Ml Vial) 4 mg IVPUSH Q8H PRN PRN Reason: Nausea and Vomiting Pharmacy Consult (Consult Rx Etoh Phenob Im/Po) 1 each MISCELLANE ONCE PRN; Protocol PRN Reason: Consult order Sodium Chloride (0.9 % Sodium Chloride Flush 3 Ml Syringe) [facility] Medications ?Medication ?Instructions ?Recorded ?Confirmed ?Last Taken ?Type cholecalciferol (vitamin D3) 50 50 mcg PO DAILY 11/01/23 04/15/25 01/23/25 History mcg (2,000 unit) tablet folic acid 1 mg tablet 1 mg PO DAILY 11/01/23 04/15/25 01/23/25 History pantoprazole 40 mg tablet,delayed 40 mg PO DAILY@0630 11/01/23 04/15/25 01/23/25 History release clonidine HCl 0.1 mg tablet 0.1 mg PO TID PRN Anxiety 12/10/23 04/15/25 06/23/24 History citalopram 40 mg tablet 40 mg PO DAILY 02/26/24 04/15/25 01/23/25 History thiamine HCl (vitamin B1) 100 mg 100 mg PO DAILY 09/26/24 04/15/25 01/23/25 History tablet trazodone 100 mg tablet 100 mg PO BEDTIME PRN insomnia 10/27/24 04/15/25 Unknown History sucralfate 100 mg/mL oral 10 ml PO QID 01/26/25 04/15/25 01/23/25 History suspension Physical Exam Vital Signs and Narrative: Vital Signs: Last Vital Signs Temp 98.0 F 05/21/25 05:18 Pulse 60 05/21/25 05:18 Resp 16 05/21/25 05:18 BP 122/73 05/21/25 05:18 Pulse Ox 98 05/21/25 05:18 O2 Del Method Room Air 05/21/25 05:18 BMI result Body Mass Index 18.7 Middle-aged female lying in bed in no distress Neck supple, no JVD Regular rate and rhythm, S1-S2 heard Regular breath sounds bilaterally, no wheezing or crackles appreciated Abdomen with a epigastric tenderness, no rigidity Patient is awake, alert and oriented to self, place, time and person ; no focal motor deficit Psych: Normal mood Results Labs 05/20/25 23:26 05/21/25 05:19 Labs: Laboratory Results - last 24 hr 05/20/25 05/21/25 23:26 05:19 MCV 94.4 MCH 34.2 H MCHC 36.2 H RDW 13.2 Plt Count 195 D MPV 9.5 Immature Gran % (Auto) 0.2 Neut % (Auto) 60.9 Lymph % (Auto) 31.5 [place] % (Auto) 4.7 Eos % (Auto) 1.9 Baso % (Auto) 0.8 Lymph # (Auto) 2.9 [place] # (Auto) 0.4 Eos # (Auto) 0.2 Baso # (Auto) 0.1 Abs Immat Gran (auto) 0.02 Absolute Neuts (auto) 5.5 Absolute Nucleated RBC 0.000 Nucleated RBC % (auto) 0.0 Anion Gap 12 Estim Creat Clear Calc 101.9 Estimated GFR > 60 Random Glucose 125 H Calcium 8.8 Magnesium 1.3 L* 1.9 Total Bilirubin 0.8 AST 280 H ALT 93 H Alkaline Phosphatase 203 H Total Protein 6.7 Albumin 4.0 Ethyl Alcohol 133 Assessment and Plan (1) Alcoholism: Status: Acute (2) Acute hypokalemia: Status: Acute (3) Hypomagnesemia: Status: Acute Plan This is a 49-year-old female with pertinent history of alcohol use disorder with history of alcohol withdrawal seizures, mood disorder, tobacco use disorder, marijuana use disorder, history of hepatitis-C status post outpatient treatment, chronic pancreatic insufficiency, gastroesophageal reflux disease, hypertension, cocaine use disorder who presents to the emergency department for evaluation and management of low potassium and magnesium. #. Alcohol withdrawal in a patient with alcohol use disorder: Initiated on phenobarb protocol in the ER. Consulting Addiction Team. Continue thiamine and folic acid. Monitor CIWA #. Hypomagnesemia and hypokalemia due to alcohol use and GI losses: Repleted #. Abdominal pain: Concern for alcoholic gastritis. Giving IV Protonix. Also obtained serum lipase and CT scan of abdomen/pelvis to rule out alcoholic pancreatitis #. Diarrhea: Patient is on p.o. vancomycin for history of C diff and states she is compliant with it. Repeat C diff and GI panel pending #. Mood disorder: Continue home mood stabilizers #. Hypertension: Continue home antihypertensives Med rec pending DVT prophylaxis: Lovenox Full code Admit as inpatient and will require two night minimum hospital stay for alcohol withdrawal, monitoring of electrolytes (as above), which is not possible in a lesser acute setting. Quality Stroke Does the patient have a stroke diagnosis?: No VTE Prior VTE?: No VTE Risk Level:: Medical - moderate - high VTE Device Contraindication: Treatment Not Indicated VTE Drug Contraindication: N/A - Med Ordered
[2025-05-21] MEDS: iohexoL 350 MG/ML 100 ML INFUS..BTL 85 ML IV (06:51)
[2025-05-21] MEDS: Potassium Chloride Packet 20 MEQ PACKET 80 MEQ PO ×3 (07:07→21:04)
[2025-05-21 07:16] LABS: Lipase 93 U/L (8-78)
--- NOTE | 2025-05-21 08:13 | PHA.MEDREC ---
Addendum entered by Sobeida Torres RPh 05/21/25 09:21: MED REC REVIEWED BY [facility] Original Note: Pharmacy Consult ? Medication Reconciliation Pharmacy has completed the medication reconciliation. Spoke to patient to confirm med list. Patient was able to say yes or no on meds I asker her. Patient confirmed Vancomycin 125 mg QOD, last dose 05/19/25. Patient last took her medications yesterday.
[2025-05-21] MEDS: Thiamine HCL 200 MG in 0.9 % Sodium Chloride 100 ML 204 MG IV (08:36)
[2025-05-21] MEDS: PHENobarbitaL sodium 130 MG/ML IM ONCE 230 MG IM (08:36)
[2025-05-21] MEDS: 0.9 % Sodium Chloride Flush 3 ML SYRINGE IVFLUSH ×3 (08:38→21:10)
[2025-05-21] MEDS: Potassium Chloride Packet 20 MEQ PACKET 40 MEQ PO (08:39)
--- NOTE | 2025-05-21 08:47 | PC.NURSE ---
Addendum entered by Gemini Roach RN 05/21/25 08:48: Patient is a 49-year-old female with pertinent history of alcohol use disorder with history of alcohol withdrawal seizures, mood disorder, tobacco use disorder, marijuana use disorder, history of hepatitis-C status post outpatient treatment, chronic pancreatic insufficiency, gastroesophageal reflux disease, hypertension, cocaine use disorder who presents to the emergency department for evaluation and management of low potassium and magnesium. Patient states she got blood work done outpatient at her PCP's office and she was called 1 day prior to presentation to go to the ER for evaluation of low potassium and magnesium. Admits she continues to drink alcohol every day, her last drink being 1 day prior to presentation. Electrolyte replacement continues. Alert and oriented, cooperative with care. CIWA performed as ordered. Patient able to ambulate to the bathroom with a steady gait. patient monitor maintained and NSR noted. Respirations even and non-labored. Abdomen flat, soft. non-tender with positive bowel sounds. Positive pedal pulses with no edema. Original Note: Medical History Alcohol use disorder, severe, dependence Clostridium difficile colitis Hypertension Alcohol use disorder Pancreatic insufficiency Gastroesophageal reflux disease Essential hypertension Mood disorder Cannabis use disorder Hepatitis C Tobacco use disorder
--- NOTE | 2025-05-21 09:30 | MHC.CM.PN ---
Patient lives with her Son/HCP/Tc, who will transport at time of dc. Patient required no services nor DME [employer] and home self care vs Recovery Team intervention (ETOH & Cocaine)is the tentative plan. CM has initiated and will follow for dc planning. PCP is Dr. Ayala Patton.
[2025-05-21] MEDS: PHENobarbitaL sodium 130 MG/ML VIAL IM Q3Hx2 173 MG IM ×2 (10:30→12:38)
--- NOTE | 2025-05-21 14:38 | PM.EVENT ---
Event Note Date of Service: 05/21/25 Event Note: Chart reviewed patient examined. Agree with H&P and plan as outlined by night float physician. Time Spent With Patient Time: Total time managing care of this patient today ____ minutes.
[2025-05-21 14:56] VITALS: BMI 19.2
--- NOTE | 2025-05-21 15:16 | P.CDIM_ITS ---
PROVIDER RESPONSE TEXT: To clarify, the appropriate diagnosis supported by the clinical indicators: Underweight QUERY TEXT: PHYSICIAN'S DOCUMENTATION REQUEST Date of Query: 05/21/2025 11:51 AM EDT Patient Name: Jackelyn Bledsoe Admit Date: 05/21/2025 Dear Dilip Sherwood DO, A review of the medical record indicates additional documentation may be needed. Please review below and update the documentation accordingly. Clinical Indicators: Height: 5ft 3in Weight: 47.999kg BMI: 18.7 Fatigue, lethargy, malaise, diarrhea, n/v, alcohol w/d, electrolyte imbalance. If possible, please provide an associated diagnosis related to the abnormal BMI, such as: Underweight Weight loss Anorexia Malnourished mild, moderate, severe Other (explain) Clinically unable to determine (explain) Thank you, Leonor Frias, CCS, CDIS Use of terms such as suspected, likely, concern for, or probable (associated with a specific diagnosis that is being evaluated, monitored, or treated as if it exists) are acceptable and can be coded in the inpatient setting, when documented at the time of discharge. Please use your independent medical judgment in providing your response. THIS QUERY IS PART OF THE PERMANENT MEDICAL RECORD
[2025-05-21 16:00] VITALS: BP 135/74; PULSE 70; RESP 16; TEMP 36.9; O2SAT 97
[2025-05-21 16:28] LABS: CDiff Gene PCR NEGATIVE (Negative)
[2025-05-21] MEDS: Sucralfate Oral Suspension 1 GM/10 ML ORAL.SUSP PO ×2 (17:00→21:04)
[2025-05-21 17:19] LABS: Anion Gap 15 (12-20); Carbon Dioxide 26 mmol/L (22-29); Chloride 105 mmol/L (96-108); Sodium 143 mmol/L (135-145)
[2025-05-21 19:27] VITALS: TEMP 36.2
[2025-05-21 22:41] VITALS: BP 130/60
[2025-05-21 23:09] VITALS: BP 129/78; PULSE 68; RESP 16; TEMP 37.1; O2SAT 98
[2025-05-22 06:00] LABS: MANUAL DIFF FLAG NO
[2025-05-22 06:14] LABS: Hematocrit 39.6 % (37.0-47.0); Hemoglobin 14.1 g/dl (12.0-16.0); Imm Gran Abs Auto 0.02 X10*3/uL (0.00-0.03); Imm Gran Pct Auto 0.3 % (0.0-0.4); Lymphocytes Absolute Auto 3.3 X10*3/uL (1.2-4.9); Mean Corpuscular HGB Conc 35.6 g/dl (31.0-35.0); Mean Corpuscular Hemoglobin 34.6 pg (27.0-33.0); Mean Corpuscular Volume 97.1 fL (80.0-98.0); NRBC Abs Auto 0.000 X10*3/uL (0.0-0.012); NRBC Pct Auto 0.0 /100WBC (0.0-0.2); Platelet Count 151 X10*3/uL (160-400); Red Blood Count 4.08 X10*6/uL (4.20-5.50); White Blood Count 8.0 X10*3/uL (4.8-10.8)
[2025-05-22 06:26] LABS: Anion Gap 12 (12-20); Blood Urea Nitrogen 3 mg/dL (9-16); Calcium 8.5 mg/dL (8.4-10.2); Carbon Dioxide 25 mmol/L (22-29); Chloride 109 mmol/L (96-108); Creatinine Clr Calc Pharmacy 121.6; Estimated Glomerular Filt Rate > 60; Magnesium 1.4 mg/dL (1.6-2.6); Potassium 3.3 mmol/L (3.3-5.1); Sodium 143 mmol/L (135-145)
[2025-05-22] MEDS: Magnesium Sulfate/H2O 2 GM/50 ML PIGGYBACK IV ×2 (07:00→12:28)
[2025-05-22 07:39] VITALS: BP 127/70; PULSE 62; RESP 16; TEMP 36.6; O2SAT 97
[2025-05-22] MEDS: Potassium Chloride Packet 20 MEQ PACKET 80 MEQ PO ×2 (09:00→20:59)
[2025-05-22] MEDS: Sucralfate Oral Suspension 1 GM/10 ML ORAL.SUSP PO ×4 (09:00→20:59)
[2025-05-22 09:46] LABS: E. coli EAEC Not Detected (Not Detect.); E. coli EPEC Not Detected (Not Detect.); E. coli ETEC Not Detected (Not Detect.); E. coli STEC Not Detected (Not Detect.); Shigella sp./EIEC Not Detected (Not Detect.)
[2025-05-22] MEDS: oxyCODONE HCl Immed Release 5 MG TABLET 10 MG PO ×2 (13:42→18:03)
--- NOTE | 2025-05-22 13:48 | P.PNIM_ITS ---
Subjective Subjective Date of Service: 05/22/25 Interval History: No acute issues overnight. Had previously utilize Tylenol for pain but now states it is ineffective Review of Systems Denies chest pain Denies shortness of breath Admits to crampy abdominal pain and extremity pain Denies fever chills Physical Exam 2 Vital Signs: Vital Signs: Last Vital Signs Temp 97.9 F 05/22/25 07:39 Pulse 62 05/22/25 07:39 Resp 16 05/22/25 07:39 BP 127/70 05/22/25 07:39 Pulse Ox 97 05/22/25 07:39 O2 Del Method Room Air 05/22/25 07:39 BMI result Body Mass Index 19.2 Const: Other: Awake alert oriented x3 in no acute distress Resp: Other: Clear to auscultation bilaterally no rales rhonchi or wheezes Cardio: Other: No S4; positive S1-S2; no S3 murmurs rubs or gallops GI: Other: Soft nontender nondistended normoactive bowel sounds Extrem: Other: No edema bilaterally Objective Data Active Medications Acetaminophen (Acetaminophen 325 Mg Tablet) 650 mg PO Q6H PRN PRN Reason: Pain, Mild 1-3,fever,headache Amlodipine Besylate (Amlodipine Besylate 5 Mg Tablet) 5 mg PO DAILY [facility]; Protocol Last Admin: 05/22/25 09:01 Dose: 5 mg Documented By: GABRIELLE Calcium Carbonate (Calcium Carbonate 750 Mg Tab.Chew) 750 mg PO Q4H PRN PRN Reason: Heartburn Clonidine HCl (Clonidine Hcl 0.1 Mg Tablet) 0.1 mg PO TID PRN; Protocol PRN Reason: Anxiety Last Admin: 05/21/25 22:41 Dose: 0.1 mg Documented By: JORGE Enoxaparin Sodium (Enoxaparin Sodium 40 Mg/0.4 Ml Syringe) 40 mg SUBCUT Q24H [facility] Last Admin: 05/22/25 05:39 Dose: 40 mg Documented By: JORGE Escitalopram Oxalate (Escitalopram Oxalate 20 Mg Tablet) 20 mg PO DAILY [facility] Last Admin: 05/22/25 09:01 Dose: 20 mg Documented By: GABRIELLE Folic Acid (Folic Acid 1 Mg Tablet) 1 mg PO DAILY [facility] Last Admin: 05/22/25 09:01 Dose: 1 mg Documented By: GABRIELLE Magnesium Sulfate (Magnesium Sulfate/H2o) 2 gm in 50 mls @ 25 mls/hr IV ONCE ONE Stop: 05/22/25 14:14 Last Admin: 05/22/25 12:28 Dose: 25 mls/hr Documented By: GABRIELLE Magnesium Hydroxide (Milk Of Magnesia 30 Ml Oral.Susp) 30 ml PO DAILY PRN PRN Reason: Constipation Magnesium Oxide (Magnesium Oxide 400 Mg Tablet) 400 mg PO BID [facility] Last Admin: 05/22/25 09:01 Dose: 400 mg Documented By: GABRIELLE Melatonin (Melatonin 3 Mg Tablet) 6 mg PO BEDTIME PRN PRN Reason: Insomnia Omeprazole (Omeprazole 20 Mg Capsule.Dr) 20 mg PO DAILY@0630 [facility] Last Admin: 05/22/25 05:39 Dose: 20 mg Documented By: JORGE Ondansetron HCl (Ondansetron Hcl 4 Mg/2 Ml Vial) 4 mg IVPUSH Q8H PRN PRN Reason: Nausea and Vomiting Oxycodone HCl (Oxycodone Hcl Immed Release 5 Mg Tablet) 10 mg PO Q4H PRN PRN Reason: Pain, Moderate(Pain Scale 4-6) Last Admin: 05/22/25 13:42 Dose: 10 mg Documented By: GABRIELLE Pharmacy Consult (Consult Rx Etoh Phenob Im/Po) 1 each MISCELLANE ONCE PRN; Protocol PRN Reason: Consult order Phenobarbital (Phenobarbital 15 Mg Tablet) 45 mg PO BID [facility]; Protocol Stop: 05/23/25 09:01 Last Admin: 05/22/25 09:01 Dose: 45 mg Documented By: GABRIELLE Phenobarbital (Phenobarbital 15 Mg Tablet) 15 mg PO BID [facility]; Protocol Stop: 05/25/25 09:01 Phenobarbital (Phenobarbital 15 Mg Tablet) 15 mg PO DAILY [facility]; Protocol Stop: 05/26/25 09:01 Potassium Chloride (Potassium Chloride Packet 20 Meq Packet) 80 meq PO BID [facility] Last Admin: 05/22/25 09:00 Dose: 80 meq Documented By: GABRIELLE Sodium Chloride (0.9 % Sodium Chloride Flush 3 Ml Syringe) 3 ml IVFLUSH QSHIFT [facility] Last Admin: 05/22/25 07:34 Dose: Not Given Documented By: GABRIELLE Non-Admin Reason: IV Running Sucralfate (Sucralfate Oral Suspension 1 Gm/10 Ml Oral.Susp) 1 gm PO QID [facility] Last Admin: 05/22/25 12:25 Dose: 1 gm Documented By: GABRIELLE Thiamine HCl (Thiamine Hcl 100 Mg Tablet) 100 mg PO DAILY [facility] Last Admin: 05/22/25 09:01 Dose: 100 mg Documented By: GABRIELLE Trazodone HCl (Trazodone Hcl 100 Mg Tablet) 100 mg PO BEDTIME PRN PRN Reason: Insomnia Last Admin: 05/21/25 22:41 Dose: 100 mg Documented By: JORGE Vancomycin HCl (Vancomycin Hcl 125 Mg Capsule) 125 mg PO Q48H [facility] Last Admin: 05/21/25 17:00 Dose: 125 mg Documented By: GABRIELLE Vitamin D (Cholecalciferol (Vitamin D3) 25 Mcg Tablet) 50 mcg PO DAILY [facility] Last Admin: 05/22/25 09:01 Dose: 50 mcg Documented By: GABRIELLE Labs 05/22/25 05:53 05/22/25 05:53 Labs: Laboratory Results - last 24 hr 05/21/25 05/21/25 05/22/25 05:19 15:13 05:53 MCV 97.1 MCH 34.6 H MCHC 35.6 H RDW 13.0 Plt Count 151 L MPV 10.1 Immature Gran % (Auto) 0.3 Neut % (Auto) 48.1 Lymph % (Auto) 41.0 H [place] % (Auto) 5.1 Eos % (Auto) 4.5 H Baso % (Auto) 1.0 Lymph # (Auto) 3.3 [place] # (Auto) 0.4 Eos # (Auto) 0.4 Baso # (Auto) 0.1 Abs Immat Gran (auto) 0.02 Absolute Neuts (auto) 3.8 Absolute Nucleated RBC 0.000 Nucleated RBC % (auto) 0.0 Anion Gap 15 12 Estim Creat Clear Calc 121.6 Estimated GFR > 60 Random Glucose 88 Calcium 8.5 Magnesium 1.4 L* Stl C. cayetanensis PCR Not Detected Stool Rotavirus A PCR Not Detected Stl Adenov F 40/41 PCR Not Detected Stool Astrovirus (PCR) Not Detected Stool Campylobacter PCR Not Detected Stool Cryptosporidium PCR Not Detected Stl Sh Tox Pr E STEC PCR Not Detected Stool E coli O157 PCR Not applicable Stl Enterotoxigenic E PCR Not Detected Stool EPEC (PCR) Not Detected Stool EAEC (PCR) Not Detected Stl E. histolytica PCR Not Detected Stool Giardia Lamblia PCR Not Detected Stl P. shigelloides PCR Not Detected Stool Salmonella PCR Not Detected Stool Sapovirus (PCR) Not Detected Stl Shigella/EIEC PCR Not Detected St Y.enterocolitica PCR Not Detected Stool Vibrio (PCR) Not Detected Stl Vibrio cholerae PCR Not Detected Stl Norovirus GI/GII PCR Not Detected C. difficile Tox B Gene NEGATIVE Assessment and Plan (1) Alcohol dependence: Status: Acute (2) Acute hypokalemia: Status: Acute (3) Hypomagnesemia: Status: Acute Plan This is a 49-year-old female with pertinent history of alcohol use disorder with history of alcohol withdrawal seizures, mood disorder, tobacco use disorder, marijuana use disorder, history of hepatitis-C status post outpatient treatment, chronic pancreatic insufficiency, gastroesophageal reflux disease, hypertension, cocaine use disorder who presents to the emergency department for evaluation and management of low potassium and magnesium. 1.Alcohol withdrawal -no seizure activity -observe on CIWA scale; phenobarb protocol -addiction Medicine consult 2.Hypomagnesemia/hypokalemia -repleted -follow renals/divalent 3. Alcoholic gastritis -IV Protonix -other workup negative 4.Diarrhea/chronic C diff -GI panel unremarkable including C diff -continue vancomycin until seen by outpatient GI Lovenox Full code Requires ongoing hospitalization for observation on CIWA scale and phenobarb protocol Quality Stroke Does the patient have a stroke diagnosis?: No VTE Prior VTE?: No VTE Risk Level:: Medical - moderate - high VTE Device Contraindication: Treatment Not Indicated VTE Drug Contraindication: N/A - Med Ordered
[2025-05-22 16:00] VITALS: BP 122/70; PULSE 54; RESP 16; TEMP 36.8; O2SAT 95
[2025-05-22] MEDS: 0.9 % Sodium Chloride Flush 3 ML SYRINGE IVFLUSH ×2 (16:29→19:27)
[2025-05-22 19:25] VITALS: BP 121/57; PULSE 69; RESP 16; TEMP 36.2; O2SAT 98
[2025-05-22 23:14] VITALS: BP 119/58; PULSE 67; RESP 16; TEMP 36.2; O2SAT 97
[2025-05-23 06:59] LABS: MANUAL DIFF FLAG NO
[2025-05-23 07:11] LABS: Hematocrit 34.0 % (37.0-47.0); Hemoglobin 11.4 g/dl (12.0-16.0); Imm Gran Abs Auto 0.01 X10*3/uL (0.00-0.03); Imm Gran Pct Auto 0.1 % (0.0-0.4); Lymphocytes Absolute Auto 2.9 X10*3/uL (1.2-4.9); Mean Corpuscular HGB Conc 33.5 g/dl (31.0-35.0); Mean Corpuscular Hemoglobin 34.4 pg (27.0-33.0); Mean Corpuscular Volume 102.7 fL (80.0-98.0); NRBC Abs Auto 0.000 X10*3/uL (0.0-0.012); NRBC Pct Auto 0.0 /100WBC (0.0-0.2); Platelet Count 131 X10*3/uL (160-400); Red Blood Count 3.31 X10*6/uL (4.20-5.50); White Blood Count 7.0 X10*3/uL (4.8-10.8)
[2025-05-23 07:27] LABS: Alanine Aminotransferase 47 U/L (0-31); Albumin Level 3.4 g/dL (3.5-5.0); Alkaline Phosphatase 166 U/L (39-117); Aspartate Amino Transferase 78 U/L (5-31); Blood Urea Nitrogen < 3 mg/dL (9-16); Calcium 8.5 mg/dL (8.4-10.2); Creatinine Clr Calc Pharmacy 113.6; Estimated Glomerular Filt Rate > 60; Total Protein 5.6 g/dL (6.5-8.0)
[2025-05-23 07:50] VITALS: BP 118/58; PULSE 62; RESP 18; TEMP 36.8; O2SAT 97
[2025-05-23 08:01] LABS: Anion Gap 14 (12-20); Carbon Dioxide 24 mmol/L (22-29); Chloride 108 mmol/L (96-108); Potassium 5.0 mmol/L (3.3-5.1); Sodium 141 mmol/L (135-145)
[2025-05-23] MEDS: Potassium Chloride Packet 20 MEQ PACKET 80 MEQ PO (09:14)
[2025-05-23] MEDS: Sucralfate Oral Suspension 1 GM/10 ML ORAL.SUSP PO ×4 (09:16→21:11)
[2025-05-23] MEDS: 0.9 % Sodium Chloride Flush 3 ML SYRINGE IVFLUSH ×2 (09:16→15:41)
[2025-05-23 09:17] LABS: Magnesium 1.6 mg/dL (1.6-2.6)
--- NOTE | 2025-05-23 10:58 | P.PNIM_ITS ---
Subjective Subjective Date of Service: 05/23/25 Interval History: c/o liquid stool, gas pain of abd no tremor Review of Systems Review of Systems: Yes all other systems are reviewed and are negative Physical Exam 2 Vital Signs: Vital Signs: Last Vital Signs Temp 98.3 F 05/23/25 07:50 Pulse 62 05/23/25 07:50 Resp 18 05/23/25 07:50 BP 118/58 L 05/23/25 07:50 Pulse Ox 97 05/23/25 07:50 O2 Del Method Room Air 05/23/25 07:50 BMI result Body Mass Index 19.2 Gen: in no acute distress HEENT: sclera anicteric, moist mucus membranes Neck: supple Lungs: clear to auscultation bilaterally Heart: regular rate and rhythm, no murmurs Abd: soft, mild tenderness generalized, non-distended Ext: no edema Skin: warm/well-perfused Neuro: alert and oriented x3, no focal findings Psych: appropriate affect Objective Data Active Medications Acetaminophen (Acetaminophen 325 Mg Tablet) 650 mg PO Q6H PRN PRN Reason: Pain, Mild 1-3,fever,headache Amlodipine Besylate (Amlodipine Besylate 5 Mg Tablet) 5 mg PO DAILY [facility]; Protocol Last Admin: 05/23/25 09:16 Dose: 5 mg Documented By: DEANA Calcium Carbonate (Calcium Carbonate 750 Mg Tab.Chew) 750 mg PO Q4H PRN PRN Reason: Heartburn Clonidine HCl (Clonidine Hcl 0.1 Mg Tablet) 0.1 mg PO TID PRN; Protocol PRN Reason: Anxiety Last Admin: 05/23/25 10:36 Dose: 0.1 mg Documented By: DEANA Enoxaparin Sodium (Enoxaparin Sodium 40 Mg/0.4 Ml Syringe) 40 mg SUBCUT Q24H [facility] Last Admin: 05/23/25 05:52 Dose: 40 mg Documented By: SANTINO Escitalopram Oxalate (Escitalopram Oxalate 20 Mg Tablet) 20 mg PO DAILY [facility] Last Admin: 05/23/25 09:16 Dose: 20 mg Documented By: DEANA Folic Acid (Folic Acid 1 Mg Tablet) 1 mg PO DAILY [facility] Last Admin: 05/23/25 09:16 Dose: 1 mg Documented By: DEANA Loperamide HCl (Loperamide Hcl 2 Mg Capsule) 2 mg PO Q4H PRN PRN Reason: Diarrhea Magnesium Hydroxide (Milk Of Magnesia 30 Ml Oral.Susp) 30 ml PO DAILY PRN PRN Reason: Constipation Magnesium Oxide (Magnesium Oxide 400 Mg Tablet) 400 mg PO BID [facility] Last Admin: 05/23/25 09:16 Dose: 400 mg Documented By: DEANA Melatonin (Melatonin 3 Mg Tablet) 6 mg PO BEDTIME PRN PRN Reason: Insomnia Morphine Sulfate (Morphine Sulfate 4 Mg/Ml Cartridge) 4 mg IVPUSH Q4H PRN; Protocol PRN Reason: Pain, Severe (Pain Scale 7-10) Last Admin: 05/23/25 09:16 Dose: 4 mg Documented By: DEANA Omeprazole (Omeprazole 20 Mg Capsule.Dr) 20 mg PO DAILY@629 [facility] Last Admin: 05/23/25 05:51 Dose: 20 mg Documented By: SANTINO Ondansetron HCl (Ondansetron Hcl 4 Mg/2 Ml Vial) 4 mg IVPUSH Q8H PRN PRN Reason: Nausea and Vomiting Oxycodone HCl (Oxycodone Hcl Immed Release 5 Mg Tablet) 10 mg PO Q4H PRN PRN Reason: Pain, Moderate(Pain Scale 4-6) Last Admin: 05/22/25 18:03 Dose: 10 mg Documented By: GABRIELLE Pharmacy Consult (Consult Rx Etoh Phenob Im/Po) 1 each MISCELLANE ONCE PRN; Protocol PRN Reason: Consult order Phenobarbital (Phenobarbital 15 Mg Tablet) 15 mg PO BID [facility]; Protocol Stop: 05/25/25 09:01 Phenobarbital (Phenobarbital 15 Mg Tablet) 15 mg PO DAILY [facility]; Protocol Stop: 05/26/25 09:01 Last Admin: 05/23/25 09:15 Dose: 15 mg Documented By: DEANA Potassium Chloride (Potassium Chloride Packet 20 Meq Packet) 80 meq PO BID [facility] Last Admin: 05/23/25 09:14 Dose: 80 meq Documented By: DEANA Simethicone (Simethicone 80 Mg Tab.Chew) 80 mg PO QIDWMHS PRN PRN Reason: gas Sodium Chloride (0.9 % Sodium Chloride Flush 3 Ml Syringe) 3 ml IVFLUSH QSHIFT [facility] Last Admin: 05/23/25 09:16 Dose: 3 ml Documented By: DEANA Sucralfate (Sucralfate Oral Suspension 1 Gm/10 Ml Oral.Susp) 1 gm PO QID [facility] Last Admin: 05/23/25 09:16 Dose: 1 gm Documented By: DEANA Thiamine HCl (Thiamine Hcl 100 Mg Tablet) 100 mg PO DAILY [facility] Last Admin: 05/23/25 09:16 Dose: 100 mg Documented By: DEANA Trazodone HCl (Trazodone Hcl 100 Mg Tablet) 100 mg PO BEDTIME PRN PRN Reason: Insomnia Last Admin: 05/23/25 00:01 Dose: 100 mg Documented By: HEBERT Vancomycin HCl (Vancomycin Hcl 125 Mg Capsule) 125 mg PO Q48H [facility] Last Admin: 05/21/25 17:00 Dose: 125 mg Documented By: GABRIELLE Vitamin D (Cholecalciferol (Vitamin D3) 25 Mcg Tablet) 50 mcg PO DAILY [facility] Last Admin: 05/23/25 09:16 Dose: 50 mcg Documented By: DEANA Labs 05/23/25 05:47 05/23/25 05:47 Labs: Laboratory Results - last 24 hr 05/23/25 05:47 MCV 102.7 H D MCH 34.4 H MCHC 33.5 RDW 13.3 Plt Count 131 L MPV 10.6 Immature Gran % (Auto) 0.1 Neut % (Auto) 47.9 Lymph % (Auto) 41.5 H [place] % (Auto) 6.9 Eos % (Auto) 2.7 Baso % (Auto) 0.9 Lymph # (Auto) 2.9 [place] # (Auto) 0.5 Eos # (Auto) 0.2 Baso # (Auto) 0.1 Abs Immat Gran (auto) 0.01 Absolute Neuts (auto) 3.4 Absolute Nucleated RBC 0.000 Nucleated RBC % (auto) 0.0 Anion Gap 14 Estim Creat Clear Calc 113.6 Estimated GFR > 60 Fasting Glucose 87 Calcium 8.5 Magnesium 1.6 Total Bilirubin 0.5 AST 78 H ALT 47 H Alkaline Phosphatase 166 H C-Reactive Protein 0.23 Total Protein 5.6 L Albumin 3.4 L Assessment and Plan (1) Alcohol dependence: Status: Acute (2) Acute hypokalemia: Status: Acute (3) Hypomagnesemia: Status: Acute Plan d3 for 49yo F with AUD with hx withdrawal sz, mood disorder, treated HCV, chronic pancreatic insufficiency, GERD, HTN, cocaine abuse sent in by PCP with hypoK/hypoMg, admitted with EtOH withdrawal EtOH withdrawal - phenobarbital taper, thiamine, folic acid, Addiction Medicine consulted and declined MAT hypoK hypoMg - repleted macrocytic anemia - likely due to EtOH but will check B12/FA EtOH gastritis - PPI, sucralfate diarrhea hx C diff, currently negative - continue suppressive vancomycin, prn loperamide mood disorder - escitalopram HTN - amlodipine VTE ppx - enoxaparin dispo - eventual home In my clinical judgment, the patient requires continued inpatient hospitalization for the following reasons: inpt phenobarbital taper Total time managing care of this patient today: 35 minutes. Quality Stroke Does the patient have a stroke diagnosis?: No VTE Prior VTE?: No VTE Risk Level:: Medical - moderate - high VTE Device Contraindication: Treatment Not Indicated VTE Drug Contraindication: N/A - Med Ordered
[2025-05-23 11:38] VITALS: BP 157/69; PULSE 59; RESP 20; TEMP 36.7; O2SAT 98
--- NOTE | 2025-05-23 11:45 | PC.NURSE ---
This RN to room to respond to bathroom alarm. Pt states I can't move my leg is locked up . Pt assisted back to sit on toilet. This RN assessed for stroke like symptoms. No stroke like symptoms at this time. Pt crying. RN provided with reassurance. Pt assisted back to back via rolling computer chair. Call yarbrough provided. Bed alarm on. VS stable at this time. aware.
--- NOTE | 2025-05-23 14:51 | MHC.RECOVRN ---
Met with pt in follow-up. Pt reporting fatigue and that she just wants to rest. Pt declining all recovery support at the moment and declined all interventions/treatment of her AUD. Pt encouraged to reach out to the ACS team for any recovery needs that arise.
[2025-05-23] MEDS: oxyCODONE HCl Immed Release 5 MG TABLET 10 MG PO ×2 (15:40→19:49)
[2025-05-23 16:02] VITALS: BP 131/63; PULSE 66; RESP 18; TEMP 36.3; O2SAT 98
--- NOTE | 2025-05-23 19:39 | PC.NURSE ---
Pt refusing bed and chair alarms. High fall d/t seizure precautions. AxOx4, ambulates with steady gait. Encouraged pt to use call yarbrough when wanting to ambulate or use bathroom. All other safety measures in place.
[2025-05-23 21:15] VITALS: BP 129/61
[2025-05-23 23:19] VITALS: BP 121/66; PULSE 58; RESP 18; TEMP 36.3; O2SAT 96
[2025-05-24] MEDS: oxyCODONE HCl Immed Release 5 MG TABLET 10 MG PO ×5 (00:06→21:07)
[2025-05-24 06:26] LABS: Hematocrit 37.5 % (37.0-47.0); Hemoglobin 12.4 g/dl (12.0-16.0); Mean Corpuscular HGB Conc 33.1 g/dl (31.0-35.0); Mean Corpuscular Hemoglobin 34.4 pg (27.0-33.0); Mean Corpuscular Volume 104.2 fL (80.0-98.0); NRBC Abs Auto 0.000 X10*3/uL (0.0-0.012); NRBC Pct Auto 0.0 /100WBC (0.0-0.2); Platelet Count 137 X10*3/uL (160-400); Red Blood Count 3.60 X10*6/uL (4.20-5.50); White Blood Count 8.1 X10*3/uL (4.8-10.8)
[2025-05-24 07:18] LABS: Alanine Aminotransferase 60 U/L (0-31); Albumin Level 3.9 g/dL (3.5-5.0); Alkaline Phosphatase 212 U/L (39-117); Anion Gap 15 (12-20); Aspartate Amino Transferase 143 U/L (5-31); Blood Urea Nitrogen 4 mg/dL (9-16); Chloride 102 mmol/L (96-108); Creatinine Clr Calc Pharmacy 104.6; Estimated Glomerular Filt Rate > 60; Folate 11.3 ng/mL (> or = 4.0); Magnesium 1.3 mg/dL (1.6-2.6); Potassium 5.2 mmol/L (3.3-5.1); Sodium 142 mmol/L (135-145); Total Protein 6.8 g/dL (6.5-8.0); Vitamin B12 436 pg/mL (200-900)
[2025-05-24] MEDS: Magnesium Sulfate/H2O 2 GM/50 ML PIGGYBACK IV (07:28)
[2025-05-24] MEDS: 0.9 % Sodium Chloride Flush 3 ML SYRINGE IVFLUSH ×3 (07:29→21:17)
[2025-05-24] MEDS: Sucralfate Oral Suspension 1 GM/10 ML ORAL.SUSP PO ×4 (07:29→21:07)
[2025-05-24 07:36] LABS: Calcium 9.9 mg/dL (8.4-10.2); Carbon Dioxide 29 mmol/L (22-29)
--- NOTE | 2025-05-24 07:48 | PC.NURSE ---
Patient currently scoring a 9 on CIWA scale secondary to reports of sweating, anxiety, and hallucination of someone in the room taking her blood when no one was around. MD notified. Patient given dose 2 of 4 of phenobarb
--- NOTE | 2025-05-24 07:50 | PC.NURSE ---
Pt complaining of pains in lower legs and feet that started a few weeks ago. No redness, swelling or increased temp observed on assessment, although patient reports increased pain in left leg with plantar flexion. MD notified. Pt given prn oxycodone for discomfort, no new orders at this time.
[2025-05-24 07:53] VITALS: BP 116/55; PULSE 61; RESP 13; TEMP 36.3; O2SAT 97
--- NOTE | 2025-05-24 09:17 | HO.PM.IMPN ---
Subjective Subjective Date of Service: 05/24/25 Interval History: feels a little shaky this AM + c/o abd + leg cramps, Mg low at 1.3 Review of Systems Review of Systems: Yes all other systems are reviewed and are negative Physical Exam Vital Signs: Vital Signs: Last Vital Signs Temp 97.4 F 05/24/25 07:53 Pulse 61 05/24/25 07:53 Resp 13 05/24/25 07:53 BP 116/55 L 05/24/25 07:53 Pulse Ox 97 05/24/25 07:53 O2 Del Method Room Air 05/24/25 07:53 BMI result Body Mass Index 19.2 Gen: in no acute distress, somewhat tremulous HEENT: sclera anicteric, moist mucus membranes Neck: supple Lungs: clear to auscultation bilaterally Heart: regular rate and rhythm, no murmurs Abd: soft, mild tenderness generalized, non-distended Ext: no edema Skin: warm/well-perfused Neuro: alert and oriented x3, no focal findings Psych: appropriate affect Objective Data Active Medications Acetaminophen (Acetaminophen 325 Mg Tablet) 650 mg PO Q6H PRN PRN Reason: Pain, Mild 1-3,fever,headache Amlodipine Besylate (Amlodipine Besylate 5 Mg Tablet) 5 mg PO DAILY [facility]; Protocol Last Admin: 05/24/25 07:29 Dose: 5 mg Documented By: MARY CARMEN Calcium Carbonate (Calcium Carbonate 750 Mg Tab.Chew) 750 mg PO Q4H PRN PRN Reason: Heartburn Clonidine HCl (Clonidine Hcl 0.1 Mg Tablet) 0.1 mg PO TID PRN; Protocol PRN Reason: Anxiety Last Admin: 05/23/25 21:15 Dose: 0.1 mg Documented By: HEBERT Enoxaparin Sodium (Enoxaparin Sodium 40 Mg/0.4 Ml Syringe) 40 mg SUBCUT Q24H [facility] Last Admin: 05/24/25 05:39 Dose: 40 mg Documented By: SANTINO Escitalopram Oxalate (Escitalopram Oxalate 20 Mg Tablet) 20 mg PO DAILY [facility] Last Admin: 05/24/25 07:29 Dose: 20 mg Documented By: MARY CARMEN Folic Acid (Folic Acid 1 Mg Tablet) 1 mg PO DAILY [facility] Last Admin: 05/24/25 07:30 Dose: 1 mg Documented By: MARY CARMEN Magnesium Sulfate (Magnesium Sulfate/H2o) 2 gm in 50 mls @ 25 mls/hr IV ONCE ONE Stop: 05/24/25 09:19 Last Admin: 05/24/25 07:28 Dose: 25 mls/hr Documented By: MARY CARMEN Loperamide HCl (Loperamide Hcl 2 Mg Capsule) 2 mg PO Q4H PRN PRN Reason: Diarrhea Magnesium Hydroxide (Milk Of Magnesia 30 Ml Oral.Susp) 30 ml PO DAILY PRN PRN Reason: Constipation Magnesium Oxide (Magnesium Oxide 400 Mg Tablet) 800 mg PO BID [facility] Last Admin: 05/24/25 07:29 Dose: 800 mg Documented By: MARY CARMEN Melatonin (Melatonin 3 Mg Tablet) 6 mg PO BEDTIME PRN PRN Reason: Insomnia Morphine Sulfate (Morphine Sulfate 4 Mg/Ml Cartridge) 4 mg IVPUSH Q4H PRN; Protocol PRN Reason: Pain, Severe (Pain Scale 7-10) Last Admin: 05/24/25 03:37 Dose: 4 mg Documented By: SANTINO Omeprazole (Omeprazole 20 Mg Capsule.Dr) 20 mg PO DAILY@0630 [facility] Last Admin: 05/24/25 05:39 Dose: 20 mg Documented By: SANTINO Ondansetron HCl (Ondansetron Hcl 4 Mg/2 Ml Vial) 4 mg IVPUSH Q8H PRN PRN Reason: Nausea and Vomiting Oxycodone HCl (Oxycodone Hcl Immed Release 5 Mg Tablet) 10 mg PO Q4H PRN PRN Reason: Pain, Moderate(Pain Scale 4-6) Last Admin: 05/24/25 07:30 Dose: 10 mg Documented By: MARY CARMEN Pharmacy Consult (Consult Rx Etoh Phenob Im/Po) 1 each MISCELLANE ONCE PRN; Protocol PRN Reason: Consult order Phenobarbital (Phenobarbital 15 Mg Tablet) 15 mg PO BID [facility]; Protocol Stop: 05/25/25 09:01 Last Admin: 05/24/25 07:30 Dose: 15 mg Documented By: MARY CARMEN Phenobarbital (Phenobarbital 15 Mg Tablet) 15 mg PO DAILY [facility]; Protocol Stop: 05/26/25 09:01 Last Admin: 05/23/25 09:15 Dose: 15 mg Documented By: DEANA Phenobarbital Sodium (Phenobarbital Sodium 65 Mg/Ml Vial) 65 mg IM ONCE ONE Stop: 05/24/25 09:15 Simethicone (Simethicone 80 Mg Tab.Chew) 80 mg PO QIDWMHS PRN PRN Reason: gas Last Admin: 05/23/25 21:15 Dose: 80 mg Documented By: HEBERT Sodium Chloride (0.9 % Sodium Chloride Flush 3 Ml Syringe) 3 ml IVFLUSH QSHIFT [facility] Last Admin: 05/24/25 07:29 Dose: 3 ml Documented By: MARY CARMEN Sucralfate (Sucralfate Oral Suspension 1 Gm/10 Ml Oral.Susp) 1 gm PO QID [facility] Last Admin: 05/24/25 07:29 Dose: 1 gm Documented By: MARY CARMEN Thiamine HCl (Thiamine Hcl 100 Mg Tablet) 100 mg PO DAILY [facility] Last Admin: 05/24/25 07:29 Dose: 100 mg Documented By: MARY CARMEN Trazodone HCl (Trazodone Hcl 100 Mg Tablet) 100 mg PO BEDTIME PRN PRN Reason: Insomnia Last Admin: 05/24/25 00:07 Dose: 100 mg Documented By: SANTINO Vancomycin HCl (Vancomycin Hcl 125 Mg Capsule) 125 mg PO Q48H [facility] Last Admin: 05/23/25 16:42 Dose: 125 mg Documented By: MARIO Vitamin D (Cholecalciferol (Vitamin D3) 25 Mcg Tablet) 50 mcg PO DAILY [facility] Last Admin: 05/24/25 07:29 Dose: 50 mcg Documented By: MARY CARMEN Labs 05/24/25 05:51 05/24/25 05:51 Labs: Laboratory Results - last 24 hr 05/23/25 05/24/25 05:47 05:51 MCV 104.2 H MCH 34.4 H MCHC 33.1 RDW 13.2 Plt Count 137 L MPV 10.2 Absolute Nucleated RBC 0.000 Nucleated RBC % (auto) 0.0 Anion Gap 15 Estim Creat Clear Calc 104.6 Estimated GFR > 60 Random Glucose 106 Calcium 9.9 D Magnesium 1.6 1.3 L* Total Bilirubin 0.5 AST 143 H ALT 60 H Alkaline Phosphatase 212 H C-Reactive Protein 0.23 Total Protein 6.8 Albumin 3.9 Vitamin B12 436 Folate 11.3 Assessment and Plan (1) Alcohol dependence: Status: Acute (2) Acute hypokalemia: Status: Acute (3) Hypomagnesemia: Status: Acute Plan d4 for 49yo F with AUD with hx withdrawal sz, mood disorder, treated HCV, chronic pancreatic insufficiency, GERD, HTN, cocaine abuse sent in by PCP with hypoK/hypoMg, admitted with EtOH withdrawal EtOH withdrawal - phenobarbital taper [will give 1 extra IM dose now], thiamine, folic acid, Addiction Medicine consulted and declined MAT hypoK - resolved, now slightly high at 5.2; d/c PO KCl hypoMg - replete IV/PO; recheck in AM macrocytic anemia - likely due to EtOH, H+H stable EtOH gastritis - PPI, sucralfate diarrhea hx C diff, currently negative - continue suppressive vancomycin, prn loperamide mood disorder - escitalopram HTN - amlodipine VTE ppx - enoxaparin dispo - eventual home In my clinical judgment, the patient requires continued inpatient hospitalization for the following reasons: inpt phenobarbital taper Total time managing care of this patient today: 35 minutes. Quality Stroke Does the patient have a stroke diagnosis?: No VTE Prior VTE?: No VTE Risk Level:: Medical - moderate - high VTE Device Contraindication: Treatment Not Indicated VTE Drug Contraindication: N/A - Med Ordered
[2025-05-24 15:45] VITALS: BP 121/58; PULSE 57; RESP 16; TEMP 36.4; O2SAT 97
[2025-05-24 23:37] VITALS: BP 128/65; PULSE 63; RESP 18; TEMP 36.7; O2SAT 92
[2025-05-25] MEDS: oxyCODONE HCl Immed Release 5 MG TABLET 10 MG PO ×5 (06:03→23:33)
[2025-05-25 06:33] LABS: Anion Gap 16 (12-20); Blood Urea Nitrogen 6 mg/dL (9-16); Calcium 9.7 mg/dL (8.4-10.2); Carbon Dioxide 29 mmol/L (22-29); Chloride 101 mmol/L (96-108); Creatinine Clr Calc Pharmacy 100.5; Estimated Glomerular Filt Rate > 60; Magnesium 1.5 mg/dL (1.6-2.6); Potassium 4.7 mmol/L (3.3-5.1); Sodium 141 mmol/L (135-145)
[2025-05-25 07:30] VITALS: BP 117/56; PULSE 63; RESP 16; TEMP 36.1; O2SAT 93
[2025-05-25] MEDS: Sucralfate Oral Suspension 1 GM/10 ML ORAL.SUSP PO ×4 (08:07→21:40)
[2025-05-25] MEDS: 0.9 % Sodium Chloride Flush 3 ML SYRINGE IVFLUSH ×3 (08:08→21:59)
[2025-05-25 09:21] VITALS: BP 107/55; PULSE 57; RESP 14; TEMP 36.5; O2SAT 93
--- NOTE | 2025-05-25 12:51 | P.PNIM_ITS ---
Subjective Subjective Date of Service: 05/25/25 Interval History: tremor improved Review of Systems Review of Systems: Yes all other systems are reviewed and are negative Physical Exam 2 Vital Signs: Vital Signs: Last Vital Signs Temp 97.7 F 05/25/25 09:21 Pulse 57 05/25/25 09:21 Resp 14 05/25/25 09:21 BP 107/55 L 05/25/25 09:21 Pulse Ox 93 05/25/25 09:21 O2 Del Method Room Air 05/25/25 09:21 BMI result Body Mass Index 19.2 Gen: in no acute distress, tremor improved HEENT: sclera anicteric, moist mucus membranes Neck: supple Lungs: clear to auscultation bilaterally Heart: regular rate and rhythm, no murmurs Abd: soft, mild tenderness generalized, non-distended Ext: no edema Skin: warm/well-perfused Neuro: alert and oriented x3, no focal findings Psych: appropriate affect Objective Data Active Medications Acetaminophen (Acetaminophen 325 Mg Tablet) 650 mg PO Q6H PRN PRN Reason: Pain, Mild 1-3,fever,headache Amlodipine Besylate (Amlodipine Besylate 5 Mg Tablet) 5 mg PO DAILY [facility]; Protocol Last Admin: 05/25/25 08:07 Dose: 5 mg Documented By: LAMBERTO Calcium Carbonate (Calcium Carbonate 750 Mg Tab.Chew) 750 mg PO Q4H PRN PRN Reason: Heartburn Clonidine HCl (Clonidine Hcl 0.1 Mg Tablet) 0.1 mg PO TID PRN; Protocol PRN Reason: Anxiety Last Admin: 05/24/25 21:16 Dose: 0.1 mg Documented By: MEAGAN Enoxaparin Sodium (Enoxaparin Sodium 40 Mg/0.4 Ml Syringe) 40 mg SUBCUT Q24H [facility] Last Admin: 05/25/25 05:42 Dose: 40 mg Documented By: MEAGAN Escitalopram Oxalate (Escitalopram Oxalate 20 Mg Tablet) 20 mg PO DAILY [facility] Last Admin: 05/25/25 08:08 Dose: 20 mg Documented By: LAMBERTO Folic Acid (Folic Acid 1 Mg Tablet) 1 mg PO DAILY [facility] Last Admin: 05/25/25 08:07 Dose: 1 mg Documented By: LAMBERTO Loperamide HCl (Loperamide Hcl 2 Mg Capsule) 2 mg PO Q4H PRN PRN Reason: Diarrhea Magnesium Hydroxide (Milk Of Magnesia 30 Ml Oral.Susp) 30 ml PO DAILY PRN PRN Reason: Constipation Magnesium Oxide (Magnesium Oxide 400 Mg Tablet) 800 mg PO BID [facility] Last Admin: 05/25/25 08:08 Dose: 800 mg Documented By: LAMBERTO Melatonin (Melatonin 3 Mg Tablet) 6 mg PO BEDTIME PRN PRN Reason: Insomnia Morphine Sulfate (Morphine Sulfate 4 Mg/Ml Cartridge) 4 mg IVPUSH Q4H PRN; Protocol PRN Reason: Pain, Severe (Pain Scale 7-10) Last Admin: 05/25/25 12:28 Dose: 4 mg Documented By: ERICK Omeprazole (Omeprazole 20 Mg Capsule.Dr) 20 mg PO DAILY@0630 [facility] Last Admin: 05/25/25 05:42 Dose: 20 mg Documented By: MEAGAN Ondansetron HCl (Ondansetron Hcl 4 Mg/2 Ml Vial) 4 mg IVPUSH Q8H PRN PRN Reason: Nausea and Vomiting Oxycodone HCl (Oxycodone Hcl Immed Release 5 Mg Tablet) 10 mg PO Q4H PRN PRN Reason: Pain, Moderate(Pain Scale 4-6) Last Admin: 05/25/25 10:58 Dose: 10 mg Documented By: LAMBERTO Pharmacy Consult (Consult Rx Etoh Phenob Im/Po) 1 each MISCELLANE ONCE PRN; Protocol PRN Reason: Consult order Phenobarbital (Phenobarbital 15 Mg Tablet) 15 mg PO DAILY [facility]; Protocol Stop: 05/27/25 09:01 Simethicone (Simethicone 80 Mg Tab.Chew) 80 mg PO QIDWMHS PRN PRN Reason: gas Last Admin: 05/24/25 15:38 Dose: 80 mg Documented By: LUCALVIN Sodium Chloride (0.9 % Sodium Chloride Flush 3 Ml Syringe) [facility] Last Admin: 05/25/25 08:08 Dose: 3 ml Documented By: LAMBERTO Sucralfate (Sucralfate Oral Suspension 1 Gm/10 Ml Oral.Susp) 1 gm PO QID [facility] Last Admin: 05/25/25 12:28 Dose: 1 gm Documented By: ERICK Thiamine HCl (Thiamine Hcl 100 Mg Tablet) 100 mg PO DAILY [facility] Last Admin: 05/25/25 08:08 Dose: 100 mg Documented By: LAMBERTO Trazodone HCl (Trazodone Hcl 100 Mg Tablet) 100 mg PO BEDTIME PRN PRN Reason: Insomnia Last Admin: 05/25/25 00:15 Dose: 100 mg Documented By: MEAGAN Vancomycin HCl (Vancomycin Hcl 125 Mg Capsule) 125 mg PO Q48H [facility] Last Admin: 05/23/25 16:42 Dose: 125 mg Documented By: MARIO Vitamin D (Cholecalciferol (Vitamin D3) 25 Mcg Tablet) 50 mcg PO DAILY [facility] Last Admin: 05/25/25 08:07 Dose: 50 mcg Documented By: LAMBERTO Labs 05/24/25 05:51 05/25/25 05:56 Labs: Laboratory Results - last 24 hr 05/25/25 05:56 Anion Gap 16 Estim Creat Clear Calc 100.5 Estimated GFR > 60 Random Glucose 107 Calcium 9.7 Magnesium 1.5 L Assessment and Plan (1) Alcohol dependence: Status: Acute (2) Acute hypokalemia: Status: Acute (3) Hypomagnesemia: Status: Acute Plan d5 for 49yo F with AUD with hx withdrawal sz, mood disorder, treated HCV, chronic pancreatic insufficiency, GERD, HTN, cocaine abuse sent in by PCP with hypoK/hypoMg, admitted with EtOH withdrawal EtOH withdrawal - continue phenobarbital taper, thiamine, folic acid, Addiction Medicine consulted and declined MAT hypoK - resolved; d/c'ed PO KCl hypoMg - replete IV/PO; recheck in AM macrocytic anemia - likely due to EtOH, H+H stable EtOH gastritis - PPI, sucralfate diarrhea hx C diff, currently negative - continue suppressive vancomycin, prn loperamide mood disorder - escitalopram HTN - amlodipine VTE ppx - enoxaparin dispo - eventual home In my clinical judgment, the patient requires continued inpatient hospitalization for the following reasons: inpt phenobarbital taper Total time managing care of this patient today: 35 minutes. Quality Stroke Does the patient have a stroke diagnosis?: No VTE Prior VTE?: No VTE Risk Level:: Medical - moderate - high VTE Device Contraindication: Treatment Not Indicated VTE Drug Contraindication: N/A - Med Ordered
[2025-05-25 15:50] VITALS: BP 115/54; PULSE 59; RESP 14; TEMP 36.7; O2SAT 92
[2025-05-25 23:39] VITALS: BP 126/64; PULSE 60; RESP 18; TEMP 36.6; O2SAT 92
[2025-05-26 06:17] LABS: Anion Gap 13 (12-20); Blood Urea Nitrogen 9 mg/dL (9-16); Calcium 9.3 mg/dL (8.4-10.2); Carbon Dioxide 34 mmol/L (22-29); Chloride 100 mmol/L (96-108); Creatinine Clr Calc Pharmacy 93.3; Estimated Glomerular Filt Rate > 60; Magnesium 1.5 mg/dL (1.6-2.6); Potassium 4.3 mmol/L (3.3-5.1); Sodium 143 mmol/L (135-145)
[2025-05-26] MEDS: oxyCODONE HCl Immed Release 5 MG TABLET 10 MG PO ×2 (07:37→12:45)
[2025-05-26] MEDS: Sucralfate Oral Suspension 1 GM/10 ML ORAL.SUSP PO ×2 (07:37→12:45)
[2025-05-26] MEDS: 0.9 % Sodium Chloride Flush 3 ML SYRINGE IVFLUSH (07:38)
[2025-05-26 08:00] VITALS: BP 120/60; PULSE 58; RESP 14; TEMP 36.5; O2SAT 100
[2025-05-26] MEDS: Magnesium Sulfate/H2O 2 GM/50 ML PIGGYBACK IV (08:56)
--- NOTE | 2025-05-26 09:33 | HO.PM.IMPN ---
Subjective Subjective Date of Service: 05/26/25 Interval History: tremor improved Review of Systems Review of Systems: Yes all other systems are reviewed and are negative Physical Exam Exam: Exam: General: AO X 3, no acute distress Resp: CTA bilateral, no accessory muscles used CVS: S1,S2,RRR GI: soft, non tender, non distended Neuro: motor grossly intact, alert Psych: appropriate affect, appropriate insight Vital Signs: Vital Signs: Last Vital Signs Temp 97.7 F 05/26/25 08:00 Pulse 58 05/26/25 08:00 Resp 14 05/26/25 08:00 BP 120/60 05/26/25 08:00 Pulse Ox 100 05/26/25 08:00 O2 Del Method Room Air 05/26/25 08:00 BMI result Body Mass Index 19.2 Objective Data Active Medications Acetaminophen (Acetaminophen 325 Mg Tablet) 650 mg PO Q6H PRN PRN Reason: Pain, Mild 1-3,fever,headache Amlodipine Besylate (Amlodipine Besylate 5 Mg Tablet) 5 mg PO DAILY [facility]; Protocol Last Admin: 05/26/25 07:37 Dose: 5 mg Documented By: DANIELE Calcium Carbonate (Calcium Carbonate 750 Mg Tab.Chew) 750 mg PO Q4H PRN PRN Reason: Heartburn Clonidine HCl (Clonidine Hcl 0.1 Mg Tablet) 0.1 mg PO TID PRN; Protocol PRN Reason: Anxiety Last Admin: 05/25/25 23:33 Dose: 0.1 mg Documented By: MEAGAN Enoxaparin Sodium (Enoxaparin Sodium 40 Mg/0.4 Ml Syringe) 40 mg SUBCUT Q24H [facility] Last Admin: 05/26/25 06:12 Dose: 40 mg Documented By: MEAGAN Escitalopram Oxalate (Escitalopram Oxalate 20 Mg Tablet) 20 mg PO DAILY [facility] Last Admin: 05/26/25 07:38 Dose: 20 mg Documented By: DANIELE Folic Acid (Folic Acid 1 Mg Tablet) 1 mg PO DAILY [facility] Last Admin: 05/26/25 07:38 Dose: 1 mg Documented By: DANIELE Magnesium Sulfate (Magnesium Sulfate/H2o) 2 gm in 50 mls @ 25 mls/hr IV ONCE ONE Stop: 05/26/25 10:24 Last Admin: 05/26/25 08:56 Dose: 25 mls/hr Documented By: DANIELE Loperamide HCl (Loperamide Hcl 2 Mg Capsule) 2 mg PO Q4H PRN PRN Reason: Diarrhea Magnesium Hydroxide (Milk Of Magnesia 30 Ml Oral.Susp) 30 ml PO DAILY PRN PRN Reason: Constipation Magnesium Oxide (Magnesium Oxide 400 Mg Tablet) 800 mg PO BID [facility] Last Admin: 05/26/25 07:37 Dose: 800 mg Documented By: DANIELE Melatonin (Melatonin 3 Mg Tablet) 6 mg PO BEDTIME PRN PRN Reason: Insomnia Morphine Sulfate (Morphine Sulfate 4 Mg/Ml Cartridge) 4 mg IVPUSH Q4H PRN; Protocol PRN Reason: Pain, Severe (Pain Scale 7-10) Last Admin: 05/26/25 04:21 Dose: 4 mg Documented By: MEAGAN Omeprazole (Omeprazole 20 Mg Capsule.Dr) 20 mg PO DAILY@0630 [facility] Last Admin: 05/26/25 06:12 Dose: 20 mg Documented By: MEAGAN Ondansetron HCl (Ondansetron Hcl 4 Mg/2 Ml Vial) 4 mg IVPUSH Q8H PRN PRN Reason: Nausea and Vomiting Oxycodone HCl (Oxycodone Hcl Immed Release 5 Mg Tablet) 10 mg PO Q4H PRN PRN Reason: Pain, Moderate(Pain Scale 4-6) Last Admin: 05/26/25 07:37 Dose: 10 mg Documented By: DANIELE Pharmacy Consult (Consult Rx Etoh Phenob Im/Po) 1 each MISCELLANE ONCE PRN; Protocol PRN Reason: Consult order Phenobarbital (Phenobarbital 15 Mg Tablet) 15 mg PO DAILY [facility]; Protocol Stop: 05/27/25 09:01 Last Admin: 05/26/25 07:37 Dose: 15 mg Documented By: DANIELE Simethicone (Simethicone 80 Mg Tab.Chew) 80 mg PO QIDWMHS PRN PRN Reason: gas Last Admin: 05/25/25 21:58 Dose: 80 mg Documented By: MEAGAN Sodium Chloride (0.9 % Sodium Chloride Flush 3 Ml Syringe) [address] [facility] Last Admin: 05/26/25 07:38 Dose: 3 ml Documented By: DANIELE Sucralfate (Sucralfate Oral Suspension 1 Gm/10 Ml Oral.Susp) 1 gm PO QID [facility] Last Admin: 05/26/25 07:37 Dose: 1 gm Documented By: DANIELE Thiamine HCl (Thiamine Hcl 100 Mg Tablet) 100 mg PO DAILY [facility] Last Admin: 05/26/25 07:37 Dose: 100 mg Documented By: DANIELE Trazodone HCl (Trazodone Hcl 100 Mg Tablet) 100 mg PO BEDTIME PRN PRN Reason: Insomnia Last Admin: 05/25/25 23:33 Dose: 100 mg Documented By: MEAGAN Vancomycin HCl (Vancomycin Hcl 125 Mg Capsule) 125 mg PO Q48H [facility] Last Admin: 05/25/25 15:33 Dose: 125 mg Documented By: ERICK Vitamin D (Cholecalciferol (Vitamin D3) 25 Mcg Tablet) 50 mcg PO DAILY [facility] Last Admin: 05/26/25 07:38 Dose: 50 mcg Documented By: DANIELE Labs 05/24/25 05:51 05/26/25 05:17 Labs: Laboratory Results - last 24 hr 05/26/25 05:17 Hold Purple Top SEE NOTE Anion Gap 13 Estim Creat Clear Calc 93.3 Estimated GFR > 60 Random Glucose 103 Calcium 9.3 Magnesium 1.5 L Assessment and Plan (1) Hypomagnesemia: Status: Acute Plan 49F PMH etoh dependence, mood disorder, treated HCV, chronic pancreatic insufficiency, GERD, HTN, cocaine abuse presented with low K, low Mag, abd pain, complicated by withdrawal Alcohol dependence with acute withdrawal Much improved, on phenobarb taper, vitamin supplements, declined MAT Acute recurrent hypokalemia and hypomagnesemia Replace and monitor Microcytic anemia Due to alcohol Stable Alcoholic gastritis Continue PPI and Carafate History of C diff Continue suppressive vancomycin dosing Mood disorder Lexapro Hypertension Amlodipine DVT prophylaxis-Lovenox Full Code reason for continued hospitalization: Hypomagnesemia Quality Stroke Does the patient have a stroke diagnosis?: No VTE Prior VTE?: No VTE Risk Level:: Medical - moderate - high VTE Device Contraindication: Treatment Not Indicated VTE Drug Contraindication: N/A - Med Ordered
--- NOTE | 2025-05-26 10:03 | PC.NURSE ---
pt refusing HFR bed alarm ,pt ciwa , and on seizure precautions , pt steady on feet .
--- NOTE | 2025-05-26 14:21 | PM.DS ---
DS: Providers Provider Date of Service: 05/26/25 Date of admission: 05/21/25 06:18 Date of discharge: 05/26/25 Primary care physician: Ayala Patton MD Consults: 05/21/25 06:18 Addiction Medicine Provider Routine Consulting Provider: Addiction Covering Reason for consultation: alcohol use disorder DS: Diagnosis Discharge Diagnosis (1) Hypomagnesemia: Status: Acute DS: Summary Hospital Course Hospital Course: from initial hpi: 49-year-old female with pertinent history of alcohol use disorder with history of alcohol withdrawal seizures, mood disorder, tobacco use disorder, marijuana use disorder, history of hepatitis-C status post outpatient treatment, chronic pancreatic insufficiency, gastroesophageal reflux disease, hypertension, cocaine use disorder who presents to the emergency department for evaluation and management of low potassium and magnesium. Patient states she got blood work done outpatient at her PCP's office and she was called 1 day prior to presentation to go to the ER for evaluation of low potassium and magnesium. Admits she continues to drink alcohol every day, her last drink being 1 day prior to presentation. Patient also reports of ongoing loose stools, nonbloody and multiple episodes in the day. She is having epigastric pain which is intermittent, nonradiating and without any relieving factors. Does have a history of alcoholic pancreatitis. No fever, chills, chest pain, palpitations, shortness of breath, changes in urinary habits. In the emergency department, patient was found to have hypokalemia and hypomagnesemia. She was initiated on phenobarb protocol. hospital course: Patient was admitted for alcohol dependence with acute withdrawal. She was treated with phenobarbital taper, vitamin supplements and withdrawal resolved. Course complicated by acute recurrent hypokalemia and hypomagnesemia which was replaced. Her maintenance supplement will be increased to 800 mg of magnesium twice daily. For macrocytic anemia due to alcohol use she remained stable. For alcoholic gastritis was continued on PPI and Carafate and was tolerating solids. For history of C diff continued on vancomycin suppressive dosing. For mood disorder was continued on Lexapro. For hypertension continued on amlodipine. Patient is feeling better will be discharged home. Time Attestation Discharge Coordination Time (in mins): 33 Quality: Safe Use of Opioids Does Pt have an Active Cancer Diagnosis on the Problem List?: No Quality: Stroke Does the patient have a stroke diagnosis?: No Physical Exam Exam: Exam: General: AO X 3, no acute distress Resp: CTA bilateral, no accessory muscles used CVS: S1,S2,RRR GI: soft, non tender, non distended Neuro: motor grossly intact, alert Psych: appropriate affect, appropriate insight Vital Signs: Vital Signs: Last Vital Signs Temp 97.7 F 05/26/25 08:00 Pulse 58 05/26/25 08:00 Resp 14 05/26/25 08:00 BP 120/60 05/26/25 08:00 Pulse Ox 100 05/26/25 08:00 O2 Del Method Room Air 05/26/25 08:00 BMI result Body Mass Index 19.2 DS: Data Data Completed and Pending Completed studies during hospitalization [Text1]: Procedures Detoxification Services for Substance Abuse Treatment (01/25/25) Insertion of Infusion Device into Superior Vena Cava, Percutaneous Approach (04/15/25) Ultrasonography of Superior Vena Cava, Guidance (04/15/25) Labs on day of discharge: Laboratory Results - last 24 hr 05/26/25 05:17 Hold Purple Top SEE NOTE Sodium 143 Potassium 4.3 Chloride 100 Carbon Dioxide 34 H Anion Gap 13 BUN 9 Creatinine 0.56 Estim Creat Clear Calc 93.3 Estimated GFR > 60 Random Glucose 103 Calcium 9.3 Magnesium 1.5 L Discharge Plan Discharge Anticipated Discharge Date/Time: 05/26/25 14:19 Patient Disposition: Home, Self-Care Discharge Diagnosis: etoh dependence, lowmag Referrals: Ayala Patton MD [Primary Care Provider, Internal Medicine] - 1 Week Discharge Medications: Continued vancomycin 125 mg capsule 125 mg PO Q48H Rx Instructions: Complex taper: Take one capsule 4 times a day x10 days, then one capsule 3 times a day x7 days, one capsule twice a day x7 days, one capsule every other day x7 days. After taper, take one capsule every Mon/Wed/Fri indefinitely. pantoprazole 40 mg tablet,delayed release (DR/EC) 40 mg PO DAILY@0630 folic acid 1 mg tablet 1 mg PO DAILY cholecalciferol (vitamin D3) 50 mcg (2,000 unit) tablet 50 mcg PO DAILY clonidine HCl 0.1 mg tablet 0.1 mg PO TID PRN (Reason: Anxiety) citalopram 40 mg tablet 40 mg PO DAILY amlodipine 5 mg Tablet 5 mg PO DAILY Qty: 90 0RF Protocol: Hold for SBP< HOLD for SBP < : 90 thiamine HCl (vitamin B1) 100 mg tablet 100 mg PO DAILY trazodone 100 mg tablet 100 mg PO BEDTIME PRN (Reason: insomnia) sucralfate 100 mg/mL suspension 10 ml PO QID Changed magnesium oxide 400 mg magnesium tablet 800 mg PO BID Qty: 360 0RF Rx Instructions: Take one capsule twice a day Discharge Orders: Discharge Order (Routine); Ordered 05/26/25 Ordered By: Carlos Lerma Diet: Advance to usual diet Activity on Discharge: As tolerated Stand Alone Forms: Patient Portal Discharge page Print Language: Surinamese Other Ambulatory Orders: Basic Metabolic Panel (Routine) Timeframe: 1 Week Facility: [facility] - Location: Laboratory Ordered By: Carlos Lerma Magnesium (Routine) Timeframe: 1 Week Facility: [facility] - Location: Laboratory Ordered By: Carlos Lerma Care Plan Goals: recovery Health Concerns: etoh Plan of Treatment: continue mag supplement, avoid etoh Assessment: see above
--- NOTE | 2025-05-26 14:52 | MHC.CM.PN ---
pt dcd home self care
== END 2025-05-26 15:29 | disposition home or self-care (01) | DRG 425 ==
LOC: HO.ED 05-21 06:13 → HO.EDOVER 05-21 06:23 → HO.S3 05-21 14:03
PROVIDERS: Family Medicine; Hospitalist; Admitting Provider Student in an Organized Health Care Education/Training Program; Emergency Provider Emergency Medicine; PCP Internal Medicine; Visit Provider Internal Medicine
DX: E87.6 Hypokalemia (principal); K86.89 Other specified diseases of pancreas; E83.42 Hypomagnesemia; F10.239 Alcohol dependence with withdrawal, unspecified; K29.20 Alcoholic gastritis without bleeding; R63.6 Underweight; D53.9 Nutritional anemia, unspecified; Z68.1 Body mass index [BMI] 19.9 or less, adult; Y90.6 Blood alcohol level of 120-199 mg/100 ml; F39 Unspecified mood [affective] disorder; R19.7 Diarrhea, unspecified; Z86.19 Personal history of other infectious and parasitic diseases; Z79.899 Other long term (current) drug therapy
CPT/HCPCS: 36415; 71046; 74177; 80048; 80051; 80053; 80307; 82550; 82607; 82746; 83690; 83735; 84132; 84484; 85025; 85027; 86140; 87493; 87507; 93005; 99285; J1650; J2270; J2470; J2560; J3411; J3475; J3480; Q9967; S9485

== ENCOUNTER → 2025-05-20 23:01 | Outpatient (BNV) | payer OTHER, SELFPAY | PROVIDERS: Admitting Provider Student in an Organized Health Care Education/Training Program; Emergency Provider Emergency Medicine; PCP Internal Medicine; Visit Provider Internal Medicine Cardiovascular Disease | DX: R94.31 Abnormal electrocardiogram [ECG] [EKG] (principal); R79.9 Abnormal finding of blood chemistry, unspecified | CPT/HCPCS: 93010 ==

== ENCOUNTER → 2025-05-21 02:42 | Outpatient (BNV) | payer OTHER, SELFPAY | PROVIDERS: Emergency Provider Emergency Medicine; PCP Internal Medicine; Visit Provider General Practice | DX: K76.0 Fatty (change of) liver, not elsewhere classified (principal); R05.9 Cough, unspecified | CPT/HCPCS: 71046; 74177 ==

== ENCOUNTER → 2025-05-21 06:18 | Outpatient (BNV) | payer OTHER, SELFPAY | PROVIDERS: Admitting Provider Student in an Organized Health Care Education/Training Program; Emergency Provider Emergency Medicine; PCP Internal Medicine; Visit Provider Student in an Organized Health Care Education/Training Program | DX: F10.29 Alcohol dependence with unspecified alcohol-induced disorder (principal); E87.6 Hypokalemia; E83.42 Hypomagnesemia | CPT/HCPCS: 99223; 99232; 99239; 99499 ==

== ENCOUNTER 2025-09-14 21:49 | Emergency (ER) | payer OTHER, SELFPAY ==
[2025-09-14 22:01] VITALS: BP 128/77; PULSE 106; RESP 20; TEMP 36.7; O2SAT 99; BMI 18.5
[2025-09-14 22:15] LABS: MANUAL DIFF FLAG NO
[2025-09-14 22:16] LABS: Hematocrit 42.1 % (37.0-47.0); Hemoglobin 14.9 g/dl (12.0-16.0); Imm Gran Abs Auto 0.04 X10*3/uL (0.00-0.03); Imm Gran Pct Auto 0.4 % (0.0-0.4); Lymphocytes Absolute Auto 3.2 X10*3/uL (1.2-4.9); Mean Corpuscular HGB Conc 35.4 g/dl (31.0-35.0); Mean Corpuscular Hemoglobin 35.5 pg (27.0-33.0); Mean Corpuscular Volume 100.2 fL (80.0-98.0); NRBC Abs Auto 0.000 X10*3/uL (0.0-0.012); NRBC Pct Auto 0.0 /100WBC (0.0-0.2); Platelet Count 215 X10*3/uL (160-400); Red Blood Count 4.20 X10*6/uL (4.20-5.50); White Blood Count 10.6 X10*3/uL (4.8-10.8)
[2025-09-14 22:35] LABS: Alanine Aminotransferase 59 U/L (0-31); Albumin Level 4.3 g/dL (3.5-5.0); Alkaline Phosphatase 238 U/L (39-117); Anion Gap 15 (12-20); Aspartate Amino Transferase 154 U/L (5-31); Blood Urea Nitrogen 6 mg/dL (9-16); Calcium 9.5 mg/dL (8.4-10.2); Carbon Dioxide 27 mmol/L (22-29); Chloride 105 mmol/L (96-108); Creatinine Clr Calc Pharmacy 98.9; Estimated Glomerular Filt Rate > 60; Lipase 45 U/L (8-78); Magnesium 1.6 mg/dL (1.6-2.6); Potassium 2.5 mmol/L (3.3-5.1); Sodium 144 mmol/L (135-145); Total Protein 7.6 g/dL (6.5-8.0)
[2025-09-14 23:03] VITALS: BP 115/75; PULSE 82; RESP 16; O2SAT 98
--- NOTE | 2025-09-15 00:26 | ED.GENADULT ---
HPI - General Adult General Chief complaint: Recheck/Abnormal Lab/Rx Stated complaint: Abnormal Labs Time Seen by Provider: 09/15/25 00:23 Source: patient Mode of arrival: ambulatory Limitations: no limitations History of Present Illness ED Provider: [place] PASTRANA HPI narrative: The patient is a 50-year-old female with a history of chronic alcohol dependence still drinking 6 drinks daily, presenting to the ED for evaluation of abnormal labs. Patient reports she was contacted by her PCP who reported a low magnesium and potassium, patient reportedly was instructed to come to the ED for intervention. The patient reports for the past 3 months she has been experiencing chronic left leg pain, which radiates to the left foot, which she attributes to her low potassium. The patient denies any recent injury, denies history of diabetes. Related Data Home Medications ?Medication ?Instructions ?Recorded ?Confirmed cholecalciferol (vitamin D3) 50 50 mcg PO DAILY 11/01/23 05/21/25 mcg (2,000 unit) tablet folic acid 1 mg tablet 1 mg PO DAILY 11/01/23 05/21/25 pantoprazole 40 mg tablet,delayed 40 mg PO DAILY@0630 11/01/23 05/21/25 release clonidine HCl 0.1 mg tablet 0.1 mg PO TID PRN Anxiety 12/10/23 05/21/25 citalopram 40 mg tablet 40 mg PO DAILY 02/26/24 05/21/25 thiamine HCl (vitamin B1) 100 mg 100 mg PO DAILY 09/26/24 05/21/25 tablet trazodone 100 mg tablet 100 mg PO BEDTIME PRN insomnia 10/27/24 05/21/25 sucralfate 100 mg/mL oral 10 ml PO QID 01/26/25 05/21/25 suspension vancomycin 125 mg capsule 125 mg PO Q48H 05/21/25 05/21/25 Previous Rx's ?Medication ?Instructions ?Recorded amlodipine 5 mg tablet 5 mg PO DAILY #90 tabs 06/11/24 magnesium oxide 800 mg (2 x 400 mg magnesium) PO 05/26/25 BID #360 tabs Allergies Allergy/AdvReac Type Severity Reaction Status Date / Time No Known Allergies Allergy Verified 09/14/25 22:03 Review of Systems Review of Systems: Yes all other systems are reviewed and are negative PMFSH Past Medical History Medical History Alcohol use disorder, severe, dependence Clostridium difficile colitis Hypertension Alcohol use disorder Pancreatic insufficiency Gastroesophageal reflux disease Essential hypertension Mood disorder Cannabis use disorder Hepatitis C Tobacco use disorder Surgical History H/O colonoscopy (~01/2023) Social History Social History Household Members: Significant Other Household Members Other:: son Housing: Apartment Do you presently have visiting nurse or other home services: No Alcohol intake: current Alcohol intake frequency: 3 or more drinks per day Alcohol type: hard liquor Comment: pt refusing alarm Patient Tobacco Use Status: Current everyday Tobacco user Tobacco use type: Cigarette Cigarette Packs Per Day: 0.5 Cigarettes Per Day: 10.0 Smoked in Last 30 Days: Yes e-Cigarette/Vaping Use: Currently Using Second Hand Smoke Exposure: No Substance Use Type: Crack/Cocaine and Marijuana Advance Directives: Yes Advance Directives on File: Yes Advance Directives Date on File: 12/10/23 Do you have a plan to hurt others: No Plan service: No Physical Exam ED Vital Signs: Vital Signs - 24 hr 09/14/25 22:01 09/14/25 23:03 09/15/25 00:52 Temperature 98.0 F 98.3 F Pulse Rate 106 H 82 80 Respiratory Rate 20 16 17 Blood Pressure 128/77 115/75 134/82 Pulse Oximetry 99 98 95 Oxygen Delivery Method Room Air Room Air Room Air 09/15/25 02:53 09/15/25 04:58 Temperature 97.7 F Pulse Rate 84 78 Respiratory Rate 13 16 Blood Pressure 157/88 H 129/85 Pulse Oximetry 97 97 Oxygen Delivery Method Room Air Room Air BMI result Body Mass Index 18.5 CONSTITUTIONAL: The patient appears non-toxic, well nourished and in no acute distress. Vital signs as documented. HEAD: Atraumatic, normocephalic. EYES: EOMs grossly intact, pupils equal, conjunctiva clear, no exudate. ENT: Nares patent, no discharge. Airway patent, no audible stridor, visible mucosa is pink and moist without noted lesions. NECK: Trachea is midline, no obvious masses or gross abnormalities. CHEST: Symmetric movement, normal appearance. LUNGS: LS present and CTAB, no w/r/r. Non-labored work of breathing. CARDIAC: Regular Rhythm, S1/S2 appreciated, no murmurs, rubs or gallops. ABDOMEN: Abdomen soft and non-tender x4 quadrants, no palpable masses or organomegaly. : Deferred. EXTREMITIES: Normal tone, moves all extremities spontaneously without reported pain. No obvious acute injury or deformity noted. NEURO: Alert and oriented x3, CN II-XII appear grossly intact. Mild tremor, restlessness, otherwise cerebellar functioning is grossly intact. No obvious sensory or motor deficits. Speech clear and appropriate. PSYCH: normal affect, appropriate eye contact, fluid speech, with appropriate response to questioning. No reported suicidality or homicidality. SKIN: Warm, dry, color appropriate, normal turgor. No rashes noted. Medications Administered Discontinued Medications Generic Name Dose Route Start Last Admin Trade Name Freq PRN Reason Stop Dose Admin Diazepam 10 mg 09/15/25 00:47 09/15/25 00:55 Diazepam 10 Mg/2 Ml Cartridge IVPUSH 09/15/25 00:48 10 mg STAT STA Administration Diazepam 10 mg 09/15/25 03:01 09/15/25 04:00 Diazepam 10 Mg/2 Ml Cartridge IVPUSH 09/15/25 03:02 10 mg STAT STA Administration Potassium Chloride 10 meq in 100 mls @ 100 mls/hr 09/15/25 00:30 09/15/25 05:15 Potassium Chloride/H20 IV 09/15/25 04:29 Infused Q1H SAMANTHA Infusion Ketorolac Tromethamine 15 mg 09/15/25 03:01 09/15/25 03:17 Ketorolac Tromethamine 15 Mg/Ml Vial IVPUSH 09/15/25 03:02 Not Given ONCE ONE Potassium Chloride 40 meq 09/15/25 00:27 09/15/25 00:36 Potassium Chloride Er 20 Meq Tab.Er.Prt PO 09/15/25 00:28 40 meq ONCE ONE Administration Medical Decision Making Medical Decision Making [facility] Narrative: 12:36 AM 09/15/2025 (Vishal PASTRANA): The patient is a 50-year-old female with a history of chronic alcohol dependence still drinking 6 drinks daily, presenting to the ED for evaluation of abnormal labs. Patient reports she was contacted by her PCP who reported a low magnesium and potassium, patient reportedly was instructed to come to the ED for intervention. The patient reports for the past 3 months she has been experiencing chronic left leg pain, which radiates to the left foot, which she attributes to her low potassium. The patient denies any recent injury, denies history of diabetes. The patient in the ED is afebrile, normotensive, without tachycardia or tachypnea. On exam patient appears restless and mildly tremulous, reports last drink was approximately 4 hours ago. The patient is reporting subjective anxiety and requesting intervention. The patient reports she does have a history of an alcohol withdrawal seizure many years ago. The patient's left leg and foot show no erythema, swelling, induration, fluctuance, open injury, or other acute abnormality, there is no calf tenderness. Distal CSM intact, 2+ DP/PT pulses. Patient's laboratory evaluation demonstrates no leukocytosis, anemia, or AMRIT. The patient's potassium is markedly low at 2.5, magnesium is normal at 1.6. The patient's LFTs are consistent with known alcoholism. Patient's lipase is normal. The patient will be treated with p.o. and IV potassium, and we will treat withdrawal symptoms with IV valium. 5:42 AM 09/15/2025 (Vishal PASTRANA): Patient has completed her potassium infusion, patient will be discharged to follow up with PCP for repeat laboratory testing. Admission/Observation Consideration of admission/observation: Escalation of care including admission/observation considered Lab Data MDM Lab Attestation statement: I reviewed the patient's lab results. 09/14/25 22:11 09/14/25 22:11 Labs: Lab Results 09/14/25 Range/Units 22:11 WBC 10.6 (4.8-10.8) X10*3/uL RBC 4.20 (4.20-5.50) X10*6/uL Hgb 14.9 D (12.0-16.0) g/dl Hct 42.1 (37.0-47.0) % MCV 100.2 H (80.0-98.0) fL MCH 35.5 H (27.0-33.0) pg MCHC 35.4 H (31.0-35.0) g/dl RDW 13.2 (11.0-16.0) % Plt Count 215 D (160-400) X10*3/uL MPV 9.6 (9.4-12.3) fL Immature Gran % (Auto) 0.4 (0.0-0.4) % Neut % (Auto) 63.5 (45-73) % Lymph % (Auto) 30.0 (20-40) % [place] % (Auto) 5.0 (2-11) % Eos % (Auto) 0.4 (0-4) % Baso % (Auto) 0.7 (0-2) % Lymph # (Auto) 3.2 (1.2-4.9) X10*3/uL [place] # (Auto) 0.5 (0.1-1.2) X10*3/uL Eos # (Auto) 0.0 (0.0-0.4) X10*3/uL Baso # (Auto) 0.1 (0.0-0.2) X10*3/uL Abs Immat Gran (auto) 0.04 H (0.00-0.03) X10*3/uL Absolute Neuts (auto) 6.7 (2.0-8.3) x10*3/uL Absolute Nucleated RBC 0.000 (0.0-0.012) X10*3/uL Nucleated RBC % (auto) 0.0 (0.0-0.2) /100WBC Sodium 144 (135-145) mmol/L Potassium 2.5 L* D (3.3-5.1) mmol/L Chloride 105 (96-108) mmol/L Carbon Dioxide 27 (22-29) mmol/L Anion Gap 15 (12-20) BUN 6 L (9-16) mg/dL Creatinine 0.52 (0.5-1.4) mg/dL Estim Creat Clear Calc 98.9 Estimated GFR > 60 Random Glucose 95 (60-115) mg/dL Calcium 9.5 (8.4-10.2) mg/dL Magnesium 1.6 (1.6-2.6) mg/dL Total Bilirubin 0.7 (0.0-1.0) mg/dL AST 154 H (5-31) U/L ALT 59 H (0-31) U/L Alkaline Phosphatase 238 H (39-117) U/L Total Protein 7.6 (6.5-8.0) g/dL Albumin 4.3 (3.5-5.0) g/dL Lipase 45 (8-78) U/L External Record Review External record reviewed: Outpatient record and Prior outpatient labs Discharge Plan Discharge Clinical Impression: Chronic hypokalemia Alcohol dependence Qualifiers: Substance use status: uncomplicated Qualified Code(s): F10.20 - Alcohol dependence, uncomplicated Patient Disposition: Home, Self-Care Instructions: Potassium Content of Foods List (ED), Hypokalemia (ED), Alcohol Dependence (ED) Additional Instructions: Thank you for choosing [facility]'s Emergency Department for your care today. Thankfully your magnesium level today were normal. Your potassium level however was low, as your outpatient labs also demonstrated. Your potassium was repleted with both IV and oral potassium. At this time there is no indication for admission to the hospital or continued ED observation, and it is safe to discharge you home. Please read the attached information regarding foods which are rich in potassium. Please attempt to decrease your alcohol intake as excessive alcohol use can increase your risk for recurrent electrolyte abnormalities. Please follow up with your primary care physician for re-evaluation, additional management of your symptoms, and continued preventative care. If you do not have a primary care physician, please call the [facility] at [phone] to establish a new primary care physician. While waiting to establish your new primary care physician, you can call our [facility] at [phone] for non-emergency needs. Please return to the emergency department if you develop a severe or sudden change in your symptoms, a fever over 100.4 that does not improve with Tylenol or Ibuprofen, recurrent vomiting, or any other new or worsening symptoms or concerns. Prescriptions: No Action vancomycin 125 mg capsule 125 mg PO Q48H Rx Instructions: Complex taper: Take one capsule 4 times a day x10 days, then one capsule 3 times a day x7 days, one capsule twice a day x7 days, one capsule every other day x7 days. After taper, take one capsule every Mon/Wed/Fri indefinitely. magnesium oxide 400 mg magnesium tablet 800 mg PO BID Qty: 360 0RF Rx Instructions: Take one capsule twice a day pantoprazole 40 mg tablet,delayed release (DR/EC) 40 mg PO DAILY@0630 folic acid 1 mg tablet 1 mg PO DAILY cholecalciferol (vitamin D3) 50 mcg (2,000 unit) tablet 50 mcg PO DAILY clonidine HCl 0.1 mg tablet 0.1 mg PO TID PRN (Reason: Anxiety) citalopram 40 mg tablet 40 mg PO DAILY amlodipine 5 mg Tablet 5 mg PO DAILY Qty: 90 0RF Protocol: Hold for SBP< HOLD for SBP < : 90 thiamine HCl (vitamin B1) 100 mg tablet 100 mg PO DAILY trazodone 100 mg tablet 100 mg PO BEDTIME PRN (Reason: insomnia) sucralfate 100 mg/mL suspension 10 ml PO QID Referrals: Ayala Patton MD [Primary Care Provider, Internal Medicine] Clinical Impression: Alcohol dependence; Chronic hypokalemia Print Language: Tajik
[2025-09-15] MEDS: Potassium Chloride ER 20 MEQ TAB.ER.PRT 40 MEQ PO (00:36)
[2025-09-15] MEDS: Potassium Chloride/H20 10 MEQ/100 ML PIGGYBACK 100 MEQ IV ×4 (00:37→04:28)
[2025-09-15 00:52] VITALS: BP 134/82; PULSE 80; RESP 17; TEMP 36.8; O2SAT 95
[2025-09-15] MEDS: diazePAM 10 MG/2 ML CARTRIDGE IVPUSH ×2 (00:55→04:00)
[2025-09-15 02:53] VITALS: BP 157/88; PULSE 84; RESP 13; O2SAT 97
[2025-09-15 04:58] VITALS: BP 129/85; PULSE 78; RESP 16; TEMP 36.5; O2SAT 97
--- NOTE | 2025-09-15 05:15 | PC.NURSE ---
Pt reporting pain at IV site while 4th bag of potassium infusing. Infusion, paused and pt continues to report pain in IV when flushed with NS. No swelling or redness at IV site. VICTORIANO Valentine, notified. Per provider, Ok to discontinue last bag of potassium, Pt received 50 mL from 4th bag.
[2025-09-15 06:05] VITALS: BP 146/84; PULSE 83; RESP 14; TEMP 36.6; O2SAT 97
== END 2025-09-15 06:11 | disposition home or self-care (01) ==
PROVIDERS: Emergency Provider Emergency Medicine; PCP Internal Medicine
DX: E87.6 Hypokalemia (principal); F10.20 Alcohol dependence, uncomplicated; M79.605 Pain in left leg; M79.672 Pain in left foot; R79.89 Other specified abnormal findings of blood chemistry; F17.210 Nicotine dependence, cigarettes, uncomplicated; F14.90 Cocaine use, unspecified, uncomplicated; F12.90 Cannabis use, unspecified, uncomplicated; Z79.899 Other long term (current) drug therapy; Y90.9 Presence of alcohol in blood, level not specified
CPT/HCPCS: 36415; 80053; 83690; 83735; 85025; 96365; 96375; 96376; 99284; J3360; J3480